=== PATIENT | female | born 2000 | race Caucasian/White ===

== ENCOUNTER → 2024-05-29 | Outpatient (CLI) | payer MEDICAID, SELFPAY ==
[2024-06-01 22:06] LABS: Chlamydia By Nucleic Acid AMP Negative (Negative); Gonococcus By Nucleic Acid AMP Negative (Negative)
== END | disposition home or self-care (01) ==
PROVIDERS: Referring Provider Registered Nurse; Visit Provider Registered Nurse
DX: Z34.00 Encounter for supervision of normal first pregnancy, unspecified trimester (principal)
CPT/HCPCS: 87077; 87086; 87088; 87186; 87491; 87591

== ENCOUNTER → 2024-06-19 | Outpatient (CLI) | payer MEDICAID, SELFPAY ==
[2024-06-19 15:12] LABS: Absolute Lymphocyte Count 3.09 X10^3/uL (0.83-4.51); Absolute Neutrophil Count 12.1 X10^3/uL (2.0-7.7); Basophil# 0.06 X10^3/uL; Basophil% 0.4 % (0-1); Eosinophil# 0.24 X10^3/uL; Eosinophils% 1.4 % (0-5); Hematocrit 39.3 % (37-47); Hemoglobin 12.9 g/dL (12.0-15.0); Lymphocyte # 3.09 X10^3/ul (0.83-4.51); Lymphocyte % 18.1 % (19-41); Mean Corp Hgb Conc 32.8 g/dL (32-36); Mean Corpuscular Hgb 29.7 pg (27.0-32.0); Mean Corpuscular Volume 90.6 fL (81-99); Mean Platelet Vol. 11.5 fl (6.2-12.0); Monocyte# 1.47 X10^3/uL; Monocyte% 8.6 % (0-10); NRBC Flagged by Analyzer 0 % (0-5); Neutrophil # 12.08 X10^3/uL (2.7-7.7); Platelet Count 424 K/mm3 (150-450); RBC Distribution Width CV 13.5 % (11.6-14.6); RBC Distribution Width SD 45.9 fl (35.1-43.9); Red Blood Count 4.34 M/mm3 (4.2-5.4)
[2024-06-19 16:06] LABS: HIV - WCH Non-Reactive (Nonreactive); Hepatitis B Surface Antigen Non-Reactive (Nonreactive); Hepatitis C Antibody Non-Reactive (Nonreactive); Rubella IgG Non-Reactive (Nonreactive); Syphilis Antibodies Non-reactive
== END | disposition home or self-care (01) ==
LOC: BWCLAB 13:31
PROVIDERS: Referring Provider Registered Nurse; Visit Provider Registered Nurse
DX: Z34.00 Encounter for supervision of normal first pregnancy, unspecified trimester (principal)
CPT/HCPCS: 36415; 85025; 86703; 86762; 86780; 86803; 86850; 86900; 86901; 87340

== ENCOUNTER 2024-09-22 16:45 | Observation (INO) | payer MEDICAID, SELFPAY ==
[2024-09-22 16:37] VITALS: BP 109/61; PULSE 82; RESP 14; TEMP 37.2; O2SAT 100
[2024-09-22 17:21] VITALS: BMI 22.8
--- NOTE | 2024-09-22 17:35 | HP.PCM.OB_ITS ---
HPI - General General Date of Admission: 09/22/24 HPI Narrative AIMEE REDDY, is a 24 y/o @ 24 weeks 5 days who presents to [facility] from [facility] with the diagnosis of acute pyelonephritis in . This was based on an elevated WBC count, 4+ bacteria in the urine, and fevers at home. She also has lower back pain and right upper back pain. She denies nausea, vomiting, diarrhea, shortness of breath, or chest pain. Maternal Data Information TERESITA Calculator Estimated Delivery Date Method Current WG Current Estimate 01/07/25 Ultrasound #1 24w 5d Other Estimates 12/29/24 LMP (Certain) 26w 0d PFSH PFSH Home Medications ?Medication ?Instructions ?Recorded ?Last Taken ?Type PNV 153-FA 400 mcg-om3 35 mg-dha tab PO 04/25 07/17 Unknown History 25 mg-epa 5 mg-fish oil chew tablet ondansetron 4 mg disintegrating 4 mg PO Q4H PRN nausea and 07/01/24 09/20/24 Rx tablet vomiting #60 tabs acetaminophen 325 mg tablet 650 mg PO Q4H PRN pain 07/1809/22/24 06:00 History (Tylenol) Allergy/AdvReac Type Severity Reaction Status Date / Time No Known Allergies Allergy Verified 09/22/24 16:43 Surgical History History of splenectomy Social History adopted: No household members: family current occupational status: employed current occupation: [employer] pets and animals: Yes pets and animals: dog(s) history of recent travel: No sexually active: Yes Smoking Status: Former smoker Electronic Cigarette Use: with nicotine alcohol intake: current alcohol intake frequency: a few times a month details: not while substance use type: does not use well-balanced diet: daily or most days caffeine: No eating out: 1-3 times/week during the past year weight has: remained stable what type of physical activity do you participate in: none ana m/moravian: Episcopal seatbelt use: always do you feel safe at home: Yes additional social history: [place]- [employer] History 1 Elective abortions Hx Para 0 Spontaneous abortions Hx # Term Pregnancies Ectopic pregnancies Hx # Pregnancies Multiple births # of living children Visit Details Expected Delivery Route/Plan Labor Preferences- CB/BF classes: enc labor support person: [] labor intervention preferences: [] pain management options preferred: [] cut cord/dad catch: [] : [] PP control planned: [] discussed possible routes of delivery and associated risks: [] special requests: [] Plans Covid status: [] Flu vaccine: [] Tdap vaccine: [] Rhogam: [] LARC form signed: [] Problem list reviewed and updated with the most current plan of care details and appropriate orders placed. Relevant counseling for the gestational age provided. Continue routine care and follow up unless otherwise noted in visit notes/problem list details OB Flowsheet Initial Weight: 125 lb Date -?-?-?-?-?-?-?-?-?-?-?-?- EGA Weight BP Urine Prot -?-?-?-?-?-?-?-?-?-?-?-?- Glucose FHR FuHt Pres Dilation -?-?-?-?-?-?-?-?-?-?-?-?- Effaced St Visit Note 05/29/24 -?-?-?-?-?-?-?-?-?-?-?-?- 8w 1d 125 lb 4 oz (+4 oz) 127/76 -?-?-?-?-?-?-?-?-?-?-?-?- 166 -?-?-?-?-?-?-?-?-?-?-?-?- LC CRL 1.62 not con with LMP. LMP changed to 01/07/2025. desires nipt/carrier screening. will return in 2 weeks. 07/01/24 -?-?-?-?--?-?-?-?-?-?-?-?- 12w 6d 124 lb 6 oz (-10 oz) 107/61 Negative -?-?-?-?-?-?-?-?-?-?-?-?- Negative 145 -?-?-?-?-?-?-?-?-?-?-?-?- MH-No VB. Nausea problematic. Gayle sent. 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 Br US confirm FHT 07/28/24 -?-?-?-?-?-?-?-?-?-?-?-?- 16w 5d 127 lb (+2 lb) 112/70 Negative -?-?-?-?-?-?-?-?-?-?-?-?- Negative 142 -?-?-?-?-?-?-?-?-?-?-?-?- JV- no complaint s today other than FOB needs labs for CF. 08/26/24 -?-?-?-?-?-?-?-?-?-?-?-?- 20w 6d 129 lb (+4 lb) 108/62 Negative -?-?-?-?-?-?-?-?-?-?-?-?- Negative 135 -?-?-?-?-?-?-?-?-?-?-?-?- SM- no vb lof go od fm no reuglar ctx 09/22/24 -?-?-?-?-?-?-?-?-?-?-?-?- 24w 5d 137 lb 4 oz (+12 lb 4 oz) 98/60 Negative -?-?-?-?-?-?-?-?-?-?-?-?- Negative 138 -?-?-?-?-?-?-?-?-?-?-?-?- MH-No VB, LOF. G ood FM. ROS Constitutional Constitutional: Denies change in weight, fatigue, fever(s), headache(s), poor appetite or weakness Eyes Eyes: Denies blurry vision, change in vision, seeing flashes or spots in vision ENT HEENT: Denies dizziness, headache(s), loss taste/smell or sore throat Cardiovascular Cardiovascular: Denies chest pain, dizziness, dyspnea, irregular heart rhythm, leg edema, palpitations, rapid heart rate or vomiting Respiratory/Chest Respiratory/Chest: Denies chest tightness, cough, dyspnea or breast pain Gastrointestinal Gastrointestinal: Denies abdominal pain, anorexia, constipation, cramping, diarrhea, hemorrhoids, vomiting or weight changes Genitourinary Genitourinary: Denies dysuria, flank pain, genital lesions, genital pain, urinary frequency or urinary urgency Musculoskeletal Musculoskeletal: Denies back pain, difficulty walking, joint pain, limited range of motion, muscle cramps or numbness Integumentary Integumentary: Denies lesions or unusual bruising Neurologic Neurologic: Denies abnormal movements, abnormal speech, dizziness, numbness, seizure-like activity or syncope Psychiatric Psychiatric: Denies anxiety, behavioral changes, change in appetite, change in libido, cognitive impairment, confusion, depression, difficulty concentrating, hallucinations or suicidal thoughts Endocrine Endocrinology: Denies excessive sweating, polydipsia or polyuria Hematologic/Lymphatic Hematologic/Lymphatic: Denies easy bleeding, easy bruising or lymphadenopathy Allergic/Immunologic Allergic/Immunologic: Denies itchy eyes, lip swelling, seasonal rhinorrhea, rhinitis, throat swelling, tongue swelling, eczemia, wheezing or asthma Vital Signs Vital Signs Vital Signs: 09/22/24 16:37 09/22/24 16:37 Pulse Rate 82 Blood Pressure 109/61 BP Systolic 109 BP Diastolic 61 Physical Exam Const alert, oriented x3, no apparent distress and healthy appearing General Appearance: cooperative; Negative for anxious HEENT normocephalic Face and Sinus: normal facial exam Eyes EOMs intact bilaterally and no scleral icterus General Eye: normal appearance of both eyes Neck full ROM and supple Lymph Lymphatic: no lymphadenopathy noted Resp normal respiratory effort Effort and Inspection: able to speak in complete sentences GI soft to palpation and non-tender Inspection: gravid Palpation: soft; Negative for tender Back/Spine General Back: CVA tenderness right and warmth Extremity normal to inspection, full ROM and no clubbing, cyanosis or edema General Extremity: Negative for calf tenderness or edema Skin Lesions: no lesions Rashes: no rashes Psych mental status grossly normal Labs Labs Labs: Blood Type O POSITIVE Antibody Screen NEGATIVE Hct 39.3 % (37-47) Hgb 12.9 g/dL (12.0-15.0) Syphilis Total Ab Non-reactive Rubella IgG Antibody Non-Reactive (Nonreactive) Hep Bs Antigen Non-Reactive (Nonreactive) Hepatitis C Antibody Non-Reactive (Nonreactive) Chlamydia DNA (CONOR) Negative (Negative) N.gonorrhoeae DNA (CONOR) Negative (Negative) HIV 1&2 Antibody Non-Reactive (Nonreactive) Assessment & Plan (1) Pyelonephritis affecting : PLAN: continue rochephin 1 gram q 24 hrs unsure if urine culture was sent at [facility] - will order repeat rpt cbc in am pyelo in increases risks for ARDS and labor - continuous monitoring ordered. tylenol for fever and headache flexeril for back pain goal is to remain afebrile for 24 hours and see a lowering in the WBC count in the am. If both happen and pain subsides will discharge to home tomorrow evening. q 4 hr vitals normal diet bathroom privileges scds (2) Cystic fibrosis carrier: COMMENT: FOB neg. 06/04 (3) Supervision of normal first : QUALIFIERS: Trimester: second trimester Qualified Code(s): Z34.02 - Encounter for supervision of normal first , second trimester COMMENT: [id number], TERESITA 12/29/24, girl Guerrero Gutierrez (4) : QUALIFIERS: Weeks of gestation: 20 weeks Qualified Code(s): Z3A.20 - 20 weeks gestation of COMMENT: LR NIPT Carrier Neg. Carrier for Cystic Fibrosis;FOB Karen Merino negative
[2024-09-22 18:00] VITALS: TEMP 37.9
[2024-09-22] MEDS: Acetaminophen 500 MG Tablet 1000 MG PO (18:00)
[2024-09-22] MEDS: Lactated Ringers 1,000 ML 150 ML IV (18:01)
[2024-09-22 19:58] VITALS: BP 109/59; PULSE 83
[2024-09-22 19:59] VITALS: PULSE 86; O2SAT 97
[2024-09-22 20:00] VITALS: TEMP 37.2
[2024-09-22] MEDS: cycloBENZAPRine HCl 5 MG TABLET PO (20:17)
[2024-09-23] VITALS (9 sets, daily range): BP systolic 77–109; BP diastolic 39–60; PULSE 67–80; RESP 12–16; TEMP 36.4–37.4; O2SAT 100
[2024-09-23] MEDS: Lactated Ringers 1,000 ML 150 ML IV ×2 (00:24→11:49)
[2024-09-23 06:21] LABS: Basophil# 0.06 X10^3/uL; Eosinophil# 0.28 X10^3/uL; Hemoglobin 9.4 g/dL (12.0-15.0); Lymphocyte # 2.88 X10^3/ul (0.83-4.51); Mean Corp Hgb Conc 33.6 g/dL (32-36); Mean Corpuscular Hgb 30.7 pg (27.0-32.0); Mean Corpuscular Volume 91.5 fL (81-99); Mean Platelet Vol. 11.9 fl (6.2-12.0); Monocyte# 1.98 X10^3/uL; NRBC Flagged by Analyzer 0 % (0-5); Neutrophil # 13.19 X10^3/uL (2.7-7.7); POSITIVE DIFFERENTIAL YES; POSITIVE MORPHOLOGY YES; Platelet Count 336 K/mm3 (150-450); RBC Distribution Width CV 13.8 % (11.6-14.6); RBC Distribution Width SD 46.9 fl (35.1-43.9); Red Blood Count 3.06 M/mm3 (4.2-5.4); White Blood Count 18.6 K/mm3 (4.4-11.0)
--- NOTE | 2024-09-23 06:59 | PN.OBGYN_ITS ---
Subjective Subjective feeling better no back pain no vb lof good fm some shoulder pain Objective Data Objective Data Vital Signs: Vital Signs Temp Pulse Resp BP Pulse Ox 98.5 F 71 16 101/58 L 97 09/23/24 05:05 09/23/24 05:04 09/23/24 05:05 09/23/24 05:04 09/22/24 19:59 Weight: 133 lb Body Mass Index (BMI) 22.8 Intake & Output: Intake and Output for Last 24 Hours 09/21/24 09/22/24 09/23/24 23:59 23:59 23:59 Intake Total 957.5 / 957.5 Balance 957.5 / 957.5 Lab / Micro Data 09/23/24 05:55 ROS Constitutional Constitutional: Reports systems reviewed and no addt'l complaints, except as documented Gastrointestinal Gastrointestinal: Reports as per HPI Physical Exam Const alert, oriented x3 and no apparent distress HEENT Head and Scalp: normocephalic and atraumatic Neck full ROM and no lymphadenopathy Chest inspection of chest normal Resp normal respiratory effort NST FHR Rate Baby A Baseline: 140 Uterine Activity:: no regular Assessment & Plan (1) Pyelonephritis affecting : COMMENT: ceftriaxone x 2 days then keflex x 10 days, then daily keflex prophylaxis. (2) Supervision of normal first : QUALIFIERS: Trimester: second trimester Qualified Code(s): Z34.02 - Encounter for supervision of normal first , second trimester COMMENT: [id number], TERESITA 12/29/24, girl Guerrero Gutierrez (3) : QUALIFIERS: Weeks of gestation: 20 weeks Qualified Code(s): Z 3A.20 - 20 weeks gestation of COMMENT: LR NIPT Carrier Neg. Carrier for Cystic Fibrosis;FOB Karen Wilber negative PLAN: Plan monitor for being afebrile fro 24 hours and c home on antibiotics Charges/Coding Visit Charges Inpatient E&M: 74994 Disch Hosp
[2024-09-23 07:48] LABS: Differential Indicated SCAN CRITERIA MET
[2024-09-23 08:00] LABS: Eosinophil 2 % (0-5); Monocyte 9 % (0-10); Neutrophil-Band 3 % (0-5); Neutrophil-Segmented 74 % (47-70)
[2024-09-23 08:02] LABS: Anisocytosis 1+; Platelet Estimate ADEQUATE (ADEQ); Polychromasia 1+
--- NOTE | 2024-09-23 08:02 | US_ITS ---
EXAM: US Pelvis Transabdominal, Complete CLINICAL INDICATION: GROWTH TECHNIQUE: Real-time complete transabdominal pelvic ultrasound with image documentation. COMPARISON: No relevant prior studies available. FINDINGS: UTERUS/CERVIX: Unremarkable. Normal endometrial stripe thickness. No myometrial mass. RIGHT OVARY: Unremarkable. No mass. Normal blood flow. LEFT OVARY: Unremarkable. No mass. Normal blood flow. FREE FLUID: No free fluid. BLADDER: Unremarkable as visualized. Wall is normal thickness for degree of distention. OTHER FINDINGS: Breech presentation. heart rate 157 beats per minute. WEN within normal limits. Maximum vertical pocket is 6.4 cm. Anterior placenta. Grade 0. BPD 6.0 cm. OFD 8.0 cm. HC 22.7 cm. AC 20.6 cm. FL 4.5 cm. FL/AC 22%. FL/BPD 75%. FL/HC 20 %. CI 75%. HC/AC 1.10. Estimated weight 761 g. Gestational age 24 weeks and 5 days. TERESITA 01/08/2025. US/OB Limited With Biometrics IMPRESSION: A single live intrauterine as above. [facility]
[2024-09-23 08:04] LABS: Lymphocyte 12 % (19-41)
[2024-09-23 08:09] LABS: Scan Smear per Review Criteria MANUAL DIFF
[2024-09-23 08:11] LABS: Absolute Lymphocyte Count 2.23 X10^3/uL (0.83-4.51)
[2024-09-23 08:13] LABS: Absolute Neutrophil Count 14.3 X10^3/uL (2.0-7.7)
[2024-09-23] MEDS: Acetaminophen 500 MG Tablet 1000 MG PO (11:49)
[2024-09-23] MEDS: Ceftriaxone 1 GM/50 ML BAG IV (13:43)
[2024-10-12 16:10] LABS: Pathologist Review Reviewed
== END 2024-09-23 14:35 | disposition home or self-care (01) | DRG 566 ==
LOC: WPOUT 09-23 09:03 → WP 09-23 09:09
PROVIDERS: Admitting Provider Obstetrics & Gynecology; Referring Provider Obstetrics & Gynecology; Visit Provider Obstetrics & Gynecology
DX: O23.02 Infections of kidney in pregnancy, second trimester (principal); Z14.1 Cystic fibrosis carrier; Z3A.24 24 weeks gestation of pregnancy; Z87.891 Personal history of nicotine dependence
CPT/HCPCS: 96365; 96361 ×2; 36415; 59025; 59050; 76816; 85025; 99221; G0378

== ENCOUNTER → 2024-10-13 | Outpatient (CLI) | payer MEDICAID, SELFPAY ==
[2024-10-13 14:08] LABS: Absolute Lymphocyte Count 3.25 X10^3/uL (0.83-4.51); Absolute Neutrophil Count 12.2 X10^3/uL (2.0-7.7); Basophil# 0.15 X10^3/uL; Basophil% 0.8 % (0-1); Eosinophil# 0.37 X10^3/uL; Hematocrit 30.7 % (37-47); Hemoglobin 10.3 g/dL (12.0-15.0); Lymphocyte # 3.25 X10^3/ul (0.83-4.51); Mean Corp Hgb Conc 33.6 g/dL (32-36); Mean Corpuscular Hgb 29.9 pg (27.0-32.0); Mean Corpuscular Volume 89.2 fL (81-99); Mean Platelet Vol. 12.3 fl (6.2-12.0); Monocyte# 1.58 X10^3/uL; Monocyte% 8.8 % (0-10); NRBC Flagged by Analyzer 0.1 % (0-5); Neutrophil # 12.15 X10^3/uL (2.7-7.7); Neutrophil % 67.4 % (47-70); POSITIVE DIFFERENTIAL YES; Platelet Count 351 K/mm3 (150-450); RBC Distribution Width CV 13.2 % (11.6-14.6); Red Blood Count 3.44 M/mm3 (4.2-5.4); White Blood Count 18.1 K/mm3 (4.4-11.0)
[2024-10-13 14:19] LABS: Differential Indicated SCAN CRITERIA MET
[2024-10-13 15:29] LABS: Glucose Challenge Gest 1H 50g 115 mg/dL (70-140); HIV Nonreactive (Nonreactive); Syphilis Antibodies Nonreactive (Nonreactive)
[2024-10-13 16:45] LABS: Acanthocytes RARE; Anisocytosis 1+; Atypical Lymphocyte 1+ %
== END | disposition home or self-care (01) ==
LOC: LAB 13:38
PROVIDERS: Referring Provider Nurse Practitioner Women's Health; Visit Provider Nurse Practitioner Women's Health
DX: Z34.02 Encounter for supervision of normal first pregnancy, second trimester (principal)
CPT/HCPCS: 36415; 82950; 85025; 86703; 86780

== ENCOUNTER → 2024-10-15 | Outpatient (CLI) | payer MEDICAID, SELFPAY | END | disposition home or self-care (01) | LOC: LABSPEC 11:16 | PROVIDERS: Referring Provider Nurse Practitioner Women's Health; Visit Provider Nurse Practitioner Women's Health | DX: O23.00 Infections of kidney in pregnancy, unspecified trimester (principal); Z3A.00 Weeks of gestation of pregnancy not specified | CPT/HCPCS: 87086 ==

== ENCOUNTER → 2024-11-25 | Outpatient (CLI) | payer MEDICAID, SELFPAY ==
[2024-11-25 12:32] LABS: Absolute Neutrophil Count 10.6 X10^3/uL (2.0-7.7); Basophil% 0.6 % (0-1); Eosinophil# 0.49 X10^3/uL; Eosinophils% 3.1 % (0-5); Hematocrit 31.9 % (37-47); Hemoglobin 10.6 g/dL (12.0-15.0); Lymphocyte % 19.4 % (19-41); Mean Corp Hgb Conc 33.2 g/dL (32-36); Mean Corpuscular Hgb 29.6 pg (27.0-32.0); Mean Corpuscular Volume 89.1 fL (81-99); Mean Platelet Vol. 12.6 fl (6.2-12.0); Monocyte# 1.49 X10^3/uL; Monocyte% 9.3 % (0-10); NRBC Flagged by Analyzer 0 % (0-5); Neutrophil # 10.56 X10^3/uL (2.7-7.7); Neutrophil % 65.9 % (47-70); Platelet Count 338 K/mm3 (150-450); RBC Distribution Width CV 13.6 % (11.6-14.6); Red Blood Count 3.58 M/mm3 (4.2-5.4)
== END | disposition home or self-care (01) ==
PROVIDERS: Referring Provider Nurse Practitioner Women's Health; Visit Provider Nurse Practitioner Women's Health
DX: O99.019 Anemia complicating pregnancy, unspecified trimester (principal); Z3A.00 Weeks of gestation of pregnancy not specified
CPT/HCPCS: 36415; 85025

== ENCOUNTER → 2024-12-11 | Outpatient (CLI) | payer MEDICAID, SELFPAY ==
--- NOTE | 2024-12-11 15:31 | US_ITS ---
PROCEDURE: OB LIMITED WITH BIOMETRICS 12/11/2024 REASON FOR EXAM: GROWTH TECHNIQUE: OB LIMITED WITH BIOMETRICS COMPARISON: Prior study dated September 23, 2024. FINDINGS Number: 1 Position: Vertex Placental Position: Anterior and not low-lying. Placental Abnormalities: No evidence of previa. DIMENSIONS: Biparietal Diameter: 8.6 cm: 34 weeks and 6 days: 22nd percentile./ Head Circumference: 32.1 cm: 36 weeks and 1 day: 21st percentile/ Abdominal Circumference: 32 cm: 35 weeks and 5 days: 49 percentile/ Femur Length: 6.9 cm: 35 weeks and 4 days: 30 percentile./ ESTIMATED WEIGHT: 2731 g plus/-410 g ESTIMATED WEIGHT PERCENTILE (24+ weeks): 38 ESTIMATED GESTATIONAL AGE: Baseline: 36 weeks and 1 day By Ultrasound: 36 weeks and 0 day ESTIMATED DATE OF DELIVERY: Baseline: January 07, 2025 By Ultrasound: January 08, 2025. BIOPHYSICAL ASSESSMENT: Amniotic Fluid Volume: 4.8 Amniotic Fluid Index: 11.8 (8-24 cm normal range) Cardiac Motion: 130 beats per minute (average) Trunk and Limb Motion: Present. MATERNAL ANATOMY: Adnexa: Neither maternal ovary is successfully identified. US/OB Limited With Biometrics IMPRESSION: Single live intrauterine gestation with a mean gestational age of 36 weeks and 1 day. The measurements obtained today fall with the normal expected range. Reading Location: [id number]
== END | disposition home or self-care (01) ==
LOC: US 15:29
PROVIDERS: Referring Provider Obstetrics & Gynecology; Visit Provider Obstetrics & Gynecology
DX: O26.849 Uterine size-date discrepancy, unspecified trimester (principal); Z3A.00 Weeks of gestation of pregnancy not specified
CPT/HCPCS: 76816

== ENCOUNTER → 2024-12-15 | Outpatient (CLI) | payer MEDICAID, SELFPAY | END | disposition home or self-care (01) | LOC: LABSPEC 13:41 | PROVIDERS: Referring Provider Obstetrics & Gynecology; Visit Provider Obstetrics & Gynecology | DX: Z34.03 Encounter for supervision of normal first pregnancy, third trimester (principal) | CPT/HCPCS: 87081 ==

== ENCOUNTER 2025-01-11 20:50 | Outpatient (CLI) | payer MEDICAID, SELFPAY ==
[2025-01-11 20:56] VITALS: BMI 26.1
[2025-01-11 21:04] VITALS: BP 122/77; PULSE 79
[2025-01-11 21:05] VITALS: RESP 16; TEMP 36.8
--- OUTSIDE RECORDS SUMMARY | 2025-01-11 21:32 | XMS RPT_ITS | CCD ---
Author Organization [facility] Care Team Providers Care City Maintenance Manager Name Role Phone Jennifer Haley Primary Care Provider Unavailable Primary Care Provider UnavailJennifer Gil Primary Care Provider RIC LANTIGUA Attending Unavailable Beth, Jennifer Singleton Unavailable Arianna Wyatt Unavailable Unavailable JENNIFER HALEY Attending Unavailable JENNIFER HALEY Primary Care Unavailable Britt Aguilar Primary Care Physician [phone] JULIETH WATTERS Admitting Unavailable JENNIFER HALEY Primary Care Unavailable No, Physician Primary Care Provider UnavailJia Andrew Unavailable [place], . Jennifer Singleton Primary Care Unavaila Jenn Walsh Attending Unavailab Kevin Alexander Attending Unavailable [place], . Jennifer M Primary Care Unavaila Kevin Kamara Attending Unavailable Spring, Ms. Jennifer Singleton Primary Care Unavaila adore Lindsay, Ms. Jia Mckeon Attending Unava ilable Spring, Ms. Jennifer Singleton Primary Care Unavaila Kevin Kamara Unavailable Unavailable DANIELLE VOSS Referring Unava ilable DANIELLE VOSS Attending Unava ilable NO, PHYSICIAN Primary Care Unavailable MICHAEL ADAMSON Attending Unavailable RAMYA VOSS Referring Unavailable [facility], [facility] [place] Unavailable [place] SPECIAL EFFECTS PERSON - Jennifer MADERA Primary Care Pro vider Kassi Ontiveros CNM Attending Provider Kassi Ontiveros CNM Referring Provider Bipin MARIONCRamya Attending Provider Joce Caldera DO, Dr. Le Attending Provider Jacqueline VERDE, Dr. Galvez Attending Provider [phone] Joce Caldera DO, Dr. Le Admit Provider [phone] Joce Caldera DO, Dr. Le Referring Provider Joce Caldera DO, Dr. Le Other Provider [phone] JAMARI DELGADILLO Attending Unavailable SPRING, JENNIFER MKajal Primary Care Unavailable JAMARI DELGADILLO Attending Unavailable SPRINGJENNIFER MKajal Primary Care Unavailable SANDRA CHURCH Attending Unavailabl e NO, PHYSICIAN Primary Care Unavailable JUAN RG Attending Unavailab le NO, PHYSICIAN Primary Care Unavailable NO, PHYSICIAN Primary Care Unavailable DANIELLE VOSS Attending Unava ilable Care Physician, No Primary Primary Care Provider Unavailable Bipin MARIONCRamya Referring Provider Care Physician, No Primary Referring Provider Un available Bipin MILES-CRamya Attending Provider Yvrose Mcmillan CNM Attending Provider [phone] Joce Caldera DO, Dr. Le Attending Provider Dr. Leonor Phillips MD Referring Provider Jacqueline VERDE, Dr. Galvez Attending Provider [phone] Ramya Voss NP Attending Unavailable Care Physician, No Primary Referring Unava ilable Mimi Thomas Attending Unavailabl e Care Physician, No Primary Primary Care Unava ilable Joce Caldera, Mimi Attending Unavailabl e Vande Velde, Mimi Consulting Unavailabl e Vande Velde, Mimi Admitting Unavailabl e Vande Velde, Mimi Referring Unavailabl e Vande Velde, Mimi Consulting Unavailabl e Vande Velde, Mimi Admitting Unavailabl e Vande Velde, Mimi Referring Unavailabl e Leonor Phillips Attending Unavailable Kassi Ontiveros Referring Unavailable Kassi Ontiveros Attending Unavailable Vande VeldeMimi Attending Unavailabl e Vande Velearnest, Mimi Admitting Unavailabl e Vande Velearnest, Mimi Referring Unavailabl e Care Physician, No Primary Primary Care Unava ilable [place] AUXILIARY ENGINEER, Ramya Attending Unavailable Bipin AUXILIARY ENGINEER, Ramya Referring Unavailable Bipin AUXILIARY ENGINEER, Ramya Referring Unavailable [place] AUXILIARY ENGINEER, Ramya Attending Unavailable Care Physician, No Primary Primary Care Unava ilable Kassi Ontiveros Attending Unavailable Mercedez Justin Attending Unavailable Care Physician, No Primary Referring Unava ilable Bipin AUXILIARY ENGINEER, Ramya Attending Unavailable Care Physician, No Primary Primary Care Unava ilable Care Physician, No Primary Referring Unava ilable Care Physician, No Primary Primary Care Unava ilable Bipin AUXILIARY ENGINEER, Ramya Attending Unavailable Care Physician, No Primary Referring Unava ilable Care Physician, No Primary Primary Care Unava ilable Yvrose Mcmillan Attending Unavailable Care Physician, No Primary Referring Unava ilable Leonor Phillips Attending Unavailable Care Physician, No Primary Primary Care Unava ilable Care Physician, No Primary Referring Unava ilable Leonor Phillips Attending Unavailable Care Physician, No Primary Primary Care Unava ilable Care Physician, No Primary Referring Unava ilable Care Physician, No Primary Primary Care Unava ilable Leonor Phillips Attending Unavailable Care Physician, No Primary Primary Care Unava ilable Care Physician, No Primary Referring Unava ilable Mimi Thomas Attending Unavailabl e Care Physician, No Primary Primary Care Unava ilable [place] AUXILIARY ENGINEER, Ramya Attending Unavailable [place] AUXILIARY ENGINEER, Ramya Referring Unavailable Care Physician, No Primary Primary Care Unava ilable Leonor Phillips Attending Unavailable MarcLeonor oden Referring Unavailable Care Physician, No Primary Primary Care Unava ilable Marcanthony, Leonor Referring Unavailable Leonor Phillips Attending Unavailable Care Physician, No Primary Primary Care Unava ilable Care Physician, No Primary Referring Unava ilable Mimi Thomas Attending Unavailabl e Kassi Ontiveros Referring Unavailable Kassi Ontiveros Attending Unavailable Care Physician, No Primary Primary Care Unava ilable Care Physician, No Primary Referring Unava ilable Mimi Thomas Attending Unavailabl e [place] AUXILIARY ENGINEER, Ramya Attending Unavailable Traceee Velearnest, Mimi Attending Unavailabl e MarcanthLeonor reed Attending Unavailable Medications Current Medications Medication Drug Class(es) Dates Sig (Normalized) Sig (Original) acetaminophen 325 mg oral tablet (16 sources) Start: 09-22-2024 take 2 tablets by mouth every four hours as needed for pain Acetaminophen (Tylenol) 325 mg tablet Active 650 mg PO Q4H as needed for pain September 22, 2024 12:00am Start: 11-05-2018 End: 11-09-2018 take 1 tablet by mouth every six hours as needed acetaminophen (TYLENOL) tablet 650 mg Start: 11-05-2018 End: 11-05-2018 acetaminophen (TYLENOL) tabl et 975 mg take 1 tablet by naomi th every six hours as needed for pain acetaminophen (TYLENOL) 500 MG tablet Take 1 tablet by mouth every 6 hours as needed for Pain Active acetaminophen 325 mg / oxyCODONE hydrochloride 5 mg oral tablet (4 sources) Opioid Agonist Start: 11-09-2018 End: 11-16-2018 take 1 tablet by mouth three times daily as needed for pain, then take 7 tablets by mouth as needed for pain oxyCODONE-acetaminophen (PERCOCET) 5-325 mg per tablet Indications: Acute UTI Take 1 (one) tablet by mouth 3 (three) times a day as needed for pain (Days supply per fill: 7) . 20 tablet 0 11/09/2018 11/16/2018 Active Start: 11-07-2018 End: 11-09-2018 take 1 tablet by mouth every six hours as needed oxyCODONE-acetaminophen (PERCOCET) 5-325 mg per tablet 1 tablet amoxicillin 875 mg / clavulanate 125 mg oral tablet (2 sources) Penicillin-class Antibacterial Start: 11-20-2022 End: 11-26-2022 take 1 tablet by mouth twice daily at mealtime amoxicillin-clavulanate 875 mg-125 mg oral tablet ; 1 tab(s) orally 2 times a day Quantity: 14 Refills: 0 Ordered: 20-Nov-2022 Kevin Almeida Start: 20-Nov-2022 End: 26-Nov-2022 Generic Substitution Allowed Comments: Finish all this medication unless otherwise directed by prescriber.Take with food or milk. Start: 03-21-2020 End: 03-30-2020 take 1 tablet by mouth twice daily at mealtime amoxicillin-clavulanate 875 mg-125 mg oral tablet ; 875 milligram(s) orally 2 times a day Quantity: 20 Refills: 0 Ordered: 21-Mar-2020 Ronald Whitt Start: 21-Mar-2020 End: 30-Mar-2020 Generic Substitution Allowed Comments: Finish all this medication unless otherwise directed by prescriber.Take with food or milk. Comment on above: Finish all this medi cation unless otherwise directed by prescriber.Take with food or milk. cetirizine hydrochloride 10 mg oral tablet (16 sources) Histamine-1 Receptor Antagonist Start: 04-08-20 17 take 1 tablet by mouth once daily cetirizine (ZYRTEC) 10 MG tablet Take 1 (one) tablet (10 mg total) by mouth daily . 04/08/2017 Active cetirizine Quant ity: 0 Refills: 0 Ordered: 07-Mar-2023 Erika Rutherford Generic Substitution Allowed ciprofloxacin 3 mg/ml ophthalmic solution (4 sources) Quinolone Antimicrobial Start: 11-20-2022 take 2 drop(s) into the eye(s) twice daily ciprofloxacin 0.3% ophthalmic solution ; 2 drop(s) in each affected eye 2 times a day x 3 days Quantity: 5 Refills: 0 Ordered: 20-Nov-2022 Kevin Almeida Start: 20-Nov-2022 Generic Substitution Allowed Comments: For the eye. Start: 11-09-2018 End: 11-19-2018 take 1 tablet by mouth twice daily ciprofloxacin HCl (CIPRO) 500 MG tablet Take 1 (one) tablet (500 mg total) by mouth 2 (two) times a day for 10 days . 20 tablet 0 11/09/2018 11/19/2018 Active Comment on above: For the eye. ferrous sulfate 325 mg oral tablet (7 sources) Start: 025 take 1 tablet by mouth once daily Ferrous Sulfate 325 mg (65 mg iron) tablet Active 325 mg PO daily December 09, 2024 12:00am metroNIDAZOLE 500 mg oral tablet (1 source) Nitroimidazole Antimicrobial Start: 023 End: 023 take 1 tablet by mouth twice daily at mealtime metroNIDAZOLE (FLAGYL) 500 MG tablet Indications: Acute vaginitis Take 1 (one) tablet (500 mg total) by mouth 2 (two) times a day with meals for 7 days . 14 tablet 0 10/18/2022 10/25/2022 Active nitrofurantoin, macrocrystals 25 mg / nitrofurantoin, monohydrate 75 mg oral capsule (1 source) Nitrofuran Antibacterial Start: End: take 1 capsule by mouth twice daily Macrobid 100 mg Cap 100 mg = 1 cap(s), Oral, BID, X 5 day(s), # 10 cap(s), Refills(s) 0 Start Date: 01/27/22 Stop Date: 02/01/22 Status: Ordered Pnv No.[id number]-Dha-Epa -Fish 400 mcg-35 mg- 25 mg-5 mg tablet,chewable (13 sources) Start: Pnv No.529-Hp-[id number]-Dha-Ep a-Fish 400 mcg-35 mg- 25 mg-5 mg tablet,chewable Active {tbl} PO May 14, 2024 1:00am Start: 05-14-2024 Pnv No.153-Fa- Rb3-Gev-Ake-Fish 400 mcg-35 mg- 25 mg-5 mg tablet,chewable Active {tbl} PO May 14, 2024 1:00am predniSONE 20 mg oral tablet (2 sources) Start: 11-20-2022 End: 11-24-2022 take 1 tablet by mouth once daily at mealtime predniSONE 20 mg oral tablet ; 1 tab(s) orally once a day Quantity: 5 Refills: 0 Ordered: 20-Nov-2022 Kevin Almeida Start: 20-Nov-2022 End: 24-Nov-2022 Generic Substitution Allowed Comments: It is very important that you take or use this exactly as directed. Do not skip doses or discontinue unless directed by your doctor.Obtain medical advice before taking any non-prescription drugs as some may affect the action of this medication.Take with food or milk. Start: 03-21-2020 End: 03-23-2020 take 1 tablet by mouth twice daily at mealtime predniSONE 10 mg oral tablet ; 1 tab(s) orally 2 times a day Quantity: 6 Refills: 0 Ordered: 21-Mar-2020 Ronald Whitt Start: 21-Mar-2020 End: 23-Mar-2020 Generic Substitution Allowed Comments: It is very important that you take or use this exactly as directed. Do not skip doses or discontinue unless directed by your doctor.Obtain medical advice before taking any non-prescription drugs as some may affect the action of this medication.Take with food or milk. Comment on above: It is very important that you take or use this exactly as directed. Do not skip doses or discontinue unless directed by your doctor.Obtain medical advice before taking any non-prescription drugs as some may affect the action of this medication.Take with food or milk. MV-Min-Fe Fum-FA-DHA ( 1 PO) (2 sources) MV-Min-Fe Fum-FA-DHA ( 1 PO) Take 1 tablet by mouth daily Active sodium chloride flush 0.9 % injection 3 mL (1 source) Start: 12-16-19 sodium chloride flush 0.9 % injection 3 mL sulfamethoxazole 800 mg / trimethoprim 160 mg oral tablet (2 sources) Dihydrofolate Reductase Inhibitor Antibacterial, Sulfonamide Antimicrobial Start: 01-29-20 End: 02-05-20 take 1 tablet by mouth twice daily sulfamethoxazole -trimethoprim (BACTRIM DS,SEPTRA DS) 800-160 mg per tablet Take 1 (one) tablet by mouth 2 (two) times a day for 7 days . 14 tablet 0 01/28/2019 02/04/2019 Active Completed/Discontinued Medications Medication Drug Class(es) Dates Sig (Normalized) Sig (Original) calcium chloride 0.0014 meq/ml / potassium chloride 0.004 meq/ml / sodium chloride 0.103 meq/ml / sodium lactate 0.028 meq/ml injectable solution (3 sources) Start: 02-24-2019 End: 02-24-2019 lactated Ringers infusion Start: 02-24-2019 End: 02-24-2019 take 100 mL intravenous route every hour 100 mL/hr, Intravenous, Continuous, Starting Sat02/24/19 at 0900, PACU (only) Start: 01-27-2019 End: 01-28-2019 lactated Ringers infusion cefTRIAXone 1000 mg injection (2 sources) Cephalosporin Antibacterial Start: 01-28-2019 End: 01-28-2019 cefTRIAXone (ROCEPHIN) IVPB 1 g (premix) Start: 11-06-2018 End: 11-09-2018 cefTRIAXone (ROCEPHIN) IVPB 1 g (premix) cefTRIAXone (ROCEPHIN) 1,000 mg in sterile water 10 mL IV syringe (1 source) Start: 09-22-2024 End: 09-22-2024 take 100 mg intravenously once 1,000 mg, IntraVENous, ONCE, On Sat09/22/24 at 1415, For 1 dose, Administer as slow IV Push over 5 mins Reconstitute 1 g vials with 9.6 mL of designated diluent to produce a 100 mg/mL solution. cephalexin 500 mg oral capsule (20 sources) Cephalosporin Antibacterial Start: 09-23-2024 End: 10-14-2024 take 1 capsule by mouth twice daily Cephalexin 500 mg capsule Discontinued 500 mg PO TWICE A DAY 60 4 October 14, 2024 10:43am October 14, 2024 10:44am take twice daily for remainder of after completing initial course of antibiotics Start: 09-23-2024 End: 10-14-2024 take 1 capsule by mouth every six hours Cephalexin 500 mg capsule Discontinued 500 mg PO EVERY 6 HOURS 40 10 0 September 23, 2024 12:00am October 14, 2024 10:42am 20 ml fentaNYL 0.05 mg/ml injection (1 source) Opioid Agonist Start: 01-27-2019 End: 01-28-2019 fentaNYL (SUBLIMAZE) injection 25 mcg fluconazole 150 mg oral tablet (2 sources) Azole Antifungal Start: 01-28-2019 End: 02-04-2019 fluconazole (DIFLUCAN) 150 MG tablet TAKE 1 TABLET BY MOUTH A SINGLE DOSE 0 01/28/2019 02/04/2019 Discontinued (Therapy completed) Start: 01-28-2019 End: 01-28-2019 take 1 tablet by mouth once fluconazole (DIFLUCAN) 150 MG tablet Take 1 (one) tablet (150 mg total) by mouth once for 1 dose . 1 tablet 0 01/28/2019 01/28/2019 Active fluticasone propionate 0.05 mg/actuat metered dose nasal spray (1 source) Corticosteroid Start: 11-16-2021 End: 08-08-2024 fluticasone (FLONASE) 50 MCG/ACT nasal spray Indications: Acute non-recurrent pansinusitis 1 spray by Nasal route daily 1 each 1 11/16/2021 08/08/2024 Discontinued (LIST CLEANUP) 1 ml heparin sodium, porcine 5000 unt/ml injection (1 source) Unfractionated Heparin, Anti-coagulant Start: 11-05-2018 End: 11-09-2018 inject 5000 [IU] by subcutaneous injection every eight hours 5,000 Units, Subcutaneous, Every 8 hours scheduled, First dose on Sat11/05/18 at 2200 Notify physician if patient refuses. 1 ml HYDROmorphone hydrochloride 1 mg/ml cartridge (1 source) Opioid Agonist Start: 12-16-2019 End: 12-16-2019 HYDROmorphone (DILAUDID) injection 0.5 mg ibuprofen 400 mg oral tablet (7 sources) Nonsteroidal Anti-inflammatory Drug Start: 11-06-2018 End: 11-09-2018 take 1 tablet by mouth every six hours as needed ibuprofen (ADVIL,MOTRIN) tablet 400 mg Start: 09-10-2012 End: 02-24-2019 ibuprofen (ADVIL,MOTRIN) 200 MG tablet Take by mouth . 0 09/10/2012 02/24/2019 Discontinued (Stop Taking at Discharge) End: 11-09-2018 ibuprofen (ADVIL,MOTRIN) 200 MG tablet Take 400 mg by mouth as needed for pain . 0 11/09/2018 Discontinued (Stop Taking at Discharge) iopamidol (ISOVUE-370) 76 % injection 75 mL (1 source) Start: 01-28-2019 End: 01-28-2019 iopamidol (ISOVUE-370) 76 % injection 75 mL ketorolac tromethamine 10 mg oral tablet (6 sources) Nonsteroidal Anti-inflammatory Drug, Cyclooxygenase Inhibitor Start: 03-15-2024 End: 10-12-2024 take 1 tablet by mouth every six hours as needed ketorolac (TORADOL) 10 mg tablet Take 1 (one) tablet (10 mg total) by mouth every 6 (six) hours as needed . 12 tablet 03/15/2024 10/12/2024 Discontinued Start: 11-09-2018 End: 12-09-2018 take 1 tablet by mouth every six hours as needed ketorolac (TORADOL) 10 mg tablet Take 1 (one) tablet (10 mg total) by mouth every 6 (six) hours as needed for pain . 20 tablet 0 11/09/2018 12/09/2018 Active Start: 11-08-2018 End: 11-09-2018 take 15 mg intravenous route every six hours as needed ketorolac (TORADOL) injection 15 mg Start: 11-06-2018 End: 11-08-2018 take 30 mg intravenous route every six hours as needed ketorolac (TORADOL) injection 30 mg Medrol Dosepak 4 mg oral tablet (1 source) Start: 03-07-2023 Medrol Dosepak 4 mg oral tablet ; Take as directed. Quantity: 1 Refills: 0 Ordered: 07-Mar-2023 Kevin Almeida Start: 07-Mar-2023 Generic Substitution Allowed Comments: It is very important that you take or use this exactly as directed. Do not skip doses or discontinue unless directed by your doctor.Obtain medical advice before taking any non-prescription drugs as some may affect the action of this medication.Take with food or milk. Comment on above: It is very important that you take or use this exactly as directed. Do not skip doses or discontinue unless directed by your doctor.Obtain medical advice before taking any non-prescription drugs as some may affect the action of this medication.Take with food or milk. medroxyPROGESTERone (11 sources) Progestin End: 12-29-2019 medroxyprogesterone acetate (DEPO-PROVERA IM) Inject into the shoulder, thigh, or buttocks Every 3 months . 0 12/29/2019 Discontinued (Patient's Request) medroxyprogester one acetate (DEPO-PROVERA IM) Inject into the shoulder, thigh, or buttocks Every 3 months . 0 Active montelukast 10 mg oral tablet (9 sources) Leukotriene Receptor Antagonist Start: 04-08-2017 End: 12-29-2019 take 1 tablet by mouth once daily at bedtime montelukast (SINGULAIR) 10 mg tablet Take 10 mg by mouth every night at bedtime . 0 04/08/2017 12/29/2019 Discontinued (Patient's Request) naloxone (NARCAN) injection 0.1 mg (1 source) Start: 11-07-2018 End: 11-09-2018 naloxone (NARCAN) injection 0.1 mg ondansetron 4 mg disintegrating oral tablet (20 sources) Serotonin-3 Receptor Antagonist Start: 07-01-2024 End: 10-27-2024 take 1 tablet by mouth every four hours as needed for nausea and vomiting Ondansetron 4 mg tablet,disintegrat ing Discontinued 4 mg PO Q4H as needed for nausea and vomiting 60 2 July 01, 2024 1:00am October 27, 2024 9:27am Start: 07-22-2023 End: 10-12-2024 take 1 tablet by mouth every eight hours as needed for nausea ondansetron (ZOFRAN-ODT) 4 MG disintegrating tablet Dissolve 1 (one) tablet (4 mg total) on top of tongue every 8 (eight) hours as needed for nausea . 20 tablet 07/22/2023 10/12/2024 Discontinued Start: 12-16-2019 End: 12-16-2019 ondansetron (ZOFRAN) injecti on 4 mg Start: 02-24-2019 End: 02-24-2019 take 4 mg intravenous route every twenty-four hours as needed 4 mg, Intravenous, Once as needed, nausea, vomiting, Starting Sat02/24/19 at 0805, For 1 dose, PACU (only) Administer first as needed for nausea/vomiting, or as directed by anesthesia Start: 01-28-2019 End: 12-29-2019 take 1 tablet by mouth every eight hours as needed ondansetron (ZOFRAN ODT) 4 MG disintegrating tablet Dissolve 1 (one) tablet (4 mg total) on top of tongue every 8 (eight) hours as needed for nausea . 20 tablet 0 01/28/2019 12/29/2019 Discontinued (Patient's Request) Start: 01-27-2019 End: 01-28-2019 ondansetron (ZOFRAN) injecti on 4 mg Start: 11-05-2018 End: 11-09-2018 take 4 mg intravenous route every six hours as needed 4 mg, Intravenous, Every 6 hours PRN, nausea, vomiting, Starting Sat11/05/18 at 1737 take 1 tablet by naomi th every eight hours as needed for nausea ondansetron (ZOFRAN) 4 MG tablet Take 1 tablet by mouth every 8 hours as needed for Nausea or Vomiting Active pantoprazole 20 mg delayed release oral tablet (4 sources) Proton Pump Inhibitor Start: 03-02-2019 End: 03-01-2020 take 1 tablet by mouth twice daily pantoprazole (PROTONIX) 20 MG tablet Indications: Chronic gastritis without bleeding, unspecified gastritis type , GERD without esophagitis Take 1 (one) tablet (20 mg total) by mouth 2 (two) times a day . 60 tablet 11 03/02/2019 12/29/2019 Discontinued (Patient's Request) piperacillin 3000 mg / tazobactam 375 mg injection (2 sources) Penicillin-clas s Antibacterial, beta Lactamase Inhibitor Start: 11-05-2018 End: 11-06-2018 take 3.375 g intravenous route every eight hours piperacillin-tazob actam (ZOSYN) IVPB 3.375 g (premix) Start: 11-05-2018 End: 11-05-2018 piperacillin-tazobactam (ZOS YN) IVPB 4.5 g (premix) 2 ml prochlorperazine 5 mg/ml injection (1 source) Phenothiazine Start: 02-24-2019 End: 02-24-2019 take 5 mg intravenous route every twenty-four hours as needed 5 mg, Intravenous, Once as needed, nausea, Starting Sat02/24/19 at 0805, For 1 dose, PACU (only) Administer if ondansetron (Zofran), promethazine (Phenergan), and Metocolopramide (Reglan) ineffective or not ordered, or as directed by anesthesia, as needed for nausea/vomiting 50 ml sodium chloride 9 mg/ml injection (7 sources) Start: 12-16-2019 End: 12-16-2019 0.9 % sodium chloride bolus Start: 01-27-2019 End: 01-28-2019 sodium chloride 0.9% (NS) eulalio zachary 1,000 mL Start: 01-27-2019 End: 01-28-2019 sodium chloride (PF) (NS) fl ush 5 mL Start: 11-05-2018 End: 11-09-2018 sodium chloride 0.9% (NS) eulalio zachary 1,000 mL Start: 11-05-2018 End: 11-09-2018 sodium chloride (PF) (NS) fl ush 5 mL sucralfate 1000 mg oral tablet (4 sources) Aluminum Complex Start: 03-02-2019 End: 03-01-2020 take 1 tablet by mouth four times daily before mealtime sucralfate (CARAFATE) 1 gram tablet Indications: Chronic gastritis without bleeding, unspecified gastritis type , GERD without esophagitis Take 1 (one) tablet (1 g total) by mouth 4 (four) times a day before meals . 120 tablet 11 03/02/2019 12/29/2019 Discontinued (Patient's Request) technetium (Tc-99m) mebrofenin (CHOLETEC) injection 6 millicurie (1 source) Start: 02-11-2019 End: 02-11-2019 technetium (Tc-99m) mebrofenin (CHOLETEC) injection 6 millicurie NEGATED: Highlighted row has not occurred!No Current Medications (1 source) No Current Medications Problems Active Problems Problem Classification Problem Date Documented Date Episodic/Chronic Allergic reactions (19 sources) Environmental allergy; Translations: [Other allergy status, other than to drugs and biological substances] Onset: 08-14-2019 11-19-2018 Episodic Esophageal disorders (14 sources) Gastroesophageal reflux disease without esophagitis; Translations: [Gastro-esophageal reflux disease without esophagitis] Onset: 03-02-2019 08-14-2019 Chronic Fever of unknown origin (1 source) Fever, unspecified; Translations: [Fever, unspecified] Onset: 11-01-2022 Episodic Gastritis and duodenitis (14 sources) Chronic gastritis; Translations: [Unspecified chronic gastritis without bleeding] Onset: 03-02-2019 08-14-2019 Chronic Headache; including migraine (1 source) Headache; Translations: [Headache, unspecified] Onset: 01-27-2022 Episodic Immunizations and screening for infectious disease (2 sources) Patient encounter status; Translations: [Encounter for screening for infections with a predominantly sexual mode of transmission] Onset: 10-27-2024 10-18-2022 Episodic Inflammation; infection of eye (except that caused by tuberculosis or sexually transmitteddisease) (2 sources) Unspecified acute conjunctivitis, bilateral; Translations: [Acute infectious conjunctivitis] Onset: 11-20-2022 11-20-2022 Episodic Inflammatory diseases of female pelvic organs (1 source) Acute vaginitis; Translations: [Acute vaginitis] 10-18-2022 Episodic Other complications of (20 sources) Anemia of ; Translations: [Anemia complicating , unspecified trimester] 10-13-2024 Chronic Comment on above: add Fe add Fe/stable Other complications of (1 source) Anemia complicating , third trimester; Translations: [Anemia complicating , third trimester] Onset: 12-15-2024 Chronic Other complications of (1 source) Anemia complicating , unspecified trimester; Translations: [Anemia complicating , unspecified trimester] Onset: 11-30-2024 Chronic Other complications of (20 sources) Pyelonephritis in ; Translations: [Infections of kidney in , unspecified trimester] 09-23-2024 Episodic Comment on above: ceftriaxone x 2 days then keflex x 10 days, then daily keflex prophylaxis. Other complications of (1 source) Infections of kidney in , second trimester; Translations: [Infections of kidney in , second trimester] Onset: 12-15-2024 Episodic Other complications of (1 source) Uterine size-date discrepancy, unspecified trimester; Translations: [Uterine size-date discrepancy, unspecified trimester] Onset: 12-16-2024 Episodic Other complications of (2 sources) Infections of kidney in , unspecified trimester; Translations: [Infections of kidney in , unspecified trimester] Onset: 10-14-2024 Episodic Other eye disorders (1 source) Other specified disorders of eye and adnexa; Translations: [Other specified disorders of eye and adnexa] Onset: 11-20-2022 Episodic Other eye disorders (1 source) Edema of left lower eyelid; Translations: [Edema of left lower eyelid] Onset: 11-20-2022 Episodic Other eye disorders (1 source) Edema of right lower eyelid; Translations: [Edema of right lower eyelid] Onset: 11-20-2022 Episodic Other female genital disorders (1 source) Vaginal discharge; Translations: [Other specified noninflammatory disorders of vagina] 10-18-2022 Episodic Other female genital disorders (1 source) Vaginal odor; Translations: [Other specified noninflammatory disorders of vagina] 10-18-2022 Episodic Other nervous system disorders (1 source) Impaired cognition; Translations: [Other symptoms and signs involving cognitive functions and awareness] Onset: 12-31-2021 Episodic Other and delivery including normal (20 sources) Normal ; Translations: [Encounter for supervision of normal first , unspecified trimester] Onset: 07-13-2024 08-26-2024 Episodic Comment on above: [id number], TERESITA 12/29/24, girl Colbie PARISH Gutierrez LR NIPT Carrier Neg. Carrier for Cystic Fibrosis;FOB Karen Merino negative LR NIPT Carrier Neg. Carrier for Cystic Fibrosis;FOB Karen Wilber negative, nl anatomy GBS Negative, LR NIP T Carrier Neg. Carrier for Cystic Fibrosis;FOB Karen Wilber negative, nl anatomy Other upper respiratory disease (3 sources) Allergic rhinitis due to house dust mite; Translations: [Other allergic rhinitis] Onset: 04-08-2017 08-14-2019 Chronic Other upper respiratory disease (3 sources) Allergic rhinitis due to pollen; Translations: [Allergic rhinitis due to pollen] Onset: 04-08-2017 08-14-2019 Chronic Other upper respiratory disease (3 sources) Chronic rhinitis; Translations: [Chronic rhinitis] Onset: 04-08-2017 08-14-2019 Chronic Other upper respiratory disease (3 sources) Allergic rhinitis caused by mold; Translations: [Other allergic rhinitis] Onset: 04-08-2017 08-14-2019 Chronic Other upper respiratory infections (17 sources) Acute upper respiratory infection; Translations: [Viral upper respiratory tract infection] Onset: 2000 08-14-2019 Episodic Residual codes; unclassified (2 sources) Body mass index (BMI) pediatric, 5th percentile to less than 85th percentile for age; Translations: [Body mass index (BMI) of 5th to less than 85th percentile for age in patient 18 years to less than 21 years of age] Onset: 11-19-2018 11-19-2018 Episodic Residual codes; unclassified (1 source) Electronic cigarette user; Translations: [Other specified health status] 10-18-2022 Episodic Residual codes; unclassified (20 sources) Carrier of cystic fibrosis gene mutation; Translations: [Cystic fibrosis carrier] 08-19-2024 Episodic Comment on above: FOB neg. 06/04 Residual codes; unclassified (2 sources) Cystic fibrosis carrier; Translations: [Cystic fibrosis carrier] Onset: 10-14-2024 Episodic Residual codes; unclassified (1 source) Acquired absence of spleen; Translations: [Acquired absence of spleen] Onset: 12-15-2024 Episodic Residual codes; unclassified (1 source) 36 weeks gestation of ; Translations: [36 weeks gestation of ] Onset: 12-15-2024 Episodic Residual codes; unclassified (2 sources) 20 weeks gestation of ; Translations: [20 weeks gestation of ] Onset: 09-22-2024 Episodic Superficial injury; contusion (1 source) Contusion of scalp; Translations: [Contusion of scalp, initial encounter] Episodic Unclassified (12 sources) Normal body mass index; Translations: [Body mass index (BMI) of 5th to less than 85th percentile for age in patient 18 years to less than 21 years of age] Onset: 11-19-2018 11-19-2018 Unclassified (2 sources) SORE THROAT FEVER BODY ACHES 11-01-2022 Comment on above: SORE THROAT FEVER EULALIO DY ACHES Unclassified (1 source) Viral URI with cough 11-01-2022 Unclassified (1 source) Contact with and (suspected) exposure to COVID-19; Translations: [Contact with and (suspected) exposure to COVID-19] Onset: 11-01-2022 Unclassified (1 source) Cough, unspecified; Translations: [Cough, unspecified] Onset: 11-01-2022 Unclassified (2 sources) EYE PAIN 11-20-2022 Comment on above: EYE PAIN Unclassified (1 source) Acute bacterial conjunctivitis 11-20-2022 Unclassified (2 sources) COUGH, FEVER 03-07-2023 Comment on above: COUGH, FEVER Urinary tract infections (7 sources) Acute urinary tract infection; Translations: [Urinary tract infectious disease] Onset: 01-27-2022 11-06-2020 Episodic Comment on above: UTI Past or Other Problems Problem Classification Problem Date Documented Da te Episodic/Chronic Abdominal pain (20 sources) Abdominal pain; Translations: [Unspecified abdominal pain] Onset: 9 02-04-2019 Episodic Comment on above: RUQ gallbladder Biliary tract disease (14 sources) Biliary dyskinesia; Translations: [Other specified diseases of gallbladder] Onset: 9 08-14-2019 Episodic Cardiac dysrhythmias (9 sources) Palpitations; Translations: [Palpitations] Onset: 0 12-29-2019 Episodic Gastrointestinal hemorrhage (19 sources) Gastrointestinal hemorrhage; Translations: [Acute gastrointestinal hemorrhage] Onset: 9 02-04-2019 Episodic Mood disorders (1 source) Mood disorders Onset: 9 11-07-2018 Nausea and vomiting (19 sources) Nausea; Translations: [Nausea] Onset: 9 02-04-2019 Episodic Other nutritional; endocrine; and metabolic disorders (17 sources) Weight loss; Translations: [Abnormal weight loss] Onset: 9 02-04-2019 Episodic Other nutritional; endocrine; and metabolic disorders (2 sources) Weight decreased; Translations: [Abnormal weight loss] Onset: 9 08-14-2019 Episodic Residual codes; unclassified (13 sources) H/O splenectomy; Translations: [H/O splenectomy] Onset: 6 11-19-2018 Episodic Residual codes; unclassified (5 sources) Normal body mass index; Translations: [Body mass index (BMI) of 5th to less than 85th percentile for age in patient 18 years to less than 21 years of age] Onset: 9 11-19-2018 Episodic Residual codes; unclassified (1 source) 16 weeks gestation of ; Translations: [16 weeks gestation of ] Onset: 5 Episodic Residual codes; unclassified (1 source) 12 weeks gestation of ; Translations: [12 weeks gestation of ] Onset: 5 Episodic Residual codes; unclassified (1 source) 9 weeks gestation of ; Translations: [9 weeks gestation of ] Onset: 4 Episodic Septicemia (except in labor) (20 sources) Sepsis; Translations: [Sepsis, unspecified organism] Onset: 9 11-05-2018 Episodic Syncope (15 sources) Syncope and collapse; Translations: [Syncope] Onset: 0 12-29-2019 Episodic Results Test Name Value Interpretation Reference Range Facility Certified Endoscopy Technician Office Visit Reporton 01-07-2025 Certified Endoscopy Technician Office Visit Report [facility]'s [address], [address] [place] [address] OFFICE VISIT Date of Service: 01/07/25 MR#: [id number] Acct: [id number] Name: AIMEE REDDY Rep #: [id number] : 2000 Provider: Dr. Mimi Garcia DO Age/Sex: 24/F Location: [facility] – [place] Status: Signed Intake Vital Signs 11/11/24 09:33 12/30/24 14:13 01/07/25 11:24 Height 5 ft 4 in 5 ft 4 in 5 ft 4 in Weight: 150 lb 2 oz BMI 25.7 BP 134/88 H Intake Visit Reasons: 40 wk ob *Happy due date* Chief Complaint: 40wk OB 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 Is patient in pain?: No Allergies No Known Allergies Allergy (Verified 01/07/25 11:21) Medications ???Medication ???Instructions ???Recorded ???Confirmed ???Type PNV 153-FA 400 mcg-om3 35 mg-dha tab PO 05/14/24 01/07/25 History 25 mg-epa 5 mg-fish oil chew tablet acetaminophen 325 mg tablet 650 mg PO Q4H PRN pain 09/22/24 History (Tylenol) cephalexin 500 mg capsule 500 mg PO BID #60 caps 10/14/24 Rx ferrous sulfate 325 mg (65 mg 325 mg PO QDAY 12/09/24 01/07/25 H istory iron) tablet Last Menstrual Period: 03/24/24 : No PFSH PFSH Surgical History History of splenectomy Social History adopted: No household members: family current occupational status: employed current occupation: [employer] pets and animals: Yes pets and animals: dog(s) history of recent travel: No sexually active: Yes Smoking Status: Former smoker Electronic Cigarette Use: with nicotine alcohol intake: current alcohol intake frequency: a few times a month details: not while substance use type: does not use well-balanced diet: daily or most days caffeine: No eating out: 1-3 times/week during the past year weight has: remained stable what type of physical activity do you participate in: none ana m/alevism: Anabaptism seatbelt use: always do you feel safe at home: Yes additional social history: BF- Bernda- Cayden Coley History 1 Elective abortions Hx Para 0 Spontaneous abortions Hx # Term Pregnancies Ectopic pregnancies Hx # Pregnancies Multiple births # of living children HPI 40 wk ob *Happy due date* Details: AIMEE REDDY is a 24 year old who presents for routine OB visit. OB Visit TERESITA Calculator Estimated Delivery Date Method Current WG Current Estimate 01/07/25 Ultrasound #1 40w 0d Other Estimates 12/29/24 LMP (Certain) 41w 2d Expected Delivery Route/Plan Labor Preferences- CB/BF classes: enc labor support person: Karen labor intervention preferences: [] pain management options preferred: [] cut cord/dad catch: cord : yes PP control planned: discused discussed possible routes of delivery and associated risks: [] special requests: [] Specific Issue/Plans Covid status: [] Flu vaccine: [] Tdap vaccine: given Rhogam: NA LARC form signed: yes Problem list reviewed and updated with the most current plan of care details and appropriate orders placed. Relevant counseling for the gestational age provided. Continue routine care and follow up unless otherwise noted in visit notes/problem list details Initial Weight: 125 lb Date -???-???-???-???-???-??? -???-???-???-???-???-??? - EGA Weight BP Urine Prot -???-???-???-???-???-??? -???-???-???-???-???-??? - Glucose FHR FuHt Pres Dilation -???-???-???-???-???-??? -???-???-???-???-???-??? - Effaced St Visit Note 05/29/24 -???-???-???-???-???-??? -???-???-???-???-???-??? - 8w 1d 125 lb 4 oz (+4 oz) 127/76 -???-???-???-???-???-??? -???-???-???-???-???-??? - 166 -???-???-???-???-???-??? -???-???-???-???-???-??? - LC CRL 1.62 not con with LMP. LMP changed to 01/07/2025. desires nipt/carrier screening. will return in 2 weeks. 07/01/24 -???-???-???-???-???-??? -???-???-???-???-???-??? - 12w 6d 124 lb 6 oz (-10 oz) 107/61 Negative -???-???-???-???-???-??? -???-???-???-???-???-??? - Negative 145 -???-???-???-???-???-??? -???-???-???-???-???-??? - MH-No VB. Na usea problematic. Zofran sent. 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 Br US confirm FHT 07/28/24 -???-???-???-???-???-??? -???-???-???-???-???-??? - 16w 5d 127 lb (+2 lb) 112/70 Negative -???-???-???-???-???-??? -???-???-???-???-???-??? - Negative 142 -???-???-???-???-???-??? -???-???-???-???-???-??? - JV- no compl aints today other than FOB needs labs for CF. 08/26/24 -???-???-???-???-???-??? -???-???-???-???-???-??? - 20w 6d 129 lb (+4 lb) 108/62 Negative -???-???-???-???-???-??? -???-???-???-???-???-??? - Negative 135 -???-???-???-???-???-??? -???-???-???-???-???-??? - SM- no vb lo f (more content not included)... Normal [facility] - Chemistry and C hemistry - challengeOrdered By: Mimi Caldera on 12-30-2024 Glucose Ql (U) Negative [facility] - UrinalysisOrder ed By: Mimi Caldera on 12-30-2024 Protein Ql (U) Negative [facility] Certified Endoscopy Technician Office Visit Reporton 12-30-2024 Certified Endoscopy Technician Office Visit Report [facility]'s [address], [address] [place] [address] OFFICE VISIT Date of Service: 12/30/24 MR#: [id number] Acct: [id number] Name: AIMEE REDDY Rep #: [id number] : 2000 Provider: Dr. Mimi Garcia DO Age/Sex: 24/F Location: [facility] – [place] Status: Signed Intake Vital Signs 11/11/24 09:33 12/23/24 15:26 12/30/24 14:13 Height 5 ft 4 in 5 ft 4 in 5 ft 4 in Weight: 150 lb BMI 25.7 BP 128/86 H Intake Visit Reasons: 39 wk ob 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 Is patient in pain?: No Allergies No Known Allergies Allergy (Verified 12/30/24 14:15) Medications ???Medication ???Instructions ???Recorded ???Confirmed ???Type PNV 153-FA 400 mcg-om3 35 mg-dha tab PO 05/14/24 12/30/24 History 25 mg-epa 5 mg-fish oil chew tablet acetaminophen 325 mg tablet 650 mg PO Q4H PRN pain 09/22/24 History (Tylenol) cephalexin 500 mg capsule 500 mg PO BID #60 caps 04/23/25 07 /09/25 Rx ferrous sulfate 325 mg (65 mg 325 mg PO QDAY 12/09/24 12/30/24 H istory iron) tablet Last Menstrual Period: 03/24/24 Zika: Zika virus screening: Negative : No PFSH PFSH Surgical History History of splenectomy Social History adopted: No household members: family current occupational status: employed current occupation: [employer] pets and animals: Yes pets and animals: dog(s) history of recent travel: No sexually active: Yes Smoking Status: Former smoker Electronic Cigarette Use: with nicotine alcohol intake: current alcohol intake frequency: a few times a month details: not while substance use type: does not use well-balanced diet: daily or most days caffeine: No eating out: 1-3 times/week during the past year weight has: remained stable what type of physical activity do you participate in: none ana m/alevism: Anabaptism seatbelt use: always do you feel safe at home: Yes additional social history: BF- Bhaskar Coley History 1 Elective abortions Hx Para 0 Spontaneous abortions Hx # Term Pregnancies Ectopic pregnancies Hx # Pregnancies Multiple births # of living children HPI 39 wk ob Details: AIMEE REDDY is a 24 year old who presents for routine OB visit. OB Visit TERESITA Calculator Estimated Delivery Date Method Current WG Current Estimate 01/07/25 Ultrasound #1 38w 6d Other Estimates 12/29/24 LMP (Certain) 40w 1d Expected Delivery Route/Plan Labor Preferences- CB/BF classes: enc labor support person: Karen labor intervention preferences: [] pain management options preferred: [] cut cord/dad catch: cord : yes PP control planned: discused discussed possible routes of delivery and associated risks: [] special requests: [] Specific Issue/Plans Covid status: [] Flu vaccine: [] Tdap vaccine: given Rhogam: NA LARC form signed: yes Problem list reviewed and updated with the most current plan of care details and appropriate orders placed. Relevant counseling for the gestational age provided. Continue routine care and follow up unless otherwise noted in visit notes/problem list details Initial Weight: 125 lb Date -???-???-???-???-???-??? -???-???-???-???-???-??? - EGA Weight BP Urine Prot -???-???-???-???-???-??? -???-???-???-???-???-??? - Glucose FHR FuHt Pres Dilation -???-???-???-???-???-??? -???-???-???-???-???-??? - Effaced St Visit Note 05/29/24 -???-???-???-???-???-??? -???-???-???-???-???-??? - 8w 1d 125 lb 4 oz (+4 oz) 127/76 -???-???-???-???-???-??? -???-???-???-???-???-??? - 166 -???-???-???-???-???-??? -???-???-???-???-???-??? - LC CRL 1.62 not con with LMP. LMP changed to 01/07/2025. desires nipt/carrier screening. will return in 2 weeks. 07/01/24 -???-???-???-???-???-??? -???-???-???-???-???-??? - 12w 6d 124 lb 6 oz (-10 oz) 107/61 Negative -???-???-???-???-???-??? -???-???-???-???-???-??? - Negative 145 -???-???-???-???-???-??? -???-???-???-???-???-??? - MH-No VB. Na usea problematic. Gayle sent. 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 Br US confirm FHT 07/28/24 -???-???-???-???-???-??? -???-???-???-???-???-??? - 16w 5d 127 lb (+2 lb) 112/70 Negative -???-???-???-???-???-??? -???-???-???-???-???-??? - Negative 142 -???-???-???-???-???-??? -???-???-???-???-???-??? - JV- no compl aints today other than FOB needs labs for CF. 08/26/24 -???-???-???-???-???-??? -???-???-???-???-???-??? - 20w 6d 129 lb (+4 lb) 108/62 Negative -???-???-???-???-???-??? -???-???-???-???-???-??? - Negative 135 -???-???-???-???-???-??? -???-???-???-???-???-??? - SM- no vb lo f good fm no reuglar ct (more content not included)... Normal [facility] - Chemistry and C hemistry - challengeOrdered By: Mimi Caldera on 12-23-2024 Glucose Ql (U) Negative [facility] - UrinalysisOrder ed By: Mimi Caldera on 12-23-2024 Protein Ql (U) Negative [facility] Certified Endoscopy Technician Office Visit Reporton 12-23-2024 Certified Endoscopy Technician Office Visit Report [facility] [address], [address] [place] [address] OFFICE VISIT Date of Service: 12/23/24 MR#: [id number] Acct: [id number] Name: AIMEE REDDY Rep #: [id number] : 2000 Provider: Dr. Mimi Garcia DO Age/Sex: 24/F Location: [facility] – [place] Status: Signed Intake Vital Signs 11/11/24 09:33 12/15/24 09:36 12/23/24 15:26 Height 5 ft 4 in 5 ft 4 in 5 ft 4 in Weight: 149 lb 6 oz BMI 25.6 BP 118/82 H Intake Visit Reasons: 38 wk ob 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 Is patient in pain?: No Allergies No Known Allergies Allergy (Verified 12/23/24 15:29) Medications ???Medication ???Instructions ???Recorded ???Confirmed ???Type PNV 153-FA 400 mcg-om3 35 mg-dha tab PO 05/14/24 12/23/24 History 25 mg-epa 5 mg-fish oil chew tablet acetaminophen 325 mg tablet 650 mg PO Q4H PRN pain 09/22/24 History (Tylenol) cephalexin 500 mg capsule 500 mg PO BID #60 caps 10/14/24 Rx ferrous sulfate 325 mg (65 mg 325 mg PO QDAY 12/09/24 12/23/24 H istory iron) tablet Last Menstrual Period: 03/24/24 Zika: Zika virus screening: Negative : No PFSH PFSH Surgical History History of splenectomy Social History adopted: No household members: family current occupational status: employed current occupation: [employer] pets and animals: Yes pets and animals: dog(s) history of recent travel: No sexually active: Yes Smoking Status: Former smoker Electronic Cigarette Use: with nicotine alcohol intake: current alcohol intake frequency: a few times a month details: not while substance use type: does not use well-balanced diet: daily or most days caffeine: No eating out: 1-3 times/week during the past year weight has: remained stable what type of physical activity do you participate in: none ana m/alevism: Anabaptism seatbelt use: always do you feel safe at home: Yes additional social history: PARISH- Bhaskar Coley [place] History 1 Elective abortions Hx Para 0 Spontaneous abortions Hx # Term Pregnancies Ectopic pregnancies Hx # Pregnancies Multiple births # of living children HPI 38 wk ob Details: AIMEE REDDY is a 24 year old who presents for routine OB visit. OB Visit TERESITA Calculator Estimated Delivery Date Method Current WG Current Estimate 01/07/25 Ultrasound #1 37w 6d Other Estimates 12/29/24 LMP (Certain) 39w 1d Expected Delivery Route/Plan Labor Preferences- CB/BF classes: enc labor support person: Karen labor intervention preferences: [] pain management options preferred: [] cut cord/dad catch: cord : yes PP control planned: discused discussed possible routes of delivery and associated risks: [] special requests: [] Specific Issue/Plans Covid status: [] Flu vaccine: [] Tdap vaccine: given Rhogam: NA LARC form signed: yes Problem list reviewed and updated with the most current plan of care details and appropriate orders placed. Relevant counseling for the gestational age provided. Continue routine care and follow up unless otherwise noted in visit notes/problem list details Initial Weight: 125 lb Date -???-???-???-???-???-??? -???-???-???-???-???-??? - EGA Weight BP Urine Prot -???-???-???-???-???-??? -???-???-???-???-???-??? - Glucose FHR FuHt Pres Dilation -???-???-???-???-???-??? -???-???-???-???-???-??? - Effaced St Visit Note 05/29/24 -???-???-???-???-???-??? -???-???-???-???-???-??? - 8w 1d 125 lb 4 oz (+4 oz) 127/76 -???-???-???-???-???-??? -???-???-???-???-???-??? - 166 -???-???-???-???-???-??? -???-???-???-???-???-??? - LC CRL 1.62 not con with LMP. LMP changed to 01/07/2025. desires nipt/carrier screening. will return in 2 weeks. 07/01/24 -???-???-???-???-???-??? -???-???-???-???-???-??? - 12w 6d 124 lb 6 oz (-10 oz) 107/61 Negative -???-???-???-???-???-??? -???-???-???-???-???-??? - Negative 145 -???-???-???-???-???-??? -???-???-???-???-???-??? - -No VB. Na usea problematic. Gayle sent. 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 Br US confirm FHT 07/28/24 -???-???-???-???-???-??? -???-???-???-???-???-??? - 16w 5d 127 lb (+2 lb) 112/70 Negative -???-???-???-???-???-??? -???-???-???-???-???-??? - Negative 142 -???-???-???-???-???-??? -???-???-???-???-???-??? - JV- no compl aints today other than FOB needs labs for CF. 08/26/24 -???-???-???-???-???-??? -???-???-???-???-???-??? - 20w 6d 129 lb (+4 lb) 108/62 Negative -???-???-???-???-???-??? -???-???-???-???-???-??? - Negative 135 -???-???-???-???-???-??? -???-???-???-???-???-??? - SM- no vb lo f good fm no r (more content not included)... Normal [facility] Rule out Beta Strep (Grp. B) on 12-18-2024 TREVON Group B Beta Streptococcus is not isolated. Normal [facility] Comment on above: Performed By: #### M [phone] ####[facility] [id number] [place], [address] Certified Endoscopy Technician Office Visit Reporton 12-15-2024 Certified Endoscopy Technician Office Visit Report [facility]'s [address], [address] [place] [address] OFFICE VISIT Date of Service: 12/15/24 MR#: [id number] Acct: [id number] Name: AIMEE REDDY Rep #: [id number] : 2000 Provider: Dr. Leonor ha MD Age/Sex: 24/F Location: [facility] – [place], [place] Status: Signed Intake Vital Signs 07/01/24 09:26 12/09/24 09:30 12/15/24 09:36 Height 5 ft 4 in 5 ft 4 in 5 ft 4 in Weight: 152 lb BMI 26.1 BP 125/82 H Intake Visit Reasons: 37wk ob 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 Is patient in pain?: No Allergies No Known Allergies Allergy (Verified 12/15/24 09:38) Medications ???Medication ???Instructions ???Recorded ???Confirmed ???Type PNV 153-FA 400 mcg-om3 35 mg-dha tab PO 05/14/24 12/15/24 History 25 mg-epa 5 mg-fish oil chew tablet acetaminophen 325 mg tablet 650 mg PO Q4H PRN pain 09/22/24 History (Tylenol) cephalexin 500 mg capsule 500 mg PO BID #60 caps 10/14/24 Rx ferrous sulfate 325 mg (65 mg 325 mg PO QDAY 12/09/24 12/15/24 H istory iron) tablet Last Menstrual Period: 03/24/24 Zika: Zika virus screening: Negative : No PFSH PFSH Surgical History History of splenectomy Social History adopted: No household members: family current occupational status: employed current occupation: [employer] pets and animals: Yes pets and animals: dog(s) history of recent travel: No sexually active: Yes Smoking Status: Former smoker Electronic Cigarette Use: with nicotine alcohol intake: current alcohol intake frequency: a few times a month details: not while substance use type: does not use well-balanced diet: daily or most days caffeine: No eating out: 1-3 times/week during the past year weight has: remained stable what type of physical activity do you participate in: none ana m/alevism: Anabaptism seatbelt use: always do you feel safe at home: Yes additional social history: BF- Brenda- Cayden R [place] History 1 Elective abortions Hx Para 0 Spontaneous abortions Hx # Term Pregnancies Ectopic pregnancies Hx # Pregnancies Multiple births # of living children HPI 37wk ob Details: AIMEE REDDY is a 24 year old who presents for routine OB visit. OB Visit TERESITA Calculator Estimated Delivery Date Method Current WG Current Estimate 01/07/25 Ultrasound #1 36w 5d Other Estimates 12/29/24 LMP (Certain) 38w 0d Expected Delivery Route/Plan Labor Preferences- CB/BF classes: enc labor support person: Karen labor intervention preferences: [] pain management options preferred: [] cut cord/dad catch: cord : yes PP control planned: discused discussed possible routes of delivery and associated risks: [] special requests: [] Specific Issue/Plans Covid status: [] Flu vaccine: [] Tdap vaccine: given Rhogam: NA LARC form signed: yes Problem list reviewed and updated with the most current plan of care details and appropriate orders placed. Relevant counseling for the gestational age provided. Continue routine care and follow up unless otherwise noted in visit notes/problem list details Initial Weight: 125 lb Date -???-???-???-???-???-??? -???-???-???-???-???-??? - EGA Weight BP Urine Prot -???-???-???-???-???-??? -???-???-???-???-???-??? - Glucose FHR FuHt Pres Dilation -???-???-???-???-???-??? -???-???-???-???-???-??? - Effaced St Visit Note 05/29/24 -???-???-???-???-???-??? -???-???-???-???-???-??? - 8w 1d 125 lb 4 oz (+4 oz) 127/76 -???-???-???-???-???-??? -???-???-???-???-???-??? - 166 -???-???-???-???-???-??? -???-???-???-???-???-??? - LC CRL 1.62 not con with LMP. LMP changed to 01/07/2025. desires nipt/carrier screening. will return in 2 weeks. 07/01/24 -???-???-???-???-???-??? -???-???-???-???-???-??? - 12w 6d 124 lb 6 oz (-10 oz) 107/61 Negative -???-???-???-???-???-??? -???-???-???-???-???-??? - Negative 145 -???-???-???-???-???-??? -???-???-???-???-???-??? - MH-No VB. Na usea problematic. Zofran sent. 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 Br US confirm FHT 07/28/24 -???-???-???-???-???-??? -???-???-???-???-???-??? - 16w 5d 127 lb (+2 lb) 112/70 Negative -???-???-???-???-???-??? -???-???-???-???-???-??? - Negative 142 -???-???-???-???-???-??? -???-???-???-???-???-??? - JV- no compl aints today other than FOB needs labs for CF. 08/26/24 -???-???-???-???-???-??? -???-???-???-???-???-??? - 20w 6d 129 lb (+4 lb) 108/62 Negative -???-???-???-???-???-??? -???-???-???-???-???-??? - Negative 135 -???-???-???-???-???-??? -???-???-???-???-???-??? - SM- no vb lo f good fm no reuglar ctx (more content not included)... Normal [facility] Screening beta-hemolytic Str eptococcus cultureOrdered By: Leonor Phillips on 12-15-2024 Beta-hemolytic Streptococcus culture Group B Beta Streptococcus is not isolated. [facility] OB Limited With Biometricson 12-11-2024 OB Limited With Biometrics [facility] Imaging Services [address] [place], [place] [id number] OB Limited With Biometrics MR#: [id number] Acct: [id number] Name: AIMEE REDDY Rep #: [id number] : 2000 F 24 From: Lobo tilley MD PCP: Care Physician,No Primary Status: REG CLI Study: OB Limited With Biometrics Date of Exam: 12/11 Exam# [id number] Ordering Dr: Leonor Phillips PROCEDURE: OB LIMITED WITH BIOMETRICS 12/11/2024 REASON FOR EXAM: GROWTH TECHNIQUE: OB LIMITED WITH BIOMETRICS COMPARISON: Prior study dated September 23, 2024. FINDINGS Number: 1 Position: Vertex Placental Position: Anterior and not low-lying. Placental Abnormalities: No evidence of previa. DIMENSIONS: Biparietal Diameter: 8.6 cm: 34 weeks and 6 days: 22nd percentile./ Head Circumference: 32.1 cm: 36 weeks and 1 day: 21st percentile/ Abdominal Circumference: 32 cm: 35 weeks and 5 days: 49 percentile/ Femur Length: 6.9 cm: 35 weeks and 4 days: 30 percentile./ ESTIMATED WEIGHT: 2731 g plus/-410 g ESTIMATED WEIGHT PERCENTILE (24+ weeks): 38 ESTIMATED GESTATIONAL AGE: Baseline: 36 weeks and 1 day By Ultrasound: 36 weeks and 0 day ESTIMATED DATE OF DELIVERY: Baseline: January 07, 2025 By Ultrasound: January 08, 2025. BIOPHYSICAL ASSESSMENT: Amniotic Fluid Volume: 4.8 Amniotic Fluid Index: 11.8 (8-24 cm normal range) Cardiac Motion: 130 beats per minute (average) Trunk and Limb Motion: Present. MATERNAL ANATOMY: Adnexa: Neither maternal ovary is successfully identified. US/OB Limited With Biometrics IMPRESSION: Single live intrauterine gestation with a mean gestational age of 36 weeks and 1 day. The measurements obtained today fall with the normal expected range. Reading Location: [id number] CC: Dr. Leonor Phillips MD; No Primary Care Physician Stem Roller Or Crusher Operator: Signed Normal [facility] Laboratory - Chemistry and C hemistry - challengeOrdered By: Leonor Phillips on 12-09-2024 Glucose Ql (U) Negative [facility] Laboratory - UrinalysisOrder ed By: Leonor Phillips on 12-09-2024 Protein Ql (U) Negative [facility] Certified Endoscopy Technician Office Visit Reporton 12-09-2024 Certified Endoscopy Technician Office Visit Report [facility] [address], [address] [place] [address] OFFICE VISIT Date of Service: 12/09/24 MR#: [id number] Acct: [id number] Name: AIMEE REDDY Rep #: [id number] : 2000 Provider: Dr. Leonor ha MD Age/Sex: 24/F Location: [facility] – [place] Status: Signed Intake Vital Signs 07/01/24 09:26 11/25/24 09:57 12/09/24 09:26 12/09/24 09:30 Height 5 ft 4 in 5 ft 4 in 5 ft 4 in 5 ft 4 in Weight: 148 lb 2 oz BMI 25.4 BP 127/76 H Intake Visit Reasons: 36wk ob 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 Is patient in pain?: No Allergies No Known Allergies Allergy (Verified 12/09/24 09:27) Medications ???Medication ???Instructions ???Recorded ???Confirmed ???Type PNV 153-FA 400 mcg-om3 35 mg-dha tab PO 05/14/24 12/09/24 History 25 mg-epa 5 mg-fish oil chew tablet acetaminophen 325 mg tablet 650 mg PO Q4H PRN pain 09/22/24 History (Tylenol) cephalexin 500 mg capsule 500 mg PO BID #60 caps 10/14/24 Rx ferrous sulfate 325 mg (65 mg 325 mg PO QDAY 12/09/24 12/09/24 H istory iron) tablet Last Menstrual Period: 03/24/24 Zika: Zika virus screening: Negative : No PFSH PFSH Surgical History History of splenectomy Social History adopted: No household members: family current occupational status: employed current occupation: [employer] pets and animals: Yes pets and animals: dog(s) history of recent travel: No sexually active: Yes Smoking Status: Former smoker Electronic Cigarette Use: with nicotine alcohol intake: current alcohol intake frequency: a few times a month details: not while substance use type: does not use well-balanced diet: daily or most days caffeine: No eating out: 1-3 times/week during the past year weight has: remained stable what type of physical activity do you participate in: none ana m/alevism: Anabaptism seatbelt use: always do you feel safe at home: Yes additional social history: BF- Brenda- [employer] R History 1 Elective abortions Hx Para 0 Spontaneous abortions Hx # Term Pregnancies Ectopic pregnancies Hx # Pregnancies Multiple births # of living children HPI 36wk ob Details: AIMEE REDDY is a 24 year old who presents for routine OB visit. OB Visit TERESITA Calculator Estimated Delivery Date Method Current WG Current Estimate 01/07/25 Ultrasound #1 35w 6d Other Estimates 12/29/24 LMP (Certain) 37w 1d Expected Delivery Route/Plan Labor Preferences- CB/BF classes: enc labor support person: Karen labor intervention preferences: [] pain management options preferred: [] cut cord/dad catch: cord : yes PP control planned: discused discussed possible routes of delivery and associated risks: [] special requests: [] Specific Issue/Plans Covid status: [] Flu vaccine: [] Tdap vaccine: given Rhogam: NA LARC form signed: yes Problem list reviewed and updated with the most current plan of care details and appropriate orders placed. Relevant counseling for the gestational age provided. Continue routine care and follow up unless otherwise noted in visit notes/problem list details Initial Weight: 125 lb Date -???-???-???-???-???-??? -???-???-???-???-???-??? - EGA Weight BP Urine Prot -???-???-???-???-???-??? -???-???-???-???-???-??? - Glucose FHR FuHt Pres Dilation -???-???-???-???-???-??? -???-???-???-???-???-??? - Effaced St Visit Note 05/29/24 -???-???-???-???-???-??? -???-???-???-???-???-??? - 8w 1d 125 lb 4 oz (+4 oz) 127/76 -???-???-???-???-???-??? -???-???-???-???-???-??? - 166 -???-???-???-???-???-??? -???-???-???-???-???-??? - LC CRL 1.62 not con with LMP. LMP changed to 01/07/2025. desires nipt/carrier screening. will return in 2 weeks. 07/01/24 -???-???-???-???-???-??? -???-???-???-???-???-??? - 12w 6d 124 lb 6 oz (-10 oz) 107/61 Negative -???-???-???-???-???-??? -???-???-???-???-???-??? - Negative 145 -???-???-???-???-???-??? -???-???-???-???-???-??? - MH-No VB. Na usea problematic. Gayle sent. 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 Br US confirm FHT 07/28/24 -???-???-???-???-???-??? -???-???-???-???-???-??? - 16w 5d 127 lb (+2 lb) 112/70 Negative -???-???-???-???-???-??? -???-???-???-???-???-??? - Negative 142 -???-???-???-???-???-??? -???-???-???-???-???-??? - JV- no compl aints today other than FOB needs labs for CF. 08/26/24 -???-???-???-???-???-??? -???-???-???-???-???-??? - 20w 6d 129 lb (+4 lb) 108/62 Negative -???-???-???-???-???-??? -???-???-???-???-???-??? - Negative 135 -???-???-???-???-???-??? -???-???-???-???-???-??? - SM- no vb (more content not included)... Normal [facility] Absolute lymphocyte countOrd ered By: Ramya Voss on 11-25-2024 Lymphocytes Auto (Unsp spec) [#/Vol] 3.10 10*3/uL 0.83-4.[address] [facility] Absolute neutrophil countOrd ered By: Ramya Voss on 11-25-2024 Neutrophils (Bld) [#/Vol] 10.6 10*3/uL High 2.0-7.[address] [facility] Automated lymphocyte count a s percentage of total leukocytesOrdered By: Ramya Voss on 11-25-2024 Lymphocytes/100 WBC Auto (Unsp spec) 19.4 % 19-[address] [facility] Basophil percentageOrdered B y: Ramya Voss on 11-25-2024 Basophils/100 WBC (Bld) 0.6 % 0-[address] [facility] CBC W/Diff, Automatedon Absolute Lymph 3.10 X10 3/uL Normal 0.83-4.[address] [facility] Comment on above: Performed By: #### L 100.0100 ####[facility] [address] [place], [address] Absolute Neut 10.6 X10 3/uL High 2.0-7.[address] [facility] Comment on above: Performed By: #### L 100.0100 ####[facility] [address] [place], [address] Basophils/100 WBC (Bld) 0.6 % Normal 0-[address] [facility] Comment on above: Performed By: #### L 100.0100 ####[facility] [address] [place], [address] Eosinophils/100 WBC (Bld) 3.1 % Normal 0-[address] [facility] Comment on above: Performed By: #### L 100.0100 ####[facility] [address] [place], [address] Erythrocyte distribution width (RBC) [Ratio] 13.6 % Normal 11.6-14.[address] [facility] Comment on above: Performed By: #### L 100.0100 ####[facility] [address] [place], [address] Hematocrit (Bld) [Volume fraction] 31.9 % Low 37-[address] [facility] Comment on above: Performed By: #### L 100.0100 ####[facility] [address] [place], [address] Hemoglobin (Bld) [Mass/Vol] 10.6 g/dL Low 12.0-15.[address] [facility] Comment on above: Performed By: #### L 100.0100 ####[facility] [address] [place], [address] IG% 1.700 High 0.0-0.[address] [facility] Comment on above: Result Comment: IG% - Immature Granulocytes (promyelocytes, myelocytes and metamyelocytes) > 1% indicates that a LEFT SHIFT is Present. Performed By: #### L 100.0100 ####[facility] [address] [place], [address] Lymphocytes/100 WBC (Bld) 19.4 % Normal 19-[address] [facility] Comment on above: Performed By: #### L 100.0100 ####[facility] [address] [place], [address] MCH (RBC) [Entitic mass] 29.6 pg Normal 27.0-32.[address] [facility] Comment on above: Performed By: #### L 100.0100 ####[facility] [address] [place], [address] MCHC (RBC) [Mass/Vol] 33.2 g/dL Normal 32-36 [facility] Comment on above: Performed By: #### L 100.0100 ####[facility] [address] [place], [address] MCV (RBC) [Entitic vol] 89.1 fL Normal 81-[address] [facility] Comment on above: Performed By: #### L 100.0100 ####[facility] [address] [place], [address] Monocytes/100 WBC (Bld) 9.3 % Normal 0-[address] [facility] Comment on above: Performed By: #### L 100.0100 ####[facility] [address] [place], [address] Neutrophils/100 WBC (Bld) 65.9 % Normal 47-[address] [facility] Comment on above: Performed By: #### L 100.0100 ####[facility] [address] [place], [address] Nucleated RBC (Bld) [#/Vol] 0 10*3/uL Normal 0-[address] [facility] Comment on above: Performed By: #### L 100.0100 ####[facility] [address] [place], [address] Platelet mean volume (Bld) [Entitic vol] 12.6 fL High 6.2-12.[address] [facility] Comment on above: Performed By: #### L 100.0100 ####[facility] [address] [place], [address] Platelets (Bld) [#/Vol] 338 10*3/uL Normal 150-[address] [facility] Comment on above: Performed By: #### L 100.0100 ####[facility] [address] [place], [address] RBC (Bld) [#/Vol] 3.58 10*6/uL Low 4.2-5.[address] [facility] Comment on above: Performed By: #### L 100.0100 ####[facility] [address] [place], [address] RDW SD 44.0 fl High 35.1-43.[address] [facility] Comment on above: Performed By: #### L 100.0100 ####[facility] [address] [place], [place], [address] WBC (Bld) [#/Vol] 16.0 10*3/uL High 4.4-11.[address] [facility] Comment on above: Performed By: #### L 100.0100 ####[facility] [address] [place], [address] Eosinophil percentageOrdered By: Ramya Voss on 11-25-2024 Eosinophils/100 WBC (Bld) 3.1 % 0-[address] [facility] Erythrocyte distribution wid th ratioOrdered By: Ramyashannan Voss on 11-25-2024 Erythrocyte distribution width (RBC) [Ratio] 13.6 % 11.6-14.[address] [facility] Erythrocyte distribution wid th standard deviationOrdered By: Ramya Voss on 11-25-2024 Erythrocyte distribution width (RBC) [Ratio] 44.0 fl High 35.1-43.[address] [facility] Hematocrit Auto (Bld) [Volum e fraction]Ordered By: Ramya Voss on 11-25-2024 Hematocrit (Bld) [Volume fraction] 31.9 % Low 37-[address] [facility] Hemoglobin measurementOrdere d By: Ramya Voss on 11-25-2024 Hemoglobin (Bld) [Mass/Vol] 10.6 g/dL Low 12.0-15.[address] [facility] Immature granulocytes/100 WB C Auto (Bld)Ordered By: Ramya Voss on 11-25-2024 Immature granulocytes/100 WBC (Bld) 1.700 % High 0.0-0.[address] [facility] Comment on above: IG% - Immature Granu locytes (promyelocytes, myelocytes and metamyelocytes) > 1% indicates that a LEFT SHIFT is Present. Laboratory - Chemistry and C hemistry - challengeOrdered By: Ramya Voss on 11-25-2024 Glucose Ql (U) Negative [facility] Laboratory - UrinalysisOrder ed By: Ramya Voss on 06-04-2025 Protein Ql (U) Negative [facility] MCV (mean corpuscular volume ) determinationOrdered By: Ramya Voss on 11-25-2024 MCV (RBC) [Entitic vol] 89.1 fL 81-[address] [facility] Mean corpuscular hemoglobin (MCH) determinationOrdered By: Ramya Voss on 11-25-2024 MCH (RBC) [Entitic mass] 29.6 pg 27.0-32.[address] [facility] Mean corpuscular hemoglobin concentration (MCHC) determinationOrdered By: Ramya Voss on 11-25-2024 MCHC (RBC) [Mass/Vol] 33.2 g/dL 32-36 [facility] Mean platelet volume determi nationOrdered By: Ramya Voss on 11-25-2024 Platelet mean volume (Bld) [Entitic vol] 12.6 fL High 6.2-12.[address] [facility] Monocyte percentageOrdered B y: Ramya Voss on 11-25-2024 Monocytes/100 WBC (Bld) 9.3 % 0-[address] [facility] Neutrophil percentageOrdered By: Ramya Voss on 11-25-2024 Neutrophils/100 WBC (Bld) 65.9 % 47-[address] [facility] Nucleated red blood cell per centageOrdered By: Ramya Voss on 11-25-2024 Nucleated RBC/100 WBC (Bld) [Ratio] 0 % 0-[address] [facility] Certified Endoscopy Technician Office Visit Reporton 11-25-2024 Certified Endoscopy Technician Office Visit Report [facility] [address], [address] [place] [address] OFFICE VISIT Date of Service: 11/25/24 MR#: [id number] Acct: [id number] Name: AIMEE REDDY Rep #: [id number] : 2000 Provider: ANDREW early Age/Sex: 24/F Location: [facility] – [place] Status: Signed Intake Vital Signs 07/01/24 09:26 11/11/24 09:33 11/25/24 09:57 Height 5 ft 4 in 5 ft 4 in 5 ft 4 in Weight: 144 lb 146 lb 2 oz BMI 24.7 25.0 BP 117/76 112/82 H Intake Visit Reasons: 34wk ob Chief Complaint: 34 Week OB 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 Is patient in pain?: No Allergies No Known Allergies Allergy (Verified 11/25/24 09:58) Medications ???Medication ???Instructions ???Recorded ???Confirmed ???Type PNV 153-FA 400 mcg-om3 35 mg-dha tab PO 05/14/24 11/25/24 History 25 mg-epa 5 mg-fish oil chew tablet acetaminophen 325 mg tablet 650 mg PO Q4H PRN pain 09/22/24 History (Tylenol) cephalexin 500 mg capsule 500 mg PO BID #60 caps 10/14/24 Rx Last Menstrual Period: 03/24/24 Zika: Zika virus screening: Negative : No PFSH PFSH Surgical History History of splenectomy Social History adopted: No household members: family current occupational status: employed current occupation: [employer] pets and animals: Yes pets and animals: dog(s) history of recent travel: No sexually active: Yes Smoking Status: Former smoker Electronic Cigarette Use: with nicotine alcohol intake: current alcohol intake frequency: a few times a month details: not while substance use type: does not use well-balanced diet: daily or most days caffeine: No eating out: 1-3 times/week during the past year weight has: remained stable what type of physical activity do you participate in: none ana m/alevism: Anabaptism seatbelt use: always do you feel safe at home: Yes additional social history: BF- Brenda- [employer] R History 1 Elective abortions Hx Para 0 Spontaneous abortions Hx # Term Pregnancies Ectopic pregnancies Hx # Pregnancies Multiple births # of living children HPI 34wk ob Details: AIMEE REDDY is a 24 year old who presents for routine OB visit. OB Visit TERESITA Calculator Estimated Delivery Date Method Current WG Current Estimate 01/07/25 Ultrasound #1 33w 6d Other Estimates 12/29/24 LMP (Certain) 35w 1d Expected Delivery Route/Plan Labor Preferences- CB/BF classes: enc labor support person: Karen labor intervention preferences: [] pain management options preferred: [] cut cord/dad catch: cord : yes PP control planned: discused discussed possible routes of delivery and associated risks: [] special requests: [] Specific Issue/Plans Covid status: [] Flu vaccine: [] Tdap vaccine: given Rhogam: NA LARC form signed: yes Problem list reviewed and updated with the most current plan of care details and appropriate orders placed. Relevant counseling for the gestational age provided. Continue routine care and follow up unless otherwise noted in visit notes/problem list details Initial Weight: 125 lb Date -???-???-???-???-???-??? -???-???-???-???-???-??? - EGA Weight BP Urine Prot -???-???-???-???-???-??? -???-???-???-???-???-??? - Glucose FHR FuHt Pres Dilation -???-???-???-???-???-??? -???-???-???-???-???-??? - Effaced St Visit Note 05/29/24 -???-???-???-???-???-??? -???-???-???-???-???-??? - 8w 1d 125 lb 4 oz (+4 oz) 127/76 -???-???-???-???-???-??? -???-???-???-???-???-??? - 166 -???-???-???-???-???-??? -???-???-???-???-???-??? - LC CRL 1.62 not con with LMP. LMP changed to 01/07/2025. desires nipt/carrier screening. will return in 2 weeks. 07/01/24 -???-???-???-???-???-??? -???-???-???-???-???-??? - 12w 6d 124 lb 6 oz (-10 oz) 107/61 Negative -???-???-???-???-???-??? -???-???-???-???-???-??? - Negative 145 -???-???-???-???-???-??? -???-???-???-???-???-??? - MH-No VB. Na usea problematic. Gayle sent. 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 Br US confirm FHT 07/28/24 -???-???-???-???-???-??? -???-???-???-???-???-??? - 16w 5d 127 lb (+2 lb) 112/70 Negative -???-???-???-???-???-??? -???-???-???-???-???-??? - Negative 142 -???-???-???-???-???-??? -???-???-???-???-???-??? - JV- no compl aints today other than FOB needs labs for CF. 08/26/24 -???-???-???-???-???-??? -???-???-???-???-???-??? - 20w 6d 129 lb (+4 lb) 108/62 Negative -???-???-???-???-???-??? -???-???-???-???-???-??? - Negative 135 -???-???-???-???-???-??? -???-???-???-???-???-??? - SM- no vb lo f good fm no reuglar ctx 09/22/24 -???-???-???-???-???-??? -???- (more content not included)... Normal [facility] Platelet countOrdered By: Dave Voss on 11-25-2024 Platelets (Bld) [#/Vol] 338 10*3/uL 150-[address] [facility] RBC Auto (Bld) [#/Vol]Ordere d By: Ramya Voss on 11-25-2024 RBC (Bld) [#/Vol] 3.58 10*6/uL Low 4.2-5.[address] [facility] White blood cell (WBC) count Ordered By: Ramya Voss on 11-25-2024 WBC (Bld) [#/Vol] 16.0 10*3/uL High 4.4-11.[address] [facility] Laboratory - Chemistry and C hemistry - challengeOrdered By: Mimi Caldera on 11-11-2024 Glucose Ql (U) Negative [facility] Laboratory - UrinalysisOrder ed By: Mimi Caldera on 11-11-2024 Protein Ql (U) Negative [facility] Certified Endoscopy Technician Office Visit Reporton 11-11-2024 Certified Endoscopy Technician Office Visit Report [facility] [address], [address] [place] [address] OFFICE VISIT Date of Service: 11/11/24 MR#: [id number] Acct: [id number] Name: AIMEE REDDY Rep #: [id number] : 2000 Provider: Dr. Mimi Garcia DO Age/Sex: 24/F Location: [facility] – [place] Status: Signed Intake Vital Signs 07/01/24 09:26 10/27/24 09:21 11/11/24 09:33 Height 5 ft 4 in 5 ft 4 in 5 ft 4 in Weight: 144 lb BMI 24.7 BP 117/76 Intake Visit Reasons: 32wk ob Chief Complaint: 32 Week OB 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 Is patient in pain?: No Allergies No Known Allergies Allergy (Verified 11/11/24 09:33) Medications ???Medication ???Instructions ???Recorded ???Confirmed ???Type PNV 153-FA 400 mcg-om3 35 mg-dha tab PO 05/14/24 11/11/24 History 25 mg-epa 5 mg-fish oil chew tablet acetaminophen 325 mg tablet 650 mg PO Q4H PRN pain 09/22/24 History (Tylenol) cephalexin 500 mg capsule 500 mg PO BID #60 caps 10/14/24 Rx Last Menstrual Period: 03/24/24 Zika: Zika virus screening: Negative : No PFSH PFSH Surgical History History of splenectomy Social History adopted: No household members: family current occupational status: employed current occupation: [employer] pets and animals: Yes pets and animals: dog(s) history of recent travel: No sexually active: Yes Smoking Status: Former smoker Electronic Cigarette Use: with nicotine alcohol intake: current alcohol intake frequency: a few times a month details: not while substance use type: does not use well-balanced diet: daily or most days caffeine: No eating out: 1-3 times/week during the past year weight has: remained stable what type of physical activity do you participate in: none ana m/alevism: Anabaptism seatbelt use: always do you feel safe at home: Yes additional social history: BF- [employer]- [employer] [facility] R History 1 Elective abortions Hx Para 0 Spontaneous abortions Hx # Term Pregnancies Ectopic pregnancies Hx # Pregnancies Multiple births # of living children HPI 32wk ob Details: AIMEE REDDY is a 24 year old who presents for routine OB visit. OB Visit TERESITA Calculator Estimated Delivery Date Method Current WG Current Estimate 01/07/25 Ultrasound #1 31w 6d Other Estimates 12/29/24 LMP (Certain) 33w 1d Expected Delivery Route/Plan Labor Preferences- CB/BF classes: enc labor support person: [] labor intervention preferences: [] pain management options preferred: [] cut cord/dad catch: [] : [] PP control planned: [] discussed possible routes of delivery and associated risks: [] special requests: [] Specific Issue/Plans Covid status: [] Flu vaccine: [] Tdap vaccine: [] Rhogam: [] LARC form signed: [] Problem list reviewed and updated with the most current plan of care details and appropriate orders placed. Relevant counseling for the gestational age provided. Continue routine care and follow up unless otherwise noted in visit notes/problem list details Initial Weight: 125 lb Date -???-???-???-???-???-??? -???-???-???-???-???-??? - EGA Weight BP Urine Prot -???-???-???-???-???-??? -???-???-???-???-???-??? - Glucose FHR FuHt Pres Dilation -???-???-???-???-???-??? -???-???-???-???-???-??? - Effaced St Visit Note 05/29/24 -???-???-???-???-???-??? -???-???-???-???-???-??? - 8w 1d 125 lb 4 oz (+4 oz) 127/76 -???-???-???-???-???-??? -???-???-???-???-???-??? - 166 -???-???-???-???-???-??? -???-???-???-???-???-??? - LC CRL 1.62 not con with LMP. LMP changed to 01/07/2025. desires nipt/carrier screening. will return in 2 weeks. 07/01/24 -???-???-???-???-???-??? -???-???-???-???-???-??? - 12w 6d 124 lb 6 oz (-10 oz) 107/61 Negative -???-???-???-???-???-??? -???-???-???-???-???-??? - Negative 145 -???-???-???-???-???-??? -???-???-???-???-???-??? - MH-No VB. Na usea problematic. Gayle sent. 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 Br US confirm FHT 07/28/24 -???-???-???-???-???-??? -???-???-???-???-???-??? - 16w 5d 127 lb (+2 lb) 112/70 Negative -???-???-???-???-???-??? -???-???-???-???-???-??? - Negative 142 -???-???-???-???-???-??? -???-???-???-???-???-??? - JV- no compl aints today other than FOB needs labs for CF. 08/26/24 -???-???-???-???-???-??? -???-???-???-???-???-??? - 20w 6d 129 lb (+4 lb) 108/62 Negative -???-???-???-???-???-??? -???-???-???-???-???-??? - Negative 135 -???-???-???-???-???-??? -???-???-???-???-???-??? - SM- no vb lo f good fm no reuglar ctx 09/22/24 -???-???-???-???-???-??? -???-???-???-???-???-??? - 24w 5d 137 l (more content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 documented in ED Course. Details: Strep was negative Clinical Impression: 1. Acute viral pharyngitis ED Disposition ED Disposition Discharge Condition Stable Comment Aimee Reddy discharged to home/self care in stable condition. Follow-up Information Follow-up information has not been specified. Contact information for after-discharge care Follow-up information has not been specified. [1] Social History Socioeconomic History Marital status: Single Tobacco Use Smoking status: Never Smokeless tobacco: Never Vaping Use Vaping status: Every Day Substances: Nicotine Substance and Sexual Activity Alcohol use: Yes Comment: weekends Drug use: Never Sexual activity: Not Currently Social Drivers of Health Financial Resource Strain: Unknown (11/16/2021) Received from [facility] Overall Financial Resource Strain (CARDIA) Difficulty of Paying Living Expenses: Patient declined Food Insecurity: Unknown (11/16/2021) Received from [facility] Hunger Vital Sign Worried About Running Out of Food in the Last Year: Patient declined Ran Out of Food in the Last Year: Patient declined Transportation Needs: Unknown (11/16/2021) Received from [facility] PRAPARE - Transportation Lack of Transportation (Medical): Patient declined Lack of Transportation (Non-Medical): Patient declined Physical Activity: Unknown (11/16/2021) Received from [facility] Exercise Vital Sign Days of Exercise per Week: Patient declined Minutes of Exercise per Session: Patient declined Stress: Unknown (11/16/2021) Received fro (more content not included)... Normal [facility] POC STREP A - MOLECULAR RALS on 10-08-2024 POC STREP A SCREEN Negative Normal Negative [facility] Cult, Bloodon 09-28-2024 Cult, Blood Specimen Description .BLOOD Special Requests RIGHT HAND Culture POSITIVE Blood Culture DIRECT GRAM STAIN FROM BOTTLE: GRAM POSITIVE RODS DIPHTHEROIDS A single positive blood culture of coagulase negative Staphylocci, diphtheroids,micrococci, Cutibacterium, viridans Streptocci, Bacillus, or Lactobacillus species should be interpreted with caution and viewed as a likely skin contaminant. (NOTE) Direct Gram Stain from bottle result called to and read back by:ACE ONTIVEROS [id number] PER DY/NM Report Status FINAL 09/28/2024 [facility] Comment on above: Performed By: #### B CUL2 #### [facility] [address] [place] [address] [id number] Diagnostic Imaging Manager: Victor Manuel Washington MD [facility] [address] [place] [address] Diagnostic Imaging Manager: Ric Eldridge MD Cult,Bloodon 09-28-2024 Cult,Blood Specimen Description .BLOOD Special Requests RIGHT AC Culture NO GROWTH 6 DAYS Report Status FINAL 09/28/2024 [facility] Comment on above: Performed By: #### B C #### [facility] [address] [place] [address] Diagnostic Imaging Manager: Ric Eldridge MD Cult,Urineon 09-24-2024 Cult,Urine Specimen Description .URINE, MIDSTREAM Culture ESCHERICHIA COLI >100,000 CFU/ML Report Status FINAL 09/24/2024 SUSCEPTIBILITY Organism ESCHERICHIA COLI Method HUMERA Ampicillin 16 INTERMEDIATE Cefazolin <=4 SUSCEPTIBLE Cefazolin sensitivity results can be used to predict the effectiveness of oral cephalosporins (eg. Cephalexin) in uncomplicated Urinary Tract Infections due to E. coli, K. pneumoniae, and P. mirabilis Ceftriaxone <=0.25 SUSCEPTIBLE ESBL NEGATIVE Gentamicin <=1 SUSCEPTIBLE Levofloxacin <=0.12 SUSCEPTIBLE Nitrofurantoin <=16 SUSCEPTIBLE Piperacillin/Tazobactam <=4 SUSCEPTIBLE Tobramycin <=1 SUSCEPTIBLE Trimethoprim/Sulfa <=20 SUSCEPTIBLE Susceptible [facility] Comment on above: Performed By: #### U RC #### [facility] [address] [place] [address] Diagnostic Imaging Manager: Victor Manuel Washington MD [facility] [address] [place] [address] Diagnostic Imaging Manager: Ric Eldridge MD Absolute lymphocyte countOrd ered By: Mimi Caldera on 09-23-2024 Lymphocytes Auto (Unsp spec) [#/Vol] 2.23 10*3/uL 0.83-4.[address] [facility] Comment on above: Previous reported re sult: 2.88 X10^3/uLEdited by: JOSEPH on 09/23/24:0811 AMENDED REPORT 09/23/24 0811 Absolute Lymph previously reported as: 2.88 X10^3/uL Absolute neutrophil countOrd ered By: Mimi Caldear on 09-23-2024 Neutrophils (Bld) [#/Vol] 14.3 10*3/uL High 2.0-7.[address] [facility] Comment on above: Previous reported re sult: 13.2 X10^3/uLEdited by: JOSEPH on 09/23/24:0813 AMENDED REPORT 09/23/24 0813 Absolute Neut previously reported as: 13.2 H X10^3/uL Automated lymphocyte count a s percentage of total leukocytesOrdered By: Mimi Caldera on 09-23-2024 Lymphocytes/100 WBC Auto (Unsp spec) AUXILIARY ENGINEER [facility] Comment on above: Previous reported re sult: 15.5 %Edited by: JOSEPH on 09/23/24:0809 Basophil percentageOrdered B y: Mimi Caldera on 09-23-2024 Basophils (%) (Auto) AUXILIARY ENGINEER [facility] Comment on above: Previous reported re sult: 0.3 %Edited by: JOSEPH on 09/23/24:0809 Blood band neutrophil count as percentage of total leukocytesOrdered By: Mimi Caldera on 09-23-2024 Band form neutrophils/100 WBC (Bld) 3 % 0-[address] [facility] Blood eosinophils/100 leukoc ytesOrdered By: Mimi Caldera on 09-23-2024 Eosinophils/100 WBC (Bld) 2 % 0-[address] [facility] Blood lymphocytes/100 leukoc ytesOrdered By: Mimi Caldera on 09-23-2024 Lymphocytes/100 WBC (Bld) 12 % Low 19-[address] [facility] Blood metamyelocytes/100 steph kocytesOrdered By: iMmi Caldera on 09-23-2024 Metamyelocytes/100 WBC (Bld) Not Reportable [facility] Blood monocytes/100 leukocyt esOrdered By: Mimi Caldera on 09-23-2024 Monocytes/100 WBC (Bld) 9 % 0-[address] [facility] Blood polychromasia detectio n by light microscopyOrdered By: Mimi Caldera on 09-23-2024 Polychromasia LM Ql (Bld) 1+ [facility] Blood promyelocytes/100 leuk ocytesOrdered By: Mimi Caldera on 09-23-2024 Promyelocytes/100 WBC (Bld) Not Reportable [facility] Blood segmented neutrophils/ 100 leukocytesOrdered By: Mimi Caldera on 09-23-2024 Segmented neutrophils/100 WBC (Bld) 74 % High 47-[address] [facility] Eosinophil percentageOrdered By: Mimi Caldera on 09-23-2024 Eosinophils (%) (Auto) AUXILIARY ENGINEER [facility] Comment on above: Previous reported re sult: 1.5 %Edited by: JOSEPH on 09/23/24:0809 Erythrocyte distribution wid th (RBC) [Ratio]Ordered By: Mimi Caldera on 09-23-2024 Erythrocyte distribution width (RBC) [Entitic vol] 46.9 fL High 35.1-43.[address] [facility] Erythrocyte distribution wid th ratioOrdered By: Mimi Caldera on 09-23-2024 Erythrocyte distribution width (RBC) [Ratio] 13.8 % 11.6-14.[address] [facility] Erythrocyte distribution wid th standard deviationOrdered By: Mimi Caldera on 09-23-2024 Erythrocyte distribution width (RBC) [Ratio] 46.9 fl High 35.1-43.[address] [facility] Hematocrit Auto (Bld) [Volum e fraction]Ordered By: Mimi Caldera on 09-23-2024 Hematocrit (Bld) [Volume fraction] 28.0 % Low 37-[address] [facility] Hemoglobin measurementOrdere d By: Mimi Caldera on 09-23-2024 Hemoglobin (Bld) [Mass/Vol] 9.4 g/dL Low 12.0-15.[address] [facility] Immature granulocytes/100 WB C Auto (Bld)Ordered By: Mimi Caldera on 09-23-2024 Immature Granulocyte % (Auto) AUXILIARY ENGINEER [facility] Comment on above: Previous reported re sult: 1.000 %Edited by: JOSEPH on 09/23/24:0809IG% - Immature Granulocytes (promyelocytes, myelocytes and metamyelocytes) > 1% indicates that a LEFT SHIFT is Present. Immature granulocytes/100 WBC (Bld) AUXILIARY ENGINEER [facility] Comment on above: Previous reported re sult: 1.000 %Edited by: JOSEPH on 09/23/24:0809IG% - Immature Granulocytes (promyelocytes, myelocytes and metamyelocytes) > 1% indicates that a LEFT SHIFT is Present. Laboratory - Hematology and Cell countsOrdered By: Mimi Caldera on 09-23-2024 Anisocytosis Ql (Bld) 1+ [facility] Lymphocytes Auto (Unsp spec) [#/Vol]Ordered By: Mimi Caldera on 09-23-2024 Lymphocytes (Bld) [#/Vol] 2.23 10*3/uL 0.83-4.[address] [facility] Comment on above: Previous reported re sult: 2.88 X10^3/uLEdited by: JOSEPH on 09/23/24:0811 AMENDED REPORT 09/23/24 0811 Absolute Lymph previously reported as: 2.88 X10^3/uL Lymphocytes/100 WBC Auto (Un sp spec)Ordered By: Mimi Caldera on 09-23-2024 Lymphocytes (%) (Auto) AUXILIARY ENGINEER [facility] Comment on above: Previous reported re sult: 15.5 %Edited by: JOSEPH on 09/23/24:0809 MCV (mean corpuscular volume ) determinationOrdered By: Mimi Caldera on 09-23-2024 MCV (RBC) [Entitic vol] 91.5 fL 81-[address] [facility] Mean corpuscular hemoglobin (MCH) determinationOrdered By: Mimi Caldera on 09-23-2024 MCH (RBC) [Entitic mass] 30.7 pg 27.0-32.[address] [facility] Mean corpuscular hemoglobin concentration (MCHC) determinationOrdered By: Mimi Caldera on 09-23-2024 MCHC (RBC) [Mass/Vol] 33.6 g/dL 32-36 [facility] Mean platelet volume determi nationOrdered By: Mimi Caldera on 09-23-2024 Platelet mean volume (Bld) [Entitic vol] 11.9 fL 6.2-12.[address] [facility] Metamyelocytes/100 WBC (Bld) Ordered By: Mimi Caldera on 09-23-2024 Metamyelocytes % Not Reportable [facility] Monocyte percentageOrdered B y: Mimi Caldera on 09-23-2024 Monocytes (%) (Auto) AUXILIARY ENGINEER [facility] Comment on above: Previous reported re sult: 10.7 %Edited by: JOSEPH on 09/23/24:0809 Neutrophil percentageOrdered By: Mimi aCldera on 09-23-2024 Neutrophils (%) (Auto) AUXILIARY ENGINEER [facility] Comment on above: Previous reported re sult: 71.0 %Edited by: JOSEPH on 09/23/24:0809 Nucleated red blood cell per centageOrdered By: Mimi Caldera on 09-23-2024 Nucleated RBC/100 WBC (Bld) [Ratio] 0 % 0-[address] [facility] OB Limited With Biometricson 09-23-2024 OB Limited With Biometrics [facility] Imaging Services [address] [place] [address] OB Limited With Biometrics MR#: [id number] Acct: [id number] Name: AIMEE REDDY Rep #: [id number] : 2000 F 24 From: Yogesh Cabrales MD PCP: Status: ADM IN Study: OB Limited With Biometrics Date of Exam: 09/23 Exam# [id number] Ordering Dr: Leonor Phillips EXAM: US Pelvis Transabdominal, Complete CLINICAL INDICATION: GROWTH TECHNIQUE: Real-time complete transabdominal pelvic ultrasound with image documentation. COMPARISON: No relevant prior studies available. FINDINGS: UTERUS/CERVIX: Unremarkable. Normal endometrial stripe thickness. No myometrial mass. RIGHT OVARY: Unremarkable. No mass. Normal blood flow. LEFT OVARY: Unremarkable. No mass. Normal blood flow. FREE FLUID: No free fluid. BLADDER: Unremarkable as visualized. Wall is normal thickness for degree of distention. OTHER FINDINGS: Breech presentation. heart rate 157 beats per minute. WEN within normal limits. Maximum vertical pocket is 6.4 cm. Anterior placenta. Grade 0. BPD 6.0 cm. OFD 8.0 cm. HC 22.7 cm. AC 20.6 cm. FL 4.5 cm. FL/AC 22%. FL/BPD 75%. FL/HC 20 %. CI 75%. HC/AC 1.10. Estimated weight 761 g. Gestational age 24 weeks and 5 days. TERESITA 01/08/2025. US/OB Limited With Biometrics IMPRESSION: A single live intrauterine as above. Reading Location: [facility] CC: Dr. Leonor Phillips MD Stem Roller Or Crusher Operator: Signed Normal [facility] Pathologist review Zhang (Unsp spec) [Interp]Ordered By: Mimi Caldera on 09-23-2024 Differential Pathologist's Review Fanny [facility] Differential Pathologist's Review Reviewed [facility] Comment on above: Previous reported re sult: Fanny delaney Edited by: DON on 09/27/24:1436 AMENDED REPORT 09/27/24 1436 PATH REV previously reported as: Fanny delaney Previous reported result: N/A Edited by: DON on 09/27/24:1504 AMENDED REPORT 09/27/24 1504 PATH REV previously reported as: N/A Previous reported result: Fanny delaney Edited by: ИРИНА on 10/12/24:1609SEE REPORT IN PATIENT'S EMR AMENDED REPORT 10/12/24 1609 PATH REV previously reported as: Fanny delaney Platelet countOrdered By: Olman Caldera on 09-23-2024 Platelets (Bld) [#/Vol] 336 10*3/uL 150-[address] [facility] Platelet estimateOrdered By: Mimi Caldera on 09-23-2024 Platelets LM Ql (Bld) ADEQUATE ADEQ [facility] Platelets LM Ql (Bld)Ordered By: Mimi Caldera on 09-23-2024 Platelet Estimate ADEQUATE ADEQ [facility] Polychromasia LM Ql (Bld)Ord ered By: Mimi Caldera on 09-23-2024 Polychromasia 1+ [facility] Promyelocytes/100 WBC (Bld)O rdered By: Mimi Caldera on 09-23-2024 Promyelocytes % Not Reportable [facility] RBC Auto (Bld) [#/Vol]Ordere d By: Mimi Caldera on 09-23-2024 RBC (Bld) [#/Vol] 3.06 10*6/uL Low 4.2-5.[address] [facility] Review by pathologistOrdered By: Mimi Caldera on 09-23-2024 Pathologist review Zhang (Unsp spec) [Interp] Reviewed [facility] Comment on above: Previous reported re sult: Fanny delaney Edited by: DON on 09/27/24:1436 AMENDED REPORT 09/27/24 1436 PATH REV previously reported as: Fanny delaney Previous reported result: N/A Edited by: DON on 09/27/24:1504 AMENDED REPORT 09/27/24 1504 PATH REV previously reported as: N/A Previous reported result: Fanny delaney Edited by: ИРИНА on 10/12/24:1609SEE REPORT IN PATIENT'S EMR AMENDED REPORT 10/12/24 1609 PATH REV previously reported as: Fanny delaney Segmented neutrophils/100 WB C (Bld)Ordered By: Mimi Caldera on 09-23-2024 Neutrophils/100 WBC (Bld) 74 % High 47-[address] [facility] White blood cell (WBC) count Ordered By: Mimi Caldera on 09-23-2024 WBC (Bld) [#/Vol] 18.6 10*3/uL High 4.4-11.[address] [facility] BMPon 09-22-2024 Anion gap [Moles/Vol] 10 mmol/L 9 - 17 mmol/L [facility] Calcium [Mass/Vol] 6.8 mg/dL Low 8.6 - 10. 4 mg/dL [facility] Chloride [Moles/Vol] 104 mmol/L 98 - 10 7 mmol/L [facility] CO2 [Moles/Vol] 23 mmol/L 20 - 31 mmol/L [facility] Creatinine [Mass/Vol] 0.4 mg/dL Low 0.5 - 0.9 mg/dL [facility] Est, Jamia Reedjosefa Rate - PINF [facility] Comment on above: These results are not intended for use in patients <18 years of age. eGFR results are calculated without a race factor using the 2020 CKD-EPI equation. Careful clinical correlation is recommended, particularly when comparing to results calculated using previous equations. The CKD-EPI equation is less accurate in patients with extremes of muscle mass, extra-renal metabolism of creatine, excessive creatine ingestion, or following therapy that affects renal tubular secretion. Glucose [Mass/Vol] 73 mg/dL 70 - 99 mg/dL [facility] Potassium [Moles/Vol] 3.8 mmol/L 3.7 - 5.3 mmol/L [facility] Sodium [Moles/Vol] 137 mmol/L 135 - 144 mmol/L [facility] Urea nitrogen [Mass/Vol] 8 mg/dL 6 - 20 mg/dL [facility] Basic Metabolic Profon 09-22 Anion gap [Moles/Vol] 10 mmol/L Normal 9-17 [facility] Comment on above: Performed By: #### B MP, CDP, LIVP, LIP #### [facility] [address] [place] [address] Diagnostic Imaging Manager: Ric Eldridge MD Calcium [Mass/Vol] 6.8 mg/dL Low 8.6-10.4 [facility] Comment on above: Performed By: #### B MP, CDP, LIVP, LIP #### [facility] [address] [place], [place] [id number] Diagnostic Imaging Manager: Ric Eldridge MD Chloride [Moles/Vol] 104 mmol/L Normal 98-107 [facility] Comment on above: Performed By: #### B MP, CDP, LIVP, LIP #### [facility] [address] [place] [id number] Diagnostic Imaging Manager: Ric Eldridge MD CO2 [Moles/Vol] 23 mmol/L Normal 20-[address] [facility] Comment on above: Performed By: #### B MP, CDP, LIVP, LIP #### [facility] [address] [place] [address] Diagnostic Imaging Manager: Ric Eldridge MD Creatinine [Mass/Vol] 0.4 mg/dL Low 0.5-0.9 [facility] Comment on above: Performed By: #### B MP, CDP, LIVP, LIP #### [facility] [address] [place] [id number] Diagnostic Imaging Manager: Ric Eldridge MD GFR/1.73 sq M.predicted among non-blacks MDRD (S/P/Bld) [Vol rate/Area] mL/min/{1.73_m2} Normal >60 [facility] Comment on above: Result Comment: These results are not intended for use in patients <18 years of age. eGFR results are calculated without a race factor using the 2020 CKD-EPI equation. Careful clinical correlation is recommended, particularly when comparing to results calculated using previous equations. The CKD-EPI equation is less accurate in patients with extremes of muscle mass, extra-renal metabolism of creatine, excessive creatine ingestion, or following therapy that affects renal tubular secretion. Performed By: #### B MP, CDP, LIVP, LIP #### [facility] [address] [place] [id number] Diagnostic Imaging Manager: Ric Eldridge MD Glucose [Mass/Vol] 73 mg/dL Normal 70-99 [facility] Comment on above: Performed By: #### B MP, CDP, LIVP, LIP #### [facility] [address] [place], [place] [phone] Diagnostic Imaging Manager: Ric Eldridge MD Potassium [Moles/Vol] 3.8 mmol/L Normal 3.7-5.3 [facility] Comment on above: Performed By: #### B MP, CDP, LIVP, LIP #### [facility] [address] [place], [place] [phone] Diagnostic Imaging Manager: Ric Eldridge MD Sodium [Moles/Vol] 137 mmol/L Normal 135-144 [facility] Comment on above: Performed By: #### B MP, CDP, LIVP, LIP #### [facility] [address] [place] [phone] Diagnostic Imaging Manager: Ric Eldridge MD Urea nitrogen [Mass/Vol] 8 mg/dL Normal 6-20 [facility] Comment on above: Performed By: #### B MP, CDP, LIVP, LIP #### [facility] [address] [place], [place] [phone] Diagnostic Imaging Manager: Ric Eldridge MD CBC with Auto Differentialon 09-22-2024 Absolute Bands 1.04 High [facility] Bands 5 % 0 - 10 % [facility] Basophils (Bld) [#/Vol] [facility] Basophils/100 WBC (Bld) 0 - 2 % [facility] Eosinophils % 0 - 5 % [facility] Eosinophils (Bld) [#/Vol] [facility] Erythrocyte distribution width (RBC) [Ratio] 13.9 % 12.1 - 15.2 % [facility] Hematocrit (Bld) [Volume fraction] 33.5 % Low 36.0 - 46.0 % [facility] Hemoglobin (Bld) [Mass/Vol] 11.3 g/dL Low 12.0 - 16.0 g/dL [facility] Immature granulocytes (Bld) [#/Vol] [facility] Immature granulocytes/100 WBC (Bld) 0 % [facility] Interpretation and review of laboratory results Abnormal [facility] Lymphocytes/100 WBC (Bld) 18 % 15 - 40 % [facility] Lymphocytes/100 WBC (Bld) 3.74 % [facility] MCH (RBC) [Entitic mass] 31 pg 26.0 - 34.0 pg [facility] MCHC (RBC) [Mass/Vol] 33.7 g/dL 31.0 - 37.0 g/dL [facility] MCV (RBC) [Entitic vol] 91.8 fL 80.0 - 100.0 fL [facility] Monocytes/100 WBC (Bld) 7 % 4 - 8 % [facility] Monocytes/100 WBC (Bld) 1.46 % High [facility] Morphology Zhang (Bld) [Interp] Manual Differential Performed [facility] Neutrophils/100 WBC (Bld) 70 % 47 - 75 % [facility] Platelet mean volume (Bld) [Entitic vol] 11 fL 6.0 - 12.0 fL [facility] Platelets (Bld) [#/Vol] 335 10*3/uL [facility] RBC (Bld) [#/Vol] 3.65 10*6/uL Low 4.00 - 5.2 0 m/uL [facility] Segmented neutrophils/100 WBC (Bld) 14.56 % High [facility] WBC other (Bld) [#/Vol] 20.8 Critically [address] [facility] CBC with Diffon 09-22-2024 Abs. Bands 1.04 k/uL High 0.0-1.0 [facility] Comment on above: Performed By: #### B MP, CDP, LIVP, LIP #### [facility] [address] [place] [address] Diagnostic Imaging Manager: Ric Eldridge MD Abs. Basophil Normal 0.0-0.2 [facility] Comment on above: Performed By: #### B MP, CDP, LIVP, LIP #### [facility] [address] [place], [place] [id number] Diagnostic Imaging Manager: Ric Eldridge MD Abs. Eosinophil Normal 0.0-0.[address] [facility] Comment on above: Performed By: #### B MP, CDP, LIVP, LIP #### [facility] [address] [place], [place] [id number] Diagnostic Imaging Manager: Ric Eldridge MD Abs.Imm.Granulocyte Normal 0.00-0.30 [facility] Comment on above: Performed By: #### B MP, CDP, LIVP, LIP #### [facility] [address] [place] [address] Diagnostic Imaging Manager: Ric Eldridge MD Abs.Neutrophil (Seg) 14.56 k/uL High 2.5-7.0 [facility] Comment on above: Performed By: #### B MP, CDP, LIVP, LIP #### [facility] [address] [place], [place] [id number] Diagnostic Imaging Manager: Ric Eldridge MD Bands 5 % Normal 0-10 [facility] Comment on above: Performed By: #### B MP, CDP, LIVP, LIP #### [facility] [address] [place] [address] Diagnostic Imaging Manager: Ric Eldridge MD Basophil Normal 0-2 [facility] Comment on above: Performed By: #### B MP, CDP, LIVP, LIP #### [facility] [address] [place], [place] [id number] Diagnostic Imaging Manager: Ric Eldridge MD Eosinophil Normal 0-5 [facility] Comment on above: Performed By: #### B MP, CDP, LIVP, LIP #### [facility] [address] [place] [address] Diagnostic Imaging Manager: Ric Eldridge MD Immature Granulocyte Normal 0 [facility] Comment on above: Performed By: #### B MP, CDP, LIVP, LIP #### [facility] [address] [place] [address] Diagnostic Imaging Manager: Ric Eldridge MD Lymphocytes (Bld) [#/Vol] 3.74 10*3/uL Normal 1.0-4.8 [facility] Comment on above: Performed By: #### B MP, CDP, LIVP, LIP #### [facility] [address] [place] [address] Diagnostic Imaging Manager: Ric Eldridge MD Lymphocytes/100 WBC (Bld) 18 % Normal 15-40 [facility] Comment on above: Performed By: #### B MP, CDP, LIVP, LIP #### [facility] [address] [place] [address] Diagnostic Imaging Manager: Ric Eldridge MD Monocytes (Bld) [#/Vol] 1.46 10*3/uL High 0.0-1.0 [facility] Comment on above: Performed By: #### B MP, CDP, LIVP, LIP #### [facility] [address] [place] [address] Diagnostic Imaging Manager: Ric Eldridge MD Monocytes/100 WBC (Bld) 7 % Normal 4-8 [facility] Comment on above: Performed By: #### B MP, CDP, LIVP, LIP #### [facility] [address] [place] [address] Diagnostic Imaging Manager: Ric Eldridge MD Morphology Zhang (Bld) [Interp] Manual Differential Performed Normal [facility] Comment on above: Performed By: #### B MP, CDP, LIVP, LIP #### [facility] [address] [place] [address] Diagnostic Imaging Manager: Ric Eldridge MD Neutrophil (Seg) 70 % Normal 47-75 [facility] Comment on above: Performed By: #### B MP, CDP, LIVP, LIP #### [facility] [address] [place] [address] Diagnostic Imaging Manager: Ric Eldridge MD Erythrocyte distribution width (RBC) [Ratio] 13.9 % Normal 12.1-15.2 [facility] Comment on above: Performed By: #### B MP, CDP, LIVP, LIP #### [facility] [address] [place] [address] Diagnostic Imaging Manager: Ric Eldridge MD Hematocrit (Bld) [Volume fraction] 33.5 % Low 36.0-46.0 [facility] Comment on above: Performed By: #### B MP, CDP, LIVP, LIP #### [facility] [address] [place] [address] Diagnostic Imaging Manager: Ric Eldridge MD Hemoglobin (Bld) [Mass/Vol] 11.3 g/dL Low 12.0-16.0 [facility] Comment on above: Performed By: #### B MP, CDP, LIVP, LIP #### [facility] [address] [place] [address] Diagnostic Imaging Manager: Ric Eldridge MD MCH (RBC) [Entitic mass] 31.0 pg Normal 26.0-34.0 [facility] Comment on above: Performed By: #### B MP, CDP, LIVP, LIP #### [facility] [address] [place] [address] Diagnostic Imaging Manager: Ric Eldridge MD MCHC (RBC) [Mass/Vol] 33.7 g/dL Normal 31.0-37.0 [facility] Comment on above: Performed By: #### B MP, CDP, LIVP, LIP #### [facility] [address] [place] [address] Diagnostic Imaging Manager: Ric Eldridge MD MCV (RBC) [Entitic vol] 91.8 fL Normal 80.0-100.0 [facility] Comment on above: Performed By: #### B MP, CDP, LIVP, LIP #### [facility] [address] [place] [address] [phone] Diagnostic Imaging Manager: Ric Eldridge MD Platelet mean volume (Bld) [Entitic vol] 11.0 fL Normal 6.0-12.0 [facility] Comment on above: Performed By: #### B MP, CDP, LIVP, LIP #### [facility] [address] [place], [place] [phone] Diagnostic Imaging Manager: Ric Eldridge MD Platelets (Bld) [#/Vol] 335 10*3/uL Normal 140-450 [facility] Comment on above: Performed By: #### B MP, CDP, LIVP, LIP #### [facility] [address] [place] [address] [phone]) Diagnostic Imaging Manager: Ric Eldridge MD RBC (Bld) [#/Vol] 3.65 10*6/uL Low 4.00-5.20 [facility] Comment on above: Performed By: #### B MP, CDP, LIVP, LIP #### [facility] [address] [place] [address] [phone]) Diagnostic Imaging Manager: Ric Eldridge MD WBC (Bld) [#/Vol] 20.8 10*3/uL Critically high 3.5-11.0 [facility] Comment on above: Performed By: #### B MP, CDP, LIVP, LIP #### [facility] [address] [place] [address] [phone] Diagnostic Imaging Manager: Ric Eldridge MD H AND P Exam - OB/GYNon H&P Exam - HONING JOB SETTER [facility] Medical Records Department [address] [place] [address] H P Exam - HONING JOB SETTER 09/22/24 1735 MR#: [id number] Acct: [id number] Name: AIMEE REDDY Rep #: [id number] : 2000 24 From: Mimi Thomas DO PCP: Status:ADM ASMITA Location: [place] [id number] HPI - General General Date of Admission: 09/22/24 HPI Narrative AIMEE REDDY, is a 24 y/o @ 24 weeks 5 days who presents to [facility] from [facility] with the diagnosis of acute pyelonephritis in . This was based on an elevated WBC count, 4+ bacteria in the urine, and fevers at home. She also has lower back pain and right upper back pain. She denies nausea, vomiting, diarrhea, shortness of breath, or chest pain. Maternal Data Information TERESITA Calculator Estimated Delivery Date Method Current WG Current Estimate 01/07/25 Ultrasound #1 24w 5d Other Estimates 12/29/24 LMP (Certain) 26w 0d PFSH PFSH Home Medications ???Medication ???Instructions ???Recorded ???Last Taken ???Type PNV 153-FA 400 mcg-om3 35 mg-dha tab PO 05/14/24 Unknown History 25 mg-epa 5 mg-fish oil chew tablet ondansetron 4 mg disintegrating 4 mg PO Q4H PRN nausea and 5 09/20/24 Rx tablet vomiting #60 tabs acetaminophen 325 mg tablet 650 mg PO Q4H PRN pain 09/22/24 06:00 History (Tylenol) Allergy/AdvReac Type Severity Reaction Status Date / Time No Known Allergies Allergy Verified 09/22/24 16:43 Surgical History History of splenectomy Social History adopted: No household members: family current occupational status: employed current occupation: [employer] pets and animals: Yes pets and animals: dog(s) history of recent travel: No sexually active: Yes Smoking Status: Former smoker Electronic Cigarette Use: with nicotine alcohol intake: current alcohol intake frequency: a few times a month details: not while substance use type: does not use well-balanced diet: daily or most days caffeine: No eating out: 1-3 times/week during the past year weight has: remained stable what type of physical activity do you participate in: none ana m/alevism: Anabaptism seatbelt use: always do you feel safe at home: Yes additional social history: BF- Bhaskar Coley History 1 Elective abortions Hx Para 0 Spontaneous abortions Hx # Term Pregnancies Ectopic pregnancies Hx # Pregnancies Multiple births # of living children Visit Details Expected Delivery Route/Plan Labor Preferences- CB/BF classes: enc labor support person: [] labor intervention preferences: [] pain management options preferred: [] cut cord/dad catch: [] : [] PP control planned: [] discussed possible routes of delivery and associated risks: [] special requests: [] Plans Covid status: [] Flu vaccine: [] Tdap vaccine: [] Rhogam: [] LARC form signed: [] Problem list reviewed and updated with the most current plan of care details and appropriate orders placed. Relevant counseling for the gestational age provided. Continue routine care and follow up unless otherwise noted in visit notes/problem list details OB Flowsheet Initial Weight: 125 lb Date -???-???-???-???-???-??? -???-???-???-???-???-??? - EGA Weight BP Urine Prot -???-???-???-???-???-??? -???-???-???-???-???-??? - Glucose FHR FuHt Pres Dilation -???-???-???-???-???-??? -???-???-???-???-???-??? - Effaced St Visit Note 05/29/24 -???-???-???-???-???-??? -???-???-???-???-???-??? - 8w 1d 125 lb 4 oz (+4 oz) 127/76 -???-???-???-???-???-??? -???-???-???-???-???-??? - 166 -???-???-???-???-???-??? -???-???-???-???-???-??? - LC CRL 1.62 not con with LMP. LMP changed to 01/07/2025. desires nipt/carrier screening. will return in 2 weeks. 07/01/24 -???-???-???-???-???-??? -???-???-???-???-???-??? - 12w 6d 124 lb 6 oz (-10 oz) 107/61 Negative -???-???-???-???-???-??? -???-???-???-???-???-??? - Negative 145 -???-???-???-???-???-??? -???-???-???-???-???-??? - MH-No VB. Na usea problematic. Gayle sent. 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 Br US confirm FHT 07/28/24 -???-???-???-???-???-??? -???-???-???-???-???-??? - 16w 5d 127 lb (+2 lb) 112/70 Negative -???-???-???-???-???-??? -???-???-???-???-???-??? - Negative 142 -???-???-???-???-???-??? -???-???-???-???-???-??? - JV- no compl aints today other than FOB needs labs for CF. 08/26/24 -???-???-???-???-???-??? -???-???-???-???-???-??? - 20w 6d 129 lb (+4 lb) 108/62 Negative -???-???-???-???-???-??? -???-???-???-???-???-??? - Negative 135 -???-???-???-???-???-??? -???-???-???-???-???-??? - SM- no vb lo f good fm no reuglar ctx 09/22/24 -??? (more content not included)... Normal [facility] Hepatic Function Panelon Albumin [Mass/Vol] 3.7 g/dL 3.5 - 5.2 g/dL [facility] Albumin/Globulin [Mass ratio] 1 {ratio} 1.0 - 2.5 [facility] ALP [Catalytic activity/Vol] 86 U/L 35 - 104 U/L [facility] ALT [Catalytic activity/Vol] 18 U/L 5 - 33 U/L [facility] AST [Catalytic activity/Vol] 19 U/L NINF - 32 U/L [facility] Bilirubin [Mass/Vol] mg/dL Low 0.3 - 1 .2 mg/dL [facility] Bilirubin.direct [Mass/Vol] mg/dL NINF - 0.3 mg/dL [facility] Bilirubin.indirect [Mass/Vol] Can not be calculated 0.0 - 1.0 mg/dL [facility] Globulin (S) [Mass/Vol] 3.6 g/dL 1.5 - 3.8 g/dL [facility] Interpretation and review of laboratory results Abnormal [facility] [employer] Protein [Mass/Vol] 7.3 g/dL 6.4 - 8.3 g/dL [facility] Laboratory - Chemistry and C hemistry - challengeOrdered By: Ramya Voss on 09-22-2024 Glucose Ql (U) Negative [facility] Laboratory - UrinalysisOrder ed By: Ramya Voss on 09-22-2024 Protein Ql (U) Negative [facility] Lipaseon 09-22-2024 Lipase [Catalytic activity/Vol] 10 U/L Low 13 - 60 U/L [facility] Lipase [Catalytic activity/Vol] 10 U/L Low 13-60 [facility] Comment on above: Performed By: #### B MP, CDP, LIVP, LIP #### [facility] [address] [place] [address] Diagnostic Imaging Manager: Ric Eldridge MD Liver Profileon 09-22-2024 ALT [Catalytic activity/Vol] 18 U/L Normal 5-33 [facility] Comment on above: Performed By: #### B MP, CDP, LIVP, LIP #### [facility] [address] [place] [address] Diagnostic Imaging Manager: Ric Eldridge MD Albumin [Mass/Vol] 3.7 g/dL Normal 3.5-5.2 [facility] Comment on above: Performed By: #### B MP, CDP, LIVP, LIP #### [facility] [address] [place] [address] Diagnostic Imaging Manager: Ric Eldridge MD Albumin/Glob Ratio 1.0 Normal 1.0-2.5 [facility] Comment on above: Performed By: #### B MP, CDP, LIVP, LIP #### [facility] [address] [place] [address] Diagnostic Imaging Manager: Ric Eldridge MD Alkaline Phos 86 U/L Normal 35-104 [facility] Comment on above: Performed By: #### B MP, CDP, LIVP, LIP #### [facility] [address] [place], [place] [phone] Diagnostic Imaging Manager: Ric Eldridge MD AST [Catalytic activity/Vol] 19 U/L Normal <32 [facility] Comment on above: Performed By: #### B MP, CDP, LIVP, LIP #### [facility] [address] [place], [place] [phone] Diagnostic Imaging Manager: Ric Eldridge MD Bilirubin [Mass/Vol] mg/dL Low 0.3-1.2 [facility] Comment on above: Performed By: #### B MP, CDP, LIVP, LIP #### [facility] [address] [place] [address] Diagnostic Imaging Manager: Ric Eldridge MD Bilirubin, Indirect Can not be calculated Normal 0.0-1 .0 [facility] Comment on above: Performed By: #### B MP, CDP, LIVP, LIP #### [facility] [address] [place], [place] [phone] Diagnostic Imaging Manager: Ric Eldridge MD Bilirubin.indirect [Mass/Vol] mg/dL Normal <0.3 [facility] Comment on above: Performed By: #### B MP, CDP, LIVP, LIP #### [facility] [address] [place], [place] [phone] Diagnostic Imaging Manager: Ric Eldridge MD Globulin (S) [Mass/Vol] 3.6 g/dL Normal 1.5-3.8 [facility] Comment on above: Performed By: #### B MP, CDP, LIVP, LIP #### [facility] [address] [place], [place] [phone] Diagnostic Imaging Manager: Ric Eldridge MD Protein [Mass/Vol] 7.3 g/dL Normal 6.4-8.3 [facility] Comment on above: Performed By: #### B MP, CDP, LIVP, LIP #### [facility] [address] [place], [place] [phone] Diagnostic Imaging Manager: Ric Eldridge MD Microscopic Urinalysison - [facility] Bacteria LM Ql (Urine sed) 4+ Abnormal None [facility] Epithelial cells LM.HPF (Urine sed) [#/Area] 2 TO 5 /HPF [facility] Interpretation and review of laboratory results Abnormal [facility] RBC LM.HPF (Urine sed) [#/Area] 0 TO 2 [facility] WBC LM.HPF (Urine sed) [#/Area] 2 TO 5 0 /HPF [facility] No Panel Informationon 09-22 Interpretation and review of laboratory results Abnormal [facility] Certified Endoscopy Technician Office Visit Reporton 09-22-2024 Certified Endoscopy Technician Office Visit Report [facility] [address], [address] [place] [address] OFFICE VISIT Date of Service: 09/22/24 MR#: [id number] Acct: [id number] Name: AIMEE REDDY Rep #: [id number] : 2000 Provider: ANDREW early Age/Sex: 24/F Location: [facility] – [place] Status: Signed Intake Vital Signs 07/01/24 09:26 08/26/24 09:30 09/22/24 08:36 Height 5 ft 4 in 5 ft 4 in 5 ft 4 in Weight: 137 lb 4 oz BMI 23.6 BP 98/60 Intake Visit Reasons: 25wk ob Chief Complaint: 25 Week OB 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 Is patient in pain?: No Allergies No Known Allergies Allergy (Verified 09/22/24 08:36) Medications ???Medication ???Instructions ???Recorded ???Confirmed ???Type PNV 153-FA 400 mcg-om3 35 mg-dha tab PO 05/14/24 09/22/24 History 25 mg-epa 5 mg-fish oil chew tablet ondansetron 4 mg disintegrating 4 mg PO Q4H PRN nausea and 5 09/22/24 Rx tablet vomiting #60 tabs Last Menstrual Period: 03/24/24 Zika: Zika virus screening: Negative : No PFSH PFSH Surgical History History of splenectomy Social History adopted: No household members: family current occupational status: employed current occupation: [employer] pets and animals: Yes pets and animals: dog(s) history of recent travel: No sexually active: Yes Smoking Status: Former smoker Electronic Cigarette Use: with nicotine alcohol intake: current alcohol intake frequency: a few times a month details: not while substance use type: does not use well-balanced diet: daily or most days caffeine: No eating out: 1-3 times/week during the past year weight has: remained stable what type of physical activity do you participate in: none ana m/alevism: Anabaptism seatbelt use: always do you feel safe at home: Yes additional social history: BF- Bhaskar Coley History 1 Elective abortions Hx Para 0 Spontaneous abortions Hx # Term Pregnancies Ectopic pregnancies Hx # Pregnancies Multiple births # of living children HPI 25wk ob Details: AIMEE REDDY is a 24 year old who presents for routine OB visit. OB Visit TERESITA Calculator Estimated Delivery Date Method Current WG Current Estimate 01/07/25 Ultrasound #1 24w 5d Other Estimates 12/29/24 LMP (Certain) 26w 0d Expected Delivery Route/Plan Labor Preferences- CB/BF classes: enc labor support person: [] labor intervention preferences: [] pain management options preferred: [] cut cord/dad catch: [] : [] PP control planned: [] discussed possible routes of delivery and associated risks: [] special requests: [] Specific Issue/Plans Covid status: [] Flu vaccine: [] Tdap vaccine: [] Rhogam: [] LARC form signed: [] Problem list reviewed and updated with the most current plan of care details and appropriate orders placed. Relevant counseling for the gestational age provided. Continue routine care and follow up unless otherwise noted in visit notes/problem list details Initial Weight: 125 lb Date -???-???-???-???-???-??? -???-???-???-???-???-??? - EGA Weight BP Urine Prot -???-???-???-???-???-??? -???-???-???-???-???-??? - Glucose FHR FuHt Pres Dilation -???-???-???-???-???-??? -???-???-???-???-???-??? - Effaced St Visit Note 05/29/24 -???-???-???-???-???-??? -???-???-???-???-???-??? - 8w 1d 125 lb 4 oz (+4 oz) 127/76 -???-???-???-???-???-??? -???-???-???-???-???-??? - 166 -???-???-???-???-???-??? -???-???-???-???-???-??? - LC CRL 1.62 not con with LMP. LMP changed to 01/07/2025. desires nipt/carrier screening. will return in 2 weeks. 07/01/24 -???-???-???-???-???-??? -???-???-???-???-???-??? - 12w 6d 124 lb 6 oz (-10 oz) 107/61 Negative -???-???-???-???-???-??? -???-???-???-???-???-??? - Negative 145 -???-???-???-???-???-??? -???-???-???-???-???-??? - MH-No VB. Na usea problematic. Zofran sent. 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 Br US confirm FHT 07/28/24 -???-???-???-???-???-??? -???-???-???-???-???-??? - 16w 5d 127 lb (+2 lb) 112/70 Negative -???-???-???-???-???-??? -???-???-???-???-???-??? - Negative 142 -???-???-???-???-???-??? -???-???-???-???-???-??? - JV- no compl aints today other than FOB needs labs for CF. 08/26/24 -???-???-???-???-???-??? -???-???-???-???-???-??? - 20w 6d 129 lb (+4 lb) 108/62 Negative -???-???-???-???-???-??? -???-???-???-???-???-??? - Negative 135 -???-???-???-???-???-??? -???-???-???-???-???-??? - SM- no vb lo f good fm no reuglar ctx 09/22/24 -???-???-???-???-???-??? -???-???-???-???-???-??? - 24w 5d 137 lb 4 oz (+12 lb 4 oz) 98/60 Negative -???-???-???-???-???-??? -???-???-??? (more content not included)... Normal [facility] US GALLBLADDER RUQon 09-22-2 025 US GALLBLADDER RUQ EXAM: US GALLBLADDER RUQ. HISTORY: RUQ abd pain, 6 months . COMPARISON: None. FINDINGS: The right renal pelvis is upper normal to slightly dilated for this stage of at 2.6 cm in AP dimension with no calyceal dilatation of significance. No perinephric fluid. Renal echogenicity normal. No gallstones. Common bile duct normal. Liver slightly enlarged at 6.2 cm in length but otherwise normal. Visualized portions of the pancreas are normal. Aorta nonaneurysmal. IVC normal. IMPRESSION: Prominence of the right renal collecting system. In order to see if this is more related to than it is obstruction, I would recommend a dedicated bilateral renal and bladder ultrasound, including resistive indices and evaluation of the ureteral jets. The findings were discussed with Dr. Delgadillo in the ED. Interpreted by: Richard Trejo Jr., MD Signed by: Richard Trejo Jr., MD 09/22/24 Final result Normal [facility] US Gallbladderon 09-22-2024 Prominence of the right renal collecting system. In order to see if this is more related to than it is obstruction, I would recommend a dedicated bilateral renal and bladder ultrasound, including resistive indices and evaluation of the ureteral jets. The findings were discussed with Dr. Delgadillo in the ED. [facility] RIS CONSOLIDATED EXAM: US GALLBLADDER RUQ. HISTORY: RUQ abd pain, 6 months . COMPARISON: None. FINDINGS: The right renal pelvis is upper normal to slightly dilated for this stage of at 2.6 cm in AP dimension with no calyceal dilatation of significance. No perinephric fluid. Renal echogenicity normal. No gallstones. Common bile duct normal. Liver slightly enlarged at 6.2 cm in length but otherwise normal. Visualized portions of the pancreas are normal. Aorta nonaneurysmal. IVC normal. [facility] RIS CONSOLID[facility] Richard Trejo Jr., MD - 09/22/2024 EXAM: US GALLBLADDER RUQ. HISTORY: RUQ abd pain, 6 months . COMPARISON: None. FINDINGS: The right renal pelvis is upper normal to slightly dilated for this stage of at 2.6 cm in AP dimension with no calyceal dilatation of significance. No perinephric fluid. Renal echogenicity normal. No gallstones. Common bile duct normal. Liver slightly enlarged at 6.2 cm in length but otherwise normal. Visualized portions of the pancreas are normal. Aorta nonaneurysmal. IVC normal. IMPRESSION: Prominence of the right renal collecting system. In order to see if this is more related to than it is obstruction, I would recommend a dedicated bilateral renal and bladder ultrasound, including resistive indices and evaluation of the ureteral jets. The findings were discussed with Dr. Delgadillo in the ED. [facility] Radiology Study observation (narrative) [facility] US GallbladderOrdered By: Vinay Trjeo on 09-22-2024 [facility] Work Phone: US RENAL COMPLETEon 09-23-19 US RENAL COMPLETE US RENAL COMPLETE, 09/22/2024 2:16 PM EDT, [facility] JAMAR[facility] DELGADILLO INDICATION: Abnormal finding on US RUQ with dilated right renal collecting system COMPARISON: None. Technique: Multiple images are obtained in the transverse and longitudinal dimensions. Color Doppler and grayscale imaging has been performed. Findings: Right kidney: Measures 12.4 x 5.1 x 6.8 cm. Normal corticomedullary differentiation pattern. Mild hydronephrosis. No renal calculi. Normal parenchymal arterial waveforms. Left renal resistive index, 0.8. Left kidney: Measures 12.4 x 6.2 x 4.7 cm. Normal corticomedullary differentiation pattern. Mild hydronephrosis. No renal calculi. Normal parenchymal arterial waveforms. Left renal resistive index, 0.72. Bladder: Normal; bilateral ureteral jets are identified Gravid uterus noted. IMPRESSION: Mild bilateral hydronephrosis, right greater than left. Interpreted by: Carmelo Kwan MD Signed by: Carmelo Kwan MD 09/22/24 Final result Normal [facility] Urinalysison 09-22-2024 Bilirubin Ql (U) Negative NEGATIVE [facility] Clarity (U) Hazy Abnormal Clear [facility] Color (U) Yellow Yellow [facility] Comment [facility] Glucose Test strip (U) [Mass/Vol] Negative NEGATIVE mg/dL [facility] Hemoglobin Auto test strip Ql (U) TRACE Abnormal NEGATIVE [facility] Interpretation and review of laboratory results Abnormal [facility] Ketones (U) [Mass/Vol] Negative NEGATIVE mg/dL [facility] Leukocyte esterase Test strip Ql (U) Negative NEGATIVE [facility] Nitrite Ql (U) Positive Abnormal NEGATIVE [facility] pH (U) 7 [pH] 5.0 - 8.0 [facility] Protein (U) [Mass/Vol] TRACE Abnormal NEGATIVE mg/dL [facility] Specific gravity (U) [Rel density] 1.01 1.005 - 1.030 [facility] Urobilinogen Qn (U) Normal 0.0 - 1. 0 EU/dL [facility] Urinalysis, Routineon 2024 Bilirubin, SemiQt,Ur Negative Normal NEG [facility] Comment on above: Performed By: #### U MICAO, UA #### [facility] [address] [place] [address] Diagnostic Imaging Manager: Ric Eldridge MD Blood, Urine TRACE Abnormal NEG [facility] Comment on above: Performed By: #### U MICAO, UA #### [facility] [address] [place] [address] Diagnostic Imaging Manager: Ric Eldridge MD Clarity (U) Hazy Abnormal CLEAR [facility] Comment on above: Performed By: #### U MICAO, UA #### [facility] [address] [place] [address] Diagnostic Imaging Manager: Ric Eldridge MD Color (U) Yellow Normal YEL [facility] Comment on above: Performed By: #### U MICAO, UA #### [facility] [address] [facility] [place] [address] Diagnostic Imaging Manager: Ric Eldridge MD Comment Normal [facility] Comment on above: Performed By: #### U MICAO, UA #### [facility] [address] [facility] [place] [address] Diagnostic Imaging Manager: Ric Eldridge MD Glucose Ql (U) Negative Normal NEG [facility] Comment on above: Performed By: #### U MICAO, UA #### [facility] [address] [place], [place] [id number] Diagnostic Imaging Manager: Ric lEdridge MD Ketones Ql (U) Negative Normal NEG [facility] Comment on above: Performed By: #### U MICAO, UA #### [facility] [address] [place], [place] [id number] Diagnostic Imaging Manager: Ric Eldridge MD Leukocyte esterase Test strip Ql (U) Negative Normal NEG [facility] Comment on above: Performed By: #### U MICAO, UA #### [facility] [address] [place], [place] [id number] Diagnostic Imaging Manager: Ric Eldridge MD Nitrite,Ur Positive Abnormal NEG [facility] Comment on above: Performed By: #### U MICAO, UA #### [facility] [address] [place], [place] [id number] Diagnostic Imaging Manager: Ric Eldridge MD PH,Ur 7.0 Normal 5.0-8.0 [facility] Comment on above: Performed By: #### U MICAO, UA #### [facility] [address] [place], [place] [phone] Diagnostic Imaging Manager: Ric Eldridge MD Protein Ql (U) TRACE Abnormal NEG [facility] Comment on above: Performed By: #### U MICAO, UA #### [facility] [address] [place] [address] Diagnostic Imaging Manager: Ric Eldridge MD Spec. [place],Ur 1.010 Normal 1.005-1.[address] [facility] Comment on above: Performed By: #### U MICAO, UA #### [facility] [address] [place], [place] [id number] Diagnostic Imaging Manager: Ric Eldridge MD Urobilinogen,Ur Normal Normal 0.0-1.[address] [facility] Comment on above: Performed By: #### U MICAO, UA #### [facility] [address] [place], [place] [id number] Diagnostic Imaging Manager: Ric Eldridge MD Urinalysis,Microon 5 ----- Normal [facility] Comment on above: Performed By: #### U MICAO, UA #### [facility] [address] [place], [place] [id number] Diagnostic Imaging Manager: Ric Eldridge MD Bacteria 4+ Abnormal NONE [facility] Comment on above: Performed By: #### U HUMERAO, UA #### [facility] [address] [place], [place] [id number] Diagnostic Imaging Manager: Ric Eldridge MD Epithelial cells LM Ql (Urine sed) 2 TO 5 Normal [facility] Comment on above: Performed By: #### U MICAO, UA #### [facility] [address] [place], [place] [id number] Diagnostic Imaging Manager: Ric Eldridge MD Urine RBC's 0 TO 2 Normal 0-2 [facility] Comment on above: Performed By: #### U MICAO, UA #### [facility] [address] [place], [place] [id number] Diagnostic Imaging Manager: Ric Eldridge MD Urine WBC's 2 TO 5 Normal 0 [facility] Comment on above: Performed By: #### U MICAO, UA #### [facility] [address] [place], [place] [phone] Diagnostic Imaging Manager: Ric Eldridge MD Laboratory - Chemistry and C hemistry - challengeOrdered By: Leonor Phillips on 08-26-2024 Glucose Ql (U) Negative [facility] Laboratory - UrinalysisOrder ed By: Leonor Phillips on 08-26-2024 Protein Ql (U) Negative [facility] Certified Endoscopy Technician Office Visit Reporton 08-26-2024 Certified Endoscopy Technician Office Visit Report [facility] Women[facility] [address], [address] [place] [address] OFFICE VISIT Date of Service: 08/26/24 MR#: [id number] Acct: [id number] Name: AIMEE REDDY Rep #: [id number] : 2000 Provider: Dr. Leonor ha MD Age/Sex: 24/F Location: [facility] [place] Status: Signed Intake Vital Signs 07/01/24 09:26 07/28/24 08:58 08/26/24 09:26 08/26/24 09:30 Height 5 ft 4 in 5 ft 4 in 5 ft 4 in 5 ft 4 in Weight: 129 lb BMI 22.1 BP 108/62 Intake Visit Reasons: 21wk ob 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 Is patient in pain?: No Feel stressed/tense/nervous/a nxious/difficulty sleeping: not at all Allergies No Known Allergies Allergy (Verified 08/26/24 09:27) Medications ???Medication ???Instructions ???Recorded ???Confirmed ???Type PNV 153-FA 400 mcg-om3 35 mg-dha tab PO 05/14/24 08/26/24 History 25 mg-epa 5 mg-fish oil chew tablet ondansetron 4 mg disintegrating 4 mg PO Q4H PRN nausea and 5 08/26/24 Rx tablet vomiting #60 tabs Last Menstrual Period: 03/24/24 Zika: Zika virus screening: Negative : No PFSH PFSH Surgical History History of splenectomy Social History adopted: No household members: family current occupational status: employed current occupation: [employer] pets and animals: Yes pets and animals: dog(s) history of recent travel: No sexually active: Yes Smoking Status: Former smoker Electronic Cigarette Use: with nicotine alcohol intake: current alcohol intake frequency: a few times a month details: not while substance use type: does not use well-balanced diet: daily or most days caffeine: No eating out: 1-3 times/week during the past year weight has: remained stable what type of physical activity do you participate in: none ana m/alevism: Anabaptism seatbelt use: always do you feel safe at home: Yes additional social history: BF- Bhaskar [employer] History 1 Elective abortions Hx Para 0 Spontaneous abortions Hx # Term Pregnancies Ectopic pregnancies Hx # Pregnancies Multiple births # of living children HPI 21wk ob Details: AIMEE REDDY is a 24 year old who presents for routine OB visit. OB Visit TERESITA Calculator Estimated Delivery Date Method Current WG Current Estimate 01/07/25 Ultrasound #1 20w 6d Other Estimates 12/29/24 LMP (Certain) 22w 1d Expected Delivery Route/Plan Labor Preferences- CB/BF classes: [] labor support person: [] labor intervention preferences: [] pain management options preferred: [] cut cord/dad catch: [] : [] PP control planned: [] discussed possible routes of delivery and associated risks: [] special requests: [] Specific Issue/Plans Covid status: [] Flu vaccine: [] Tdap vaccine: [] Rhogam: [] LARC form signed: [] Problem list reviewed and updated with the most current plan of care details and appropriate orders placed. Relevant counseling for the gestational age provided. Continue routine care and follow up unless otherwise noted in visit notes/problem list details Initial Weight: 125 lb Date -???-???-???-???-???-??? -???-???-???-???-???-??? - EGA Weight BP Urine Prot -???-???-???-???-???-??? -???-???-???-???-???-??? - Glucose FHR FuHt Pres Dilation -???-???-???-???-???-??? -???-???-???-???-???-??? - Effaced St Visit Note 05/29/24 -???-???-???-???-???-??? -???-???-???-???-???-??? - 8w 1d 125 lb 4 oz (+4 oz) 127/76 -???-???-???-???-???-??? -???-???-???-???-???-??? - 166 -???-???-???-???-???-??? -???-???-???-???-???-??? - LC CRL 1.62 not con with LMP. LMP changed to 01/07/2025. desires nipt/carrier screening. will return in 2 weeks. 07/01/24 -???-???-???-???-???-??? -???-???-???-???-???-??? - 12w 6d 124 lb 6 oz (-10 oz) 107/61 Negative -???-???-???-???-???-??? -???-???-???-???-???-??? - Negative 145 -???-???-???-???-???-??? -???-???-???-???-???-??? - MH-No VB. Na usea problematic. Gayle sent. 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 Br US confirm FHT 07/28/24 -???-???-???-???-???-??? -???-???-???-???-???-??? - 16w 5d 127 lb (+2 lb) 112/70 Negative -???-???-???-???-???-??? -???-???-???-???-???-??? - Negative 142 -???-???-???-???-???-??? -???-???-???-???-???-??? - JV- no compl aints today other than FOB needs labs for CF. 08/26/24 -???-???-???-???-???-??? -???-???-???-???-???-??? - 20w 6d 129 lb (+4 lb) 108/62 Negative -???-???-???-???-???-??? -???-???-???-???-???-??? - Negative 135 -???-???-???-???-???-??? -???-???-???-???-???-??? - SM- no vb lo f good fm no reuglar ctx ACOG First Trimester First Trimester: Discussed Second Trimester (more content not included)... Normal [facility] CBC with Auto Differentialon 08-08-2024 Basophils (Bld) [#/Vol] 0.05 10*3/uL [facility] Basophils/100 WBC (Bld) 0 % 0 - 2 % [facility] Eosinophils (Bld) [#/Vol] 0.33 10*3/uL [facility] Eosinophils/100 WBC (Bld) 2 % 0 - 5 % [facility] Erythrocyte distribution width (RBC) [Ratio] 13.5 % 12.1 - 15.2 % [facility] Hematocrit (Bld) [Volume fraction] 34.2 % Low 36.0 - 46.0 % [facility] Hemoglobin (Bld) [Mass/Vol] 12.0 g/dL 12.0 - 16.0 g/dL [facility] Immature granulocytes (Bld) [#/Vol] 0.06 10*3/uL [facility] Immature granulocytes/100 WBC (Bld) 0 % 0 - 5 % [facility] Interpretation and review of laboratory results Abnormal [facility] Lymphocytes/100 WBC (Bld) 28 % 15 - 40 % [facility] Lymphocytes/100 WBC (Bld) 4.04 % [facility] MCH (RBC) [Entitic mass] 31.1 pg 26.0 - 34.0 pg [facility] MCHC (RBC) [Mass/Vol] 35.1 g/dL 31.0 - 37.0 g/dL [facility] MCV (RBC) [Entitic vol] 88.6 fL 80.0 - 100.0 fL [facility] Monocytes/100 WBC (Bld) 9 % High 4 - 8 % [facility] Monocytes/100 WBC (Bld) 1.31 % High [facility] Neutrophils/100 WBC (Bld) 61 % 47 - 75 % [facility] Platelet mean volume (Bld) [Entitic vol] 10.9 fL 6.0 - 12.0 fL [facility] Platelets (Bld) [#/Vol] 354 10*3/uL [facility] RBC (Bld) [#/Vol] 3.86 10*6/uL Low 4.00 - 5.2 0 m/uL [facility] Segmented neutrophils/100 WBC (Bld) 8.65 % High [facility] WBC other (Bld) [#/Vol] 14.[address] [facility] CBC with Diffon 08-08-2024 Abs. Basophil 0.05 k/uL Normal 0.00-0.20 [facility] Comment on above: Performed By: #### U SYDNEY UA #### [facility] [address] [place] [address] Diagnostic Imaging Manager: Ric Eldridge MD Abs.Imm.Granulocyte 0.06 k/uL Normal 0.00-0.30 [facility] Comment on above: Performed By: #### Arcenio GRIMES, UA #### [facility] [address] [place] [address] Diagnostic Imaging Manager: Ric Eldridge MD Abs.Neutrophil (Seg) 8.65 k/uL High 2.5-7.0 [facility] Comment on above: Performed By: #### Arcenio GRIMES UA #### [facility] [address] [place] [phone] Diagnostic Imaging Manager: Ric Eldridge MD Basophils/100 WBC (Bld) 0 % Normal 0-2 [facility] Comment on above: Performed By: #### Arcenio GRIMES UA #### [facility] [address] [place] [phone] Diagnostic Imaging Manager: Ric Eldridge MD Eosinophils (Bld) [#/Vol] 0.33 10*3/uL Normal 0.00-0.40 [facility] Comment on above: Performed By: #### Arcenio GRIMES UA #### [facility] [address] [place] [phone] Diagnostic Imaging Manager: Ric Eldridge MD Eosinophils/100 WBC (Bld) 2 % Normal 0-5 [facility] Comment on above: Performed By: #### Arcenio GRIMES UA #### [facility] [address] [place] [phone] Diagnostic Imaging Manager: Ric Eldridge MD Erythrocyte distribution width (RBC) [Ratio] 13.5 % Normal 12.1-15.2 [facility] Comment on above: Performed By: #### Arcenio GRIMES UA #### [facility] [address] [place] [phone] Diagnostic Imaging Manager: Ric Eldridge MD Hematocrit (Bld) [Volume fraction] 34.2 % Low 36.0-46.0 [facility] Comment on above: Performed By: #### U SYDNEY UA #### [facility] [address] [place] [phone] Diagnostic Imaging Manager: Ric Eldridge MD Hemoglobin (Bld) [Mass/Vol] 12.0 g/dL Normal 12.0-16.0 [facility] Comment on above: Performed By: #### U SYDNEY UA #### [facility] [address] [place], [place] [phone] Diagnostic Imaging Manager: Ric Eldridge MD Immature granulocytes/100 WBC (Bld) 0 % Normal 0-5 [facility] Comment on above: Performed By: #### U SYDNEY UA #### [facility] [address] [place], [place] [phone] Diagnostic Imaging Manager: Ric Eldridge MD Lymphocytes (Bld) [#/Vol] 4.04 10*3/uL Normal 1.00-4.80 [facility] Comment on above: Performed By: #### U SYDNEY UA #### [facility] [address] [place] [address] Diagnostic Imaging Manager: Ric Eldridge MD Lymphocytes/100 WBC (Bld) 28 % Normal 15-40 [facility] Comment on above: Performed By: #### U SYDNEY UA #### [facility] [address] [place] [address] Diagnostic Imaging Manager: Ric Eldridge MD MCH (RBC) [Entitic mass] 31.1 pg Normal 26.0-34.0 [facility] Comment on above: Performed By: #### Arcenio GRIMES UA #### [facility] [address] [place] [address] Diagnostic Imaging Manager: Ric Eldridge MD MCHC (RBC) [Mass/Vol] 35.1 g/dL Normal 31.0-37.0 [facility] Comment on above: Performed By: #### U SYDNEY UA #### [facility] [address] [place] [address] Diagnostic Imaging Manager: Ric Eldridge MD MCV (RBC) [Entitic vol] 88.6 fL Normal 80.0-100.0 [facility] Comment on above: Performed By: #### U SYDNEY UA #### [facility] [address] [place], [place] [phone] Diagnostic Imaging Manager: Ric Eldridge MD Monocytes (Bld) [#/Vol] 1.31 10*3/uL High 0.00-1.00 [facility] Comment on above: Performed By: #### U SYDNEY UA #### [facility] [address] [place], [place] [phone] Diagnostic Imaging Manager: Ric Eldridge MD Monocytes/100 WBC (Bld) 9 % High 4-8 [facility] Comment on above: Performed By: #### U SYDNEY UA #### [facility] [address] [place], [place] [phone] Diagnostic Imaging Manager: Ric Eldridge MD Neutrophil (Seg) 61 % Normal 47-75 [facility] Comment on above: Performed By: #### Arcenio GRIMES UA #### [facility] [address] [place], [place] [phone] Diagnostic Imaging Manager: Ric Eldridge MD Platelet mean volume (Bld) [Entitic vol] 10.9 fL Normal 6.0-12.0 [facility] Comment on above: Performed By: #### U SYDNEY UA #### [facility] [address] [place], [place] [phone] Diagnostic Imaging Manager: Ric Eldridge MD Platelets (Bld) [#/Vol] 354 10*3/uL Normal 140-450 [facility] Comment on above: Performed By: #### U SYDNEY UA #### [facility] [address] [place], [place] [phone] Diagnostic Imaging Manager: Ric Eldridge MD RBC (Bld) [#/Vol] 3.86 10*6/uL Low 4.00-5.20 [facility] Comment on above: Performed By: #### U SYDNEY, UA #### [facility] [address] [place] [address] Diagnostic Imaging Manager: Ric Eldridge MD WBC (Bld) [#/Vol] 14.4 10*3/uL High 3.5-11.0 [facility] Comment on above: Performed By: #### U SYDNEY UA #### [facility] [address] [place] [address] Diagnostic Imaging Manager: Ric Eldridge [facility] Albumin [Mass/Vol] 4.1 g/dL 3.5 - 5.2 g/dL [facility] Albumin/Globulin [Mass ratio] 1.3 {ratio} 1.0 - 2.5 [facility] ALP [Catalytic activity/Vol] 67 U/L 35 - 104 U/L [facility] ALT [Catalytic activity/Vol] 11 U/L 5 - 33 U/L [facility] Anion gap [Moles/Vol] 11 mmol/L 9 - 17 mmol/L [facility] AST [Catalytic activity/Vol] 19 U/L NINF - 32 U/L [facility] Bilirubin [Mass/Vol] mg/dL Low 0.3 - 1 .2 mg/dL [facility] Calcium [Mass/Vol] 9.8 mg/dL 8.6 - 10. 4 mg/dL [facility] Chloride [Moles/Vol] 104 mmol/L 98 - 10 7 mmol/L [facility] CO2 [Moles/Vol] 22 mmol/L 20 - 31 mmol/L [facility] Creatinine [Mass/Vol] 0.4 mg/dL Low 0.5 - 0.9 mg/dL [facility] Est, Glom Filt Rate - PINF [facility] Comment on above: These results are not intended for use in patients <18 years of age. eGFR results are calculated without a race factor using the 2020 CKD-EPI equation. Careful clinical correlation is recommended, particularly when comparing to results calculated using previous equations. The CKD-EPI equation is less accurate in patients with extremes of muscle mass, extra-renal metabolism of creatine, excessive creatine ingestion, or following therapy that affects renal tubular secretion. Glucose [Mass/Vol] 81 mg/dL 70 - 99 mg/dL [facility] Interpretation and review of laboratory results Abnormal [facility] Potassium [Moles/Vol] 3.9 mmol/L 3.7 - 5.3 mmol/L [facility] Protein [Mass/Vol] 7.2 g/dL 6.4 - 8.3 g/dL [facility] Sodium [Moles/Vol] 137 mmol/L 135 - 144 mmol/L [facility] Urea nitrogen [Mass/Vol] 11 mg/dL 6 - 20 mg/dL [facility] Comp Metabolic Profon 2024 Albumin [Mass/Vol] 4.1 g/dL Normal 3.5-5.2 [facility] Comment on above: Performed By: #### U HUMERAO, UA #### [facility] [address] [place], [place] [phone] Diagnostic Imaging Manager: Ric Eldridge MD Albumin/Glob Ratio 1.3 Normal 1.0-2.5 [facility] Comment on above: Performed By: #### U MICAO, UA #### [facility] [address] [place], [place] [id number] Diagnostic Imaging Manager: Ric Eldridge MD Alkaline Phos 67 U/L Normal 35-104 [facility] Comment on above: Performed By: #### U HUMERAO, UA #### [facility] [address] [place], [place] [phone] Diagnostic Imaging Manager: Rci Eldridge MD ALT [Catalytic activity/Vol] 11 U/L Normal 5-33 [facility] Comment on above: Performed By: #### U MICAO, UA #### [facility] [address] [place], [place] [phone] Diagnostic Imaging Manager: Ric Eldridge MD Anion gap [Moles/Vol] 11 mmol/L Normal 9-17 [facility] Comment on above: Performed By: #### U MICAO, UA #### [facility] [address] [place] [address] Diagnostic Imaging Manager: Ric Eldridge MD AST [Catalytic activity/Vol] 19 U/L Normal <32 [facility] Comment on above: Performed By: #### U SYDNEY UA #### [facility] [address] [place], [place] [phone] Diagnostic Imaging Manager: Ric Eldridge MD Bilirubin [Mass/Vol] mg/dL Low 0.3-1.2 [facility] Comment on above: Performed By: #### U SYDNEY, UA #### [facility] [address] [place], [place] [phone] Diagnostic Imaging Manager: Ric Eldridge MD Calcium [Mass/Vol] 9.8 mg/dL Normal 8.6-10.4 [facility] Comment on above: Performed By: #### Arcenio GRIMES UA #### [facility] [address] [place], [place] [phone] Diagnostic Imaging Manager: Ric Eldridge MD Chloride [Moles/Vol] 104 mmol/L Normal 98-107 [facility] Comment on above: Performed By: #### U SYDNEY UA #### [facility] [address] [place], [place] [id number] Diagnostic Imaging Manager: Ric Eldridge MD CO2 [Moles/Vol] 22 mmol/L Normal 20-[address] [facility] Comment on above: Performed By: #### U SYDNEY, UA #### [facility] [address] [place], [place] [phone] Diagnostic Imaging Manager: Ric Eldridge MD Creatinine [Mass/Vol] 0.4 mg/dL Low 0.5-0.9 [facility] Comment on above: Performed By: #### U SYDNEY UA #### [facility] [address] [place] [address] Diagnostic Imaging Manager: Ric Eldridge MD GFR/1.73 sq M.predicted among non-blacks MDRD (S/P/Bld) [Vol rate/Area] mL/min/{1.73_m2} Normal >60 [facility] Comment on above: Result Comment: These results are not intended for use in patients <18 years of age. eGFR results are calculated without a race factor using the 2020 CKD-EPI equation. Careful clinical correlation is recommended, particularly when comparing to results calculated using previous equations. The CKD-EPI equation is less accurate in patients with extremes of muscle mass, extra-renal metabolism of creatine, excessive creatine ingestion, or following therapy that affects renal tubular secretion. Performed By: #### U SYDNEY UA #### [facility] [address] [place] [address] Diagnostic Imaging Manager: Ric Eldridge MD Glucose [Mass/Vol] 81 mg/dL Normal 70-99 [facility] Comment on above: Performed By: #### Arcenio GRIMES UA #### [facility] [address] [place] [address] Diagnostic Imaging Manager: Ric Eldridge MD Potassium [Moles/Vol] 3.9 mmol/L Normal 3.7-5.3 [facility] Comment on above: Performed By: #### Arcenio GRIMES UA #### [facility] [address] [place] [address] Diagnostic Imaging Manager: Ric Eldridge MD Protein [Mass/Vol] 7.2 g/dL Normal 6.4-8.3 [facility] Comment on above: Performed By: #### U SYDNEY UA #### [facility] [address] [place] [address] Diagnostic Imaging Manager: Ric Eldridge MD Sodium [Moles/Vol] 137 mmol/L Normal 135-144 [facility] Comment on above: Performed By: #### U SYDNEY UA #### [facility] [address] [place] [address] Diagnostic Imaging Manager: Ric Eldridge MD Urea nitrogen [Mass/Vol] 11 mg/dL Normal 6-20 [facility] Comment on above: Performed By: #### U SYDNEY UA #### [facility] [address] [place] [address] Diagnostic Imaging Manager: Ric Eldridge MD Lipaseon 08-08-2024 Lipase [Catalytic activity/Vol] 29 U/L 13 - 60 U/L [facility] Lipase [Catalytic activity/Vol] 29 U/L Normal 13-60 [facility] Comment on above: Performed By: #### U SYDNEY UA #### [facility] [address] [place] [address] Diagnostic Imaging Manager: Ric Eldridge MD Microscopic Urinalysison - [facility] Epithelial cells LM.HPF (Urine sed) [#/Area] 2 TO 5 /HPF [facility] RBC LM.HPF (Urine sed) [#/Area] 0 TO 2 [facility] WBC LM.HPF (Urine sed) [#/Area] None Seen 0 /HPF [facility] No Panel Informationon 08-08 [facility] Urinalysison 08-08-2024 Bilirubin Ql (U) Negative NEGATIVE [facility] Clarity (U) Clear Clear [facility] Color (U) Yellow Yellow [facility] Comment [facility] Glucose Test strip (U) [Mass/Vol] 250 mg/dL Abnormal NEGATIVE mg/dL [facility] Hemoglobin Auto test strip Ql (U) TRACE Abnormal NEGATIVE [facility] Interpretation and review of laboratory results Abnormal [facility] Ketones (U) [Mass/Vol] Negative NEGATIVE mg/dL [facility] Leukocyte esterase Test strip Ql (U) Negative NEGATIVE [facility] Nitrite Ql (U) Negative NEGATIVE [facility] pH (U) 6.0 [pH] 5.0 - 8.0 [facility] Protein (U) [Mass/Vol] TRACE Abnormal NEGATIVE mg/dL [facility] Specific gravity (U) [Rel density] 1.025 1.005 - 1.030 [facility] Urobilinogen Qn (U) Normal 0.0 - 1. 0 EU/dL [facility] Urinalysis, Routineon 2024 Bilirubin, SemiQt,Ur Negative Normal NEG [facility] Comment on above: Performed By: #### U MICAO, UA #### [facility] [address] [place], [place] [id number] Diagnostic Imaging Manager: Ric Eldridge MD Blood, Urine TRACE Abnormal NEG [facility] Comment on above: Performed By: #### U MICAO, UA #### [facility] [address] [place], [place] [id number] Diagnostic Imaging Manager: Ric Eldridge MD Clarity (U) Clear Normal CLEAR [facility] Comment on above: Performed By: #### U MICAO, UA #### [facility] [address] [place], [place] [id number] Diagnostic Imaging Manager: Ric Eldridge MD Color (U) Yellow Normal YEL [facility] Comment on above: Performed By: #### U MICAO, UA #### [facility] [address] [place], [place] [id number] Diagnostic Imaging Manager: Ric Eldridge MD Comment Normal [facility] Comment on above: Performed By: #### U MICAO, UA #### [facility] [address] [place], [place] [phone] Diagnostic Imaging Manager: Ric Eldridge MD Glucose Ql (U) 250 mg/dL Abnormal NEG [facility] Comment on above: Performed By: #### U MICAO, UA #### [facility] [address] [place], [place] [phone] Diagnostic Imaging Manager: Ric Eldridge MD Ketones Ql (U) Negative Normal NEG [facility] Comment on above: Performed By: #### U MICAO, UA #### [facility] [address] [place] [address] Diagnostic Imaging Manager: Ric Eldridge MD Leukocyte esterase Test strip Ql (U) Negative Normal NEG [facility] Comment on above: Performed By: #### U HUMERAO, UA #### [facility] [address] [place], [place] [phone] Diagnostic Imaging Manager: Ric Eldridge MD Nitrite,Ur Negative Normal NEG [facility] Comment on above: Performed By: #### U HUMERAO, UA #### [facility] [address] [place] [address] Diagnostic Imaging Manager: Ric Eldridge MD PH,Ur 6.0 Normal 5.0-8.0 [facility] Comment on above: Performed By: #### U HUMERAO, UA #### [facility] [address] [place] [address] Diagnostic Imaging Manager: Ric Eldridge MD Protein Ql (U) TRACE Abnormal NEG [facility] Comment on above: Performed By: #### U HUMERAO, UA #### [facility] [address] [place] [address] Diagnostic Imaging Manager: Ric Eldridge MD Spec. [place],Ur 1.025 Normal 1.005-1.[address] [facility] Comment on above: Performed By: #### U HUMERAO, UA #### [facility] [address] [place], [place] [phone] Diagnostic Imaging Manager: Ric Eldridge MD Urobilinogen,Ur Normal Normal 0.0-1.[address] [facility] Comment on above: Performed By: #### U HUMERAO, UA #### [facility] [address] [place] [address] Diagnostic Imaging Manager: Ric Eldridge MD Urinalysis,Microon 5 ----- Normal [facility] Comment on above: Performed By: #### U MICAO, UA #### [facility] [address] [place] [address] Diagnostic Imaging Manager: Ric Eldridge MD Epithelial cells LM Ql (Urine sed) 2 TO 5 Normal [facility] Comment on above: Performed By: #### U MICAO, UA #### [facility] [address] [place], [place] [address] Diagnostic Imaging Manager: Ric Eldridge MD Urine RBC's 0 TO 2 Normal 0-2 [facility] Comment on above: Performed By: #### U MICAO, UA #### [facility] [address] [place] [address] Diagnostic Imaging Manager: Ric Eldridge MD Urine WBC's None Seen Normal 0 [facility] Comment on above: Performed By: #### U MICAO, UA #### [facility] [address] [place] [address] Diagnostic Imaging Manager: Ric Eldridge MD Laboratory - Chemistry and C hemistry - challengeOrdered By: Mimi Caldera on 07-28-2024 Glucose Ql (U) Negative [facility] Laboratory - UrinalysisOrder ed By: Mimi Caldera on 07-28-2024 Protein Ql (U) Negative [facility] Certified Endoscopy Technician Office Visit Reporton 07-28-2024 Certified Endoscopy Technician Office Visit Report [facility] [address], [address] [place] [address] OFFICE VISIT Date of Service: 07/28/24 MR#: [id number] Acct: [id number] Name: AIMEE REDDY Rep #: [id number] : 2000 Provider: Dr. 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 Is patient in pain?: No Allergies No Known Allergies Allergy (Verified 07/28/24 08:56) Medications ???Medication ???Instructions ???Recorded ???Confirmed ???Type PNV 153-FA 400 mcg-om3 35 mg-dha tab PO 05/14/24 07/28/24 History 25 mg-epa 5 mg-fish oil chew tablet ondansetron 4 mg disintegrating 4 mg PO Q4H PRN nausea and 5 07/28/24 Rx tablet vomiting #60 tabs Last Menstrual Period: 03/24/24 Zika: Zika virus screening: Negative : No PFSH PFSH Surgical History History of splenectomy Social History adopted: No household members: family current occupational status: employed current occupation: [employer] pets and animals: Yes pets and animals: dog(s) history of recent travel: No sexually active: Yes Smoking Status: Former smoker Electronic Cigarette Use: with nicotine alcohol intake: current alcohol intake frequency: a few times a month details: not while substance use type: does not use well-balanced diet: daily or most days caffeine: No eating out: 1-3 times/week during the past year weight has: remained stable what type of physical activity do you participate in: none ana m/alevism: Anabaptism seatbelt use: always do you feel safe at home: Yes additional social history: BF- Brenda- Cayden R History 1 Elective abortions Hx Para 0 Spontaneous abortions Hx # Term Pregnancies Ectopic pregnancies Hx # Pregnancies Multiple births # of living children HPI 17wk OB Details: AIMEE REDDY is a 24 year old who presents for routine OB visit. OB Visit TERESITA Calculator Estimated Delivery Date Method Current WG Current Estimate 01/07/25 Ultrasound #1 16w 5d Other Estimates 12/29/24 LMP (Certain) 18w 0d Initial Weight: 125 lb Date -???-???-???-???-???-??? -???-???-???-???-???-??? - EGA Weight BP Urine Prot -???-???-???-???-???-??? -???-???-???-???-???-??? - Glucose FHR FuHt Pres Dilation -???-???-???-???-???-??? -???-???-???-???-???-??? - Effaced St Visit Note 05/29/24 -???-???-???-???-???-??? -???-???-???-???-???-??? - 8w 1d 125 lb 4 oz (+4 oz) 127/76 -???-???-???-???-???-??? -???-???-???-???-???-??? - 166 -???-???-???-???-???-??? -???-???-???-???-???-??? - LC CRL 1.62 not con with LMP. LMP changed to 01/07/2025. desires nipt/carrier screening. will return in 2 weeks. 07/01/24 -???-???-???-???-???-??? -???-???-???-???-???-??? - 12w 6d 124 lb 6 oz (-10 oz) 107/61 Negative -???-???-???-???-???-??? -???-???-???-???-???-??? - Negative 145 -???-???-???-???-???-??? -???-???-???-???-???-??? - -No VB. Na usea problematic. Zofran sent. 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 Br US confirm FHT 07/28/24 -???-???-???-???-???-??? -???-???-???-???-???-??? - 16w 5d 127 lb (+2 lb) 112/70 -???-???-???-???-???-??? -???-???-???-???-???-??? - 142 -???-???-???-???-???-??? -???-???-???-???-???-??? - JV- no compl aints today other than FOB needs labs for CF. ACOG First Trimester First Trimester: Discussed Second Trimester Second Trimester: Signs and Symptoms of Labor, Selecting a care provider, Reproductive Life Planning Contreception, Care Planning, Depression/Anxiety and Intimate Partner Violence; Discussed Tobacco Cessation Third Trimester Third Trimester: Pain Management Plans, Labor support person(s), Immediate Larc, Movement Monitoring, Signs and Symptoms of Preeclampsia and [place] Education ROS Const Denies fever(s) GI Reports as per HPI and Denies abdominal pain Reports as per HPI, Denies abnormal vaginal bleeding, Denies dysuria and Denies vaginal discharge Exam Const General: healthy appearing, comfortable and no acute distress GI Inspection: normal to inspection Palpation: soft and nontender Coding Level of Care Code Off vis,est,level 3 Diagnoses Cystic fibrosis carrier Z14.1 Encounter for supervision of normal first in second trimester Z34.02 Trimester: second trimester 16 weeks gestation of Z3A.16 Weeks of gestation: 16 weeks Assessment and Plan Assessment and Plan (1) Cystic (more content not included)... Normal [facility] Laboratory - Chemistry and C hemistry - challengeon 07-01-2024 Glucose Ql (U) Negative [facility] Laboratory - Urinalysison Protein Ql (U) Negative [facility] Certified Endoscopy Technician Office Visit Reporton 07-01-2024 Certified Endoscopy Technician Office Visit Report [facility] [address], [address] [place] [phone] OFFICE VISIT Date of Service: 07/01/24 MR#: [id number] Acct: [id number] Name: AIMEE REDDY Rep #: [id number] : 2000 Provider: ANDREW early Age/Sex: 24/F Location: [facility] [place] Status: Signed Intake Vital Signs 05/29/24 11:19 07/01/24 09:26 Height 5 ft 4 in 5 ft 4 in Weight: 124 lb 6 oz BMI 21.3 BP 107/61 Intake Visit Reasons: 14wk OB Chief Complaint: 14 Week OB 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 Is patient in pain?: No Allergies No Known Allergies Allergy (Unverified 07/01/24 09:26) Medications ???Medication ???Instructions ???Recorded ???Confirmed ???Type PNV 153-FA 400 mcg-om3 35 mg-dha tab PO 05/14/24 07/01/24 History 25 mg-epa 5 mg-fish oil chew tablet ondansetron 4 mg disintegrating 4 mg PO Q4H PRN nausea and 07/01/24 07/01/24 Rx tablet vomiting #60 tabs Last Menstrual Period: 03/24/24 Zika: Zika virus screening: Negative : No PFSH PFSH Surgical History History of splenectomy Social History adopted: No household members: family current occupational status: employed current occupation: [employer] pets and animals: Yes pets and animals: dog(s) history of recent travel: No sexually active: Yes Smoking Status: Former smoker Electronic Cigarette Use: with nicotine alcohol intake: current alcohol intake frequency: a few times a month details: not while substance use type: does not use well-balanced diet: daily or most days caffeine: No eating out: 1-3 times/week during the past year weight has: remained stable what type of physical activity do you participate in: none ana m/alevism: Anabaptism seatbelt use: always do you feel safe at home: Yes additional social history: PARISH- Bhaskar Coley History 1 Elective abortions Hx Para 0 Spontaneous abortions Hx # Term Pregnancies Ectopic pregnancies Hx # Pregnancies Multiple births # of living children HPI 14wk OB Details: AIMEE REDDY is a 24 year old who presents for routine OB visit. OB Visit TERESITA Calculator Estimated Delivery Date Method Current WG Current Estimate 01/07/25 Ultrasound #1 12w 6d Other Estimates 12/29/24 LMP (Certain) 14w 1d Initial Weight: 125 lb Date -???-???-???-???-???-??? -???-???-???-???-???-??? - EGA Weight BP Urine Prot -???-???-???-???-???-??? -???-???-???-???-???-??? - Glucose FHR FuHt Pres Dilation -???-???-???-???-???-??? -???-???-???-???-???-??? - Effaced St Visit Note 05/29/24 -???-???-???-???-???-??? -???-???-???-???-???-??? - 8w 1d 125 lb 4 oz (+4 oz) 127/76 -???-???-???-???-???-??? -???-???-???-???-???-??? - 166 -???-???-???-???-???-??? -???-???-???-???-???-??? - LC CRL 1.62 not con with LMP. LMP changed to 01/07/2025. desires nipt/carrier screening. will return in 2 weeks. 07/01/24 -???-???-???-???-???-??? -???-???-???-???-???-??? - 12w 6d 124 lb 6 oz (-10 oz) 107/61 Negative -???-???-???-???-???-??? -???-???-???-???-???-??? - Negative 145 -???-???-???-???-???-??? -???-???-???-???-???-??? - MH-No VB. Na usea problematic. Zofran sent. 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 Br US confirm FHT ACOG First Trimester First Trimester: Discussed ROS Const Reports system reviewed and no additional complaints, except as documented GI Denies abdominal pain, Denies nausea and Denies vomiting Exam Const General: cooperative Nutritional Appearance: well nourished GI Palpation: soft, nontender and other (gravid) Results POC Urinalysis 2 Dip (Clinic) Office Urine Glucose Negative Last Edit by Brigitte Bunn on 07/01/24 09:28 Office Urine Protein Negative Last Edit by Brigitte Bunn on 07/01/24 09:28 Coding Level of Care Code Off vis,est,level 3 Diagnoses Encounter for supervision of normal first in second trimester Z34.02 Trimester: second trimester 12 weeks gestation of Z3A.12 Weeks of gestation: 12 weeks Cystic fibrosis carrier Z14.1 Assessment and Plan Assessment and Plan (1) Supervision of normal first : Status: Acute Qualifiers: Trimester: second trimester Qualified Code(s): Z34.02 - Encounter for supervision of normal first , second trimester Comment: [id number], TERESITA 12/29/24, BF Brenda (2) : Status: Acute Qualifiers: Weeks of gestation: 12 weeks Qualified Code(s): Z3A.12 - 12 weeks gestation of Comment: Elects NIPT with Gender, Carrier Neg. 13/14 Carrier for Cystic Fibrosis;FOB Karen Merino to be tested (3) Cystic fibrosis carrier: Status: Acute Comment: FOB to be tested (more content not included)... Normal [facility] Absolute neutrophil countOrd ered By: Kassi Ontiveros on 06-19-2024 Neutrophils (Bld) [#/Vol] 12.1 10*3/uL High 2.0-7.[address] [facility] Basophil percentageOrdered B y: Kassi Ontiveros on 06-19-2024 Basophils/100 WBC (Bld) 0.4 % 0-[address] [facility] CBC W/Diff, Automatedon 05-25 Absolute Lymph 3.09 X10 3/uL Normal 0.83-4.[address] [facility] Comment on above: Performed By: #### L 509.4005, L3890.6005, L900.0098, L3890.6100, L100.0100, BTS, L3890.6300, L509.8000 ####[facility] [address] [place], [address] Absolute Neut 12.1 X10 3/uL High 2.0-7.[address] [facility] Comment on above: Performed By: #### L 509.4005, L3890.6005, L900.0098, L3890.6100, L100.0100, BTS, L3890.6300, L509.8000 ####[facility] [address] [place], [address] Basophils/100 WBC (Bld) 0.4 % Normal 0-[address] [facility] Comment on above: Performed By: #### L 509.4005, L3890.6005, L900.0098, L3890.6100, L100.0100, BTS, L3890.6300, L509.8000 ####[facility] [address] [place], [address] Eosinophils/100 WBC (Bld) 1.4 % Normal 0-[address] [facility] Comment on above: Performed By: #### L 509.4005, L3890.6005, L900.0098, L3890.6100, L100.0100, BTS, L3890.6300, L509.8000 ####[facility] [address] [place], [address] Erythrocyte distribution width (RBC) [Ratio] 13.5 % Normal 11.6-14.[address] [facility] Comment on above: Performed By: #### L 509.4005, L3890.6005, L900.0098, L3890.6100, L100.0100, BTS, L3890.6300, L509.8000 ####[facility] [address] [place], [address] Hematocrit (Bld) [Volume fraction] 39.3 % Normal 37-[address] [facility] Comment on above: Performed By: #### L 509.4005, L3890.6005, L900.0098, L3890.6100, L100.0100, BTS, L3890.6300, L509.8000 ####[facility] [address] [place], [address] Hemoglobin (Bld) [Mass/Vol] 12.9 g/dL Normal 12.0-15.[address] [facility] Comment on above: Performed By: #### L 509.4005, L3890.6005, L900.0098, L3890.6100, L100.0100, BTS, L3890.6300, L509.8000 ####[facility] [address] [place], [address] IG% 0.500 Normal 0.0-0.[address] [facility] Comment on above: Result Comment: IG% - Immature Granulocytes (promyelocytes, myelocytes and metamyelocytes) > 1% indicates that a LEFT SHIFT is Present. Performed By: #### L 509.4005, L3890.6005, L900.0098, L3890.6100, L100.0100, BTS, L3890.6300, L509.8000 ####[facility] [address] [place], [address] Lymphocytes/100 WBC (Bld) 18.1 % Low 19-[address] [facility] Comment on above: Performed By: #### L 509.4005, L3890.6005, L900.0098, L3890.6100, L100.0100, BTS, L3890.6300, L509.8000 ####[facility] [address] [place], [address] MCH (RBC) [Entitic mass] 29.7 pg Normal 27.0-32.[address] [facility] Comment on above: Performed By: #### L 509.4005, L3890.6005, L900.0098, L3890.6100, L100.0100, BTS, L3890.6300, L509.8000 ####[facility] [address] [place], [address] MCHC (RBC) [Mass/Vol] 32.8 g/dL Normal 32-36 [facility] Comment on above: Performed By: #### L 509.4005, L3890.6005, L900.0098, L3890.6100, L100.0100, BTS, L3890.6300, L509.8000 ####[facility] [address] [place], [address] MCV (RBC) [Entitic vol] 90.6 fL Normal 81-[address] [facility] Comment on above: Performed By: #### L 509.4005, L3890.6005, L900.0098, L3890.6100, L100.0100, BTS, L3890.6300, L509.8000 ####[facility] [address] [place], [address] Monocytes/100 WBC (Bld) 8.6 % Normal 0-[address] [facility] Comment on above: Performed By: #### L 509.4005, L3890.6005, L900.0098, L3890.6100, L100.0100, BTS, L3890.6300, L509.8000 ####[facility] [address] [place], [address] Neutrophils/100 WBC (Bld) 71.0 % High 47-[address] [facility] Comment on above: Performed By: #### L 509.4005, L3890.6005, L900.0098, L3890.6100, L100.0100, BTS, L3890.6300, L509.8000 ####[facility] [address] [place], [address] Nucleated RBC (Bld) [#/Vol] 0 10*3/uL Normal 0-[address] [facility] Comment on above: Performed By: #### L 509.4005, L3890.6005, L900.0098, L3890.6100, L100.0100, BTS, L3890.6300, L509.8000 ####[facility] [address] [place], [address] Platelet mean volume (Bld) [Entitic vol] 11.5 fL Normal 6.2-12.[address] [facility] Comment on above: Performed By: #### L 509.4005, L3890.6005, L900.0098, L3890.6100, L100.0100, BTS, L3890.6300, L509.8000 ####[facility] [address] [place], [address] Platelets (Bld) [#/Vol] 424 10*3/uL Normal 150-[address] [facility] Comment on above: Performed By: #### L 509.4005, L3890.6005, L900.0098, L3890.6100, L100.0100, BTS, L3890.6300, L509.8000 ####[facility] [address] [place], [address] RBC (Bld) [#/Vol] 4.34 10*6/uL Normal 4.2-5.[address] [facility] Comment on above: Performed By: #### L 509.4005, L3890.6005, L900.0098, L3890.6100, L100.0100, BTS, L3890.6300, L509.8000 ####[facility] [address] [place], [place], [phone]) RDW SD 45.9 fl High 35.1-43.[address] [facility] Comment on above: Performed By: #### L 509.4005, L3890.6005, L900.0098, L3890.6100, L100.0100, BTS, L3890.6300, L509.8000 ####[facility] [address] [place], [place], [phone]) WBC (Bld) [#/Vol] 17.0 10*3/uL High 4.4-11.[address] [facility] Comment on above: Performed By: #### L 509.4005, L3890.6005, L900.0098, L3890.6100, L100.0100, BTS, L3890.6300, L509.8000 ####[facility] [address] [place], [place], [phone] Eosinophil percentageOrdered By: Kassi Ontiveros on 06-19-2024 Eosinophils/100 WBC (Bld) 1.4 % 0-[address] [facility] Erythrocyte distribution wid th (RBC) [Ratio]Ordered By: Kassi Ontiveros on 06-19-2024 Erythrocyte distribution width (RBC) [Entitic vol] 45.9 fL High 35.1-43.[address] [facility] Erythrocyte distribution wid th ratioOrdered By: Kassi Ontiveros on 06-19-2024 Erythrocyte distribution width (RBC) [Ratio] 13.5 % 11.6-14.[address] [facility] HIV - WCHon 06-19-2024 HIV Non-Reactive Normal Nonreactive [facility] Comment on above: Order Comment: Reaso n for Exam: Performed By: #### L 509.4005, L3890.6005, L900.0098, L3890.6100, L100.0100, BTS, L3890.6300, L509.8000 ####[facility] [address] [place], [place], [id number] HIV 1+2 Ab+HIV1 p24 Ag IA Ql Ordered By: Kassi Ontiveros on 06-19-2024 HIV (1&2) Antibody Non-Reactive Nonreactive [facility] Hematocrit Auto (Bld) [Volum e fraction]Ordered By: Kassi Ontiveros on 06-19-2024 Hematocrit (Bld) [Volume fraction] 39.3 % 37-[address] [facility] Hemoglobin measurementOrdere d By: Kassi Ontiveros on 06-19-2024 Hemoglobin (Bld) [Mass/Vol] 12.9 g/dL 12.0-15.[address] [facility] Hepatitis B Surface Antigeno n 06-19-2024 HEP B Surf Ag Non-Reactive [facility] Comment on above: Order Comment: Reaso n for Exam: Performed By: #### L 509.4005, L3890.6005, L900.0098, L3890.6100, L100.0100, BTS, L3890.6300, L509.8000 ####[facility] [address] [facility] [place], [place], [phone] Hepatitis B surface antigen detectionOrdered By: Kassi Ontiveros on 06-19-2024 Hepatitis B Surface Antigen Non-Reactive Nonreactive [facility] Hepatitis C Antibodyon 06-19 Hepatitis C AB Non-Reactive [facility] Comment on above: Order Comment: Reaso n for Exam: Result Comment: Non Reactive: < 0.8 Equivocal: >/= 0.8 to < 1.0 Reactive: >/= 1.0 The CDC requires that a reactive/equivocal HCV antibody result be sent out for confirmation. HCV Quant by PCR testing. Performed By: #### L 509.4005, L3890.6005, L900.0098, L3890.6100, L100.0100, BTS, L3890.6300, L509.8000 ####[facility] [facility] [id number] [place], [place], [phone] Hepatitis C virus antibody a ssayOrdered By: Kassi Ontiveros on 06-19-2024 Hepatitis C Antibody Non-Reactive Nonreactive [facility] Comment on above: Non Reactive: < 0.8 Equivocal: >/= 0.8 to < 1.0 Reactive: >/= 1.0The CDC requires that a reactive/equivocal HCV antibody result be sent out for confirmation. HCV Quant by PCR testing. Immature granulocytes/100 WB C Auto (Bld)Ordered By: Kassi Ontiveros on 06-19-2024 Immature granulocytes/100 WBC (Bld) 0.500 % 0.0-0.[address] [facility] Comment on above: IG% - Immature Granu locytes (promyelocytes, myelocytes and metamyelocytes) > 1% indicates that a LEFT SHIFT is Present. L509.8000on 06-19-2024 Syphilis Abs Non-Reactive Normal [facility] Comment on above: Order Comment: Reaso n for Exam: Performed By: #### L 509.4005, L3890.6005, L900.0098, L3890.6100, L100.0100, BTS, L3890.6300, L509.8000 ####[facility] [id number] [place], [place], [phone] Lymphocytes Auto (Unsp spec) [#/Vol]Ordered By: Kassi Ontiveros on 06-19-2024 Lymphocytes (Bld) [#/Vol] 3.09 10*3/uL 0.83-4.[address] [facility] Lymphocytes/100 WBC Auto (Un sp spec)Ordered By: Kassi Ontiveros on 06-19-2024 Lymphocytes/100 WBC (Bld) 18.1 % Low 19-[address] [facility] MCV (mean corpuscular volume ) determinationOrdered By: Kassi Ontiveros on 06-19-2024 MCV (RBC) [Entitic vol] 90.6 fL 81-[address] [facility] Mean corpuscular hemoglobin (MCH) determinationOrdered By: Kassi Ontiveros on 06-19-2024 MCH (RBC) [Entitic mass] 29.7 pg 27.0-32.[address] [facility] Mean corpuscular hemoglobin concentration (MCHC) determinationOrdered By: Kassi Ontiveros on 06-19-2024 MCHC (RBC) [Mass/Vol] 32.8 g/dL 32-36 [facility] Mean platelet volume determi nationOrdered By: Kassi Ontiveros on 06-19-2024 Platelet mean volume (Bld) [Entitic vol] 11.5 fL 6.2-12.[address] [facility] Miscellaneous procedureOrder ed By: Kassi Ontiveros on 06-19-2024 Miscellaneous Test Comment SEE SCANNED REPORT [facility] Monocyte percentageOrdered B y: Kassi Ontiveros on 06-19-2024 Monocytes/100 WBC (Bld) 8.6 % 0-[address] [facility] NATERAon 06-19-2024 NATURA SEE SCANNED REPORT Normal [facility] Comment on above: Order Comment: Comme nts: NIPT with gender carrier testing Performed By: #### L 509.4005, L3890.6005, L900.0098, L3890.6100, L100.0100, BTS, L3890.6300, L509.8000 ####[facility] [id number] [place], [address] Neutrophil percentageOrdered By: Kassi Ontiveros on 06-19-2024 Neutrophils/100 WBC (Bld) 71.0 % High 47-[address] [facility] Nucleated red blood cell per centageOrdered By: Kassi Ontiveros on 06-19-2024 Nucleated RBC/100 WBC (Bld) [Ratio] 0 % 0-[address] [facility] Platelet countOrdered By: Evangelina Ontiveros on 06-19-2024 Platelets (Bld) [#/Vol] 424 10*3/uL 150-[address] [facility] RBC Auto (Bld) [#/Vol]Ordere d By: Kassi Ontiveros on 06-19-2024 RBC (Bld) [#/Vol] 4.34 10*6/uL 4.2-5.[address] [facility] Rubella IgGon 06-19-2024 Rubella IgG Non-Reactive Normal Nonreactive [facility] Comment on above: Order Comment: Reaso n for Exam: Result Comment: Anti body Results Interpretation of Immune Status Non Reactive Presumed Non-Immune Equivocal Equivocal Reactive Presumed Immune Performed By: #### L 509.4005, L3890.6005, L900.0098, L3890.6100, L100.0100, BTS, L3890.6300, L509.8000 ####[facility] [id number] [place], [place], [phone] Rubella immune status IgGOrd ered By: Kassi Ontiveros on 06-19-2024 Rubella IgG Antibody Non-Reactive Nonreactive [facility] Comment on above: Antibody Results Int erpretation of Immune Status Non Reactive Presumed Non-Immune Equivocal Equivocal Reactive Presumed Immune Treponema sp Ab Ql (S)Ordere d By: Kassi Ontiveros on 06-19-2024 Syphilis Total Antibody Non-Reactive [facility] Type AND Screenon 06-19-2024 Ab SCREEN GEL Negative Normal [facility] Comment on above: Order Comment: PN Performed By: #### L 509.4005, L3890.6005, L900.0098, L3890.6100, L100.0100, BTS, L3890.6300, L509.8000 ####[facility] [id number] [place], [place], [phone] ABO and Rh group Nom (Bld) Blood group O Rh(D) positive Normal [facility] Comment on above: Order Comment: PN Performed By: #### L 509.4005, L3890.6005, L900.0098, L3890.6100, L100.0100, BTS, L3890.6300, L509.8000 ####[facility] [id number] [place], [address] White blood cell (WBC) count Ordered By: Kassi Ontiveros on 06-19-2024 WBC (Bld) [#/Vol] 17.0 10*3/uL High 4.4-11.[address] [facility] Chlamydia/GC CONOR aptimaon CHLAMY,NUC ACID Negative Normal Negative [facility] Comment on above: Performed By: #### M 100.2200, L7000.1800 ####[facility] [address] [place], [place], [id number] GC BY NUC ACID Negative Normal Negative [facility] Comment on above: Result Comment: Perf ormed at: =G - [facility] [address] [id number] Diagnostic Imaging Manager: Agueda Cuadra MD, Phone: [phone] Performed By: #### M 100.2200, L7000.1800 ####[facility] [address] [place], [place], [address] Urine Cultureon 05-31-2024 [facility] Escherichia coli [place] Count 11,000-25,000 Escherichia coli: REACTION Ampicillin Islt HUMERA 4 Ampicillin+Sulbac Islt HUMERA <=2 S Cefepime Islt HUMERA <=0.12 S cefTRIAXone Islt HUMERA <=0.25 S Ciprofloxacin Islt HUMERA <=0.06 S B-Lactamase Extended Susc Islt NEG Gentamicin Islt HUMERA <=1 S levoFLOXacin Islt HUMERA <=0.12 S Meropenem Islt HUMERA <=0.25 S Nitrofurantoin Islt HUMERA <=16 S Pip+Tazo Islt HUMERA <=4 S TMP SMX Islt HUMERA <=[address] [facility] Comment on above: Performed By: #### M 100.2200, L7000.1800 ####[facility] [address] [place], [place], [id number] C. trachomatis rRNA CONOR+prob e Ql (Unsp spec)Ordered By: Kassi Ontiveros on 05-29-2024 Chlamydia DNA (CONOR) Negative Negative [facility] Neisseria gonorrhoeae nuclei c acid detection by amplified probe techniqueOrdered By: Kassi Ontiveros on 05-29-2024 N. gonorrhoeae DNA CONOR+probe Ql (Unsp spec) Negative Negative [facility] Comment on above: Performed at: =G - [facility] [address] [place] [id number] Director: Agueda Cuadra MD, Phone: [phone] Certified Endoscopy Technician Office Visit Reporton 05-29-2024 Certified Endoscopy Technician Office Visit Report [facility] [address], [address] [place] [address] OFFICE VISIT Date of Service: 05/29/24 MR#: [id number] Acct: [id number] Name: AIMEE REDDY Rep #: [id number] : 2000 Provider: JOEL kenyon Age/Sex: 24/F Location: [facility] [place] Status: Signed Intake Vital Signs 05/29/24 11:19 Height 5 ft 4 in Weight: 125 lb 4 oz BMI 21.4 BP 127/76 H Intake Visit Reasons: New OB, LMP 03/24/25, TERESITA 12/29/24 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 Is patient in pain?: No Allergies No Known Allergies Allergy (Unverified 05/29/24 11:18) Medications ???Medication ???Instructions ???Recorded ???Confirmed ???Type PNV 153-FA 400 mcg-om3 35 mg-dha tab PO 05/14/24 History 25 mg-epa 5 mg-fish oil chew tablet Last Menstrual Period: 03/24/24 Zika: Zika virus screening: Negative : No Have you fallen in the past year?: No PFSH PFSH Surgical History History of splenectomy Social History adopted: No household members: family service: No current occupational status: employed current occupation: [employer] pets and animals: Yes pets and animals: dog(s) history of recent travel: No sexually active: Yes Smoking Status: Former smoker Electronic Cigarette Use: with nicotine smoking status stop date: 03/24/24 alcohol intake: current alcohol intake frequency: a few times a month details: not while substance use type: does not use well-balanced diet: daily or most days caffeine: No eating out: 1-3 times/week during the past year weight has: remained stable what type of physical activity do you participate in: none ana m/alevism: Anabaptism seatbelt use: always do you feel safe at home: Yes additional social history: BF- Bhaskar Rodarte R [place] History 1 Elective abortions Hx Para 0 Spontaneous abortions Hx # Term Pregnancies Ectopic pregnancies Hx # Pregnancies Multiple births # of living children HPI New OB, LMP 03/24/25, TERESITA 12/29/24 Details: AIMEE ERDDY is a 24 year old who presents for New OB visit. OB Visit TERESITA Calculator Estimated Delivery Date Method Current WG Current Estimate 01/07/25 Ultrasound #1 8w 1d Other Estimates 12/29/24 LMP (Certain) 9w 3d Comments: HIV: Urine Culture: Sequential Screen: NIPT Screen: Estimated Due Date: 12/29/24 Initial Weight: 125 lb Date -???-???-???-???-???-??? -???-???-???-???-???-??? - EGA Weight BP Urine Prot -???-???-???-???-???-??? -???-???-???-???-???-??? - Glucose FHR FuHt Pres Dilation -???-???-???-???-???-??? -???-???-???-???-???-??? - Effaced St Visit Note 05/29/24 -???-???-???-???-???-??? -???-???-???-???-???-??? - 8w 1d 125 lb 4 oz (+4 oz) 127/76 -???-???-???-???-???-??? -???-???-???-???-???-??? - 166 -???-???-???-???-???-??? -???-???-???-???-???-??? - LC CRL 1.62 not con with LMP. LMP changed to 01/07/2025. desires nipt/carrier screening. will return in 2 weeks. Menstrual History Last Menstrual Period: 03/24/24 Reported LMP: definite Normal amount/duration: Yes Frequency in days: 28 On hormonal BC at conception: No hCG+: 04/28/24 Antepartum Record Genetic Screening: Congenital Heart Defect: Other, Neural Tube Defect: Other, Hemoglobinopathy Or Carrier: Other, Cystic Fibrosis: Other, Chromosome Abnormality: Other, Elfego-Sachs: Other, Hemophilia: Other, Intellectual Disability/Autism: Other, Recurrent Loss/Stillbirth: Other, Other Structural Defect: Other, Other Genetic Disease: Other and Maternal Metabolic Disorder: Other Infection History: Live with someone with TB or Exposed to TB: No, Patient or Partner has history of Genital Herpes: No, Rash or Viral illness since last mentrual period: No, Prior GBS-Infected child: No, History of STD: No, HIV Infection: No, History of Hepatitis: No, Recent travel outside of [place]: No, Concern for hepatitis exposure: No, Varicella immune: Yes (immune-vaccinated) and Covid Vaccinated: No Medical History Medical History: Positive: Operations/hospitalizati ons (Splenectomy 2011) and Negative: Diabetes, Hypertension, Heart disease, Auto-immune disorder, Kidney disease/UTI, Neurologic/epilepsy, Psychiatric, Depression/ depression, Hepatitis/liver disease, Varicosities/phlebitis, Thyroid dysfunction, Trauma/domestic violence, History of blood transfusions, D (Rh) Sensitized, Pulmonary (e.g.,TB,Asthma), Seasonal allergies, Drug/latex allergies/reactions, Breast, Body Line Finisher surgery, Anesthetic complications, History of abnormal pap (Has not had one yet), Uterine anomaly/edwina, Infertility, Anti-retroviral treatment, Relevant family history and Other ACOG First Trimester First Trimester: Discusse (more content not included)... Normal [facility] Urine cultureOrdered By: Dior Ontiveros on 05-29-2024 Bacteria identified Cx Nom (U) Escherichia coli Abnormal [facility] US PELVIC TRANSVAGINAL WITH COLOR FLOWon 03-18-2024 US PELVIC TRANSVAGINAL WITH COLOR FLOW EXAMINATION: US PELVIC TRANSVAGINAL WITH COLOR FLOW HISTORY: ORDERING SYSTEM PROVIDED HISTORY: Lower pelvic pain, TECHNOLOGIST PROVIDED HISTORY: Illness/Other Reason for exam: pelvic pain Cancer History: no Surgery, RadiationHistory: no Encounter Type: Subsequent/Follow-up Additional signs and symptoms: no ORDERING SYSTEM PROVIDED DIAGNOSIS CODES: R10.2 Pelvic pain in female COMPARISON: CT from 03/15/2024. TECHNIQUE: Transvaginal pelvic ultrasound and transabdominal pelvic ultrasound, with Doppler interrogation and duplex waveform analysis. FINDINGS: UTERUS: Measures 6.9 x 4.1 x 3.4 cm. Anteverted uterus. ENDOMETRIUM: Measures 1.4 cm. Heterogenous endometrial stripe. This is nonspecific. OVARIES: Bilateral ovaries are normal in size and echogenicity. Right ovary measures 3.2 x 1.5 x 1.8 cm. Left ovary measures 4.1 x 4.1 x 2.0 cm. Ovaries demonstrate color Doppler flow and appropriate spectral waveforms. Dominant left ovarian follicle measures 1.9 cm. MISCELLANEOUS: Free fluid in the pelvis. IMPRESSION: 1. Heterogeneity of the endometrial stripe, nonspecific. 2. Dominant left ovarian follicle. Otherwise normal ovaries. Workstation ID: [id number] Dictated by: RIC HART on SatMar 20, 2024 11:19:58 AM EDT Transcribed by: RIC HART on SatMar 20, 2024 11:19:58 AM EDT Finalized by: RIC HART on SatMar 20, 2024 11:19:[address] [facility] Comment on above: Order Comment: Injur y/Trauma or Illness?:Illness/Other How long have you had these symptoms (acute/chronic)?:Acute Reason for exam?:pelvic pain History of cancer?:no Surgeries, chemotherapy, or radiation?:no Type of Exam?:Subsequent/Follow-up Additional signs and symptoms?:no CT ABDOMEN PELVIS WITH IV CO NTRAST ONLYon 03-15-2024 CT ABDOMEN PELVIS WITH IV CONTRAST ONLY EXAM: CT ABDOMEN PELVIS WITH IV CONTRAST ONLY DATE: 03/15/2024 3:22 am TECHNIQUE: Axial CT images were obtained through the abdomen and pelvis following intravenous contrast administration. Multiplanar reformatted images also created. IOPAMIDOL 370 MG IODINE/ML (76 %) INTRAVENOUS SOLUTION - 75 mL, Dose reduction techniques were achieved by using automated exposure control and/or adjustment of mA and/or kV according to patient size and/or use of iterative reconstruction technique. HISTORY: ORDERING SYSTEM PROVIDED HISTORY: Lower abdominal pain, TECHNOLOGIST PROVIDED HISTORY: Illness/Other Reason for exam: lower abd pain Encounter Type: Initial Additional signs and symptoms: pain x hours ORDERING SYSTEM PROVIDED DIAGNOSIS CODES: R10.9 Abdominal pain, unspecified abdominal location COMPARISON: CT abdomen and pelvis: 01/28/2019, 11/08/2018 FINDINGS: Lower chest: The lower lungs are clear. Liver: The liver is homogeneous with normal contours and normal size. Gallbladder: The gallbladder is unremarkable. There is no intra or extrahepatic biliary dilatation. Pancreas: The pancreas is homogeneous without evidence for mass lesion or inflammation. Spleen: The spleen is absent. Adrenals: The adrenal glands are unremarkable Kidneys and bladder: The kidneys are unremarkable with no evidence for mass lesion, hydronephrosis or inflammation.The ureters demonstrate normal caliber.The urinary bladder is unremarkable. GI tract: There is a small amount of air and fluid in the stomach.Visualized small bowel is unremarkable without evidence for obstruction or active inflammation. The appendix is unremarkable. The visualized portion of the large bowel is unremarkable. Reproductive: The uterus is midline. There are multiple small ovarian cysts measuring up to 20 mm. There is dxyp-te-dofmvbhs free fluid in the pelvis. There is no suspicious adnexal mass. Lymph nodes: No retroperitoneal or abdominal lymphadenopathy. Vascular: The aorta demonstrates normal caliber without aneurysm or dissection.The branch vessels of the aorta are widely patent. Peritoneum: Mild to moderate ascites in the pelvis. Abdominal wall and Skeletal: Unremarkable without acute abnormality. _ IMPRESSION: 1. There is a tvvu-gk-ayogwnkm amount of free fluid in the pelvis which is nonspecific but likely relates to physiologic rupture of ovarian cyst. 2. There are small bilateral ovarian cysts measuring up to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 Past Medical History Description:NONE PER PT Past Surgical History Description:SPLENECTOMY CRITICAL CARE VITAL SIGNS: T PRBP SpO2O2(LPM) %FiO2 Method 01-Nov-2022 09:09:[id number]/75 97 MDM MDM/ED COURSE: Limitations to History: n/a HPI: Patient presents with several days of upper respiratory symptoms, cough congestion runny nose, and sore throat, symptoms seem to be getting worse, has tried zybr-rro-quffzus medications, here for further evaluation + fever. Additional History Obtained from: n/a -------- Physical Exam: Constitutional: Well-appearing, well-hydrated, no acute distress or respiratory distress, nontoxic Psychiatric: Alert and oriented x3, person place and time, no abnormalities to mood or affect, memory intact for/age and development HEENT: Pupils equal round reactive to light, conjunctive and lids normal in appearance, moist mucous membranes, narrow with some clear rhinorrhea and mild injection, external canals are normal, TMs mildly injected,, posterior pharynx with mild injection, uvula midline Neck:, No significant lymphadenopathy, no thyroid megaly, trachea midline, carotid pulses intact, no bruit or thrill Cardiovascular: Regular rate and rhythm, no murmurs gallops or rubs, no significant edema, normal perfusion, pulses intact distally Respiratory: No respiratory distress noted, normal respiratory rate and rhythm, no audible wheezing, rales, crackles, equal breath sounds bilaterally Neurological: Normal speech for patient's age; cranial nerves II through XII grossly intact, normal sensation and motor function, no meningeal signs Musculoskeletal: Normal gait and station for patient, normal skeletal frame and musculature, normal range of motion Skin: No abnormal rashes, skin warm and dry, normal color and intact GCS: 15 VS: As documented in the triage note and EMR flowsheet from this visit were reviewed. -------- Medical Decision Making: EKG Interpretation: N/A Differential Diagnoses Considered: URI, COVID, flu, pneumonia, acute otitis media, conjunctivitis, strep, sinusitis, foreign body, mono, wewp-umns-qrg-mouth/coxs ackie herpangina, bronchitis/bronchiolitis , croup, allergic rhinitis, asthma, pertussis Chronic Medical Conditions Significantly Affecting Care: External Records Reviewed:n/a Independent Interpretation of Studies: n/a Escalation of Care: Appropriate for outpatient management, and discharge recommended Consults: Social Determinants of Health Significantly Affecting Care: n/a Prescription Drug Consideration: patient has a month old rx for 10 mg prednisone, may take if needed. will only call rx if needed for + strep Diagnostic testing considered: CXR, ECG, sinus CT , cbc, cmp, sed rate, CRP DX: URI and pharyngitis Recommendations for treatment of the pain associated with your sore throat including drinking hot tea with honey and doing warm salt water gargles, place a teaspoon of salt 4 ounces warm water, gargle and, a few times per day. Patient educated that are also helpful and available sjos-tbs-hfqbnsi. I discussed the results and discharge plan with the patient and/or family/friend if present. I emphasized the importance of follow up with the physician I referred them to in the timeframe recommended. I explained reasons for the patient to return to the Emergency Department. Questions were addressed. The patient and/or family/friend expressed understanding. DISPOSITION Diagnosis/Annotation: ED Dx Name:Viral URI with cough Code:J06.9 Name:Pharyngitis Code:J02.9 Disposition: discharged Type: home CONSULT CRITICAL CARE TIME Is this a critically ill patient: no Electronic Signatures for Addendum Section: Alethea Najera (ELIA II) (Signed Addendum 01-Nov-2022 14:01) Attempted to contact pt with covid results, left message on machine Electronic Signatures: Jia Lindsay (SPECIAL EFFECTS PERSON-TEXTILE DYER) (Signed 01-Nov-2022 09:39) Authored: HPI, PMH, Results/Vital Signs, MDM/ED Course, Clinical Impression, Attestation, Chart Review, Scores Alethea Najera (ELIA II) (Signature Pending) Authored: Attestation Last Updated: 01-Nov-2022 14:01 (more content not included)... Normal [facility] GC + CHLAMYDIA BY AMPLIFIED DETECTIONon 09-26-2022 CHLAMYDIA TRACH.,AMPLIFIED Negative Normal Negative [facility] Comment on above: Result Comment: The APTIMA Combo 2 assay is FDA-approved for Chlamydia trachomatis and Neisseria gonorrhoeae testing on female endocervical and vaginal swabs, ThinPrep liquid pap samples, male urine samples and urethral swabs. Performance characteristics for Chlamydia trachomatis and Neisseria gonorrhoeae testing on specific rut-FWB-fkejgdua sample types (female urine samples) have been validated by [facility]. This laboratory is certified by CLIA to perform high complexity testing. Samples from all other sites are not validated for this method. Performed By: #### [facility] #### [facility] [address] [place], [place] [address] N.GONORRHEA,AMPLIFIED Negative Normal Negative [facility] Comment on above: Result Comment: The APTIMA Combo 2 assay is FDA-approved for Chlamydia trachomatis and Neisseria gonorrhoeae testing on female endocervical and vaginal swabs, ThinPrep liquid pap samples, male urine samples and urethral swabs. Performance characteristics for Chlamydia trachomatis and Neisseria gonorrhoeae testing on specific vlg-MKV-okldbkhr sample types (female urine samples) have been validated by [facility]. This laboratory is certified by CLIA to perform high complexity testing. Samples from all other sites are not validated for this method. Performed By: #### [facility] #### [facility] [address] [place] [address] GC + CHLAMYDIA BY AMPLIFIED DETECTIONon 09-25-2022 Lab Specimen Source Urine Normal [facility] Comment on above: Performed By: #### [facility] #### [facility] [address] [place] [address] GROUP A STREP,PCRon 09-26-19 23 GROUP A STREP,PCR Not detected Normal Not Detected [facility] Comment on above: Result Comment: This test was performed utilizing an FDA- cleared rapid nucleic acid amplification by PCR to qualitatively detect Group A Streptococci from throat swab specimens without the need for culture confirmation of negative results. Performed By: #### G APC1 #### [facility] [address] [place] [address] Lab Specimen Source Throat Normal [facility] Comment on above: Performed By: #### G APC1 #### [address] [place] [address] Provider Note - ED v3on 040 Provider Note - ED v3 Provider Note: Chart Review ED NOTES ED NOTES: Presents for evaluation of throat swelling and pain. Pain began 2-3 days ago. Pain is exacerbated by oral intake. Pt did not attempt any OTC meds or conservative measures. No fever, chills, vomiting, URI symptoms, vaginal discharge, abdominal pains n/v/d, or other constitutional S/S. Pt is concerned for STDs as she has a new partner. No other complaints. HISTORY OF PRESENTING ILLNESS AIMEE is a 22 year old Female and was seen by me at 25-Sep-2022 11:06. Triage Information: Most recent Vital Sign Value Date PAST MEDICAL HISTORY ALLERGIES/INTOLERANCES: No Known Allergies HEALTH HISTORY: No documented data. 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 HENMT: Airway patent, ears with clear tympanic membranes bilaterally. Nasal mucosa clear. Mouth with normal mucosa. Throat has 2+ tonsillar edema, erythema, no oropharyngeal exudates and uvula is midline. Face with anterior cervical lymphadenopathy. EYES: Clear bilaterally, pupils equal, round and reactive to light. CARDIOVASCULAR: Normal rate, regular rhythm. Heart sounds S1, S2. No murmurs, rubs or gallops. PMI non-displaced. RESPIRATORY: Breath sounds clear and equal bilaterally. GENITOURINARY: No discharge, no lesions per pt report. No CVA tenderness on exam. NEUROLOGICAL: Alert and oriented, no focal deficits, no motor or sensory deficits. SKIN: Skin normal color for race, warm, dry and intact. No evidence of trauma. PSYCHIATRIC: Alert and oriented to person, place, time/situation. normal mood and affect. No apparent risk to self or others. CRITICAL CARE VITAL SIGNS: T PRBP SpO2O2(LPM) %FiO2 Method 25-Sep-2022 11:00:[id number] MDM MDM/ED COURSE: Discussed Findings with: patient Data Reviewed: vital signs Awaiting: lab results Treatment Plan: Swab of throat obtained for gonorrhea/chlamydia/stre pA, urine obtained for gonorrhea/chlamydia. Will guide treatment with test results. Patient's clinical presentation is otherwise unremarkable at this time. Patient is discharged with instructions to follow-up with primary care or seek emergency medical attention for worsening symptoms or any new concerns. DISPOSITION Diagnosis/Annotation: ED Dx Name:Acute pharyngitis Code:J02.9 Disposition: discharged Type: home CONSULT CRITICAL CARE TIME Is this a critically ill patient: no Electronic Signatures for Addendum Section: Kevin Almeida (SPECIAL EFFECTS PERSON-TEXTILE DYER) (Signed Addendum 26-Sep-2022 15:16) Pt notified of urine STD test results. Prefers not to repeat oral swab as testing was not completed per lab. Rx Zpak and prednisone. Electronic Signatures: Kevin Almeida (SPECIAL EFFECTS PERSON-TEXTILE DYER) (Signed 26-Sep-2022 15:15) Authored: ED Notes, HPI, PMH, ROS, PE, Results/Vital Signs, MDM/ED Course, Clinical Impression, Attestation, Chart Review, Scores Last Updated: 26-Sep-2022 15:16 by Kevin Almeida (SPECIAL EFFECTS PERSON-TEXTILE DYER) [facility] Culture, Throaton 07-23-2022 Culture, Throat ORDER#: [id number] ORDERED BY: JAG GARCIA SOURCE: Throat Throat COLLECTED: 07/23/22 18:57 ANTIBIOTICS AT [facility].: RECEIVED : 07/23/22 19:12 Culture, Throat FINAL 07/26/22 10:34 Cult,Throat: Oral thuy, negative for Group A Strep and other beta Cult,Throat: hemolytic streptococci Performed at [facility] [address] [place] [address] ([phone] [facility] Comment on above: Performed By: #### C XTHR #### [facility] [address] [place] [id number] Culture, Throaton 04-11-2022 Culture, Throat ORDER#: [id number] ORDERED BY: JAG GARCIA SOURCE: Throat Throat COLLECTED: 04/11/22 19:02 ANTIBIOTICS AT [facility].: RECEIVED : 04/11/22 19:26 Culture, Throat FINAL 04/14/22 08:32 Cult,Throat: Oral thuy, negative for Group A Strep and other beta Cult,Throat: hemolytic streptococci Performed at [address] [address] ([phone] Normal [facility] Comment on above: Performed By: #### C XTHR #### [facility] [address] [place] [address] Coding Summary.on 01-30-2022 Coding Summary. [id number] Gh0b Ww+PGhlYWQ+HI5VNKYwS41va AQslA2GI2rWKR5BYHEYIQSJD G7WOR2mmKI8QGwzL6YnbaSk AvhmoJIbBY79MKr1COS9uUuu MHpokP9ssURfG7n8ZmLpET51 nL12JFxkWABqUbM4CtJsfmme bWFy D9teBfLvmQNzMuq+PHRhYmxl IHdpZHRoPScxMDAlJyBzdHls VX3uCj6eGUFeNZFkpQbeoSFy OiBj j3zfSOUsVFrvGS0kgZkmR7Fo hAR0AQHiw1b1Ro79iVM+PHRk ZFB3zAhlRHiof306DmNsa5pz IDM3 uURwLLctERM3B49qe2G6VZVe EQSxXTP4sAW7nL2stXhloefz S4BlrMYeVlH7DLL3kVZbtS6e bGln zitqeJ7mAqq+B39QLX3SLBRJ HA7PEar3R4MeUuussFR+PC90 NQSsTZ06gHZpuWFmh3wssAg7 JzEw IZPtXHN1tIhoURmmq5UbSKAh D74peHZbj5P4YRTqhZhrtSBw VsWcjWE2lC2nTBcctchjt8ku dzsn Uwskv3psur11bP47N92fVYlv FYDxZFY8YIHeIYFgoKewzu9r eV2rZt4+QAlsj2aem5xqxLa5 IjIw ECOsjaZtnUmjXYD5a2TtIo98 C5YzeHhub5CeKxu2ta36fKZs n5H6vHO7VLdiAQXssD0yJCax ZnQ6 SCLgEiJmxS11nJBbTZwiVp0j sImdsMduPS8mSBVgjzwcCIXk dC3vSDMixIXjvKgaVP3wTHKr bjtm s477NoTjQPG5CYGocSXgM2Ey rT6vGbEtLGNaLTPsZ9EpfGQn CJiaP046HRjfQcP9NWMlbiZb Y2Fs EXYxtLrmQiT9r4J3Jq2La1Nm vqyhFYL9VIryAHI6TuD3OlZx BjR4C5UaWyu5YXLccFfeJG8d J3Bh INZoxkptzvwkxTT2IPRfLUIz uV92zXIlXCwdWw0st1K1f636 JJQaKWKjvP03Io0xyHzqRUKu dCBU mK7nvyyqa8fbbcbqPhNyBAUj ZGl7GGj8OFQubNvkLyAlRWP5 AuK0JKV6hVGioY4isNhydwdd dG9w Oyc+Y08npL9qHUA1LDY7tkpr XTCcvxChHR46MM17W8LjCile dGFibGU+NAMptiOumIenGD0p YmFj s7czh4HwNJsfK7UdHQQqCYkz Kvm9UZCzHEP7vEG3sL0sCMAr FFbki5A4nLN7J0WbbpIgns3h b2xs XKRsYPleW46giKVmp3M3WFRc tMJ6YBZjdFvhNhSpjR89Dgt+ BPNaiGyvm6RkBuekt9hnz0vi dGg9 JkYnFVCicrFdnYgzPEN0k2Yt Dx05K13dHPwpWNRdHIChZEEp JOCcvYrkwg5xpJ3sCn0+PGNv bCB3 sYG6gT9qYXJzCjR9PSeoH268 DyZpkRBiArguu3joa8ptxIx2 ImWfYRDplnUdhJykKTA1f8Ua Lz48 J97gDRchRBTwNHGxPIIfOORf yRnbzc8snH1nIg0+YH0up4us zt67qJ29eXI+DITiFLA2sMul PSdw BIZcfZ1rOCzsByF4NQMaJuDa yD69nOVwOReeHg6ozKqxjKgs AK4nPJTjlcfyx910IyNzp8yd IDEw dIBlYIzuXLG1R88jn0O9PVOi HYXpUPU7hZS2hK3biPdqucti bGVmdDsgdmVydGljYWwtYWxp Z246 IHRvcDsnPlBhdGllbnQgTmFt KHh8K5JgZxb1GOJcaEoqYV1d eULbWSkgZa1eoQvcaXrkIJ6k NTBp hyfwj736BbCcl6oqLSBoeWRa QEnkLGD2V58ru0W8MSClUSKn LJG1bAD9pG4ubUbzsfylqOKu dDsg tuKhcRuoAIleBAdaH552NNPv aHehXjApgzWcSUWhxCR3EP81 SU52rVVmg3C1qKR2N2PlRIJl bmct yewhkYZ0WQAcHYWrbN69Mg1r bGibZh8yVRRsLOR0UJZykGPk K4RqvG5wYfJdUAFnRDUlL4Ml eHQt SBriX847WJvzSaN1LOHarkKq I5PrHXDycNhoSjQ0g8C7Zu1X Y7V5KU62KU47vPMtf2N3yIU1 J3Bh PHJkqsiquafalDX4DVNuPMXm cF40Fe7phWwtPh4zKVRcQJD0 MLGsgEAcR5ShwG7aAxLkHGCs MDAw B6CbfOGdABipV386AXteJeG2 PANsljEcA7CoBQYgcKlkLiI0 g9H7Vc8PKVc5EN26TH99qBHr c3R5 hGC6Z9WyLYSoyoembmpofYE3 XUJqCPKuhF52Zy2hoVvvHq5x IYNzRYP8TVIddVUuJ6TqyA2z OiAj BQBpQVAyI5PwpNHdKIpgV681 SUzqWcW4IDIcqeMpK7DdZUCw rFhoZcG5k1G9Fa4SFFYsUY50 IFR5 lHN0DD06BS41P0ClSlgslJXd bGU+PHRhYmxlIHdpZHRoPScx OJMvVfAzjYekAG0vQt5xSNDs LWNv sPmarCTqEhUfv2mjSSAeFSvd NT6fgCdwP9VojJL0KFIkt9s3 Gh09U98fS4NwxFC+PGNvbCB3 aWR0 sD7iCyOdLzO7GOipP451MnCu jKEiGvrld0cdt8uqnNu6YqJ5 MYZnsxNrtRavHUD4i6HvKv29 Y29s IHdpZHRoPSIxNSUiIHZhbGln le1nhW4fFb1+BQBzjOP8jKX5 xY8mTkOcGjJ1BEuhO784LmLw cCIv Nmsxm9hun0ikmLf9ZpOqRAYl jzUdyLayYZI8r2JlMn22D6Qq yDnwk3PhFmn7ps93zMUvr5J5 bGU9 N2YlTQMosphuiJYtmOcjLF7b DZXyhekkHWRqlD5vWDVtZ8g4 VvAlJgP7WSmkE2ArvxI4FSTc cHQg WXcxTVE1P98pe1W0WIYvENBd RXL5cTO3hW6yqPvfkjskyBYv cEfqodHfmBmbQQjsPYpaW573 IHRv bAnpJIOstZ2xTSXhxHJifGxq XH2aORBjxvpkHfySU64QCUGb BXKMDPSNMB23RX73oTPyy2I0 bGU9 D7DqLOBrosdxpjmnpZD0QPPa YNAexK71vIMzRHwrYo2hb8M2 f325PBAvGCUrfM27Hu8eiBln MTBw cAFRlJ9pwwhfk7pqymnnBoPq SWVvDDi8SQm6WTPeuZpoVwRb AFX7GcA7OXF4cZQehA6msDug bjog wF6nAfy+MDgvMjkvMjAwMDwv dGQ+HVWmZPL4aMvaSDixRWQm vI2rJHBaH7s2OjUkLrR5CGtn O3Bh SFCmsyseYy86dA6sRfWyHlV6 LXihA4ImshM4ZHJbxNSaCGiy SGQ7L29xf4A6UOSsRSBkECY3 dGV4 vE0kuXgtcvdjdERrvNdytvPp mZzhOMkdUOwaW950TUYqtSln TqXuFLgwIAPsLW79FW43gRLk c3R5 pHT8R7KbYFDjsjyrxgmtdOD7 GCPrFZFicE69hQWaVAamWk5n j2G2i718RRXwHMSnaW43Lu7h dDog SVPjuKJIgO0lfnobe9ipyoap GrHuMULrJJw7RWy6FNWruQxt DwLsRBS2QmO7TMW5mZNmzV7e bGln ipmjgU9oXue+PhPaJMmgKO50 VS52lBWgx8G5nXC8U3KzDREk ckitnmvikGT1WRDzUYMfzY42 cGFk WOzqMo4fh3D5g224SHWoDINi fG97Sj1ftJogBABqzMVXeM8x tzuxn1kjfrplLcCcGDDbBYu6 ZXh0 CBQhxIkkHiDaHSF2WhX3THW8 zGIbdB2yaEgrbuqksX1tUew+ WN9ssomcmbK6DS07MU34D1Ri Pjwv dGFibGU+PHRhYmxlIHdpZHRo GJolIRRvBzPgsLeeGZ8vGd6a WJReCORsqWinnZOeXrFjd9na YXBz DJhsJX8cbEquU4IzoYP1RUYq w6p0Oj84W09fV9IvdDL+PGNv bNJ6gZK1aP7tLdCdYuG7NPuy Z249 HaNfkJJbHxhlv6zjl5kjyHj2 MyIjJMPdtwRhnJxgXHU1n5Tg Yy40H84rJHycDEQwKCJkEHCt IHZh rPvuas8liZ3jTq4+PGNvbCB3 fJX0jG7zIdXvNyT0ALnfZ833 GsFdrYJlAoqtD92wA3AvgML+ PHRy Jmp6EKUiwBkxQH4zqTIoHBck Rg2iWEG4RiFoLkEdQLphX0Og VRWpgrxgeljwcWJ2RPGgOXTg aW47 Fs4qrNwkRt8aAMAiABE8HBTu fVDuM6KkmU4lYaSsNJBqUWIc F6LpbPMqEScnG590BYciOrR5 IHZl iuCeL0GiFGGiuOceFgN1q2K5 Wd8GsThrfZDpFW3hHpUfFNu3 C7UdZqu2HWGanDdqEM7rgDJr ZGlu Jm8ofRizfSjzUA0tYILulhhf m218KcGqm7doORCptNVwLYcx JSK8O20wm8A1SGQxAWPuLAQ3 dGV4 eM5itWlpcyfhbJEqbWrbcoZl mGdnSJgfWEucW880SAOhvYix UzGLZwk8G9BtJdf9WZIveKhu ZT0n wNKpUGgtGy4apAzppSfxGF9h CYFpfruud376KmNbn2geUSPi oZMzKDwdGIY3S78ms5N2TKVx MDAw WZK2fDD7uP4bcEjtabzqpLEu hOoeegTciZrxWFhpHIrnR444 VCGtaDqnLu8BGde0N3XpEkl8 ZCBz oEhbZZ7emEYxNWgsTy3pzCjg yVycQS7iQQNszuogl762CwPu y6jwZLKneOEeBJapBIR8K41a b3I6 ATCySBAuWLC5xMH3aU7cfDsp bjogbGVmdDsgdmVydGljYWwt TEbwZ649VKXjbCkgScVyzBUr Ojwv dGQ+IR06oe57N4MsAiuoHho3 TLDhNLK8pFD4pA9pPONjKLkp y4L1hFM5H5QaqiMfvw5mo2il YXBz ZTog (more content not included)... Normal [facility] C Urineon 01-29-2022 Bacteria identified Cx Nom (U) Microbiology PROCEDURE: Urine Culture [R1] SOURCE: U Random BODY SITE: COLLECTED DATE/TIME: 01/27/2022 17:52 EDT RECEIVED DATE/TIME: 01/27/2022 19:53 EDT START DATE/TIME: 01/27/2022 19:53 EDT FREE TEXT SOURCE: Jes Montesinos PA-C, PA-C, Kathryn E. FINAL REPORTS Final Report [] Verified Date/Time: 01/29/2022 08:22 EDT >100,000 cfu/ml Escherichia coli SUSCEPTIBILITY RESULTS LEGEND: S=Susceptible, N/R=Not Reported, Blank=Data not available, or drug not advisable or tested, I=Intermediate, ESBL=Extended spectrum beta-lactamase, R=Resistant, TFG=Thymidine-dependent strain, JOSE=Beta-lactamase positive, HUMERA=mcg/m;(mg/L), S*=Predicted susceptible interp, R*=Predicted resistant interp EC Antibiotic HUMERA Dilutn HUMERA Interp Amikacin <=16 S Ampicillin <=8 S Ampicillin/ <=8/4 S Sulbactam Aztreonam <=4 S Cefazolin <=2 S Cefepime <=2 S Cefoxitin <=8 S Ceftazidime <=1 S Ceftazidime/ <=8 S Avibactam Ceftriaxone <=1 S Ciprofloxacin <=1 S Ertapenem <=0.5 S Gentamicin <=4 S Levofloxacin <=2 S Meropenem <=1 S Nitrofurantoin <=32 S Piperacillin/ <=16 S Tazobactam Tetracycline <=4 S Tigecycline <=2 S Tobramycin <=4 S Trimethoprim/ <=2/38 S Sulfa Performing Locations R1: This test was performed at: [facility], [address] [place] [address], [address] , , [facility] Comment on above: Performed By: #### 2 [id number], [id number], [id number] ####[address] [place] [address] ED Note-Physicianon 01-29-20 ED Note-Physician Basic Information Time Seen: Jes Montesinos PA-C 01/27/2022 16:15 Chief Complaint patient states that she was seen here three weeks ago for seizures. followed up with neurology, 30 min EEG normal, suggested 2 hour and three day at home EEG. patient states that over past couple days frequency of seizures has increased. patients states History of Present Illness Ms. Aimee Reddy is a 21 yo female who presented to the ED with seizures and associated nausea. She states she had 10 seizures in 2.5 hrs this morning and has had these same episodes since 4th grade. The duration, severity, and frequency of the seizures have been increasing in the last few months. The patient was referred to both cardiology and neurology and no abnormalities have been found. She states these seizures are associated with an aura and that her entire body begins to tingle, she has SOB and tachycardia, and then the world goes black. They last about 15 seconds each and have been increasing in duration the past few months. After each seizure the patient states she has a period of confusion and stuttering before becoming fully aware. Patient is worried about day to day activities and would like to have MRI done to rule out any abnormalities. She admits to BARKER, fatigue, and nausea. She denies vomiting, fever, chills, trauma, dizziness, numbness, chest pain, palpitations, SOB, and bowel changes, neck pain, vomiting. Last normal menstrual cycle was a week ago. She denies chance of . Denies alcohol tobacco and drug use. Little elevated BMI Review of Systems Constitutional: no fever, no chills, no sweats, no weakness Skin: no Jaundice, no rash, no lesions, nopetechiae Respiratory: no shortness of breath, no cough, no orthopnea, no wheezing Cardiovascular: no chest pain, no palpitations, no edema Gastrointestinal: mild nausea, no vomiting, no diarrhea, no GI bleeding Genitourinary: no dysuria, no hematuria, no discharge, no pain Musculoskeletal: no back pain, no trauma Neurologic: mild headache, no dizziness, no numbness, no weakness Psychiatric: mild sleeping problems, no irritability, no mood swings/depression. Allergy/Immunologic: no seasonal allergies, no food allergies, no recurrent infections, no impaired immunity Additional ROS info: Except as noted in the above Review of Systems and in the History of Present Illness all other systems have been reviewed and are negative or noncontributory. Physical Exam Vitals & Measurements T: 36.8 ?C(Oral) HR: 73(Peripheral) RR: 18 BP: 111/55 SpO2: 99% HT: 162.0 cm HT: 162 cm WT: 48.0 kg WT: 48 kg BMI: 18.29 General: alert, no acute distress Skin: warm, dry Head: no trauma, normocephalic Neck: Trachea midline, no adenopathy, no tenderness Eye: normal conjunctiva, sclera clear ENMT: TM's clear, oral mucosa moist, no pharyngeal erythema or exudate Cardiovascular: regular rate and rhythm, normal peripheral perfusion Respiratory: Lungs CTA, respirations non labored Chest wall: no deformity. Gastrointestinal: soft, non distended, no tenderness, no guarding. Back: No tenderness, Normal ROM, Normal alignment. Extremities: no deformity, no trauma Neurological: oriented x 3, LOC appropriate for age, motor strength equal & normal bilaterally, sensation equal & normal bilaterally, speech normal Psychiatric: cooperative, affect appropriate for age, normal judgement, normal psychiatric thoughts. Medical Decision Making Patient is a 21-year-old female presents to the ED today for evaluation of increased seizure episodes. She is established with Dr. Arora and it has been recommended that she undergo further EEG testing. She is requesting an MRI. Explained patient that we do not do MRIs in the ED 4 headaches or seizures such as she has been experiencing chronically. We will obtain basic labs and UA. Patient to be medicated for her headache. On reassessment, pain is improved. Labs show nitrite positive UTI, are otherwise unremarkable. Patient will be placed on 5-day course of Macrobid. Encouraged patient to keep a headache/seizure diary for her follow-up with neuro. Patient is agreeable. Assessment/Plan 1. UTI (urinary tract infection) (N39.0: Urinary tract infection, site not specified) Ordered: nitrofurantoin, 100 mg = 1 cap(s), Oral, BID, X 5 day(s), # 10 cap(s), Refills(s) 0 2. Headache (R51.9: Headache, unspecified) Orders: diphenhydrAMINE, 25 mg = 0.5 mL, Injection, IV Push, Once, Stop date 01/27/22 17:19:00 EDT, STAT, Start date 01/27/22 17:19:00 EDT, 01/27/22 17:19:00 EDT ketorolac, 30 mg = 1 mL, Injection, IV Push, Once, Stop date 01/27/22 17:19:00 EDT, STAT, Start date 01/27/22 17:19:00 EDT, 01/27/22 17:19:00 EDT ondansetron, 4 mg = 2 mL, Injection, IV Push, Once, Stop date 01/27/22 16:25:00 EDT, STAT, Start date 01/27/22 16:25:00 EDT, 01/27/22 16:25:00 EDT Sodium Chloride 0.9% intravenous solution 1,000 mL, 1,000 mL, IV, bolus, STAT, Start date 01/27/22 16:21:00 EDT, Total volume (mL): 1,000, (more content not included)... Normal [facility] Comment on above: Result Comment: Elec tronically Signed By: Brittni Carreon M.D.\.br\Date and Time Signed: 01/28/22 07:16 EDT\.br\Electronically Co-Signed By: Jes Montesinos PA-C\.br\Date and Time Co-Signed: 01/28/22 00:21 EDT Auto Diffon 01-27-2022 Basophils/100 WBC (Bld) 1.1 % Normal 0.0-2.0 [facility] Comment on above: Order Comment: Order Added by Discern Expert. Performed By: #### 2 [id number], [id number], [id number], [id number] ####[facility] [id number] [place] [address] Basophils/Leukocytes Auto (Bld) [Pure # fraction] 0.1 E9/L Normal 0.0-0.2 [facility] Comment on above: Order Comment: Order Added by Discern Expert. Performed By: #### 2 [id number], [id number], [id number], [id number] ####[facility] [id number] [place] [address] Eosinophils/100 WBC (Bld) 2.7 % Normal 0.0-8.0 [facility] Comment on above: Order Comment: Order Added by Discern Expert. Performed By: #### 2 [id number], [id number], [id number], [id number] ####[facility] [id number] [place] [address] Eosinophils/Leukocyte s Auto (Bld) [Pure # fraction] 0.3 E9/L Normal 0.0-0.5 [facility] Comment on above: Order Comment: Order Added by Discern Expert. Performed By: #### 2 [id number], [id number], [id number], [id number] ####[facility] [id number] [place] [address] Lymphocytes/100 WBC (Bld) 35.8 % Normal 14.0-50.0 [facility] Comment on above: Order Comment: Order Added by Mckay Expert. Performed By: #### 2 [id number], [id number], [id number], [id number] ####[address] [address] Lymphocytes/Leukocyte s Auto (Bld) [Pure # fraction] 4.5 E9/L High 1.0-4.0 [facility] Comment on above: Order Comment: Order Added by Mckay Expert. Performed By: #### 2 [id number], [id number], [id number], [id number] ####[address] [address] Monocytes/100 WBC (Bld) 9.4 % Normal 4.0-14.0 [facility] Comment on above: Order Comment: Order Added by Mckay Expert. Performed By: #### 2 054192, [id number], [id number], [id number] ####[facility] [id number] [place] [address] Monocytes/Leukocytes Auto (Bld) [Pure # fraction] 1.2 E9/L High 0.2-1.0 [facility] Comment on above: Order Comment: Order Added by Mckay Expert. Performed By: #### 2 527231, [id number], [id number], [id number] ####[address] [place] [address] Neutrophils/100 WBC (Bld) 51.0 % Normal 36.0-75.0 [facility] Comment on above: Order Comment: Order Added by Discern Expert. Performed By: #### 2 [id number], [id number], [id number], [id number] ####[address] [place] [address] Neutrophils/Leukocyte s Auto (Bld) [Pure # fraction] 6.4 E9/L Normal 2.0-7.5 [facility] Comment on above: Order Comment: Order Added by Discern Expert. Performed By: #### 2 [id number], [id number], [id number], [id number] ####[address] [address] CBC w/ Auto Diffon Erythrocyte distribution width (RBC) [Ratio] 13.7 % Normal 10.9-14.2 [facility] Comment on above: Performed By: #### 2 599626, [id number], [id number], [id number] ####[address] [address] Hematocrit (Bld) [Volume fraction] 36.2 % Normal 34.0-46.0 [facility] Comment on above: Performed By: #### 2 [id number], [id number], [id number], 9597912 ####[address] [place] [address] Hemoglobin (Bld) [Mass/Vol] 11.5 g/dL Low 12.0-16.0 [facility] Comment on above: Performed By: #### 2 927204, [id number], 3745840, 8342226 ####[address] [place] [address] MCH (RBC) [Entitic mass] 28.6 pg Normal 27.0-34.0 [facility] Comment on above: Performed By: #### 2 249867, [id number], 1848974, 1854705 ####[address] [place] [id number] MCHC (RBC) [Mass/Vol] 31.9 g/dL Normal 31.4-36.0 [facility] Comment on above: Performed By: #### 2 146675, [id number], 9583288, 8496469 ####[facility] [address] [place] [address] MCV (RBC) [Entitic vol] 89.7 fL Normal 80.0-100.0 [facility] Comment on above: Performed By: #### 2 421012, [id number], 2877283, 2577597 ####[facility] [address] [place] [id number] Platelet mean volume (Bld) [Entitic vol] 9.4 fL Normal 6.4-10.8 [facility] Comment on above: Performed By: #### 2 561749, [id number], 2968566, [id number] ####[facility] [address] [place], [place] [id number] Platelets (Bld) [#/Vol] 296.0 E9/L Normal 150.0-500.0 [facility] Comment on above: Performed By: #### 2 946999, [id number], 5568592, 7549402 ####[facility] [address] [place] [address] RBC (Bld) [#/Vol] 4.0 E12/L Low 4.3-5.9 [facility] Comment on above: Performed By: #### 2 065646, 93899991, 9131264, 4640498 ####[facility] [address] [place] [address] WBC corrected for nucl RBC Auto (Bld) [#/Vol] 12.5 E9/L High 4.0-11.0 [facility] Comment on above: Performed By: #### 2 915435, [id number], 2261608, 2996546 ####[facility] [address] [place] [id number] CHEMISTRYOrdered By: SYSTEM SYSTEM on 01-27-2022 Albumin [Mass/Vol] 4.0 g/dL Normal 3.3 - 5.0 gm/dL [facility] Albumin/Globulin [Mass ratio] 1.2 {ratio} Normal 1.1 - 2.2 [facility] ALP [Catalytic activity/Vol] 55 [iU]/d Normal 21 - 98 Int._Unit/L [facility] ALT No additional P-5'-P [Catalytic activity/Vol] 13 [iU]/d Normal 6 - 46 Int._Unit/L [facility] Anion gap [Moles/Vol] 11 mmol/L Normal 6 - 16 mEq/L [facility] AST [Catalytic activity/Vol] 17 [iU]/d Normal 5 - 43 Int._Unit/L [facility] Bilirubin [Mass/Vol] 0.6 mg/dL Normal 0.0 - 1 .1 mg/dL [facility] Calcium [Mass/Vol] 9.2 mg/dL Normal 8.9 - 11. 1 mg/dL [facility] Chloride [Moles/Vol] 106 mmol/L Normal 101 - 1 11 mmol/L [facility] CO2 [Moles/Vol] 23 mmol/L Normal 21 - 31 mmol/L [facility] Creatinine [Mass/Vol] 0.7 mg/dL Normal 0.5 - 1.3 mg/dL [facility] GFR/1.73 sq M.predicted among blacks MDRD (S/P/Bld) [Vol rate/Area] mL/min/1.73 m2 Normal >=59mL/min/1 .73 m2 FT Chem S GFR/1.73 sq M.predicted among non-blacks MDRD (S/P/Bld) [Vol rate/Area] mL/min/1.73 m2 Normal >=59mL/min/1 .73 m2 FT Chem S Globulin (S) [Mass/Vol] 3.4 g/dL Normal 1.4 - 4.0 gm/dL [facility] Glucose [Mass/Vol] 91 mg/dL Normal 55 - 199 mg/dL [facility] Potassium [Moles/Vol] 3.7 mmol/L Normal 3.5 - 5.3 mmol/L [facility] Protein [Mass/Vol] 7.4 g/dL Normal 6.0 - 7.8 gm/dL [facility] Remisol Sodium [Moles/Vol] 136 mmol/L Normal 135 - 145 mmol/L [facility] Remisol Urea nitrogen [Mass/Vol] 15 mg/dL Normal 5 - 21 mg/dL [facility] Remisol Urea nitrogen/Creatinine [Mass ratio] 21 mg/mg High 10 - 20 [facility] Remisol CMPon 01-27-2022 Albumin [Mass/Vol] 4.0 g/dL Normal 3.3-5.0 [facility] Comment on above: Performed By: #### 2 687831, 24071769, 6869533, 8415258 ####[facility] [address] [place] [address] Albumin/Globulin (S) [Mass conc ratio] 1.2 Normal 1.1-2.2 [facility] Comment on above: Performed By: #### 2 983874, 58353496, 4819815, 2671074 ####[facility] [address] [place] [address] ALP [Catalytic activity/Vol] 55 Int._Unit/L Normal 21-98 [facility] Comment on above: Performed By: #### 2 306526, 24966329, 7251299, 0464688 ####[facility] [address] [place] [address] ALT No additional P-5'-P [Catalytic activity/Vol] 13 Int._Unit/L Normal 6-46 [facility] Comment on above: Performed By: #### 2 819084, 52680349, 5343817, 8287798 ####[facility] [address] [place] [address] AST [Catalytic activity/Vol] 17 Int._Unit/L Normal 5-43 [facility] Comment on above: Performed By: #### 2 854067, 59082393, 7058125, 6081248 ####[facility] [address] [place] [address] Bilirubin [Mass/Vol] 0.6 mg/dL Normal 0.0-1.1 [facility] Comment on above: Performed By: #### 2 720773, 53776903, 6005044, 5830871 ####[facility] [address] [place] [address] Creatinine [Mass/Vol] 0.7 mg/dL Normal 0.5-1.3 [facility] Comment on above: Performed By: #### 2 508095, 61063642, 9998655, 0350262 ####[facility] [address] [place] [address] Globulin (S) [Mass/Vol] 3.4 g/dL Normal 1.4-4.0 [facility] Comment on above: Performed By: #### 2 517723, 19571080, 1580394, 3353199 ####[facility] [address] [place] [address] Protein [Mass/Vol] 7.4 g/dL Normal 6.0-7.8 [facility] Comment on above: Performed By: #### 2 754495, 25559327, 2660055, 9260691 ####[facility] [address] [place] [address] Urea nitrogen [Mass/Vol] 15 mg/dL Normal 5-21 [facility] Comment on above: Performed By: #### 2 482051, 43765527, 6382780, 1085718 ####[facility] [address] [place] [address] Urea nitrogen/Creatinine [Mass ratio] 21 No Units High 10-20 [facility] Comment on above: Performed By: #### 2 619136, 19294064, 3905392, 5187572 ####[facility] [address] [place] [address] Anion gap [Moles/Vol] 11 mmol/L Normal 6-16 [facility] Comment on above: Performed By: #### 2 128165, 64600164, 2100140, 9735112 ####[facility] [address] [place] [address] Calcium [Mass/Vol] 9.2 mg/dL Normal 8.9-11.1 [facility] Comment on above: Performed By: #### 2 325274, 59204467, 0681265, 8308240 ####[facility] [address] [place] [address] Chloride [Moles/Vol] 106 mmol/L Normal 101-111 [facility] Comment on above: Performed By: #### 2 435121, 20652879, 5945268, 4632282 ####[facility] [address] [place] [address] CO2 [Moles/Vol] 23 mmol/L Normal 21-31 [facility] Comment on above: Performed By: #### 2 205487, 43634897, 3068400, 2687624 ####[facility] [address] [place] [address] Glucose [Mass/Vol] 91 mg/dL Normal 55-199 [facility] Comment on above: Result Comment: If t his glucose result represents a fasting glucose, interpretation should refer to the following reference range: 55-99 mg/dL Performed By: #### 2 217321, 18530176, 5993829, 9635648 ####[facility] [address] [place] [address] Potassium [Moles/Vol] 3.7 mmol/L Normal 3.5-5.3 [facility] Comment on above: Performed By: #### 2 791469, 19842359, 5886970, 8238783 ####[facility] [address] [place] [address] Sodium [Moles/Vol] 136 mmol/L Normal 135-145 [facility] Comment on above: Performed By: #### 2 109243, 54786695, 1000104, 2741989 ####[facility] [address] [place] [address] Consent for Treatmenton 0 Consent for Treatment [id number]: 127 Normal [facility] Discharge Instructionson Discharge Instructions [id number]:1 27 Normal [facility] ED Clinical Summaryon 2021 ED Clinical Summary (Inserted Image. Kristine ble to display) [place] [id number] ED Clinical Summary Person Information Name: AIMEE REDDY/Fernandez Age: 21 Years : 2000 Sex: Female Language: [place] PCP: Britt Aguilar MD Marital Status: Single Visit Id: Visit Reason: Nausea; Headache; Seizure; SEIZURES Speciality: Acuity: 3 Enc Type: Emergency Med Service: Emergency Arrival: 01/27/2022 16:00:57 Discharge: 01/27/2022 19:10:17 LOS: 000 03:10 Checkin: 01/27/2022 16:00:57 Checkout: 01/27/2022 19:10:17 Dispo Type: Home (Routine DC) EVENTS: Event Name Event Status Request Date/Time Start Date/Time Complete Date/Time Arrive Complete 01/27/2022 16:00:57 01/27/2022 16:00:57 01/27/2022 16:00:57 Document Home Meds Request 01/27/2022 16:00:57 Triage Complete 01/27/2022 16:00:57 01/27/2022 16:08:23 01/27/2022 16:08:23 Bed Assign Complete 01/27/2022 16:03:33 01/27/2022 16:03:33 01/27/2022 16:03:33 Dr Exam Complete 01/27/2022 16:03:34 01/27/2022 16:04:20 01/27/2022 16:04:20 RN Exam Complete 01/27/2022 16:03:34 01/27/2022 17:07:11 01/27/2022 17:07:11 Registration Complete 01/27/2022 16:04:20 01/27/2022 16:05:55 01/27/2022 16:05:55 Reg Complete Request 01/27/2022 16:05:55 Reg Bed Request Complete 01/27/2022 16:05:55 01/27/2022 16:05:55 01/27/2022 16:05:55 Dr Exam Complete 01/27/2022 16:15:20 01/27/2022 16:15:20 01/27/2022 16:15:20 Registration Complete 01/27/2022 16:15:20 01/27/2022 18:00:32 01/27/2022 18:00:32 EKG Complete 01/27/2022 16:17:21 01/27/2022 16:30:31 Patient Care Complete 01/27/2022 16:17:21 01/27/2022 17:07:25 Pending Labs Complete 01/27/2022 16:17:21 01/27/2022 18:33:52 Lab Complete 01/27/2022 16:17:21 01/27/2022 18:33:52 Urine Collect Complete 01/27/2022 16:17:21 01/27/2022 18:33:52 Meds Admin Request 01/27/2022 16:21:59 Dr Exam Complete 01/27/2022 16:25:33 01/27/2022 16:25:33 01/27/2022 16:25:33 Meds Admin Complete 01/27/2022 16:26:52 01/27/2022 16:41:26 Pending Labs Complete 01/27/2022 16:55:30 01/27/2022 16:55:30 01/27/2022 17:18:56 Lab Complete 01/27/2022 16:55:30 01/27/2022 16:55:30 01/27/2022 17:18:56 Meds Admin Complete 01/27/2022 17:20:10 01/27/2022 17:27:37 Pending Labs Complete 01/27/2022 17:34:42 01/27/2022 17:34:42 01/27/2022 17:34:48 Lab Complete 01/27/2022 17:34:42 01/27/2022 17:34:42 01/27/2022 17:34:48 Pending Labs Collected 01/27/2022 18:17:36 01/27/2022 18:17:36 Lab Collected 01/27/2022 18:17:36 01/27/2022 18:17:36 Pending Labs Complete 01/27/2022 18:30:53 01/27/2022 18:30:53 01/27/2022 18:30:54 Discharge Complete 01/27/2022 19:04:13 01/27/2022 19:10:22 01/27/2022 19:10:22 Transfer Complete 01/27/2022 19:10:22 01/27/2022 19:10:22 01/27/2022 19:10:22 ADDRESS: [address] [place] [id number] PHYS DOC NOTES: MEDICAL INFORMATION: Prescriptions Given: New Medications Printed Prescriptions nitrofurantoin (Macrobid 100 mg Cap) 1 Capsules By Mouth 2 times a day for 5 Days. Refills: 0. PATIENT EDUCATION INFORMATION: Instructions: Urinary Tract Infection, Adult, Bovl-bc-Kbcj Follow up: With: Address: When: Ulysses VERDE, STEPHNE Gamble [address] [place] [address] In 3 days 01/30/2022 With: Address: When: Lauren VERDE, Britt [facility] [place] [address] In 3 days 01/30/2022 DIAGNOSIS: 1:UTI (urinary tract infection); 2:Headache Normal [facility] ED Note-Nursingon 01-27-2022 ED Note-Nursing seizure pads applied Normal [facility] ED Patient Education Noteon 01-27-2022 ED Patient Education Note Obstetrics and Gynecology Urinary Tract Infection, Adult A urinary tract infection (UTI) is an infection of any part of the urinary tract. The urinary tract includes: ? The kidneys. ? The ureters. ? The bladder. ? The urethra. These organs make, store, and get rid of pee (urine) in the body. What are the causes? This is caused by germs (bacteria) in your genital area. These germs grow and cause swelling (inflammation) of your urinary tract. What increases the risk? You are more likely to develop this condition if: ? You have a small, thin tube (catheter) to drain pee. ? You cannot control when you pee or poop (incontinence). ? You are female, and: ? You use these methods to prevent : ? A medicine that kills sperm (spermicide). ? A device that blocks sperm (diaphragm). ? You have low levels of a female hormone (estrogen). ? You are . ? You have genes that add to your risk. ? You are sexually active. ? You take antibiotic medicines. ? You have trouble peeing because of: ? A prostate that is bigger than normal, if you are male. ? A blockage in the part of your body that drains pee from the bladder (urethra). ? A kidney stone. ? A nerve condition that affects your bladder (neurogenic bladder). ? Not getting enough to drink. ? Not peeing often enough. ? You have other conditions, such as: ? Diabetes. ? A weak disease-fighting system (immune system). ? Sickle cell disease. ? Gout. ? Injury of the spine. What are the signs or symptoms? Symptoms of this condition include: ? Needing to pee right away (urgently). ? Peeing often. ? Peeing small amounts often. ? Pain or burning when peeing. ? Blood in the pee. ? Pee that smells bad or not like normal. ? Trouble peeing. ? Pee that is cloudy. ? Fluid coming from the vagina, if you are female. ? Pain in the belly or lower back. Other symptoms include: ? Throwing up (vomiting). ? No urge to eat. ? Feeling mixed up (confused). ? Being tired and grouchy (irritable). ? A fever. ? Watery poop (diarrhea). How is this treated? This condition may be treated with: ? Antibiotic medicine. ? Other medicines. ? Drinking enough water. Follow these instructions at home: Medicines ? Take kbqp-jmi-mxbsilz and prescription medicines only as told by your doctor. ? If you were prescribed an antibiotic medicine, take it as told by your doctor. Do not stop taking it even if you start to feel better. General instructions ? Make sure you: ? Pee until your bladder is empty. ? Do not hold pee for a long time. ? Empty your bladder after sex. ? Wipe from front to back after pooping if you are a female. Use each tissue one time when you wipe. ? Drink enough fluid to keep your pee pale yellow. ? Keep all follow-up visits as told by your doctor. This is important. Contact a doctor if: ? You do not get better after 1?2 days. ? Your symptoms go away and then come back. Get help right away if: ? You have very bad back pain. ? You have very bad pain in your lower belly. ? You have a fever. ? You are sick to your stomach (nauseous). ? You are throwing up. Summary ? A urinary tract infection (UTI) is an infection of any part of the urinary tract. ? This condition is caused by germs in your genital area. ? There are many risk factors for a UTI. These include having a small, thin tube to drain pee and not being able to control when you pee or poop. ? Treatment includes antibiotic medicines for germs. ? Drink enough fluid to keep your pee pale yellow. This information is not intended to replace advice given to you by your health care provider. Make sure you discuss any questions you have with your health care provider. Document Released: 11/26/2008 Document Revised: 05/28/2019 Document Reviewed: 12/18/2018 [employer] Patient Education ? 2019 NoteSick. Normal [facility] ED Patient Summaryon 022 ED Patient Summary (Inserted Image. Kristine ble to display) [place] [id number] Patient Discharge Instructions Person Information Name: AIMEE REDDY Age: 21 Years Arrival Date: 01/27/2022 16:00:57 Discharge Diagnosis: 1:UTI (urinary tract infection); 2:Headache Primary Care Physician: Britt Aguilar MD Provider Information Primary Provider: Brittni Carreon M.D. [employer]:Jes Montesinos PA-C The exam and treatment you received in the Emergency Department were for an urgent problem and are not intended as complete care. It is important that you follow up with a doctor, nurse practitioner, or physician?s financial legal assistant for ongoing care. If your symptoms become worse or you do not improve as expected and you are unable to reach your usual health care provider, you should return to the Emergency Department. We are available 24 hours a day. ANJELSAMAIMEE HICKS has been given the following list of patient education materials, prescriptions and follow-up instructions: Follow-up Instructions: With: Address: When: Ulysses VERDE, Tye, STEPHEN [address] [place] [address] In 3 days 01/30/2022 With: Address: When: Lauren VERDE, Britt [facility] [place] [address] In 3 days 01/30/2022 In the event that this physician does not participate in your insurance network, please consult with your insurance company to find a nearby participating provider. Patient Education Materials: Urinary Tract Infection, Adult, Kzfo-rl-Ejqj A MESSAGE TO ALL PATIENTS REGARDING OPIOIDS PRESCRIPTION OPIOIDS: WHAT YOU NEED TO KNOW Prescription opioids can be used to help relieve cvbputpi-wj-lpcpkt pain and are often prescribed following a surgery or injury, or for certain health conditions. These medications can be an important part of the treatment but also come with serious risks. It is important to work with your healthcare provider to make sure you are getting the safest, most effective care. WHAT ARE THE RISKS AND SIDE EFFECTS OF OPIOID USE? Prescription opioids carry serious risks of addiction and overdose, especially with prolonged use. An opioid overdose, often marked by slowed breathing, can cause sudden . The use of prescription opioids can have a number of side effects as well, even when taken as directed: ? Tolerance?meaning you might need to take more of the medication for the same pain relief ? Physical dependence?meaning you have symptoms of withdrawal when a medication is stopped ? Increased sensitivity to pain ? Constipation ? Nausea, vomiting, and dry mouth ? Sleepiness and dizziness ? Confusion ? Depression ? Low levels of testosterone that can result in lower sex drive, energy, and strength ? Itching and sweating RISKS ARE GREATER WITH: ? History of drug misuse, substance use disorder, or overdose ? Mental health conditions (such as depression or anxiety) ? Sleep apnea ? Older age (65 years and older) ? Avoid alcohol while taking prescription opioids. Also, unless specifically advised by your health care provider, medications to avoid include: ? Benzodiazepines (such as Xanax or Valium) ? Muscle relaxants (such as Soma or Flexeril) ? Hypnotics (such as Ambien or Lunesta) ? Other prescription opioids KNOW YOUR OPTIONS Talk to your health care provider about ways to manage your pain that don?t involve prescription opioids. Some of these options may actually work better and have fewer risks and side effects. Options may include: ? Pain relievers such as acetaminophen, ibuprofen, and naproxen ? Some medication that are also used for depression or seizures ? Physical therapy and exercise ? Cognitive behavioral therapy, a psychological, goal-directed approach, in which patients learn how to modify physical, behavioral, and emotional triggers of pain and stress. IF YOU ARE PRESCRIBED OPIOIDS FOR PAIN: ? Never take opioids in greater amounts or more often than prescribed. ? Follow up with your primary health care provider. o Work together to create a plan on how to manage your pain. o Talk about ways to help manage your pain that don?t involve prescription opioids. o Talk about any and all concerns and side effects. ? Help prevent misuse and abuse o Never sell or share prescription opioids. o Never use another person?s prescription opioids. ? Store prescription opioids in a secure place and out of reach of others (this may include visitors, children, friends, and family). ? Safely dispose of unused prescription opioids: Find your community drug take-back program or your pharmacy mail-back program, or flush them down the toilet, following guidance from the Food and Drug Administration (www.fda.gov/Drugs/Resou rcesForYou). ? Visit www.cdc.gov/drugoverdose to learn about the risks of opioids abuse and overdose. ? If you believe you may be struggling with (more content not included)... Normal [facility] HEMATOLOGYOrdered By: SYSTEM SYSTEM on 01-27-2022 Basophils/100 WBC (Bld) 1.1 % Normal 0.0 - 2.0 % [facility] HemeAutoSS Basophils/Leukocytes Auto (Bld) [Pure # fraction] 0.1 E9/L Normal 0.0 - 0.2 E9/L [facility] HemeAutoSS Eosinophils/100 WBC (Bld) 2.7 % Normal 0.0 - 8.0 % [facility] HemeAutoSS Eosinophils/Leukocyte s Auto (Bld) [Pure # fraction] 0.3 E9/L Normal 0.0 - 0.5 E9/L [facility] HemeAutoSS Lymphocytes/100 WBC (Bld) 35.8 % Normal 14.0 - 50.0 % [facility] HemeAutoSS Lymphocytes/Leukocyte s Auto (Bld) [Pure # fraction] 4.5 E9/L High 1.0 - 4.0 E9/L [facility] HemeAutoSS Monocytes/100 WBC (Bld) 9.4 % Normal 4.0 - 14.0 % [facility] HemeAutoSS Monocytes/Leukocytes Auto (Bld) [Pure # fraction] 1.2 E9/L High 0.2 - 1.0 E9/L [facility] HemeAutoSS Neutrophils/100 WBC (Bld) 51.0 % Normal 36.0 - 75.0 % [facility] HemeAutoSS Neutrophils/Leukocyte s Auto (Bld) [Pure # fraction] 6.4 E9/L Normal 2.0 - 7.5 E9/L [facility] HemeAutoSS HEMATOLOGYOrdered By: Cheryl Hills on 01-27-2022 Erythrocyte distribution width (RBC) [Ratio] 13.7 % Normal 10.9 - 14.2 % [facility]eAutoSS Hematocrit (Bld) [Volume fraction] 36.2 % Normal 34.0 - 46.0 % [facility]eAutoSS Hemoglobin (Bld) [Mass/Vol] 11.5 g/dL Low 12.0 - 16.0 gm/dL [facility]eAuto[facility] MCH (RBC) [Entitic mass] 28.6 pg Normal 27.0 - 34.0 pg [facility]eAutoSS MCHC (RBC) [Mass/Vol] 31.9 g/dL Normal 31.4 - 36.0 gm/dL [facility]eAutoSS MCV (RBC) [Entitic vol] 89.7 fL Normal 80.0 - 100.0 fL [facility]eAutoSS Platelet mean volume (Bld) [Entitic vol] 9.4 fL Normal 6.4 - 10.8 fL [facility] HemeAutoSS Platelets (Bld) [#/Vol] 296.0 E9/L Normal 150.0 - 500.0 E9/L [facility]eAutoSS RBC (Bld) [#/Vol] 4.0 E12/L Low 4.3 - 5.9 E12/L [facility] WBC corrected for nucl RBC Auto (Bld) [#/Vol] 12.5 E9/L High 4.0 - 11.0 E9/L [facility] HemeAutoSS Monitor Recordon 01-27-2022 Monitor Record [id number] :127 Normal [facility] SEROLOGYOrdered By: Cheryl brown on 01-27-2022 HCG.beta subunit (U) [Moles/Vol] Negative Normal [facility] Man Sero U BetaHcg Qualon 01-27-2022 HCG.beta subunit (U) [Moles/Vol] Negative Normal [facility] Comment on above: Performed By: #### 2 5281298, 69603003, 1858395 ####[facility] [address] [place] [address] UA With Cult Reflexon 2021 Bacteria LM Ql (Urine sed) 3+ /HPF Abnormal Trace [facility] Comment on above: Performed By: #### 2 2049528, 05639977, 6533397 ####[facility] [address] [place] [address] Epithelial cells.squamous LM.HPF (Urine sed) [#/Area] 5-8 Normal 0-2 [facility] Comment on above: Performed By: #### 2 4810067, 11263421, 1668638 ####[facility] [address] [place] [address] [place].plasma/Lithiu m.RBC (Bld) [Mass ratio] 0-3 Normal 0-3 [facility] Comment on above: Performed By: #### 2 9699060, 26241191, 0379937 ####[facility] [address] [place] [address] WBC LM.HPF (Urine sed) [#/Area] 16-25 Abnormal 0-5 [facility] Comment on above: Performed By: #### 2 2055318, 72515950, 4992055 ####[facility] [address] [place] [address] Bilirubin Ql (U) Negative Normal Negative [facility] Comment on above: Performed By: #### 2 9629109, 54771452, 9564145 ####[facility] [address] [place] [address] Clarity (U) CLEAR Normal Clear [facility] Comment on above: Performed By: #### 2 5596334, 98740704, 5207282 ####[facility] [address] [place] [address] Color (U) YELLOW Normal Yellow [facility] Comment on above: Performed By: #### 2 1218984, 04178814, 0536557 ####[facility] [address] [place] [address] Glucose Test strip (U) [Mass/Vol] Negative Normal Negative [facility] Comment on above: Performed By: #### 2 0035872, 13287226, 7391579 ####[facility] [address] [place] [address] Hemoglobin Ql (U) Negative Normal Negative [facility] Comment on above: Performed By: #### 2 2727224, 10354597, 3422559 ####[facility] [address] [place] [address] Ketones (U) [Mass/Vol] Negative Normal Negative [facility] Comment on above: Performed By: #### 2 8568331, 65723819, 3477674 ####[facility] [address] [place] [address] Nitrite Ql (U) Positive Abnormal Negative [facility] Comment on above: Performed By: #### 2 0007133, 55744193, 7035591 ####[facility] [address] [place] [address] pH (U) 8.0 [pH] Invalid Interpretation Code 5.0-9.0 [facility] Comment on above: Performed By: #### 2 1107782, 93161822, 3332063 ####[facility] [address] [place] [address] Protein (U) [Mass/Vol] Negative Normal Negative [facility] Comment on above: Performed By: #### 2 3932547, 27635639, 2207254 ####[facility] [address] [place] [address] Specific gravity (U) [Rel density] 1.015 Invalid Interpretation Code 1.005-1.030 [facility] Comment on above: Performed By: #### 2 5091274, 84146981, 4304568 ####[facility] [address] [place] [id number] Type of Urine collection method Random Urine Normal [facility] Comment on above: Performed By: #### 2 0735607, 73469406, 0989299 ####[place] [address] [place] [address]57 Urobilinogen Qn (U) 1.0 {Polina'U}/dL Normal 0.0-1.0 [facility] Comment on above: Performed By: #### 2 3580728, 49136015, 8529343 ####[facility] [address] [place], [place] [address] WBC Auto Ql (U) Negative Normal Negative [facility] Comment on above: Performed By: #### 2 3089977, 84059880, 6124770 ####[facility] [address] [place], [place] [address] URINALYSISOrdered By: Cheryl Hills on 01-27-2022 Bacteria LM Ql (Urine sed) 3+ /HPF Invalid Interpretation Code Trace/HPF [facility] UA Auto SS Bilirubin Ql (U) Negative (01/27/22 5:52 PM) Normal Negative [facility] UA Auto SS Clarity (U) Clear (01/27/22 5:52 PM) Normal Clear [facility] UA Auto SS Color (U) Yellow (01/27/22 5:52 PM) Normal Yellow [facility] UA Auto SS Epithelial cells.squamous LM.HPF (Urine sed) [#/Area] 5-8 /HPF Normal 0-2/HPF [facility] UA Aut o SS Glucose Test strip (U) [Mass/Vol] Negative (01/27/22 5:52 PM) Normal Negative [facility] UA Auto SS Hemoglobin Ql (U) Negative (01/27/22 5:52 PM) Normal Negative [facility] UA Auto SS Ketones (U) [Mass/Vol] Negative (01/27/22 5:52 PM) Normal Negative [facility] UA Auto SS [place].plasma/Lithiu m.RBC (Bld) [Mass ratio] 0-3 /HPF Normal 0-3/HPF [facility] UA Auto SS Nitrite Ql (U) Positive *ABN* (01/27/22 5:52 PM) Invalid Interpretation Code Negative [facility] UA Auto SS pH (U) 8.0 *NA* (01/27/22 5:52 PM) Invalid Interpretation Code 5.0 - 9.0 [facility] UA Auto SS Protein (U) [Mass/Vol] Negative (01/27/22 5:52 PM) Normal Negative [facility] UA Auto SS Specific gravity (U) [Rel density] 1.015 *NA* (01/27/22 5:52 PM) Invalid Interpretation Code 1.005 - 1.030 [facility] UA Auto SS UA Spec Desc Random Urine (01/27/22 5:52 PM) Normal [facility] UA Auto SS Urobilinogen Qn (U) 1.9557606 {Polina'U}/dL Normal 0.0 - 1.0 EU/dL [facility] UA Auto SS WBC Auto Ql (U) Negative (01/27/22 5:52 PM) Normal Negative [facility] UA Auto SS WBC LM.HPF (Urine sed) [#/Area] 16-25 /HPF Invalid Interpretation Code 0-5/HPF [facility] UA Auto SS eGFRon 01-27-2022 GFR/1.73 sq M.predicted among blacks MDRD (S/P/Bld) [Vol rate/Area] mL/min/{1.73_m2} Normal >=59 [facility] Comment on above: Order Comment: Order added by Discern Expert. Result Comment: eGFR is race adjusted. AA=. Performed By: #### 2 [id number], [id number], 5165683, 5472238 ####[facility] [address] [place] [address] GFR/1.73 sq M.predicted among non-blacks MDRD (S/P/Bld) [Vol rate/Area] mL/min/{1.73_m2} Normal >=59 [facility] Comment on above: Order Comment: Order added by Discern Expert. Result Comment: [employer] ammon kidney disease could be indicated at eGFR's of less than 60 mL/min/1.73m2. Kidney failure is indicated at less than 15 mL/min/1.73m2. Performed By: #### 2 842865, [id number], 6842943, 6809885 ####[facility] [address] [place] [address] Coding Summary.on 01-04-2022 Coding Summary. [id number] Gh0b Ww+PGhlYWQ+BE1BUKOqV88pq AMiwO5BF2iPQC3MNFGQFPGGD W1QJU2wzHP1UFpvD1AavgYr EmykkKOfXK20IDn3UBV1oEff CMprgM4erVAqW3e6MxLrWW54 xQ15IVorBZSdCtS0VoUvimnu bWFy X0eaPuBkhWRsFaa+PHRhYmxl IHdpZHRoPScxMDAlJyBzdHls DD2zIp0eGKXdGXOenVatzXQn OiBj s1ikRBKrRRfyPP5egCvnN0Fw sWS0MXSxf3w4Yl01nSP+PHRk NKE7yFzqWMlde581PuNao8lx IDM3 oDEeGGedVJC7Y77lw4T5VIIe JXIeHLT5zEN6mN2yaDixbqvj G7MqdWFaJtF0IOA3zWUuxV1t bGln cylhiN1hKxy+F53ZMH0PNBUC UL4ROtl6E9OdLfoniZS+PC90 RUGsHZ81iTRmyDHks2dfeGp6 JzEw YVJfSQG8hUvsLXhvj7SbKIEo S26zwKTtx0R4AEPwgWtytCEd FhCdeRE9yU0sUBgjyocvd7yb dzsn Mhylh6vdzj88dU59Q21rMLyc ICDbIQU9HXDfWPVvoOzubm3e pD6vZo7+JMssv8uiq4wmxGt0 IjIw PQTpojElvBgmFBY5l6FnSk93 G9WcsZwas4LtQsj7vc85iHZp w2T0rXE2KRukKADabQ9kAPnp ZnQ6 IGOqHaLakC81zVBvGOwlAz0j kXtujBrwPE9hISRhbschPCVe dM6cAITysNOlwOggTE8oMCAj bjtm o362ClWwYEY1UTWvwECmI0Yg sF3wHnXvDQNyASLjB3MbuGSf SQftU855OYgiTjD9XYGutwUm Y2Fs HCRsnFjlEjQ4k7W0Oa7Rx1Lc aozvEWZ1JIjcDKJ4EnCkQeJx MrQ8N7SzJqk8BFKdfLxbYW9e J3Bh TRAtegledntyqWQ8OEMqXKZd rH42iOOdYFqbOy6xe1X7u410 GWGjWWKegA08Yu5yjGrdLDAt dCBU vQ1joqujx9ooqlmxBoRxUZTl JIy6GOe2XOKtnNwsZzMaHZW8 YfT4DOW8kFKvmZ7erEyaemml dG9w Oyc+R66mjM4sVBU0EKQ4uetr TMIrosPoYO76UT47U5UmZcrl dGFibGU+RLHbbgOyoVdaTZ9u YmFj i0czx5JjNBdtH2WrCFLmBQjd Eno1UYRiTJX8lUA3qS5sWOXv SThnz5X5mMY3N4DfosWgwn6j b2xs ZABgNInfH02ovRIco6G7OFJa sOQ3INYrfDkwDhYxxM04Wxu+ NPGzkSqla5ExEtzdt0hwo5ne dGg9 JnPqKAOtazKqyClxPEN7m5Nz Pc38T05vINvpUQLoNQEwIILl WEStbYayct0qbE9eMl1+PGNv bCB3 nKL3dL4yHHWoOuH0YKjhT187 FhFoqUCeHtjlq1ooi7wqbFa8 WeEgDQGtscBneMkqMFC5x4Sb Lz48 D62cHOckJXKdHXUxAWTzQSZs mOdhue7qlA3tKn5+HG5lb0kf yf15kU84jZK+FXWuZMF4zJuv PSdw RJLcqC7fXMlkPlC8DVFzKjRu tS93iYFuMAvoZu3onBfvjDjk MP1iJWDeyfqpv579VqVfw2du IDEw aMKmPZfoAMC5M72vz2G0UQLa ETXnGGP9mER8xG7ivNmvbsfr bGVmdDsgdmVydGljYWwtYWxp Z246 IHRvcDsnPlBhdGllbnQgTmFt NOv3L0WkAsv9ZVXzaEahCT3e uRRsPOmxVz6avWpbwUuqUD2r NTBp yclhi261KbMmm2wcGWFfpCHz WSehLFE3W52ok3E2RCHvSIDz JJP5pTI5zM9uqRmtlvxpmJJm dDsg ufJuaSqqLRwkHYgrC386NWLq cPqfZmTqjzNiFSEykJF5UN42 EL08dARwq3J7bRZ3B1VhYCVo bmct rykagNI4IXKqBSVhtR15Kr9n xTtbPw7qIBHeAVH3IGGfiPEi B7VcwK1sKtSzUUUoGWNdM3Zt eHQt HYuvY208MMtxOgL4EFUtwbSv C3NfBINxxHsyYiM1o5W8Wo2X M9B6QE95RQ33iGVnm9U8tSC5 J3Bh ACKdljelubwneUY9NIZhPYJo aJ24Dk1grJosXp1lDPJaMYJ2 TTDhyGAmG9NndT1iYdAeXRKg MDAw D1YsdWGtANmpF285NRonBrV0 IJJejkSeC8KdVRFzlDqcJhC0 j5Y5Ch3EWMm8WW74NW36rHZh c3R5 tFI4E3QvWFMwqkwedcmtbWB9 JXBtZSCawQ23Xh6dgVngVx9c UTNbWUW7PSIzyWYaL4MzwS1o OiAj CDNyLYDqF0KklHXzABinJ429 BZdsIeE3GJJjweGrU9TaVBOz aXdpOdB7a3A8Ll2ZWYKaQQ60 IFR5 rHB4XX05PL51F3EjFtmcjIEq bGU+PHRhYmxlIHdpZHRoPScx JEEkPjZkbWkoZQ5aGt2jFWMt LWNv dQkytCJpMsKfo5lnGDXbFOxb GC0mpHrlG7TyqHX8MHQgc6e2 Bc73G24dE1KtkAN+PGNvbCB3 aWR0 xD4tHxSlEmH1POkqK020EyEw wVSiAhiri0bst5bbxJj0WuC5 ZHSxieVwgQljWSG1t6ArJg84 Y29s IHdpZHRoPSIxNSUiIHZhbGln qz6ubK5eRh8+MAHfqRG6zCJ8 dX3rXxHeJnB0ASjlD422AdGj cCIv Dgoke5vcq5hshQm6VdSjXKQy cfQukPqhZSO0r4TiBq41K2Lk lTqsj2DtWsh7we37cSXzr0Z9 bGU9 N0ZzOEDjeomtnPDwqZvdMP8z YBSmthgcKJFozG6xQPPlY4g4 YyLsHlT2MAarZ1YfdtN0EMRh cHQg QJmaSIP5J16ss0W5MRIgZKHe ADV7gNN5lV7toRtrriieeQSa uWfoquVloOinHPgoBGwjA319 IHRv lVveSCRamP6oCGQmtGJohOpj XU1dEVAbmyntWixEY00SIMYn JKWMFQWBDB11IT11cDScw2A0 bGU9 C4NzOTVfiknhmsjsyOZ0VTLc RMTodE35wFTkDMwxIv0jc8M3 d510ZGAgWIQcpT48Mf4ghRfd MTBw kZWEuA4zmlpgx1jkivoiTfSt OABkOGq0KHk8QCDqiTlhXaRy PGJ8OpH8KRX1nEYyjY0ypCxi bjog kR8eAlz+MDgvMjkvMjAwMDwv dGQ+CREmQHQ0oOzjMVthMIWe bT2qCJJbT1i5XiZlKfP9HJdr O3Bh XNFtflvxYw00yU2yHfHbOzE4 NJskS4TsooN1JEXvoIGqATke RZT5J98ag9K2YWPcZIVgSRU9 dGV4 eY3uoZsgcycnhICsmGqdvtPp kOnyAZwxMCxaP230GBJirXmv MnSuJCbdMKVgFK07CB16kZEo c3R5 xUI6S0JpXQKeagtkkmuavUA7 QWPfXAUfdI36eCHwVZvbMm5t u9P3c635DZBiLMAhbG57Hg1r dDog YFTcdUONwX7symjtb6nlgjxn RwDcDUWuICv2YCm0EFWujYot BdJxKPD5NfU7PDV7vOSskP9z bGln gggrvD1rCaf+UhOjLTfzOU35 MU75hRYpn8Y8pTT7R6AoIUKv sgnvueovmDC6DGZbYSQchC47 cGFk UUdzYq6ov0N1e733LIWaBWXa vH49Np1kmDwaOQNbuSVVnB9h clggh3zmvmqkMiCkJLIzLRg7 ZXh0 BLRhbMrwWzDnRWD2DoO6OKG2 yEOusR5uhKrcbbzqhN3yMlf+ VG3gherawgQ0NI78HA68N8Pr Pjwv dGFibGU+PHRhYmxlIHdpZHRo IMshMYKqGwBqbVinZU2zIe0i FKIyQQOiiJqsxYGnCvDft6hq YXBz BCmzZJ3xyYgcF7TknIK9DQZc g3c8Aj70N03jJ8TljXC+PGNv qYF0fLD4vR2yRsNgHcD7PNrf Z249 OkJdlVWkMfogx8fcn8axfBo5 PwQeKMJbszArsEfsLIY9h1Pp Tc07Y81nLVynCENoXXQbURVm IHZh bHxyfk1jhF3lNc0+PGNvbCB3 wKG1fI3oJaRhIzC9FTxlP534 BfOjgDVcJwknN59fL2JgtQI+ PHRy Iaj3FNXhaKafFX4twIIpFZgo Gh0zPIM9UlDyCcXfWGpkT9Pk HMRorxzfddbvwAG9CPTpWTSt aW47 Ny4heLufYo8tFMLzPTB1JYKf tQFxY7QfbU1gShIdNMXeOFCx M7RnpQAnIGoeX269BRybAxS3 IHZl odZjO8WxJDCkwIunYtY1x6U9 Sy6HdZqieZRsBV4bRgYaQVm3 V2CbRes8LMLdtErdMJ7vmQVq ZGlu Vo1umIfmfRwoIY8wJSJeogqa y547ToOdf8xaQCHtyZUpPLii BMZ0O31cd6E5PTUsBCOmMQI8 dGV4 yN2tmNbubzlbeFJfwBrkanGb kNxbELazCRrxV881KDIlxWfe LgLZWqx0M5AhFxi3KXBykMve ZT0n oAMxVDjjVm2mqIhdpLjbGW6i SYZlwpwgf595GwAfk7hkOQIn vZNhRKrkCTI6K68my2U7HLHi MDAw VBG0xCZ8nM6nlBrqrpkfsEWd kNdrnaYzpKhvMZfkXZimM439 VRGtlFafXa5EAnz6M5VrEte0 ZCBz tRbrZJ1dwFGkWCcgXq1zrRue sUwcEC5tFQIopmeak073NyIc z5hpHKFkdNKsCGorWDC9H44c b3I6 FBRwGMQrHFB1wEL5hW5igRdd bjogbGVmdDsgdmVydGljYWwt CYuqZ509CBGuiUdfKlSshNKs Ojwv dGQ+JR64rp18H1XpFjrwSps8 OTTeMKM6qTV4eW6iOFOnSMux a3I7uXD4U1MaliYyoq1mn8cb YXBz ZTog (more content not included)... Normal [facility] Discharge Instructionson Discharge Instructions [id number] :127 Normal [facility] Auto Diffon 12-31-2021 Basophils/100 WBC (Bld) 1.0 % Normal 0.0-2.0 [facility] Comment on above: Order Comment: Order Added by Discern Expert. Performed By: #### 2 932023, 6349375, 1389308, 30820532, 9651492, 36841305, 89114672 ####[facility] [address] [place] [address] Basophils/Leukocytes Auto (Bld) [Pure # fraction] 0.1 E9/L Normal 0.0-0.2 [facility] Comment on above: Order Comment: Order Added by Discern Expert. Performed By: #### 2 768127, 1396632, 8086803, 66132698, 5474128, 74714090, 30936307 ####[facility] [address] [place] [address] Eosinophils/100 WBC (Bld) 4.0 % Normal 0.0-8.0 [facility] Comment on above: Order Comment: Order Added by Discern Expert. Performed By: #### 2 920228, 9439039, 5832346, 89621238, 4918199, 87472871, 78605406 ####[address] [place] [address] Eosinophils/Leukocyte s Auto (Bld) [Pure # fraction] 0.4 E9/L Normal 0.0-0.5 [facility] Comment on above: Order Comment: Order Added by Discern Expert. Performed By: #### 2 190865, 3947272, 0969954, 56867032, 3906553, 10789608, 96494359 ####[address] [place] [address] Lymphocytes/100 WBC (Bld) 35.3 % Normal 14.0-50.0 [facility] Comment on above: Order Comment: Order Added by Mckay Expert. Performed By: #### 2 578459, 4125048, 1111538, 70556076, 2385707, 46919729, 98713142 ####[address] [place] [address] Lymphocytes/Leukocyte s Auto (Bld) [Pure # fraction] 3.8 E9/L Normal 1.0-4.0 [facility] Comment on above: Order Comment: Order Added by Discern Expert. Performed By: #### 2 305757, 3228025, 1223996, 66373735, 4232637, 09160276, 47855746 ####[address] [place] [address] Monocytes/100 WBC (Bld) 9.3 % Normal 4.0-14.0 [facility] Comment on above: Order Comment: Order Added by Mckay Expert. Performed By: #### 2 550013, 7569245, 3256068, 06635497, 5870498, 59145703, 22785896 ####[address] [place] [address] Monocytes/Leukocytes Auto (Bld) [Pure # fraction] 1.0 E9/L Normal 0.2-1.0 [facility] Comment on above: Order Comment: Order Added by Discern Expert. Performed By: #### 2 235324, 5451437, 0107026, 78969705, 3586102, 37063320, 16142714 ####[facility] [address] [place] [address] Neutrophils/100 WBC (Bld) 50.4 % Normal 36.0-75.0 [facility] Comment on above: Order Comment: Order Added by Discern Expert. Performed By: #### 2 828068, 8991838, 7862911, 94278983, 3384022, 32049789, 67144315 ####[facility] [address] [place] [address] Neutrophils/Leukocyte s Auto (Bld) [Pure # fraction] 5.4 E9/L Normal 2.0-7.5 [facility] Comment on above: Order Comment: Order Added by Discern Expert. Performed By: #### 2 197417, 1551226, 2468914, 74441047, 0478149, 77391341, 66683563 ####[facility] [address] [place] [address] B hCG Qualon 12-31-2021 Beta hCG Ql Negative Normal [facility] Comment on above: Performed By: #### 2 913117, 2965170, 2257316, 68377511, 8601900, 39954326, 92763809 ####[facility] [address] [place] [address] BMPon 12-31-2021 Creatinine [Mass/Vol] 0.8 mg/dL Normal 0.5-1.3 [facility] Comment on above: Performed By: #### 2 009753, 5938160, 2358706, 33642957, 7756291, 30441744, 14844565 ####[facility] [address] [place] [address] Urea nitrogen [Mass/Vol] 14 mg/dL Normal 5-21 [facility] Comment on above: Performed By: #### 2 753159, 6404103, 2645116, 08135021, 3019425, 08801455, 79126994 ####[facility] [address] [place] [address] Urea nitrogen/Creatinine [Mass ratio] 18 No Units Normal 10-20 [facility] Comment on above: Performed By: #### 2 773998, 7304471, 3092229, 26710224, 7249203, 25962097, 72873228 ####[facility] [address] [place] [address] Anion gap [Moles/Vol] 11 mmol/L Normal 6-16 [facility] Comment on above: Performed By: #### 2 808667, 6722925, 3520940, 81253267, 1150480, 88984724, 97281994 ####[facility] [address] [place] [address] Calcium [Mass/Vol] 9.5 mg/dL Normal 8.9-11.1 [facility] Comment on above: Performed By: #### 2 450585, 8580773, 9780856, 50478032, 9593200, 31155650, 84496283 ####[facility] [address] [place] [address] Chloride [Moles/Vol] 105 mmol/L Normal 101-111 [facility] Comment on above: Performed By: #### 2 331736, 4204406, 9919648, 23067438, 7055271, 96768637, 99420731 ####[facility] [address] [place] [address] CO2 [Moles/Vol] 26 mmol/L Normal 21-31 [facility] Comment on above: Performed By: #### 2 713011, 9580618, 2613634, 29195810, 8298049, 41936125, 90663991 ####[facility] [address] [place] [address] Glucose [Mass/Vol] 81 mg/dL Normal 55-199 [facility] Comment on above: Result Comment: If t his glucose result represents a fasting glucose, interpretation should refer to the following reference range: 55-99 mg/dL Performed By: #### 2 059160, 6316457, 1490753, 93801213, 2467201, 54058883, 07197147 ####[facility] [address] [place] [address] Potassium [Moles/Vol] 3.7 mmol/L Normal 3.5-5.3 [facility] Comment on above: Performed By: #### 2 650972, 8046304, 8623439, 91738483, 8290360, 12645770, 88862806 ####[facility] [address] [place] [address] Sodium [Moles/Vol] 138 mmol/L Normal 135-145 [facility] Comment on above: Performed By: #### 2 290164, 0866666, 1875814, 36527624, 3346544, 16785687, 98465102 ####[facility] [address] [place] [address] CBC w/ Auto Diffon Erythrocyte distribution width (RBC) [Ratio] 13.7 % Normal 10.9-14.2 [facility] Comment on above: Performed By: #### 2 351971, 9311971, 5784226, 35314005, 1633220, 26148390, 85962736 ####[facility] [address] [place] [address] Hematocrit (Bld) [Volume fraction] 37.2 % Normal 34.0-46.0 [facility] Comment on above: Performed By: #### 2 550706, 0752808, 0822526, 25058309, 0272563, 93482390, 77922554 ####[facility] [address] [place] [address] Hemoglobin (Bld) [Mass/Vol] 12.4 g/dL Normal 12.0-16.0 [facility] Comment on above: Performed By: #### 2 061332, 5160385, 3337353, 53084895, 8092563, 38688311, 61505501 ####[facility] [address] [place] [address] MCH (RBC) [Entitic mass] 29.3 pg Normal 27.0-34.0 [facility] Comment on above: Performed By: #### 2 295202, 6000977, 4015653, 26079124, 1585040, 34474301, 71497240 ####[facility] [address] [place] [address] MCHC (RBC) [Mass/Vol] 33.4 g/dL Normal 31.4-36.0 [facility] Comment on above: Performed By: #### 2 379477, 6583242, 7321443, 07359353, 4464354, 76475725, 10552715 ####[address] [address] MCV (RBC) [Entitic vol] 87.8 fL Normal 80.0-100.0 [facility] Comment on above: Performed By: #### 2 941872, 7511188, 1492825, 60775336, 6499424, 70460273, 90490871 ####[address] [address] Platelet mean volume (Bld) [Entitic vol] 9.3 fL Normal 6.4-10.8 [facility] Comment on above: Performed By: #### 2 827803, 7159548, 5988622, 41934158, 2616596, 26615162, 40476825 ####[address] [place] [address] Platelets (Bld) [#/Vol] 339.0 E9/L Normal 150.0-500.0 [facility] Comment on above: Performed By: #### 2 856450, 4128901, 9134037, 19623602, 6020998, 70931050, 29970912 ####[address] [address] RBC (Bld) [#/Vol] 4.2 E12/L Low 4.3-5.9 [facility] Comment on above: Performed By: #### 2 361010, 4211177, 7734396, 01738048, 0136114, 72719933, 93307707 ####[facility] [address] [place] [address] WBC corrected for nucl RBC Auto (Bld) [#/Vol] 10.8 E9/L Normal 4.0-11.0 [facility] Comment on above: Performed By: #### 2 043045, 3763327, 6539582, 22953979, 0949109, 20993577, 86038835 ####[facility] [address] [place] [address] CHEMISTRYOrdered By: SYSTEM SYSTEM on 12-31-2021 Albumin [Mass/Vol] 4.2 g/dL Normal 3.3 - 5.0 gm/dL [facility] Albumin/Globulin [Mass ratio] 1.3 {ratio} Normal 1.1 - 2.2 [facility] ALP [Catalytic activity/Vol] 59 [iU]/d Normal 21 - 98 Int._Unit/L [facility] ALT No additional P-5'-P [Catalytic activity/Vol] 12 [iU]/d Normal 6 - 46 Int._Unit/L [facility] Anion gap [Moles/Vol] 11 mmol/L Normal 6 - 16 mEq/L [facility] AST [Catalytic activity/Vol] 16 [iU]/d Normal 5 - 43 Int._Unit/L [facility] Bilirubin [Mass/Vol] 0.5 mg/dL Normal 0.0 - 1 .1 mg/dL [facility] Bilirubin.direct [Mass/Vol] mg/dL Normal 0.1 - 0.4 mg/dL [facility] Bilirubin.indirect [Mass or moles/Vol] Unable to Calculate mg/dL Invalid Interpretation Code 0.1 - 0.9 mg/dL [facility] Calcium [Mass/Vol] 9.5 mg/dL Normal 8.9 - 11. 1 mg/dL [facility] Chloride [Moles/Vol] 105 mmol/L Normal 101 - 1 11 mmol/L [facility] CO2 [Moles/Vol] 26 mmol/L Normal 21 - 31 mmol/L [facility] Creatinine [Mass/Vol] 0.8 mg/dL Normal 0.5 - 1.3 mg/dL [facility] GFR/1.73 sq M.predicted among blacks MDRD (S/P/Bld) [Vol rate/Area] mL/min/1.73 m2 Normal >=59mL/min/1 .73 m2 [facility] Chem S GFR/1.73 sq M.predicted among non-blacks MDRD (S/P/Bld) [Vol rate/Area] mL/min/1.73 m2 Normal >=59mL/min/1 .73 m2 [facility] Chem S Globulin (S) [Mass/Vol] 3.2 g/dL Normal 1.4 - 4.0 gm/dL [facility] Glucose [Mass/Vol] 81 mg/dL Normal 55 - 199 mg/dL [facility] Potassium [Moles/Vol] 3.7 mmol/L Normal 3.5 - 5.3 mmol/L [facility] Protein [Mass/Vol] 7.4 g/dL Normal 6.0 - 7.8 gm/dL [facility] Sodium [Moles/Vol] 138 mmol/L Normal 135 - 145 mmol/L [facility] Troponin I.cardiac [Mass/Vol] pg/mL Low 10.10 - 27.10 pg/mL [facility] Urea nitrogen [Mass/Vol] 14 mg/dL Normal 5 - 21 mg/dL [facility] Urea nitrogen/Creatinine [Mass ratio] 18 mg/mg Normal 10 - 20 [facility] Consent for Treatmenton 12-22 Consent for Treatment [id number]#[id number]: 127 Normal [facility] ED Clinical Summaryon 2021 ED Clinical Summary (Inserted Image. Kristine ble to display) [address] [address] ED Clinical Summary Person Information Name: AIMEE REDDY[place] Age: 21 Years : 2000 Sex: Female Language: [place] PCP: Britt Aguilar MD Marital Status: Single Visit Id: Visit Reason: Headache; Medical screening exam; HAVING BLACKOUTS, NUMBNESS, VISION LOSS Speciality: Acuity: 3 Enc Type: Emergency Med Service: Emergency Arrival: 12/31/2021 18:32:31 Discharge: 12/31/2021 19:45:45 LOS: 000 01:13 Checkin: 12/31/2021 18:32:31 Checkout: 12/31/2021 19:45:45 Dispo Type: Home (Routine DC) EVENTS: Event Name Event Status Request Date/Time Start Date/Time Complete Date/Time Arrive Complete 12/31/2021 18:32:31 12/31/2021 18:32:31 12/31/2021 18:32:31 Document Home Meds Request 12/31/2021 18:32:31 Triage Complete 12/31/2021 18:32:31 12/31/2021 18:41:16 12/31/2021 18:41:16 Bed Assign Complete 12/31/2021 18:37:43 12/31/2021 18:37:43 12/31/2021 18:37:43 Dr Exam Complete 12/31/2021 18:37:43 12/31/2021 18:55:13 12/31/2021 18:55:13 RN Exam Complete 12/31/2021 18:37:43 12/31/2021 18:47:58 12/31/2021 18:47:58 EKG Complete 12/31/2021 18:45:56 12/31/2021 18:54:37 Pending Labs Complete 12/31/2021 18:45:56 12/31/2021 19:14:08 12/31/2021 19:23:13 Lab Complete 12/31/2021 18:45:56 12/31/2021 19:14:08 12/31/2021 19:23:13 Urine Collect Complete 12/31/2021 18:45:56 12/31/2021 19:23:13 Registration Complete 12/31/2021 18:47:19 12/31/2021 18:47:19 12/31/2021 18:47:19 Reg Complete Request 12/31/2021 18:47:19 Reg Bed Request Complete 12/31/2021 18:47:19 12/31/2021 18:47:19 12/31/2021 18:47:19 Pending Labs Complete 12/31/2021 18:54:41 12/31/2021 18:54:41 12/31/2021 19:15:31 Lab Complete 12/31/2021 18:54:41 12/31/2021 18:54:41 12/31/2021 19:15:31 Registration Complete 12/31/2021 18:55:13 12/31/2021 19:02:19 12/31/2021 19:02:19 Pending Labs Complete 12/31/2021 18:58:06 12/31/2021 18:58:06 12/31/2021 18:58:15 Lab Complete 12/31/2021 18:58:06 12/31/2021 18:58:06 12/31/2021 18:58:15 Discharge Complete 12/31/2021 19:27:19 12/31/2021 19:45:50 12/31/2021 19:45:50 Transfer Complete 12/31/2021 19:45:50 12/31/2021 19:45:50 12/31/2021 19:45:50 ADDRESS: [address] [place] [id number] [facility] NOTES: MEDICAL INFORMATION: Prescriptions Given: PATIENT EDUCATION INFORMATION: Instructions: Seizure, Adult, [id number] Follow up: With: Address: When: Tye Arora [address] [place] [address] Business (1) In 3 days 01/03/2022 With: Address: When: Britt Aguilar [address] [place] [address] Business (1) In 3 days DIAGNOSIS: Recurrent episodes of unresponsiveness Normal [facility] ED Note-Physicianon 01-01-20 ED Note-Physician Basic Information Time Seen: Ji Grimes DO 12/31/2021 18:55 Chief Complaint pt states for the past two days she believes she has had seizures. states her body goes numb snd tingles when this happens. has been seen by doctor for this, and cleared. pt states she feels fine now but has a headache.. states her seizures are her History of Present Illness HPI: Patient is a 21-year-old female was previously healthy presents the ED for concern of recurrent episodes of decreased awareness. Patient states that for her whole life she has been having intermittent episodes where she will have sudden onset of vision going dark and full body tingling and numbness and being unable to move. She states that this lasts 10 to 15 seconds before spontaneously resolving and she is immediately back to her baseline. She states that these have no warnings beforehand and have had no noticeable triggers. Sometimes she goes weeks and between episodes and sometimes it happens multiple times in 1 day. She states that she saw her primary care physician about this who was worried it was cardiac in nature and sent her to a copy chaser where she had a monitor and other testing done and was told it is not her heart. ROS: A 10 point review of systems is negative except as noted above. Physical exam: General: nontoxic appearing and in no distress HEENT: Mucous membranes moist Neuro: awake and alert. Renal nerves II through XII are intact. Gross motor and station all 4 extremities are intact. Neck: supple, trachea midline Card: Heart regular rate and rhythm no murmur Resp: Lungs clear to auscultation no wheeze or rhonchi Abd: Soft and nondistended. No tenderness with no rebound or guarding. Ext: No gross deformity or edema Physical Exam Vitals & Measurements T: 36.6 ?C(Oral) HR: 79(Peripheral) RR: 18 BP: 110/64 SpO2: 99% HT: 162.0 cm HT: 162 cm WT: 48.0 kg WT: 48 kg BMI: 18.29 Medical Decision Making She is well-appearing and in no distress. She is neurologically intact in the ED. Basic blood work and urinalysis were obtained and are unremarkable. At this time I feel she is safe for discharge as this has been a chronic issue for her entire life but I do believe she needs follow-up with neurology for further evaluation. I discussed that she should not drive or operate any heavy machinery until she is cleared by neurology. We will give her Dr. Arora's information to call tomorrow to schedule the soonest available appointment. Assessment/Plan Recurrent episodes of unresponsiveness (R41.89: Other symptoms and signs involving cognitive functions and awareness) Disposition Plan Discharge Prescription List Prescriptions No active prescription medications Follow-up With When Contact Information Tye Arora In 3 days 01/03/2022 EDT [address] [place] [address]- Business (1) Additional Instructions: Britt Aguilar In [address] [place] [address]- Business (1) Additional Instructions: Patient Education Seizure, Adult, [id number] Problem List/Past Medical History Ongoing No qualifying data Historical No qualifying data Medications Inpatient No active inpatient medications Home No active home medications Allergies No Known Allergies Social History Alcohol Substance Abuse Tobacco Lab Results WBC: 10.8 E9/L (12/31/21 18:51:00) RBC: 4.2 E12/L Low (12/31/21 18:51:00) HGB: 12.4 gm/dL (12/31/21 18:51:00) Hct: 37.2 % (12/31/21 18:51:00) MCV: 87.8 fL (12/31/21 18:51:00) MCH: 29.3 pg (12/31/21 18:51:00) MCHC: 33.4 gm/dL (12/31/21 18:51:00) RDW: 13.7 % (12/31/21 18:51:00) Platelet: 339 E9/L (12/31/21 18:51:00) MPV: 9.3 fL (12/31/21 18:51:00) Neutro Auto: 50.4 % (12/31/21 18:51:00) Lymph Auto: 35.3 % (12/31/21 18:51:00) [place] Auto: 9.3 % (12/31/21 18:51:00) Eos Auto: 4 % (12/31/21 18:51:00) Basophil Auto: 1 % (12/31/21 18:51:00) Neutro Absolute: 5.4 E9/L (12/31/21 18:51:00) Lymph Absolute: 3.8 E9/L (12/31/21 18:51:00) [place] Absolute: 1 E9/L (12/31/21 18:51:00) Eos Absolute: 0.4 E9/L (12/31/21 18:51:00) Basophil Absolute: 0.1 E9/L (12/31/21 18:51:00) Glucose Lvl: 81 mg/dL (12/31/21 18:51:00) BUN: 14 mg/dL (12/31/21 18:51:00) Creatinine: 0.8 mg/dL (12/31/21 18:51:00) eGFR: >60 (12/31/21 18:51:00) eGFR AA: >60 (12/31/21 18:51:00) BUN/Creat Ratio: 18 (12/31/21 18:51:00) Sodium Lvl: 138 mmol/L (12/31/21 18:51:00) Potassium Lvl: 3.7 mmol/L (12/31/21 18:51:00) Chloride: 105 mmol/L (12/31/21 18:51:00) CO2: 26 mmol/L (12/31/21 18:51:00) AGAP: 11 mEq/L (12/31/21 18:51:00) Calcium Lvl: 9.5 mg/dL (12/31/21 18:51:00) Alk Phos: 59 Int._Unit/L (12/31/21 18:51:00) ALT: 12 Int._Unit/L (12/31/21 18:51:00) AST: 16 Int._Unit/L (12/31/21 18:51:00) Total Protein: 7.4 gm/dL (12/31/21 18:51:00) Albumin Lvl: 4.2 gm/dL (12/31/21 18:51:00) Globulin: 3.2 gm/dL (12/31/21 18:51:00) A/G Ratio: 1.3 (12/31/21 18:51:00) Bili Total: 0.5 mg/dL (12/31/21 18 (more content not included)... Normal [facility] Comment on above: Result Comment: Elec tronically Signed By: Ji Grimes DO\.br\Date and Time Signed: 12/31/21 19:33 EDT ED Patient Education Noteon 12-31-2021 ED Patient Education Note Neurology Seizure, Adult A seizure is a sudden burst of abnormal electrical activity in the brain. Seizures usually last from 30 seconds to 2 minutes. They can cause many different symptoms. Usually, seizures are not harmful unless they last a long time. What are the causes? Common causes of this condition include: ? Fever or infection. ? Conditions that affect the brain, such as: ? A brain abnormality that you were born with. ? A brain or head injury. ? Bleeding in the brain. ? A tumor. ? Stroke. ? Brain disorders such as autism or cerebral palsy. ? Low blood sugar. ? Conditions that are passed from parent to child (are inherited). ? Problems with substances, such as: ? Having a reaction to a drug or a medicine. ? Suddenly stopping the use of a substance (withdrawal). In some cases, the cause may not be known. A person who has repeated seizures over time without a clear cause has a condition called epilepsy. What increases the risk? You are more likely to get this condition if you have: ? A family history of epilepsy. ? Had a seizure in the past. ? A brain disorder. ? A history of head injury, lack of oxygen at , or strokes. What are the signs or symptoms? There are many types of seizures. The symptoms vary depending on the type of seizure you have. Examples of symptoms during a seizure include: ? Shaking (convulsions). ? Stiffness in the body. ? Passing out (losing consciousness). ? Head nodding. ? Staring. ? Not responding to sound or touch. ? Loss of bladder control and bowel control. Some people have symptoms right before and right after a seizure happens. Symptoms before a seizure may include: ? Fear. ? Worry (anxiety). ? Feeling like you may vomit (nauseous). ? Feeling like the room is spinning (vertigo). ? Feeling like you saw or heard something before (d?j? vu). ? Odd tastes or smells. ? Changes in how you see. You may see flashing lights or spots. Symptoms after a seizure happens can include: ? Confusion. ? Sleepiness. ? Headache. ? Weakness on one side of the body. How is this treated? Most seizures will stop on their own in under 5 minutes. In these cases, no treatment is needed. Seizures that last longer than 5 minutes will usually need treatment. Treatment can include: ? Medicines given through an IV tube. ? Avoiding things that are known to cause your seizures. These can include medicines that you take for another condition. ? Medicines to treat epilepsy. ? Surgery to stop the seizures. This may be needed if medicines do not help. Follow these instructions at home: Medicines ? Take uqmt-tki-cnrrlrp and prescription medicines only as told by your doctor. ? Do not eat or drink anything that may keep your medicine from working, such as alcohol. Activity ? Do not do any activities that would be dangerous if you had another seizure, like driving or swimming. Wait until your doctor says it is safe for you to do them. ? If you live in the [place] ask your local DMV (department of Drive[employer]) when you can drive. ? Get plenty of rest. Teaching others Teach friends and family what to do when you have a seizure. They should: ? Lay you on the ground. ? Protect your head and body. ? Loosen any tight clothing around your neck. ? Turn you on your side. ? Not hold you down. ? Not put anything into your mouth. ? Know whether or not you need emergency care. ? Stay with you until you are better. General instructions ? Contact your doctor each time you have a seizure. ? Avoid anything that gives you seizures. ? Keep a seizure diary. Write down: ? What you think caused each seizure. ? What you remember about each seizure. ? Keep all follow-up visits as told by your doctor. This is important. Contact a doctor if: ? You have another seizure. ? You have seizures more often. ? There is any change in what happens during your seizures. ? You keep having seizures with treatment. ? You have symptoms of being sick or having an infection. Get help right away if: ? You have a seizure that: ? Lasts longer than 5 minutes. ? Is different than seizures you had before. ? Makes it harder to breathe. ? Happens after you hurt your head. ? You have any of these symptoms after a seizure: ? Not being able to speak. ? Not being able to use a part of your body. ? Confusion. ? A bad headache. ? You have two or more seizures in a row. ? You do not wake up right after a seizure. ? You get hurt during a seizure. These symptoms may be an emergency. Do not wait to see if the symptoms will go away. Get medical help right away. Call your local emergency services (911 in the [place] Do not drive yourself to the hospital. Summary ? Seizures usually last from 30 seconds to 2 minutes. Usually, they are not harmful unless they last a long time. ? Do not eat or drink anything that may keep your medicine f (more content not included)... Normal [facility] ED Patient Summaryon 022 ED Patient Summary (Inserted Image. Kristine ble to display) [address] [address] Patient Discharge Instructions Person Information Name: AIMEE REDDY Age: 21 Years Arrival Date: 12/31/2021 18:32:31 Discharge Diagnosis: Recurrent episodes of unresponsiveness Primary Care Physician: Britt Aguilar MD Provider Information Primary Provider: Ji Grmies DO [employer] Production:None The exam and treatment you received in the Emergency Department were for an urgent problem and are not intended as complete care. It is important that you follow up with a doctor, nurse practitioner, or physician?s financial legal assistant for ongoing care. If your symptoms become worse or you do not improve as expected and you are unable to reach your usual health care provider, you should return to the Emergency Department. We are available 24 hours a day. AIMEE REDDY has been given the following list of patient education materials, prescriptions and follow-up instructions: Follow-up Instructions: With: Address: When: Tye Arora [address] [place] [address] Business (1) In 3 days 01/03/2022 With: Address: When: [place] [address] YPlan (1) In 3 days In the event that this physician does not participate in your insurance network, please consult with your insurance company to find a nearby participating provider. Patient Education Materials: Seizure, Adult, Uwkl-kc-Jtpt A MESSAGE TO ALL PATIENTS REGARDING OPIOIDS PRESCRIPTION OPIOIDS: WHAT YOU NEED TO KNOW Prescription opioids can be used to help relieve jiozgudw-nb-kiykmm pain and are often prescribed following a surgery or injury, or for certain health conditions. These medications can be an important part of the treatment but also come with serious risks. It is important to work with your healthcare provider to make sure you are getting the safest, most effective care. WHAT ARE THE RISKS AND SIDE EFFECTS OF OPIOID USE? Prescription opioids carry serious risks of addiction and overdose, especially with prolonged use. An opioid overdose, often marked by slowed breathing, can cause sudden . The use of prescription opioids can have a number of side effects as well, even when taken as directed: ? Tolerance?meaning you might need to take more of the medication for the same pain relief ? Physical dependence?meaning you have symptoms of withdrawal when a medication is stopped ? Increased sensitivity to pain ? Constipation ? Nausea, vomiting, and dry mouth ? Sleepiness and dizziness ? Confusion ? Depression ? Low levels of testosterone that can result in lower sex drive, energy, and strength ? Itching and sweating RISKS ARE GREATER WITH: ? History of drug misuse, substance use disorder, or overdose ? Mental health conditions (such as depression or anxiety) ? Sleep apnea ? Older age (65 years and older) ? Avoid alcohol while taking prescription opioids. Also, unless specifically advised by your health care provider, medications to avoid include: ? Benzodiazepines (such as Xanax or Valium) ? Muscle relaxants (such as Soma or Flexeril) ? Hypnotics (such as Ambien or Lunesta) ? Other prescription opioids KNOW YOUR OPTIONS Talk to your health care provider about ways to manage your pain that don?t involve prescription opioids. Some of these options may actually work better and have fewer risks and side effects. Options may include: ? Pain relievers such as acetaminophen, ibuprofen, and naproxen ? Some medication that are also used for depression or seizures ? Physical therapy and exercise ? Cognitive behavioral therapy, a psychological, goal-directed approach, in which patients learn how to modify physical, behavioral, and emotional triggers of pain and stress. IF YOU ARE PRESCRIBED OPIOIDS FOR PAIN: ? Never take opioids in greater amounts or more often than prescribed. ? Follow up with your primary health care provider. o Work together to create a plan on how to manage your pain. o Talk about ways to help manage your pain that don?t involve prescription opioids. o Talk about any and all concerns and side effects. ? Help prevent misuse and abuse o Never sell or share prescription opioids. o Never use another person?s prescription opioids. ? Store prescription opioids in a secure place and out of reach of others (this may include visitors, children, friends, and family). ? Safely dispose of unused prescription opioids: Find your community drug take-back program or your pharmacy mail-back program, or flush them down the toilet, following guidance from the Food and Drug Administration (www.fda.gov/Drugs/Resou rcesForYou). ? Visit www.cdc.gov/drugoverdose to learn about the risks of opioids abuse and overdose. ? If you believe you may be struggling with addiction, tell your (more content not included)... Normal [facility] HEMATOLOGYOrdered By: SYSTEM SYSTEM on 12-31-2021 Basophils/100 WBC (Bld) 1.0 % Normal 0.0 - 2.0 % [facility] HemeAutoSS Basophils/Leukocytes Auto (Bld) [Pure # fraction] 0.1 E9/L Normal 0.0 - 0.2 E9/L [facility] HemeAutoSS Eosinophils/100 WBC (Bld) 4.0 % Normal 0.0 - 8.0 % [facility] HemeAutoSS Eosinophils/Leukocyte s Auto (Bld) [Pure # fraction] 0.4 E9/L Normal 0.0 - 0.5 E9/L [facility] HemeAutoSS Lymphocytes/100 WBC (Bld) 35.3 % Normal 14.0 - 50.0 % [facility] HemeAutoSS Lymphocytes/Leukocyte s Auto (Bld) [Pure # fraction] 3.8 E9/L Normal 1.0 - 4.0 E9/L [facility] HemeAutoSS Monocytes/100 WBC (Bld) 9.3 % Normal 4.0 - 14.0 % [facility] HemeAutoSS Monocytes/Leukocytes Auto (Bld) [Pure # fraction] 1.0 E9/L Normal 0.2 - 1.0 E9/L [facility] HemeAutoSS Neutrophils/100 WBC (Bld) 50.4 % Normal 36.0 - 75.0 % [facility] HemeAutoSS Neutrophils/Leukocyte s Auto (Bld) [Pure # fraction] 5.4 E9/L Normal 2.0 - 7.5 E9/L [facility] HemeAutoSS HEMATOLOGYOrdered By: Donnie Lim on 12-31-2021 Erythrocyte distribution width (RBC) [Ratio] 13.7 % Normal 10.9 - 14.2 % [facility] HemeAutoSS Hematocrit (Bld) [Volume fraction] 37.2 % Normal 34.0 - 46.0 % [facility] HemeAutoSS Hemoglobin (Bld) [Mass/Vol] 12.4 g/dL Normal 12.0 - 16.0 gm/dL [facility] HemeAutoSS MCH (RBC) [Entitic mass] 29.3 pg Normal 27.0 - 34.0 pg [facility] HemeAutoSS MCHC (RBC) [Mass/Vol] 33.4 g/dL Normal 31.4 - 36.0 gm/dL [facility] HemeAutoSS MCV (RBC) [Entitic vol] 87.8 fL Normal 80.0 - 100.0 fL [facility] HemeAutoSS Platelet mean volume (Bld) [Entitic vol] 9.3 fL Normal 6.4 - 10.8 fL [facility] HemeAutoSS Platelets (Bld) [#/Vol] 339.0 E9/L Normal 150.0 - 500.0 E9/L [facility] HemeAutoSS RBC (Bld) [#/Vol] 4.2 E12/L Low 4.3 - 5.9 E12/L [facility] HemeAutoSS WBC corrected for nucl RBC Auto (Bld) [#/Vol] 10.8 E9/L Normal 4.0 - 11.0 E9/L [facility] HemeAutoSS Hep Func Panelon 12-31-2021 Bilirubin.indirect [Mass or moles/Vol] UTC Abnormal 0.1-0.9 [facility] Comment on above: Result Comment: Resu lt verified by Discern Rule. Performed result UTC (Unable to Calculate) was sent as an Alpha code due the inability to calculate a valid numeric value. Performed By: #### 2 417014, 2335769, 9354276, 09507758, 8109700, 65164497, 78461748 ####[facility] [address] [place] [address] Albumin [Mass/Vol] 4.2 g/dL Normal 3.3-5.0 [facility] Comment on above: Performed By: #### 2 149479, 4121994, 2547714, 38975740, 7470162, 15668956, 98349742 ####[facility] [address] [place] [address] Albumin/Globulin (S) [Mass conc ratio] 1.3 Normal 1.1-2.2 [facility] Comment on above: Performed By: #### 2 364484, 3624555, 6360717, 49314646, 9977274, 90409620, 09437042 ####[facility] [address] [place] [address] ALP [Catalytic activity/Vol] 59 Int._Unit/L Normal 21-98 [facility] Comment on above: Performed By: #### 2 005871, 1114669, 1363353, 97914254, 8974724, 87450425, 34052462 ####[facility] [address] [place] [address] ALT No additional P-5'-P [Catalytic activity/Vol] 12 Int._Unit/L Normal 6-46 [facility] Comment on above: Performed By: #### 2 611923, 4500928, 6702439, 93923057, 6708693, 23654003, 37444223 ####[facility] [address] [place] [address] AST [Catalytic activity/Vol] 16 Int._Unit/L Normal 5-43 [facility] Comment on above: Performed By: #### 2 001046, 1293765, 6258915, 51346665, 4857268, 51586135, 68209503 ####[facility] [address] [place] [address] Bilirubin [Mass/Vol] 0.5 mg/dL Normal 0.0-1.1 [facility] Comment on above: Performed By: #### 2 075473, 4854896, 5298338, 54887782, 8818058, 40938673, 26857291 ####[facility] [address] [place] [address] Bilirubin.direct [Mass/Vol] mg/dL Normal 0.1-0.4 [facility] Comment on above: Performed By: #### 2 986176, 5403173, 9529978, 82340453, 9502341, 84903244, 35422077 ####[facility] [address] [place] [address] Globulin (S) [Mass/Vol] 3.2 g/dL Normal 1.4-4.0 [facility] Comment on above: Performed By: #### 2 928375, 0128958, 8980010, 16767047, 2844711, 34880795, 05919399 ####[facility] [address] [place] [address] Protein [Mass/Vol] 7.4 g/dL Normal 6.0-7.8 [facility] Comment on above: Performed By: #### 2 330791, 1100977, 3802110, 60225078, 1304727, 81701016, 44510186 ####[facility] [address] [place] [address] SEROLOGYOrdered By: Lisbeth Corrigan lps on 12-31-2021 Beta hCG Ql Negative (12/31/21 6:51 PM) Normal [facility] Man Sero Troponin 0 Hr.on 12-31-2021 Troponin I.cardiac [Mass/Vol] ng/mL Low 10.10-27.10 [facility] Comment on above: Result Comment: The 95% CI (Confidence Interval) PPV (Positive Predictive Value) for myocardial infarction in females is 38 pg/mL, in males 51 pg/mL. The results should be used in conjunction with clinical conditions of myocardial infarction. (Access High Sensitivity Troponin I Instructions For Use, Rohini Dorado, January 2018) Performed By: #### 2 498079, 7948718, 0830625, 62184865, 5893539, 51380557, 90190443 ####[facility] [address] [place] [address] UA With Cult Reflexon 2021 Bilirubin Ql (U) Negative Normal Negative [facility] Comment on above: Performed By: #### 1 5893481 ####[place] [address] [address] Clarity (U) CLEAR Normal Clear [facility] Comment on above: Performed By: #### 1 6909933 ####[address] [address] Color (U) YELLOW Normal Yellow [facility] Comment on above: Performed By: #### 1 8656470 ####[address] [address] Epithelial cells.squamous LM.HPF (Urine sed) [#/Area] 0-2 Normal 0-2 [facility] Comment on above: Performed By: #### 1 3729537 ####[address] [address] Glucose Test strip (U) [Mass/Vol] Negative Normal Negative [facility] Comment on above: Performed By: #### 1 8439116 ####[address] [address] Hemoglobin Ql (U) Negative Normal Negative [facility] Comment on above: Performed By: #### 1 7998911 ####[address] [address] Ketones (U) [Mass/Vol] Negative Normal Negative [facility] Comment on above: Performed By: #### 1 4867352 ####[address] [address] [place].plasma/Lithiu m.RBC (Bld) [Mass ratio] 0-3 Normal 0-3 [facility] Comment on above: Performed By: #### 1 3547372 ####[address] [address] Nitrite Ql (U) Negative Normal Negative [facility] Comment on above: Performed By: #### 1 6027346 ####[address] [address] pH (U) 6.0 [pH] Invalid Interpretation Code 5.0-9.0 [facility] Comment on above: Performed By: #### 1 9868068 ####[facility] [address] [place] [address] Protein (U) [Mass/Vol] Negative Normal Negative [facility] Comment on above: Performed By: #### 1 2994034 ####[address] [address] Specific gravity (U) [Rel density] 1.015 Invalid Interpretation Code 1.005-1.030 [facility] Comment on above: Performed By: #### 1 5617891 ####[address] [address] Type of Urine collection method Clean Catch Normal [facility] Comment on above: Performed By: #### 1 9107382 ####[address] [address] Urobilinogen Qn (U) 0.2 {Polina'U}/dL Normal 0.0-1.0 [facility] Comment on above: Performed By: #### 1 4439610 ####[facility] [address] [place] [address] WBC Auto Ql (U) Negative Normal Negative [facility] Comment on above: Performed By: #### 1 8526999 ####[address] [address] WBC LM.HPF (Urine sed) [#/Area] 0-5 Normal 0-5 [facility] Comment on above: Performed By: #### 1 6791431 ####[facility] [address] [place] [address] URINALYSISOrdered By: Lisbeth quan on 12-31-2021 Bilirubin Ql (U) Negative (12/31/21 7:14 PM) Normal Negative [facility] UA Auto SS Clarity (U) Clear (12/31/21 7:14 PM) Normal Clear [facility] UA Auto SS Color (U) Yellow (12/31/21 7:14 PM) Normal Yellow [facility] UA Auto SS Epithelial cells.squamous LM.HPF (Urine sed) [#/Area] 0-2 /HPF Normal 0-2/HPF [facility] UA Aut o SS Glucose Test strip (U) [Mass/Vol] Negative (12/31/21 7:14 PM) Normal Negative [facility] UA Auto SS Hemoglobin Ql (U) Negative (12/31/21 7:14 PM) Normal Negative [facility] UA Auto SS Ketones (U) [Mass/Vol] Negative (12/31/21 7:14 PM) Normal Negative [facility] UA Auto SS [place].plasma/Lithiu m.RBC (Bld) [Mass ratio] 0-3 /HPF Normal 0-3/HPF [facility] UA Auto SS Nitrite Ql (U) Negative (12/31/21 7:14 PM) Normal Negative [facility] UA Auto SS pH (U) 6.0 *NA* (12/31/21 7:14 PM) Invalid Interpretation Code 5.0 - 9.0 [facility] UA Auto SS Protein (U) [Mass/Vol] Negative (12/31/21 7:14 PM) Normal Negative [facility] UA Auto SS Specific gravity (U) [Rel density] 1.015 *NA* (12/31/21 7:14 PM) Invalid Interpretation Code 1.005 - 1.030 [facility] UA Auto SS UA Spec Desc Clean Catch (12/31/21 7:14 PM) Normal [facility] UA Auto SS Urobilinogen Qn (U) 0.3722962 {Polina'U}/dL Normal 0.0 - 1.0 EU/dL [facility] UA Auto SS WBC Auto Ql (U) Negative (12/31/21 7:14 PM) Normal Negative [facility] UA Auto SS WBC LM.HPF (Urine sed) [#/Area] 0-5 /HPF Normal 0-5/HPF [facility] UA Auto SS eGFRon 12-31-2021 GFR/1.73 sq M.predicted among blacks MDRD (S/P/Bld) [Vol rate/Area] mL/min/{1.73_m2} Normal >=59 [facility] Comment on above: Order Comment: Order added by Discern Expert. Result Comment: eGFR is race adjusted. AA=. Performed By: #### 2 544044, 6086354, 7944095, 02619248, 4529080, 15167926, 97853120 ####[facility] [address] [place] [address] GFR/1.73 sq M.predicted among non-blacks MDRD (S/P/Bld) [Vol rate/Area] mL/min/{1.73_m2} Normal >=59 [facility] Comment on above: Order Comment: Order added by Discern Expert. Result Comment: [employer] Worker ammon kidney disease could be indicated at eGFR's of less than 60 mL/min/1.73m2. Kidney failure is indicated at less than 15 mL/min/1.73m2. Performed By: #### 2 257638, 4132522, 0035160, 52219882, 7187967, 64575068, 53003100 ####[facility] [address] [place] [address] CBCon 11-06-2020 Erythrocyte distribution width (RBC) [Ratio] 13.1 % Normal 11.5 - 14.5 [facility] Comment on above: Performed By: #### C BC #### [address] [id number] Hematocrit (Bld) [Volume fraction] 36.6 % Normal 36.0 - 46.0 [facility] Comment on above: Performed By: #### C BC #### [address] [id number] Hemoglobin (Bld) [Mass/Vol] 11.9 g/dL Low 12.0 - 16.0 [facility] Comment on above: Performed By: #### C BC #### [address] [id number] MCHC (RBC) [Mass/Vol] 32.5 g/dL Normal 32.0 - 36.0 [facility] Comment on above: Performed By: #### C BC #### [address] [id number] MCV (RBC) [Entitic vol] 92 fL Normal 80 - 100 [facility] Comment on above: Performed By: #### C BC #### [address] [id number] RBC 4.00 x10E12/L Normal 4.00 - 5.20 [facility] Comment on above: Performed By: #### C BC #### [address] [id number] WBC (Bld) [#/Vol] 14.4 10*3/uL High 4.4 - 11.3 [facility] Comment on above: Performed By: #### C BC #### [address] [id number] Platelets (Bld) [#/Vol] 368 10*3/uL Normal 150 - 450 [facility] Comment on above: Performed By: #### C BC #### [address] [id number] COMPREHENSIVE PANELon 2020 Albumin [Mass/Vol] 4.4 g/dL Normal 3.4 - 5.0 [facility] Comment on above: Performed By: #### C MP #### [address] [id number] ALP [Catalytic activity/Vol] 69 U/L Normal 33 - 110 [facility] Comment on above: Performed By: #### C MP #### [address] [id number] ALT [Catalytic activity/Vol] 10 U/L Normal 7 - 45 [facility] Comment on above: Result Comment: Radha ents treated with Sulfasalazine may generate falsely decreased results for ALT. Performed By: #### C MP #### [address] [id number] Anion gap [Moles/Vol] 12 mmol/L Normal 10 - 20 [facility] Comment on above: Performed By: #### C MP #### [address] [id number] AST [Catalytic activity/Vol] 13 U/L Normal 9 - 39 [facility] Comment on above: Performed By: #### C MP #### [address] [id number] Bilirubin [Mass/Vol] 0.4 mg/dL Normal 0.0 - 1.2 [facility] Comment on above: Performed By: #### C MP #### [address] [id number] Calcium [Mass/Vol] 9.5 mg/dL Normal 8.6 - 10.3 [facility] Comment on above: Performed By: #### C MP #### [address] [id number] Chloride [Moles/Vol] 104 mmol/L Normal 98 - 107 [facility] Comment on above: Performed By: #### C MP #### [address] [id number] Creatinine [Mass/Vol] 0.54 mg/dL Normal 0.50 - 1.05 [facility] Comment on above: Performed By: #### C MP #### [address] [id number] GFR- AM. >60 Normal >60 [facility] Comment on above: Result Comment: CALC ULATIONS OF ESTIMATED GFR ARE PERFORMED USING THE MDRD STUDY EQUATION FOR THE IDMS-TRACEABLE CREATININE METHODS. CLIN CHEM 2007;53:766-72 Performed By: #### C MP #### [address] [id number] GFR-NON AM. >60 Normal >60 [facility] Comment on above: Performed By: #### C MP #### [address] [id number] Glucose [Mass/Vol] 89 mg/dL Normal 74 - 99 [facility] Comment on above: Performed By: #### C MP #### [address] 716929295 HCO3 (Bld) [Moles/Vol] 25 mmol/L Normal 21 - 32 [facility] Comment on above: Performed By: #### C MP #### [address] [id number] Potassium [Moles/Vol] 3.3 mmol/L Low 3.5 - 5.3 [facility] Comment on above: Performed By: #### C MP #### [address] [id number] Protein [Mass/Vol] 7.2 g/dL Normal 6.4 - 8.2 [facility] Comment on above: Performed By: #### C MP #### [address] [id number] Sodium [Moles/Vol] 138 mmol/L Normal 136 - 145 [facility] Comment on above: Performed By: #### C MP #### [address] [id number] Urea nitrogen [Mass/Vol] 13 mg/dL Normal 6 - 23 [facility] Comment on above: Performed By: #### C MP #### [address] [id number] HCG,URINEon 11-06-2020 Beta HCG ( test) Ql (U) Negative Normal Negative [facility] Comment on above: Performed By: #### H CGU #### [address] [id number] LIPASEon 11-06-2020 Lipase [Catalytic activity/Vol] 19 U/L Normal 9 - 82 [facility] Comment on above: Result Comment: Adriana puncture immediately after or during the administration of Metamizole may lead to falsely low results. Testing should be performed immediately prior to Metamizole dosing. O-wyphiy-g-benzoquinone imine (metabolite of Acetaminophen) will generate erroneously low results in samples for patients that have taken toxic doses of acetaminophen. Performed By: #### L IPAS #### [address] [id number] Provider Note - ED v2on 05- Provider Note - ED v2 Provider Note - ED v2: Chart Review: ED NOTES ED NOTES: Patient is a 20-year-old female presenting to the ER with complaint of abdominal pain and urinary frequency. Patient states that for the past 3 days she has had epigastric abdominal pain radiates into the bilateral flanks. Patient states it feels similar to previous episodes where she had cystitis and pyelonephritis. Patient states last episode occurred in 2019. Patient admits urinary frequency, urgency and dysuria. Denies hematuria. Patient states that she is also had epigastric abdominal pain. Patient describes the pain as crampy in nature. Patient admits nausea but denies any episodes of emesis. Last bowel movement was earlier today which patient states was normal. Patient is passing gas. Patient is tolerating p.o. solids and liquids without difficulty. Patient denies any concern for STDs. No new sexual partners. Denies any vaginal bleeding or vaginal discharge. Denies any pain with intercourse.. Patient's last menstrual period occurred first week of September. Denies any drug or alcohol use. Denies any recent traveling or sick contacts. Denies any fever, chills, chest pain, shortness of breath, cough, black or bloody stools, constipation, diarrhea, dizziness, weakness, numbness, tingling, paresthesias, lightheadedness, syncope, back pain, night sweats, weight loss. PMHx: denies PSHx: denies ALL: NKDA SocHx: denies smoking, IDU, etoh FamHx: reviewed, non-contributory HISTORY OF PRESENTING ILLNESS AIMEE is a 20 year old Female and was seen by me at 05-Nov-2020 23:10 for a chief complaint of urinary symptoms ( for the last three days kidney pain , dizziness, hurts to pee and I pee a lot )(1). Triage Information: Most recent Vital Sign Value Date Temp (F): 97.3 11-05-2020 22:42 Temp (C): 36.3 11-05-2020 22:42 Heart Rate (beats/min): 75 11-05-2020 22:42 Respirations (breaths/min): 16 11-05-2020 22:42 SpO2 (%): 100 11-05-2020 22:42 BP Systolic (mm Hg): 114 11-05-2020 22:42 BP Diastolic (mm Hg): 70 11-05-2020 22:42 PAST MEDICAL HISTORY ATTESTATION: I have reviewed and confirmed nurse's/medic's notes for patient's medications, allergies, and medical, surgical, family and social history ALLERGIES/INTOLERANCES: No Known Allergies HEALTH HISTORY: No documented data. 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) Is : no(1) REVIEW OF SYSTEMS GASTROINTESTINAL: POSITIVE for: abdominal pain and nausea; GENITOURINARY: POSITIVE for: dysuria, frequency and urgency; All other systems reviewed and are negative RESULTS/VITAL SIGNS RESULTS: Recent Lab Results: I have reviewed these laboratory results: Complete Blood Count 05-Nov-2020 23:55:00 ResultValue White Blood Cell Count 14.4 H Red Blood Cell Count 4.00 HGB 11.9 L HCT 36.6 MCV 92 MCHC 32.5 PLT 368 RDW-CV 13.1 Comprehensive Metabolic Panel 05-Nov-2020 23:55:00 ResultValue Glucose, Serum 89 NA 138 K 3.3 L CL 104 Bicarbonate, Serum 25 Anion Gap, Serum 12 BUN 13 CREAT 0.54 GFR-Non >60 GFR- >60 Calcium, Serum 9.5 ALB 4.4 ALKP 69 T Pro 7.2 T Bili 0.4 Alanine Aminotransferase, Serum 10 Aspartate Transaminase, Serum 13 Lipase, Serum 05-Nov-2020 23:55:00 ResultValue Lipase, Serum 19 Urine Test 05-Nov-2020 23:35:00 ResultValue HCG, Urine NEGATIVE Urinalysis with Culture if Indicated 05-Nov-2020 23:01:00 ResultValue Color, Urine COLORLESS Reference Range: STRAW,YELLOW Appearance, Urine CLEAR Specific [place], Urine 1.005 pH, Urine 6.0 Protein, Urine NEGATIVE Glucose, Urine NEGATIVE Blood, Urine NEGATIVE Ketones, Urine 5 (TRACE) A Bilirubin, Urine NEGATIVE Urobilinogen, Urine <2.0 Nitrite, Urine NEGATIVE Leukocyte Esterase, Urine NEGATIVE VITAL SIGNS: T PRBP SpO2O2(LPM) %FiO2 Method 06-Nov-2020 00:56:[id number] 98 05-Nov-2020 22:42:[id number] 100 room air, no respiratory support PHYSICAL EXAM CONSTITUTIONAL: Well appearing, well nourished, awake, alert, oriented to person, place, time/situation and in no apparent distress. HENMT: Airway patent, ears with clear tympanic membranes bilaterally. Nasal mucosa clear. Mouth with normal mucosa. Throat has no vesicles, no oropharyngeal exudates and uvula is midline. EYES: Clear bilaterally, pupils equal, round and reactive to light. Sclera clear. CARDIOVASCULAR: (more content not included)... Normal [facility] Triage - EDon 11-06-2020 Triage - ED Quick Triage: Are You no Have You Given In The Last 6 Weeksno Are You Currently Breastfeedingno Chart Review: PRIMARY ASSESSMENT ABCD Normal Findings: airway open and patent, breathing normal, circulation normal and alert and oriented ARRIVAL INFORMATION Means of Arrival: Ambulatory Mode of Arrival: private vehicle Arrival From: home Accompanied By: self Language: Spoken Language Preferred: [place] Reading Language Preferred: [place] Resource Specialist Teacher Requested: no material distributor was requested CHIEF COMPLAINT AIMEE REDDY is a Female patient with a chief complaint of urinary symptoms ( for the last three days kidney pain , dizziness, hurts to pee and I pee a lot ). Onset of the Complaint: 05-Nov-2020 22:43 Triage Date/Time: 05-Nov-2020 22:42 RUDI: 3V Pain location: low back pain Vital Signs: Temperature: 97.3F ( 36.3C) Blood Pressure: 114/70 Mean: Heart Rate: 75 Respiratory Rate: 16 Pulse Oximetry: 100% on room air, no respiratory support. Height: 5 feet 4 inches. 162.5 CM Weight: 110.2 pounds. Calculated 50.0 kg. (stated) Calculated BMI (kg/m2): 18.934 Calculated BSA (m2) 1.50 [place] Coma Scale: Best Eye Response: (E4) spontaneous Best Motor Response: (M6) obeys commands Best Verbal Response: (V5) oriented [place] Score: 15 Cough lasting greater than 3 weeks: no Patient immunocompromised related to: N/A Allergies: no Last menstrual period: 03-Oct-2020 Patient has homicidal thoughts: no Risk Screens Suicide Risk Screen In the Past Month: Have you wished you were or wished you could go to sleep and not wake up no In the Past Month: Have you had any actual thoughts of killing yourself no In Your Lifetime: Have you ever done anything, started to do anything, or prepared to do anything to end your life no Haque Fall Scale Screening Has the patient fallen before (or is the patient in the ED as a result of a fall) has not had a fall Does the patient have an impaired gait does not have impaired gait Is the patient cognitively impaired not cognitively impaired Interventions: Haque Fall Interventions: LOW INTERVENTIONS: *patient oriented to surroundings and call system, * patient/family falls education completed and documented, *patients fall status communicated during bedside handoff, *whiteboard updated, *mode of toileting discussed with patient, *bed in low position with brakes locked, *call light in reach, * non-skid footwear PAST MEDICAL HISTORY Immunization History: Last Known Tetanus Immunization: Unknown TRAVEL HISTORY Travel History Coronavirus Screening: no exposure or symptoms Travel Exposure History: NO travel to International locations in the past 30 days PAIN Pain Scale Used: RIKI Past Medical History: Past Medical History Reviewedyes SPLENECTOMY: Past Surgical History, Active Electronic Signatures: Joel Singer (CLIN COOR) (Signed 05-Nov-2020 22:49) Authored: Quick Triage Kathrin Perera (STAFF N) (Signed 05-Nov-2020 22:45) Entered: Risk Screens, Pain, Arrival, ABCD, Immunizations, Travel History, Chart Review, Past Medical History Authored: Quick Triage, Risk Screens, Pain, Arrival, ABCD, Immunizations, Travel History, Chart Review, Past Medical History Last Updated: 05-Nov-2020 22:49 by Joel Singer (CLIN COOR) Normal [facility] URINALYSIS WITH CULTURE IF I NDICATEDon 11-06-2020 Appearance (U) CLEAR Normal CLEAR [facility] Comment on above: Performed By: #### U ARFX #### [address] [id number] Bilirubin Ql (U) Negative Normal NEGATIVE [facility] Comment on above: Performed By: #### U ARFX #### [address] [phone] Color (U) COLORLESS Normal STRAW,YELLOW [facility] Comment on above: Performed By: #### U ARFX #### [address] [id number] Glucose Ql (U) Negative Normal NEGATIVE [facility] Comment on above: Performed By: #### U ARFX #### [address] [phone] Hemoglobin Ql (U) Negative Normal NEGATIVE [facility] Comment on above: Performed By: #### U ARFX #### [address] [id number] Ketones Ql (U) 5 (TRACE) Abnormal NEGATIVE [facility] Comment on above: Performed By: #### U ARFX #### [address] [id number] Leukocyte esterase Test strip Ql (U) Negative Normal NEGATIVE [facility] Comment on above: Performed By: #### U ARFX #### [address] [id number] Nitrite Ql (U) Negative Normal NEGATIVE [facility] Comment on above: Performed By: #### U ARFX #### [address] [phone] pH (U) 6.0 [pH] Normal 5.0 - 8.0 [facility] Comment on above: Performed By: #### U ARFX #### [address] [id number] Protein Ql (U) Negative Normal NEGATIVE [facility] Comment on above: Performed By: #### U ARFX #### [address] [phone] Specific gravity (U) [Rel density] 1.005 Normal 1.005 - 1.035 [facility] Comment on above: Performed By: #### U ARFX #### [address] [phone] Urobilinogen (U) [Mass/Vol] mg/dL Normal 0.0 - 1.9 [facility] Comment on above: Performed By: #### U ARFX #### [facility] [address] [place], [place] [phone] BUNon 02-05-2020 Urea nitrogen [Mass/Vol] 11 mg/dL 8 - 25 mg/dL [facility] Creatinine, serumon 02-05-20 20 Creatinine [Mass/Vol] 0.54 mg/dL 0.40 - 1.10 [facility] GFR/1.73 sq M predicted among non-blacks MDRD (S/P/Bld) [Vol rate/Area] The eGFR should be used for monitoring renal function only and not for medication dosing. [facility] GFR/1.73 sq M.predicted CKD-EPI (S/P/Bld) [Vol rate/Area] 137 >=60 mL/min/1.73 m2 [facility] Otheron 02-05-2020 Interpretation and review of laboratory results Normal [facility] TSH with Reflex Free T4on Interpretation and review of laboratory results Normal [facility] TSH Qn 1.16 m[IU]/L [facility] CBC WITH AUTO DIFFERENTIALon 12-23-2019 Basophils (Bld) [#/Vol] 0.10 10*3/uL [facility] Basophils/100 WBC (Bld) 0.9 % [facility] Eosinophils (Bld) [#/Vol] 0.91 10*3/uL High [facility] Eosinophils/100 WBC (Bld) 8.6 % [facility] Erythrocyte distribution width (RBC) [Entitic vol] 13.9 % 11.6 - 14.8 % [facility] Hematocrit (Bld) [Volume fraction] 43.3 % 36 - 46 % [facility] Hemoglobin (Bld) [Mass/Vol] 13.7 g/dL 12 - 16 g/dL [facility] Immature granulocytes (Bld) [#/Vol] 0.03 10*3/uL [facility] Immature granulocytes/100 WBC (Bld) 0.30 % [facility] Comment on above: The IG parameter is the percentage of metamyelocytes, myelocytes and promyelocytes. An immature granulocyte count (IG) of 1% or more suggests the possibility of infection, an IG count of 3% is very likely related to an infection. Lymphocytes (Bld) [#/Vol] 4.19 10*3/uL High [facility] Lymphocytes/100 WBC (Bld) 39.8 % [facility] MCH (RBC) [Entitic mass] 29.4 pg 26 - 34 pg [facility] MCHC (RBC) [Mass/Vol] 31.6 g/dL 31 - 37 g/dL [facility] MCV (RBC) [Entitic vol] 92.9 fL 80 - 100 fL [facility] Monocytes (Bld) [#/Vol] 1.22 10*3/uL High [facility] Monocytes/100 WBC (Bld) 11.6 % [facility] Neutrophils (Bld) [#/Vol] 4.08 10*3/uL [facility] Neutrophils/100 WBC (Bld) 38.8 % [facility] Nucleated RBC (Bld) [#/Vol] 0.00 10*3/uL [facility] Nucleated RBC/100 WBC (Bld) [Ratio] 0.0 % [facility] Platelet mean volume (Bld) [Entitic vol] 10.9 fL 9.4 - 12.4 fL [facility] Platelets (Bld) [#/Vol] 411 10*3/uL High [facility] RBC (Bld) [#/Vol] 4.66 10*6/uL [facility] ealth WBC (Bld) [#/Vol] 10.53 10*3/uL [facility] Calcium Levelon 12-23-2019 Calcium [Mass/Vol] 9.4 mg/dL 8.4 - 10. 2 mg/dL [facility] Chem 7on 12-23-2019 Anion gap [Moles/Vol] 10 mmol/L 10 - 2 0 mmol/L [facility] Chloride [Moles/Vol] 110 mmol/L High 98 - 10 8 mmol/L [facility] Creatinine [Mass/Vol] 0.66 mg/dL 0.40 - 1.10 [facility] GFR/1.73 sq M predicted among non-blacks MDRD (S/P/Bld) [Vol rate/Area] The eGFR should be used for monitoring renal function only and not for medication dosing. [facility] GFR/1.73 sq M.predicted CKD-EPI (S/P/Bld) [Vol rate/Area] 128 >=60 mL/min/1.73 m2 [facility] Glucose [Mass/Vol] 75 mg/dL 65 - 99 mg/dL [facility] HCO3 [Moles/Vol] 23 mmol/L 21 - 32 mmol/L [facility] Potassium [Moles/Vol] 4.2 mmol/L 3.5 - 5.1 mmol/L [facility] Comment on above: moderate hemolysis, result may be falsely increased. Sodium [Moles/Vol] 139 mmol/L 135 - 145 mmol/L [facility] Urea nitrogen [Mass/Vol] 14 mg/dL 8 - 25 mg/dL [facility] Urea nitrogen/Creatinine [Mass ratio] 21.2 mg/mg High [facility] Magnesium Levelon 12-23-2019 Magnesium [Mass/Vol] 2.4 mg/dL 1.6 - 2 .4 mg/dL [facility] Comment on above: moderate hemolysis, result may be falsely increased. Otheron 12-23-2019 Interpretation and review of laboratory results Normal [facility] Interpretation and review of laboratory results Abnormal [facility] URINALYSISon 12-23-2019 Bacteria Auto Ql (U) None Seen None Se en /hpf [facility] Bilirubin Ql (U) Negative Negative [facility] th Clarity Refractometry automated (U) Clear Clear [facility] Color (U) Yellow Colorless, Yellow [facility] Epithelial cells.squamous Auto (Urine sed) [#/Area] <1 [facility] Glucose Auto test strip (U) [Mass/Vol] Negative Negative mg/dL [facility] Hemoglobin Auto test strip Ql (U) Negative Negative [facility] Interpretation and review of laboratory results Abnormal [facility] Ketones (U) [Mass/Vol] Negative Negative mg/dL [facility] Leukocyte esterase Auto test strip Ql (U) Negative Negative [facility] Mucus Auto (Urine sed) [#/Area] Many Abnormal None Seen, Rare /lpf [facility] Nitrite Auto test strip Ql (U) Negative Negative [facility] pH (U) 6.0 [pH] [facility] Protein (U) [Mass/Vol] 30 Abnormal Negative mg/dL [facility] Comment on above: False positive resul ts may occur in urines with large amounts of hemoglobin, pH greater than 8.0, contrast medium, or disinfectants including ammonium compounds. RBC Auto (Urine sed) [#/Area] 2 [facility] Specific gravity (U) [Rel density] 1.028 High [facility] Urobilinogen (U) [Mass/Vol] <2.0 <2.0 mg/dL [facility] WBC Auto (Urine sed) [#/Area] <1 [facility] Microscopic examinat ion is performed on all urinalysis samples and only positive findings are reported. The test for blood on the chemical analytic portion of urinalysis may also be positive due to hemoglobinuria and myoglobinuria and if red blood cells are present they are quantified by microscopic examination. [facility] Urine Pregnancyon 12-23-2019 HCG ( test) Ql (U) Negative Negative [facility] Interpretation and review of laboratory results Normal [facility] CBCon 12-16-2019 Erythrocyte distribution width (RBC) [Ratio] 13.6 % 11.5 - 14.5 % [place] Hematocrit (Bld) [Volume fraction] 39.8 % 37 - 47 % [place] Hemoglobin (Bld) [Mass/Vol] 12.9 g/dL 12 - 16 g/dL [place] MCH (RBC) [Entitic mass] 30.3 pg 27 - 31.3 pg [place] MCHC (RBC) [Mass/Vol] 32.3 % Low 33 - 37 % [place], [place] MCV (RBC) [Entitic vol] 93.9 fL 82 - 100 fL [place] Platelets (Bld) [#/Vol] 355 10*3/uL 130 - 400 K/uL [place] RBC (Bld) [#/Vol] 4.24 10*6/uL [place] WBC (Bld) [#/Vol] 15.9 10*3/uL High 4.5 - 11 K/uL [place] CBC With Platelet No Differe ntialon 12-16-2019 Erythrocyte distribution width (RBC) [Ratio] 13.6 % Normal 11.5-14.5 [facility] Comment on above: Performed By: #### C BCND #### [facility] [address] [facility] [address] Hematocrit (Bld) [Volume fraction] 39.8 % Normal 37.0-47.0 [facility] Comment on above: Performed By: #### C BCND #### [facility] [address] [facility] [address] Hemoglobin (Bld) [Mass/Vol] 12.9 g/dL Normal 12.0-16.0 [facility] Comment on above: Performed By: #### C BCND #### [facility] [address] [place] [address] MCH (RBC) [Entitic mass] 30.3 pg Normal 27.0-31.3 [facility] Comment on above: Performed By: #### C BCND #### [facility] [address] [place] [address] MCHC (RBC) [Mass/Vol] 32.3 % Low 33.0-37.0 [facility] Comment on above: Performed By: #### C BCND #### [facility] [address] [place] [address] MCV (RBC) [Entitic vol] 93.9 fL Normal 82.0-100.0 [facility] Comment on above: Performed By: #### C BCND #### [facility] [address] [place] [address] Platelets (Bld) [#/Vol] 355 10*3/uL Normal 130-400 [facility] Comment on above: Performed By: #### C BCND #### [facility] [address] [place] [address] RBC (Bld) [#/Vol] 4.24 10*6/uL Normal 4.20-5.40 [facility] Comment on above: Performed By: #### C BCND #### [facility] [address] [place] [address] WBC (Bld) [#/Vol] 15.9 10*3/uL Critically high 4.5-11.0 [facility] Comment on above: Performed By: #### C BCND #### [facility] [address] [place] [address] CT HEAD WO CONTRASTon 2019 CT HEAD WO CONTRAST EXAMINATION: CT HEAD WO CONTRAST HISTORY: trauma HEAD PRESSURE syncopal episode. Hit right skull in the parietal region on concrete. Headache. TECHNIQUE: Serial axial images without IV contrast were obtained from the vertex to the foramen magnum. Sagittal and coronal reconstructions. All CT scans at this facility use dose modulation, iterative reconstruction, and/or weight based dosing when appropriate to reduce radiation dose to as low as reasonably achievable. COMPARISON: None. RESULT: Acute change: No evidence of an acute infarct or other acute parenchymal process. Hemorrhage: No evidence of acute intracranial hemorrhage. Mass Lesion / Mass Effect: There is no evidence of an intracranial mass or extraaxial fluid collection. No significant mass effect. Chronic change: None apparent. Parenchyma: There is no significant volume loss for age. The brain parenchyma is otherwise within normal limits for age. Ventricles: The ventricles are within normal limits of size and configuration for age. Paranasal sinuses and skull base: The visualized paranasal sinuses are grossly clear. Mastoid air cells are clear. The skull base is unremarkable. Soft tissues unremarkable. IMPRESSION: No acute intracranial process. Interpreted by: Aidan Rosario MD Signed by: Aidan Rosario MD 12/17/19 Final result Normal [facility] Comprehensive Metabolic Pane elyse 12-16-2019 Albumin [Mass/Vol] 5.0 g/dL Critically high 3.5-4.6 M [facility] Comment on above: Performed By: #### C MP #### [facility] [address] [place] [address] ALP [Catalytic activity/Vol] 89 U/L Normal 40-130 [place] Comment on above: Performed By: #### C MP #### [facility] [address] [place] [address] ALT [Catalytic activity/Vol] 9 U/L Normal 0-33 [place] Comment on above: Performed By: #### C MP #### [facility] [address] [place] [address] Anion gap [Moles/Vol] 12 mmol/L Normal 9-15 [place] Comment on above: Performed By: #### C MP #### [facility] [address] [place] [address] AST [Catalytic activity/Vol] 22 U/L Normal 0-35 [place] Comment on above: Performed By: #### C MP #### [facility] [address] [place] [address] Bilirubin [Mass/Vol] 0.6 mg/dL Normal 0.2-0.7 [facility] Comment on above: Performed By: #### C MP #### [facility] [address] [place] [address] Calcium [Mass/Vol] 9.7 mg/dL Normal 8.5-9.9 [place] Comment on above: Performed By: #### C MP #### [facility] [address] [place] [address] Chloride [Moles/Vol] 104 mmol/L Normal 95-107 [place], [place] Comment on above: Performed By: #### C MP #### [facility] [address] [place] [address] CO2 [Moles/Vol] 23 mmol/L Normal 20-31 [place], [place] Comment on above: Performed By: #### C MP #### [facility] [address] [place] [address] Creatinine [Mass/Vol] 0.48 mg/dL Low 0.50-0.90 [place] Comment on above: Performed By: #### C MP #### [facility] [address] [place] [address] GFR/1.73 sq M predicted among blacks MDRD (S/P/Bld) [Vol rate/Area] mL/min/{1.73_m2} Normal >60 [facility] Comment on above: Result Comment: >60 mL/min/1.73m2 EGFR, calc. for ages 18 and older using the MDRD formula (not corrected for weight), is valid for stable renal function. Performed By: #### C MP #### [facility] [address] [place] [address] GFR/1.73 sq M.predicted MDRD (S/P/Bld) [Vol rate/Area] mL/min/{1.73_m2} Normal >60 [facility] Comment on above: Result Comment: >60 mL/min/1.73m2 EGFR, calc. for ages 18 and older using the MDRD formula (not corrected for weight), is valid for stable renal function. Performed By: #### C MP #### [facility] [address] [place] [address] Globulin (S) [Mass/Vol] 3.4 g/dL Normal 2.3-3.5 [place] Comment on above: Performed By: #### C MP #### [facility] [address] [place] [address] Glucose [Mass/Vol] 104 mg/dL Critically high 70-99 [place] Comment on above: Performed By: #### C MP #### [facility] [address] [place] [address] Potassium [Moles/Vol] 3.8 mmol/L Normal 3.4-4.9 [place] Comment on above: Performed By: #### C MP #### [facility] [address] [place] [address] Protein [Mass/Vol] 8.4 g/dL Critically high 6.3-8.0 [place] Comment on above: Performed By: #### C MP #### [facility] [address] [place] [address] Sodium [Moles/Vol] 139 mmol/L Normal 135-144 [place] Comment on above: Performed By: #### C MP #### [facility] [address] [place] [address] Urea nitrogen [Mass/Vol] 15 mg/dL Normal 6-20 [place] Comment on above: Performed By: #### C MP #### [facility] [address] [place] [address] Albumin [Mass/Vol] 5 g/dL High 3.5 - 4.6 g/dL [place], [place] Bilirubin Ql (U) 0.6 mg/dL 0.2 - 0.7 mg/dL [place], [place] GFR >60.0 >60 [place], [place] Comment on above: >60 mL/min/1.73m2 EG FR, calc. for ages 18 and older using the MDRD formula (not corrected for weight), is valid for stable renal function. GFR Non- >60.0 >60 [place], [place] Comment on above: >60 mL/min/1.73m2 EG FR, calc. for ages 18 and older using the MDRD formula (not corrected for weight), is valid for stable renal function. Otheron 12-16-2019 Interpretation and review of laboratory results Abnormal [place], [place] , Urineon 0 Beta HCG ( test) Ql (U) Negative Detects HCG level >20 MIU/mL [place], [place] UR HCG Qualitativeon 020 Beta HCG ( test) Ql (U) Negative Normal Detects HC [facility] Comment on above: Performed By: #### U HCG #### [facility] [address] [place] [address] Urinalysis, reflex to cultur reta 12-16-2019 Bilirubin Ql (U) Negative Normal Negative [facility] Comment on above: Performed By: #### U AR #### [facility] [address] [place] [address] Clarity (U) Clear Normal Clear [facility] Comment on above: Performed By: #### U AR #### [facility] [address] [place] [address] Color (U) Yellow Normal Straw/[place] [facility] Comment on above: Performed By: #### U AR #### [facility] [address] [place] [address] Glucose Ql (U) Negative Normal Negative [facility] Comment on above: Performed By: #### U AR #### [facility] [address] [place] [address] Hemoglobin Ql (U) Negative Normal Negative [facility] Comment on above: Performed By: #### U AR #### [facility] [address] [place] [address] Ketones Ql (U) 40 mg/dL Abnormal Negative [facility] Comment on above: Performed By: #### U AR #### [facility] [address] [place] [address] Leukocyte esterase Test strip Ql (U) Negative Normal Negative [facility] Comment on above: Performed By: #### U AR #### [facility] [address] [place] [address] Nitrite Ql (U) Negative Normal Negative [facility] Comment on above: Performed By: #### U AR #### [facility] [address] [place] [address] pH (U) 7.0 [pH] Normal 5.0-9.0 [facility] Comment on above: Performed By: #### U AR #### [facility] [address] [place] [address] Protein Ql (U) Negative Normal Negative [facility] Comment on above: Performed By: #### U AR #### [facility] [address] [place] [address] Specific gravity (U) [Rel density] 1.025 Normal 1.005-1.03 [facility] Comment on above: Performed By: #### U AR #### [facility] [address] [place] [address] Urine Reflexed to Culture Not Indicated Normal [facility] Comment on above: Performed By: #### U AR #### [facility] [address] [place] [address] Urobilinogen Qn (U) 0.2 {Polina'U}/dL Normal < 2.0 [facility] Comment on above: Performed By: #### U AR #### [facility] [address] [place] [address] Urine Reflex to Cultureon Bilirubin Urine Negative Negative [place], [place] Blood, Urine Negative Negative [place] Clarity, UA Clear Clear [place], [place] Color, UA Yellow Straw/Yellow [place] Glucose, Ur Negative Negative mg/dL [place] Ketones Ql (U) 40 mg/dL Abnormal Negative [place], [place] Leukocyte esterase Test strip Ql (U) Negative Negative [place] Nitrite, Urine Negative Negative [place] pH, UA 7.0 [place] Protein (U) [Mass/Vol] Negative Negative mg/dL [place] Specific [place], UA 1.025 [place], [place] Urine Reflex to Culture Not Indicated [place] Urobilinogen, Urine 0.2 <2.0 E.U./dL [place], [place] POC H. Pylori Teston 019 [address] [facility] Lot Number [id number] [facility] POC H. Pylori Negative Negative [facility] POC , Urineon 02-24 HCG ( test) Ql (U) Negative Negative [facility] Internal Control Pass [facility] Interpretation and review of laboratory results Normal [facility] Specific gravity (U) [Rel density] [facility] Hepatobiliary With Ejecti on Fractionon 02-11-2019 Cholesterol [Mass/Vol] 1. No evidence of acute cholecystitis. 2. Gallbladder ejection fraction is decreased, suggesting chronic cholecystitis or biliary dyskinesia. 3. Mild enterogastric reflux. [facility]/trn Workstation ID: [id number] [facility] EXAMINATION: HEPATOBILIARY SCAN WITH GALLBLADDER EJECTION FRACTION HISTORY: ORDERING SYSTEM PROVIDED HISTORY: Abdominal pain, abnormal CT, TECHNOLOGIST PROVIDED HISTORY: Illness/Other Reason for exam: nausea, abn ct, weight loss Encounter Type: Ongoing Additional signs and symptoms: Left side abd pain, cramping, back pain, shoulder pain ORDERING SYSTEM PROVIDED DIAGNOSIS CODES: R10.9 Abdominal pain, unspecified abdominal location R63.4 Weight loss R11.0 Nausea COMPARISON: CT abdomen and pelvis 01/28/2019. TECHNIQUE: TECHNIQUE: The patient was injected with 4.2 mCi technetium Choletec and multiple images were performed. The patient then drank 8 ounces of Boost supplement and dynamic images were performed over approximately 60 minutes. A region of interest was placed around the gallbladder and a time activity curve was generated. The gallbladder ejection fraction was calculated. FINDINGS: There is normal uptake and excretion of tracer by the liver. The gallbladder contracted with an ejection fraction of 25%. The normal range is 33% or greater, by this technique. There is mild enterogastric reflux. [facility] Interface, Rad In Fu ji Speechq - 02/11/2019 9:34 PM EDT EXAMINATION: HEPATOBILIARY SCAN WITH GALLBLADDER EJECTION FRACTION HISTORY: ORDERING SYSTEM PROVIDED HISTORY: Abdominal pain, abnormal CT, TECHNOLOGIST PROVIDED HISTORY: Illness/Other Reason for exam: nausea, abn ct, weight loss Encounter Type: Ongoing Additional signs and symptoms: Left side abd pain, cramping, back pain, shoulder pain ORDERING SYSTEM PROVIDED DIAGNOSIS CODES: R10.9 Abdominal pain, unspecified abdominal location R63.4 Weight loss R11.0 Nausea COMPARISON: CT abdomen and pelvis 01/28/2019. TECHNIQUE: TECHNIQUE: The patient was injected with 4.2 mCi technetium Choletec and multiple images were performed. The patient then drank 8 ounces of Boost supplement and dynamic images were performed over approximately 60 minutes. A region of interest was placed around the gallbladder and a time activity curve was generated. The gallbladder ejection fraction was calculated. FINDINGS: There is normal uptake and excretion of tracer by the liver. The gallbladder contracted with an ejection fraction of 25%. The normal range is 33% or greater, by this technique. There is mild enterogastric reflux. IMPRESSION: 1. No evidence of acute cholecystitis. 2. Gallbladder ejection fraction is decreased, suggesting chronic cholecystitis or biliary dyskinesia. 3. Mild enterogastric reflux. [facility]/trn Workstation ID: [id number] [facility] Bilirubin, Directon 01-29-20 19 Bilirubin.conjugated [Mass/Vol] mg/dL 0 - 0.4 mg/dL [facility] Interpretation and review of laboratory results Normal [facility] CBC WITH AUTO DIFFERENTIALon 01-28-2019 Basophils (Bld) [#/Vol] 0.08 10*3/uL [facility] Basophils/100 WBC (Bld) 0.6 % [facility] Eosinophils (Bld) [#/Vol] 0.43 10*3/uL [facility] Eosinophils/100 WBC (Bld) 3.5 % [facility] Erythrocyte distribution width (RBC) [Entitic vol] 13.3 % 11.6 - 14.8 % [facility] Hematocrit (Bld) [Volume fraction] 38.0 % 36 - 46 % [facility] Hemoglobin (Bld) [Mass/Vol] 12.5 g/dL 12 - 16 g/dL [facility] Immature granulocytes (Bld) [#/Vol] 0.06 10*3/uL [facility] Immature granulocytes/100 WBC (Bld) 0.50 % [facility] Comment on above: The IG parameter is the percentage of metamyelocytes, myelocytes, and promyelocytes. Interpretation and review of laboratory results Abnormal [facility] Lymphocytes (Bld) [#/Vol] 5.24 10*3/uL [facility] Lymphocytes/100 WBC (Bld) 42.3 % [facility] MCH (RBC) [Entitic mass] 29.3 pg 25 - 35 pg [facility] MCHC (RBC) [Mass/Vol] 32.9 g/dL 31 - 37 g/dL [facility] MCV (RBC) [Entitic vol] 89.0 fL 78 - 102 fL [facility] Monocytes (Bld) [#/Vol] 1.22 10*3/uL [facility] Monocytes/100 WBC (Bld) 9.8 % [facility] Neutrophils (Bld) [#/Vol] 5.36 10*3/uL [facility] Neutrophils/100 WBC (Bld) 43.3 % [facility] Nucleated RBC (Bld) [#/Vol] 0.00 10*3/uL [facility] Nucleated RBC/100 WBC (Bld) [Ratio] 0.0 % [facility] Platelet mean volume (Bld) [Entitic vol] 11.0 fL 9 - 15.5 fL [facility] Platelets (Bld) [#/Vol] 397 10*3/uL [facility] RBC (Bld) [#/Vol] 4.27 10*6/uL [facility] ealth WBC (Bld) [#/Vol] 12.39 10*3/uL [facility] CT Abdomen Pelvis With IV Co ntrast Onlyon 01-28-2019 EXAMINATION: CT ABDO MEN PELVIS WITH IV CONTRAST ONLY HISTORY: ORDERING SYSTEM PROVIDED HISTORY: ABD PAIN FOR SIX MONTHS NOW BLOODY DIARRHEA X 2 WEEKS, TECHNOLOGIST PROVIDED HISTORY: Illness/Other Reason for exam: MID ABD PAIN X 6 MONTHS NOW HAS BLOODY DIARRHEA X 2 WEEKS Encounter Type: Unknown Additional signs and symptoms: UNKNOWN ORDERING SYSTEM PROVIDED DIAGNOSIS CODES: COMPARISON: CT 11/08/2018. TECHNIQUE: CT examination of the abdomen and pelvis following administration of 75 mL Isovue-370 intravenous contrast. Coronal and sagittal reformations are performed. Dose reduction techniques were achieved by using automated exposure control and/or adjustment of mA and/or kV according to patient size and/or use of iterative reconstruction technique. FINDINGS: Lung bases are clear. ABDOMEN: Liver is homogeneous in attenuation without evidence for focal lesion. Periportal edema. Gallbladder wall edema is present. No pericholecystic inflammatory changes by CT. No abnormal biliary dilatation. The portal vein is patent. Prior splenectomy. The adrenal glands and pancreas are normal in appearance. No abdominal lymphadenopathy. Symmetric enhancement of the kidneys without evidence for hydronephrosis or stone. PELVIS: No ureteral or bladder stone. Uterus and adnexa are unremarkable for age. Small amount of pelvic free fluid, likely physiologic. No pelvic lymphadenopathy. Normal appendix. No free air. No suspicious osteolytic or osteoblastic lesion. [facility], Rad In Fu ji Speechq - 01/28/2019 6:25 AM EDT EXAMINATION: CT ABDOMEN PELVIS WITH IV CONTRAST ONLY HISTORY: ORDERING SYSTEM PROVIDED HISTORY: ABD PAIN FOR SIX MONTHS NOW BLOODY DIARRHEA X 2 WEEKS, TECHNOLOGIST PROVIDED HISTORY: Illness/Other Reason for exam: MID ABD PAIN X 6 MONTHS NOW HAS BLOODY DIARRHEA X 2 WEEKS Encounter Type: Unknown Additional signs and symptoms: UNKNOWN ORDERING SYSTEM PROVIDED DIAGNOSIS CODES: COMPARISON: CT 11/08/2018. TECHNIQUE: CT examination of the abdomen and pelvis following administration of 75 mL Isovue-370 intravenous contrast. Coronal and sagittal reformations are performed. Dose reduction techniques were achieved by using automated exposure control and/or adjustment of mA and/or kV according to patient size and/or use of iterative reconstruction technique. FINDINGS: Lung bases are clear. ABDOMEN: Liver is homogeneous in attenuation without evidence for focal lesion. Periportal edema. Gallbladder wall edema is present. No pericholecystic inflammatory changes by CT. No abnormal biliary dilatation. The portal vein is patent. Prior splenectomy. The adrenal glands and pancreas are normal in appearance. No abdominal lymphadenopathy. Symmetric enhancement of the kidneys without evidence for hydronephrosis or stone. PELVIS: No ureteral or bladder stone. Uterus and adnexa are unremarkable for age. Small amount of pelvic free fluid, likely physiologic. No pelvic lymphadenopathy. Normal appendix. No free air. No suspicious osteolytic or osteoblastic lesion. IMPRESSION: 1. Periportal edema and gallbladder wall edema. Findings remain nonspecific. This finding can be seen in the setting of aggressive volume resuscitation, hypotony anemic state tend underlying hepatitis. No focal hepatic lesion. 2. No renal, ureteral or bladder stone. 3. Normal appendix. 4. Small amount of pelvic free fluid, likely physiologic. [facility] Workstation ID: [id number] [facility] 1. Periportal edema and gallbladder wall edema. Findings remain nonspecific. This finding can be seen in the setting of aggressive volume resuscitation, hypotony anemic state tend underlying hepatitis. No focal hepatic lesion. 2. No renal, ureteral or bladder stone. 3. Normal appendix. 4. Small amount of pelvic free fluid, likely physiologic. [facility] Workstation ID: [id number] [facility] Comprehensive Metabolic Pane elyse 01-28-2019 Albumin [Mass/Vol] 4.2 g/dL 3.2 - 4.5 g/dL [facility] ALP [Catalytic activity/Vol] 84 U/L 40 - 140 U/L [facility] ALT [Catalytic activity/Vol] 20 U/L 14 - 65 U/L [facility] Anion gap [Moles/Vol] 12 mmol/L 10 - 2 0 mmol/L [facility] AST [Catalytic activity/Vol] 11 U/L 0 - 45 U/L [facility] Bilirubin [Mass/Vol] 0.3 mg/dL 0 - 1.3 mg/dL [facility] Calcium [Mass/Vol] 9.3 mg/dL 8.4 - 10. 2 mg/dL [facility] Chloride [Moles/Vol] 111 mmol/L High 98 - 10 8 mmol/L [facility] Creatinine [Mass/Vol] 0.58 mg/dL 0.5 - 1 mg/dL [facility] GFR/1.73 sq M predicted among non-blacks MDRD (S/P/Bld) [Vol rate/Area] The eGFR should be used for monitoring renal function only and not for medication dosing. [facility] GFR/1.73 sq M.predicted CKD-EPI (S/P/Bld) [Vol rate/Area] 135 >=60 mL/min/1.73 m2 [facility] Glucose [Mass/Vol] 88 mg/dL 65 - 99 mg/dL [facility] HCO3 [Moles/Vol] 22 mmol/L 21 - 32 mmol/L [facility] Interpretation and review of laboratory results Abnormal [facility] Potassium [Moles/Vol] 3.7 mmol/L 3.5 - 5.1 mmol/L [facility] Protein [Mass/Vol] 7.6 g/dL 6 - 8 g/dL [facility] alth Sodium [Moles/Vol] 141 mmol/L 135 - 145 mmol/L [facility] Urea nitrogen [Mass/Vol] 16 mg/dL 8 - 25 mg/dL [facility] Urea nitrogen/Creatinine [Mass ratio] 27.6 mg/mg High [facility] Lipaseon 01-28-2019 Interpretation and review of laboratory results Normal [facility] Lipase [Catalytic activity/Vol] 105 U/L 73 - 393 U/L [facility] PT/INRon 01-28-2019 INR Coag (PPP) [Relative time] 1.1 {INR} [facility] Interpretation and review of laboratory results Normal [facility] PT Coag (PPP) [Time] 13.8 s [facility] During the induction phase of oral anticoagulation, the INR may not reflect the anticoagulation status of the patient. Therapeutic ranges for INR's are: Most clinical situations: INR 2.0-3.0 Mechanical Prosthetic Valve: INR 2.5-3.5 Critical: INR >5.0 [facility] TROPONINon 01-28-2019 Troponin I.cardiac [Mass/Vol] ng/mL <=45 ng/L [facility] Troponin I.cardiac [Mass/Vol] Normal [facility] XR Chest 1 Viewon 01-28-2019 No acute cardiopulmo nary abnormality. [facility] Workstation ID: [id number] [facility] Interface, Rad In Balbir redman Speechq - 01/28/2019 5:53 AM EDT EXAMINATION: XR CHEST PA/AP HISTORY: ORDERING SYSTEM PROVIDED HISTORY: ABD PAIN, TECHNOLOGIST PROVIDED HISTORY: Illness/Other Reason for exam: abdomen pain Cancer History: [facility] Surgery, RadiationHistory: [facility] Encounter Type: Initial Additional signs and symptoms: . ORDERING SYSTEM PROVIDED DIAGNOSIS CODES: COMPARISON: Chest radiograph dated 11/05/2018. FINDINGS: One view of the chest was obtained. The cardiac silhouette is normal in size. The lungs are clear. There is no significant pneumothorax or pleural effusion. No acute osseous abnormality is seen. IMPRESSION: No acute cardiopulmonary abnormality. [facility] Workstation ID: [id number] [facility] EXAMINATION: XR CHES T PA/AP HISTORY: ORDERING SYSTEM PROVIDED HISTORY: ABD PAIN, TECHNOLOGIST PROVIDED HISTORY: Illness/Other Reason for exam: abdomen pain Cancer History: [facility] Surgery, RadiationHistory: [facility] Encounter Type: Initial Additional signs and symptoms: . ORDERING SYSTEM PROVIDED DIAGNOSIS CODES: COMPARISON: Chest radiograph dated 11/05/2018. FINDINGS: One view of the chest was obtained. The cardiac silhouette is normal in size. The lungs are clear. There is no significant pneumothorax or pleural effusion. No acute osseous abnormality is seen. [facility] URINALYSISon 01-27-2019 Bacteria Auto Ql (U) Few Abnormal None Se en /hpf [facility] Bilirubin Ql (U) Negative Negative [facility] Refract[facility] automated (U) Cloudy Abnormal Clear [facility] Color (U) Yellow Colorless, Yellow [facility] Epithelial cells.squamous Auto (Urine sed) [#/Area] 4 [facility] Glucose Auto test strip (U) [Mass/Vol] Negative Negative mg/dL [facility] Hemoglobin Auto test strip Ql (U) Small Abnormal Negative [facility] Interpretation and review of laboratory results Abnormal [facility] Ketones (U) [Mass/Vol] Negative Negative mg/dL [facility] Leukocyte esterase Auto test strip Ql (U) Negative Negative [facility] Mucus Auto (Urine sed) [#/Area] Many Abnormal None Seen, Rare /lpf [facility] Nitrite Auto test strip Ql (U) Positive Abnormal Negative [facility] pH (U) 5.0 [pH] [facility] Protein (U) [Mass/Vol] Negative Negative mg/dL [facility] RBC Auto (Urine sed) [#/Area] 9 High [facility] Specific gravity (U) [Rel density] 1.024 [facility] Urobilinogen (U) [Mass/Vol] <2.0 <2.0 mg/dL [facility] WBC Auto (Urine sed) [#/Area] 7 High [facility] Microscopic examinat ion is performed on all urinalysis samples and only positive findings are reported. The test for blood on the chemical analytic portion of urinalysis may also be positive due to hemoglobinuria and myoglobinuria and if red blood cells are present they are quantified by microscopic examination. [facility] Urine Pregnancyon 01-27-2019 HCG ( test) Ql (U) Negative Negative [facility] Interpretation and review of laboratory results Normal [facility] Basic Metabolic Panelon 10-22 Anion gap [Moles/Vol] 10 mmol/L 10 - 2 0 mmol/L [facility] Calcium [Mass/Vol] 8.6 mg/dL 8.4 - 10. 2 mg/dL [facility] Chloride [Moles/Vol] 112 mmol/L High 98 - 10 8 mmol/L [facility] Creatinine [Mass/Vol] 0.44 mg/dL Low 0.5 - 1 mg/dL [facility] GFR/1.73 sq M predicted among non-blacks MDRD (S/P/Bld) [Vol rate/Area] The eGFR should be used for monitoring renal function only and not for medication dosing. [facility] GFR/1.73 sq M.predicted CKD-EPI (S/P/Bld) [Vol rate/Area] 148 >=60 mL/min/1.73 m2 [facility] Glucose [Mass/Vol] 99 mg/dL 65 - 99 mg/dL [facility] HCO3 [Moles/Vol] 23 mmol/L 21 - 32 mmol/L [facility] Interpretation and review of laboratory results Abnormal [facility] Potassium [Moles/Vol] 3.9 mmol/L 3.5 - 5.1 mmol/L [facility] Sodium [Moles/Vol] 141 mmol/L 135 - 145 mmol/L [facility] Urea nitrogen [Mass/Vol] 7 mg/dL Low 8 - 25 mg/dL [facility] Urea nitrogen/Creatinine [Mass ratio] 15.9 mg/mg [facility] CBC WITH AUTO DIFFERENTIALon 11-09-2018 Basophils (Bld) [#/Vol] 0.07 10*3/uL [facility] Basophils/100 WBC (Bld) 0.6 % [facility] Eosinophils (Bld) [#/Vol] 0.50 10*3/uL [facility] Eosinophils/100 WBC (Bld) 4.3 % [facility] Erythrocyte distribution width (RBC) [Entitic vol] 15.7 % High 11.6 - 14.8 % [facility] Hematocrit (Bld) [Volume fraction] 34.2 % Low 36 - 46 % [facility] Hemoglobin (Bld) [Mass/Vol] 11.2 g/dL Low 12 - 16 g/dL [facility] Immature granulocytes (Bld) [#/Vol] 0.05 10*3/uL [facility] Immature granulocytes/100 WBC (Bld) 0.40 % [facility] Comment on above: The IG parameter is the percentage of metamyelocytes, myelocytes, and promyelocytes. Interpretation and review of laboratory results Abnormal [facility] Lymphocytes (Bld) [#/Vol] 4.75 10*3/uL High [facility] Lymphocytes/100 WBC (Bld) 41.3 % [facility] MCH (RBC) [Entitic mass] 30.0 pg 25 - 35 pg [facility] MCHC (RBC) [Mass/Vol] 32.7 g/dL 31 - 37 g/dL [facility] MCV (RBC) [Entitic vol] 91.7 fL 78 - 102 fL [facility] Monocytes (Bld) [#/Vol] 1.22 10*3/uL High [facility] Monocytes/100 WBC (Bld) 10.6 % [facility] Neutrophils (Bld) [#/Vol] 4.92 10*3/uL [facility] Neutrophils/100 WBC (Bld) 42.8 % [facility] Nucleated RBC (Bld) [#/Vol] 0.00 10*3/uL [facility] Nucleated RBC/100 WBC (Bld) [Ratio] 0.0 % [facility] Platelet mean volume (Bld) [Entitic vol] 11.1 fL 9 - 15.5 fL [facility] Platelets (Bld) [#/Vol] 453 10*3/uL High [facility] RBC (Bld) [#/Vol] 3.73 10*6/uL Low [facility]alth WBC (Bld) [#/Vol] 11.51 10*3/uL [facility] CBC WITH AUTO DIFFERENTIALon 11-08-2018 Basophils (Bld) [#/Vol] 0.06 10*3/uL [facility] Basophils/100 WBC (Bld) 0.4 % [facility] Eosinophils (Bld) [#/Vol] 0.24 10*3/uL [facility] Eosinophils/100 WBC (Bld) 1.8 % [facility] Erythrocyte distribution width (RBC) [Entitic vol] 15.8 % High 11.6 - 14.8 % [facility] Hematocrit (Bld) [Volume fraction] 35.7 % Low 36 - 46 % [facility] Hemoglobin (Bld) [Mass/Vol] 11.8 g/dL Low 12 - 16 g/dL [facility] Immature granulocytes (Bld) [#/Vol] 0.05 10*3/uL [facility] Immature granulocytes/100 WBC (Bld) 0.40 % [facility] Comment on above: The IG parameter is the percentage of metamyelocytes, myelocytes, and promyelocytes. Interpretation and review of laboratory results Abnormal [facility] Lymphocytes (Bld) [#/Vol] 4.45 10*3/uL High [facility] Lymphocytes/100 WBC (Bld) 33.1 % [facility] MCH (RBC) [Entitic mass] 29.9 pg 25 - 35 pg [facility] [facility] MCHC (RBC) [Mass/Vol] 33.1 g/dL 31 - 37 g/dL [facility] MCV (RBC) [Entitic vol] 90.6 fL 78 - 102 fL [facility] Monocytes (Bld) [#/Vol] 1.51 10*3/uL High [facility] Monocytes/100 WBC (Bld) 11.2 % [facility] Neutrophils (Bld) [#/Vol] 7.15 10*3/uL High [facility] Neutrophils/100 WBC (Bld) 53.1 % [facility] Nucleated RBC (Bld) [#/Vol] 0.00 10*3/uL [facility] Nucleated RBC/100 WBC (Bld) [Ratio] 0.0 % [facility] Platelet mean volume (Bld) [Entitic vol] 12.2 fL 9 - 15.5 fL [facility] Platelets (Bld) [#/Vol] 441 10*3/uL High [facility] RBC (Bld) [#/Vol] 3.94 10*6/uL Low [facility] ealth WBC (Bld) [#/Vol] 13.46 10*3/uL [facility] CT Abdomen Pelvis With IV Co ntrast Onlyon 11-08-2018 1. Djcv-vy-vwfxdgyf edematous changes reflective of pyelonephritis of the mid and inferior aspect of the right kidney. 2. No evidence of hydronephrosis or urinary tract stone. Urinary bladder incidentally is somewhat overdistended at the time of the study. 3. New byvt-rd-gwebdjag ascites in the pelvis which has developed fairly rapidly since the prior study. 4. Wrkw-iz-klrracxk constipation. 5. Patient is status post splenectomy. Workstation ID: [id number] [facility] Boundary, Rad In Fu ji Speechq - 11/08/2018 4:46 PM EDT EXAMINATION: CT ABDOMEN PELVIS WITH IV CONTRAST ONLY HISTORY: ORDERING SYSTEM PROVIDED HISTORY: flank pain pyelonephritis wbc not improving r/o kidney abscess, TECHNOLOGIST PROVIDED HISTORY: Reason for exam: rt flank pain Illness/Other Encounter Type: Initial Additional signs and symptoms: no ORDERING SYSTEM PROVIDED DIAGNOSIS CODES: N39.0 Acute UTI A41.9 Sepsis, due to unspecified organism (HCC) COMPARISON: CT abdomen pelvis from 11/06/2018. TECHNIQUE: CT examination of the abdomen and pelvis following the administration of intravenous contrast. Coronal and sagittal reformations were performed. Dose reduction techniques were achieved by using automated exposure control and/or adjustment of mA and/or kV according to patient size and/or use of iterative reconstruction technique. CONTRAST: IOPAMIDOL 76 % INTRAVENOUS SOLUTION - 75 mL, FINDINGS: The lung bases are clear and well aerated. The inferior region of the heart shows no gross enlargement or pericardial effusion. The gastroesophageal junction is unremarkable. The abdominal and pelvic vasculature appears to be unremarkable. The liver shows no abnormal enhancement or ductal dilatation. The spleen has been removed. There appears to be a series of small splenules in the anterior aspect of the left upper quadrant. Stomach, spleen, duodenum and pancreas are unremarkable. The gallbladder shows no stones or inflammation. Both kidneys appear to show no delay in filtration. There are some patchy areas of decreased attenuation in the middle and lower aspect on the right suggestive of pyelonephritis. No obvious hydronephrosis or stones are noted bilaterally. There appears to be a mildly prominent extrarenal pelvis on the left without hydronephrosis. The ureters are unremarkable. Urinary bladder is somewhat overly distended but otherwise normal. The inguinal and ischiorectal regions are unremarkable. The uterus and adnexal areas are unremarkable except now there is moderate fluid in the pelvis positioned mostly towards the right without loculation. This is fairly rapid development from the study of 11/06/2018. The anus and rectum are unremarkable. There is mild air and stool noted throughout the colon suggestive of mild constipation. Small bowel, mesentery and ileocecal junction are unremarkable. There is no free air or mass or lymphadenopathy. No bony defects are noted. Subcutaneous tissues are unremarkable. No anterior abdominal wall hernia is noted. IMPRESSION: 1. Nhzp-mg-ijuucagg edematous changes reflective of pyelonephritis of the mid and inferior aspect of the right kidney. 2. No evidence of hydronephrosis or urinary tract stone. Urinary bladder incidentally is somewhat overdistended at the time of the study. 3. New jzoq-zr-iwyotkmd ascites in the pelvis which has developed fairly rapidly since the prior study. 4. Jezi-uq-slcftfav constipation. 5. Patient is status post splenectomy. Workstation ID: [id number] [facility] EXAMINATION: CT ABDO MEN PELVIS WITH IV CONTRAST ONLY HISTORY: ORDERING SYSTEM PROVIDED HISTORY: flank pain pyelonephritis wbc not improving r/o kidney abscess, TECHNOLOGIST PROVIDED HISTORY: Reason for exam: rt flank pain Illness/Other Encounter Type: Initial Additional signs and symptoms: no ORDERING SYSTEM PROVIDED DIAGNOSIS CODES: N39.0 Acute UTI A41.9 Sepsis, due to unspecified organism (HCC) COMPARISON: CT abdomen pelvis from 11/06/2018. TECHNIQUE: CT examination of the abdomen and pelvis following the administration of intravenous contrast. Coronal and sagittal reformations were performed. Dose reduction techniques were achieved by using automated exposure control and/or adjustment of mA and/or kV according to patient size and/or use of iterative reconstruction technique. CONTRAST: IOPAMIDOL 76 % INTRAVENOUS SOLUTION - 75 mL, FINDINGS: The lung bases are clear and well aerated. The inferior region of the heart shows no gross enlargement or pericardial effusion. The gastroesophageal junction is unremarkable. The abdominal and pelvic vasculature appears to be unremarkable. The liver shows no abnormal enhancement or ductal dilatation. The spleen has been removed. There appears to be a series of small splenules in the anterior aspect of the left upper quadrant. Stomach, spleen, duodenum and pancreas are unremarkable. The gallbladder shows no stones or inflammation. Both kidneys appear to show no delay in filtration. There are some patchy areas of decreased attenuation in the middle and lower aspect on the right suggestive of pyelonephritis. No obvious hydronephrosis or stones are noted bilaterally. There appears to be a mildly prominent extrarenal pelvis on the left without hydronephrosis. The ureters are unremarkable. Urinary bladder is somewhat overly distended but otherwise normal. The inguinal and ischiorectal regions are unremarkable. The uterus and adnexal areas are unremarkable except now there is moderate fluid in the pelvis positioned mostly towards the right without loculation. This is fairly rapid development from the study of 11/06/2018. The anus and rectum are unremarkable. There is mild air and stool noted throughout the colon suggestive of mild constipation. Small bowel, mesentery and ileocecal junction are unremarkable. There is no free air or mass or lymphadenopathy. No bony defects are noted. Subcutaneous tissues are unremarkable. No anterior abdominal wall hernia is noted. [facility] Urine Aerobic Cultureon 10-22 Bacteria identified Aer cx Nom (Unsp spec) No Growth (<1,000 CFU/mL) [facility] CBC WITH AUTO DIFFERENTIALon 11-07-2018 Basophils (Bld) [#/Vol] 0.06 10*3/uL [facility] Basophils/100 WBC (Bld) 0.3 % [facility] Eosinophils (Bld) [#/Vol] 0.21 10*3/uL [facility] Eosinophils/100 WBC (Bld) 1.0 % [facility] Erythrocyte distribution width (RBC) [Entitic vol] 15.9 % High 11.6 - 14.8 % [facility] Hematocrit (Bld) [Volume fraction] 37.5 % 36 - 46 % [facility] Hemoglobin (Bld) [Mass/Vol] 12.1 g/dL 12 - 16 g/dL [facility] Immature granulocytes (Bld) [#/Vol] 0.08 10*3/uL [facility] Immature granulocytes/100 WBC (Bld) 0.40 % [facility] Comment on above: The IG parameter is the percentage of metamyelocytes, myelocytes, and promyelocytes. Interpretation and review of laboratory results Abnormal [facility] Lymphocytes (Bld) [#/Vol] 5.29 10*3/uL High [facility] Lymphocytes/100 WBC (Bld) 25.2 % [facility] MCH (RBC) [Entitic mass] 29.7 pg 25 - 35 pg [facility] MCHC (RBC) [Mass/Vol] 32.3 g/dL 31 - 37 g/dL [facility] MCV (RBC) [Entitic vol] 92.1 fL 78 - 102 fL [facility] Monocytes (Bld) [#/Vol] 2.12 10*3/uL High [facility] Monocytes/100 WBC (Bld) 10.1 % [facility] Neutrophils (Bld) [#/Vol] 13.26 10*3/uL High [facility] Neutrophils/100 WBC (Bld) 63.0 % [facility] Comment on above: Peripheral smear rev iewed manually Nucleated RBC (Bld) [#/Vol] 0.00 10*3/uL [facility] Nucleated RBC/100 WBC (Bld) [Ratio] 0.0 % [facility] Platelet mean volume (Bld) [Entitic vol] 11.3 fL 9 - 15.5 fL [facility] Platelets (Bld) [#/Vol] 316 10*3/uL [facility] RBC (Bld) [#/Vol] 4.07 10*6/uL Low [facility] ealth WBC (Bld) [#/Vol] 21.02 10*3/uL High [facility] MORPHOLOGYon 11-07-2018 [place] cells LM Ql (Bld) Few [facility] Basic Metabolic Panelon 10-22 Anion gap [Moles/Vol] 11 mmol/L 10 - 2 0 mmol/L [facility] Calcium [Mass/Vol] 8.2 mg/dL Low 8.4 - 10. 2 mg/dL [facility] Chloride [Moles/Vol] 114 mmol/L High 98 - 10 8 mmol/L [facility] Creatinine [Mass/Vol] 0.51 mg/dL 0.5 - 1 mg/dL [facility] GFR/1.73 sq M predicted among non-blacks MDRD (S/P/Bld) [Vol rate/Area] The eGFR should be used for monitoring renal function only and not for medication dosing. [facility] GFR/1.73 sq M.predicted CKD-EPI (S/P/Bld) [Vol rate/Area] 141 >=60 mL/min/1.73 m2 [facility] Glucose [Mass/Vol] 96 mg/dL 65 - 99 mg/dL [facility] HCO3 [Moles/Vol] 20 mmol/L Low 21 - 32 mmol/L [facility] Interpretation and review of laboratory results Abnormal [facility] Potassium [Moles/Vol] 3.6 mmol/L 3.5 - 5.1 mmol/L [facility] Sodium [Moles/Vol] 141 mmol/L 135 - 145 mmol/L [facility] Urea nitrogen [Mass/Vol] 5 mg/dL Low 8 - 25 mg/dL [facility] Urea nitrogen/Creatinine [Mass ratio] 9.8 mg/mg Low [facility] CBC WITH AUTO DIFFERENTIALon 11-06-2018 Erythrocyte distribution width (RBC) [Entitic vol] 15.6 % High 11.6 - 14.8 % [facility] Hematocrit (Bld) [Volume fraction] 34.7 % Low 36 - 46 % [facility] Hemoglobin (Bld) [Mass/Vol] 11.2 g/dL Low 12 - 16 g/dL [facility] MCH (RBC) [Entitic mass] 29.7 pg 25 - 35 pg [facility] MCHC (RBC) [Mass/Vol] 32.3 g/dL 31 - 37 g/dL [facility] MCV (RBC) [Entitic vol] 92.0 fL 78 - 102 fL [facility] Nucleated RBC (Bld) [#/Vol] 0.00 10*3/uL [facility] Nucleated RBC/100 WBC (Bld) [Ratio] 0.0 % [facility] Platelet mean volume (Bld) [Entitic vol] 10.8 fL 9 - 15.5 fL [facility] Platelets (Bld) [#/Vol] 347 10*3/uL [facility] RBC (Bld) [#/Vol] 3.77 10*6/uL Low [facility] ealth WBC (Bld) [#/Vol] 21.19 10*3/uL High [facility] Basophils (Bld) [#/Vol] 0.09 10*3/uL [facility] Basophils/100 WBC (Bld) 0.4 % [facility] Eosinophils (Bld) [#/Vol] 0.13 10*3/uL [facility] Eosinophils/100 WBC (Bld) 0.6 % [facility] Erythrocyte distribution width (RBC) [Entitic vol] 15.4 % High 11.6 - 14.8 % [facility] Hematocrit (Bld) [Volume fraction] 34.6 % Low 36 - 46 % [facility] Hemoglobin (Bld) [Mass/Vol] 11.2 g/dL Low 12 - 16 g/dL [facility] Immature granulocytes (Bld) [#/Vol] 0.13 10*3/uL [facility] Immature granulocytes/100 WBC (Bld) 0.60 % [facility] Comment on above: The IG parameter is the percentage of metamyelocytes, myelocytes, and promyelocytes. Interpretation and review of laboratory results Abnormal [facility] Lymphocytes (Bld) [#/Vol] 5.91 10*3/uL High [facility] Lymphocytes/100 WBC (Bld) 25.8 % [facility] MCH (RBC) [Entitic mass] 29.9 pg 25 - 35 pg [facility] MCHC (RBC) [Mass/Vol] 32.4 g/dL 31 - 37 g/dL [facility] MCV (RBC) [Entitic vol] 92.5 fL 78 - 102 fL [facility] Monocytes (Bld) [#/Vol] 2.60 10*3/uL High [facility] Monocytes/100 WBC (Bld) 11.4 % [facility] Neutrophils (Bld) [#/Vol] 14.04 10*3/uL High [facility] Neutrophils/100 WBC (Bld) 61.2 % [facility] Comment on above: Peripheral smear rev iewed manually Nucleated RBC (Bld) [#/Vol] 0.00 10*3/uL [facility] Nucleated RBC/100 WBC (Bld) [Ratio] 0.0 % [facility] Platelet mean volume (Bld) [Entitic vol] 11.5 fL 9 - 15.5 fL [facility] Platelets (Bld) [#/Vol] 330 10*3/uL [facility] RBC (Bld) [#/Vol] 3.74 10*6/uL [facility] ealth WBC (Bld) [#/Vol] 22.90 10*3/uL [facility] CT Abdomen Pelvis Without Co ntraston 11-06-2018 Interface, Rad In Fu ji Speechq - 11/06/2018 2:37 AM EDT CLINICAL HISTORY: Right CVA tenderness, urinary tract infection. EXAMINATION: UNENHANCED CT SCAN OF THE ABDOMEN AND PELVIS 11/06/2018 COMPARISON: None. TECHNIQUE: 3 mm axial images from lung bases through ischial tuberosities without intravenous or oral contrast were obtained. Sagittal, coronal reconstructions were performed. Dose reduction techniques were achieved by using automated exposure control and/or adjustment of mA and/or kV according to patient size and/or use of iterative reconstruction technique. FINDINGS: The visualized lung bases are normal. The visualized cardiac, posterior mediastinal structures appear normal. CT ABDOMEN: For a noncontrast study the liver, gallbladder, pancreas, adrenal glands, kidneys appear normal. 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 Abdominal aorta has normal caliber. There is mild haziness surrounding the right kidney. The small- and large-bowel loops are of normal caliber. There is a normal-appearing appendix. CT PELVIS: There is no ureterolithiasis. There is no pelvic, retroperitoneal adenopathy. There are no focal fluid collections. Visualized osseous structures demonstrate no gross abnormalities. IMPRESSION: 1. There is some perinephric fat stranding involving the right kidney which could be a nonspecific finding, however underlying pyelonephritis would be a consideration. 2. No nephro- or ureterolithiasis. 3. Normal-appearing appendix. [employer] Workstation ID: [id number] [facility] CLINICAL HISTORY: Ri ght CVA tenderness, urinary tract infection. EXAMINATION: UNENHANCED CT SCAN OF THE ABDOMEN AND PELVIS 11/06/2018 COMPARISON: None. TECHNIQUE: 3 mm axial images from lung bases through ischial tuberosities without intravenous or oral contrast were obtained. Sagittal, coronal reconstructions were performed. Dose reduction techniques were achieved by using automated exposure control and/or adjustment of mA and/or kV according to patient size and/or use of iterative reconstruction technique. FINDINGS: The visualized lung bases are normal. The visualized cardiac, posterior mediastinal structures appear normal. CT ABDOMEN: For a noncontrast study the liver, gallbladder, pancreas, adrenal glands, kidneys appear normal. 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 Abdominal aorta has normal caliber. There is mild haziness surrounding the right kidney. The small- and large-bowel loops are of normal caliber. There is a normal-appearing appendix. CT PELVIS: There is no ureterolithiasis. There is no pelvic, retroperitoneal adenopathy. There are no focal fluid collections. Visualized osseous structures demonstrate no gross abnormalities. [facility] 1. There is some perinephric fat stranding involving the right kidney which could be a nonspecific finding, however underlying pyelonephritis would be a consideration. 2. No nephro- or ureterolithiasis. 3. Normal-appearing appendix. [employer] Workstation ID: [id number] [facility] Hemoglobin A1con 11-06-2018 Average glucose Estimated from glycated hemoglobin mass conc (Bld) 94 mg/dL 68 - 114 mg/dL [facility] HbA1c (Bld) [Mass fraction] 4.9 % 4 - 5.6 % [facility] Comment on above: Normal: 4.0% - 5.6% Increased risk for diabetes: 5.7% - 6.4% Diabetes: >= 6.5% Pediatrics: No established reference range Estimated average glucose: 68-114 mg/dL Please note: Reference intervals were changed as of 07/31/2018 to align with current [place] [employer] guidelines Interpretation and review of laboratory results Normal [facility] MORPHOLOGYon 11-06-2018 Anisocytosis Ql (Bld) 1+ [facility] [place] cells LM Ql (Bld) Rare [facility] Anisocytosis Ql (Bld) 1+ [facility] [place] cells LM Ql (Bld) Rare [facility] [place] bodies LM Ql (Bld) Rare [facility] Magnesium Levelon 11-06-2018 Interpretation and review of laboratory results Normal [facility] Magnesium [Mass/Vol] 2.1 mg/dL 1.6 - 2 .4 mg/dL [facility] Manual Differentialon 2018 Band form neutrophils/100 WBC (Bld) 0.0 % [facility] Basophils (Bld) [#/Vol] 0.00 10*3/uL [facility] Basophils/100 WBC (Bld) 0.0 % [facility] Blasts Manual cnt (Bld) [#/Vol] 0.00 [facility] Blasts/100 WBC (Bld) 0.0 % [facility] Eosinophils (Bld) [#/Vol] 0.38 10*3/uL [facility] Eosinophils/100 WBC (Bld) 1.8 % [facility] Lymphocytes (Bld) [#/Vol] 7.25 10*3/uL High [facility] Lymphocytes/100 WBC (Bld) 34.2 % [facility] Metamyelocytes/100 WBC (Bld) 0.0 % [facility] Monocytes (Bld) [#/Vol] 4.20 10*3/uL High [facility] Monocytes/100 WBC (Bld) 19.8 % [facility] Myelocytes/100 WBC (Bld) 0.0 % [facility] Neutrophils (Bld) [#/Vol] 9.34 10*3/uL High [facility] Neutrophils/100 WBC (Bld) 44.1 % [facility] Other cells Manual cnt (Bld) [#/Vol] 0.00 [facility] Other cells/100 WBC Manual cnt (Bld) 0.0 % [facility] Plasma cells (Bld) [#/Vol] 0.00 10*3/uL [facility] Plasma cells/100 WBC (Bld) 0.0 % [facility] Promyelocytes/100 WBC (Bld) 0.0 % [facility] Variant lymphocytes/100 WBC (Bld) 0.0 % [facility] Otheron 11-06-2018 Interpretation and review of laboratory results Abnormal [facility] hCG Urine, Qualitativeon HCG ( test) Ql (U) Negative Negative [facility] Interpretation and review of laboratory results Normal [facility] C Urineon 11-05-2018 C Urine Final Report: >100,0 00 cfu/ml Escherichia coli ORGANISM: EC SUSCEPTIBILITY RESULTS Antibiotic HUMERA Dilutn HUMERA Interp ORGANISM: EC Amox/Cla : <=8/4 S Amp : >16 R Amp/Sul : 16/8 I Cefaz : <=8 S Cefo : <=2 S Cipro : <=1 S Gent : <=4 S Levo : <=2 S Jennifer : <=1 S Nitro : <=32 S Pip/Raj : <=16 S Tetra : <=4 S Tobra : <=4 S SXT : >2/[address] [facility] Comment on above: Performed By: #### [id number] #### DAYANNA Microbiology Subsection [address] [place] [address] CBC WITH AUTO DIFFERENTIALon 11-05-2018 Basophils (Bld) [#/Vol] 0.09 10*3/uL [facility] Basophils/100 WBC (Bld) 0.3 % [facility] Eosinophils (Bld) [#/Vol] 0.01 10*3/uL [facility] Eosinophils/100 WBC (Bld) 0.0 % [facility] Erythrocyte distribution width (RBC) [Entitic vol] 15.1 % High 11.6 - 14.8 % [facility] Hematocrit (Bld) [Volume fraction] 41.8 % 36 - 46 % [facility] Hemoglobin (Bld) [Mass/Vol] 13.7 g/dL 12 - 16 g/dL [facility] Immature granulocytes (Bld) [#/Vol] 0.15 10*3/uL [facility] Immature granulocytes/100 WBC (Bld) 0.50 % [facility] Comment on above: The IG parameter is the percentage of metamyelocytes, myelocytes, and promyelocytes. Interpretation and review of laboratory results Abnormal [facility] Lymphocytes (Bld) [#/Vol] 3.13 10*3/uL [facility] Lymphocytes/100 WBC (Bld) 11.1 % [facility] MCH (RBC) [Entitic mass] 29.8 pg 25 - 35 pg [facility] MCHC (RBC) [Mass/Vol] 32.8 g/dL 31 - 37 g/dL [facility] MCV (RBC) [Entitic vol] 90.9 fL 78 - 102 fL [facility] Monocytes (Bld) [#/Vol] 2.97 10*3/uL High [facility] Monocytes/100 WBC (Bld) 10.6 % [facility] Neutrophils (Bld) [#/Vol] 21.75 10*3/uL High [facility] Neutrophils/100 WBC (Bld) 77.5 % [facility] Comment on above: Peripheral smear rev iewed manually Nucleated RBC (Bld) [#/Vol] 0.00 10*3/uL [facility] Nucleated RBC/100 WBC (Bld) [Ratio] 0.0 % [facility] Platelet mean volume (Bld) [Entitic vol] 11.4 fL 9 - 15.5 fL [facility] Platelets (Bld) [#/Vol] 373 10*3/uL [facility] RBC (Bld) [#/Vol] 4.60 10*6/uL [facility] ealth WBC (Bld) [#/Vol] 28.10 10*3/uL High [facility] Comprehensive Metabolic Pane elyse 11-05-2018 Albumin [Mass/Vol] 3.7 g/dL 3.2 - 4.5 g/dL [facility] ALP [Catalytic activity/Vol] 89 U/L 40 - 140 U/L [facility] ALT [Catalytic activity/Vol] 19 U/L 14 - 65 U/L [facility] Anion gap [Moles/Vol] 13 mmol/L 10 - 2 0 mmol/L [facility] AST [Catalytic activity/Vol] 8 U/L 0 - 45 U/L [facility] Bilirubin [Mass/Vol] 0.5 mg/dL 0 - 1.3 mg/dL [facility] Calcium [Mass/Vol] 9.1 mg/dL 8.4 - 10. 2 mg/dL [facility] Chloride [Moles/Vol] 106 mmol/L 98 - 10 8 mmol/L [facility] Creatinine [Mass/Vol] 0.79 mg/dL 0.5 - 1 mg/dL [facility] GFR/1.73 sq M predicted among non-blacks MDRD (S/P/Bld) [Vol rate/Area] The eGFR should be used for monitoring renal function only and not for medication dosing. [facility] GFR/1.73 sq M.predicted CKD-EPI (S/P/Bld) [Vol rate/Area] 110 >=60 mL/min/1.73 m2 [facility] Glucose [Mass/Vol] 113 mg/dL High 65 - 99 mg/dL [facility] HCO3 [Moles/Vol] 20 mmol/L Low 21 - 32 mmol/L [facility] Interpretation and review of laboratory results Abnormal [facility] Potassium [Moles/Vol] 3.4 mmol/L Low 3.5 - 5.1 mmol/L [facility] Protein [Mass/Vol] 8.1 g/dL High 6 - 8 g/dL [facility] alth Sodium [Moles/Vol] 136 mmol/L 135 - 145 mmol/L [facility] Urea nitrogen [Mass/Vol] 7 mg/dL Low 8 - 25 mg/dL [facility] Urea nitrogen/Creatinine [Mass ratio] 8.9 mg/mg Low [facility] Lactic Acid, Plasmaon 2018 Interpretation and review of laboratory results Normal [facility] Lactate [Moles/Vol] 1.9 mmol/L 0.6 - 2 mmol/L [facility] MORPHOLOGYon 11-05-2018 RBC morphology finding Nom (Bld) Normal [facility] POC Venous Blood Gas Panel-P ulmon 11-05-2018 Base excess Calc (BldV) [Moles/Vol] -1.7 mmol/L [facility] Breath rate setting Ventilator synchronized intermittent mandatory 0 [facility] Calcium.ionized [Mass/Vol] 4.8 mg/dL 4.5 - 5.3 mg/dL [facility] Carboxyhemoglobin (BldA) [Mass fraction] 1.9 High [facility] Comment on above: Reference Ranges: [facility] Non-smokers: <1.5% Smokers: 1.5-5.0% Heavy Smokers: 5.0-9.0% Chloride [Moles/Vol] 105 mmol/L 98 - 10 8 mmol/L [facility] CO2 (BldV) [Partial pressure] 35.7 mm[Hg] Low [facility] Glucose [Mass/Vol] 117 mg/dL High 65 - 99 mg/dL [facility] HCO3 (Bld) [Moles/Vol] 22.5 mmol/L Low 24 - 28 mmol/L [facility] Hematocrit (BldA) [Volume fraction] 44.5 % 36 - 46 % [facility] Hemoglobin (Bld) [Mass/Vol] 14.5 g/dL 12 - 16 g/dL [facility] Inhaled oxygen concentration 21 % [facility] Interpretation and review of laboratory results Abnormal [facility] Lactate [Moles/Vol] 1.7 mmol/L 0.6 - 2 mmol/L [facility] Methemoglobin (BldA) [Mass fraction] 1.2 % 0 - 2 % [facility] Oxygen (BldV) [Partial pressure] 33 mm[Hg] [facility] Oxygen saturation in Venous blood 65.8 % [facility] Oxyhemoglobin (BldA) [Mass fraction] 63.8 % Low 94 - 98 % [facility] pH (BldV) 7.41 [pH] [facility] Potassium [Moles/Vol] 3.4 mmol/L Low 3.5 - 5.1 mmol/L [facility] Sodium [Moles/Vol] 137 mmol/L 135 - 145 mmol/L [facility] Specimen source Nom (Unsp spec) Not specified [facility] Tidal volume setting Ventilator 0 [facility] URINALYSISon 11-05-2018 Bacteria Auto Ql (U) Rare Abnormal None Se en /hpf [facility] Bilirubin Ql (U) Negative Negative [facility] Cl[facility] Refractometry automated (U) Hazy Abnormal Clear [facility] Color (U) Yellow Colorless, Yellow [facility] Epithelial cells.squamous Auto (Urine sed) [#/Area] 7 High [facility] Glucose Auto test strip (U) [Mass/Vol] Negative Negative mg/dL [facility] Hemoglobin Auto test strip Ql (U) Negative Negative [facility] Interpretation and review of laboratory results Abnormal [facility] Ketones (U) [Mass/Vol] 20 Abnormal Negative mg/dL [facility] Leukocyte esterase Auto test strip Ql (U) Trace Abnormal Negative [facility] Mucus Auto (Urine sed) [#/Area] Rare None Seen, Rare /lpf [facility] Nitrite Auto test strip Ql (U) Negative Negative [facility] pH (U) 5.0 [pH] [facility] Protein (U) [Mass/Vol] 30 Abnormal Negative mg/dL [facility] Comment on above: False positive resul ts may occur in urines with large amounts of hemoglobin, pH greater than 8.0, contrast medium, or disinfectants including ammonium compounds. RBC Auto (Urine sed) [#/Area] 6 High [facility] Specific gravity (U) [Rel density] 1.018 [facility] Transitional cells Computer assisted (U) [#/Area] <1 [facility] Urobilinogen (U) [Mass/Vol] >=4.0 Abnormal <2.0 mg/dL [facility] WBC Auto (Urine sed) [#/Area] 25 High [facility] Microscopic examinat ion is performed on all urinalysis samples and only positive findings are reported. The test for blood on the chemical analytic portion of urinalysis may also be positive due to hemoglobinuria and myoglobinuria and if red blood cells are present they are quantified by microscopic examination. [facility] XR Chest 1 Viewon 11-05-2018 EXAMINATION: XR CHES T PA/AP HISTORY: ORDERING SYSTEM PROVIDED HISTORY: FEVER, TECHNOLOGIST PROVIDED HISTORY: Reason for exam: FEVER Illness/Other Cancer History: UNKN Surgery, RadiationHistory: UNKN Encounter Type: Initial Additional signs and symptoms: FLANK PAIN ORDERING SYSTEM PROVIDED DIAGNOSIS CODES: COMPARISON: None. FINDINGS: One view chest x-ray. No pneumothorax, pleural effusion or focal airspace consolidation. Heart is normal in size. Bony thorax is unremarkable. [facility] No acute cardiopulmo nary process. [employer] Workstation ID: [id number] [facility] Interface, Rad In Balbir Cruzq - 11/05/2018 6:24 PM EDT EXAMINATION: XR CHEST PA/AP HISTORY: ORDERING SYSTEM PROVIDED HISTORY: FEVER, TECHNOLOGIST PROVIDED HISTORY: Reason for exam: FEVER Illness/Other Cancer History: UNKN Surgery, RadiationHistory: UNKN Encounter Type: Initial Additional signs and symptoms: FLANK PAIN ORDERING SYSTEM PROVIDED DIAGNOSIS CODES: COMPARISON: None. FINDINGS: One view chest x-ray. No pneumothorax, pleural effusion or focal airspace consolidation. Heart is normal in size. Bony thorax is unremarkable. IMPRESSION: No acute cardiopulmonary process. [employer] Workstation ID: [id number] [facility] Vital Signs Date Time Vital Sign Value Performing Clinician Facility 01-07-2025 11:24-0400 Body height 162.[address] Mimi Thomas DO Work Phone: [facility] 01-07-2025 11:24-0400 Body mass index (BMI) [Ratio] 25.7 kg/m2 Dr. Mimi Thomas DO Work Phone: [facility] 01-07-2025 11:24-0400 Body weight 68.[address] Mimi Thomas DO Work Phone: [facility] 01-07-2025 11:24-0400 Diastolic blood pressure 88 mm[Hg] Dr. Mimi Thomas DO Work Phone: [facility] 01-07-2025 11:24-0400 Systolic blood pressure 134 mm[Hg] Dr. Mimi Thomas DO Work Phone: [facility] 12-30-2024 14:13-0400 Body height 162.[address] Mimi Thomas DO Work Phone: [facility] 12-30-2024 14:13-0400 Body mass index (BMI) [Ratio] 25.7 kg/m2 Dr. Mimi Thomas DO Work Phone: [facility] 12-30-2024 14:13-0400 Body weight 68.[address] Mimi Thomas DO Work Phone: [facility] 12-30-2024 14:13-0400 Diastolic blood pressure 86 mm[Hg] Dr. Mimi Thomas DO Work Phone: [facility] 12-30-2024 14:13-0400 Systolic blood pressure 128 mm[Hg] Dr. Mimi Thomas DO Work Phone: [facility] 12-23-2024 15:26-0400 Body height 162.[address] Mimi Thomas DO Work Phone: [facility] 12-23-2024 15:26-0400 Body mass index (BMI) [Ratio] 25.6 kg/m2 Dr. Mimi Thomas DO Work Phone: [facility] 12-23-2024 15:26-0400 Body weight 67.[address] Mimi Thomas DO Work Phone: [facility] 12-23-2024 15:26-0400 Diastolic blood pressure 82 mm[Hg] Dr. Mimi Thomas DO Work Phone: [facility] 12-23-2024 15:26-0400 Systolic blood pressure 118 mm[Hg] Dr. Mimi Thomas DO Work Phone: [facility] 12-15-2024 09:36-0400 Body height 162.[address] Mimi Thomas DO Work Phone: [facility] 12-15-2024 09:36-0400 Body mass index (BMI) [Ratio] 26.1 kg/m2 Dr. Mimi Thomas DO Work Phone: [facility] 12-15-2024 09:36-0400 Body weight 68.[address] Mimi Thomas DO Work Phone: [facility] 12-15-2024 09:36-0400 Diastolic blood pressure 82 mm[Hg] Dr. iMmi Thomas DO Work Phone: [facility] 12-15-2024 09:36-0400 Systolic blood pressure 125 mm[Hg] Dr. Mimi Thomas DO Work Phone: [facility] 12-09-2024 09:30-0400 Body height 162.[address] Mimi Thomas DO Work Phone: [facility] 12-09-2024 09:26-0400 Body mass index (BMI) [Ratio] 25.4 kg/m2 Dr. Mimi Thomas DO Work Phone: [facility] 12-09-2024 09:26-0400 Body weight 67.[address] Mimi Thomas DO Work Phone: [facility] 12-09-2024 09:26-0400 Diastolic blood pressure 76 mm[Hg] Dr. Mimi Thomas DO Work Phone: [facility] 12-09-2024 09:26-0400 Systolic blood pressure 127 mm[Hg] Dr. Mimi Thomas DO Work Phone: [facility] 11-25-2024 09:57-0400 Body height 162.[address] Mimi Thomas DO Work Phone: [facility] 11-25-2024 09:57-0400 Body mass index (BMI) [Ratio] 25 kg/m2 Dr. Mimi Thomas DO Work Phone: [facility] 11-25-2024 09:57-0400 Body weight 66.[address] Mimi Thomas DO Work Phone: [facility] 11-25-2024 09:57-0400 Diastolic blood pressure 82 mm[Hg] Dr. Mimi Thomas DO Work Phone: [facility] 11-25-2024 09:57-0400 Systolic blood pressure 112 mm[Hg] Dr. Mimi Thomas DO Work Phone: [facility] 11-11-2024 09:33-0400 Body height 162.[address] Mimi Thomas DO Work Phone: [facility] 11-11-2024 09:33-0400 Body mass index (BMI) [Ratio] 24.7 kg/m2 Dr. Mimi Thomas DO Work Phone: [facility] 11-11-2024 09:33-0400 Body weight 65.[address] Mimi Thomas DO Work Phone: [facility] 11-11-2024 09:33-0400 Diastolic blood pressure 76 mm[Hg] Dr. Mimi Thomas DO Work Phone: [facility] 11-11-2024 09:33-0400 Systolic blood pressure 117 mm[Hg] Dr. Mimi Thomas DO Work Phone: [facility] 10-27-2024 09:21-0400 Body mass index (BMI) [Ratio] 24.3 kg/m2 Dr. Mimi Thomas DO Work Phone: [facility] 10-27-2024 09:21-0400 Body weight 64.[address] Mimi Thomas DO Work Phone: [facility] 10-27-2024 09:21-0400 Diastolic blood pressure 73 mm[Hg] Dr. Mimi Thomas DO Work Phone: [facility] 10-27-2024 09:21-0400 Systolic blood pressure 119 mm[Hg] Dr. Mimi Thomas DO Work Phone: [facility] 10-15-2024 09:57-0400 Body height 162.[address] Mimi Thomas DO Work Phone: [facility] 10-15-2024 09:55-0400 Body mass index (BMI) [Ratio] 23.7 kg/m2 Dr. Mimi Thomas DO Work Phone: [facility] 10-15-2024 09:55-0400 Body weight 62.[address] Mimi Thomas DO Work Phone: [facility] 10-13-2024 13:58-0400 Body mass index (BMI) [Ratio] 23.6 kg/m2 Dr. Mimi Thomas DO Work Phone: [facility] 10-13-2024 13:58-0400 Body weight 62.[address] Mimi Thomas DO Work Phone: [facility] 10-13-2024 13:58-0400 Diastolic blood pressure 71 mm[Hg] Dr. Mimi Thomas DO Work Phone: [facility] 10-13-2024 13:58-0400 Systolic blood pressure 108 mm[Hg] Dr. Mimi Thomas DO Work Phone: [facility] 10-12-2024 10:19-0400 Body height 162.6 cm Sandra Church CNP Work Phone: [facility] 10-12-2024 10:19-0400 Body mass index (BMI) [Ratio] 22.31 kg/m2 Sandra Church CNP Work Phone: [facility] 10-12-2024 10:19-0400 Body temperature 98.71 [degF] Sandra Chucrh CNP Work Phone: [facility] 10-12-2024 10:19-0400 Body weight 58.97 kg Sandra Church CNP Work Phone: [facility] 10-12-2024 10:19-0400 Diastolic blood pressure 70 mm[Hg] Sandra Church CNP Work Phone: [facility] 10-12-2024 10:19-0400 Heart rate 98 /min Sandra Church [employer] Work Phone: [facility] 10-12-2024 10:19-0400 Respiratory rate 15 /min Sandra Church [employer] Work Phone: [facility] 10-12-2024 10:19-0400 SaO2% (BldA) [Mass fraction] 96 % Sandra Church [employer] Work Phone: [facility] 10-12-2024 10:19-0400 Systolic blood pressure 107 mm[Hg] Sandra Church [employer] Work Phone: [facility] 09-23-2024 07:54-0400 Body temperature 99.3 [degF] Kassi Ontiveros CNM Work Phone: [facility] 09-23-2024 07:54-0400 Respiratory rate 12 /min Kassi Ontiveros CNM Work Phone: [facility] 09-23-2024 07:54-0400 SaO2% (BldA) [Mass fraction] 100 % Kassi Ontiveros CNM Work Phone: [facility] 09-23-2024 07:48-0400 Diastolic blood pressure 60 mm[Hg] Kassi Ontiveros CNM Work Phone: [facility] 09-23-2024 07:48-0400 Heart rate 80 /min Kassi Ontiveros CNM Work Phone: [facility] 09-23-2024 07:48-0400 Systolic blood pressure 109 mm[Hg] Kassi Ontiveros CNM Work Phone: [facility] 09-22-2024 17:21-0400 Body height 162.56 cm Kassi Ontiveros CNM Work Phone: [facility] 09-22-2024 17:21-0400 Body mass index (BMI) [Ratio] 22.8 kg/m2 Kassi Ontiveros CNM Work Phone: [facility] 09-22-2024 17:21-0400 Body weight 60.32 kg Kassi Ontiveros CN Work Phone: [facility] 09-22-2024 12:10-0400 Body height 162.6 cm Jamari Delgadillo MD Work Phone: [facility] 09-22-2024 12:10-0400 Body mass index (BMI) [Ratio] 23.34 kg/m2 Jamari Delgadillo MD Work Phone: [facility] 09-22-2024 12:10-0400 Body temperature 98.91 [degF] Jamari Delgadillo MD Work Phone: [facility] 09-22-2024 12:10-0400 Body weight 61.69 kg Jamari Delgadillo MD Work Phone: [facility] 09-22-2024 12:10-0400 Diastolic blood pressure 64 mm[Hg] Jamari Delgadillo MD Work Phone: [facility] 09-22-2024 12:10-0400 Heart rate 82 /min Jamari Delgadillo MD Work Phone: [facility] 09-22-2024 12:10-0400 Respiratory rate 16 /min Jamari Delgadillo MD Work Phone: [facility] 09-22-2024 12:10-0400 SaO2% (BldA) [Mass fraction] 99 % Jamari Delgadillo MD Work Phone: [facility] 09-22-2024 12:10-0400 Systolic blood pressure 107 mm[Hg] Jamari Delgadillo MD Work Phone: [facility] 09-22-2024 08:36-0400 Body mass index (BMI) [Ratio] 23.6 kg/m2 Kassi MESSER Work Phone: [facility] 09-22-2024 08:36-0400 Body weight 62.25 kg Kassishannan MESSER Work Phone: [facility] 09-22-2024 08:36-0400 Diastolic blood pressure 60 mm[Hg] Kassi Ontiveros CNM Work Phone: [facility] 09-22-2024 08:36-0400 Systolic blood pressure 98 mm[Hg] Kassi Ontiveros CNM Work Phone: [facility] 08-26-2024 09:26-0500 Body mass index (BMI) [Ratio] 22.1 kg/m2 Kassi Ontiveros CNM Work Phone: [facility] 08-26-2024 09:26-0500 Body weight 58.51 kg Kassi Otniveros CNM Work Phone: [facility] 08-26-2024 09:26-0500 Diastolic blood pressure 62 mm[Hg] Kassi Ontiveros CNM Work Phone: [facility] 08-26-2024 09:26-0500 Systolic blood pressure 108 mm[Hg] Kassi Ontiveros CNM Work Phone: [facility] 08-08-2024 22:31-0500 Body height 162.6 cm [facility]illo [facility] 08-08-2024 22:31-0500 Body mass index (BMI) [Ratio] 21.63 kg/m2 Jamari Del[facility]adillo MD [facility] 08-08-2024 22:31-0500 Body temperature 98.2 [degF] Jam[facility]illo MD [facility] 08-08-2024 22:31-0500 Body weight 57.15 kg Jamari Del[facility]adillo MD [facility] 08-08-2024 22:31-0500 Diastolic blood pressure 76 mm[Hg] Jam[facility]adillo MD [facility] 08-08-2024 22:31-0500 Heart rate 76 /min Jamari Delgadillo MD Work Phone: [facility] 08-08-2024 22:31-0500 Respiratory rate 18 /min Jamari Delgadillo MD Work Phone: [facility] 08-08-2024 22:31-0500 SaO2% (BldA) [Mass fraction] 100 % Jamari Delgadillo MD Work Phone: [facility] 08-08-2024 22:31-0500 Systolic blood pressure 118 mm[Hg] Jamari Delgadillo MD Work Phone: [facility] 07-28-2024 08:56-0500 Body mass index (BMI) [Ratio] 21.8 kg/m2 Kassi Ontiveros CNM Work Phone: [facility] 07-28-2024 08:56-0500 Body weight 57.6 kg Kassi Ontiveros CNM Work Phone: [facility] 07-28-2024 08:56-0500 Diastolic blood pressure 70 mm[Hg] Kassi Ontiveros CNM Work Phone: [facility] 07-28-2024 08:56-0500 Systolic blood pressure 112 mm[Hg] Kassi Ontiveros CNM Work Phone: [facility] 07-01-2024 09:26-0500 Body mass index (BMI) [Ratio] 21.3 kg/m2 Kassi Ontiveros CNM Work Phone: [facility] 07-01-2024 09:26-0500 Body weight 56.41 kg Kassi Ontiveros CNM Work Phone: [facility] 07-01-2024 09:26-0500 Diastolic blood pressure 61 mm[Hg] Kassi Ontiveros CNM Work Phone: [facility] 07-01-2024 09:26-0500 Systolic blood pressure 107 mm[Hg] Kassi Ontiveros CNM Work Phone: [facility] 05-29-2024 11:19-0500 Body mass index (BMI) [Ratio] 21.4 kg/m2 Kassi Ontiveros CNM Work Phone: [facility] 05-29-2024 11:19-0500 Body weight 56.81 kg Kassi Ontiveros CNM Work Phone: [facility] 05-29-2024 11:19-0500 Diastolic blood pressure 76 mm[Hg] Kassi Ontiveros CNM Work Phone: [facility] 05-29-2024 11:19-0500 Systolic blood pressure 127 mm[Hg] Kassi Ontiveros CNM Work Phone: [facility] 03-07-2023 17:56-0400 Body height 162 cm [employer] Other Phone: [facility] 03-07-2023 17:56-0400 Body temperature 97.88 [degF] [employer] Other Phone: [facility] 03-07-2023 17:56-0400 Diastolic blood pressure 73 mm[Hg] [facility] Other Phone: [facility] 03-07-2023 17:56-0400 Heart rate 84 /min [employer] Other Phone: [facility] 03-07-2023 17:56-0400 Respiratory rate 16 /min [employer] Other Phone: [facility] 03-07-2023 17:56-0400 SaO2% (BldA) [Mass fraction] 97 % [employer] Other Phone: [facility] 03-07-2023 17:56-0400 Systolic blood pressure 110 mm[Hg] [facility] Other Phone: [facility] 11-20-2022 13:19-0400 Body height 162.5 cm [facility] Other Phone: [facility] 11-20-2022 13:19-0400 Body temperature 98.24 [degF] [employer] Other Phone: [facility] 11-20-2022 13:19-0400 Diastolic blood pressure 73 mm[Hg] Jennifer Spring Other Phone: [facility] 11-20-2022 13:19-0400 Heart rate 99 /min Jennifer Spring Other Phone: [facility] 11-20-2022 13:19-0400 Respiratory rate 14 /min Jennifer Spring Other Phone: [facility] 11-20-2022 13:19-0400 SaO2% (BldA) [Mass fraction] 97 % Jennifer Spring Other Phone: [facility] 11-20-2022 13:19-0400 Systolic blood pressure 115 mm[Hg] Jennifer Spring Other Phone: [facility] 11-01-2022 11:09-0400 Body height 162 cm Jennifer Spring Other Phone: [facility] 11-01-2022 11:09-0400 Body temperature 97.88 [degF] Jennifer Spring Other Phone: [facility] 11-01-2022 11:09-0400 Diastolic blood pressure 75 mm[Hg] Jennifer Spring Other Phone: [facility] 11-01-2022 11:09-0400 Heart rate 74 /min Jennifer Spring Other Phone: [facility] 11-01-2022 11:09-0400 SaO2% (BldA) [Mass fraction] 97 % Jennifer Spring Other Phone: [facility] 11-01-2022 11:09-0400 Systolic blood pressure 113 mm[Hg] Jennifer Spring Other Phone: [facility] 10-18-2022 16:14-0400 Body height 162.6 cm Mary Romero [employer] Work Phone: [facility] 10-18-2022 16:14-0400 Body mass index (BMI) [Ratio] 18.88 kg/m2 Mary Romero [employer] Work Phone: [facility] 10-18-2022 16:14-0400 Body temperature 98.49 [degF] Mary Romero [employer] Work Phone: [facility] 10-18-2022 16:14-0400 Body weight 49.9 kg Mary Romero [employer] Work Phone: [facility] 10-18-2022 16:14-0400 Diastolic blood pressure 71 mm[Hg] Mary Romero [employer] Work Phone: [facility] 10-18-2022 16:14-0400 Heart rate 80 /min Mary Romero [employer] Work Phone: [facility] 10-18-2022 16:14-0400 Respiratory rate 14 /min Mary Romero [employer] Work Phone: [facility] 10-18-2022 16:14-0400 SaO2% (BldA) [Mass fraction] 97 % Mary Romero [employer] Work Phone: [facility] 10-18-2022 16:14-0400 Systolic blood pressure 107 mm[Hg] Mary Romero [employer] Work Phone: [facility] 10-18-2022 14:41-0400 Body height 162.6 cm Verenice Bharath PA-C Work Phone: [facility] Comment on above: pt reported 10-18-2022 14:41-0400 Body mass index (BMI) [Ratio] 18.88 kg/m2 Verenice Bharath PA-C Work Phone: [facility] 10-18-2022 14:41-0400 Body weight 49.9 kg Verenice Bharath PA-C Work Phone: [facility] Comment on above: pt reported 01-27-2022 19:09-0400 Diastolic blood pressure 44 mm[Hg] [facility] 01-27-2022 19:09-0400 Heart rate 63 /min [facility] 01-27-2022 19:09-0400 Mean blood pressure 62 mm[Hg] [facility] 01-27-2022 19:09-0400 Respiratory rate 13 /min [facility] 01-27-2022 19:09-0400 SaO2% (BldA) [Mass fraction] 100 % [facility] 01-27-2022 19:09-0400 Systolic blood pressure 98 mm[Hg] [facility] 01-27-2022 18:00-0400 Diastolic blood pressure 61 mm[Hg] [facility] 01-27-2022 18:00-0400 Heart rate 71 /min [facility] 01-27-2022 18:00-0400 Mean blood pressure 76 mm[Hg] [facility] 01-27-2022 18:00-0400 Respiratory rate 11 /min [facility] 01-27-2022 18:00-0400 Systolic blood pressure 107 mm[Hg] [facility] 01-27-2022 17:00-0400 Diastolic blood pressure 59 mm[Hg] [facility] 01-27-2022 17:00-0400 Heart rate 78 /min [facility] 01-27-2022 17:00-0400 Mean blood pressure 72 mm[Hg] [facility] 01-27-2022 17:00-0400 SaO2% (BldA) [Mass fraction] 99 % [facility] 01-27-2022 17:00-0400 Systolic blood pressure 99 mm[Hg] [facility] 01-27-2022 16:04-0400 Body temperature 98.24 [degF] [facility] 01-27-2022 16:04-0400 Heart rate 73 /min [facility] 01-27-2022 16:04-0400 Respiratory rate 18 /min [facility] 12-31-2021 18:37-0400 Body temperature 97.88 [degF] Ji Sydney [facility] 12-31-2021 18:37-0400 Diastolic blood pressure 64 mm[Hg] Ji Sydney [facility] 12-31-2021 18:37-0400 Heart rate 79 /min Ji Sydney [facility] 12-31-2021 18:37-0400 Respiratory rate 18 /min Ji Sydney [facility] 12-31-2021 18:37-0400 SaO2% (BldA) [Mass fraction] 99 % Ji Sydney [facility] 12-31-2021 18:37-0400 Systolic blood pressure 110 mm[Hg] Ji Sydney [facility] 11-06-2020 02:56-0400 Diastolic blood pressure 71 mm[Hg] Jennifer Spring Other Phone: [facility] 11-06-2020 02:56-0400 Heart rate 72 /min Jennifer Spring Other Phone: [facility] 11-06-2020 02:56-0400 Respiratory rate 16 /min Jennifer Spring Other Phone: [facility] 11-06-2020 02:56-0400 SaO2% (BldA) [Mass fraction] 98 % Jennifer Spring Other Phone: [facility] 11-06-2020 02:56-0400 Systolic blood pressure 110 mm[Hg] Jennifer Spring Other Phone: [facility] 02-05-2020 09:13-0400 BP Diastolic 77 mm[Hg] [facility] 02-05-2020 09:13-0400 BP Systolic 115 mm[Hg] [facility] 02-05-2020 09:13-0400 Pulse (Heart Rate) 84 /min [facility] 02-05-2020 09:11-0400 BMI (Body Mass Index) 18.02 kg/m2 [facility] 02-05-2020 09:11-0400 Body weight 47.63 kg [facility] 02-05-2020 09:11-0400 Height 162.[address] [facility] 02-05-2020 09:11-0400 Pulse Oximetry 98 % [facility] 02-05-2020 09:11-0400 Respiratory Rate 16 /min [facility] 12-31-2019 11:07-0400 BMI (Body Mass Index) 18.28 kg/m2 [facility] 12-31-2019 11:07-0400 Body Temperature 98.2 [degF] [facility] 12-31-2019 11:07-0400 Body weight 48.31 kg [facility] 12-31-2019 11:07-0400 BP Diastolic 65 mm[Hg] [facility] 12-31-2019 11:07-0400 BP Systolic 100 mm[Hg] [facility] 12-31-2019 11:07-0400 Height 162.6 cm [facility] 12-31-2019 11:07-0400 Pulse (Heart Rate) 66 /min [facility] 12-31-2019 11:07-0400 Pulse Oximetry 96 % [facility] 12-31-2019 11:07-0400 Respiratory Rate 16 /min [facility] 12-29-2019 08:50-0400 BP Diastolic 76 mm[Hg] Chintan Ling [facility] 12-29-2019 08:50-0400 BP Systolic 100 mm[Hg] Chintan Ling [facility] 12-29-2019 08:49-0400 Pulse (Heart Rate) 96 /min Chintan Ling [facility] 12-29-2019 08:38-0400 BMI (Body Mass Index) 18.4 kg/m2 Chintan Ling [facility] 12-29-2019 08:38-0400 Body weight 48.63 kg Chintan Ling [facility] 12-29-2019 08:38-0400 Height 162.6 cm Chintan Ling [facility] 12-29-2019 08:38-0400 Pulse Oximetry 99 % Chintan Ling [facility] 12-23-2019 17:24-0400 BP Diastolic 58 mm[Hg] [facility] 12-23-2019 17:24-0400 BP Systolic 104 mm[Hg] [facility] 12-23-2019 17:24-0400 Pulse (Heart Rate) 60 /min [facility] 12-23-2019 17:24-0400 Respiratory Rate 18 /min [facility] 12-23-2019 16:45-0400 Pulse Oximetry 100 % [facility] 12-23-2019 14:25-0400 BMI (Body Mass Index) 18.37 kg/m2 [facility] 12-23-2019 14:25-0400 Body Temperature 98.2 [degF] [facility] 12-23-2019 14:25-0400 Body weight 48.53 kg [facility] 12-23-2019 14:25-0400 Height 162.6 cm [facility] 12-16-2019 19:15-0400 BMI (Body Mass Index) 18.37 kg/m2 [facility] [place] 12-16-2019 19:15-0400 Body Temperature 98.01 [degF] [facility] 12-16-2019 19:15-0400 Body weight 48.53 kg [facility] [place] 12-16-2019 19:15-0400 BP Diastolic 90 mm[Hg] [facility] [place] 12-16-2019 19:15-0400 BP Systolic 145 mm[Hg] [facility] [place] 12-16-2019 19:15-0400 Height 162.6 cm [facility] [place] 12-16-2019 19:15-0400 Pulse (Heart Rate) 70 /min [facility] [place] 12-16-2019 19:15-0400 Pulse Oximetry 100 % [facility] [place] 12-16-2019 19:15-0400 Respiratory Rate 16 /min [facility] [place] 03-02-2019 08:44-0400 BMI (Body Mass Index) 19.66 kg/m2 [facility] 03-02-2019 08:44-0400 Body Temperature 98.2 [degF] [facility] 03-02-2019 08:44-0400 Body weight 50.35 kg [facility] 03-02-2019 08:44-0400 BP Diastolic 61 mm[Hg] [facility] 03-02-2019 08:44-0400 BP Systolic 101 mm[Hg] [facility] 03-02-2019 08:44-0400 Pulse (Heart Rate) 66 /min [facility] 02-24-2019 09:16-0400 BP Diastolic 64 mm[Hg] [facility] 02-24-2019 09:16-0400 BP Systolic 106 mm[Hg] [facility] 02-24-2019 09:16-0400 Pulse (Heart Rate) 79 /min [facility] 02-24-2019 09:16-0400 Pulse Oximetry 100 % [facility] 02-24-2019 09:16-0400 Respiratory Rate 15 /min [facility] 02-24-2019 08:55-0400 Body Temperature 97.9 [degF] [facility] 02-24-2019 07:45-0400 BMI (Body Mass Index) 19.04 kg/m2 [facility] 02-24-2019 07:45-0400 Body weight 48.76 kg [facility] 02-24-2019 07:45-0400 Height 160 cm [facility] 02-04-2019 13:03-0400 BMI (Body Mass Index) 18.3 kg/m2 [facility] 02-04-2019 13:03-0400 Body Temperature 98.6 [degF] [facility] 02-04-2019 13:03-0400 Body weight 48.17 [facility] 02-04-2019 13:03-0400 BP Diastolic 70 mm[Hg] [facility] 02-04-2019 13:03-0400 BP Systolic 115 mm[Hg] [facility] 02-04-2019 13:03-0400 Height 162.3 cm [facility] 02-04-2019 13:03-0400 Pulse (Heart Rate) 90 /min [facility] 02-04-2019 13:03-0400 Pulse Oximetry 97 % [facility] 01-28-2019 03:54-0400 BP Diastolic 53 mm[Hg] Jeffrey Colon [facility] 01-28-2019 03:54-0400 BP Systolic 101 mm[Hg] Jeffrey Colon [facility] 01-28-2019 03:54-0400 Pulse (Heart Rate) 56 /min Jeffrey Colon [facility] 01-28-2019 03:54-0400 Pulse Oximetry 99 % Jeffrey Colon [facility] 01-28-2019 03:54-0400 Respiratory Rate 16 /min Jeffrey Colon [facility] 01-27-2019 23:04-0400 BMI (Body Mass Index) 18.37 kg/m2 Jeffrey Colon [facility] 01-27-2019 23:04-0400 Body weight 48.53 kg Jeffrey Colon [facility] 01-27-2019 23:04-0400 Height 162.6 cm Jeffrey Colon [facility] 01-27-2019 22:58-0400 Body Temperature 98.29 [degF] Jeffrey Colon [facility] 11-19-2018 11:27-0400 BMI (Body Mass Index) 18.71 kg/m2 [facility] 11-19-2018 11:27-0400 Body Temperature 98.4 [degF] [facility] 11-19-2018 11:27-0400 BP Diastolic 72 mm[Hg] [facility] 11-19-2018 11:27-0400 BP Systolic 109 mm[Hg] [facility] 11-19-2018 11:27-0400 Height 162.6 cm [facility] 11-19-2018 11:27-0400 Pulse (Heart Rate) 82 /min [facility] 11-19-2018 11:27-0400 Pulse Oximetry 98 % [facility] 11-19-2018 11:27-0400 Respiratory Rate 18 /min [facility] 11-19-2018 11:27-0400 Weight 49.44 kg [facility] 11-09-2018 08:45-0400 Respiratory Rate 12 /min [facility] 11-09-2018 08:39-0400 Body Temperature 98.2 [degF] [facility] 11-09-2018 08:39-0400 BP Diastolic 58 mm[Hg] [facility] 11-09-2018 08:39-0400 BP Systolic 96 mm[Hg] [facility] 11-09-2018 08:39-0400 Pulse (Heart Rate) 60 /min [facility] 11-09-2018 08:39-0400 Pulse Oximetry 98 % [facility] 11-05-2018 17:40-0400 BMI (Body Mass Index) 20.4 kg/m2 [facility] 11-05-2018 17:40-0400 Body weight 53.9 kg [facility] 11-05-2018 17:40-0400 Height 162.6 cm [facility] 11-05-2018 14:39-0400 Respiratory rate 0 /min [facility] Encounters Encounter Date Encounter Type Care Provider Facility Start: 01-07-2025 End: 01-07-[address] Mimi Thomas DO -[facility] Work Phone: Start: 01-07-2025 End: 01-07-[address] Mimi Thomas DO Work Phone: -[facility] Start: 12-30-2024 End: 12-30-[address] Mimi Thomas DO -[facility] Work Phone: Start: 12-30-2024 End: 12-30-[address] Mimi Thomas DO Work Phone: -[facility] Start: 12-23-2024 End: 12-23-[address] Mimi Thomas DO -[facility] Work Phone: Start: 12-23-2024 End: 12-23-[address] Mimi Thomas DO Work Phone: -[facility] Start: 12-15-2024 End: 12-15-[address] Mimi Thomas DO Work Phone: -Laboratory Specimen Start: 12-15-2024 End: 12-15-[address] Leonor Phillips MD -Laboratory Specimen Work Phone: Start: 12-15-2024 End: 12-15-[address] Leonor Phillips MD -[facility] Work Phone: Start: 12-15-2024 End: 12-15-[address] Mimi Thomas DO Work Phone: [facility] Work Phone: Start: 12-15-2024 End: 12-15-2024 ambulatory No Primary Care Physician Facility:[facility] Start: 12-11-2024 End: 12-11-[address] Mimi Thomas DO Work Phone: [facility] Work Phone: Start: 12-11-2024 End: 12-11-[address] Leonor Phillips MD -Ultrasound [facility] Work Phone: Start: 12-11-2024 End: 12-11-2024 ambulatory No Primary Care Physician Facility:[facility] Start: 12-09-2024 End: 12-09-[address] Leonor Phillips MD -[facility] Work Phone: Start: 12-09-2024 End: 12-09-[address] Mimi Thomas DO Work Phone: [facility] Work Phone: Start: 11-25-2024 End: 11-25-2024 Patient encounter procedure Ramya Voss NP-C -[facility] Work Phone: Start: 11-25-2024 End: 11-25-[address] Mimi Thomas DO Work Phone: [facility] Work Phone: Start: 11-25-2024 End: 11-25-2024 ambulatory Ramya Voss AUXILIARY ENGINEER Facility:[facility] Start: 11-11-2024 End: 11-11-[address] Mimi Thomas DO -[facility] Work Phone: Start: 11-11-2024 End: 11-11-[address] Mimi Thomas DO Work Phone: [facility] Work Phone: Start: 10-27-2024 End: 10-27-2024 Patient encounter procedure Yvrose Mcmillan CNM -[facility] Work Phone: Start: 10-27-2024 End: 10-27-2024 ambulatory No Primary Care Physician [place] Start: 10-15-2024 End: 10-15-[address] Mimi Thomas DO Work Phone: [facility] Work Phone: Start: 10-15-2024 End: 10-15-2024 Patient encounter procedure Ramya Voss NP-C -Laboratory, Specimen Work Phone: Start: 10-15-2024 End: 10-15-2024 Patient encounter procedure Ramya Voss AUXILIARY ENGINEER-C -[facility] Work Phone: Start: 10-15-2024 End: 10-15-2024 ambulatory No Primary Care Physician [place] Start: 10-15-2024 End: 10-15-2024 ambulatory No Primary Care Physician Facility:[facility] Start: 10-13-2024 End: 10-13-[address] Mimi Thomas DO Work Phone: [facility] Work Phone: Start: 10-13-2024 End: 10-13-[address] Leonor Phillips MD -[facility] Work Phone: Start: 10-12-2024 End: 10-12-2024 Office outpatient visit 15 minutes Sandra Ramiresrajni Church [facility] Work Phone: [facility] Comment on above: Sore throat (Primary Dx); Viral pharyngitis Start: 10-12-2024 End: 10-13-2024 ambulatory SANDRA AYALA [facility] Start: 10-08-2024 End: 10-08-2024 Emergency department patient visit JUAN LONGO [facility] Start: 09-23-2024 Non-patient / Non-visit Dr. Maylin Phillips MD -[facility] Start: 09-22-2024 Non-patient / Non-visit Dr. Olman Thomas DO -[facility] Start: 09-22-2024 ambulatory Mimi Cummings cility:[facility] Start: 09-22-2024 End: 09-23-2024 Evaluation and management of inpatient Dr. Mimi Thomas DO [place] Work Phone: Start: 09-22-2024 End: 09-22-2024 Emergency department patient visit Jamari Delgadillo MD Work Phone: [facility] Comment on above: Acute pyelonephritis (Primary Dx) Start: 09-22-2024 End: 09-22-2024 Patient encounter procedure Ramya Voss NP-C -[facility] Work Phone: Start: 09-22-2024 End: 09-22-2024 ambulatory Ramya Voss NP Facility:[facility] Start: 08-26-2024 End: 08-26-[address] Leonor Phillips MD -[facility] Work Phone: Start: 08-26-2024 End: 08-26-2024 ambulatory Leonor Phillips Facility:[facility] Start: 08-08-2024 End: 08-09-2024 Emergency department patient visit Jamari Delgadillo MD Work Phone: [facility] Comment on above: Abdominal pain, left upper quadrant (Primary Dx) Start: 08-06-2024 End: 08-06-2024 ambulatory MICHAEL ADAMSON [facility] Start: 07-28-2024 End: 07-28-2024 ambulatory Mimi Thomas Facility:[facility] Start: 07-28-2024 End: 07-28-[address] Mimi Thomas DO -[facility] Work Phone: Start: 07-01-2024 End: 07-01-2024 Patient encounter procedure Ramya Voss AUXILIARY ENGINEER-C -[facility] Work Phone: Start: 07-01-2024 End: 07-01-2024 ambulatory Ramya Voss AUXILIARY ENGINEER [place] Start: 06-19-2024 End: 06-19-2024 Patient encounter procedure Kassi Ontiveros CNM -Lab, [facility] Start: 06-19-2024 End: 06-19-2024 ambulatory Kassi Ontiveros Facility:[facility] Start: 05-29-2024 End: 05-29-2024 Patient encounter procedure Kassi Weston CNM -Laboratory, Specimen Work Phone: Start: 05-29-2024 End: 05-29-2024 Patient encounter procedure Kassi Ontiveros CNM -[facility] Work Phone: Start: 05-29-2024 End: 05-29-2024 ambulatory Kassi Ontiveros [place] Start: 05-29-2024 End: 05-29-2024 ambulatory Kassi Ontiveros Facility:[facility] Start: 04-14-2024 ambulatory Mercedez Harris y:[facility] Start: 03-18-2024 End: 03-18-2024 ambulatory DANIELLE ROSE BIPIN [facility] Start: 03-15-2024 End: 03-15-2024 Emergency department patient visit PHYSICIAN JOSÉ Ward [facility] Start: 03-07-2023 End: 03-07-2023 Emergency department patient visit Kevin Almeida [facility] Start: 11-20-2022 End: 11-20-2022 Emergency department patient visit Kevin Almeida Facility:[id number] Start: 11-01-2022 End: 11-01-2022 Emergency department patient visit Jia Lindsay [facility] Start: 10-18-2022 End: 10-18-2022 Office outpatient visit 25 minutes Mary Romero CNP Work Phone: [facility] Comment on above: Acute vaginitis (Melvina maddison Dx); Vaginal odor; Screening examination for STD (sexually transmitted disease); Electronic cigarette use Start: 10-18-2022 End: 10-18-2022 Telemedicine consultation with patient Verenice Bush Bharath HURTADO Work Phone: [facility] Comment on above: Vaginal Odor (Primar y Dx) Start: 09-25-2022 End: 09-25-2022 Emergency department patient visit Kevin Almeida Facility:[id number] Start: 02-28-2022 ambulatory Kajal Jennifer Haley Facility:[id number] Start: 01-27-2022 End: 01-27-2022 Emergency department patient visit Urielleigh Ro Lauri [facility] Start: 12-31-2021 End: 12-31-2021 Emergency department patient visit Ji Grimes [facility] Start: 02-10-2021 ambulatory JENNIFER MKajal HALEY [facility] Start: 11-06-2020 End: 11-06-2020 Emergency department patient visit Arianna Traylor ED 03 Start: 02-05-2020 End: 02-09-2020 ambulatory JULIETH TUCKER [facility] Start: 02-05-2020 End: 02-05-2020 Office outpatient new 45 minutes Julieth Watters Work Phone: [facility] Comment on above: Syncope, unspecified syncope type Start: 01-01-2020 End: 01-01-2020 Subsequent hospital visit by physician Chintan Ling Work Phone: [facility] Comment on above: Syncope, unspecified syncope type; Palpitations Start: 12-31-2019 End: 12-31-2019 Office outpatient visit 15 minutes Jennifer Haley Work Phone: [facility] Comment on above: Syncope, unspecified syncope type (Primary Dx) Start: 12-29-2019 End: 12-29-2019 Office outpatient new 45 minutes Kenn Valdez Work Phone: [facility] Comment on above: Syncope, unspecified syncope type (Primary Dx); Palpitations Start: 12-24-2019 End: 12-24-2019 Documentation procedure Brooke Caruso [facility] Comment on above: ED Follow-up Start: 12-23-2019 End: 12-23-2019 Emergency department patient visit Kenn Valdez Work Phone: Emergency Department Comment on above: Syncope, unspecified syncope type (Primary Dx) Start: 12-16-2019 End: 12-16-2019 Emergency department patient visit RIC LANTIGUA [facility] Start: 12-16-2019 End: 12-16-2019 Emergency department patient visit Ric Lantigua Work Phone: [facility] ED Comment on above: Syncope and collapse (Primary Dx); Contusion of scalp, initial encounter Start: 03-02-2019 End: 03-02-2019 Office outpatient visit 25 minutes Sergio Gray Work Phone: [facility] Comment on above: Chronic gastritis wi thout bleeding, unspecified gastritis type (Primary Dx); GERD without esophagitis; Biliary dyskinesia Start: 02-24-2019 End: 02-24-2019 Subsequent hospital visit by physician Sergio Gray Work Phone: [facility] Comment on above: Abdominal pain; BRBPR (bright red blood per rectum); Weight loss; Nausea; Abdominal pain, unspecified abdominal location; BRBPR (bright red blood per rectum); Weight loss; Nausea Start: 02-11-2019 End: 02-11-2019 Subsequent hospital visit by physician Sergio Gray Work Phone: [facility] Comment on above: Abdominal pain, unsp ecified abdominal location; Weight loss; Nausea Start: 02-04-2019 End: 02-04-2019 Office outpatient new 45 minutes Sergio Gray Work Phone: [facility] Comment on above: Abdominal pain, unsp ecified abdominal location (Primary Dx); BRBPR (bright red blood per rectum); Weight loss; Nausea Start: 01-27-2019 End: 01-28-2019 Emergency department patient visit Jeffrey Sanchez Isaiah Work Phone: Emergency Department Comment on above: Acute UTI (Primary D x); Acute GI bleeding Start: 11-19-2018 End: 11-19-2018 Office outpatient new 20 minutes Jennifer Haley Work Phone: [facility] Comment on above: Sepsis, due to unspe cified organism (HCC) (Primary Dx); Environmental allergies; Body mass index (BMI) of 5th to less than 85th percentile for age in patient 18 years to less than 21 years of age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 walking, joint pain, limited range of motion, muscle cramps or numbness Integumentary Integumentary: Denies lesions or unusual bruising Neurologic Neurologic: Denies abnormal movements, abnormal speech, dizziness, numbness, seizure-like activity or syncope Psychiatric Psychiatric: Denies anxiety, behavioral changes, change in appetite, change in libido, cognitive impairment, confusion, depression, difficulty concentrating, hallucinations or suicidal thoughts Endocrine Endocrinology: Denies excessive sweating, polydipsia or polyuria Hematologic/Lymphatic Hematologic/Lymphatic: Denies easy bleeding, easy bruising or lymphadenopathy Allergic/Immunologic Allergic/Immunologic: Denies itchy eyes, lip swelling, seasonal rhinorrhea, rhinitis, throat swelling, tongue swelling, eczemia, wheezing or asthma Vital Signs Vital Signs Vital Signs: 09/22/24 16:37 09/22/24 16:37 Pulse Rate 82 Blood Pressure 109/61 BP Systolic 109 BP Diastolic 61 Physical Exam Const alert, oriented x3, no apparent distress and healthy appearing General Appearance: cooperative; Negative for anxious HEENT normocephalic Face and Sinus: normal facial exam Eyes EOMs intact bilaterally and no scleral icterus General Eye: normal appearance of both eyes Neck full ROM and supple Lymph Lymphatic: no lymphadenopathy noted Resp normal respiratory effort Effort and Inspection: able to speak in complete sentences GI soft to palpation and non-tender Inspection: gravid Palpation: soft; Negative for tender Back/Spine General Back: CVA tenderness right and warmth Extremity normal to inspection, full ROM and no clubbing, cyanosis or edema General Extremity: Negative for calf tenderness or edema Skin Lesions: no lesions Rashes: no rashes Psych mental status grossly normal Labs Labs Labs: Blood Type O POSITIVE Antibody Screen NEGATIVE Hct 39.3 % (37-47) Hgb 12.9 g/dL (12.0-15.0) Syphilis Total Ab Non-reactive Rubella IgG Antibody Non-Reactive (Nonreactive) Hep Bs Antigen Non-Reactive (Nonreactive) Hepatitis C Antibody Non-Reactive (Nonreactive) Chlamydia DNA (CONOR) Negative (Negative) N.gonorrhoeae DNA (CONOR) Negative (Negative) HIV 1&2 Antibody Non-Reactive (Nonreactive) Assessment & Plan (1) Pyelonephritis affecting : PLAN: continue rochephin 1 gram q 24 hrs unsure if urine culture was sent at [facility] - will order repeat rpt cbc in am pyelo in increases risks for ARDS and labor - continuous monitoring ordered. tylenol for fever and headache flexeril for back pain goal is to remain afebrile for 24 hours and see a lowering in the WBC count in the am. If both happen and pain subsides will discharge to home tomorrow evening. q 4 hr vitals normal diet bathroom privileges scds (2) Cystic fibrosis carrier: COMMENT: FOB neg. 06/04 (3) Supervision of normal first : QUALIFIERS: Trimester: second trimester Qualified Code(s): Z34.02 - Encounter for supervision of normal first , second trimester COMMENT: [id number], TERESITA 12/29/24, girl Guerrero Gutierrez (4) : QUALIFIERS: Weeks of gestation: 20 weeks Qualified Code(s): Z3A.20 - 20 weeks gestation of COMMENT: LR NIPT Carrier Neg. Carrier for Cystic Fibrosis;FOB Karen Nassareck negative 09/22/24 2328 <Electronically signed by Mimi Thomas DO> Cosigner Signature (if applicable): CC: Dr. Mimi Thomas DO~ Signed 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 This was based on an elevated WBC count, 4+ bacteria in the urine, and fevers at home. She also has lower back pain and right upper back pain. She denies nausea, vomiting, diarrhea, shortness of breath, or chest pain. Maternal Data Information TERESITA Calculator Estimated Delivery Date Method Current WG Current Estimate 01/07/25 Ultrasound #1 24w 5d Other Estimates 12/29/24 LMP (Certain) 26w 0d PFSH PFSH Home Medications ?Medication ?Instructions ?Recorded ?Last Taken ?Type PNV 153-FA 400 mcg-om3 35 mg-dha tab PO 04/25 07/17 Unknown History 25 mg-epa 5 mg-fish oil chew tablet ondansetron 4 mg disintegrating 4 mg PO Q4H PRN nausea and 07/01/24 09/20/24 Rx tablet vomiting #60 tabs acetaminophen 325 mg tablet 650 mg PO Q4H PRN pain 07/1809/22/24 06:00 History (Tylenol) Allergy/AdvReac Type Severity Reaction Status Date / Time No Known Allergies Allergy Verified 09/22/24 16:43 Surgical History History of splenectomy Social History adopted: No household members: family current occupational status: employed current occupation: [employer] pets and animals: Yes pets and animals: dog(s) history of recent travel: No sexually active: Yes Smoking Status: Former smoker Electronic Cigarette Use: with nicotine alcohol intake: current alcohol intake frequency: a few times a month details: not while substance use type: does not use well-balanced diet: daily or most days caffeine: No eating out: 1-3 times/week during the past year weight has: remained stable what type of physical activity do you participate in: none ana m/alevism: Anabaptism seatbelt use: always do you feel safe at home: Yes additional social history: BF- Brenda- [place] History 1 Elective abortions Hx Para 0 Spontaneous abortions Hx # Term Pregnancies Ectopic pregnancies Hx # Pregnancies Multiple births # of living children Visit Details Expected Delivery Route/Plan Labor Preferences- CB/BF classes: enc labor support person: [] labor intervention preferences: [] pain management options preferred: [] cut cord/dad catch: [] : [] PP control planned: [] discussed possible routes of delivery and associated risks: [] special requests: [] Plans Covid status: [] Flu vaccine: [] Tdap vaccine: [] Rhogam: [] LARC form signed: [] Problem list reviewed and updated with the most current plan of care details and appropriate ordersplaced. Relevant counseling for the gestational age provided. Continue routine care and follow up unless otherwise noted in visit notes/problem list details OB Flowsheet Initial Weight: 125 lb Date -?-?-?-?-?-?-?-?-?-?-?-?- EGA Weight BP Urine Prot -?-?-?-?-?-?-?-?-?-?-?-?- Glucose FHR FuHt Pres Dilation -?-?-?-?-?-?-?-?-?-?-?-?- Effaced St Visit Note 05/29/24 -?-?-?-?-?-?-?-?-?-?-?-?- 8w 1d 125 lb 4 oz (+4 oz) 127/76 -?-?-?-?-?-?-?-?-?-?-?-?- 166 -?-?-?-?-?-?-?-?-?-?-?-?- LC CRL 1.62 not con with LMP. LMP changed to 01/07/2025. desires nipt/carrier screening. will return in 2 weeks. 07/01/24 -?-?-?-?-?-?-?-?-?-?-?-?- 12w 6d 124 lb 6 oz (-10 oz) 107/61 Negative -?-?-?-?-?-?-?-?-?-?-?-?- Negative 145 -?-?-?-?-?-?-?-?-?-?-?-?- MH-No VB. Nausea problematic. Gayle sent. 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 Br US confirm FHT 07/28/24 -?-?-?-?-?-?-?-?-?-?-?-?- 16w 5d 127 lb (+2 lb) 112/70 Negative -?-?-?-?-?-?-?-?-?-?-?-?- Negative 142 -?-?-?-?-?-?-?-?-?-?-?-?- JV- no complaint s today other than FOB needs labs for CF. 08/26/24 -?-?-?-?-?-?-?-?-?-?-?-?- 20w 6d 129 lb (+4 lb) 108/62 Negative -?-?-?-?-?-?-?-?-?-?-?-?- Negative 135 -?-?-?-?-?-?-?-?-?-?-?--?- SM- no vb lof go od fm no reuglar ctx 09/22/24 -?-?-?-?-?-?-?-?-?-?-?-?- 24w 5d 137 lb 4 oz (+12 lb 4 oz) 98/60 Negative -?-?-?-?-?-?-?-?-?-?-?-?- Negative 138 -?-?-?-?-?-?-?-?-?-?-?-?- MH-No VB, LOF. G ood FM. ROS Constitutional Constitutional: Denies change in weight, fatigue, fever(s), headache(s), poor appetite or weakness Eyes Eyes: Denies blurry vision, change in vision, seeing flashes or spots in vision ENT HEENT: Denies dizziness, headache(s), loss taste/smell or sore throat Cardiovascular Cardiovascular: Denies chest pain, dizziness, dyspnea, irregular heart rhythm, leg edema, palpitations, rapid heart rate or vomiting Respiratory/Chest Respiratory/Chest: Denies chest tightness, cough, dyspnea or breast pain Gastrointestinal Gastrointestinal: Denies abdominal pain, anorexia, constipation, cramping, diarrhea, hemorrhoids, vomiting or weight changes Genitourinary Genitourinary: Denies dysuria, flank pain, genital lesions, genital pain, urinary frequency or urinary urgency Musculoskeletal Musculoskeletal: Denies back pain, difficulty walking, joint pain, limited range of motion, muscle cramps or numbness Integumentary Integumentary: Denies lesions or unusual bruising Neurologic Neurologic: Denies abnormal movements, abnormal speech, dizziness, numbness, seizure-like activity or syncope Psychiatric Psychiatric: Denies anxiety, behavioral changes, change in appetite, change in libido, cognitive impairment, confusion, depression, difficulty concentrating, hallucinations or suicidal thoughts Endocrine Endocrinology: Denies excessive sweating, polydipsia or polyuria Hematologic/Lymphatic Hematologic/Lymphatic: Denies easy bleeding, easy bruising or lymphadenopathy Allergic/Immunologic Allergic/Immunologic: Denies itchy eyes, lip swelling, seasonal rhinorrhea, rhinitis, throat swelling, tongue swelling, eczemia, wheezing or asthma Vital Signs Vital Signs Vital Signs: 09/22/24 16:37 09/22/24 16:37 Pulse Rate 82 Blood Pressure 109/61 BP Systolic 109 BP Diastolic 61 Physical Exam Const alert, oriented x3, no apparent distress and healthy appearing General Appearance: cooperative; Negative for anxious HEENT normocephalic Face and Sinus: normal facial exam Eyes EOMs intact bilaterally and no scleral icterus General Eye: normal appearance of both eyes Neck full ROM and supple Lymph Lymphatic: no lymphadenopathy noted Resp normal respiratory effort Effort and Inspection: able to speak in complete sentences GI soft to palpation and non-tender Inspection: gravid Palpation: soft; Negative for tender Back/Spine General Back: CVA tenderness right and warmth Extremity normal to inspection, full ROM and no clubbing, cyanosis or edema General Extremity: Negative for calf tenderness or edema Skin Lesions: no lesions Rashes: no rashes Psych mental status grossly normal Labs Labs Labs: Blood Type O POSITIVE Antibody Screen NEGATIVE Hct 39.3 % (37-47) Hgb 12.9 g/dL (12.0-15.0) Syphilis Total Ab Non-reactive Rubella IgG Antibody Non-Reactive (Nonreactive) Hep Bs Antigen Non-Reactive (Nonreactive) Hepatitis C Antibody Non-Reactive (Nonreactive) Chlamydia DNA (CONOR) Negative (Negative) N.gonorrhoeae DNA (CONOR) Negative (Negative) HIV 1&2 Antibody Non-Reactive (Nonreactive) Assessment & Plan (1) Pyelonephritis affecting : PLAN: continue rochephin 1 gram q 24 hrs unsure if urine culture was sent at [facility] - will order repeat rpt cbc in am pyelo in increases risks for ARDS and labor - continuous monitoring ordered. tylenol for fever and headache flexeril for back pain goal is to remain afebrile for 24 hours and see a lowering in the WBC count in the am. If both happen and pain subsides will discharge to home tomorrow evening. q 4 hr vitals normal diet bathroom privileges scds (2) Cystic fibrosis carrier: COMMENT: FOB neg. 06/04 (3) Supervision of normal first : QUALIFIERS: Trimester: second trimester Qualified Code(s): Z34.02 - Encounter for supervision of normal first , second trimester COMMENT: [id number], TERESITA 12/29/24, girl Guerrero Gutierrez (4) : QUALIFIERS: Weeks of gestation: 20 weeks Qualified Code(s): Z3A.20 - 20 weeks gestation of COMMENT: LR NIPT Carrier Neg. Carrier for Cystic Fibrosis;FOB Karen Wilber negative 09/22/24 4541 Cosigner Signature (if applicable): CC: Dr. Mimi Thomas, DO~ Signed [facility]04-01-2025 Evaluation note* Diagnosis Onset Date Resolution Status Admit Date Cystic fibrosis carrier acute A 2024 8:24am acute September 22 8:24am Supervision of normal first acute September 22, 2024 8:24am Cystic fibrosis carrier acute A 2024 4:45pm acute September 22 4:45pm Pyelonephritis affecting acute September 22, 2024 4:45pm Supervision of normal first acute September 22, 2024 4:45pm Cystic fibrosis carrier acute A pri2024 1:48pm acute October 13 1:48pm Pyelonephritis affecting acute October 13, 2024 1:48pm Supervision of normal first acute October 13, 2024 1:48pm Abdominal pain resolved September 1:48pm acute October 15 9:51am Pyelonephritis affecting acute October 15, 2024 9:51am Supervision of normal first acute October 15, 2024 9:51am Anemia in acute October 272024 9:18am Cystic fibrosis carrier acute M 2024 9:18am acute October 27, 2024 9:18am Pyelonephritis affecting acute October 27, 2024 9: 18am Supervision of normal first acute October 27, 2024 9: 18am Abdominal pain resolved October 27, 2 9:18am Anemia in acute October 232024 9:26am Cystic fibrosis carrier acute M ay 2024 9:26am History of total splenectomy acute November 11, 2024 9:26am acute November 11, 2024 9:26am Pyelonephritis affecting acute November 11, 2024 9 :26am Supervision of normal first acute November 11, 2024 9 :26am Abdominal pain resolved November 11, 2024 9:26am Anemia in acute November 25, 2024 9:51am Cystic fibrosis carrier acute J une 2024 9:51am History of total splenectomy acute November 25, 2024 9:51am acute November 25, 2024 9:51am Pyelonephritis affecting acute November 25, 2024 9 :51am Supervision of normal first acute November 25, 2024 9 :51am Anemia in acute December 09, 2024 9:24am Cystic fibrosis carrier acute J une 2024 9:24am History of total splenectomy acute December 09, 2024 9:24am acute December 09 9:24am Pyelonephritis affecting acute December 09, 2024 9:24am Supervision of normal first acute December 09, 2024 9:24am Anemia in acute December 15, 2024 9:16am Cystic fibrosis carrier acute J une 2024 9:16am History of total splenectomy acute December 15, 2024 9:16am acute December 15 9:16am Pyelonephritis affecting acute December 15, 2024 9:16am Supervision of normal first acute December 15, 2024 9:16am Anemia in acute December 23, 2024 3:19pm Cystic fibrosis carrier acute J livia 2024 3:19pm History of total splenectomy acute December 23, 2024 3:19pm acute December 23, 2024 3:19pm Pyelonephritis affecting acute December 23, 2024 3 :19pm Supervision of normal first acute December 23, 2024 3 :19pm Anemia in acute December 30, 2024 2:11pm Cystic fibrosis carrier acute J livia 2024 2:11pm History of total splenectomy acute December 30, 2024 2:11pm acute December 30, 2024 2:11pm Pyelonephritis affecting acute December 30, 2024 2 :11pm Supervision of normal first acute December 30, 2024 2 :11pm [facility] Work Phone: 1(242) 279-854504-01-2025 Evaluation note* Diagnosis Onset Date Resolution Status Admit Date Cystic fibrosis carrier acute A pril 2024 8:24am acute September 22 8:24am Supervision of normal first acute September 22, 2024 8:24am Cystic fibrosis carrier acute A pril 2024 4:45pm acute September 22 4:45pm Pyelonephritis affecting acute September 22, 2024 4:45pm Supervision of normal first acute September 22, 2024 4:45pm Cystic fibrosis carrier acute A pril 2024 1:48pm acute October 13 1:48pm Pyelonephritis affecting acute October 13, 2024 1:48pm Supervision of normal first acute October 13, 2024 1:48pm Abdominal pain resolved September 1:48pm acute October 15 9:51am Pyelonephritis affecting acute October 15, 2024 9:51am Supervision of normal first acute October 15, 2024 9:51am Anemia in acute October 272024 9:18am Cystic fibrosis carrier acute M ay 2024 9:18am acute October 27, 2024 9:18am Pyelonephritis affecting acute October 27, 2024 9: 18am Supervision of normal first acute October 27, 2024 9: 18am Abdominal pain resolved October 27 9:18am Anemia in acute October 232024 9:26am Cystic fibrosis carrier acute M ay 2024 9:26am History of total splenectomy acute November 11, 2024 9:26am acute November 11, 2024 9:26am Pyelonephritis affecting acute November 11, 2024 9 :26am Supervision of normal first acute November 11, 2024 9 :26am Abdominal pain resolved November 11, 2024 9:26am Anemia in acute November 25, 2024 9:51am Cystic fibrosis carrier acute J une 2024 9:51am History of total splenectomy acute November 25, 2024 9:51am acute November 25, 2024 9:51am Pyelonephritis affecting acute November 25, 2024 9 :51am Supervision of normal first acute November 25, 2024 9 :51am Anemia in acute December 09, 2024 9:24am Cystic fibrosis carrier acute J une 2024 9:24am History of total splenectomy acute December 09, 2024 9:24am acute December 09 9:24am Pyelonephritis affecting acute December 09, 2024 9:24am Supervision of normal first acute December 09, 2024 9:24am Anemia in acute December 15, 2024 9:16am Cystic fibrosis carrier acute J une 2024 9:16am History of total splenectomy acute December 15, 2024 9:16am acute December 15 9:16am Pyelonephritis affecting acute December 15, 2024 9:16am Supervision of normal first acute December 15, 2024 9:16am Anemia in acute December 23, 2024 3:19pm Cystic fibrosis carrier acute J livia 2024 3:19pm History of total splenectomy acute December 23, 2024 3:19pm acute December 23, 2024 3:19pm Pyelonephritis affecting acute December 23, 2024 3 :19pm Supervision of normal first acute December 23, 2024 3 :19pm Anemia in acute December 30, 2024 2:11pm Cystic fibrosis carrier acute J livia 2024 2:11pm History of total splenectomy acute December 30, 2024 2:11pm acute December 30, 2024 2:11pm Pyelonephritis affecting acute December 30, 2024 2 :11pm Supervision of normal first acute December 30, 2024 2 :11pm Anemia in acute January 07, 2025 11:20am Cystic fibrosis carrier acute J livia 2024 11:20am History of total splenectomy acute January 07, 2025 11:20am acute January 07 11:20am Pyelonephritis affecting acute January 07, 2025 11:20am Supervision of normal first acute January 07, 2025 11:20am [place] [facility] Work Phone: 1(115) 614-285903-05-2025 Evaluation note* Diagnosis Onset Date Resolution Status Admit Date Cystic fibrosis carrier acute M arch 2024 9:19am acute August 26 9:19am Supervision of normal first acute August 26, 2024 9:19am Cystic fibrosis carrier acute A pril 2024 8:24am acute September 22 8:24am Supervision of normal first acute September 22, 2024 8:24am Cystic fibrosis carrier acute A pril 2024 4:45pm acute September 22 4:45pm Pyelonephritis affecting acute September 22, 2024 4:45pm Supervision of normal first acute September 22, 2024 4:45pm Cystic fibrosis carrier acute A pril 2024 1:48pm acute October 13 1:48pm Pyelonephritis affecting acute October 13, 2024 1:48pm Supervision of normal first acute October 13, 2024 1:48pm Abdominal pain resolved September 1:48pm acute October 15 9:51am Pyelonephritis affecting acute October 15, 2024 9:51am Supervision of normal first acute October 15, 2024 9:51am Anemia in acute October 272024 9:18am Cystic fibrosis carrier acute M ay 2024 9:18am acute October 27, 2024 9:18am Pyelonephritis affecting acute October 27, 2024 9: 18am Supervision of normal first acute October 27, 2024 9: 18am Abdominal pain resolved October 27, 9:18am Anemia in acute October 232024 9:26am Cystic fibrosis carrier acute M ay 2024 9:26am History of total splenectomy acute November 11, 2024 9:26am acute November 11, 2024 9:26am Pyelonephritis affecting acute November 11, 2024 9 :26am Supervision of normal first acute November 11, 2024 9 :26am Abdominal pain resolved November 11, 2024 9:26am Anemia in acute November 25, 2024 9:51am Cystic fibrosis carrier acute J une 2024 9:51am History of total splenectomy acute November 25, 2024 9:51am acute November 25, 2024 9:51am Pyelonephritis affecting acute November 25, 2024 9 :51am Supervision of normal first acute November 25, 2024 9 :51am [facility] Work Phone: 1(934) 789-910703-05-2025 Evaluation note* Diagnosis Onset Date Resolution Status Admit Date Cystic fibrosis carrier acute M arch 2024 9:19am acute August 26 9:19am Supervision of normal first acute August 26, 2024 9:19am Cystic fibrosis carrier acute A pril 2024 8:24am acute September 22 8:24am Supervision of normal first acute September 22, 2024 8:24am Cystic fibrosis carrier acute A pril 2024 4:45pm acute September 22 4:45pm Pyelonephritis affecting acute September 22, 2024 4:45pm Supervision of normal first acute September 22, 2024 4:45pm Cystic fibrosis carrier acute A pril 2024 1:48pm acute October 13 1:48pm Pyelonephritis affecting acute October 13, 2024 1:48pm Supervision of normal first acute October 13, 2024 1:48pm Abdominal pain resolved September 1:48pm acute October 15 9:51am Pyelonephritis affecting acute October 15, 2024 9:51am Supervision of normal first acute October 15, 2024 9:51am Anemia in acute October 272024 9:18am Cystic fibrosis carrier acute M ay 2024 9:18am acute October 27, 2024 9:18am Pyelonephritis affecting acute October 27, 2024 9: 18am Supervision of normal first acute October 27, 2024 9: 18am Abdominal pain resolved October 27, 9:18am Anemia in acute October 232024 9:26am Cystic fibrosis carrier acute M ay 2024 9:26am History of total splenectomy acute November 11, 2024 9:26am acute November 11, 2024 9:26am Pyelonephritis affecting acute November 11, 2024 9 :26am Supervision of normal first acute November 11, 2024 9 :26am Abdominal pain resolved November 11, 2024 9:26am Anemia in acute November 25, 2024 9:51am Cystic fibrosis carrier acute J une 2024 9:51am History of total splenectomy acute November 25, 2024 9:51am acute November 25, 2024 9:51am Pyelonephritis affecting acute November 25, 2024 9 :51am Supervision of normal first acute November 25, 2024 9 :51am Anemia in acute December 09, 2024 9:24am Cystic fibrosis carrier acute J une 2024 9:24am History of total splenectomy acute December 09, 2024 9:24am acute December 09 9:24am Pyelonephritis affecting acute December 09, 2024 9:24am Supervision of normal first acute December 09, 2024 9:24am [facility] Work Phone: 1(741) 139-947403-05-2025 Evaluation note* Diagnosis Onset Date Resolution Status Admit Date Cystic fibrosis carrier acute M 2024 9:19am acute August 26 9:19am Supervision of normal first acute August 26, 2024 9:19am Cystic fibrosis carrier acute A pri2024 8:24am acute September 22 8:24am Supervision of normal first acute September 22, 2024 8:24am Cystic fibrosis carrier acute A pril 2024 4:45pm acute September 22 4:45pm Pyelonephritis affecting acute September 22, 2024 4:45pm Supervision of normal first acute September 22, 2024 4:45pm Cystic fibrosis carrier acute A pril 2024 1:48pm acute October 13 1:48pm Pyelonephritis affecting acute October 13, 2024 1:48pm Supervision of normal first acute October 13, 2024 1:48pm Abdominal pain resolved September 1:48pm acute October 15 9:51am Pyelonephritis affecting acute October 15, 2024 9:51am Supervision of normal first acute October 15, 2024 9:51am Anemia in acute October 272024 9:18am Cystic fibrosis carrier acute M ay 2024 9:18am acute October 27, 2024 9:18am Pyelonephritis affecting acute October 27, 2024 9: 18am Supervision of normal first acute October 27, 2024 9: 18am Abdominal pain resolved October 27, 2 025 9:18am Anemia in acute October 232024 9:26am Cystic fibrosis carrier acute M ay 2024 9:26am History of total splenectomy acute November 11, 2024 9:26am acute November 11, 2024 9:26am Pyelonephritis affecting acute November 11, 2024 9 :26am Supervision of normal first acute November 11, 2024 9 :26am Abdominal pain resolved November 11, 2024 9:26am Anemia in acute November 25, 2024 9:51am Cystic fibrosis carrier acute J une 2024 9:51am History of total splenectomy acute November 25, 2024 9:51am acute November 25, 2024 9:51am Pyelonephritis affecting acute November 25, 2024 9 :51am Supervision of normal first acute November 25, 2024 9 :51am Anemia in acute December 09, 2024 9:24am Cystic fibrosis carrier acute J une 2024 9:24am History of total splenectomy acute December 09, 2024 9:24am acute December 09 9:24am Pyelonephritis affecting acute December 09, 2024 9:24am Supervision of normal first acute December 09, 2024 9:24am Anemia in acute December 15, 2024 9:16am Cystic fibrosis carrier acute J une 2024 9:16am History of total splenectomy acute December 15, 2024 9:16am acute December 15 9:16am Pyelonephritis affecting acute December 15, 2024 9:16am Supervision of normal first acute December 15, 2024 9:16am [facility] Work Phone: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 When:01/30/2022 With:Britt Aguilar MD Address: [address] [place] [address]- When:01/30/2022 [facility]08-06-2022 Evaluation + Plan note Diagnostic Tests Pending * Urine Culture 01/27/22 [facility]07-10-2022 Hospital Discharge instructions Patient Education 12/31/2021 19:45:50 Seizure, Adult, [id number] Seizure, Adult A seizure is a sudden burst of abnormal electrical activity in the brain. Seizures usually last from 30 seconds to 2 minutes. They can cause many different symptoms. Usually, seizures are not harmful unless they last a long time. What are the causes? Common causes of this condition include: Fever or infection. Conditions that affect the brain, such as: ?A brain abnormality that you were born with. ?A brain or head injury. ?Bleeding in the brain. ?A tumor. ?Stroke. ?Brain disorders such as autism or cerebral palsy. Low blood sugar. Conditions that are passed from parent to child (are inherited). Problems with substances, such as: ?Having a reaction to a drug or a medicine. ?Suddenly stopping the use of a substance (withdrawal). In some cases, the cause may not be known. A person who has repeated seizures over time without a clear cause has a condition called epilepsy. What increases the risk? You are more likely to get this condition if you have: A family history of epilepsy. Had a seizure in the past. A brain disorder. A history of head injury, lack of oxygen at , or strokes. What are the signs or symptoms? There are many types of seizures. The symptoms vary depending on the type of seizure you have. Examples of symptoms during a seizure include: Shaking (convulsions). Stiffness in the body. Passing out (losing consciousness). Head nodding. Staring. Not responding to sound or touch. Loss of bladder control and bowel control. Some people have symptoms right before and right after a seizure happens. Symptoms before a seizure may include: Fear. Worry (anxiety). Feeling like you may vomit (nauseous). Feeling like the room is spinning (vertigo). Feeling like you saw or heard something before (d félix vu). Odd tastes or smells. Changes in how you see. You may see flashing lights or spots. Symptoms after a seizure happens can include: Confusion. Sleepiness. Headache. Weakness on one side of the body. How is this treated? Most seizures will stop on their own in under 5 minutes. In these cases, no treatment is needed. Seizures that last longer than 5 minutes will usually need treatment. Treatment can include: Medicines given through an IV tube. Avoiding things that are known to cause your seizures. These can include medicines that you take for another condition. Medicines to treat epilepsy. Surgery to stop the seizures. This may be needed if medicines do not help. Follow these instructions at home: Medicines Take wqpv-rac-tqlkqwf and prescription medicines only as told by your doctor. Do not eat or drink anything that may keep your medicine from working, such as alcohol. Activity Do not do any activities that would be dangerous if you had another seizure, like driving or swimming. Wait until your doctor says it is safe for you to do them. If you live in the [place] ask your local DMV (department of DriveHQ) when you can drive. Get plenty of rest. Teaching others Teach friends and family what to do when you have a seizure. They should: Lay you on the ground. Protect your head and body. Loosen any tight clothing around your neck. Turn you on your side. Not hold you down. Not put anything into your mouth. Know whether or not you need emergency care. Stay with you until you are better. General instructions Contact your doctor each time you have a seizure. Avoid anything that gives you seizures. Keep a seizure diary. Write down: ?What you think caused each seizure. ?What you remember about each seizure. Keep all follow-up visits as told by your doctor. This is important. Contact a doctor if: You have another seizure. You have seizures more often. There is any change in what happens during your seizures. You keep having seizures with treatment. You have symptoms of being sick or having an infection. Get help right away if: You have a seizure that: ?Lasts longer than 5 minutes. ?Is different than seizures you had before. ?Makes it harder to breathe. ?Happens after you hurt your head. You have any of these symptoms after a seizure: ?Not being able to speak. ?Not being able to use a part of your body. ?Confusion. ?A bad headache. You have two or more seizures in a row. You do not wake up right after a seizure. You get hurt during a seizure. These symptoms may be an emergency. Do not wait to see if the symptoms will go away. Get medical help right away. Call your local emergency services (911 in the [place] Do not drive yourself to the hospital. Summary Seizures usually last from 30 seconds to 2 minutes. Usually, they are not harmful unless they last a long time. Do not eat or drink anything that may keep your medicine from working, such as alcohol. Teach friends and family what to do when you have a seizure. Contact your doctor each time you have a seizure. This information is not intended to replace advice given to you by your health care provider. Make sure you discuss any questions you have with your health care provider. Document Released: 11/26/2008 Document Revised: 08/28/2019 Document Reviewed: 08/28/2019 [employer] Patient Education 2020 NoteSick. Follow Up Care 12/31/2021 18:36:34 With:Tye Arora Address: [address] [place] [address] [place] [address]- Business (1) When:01/03/2022 19:26:51 With:Britt Aguilar Address: [address] [place] [address] [place] [address]- Business (1) When:Within 3 Day(s) [facility]07-10-2022 Evaluation + Plan noteExtracted from: Title:ED Note Author:Ji Grimes DO Date :12/31/21 Recurrent episodes of unresp onsiveness (R41.89: Other symptoms and signs involving cognitive functions and awareness) [facility] Diagnosis Vaginal Odor- Primary Leukorrhea, not specified as infective [facility] Diagnosis Acute vaginitis- Primary Unspecified vaginitis and vulvovaginitis Vaginal odor Unspecified symptom associated with female genital organs Screening examination for STD (sexually transmitted disease) Electronic cigarette use [facility]* Diagnosis Abdominal pain, left upper quadrant- Primary documented in this encounter [facility] note* Diagnosis Acute pyelonephritis- Primary Acute pyelonephritis without lesion of renal medullary necrosis documented in this encounter [facility] note* Diagnosis Sepsis, due to unspecified organism- Primary Environmental allergies Other allergy, other than to medicinal agents Body mass index (BMI) of 5th to less than 85th percentile for age in patient 18 years to less than 21 years of age Syncope, unspecified syncope type- Primary Palpitations Sore throat- Primary Acute pharyngitis Viral pharyngitis Acute pharyngitis [facility] Narrative No data available for this section [facility] Discharge instructions* Attachments The following attachments cannot be sent through Care Everywhere. * : Abdominal Pain ([place]) * Abdominal Pain ([place]) [facility] Attachments The following attachments cannot be sent through Care Everywhere. * Pyelonephritis ([place]) * : UTI (Urinary Tract Infection) ([place]) [facility]* Attachments The following attachments cannot be sent through Care Everywhere. * Sore Throat ([place]) [facility] No data available for this section [facility] Author Ramya Voss [facility] Note Date/Time November 25, 2024 10:17 am [facility] [address], [address] [place] [address] OFFICE VISIT Date of Service: 11/25/24 MR#: [id number] Acct: [id number] Name: AIMEE REDDY Rep #: [id number] : 2000 Provider: ANDREW Voss Age/Sex: 24/F Location: [facility] – [place] Status: Signed Intake Vital Signs 07/01/24 09:26 11/11/24 09:33 11/25/24 09:57 Height 5 ft 4 in 5 ft 4 in 5 ft 4 in Weight: 144 lb 146 lb 2 oz BMI 24.7 25.0 BP 117/76 112/82 H Intake Visit Reasons: 34wk ob Chief Complaint: 34 Week OB 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 Is patient in pain?: No Allergies No Known Allergies Allergy (Verified 11/25/24 09:58) Medications ?Medication ?Instructions ?Recorded ?Confirmed ?Type PNV 153-FA 400 mcg-om3 35 mg-dha tab PO 04/2511/25/24 History 25 mg-epa 5 mg-fish oil chew tablet acetaminophen 325 mg tablet 650 mg PO Q4H PRN pain 07/1811/25/24 History (Tylenol) cephalexin 500 mg capsule 500 mg PO BID #60 caps 10/1411/25/24 Rx Last Menstrual Period: 03/24/24 Zika: Zika virus screening: Negative : No PFSH PFSH Surgical History History of splenectomy Social History adopted: No household members: family current occupational status: employed current occupation: [employer] pets and animals: Yes pets and animals: dog(s) history of recent travel: No sexually active: Yes Smoking Status: Former smoker Electronic Cigarette Use: with nicotine alcohol intake: current alcohol intake frequency: a few times a month details: not while substance use type: does not use well-balanced diet: daily or most days caffeine: No eating out: 1-3 times/week during the past year weight has: remained stable what type of physical activity do you participate in: none ana m/alevism: Anabaptism seatbelt use: always do you feel safe at home: Yes additional social history: BF- Brenda- [place] History 1 Elective abortions Hx Para 0 Spontaneous abortions Hx # Term Pregnancies Ectopic pregnancies Hx # Pregnancies Multiple births # of living children HPI 34wk ob Details: AIMEE REDDY is a 24 year old who presents for routine OB visit. OB Visit TERESITA Calculator Estimated Delivery Date Method Current WG Current Estimate 01/07/25 Ultrasound #1 33w 6d Other Estimates 12/29/24 LMP (Certain) 35w 1d Expected Delivery Route/Plan Labor Preferences- CB/BF classes: enc labor support person: Karen labor intervention preferences: [] pain management options preferred: [] cut cord/dad catch: cord : yes PP control planned: discused discussed possible routes of delivery and associated risks: [] special requests: [] Specific Issue/Plans Covid status: [] Flu vaccine: [] Tdap vaccine: given Rhogam: NA LARC form signed: yes Problem list reviewed and updated with the most current plan of care details and appropriate orders placed. Relevant counseling for the gestational age provided. Continue routine care and follow up unless otherwise noted in visit notes/problem list details Initial Weight: 125 lb Date -?-?-?-?-?-?-?-?-?-?-?-?- EGA Weight BP Urine Prot -?-?-?-?-?-?-?-?-?-?-?-?- Glucose FHR FuHt Pres Dilation -?-?-?-?-?-?-?-?-?-?-?-?- Effaced St Visit Note 05/29/24 -?-?-?-?-?-?-?-?-?-?-?-?- 8w 1d 125 lb 4 oz (+4 oz) 127/76 -?-?-?-?-?-?-?-?-?-?-?-?- 166 -?-?-?-?-?-?-?-?-?-?-?-?- LC CRL 1.62 not con with LMP. LMP changed to 01/07/2025. desires nipt/carrier screening. will return in 2 weeks. 07/01/24 -?-?-?-?-?-?-?-?-?-?-?-?- 12w 6d 124 lb 6 oz (-10 oz) 107/61 Negative -?-?-?-?-?-?-?-?-?-?-?-?- Negative 145 -?-?-?-?-?-?-?-?-?-?-?-?- MH-No VB. Nausea problematic. Galye sent. 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 Br US confirm FHT 07/28/24 -?-?-?-?-?-?-?-?-?-?-?-?- 16w 5d 127 lb (+2 lb) 112/70 Negative -?-?-?-?-?-?-?-?-?-?-?-?- Negative 142 -?-?-?-?-?-?-?-?-?-?-?-?- JV- no complaint s today other than FOB needs labs for CF. 08/26/24 -?-?-?-?-?-?-?-?-?-?-?-?- 20w 6d 129 lb (+4 lb) 108/62 Negative -?-?-?-?-?-?-?-?-?-?-?-?- Negative 135 -?-?-?-?-?-?-?-?-?-?-?-?- SM- no vb lof go od fm no reuglar ctx 09/22/24 -?-?-?-?-?-?-?-?-?-?-?-?- 24w 5d 137 lb 4 oz (+12 lb 4 oz) 98/60 Negative -?-?-?-?-?-?-?-?-?-?-?-?- Negative 138 -?--?-?-?-?-?-?-?-?-?-?-?- MH-No VB, LOF. G ood FM. 10/13/24 -?-?-?-?-?-?-?-?-?-?-?-?- 27w 5d 137 lb 8 oz (+12 lb 8 oz) 108/71 Negative -?-?-?-?-?-?-?-?-?-?-?-?- Negative 140 28 -?-?-?-?-?-?-?-?-?-?-?-?- SM- no vb lof go od fm no reuglar ctx labs today 10/27/24 -?-?-?-?-?-?-?-?-?-?-?-?- 29w 5d 141 lb 8 oz (+16 lb 8 oz) 119/73 Negative -?-?-?-?-?-?-?-?-?-?-?-?- Negative 130 30 -?-?-?-?-?-?-?-?-?-?-?-?- KW- no vb/lof/ct x. good fm. tdap and larc today. discussed anatomy US and many questions answered. 11/11/24 -?-?-?-?-?-?-?-?-?-?-?-?- 31w 6d 144 lb (+19 lb) 117/76 Negative -?-?-?-?-?-?-?-?-?-?-?-?- Negative 135 31 -?-?-?-?-?-?-?-?-?-?-?-?- JV- no lof, vagi nal bleeding, or dec fm today. she was having somewhat of a hard time feeling movement last night. has an anterior placenta. she is mildly anemic but was not taking pnv. she wants to go back on those before starting sloFE 11/25/24 -?-?-?-?-?-?-?-?-?-?-?-?- 33w 6d 146 lb 2 oz (+21 lb 2 oz) 112/82 Negative -?-?-?-?-?-?-?-?-?-?-?-?- Negative 147 32 -?-?-?-?-?-?-?-?-?-?-?-?- MH-No FB, LOF. G ood Fm. Some irreg cramping. S&S labor reviewed. Rpt CBC today ACOG First Trimester First Trimester: Discussed Second Trimester Second Trimester: Signs and Symptoms of Labor, Selecting a care provider, Reproductive Life Planning & Contreception, Care Planning, Depression/Anxiety and Intimate Partner Violence; Discussed Tobacco Cessation Third Trimester Third Trimester: Pain Management Plans, Labor support person(s), Immediate Larc, Movement Monitoring, Signs and Symptoms of Preeclampsia and Education ROS Const Reports system reviewed and no additional complaints, except as documented GI Denies abdominal pain, Denies nausea and Denies vomiting Exam Const General: cooperative Nutritional Appearance: well nourished GI Palpation: soft, nontender and other (gravid) Results POC Urinalysis 2 Dip (Clinic) Office Urine Glucose Negative Last Edit by Brigitte Bunn on 11/25/24 10 :00 Office Urine Protein Negative Last Edit by Brigitte Bunn on 11/25/24 10 :00 Coding Level of Care Code Off vis,est,level 3 Diagnoses Encounter for supervision of normal first in third trimester Z34.03 Trimester: third trimester 33 weeks gestation of Z3A.33 Weeks of gestation: 33 weeks Cystic fibrosis carrier Z14.1 Pyelonephritis affecting in second trimester O23.02 Trimester: second trimester Anemia during in third trimester O99.013 Trimester: third trimester 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 Carrier for Cystic Fibrosis;FOB Karen Wilber negative, nl anatomy (3) Cystic fibrosis carrier: Status: Acute Comment: FOB neg. 06/04 (4) Pyelonephritis affecting : Status: Acute Qualifiers: Trimester: second trimester Qualified Code(s): O23.02 - Infections of kidney in , second trimester Comment: ceftriaxone x 2 days then keflex x 10 days, then daily keflex prophylaxis. (5) Anemia in : Status: Acute Qualifiers: Trimester: third trimester Qualified Code(s): O99.013 - Anemia complicating , third trimester Comment: add Fe (6) History of total splenectomy: Status: Acute Orders: Orders POC Urinalysis 2 Dip (Clinic) Today CBC W/Diff, Automated Today O99.019 - Anemia complicating , unspecified trimester Plan problem list reviewed and updated for most current plan of care and appropriate orders placed. Relevant counseling for the gestational age appropriate provided and ACOG education checklist updated. Continue routine care and follow up. 11/25/24 1017 <Electronically signed by Ramya gallegos NP AUXILIARY ENGINEER-C> Date _ Ramya Voss NP AUXILIARY ENGINEER-C Cosigner Signature: Date (if applicable) CC: ~ [facility] Work Phone: Progress note Author Leonor Phillips [facility] Note Date/Time December 09, 2024 9:55 am [facility] [address], [address] [place] [address] OFFICE VISIT Date of Service: 12/09/24 MR#: [id number] Acct: [id number] Name: AIMEE REDDY Rep #: [id number] : 2000 Provider: Dr. Cecil Phillips MD Age/Sex: 24/F Location: [facility] – [place] Status: Signed Intake Vital Signs 07/01/24 09:26 11/25/24 09:57 12/09/24 09:26 12/09/24 09:30 Height 5 ft 4 in 5 ft 4 in 5 ft 4 in 5 ft 4 in Weight: 148 lb 2 oz BMI 25.4 BP 127/76 H Intake Visit Reasons: 36wk ob 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 Is patient in pain?: No Allergies No Known Allergies Allergy (Verified 12/09/24 09:27) Medications ?Medication ?Instructions ?Recorded ?Confirmed ?Type PNV 153-FA 400 mcg-om3 35 mg-dha tab PO 04/2512/09/24 History 25 mg-epa 5 mg-fish oil chew tablet acetaminophen 325 mg tablet 650 mg PO Q4H PRN pain 07/1812/09/24 History (Tylenol) cephalexin 500 mg capsule 500 mg PO BID #60 caps 10/1412/09/24 Rx ferrous sulfate 325 mg (65 mg 325 mg PO QDAY 12/09/24 12/09/24 History iron) tablet Last Menstrual Period: 03/24/24 Zika: Zika virus screening: Negative : No PFSH PFSH Surgical History History of splenectomy Social History adopted: No household members: family current occupational status: employed current occupation: [employer] pets and animals: Yes pets and animals: dog(s) history of recent travel: No sexually active: Yes Smoking Status: Former smoker Electronic Cigarette Use: with nicotine alcohol intake: current alcohol intake frequency: a few times a month details: not while substance use type: does not use well-balanced diet: daily or most days caffeine: No eating out: 1-3 times/week during the past year weight has: remained stable what type of physical activity do you participate in: none ana m/alevism: Anabaptism seatbelt use: always do you feel safe at home: Yes additional social history: BF- Brenda- [place] History 1 Elective abortions Hx Para 0 Spontaneous abortions Hx # Term Pregnancies Ectopic pregnancies Hx # Pregnancies Multiple births # of living children HPI 36wk ob Details: AIMEE REDDY is a 24 year old who presents for routine OB visit. OB Visit TERESITA Calculator Estimated Delivery Date Method Current WG Current Estimate 01/07/25 Ultrasound #1 35w 6d Other Estimates 12/29/24 LMP (Certain) 37w 1d Expected Delivery Route/Plan Labor Preferences- CB/BF classes: enc labor support person: Karen labor intervention preferences: [] pain management options preferred: [] cut cord/dad catch: cord : yes PP control planned: discused discussed possible routes of delivery and associated risks: [] special requests: [] Specific Issue/Plans Covid status: [] Flu vaccine: [] Tdap vaccine: given Rhogam: NA LARC form signed: yes Problem list reviewed and updated with the most current plan of care details and appropriate orders placed. Relevant counseling for the gestational age provided. Continue routine care and follow up unless otherwise noted in visit notes/problem list details Initial Weight: 125 lb Date -?-?-?-?-?-?-?-?-?-?-?-?- EGA Weight BP Urine Prot -?-?-?-?-?-?-?-?-?-?-?-?- Glucose FHR FuHt Pres Dilation -?-?-?-?-?-?-?-?-?-?-?-?- Effaced St Visit Note 05/29/24 -?-?-?-?-?-?-?-?-?-?-?-?- 8w 1d 125 lb 4 oz (+4 oz) 127/76 -?-?-?-?-?-?-?-?-?-?-?-?- 166 -?-?-?-?--?-?-?-?-?-?-?-?- LC CRL 1.62 not con with LMP. LMP changed to 01/07/2025. desires nipt/carrier screening. will return in 2 weeks. 07/01/24 -?-?-?-?-?-?-?-?-?-?-?-?- 12w 6d 124 lb 6 oz (-10 oz) 107/61 Negative -?-?-?-?-?-?-?-?-?-?-?-?- Negative 145 -?-?-?-?-?-?-?-?-?-?-?-?- MH-No VB. Nausea problematic. Gayle sent. 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 Br US confirm FHT 07/28/24 -?-?-?-?-?-?-?-?-?-?-?-?- 16w 5d 127 lb (+2 lb) 112/70 Negative -?-?-?-?-?-?-?-?-?-?-?-?- Negative 142 -?-?-?-?-?-?-?-?-?-?-?-?- JV- no complaint s today other than FOB needs labs for CF. 08/26/24 -?-?-?-?-?-?-?-?-?-?-?-?- 20w 6d 129 lb (+4 lb) 108/62 Negative -?-?-?-?-?-?-?-?-?-?-?-?- Negative 135 -?-?-?-?-?-?-?-?-?-?-?-?- SM- no vb lof go od fm no reuglar ctx 09/22/24 -?-?-?-?-?-?-?-?-?-?-?-?- 24w 5d 137 lb 4 oz (+12 lb 4 oz) 98/60 Negative -?-?-?-?-?-?-?-?-?-?-?-?- Negative 138 -?-?-?-?-?-?-?-?-?-?-?-?- MH-No VB, LOF. G ood FM. 10/13/24 -?-?-?-?-?-?-?-?-?-?-?-?- 27w 5d 137 lb 8 oz (+12 lb 8 oz) 108/71 Negative -?-?-?-?-?-?-?-?-?-?-?-?- Negative 140 28 -?-?-?-?-?-?-?-?-?-?-?-?- SM- no vb lof go od fm no reuglar ctx labs today 10/27/24 -?-?-?-?-?-?-?-?-?-?-?-?- 29w 5d 141 lb 8 oz (+16 lb 8 oz) 119/73 Negative -?-?-?-?-?-?-?-?-?-?-?-?- Negative 130 30 -?-?-?-?-?-?-?-?-?-?-?-?- KW- no vb/lof/ct x. good fm. tdap and larc today. discussed anatomy US and many questions answered. 11/11/24 -?-?-?-?-?-?-?-?-?-?-?-?- 31w 6d 144 lb (+19 lb) 117/76 Negative -?-?-?-?-?-?-?-?-?-?-?-?- Negative 135 31 -?-?-?-?-?-?-?-?-?-?-?-?- JV- no lof, vagi nal bleeding, or dec fm today. she was having somewhat of a hard time feeling movement last night. has an anterior placenta. she is mildly anemic but was not taking pnv. she wants to go back on those before starting sloFE 11/25/24 -?-?-?-?-?-?-?-?-?-?-?-?- 33w 6d 146 lb 2 oz (+21 lb 2 oz) 112/82 Negative -?-?-?-?-?-?-?-?-?-?-?-?- Negative 147 32 -?-?-?-?-?-?-?-?-?-?-?-?- MH-No FB, LOF. G ood Fm. Some irreg cramping. S&S labor reviewed. Rpt CBC today 12/09/24 -?-?-?-?-?-?-?-?-?-?-?-?- 35w 6d 148 lb 2 oz (+23 lb 2 oz) 127/76 Negative -?-?-?-?-?-?-?-?-?-?-?-?- Negative 125 34 -?-?-?-?-?-?-?-?-?-?-?-?- SM- no vb lof go od fm no regular ctx measuring small growth US ordered ACOG First Trimester First Trimester: Discussed Second Trimester Second Trimester: Signs and Symptoms of Labor, Selecting a care provider, Reproductive Life Planning & Contreception, Care Planning, Depression/Anxiety and Intimate Partner Violence; Discussed Tobacco Cessation Third Trimester Third Trimester: Pain Management Plans, Labor support person(s), Immediate Larc, Movement Monitoring, Signs and Symptoms of Preeclampsia and [place] Education ROS Const Denies fever(s) GI Reports as per HPI and Denies abdominal pain Reports as per HPI, Denies abnormal vaginal bleeding, Denies dysuria and Denies vaginal discharge Exam Const General: healthy appearing, comfortable and no acute distress GI Inspection: normal to inspection Palpation: soft and nontender Results POC Urinalysis 2 Dip (Clinic) Office Urine Glucose Negative Last Edit by Ramya Ridley on 12/09/24 09:31 Office Urine Protein Negative Last Edit by Ramya Ridley on 12/09/24 09:31 Coding Level of Care Code OB Routine Diagnoses 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 Anemia during in third trimester O99.013 Trimester: third trimester Pyelonephritis affecting in second trimester O23.02 Trimester: second trimester Encounter for supervision of normal first in third trimester Z34.03 Trimester: third trimester Cystic fibrosis carrier Z14.1 35 weeks gestation of Z3A.35 Weeks of gestation: 35 weeks Assessment and Plan Assessment and Plan (1) History of total splenectomy: Status: Acute (2) Anemia in : Status: Acute Qualifiers: Trimester: third trimester Qualified Code(s): O99.013 - Anemia complicating , third trimester Comment: add Fe/stable (3) Pyelonephritis affecting : Status: Acute Qualifiers: Trimester: second trimester Qualified Code(s): O23.02 - Infections of kidney in , second trimester Comment: ceftriaxone x 2 days then keflex x 10 days, then daily keflex prophylaxis. (4) Supervision of normal first : Status: Acute Qualifiers: Trimester: third trimester Qualified Code(s): Z34.03 - Encounter for supervision of normal first , third trimester Comment: [id number], TERESITA [birth year], girl Colyousuf Gutierrez (5) Cystic fibrosis carrier: Status: Acute Comment: FOB neg. 06/04 (6) : Status: Acute Qualifiers: Weeks of gestation: 35 weeks Qualified Code(s): Z3A.35 - 35 weeks gestation of Comment: LR NIPT Carrier Neg. Carrier for Cystic Fibrosis;FOB Karen Wilber negative, nl anatomy Orders: Orders POC Urinalysis 2 Dip (Clinic) Today 12/09/24 0264 <Electronically signed by Leonor desir MD> Date _ Leonor Phillips MD Cosigner Signature: Date (if applicable) CC: ~ [facility] Work Phone: Progress note Author Leonor Phillips [facility] Note Date/Time December 15, 2024 10:1 6am [facility] [address] [place] [address], [address] [place] [address] OFFICE VISIT Date of Service: 12/15/24 MR#: [id number] Acct: [id number] Name: AIMEE REDDY Rep #: [id number] : 2000 Provider: Dr. Cecil Phillips MD Age/Sex: 24/F Location: [facility] – [place] Status: Signed Intake Vital Signs 07/01/24 09:26 12/09/24 09:30 12/15/24 09:36 Height 5 ft 4 in 5 ft 4 in 5 ft 4 in Weight: 152 lb BMI 26.1 BP 125/82 H Intake Visit Reasons: 37wk ob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 Relationship Specialty Start Date End Date Spring, Jennifer Vasquez APRN - SANTY MILESI: [phone] PCP - General 11/16/21 Team Status: Inactive Member Role Status Dates Kassi Ontiveros CNM Attending Provider Active Start: May 29, 2024 End: May 29, 2024 Team Status: Inactive Member Role Status Dates Kassi Ontiveros CNM Attending Provider Active Start: May 29, 2024 End: May 29, 2024 Kassi Ontiveros CNM Referring Provider Active Start: May 29, 2024 End: May 29, 2024 Team Status: Inactive Member Role Status Dates Kassi Ontiveros CNM Attending Provider Active Start: June 19, 2024 End: June 19, 2024 Kassi Ontiveros CNM Referring Provider Active Start: June 19, 2024 End: June 19, 2024 Team Status: Inactive Member Role Status Dates Ramya Voss NP, AUXILIARY ENGINEER-C Attending Provider Active Start: July 01, 2024 End: July 01, 2024 Team Status: Inactive Member Role Status Dates Dr. Mimi Thomas DO Attending Provider Activ e Start: July 28, 2024 End: July 28, 2024 Team Status: Inactive Member Role Status Dates Dr. Leonor Phillips MD Attending Provider Active Start: August 26, 2024 End: August 26, 2024 Team Status: Inactive Member Role Status Dates Ramya Voss NP, AUXILIARY ENGINEER-C Attending Provider Active Start: September 22, 2024 End: September 22, 2024 Team Status: Inactive Member Role Status Dates Dr. Mimi Thomas DO Admit Provider Active Start: September 22, 2024 End: September 23, 2024 Dr. Mimi Thomas DO Attending Provider Activ e Start: September 22, 2024 End: September 23, 2024 Dr. Mimi Thomas DO Referring Provider Activ e Start: September 22, 2024 End: September 23, 2024 Team Status: Active Member Role Status Dates Dr. Mimi Thomas DO Admit Provider Active Start: September 22, 2024 Dr. Mimi Thomas DO Attending Provider Activ e Start: September 22, 2024 Dr. Mimi Thomas DO Referring Provider Activ e Start: September 22, 2024 Dr. Mimi Thomas DO Other Provider Active Start: September 22, 2024 Team Status: Active Member Role Status Dates Dr. Mimi Thomas DO Admit Provider Active Start: September 23, 2024 Dr. Mimi Thomas DO Referring Provider Activ e Start: September 23, 2024 Dr. Mimi Thomas DO Other Provider Active Start: September 23, 2024 Dr. 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 Relationship Specialty Start Date End Date No, Physician [facility] PCP - General 04/22/22 Team Status: Active Member Role Status Dates No Primary Care Physician Primary Care Provider Active Team Status: Inactive Member Role Status Dates No Primary Care Physician Primary Care Provider Active Start: October 13, 2024 End: October 13, 2024 Ramya Voss AUXILIARY ENGINEER, AUXILIARY ENGINEER-C Attending Provider Active Start: October 13, 2024 End: October 13, 2024 Ramya Voss AUXILIARY ENGINEER, AUXILIARY ENGINEER-C Referring Provider Active Start: October 13, 2024 End: October 13, 2024 Team Status: Inactive Member Role Status Dates Dr. Leonor Phillips MD Attending Provider Active Start: October 13, 2024 End: October 13, 2024 No Primary Care Physician Primary Care Provider Active Start: October 13, 2024 End: October 13, 2024 No Primary Care Physician Referring Provider Active Start: October 13, 2024 End: October 13, 2024 Team Status: Inactive Member Role Status Dates No Primary Care Physician Primary Care Provider Active Start: October 15, 2024 End: October 15, 2024 No Primary Care Physician Referring Provider Active Start: October 15, 2024 End: October 15, 2024 Ramya Voss AUXILIARY ENGINEER, AUXILIARY ENGINEER-C Attending Provider Active Start: October 15, 2024 End: October 15, 2024 Team Status: Active Member Role Status Dates No Primary Care Physician Primary Care Provider Active Start: October 15, 2024 Ramya Voss AUXILIARY ENGINEER, AUXILIARY ENGINEER-C Attending Provider Active Start: October 15, 2024 Ramya Voss AUXILIARY ENGINEER, AUXILIARY ENGINEER-C Referring Provider Active Start: October 15, 2024 Team Status: Inactive Member Role Status Dates No Primary Care Physician Primary Care Provider Active Start: October 15, 2024 End: October 15, 2024 Ramya Voss AUXILIARY ENGINEER, AUXILIARY ENGINEER-C Attending Provider Active Start: October 15, 2024 End: October 15, 2024 Ramya Voss AUXILIARY ENGINEER, AUXILIARY ENGINEER-C Referring Provider Active Start: October 15, 2024 End: October 15, 2024 Team Status: Inactive Member Role Status Dates Yvrose Mcmillan CNM Attending Provider Active S tart: October 27, 2024 End: October 27, 2024 No Primary Care Physician Primary Care Provider Active Start: October 27, 2024 End: October 27, 2024 No Primary Care Physician Referring Provider Active Start: October 27, 2024 End: October 27, 2024 Team Status: Inactive Member Role Status Dates Dr. Mimi Thomas DO Attending Provider Activ e Start: November 11, 2024 End: November 11, 2024 No Primary Care Physician Primary Care Provider Active Start: November 11, 2024 End: November 11, 2024 No Primary Care Physician Referring Provider Active Start: November 11, 2024 End: November 11, 2024 Team Status: Inactive Member Role Status Dates Ramya Voss AUXILIARY ENGINEER, AUXILIARY ENGINEER-C Attending Provider Active Start: November 25, 2024 End: November 25, 2024 No Primary Care Physician Primary Care Provider Active Start: November 25, 2024 End: November 25, 2024 No Primary Care Physician Referring Provider Active Start: November 25, 2024 End: November 25, 2024 Team Status: Inactive Member Role Status Dates No Primary Care Physician Primary Care Provider Active Start: November 25, 2024 End: November 25, 2024 Ramya Voss AUXILIARY ENGINEER, AUXILIARY ENGINEER-C Attending Provider Active Start: November 25, 2024 End: November 25, 2024 Ramya Voss AUXILIARY ENGINEER, AUXILIARY ENGINEER-C Referring Provider Active Start: November 25, 2024 End: November 25, 2024 Team Status: Active Member Role Status Dates No Primary Care Physician Primary Care Provider Active Start: November 25, 2024 Ramya Voss AUXILIARY ENGINEER, AUXILIARY ENGINEER-C Attending Provider Active Start: November 25, 2024 Ramya Voss AUXILIARY ENGINEER, AUXILIARY ENGINEER-C Referring Provider Active Start: November 25, 2024 Team Status: Inactive Member Role Status Dates Dr. Leonor Phillips MD Attending Provider Active Start: December 09, 2024 End: December 09, 2024 No Primary Care Physician Primary Care Provider Active Start: December 09, 2024 End: December 09, 2024 No Primary Care Physician Referring Provider Active Start: December 09, 2024 End: December 09, 2024 Team Status: Active Member Role Status Dates No Primary Care Physician Primary Care Provider Active Start: December 11, 2024 Dr. Leonor Phillips MD Attending Provider Active Start: December 11, 2024 Dr. Leonor Phillips MD Referring Provider Active Start: December 11, 2024 Team Status: Inactive Member Role Status Dates Dr. Leonor Phillips MD Attending Provider Active Start: December 15, 2024 End: December 15, 2024 No Primary Care Physician Primary Care Provider Active Start: December 15, 2024 End: December 15, 2024 No Primary Care Physician Referring Provider Active Start: December 15, 2024 End: December 15, 2024 Team Status: Inactive Member Role Status Dates No Primary Care Physician Primary Care Provider Active Start: December 11, 2024 End: December 11, 2024 Dr. Leonor Phillips MD Attending Provider Active Start: December 11, 2024 End: December 11, 2024 Dr. Leonor Phillips MD Referring Provider Active Start: December 11, 2024 End: December 11, 2024 Team Status: Active Member Role Status Dates No Primary Care Physician Primary Care Provider Active Start: December 15, 2024 Dr. Leonor Phillips MD Attending Provider Active Start: December 15, 2024 Dr. Leonor Phillips MD Referring Provider Active Start: December 15, 2024 Team Status: Active Member Role/Relationship Status Dates No Primary Care Physician Primary Care Provider Active Team Status: Inactive Member Role/Relationship Status Dates Dr. Leonor Phillips MD Attending Provider Active Start: August 26, 2024 End: August 26, 2024 Team Status: Inactive Member Role/Relationship Status Dates Ramya Voss AUXILIARY ENGINEER, AUXILIARY ENGINEER-C Attending Provider Active Start: September 22, 2024 End: September 22, 2024 Team Status: Inactive Member Role/Relationship Status Dates Dr. Mimi Thomas DO Admit Provider Active Start: September 22, 2024 End: September 23, 2024 Dr. Mimi Thomas DO Attending Provider Activ e Start: September 22, 2024 End: September 23, 2024 Dr. Mimi Thomas DO Referring Provider Activ e Start: September 22, 2024 End: September 23, 2024 Team Status: Active Member Role/Relationship Status Dates Dr. Mimi Thomas DO Admit Provider Active Start: September 22, 2024 Dr. Mimi Thomas DO Attending Provider Activ e Start: September 22, 2024 Dr. Mimi Thomas DO Referring Provider Activ e Start: September 22, 2024 Dr. Mimi Thomas DO Other Provider Active Start: September 22, 2024 Team Status: Active Member Role/Relationship Status Dates Dr. Mimi Thomas DO Admit Provider Active Start: September 23, 2024 Dr. Mimi Thomas DO Referring Provider Activ e Start: September 23, 2024 Dr. Mimi Thomas DO Other Provider Active Start: September 23, 2024 Dr. Leonor Phillips MD Attending Provider Active Start: September 23, 2024 Team Status: Inactive Member Role/Relationship Status Dates No Primary Care Physician Primary Care Provider Active Start: October 13, 2024 End: October 13, 2024 Ramya Voss AUXILIARY ENGINEER, AUXILIARY ENGINEER-C Attending Provider Active Start: October 13, 2024 End: October 13, 2024 Ramya Voss AUXILIARY ENGINEER, AUXILIARY ENGINEER-C Referring Provider Active Start: October 13, 2024 End: October 13, 2024 Team Status: Inactive Member Role/Relationship Status Dates Dr. Leonor Phillips MD Attending Provider Active Start: October 13, 2024 End: October 13, 2024 No Primary Care Physician Primary Care Provider Active Start: October 13, 2024 End: October 13, 2024 No Primary Care Physician Referring Provider Active Start: October 13, 2024 End: October 13, 2024 Team Status: Inactive Member Role/Relationship Status Dates No Primary Care Physician Primary Care Provider Active Start: October 15, 2024 End: October 15, 2024 No Primary Care Physician Referring Provider Active Start: October 15, 2024 End: October 15, 2024 Ramya Voss NP, AUXILIARY ENGINEER-C Attending Provider Active Start: October 15, 2024 End: October 15, 2024 Team Status: Inactive Member Role/Relationship Status Dates No Primary Care Physician Primary Care Provider Active Start: October 15, 2024 End: October 15, 2024 Ramya Voss AUXILIARY ENGINEER, AUXILIARY ENGINEER-C Attending Provider Active Start: October 15, 2024 End: October 15, 2024 Ramya Voss AUXILIARY ENGINEER, AUXILIARY ENGINEER-C Referring Provider Active Start: October 15, 2024 End: October 15, 2024 Team Status: Inactive Member Role/Relationship Status Dates Yvrose Mcmillan CNM Attending Provider Active S tart: October 27, 2024 End: October 27, 2024 No Primary Care Physician Primary Care Provider Active Start: October 27, 2024 End: October 27, 2024 No Primary Care Physician Referring Provider Active Start: October 27, 2024 End: October 27, 2024 Team Status: Inactive Member Role/Relationship Status Dates Dr. Mimi Thomas DO Attending Provider Activ e Start: November 11, 2024 End: November 11, 2024 No Primary Care Physician Primary Care Provider Active Start: November 11, 2024 End: November 11, 2024 No Primary Care Physician Referring Provider Active Start: November 11, 2024 End: November 11, 2024 Team Status: Inactive Member Role/Relationship Status Dates Ramya Voss AUXILIARY ENGINEER, AUXILIARY ENGINEER-C Attending Provider Active Start: November 25, 2024 End: November 25, 2024 No Primary Care Physician Primary Care Provider Active Start: November 25, 2024 End: November 25, 2024 No Primary Care Physician Referring Provider Active Start: November 25, 2024 End: November 25, 2024 Team Status: Inactive Member Role/Relationship Status Dates No Primary Care Physician Primary Care Provider Active Start: November 25, 2024 End: November 25, 2024 Ramya Voss AUXILIARY ENGINEER, AUXILIARY ENGINEER-C Attending Provider Active Start: November 25, 2024 End: November 25, 2024 Ramya Voss AUXILIARY ENGINEER, AUXILIARY ENGINEER-C Referring Provider Active Start: November 25, 2024 End: November 25, 2024 Team Status: Inactive Member Role/Relationship Status Dates Dr. Leonor Phillips MD Attending Provider Active Start: December 09, 2024 End: December 09, 2024 No Primary Care Physician Primary Care Provider Active Start: December 09, 2024 End: December 09, 2024 No Primary Care Physician Referring Provider Active Start: December 09, 2024 End: December 09, 2024 Team Status: Inactive Member Role/Relationship Status Dates No Primary Care Physician Primary Care Provider Active Start: December 11, 2024 End: December 11, 2024 Dr. Leonor Phillips MD Attending Provider Active Start: December 11, 2024 End: December 11, 2024 Dr. Leonor Phillips MD Referring Provider Active Start: December 11, 2024 End: December 11, 2024 Team Status: Inactive Member Role/Relationship Status Dates Dr. Leonor Phillips MD Attending Provider Active Start: December 15, 2024 End: December 15, 2024 No Primary Care Physician Primary Care Provider Active Start: December 15, 2024 End: December 15, 2024 No Primary Care Physician Referring Provider Active Start: December 15, 2024 End: December 15, 2024 Team Status: Inactive Member Role/Relationship Status Dates No Primary Care Physician Primary Care Provider Active Start: December 15, 2024 End: December 15, 2024 Dr. Leonor Phillips MD Attending Provider Active Start: December 15, 2024 End: December 15, 2024 Dr. Leonor Phillips MD Referring Provider Active Start: December 15, 2024 End: December 15, 2024 Team Status: Inactive Member Role/Relationship Status Dates No Primary Care Physician Primary Care Provider Active Start: December 23, 2024 End: December 23, 2024 No Primary Care Physician Referring Provider Active Start: December 23, 2024 End: December 23, 2024 Dr. Mimi Thomas DO Attending Provider Activ e Start: December 23, 2024 End: December 23, 2024 Team Status: Inactive Member Role/Relationship Status Dates Ramya Voss NP, AUXILIARY ENGINEER-C Attending Provider Active Start: September 22, 2024 End: September 22, 2024 Team Status: Inactive Member Role/Relationship Status Dates Dr. Mimi Thomas DO Admit Provider Active Start: September 22, 2024 End: September 23, 2024 Dr. Mimi Thomas DO Attending Provider Activ e Start: September 22, 2024 End: September 23, 2024 Dr. Mimi Thomas DO Referring Provider Activ e Start: September 22, 2024 End: September 23, 2024 Team Status: Active Member Role/Relationship Status Dates Dr. Mimi Thomas DO Admit Provider Active Start: September 22, 2024 Dr. Mimi Thomas DO Attending Provider Activ e Start: September 22, 2024 Dr. Mimi Thomas DO Referring Provider Activ e Start: September 22, 2024 Dr. Mmii Thomas DO Other Provider Active Start: September 22, 2024 Team Status: Active Member Role/Relationship Status Dates Dr. Mimi Thomas DO Admit Provider Active Start: September 23, 2024 Dr. Mimi Thomas DO Referring Provider Activ e Start: September 23, 2024 Dr. Mimi Thomas DO Other Provider Active Start: September 23, 2024 Dr. Leonor Phillips MD Attending Provider Active Start: September 23, 2024 Team Status: Inactive Member Role/Relationship Status Dates No Primary Care Physician Primary Care Provider Active Start: October 13, 2024 End: October 13, 2024 Ramya Voss AUXILIARY ENGINEER, AUXILIARY ENGINEER-C Attending Provider Active Start: October 13, 2024 End: October 13, 2024 Ramya Voss AUXILIARY ENGINEER, AUXILIARY ENGINEER-C Referring Provider Active Start: October 13, 2024 End: October 13, 2024 Team Status: Inactive Member Role/Relationship Status Dates Dr. Leonor Phillips MD Attending Provider Active Start: October 13, 2024 End: October 13, 2024 No Primary Care Physician Primary Care Provider Active Start: October 13, 2024 End: October 13, 2024 No Primary Care Physician Referring Provider Active Start: October 13, 2024 End: October 13, 2024 Team Status: Inactive Member Role/Relationship Status Dates No Primary Care Physician Primary Care Provider Active Start: October 15, 2024 End: October 15, 2024 No Primary Care Physician Referring Provider Active Start: October 15, 2024 End: October 15, 2024 Ramya Voss AUXILIARY ENGINEER, AUXILIARY ENGINEER-C Attending Provider Active Start: October 15, 2024 End: October 15, 2024 Team Status: Inactive Member Role/Relationship Status Dates No Primary Care Physician Primary Care Provider Active Start: October 15, 2024 End: October 15, 2024 Ramya Voss AUXILIARY ENGINEER, AUXILIARY ENGINEER-C Attending Provider Active Start: October 15, 2024 End: October 15, 2024 Ramya Voss AUXILIARY ENGINEER, AUXILIARY ENGINEER-C Referring Provider Active Start: October 15, 2024 End: October 15, 2024 Team Status: Inactive Member Role/Relationship Status Dates Yvrose Mcmillan CNM Attending Provider Active S tart: October 27, 2024 End: October 27, 2024 No Primary Care Physician Primary Care Provider Active Start: October 27, 2024 End: October 27, 2024 No Primary Care Physician Referring Provider Active Start: October 27, 2024 End: October 27, 2024 Team Status: Inactive Member Role/Relationship Status Dates Dr. Mimi Thomas DO Attending Provider Activ e Start: November 11, 2024 End: November 11, 2024 No Primary Care Physician Primary Care Provider Active Start: November 11, 2024 End: November 11, 2024 No Primary Care Physician Referring Provider Active Start: November 11, 2024 End: November 11, 2024 Team Status: Inactive Member Role/Relationship Status Dates Ramya Voss AUXILIARY ENGINEER, AUXILIARY ENGINEER-C Attending Provider Active Start: November 25, 2024 End: November 25, 2024 No Primary Care Physician Primary Care Provider Active Start: November 25, 2024 End: November 25, 2024 No Primary Care Physician Referring Provider Active Start: November 25, 2024 End: November 25, 2024 Team Status: Inactive Member Role/Relationship Status Dates No Primary Care Physician Primary Care Provider Active Start: November 25, 2024 End: November 25, 2024 Ramya Voss AUXILIARY ENGINEER, AUXILIARY ENGINEER-C Attending Provider Active Start: November 25, 2024 End: November 25, 2024 Ramya Voss AUXILIARY ENGINEER, AUXILIARY ENGINEER-C Referring Provider Active Start: November 25, 2024 End: November 25, 2024 Team Status: Inactive Member Role/Relationship Status Dates Dr. Leonor Phillips MD Attending Provider Active Start: December 09, 2024 End: December 09, 2024 No Primary Care Physician Primary Care Provider Active Start: December 09, 2024 End: December 09, 2024 No Primary Care Physician Referring Provider Active Start: December 09, 2024 End: December 09, 2024 Team Status: Inactive Member Role/Relationship Status Dates No Primary Care Physician Primary Care Provider Active Start: December 11, 2024 End: December 11, 2024 Dr. Leonor Phillips MD Attending Provider Active Start: December 11, 2024 End: December 11, 2024 Dr. Leonor Phillips MD Referring Provider Active Start: December 11, 2024 End: December 11, 2024 Team Status: Inactive Member Role/Relationship Status Dates Dr. Leonor Phillips MD Attending Provider Active Start: December 15, 2024 End: December 15, 2024 No Primary Care Physician Primary Care Provider Active Start: December 15, 2024 End: December 15, 2024 No Primary Care Physician Referring Provider Active Start: December 15, 2024 End: December 15, 2024 Team Status: Inactive Member Role/Relationship Status Dates No Primary Care Physician Primary Care Provider Active Start: December 15, 2024 End: December 15, 2024 Dr. Leonor Phillips MD Attending Provider Active Start: December 15, 2024 End: December 15, 2024 Dr. Leonor Phillips MD Referring Provider Active Start: December 15, 2024 End: December 15, 2024 Team Status: Inactive Member Role/Relationship Status Dates No Primary Care Physician Primary Care Provider Active Start: December 23, 2024 End: December 23, 2024 No Primary Care Physician Referring Provider Active Start: December 23, 2024 End: December 23, 2024 Dr. Mimi Thomas DO Attending Provider Activ e Start: December 23, 2024 End: December 23, 2024 Team Status: Inactive Member Role/Relationship Status Dates No Primary Care Physician Primary Care Provider Active Start: December 30, 2024 End: December 30, 2024 No Primary Care Physician Referring Provider Active Start: December 30, 2024 End: December 30, 2024 Dr. Mimi Thomas DO Attending Provider Activ e Start: December 30, 2024 End: December 30, 2024 Team Status: Inactive Member Role/Relationship Status Dates No Primary Care Physician Primary Care Provider Active Start: January 07, 2025 End: January 07, 2025 No Primary Care Physician Referring Provider Active Start: January 07, 2025 End: January 07, 2025 Dr. Mimi Thomas DO Attending Provider Activ e Start: January 07, 2025 End: January 07, 2025 Scheduled Active and Recently Administ ered Medications (unrecognized section and content) Medication Order 09/20/2024 09/21/2024 09/22/2024 cefTRIAXone (ROCEPHIN) 1,000 mg in sterile water 10 mL IV syringe (COMPLETED) 1,000 mg, IntraVENous, ONCE, On Sat09/22/24 at 1415, For 1 dose, Administer as slow IV Push over 5 mins Reconstitute 1 g vials with 9.6 mL of designated diluent to produce a 100 mg/mL solution. 1420 (Given - Provid er: Vernell Novak RN) FOR RECORDS PERTAINING TO PATIENTS WHO ARE OR HAVE BEEN ENROLLED IN A CHEMICAL DEPENDENCY/SUBSTANCEABUSE PROGRAM, SOME INFORMATION MAY BE OMITTED. This clinical summary was aggregated from multiple sources. Caution should be exercised in using it in the provision of clinical care. This summary normalizes information from multiple sources, and as a consequence, information in this document may materially change the coding, format and clinical context of patient data. In addition, data may be omitted in some cases. CLINICAL DECISIONS SHOULD BE BASED ON THE PRIMARY CLINICAL RECORDS. [employer] [facility]. provides no warranty or guarantee of the accuracy or completeness of information in this document.
--- NOTE | 2025-01-11 23:32 | OB.TRI.PN_ITS ---
Progress Notes Date of Service: 01/11/25 Progress Note: Patient presents for triage evaluation secondary to uterine cramping at 40 weeks FHT: 140 Moderate variability reactive no decelerations category I tracing [place]: mild cramping q 2-5 minutes Contractions Assessment and plan: no cervical change after 2 hours, Reactive NST, reassuring maternal and status patient discharged to home to follow-up in office or for IOL on . See problem list details for additional plan information. Charges/Coding Multi Select Codes Urinary/Genital Urinary/Genital CPT Codes: 24166-71 non-stress test Interp Assessment & Plan (1) Uterine contractions during : COMMENT: no cervical change. D/C home (2) History of total splenectomy: (3) Anemia in : QUALIFIERS: Trimester: third trimester Qualified Code(s): O99.013 - Anemia complicating , third trimester COMMENT: add Fe/stable (4) Pyelonephritis affecting : QUALIFIERS: Trimester: second trimester Qualified Code(s): O23.02 - Infections of kidney in , second trimester COMMENT: ceftriaxone x 2 days then keflex x 10 days, then daily keflex prophylaxis. (5) Cystic fibrosis carrier: COMMENT: FOB neg. 06/04 (6) Supervision of normal first : QUALIFIERS: Trimester: third trimester Qualified Code(s): Z34.03 - Encounter for supervision of normal first , third trimester COMMENT: [id number], TERESITA 12/29/24, girl Guerrero Gutierrez (7) : QUALIFIERS: Weeks of gestation: 40 weeks Qualified Code(s): Z3A.40 - 40 weeks gestation of COMMENT: GBS Negative, LR NIPT Carrier Neg. Carrier for Cystic Fibrosis;FOB Karen Merino negative, nl anatomy
[2025-01-12 05:12] VITALS: PULSE 116; RESP 14; TEMP 36.3; O2SAT 98
[2025-01-12 05:13] VITALS: BP 128/72; PULSE 112
== END 2025-01-11 23:16 | disposition home or self-care (01) ==
LOC: WPOUT 20:55 → WP 20:56
PROVIDERS: Visit Provider Advanced Practice Midwife
DX: O47.1 False labor at or after 37 completed weeks of gestation (principal); O99.013 Anemia complicating pregnancy, third trimester; O23.03 Infections of kidney in pregnancy, third trimester; Z3A.40 40 weeks gestation of pregnancy; Z14.1 Cystic fibrosis carrier
CPT/HCPCS: 59025; 59050 ×2; G0378 ×2; 99221

== ENCOUNTER 2025-01-12 23:29 | Inpatient (IN) | payer MEDICAID, SELFPAY ==
[2025-01-12 23:15] VITALS: BMI 25.9
--- OUTSIDE RECORDS SUMMARY | 2025-01-12 23:18 | XMS RPT_ITS | CCD ---
Author Organization [facility] Care Team Providers Care Guest House Manager Name Role Phone Jennifer Haley Primary Care Provider Unavailable Primary Care Provider Unavailzena e Jennifer Haley Primary Care Provider [phone] RIC LANTIGUA Attending Unavailable Jennifer Haley Unavailable Arianna Wyatt Unavailable Unavailable JENNIFER HALEY Attending Unavailable JNENIFER HALEY Primary Care Unavailable Britt Aguilar Primary Care Physician [phone] JULIETH WATTERS Admitting Unavailable SPRINGJENNIFER Primary Care Unavailable No, Physician Primary Care Provider Unavailabl Jia Sutton Unavailable Spring, . Jennifer M Primary Care Unavaila Jenn Walsh Attending Unavailab Kevin Alexander Attending Unavailable Spring, . Jennifer M Primary Care Unavaila Kevin Kamara Attending Unavailable Spring, . Jennifer M Primary Care Unavaila adore Lindsay, Ms. Jia Mckeon Attending Unava ilable Spring, Ms. Rodriguez M Primary Care UnavailKevin Mcgregor Unavailable Unavailable DANIELLE VOSS Referring Unava ilable DANIELLE VOSS Attending Unava ilable JOSÉ, PHYSICIAN Primary Care Unavailable MICHAEL ADAMSON Attending Unavailable RAMYA VOSS Referring Unavailable [place], [facility] [place] Unavailable Spring T RAIL TURNER - Jennifer MADERA Primary Care Pro vider Kassi Ontiveros CNM Attending Provider [phone] Kassi Ontiveros CNM Referring Provider Ramya Bryant Attending Provider Joce Caldera DO, Dr. Le Attending Provider Jacqueline VERDE, Dr. Galvez Attending Provider Joce Caldera DO, Dr. Le Admit Provider [phone] Joce Caldera DO, Dr. Le Referring Provider Joce Caldera DO, Dr. Le Other Provider [phone] JAMARI DELGADILLO Attending Unavailable JENNIFER HALEY. Primary Care Unavailable JAMARI DELGADILLO Attending Unavailable JENNIFER HALEY Primary Care Unavailable SANDRA CHURCH Attending Unavailabl e NO, PHYSICIAN Primary Care Unavailable JUAN RG Attending Unavailab le NO, PHYSICIAN Primary Care Unavailable NO, PHYSICIAN Primary Care Unavailable DANIELLE VOSS Attending Unava ilable Care Physician, No Primary Primary Care Provider Unavailable Bipin MILES-Ramya Manning Referring Provider [phone] Care Physician, No Primary Referring Provider Un available Ramya Bryant Attending Provider [phone] Yvrose Mcmillan CNM Attending Provider [phone] Joce Caldera DO, Dr. Le Attending Provider Jacqueline VERDE, Dr. Galvez Referring Provider [phone] Jacqueline VERDE, Dr. Galvez Attending Provider [phone] Ramya Voss NP Attending Unavailable Care Physician, No Primary Referring Unava ilable Mimi Thomas Attending Unavailabl e Care Physician, No Primary Primary Care Unava ilable Joce Caldera, Mimi Attending Unavailabl e Vande Velde, Mimi Consulting Unavailabl e Vande Velde, Mimi Admitting Unavailabl e Vande Velde, Mimi Referring Unavailabl e Vande Velde, Mimi Consulting Unavailabl e Vande Velearnest, Mimi Admitting Unavailabl e Vande Velearnest, Mimi Referring Unavailabl e Leonor Phillips Attending Unavailable Kassi Ontiveros Referring Unavailable Kassi Ontiveros Attending Unavailable Vande Mimi Caldera Attending Unavailabl e Vande Velde, Mimi Admitting Unavailabl e Vande Velde, Mimi Referring Unavailabl e Care Physician, No Primary Primary Care Unava ilable Bipin BILLET HEATER, Ramya Attending Unavailable Bipin BILLET HEATER, Ramya Referring Unavailable [place]ipin BILLET HEATER, Ramya Referring Unavailable Bipin BILLET HEATER, Ramya Attending Unavailable Care Physician, No Primary Primary Care Unava ilable Kassi Ontiveros Attending Unavailable Mercedez Justin Attending Unavailable Care Physician, No Primary Referring Unava ilable Bipin BILLET HEATER, Ramya Attending Unavailable Care Physician, No Primary Primary Care Unava ilable Care Physician, No Primary Referring Unava ilable Care Physician, No Primary Primary Care Unava ilable [place] BILLET HEATER, Ramya Attending Unavailable Care Physician, No Primary Referring Unava ilable Care Physician, No Primary Primary Care Unava ilable Yvrose Mcmillan Attending Unavailable Care Physician, No Primary Referring Unava ilable Leonor Phillips Attending Unavailable Care Physician, No Primary Primary Care Unava ilable Care Physician, No Primary Referring Unava ilable Marcanthony, Leonor Attending Unavailable Care Physician, No Primary Primary Care Unava ilable Care Physician, No Primary Referring Unava ilable Care Physician, No Primary Primary Care Unava ilable FrankanthLeonor reed Attending Unavailable Care Physician, No Primary Primary Care Unava ilable Care Physician, No Primary Referring Unava ilable Mimi Thomas Attending Unavailabl e Care Physician, No Primary Primary Care Unava ilable [place] BILLET HEATER, Ramya Attending Unavailable [place] BILLET HEATER, Ramya Referring Unavailable Care Physician, No Primary Primary Care Unava ilable Marcanthony, Leonor Attending Unavailable Marcanthony, Leonor Referring Unavailable Care Physician, No Primary Primary Care Unava ilable Marcanthony, Leonor Referring Unavailable MarcanthLeonor reed Attending Unavailable Care Physician, No Primary Primary Care Unava ilable Care Physician, No Primary Referring Unava ilable Mimi Thomas Attending Unavailabl e Kassi Ontiveros Referring Unavailable Kassi Ontiveros Attending Unavailable Care Physician, No Primary Primary Care Unava ilable Care Physician, No Primary Referring Unava ilable Mimi Thomas Attending Unavailabl e [place] BILLET HEATER, Ramya Attending Unavailable Traceee VelMimi tinoco Attending Unavailabl e Marcanthony, Leonor Attending Unavailable Medications Current Medications Medication Drug Class(es) Dates Sig (Normalized) Sig (Original) acetaminophen 325 mg oral tablet (17 sources) Start: 09-22-2024 take 2 tablets by [...] eye. ferrous sulfate 325 mg oral tablet (8 sources) Start: 025 take 1 tablet by [...] 01/27/22 Stop Date: 02/01/22 Status: Ordered Pnv No.600-Bz-Nz1-Dha-Epa -Fish 400 mcg-35 mg- 25 mg-5 mg tablet,chewable (14 sources) Start: Pnv No.142-Ta-Zn9-Dha-Ep a-Fish 400 mcg-35 mg- 25 mg-5 mg tablet,chewable Active {tbl} PO May 14, 2024 1:00am Start: 05-14-2024 Pnv No.153-Fa- Iv7-Mje-Rwy-Fish 400 mcg-35 mg- 25 mg-5 mg tablet,chewable [...] Intravenous, Once as needed, nausea, vomiting, Starting Tu02/24/19 at 0805, For 1 dose, PACU (only) [...] Every 6 hours PRN, nausea, vomiting, Starting 11/05/18 at 1737 take 1 tablet by naomi [...] Problem Classification Problem Date Documented Date Episodic/Chronic Abdominal pain (20 sources) Abdominal pain; Translations: [Unspecified abdominal pain] Onset: 02-04-2019 02-04-2019 Episodic Comment on above: RUQ US gallbladder Allergic reactions (19 sources) Environmental allergy; Translations: [...] Onset: 07-13-2024 08-26-2024 Episodic Comment on above: [id number], TERESITA 12/29/24, girl Colbie BF Brenda LR NIPT Carrier Neg. Carrier for Cystic Fibrosis;FOB Karen Wilber negative LR NIPT Carrier Neg. Carrier for [...] Classification Problem Date Documented Da te Episodic/Chronic Biliary tract disease (14 sources) Biliary dyskinesia; [...] Test Name Value Interpretation Reference Range Facility Laboratory - Chemistry and C hemistry - challengeOrdered By: Mimi Caldera on 01-07-2025 Glucose Ql (U) Negative [facility] - UrinalysisOrder ed By: Mimi Caldera on 01-07-2025 Protein Ql (U) Negative [facility] Office Visit Reporton 01-07-2025 [place] [facility] Office Visit Report [facility] [address], [address] [place] [address] OFFICE VISIT Date of Service: 01/07/25 MR#: [id number] Acct: [id number] Name: AIMEE REDDY Rep #: [id number] : 2000 Provider: Dr. Mimi Garcia, Age/Sex: 24/F Location: [facility] [place] Status: Signed Intake Vital Signs 11/11/24 09:33 12/30/24 14:13 01/07/25 11:24 Height 5 ft 4 in 5 ft 4 in 5 ft 4 in Weight: 150 lb 2 oz BMI 25.7 BP 134/88 H Intake Visit Reasons: 40 wk ob *Happy due date* Chief Complaint: 40wk OB Academic Interventionist Required: No Is patient in pain?: No [...] family current occupational status: employed current occupation: [employer] pets and animals: Yes pets and animals: [...] activity do you participate in: none ana m/congregation: Anabaptist seatbelt use: always do you feel safe at home: Yes additional social history: CARLO Coley History 1 Elective abortions Hx Para [...] lo f (more content not included)... Normal [facility] - Chemistry and C hemistry - challengeOrdered By: Mimi Caldera on 12-30-2024 Glucose Ql (U) Negative [facility] - UrinalysisOrder ed By: Mimi Caldera on 12-30-2024 Protein Ql (U) Negative [facility] Office Visit Reporton 12-30-2024 [place] [facility] Office Visit Report [facility] [address], [address] [place] [address] OFFICE VISIT Date of Service: 12/30/24 MR#: [id number] Acct: [id number] Name: AIMEE REDDY Rep #: [id number] : 2000 Provider: Dr. Mimi Garcia, Age/Sex: 24/F Location: [facility] [place] Status: Signed Intake Vital Signs 11/11/24 09:33 12/23/24 15:26 12/30/24 14:13 Height 5 ft 4 in 5 ft 4 in 5 ft 4 in Weight: 150 lb BMI 25.7 BP 128/86 H Intake Visit Reasons: 39 wk ob Academic Interventionist Required: No Is patient in pain?: No [...] family current occupational status: employed current occupation: [employer] pets and animals: Yes pets and animals: [...] activity do you participate in: none ana m/congregation: Anabaptist seatbelt use: always do you feel safe [...] -???-???-???-???-???-??? - MH-No VB. Na usea problematic. Madalynfran sent. +CF carrier/FOB will be [...] reuglar ct (more content not included)... Normal [facility] - Chemistry and C hemistry - challengeOrdered By: Mimi Caldera on 12-23-2024 Glucose Ql (U) Negative [facility] - UrinalysisOrder ed By: Mimi Caldera on 12-23-2024 Protein Ql (U) Negative [facility] Office Visit Reporton 12-23-2024 [place] [facility] Office Visit Report [facility] [address], [address] [place] [address] OFFICE VISIT Date of Service: 12/23/24 MR#: [id number] Acct: [id number] Name: AIMEE REDDY Rep #: [id number] : 2000 Provider: Dr. Mimi Garcia DO Age/Sex: 24/F Location: [facility] [place] Status: Signed Intake Vital Signs 11/11/24 09:33 12/15/24 09:36 12/23/24 15:26 Height 5 ft 4 in 5 ft 4 in 5 ft 4 in Weight: 149 lb 6 oz BMI 25.6 BP 118/82 H Intake Visit Reasons: 38 wk ob Academic Interventionist Required: No Is patient in pain?: No [...] current occupational status: employed current occupation: [employer] pets and animals: Yes pets and animals: [...] activity do you participate in: none ana m/congregation: Anabaptist seatbelt use: always do you feel safe [...] no r (more content not included)... Normal [facility] Rule out Beta Strep (Grp. B) on 12-18-2024 TREVON Group B Beta Streptococcus is not isolated. Normal [facility] Comment on above: Performed By: #### M 095.1960 ####[facility] [address] [place], [address] [facility] Office Visit Reporton 12-15-2024 [place] [facility] Office Visit Report [facility] [address], [address] [place] [address] OFFICE VISIT Date of Service: 12/15/24 MR#: [id number] Acct: [id number] Name: AIMEE REDDY Rep #: [id number] : 2000 Provider: Dr. Leonor ha MD Age/Sex: 24/F Location: [facility] [place] Status: Signed Intake Vital Signs 07/01/24 09:26 12/09/24 09:30 12/15/24 09:36 Height 5 ft 4 in 5 ft 4 in 5 ft 4 in Weight: 152 lb BMI 26.1 BP 125/82 H Intake Visit Reasons: 37wk ob Academic Interventionist Required: No Is patient in pain?: No [...] current occupational status: employed current occupation: [employer] pets and animals: Yes pets and animals: [...] activity do you participate in: none ana m/congregation: Anabaptist seatbelt use: always do you feel safe [...] reuglar ctx (more content not included)... Normal [facility] Screening beta-hemolytic Str eptococcus cultureOrdered By: Leonor Phillips on 12-15-2024 Beta-hemolytic Streptococcus culture Group B Beta Streptococcus is not isolated. [facility] OB Limited With Biometricson 12-11-2024 OB Limited With Biometrics [facility] Services [address] [place], [place] [id number] OB Limited With Biometrics MR#: [id number] Acct: [id number] Name: AIMEE REDDY Rep #: [id number] : 2000 F 24 From: Lobo tilley MD PCP: Care Physician,No Primary Status: REG CLI Study: OB Limited With Biometrics Date of Exam: 12/11 Exam# [id number] Ordering Dr: Leonor Phillips PROCEDURE: OB LIMITED [...] with the normal expected range. Reading Location: [id number] CC: Dr. Leonor Phillips MD; No Primary Care Physician Sales Ledger Administrator: Signed Normal [facility] - Chemistry and C hemistry - challengeOrdered By: Leonor Phillips on 12-09-2024 Glucose Ql (U) Negative [facility] - UrinalysisOrder ed By: Leonor Phillips on 12-09-2024 Protein Ql (U) Negative [facility] [place] [facility] Office Visit Reporton 12-09-2024 [place] [facility] Office Visit Report [facility] [address], [address] [place] [address] OFFICE VISIT Date of Service: 12/09/24 MR#: [id number] Acct: [id number] Name: AIMEE REDDY Rep #: [id number] : 2000 Provider: Dr. Leonor ha MD Age/Sex: 24/F Location: [facility] [place] Status: Signed Intake Vital Signs 07/01/24 09:26 11/25/24 09:57 12/09/24 09:26 12/09/24 09:30 Height 5 ft 4 in 5 ft 4 in 5 ft 4 in 5 ft 4 in Weight: 148 lb 2 oz BMI 25.4 BP 127/76 H Intake Visit Reasons: 36wk ob Academic Interventionist Required: No Is patient in pain?: No [...] family current occupational status: employed current occupation: [employer] pets and animals: Yes pets and animals: [...] activity do you participate in: none ana m/congregation: Anabaptist seatbelt use: always do you feel safe [...] no vb (more content not included)... Normal [facility] Absolute lymphocyte countOrd ered By: Ramya Voss on 11-25-2024 Lymphocytes Auto (Unsp spec) [#/Vol] 3.10 10*3/uL 0.83-4.51 [facility] Absolute neutrophil countOrd ered By: Ramya Voss on 11-25-2024 Neutrophils (Bld) [#/Vol] 10.6 10*3/uL High 2.0-7.7 [facility] Automated lymphocyte count a s percentage of total leukocytesOrdered By: Ramya Voss on 11-25-2024 Lymphocytes/100 WBC Auto (Unsp spec) 19.4 % 19-41 [facility] Basophil percentageOrdered B y: Ramya Voss on 11-25-2024 Basophils/100 WBC (Bld) 0.6 % 0-1 [facility] CBC W/Diff, Automatedon Absolute Lymph 3.10 X10 3/uL Normal 0.83-4.51 [facility] Comment on above: Performed By: #### L 100.0100 ####[facility] [address] [place], [address] Absolute Neut 10.6 X10 3/uL High 2.0-7.7 [facility] Comment on above: Performed By: #### L 100.0100 ####[facility] [address] [place], [address] Basophils/100 WBC (Bld) 0.6 % Normal 0-1 [facility] Comment on above: Performed By: #### L 100.0100 ####[facility] [address] [place], [address] Eosinophils/100 WBC (Bld) 3.1 % Normal 0-5 [facility] Comment on above: Performed By: #### L 100.0100 ####[facility] [address] [place], [address] Erythrocyte distribution width (RBC) [Ratio] 13.6 % Normal 11.6-14.6 [facility] Comment on above: Performed By: #### L 100.0100 ####[facility] [address] [place], [address] Hematocrit (Bld) [Volume fraction] 31.9 % Low 37-47 [facility] Comment on above: Performed By: #### L 100.0100 ####[facility] [address] [place], [address] Hemoglobin (Bld) [Mass/Vol] 10.6 g/dL Low 12.0-15.0 [facility] Comment on above: Performed By: #### L 100.0100 ####[facility] [address] [place], [address] IG% 1.700 High 0.0-0.9 [facility] Comment on above: Result Comment: IG% - Immature Granulocytes (promyelocytes, myelocytes and metamyelocytes) > 1% indicates that a LEFT SHIFT is Present. Performed By: #### L 100.0100 ####[facility] [address] [place], [address] Lymphocytes/100 WBC (Bld) 19.4 % Normal 19-41 [facility] Comment on above: Performed By: #### L 100.0100 ####[facility] [address] [place], [address] MCH (RBC) [Entitic mass] 29.6 pg Normal 27.0-32.0 [facility] Comment on above: Performed By: #### L 100.0100 ####[facility] [address] [place], [address] MCHC (RBC) [Mass/Vol] 33.2 g/dL Normal 32-36 [facility] Comment on above: Performed By: #### L 100.0100 ####[facility] [address] [place], [address] MCV (RBC) [Entitic vol] 89.1 fL Normal 81-99 [facility] Comment on above: Performed By: #### L 100.0100 ####[facility] [address] [place], [address] Monocytes/100 WBC (Bld) 9.3 % Normal 0-10 [facility] Comment on above: Performed By: #### L 100.0100 ####[facility] [address] [place], [address] Neutrophils/100 WBC (Bld) 65.9 % Normal 47-70 [facility] Comment on above: Performed By: #### L 100.0100 ####[facility] [address] [place], [address] Nucleated RBC (Bld) [#/Vol] 0 10*3/uL Normal 0-5 [facility] Comment on above: Performed By: #### L 100.0100 ####[facility] [address] [place], [address] Platelet mean volume (Bld) [Entitic vol] 12.6 fL High 6.2-12.0 [facility] Comment on above: Performed By: #### L 100.0100 ####[facility] [address] [place], [address] Platelets (Bld) [#/Vol] 338 10*3/uL Normal 150-450 [facility] Comment on above: Performed By: #### L 100.0100 ####[facility] [address] [place], [address] RBC (Bld) [#/Vol] 3.58 10*6/uL Low 4.2-5.4 [facility] Comment on above: Performed By: #### L 100.0100 ####[facility] [address] [place], [address] RDW SD 44.0 fl High 35.1-43.9 [facility] Comment on above: Performed By: #### L 100.0100 ####[facility] [address] [place], [address] WBC (Bld) [#/Vol] 16.0 10*3/uL High 4.4-11.0 [facility] Comment on above: Performed By: #### L 100.0100 ####[facility] [address] [place], [address] Eosinophil percentageOrdered By: Ramya Voss on 11-25-2024 Eosinophils/100 WBC (Bld) 3.1 % 0-5 [facility] Erythrocyte distribution wid th ratioOrdered By: Ramya Voss on 11-25-2024 Erythrocyte distribution width (RBC) [Ratio] 13.6 % 11.6-14.6 [facility] Erythrocyte distribution wid th standard deviationOrdered By: Ramya Voss on 11-25-2024 Erythrocyte distribution width (RBC) [Ratio] 44.0 fl High 35.1-43.9 [facility] Hematocrit Auto (Bld) [Volum e fraction]Ordered By: Ramya Voss on 11-25-2024 Hematocrit (Bld) [Volume fraction] 31.9 % Low 37-47 [facility] Hemoglobin measurementOrdere d By: Ramya Voss on 11-25-2024 Hemoglobin (Bld) [Mass/Vol] 10.6 g/dL Low 12.0-15.0 [facility] Immature granulocytes/100 WB C Auto (Bld)Ordered By: Ramya Voss on 11-25-2024 Immature granulocytes/100 WBC (Bld) 1.700 % High 0.0-0.9 [facility] Comment on above: IG% - Immature Granu locytes (promyelocytes, myelocytes and metamyelocytes) > 1% indicates that a LEFT SHIFT is Present. Laboratory - Chemistry and C hemistry - challengeOrdered By: Ramya Voss on 11-25-2024 Glucose Ql (U) Negative [facility] - UrinalysisOrder ed By: Ramya Voss on 11-25-2024 Protein Ql (U) Negative [facility] MCV (mean corpuscular volume ) determinationOrdered By: Ramya Voss on 11-25-2024 MCV (RBC) [Entitic vol] 89.1 fL 81-99 [facility] Mean corpuscular hemoglobin (MCH) determinationOrdered By: Ramya Voss on 11-25-2024 MCH (RBC) [Entitic mass] 29.6 pg 27.0-32.0 [facility] Mean corpuscular hemoglobin concentration (MCHC) determinationOrdered By: Ramya Voss on 11-25-2024 MCHC (RBC) [Mass/Vol] 33.2 g/dL 32-36 [facility] Mean platelet volume determi nationOrdered By: Ramya Voss on 11-25-2024 Platelet mean volume (Bld) [Entitic vol] 12.6 fL High 6.2-12.0 [facility] Monocyte percentageOrdered B y: Ramya Voss on 11-25-2024 Monocytes/100 WBC (Bld) 9.3 % 0-10 [facility] Neutrophil percentageOrdered By: Ramya Voss on 11-25-2024 Neutrophils/100 WBC (Bld) 65.9 % 47-70 [facility] Nucleated red blood cell per centageOrdered By: Ramya Voss on 11-25-2024 Nucleated RBC/100 WBC (Bld) [Ratio] 0 % 0-5 [facility] Office Visit Reporton 11-25-2024 [facility] Office Visit Report [facility] [address], [address] [place] [address] OFFICE VISIT Date of Service: 11/25/24 MR#: [id number] Acct: [id number] Name: AIMEE REDDY Rep #: [id number] : 2000 Provider: ANDREW early Age/Sex: 24/F Location: [facility] [place] Status: Signed Intake Vital Signs 07/01/24 09:26 11/11/24 09:33 11/25/24 09:57 Height 5 ft 4 in 5 ft 4 in 5 ft 4 in Weight: 144 lb 146 lb 2 oz BMI 24.7 25.0 BP 117/76 112/82 H Intake Visit Reasons: 34wk ob Chief Complaint: 34 Week OB Academic Interventionist Required: No Is patient in pain?: No [...] current occupational status: employed current occupation: [employer] pets and animals: Yes pets and animals: [...] activity do you participate in: none ana m/congregation: Anabaptist seatbelt use: always do you feel safe [...] Delivery Date Method Current WG Current Estimate 07/17/25 Ultrasound #1 33w 6d Other Estimates 12/29/24 [...] -???-???-???-???-???-??? -???- (more content not included)... Normal [facility] Platelet countOrdered By: Dave Voss on 11-25-2024 Platelets (Bld) [#/Vol] 338 10*3/uL 150-450 [facility] RBC Auto (Bld) [#/Vol]Ordere d By: Ramya Voss on 11-25-2024 RBC (Bld) [#/Vol] 3.58 10*6/uL Low 4.2-5.4 [facility] White blood cell (WBC) count Ordered By: Ramya Voss on 11-25-2024 WBC (Bld) [#/Vol] 16.0 10*3/uL High 4.4-11.0 [facility] Laboratory - Chemistry and C hemistry - challengeOrdered By: Mimi Caldera on 11-11-2024 Glucose Ql (U) Negative [facility] - UrinalysisOrder ed By: Mimi Caldera on 11-11-2024 Protein Ql (U) Negative [facility] Office Visit Reporton 11-11-2024 [facility] [place] [facility] Office Visit Report [facility], [address] [place] [address] OFFICE VISIT Date of Service: 11/11/24 MR#: [id number] Acct: [id number] Name: AIMEE REDDY Rep #: [id number] : 2000 Provider: Dr. Mimi Garcia, Age/Sex: 24/F Location: [facility] [place] Status: Signed Intake Vital Signs 07/01/24 09:26 10/27/24 09:21 11/11/24 09:33 Height 5 ft 4 in 5 ft 4 in 5 ft 4 in Weight: 144 lb BMI 24.7 BP 117/76 Intake Visit Reasons: 32wk ob Chief Complaint: 32 Week OB Academic Interventionist Required: No Is patient in pain?: No [...] current occupational status: employed current occupation: [employer] pets and animals: Yes pets and animals: [...] activity do you participate in: none ana m/congregation: Anabaptist seatbelt use: always do you feel safe at home: Yes additional social history: [place]- Brenda- Cayden Coley [place] History 1 Elective [...] 137 l (more content not included)... Normal [facility] - Chemistry and C hemistry - challengeOrdered By: Yvrose Mcmillan on 10-27-2024 Glucose Ql (U) Negative [facility] - UrinalysisOrder ed By: Yvrose Mcmillan on 10-27-2024 Protein Ql (U) Negative [facility] Office Visit Reporton 10-27-2024 [facility] Office Visit Report [facility] [address], [address] [place] [address] OFFICE VISIT Date of Service: 10/27/24 MR#: [id number] Acct: [id number] Name: AIMEE REDDY Rep #: [id number] : 2000 Provider: JOEL Jacobs ams Age/Sex: 24/F Location: [facility] [place] Status: Signed Intake Vital Signs 07/01/24 09:26 10/15/24 09:57 10/27/24 09:21 Height 5 ft 4 in 5 ft 4 in 5 ft 4 in Weight: 141 lb 8 oz BMI 24.3 BP 119/73 Intake Visit Reasons: 30wk ob Chief Complaint: 30wk OB Academic Interventionist Required: No Is patient in pain?: No [...] family current occupational status: employed current occupation: [employer] pets and animals: Yes pets and animals: [...] activity do you participate in: none ana m/congregation: Anabaptist seatbelt use: always do you feel safe [...] Negative -???-???-???-???-?? (more content not included)... Normal [facility] Urine Cultureon 10-16-2024 URC Culture exhibits no growth. Normal [facility] Comment on above: Performed By: #### M 100.2200 ####[facility] [address] [place], [address] [employer] Office Visit Reporton 10-15-2024 [employer] Office Visit Report [facility] [address], [address] [place] [address] OFFICE VISIT Date of Service: 10/15/24 MR#: [id number] Acct: [id number] Name: AIMEE REDDY Rep #: [id number] : 2000 Provider: ANDREW early Age/Sex: 24/F Location: [facility] [place] Status: Signed Intake Vital Signs 10/13/24 13:59 10/15/24 09:55 10/15/24 09:57 Height 5 ft 4 in 5 ft 4 in 5 ft 4 in Weight: 138 lb 2 oz BMI 23.7 Intake Visit Reasons: Repeat urine culture Academic Interventionist Required: No Is patient in pain?: No [...] family current occupational status: employed current occupation: [employer] pets and animals: Yes pets and animals: [...] activity do you participate in: none ana m/congregation: Anabaptist seatbelt use: always do you feel safe [...] fm no (more content not included)... Normal [facility] Urine cultureOrdered By: Aneesh Voss on 10-15-2024 Bacteria identified Cx Nom (U) Culture exhibits no growth. [facility] Absolute lymphocyte countOrd ered By: Ramya Voss on 10-13-2024 Lymphocytes Auto (Unsp spec) [#/Vol] 3.25 10*3/uL 0.83-4.51 [facility] Absolute neutrophil countOrd ered By: Ramya Voss on 10-13-2024 Neutrophils (Bld) [#/Vol] 12.2 10*3/uL High 2.0-7.7 [facility] Acanthocyte detectionOrdered By: Ramya Voss on 10-13-2024 Acanthocytes RARE [facility] Atypical lymphocyte percenta geOrdered By: Ramya Voss on 10-13-2024 Atypical Lymphocytes 1+ % [facility] Automated lymphocyte count a s percentage of total leukocytesOrdered By: Ramya Voss on 10-13-2024 Lymphocytes/100 WBC Auto (Unsp spec) 18.0 % Low 19-41 [facility] Basophil percentageOrdered B y: Ramya Voss on 10-13-2024 Basophils/100 WBC (Bld) 0.8 % 0-1 [facility] CBC W/Diff, Automatedon - ACANTHOCYTE RARE Normal [facility] Comment on above: Performed By: #### L 501.0250, L509.8002, L3890.6006, L100.0100 ####[facility] [address] [place], [address] Anisocytosis Ql (Bld) 1+ Normal [facility] Comment on above: Performed By: #### L 501.0250, L509.8002, L3890.6006, L100.0100 ####[facility] [address] [place], [address] ATYPICAL LYMPH 1+ Normal [facility] Comment on above: Performed By: #### L 501.0250, L509.8002, L3890.6006, L100.0100 ####[facility] [address] [place], [address] Eosinophil percentageOrdered By: Ramya Voss on 10-13-2024 Eosinophils/100 WBC (Bld) 2.0 % 0-5 [facility] Erythrocyte distribution wid th (RBC) [Ratio]Ordered By: Ramya Voss on 10-13-2024 Erythrocyte distribution width (RBC) [Entitic vol] 43.0 fL 35.1-43.9 [facility] Erythrocyte distribution wid th ratioOrdered By: Ramya Voss on 10-13-2024 Erythrocyte distribution width (RBC) [Ratio] 13.2 % 11.6-14.6 [facility] Erythrocyte distribution wid th standard deviationOrdered By: Ramya Voss on 10-13-2024 Erythrocyte distribution width (RBC) [Ratio] 43.0 fl 35.1-43.9 [facility] Glucose Challenge Gest 1H 50 yemi 10-13-2024 GLU GEST 50g 1H 115 mg/dL Normal 70-140 [facility] Comment on above: Performed By: #### L 501.0250, L509.8002, L3890.6006, L100.0100 ####[facility] [address] [facility] [place], [address] Glucose measurement at 2 carson rs post-dose gestational glucose tolerance testOrdered By: Ramya Voss on 10-13-2024 Glucose [Mass/Vol] 115 mg/dL 70-140 [facility] HIVon 10-13-2024 HIV Non-Reactive Normal Nonreactive [facility] Comment on above: Result Comment: Non- Reactive Reactive Repeatedly reactive samples must be confirmed according to CDC recommended confirmatory algorithms. The subresults for either HIVAG or AHIV can be used as an aid in the selection of the confirmation algorithm for reactive samples. Send out specimens with Reactive results to [facility] for confirmation. Order the HIV antibody detection and differentiation: #[id number] Performed By: #### L 501.0250, L509.8002, L3890.6006, L100.0100 ####[facility] [address] [facility] [place], [address] Hematocrit Auto (Bld) [Volum e fraction]Ordered By: Ramya Voss on 10-13-2024 Hematocrit (Bld) [Volume fraction] 30.7 % Low 37-47 [facility] Hemoglobin measurementOrdere d By: Ramya Voss on 10-13-2024 Hemoglobin (Bld) [Mass/Vol] 10.3 g/dL Low 12.0-15.0 [facility] Immature granulocytes/100 WB C Auto (Bld)Ordered By: Ramya Voss on 10-13-2024 Immature granulocytes/100 WBC (Bld) 3.000 % High 0.0-0.9 [facility] Comment on above: IG% - Immature Granu locytes (promyelocytes, myelocytes and metamyelocytes) > 1% indicates that a LEFT SHIFT is Present. Laboratory - Chemistry and C hemistry - challengeOrdered By: Leonor Phillips on 10-13-2024 Glucose Ql (U) Negative [facility] Laboratory - Hematology and Cell countsOrdered By: Ramya Voss on 10-13-2024 Anisocytosis Ql (Bld) 1+ [facility] - UrinalysisOrder ed By: Leonor Phillips on 10-13-2024 Protein Ql (U) Negative [facility] Lymphocytes Auto (Unsp spec) [#/Vol]Ordered By: Ramya Voss on 10-13-2024 Lymphocytes (Bld) [#/Vol] 3.25 10*3/uL 0.83-4.51 [facility] Lymphocytes/100 WBC Auto (Un sp spec)Ordered By: Ramya Voss on 10-13-2024 Lymphocytes/100 WBC (Bld) 18.0 % Low 19-41 [facility] MCV (mean corpuscular volume ) determinationOrdered By: Ramya Voss on 10-13-2024 MCV (RBC) [Entitic vol] 89.2 fL 81-99 [facility] Mean corpuscular hemoglobin (MCH) determinationOrdered By: Ramya Voss on 10-13-2024 MCH (RBC) [Entitic mass] 29.9 pg 27.0-32.0 [facility] Mean corpuscular hemoglobin concentration (MCHC) determinationOrdered By: Ramya Voss on 10-13-2024 MCHC (RBC) [Mass/Vol] 33.6 g/dL 32-36 [facility] Mean platelet volume determi nationOrdered By: Ramya Voss on 10-13-2024 Platelet mean volume (Bld) [Entitic vol] 12.3 fL High 6.2-12.0 [facility] Monocyte percentageOrdered B y: Ramya Voss on 10-13-2024 Monocytes/100 WBC (Bld) 8.8 % 0-10 [facility] Neutrophil percentageOrdered By: Ramya Voss on 10-13-2024 Neutrophils/100 WBC (Bld) 67.4 % 47-70 [facility] No Panel InformationOrdered By: Ramya Voss on 10-13-2024 HIV (1&2) Antibody Non-Reactive Nonreactive [facility] Comment on above: Non-ReactiveReactive Repeatedly reactive samples must be confirmed according to CDC recommended confirmatory algorithms. The subresults for either HIVAG or AHIV can be used as an aid in the selection of the confirmation algorithm for reactive samples.Send out specimens with Reactive results to [facility] for confirmation.Order the HIV antibody detection and differentiation: #[id number] Nucleated red blood cell per centageOrdered By: Ramya Voss on 10-13-2024 Nucleated RBC/100 WBC (Bld) [Ratio] 0.1 % 0-5 [facility] [employer] Office Visit Reporton 10-13-2024 [employer] Gatherer Office Visit Report [facility] [address], [address] [place] [address] OFFICE VISIT Date of Service: 10/13/24 MR#: [id number] Acct: [id number] Name: AIMEE REDDY Rep #: [id number] : 2000 Provider: Dr. Leonor ha MD Age/Sex: 24/F Location: [facility] [place] Status: Signed Intake Vital Signs 07/01/24 09:26 09/22/24 17:21 10/13/24 13:58 10/13/24 13:59 Height 5 ft 4 in 5 ft 4 in 5 ft 4 in 5 ft 4 in Weight: 137 lb 8 oz BMI 23.6 BP 108/71 Intake Visit Reasons: 28wk ob/glucose Academic Interventionist Required: No Is patient in pain?: No [...] current occupational status: employed current occupation: [employer] pets and animals: Yes pets and animals: [...] activity do you participate in: none ana m/congregation: Anabaptist seatbelt use: always do you feel safe [...] -???-???-???-???-???-??? - Negative 135 -???-???-???-???-???-??? -???-???-???-???-???-??? - SM (more content not included)... Normal [facility] Platelet countOrdered By: Dave Voss on 10-13-2024 Platelets (Bld) [#/Vol] 351 10*3/uL 150-450 [facility] RBC Auto (Bld) [#/Vol]Ordere d By: Ramya Voss on 10-13-2024 RBC (Bld) [#/Vol] 3.44 10*6/uL Low 4.2-5.4 [facility] Syphilis Antibodieson 2024 Syphilis Abs Non-Reactive Normal Nonreactive [facility] Comment on above: Performed By: #### L 501.0250, L509.8002, L3890.6006, L100.0100 ####[facility] [address] [place], [place], [address] T. pallidum abOrdered By: Dave Voss on 10-13-2024 Syphilis Total Antibody Non-Reactive Nonreactive [facility] White blood cell (WBC) count Ordered By: Ramya Bipin on 10-13-2024 WBC (Bld) [#/Vol] 18.1 10*3/uL High 4.4-11.0 [facility] CBC W/Diff, Automatedon - PATH REV Reviewed Normal [facility] Comment on above: Result Comment: SEE REPORT IN PATIENT'S EMR AMENDED REPORT 10/12/24 1609 PATH REV previously reported as: October Performed By: #### L 100.0100 ####[facility] [address] [place], [place], [address] POC Infectious Mononucleosis AntibodyOrdered By: Elizabeth Burgess on 10-12-2024 Infectious [place] Negative Negative [facility] h [facility] POC STREP A- MOLECULARon POC STREP A SCREEN Negative Normal Negative [facility] POC Strep A - Molecularon Interpretation and review of laboratory results Normal [facility] S. pyogenes Ag Ql (Throat) Negative Negative [facility] ED Prov Noteon 10-08-2024 ED Prov Note ED PROVIDER NOTE [facility] EMERGENCY [facility] NAME: Aimee Reddy AGE: 24 y.o. : 2000 VISIT DATE: 10/08/2024 CSN: [id number] PCP: No, Physician Chief Complaint Patient presents [...] with biopsy; Surgeon: Sergio Gray MD; Location: [facility] [place] OR; Service: General Surgery EGD N/A 02/24/2019 Procedure: ESOPHAGOGASTRODUODENOSCO PY with biopsy; Surgeon: Sergio Gray MD; Location: [facility] [place]; Service: General Surgery SPLENECTOMY, TOTAL 2011 [...] Financial Resource Strain: Unknown (11/16/2021) Received from [facility] Overall Financial Resource Strain (CARDIA) Difficulty of Paying Living Expenses: Patient declined Food Insecurity: Unknown (11/16/2021) Received from [facility] Hunger Vital Sign Worried About Running Out of Food in the Last Year: Patient declined Ran Out of Food in the Last Year: Patient declined Transportation Needs: Unknown (11/16/2021) Received from [facility] PRAPARE - Transportation Lack of Transportation (Medical): Patient declined Lack of Transportation (Non-Medical): Patient declined Physical Activity: Unknown (11/16/2021) Received from [facility] Exercise Vital Sign Days of Exercise per Week: Patient declined Minutes of Exercise per Session: Patient declined Stress: Unknown (11/16/2021) Received fro (more content not included)... Normal [facility] POC STREP A - MOLECULAR RALS on 10-08-2024 POC STREP A SCREEN Negative Normal [facility] Cult, Bloodon 09-28-2024 Cult, Blood Specimen Description [...] called to and read back by:ACE ONTIVEROS [id number] PER DY/NM Report Status FINAL 09/28/2024 [facility] Comment on above: Performed By: #### B CUL2 #### [facility] [address] [id number] Block Placer: Victor Manuel Washington MD [facility] [address] [place] [address] Block Placer: MD Linden Stanton,Bloodon 09-28-2024 Cult,Blood Specimen Description .BLOOD Special Requests RIGHT AC Culture NO GROWTH 6 DAYS Report Status FINAL 09/28/2024 [facility] Comment on above: Performed By: #### B C #### [facility] [address] [place] [address] Block Placer: Ric Eldridge MD Cult,Urineon 09-24-2024 Cult,Urine Specimen [...] Tobramycin <=1 SUSCEPTIBLE Trimethoprim/Sulfa <=20 SUSCEPTIBLE Susceptible [facility] Comment on above: Performed By: #### U #### [facility] [address] [place], [place] [id number] Block Placer: Victor Manuel Washington MD [facility] [address] [place] [address] Block Placer: Ric Eldridge MD Absolute lymphocyte countOrd ered By: Mimi Caldera on 09-23-2024 Lymphocytes Auto (Unsp spec) [#/Vol] 2.23 10*3/uL 0.83-4.51 [facility] Comment on above: Previous reported re sult: 2.88 X10^3/uLEdited by: JOSEPH on 09/23/24:0811 AMENDED REPORT 09/23/24 0811 Absolute Lymph previously reported as: 2.88 X10^3/uL Absolute neutrophil countOrd ered By: Mimi Caldera on 09-23-2024 Neutrophils (Bld) [#/Vol] 14.3 10*3/uL High 2.0-7.7 [facility] Comment on above: Previous reported re sult: 13.2 X10^3/uLEdited by: JOSEPH on 09/23/24:0813 AMENDED REPORT 09/23/24 0813 Absolute Neut previously reported as: 13.2 H X10^3/uL Automated lymphocyte count a s percentage of total leukocytesOrdered By: Mimi Caldera on 09-23-2024 Lymphocytes/100 WBC Auto (Unsp spec) [facility] Comment on above: Previous reported re sult: 15.5 %Edited by: JOSEPH on 09/23/24:0809 Basophil percentageOrdered B y: Mimi Caldera on 09-23-2024 Basophils (%) (Auto) BILLET HEATER [facility] Comment on above: Previous reported re sult: 0.3 %Edited by: JOSEPH on 09/23/24:0809 Blood band neutrophil count as percentage of total leukocytesOrdered By: Mimi Caldera on 09-23-2024 Band form neutrophils/100 WBC (Bld) 3 % 0-5 [facility] Blood eosinophils/100 leukoc ytesOrdered By: Mimi Caldera on 09-23-2024 Eosinophils/100 WBC (Bld) 2 % 0-5 [facility] Blood lymphocytes/100 leukoc ytesOrdered By: Mimi Caldera on 09-23-2024 Lymphocytes/100 WBC (Bld) 12 % Low 19-41 [facility] Blood metamyelocytes/100 steph kocytesOrdered By: Mimi Caldera on 09-23-2024 Metamyelocytes/100 WBC (Bld) Not Reportable [facility] Blood monocytes/100 leukocyt esOrdered By: Mimi Caldera on 09-23-2024 Monocytes/100 WBC (Bld) 9 % 0-10 [facility] Blood polychromasia detectio n by light microscopyOrdered By: Mimi Caldera on 09-23-2024 Polychromasia LM Ql (Bld) 1+ [facility] Blood promyelocytes/100 leuk ocytesOrdered By: Mimi Caldera on 09-23-2024 Promyelocytes/100 WBC (Bld) Not Reportable [facility] Blood segmented neutrophils/ 100 leukocytesOrdered By: Mimi Caldera on 09-23-2024 Segmented neutrophils/100 WBC (Bld) 74 % High 47-70 [facility] Eosinophil percentageOrdered By: Mimi Caldera on 09-23-2024 Eosinophils (%) (Auto) BILLET HEATER [facility] Comment on above: Previous reported re sult: 1.5 %Edited by: JOSEPH on 09/23/24:0809 Erythrocyte distribution wid th (RBC) [Ratio]Ordered By: Mimi Caldera on 09-23-2024 Erythrocyte distribution width (RBC) [Entitic vol] 46.9 fL High 35.1-43.9 [facility] Erythrocyte distribution wid th ratioOrdered By: Mimi Caledra on 09-23-2024 Erythrocyte distribution width (RBC) [Ratio] 13.8 % 11.6-14.6 [facility] Erythrocyte distribution wid th standard deviationOrdered By: Mimi Caldera on 09-23-2024 Erythrocyte distribution width (RBC) [Ratio] 46.9 fl High 35.1-43.9 [facility] Hematocrit Auto (Bld) [Volum e fraction]Ordered By: Mimi Caldera on 09-23-2024 Hematocrit (Bld) [Volume fraction] 28.0 % Low 37-47 [facility] Hemoglobin measurementOrdere d By: Mimi Caldera on 09-23-2024 Hemoglobin (Bld) [Mass/Vol] 9.4 g/dL Low 12.0-15.0 [facility] Immature granulocytes/100 WB C Auto (Bld)Ordered By: Mimi Caldera on 09-23-2024 Immature Granulocyte % (Auto) BILLET HEATER [facility] Comment on above: Previous reported re sult: 1.000 %Edited by: JOSEPH on 09/23/24:0809IG% - Immature Granulocytes (promyelocytes, myelocytes and metamyelocytes) > 1% indicates that a LEFT SHIFT is Present. Immature granulocytes/100 WBC (Bld) BILLET HEATER [facility] Comment on above: Previous reported re sult: 1.000 %Edited by: JOSEPH on 09/23/24:0809IG% - Immature Granulocytes (promyelocytes, myelocytes and metamyelocytes) > 1% indicates that a LEFT SHIFT is Present. Laboratory - Hematology and Cell countsOrdered By: Mimi Caldera on 09-23-2024 Anisocytosis Ql (Bld) 1+ [facility] Lymphocytes Auto (Unsp spec) [#/Vol]Ordered By: Mimi Caldera on 09-23-2024 Lymphocytes (Bld) [#/Vol] 2.23 10*3/uL 0.83-4.51 [facility] Comment on above: Previous reported re sult: 2.88 X10^3/uLEdited by: JOSEPH on 09/23/24:0811 AMENDED REPORT 09/23/24 0811 Absolute Lymph previously reported as: 2.88 X10^3/uL Lymphocytes/100 WBC Auto (Un sp spec)Ordered By: Mimi Caldera on 09-23-2024 Lymphocytes (%) (Auto) BILLET HEATER [facility] Comment on above: Previous reported re sult: 15.5 %Edited by: JOSEPH on 09/23/24:0809 MCV (mean corpuscular volume ) determinationOrdered By: Mimi Caldera on 09-23-2024 MCV (RBC) [Entitic vol] 91.5 fL 81-99 [facility] Mean corpuscular hemoglobin (MCH) determinationOrdered By: Mimi Caldera on 09-23-2024 MCH (RBC) [Entitic mass] 30.7 pg 27.0-32.0 [facility] Mean corpuscular hemoglobin concentration (MCHC) determinationOrdered By: Mimi Caldera on 09-23-2024 MCHC (RBC) [Mass/Vol] 33.6 g/dL 32-36 [facility] Mean platelet volume determi nationOrdered By: Mimi Caldera on 09-23-2024 Platelet mean volume (Bld) [Entitic vol] 11.9 fL 6.2-12.0 [facility] Metamyelocytes/100 WBC (Bld) Ordered By: Mimi Caldera on 09-23-2024 Metamyelocytes % Not Reportable [facility] Monocyte percentageOrdered B y: Mimi Caldera on 09-23-2024 Monocytes (%) (Auto) BILLET HEATER [facility] Comment on above: Previous reported re sult: 10.7 %Edited by: JOSEPH on 09/23/24:0809 Neutrophil percentageOrdered By: Mimi Caldera on 09-23-2024 Neutrophils (%) (Auto) BILLET HEATER [facility] Comment on above: Previous reported re sult: 71.0 %Edited by: JOSEPH on 09/23/24:0809 Nucleated red blood cell per centageOrdered By: Mimi Caldera on 09-23-2024 Nucleated RBC/100 WBC (Bld) [Ratio] 0 % 0-5 [facility] OB Limited With Biometricson 09-23-2024 OB Limited With Biometrics [facility] Imaging Services [address] [place], [place] [id number] OB Limited With Biometrics MR#: [id number] Acct: [id number] Name: AIMEE REDDY Rep #: [id number] : 2000 F 24 From: Yogesh Cabrales MD PCP: Status: ADM IN Study: OB Limited With Biometrics Date of Exam: 09/23 Exam# [id number] Ordering Dr: Leonor Phillips EXAM: US Pelvis [...] single live intrauterine as above. Reading Location: [facility] CC: Dr. Leonor Phillips MD Sales Ledger Administrator: Signed Normal [facility] Pathologist review Zhang (Unsp spec) [Interp]Ordered By: Mimi Caldera on 09-23-2024 Differential Pathologist's Review October [facility] Differential Pathologist's Review Reviewed [facility] Comment on above: Previous reported re sult: Fanny delaney Edited by: DON on 09/27/24:1436 AMENDED REPORT 09/27/24 1436 PATH REV previously reported as: Fanny delaney Previous reported result: N/A Edited by: DON on 09/27/24:1504 AMENDED REPORT 09/27/24 1504 PATH REV previously reported as: N/A Previous reported result: Fanny rhett Edited by: ИРИНА on 10/12/24:1609SEE REPORT IN PATIENT'S EMR AMENDED REPORT 10/12/24 1609 PATH REV previously reported as: Fanny delaney Platelet countOrdered By: Olman Caldera on 09-23-2024 Platelets (Bld) [#/Vol] 336 10*3/uL 150-450 [facility] Platelet estimateOrdered By: Mimi Caldera on 09-23-2024 Platelets LM Ql (Bld) ADEQUATE ADEQ [facility] Platelets LM Ql (Bld)Ordered By: Mimi Caldera on 09-23-2024 Platelet Estimate ADEQUATE ADEQ [facility] Polychromasia LM Ql (Bld)Ord ered By: Mimi Caldera on 09-23-2024 Polychromasia 1+ [facility] Promyelocytes/100 WBC (Bld)O rdered By: Mimi Caldera on 09-23-2024 Promyelocytes % Not Reportable [facility] RBC Auto (Bld) [#/Vol]Ordere d By: Mimi Caldera on 09-23-2024 RBC (Bld) [#/Vol] 3.06 10*6/uL Low 4.2-5.4 [facility] Review by pathologistOrdered By: Mimi Caldera on 09-23-2024 Pathologist review Zhang (Unsp spec) [Interp] Reviewed [facility] Comment on above: Previous reported re sult: [...] Segmented neutrophils/100 WB C (Bld)Ordered By: Mimi Verenice on 09-23-2024 Neutrophils/100 WBC (Bld) 74 % High 47-70 [facility] White blood cell (WBC) count Ordered By: Mimi Verenice on 09-23-2024 WBC (Bld) [#/Vol] 18.6 10*3/uL High 4.4-11.0 [facility] BMPon 09-22-2024 Anion gap [Moles/Vol] 10 mmol/L [...] Center Est, Glom Filt Rate - PINF [facility] Comment on above: These results are not [...] Anion gap [Moles/Vol] 10 mmol/L Normal 9-17 [facility] Comment on above: Performed By: #### B MP, CDP, LIVP, LIP #### [facility] [address] [place] [address] Block Placer: Ric Eldridge MD Calcium [Mass/Vol] 6.8 mg/dL Low 8.6-10.4 [facility] Comment on above: Performed By: #### B MP, CDP, LIVP, LIP #### [facility] [address] [place], [place] [id number] Block Placer: Ric Eldridge MD Chloride [Moles/Vol] 104 mmol/L Normal 98-107 [facility] Comment on above: Performed By: #### B MP, CDP, LIVP, LIP #### [facility] [address] [place] [address] Block Placer: Ric Eldridge MD CO2 [Moles/Vol] 23 mmol/L Normal 20-31 [facility] Comment on above: Performed By: #### B MP, CDP, LIVP, LIP #### [facility] [address] [id number] Block Placer: Ric Eldridge MD Creatinine [Mass/Vol] 0.4 mg/dL Low 0.5-0.9 [facility] Comment on above: Performed By: #### B MP, CDP, LIVP, LIP #### [facility] [address] [id number] Block Placer: Ric Eldridge MD GFR/1.73 sq M.predicted among non-blacks MDRD (S/P/Bld) [Vol rate/Area] mL/min/{1.73_m2} Normal >60 [facility] Comment on above: Result Comment: These results [...] #### B MP, CDP, LIVP, LIP #### [facility] [address] [place], [place] [id number] Block Placer: Ric Eldridge MD Glucose [Mass/Vol] 73 mg/dL Normal 70-99 [facility] Comment on above: Performed By: #### B MP, CDP, LIVP, LIP #### [facility] [address] [place], [place] [id number] Block Placer: Ric Eldridge MD Potassium [Moles/Vol] 3.8 mmol/L Normal 3.7-5.3 [facility] Comment on above: Performed By: #### B MP, CDP, LIVP, LIP #### [facility] [address] [place], [place] [id number] Block Placer: Ric Eldridge MD Sodium [Moles/Vol] 137 mmol/L Normal 135-144 [facility] Comment on above: Performed By: #### B MP, CDP, LIVP, LIP #### [facility] [address] [place], [place] [id number] Block Placer: Ric Eldridge MD Urea nitrogen [Mass/Vol] 8 mg/dL Normal 6-20 [facility] Comment on above: Performed By: #### B MP, CDP, LIVP, LIP #### [facility] [address] [place], [place] [id number] Block Placer: Ric Eldridge MD CBC with Auto Differentialon 09-22-2024 Absolute Bands 1.04 [place] [facility] Bands 5 % 0 - 10 % [facility] Basophils (Bld) [#/Vol] [facility] Basophils/100 WBC (Bld) 0 - 2 % [facility] Eosinophils % 0 - 5 % [facility] Eosinophils (Bld) [#/Vol] [facility] Erythrocyte distribution width (RBC) [Ratio] 13.9 % 12.1 - 15.2 % [facility] Hematocrit (Bld) [Volume fraction] 33.5 % Low [...] WBC other (Bld) [#/Vol] 20.8 Critically high [facility] CBC with Diffon 09-22-2024 Abs. Bands 1.04 k/uL High 0.0-1.0 [facility] Comment on above: Performed By: #### B MP, CDP, LIVP, LIP #### [facility] [address] [place] [address] Block Placer: Ric Eldridge MD Abs. Basophil Normal 0.0-0.2 [facility] Comment on above: Performed By: #### B MP, CDP, LIVP, LIP #### [facility] [address] [place] [address] Block Placer: Ric Eldridge MD Abs. Eosinophil Normal 0.0-0.4 [facility] Comment on above: Performed By: #### B MP, CDP, LIVP, LIP #### [facility] [address] [place] [address] Block Placer: Ric Eldridge MD Abs.Imm.Granulocyte Normal 0.00-0.30 [facility] Comment on above: Performed By: #### B MP, CDP, LIVP, LIP #### [facility] [address] [place] [address] Block Placer: Ric Eldridge MD Abs.Neutrophil (Seg) 14.56 k/uL High 2.5-7.0 [facility] Comment on above: Performed By: #### B MP, CDP, LIVP, LIP #### [facility] [address] [place] [address] Block Placer: Ric Eldridge MD Bands 5 % Normal 0-10 [facility] Comment on above: Performed By: #### B MP, CDP, LIVP, LIP #### [facility] [address] [place] [address] Block Placer: Ric Eldridge MD Basophil Normal 0-2 [facility] Comment on above: Performed By: #### B MP, CDP, LIVP, LIP #### [facility] [address] [place] [address] Block Placer: Ric Eldridge MD Eosinophil Normal 0-5 [facility] Comment on above: Performed By: #### B MP, CDP, LIVP, LIP #### [facility] [address] [place] [address] Block Placer: Ric Eldridge MD Immature Granulocyte Normal 0 [facility] Comment on above: Performed By: #### B MP, CDP, LIVP, LIP #### [facility] [address] [place] [address] Block Placer: Ric Eldridge MD Lymphocytes (Bld) [#/Vol] 3.74 10*3/uL Normal 1.0-4.8 [facility] Comment on above: Performed By: #### B MP, CDP, LIVP, LIP #### [facility] [address] [place] [address] Block Placer: Ric Eldridge MD Lymphocytes/100 WBC (Bld) 18 % Normal 15-40 [facility] Comment on above: Performed By: #### B MP, CDP, LIVP, LIP #### [facility] [address] [place] [address] Block Placer: Ric Eldridge MD Monocytes (Bld) [#/Vol] 1.46 10*3/uL High 0.0-1.0 [facility] Comment on above: Performed By: #### B MP, CDP, LIVP, LIP #### [facility] [address] [place] [address] Block Placer: Ric Eldridge MD Monocytes/100 WBC (Bld) 7 % Normal 4-8 [facility] Comment on above: Performed By: #### B MP, CDP, LIVP, LIP #### [facility] [address] [place] [address] Block Placer: Ric Eldridge MD Morphology Zhang (Bld) [Interp] Manual Differential Performed Normal [facility] Comment on above: Performed By: #### B MP, CDP, LIVP, LIP #### [facility] [address] [place] [address] Block Placer: Ric Eldridge MD Neutrophil (Seg) 70 % Normal 47-75 [facility] Comment on above: Performed By: #### B MP, CDP, LIVP, LIP #### [facility] [address] [place], [place] [id number] Block Placer: Ric Eldridge MD Erythrocyte distribution width (RBC) [Ratio] 13.9 % Normal 12.1-15.2 [facility] Comment on above: Performed By: #### B MP, CDP, LIVP, LIP #### [facility] [address] [place] [address] Block Placer: Ric Eldridge MD Hematocrit (Bld) [Volume fraction] 33.5 % Low 36.0-46.0 [facility] Comment on above: Performed By: #### B MP, CDP, LIVP, LIP #### [facility] [address] [place] [address] Block Placer: Ric Eldridge MD Hemoglobin (Bld) [Mass/Vol] 11.3 g/dL Low 12.0-16.0 [facility] Comment on above: Performed By: #### B MP, CDP, LIVP, LIP #### [facility] [address] [place] [address] Block Placer: Ric Eldridge MD MCH (RBC) [Entitic mass] 31.0 pg Normal 26.0-34.0 [facility] Comment on above: Performed By: #### B MP, CDP, LIVP, LIP #### [facility] [address] [place] [address] Block Placer: Ric Eldridge MD MCHC (RBC) [Mass/Vol] 33.7 g/dL Normal 31.0-37.0 [facility] Comment on above: Performed By: #### B MP, CDP, LIVP, LIP #### [facility] [address] [place] [address] Block Placer: Ric Eldridge MD MCV (RBC) [Entitic vol] 91.8 fL Normal 80.0-100.0 [facility] Comment on above: Performed By: #### B MP, CDP, LIVP, LIP #### [facility] [address] [place] [address] (275) Block Placer: Ric Eldridge MD Platelet mean volume (Bld) [Entitic vol] 11.0 fL Normal 6.0-12.0 [facility] Comment on above: Performed By: #### B MP, CDP, LIVP, LIP #### [facility] [address] [place] [address] (336) Block Placer: Ric Eldridge MD Platelets (Bld) [#/Vol] 335 10*3/uL Normal 140-450 [facility] Comment on above: Performed By: #### B MP, CDP, LIVP, LIP #### [facility] [address] [place] [address] Block Placer: Ric Eldridge MD RBC (Bld) [#/Vol] 3.65 10*6/uL Low 4.00-5.20 [facility] Comment on above: Performed By: #### B MP, CDP, LIVP, LIP #### [facility] [address] [place], [place] [id number] Block Placer: Ric Eldridge MD WBC (Bld) [#/Vol] 20.8 10*3/uL Critically high 3.5-11.0 [facility] Comment on above: Performed By: #### B MP, CDP, LIVP, LIP #### [facility] [address] [place] [address] Block Placer: Ric Eldridge MD H AND P Exam - OB/GYNon 04-0 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 [facility] [address] [place] [address] 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 09/22/24 1735 MR#: [id number] Acct: [id number] Name: AIMEE REDDY Rep #: [id number] : 2000 24 From: Mimi Thomas DO PCP: Status:ADM ASMITA Location: [place] [address] HPI - General General Date of Admission: 09/22/24 HPI Narrative AIMEE REDDY, is a 24 y/o @ 24 weeks 5 days who presents to [facility] from [facility] with the diagnosis of acute pyelonephritis in [...] family current occupational status: employed current occupation: [employer] pets and animals: Yes pets and animals: [...] activity do you participate in: none ana m/congregation: Anabaptist seatbelt use: always do you feel safe [...] 09/22/24 -??? (more content not included)... Normal [facility] Hepatic Function Panelon Albumin [Mass/Vol] 3.7 g/dL 3.5 - 5.2 g/dL [employer] Albumin/Globulin [Mass ratio] 1 {ratio} 1.0 - 2.5 [facility] ALP [Catalytic activity/Vol] 86 U/L 35 - 104 U/L 4th aspect [facility] ALT [Catalytic activity/Vol] 18 U/L 5 - 33 U/L 4th aspect [facility] AST [Catalytic activity/Vol] 19 U/L NINF - 32 U/L 4th aspect [facility] Bilirubin [Mass/Vol] mg/dL Low 0.3 - 1 .2 mg/dL [employer] Bilirubin.direct [Mass/Vol] mg/dL NINF - 0.3 mg/dL 4th aspect [facility] Bilirubin.indirect [Mass/Vol] Can not be calculated 0.0 - 1.0 mg/dL [employer] Globulin (S) [Mass/Vol] 3.6 g/dL 1.5 - 3.8 g/dL 4th aspect [facility] Interpretation and review of laboratory results Abnormal [employer] Protein [Mass/Vol] 7.3 g/dL 6.4 - 8.3 g/dL [facility] - Chemistry and C hemistry - challengeOrdered By: Ramya Voss on 09-22-2024 Glucose Ql (U) Negative [facility] Laboratory - UrinalysisOrder ed By: Ramya Voss on 09-22-2024 Protein Ql (U) Negative [facility] Lipaseon 09-22-2024 Lipase [Catalytic activity/Vol] 10 U/L Low 13 - 60 U/L [facility] Lipase [Catalytic activity/Vol] 10 U/L Low 13-60 [facility] Comment on above: Performed By: #### B MP, CDP, LIVP, LIP #### [facility] [address] [place] [address] Block Placer: Ric Eldridge MD Liver Profileon 09-22-2024 ALT [Catalytic activity/Vol] 18 U/L Normal 5-33 [facility] Comment on above: Performed By: #### B MP, CDP, LIVP, LIP #### [facility] [address] [place] [address] Block Placer: Ric Eldridge MD Albumin [Mass/Vol] 3.7 g/dL Normal 3.5-5.2 [facility] Comment on above: Performed By: #### B MP, CDP, LIVP, LIP #### [facility] [address] [place] [address] Block Placer: Ric Eldridge MD Albumin/Glob Ratio 1.0 Normal 1.0-2.5 [facility] Comment on above: Performed By: #### B MP, CDP, LIVP, LIP #### [facility] [address] [place] [address] Block Placer: Ric Eldridge MD Alkaline Phos 86 U/L Normal 35-104 [facility] Comment on above: Performed By: #### B MP, CDP, LIVP, LIP #### [facility] [address] [place], [place] [id number] Block Placer: Ric Eldridge MD AST [Catalytic activity/Vol] 19 U/L Normal <32 [facility] Comment on above: Performed By: #### B MP, CDP, LIVP, LIP #### [facility] [address] [place], [place] [id number] Block Placer: Ric Eldridge MD Bilirubin [Mass/Vol] mg/dL Low 0.3-1.2 [facility] Comment on above: Performed By: #### B MP, CDP, LIVP, LIP #### [facility] [address] [place], [place] [id number] Block Placer: Ric Eldridge MD Bilirubin, Indirect Can not be calculated Normal 0.0-1 .0 [facility] Comment on above: Performed By: #### B MP, CDP, LIVP, LIP #### [facility] [address] [place], [place] [id number] Block Placer: Ric Eldridge MD Bilirubin.indirect [Mass/Vol] mg/dL Normal <0.3 [facility] Comment on above: Performed By: #### B MP, CDP, LIVP, LIP #### [facility] [address] [place], [place] [id number] Block Placer: Ric Eldridge MD Globulin (S) [Mass/Vol] 3.6 g/dL Normal 1.5-3.8 [facility] Comment on above: Performed By: #### B MP, CDP, LIVP, LIP #### [facility] [address] [place], [place] [id number] Block Placer: Ric Eldridge MD Protein [Mass/Vol] 7.3 g/dL Normal 6.4-8.3 [facility] Comment on above: Performed By: #### B MP, CDP, LIVP, LIP #### [facility] [address] [place] [address] Block Placer: Ric Eldridge MD Microscopic Urinalysison - [facility] Bacteria LM Ql (Urine sed) 4+ Abnormal None [facility] Epithelial cells LM.HPF (Urine sed) [#/Area] 2 TO 5 /HPF [facility] Interpretation and review of laboratory results Abnormal [facility] RBC LM.HPF (Urine sed) [#/Area] 0 TO 2 [facility] WBC LM.HPF (Urine sed) [#/Area] 2 TO 5 0 /HPF [facility] No Panel Informationon 09-22 Interpretation and review of laboratory results Abnormal [facility] [employer] [facility] Office Visit Reporton 09-22-2024 [employer] [facility] Office Visit Report [facility] [address], [address] [place] [address] OFFICE VISIT Date of Service: 09/22/24 MR#: [id number] Acct: [id number] Name: AIMEE REDDY Rep #: [id number] : 2000 Provider: ANDREW early Age/Sex: 24/F Location: [facility] Status: Signed Intake Vital Signs 07/01/24 09:26 08/26/24 09:30 09/22/24 08:36 Height 5 ft 4 in 5 ft 4 in 5 ft 4 in Weight: 137 lb 4 oz BMI 23.6 BP 98/60 Intake Visit Reasons: 25wk ob Chief Complaint: 25 Week OB Academic Interventionist Required: No Is patient in pain?: No [...] family current occupational status: employed current occupation: [employer] pets and animals: Yes pets and animals: [...] activity do you participate in: none ana m/congregation: Anabaptist seatbelt use: always do you feel safe at home: Yes additional social history: BF- Brenda- Cayden Coley History 1 Elective abortions Hx [...] -???-???-???-???-???-??? -???-???-??? (more content not included)... Normal [facility] US GALLBLADDER RUQon 025 US GALLBLADDER RUQ EXAM: US GALLBLADDER [...] Trejo Jr., MD 09/22/24 Final result Normal [facility] US Gallbladderon 09-22-2024 Prominence of the right renal collecting system. In order to see if this is more related to than it is obstruction, I would recommend a dedicated bilateral renal and bladder ultrasound, including resistive indices and evaluation of the ureteral jets. The findings were discussed with Dr. Delgadillo in the ED. [facility] EXAM: US GALLBLADDER RUQ. HISTORY: RUQ [...] pancreas are normal. Aorta nonaneurysmal. IVC normal. [facility] Richard Trejo Jr., MD - 09/22/2024 [...] [facility] US GallbladderOrdered By: Vinay Trejo on 09-22-2024 [facility] Work Phone: US RENAL COMPLETEon 09-23-19 US RENAL COMPLETE US RENAL COMPLETE, 09/22/2024 2:16 PM EDT, W JAMARI DELGADILLO INDICATION: Abnormal finding on US [...] hydronephrosis, right greater than left. Interpreted by: Caremlo Kwan MD Signed by: Carmelo Kwan MD 09/22/24 Final result Normal [facility] Urinalysison 09-22-2024 Bilirubin Ql (U) Negative NEGATIVE [facility] [employer] [facility] Clarity (U) Hazy Abnormal Clear [facility] Color (U) Yellow Yellow [facility] Comment [facility] Glucose Test strip (U) [Mass/Vol] Negative NEGATIVE mg/dL [facility] Hemoglobin [...] (U) Normal 0.0 - 1. 0 EU/dL [facility] Urinalysis, Routineon 2024 Bilirubin, SemiQt,Ur Negative Normal NEG [facility] Comment on above: Performed By: #### U HUMERAO, UA #### [facility] [address] [place] [address] Block Placer: Ric Eldridge MD Blood, Urine TRACE Abnormal NEG [facility] Comment on above: Performed By: #### U HUMERAO, UA #### [facility] [address] [place] [address] Block Placer: Ric Eldridge MD Clarity (U) Hazy Abnormal CLEAR [facility] Comment on above: Performed By: #### U MICAO, UA #### [facility] [address] [place], [place] [id number] Block Placer: Ric Eldridge MD Color (U) Yellow Normal YEL [facility] Comment on above: Performed By: #### U HUMERAO, UA #### [facility] [address] [place] [address] Block Placer: Ric Eldridge MD Comment Normal [facility] Comment on above: Performed By: #### U MICAO, UA #### [facility] [address] [place] [address] Block Placer: Ric Eldridge MD Glucose Ql (U) Negative Normal NEG [facility] Comment on above: Performed By: #### U MICAO, UA #### [facility] [address] [place] [address] Block Placer: Ric Eldridge MD Ketones Ql (U) Negative Normal NEG [facility] Comment on above: Performed By: #### U MICAO, UA #### [facility] [address] [place] [address] Block Placer: Ric Eldridge MD Leukocyte esterase Test strip Ql (U) Negative Normal NEG [facility] Comment on above: Performed By: #### U MICAO, UA #### [facility] [address] [place] [address] Block Placer: Ric Eldridge MD Nitrite,Ur Positive Abnormal NEG [facility] Comment on above: Performed By: #### U MICAO, UA #### [facility] [address] [place] [address] Block Placer: Ric Eldridge MD PH,Ur 7.0 Normal 5.0-8.0 [facility] Comment on above: Performed By: #### U MICAO, UA #### [facility] [address] [place] [address] Block Placer: Ric Eldridge MD Protein Ql (U) TRACE Abnormal NEG [facility] Comment on above: Performed By: #### U MICAO, UA #### [facility] [address] [place] [address] Block Placer: Ric Eldridge MD Spec. [place],Ur 1.010 Normal 1.005-1.030 [facility] Comment on above: Performed By: #### U MICAO, UA #### [facility] [address] [place], [place] [id number] Block Placer: Ric Eldridge MD Urobilinogen,Ur Normal Normal 0.0-1.0 [facility] Comment on above: Performed By: #### U MICAO, UA #### [facility] [address] [place], [place] [id number] Block Placer: Ric Eldridge MD Urinalysis,Microon 5 ----- Normal [facility] Comment on above: Performed By: #### U MICAO, UA #### [facility] [address] [place], [place] [id number] Block Placer: Ric Eldridge MD Bacteria 4+ Abnormal NONE [facility] Comment on above: Performed By: #### U MICAO, UA #### [facility] [address] [place], [place] [id number] Block Placer: Ric Eldridge MD Epithelial cells LM Ql (Urine sed) 2 TO 5 Normal [facility] Comment on above: Performed By: #### U MICAO, UA #### [facility] [address] [place], [place] [id number] Block Placer: Ric Eldridge MD Urine RBC's 0 TO 2 Normal 0-2 [facility] Comment on above: Performed By: #### U MICAO, UA #### [facility] [address] [place], [place] [id number] Block Placer: Ric Eldridge MD Urine WBC's 2 TO 5 Normal 0 [facility] Comment on above: Performed By: #### U MICAO, UA #### [facility] [address] [place], [place] [id number] Block Placer: Ric Eldridge MD Laboratory - Chemistry and C hemistry - challengeOrdered By: Leonor Phillips on 08-26-2024 Glucose Ql (U) Negative [facility] - UrinalysisOrder ed By: Leonor Phillips on 08-26-2024 Protein Ql (U) Negative [facility] [employer] [facility] Office Visit Reporton 08-26-2024 [employer] [facility] Office Visit Report [facility] [address], [address] [place] [address] OFFICE VISIT Date of Service: 08/26/24 MR#: [id number] Acct: [id number] Name: AIMEE REDDY Rep #: [id number] : 2000 Provider: Dr. Leonor ha MD Age/Sex: 24/F Location: [facility] Status: Signed Intake Vital Signs 07/01/24 09:26 07/28/24 08:58 08/26/24 09:26 08/26/24 09:30 Height 5 ft 4 in 5 ft 4 in 5 ft 4 in 5 ft 4 in Weight: 129 lb BMI 22.1 BP 108/62 Intake Visit Reasons: 21wk ob Academic Interventionist Required: No Is patient in pain?: No [...] current occupational status: employed current occupation: [employer] pets and animals: Yes pets and animals: [...] activity do you participate in: none ana m/congregation: Anabaptist seatbelt use: always do you feel safe [...] -???-???-???-???-???-??? -???-???-???-???-???-??? - Effaced St Visit Note 12/06/24 -???-???-???-???-???-??? -???-???-???-???-???-??? - 8w 1d 125 lb [...] -???-???-???-???-???-??? - MH-No VB. Na usea problematic. Madalynfran sent. +CF carrier/FOB will be [...] Second Trimester (more content not included)... Normal [facility] CBC with Auto Differentialon 08-08-2024 Basophils (Bld) [#/Vol] 0.05 10*3/uL [employer] Basophils/100 WBC (Bld) 0 % 0 - 2 % 4th aspect [facility] Eosinophils (Bld) [#/Vol] 0.33 10*3/uL 4th aspect [employer] Eosinophils/100 WBC (Bld) 2 % 0 - 5 % 4th aspect [facility] [employer] [facility] Erythrocyte distribution width (RBC) [Ratio] 13.5 % 12.1 - 15.2 % 4th aspect [employer] Hematocrit (Bld) [Volume fraction] 34.2 % Low 36.0 - 46.0 % 4th aspect [employer] Hemoglobin (Bld) [Mass/Vol] 12.0 g/dL 12.0 - 16.0 g/dL [employer] Immature granulocytes (Bld) [#/Vol] 0.06 10*3/uL [facility] Immature granulocytes/100 WBC (Bld) 0 % 0 - 5 % [facility] Interpretation and review of laboratory results Abnormal [facility] Lymphocytes/100 WBC (Bld) 28 % 15 - [...] Center WBC other (Bld) [#/Vol] 14.4 High [facility] CBC with Diffon 08-08-2024 Abs. Basophil 0.05 k/uL Normal 0.00-0.20 [facility] Comment on above: Performed By: #### DERRICK WILDER #### [facility] [address] [place] [address] Block Placer: Ric Eldridge MD Abs.Imm.Granulocyte 0.06 k/uL Normal 0.00-0.30 [facility] Comment on above: Performed By: #### DERRICK WILDER #### [facility] [address] [place], [place] [id number] Block Placer: Ric Eldridge MD Abs.Neutrophil (Seg) 8.65 k/uL High 2.5-7.0 [facility] Comment on above: Performed By: #### U HUMERAO, UA #### [facility] [address] [place], [place] [id number] Block Placer: Ric Eldridge MD Basophils/100 WBC (Bld) 0 % Normal 0-2 [facility] Comment on above: Performed By: #### U HUMERAO, UA #### [facility] [address] [place], [place] [id number] Block Placer: Ric Eldridge MD Eosinophils (Bld) [#/Vol] 0.33 10*3/uL Normal 0.00-0.40 [facility] Comment on above: Performed By: #### U HUMERAO, UA #### [facility] [address] [place], [place] [id number] Block Placer: Ric Eldridge MD Eosinophils/100 WBC (Bld) 2 % Normal 0-5 [facility] Comment on above: Performed By: #### U HUMERAO, UA #### [facility] [address] [place], [place] [id number] Block Placer: Ric Eldridge MD Erythrocyte distribution width (RBC) [Ratio] 13.5 % Normal 12.1-15.2 [facility] Comment on above: Performed By: #### U HUMERAO, UA #### [facility] [address] [place], [place] [id number] Block Placer: Ric Eldridge MD Hematocrit (Bld) [Volume fraction] 34.2 % Low 36.0-46.0 [facility] Comment on above: Performed By: #### U MICAO, UA #### [facility] [address] [place], [place] [id number] Block Placer: Ric Eldridge MD Hemoglobin (Bld) [Mass/Vol] 12.0 g/dL Normal 12.0-16.0 [facility] Comment on above: Performed By: #### U SYDNEY UA #### [facility] [address] [place], [place] [id number] Block Placer: Ric Eldridge MD Immature granulocytes/100 WBC (Bld) 0 % Normal 0-5 [facility] Comment on above: Performed By: #### U SYDNEY UA #### [facility] [address] [place], [place] [id number] Block Placer: Ric Eldridge MD Lymphocytes (Bld) [#/Vol] 4.04 10*3/uL Normal 1.00-4.80 [facility] Comment on above: Performed By: #### Arcenio GRIMES UA #### [facility] [address] [place], [place] [id number] Block Placer: Ric Eldridge MD Lymphocytes/100 WBC (Bld) 28 % Normal 15-40 [facility] Comment on above: Performed By: #### U SYDNEY UA #### [facility] [address] [place], [place] [id number] Block Placer: Ric Eldridge MD MCH (RBC) [Entitic mass] 31.1 pg Normal 26.0-34.0 [facility] Comment on above: Performed By: #### U SYDNEY UA #### [facility] [address] [place], [place] [id number] Block Placer: Ric Eldridge MD MCHC (RBC) [Mass/Vol] 35.1 g/dL Normal 31.0-37.0 [facility] Comment on above: Performed By: #### U SYDNEY UA #### [facility] [address] [place], [place] [id number] Block Placer: Ric Eldridge MD MCV (RBC) [Entitic vol] 88.6 fL Normal 80.0-100.0 [facility] Comment on above: Performed By: #### Arcenio GRIMES UA #### [facility] [address] [place] [address] Block Placer: Ric Eldridge MD Monocytes (Bld) [#/Vol] 1.31 10*3/uL High 0.00-1.00 [facility] Comment on above: Performed By: #### Arcenio GRIMES UA #### [facility] [address] [place] [address] Block Placer: Ric Eldridge MD Monocytes/100 WBC (Bld) 9 % High 4-8 [facility] Comment on above: Performed By: #### Arcenio GRIMES UA #### [facility] [address] [place] [address] Block Placer: Ric Eldridge MD Neutrophil (Seg) 61 % Normal 47-75 [facility] Comment on above: Performed By: #### Arcenio GRIMES UA #### [facility] [address] [place], [place] [id number] Block Placer: Ric Eldridge MD Platelet mean volume (Bld) [Entitic vol] 10.9 fL Normal 6.0-12.0 [facility] Comment on above: Performed By: #### Arcenio GRIMES UA #### [facility] [address] [place], [place] [id number] Block Placer: Ric Eldridge MD Platelets (Bld) [#/Vol] 354 10*3/uL Normal 140-450 [facility] Comment on above: Performed By: #### U SYDNEY, UA #### [facility] [address] [place] [address] Block Placer: Ric Eldridge MD RBC (Bld) [#/Vol] 3.86 10*6/uL Low 4.00-5.20 [facility] Comment on above: Performed By: #### U SYDNEY, UA #### [facility] [address] [place], [place] [id number] Block Placer: Ric Eldridge MD WBC (Bld) [#/Vol] 14.4 10*3/uL High 3.5-11.0 [facility] Comment on above: Performed By: #### U SYDNEY, UA #### [facility] [address] [place] [address] Block Placer: Ric Eldridge MD [facility] Albumin [Mass/Vol] 4.1 g/dL 3.5 [...] Center Est, Glom Filt Rate - PINF [facility] Comment on above: These results are not [...] 2024 Albumin [Mass/Vol] 4.1 g/dL Normal 3.5-5.2 [facility] Comment on above: Performed By: #### Arcenio GRIMES UA #### [facility] [address] [place], [place] [id number] Block Placer: Ric Eldridge MD Albumin/Glob Ratio 1.3 Normal 1.0-2.5 [facility] Comment on above: Performed By: #### U SYDNEY UA #### [facility] [address] [place], [place] [id number] Block Placer: Ric Eldridge MD Alkaline Phos 67 U/L Normal 35-104 [facility] Comment on above: Performed By: #### U SYDNEY UA #### [facility] [address] [place], [place] [id number] Block Placer: Ric Eldridge MD ALT [Catalytic activity/Vol] 11 U/L Normal 5-33 [facility] Comment on above: Performed By: #### U SYDNEY UA #### [facility] [address] [place], [place] [id number] Block Placer: Ric Eldridge MD Anion gap [Moles/Vol] 11 mmol/L Normal 9-17 [facility] Comment on above: Performed By: #### U MICAO, UA #### [facility] [address] [place], [place] [id number] Block Placer: Ric Eldridge MD AST [Catalytic activity/Vol] 19 U/L Normal <32 [facility] Comment on above: Performed By: #### U MICAO, UA #### [facility] [address] [place] [address] Block Placer: Ric Eldridge MD Bilirubin [Mass/Vol] mg/dL Low 0.3-1.2 [facility] Comment on above: Performed By: #### U MICAO, UA #### [facility] [address] [place] [address] Block Placer: Ric Eldridge MD Calcium [Mass/Vol] 9.8 mg/dL Normal 8.6-10.4 [facility] Comment on above: Performed By: #### U MICAO, UA #### [facility] [address] [place], [place] [address] Block Placer: Ric Eldridge MD Chloride [Moles/Vol] 104 mmol/L Normal 98-107 [facility] Comment on above: Performed By: #### U MICAO, UA #### [facility] [address] [place], [place] [id number] Block Placer: Ric Eldridge MD CO2 [Moles/Vol] 22 mmol/L Normal 20-31 [facility] Comment on above: Performed By: #### U MICAO, UA #### [facility] [address] [place], [place] [address] Block Placer: Ric Eldridge MD Creatinine [Mass/Vol] 0.4 mg/dL Low 0.5-0.9 [facility] Comment on above: Performed By: #### U MICAO, UA #### [facility] [address] [place] [address] Block Placer: Ric Eldridge MD GFR/1.73 sq M.predicted among non-blacks MDRD (S/P/Bld) [Vol rate/Area] mL/min/{1.73_m2} Normal >60 [facility] Comment on above: Result Comment: These results [...] renal tubular secretion. Performed By: #### U HUMERAO, UA #### [facility] [address] [place] [address] Block Placer: Ric Eldridge MD Glucose [Mass/Vol] 81 mg/dL Normal 70-99 [facility] Comment on above: Performed By: #### U HUMERAO, UA #### [facility] [address] [place], [place] [id number] Block Placer: Ric Eldridge MD Potassium [Moles/Vol] 3.9 mmol/L Normal 3.7-5.3 [facility] Comment on above: Performed By: #### U HUMERAO, UA #### [facility] [address] [place] [address] Block Placer: Ric Eldridge MD Protein [Mass/Vol] 7.2 g/dL Normal 6.4-8.3 [facility] Comment on above: Performed By: #### U HUMERAO, UA #### [facility] [address] [place] [address] Block Placer: Ric Eldridge MD Sodium [Moles/Vol] 137 mmol/L Normal 135-144 [facility] Comment on above: Performed By: #### U MICAO, UA #### [facility] [address] [place] [address] Block Placer: Ric Eldridge MD Urea nitrogen [Mass/Vol] 11 mg/dL Normal 6-20 [facility] Comment on above: Performed By: #### U DERRICK GRIMES #### [facility] [address] [place] [address] Block Placer: Ric Eldridge MD Lipaseon 08-08-2024 Lipase [Catalytic activity/Vol] 29 U/L 13 - 60 U/L [facility] Lipase [Catalytic activity/Vol] 29 U/L Normal 13-60 [facility] Comment on above: Performed By: #### U SYDNEY UA #### [facility] [address] [place] [address] Block Placer: Ric Eldridge MD Microscopic Urinalysison - [facility] Epithelial cells LM.HPF (Urine sed) [#/Area] 2 TO 5 /HPF [facility] RBC LM.HPF (Urine sed) [#/Area] 0 TO 2 [facility] WBC LM.HPF (Urine sed) [#/Area] None Seen 0 /HPF [facility] No Panel Informationon 08-08 [facility] Urinalysison 08-08-2024 Bilirubin Ql (U) Negative NEGATIVE [facility] Clarity (U) Clear Clear [facility] [...] (U) Normal 0.0 - 1. 0 EU/dL [facility] Urinalysis, Routineon 2024 Bilirubin, SemiQt,Ur Negative Normal NEG [facility] Comment on above: Performed By: #### U MICAO, UA #### [facility] [address] [place] [address] Block Placer: Ric Eldridge MD Blood, Urine TRACE Abnormal NEG [facility] Comment on above: Performed By: #### U MICAO, UA #### [facility] [address] [place], [place] [address] Block Placer: Ric Eldridge MD Clarity (U) Clear Normal CLEAR [facility] Comment on above: Performed By: #### U MICAO, UA #### [facility] [address] [facility] [place] [id number] Block Placer: Ric Eldridge MD Color (U) Yellow Normal L [facility] Comment on above: Performed By: #### U MICAO, UA #### [facility] [address] [facility] [place] [id number] Block Placer: Ric Eldridge MD Comment Normal [facility] Comment on above: Performed By: #### U MICAO, UA #### [facility] [address] [facility] [place] [address] Block Placer: Ric Eldridge MD Glucose Ql (U) 250 mg/dL Abnormal NEG [facility] Comment on above: Performed By: #### U MICAO, UA #### [facility] [address] [facility] [place] 110[address]90 Block Placer: Ric Eldridge MD Ketones Ql (U) Negative Normal NEG [facility] Comment on above: Performed By: #### U MICAO, UA #### [facility] [address] [place] [address] Block Placer: Ric Eldridge MD Leukocyte esterase Test strip Ql (U) Negative Normal NEG [facility] Comment on above: Performed By: #### U MICAO, UA #### [facility] [address] [place] [address] Block Placer: Ric Eldridge MD Nitrite,Ur Negative Normal NEG [facility] Comment on above: Performed By: #### U MICAO, UA #### [facility] [address] [place] [address] Block Placer: Ric Eldridge MD PH,Ur 6.0 Normal 5.0-8.0 [facility] Comment on above: Performed By: #### U MICAO, UA #### [facility] [address] [place] [address] Block Placer: Ric Eldridge MD Protein Ql (U) TRACE Abnormal NEG [facility] Comment on above: Performed By: #### U MICAO, UA #### [facility] [address] [place] [address] Block Placer: Ric Eldridge MD Spec. [place],Ur 1.025 Normal 1.005-1.030 [facility] Comment on above: Performed By: #### U MICAO, UA #### [facility] [address] [place] [address] Block Placer: Ric Eldridge MD Urobilinogen,Ur Normal Normal 0.0-1.0 [facility] Comment on above: Performed By: #### U MICAO, UA #### [facility] [address] [place], [place] [address] Block Placer: Ric Eldridge MD Urinalysis,Microon 5 ----- Normal [facility] Comment on above: Performed By: #### U SYDNEY UA #### [facility] [address] [place] [address] Block Placer: Ric Eldridge MD Epithelial cells LM Ql (Urine sed) 2 TO 5 Normal [facility] Comment on above: Performed By: #### U SYDNEY, UA #### [facility] [address] [place] [address] Block Placer: Ric Eldridge MD Urine RBC's 0 TO 2 Normal 0-2 [facility] Comment on above: Performed By: #### U SYDNEY UA #### [facility] [address] [place] [address] Block Placer: Ric Eldridge MD Urine WBC's None Seen Normal 0 [facility] Comment on above: Performed By: #### U SYDNEY UA #### [facility] [address] [place] [address] Block Placer: Ric Eldridge MD Laboratory - Chemistry and C hemistry - challengeOrdered By: Mimi Caldera on 07-28-2024 Glucose Ql (U) Negative [facility] - UrinalysisOrder ed By: Mimi Caldera on 07-28-2024 Protein Ql (U) Negative [facility] [employer] [facility] Office Visit Reporton 07-28-2024 [employer] [facility] Office Visit Report [facility] [address], [address] [place] [address] OFFICE VISIT Date of Service: 07/28/24 MR#: [id number] Acct: [id number] Name: AIMEE REDDY Rep #: [id number] : 2000 Provider: Dr. Mimi Garcia DO Age/Sex: 24/F Location: [facility] Status: Signed Intake Vital Signs 07/01/24 09:26 07/28/24 08:56 07/28/24 08:58 Height 5 ft 4 in 5 ft 4 in 5 ft 4 in Weight: 127 lb BMI 21.8 BP 112/70 Intake Visit Reasons: 17wk OB Academic Interventionist Required: No Is patient in pain?: No [...] family current occupational status: employed current occupation: [employer] pets and animals: Yes pets and animals: [...] activity do you participate in: none ana m/congregation: Anabaptist seatbelt use: always do you feel safe [...] -???-???-???-???-???-??? - MH-No VB. Na usea problematic. Madalynfran sent. +CF carrier/FOB will be [...] (1) Cystic (more content not included)... Normal [facility] - Chemistry and C hemistry - challengeon 07-01-2024 Glucose Ql (U) Negative [facility] - Urinalysison Protein Ql (U) Negative [facility] [employer] Office Visit Reporton 07-01-2024 [employer] Office Visit Report [facility] [address], [address] [place] [address] OFFICE VISIT Date of Service: 07/01/24 MR#: [id number] Acct: [id number] Name: AIMEE REDDY Rep #: [id number] : 2000 Provider: ANDREW early Age/Sex: 24/F Location: [facility] Status: Signed Intake Vital Signs 05/29/24 11:19 07/01/24 09:26 Height 5 ft 4 in 5 ft 4 in Weight: 124 lb 6 oz BMI 21.3 BP 107/61 Intake Visit Reasons: 14wk OB Chief Complaint: 14 Week OB Academic Interventionist Required: No Is patient in pain?: No [...] current occupational status: employed current occupation: [employer] pets and animals: Yes pets and animals: [...] activity do you participate in: none ana m/congregation: Anabaptist seatbelt use: always do you feel safe [...] of normal first , second trimester Comment: [id number], TERESITA 12/29/24, PARISH Gutierrez (2) : Status: Acute Qualifiers: Weeks of gestation: 12 weeks Qualified Code(s): Z3A.12 - 12 weeks gestation of Comment: Elects NIPT with Gender, Carrier Neg. 13/14 Carrier for Cystic Fibrosis;FOB Karen Merino to be tested (3) Cystic fibrosis carrier: Status: Acute Comment: FOB to be tested (more content not included)... Normal [facility] Absolute neutrophil countOrd ered By: Kassi Ontiveros on 06-19-2024 Neutrophils (Bld) [#/Vol] 12.1 10*3/uL High 2.0-7.7 [facility] Basophil percentageOrdered B y: Kassi Ontiveros on 06-19-2024 Basophils/100 WBC (Bld) 0.4 % 0-1 [facility] CBC W/Diff, Automatedon 05-25 Absolute Lymph 3.09 X10 3/uL Normal 0.83-4.51 [facility] Comment on above: Performed By: #### L 509.4005, L3890.6005, L900.0098, L3890.6100, L100.0100, BTS, L3890.6300, L509.8000 ####[facility] [address] [place], [address] Absolute Neut 12.1 X10 3/uL High 2.0-7.7 [facility] Comment on above: Performed By: #### L 509.4005, L3890.6005, L900.0098, L3890.6100, L100.0100, BTS, L3890.6300, L509.8000 ####[facility] [address] [place], [address] Basophils/100 WBC (Bld) 0.4 % Normal 0-1 [facility] Comment on above: Performed By: #### L 509.4005, L3890.6005, L900.0098, L3890.6100, L100.0100, BTS, L3890.6300, L509.8000 ####[facility] [address] [place], [address] Eosinophils/100 WBC (Bld) 1.4 % Normal 0-5 [facility] Comment on above: Performed By: #### L 509.4005, L3890.6005, L900.0098, L3890.6100, L100.0100, BTS, L3890.6300, L509.8000 ####[facility] [address] [place], [address] Erythrocyte distribution width (RBC) [Ratio] 13.5 % Normal 11.6-14.6 [facility] Comment on above: Performed By: #### L 509.4005, L3890.6005, L900.0098, L3890.6100, L100.0100, BTS, L3890.6300, L509.8000 ####[facility] [address] [place], [address] Hematocrit (Bld) [Volume fraction] 39.3 % Normal 37-47 [facility] Comment on above: Performed By: #### L 509.4005, L3890.6005, L900.0098, L3890.6100, L100.0100, BTS, L3890.6300, L509.8000 ####[facility] [address] [place], [address] Hemoglobin (Bld) [Mass/Vol] 12.9 g/dL Normal 12.0-15.0 [facility] Comment on above: Performed By: #### L 509.4005, L3890.6005, L900.0098, L3890.6100, L100.0100, BTS, L3890.6300, L509.8000 ####[facility] [address] [place], [address] IG% 0.500 Normal 0.0-0.9 [facility] Comment on above: Result Comment: IG% - Immature Granulocytes (promyelocytes, myelocytes and metamyelocytes) > 1% indicates that a LEFT SHIFT is Present. Performed By: #### L 509.4005, L3890.6005, L900.0098, L3890.6100, L100.0100, BTS, L3890.6300, L509.8000 ####[facility] [address] [place], [address] Lymphocytes/100 WBC (Bld) 18.1 % Low 19-41 [facility] Comment on above: Performed By: #### L 509.4005, L3890.6005, L900.0098, L3890.6100, L100.0100, BTS, L3890.6300, L509.8000 ####[facility] [address] [place], [address] MCH (RBC) [Entitic mass] 29.7 pg Normal 27.0-32.0 [facility] Comment on above: Performed By: #### L 509.4005, L3890.6005, L900.0098, L3890.6100, L100.0100, BTS, L3890.6300, L509.8000 ####[facility] [address] [place], [address] MCHC (RBC) [Mass/Vol] 32.8 g/dL Normal 32-36 [facility] Comment on above: Performed By: #### L 509.4005, L3890.6005, L900.0098, L3890.6100, L100.0100, BTS, L3890.6300, L509.8000 ####[facility] [address] [place], [address] MCV (RBC) [Entitic vol] 90.6 fL Normal 81-99 [facility] Comment on above: Performed By: #### L 509.4005, L3890.6005, L900.0098, L3890.6100, L100.0100, BTS, L3890.6300, L509.8000 ####[facility] [address] [place], [address] Monocytes/100 WBC (Bld) 8.6 % Normal 0-10 [facility] Comment on above: Performed By: #### L 509.4005, L3890.6005, L900.0098, L3890.6100, L100.0100, BTS, L3890.6300, L509.8000 ####[facility] [address] [place], [address] Neutrophils/100 WBC (Bld) 71.0 % High 47-70 [facility] Comment on above: Performed By: #### L 509.4005, L3890.6005, L900.0098, L3890.6100, L100.0100, BTS, L3890.6300, L509.8000 ####[facility] [address] [place], [address] Nucleated RBC (Bld) [#/Vol] 0 10*3/uL Normal 0-5 [facility] Comment on above: Performed By: #### L 509.4005, L3890.6005, L900.0098, L3890.6100, L100.0100, BTS, L3890.6300, L509.8000 ####[facility] [address] [place], [address] Platelet mean volume (Bld) [Entitic vol] 11.5 fL Normal 6.2-12.0 [facility] Comment on above: Performed By: #### L 509.4005, L3890.6005, L900.0098, L3890.6100, L100.0100, BTS, L3890.6300, L509.8000 ####[facility] [address] [place], [address] Platelets (Bld) [#/Vol] 424 10*3/uL Normal 150-450 [facility] Comment on above: Performed By: #### L 509.4005, L3890.6005, L900.0098, L3890.6100, L100.0100, BTS, L3890.6300, L509.8000 ####[facility] [address] [place], [address](225) RBC (Bld) [#/Vol] 4.34 10*6/uL Normal 4.2-5.4 [facility] Comment on above: Performed By: #### L 509.4005, L3890.6005, L900.0098, L3890.6100, L100.0100, BTS, L3890.6300, L509.8000 ####[facility] [address] [place], [place], [id number] RDW SD 45.9 fl High 35.1-43.9 [facility] Comment on above: Performed By: #### L 509.4005, L3890.6005, L900.0098, L3890.6100, L100.0100, BTS, L3890.6300, L509.8000 ####[facility] [address] [place], [place], [address]) WBC (Bld) [#/Vol] 17.0 10*3/uL High 4.4-11.0 [facility] Comment on above: Performed By: #### L 509.4005, L3890.6005, L900.0098, L3890.6100, L100.0100, BTS, L3890.6300, L509.8000 ####[facility] [address] [place], [place], [address] Eosinophil percentageOrdered By: Kassi Ontiveros on 06-19-2024 Eosinophils/100 WBC (Bld) 1.4 % 0-5 [facility] Erythrocyte distribution wid th (RBC) [Ratio]Ordered By: Kassi Ontiveros on 06-19-2024 Erythrocyte distribution width (RBC) [Entitic vol] 45.9 fL High 35.1-43.9 [facility] Erythrocyte distribution wid th ratioOrdered By: Kassi Ontiveros on 06-19-2024 Erythrocyte distribution width (RBC) [Ratio] 13.5 % 11.6-14.6 [facility] HIV - WCHon 06-19-2024 HIV Non-Reactive Normal Nonreactive [facility] Comment on above: Order Comment: Reaso n for Exam: Performed By: #### L 509.4005, L3890.6005, L900.0098, L3890.6100, L100.0100, BTS, L3890.6300, L509.8000 ####[facility] [address] [place], [address] HIV 1+2 Ab+HIV1 p24 Ag IA Ql Ordered By: Kassi Ontiveros on 06-19-2024 HIV (1&2) Antibody Non-Reactive Nonreactive [facility] Hematocrit Auto (Bld) [Volum e fraction]Ordered By: Kassi Ontiveros on 06-19-2024 Hematocrit (Bld) [Volume fraction] 39.3 % 37-47 [facility] Hemoglobin measurementOrdere d By: Kassi Ontiveros on 06-19-2024 Hemoglobin (Bld) [Mass/Vol] 12.9 g/dL 12.0-15.0 [facility] Hepatitis B Surface Antigeno n 06-19-2024 HEP B Surf Ag Non-Reactive [facility] Comment on above: Order Comment: Reaso n for Exam: Performed By: #### L 509.4005, L3890.6005, L900.0098, L3890.6100, L100.0100, BTS, L3890.6300, L509.8000 ####[facility] [address] [place], [address] Hepatitis B surface antigen detectionOrdered By: Kassi Ontiveros on 06-19-2024 Hepatitis B Surface Antigen Non-Reactive Nonreactive [facility] Hepatitis C Antibodyon 06-19 Hepatitis C AB Non-Reactive [facility] Comment on above: Order Comment: Reaso n for Exam: Result Comment: Non Reactive: < 0.8 Equivocal: >/= 0.8 to < 1.0 Reactive: >/= 1.0 The CDC requires that a reactive/equivocal HCV antibody result be sent out for confirmation. HCV Quant by PCR testing. Performed By: #### L 509.4005, L3890.6005, L900.0098, L3890.6100, L100.0100, BTS, L3890.6300, L509.8000 ####[facility] [address] [place], [place], [id number] Hepatitis C virus antibody a ssayOrdered By: Kassi Ontiveros on 06-19-2024 Hepatitis C Antibody Non-Reactive Nonreactive [facility] Comment on above: Non Reactive: < 0.8 Equivocal: >/= 0.8 to < 1.0 Reactive: >/= 1.0The CDC requires that a reactive/equivocal HCV antibody result be sent out for confirmation. HCV Quant by PCR testing. Immature granulocytes/100 WB C Auto (Bld)Ordered By: Kassi Ontiveros on 06-19-2024 Immature granulocytes/100 WBC (Bld) 0.500 % 0.0-0.9 [facility] Comment on above: IG% - Immature Granu locytes (promyelocytes, myelocytes and metamyelocytes) > 1% indicates that a LEFT SHIFT is Present. L509.8000on 06-19-2024 Syphilis Abs Non-Reactive Normal [facility] Comment on above: Order Comment: Reaso n for Exam: Performed By: #### L 509.4005, L3890.6005, L900.0098, L3890.6100, L100.0100, BTS, L3890.6300, L509.8000 ####[facility] [address] [place], [place], [id number] Lymphocytes Auto (Unsp spec) [#/Vol]Ordered By: Kassi Ontiveros on 06-19-2024 Lymphocytes (Bld) [#/Vol] 3.09 10*3/uL 0.83-4.51 [facility] Lymphocytes/100 WBC Auto (Un sp spec)Ordered By: Kassi Ontiveros on 06-19-2024 Lymphocytes/100 WBC (Bld) 18.1 % Low 19-41 [facility] MCV (mean corpuscular volume ) determinationOrdered By: Kassi Ontiveros on 06-19-2024 MCV (RBC) [Entitic vol] 90.6 fL 81-99 [facility] Mean corpuscular hemoglobin (MCH) determinationOrdered By: Kassi Ontiveros on 06-19-2024 MCH (RBC) [Entitic mass] 29.7 pg 27.0-32.0 [facility] Mean corpuscular hemoglobin concentration (MCHC) determinationOrdered By: Kassi Ontiveros on 06-19-2024 MCHC (RBC) [Mass/Vol] 32.8 g/dL 32-36 [facility] Mean platelet volume determi nationOrdered By: Kassi Ontiveros on 06-19-2024 Platelet mean volume (Bld) [Entitic vol] 11.5 fL 6.2-12.0 [facility] Miscellaneous procedureOrder ed By: Kassi Ontiveros on 06-19-2024 Miscellaneous Test Comment SEE SCANNED REPORT [facility] Monocyte percentageOrdered B y: Kassi Ontiveros on 06-19-2024 Monocytes/100 WBC (Bld) 8.6 % 0-10 [facility] NATERAon 06-19-2024 NATURA SEE SCANNED REPORT Normal [facility] Comment on above: Order Comment: Comme nts: NIPT with gender carrier testing Performed By: #### L 509.4005, L3890.6005, L900.0098, L3890.6100, L100.0100, BTS, L3890.6300, L509.8000 ####[facility] [address] [place], [address] Neutrophil percentageOrdered By: Kassi Ontiveros on 06-19-2024 Neutrophils/100 WBC (Bld) 71.0 % High 47-70 [facility] Nucleated red blood cell per centageOrdered By: Kassi Ontiveros on 06-19-2024 Nucleated RBC/100 WBC (Bld) [Ratio] 0 % 0-5 [facility] Platelet countOrdered By: Evangelina Ontiveros on 06-19-2024 Platelets (Bld) [#/Vol] 424 10*3/uL 150-450 [facility] RBC Auto (Bld) [#/Vol]Ordere d By: Kassi Ontiveros on 06-19-2024 RBC (Bld) [#/Vol] 4.34 10*6/uL 4.2-5.4 [facility] Rubella IgGon 06-19-2024 Rubella IgG Non-Reactive Normal Nonreactive [facility] Comment on above: Order Comment: Reaso n for Exam: Result Comment: Anti body Results Interpretation of Immune Status Non Reactive Presumed Non-Immune Equivocal Equivocal Reactive Presumed Immune Performed By: #### L 509.4005, L3890.6005, L900.0098, L3890.6100, L100.0100, BTS, L3890.6300, L509.8000 ####[facility] [address] [place], [place], [id number] Rubella immune status IgGOrd ered By: Kassi Ontiveros on 06-19-2024 Rubella IgG Antibody Non-Reactive Nonreactive [facility] Comment on above: Antibody Results Int erpretation of Immune Status Non Reactive Presumed Non-Immune Equivocal Equivocal Reactive Presumed Immune Treponema sp Ab Ql (S)Ordere d By: Kassi Ontiveros on 06-19-2024 Syphilis Total Antibody Non-Reactive [facility] Type AND Screenon 06-19-2024 Ab SCREEN GEL Negative Normal [facility] Comment on above: Order Comment: PN Performed By: #### L 509.4005, L3890.6005, L900.0098, L3890.6100, L100.0100, BTS, L3890.6300, L509.8000 ####[facility] [address] [place], [place], [id number] ABO and Rh group Nom (Bld) Blood group O Rh(D) positive Normal [facility] Comment on above: Order Comment: PN Performed By: #### L 509.4005, L3890.6005, L900.0098, L3890.6100, L100.0100, BTS, L3890.6300, L509.8000 ####[facility] [address] [place], [place], [id number] White blood cell (WBC) count Ordered By: Kassi Ontiveros on 06-19-2024 WBC (Bld) [#/Vol] 17.0 10*3/uL High 4.4-11.0 [facility] Chlamydia/GC CONOR aptimaon CHLAMY,NUC ACID Negative Normal Negative [facility] Comment on above: Performed By: #### M 100.2200, L7000.1800 ####[facility] [address] [place], [place], [id number] GC BY NUC ACID Negative Normal Negative [facility] Comment on above: Result Comment: Perf ormed at: =G - [facility] [address] [id number] Block Placer: Agueda Cuadra MD, Phone: [phone] Performed By: #### M 100.2200, L7000.1800 ####[facility] [address] [place], [place], [id number] Urine Cultureon 05-31-2024 [facility] Escherichia coli [place] Count 11,000-25,000 Escherichia coli: REACTION Ampicillin Islt [...] TMP SMX Islt HUMERA <=20 S Normal [facility] Comment on above: Performed By: #### M 100.2200, L7000.1800 ####[facility] [address] [place], [place], [id number] C. trachomatis rRNA CONOR+prob e Ql (Unsp spec)Ordered By: Kassi Ontiveros on 05-29-2024 Chlamydia DNA (CONOR) Negative Negative [facility] Neisseria gonorrhoeae nuclei c acid detection by amplified probe techniqueOrdered By: Kassi Ontiveros on 05-29-2024 N. gonorrhoeae DNA CONOR+probe Ql (Unsp spec) Negative Negative [facility] Comment on above: Performed at: =[facility] [place] [id number] Director: Agueda Cuadra MD, Phone: [phone] [employer] [facility] Visit Reporton 05-29-2024 [employer] [facility] [facility] [address], [address] [place] [address] OFFICE VISIT Date of Service: 05/29/24 MR#: [id number] Acct: [id number] Name: AIMEE REDDY Rep #: [id number] : 2000 Provider: JOEL kenyon Age/Sex: 24/F Location: [facility] [place] Status: Signed Intake Vital Signs 05/29/24 11:19 Height 5 ft 4 in Weight: 125 lb 4 oz BMI 21.4 BP 127/76 H Intake Visit Reasons: New OB, LMP 03/24/25, TERESITA 12/29/24 Academic Interventionist Required: No Is patient in pain?: No [...] current occupational status: employed current occupation: [employer] pets and animals: Yes pets and animals: [...] activity do you participate in: none ana m/congregation: Anabaptist seatbelt use: always do you feel safe at home: Yes additional social history: CARLO Coley History 1 Elective abortions Hx Para 0 Spontaneous abortions Hx # Term Pregnancies Ectopic pregnancies Hx # Pregnancies Multiple births # of living children HPI New OB, LMP 03/24/25, TERESITA 12/29/24 Details: AIMEE REDDY is a 24 year [...] Pulmonary (e.g.,TB,Asthma), Seasonal allergies, Drug/latex allergies/reactions, Breast, 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 Normal [facility] Urine cultureOrdered By: Easton Ontiveros on 05-29-2024 Bacteria identified Cx Nom (U) Escherichia coli Abnormal [facility] US PELVIC TRANSVAGINAL WITH COLOR FLOWon 03-18-2024 [...] on SatMar 20, 2024 11:19:58 AM EDT [facility] Comment on above: Order Comment: Injur [...] measuring up to 20 mm. There is xmda-fe-iujdzmqu free fluid in the pelvis. There is no suspicious adnexal mass. Lymph nodes: No retroperitoneal or abdominal lymphadenopathy. Vascular: The aorta demonstrates normal caliber without aneurysm or dissection.The branch vessels of the aorta are widely patent. Peritoneum: Mild to moderate ascites in the pelvis. Abdominal wall and Skeletal: Unremarkable without acute abnormality. _ IMPRESSION: 1. There is a ifap-ux-hvrvvwnb amount of free fluid in the pelvis [...] AM EDT Transcribed by: VARGHESE ALCANTAR on Sun Mar 15, 2024 9:07:50 AM EDT Finalized by: VARGHESE ALCANTAR on [place] Mar 15, 2024 9:07:50 AM EDT [facility] Comment on above: Order Comment: Injur y/Trauma or Illness?:Illness/Other How long have you had these symptoms (acute/chronic)?:Acute Reason for exam?:lower abd pain Type of Exam?:Initial Additional signs and symptoms?:pain x hours ED Prov Noteon 03-15-2024 ED Prov Note ED PROVIDER NOTE [facility] EMERGENCY DEPARTMENT NAME: Aimee Reddy AGE: 24 y.o. : 2000 VISIT DATE: 03/15/2024 CSN: [id number] PCP: No, Physician Chief Complaint Patient presents [...] with biopsy; Surgeon: Sergio Gray MD; Location: [facility] [place] OR; Service: General Surgery EGD N/A 02/24/2019 Procedure: ESOPHAGOGASTRODUODENOSCO PY with biopsy; Surgeon: Sergio Gray MD; Location: [facility] [place]; Service: General Surgery SPLENECTOMY, TOTAL 2011 [...] Financial Resource Strain: Unknown (11/16/2021) Received from [facility] Overall Financial Resource Strain (CARDIA) Difficulty of Paying Living Expenses: Patient declined Food Insecurity: Unknown (11/16/2021) Received from [facility] Health [facility] Hunger Vital Sign Worried About Running Out of Food in the Last Year: Patient declined Ran Out of Food in the Last Year: Patient declined Transportation Needs: Unknown (11/16/2021) Received from [facility]ARMA[facility]ET [facility] PRAPARE - Transportation Lack of Transportation (Medical): Patient declined Lack of Transportation (Non-Medical): Patient declined Physical Activity: Unknown (11/16/2021) Received from [facility] Exercise Vital Sign Days of Exercise per Week: Patient declined Minutes of Exercise per Session: Patient declined Stress: Unknown (11/16/2021) Received from [facility] [employer] [facility] [employer] [facility] [employer] - Occupational Stress Questionnaire Feeling of Stress : Patient declined Social Connections: Unknown (11/16/2021) [facility] Social Connection and Isolation Panel [NHANES] Frequency of Communication with Friends and Family: Patient declined Frequency of Social Gatherings with Friends and Family: Patient declined Attends Jew Services: Patient declined Active Member of Clubs or Organizations: Patient declined Attends Club or Organization Meetings: Patient declined Marital Status: Patient declined Housing Stability: Unknown (11/16/2021) [facility] Housing Stability Vital Sign Unable to [...] Normocephalic. Eyes: (more content not included)... Normal [facility] POC BASIC METABOLIC PANEL - [facility] 03-15-2024 Chloride [Moles/Vol] 111 mmol/L High 98-108 [facility] Comment on above: Order Comment: [facility] has implemented the eGFR calculation approach that does not have a coefficient for race that conforms to the NKF-ASN Task Force Recommendations. CO2 [Moles/Vol] 25 mmol/L Normal 21-32 [facility] Comment on above: Order Comment: [facility] has implemented the eGFR calculation approach that does not have a coefficient for race that conforms to the NKF-ASN Task Force Recommendations. Creatinine [Mass/Vol] 0.45 mg/dL Normal 0.40-1.10 [facility] Comment on above: Order Comment: [facility] has implemented the eGFR calculation approach that does not have a coefficient for race that conforms to the NKF-ASN Task Force Recommendations. Glucose [Mass/Vol] 108 mg/dL High 65-99 [facility] Comment on above: Order Comment: [facility] has implemented the eGFR calculation approach that does not have a coefficient for race that conforms to the NKF-ASN Task Force Recommendations. POC GFR 138 mL/min/1.73 m2 Normal >=60 [facility] Comment on above: Order Comment: [facility] has implemented the eGFR calculation approach that does not have a coefficient for race that conforms to the NKF-ASN Task Force Recommendations. Result Comment: Yoly mated GFR was calculated using the 2020 CKD-EPI creatinine equation. POC IONIZED CALCIUM 4.5 mg/dL Normal 4.5-5.3 [facility] Comment on above: Order Comment: [facility] has implemented the eGFR calculation approach that does not have a coefficient for race that conforms to the NKF-ASN Task Force Recommendations. Potassium [Moles/Vol] 4.5 mmol/L Normal 3.5-5.1 [facility] Comment on above: Order Comment: [facility] has implemented the eGFR calculation approach that does not have a coefficient for race that conforms to the NKF-ASN Task Force Recommendations. Sodium [Moles/Vol] 145 mmol/L Normal 135-145 [facility] Comment on above: Order Comment: [facility] has implemented the eGFR calculation approach that does not have a coefficient for race that conforms to the NKF-ASN Task Force Recommendations. Urea nitrogen [Mass/Vol] 6 mg/dL Low 8-25 [facility] Comment on above: Order Comment: [facility] has implemented the eGFR calculation approach that does not have a coefficient for race that conforms to the NKF-ASN Task Force Recommendations. Chloride [Moles/Vol] 112 mmol/L High 98-108 [facility] Comment on above: Order Comment: Criti courtney result acted upon time of test. Test performed at bedside. [facility] has implemented the eGFR calculation approach that does not have a coefficient for race that conforms to the NKF-ASN Task Force Recommendations. CO2 [Moles/Vol] 26 mmol/L Normal 21-32 [facility] Comment on above: Order Comment: Criti courtney result acted upon time of test. Test performed at bedside. [facility] has implemented the eGFR calculation approach that does not have a coefficient for race that conforms to the NKF-ASN Task Force Recommendations. Creatinine [Mass/Vol] 0.53 mg/dL Normal 0.40-1.10 [facility] Comment on above: Order Comment: Criti courtney result acted upon time of test. Test performed at bedside. [facility] has implemented the eGFR calculation approach that does not have a coefficient for race that conforms to the NKF-ASN Task Force Recommendations. Glucose [Mass/Vol] 101 mg/dL High 65-99 [facility] Comment on above: Order Comment: Criti courtney result acted upon time of test. Test performed at bedside. [facility] has implemented the eGFR calculation approach that does not have a coefficient for race that conforms to the NKF-ASN Task Force Recommendations. POC GFR 133 mL/min/1.73 m2 Normal >=60 [facility] Comment on above: Order Comment: Criti courtney result acted upon time of test. Test performed at bedside. [facility] has implemented the eGFR calculation approach that does not have a coefficient for race that conforms to the NKF-ASN Task Force Recommendations. Result Comment: Yoly mated GFR was calculated using the 2020 CKD-EPI creatinine equation. POC IONIZED CALCIUM 4.2 mg/dL Low 4.5-5.3 [facility] Comment on above: Order Comment: Criti courtney result acted upon time of test. Test performed at bedside. [facility] has implemented the eGFR calculation approach that does not have a coefficient for race that conforms to the NKF-ASN Task Force Recommendations. Potassium [Moles/Vol] 8.2 mmol/L Off scale high 3.5-5.1 [facility] Comment on above: Order Comment: Criti courtney result acted upon time of test. Test performed at bedside. [facility] has implemented the eGFR calculation approach that does not have a coefficient for race that conforms to the NKF-ASN Task Force Recommendations. Sodium [Moles/Vol] 142 mmol/L Normal 135-145 [facility] Comment on above: Order Comment: Criti courtney result acted upon time of test. Test performed at bedside. [facility] has implemented the eGFR calculation approach that does not have a coefficient for race that conforms to the NKF-ASN Task Force Recommendations. Urea nitrogen [Mass/Vol] 6 mg/dL Low 8-25 [facility] Comment on above: Order Comment: Criti courtney result acted upon time of test. Test performed at bedside. [facility] has implemented the eGFR calculation approach that does not have a coefficient for race that conforms to the NKF-ASN Task Force Recommendations. POC CBC AND DIFFERENTIALon 0 03-15-2024 BASOPHILS ABSOLUTE COUNT 0.02 K/mcL Normal 0.00-0.30 [facility] Basophils/100 WBC (Bld) 0.2 % Normal [facility] Eosinophils (Bld) [#/Vol] 0.21 10*3/uL Normal 0.00-0.50 [facility] Eosinophils/100 WBC (Bld) 1.6 % Normal [facility] Erythrocyte distribution width (RBC) [Ratio] 13.8 % Normal 11.6-14.8 [facility] Hematocrit (Bld) [Volume fraction] 46.2 % High 36.0-46.0 [facility] Hemoglobin (Bld) [Mass/Vol] 15.5 g/dL Normal 12.0-16.0 [facility] IG ABSOLUTE 0.05 K/mcL Normal 0.00-0.30 [facility] IG PERCENT 0.40 % Normal [facility] Comment on above: Result Comment: The IG parameter is the percentage of metamyelocytes, myelocytes and promyelocytes. An immature granulocyte count (IG) of 1% or more suggests the possibility of infection, an IG count of 3% is very likely related to an infection. Lymphocytes (Bld) [#/Vol] 5.09 10*3/uL High 0.90-4.00 [facility] Lymphocytes/100 WBC (Bld) 39.5 % Normal [facility] MCH (RBC) [Entitic mass] 29.8 pg Normal 26.0-34.0 [facility] MCV (RBC) [Entitic vol] 88.8 fL Normal 80.0-100.0 [facility] MEAN CORPUSCULAR HEMOGLOBIN CONC 33.5 g/dL Normal 31.0-37.0 [facility] Monocytes (Bld) [#/Vol] 1.15 10*3/uL High 0.30-0.90 [facility] Monocytes/100 WBC (Bld) 8.9 % Normal [facility] NEUTROPHILS ABSOLUTE COUNT 6.35 K/mcL Normal 1.70-7.00 [facility] Neutrophils/100 WBC (Bld) 49.4 % Normal [facility] Platelet mean volume (Bld) [Entitic vol] 12.2 fL Normal 9.4-12.4 [facility] Platelets (Bld) [#/Vol] 121 10*3/uL Low 150-400 [facility] RBC (Bld) [#/Vol] 5.20 10*6/uL Normal 4.00-5.20 [facility] WBC (Bld) [#/Vol] 12.87 10*3/uL High 4.50-11.00 [facility] POC LIVER PANEL PLUS [facility] 03-15-2024 Albumin [Mass/Vol] 4.2 g/dL Normal 3.2-5.2 [facility] ALP [Catalytic activity/Vol] 64 U/L Normal 40-140 [facility] ALT [Catalytic activity/Vol] 18 U/L Normal 0-40 [facility] Amylase [Catalytic activity/Vol] 22 U/L Low 25-115 [facility] Amylase [Catalytic activity/Vol] 17 U/L Normal 7-33 [facility] POC AST (SGOT) Normal [facility] Comment on above: Result Comment: Resu lt unable to be determined. POC BILIRUBIN, TOTAL Normal [facility] Comment on above: Result Comment: Resu lt unable to be determined. Protein [Mass/Vol] 8.9 g/dL High 6.0-8.0 [facility] POC , URINE - [facility] 03-15-2024 Beta HCG ( test) Ql (U) Negative Normal Negative [facility] Comment on above: Order Comment: Negat luis alberto: Dilute urine specimens, as indicated by a low specific gravity (<1.010) may not contain representitive levels of hCG. If is still suspected, a serum test or repeat urine test using a first morning urine specimen should be considered. POC URINALYSIS DIPSTICK,AUTO - [facility] 03-15-2024 POC BILIRUBIN, URINE Negative Normal Negative [facility] POC BLOOD, URINE Negative Normal Negative [facility] POC GLUCOSE, URINE Negative Normal Negative [facility] POC KETONES, URINE Negative Normal Negative [facility] POC LEUKOCYTE ESTERASE, URINE Negative Normal Negative [facility] POC NITRITE, URINE Negative Normal Negative [facility] POC PH, URINE 7.0 Normal 5.0-7.0 [facility] POC PROTEIN, URINE Negative Normal Negative [facility] POC SPECIFIC GRAVITY 1.020 Normal 1.005-1.025 [facility] POC UROBILINOGEN 0.2 mg/dL Normal < 2.0 [facility] Provider Note - ED v3on 05-3 Provider Note - ED v3 Provider Note: [...] Description:NONE PER PT 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 Is : no REVIEW [...] SIGNS: T PRBP SpO2O2(LPM) %FiO2 Method 20-Nov-2022 11:19:[id number]/73 97 MDM MDM/ED COURSE: Discussed Findings with: [...] ill patient: no Electronic Signatures: Kevin Almeida (T RAIL TURNER-PENSION MANAGER) (Signed 20-Nov-2022 11:40) Authored: ED Notes, HPI, PMH, ROS, PE, Results/Vital Signs, MDM/ED Course, Clinical Impression, Attestation, Chart Review, Scores Last Updated: 20-Nov-2022 11:40 by Kevin Almeida (T RAIL TURNER-PENSION MANAGER) [facility] A STREP,PCRon 11-03-19 23 GROUP A STREP,PCR Not detected Normal Not Detected [facility] Comment on above: Result Comment: This test and its performance have been Validated by [facility] using analyte specific reagents (ASR). It has not been cleared or approved by the U.S. Food and Drug Administration. The FDA has determined that such clearance or approval is not necessary. Performed By: #### G APC1 #### [facility] [address] [place] [address] CORONAVIRUS 2019 BY PCRon SARS-CoV-2 (COVID-19) RNA CONOR+probe Ql (Unsp spec) Not detected Normal Not Detected [facility] Comment on above: Result Comment: . This test has received FDA Emergency Use Authorization (EUA) and has been verified by [facility]. This test is only authorized for the duration of time that circumstances exist to justify the authorization of the emergency use of in vitro diagnostic tests for the detection of SARS-CoV-2 virus and/or diagnosis of COVID-19 infection under section 564(b)(1) of the Act, 21 U.S.C. 360bbb-3(b)(1), unless the authorization is terminated or revoked sooner. [facility] is certified under CLIA-88 as qualified to perform high complexity testing. Testing is performed in the [facility] laboratory located at [address] [place] [address]. SARS-CoV-2/Flu/RSV Multiplex Test: Fact sheet for providers: https://www.fda.gov/media/798426/download Fact sheet for patients: https://www.fda.gov/media/125349/download Performed By: #### C OV19 #### [place] [address] Lab Specimen Source Nasal, Nasopharyngeal Normal [facility] Comment on above: Performed By: #### C OV19 #### [place] [address] Covid 19 Resultson 3 SARS-CoV-2 (COVID-19) RNA [...] You may also be contacted by the [place] [facility] to see if any [...] or Naproxen (Aleve) can also be used. Wofs-ktv-frqklrr cough and cold medicines can be used according to the instructions on the package. Some liku-dhs-lgytcxo medicines also contain acetaminophen. Make sure you [...] water are not available, use alcohol-based hand banbury operator. Avoid touching your eyes, nose, and mouth [...] 24 carson (more content not included)... Normal [facility] GROUP A STREP,PCRon 11-02-19 23 Lab Specimen Source Throat Normal [facility] [place] Comment on above: Performed By: #### G APC1 #### [facility] [address] [place] [address] Provider Note - ED v3on 10-22 Provider Note - ED v3 Provider Note: [...] SIGNS: T PRBP SpO2O2(LPM) %FiO2 Method 01-Nov-2022 09:09:00-36.625577/75 97 MDM MDM/ED COURSE: Limitations to History: n/a HPI: Patient presents with several days of upper respiratory symptoms, cough congestion runny nose, and sore throat, symptoms seem to be getting worse, has tried bqvo-ekf-owehtkn medications, here for further evaluation + fever. [...] media, conjunctivitis, strep, sinusitis, foreign body, mono, udun-vqen-cdg-mouth/coxs ackie herpangina, bronchitis/bronchiolitis , croup, allergic rhinitis, [...] educated that are also helpful and available ahcm-uka-qzeagxz. I discussed the results and discharge plan [...] Electronic Signatures for Addendum Section: Alethea Najera (MA II) (Signed Addendum 01-Nov-2022 14:01) Attempted to contact pt with covid results, left message on machine Electronic Signatures: Jia Lindsay (T RAIL TURNER-PENSION MANAGER) (Signed 01-Nov-2022 09:39) Authored: HPI, PMH, Results/Vital Signs, MDM/ED Course, Clinical Impression, Attestation, Chart Review, Scores Alethea Najera (MA II) (Signature Pending) Authored: Attestation Last Updated: 01-Nov-2022 14:01 (more content not included)... Normal [facility] GC + CHLAMYDIA BY AMPLIFIED DETECTIONon 09-26-2022 CHLAMYDIA TRACH.,AMPLIFIED Negative Normal Negative [facility] Comment on above: Result Comment: The APTIMA Combo 2 assay is FDA-approved for Chlamydia trachomatis and Neisseria gonorrhoeae testing on female endocervical and vaginal swabs, ThinPrep liquid pap samples, male urine samples and urethral swabs. Performance characteristics for Chlamydia trachomatis and Neisseria gonorrhoeae testing on specific rxh-QEC-zibuveau sample types (female urine samples) have been validated by [facility]. This laboratory is certified by CLIA to perform high complexity testing. Samples from all other sites are not validated for this method. Performed By: #### [facility] #### [facility] [address] [place] [address] N.GONORRHEA,AMPLIFIED Negative Normal Negative [facility] Comment on above: Result Comment: The APTIMA Combo 2 assay is FDA-approved for Chlamydia trachomatis and Neisseria gonorrhoeae testing on female endocervical and vaginal swabs, ThinPrep liquid pap samples, male urine samples and urethral swabs. Performance characteristics for Chlamydia trachomatis and Neisseria gonorrhoeae testing on specific lrj-IPE-bhkqeuot sample types (female urine samples) have been validated by [facility]. This laboratory is certified by CLIA to perform high complexity testing. Samples from all other sites are not validated for this method. Performed By: #### [facility] #### [facility] [address] [place] [id number] GC + CHLAMYDIA BY AMPLIFIED DETECTIONon 09-25-2022 Lab Specimen Source Urine Normal [facility] [place] Comment on above: Performed By: #### G [facility] #### [facility] [address] [place] [address] GROUP A STREP,PCRon 09-26-19 23 GROUP A STREP,PCR Not detected Normal Not Detected [facility] Comment on above: Result Comment: This test was performed utilizing an FDA- cleared rapid nucleic acid amplification by PCR to qualitatively detect Group A Streptococci from throat swab specimens without the need for culture confirmation of negative results. 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 Prefers not to repeat oral swab as testing was not completed per lab. Rx Zpak and prednisone. Electronic Signatures: Kevin Alemida (T RAIL TURNER-[facility]) (Signed 26-Sep-2022 15:15) Authored: ED Notes, HPI, PMH, ROS, PE, Results/Vital Signs, MDM/ED Course, Clinical Impression, Attestation, Chart Review, Scores Last Updated: 26-Sep-2022 15:16 by Kevin Almeida (T RAIL TURNER-PENSION MANAGER) [facility] Culture, Throaton 07-23-2022 Culture, Throat ORDER#: [id number] ORDERED BY: JAG GARCIA SOURCE: Throat Throat COLLECTED: 07/23/22 18:57 ANTIBIOTICS AT [facility].: RECEIVED : 07/23/22 19:12 Culture, Throat FINAL 07/26/22 10:34 Cult,Throat: Oral thuy, negative for Group A Strep and other beta Cult,Throat: hemolytic streptococci Performed at [address] [address] ([phone] [facility] Comment on above: Performed By: #### C XTHR #### [facility] [address] [place] [id number] Culture, Throaton 04-11-2022 Culture, Throat ORDER#: [id number] ORDERED BY: JAG GARCIA SOURCE: Throat Throat COLLECTED: 04/11/22 19:02 ANTIBIOTICS AT [facility].: RECEIVED : 04/11/22 19:26 Culture, Throat FINAL 04/14/22 08:32 Cult,Throat: Oral thuy, negative for Group A Strep and other beta Cult,Throat: hemolytic streptococci Performed at [address] [address] ([phone] [facility] Comment on above: Performed By: #### C XTHR #### [facility] [address] [place] [id number] Coding Summary.on 01-30-2022 Coding Summary. CD:[id number] Gh0b Ww+PGhlYWQ+YU5FLTIsS20fd OLlaG4OU0tBFA9FNVSIQKNRI L7TVE1zjST9TBtgF0ErhsVz OirzuBJgPU00LCc1OXW9cJgs LJcxtU5cvEPpZ5g8WiSeGK46 yT58MKwqDOToKwQ7MnRajkcf bWFy R7leZkRaeTAnJgc+PHRhYmxl IHdpZHRoPScxMDAlJyBzdHls PJ1iQw3dBTUsWRLonBylmTBb OiBj c4afUUFnXMtcWY3efTyaV0Fk mNE0KLOzp2c2Ag35oVP+PHRk EKW1fAlyQEjza750GjUni1ye IDM3 uHNlRSsnBKG8U76er6N0EIVc VRBeNKI7oWY1uP9ncYuyurdw Y1BkwHVvRnH8YAC8fVIczM8i bGln yzkawL8rSzn+Y45HVH1BYXIR DK8JXnh2H8PeNkjqrET+PC90 UILuSH85gUQejDQhk2zutXk2 JzEw PDRmYBP2bYraEFayu3LhGDMx J40jgQAvn5V1TJKvdPtqqJHh RzActVY6kV6kCMkqbxaqr9lf dzsn Ghsqi4tkhu87cJ40J05vCScl ZTOcKUU5JZZiCNJdiVkieu2n yI1xJk2+RLuev0ikq7vsoZu1 IjIw VNVlpaDdlBwhVAH8x4MgDm94 S9BqbUctm1YpRps1cs67oAMd n6K6sEA5ONwmCNIfsA7uFHow ZnQ6 UVQbYqIpzH36uUTdFLnqAa9z iJvafUtaQD6xRUPejkorBTIc hC6eFYAzbASzcXkhMD0rATJd bjtm p023QwKvOIX2YCSgoMJlT0Sw pB6hDeHvAAGoJWIbV1WoyXJa WIogU709OPgwXfQ6AYHjrhYd Y2Fs RKZqyOtnYfB3h6W7Rp7Wo4Ur kafrEFY7DUgyXAB9HuT5WrJc PdS5E4QxMoy1DFLjdPtmED5r J3Bh RAHxrybniycgsXM5WBYnHTOp rC07xQQeWSlaJb6bl8L1j238 CRLvNQFdjN05Gi5rtPbiPYLx dCBU jA5qwgapb0dfvzijZsDuUIOw CPm3UJi6LARmxKssZmXoWTJ1 UgV4BJP3eIUjpM9soDosinjr dG9w Oyc+T60vbQ2iWGM7ASH1dmew OAUoryFlIF28VA30T3IvTfwe dGFibGU+UYEithCiuYeeVF6a YmFj y5btt6CmSIelL6XaMKWkCCwk Bgn3HQRjGPM4pDQ5eQ6uOWJp WXein3D8vBM8D5EqxxDmit2c b2xs NYKfXPzpK43xvDWiw7X7HLMs aWB6JHPybChvRxQeaX62Ifk+ WBZszScvy8PzNricf2vkh1tl dGg9 RvAzNQUaajGzwQdcXLX4l0Lx Bj78G10wOIloXPVjCWRfVZRr CKZhjNazfo7giX7dBp9+PGNv bCB3 wPN9jJ6rODKeQuO5SHeuT085 VuLgtCBoFjkfl1xhe7gskUd9 WyEtSWVslkWwsXorUCA7s0De Lz48 Q96pZCkuTEEbZBCtNEAnIJXg yPcwjy2uuB6hWt5+LN1ru3uf al13dT15vPM+FZNiBRW8iQdc PSdw PHQkiM3nNOzeXyI8UJWoYtYe xY52wOMgCEynJs5njSuerLsd WH9xYJObzlhiq180UbWeo9ic IDEw lJXhDXnxSOX1W38yo0H1SZXo DDXnJPU2gAI4gX0anHufdfmn bGVmdDsgdmVydGljYWwtYWxp Z246 IHRvcDsnPlBhdGllbnQgTmFt ONk0A7XgSlk3HLDtyQjeEJ0v oUSnXDlyEw8sqMbzhAjbWE4k NTBp enwsw051LbDmu5czGSIofQOz WJsbCKL1G59pa6Q3WBUpYAJg CLT8hCO7mQ5gaZalafmwqUOe dDsg reVduKxrYJmeHNyuF566PVUb cXidFaBjwkCrUWIvjKD1NJ74 RS59pIIbd9K7pLG5T0AvCEHq bmct barvgFP0LFLfLCTkgR14Ke9b uAajHy4eSEWyMUH5WJOvhGLe O4KjrS6tEyTkTVRlQJQwP3Yn eHQt HJyhY197HCpvZnM5VUCoixOs G5UgDWNxdGmcAvS9s5J6Hv0Z P1I6OM90BC64dUFvi8K2sGM0 J3Bh VVAabavdrkcleIB9AWDfPFRq iH97Ds8gqPklCg8xTLOxMHC5 EMOwbMIrV7MfbH2bOpTaHHAm MDAw N6BsvUHdWGehD036APysTkX6 RRUyxtIgK5AsJPHxzTgtYnZ2 p2U1Lj9IYIp2LW06JG83hCGa c3R5 iFM9G2ApIQSbicfnnimhlAL2 ZGHnUDWyaJ71Hc8otSxsXg4m SLNrNIQ6CWUipPNyU4QorB8h OiAj RAZqESMrJ2OhuRByCCazU923 VGiwMcJ4OTNnkpPwE5NlSPBw lFwpWmH5u2W6Rf9DLPCoUN75 IFR5 dOO9TI59IP58J0GuGvswnRSg bGU+PHRhYmxlIHdpZHRoPScx OVJwZlMghZzxRL2oMn5fKFCj LWNv lUrvtKOtXnYtn8viISUjJUda NS3ioNhcD8YprUN3KSHjc6d2 Ld23O72rF6OskRP+PGNvbCB3 aWR0 qZ5qMrWhErP7QSihO333UoAi eTWzLcijd8apo6fnnTi4OxP9 MTKqiiDsfKkgUVS9y6QtHh35 Y29s IHdpZHRoPSIxNSUiIHZhbGln ja3dmM6iRa2+ADBprOU5kTY6 tP9bGyVtOsC0MRsxT963NdJx cCIv Hzsub1dik7ajcWz7LjYoUJEb niYxdVptIDM0l5EqXi83Q2Us tJdko0MeItw8rp69wVDqi5J3 bGU9 X2IfDZCpnjxuqDLkeEmbSK6s JFZrhtsqGXMndT6qTRQaB4a1 JhLtXcT0ECnpW8SwdnL8UMUh cHQg MHacDSK3U07wp4M7TZHxWHWo MMS1jCA6zD1fcUfhurjjmLEy qNvhluTssHobUYceQRjtH265 IHRv dZjdWMPuoF7mYDQagNRjxChs CW4jUKCntpqeXekYB79JDDCi RCETKPGVID77GV55tMFcb2S3 bGU9 E2YbMLBhdybtccffqIG8KSOc IKOgdZ20wRQzMNvbBr0sg0P8 h080CXQaSMHdsL08Ce8yqSdd MTBw oSBDlZ2ppvxnh4xsavofZnUv LGPkWCh7EOo5YYVksYosStFc WDN5VwO9AEP8mHGcnW2ikUkd bjog rC3kJpj+MDgvMjkvMjAwMDwv dGQ+IHJgYMY2fTmfBPvmFXIr eA9tPMYeU8w8FdSsRmV7SMbv O3Bh FSPnqhfcFo31dB3uVwYxYvQ9 ZUoaV1UhdeA9MSHxlIMjBOty YIQ2V79xc7J1LEQoBSYaQJS5 dGV4 oD8imVcpzvxbgKEweRlvubPc sGwpBSipBSzvN637NFGbwAgz LnBxCGoaKNRaYK58RZ23vAIw c3R5 eGF5C6NaZPIeczbhgypcaUO8 PKMwQPKpbO61rLGtJDowOc5l q0Y1q636FMBhTHAcbV63Ld8k dDog NDBlgQNLkM7ssttkk0elyvlj PqPzFYUxXRu1DZn3OQLesGbr DuExIIE6BnD3VFQ9pQUgqG1m bGln kdeteB4rJip+QdAkMOhvDM31 LU85mUNvj0X1fYI5G4CsYUZb agzfunzbePA1URKuTHLovP52 cGFk AOqtBv6hn1E8j038NPAhWBAh pY98Ty5dsQxxXFEhiDBItF8h ovuqt0csjhdpAbPwDHWyERw7 ZXh0 DPCtzOckLgRlZUO8XvV3PCY8 pQEovY7ojYcxmwuquT1wVdt+ GR8pvibhmsC1EJ69XX49O9Hq Pjwv dGFibGU+PHRhYmxlIHdpZHRo JOsjNSTnAiLmeCceVJ2rOc4a GVEpHJFsgYxqbTBlClSkx7zh YXBz IZjaVA5nmLoeG1UfeTB1YGRf o8c1Ep95T62gH8FlcXG+PGNv dXS5zFZ1nP8nKgBaVzP9OBhm Z249 DqVhjUHcJxwlf4wvk6rccFm7 BnMqJEUbyiLtmNbaADX0r4Kc Xq98K29yZHpuGWXnNSOoQJQs IHZh dTizmt5jmQ4qLg9+PGNvbCB3 oBN1qZ7cBkXzFoE2MLvgB152 EwWaoOQkIhkwN69kU5XafUC+ PHRy Glx6QHWonJlbAO2vwRMkFBaw Na8vKEM9XxPiFpMwKRbmX5Bf LHPwhxzayvsjuPB8FNMqLSDw aW47 Pe8nfMbmYz6eAWBkFBC7TYDt hIZfC9SchD2vPkAuULDjFQPc Y2DvnIZvNLamZ797WIdjPaA1 IHZl xwVfG8KoZHGhqSkjDpE1v5V0 Bw8XgCcmbIHsJC7zJgFvNCc7 U3LkPlf7GSPyrPnwNR3tuFZx ZGlu Yf1ceWtsgPsaOK4qLPAvaysq u921RpNnr8uwXVWmjKWiQZwi YEO3E99qq9I7NDDvBVNaAIX9 dGV4 qB7noNztkjteqXTjmXvamgJq sKidCVfyWAekI225NOTplGnr BsPUVyz9A4MfTav2CAVtiEht ZT0n rJOgWNzdVs5vuExevTxjFT5p EENpyurgf036SyFoi0bfBKDe hHLtIAglSKF9H50ob3I1CROu MDAw KMI4sNG0aD1rgZhipnlxmKLd dOxndcDfpWqtXKjpSKemD602 YSWmpIphDd0FWbm4U1YfTez4 ZCBz gKcvMU2ptRZgKRixZs4nsSox fMzjHF8gTSMdjbouh930GgJe s5xbIAIgaSLtSIlfIVR4O74h b3I6 JOXiDBOsAKJ4fGK9eK0fsRoq bjogbGVmdDsgdmVydGljYWwt DOhkL533GFLwgBcxDhIwcRIr Ojwv dGQ+HE38gv88Q2HsTvbzRrf4 RKCxUTK8nMS4pK2cNZUvKUwt s5C8lBL4W5TmukPtoe2tk1rh YXBz ZTog (more content not included)... Normal [facility] C Urineon 01-29-2022 Bacteria identified Cx [...] Locations R1: This test was performed at: [facility], [address] [place] [address], [phone] , [facility] Comment on above: Performed By: #### 2 [id number], [id number], [id number] ####[address] [place] [address] ED Note-Physicianon 01-29-20 ED Note-Physician Basic Information [...] (mL): 1,000, (more content not included)... Normal [facility] Comment on above: Result Comment: Elec tronically Signed By: Brittni Carreon M.D.\.br\Date and Time Signed: 01/28/22 07:16 EDT\.br\Electronically Co-Signed By: Jes Montesinos PA-C\.br\Date and Time Co-Signed: 01/28/22 00:21 EDT Auto Diffon 01-27-2022 Basophils/100 WBC (Bld) 1.1 % Normal 0.0-2.0 [facility] Comment on above: Order Comment: Order Added by Discern Expert. Performed By: #### 2 397720, [id number], 1948216, 6333521 ####[facility] [address] [place] [address] Basophils/Leukocytes Auto (Bld) [Pure # fraction] 0.1 E9/L Normal 0.0-0.2 [facility] Comment on above: Order Comment: Order Added by Discern Expert. Performed By: #### 2 388344, 82813472, 1556527, 0129220 ####[place] [address] [place] [address] Eosinophils/100 WBC (Bld) 2.7 % Normal 0.0-8.0 [facility] Comment on above: Order Comment: Order Added by Discern Expert. Performed By: #### 2 458852, 73120052, 3939047, 8774974 ####[address] [address] Eosinophils/Leukocyte s Auto (Bld) [Pure # fraction] 0.3 E9/L Normal 0.0-0.5 [facility] Comment on above: Order Comment: Order Added by Discern Expert. Performed By: #### 2 274069, 34707182, 9187531, 3902676 ####[address] [address] Lymphocytes/100 WBC (Bld) 35.8 % Normal 14.0-50.0 [facility] Comment on above: Order Comment: Order Added by Discern Expert. Performed By: #### 2 083659, 33967771, 5524139, 2799140 ####[address] [address] Lymphocytes/Leukocyte s Auto (Bld) [Pure # fraction] 4.5 E9/L High 1.0-4.0 [facility] Comment on above: Order Comment: Order Added by Discern Expert. Performed By: #### 2 974484, 60329348, 8043865, 8881624 ####[address] [address] Monocytes/100 WBC (Bld) 9.4 % Normal 4.0-14.0 [facility] Comment on above: Order Comment: Order Added by Discern Expert. Performed By: #### 2 548685, 22635949, 4537121, 7049805 ####[address] [address] Monocytes/Leukocytes Auto (Bld) [Pure # fraction] 1.2 E9/L High 0.2-1.0 [facility] Comment on above: Order Comment: Order Added by Discern Expert. Performed By: #### 2 094908, 42263053, 6095653, 7297941 ####[address] [place] [address] Neutrophils/100 WBC (Bld) 51.0 % Normal 36.0-75.0 [facility] Comment on above: Order Comment: Order Added by Discern Expert. Performed By: #### 2 431493, 94093182, 0117567, 4446612 ####[address] [place] [address] Neutrophils/Leukocyte s Auto (Bld) [Pure # fraction] 6.4 E9/L Normal 2.0-7.5 [facility] Comment on above: Order Comment: Order Added by Discern Expert. Performed By: #### 2 198973, 38144048, 3564204, 0544613 ####[address] [address] CBC w/ Auto Diffon Erythrocyte distribution width (RBC) [Ratio] 13.7 % Normal 10.9-14.2 [facility] Comment on above: Performed By: #### 2 976824, 10659513, 0824960, 7752087 ####[address] [address] Hematocrit (Bld) [Volume fraction] 36.2 % Normal 34.0-46.0 [facility] Comment on above: Performed By: #### 2 877948, 97080116, 3160494, 3224473 ####[address] [address] Hemoglobin (Bld) [Mass/Vol] 11.5 g/dL Low 12.0-16.0 [facility] Comment on above: Performed By: #### 2 530959, 09277906, 5174309, 7623106 ####[address] [place] [address] MCH (RBC) [Entitic mass] 28.6 pg Normal 27.0-34.0 [facility] Comment on above: Performed By: #### 2 262138, 13320960, 8769747, 0755233 ####[place] MCHC (RBC) [Mass/Vol] 31.9 g/dL Normal 31.4-36.0 [facility] Comment on above: Performed By: #### 2 669838, 38275892, 6094654, 3760314 ####[place] [address] MCV (RBC) [Entitic vol] 89.7 fL Normal 80.0-100.0 [facility] Comment on above: Performed By: #### 2 000571, 95031937, 8636225, 6797517 ####[place] [address] Platelet mean volume (Bld) [Entitic vol] 9.4 fL Normal 6.4-10.8 [facility] Comment on above: Performed By: #### 2 750724, 04671091, 2236725, 7646802 ####[address] Platelets (Bld) [#/Vol] 296.0 E9/L Normal 150.0-500.0 [facility] Comment on above: Performed By: #### 2 454483, 84163229, 7385454, 2024207 ####[place] [place] [address] RBC (Bld) [#/Vol] 4.0 E12/L Low 4.3-5.9 [facility] Comment on above: Performed By: #### 2 175966, 67131690, 2922108, 5597972 ####[place] [place] [address] WBC corrected for nucl RBC Auto (Bld) [#/Vol] 12.5 E9/L High 4.0-11.0 [facility] Comment on above: Performed By: #### 2 558046, 19429316, 5532976, 6251964 ####[place] [facility] [address] [place] [address] CHEMISTRYOrdered By: SYSTEM SYSTEM on 01-27-2022 Albumin [...] 11. 1 mg/dL [facility] Chloride [Moles/Vol] 106 mmol/L Normal 101 - 1 11 mmol/L [facility] CO2 [Moles/Vol] 23 mmol/L Normal 21 - 31 mmol/L [facility] Creatinine [Mass/Vol] 0.7 mg/dL Normal 0.5 - 1.3 mg/dL [facility] GFR/1.73 sq M.predicted among blacks MDRD (S/P/Bld) [Vol rate/Area] mL/min/1.73 m2 Normal >=59mL/min/1 .73 m2 [facility] Chem S GFR/1.73 sq M.predicted among non-blacks MDRD (S/P/Bld) [Vol rate/Area] mL/min/1.73 m2 Normal >=59mL/min/1 .73 m2 [facility] Chem S Globulin (S) [Mass/Vol] 3.4 g/dL Normal 1.4 - 4.0 gm/dL [facility] Glucose [Mass/Vol] 91 mg/dL Normal 55 - 199 mg/dL [facility] Potassium [Moles/Vol] 3.7 mmol/L Normal 3.5 - 5.3 mmol/L [facility]isol Protein [Mass/Vol] 7.4 g/dL Normal 6.0 - 7.8 gm/dL [facility] Remisol Sodium [Moles/Vol] 136 mmol/L Normal 135 - 145 mmol/L [facility] Urea nitrogen [Mass/Vol] 15 mg/dL Normal 5 - 21 mg/dL [facility]isol Urea nitrogen/Creatinine [Mass ratio] 21 mg/mg High 10 - 20 [facility] Remisol CMPon 01-27-2022 Albumin [Mass/Vol] 4.0 g/dL Normal 3.3-5.0 [facility] Comment on above: Performed By: #### 2 114992, 63789818, 3157287, 2491494 ####[facility] [address] [place] [address] Albumin/Globulin (S) [Mass conc ratio] 1.2 Normal 1.1-2.2 [facility] Comment on above: Performed By: #### 2 468599, 93749048, 1495909, 8540508 ####[facility] [address] [place] [address] ALP [Catalytic activity/Vol] 55 Int._Unit/L Normal 21-98 [facility] Comment on above: Performed By: #### 2 566456, 91788440, 9172027, 7098478 ####[facility] [address] [place] [address] ALT No additional P-5'-P [Catalytic activity/Vol] 13 Int._Unit/L Normal 6-46 [facility] Comment on above: Performed By: #### 2 417262, 48660938, 1608009, 9852904 ####[facility] [address] [place] [address] AST [Catalytic activity/Vol] 17 Int._Unit/L Normal 5-43 [facility] Comment on above: Performed By: #### 2 285162, 34047423, 9780235, 7025505 ####[facility] [address] [place] [address] Bilirubin [Mass/Vol] 0.6 mg/dL Normal 0.0-1.1 [facility] Comment on above: Performed By: #### 2 062588, 71420308, 4637149, 1073534 ####[facility] [address] [place] [address] Creatinine [Mass/Vol] 0.7 mg/dL Normal 0.5-1.3 [facility] Comment on above: Performed By: #### 2 687830, 18397468, 0813667, 6816013 ####[facility] [address] [place] [address] Globulin (S) [Mass/Vol] 3.4 g/dL Normal 1.4-4.0 [facility] Comment on above: Performed By: #### 2 725105, 40970790, 9391552, 0789600 ####[facility] [address] [place] [address] Protein [Mass/Vol] 7.4 g/dL Normal 6.0-7.8 [facility] Comment on above: Performed By: #### 2 790242, 22774082, 2506883, 2171746 ####[facility] [address] [place] [address] Urea nitrogen [Mass/Vol] 15 mg/dL Normal 5-21 [facility] Comment on above: Performed By: #### 2 243791, 53162124, 9161661, 2068494 ####[facility] [address] [place] [address] Urea nitrogen/Creatinine [Mass ratio] 21 No Units High 10-20 [facility] Comment on above: Performed By: #### 2 384198, 66048580, 5538462, 5531244 ####[facility] [address] [place] [address] Anion gap [Moles/Vol] 11 mmol/L Normal 6-16 [facility] Comment on above: Performed By: #### 2 172959, 23134534, 4589554, 9153964 ####[facility] [address] [address] Calcium [Mass/Vol] 9.2 mg/dL Normal 8.9-11.1 [facility] Comment on above: Performed By: #### 2 078044, 49627623, 6643238, 7186472 ####[facility] [address] [address] Chloride [Moles/Vol] 106 mmol/L Normal 101-111 [facility] Comment on above: Performed By: #### 2 274991, 03354292, 7089609, 5023319 ####[facility] [address] [place] [address] CO2 [Moles/Vol] 23 mmol/L Normal 21-31 [facility] Comment on above: Performed By: #### 2 805170, 26040768, 6870753, 8768215 ####[facility] [address] [place] [address] Glucose [Mass/Vol] 91 mg/dL Normal 55-199 [facility] Comment on above: Result Comment: If t his glucose result represents a fasting glucose, interpretation should refer to the following reference range: 55-99 mg/dL Performed By: #### 2 680682, 89532263, 5712826, 6786496 ####[facility] [address] [address] Potassium [Moles/Vol] 3.7 mmol/L Normal 3.5-5.3 [facility] Comment on above: Performed By: #### 2 599526, 35221042, 2893152, 4416739 ####[facility] [address] [address] Sodium [Moles/Vol] 136 mmol/L Normal 135-145 [facility] Comment on above: Performed By: #### 2 222567, 28761022, 2124224, 6395361 ####[facility] [address] [place] [address] Consent for Treatmenton Consent for Treatment [id number]: 127 Normal [facility] Discharge Instructionson Discharge Instructions [id number]:1 27 Normal [facility] ED Clinical Summaryon 2021 ED Clinical Summary (Inserted Image. Kristine ble to display) [address] [address] ED Clinical Summary Person Information Name: AIMEE REDDY/New_Scott Age: 21 Years : 2000 Sex: Female Language: Japanese PCP: Britt Aguilar MD Marital Status: Single [...] 01/27/2022 19:10:22 01/27/2022 19:10:22 01/27/2022 19:10:22 ADDRESS: [address] [place] [id number] PHYS DOC NOTES: MEDICAL INFORMATION: Prescriptions Given: New Medications Printed Prescriptions nitrofurantoin (Macrobid 100 mg Cap) 1 Capsules By Mouth 2 times a day for 5 Days. Refills: 0. PATIENT EDUCATION INFORMATION: Instructions: Urinary Tract Infection, Adult, Wvjv-sn-Skoe Follow up: With: Address: When: Ulysses VERDE, STEPHEN [address] [place] [address] In 3 days 01/30/2022 With: Address: When: Lauren VERDE, Britt [facility] [place] [address] In 3 days 01/30/2022 DIAGNOSIS: 1:UTI (urinary tract infection); 2:Headache Normal [facility] ED Note-Nursingon 01-27-2022 ED Note-Nursing seizure pads applied Normal [facility] ED Patient Education Noteon 01-27-2022 ED [...] these instructions at home: Medicines ? Take mboc-ubw-usqtyvr and prescription medicines only as told by [...] 11/26/2008 Document Revised: 05/28/2019 Document Reviewed: 12/18/2018 [employer] Patient Education ? 2019 [employer]. Normal [facility] ED Patient Summaryon 022 ED Patient Summary (Inserted Image. Kristine ble to display) [place] [address] Patient Discharge Instructions Person Information Name: AIMEE REDDY Age: 21 Years Arrival Date: 01/27/2022 16:00:57 Discharge Diagnosis: 1:UTI (urinary tract infection); 2:Headache Primary Care Physician: Britt Aguilar MD Provider Information Primary Provider: Brittni Carreon M.D. Advanced Tax Examiner:Aurand PA-C, Jes E. The exam and treatment you received in the Emergency Department were for an urgent problem and are not intended as complete care. It is important that you follow up with a doctor, nurse practitioner, or physician?s assistant sales manager for ongoing care. If your symptoms become worse or you do not improve as expected and you are unable to reach your usual health care provider, you should return to the Emergency Department. We are available 24 hours a day. BARRY AIMEE has been given the following list of patient education materials, prescriptions and follow-up instructions: Follow-up Instructions: With: Address: When: Ulysses VERDE, STEPHEN Gamble [address] [place] [address] In 3 days 01/30/2022 With: Address: When: Lauren VERDE, Britt [facility] [place] [address] In 3 days 01/30/2022 In the event that this physician does not participate in your insurance network, please consult with your insurance company to find a nearby participating provider. Patient Education Materials: Urinary Tract Infection, Adult, Ltwz-mm-Tdir A MESSAGE TO ALL PATIENTS REGARDING OPIOIDS PRESCRIPTION OPIOIDS: WHAT YOU NEED TO KNOW Prescription opioids can be used to help relieve cjzfpfhy-mo-uvnrmo pain and are often prescribed following a [...] struggling with (more content not included)... Normal [facility] HEMATOLOGYOrdered By: SYSTEM SYSTEM on 01-27-2022 Basophils/100 WBC (Bld) 1.1 % Normal 0.0 - 2.0 % [facility] HemeAutoSS Basophils/Leukocytes Auto (Bld) [Pure # fraction] 0.1 E9/L Normal 0.0 - 0.2 E9/L [facility] HemeAutoSS Eosinophils/100 WBC (Bld) 2.7 % Normal 0.0 - 8.0 % [facility] [...] 4.0 E12/L Low 4.3 - 5.9 E12/L [facility] HemeAutoSS WBC corrected for nucl RBC Auto (Bld) [#/Vol] 12.5 E9/L High 4.0 - 11.0 E9/L [facility] HemeAutoSS Monitor Recordon 01-27-2022 Monitor Record [id number] :127 Normal [facility] SEROLOGYOrdered By: Cheryl brown on 01-27-2022 HCG.beta subunit (U) [Moles/Vol] Negative Normal [facility] Man Sero U BetaHcg Qualon 01-27-2022 HCG.beta subunit (U) [Moles/Vol] Negative Normal [facility] Comment on above: Performed By: #### 2 [id number], [id number], [id number] ####[facility] [address] [place] [address] UA With Cult Reflexon 2021 Bacteria LM Ql (Urine sed) 3+ /HPF Abnormal Trace [facility] Comment on above: Performed By: #### 2 [id number], [id number], [id number] ####[facility] [address] [place] [address] Epithelial cells.squamous LM.HPF (Urine sed) [#/Area] 5-8 Normal 0-2 [facility] Comment on above: Performed By: #### 2 [id number], [id number], [id number] ####[facility] [address] [place] [address] [place].plasma/Lithiu m.RBC (Bld) [Mass ratio] 0-3 Normal 0-3 [facility] Comment on above: Performed By: #### 2 [id number], [id number], [id number] ####[facility] [address] [place] [address] WBC LM.HPF (Urine sed) [#/Area] 16-25 Abnormal 0-5 [facility] Comment on above: Performed By: #### 2 [id number], [id number], [id number] ####[facility] [address] [place] [address] Bilirubin Ql (U) Negative Normal Negative [facility] Comment on above: Performed By: #### 2 [id number], [id number], [id number] ####[facility] [address] [place] [address] Clarity (U) CLEAR Normal Clear [facility] Comment on above: Performed By: #### 2 [id number], [id number], [id number] ####[address] [address] Color (U) YELLOW Normal Yellow [facility] Comment on above: Performed By: #### 2 [id number], [id number], [id number] ####[address] [address] Glucose Test strip (U) [Mass/Vol] Negative Normal Negative [facility] Comment on above: Performed By: #### 2 [id number], [id number], [id number] ####[address] [address] Hemoglobin Ql (U) Negative Normal Negative [facility] Comment on above: Performed By: #### 2 [id number], [id number], [id number] ####[address] [address] Ketones (U) [Mass/Vol] Negative Normal Negative [facility] Comment on above: Performed By: #### 2 [id number], [id number], [id number] ####[address] [address] Nitrite Ql (U) Positive Abnormal Negative [facility] Comment on above: Performed By: #### 2 [id number], [id number], [id number] ####[address] [address] pH (U) 8.0 [pH] Invalid Interpretation Code 5.0-9.0 [facility] Comment on above: Performed By: #### 2 [id number], [id number], [id number] ####[facility] [place] [address] Protein (U) [Mass/Vol] Negative Normal Negative [facility] Comment on above: Performed By: #### 2 [id number], [id number], [id number] ####[facility] [address] [place] [address] Specific gravity (U) [Rel density] 1.015 Invalid Interpretation Code 1.005-1.030 [facility] Comment on above: Performed By: #### 2 [id number], [id number], [id number] ####[place] [id number] Type of Urine collection method Random Urine Normal [facility] Comment on above: Performed By: #### 2 [id number], 84198764, 4247148 ####[place] [address] Urobilinogen Qn (U) 1.0 {Polina'U}/dL Normal 0.0-1.0 [facility] Comment on above: Performed By: #### 2 7356859, 50593512, 9221300 ####[place] [address] WBC Auto Ql (U) Negative Normal Negative [facility] Comment on above: Performed By: #### 2 3456878, [id number], 5088408 ####[place] [address] URINALYSISOrdered By: Cheryl Hills on 01-27-2022 Bacteria LM Ql (Urine sed) 3+ /HPF Invalid Interpretation Code Trace/HPF [facility] UA Auto SS Bilirubin Ql (U) Negative (01/27/22 5:52 PM) Normal Negative [facility] UA Auto SS Clarity (U) Clear (01/27/22 5:52 PM) Normal Clear [facility] UA Auto SS Color (U) Yellow (01/27/22 5:52 PM) Normal Yellow [facility] UA Auto SS Epithelial cells.squamous LM.HPF (Urine sed) [#/Area] 5-8 /HPF Normal 0-2/HPF [facility] UA Aut o SS Glucose Test strip (U) [Mass/Vol] Negative (01/27/22 5:52 PM) Normal Negative [facility] UA Auto SS Hemoglobin Ql (U) Negative (01/27/22 5:52 PM) Normal Negative [facility] UA Auto SS Ketones (U) [Mass/Vol] Negative (01/27/22 5:52 PM) Normal Negative [facility] UA Auto SS [place].plasma/Lithiu m.RBC (Bld) [Mass ratio] 0-3 /HPF Normal 0-3/HPF [facility] UA Auto SS Nitrite Ql (U) Positive *ABN* (01/27/22 5:52 PM) Invalid Interpretation Code Negative [facility]A Auto SS pH (U) 8.0 *NA* (01/27/22 5:52 PM) Invalid Interpretation Code 5.0 - 9.0 [facility] UA Auto SS Protein (U) [Mass/Vol] Negative (01/27/22 5:52 PM) Normal Negative [facility] UA Auto SS Specific gravity (U) [Rel density] 1.015 *NA* (01/27/22 5:52 PM) Invalid Interpretation Code 1.005 - 1.030 [facility] UA Auto SS UA Spec Desc Random Urine (01/27/22 5:52 PM) Normal [facility] UA Auto SS Urobilinogen Qn (U) 1.0938957 {Polina'U}/dL Normal 0.0 - 1.0 EU/dL [facility] UA Auto SS WBC Auto Ql (U) Negative (01/27/22 5:52 PM) Normal Negative [facility] UA Auto SS WBC LM.HPF (Urine sed) [#/Area] 16-25 /HPF Invalid Interpretation Code 0-5/HPF [facility] UA Auto SS eGFRon 01-27-2022 GFR/1.73 sq M.predicted among blacks MDRD (S/P/Bld) [Vol rate/Area] mL/min/{1.73_m2} Normal >=59 [facility] Comment on above: Order Comment: Order added by Discern Expert. Result Comment: eGFR is race adjusted. AA=. Performed By: #### 2 382390, [id number], 2112860, 2433098 ####[facility] [address] [place] [address] GFR/1.73 sq M.predicted among non-blacks MDRD (S/P/Bld) [Vol rate/Area] mL/min/{1.73_m2} Normal >=59 [facility] Comment on above: Order Comment: Order added by Discern Expert. Result Comment: Mushroom Cutter ammon kidney disease could be indicated at eGFR's of less than 60 mL/min/1.73m2. Kidney failure is indicated at less than 15 mL/min/1.73m2. Performed By: #### 2 634897, 25327734, 4773443, 4837797 ####[facility] [address] [place] [address] Coding Summary.on 01-04-2022 Coding Summary. CD:[id number] Gh0b Ww+PGhlYWQ+AF7OCLJfF51qj IEvuQ7IL4iFJZ4LCPCZXHKCL W0RRE1goJR9HZllQ4CzebMd AfignDTjRZ33OAl9FBY7xRfd LWqxwZ6snSHbE3l6UbMpYP38 pE12PXvmHNZkDmF7BiXptcyp bWFy A0ncGfQsaWOkQxh+PHRhYmxl IHdpZHRoPScxMDAlJyBzdHls YV4yQa7qOAOhELDlmEtsgAXx OiBj x4inNJQgCHxnNP5qdRsbD3Yt eUC2GAZfs7k5Ne88lST+PHRk WMJ2wLkfVTfon318JdXqk4es IDM3 kYJrALrqLOI5O87ai6P3ELRz KXQnFZQ2bJR9oI0nqPyajsau O6BhxXXlQnV2CHB3vAWarL0v bGln bdvpnF7kTdw+E19YOT2WHSDR PK1WEwb1F2XkEmlknUK+PC90 XFKpMA25wJGlcWThe2dnnWw6 JzEw OISzPNV3fDveLKmkb1NwILRn B98vgRHpq8W6YNDlvBoerFMd ZfNajFC6xZ4kMPhscbaat1ji dzsn Adard9vkvd04jF20Z86vWAqf LBFnWCE2KSFrFURqkWmeqx1d sJ8sJp2+XVgun7hky2anyRt0 IjIw VETyqrQegQemLDN4a4FkOm51 K7WntSkku4AtKji3yl29qIOw c2T9jNS9TSguMADgsU2nCJcb ZnQ6 VOXtPuNfcT21vKWaPNvcAe7d cQoaoDbxOW9vPIMfzuloOLNc gC2jSPAasRXmmIiwDE4wKLQs bjtm d776ErSdJUT1OZVwnUBeX4La tP9dAcNpQCYzMAHxZ6IucOZd LCdyW940RAdcLyR8ITQlnfHq Y2Fs IXSbgDvgDiW3v9H0Iq0Vz8Bw dnklYVA6WRdfMOB3ZwLqUcDy LxS8W0PtUub6KOOlnDxtYJ5e J3Bh WUYekjgsputggOG3QXSnJICy wL90aXYwSPskQx8er3M3b519 FKSrENZmtG70Hm9aoGpuODAv dCBU rW5yzafqh7tzivvaWgSaQHQe FCx5GLe8WMRenLiyLgVsLOY3 QkA5BQC8fHBvnL0enBwocadb dG9w Oyc+X62zyK9gATY6EWP6qmpv UMFbipWtKZ66ZC57P2TuNmji dGFibGU+MULbxdAsgWsoMU4m YmFj y4qrw5WnXOzkK6UaWVMaDYak Ehz5VOHoTDK3sZK9nX2wKMJq GSpoc5A9mWN6Y8DabjQrek1j b2xs RUMbZEilK32atVOdo0L3CKRf tRC9YALdgKoxXeQaxT68Brq+ BHIzyKgpp8XhSnrqr7smi4bm dGg9 NnHtJZUljgZpxEogVRU5s8Pj Bc32R84eUCbgKCEhVUJxXPRi RAPugPhksc8ekB1uXi2+PGNv bCB3 hVI1dN9fXKRkNtR6IJeqD380 RoInyETsAchtd4eab8eelQn7 BwFjJUFfnlQufNebLFZ3h5Ds Lz48 D29aQSggEHVqVBSlXUBjHKXt gCtcoy5scV6oDe9+WL3ly9py ga59dX59hXO+WGBxHWP9mVbq PSdw SFWwtW9mAIltHlX1UHZqDzFe tN59pJCtBKmqHs6axZwlmHet IW4wYEAbtkxzu092EdPpa0gc IDEw zLJwNSpkCCA7U77lx2B5IVYd BMKtTAT0iXT7fX3wzAytgxyp bGVmdDsgdmVydGljYWwtYWxp Z246 IHRvcDsnPlBhdGllbnQgTmFt WWa8Y9RbWsy6GUZoaKpoFA3s bCNiXKilUk2gvLqoqRmwZZ8c NTBp ygjjg925GrWgk6xgMVQigSCe DQfpCZT7Q60kz0Q4DNRrXOHi QIG8hPN1vA3qlBipdjraoKNz dDsg lnGifUdnBQgoQVhkQ242ROLj yEjlCpBvjkElGCNcwDC8ZY25 EN31sGMza9Y1nUG7X6SbDCGw bmct ejmvxID2LXRvSXUqbS46Df1d bGtzZj5fVINgXCZ0SCFwnNWa M3XzjC3sKeAeCIByFRGcG2Mx eHQt RIgwR207JFlnHoO7OEAxlgMk F6ZjPDNrwAklKnL8p8D4Ig4A V5R4RO76IF73vENil0D5dEJ0 J3Bh LNYlfzamfopbhFK9GBNdMJKx kQ22Ke5hzKzvMy3fKKJdZBK5 RGCdzOZgF5LxfS9aWjYwUAKr MDAw X7EawTWwPAimF049AYeaElV3 YKCgmcHeI4YhDYUnuJerOwG0 z1B0Ss0SGNi6HS88KO26zMSb c3R5 hJA0Y5LbGNNyygtvvpainCC7 QSNzEDFskB63Jg8biUlaCy0s PELmQUZ1HNNsbKMmB1JcwI6x OiAj ZKWpCJUlY1RaxXZqZRbvP519 NNidBiZ7EEKfxjPcI2SzTUAd zMtnZoY0j0L5Wt4WXZXhMK36 IFR5 kFB0DP64SY78U6RcOubgfIVf bGU+PHRhYmxlIHdpZHRoPScx VADzPpFeeCmcTJ3wYa7kERMy LWNv kKmgpFHtMtRmr2lpOSMpXWxc AT4bdCkdR8XbhVX2HRVri8s1 Sr15A82oK7JmnFC+PGNvbCB3 aWR0 lF1wZcWaWpP6TPahZ769KbKj cLHeZxure7iar5xzhTn3UyC9 YQXwzkWccIzmUEM5n1XwKd46 Y29s IHdpZHRoPSIxNSUiIHZhbGln wt3czN5qGs0+VTZjeUH7xUN8 rG5bSqIyHoU5TMvdX337KyUh cCIv Xusmp7mri2jkcAm4OsMcTNOi hgZjgOrqWTF0q7BmHx83Y4Aq dIdqs4YtVyf2gy04bHCdg0D3 bGU9 Z3IuBBMdaqdbxDRayXoqCJ5x ZJXusayqFHEuiG7gGGXhJ8t8 IbGeWcM8HVrtT3HxwfJ6ZLTu cHQg ZJzuHAG5T61fn4U9UQGwJYAn NTI7iCK2dD5fmEuvwgxvdEFt qLovqqGhpCbmIEvqLKlqU906 IHRv eCovPMRxrR6fATRrwVAzsVtw VZ6gBTEhfwtmAbnQC30LPSLk XAYSNGEZAW43EP76bJPto8N9 bGU9 T7IlQKFlixxceqtxaVS2LIIz NNNcrN36pYHbYAewNt7bq0M8 t191JQVmKXIorT28Vr9myAtu MTBw wADGzU6supyqi0zfjoevNzBi ZBAtANp6PHg5PJYegQluIyRw JDM3SpP4MPS8fMOljH6saQhm bjog gW4eTnq+MDgvMjkvMjAwMDwv dGQ+QSPxOTQ1pThlANfhVVEu oW8mPMMyF7h2JaGpQdI1THov O3Bh TNJcqmqqVl51wI6cXoGuOsD0 AWfmX8EovrC3NVHotKLeOMgc FFK0Y18zk7H7UABzKHIpSZH1 dGV4 wW4wqDnltqafbSSrmFgpntEc oIxaNHxbXDofT746GAWcqYnp ZnXkKElnSTExMX00QO32rGAn c3R5 pUZ1G2LySGMvvfngzkgsvBD3 JMKyBDQtoE79dXGoBTegSp9n i7D4n489JQEpMMYlnZ98Ok6k dDog KWOnbUKOaT4gghuyt5zmfkyj XnJdZVIeIKr0ANw5MTKlnAop UjNrARM2UkF8LNV9cKDdzS0e bGln hcryjD0vZqs+AmRpFCphZC01 AD46wMTel1W6aYL5U3ZxHTRo usavfvjxdBC6ADWqHIZqnA90 cGFk FDpaOu8ow8K3x327FQOhCNLv vZ80Tb9lkTotKKRxtHQVuL4k xgwnh0ppdegqNgAvTUDdPMm5 ZXh0 JLHglUphJyAjWPT0KfQ9TPG1 kRSroO0yzUqbtomrrC0sObi+ YP7skckrpaK8FE19WJ09Z8Gq Pjwv dGFibGU+PHRhYmxlIHdpZHRo RLygDOJzXqOnyWfoSE2iJg3f QKLiYJYlhVfyvQAyQdXbd6sb YXBz XWqmYP5enMycR4IgjMU2JEAy i1s5Sl97K09jB7SwiGT+PGNv wVH3dWP7pY5fYtCgFsE2KStc Z249 QeJzxBQePqttt6iay3rxzIu0 EpXwTRIjosDlkYhyTHR3u6Hm Uz49F47cJJatHEGoKPRbTSWh IHZh zRzzlj9bkG1mMt7+PGNvbCB3 qKI2vL5qIgOqSdB7MFfvP897 SaPccPIeFknmN95aP1OtcKH+ PHRy Own2MFWxyHueOY0hdOKsJCtn Zw0fLPE2TkTmNdTeCCzhD3Hm XGGqbcnyffzyyER0RNNjRQJi aW47 Bv2aaDcjUl1jIMEyIRA3YHUb cHNmR1CamE5yLaRkOIIdWZKd R8ObaTAfMGogU880LQjlQbJ6 IHZl hrDxJ9HqNIRytIlwEkK0z2U6 Hc2NqFyshVOaSP2oEmQxLDy6 L0UbMpr8JENcpKwaOZ6yaAQn ZGlu Od7igRkpiGpiUE2dSIZxzshk f071BhVso0mkPQLvbPBxJDwo ESX9M04ip4F2LQCtPGToLBH9 dGV4 hD8pcSejwogthBFvzDwdgmYj nBfeRPsaYZixL792VHTeeGjx HgVQRgr3B4UyTsc7HQHqmUvl ZT0n vOUlTYphUt7vjIgmtUjzKP4m JCGehyukm582AuFil4pvHWGo hYIvUJawCYA8P12kx4S5IYZx MDAw EMT8eKU9rE9xiCeacxikkENf nVxsmxUdvLpoJYpqZWjaY537 YXArbJayUv5THpb4Y8SjHid7 ZCBz kNaxSV3ikRLfNMyyPn3fzMqa mJvcCO7iVVQbxqgyd476UxBp r5vvLCBfrTDnHCprLHU7E24z b3I6 ZMZcRQXvLIW6iBV5yB3ooJat bjogbGVmdDsgdmVydGljYWwt SAmeK870DSQqnQdoWdDqaAAb Ojwv dGQ+UD21hr96X0CzRtjoVwl1 VCOvFHR9pHZ4lQ4aPGRnFRwv y8C5aGW3X2BfmnNczd3ty3uc YXBz ZTog (more content not included)... Normal [facility] Discharge Instructionson Discharge Instructions [id number] :127 Normal [facility] Auto Diffon 12-31-2021 Basophils/100 WBC (Bld) 1.0 % Normal 0.0-2.0 [facility] Comment on above: Order Comment: Order Added by Discern Expert. Performed By: #### 2 813146, 8997691, 7908620, 41397209, 5175194, 47383597, 23504470 ####[facility] [address] [place] [address] Basophils/Leukocytes Auto (Bld) [Pure # fraction] 0.1 E9/L Normal 0.0-0.2 [facility] Comment on above: Order Comment: Order Added by Discern Expert. Performed By: #### 2 878328, 0287119, 7150953, 06181217, 4372803, 42469877, 33878492 ####[facility] [address] [place] [address] Eosinophils/100 WBC (Bld) 4.0 % Normal 0.0-8.0 [facility] Comment on above: Order Comment: Order Added by Discern Expert. Performed By: #### 2 410199, 2688588, 5541890, 00965957, 4601263, 02059093, 70149455 ####[facility] [address] [place] [address] Eosinophils/Leukocyte s Auto (Bld) [Pure # fraction] 0.4 E9/L Normal 0.0-0.5 [facility] Comment on above: Order Comment: Order Added by Discern Expert. Performed By: #### 2 359048, 6575893, 6928545, 76323353, 2191284, 10707212, 60147552 ####[place] [address] [place] [address] Lymphocytes/100 WBC (Bld) 35.3 % Normal 14.0-50.0 [facility] Comment on above: Order Comment: Order Added by Discern Expert. Performed By: #### 2 850733, 0910010, 4938613, 38700861, 4267837, 38038273, 22407087 ####[place] [address] [place] [address] Lymphocytes/Leukocyte s Auto (Bld) [Pure # fraction] 3.8 E9/L Normal 1.0-4.0 [facility] Comment on above: Order Comment: Order Added by Discern Expert. Performed By: #### 2 000117, 8381609, 7166367, 12711737, 6890039, 99791710, 39377892 ####[place] [address] [place] [address] Monocytes/100 WBC (Bld) 9.3 % Normal 4.0-14.0 [facility] Comment on above: Order Comment: Order Added by Mckay Expert. Performed By: #### 2 324613, 8472231, 3680268, 49213881, 7557758, 42414367, 46699391 ####[place] [address] [place] [address] Monocytes/Leukocytes Auto (Bld) [Pure # fraction] 1.0 E9/L Normal 0.2-1.0 [facility] Comment on above: Order Comment: Order Added by Discern Expert. Performed By: #### 2 992054, 7184638, 3569486, 32571838, 5407031, 71180522, 97577751 ####[place] [address] [place] [address] Neutrophils/100 WBC (Bld) 50.4 % Normal 36.0-75.0 [facility] Comment on above: Order Comment: Order Added by Discern Expert. Performed By: #### 2 902031, 6623587, 5028745, 12397341, 6497879, 60762559, 79684536 ####[address] [address] Neutrophils/Leukocyte s Auto (Bld) [Pure # fraction] 5.4 E9/L Normal 2.0-7.5 [facility] Comment on above: Order Comment: Order Added by Discern Expert. Performed By: #### 2 860480, 8345043, 2990094, 29568652, 6778905, 72845401, 96340472 ####[place] [address] [place] [address] B hCG Qualon 12-31-2021 Beta hCG Ql Negative Normal [facility] Comment on above: Performed By: #### 2 510918, 4228733, 5567055, 88771279, 0479074, 59790471, 16522305 ####[facility] [address] [place] [address] BMPon 12-31-2021 Creatinine [Mass/Vol] 0.8 mg/dL Normal 0.5-1.3 [facility] Comment on above: Performed By: #### 2 030848, 5391498, 5902039, 31467878, 1064616, 54444644, 01588186 ####[address] [address] Urea nitrogen [Mass/Vol] 14 mg/dL Normal 5-21 [facility] Comment on above: Performed By: #### 2 261572, 6164959, 5516771, 48335429, 5906520, 05821579, 70400710 ####[facility] [address] [place] [address] Urea nitrogen/Creatinine [Mass ratio] 18 No Units Normal 10-20 [facility] Comment on above: Performed By: #### 2 500271, 2087619, 1478733, 35162776, 6832511, 72812731, 65705425 ####[facility] [address] [address] Anion gap [Moles/Vol] 11 mmol/L Normal 6-16 [facility] Comment on above: Performed By: #### 2 126619, 6996794, 3472864, 83629591, 9755929, 40422583, 73012228 ####[facility] [address] [place] [address] Calcium [Mass/Vol] 9.5 mg/dL Normal 8.9-11.1 [facility] Comment on above: Performed By: #### 2 509569, 1287427, 4890432, 19706183, 7469677, 81393917, 30569701 ####[facility] [address] [place] [address] Chloride [Moles/Vol] 105 mmol/L Normal 101-111 [facility] Comment on above: Performed By: #### 2 088573, 0911710, 2242234, 69752655, 0128610, 41276717, 37972769 ####[facility] [address] [place] [address] CO2 [Moles/Vol] 26 mmol/L Normal 21-31 [facility] Comment on above: Performed By: #### 2 213394, 3011706, 1204229, 14140263, 2396532, 73330603, 44756936 ####[facility] [address] [place] [address] Glucose [Mass/Vol] 81 mg/dL Normal 55-199 [facility] Comment on above: Result Comment: If t his glucose result represents a fasting glucose, interpretation should refer to the following reference range: 55-99 mg/dL Performed By: #### 2 808759, 2211520, 1030952, 39843223, 6762272, 04372925, 47854214 ####[facility] [address] [place] [address] Potassium [Moles/Vol] 3.7 mmol/L Normal 3.5-5.3 [facility] Comment on above: Performed By: #### 2 752597, 0391671, 9552139, 96939530, 3963004, 39701680, 69002192 ####[facility] [address] [place] [address] Sodium [Moles/Vol] 138 mmol/L Normal 135-145 [facility] Comment on above: Performed By: #### 2 504617, 9765035, 7009132, 54282116, 8359452, 02402896, 87706176 ####[facility] [address] [place] [address] CBC w/ Auto Diffon Erythrocyte distribution width (RBC) [Ratio] 13.7 % Normal 10.9-14.2 [facility] Comment on above: Performed By: #### 2 547161, 3642589, 8575199, 11993415, 5145585, 73677564, 64703130 ####[facility] [address] [place] [address] Hematocrit (Bld) [Volume fraction] 37.2 % Normal 34.0-46.0 [facility] Comment on above: Performed By: #### 2 517104, 9179348, 9427870, 38230207, 0920662, 80239612, 82239276 ####[facility] [address] [place] [address] Hemoglobin (Bld) [Mass/Vol] 12.4 g/dL Normal 12.0-16.0 [facility] Comment on above: Performed By: #### 2 826800, 8242773, 4143915, 67825818, 0411395, 19533833, 85038553 ####[facility] [address] [place] [address] MCH (RBC) [Entitic mass] 29.3 pg Normal 27.0-34.0 [facility] Comment on above: Performed By: #### 2 313398, 8399113, 9092734, 56307591, 0112576, 25401524, 33874937 ####[facility] [address] [place] [address] MCHC (RBC) [Mass/Vol] 33.4 g/dL Normal 31.4-36.0 [facility] Comment on above: Performed By: #### 2 696719, 8031000, 7208124, 05974908, 5711447, 80445401, 69555791 ####[address] [address] MCV (RBC) [Entitic vol] 87.8 fL Normal 80.0-100.0 [facility] Comment on above: Performed By: #### 2 523757, 3667431, 2746301, 47827606, 4630406, 68213441, 85073044 ####[address] [address] Platelet mean volume (Bld) [Entitic vol] 9.3 fL Normal 6.4-10.8 [facility] Comment on above: Performed By: #### 2 314163, 3171877, 6915413, 30026325, 6931769, 29274599, 26970917 ####[address] [address] Platelets (Bld) [#/Vol] 339.0 E9/L Normal 150.0-500.0 [facility] Comment on above: Performed By: #### 2 607230, 6331373, 0985225, 03761866, 0068247, 79645907, 87816640 ####[facility] [address] [place] [address] RBC (Bld) [#/Vol] 4.2 E12/L Low 4.3-5.9 [facility] Comment on above: Performed By: #### 2 467851, 6793021, 8348008, 74736304, 7641733, 13137596, 93232172 ####[facility] [address] [place] [address] WBC corrected for nucl RBC Auto (Bld) [#/Vol] 10.8 E9/L Normal 4.0-11.0 [facility] Comment on above: Performed By: #### 2 255463, 0420801, 3504956, 46556600, 2854715, 75669571, 31452472 ####[facility] [address] [place] [address] CHEMISTRYOrdered By: SYSTEM SYSTEM on 12-31-2021 Albumin [...] 0.8 mg/dL Normal 0.5 - 1.3 mg/dL [facility] Remisol GFR/1.73 sq M.predicted among blacks MDRD (S/P/Bld) [Vol rate/Area] mL/min/1.73 m2 Normal >=59mL/min/1 .73 m2 [facility] Chem S GFR/1.73 sq M.predicted among non-blacks MDRD (S/P/Bld) [Vol rate/Area] mL/min/1.73 m2 Normal >=59mL/min/1 .73 m2 [facility] S Globulin (S) [Mass/Vol] 3.2 g/dL Normal 1.4 - 4.0 gm/dL [facility]isol Glucose [Mass/Vol] 81 mg/dL Normal 55 - 199 mg/dL [facility] Potassium [Moles/Vol] 3.7 mmol/L Normal 3.5 - 5.3 mmol/L [facility] Protein [Mass/Vol] 7.4 g/dL Normal 6.0 - 7.8 gm/dL [facility] Sodium [Moles/Vol] 138 mmol/L Normal 135 - 145 mmol/L [facility] Troponin I.cardiac [Mass/Vol] pg/mL Low 10.10 - 27.10 pg/mL [facility] Urea nitrogen [Mass/Vol] 14 mg/dL Normal 5 - 21 mg/dL [facility] Urea nitrogen/Creatinine [Mass ratio] 18 mg/mg Normal 10 - 20 [facility] Consent for Treatmenton 12-22 Consent for Treatment [id number]: 127 Normal [facility] ED Clinical Summaryon 2021 ED Clinical Summary (Inserted Image. Kristine ble to display) [address] [place] [address] ED Clinical Summary Person Information Name: AIMEE REDDY/NewKrish Age: 21 Years : 2000 Sex: Female Language: Japanese PCP: Britt Aguilar MD Marital Status: Single [...] 12/31/2021 19:45:50 12/31/2021 19:45:50 12/31/2021 19:45:50 ADDRESS: [address] [place] [id number] [facility] DOC NOTES: MEDICAL INFORMATION: Prescriptions Given: PATIENT EDUCATION INFORMATION: Instructions: Seizure, Adult, Elwb-pi-Fggz Follow up: With: Address: When: Tye Arora [address] [place] [address] Business (1) In 3 days 01/03/2022 With: Address: When: Britt Aguilar [address] [place] [address] Business (1) In 3 days DIAGNOSIS: Recurrent episodes of unresponsiveness Normal [facility] ED Note-Physicianon 01-01-20 ED Note-Physician Basic [...] in nature and 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 where 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 had a monitor and other [...] Arora In 3 days 01/03/2022 EDT [address] [place] [address]- Business (1) Additional Instructions: Britt Aguilar In [address] [place] [address]- Business (1) Additional Instructions: Patient Education Seizure, Adult, Qgfv-vu-Mley Problem List/Past Medical History Ongoing No qualifying [...] 18:51:00) Lymph Auto: 35.3 % (12/31/21 18:51:00) [place] Auto: 9.3 % (12/31/21 18:51:00) Eos Auto: 4 % (12/31/21 18:51:00) Basophil Auto: 1 % (12/31/21 18:51:00) Neutro Absolute: 5.4 E9/L (12/31/21 18:51:00) Lymph Absolute: 3.8 E9/L (12/31/21 18:51:00) [place] Absolute: 1 E9/L (12/31/21 18:51:00) Eos Absolute: [...] (12/31/21 18 (more content not included)... Normal [facility] Comment on above: Result Comment: Elec tronically [...] these instructions at home: Medicines ? Take bokh-xou-vafgrfu and prescription medicines only as told by [...] [place] ask your local DMV (department of Share[employer]) when you can drive. ? Get plenty [...] medicine f (more content not included)... Normal [facility] ED Patient Summaryon 022 ED Patient Summary (Inserted Image. Kristine ble to display) [address] [address] Patient Discharge Instructions Person Information Name: AIMEE REDDY Age: 21 Years Arrival Date: 12/31/2021 18:32:31 Discharge Diagnosis: Recurrent episodes of unresponsiveness Primary Care Physician: Britt Aguilar MD Provider Information Primary Provider: Ji Grimes DO Advanced Tax Examiner:None The exam and treatment you received in the Emergency Department were for an urgent problem and are not intended as complete care. It is important that you follow up with a doctor, nurse practitioner, or physician?s assistant sales manager for ongoing care. If your symptoms become worse or you do not improve as expected and you are unable to reach your usual health care provider, you should return to the Emergency Department. We are available 24 hours a day. AIMEE REDDY has been given the following list of patient education materials, prescriptions and follow-up instructions: Follow-up Instructions: With: Address: When: Tye Arora [address] [place] [address] [place] [address] Business (1) In 3 days 01/03/2022 With: Address: When: Britt Agu[place] [address] [employer] (1) In 3 days In the event that this physician does not participate in your insurance network, please consult with your insurance company to find a nearby participating provider. Patient Education Materials: Seizure, Adult, Rgnt-ml-Xjmy A MESSAGE TO ALL PATIENTS REGARDING OPIOIDS PRESCRIPTION OPIOIDS: WHAT YOU NEED TO KNOW Prescription opioids can be used to help relieve bdmhctbn-jb-wsonva pain and are often prescribed following a [...] tell your (more content not included)... Normal [facility] HEMATOLOGYOrdered By: SYSTEM SYSTEM on 12-31-2021 [...] 5.4 E9/L Normal 2.0 - 7.5 E9/L FT [facility] HEMATOLOGYOrdered By: Donnie Lim on 12-31-2021 Erythrocyte distribution width (RBC) [Ratio] 13.7 % Normal 10.9 - 14.2 % FT [facility] Hematocrit (Bld) [Volume fraction] 37.2 % Normal 34.0 - 46.0 % FT [facility] Hemoglobin (Bld) [Mass/Vol] 12.4 g/dL Normal 12.0 - 16.0 gm/dL FT [facility] MCH (RBC) [Entitic mass] 29.3 pg Normal 27.0 - 34.0 pg FT [facility] MCHC (RBC) [Mass/Vol] 33.4 g/dL Normal 31.4 - 36.0 gm/dL FT [facility] MCV (RBC) [Entitic vol] 87.8 fL Normal 80.0 - 100.0 fL FT [facility] Platelet mean volume (Bld) [Entitic vol] 9.3 fL Normal 6.4 - 10.8 fL FT [facility] Platelets (Bld) [#/Vol] 339.0 E9/L Normal 150.0 - 500.0 E9/L FT [facility] RBC (Bld) [#/Vol] 4.2 E12/L Low 4.3 - 5.9 E12/L FT [facility] WBC corrected for nucl RBC Auto (Bld) [#/Vol] 10.8 E9/L Normal 4.0 - 11.0 E9/L FT [facility] Hep Func Panelon 12-31-2021 Bilirubin.indirect [Mass or moles/Vol] UTC Abnormal 0.1-0.9 [facility] Comment on above: Result Comment: Resu lt verified by [employer]. Performed result UTC (Unable to Calculate) was sent as an Alpha code due the inability to calculate a valid numeric value. Performed By: #### 2 [id number], [id number], [id number], [id number], [id number], [id number], [id number] ####[facility] [address] [place] [address] Albumin [Mass/Vol] 4.2 g/dL Normal 3.3-5.0 [facility] Comment on above: Performed By: #### 2 [id number], [id number], [id number], [id number], [id number], [id number], [id number] ####[facility] [address] [place] [address] Albumin/Globulin (S) [Mass conc ratio] 1.3 Normal 1.1-2.2 [facility] Comment on above: Performed By: #### 2 [id number], [id number], [id number], [id number], [id number], [id number], [id number] ####[facility] [address] [place] [address] ALP [Catalytic activity/Vol] 59 Int._Unit/L Normal 21-98 [facility] Comment on above: Performed By: #### 2 324689, [id number], [id number], [id number], [id number], [id number], [id number] ####[address] [address] ALT No additional P-5'-P [Catalytic activity/Vol] 12 Int._Unit/L Normal 6-46 [facility] Comment on above: Performed By: #### 2 [id number], [id number], [id number], [id number], [id number], [id number], [id number] ####[address] [address] AST [Catalytic activity/Vol] 16 Int._Unit/L Normal 5-43 [facility] Comment on above: Performed By: #### 2 [id number], 5251167, 0348147, 21331694, 4968163, [id number], [id number] ####[facility] [address] [place] [address] Bilirubin [Mass/Vol] 0.5 mg/dL Normal 0.0-1.1 [facility] Comment on above: Performed By: #### 2 850525, 7212466, 0731551, 79100616, 5892711, 91218999, [id number] ####[facility] [address] [place] [address] Bilirubin.direct [Mass/Vol] mg/dL Normal 0.1-0.4 [facility] Comment on above: Performed By: #### 2 520065, 9218614, 9833400, 49286730, 6293730, 91433881, 87745502 ####[facility] [address] [place] [address] Globulin (S) [Mass/Vol] 3.2 g/dL Normal 1.4-4.0 [facility] Comment on above: Performed By: #### 2 656027, 3721848, 6526626, 69867524, 9520701, 20115879, 29642671 ####[facility] [address] [place] [address] Protein [Mass/Vol] 7.4 g/dL Normal 6.0-7.8 [facility] Comment on above: Performed By: #### 2 218868, 2858632, 2048932, 35376030, 1894824, 09181052, 22629632 ####[facility] [address] [place] [address] SEROLOGYOrdered By: Lisbeth Corrigan lps on 12-31-2021 Beta hCG Ql Negative (12/31/21 6:51 PM) Normal [facility] Sero Troponin 0 Hr.on 12-31-2021 Troponin I.cardiac [Mass/Vol] ng/mL Low 10.10-27.10 [facility] Comment on above: Result Comment: The 95% CI (Confidence Interval) PPV (Positive Predictive Value) for myocardial infarction in females is 38 pg/mL, in males 51 pg/mL. The results should be used in conjunction with clinical conditions of myocardial infarction. (Access High Sensitivity Troponin I Instructions For Use, Rohini Gómez, January 2018) Performed By: #### 2 262432, 3320968, 2886891, 65211924, 3739182, 21972987, 84636926 ####[facility] [address] [place] [address] UA With Cult Reflexon 2021 Bilirubin Ql (U) Negative Normal Negative [facility] Comment on above: Performed By: #### 1 [id number] ####[facility] [address] [place] [address] Clarity (U) CLEAR Normal Clear [facility] Comment on above: Performed By: #### 1 [id number] ####[facility] [address] [facility] [place] [address] Color (U) YELLOW Normal Yellow [facility] Comment on above: Performed By: #### 1 [id number] ####[facility] [address] [place] [address] Epithelial cells.squamous LM.HPF (Urine sed) [#/Area] 0-2 Normal 0-2 [facility] Comment on above: Performed By: #### 1 [id number] ####[facility] [address] [place] [address] Glucose Test strip (U) [Mass/Vol] Negative Normal Negative [facility] Comment on above: Performed By: #### 1 [id number] ####[facility] [address] [facility] [place] [address] Hemoglobin Ql (U) Negative Normal Negative [facility] Comment on above: Performed By: #### 1 9212993 ####[facility] [address] [facility] [address] Ketones (U) [Mass/Vol] Negative Normal Negative [facility] Comment on above: Performed By: #### 1 8612811 ####[facility] [address] [place] [address] [place].plasma/Lithiu m.RBC (Bld) [Mass ratio] 0-3 Normal 0-3 [facility] Comment on above: Performed By: #### 1 [id number] ####[facility] [address] [place] [address] Nitrite Ql (U) Negative Normal Negative [facility] Comment on above: Performed By: #### 1 2258476 ####[facility] [address] [place] [address] pH (U) 6.0 [pH] Invalid Interpretation Code 5.0-9.0 [facility] Comment on above: Performed By: #### 1 [id number] ####[place] [address] Protein (U) [Mass/Vol] Negative Normal Negative [facility] Comment on above: Performed By: #### 1 [id number] ####[place] [address]16857 Specific gravity (U) [Rel density] 1.015 Invalid Interpretation Code 1.005-1.030 [facility] Comment on above: Performed By: #### 1 [id number] ####[place] [address] Type of Urine collection method Clean Catch Normal [facility] Comment on above: Performed By: #### 1 8034088 ####[place] 2716857 Urobilinogen Qn (U) 0.2 {Polina'U}/dL Normal 0.0-1.0 [facility] Comment on above: Performed By: #### 1 9824068 ####[place] 2716857 WBC Auto Ql (U) Negative Normal Negative [facility] Comment on above: Performed By: #### 1 2834440 ####[place] 2716857 WBC LM.HPF (Urine sed) [#/Area] 0-5 Normal 0-5 [facility] Comment on above: Performed By: #### 1 8973943 ####[place] 27[address]857 URINALYSISOrdered By: Lisbeth quan on 12-31-2021 Bilirubin Ql (U) Negative (12/31/21 7:14 PM) Normal Negative [facility] Auto SS Clarity (U) Clear (12/31/21 7:14 PM) Normal Clear [facility] UA Auto SS Color (U) Yellow (12/31/21 7:14 PM) Normal Yellow [facility] UA Auto SS Epithelial cells.squamous LM.HPF (Urine sed) [#/Area] 0-2 /HPF Normal 0-2/HPF [facility] UA Aut o SS Glucose Test strip (U) [Mass/Vol] Negative (12/31/21 7:14 PM) Normal Negative [facility] UA Auto SS Hemoglobin Ql (U) Negative (12/31/21 7:14 PM) Normal Negative [facility] UA Auto SS Ketones (U) [Mass/Vol] Negative (12/31/21 7:14 PM) Normal Negative [facility] UA Auto SS [place].plasma/Lithiu m.RBC (Bld) [Mass ratio] 0-3 /HPF Normal 0-3/HPF [facility] UA Auto SS Nitrite Ql (U) Negative (12/31/21 7:14 PM) Normal Negative [facility] UA Auto SS pH (U) 6.0 *NA* (12/31/21 7:14 PM) Invalid Interpretation Code 5.0 - 9.0 [facility] UA Auto SS Protein (U) [Mass/Vol] Negative (12/31/21 7:14 PM) Normal Negative [facility] UA Auto SS Specific gravity (U) [Rel density] 1.015 *NA* (12/31/21 7:14 PM) Invalid Interpretation Code 1.005 - 1.030 [facility] UA Auto SS UA Spec Desc Clean Catch (12/31/21 7:14 PM) Normal [facility] UA Auto SS Urobilinogen Qn (U) 0.8171641 {Polina'U}/dL Normal 0.0 - 1.0 EU/dL [facility] UA Auto SS WBC Auto Ql (U) Negative (12/31/21 7:14 PM) Normal Negative [facility] UA Auto SS WBC LM.HPF (Urine sed) [#/Area] 0-5 /HPF Normal 0-5/HPF [facility] UA Auto SS eGFRon 12-31-2021 GFR/1.73 sq M.predicted among blacks MDRD (S/P/Bld) [Vol rate/Area] mL/min/{1.73_m2} Normal >=59 [facility] Comment on above: Order Comment: Order added by Discern Expert. Result Comment: eGFR is race adjusted. AA=. Performed By: #### 2 229360, 6224333, 9372863, 97993608, 5050969, 21562149, 96154701 ####[facility] [address] [place] [address] GFR/1.73 sq M.predicted among non-blacks MDRD (S/P/Bld) [Vol rate/Area] mL/min/{1.73_m2} Normal >=59 [facility] Comment on above: Order Comment: Order added by Discern Expert. Result Comment: Mushroom Cutter ammon kidney disease could be indicated at eGFR's of less than 60 mL/min/1.73m2. Kidney failure is indicated at less than 15 mL/min/1.73m2. Performed By: #### 2 950064, 7550319, 4836317, 71186130, 6964715, 33091287, 78573093 ####[facility] [address] [place] [address] CBCon 11-06-2020 Erythrocyte distribution width (RBC) [Ratio] 13.1 % Normal 11.5 - 14.5 [facility] Comment on above: Performed By: #### C BC #### [address] [id number] Hematocrit (Bld) [Volume fraction] 36.6 % Normal 36.0 - 46.0 [facility] Comment on above: Performed By: #### C BC #### [address] [id number] Hemoglobin (Bld) [Mass/Vol] 11.9 g/dL Low 12.0 - 16.0 [facility] Comment on above: Performed By: #### C BC #### [address] [id number] MCHC (RBC) [Mass/Vol] 32.5 g/dL Normal 32.0 - 36.0 [facility] Comment on above: Performed By: #### C BC #### [address] [id number] MCV (RBC) [Entitic vol] 92 fL Normal 80 - 100 [facility] Comment on above: Performed By: #### C BC #### [address] [id number] RBC 4.00 x10E12/L Normal 4.00 - 5.20 [facility] Comment on above: Performed By: #### C BC #### [address] [id number] WBC (Bld) [#/Vol] 14.4 10*3/uL High 4.4 - 11.3 [facility] Comment on above: Performed By: #### C BC #### [address] [id number] Platelets (Bld) [#/Vol] 368 10*3/uL Normal 150 - 450 [facility] Comment on above: Performed By: #### C BC #### [address] [id number] COMPREHENSIVE PANELon 2020 Albumin [Mass/Vol] 4.4 g/dL Normal 3.4 - 5.0 [facility] Comment on above: Performed By: #### C MP #### [address] [id number] ALP [Catalytic activity/Vol] 69 U/L Normal 33 - 110 [facility] Comment on above: Performed By: #### C MP #### [address] [id number] ALT [Catalytic activity/Vol] 10 U/L Normal 7 - 45 [facility] Comment on above: Result Comment: Radha ents treated with Sulfasalazine may generate falsely decreased results for ALT. Performed By: #### C MP #### [address] [id number] Anion gap [Moles/Vol] 12 mmol/L Normal 10 - 20 [facility] Comment on above: Performed By: #### C MP #### [address] [id number] AST [Catalytic activity/Vol] 13 U/L Normal 9 - 39 [facility] Comment on above: Performed By: #### C MP #### [address] [id number] Bilirubin [Mass/Vol] 0.4 mg/dL Normal 0.0 - 1.2 [facility] Comment on above: Performed By: #### C MP #### [address] [id number] Calcium [Mass/Vol] 9.5 mg/dL Normal 8.6 - 10.3 [facility] Comment on above: Performed By: #### C MP #### [address] [id number] Chloride [Moles/Vol] 104 mmol/L Normal 98 - 107 [facility] Comment on above: Performed By: #### C MP #### [address] [id number] Creatinine [Mass/Vol] 0.54 mg/dL Normal 0.50 - 1.05 [facility] Comment on above: Performed By: #### C MP #### [address] [id number] GFR- AM. >60 Normal >60 [facility] Comment on above: Result Comment: CALC ULATIONS OF ESTIMATED GFR ARE PERFORMED USING THE MDRD STUDY EQUATION FOR THE IDMS-TRACEABLE CREATININE METHODS. CLIN CHEM 2007;53:766-72 Performed By: #### C MP #### [address] [id number] GFR-NON AM. >60 Normal >60 [facility] Comment on above: Performed By: #### C MP #### [address] [id number] Glucose [Mass/Vol] 89 mg/dL Normal 74 - 99 [facility] Comment on above: Performed By: #### C MP #### [address] [id number] HCO3 (Bld) [Moles/Vol] 25 mmol/L Normal 21 - 32 [facility] Comment on above: Performed By: #### C MP #### [address] [id number] Potassium [Moles/Vol] 3.3 mmol/L Low 3.5 - 5.3 [facility] Comment on above: Performed By: #### C MP #### [address] [id number] Protein [Mass/Vol] 7.2 g/dL Normal 6.4 - 8.2 [facility] Comment on above: Performed By: #### C MP #### [address] [id number] Sodium [Moles/Vol] 138 mmol/L Normal 136 - 145 [facility] Comment on above: Performed By: #### C MP #### [address] [id number] Urea nitrogen [Mass/Vol] 13 mg/dL Normal 6 - 23 [facility] Comment on above: Performed By: #### C MP #### [address] [id number] HCG,URINEon 11-06-2020 Beta HCG ( test) Ql (U) Negative Normal Negative [facility] Comment on above: Performed By: #### H CGU #### [address] [id number] LIPASEon 11-06-2020 Lipase [Catalytic activity/Vol] 19 U/L Normal 9 - 82 [facility] Comment on above: Result Comment: Adriana puncture immediately after or during the administration of Metamizole may lead to falsely low results. Testing should be performed immediately prior to Metamizole dosing. I-iooqmv-k-benzoquinone imine (metabolite of Acetaminophen) will generate erroneously low results in samples for patients that have taken toxic doses of acetaminophen. 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 CARDIOVASCULAR: (more content not included)... Normal [facility] Triage - EDon 11-06-2020 Triage - ED [...] Accompanied By: self Language: Spoken Language Preferred: Japanese Reading Language Preferred: Japanese Academic Interventionist Requested: no sign painter apprentice was requested CHIEF COMPLAINT AIMEE REDDY is [...] BMI (kg/m2): 18.934 Calculated BSA (m2) 1.50 [place] Coma Scale: Best Eye Response: (E4) spontaneous Best Motor Response: (M6) obeys commands Best Verbal Response: (V5) oriented Sunita Score: 15 Cough lasting greater than 3 [...] 22:49 by Joel Singer (CLIN COOR) Normal [facility] URINALYSIS WITH CULTURE IF I NDICATEDon 11-06-2020 Appearance (U) CLEAR Normal CLEAR [facility] Comment on above: Performed By: #### U ARFX #### [address] [id number] Bilirubin Ql (U) Negative Normal NEGATIVE [facility] Comment on above: Performed By: #### U ARFX #### [address] [id number] Color (U) COLORLESS Normal STRAW,YELLOW [facility] Comment on above: Performed By: #### U ARFX #### [address] [id number] Glucose Ql (U) Negative Normal NEGATIVE [facility] Comment on above: Performed By: #### U ARFX #### [address] [id number] Hemoglobin Ql (U) Negative Normal NEGATIVE [facility] Comment on above: Performed By: #### U ARFX #### [address] [id number] Ketones Ql (U) 5 (TRACE) Abnormal NEGATIVE [facility] Comment on above: Performed By: #### U ARFX #### [address] [id number] Leukocyte esterase Test strip Ql (U) Negative Normal NEGATIVE [facility] Comment on above: Performed By: #### U ARFX #### [address] [id number] Nitrite Ql (U) Negative Normal NEGATIVE [facility] Comment on above: Performed By: #### U ARFX #### [address] [id number] pH (U) 6.0 [pH] Normal 5.0 - 8.0 [facility] Comment on above: Performed By: #### U ARFX #### [address] [id number] Protein Ql (U) Negative Normal NEGATIVE [facility] Comment on above: Performed By: #### U ARFX #### [address] [id number] Specific gravity (U) [Rel density] 1.005 Normal 1.005 - 1.035 [facility] Comment on above: Performed By: #### U ARFX #### [facility] [address] [place], [place] [id number] Urobilinogen (U) [Mass/Vol] mg/dL Normal 0.0 - 1.9 [facility] Comment on above: Performed By: #### U ARFX #### [facility] [address] [place], [place] [id number] BUNon 02-05-2020 Urea nitrogen [Mass/Vol] 11 mg/dL 8 - 25 mg/dL [facility] Creatinine, serumon 02-05-20 20 Creatinine [Mass/Vol] 0.54 mg/dL 0.40 - 1.10 [facility] GFR/1.73 sq M predicted among non-blacks MDRD (S/P/Bld) [Vol rate/Area] The eGFR should be used for monitoring renal function only and not for medication dosing. [facility] GFR/1.73 sq M.predicted CKD-EPI (S/P/Bld) [Vol rate/Area] 137 >=60 mL/min/1.[address] [facility] Otheron 02-05-2020 Interpretation and review of laboratory results Normal [facility] TSH with Reflex Free T4on Interpretation and review of laboratory results Normal [facility] TSH Qn 1.16 m[IU]/L [facility] CBC WITH AUTO DIFFERENTIALon 12-23-2019 Basophils (Bld) [#/Vol] 0.10 10*3/uL [facility] Basophils/100 WBC (Bld) 0.9 % [facility] Eosinophils (Bld) [#/Vol] 0.91 10*3/uL High [facility] Eosinophils/100 WBC (Bld) 8.6 % [facility] Erythrocyte distribution width (RBC) [Entitic vol] 13.9 % 11.6 - 14.8 % [facility] Hematocrit (Bld) [Volume fraction] 43.3 % 36 - 46 % [facility] Hemoglobin (Bld) [Mass/Vol] 13.7 g/dL 12 - 16 g/dL [facility] Immature granulocytes (Bld) [#/Vol] 0.03 10*3/uL [facility] Immature granulocytes/100 WBC (Bld) 0.30 % [facility] Comment on above: The IG parameter is the percentage of metamyelocytes, myelocytes and promyelocytes. An immature granulocyte count (IG) of 1% or more suggests the possibility of infection, an IG count of 3% is very likely related to an infection. Lymphocytes (Bld) [#/Vol] 4.19 10*3/uL High [facility] Lymphocytes/100 WBC (Bld) 39.8 % [facility] MCH (RBC) [Entitic mass] 29.4 pg 26 - [address] [facility] MCHC (RBC) [Mass/Vol] 31.6 g/dL 31 - 37 g/dL [facility] MCV (RBC) [Entitic vol] 92.9 fL 80 - [address] [facility] Monocytes (Bld) [#/Vol] 1.22 10*3/uL High [facility] Monocytes/100 WBC (Bld) 11.6 % [facility] Neutrophils (Bld) [#/Vol] 4.08 10*3/uL [facility] Neutrophils/100 WBC (Bld) 38.8 % [facility] Nucleated RBC (Bld) [#/Vol] 0.00 10*3/uL [facility] Nucleated RBC/100 WBC (Bld) [Ratio] 0.0 % [facility] Platelet mean volume (Bld) [Entitic vol] 10.9 fL 9.4 - 12.[address] [facility] Platelets (Bld) [#/Vol] 411 10*3/uL High [facility] RBC (Bld) [#/Vol] 4.66 10*6/uL [facility] ealth WBC (Bld) [#/Vol] 10.53 10*3/uL [facility] Calcium Levelon 12-23-2019 Calcium [Mass/Vol] 9.4 mg/dL 8.4 - 10. 2 mg/dL [facility] Chem 7on 12-23-2019 Anion gap [Moles/Vol] 10 mmol/L 10 - 2 0 mmol/L [facility] Chloride [Moles/Vol] 110 mmol/L High 98 - 10 8 mmol/L [facility] Creatinine [Mass/Vol] 0.66 mg/dL 0.40 - 1.10 [facility] GFR/1.73 sq M predicted among non-blacks MDRD (S/P/Bld) [Vol rate/Area] The eGFR should be used for monitoring renal function only and not for medication dosing. [facility] GFR/1.73 sq M.predicted CKD-EPI (S/P/Bld) [Vol rate/Area] 128 >=60 mL/min/1.[address] [facility] Glucose [Mass/Vol] 75 mg/dL 65 - 99 mg/dL [facility] HCO3 [Moles/Vol] 23 mmol/L 21 - 32 mmol/L [facility] Potassium [Moles/Vol] 4.2 mmol/L 3.5 - 5.1 mmol/L [facility] Comment on above: moderate hemolysis, result may be falsely increased. Sodium [Moles/Vol] 139 mmol/L 135 - 145 mmol/L [facility] Urea nitrogen [Mass/Vol] 14 mg/dL 8 - 25 mg/dL [facility] Urea nitrogen/Creatinine [Mass ratio] 21.2 mg/mg High [facility] Magnesium Levelon 12-23-2019 Magnesium [Mass/Vol] 2.4 mg/dL 1.6 - 2 .4 mg/dL [facility] Comment on above: moderate hemolysis, result may be falsely increased. Otheron 12-23-2019 Interpretation and review of laboratory results Normal [facility] Interpretation and review of laboratory results Abnormal [facility] URINALYSISon 12-23-2019 Bacteria Auto Ql (U) None Seen None Se en /hpf [facility] Bilirubin Ql (U) Negative Negative [facility] Clarity Refractometry automated (U) Clear Clear [facility] Color (U) Yellow Colorless, Yellow [facility] Epithelial cells.squamous Auto (Urine sed) [#/Area] <[address] [facility] Glucose Auto test strip (U) [Mass/Vol] Negative Negative mg/dL [facility] Hemoglobin Auto test strip Ql (U) Negative Negative [facility] Interpretation and review of laboratory results Abnormal [facility] Ketones (U) [Mass/Vol] Negative Negative mg/dL [facility] Leukocyte esterase Auto test strip Ql (U) Negative Negative [facility] Mucus Auto (Urine sed) [#/Area] Many Abnormal None Seen, Rare /lpf [facility] Nitrite Auto test strip Ql (U) Negative Negative [facility] pH (U) 6.0 [pH] [facility] Protein (U) [Mass/Vol] 30 Abnormal Negative mg/dL [facility] Comment on above: False positive resul ts may occur in urines with large amounts of hemoglobin, pH greater than 8.0, contrast medium, or disinfectants including ammonium compounds. RBC Auto (Urine sed) [#/Area] 2 [facility] Specific gravity (U) [Rel density] 1.[address] [facility] Urobilinogen (U) [Mass/Vol] <2.0 <2.0 mg/dL [facility] WBC Auto (Urine sed) [#/Area] <[address] [facility] Microscopic examinat ion is performed on all urinalysis samples and only positive findings are reported. The test for blood on the chemical analytic portion of urinalysis may also be positive due to hemoglobinuria and myoglobinuria and if red blood cells are present they are quantified by microscopic examination. [facility] Urine Pregnancyon 12-23-2019 HCG ( test) Ql (U) Negative Negative [facility] Interpretation and review of laboratory results Normal [facility] CBCon 12-16-2019 Erythrocyte distribution width (RBC) [Ratio] 13.6 % 11.5 - 14.5 % [place] Hematocrit (Bld) [Volume fraction] 39.8 % 37 - 47 % [place] Hemoglobin (Bld) [Mass/Vol] 12.9 g/dL 12 - 16 g/dL [place] MCH (RBC) [Entitic mass] 30.3 pg 27 - 31.3 pg [place] MCHC (RBC) [Mass/Vol] 32.3 % Low 33 - 37 % [place] MCV (RBC) [Entitic vol] 93.9 fL 82 - 100 fL [place] Platelets (Bld) [#/Vol] 355 10*3/uL 130 - 400 K/uL [place] RBC (Bld) [#/Vol] 4.24 10*6/uL [place] WBC (Bld) [#/Vol] 15.9 10*3/uL High 4.5 - 11 K/uL [place] CBC With Platelet No Differe ntialon 12-16-2019 Erythrocyte distribution width (RBC) [Ratio] 13.6 % Normal 11.5-14.5 [facility] Comment on above: Performed By: #### C BCND #### [facility] [address] [place] [address] Hematocrit (Bld) [Volume fraction] 39.8 % Normal 37.0-47.0 [facility] Comment on above: Performed By: #### C BCND #### [facility] [address] [place] [address] Hemoglobin (Bld) [Mass/Vol] 12.9 g/dL Normal 12.0-16.0 [facility] Comment on above: Performed By: #### C BCND #### [facility] [address] [place] [address] MCH (RBC) [Entitic mass] 30.3 pg Normal 27.0-31.3 [facility] Comment on above: Performed By: #### C BCND #### [facility] [address] [place] [address] MCHC (RBC) [Mass/Vol] 32.3 % Low 33.0-37.0 [facility] Comment on above: Performed By: #### C BCND #### [facility] [address] [place] [address] MCV (RBC) [Entitic vol] 93.9 fL Normal 82.0-100.0 [facility] Comment on above: Performed By: #### C BCND #### [facility] [address] [place] [address] Platelets (Bld) [#/Vol] 355 10*3/uL Normal 130-400 [facility] Comment on above: Performed By: #### C BCND #### [facility] [address] [place] [address] RBC (Bld) [#/Vol] 4.24 10*6/uL Normal 4.20-5.40 [facility] Comment on above: Performed By: #### C BCND #### [facility] [address] [place] [address] WBC (Bld) [#/Vol] 15.9 10*3/uL Critically high 4.5-11.0 [facility] Comment on above: Performed By: #### C BCND #### [facility] [address] [place] [address] CT HEAD WO CONTRASTon 2019 CT HEAD [...] Aidan Rosario MD 12/17/19 Final result Normal [facility] Comprehensive Metabolic Pane elyse 12-16-2019 Albumin [Mass/Vol] 5.0 g/dL Critically high 3.5-4.6 [facility] Comment on above: Performed By: #### C MP #### [facility] [address] [place] [address] ALP [Catalytic activity/Vol] 89 U/L Normal 40-130 [place], [place] Comment on above: Performed By: #### C MP #### [facility] [address] [place] [address] ALT [Catalytic activity/Vol] 9 U/L Normal 0-33 [place], [place] Comment on above: Performed By: #### C MP #### [facility] [address] [place] [address] Anion gap [Moles/Vol] 12 mmol/L Normal 9-15 [place], [place] Comment on above: Performed By: #### C MP #### [facility] [address] [place] [address] AST [Catalytic activity/Vol] 22 U/L Normal 0-35 [place], [place] Comment on above: Performed By: #### C MP #### [facility] [address] [place] [address] Bilirubin [Mass/Vol] 0.6 mg/dL Normal 0.2-0.7 [facility] Comment on above: Performed By: #### C MP #### [facility] [address] [place] [address] Calcium [Mass/Vol] 9.7 mg/dL Normal 8.5-9.9 [place] Comment on above: Performed By: #### C MP #### [facility] [address] [place] [address] Chloride [Moles/Vol] 104 mmol/L Normal 95-107 [place], [place] Comment on above: Performed By: #### C MP #### [facility] [address] [place] [address] CO2 [Moles/Vol] 23 mmol/L Normal 20-31 [place], [place] Comment on above: Performed By: #### C MP #### [facility] [address] [place] [address] Creatinine [Mass/Vol] 0.48 mg/dL Low 0.50-0.90 [place] Comment on above: Performed By: #### C MP #### [facility] [address] [place] [address] GFR/1.73 sq M predicted among blacks MDRD (S/P/Bld) [Vol rate/Area] mL/min/{1.73_m2} Normal >60 [facility] Comment on above: Result Comment: >60 mL/min/1.73m2 EGFR, calc. for ages 18 and older using the MDRD formula (not corrected for weight), is valid for stable renal function. Performed By: #### C MP #### [facility] [address] [place] [address] GFR/1.73 sq M.predicted MDRD (S/P/Bld) [Vol rate/Area] mL/min/{1.73_m2} Normal >60 [facility] Comment on above: Result Comment: >60 mL/min/1.73m2 EGFR, calc. for ages 18 and older using the MDRD formula (not corrected for weight), is valid for stable renal function. Performed By: #### C MP #### [facility] [address] [place] [address] Globulin (S) [Mass/Vol] 3.4 g/dL Normal 2.3-3.5 [place] Comment on above: Performed By: #### C MP #### [facility] [address] [place] [address] Glucose [Mass/Vol] 104 mg/dL Critically high 70-99 [place] Comment on above: Performed By: #### C MP #### [facility] [address] [place] [address] Potassium [Moles/Vol] 3.8 mmol/L Normal 3.4-4.9 [place] Comment on above: Performed By: #### C MP #### [facility] [address] [place] [address] Protein [Mass/Vol] 8.4 g/dL Critically high 6.3-8.0 [place] Comment on above: Performed By: #### C MP #### [facility] [address] [place] [address] Sodium [Moles/Vol] 139 mmol/L Normal 135-144 [place], [place] Comment on above: Performed By: #### C MP #### [facility] [address] [place] [address] Urea nitrogen [Mass/Vol] 15 mg/dL Normal 6-20 [place] Comment on above: Performed By: #### C MP #### [facility] [address] [facility] [address] Albumin [Mass/Vol] 5 g/dL High 3.5 - 4.6 g/dL [place] Bilirubin Ql (U) 0.6 mg/dL 0.2 - 0.7 mg/dL [place] GFR >60.0 >60 [place] Comment on above: >60 mL/min/1.73m2 EG FR, calc. for ages 18 and older using the MDRD formula (not corrected for weight), is valid for stable renal function. GFR Non- >60.0 >60 [place] Comment on above: >60 mL/min/1.73m2 EG FR, calc. for ages 18 and older using the MDRD formula (not corrected for weight), is valid for stable renal function. Otheron 12-16-2019 Interpretation and review of laboratory results Abnormal [place], [place] , Urineon 0 Beta HCG ( test) Ql (U) Negative Detects HCG level >20 MIU/mL [place] UR HCG Qualitativeon 020 Beta HCG ( test) Ql (U) Negative Normal Detects [facility] Comment on above: Performed By: #### U HCG #### [facility] [address] [facility] [address] Urinalysis, reflex to cultur reta 12-16-2019 Bilirubin Ql (U) Negative Normal Negative [facility] Comment on above: Performed By: #### U AR #### [facility] [address] [facility] [address] Clarity (U) Clear Normal Clear [facility] Comment on above: Performed By: #### U AR #### [facility] [address] [facility] [address] Color (U) Yellow Normal [facility] Comment on above: Performed By: #### U AR #### [facility] [address] [facility] [address] Glucose Ql (U) Negative Normal Negative [facility] Comment on above: Performed By: #### U AR #### [facility] [address] [place] [address] Hemoglobin Ql (U) Negative Normal Negative [facility] Comment on above: Performed By: #### U AR #### [facility] [address] [place] [address] Ketones Ql (U) 40 mg/dL Abnormal Negative [facility] Comment on above: Performed By: #### U AR #### [facility] [address] [place] [address] Leukocyte esterase Test strip Ql (U) Negative Normal Negative [facility] Comment on above: Performed By: #### U AR #### [facility] [address] [place] [address] Nitrite Ql (U) Negative Normal Negative [facility] Comment on above: Performed By: #### U AR #### [facility] [address] [place] [address] pH (U) 7.0 [pH] Normal 5.0-9.0 [facility] Comment on above: Performed By: #### U AR #### [facility] [address] [place] [address] Protein Ql (U) Negative Normal Negative [facility] Comment on above: Performed By: #### U AR #### [facility] [address] [place] [address] Specific gravity (U) [Rel density] 1.025 Normal 1.005-1.03 [facility] Comment on above: Performed By: #### U AR #### [facility] [address] [place] [address] Urine Reflexed to Culture Not Indicated Normal [facility] Comment on above: Performed By: #### U AR #### [facility] [address] [place] [address] Urobilinogen Qn (U) 0.2 {Polina'U}/dL Normal < 2.0 [facility] Comment on above: Performed By: #### U AR #### [facility] [address] [facility] Urine Reflex to Cultureon Bilirubin Urine Negative Negative [facility] Blood, Urine Negative Negative [place], [place] Clarity, UA Clear Clear [place], [place] Color, UA Yellow Straw/Yellow [place], [place] Glucose, Ur Negative Negative mg/dL [place] Ketones Ql (U) 40 mg/dL Abnormal Negative [place], [place] Leukocyte esterase Test strip Ql (U) Negative Negative [place] Nitrite, Urine Negative Negative [place] pH, UA 7.0 [place] Protein (U) [Mass/Vol] Negative Negative mg/dL [place] Specific [place], UA 1.025 [place] Urine Reflex to Culture Not Indicated [place], [place] Urobilinogen, Urine 0.2 <2.0 E.U./dL [place] POC H. Pylori Teston 019 [address] [facility] Lot Number [id number] [facility] POC H. Pylori Negative Negative [facility] POC , Urineon 02-24 HCG ( test) Ql (U) Negative Negative [facility] Internal Control [facility] Interpretation and review of laboratory results Normal [facility] Specific gravity (U) [Rel density] [facility] NM Hepatobiliary With Ejecti on Fractionon 02-11-2019 Cholesterol [Mass/Vol] 1. No evidence of acute cholecystitis. 2. Gallbladder ejection fraction is decreased, suggesting chronic cholecystitis or biliary dyskinesia. 3. Mild enterogastric reflux. [facility]/trn Workstation ID: [id number] [facility] EXAMINATION: HEPATOBILIARY SCAN WITH GALLBLADDER EJECTION [...] There is mild enterogastric reflux. [facility] Interface, Rad In Fu ji Speechq [...] reflux. [facility]/trn Workstation ID: [id number] [facility] Bilirubin, Directon 01-29-20 19 Bilirubin.conjugated [Mass/Vol] mg/dL 0 - 0.4 mg/dL [facility] Interpretation and review of laboratory results Normal [facility] CBC WITH AUTO DIFFERENTIALon 01-28-2019 Basophils (Bld) [#/Vol] 0.08 10*3/uL [facility] Basophils/100 WBC (Bld) 0.6 % [facility] Eosinophils (Bld) [#/Vol] 0.43 10*3/uL [facility] Eosinophils/100 WBC (Bld) 3.5 % [facility] Erythrocyte distribution width (RBC) [Entitic vol] 13.3 % 11.6 - 14.8 % [facility] Hematocrit (Bld) [Volume fraction] 38.0 % 36 - 46 % [facility] Hemoglobin (Bld) [Mass/Vol] 12.5 g/dL 12 - 16 g/dL [facility] Immature granulocytes (Bld) [#/Vol] 0.06 10*3/uL [facility] Immature granulocytes/100 WBC (Bld) 0.50 % [facility] Comment on above: The IG parameter is the percentage of metamyelocytes, myelocytes, and promyelocytes. Interpretation and review of laboratory results Abnormal [facility] Lymphocytes (Bld) [#/Vol] 5.24 10*3/uL High [facility] Lymphocytes/100 WBC (Bld) 42.3 % [facility] MCH (RBC) [Entitic mass] 29.3 pg 25 - [address] [facility] MCHC (RBC) [Mass/Vol] 32.9 g/dL 31 - 37 g/dL [facility] MCV (RBC) [Entitic vol] 89.0 fL 78 - [address] [facility] Monocytes (Bld) [#/Vol] 1.22 10*3/uL [facility] Monocytes/100 WBC (Bld) 9.8 % [facility] Neutrophils (Bld) [#/Vol] 5.36 10*3/uL [facility] Neutrophils/100 WBC (Bld) 43.3 % [facility] Nucleated RBC (Bld) [#/Vol] 0.00 10*3/uL [facility] Nucleated RBC/100 WBC (Bld) [Ratio] 0.0 % [facility] Platelet mean volume (Bld) [Entitic vol] 11.0 fL 9 - 15.[address] [facility] Platelets (Bld) [#/Vol] 397 10*3/uL [facility] RBC (Bld) [#/Vol] 4.27 10*6/uL [facility] ealth WBC (Bld) [#/Vol] 12.39 10*3/uL [facility] CT Abdomen Pelvis With IV Co ntrast [...] air. No suspicious osteolytic or osteoblastic lesion. [facility], Rad In Fu ji Speechq - 01/28/2019 [...] amount of pelvic free fluid, likely physiologic. [facility] Workstation ID: [id number] [facility] 1. Periportal edema and gallbladder wall edema. Findings remain nonspecific. This finding can be seen in the setting of aggressive volume resuscitation, hypotony anemic state tend underlying hepatitis. No focal hepatic lesion. 2. No renal, ureteral or bladder stone. 3. Normal appendix. 4. Small amount of pelvic free fluid, likely physiologic. [facility] Workstation ID: [id number] [facility] Comprehensive Metabolic Pane elyse 01-28-2019 Albumin [Mass/Vol] 4.2 g/dL 3.2 - 4.5 g/dL [facility] ALP [Catalytic activity/Vol] 84 U/L 40 - 140 U/L [facility] ALT [Catalytic activity/Vol] 20 U/L 14 - 65 U/L [facility] Anion gap [Moles/Vol] 12 mmol/L 10 - 2 0 mmol/L [facility] AST [Catalytic activity/Vol] 11 U/L 0 - 45 U/L [facility] Bilirubin [Mass/Vol] 0.3 mg/dL 0 - 1.3 mg/dL [facility] Calcium [Mass/Vol] 9.3 mg/dL 8.4 - 10. 2 mg/dL [facility] Chloride [Moles/Vol] 111 mmol/L High 98 - 10 8 mmol/L [facility] Creatinine [Mass/Vol] 0.58 mg/dL 0.5 - 1 mg/dL [facility] GFR/1.73 sq M predicted among non-blacks MDRD (S/P/Bld) [Vol rate/Area] The eGFR should be used for monitoring renal function only and not for medication dosing. [facility] GFR/1.73 sq M.predicted CKD-EPI (S/P/Bld) [Vol rate/Area] 135 >=60 mL/min/1.[address] [facility] Glucose [Mass/Vol] 88 mg/dL 65 - 99 mg/dL [facility] HCO3 [Moles/Vol] 22 mmol/L 21 - 32 mmol/L [facility] Interpretation and review of laboratory results Abnormal [facility] Potassium [Moles/Vol] 3.7 mmol/L 3.5 - 5.1 mmol/L [facility] Protein [Mass/Vol] 7.6 g/dL 6 - 8 g/dL [facility] Sodium [Moles/Vol] 141 mmol/L 135 - 145 mmol/L [facility] Urea nitrogen [Mass/Vol] 16 mg/dL 8 - 25 mg/dL [facility] Urea nitrogen/Creatinine [Mass ratio] 27.6 mg/mg High [facility] Lipaseon 01-28-2019 Interpretation and review of laboratory results Normal [facility] Lipase [Catalytic activity/Vol] 105 U/L 73 - 393 U/L [facility] PT/INRon 01-28-2019 INR Coag (PPP) [Relative time] 1.1 {INR} [facility] Interpretation and review of laboratory results Normal [facility] PT Coag (PPP) [Time] 13.8 s [facility] During the induction phase of oral anticoagulation, the INR may not reflect the anticoagulation status of the patient. Therapeutic ranges for INR's are: Most clinical situations: INR 2.0-3.0 Mechanical Prosthetic Valve: INR 2.5-3.5 Critical: INR >5.[address] [facility] TROPONINon 01-28-2019 Troponin I.cardiac [Mass/Vol] ng/mL <=45 ng/L [facility] Troponin I.cardiac [Mass/Vol] Normal [facility] XR Chest 1 Viewon 01-28-2019 No acute cardiopulmo nary abnormality. [facility] Workstation ID: [id number] [facility] Interface, Rad In Fu ji Speechq - 01/28/2019 5:53 AM EDT EXAMINATION: [...] seen. IMPRESSION: No acute cardiopulmonary abnormality. [facility] Workstation ID: [id number] [facility] EXAMINATION: XR CHES T PA/AP HISTORY: [...] acute osseous abnormality is seen. [facility] URINALYSISon 01-27-2019 Bacteria Auto Ql (U) Few Abnormal None Se en /hpf [facility] Bilirubin Ql (U) Negative Negative [facility] th Clarity Refractometry automated (U) Cloudy Abnormal Clear [facility] Color (U) Yellow Colorless, Yellow [facility] Epithelial cells.squamous Auto (Urine sed) [#/Area] [address] [facility] Glucose Auto test strip (U) [Mass/Vol] Negative Negative mg/dL [facility] Hemoglobin Auto test strip Ql (U) Small Abnormal Negative [facility] Interpretation and review of laboratory results Abnormal [facility] Ketones (U) [Mass/Vol] Negative Negative mg/dL [facility] Leukocyte esterase Auto test strip Ql (U) Negative Negative [facility] Mucus Auto (Urine sed) [#/Area] Many Abnormal None Seen, Rare /lpf [facility] Nitrite Auto test strip Ql (U) Positive Abnormal Negative [facility] pH (U) 5.0 [pH] [facility] Protein (U) [Mass/Vol] Negative Negative mg/dL [facility] RBC Auto (Urine sed) [#/Area] [address] [facility] Specific gravity (U) [Rel density] 1.[address] [facility] Urobilinogen (U) [Mass/Vol] <2.0 <2.0 mg/dL [facility] WBC Auto (Urine sed) [#/Area] [address] [facility] Microscopic examinat ion is performed on all urinalysis samples and only positive findings are reported. The test for blood on the chemical analytic portion of urinalysis may also be positive due to hemoglobinuria and myoglobinuria and if red blood cells are present they are quantified by microscopic examination. [facility] Urine Pregnancyon 01-27-2019 HCG ( test) Ql (U) Negative Negative [facility] Interpretation and review of laboratory results Normal [facility] Basic Metabolic Panelon 10-22 Anion gap [Moles/Vol] 10 mmol/L 10 - 2 0 mmol/L [facility] Calcium [Mass/Vol] 8.6 mg/dL 8.4 - 10. 2 mg/dL [facility] Chloride [Moles/Vol] 112 mmol/L High 98 - 10 8 mmol/L [facility] Creatinine [Mass/Vol] 0.44 mg/dL Low 0.5 - 1 mg/dL [facility] GFR/1.73 sq M predicted among non-blacks MDRD (S/P/Bld) [Vol rate/Area] The eGFR should be used for monitoring renal function only and not for medication dosing. [facility] GFR/1.73 sq M.predicted CKD-EPI (S/P/Bld) [Vol rate/Area] 148 >=60 mL/min/1.[address] [facility] Glucose [Mass/Vol] 99 mg/dL 65 - 99 mg/dL [facility] HCO3 [Moles/Vol] 23 mmol/L 21 - 32 mmol/L [facility] Interpretation and review of laboratory results Abnormal [facility] Potassium [Moles/Vol] 3.9 mmol/L 3.5 - 5.1 mmol/L [facility] Sodium [Moles/Vol] 141 mmol/L 135 - 145 mmol/L [facility] Urea nitrogen [Mass/Vol] 7 mg/dL Low 8 - 25 mg/dL [facility] Urea nitrogen/Creatinine [Mass ratio] 15.9 mg/mg [facility] CBC WITH AUTO DIFFERENTIALon 11-09-2018 Basophils (Bld) [#/Vol] 0.07 10*3/uL [facility] Basophils/100 WBC (Bld) 0.6 % [facility] Eosinophils (Bld) [#/Vol] 0.50 10*3/uL [facility] Eosinophils/100 WBC (Bld) 4.3 % [facility] Erythrocyte distribution width (RBC) [Entitic vol] 15.7 % High 11.6 - 14.8 % [facility] Hematocrit (Bld) [Volume fraction] 34.2 % Low 36 - 46 % [facility] Hemoglobin (Bld) [Mass/Vol] 11.2 g/dL Low 12 - 16 g/dL [facility] Immature granulocytes (Bld) [#/Vol] 0.05 10*3/uL [facility] Immature granulocytes/100 WBC (Bld) 0.40 % [facility] Comment on above: The IG parameter is the percentage of metamyelocytes, myelocytes, and promyelocytes. Interpretation and review of laboratory results Abnormal [facility] Lymphocytes (Bld) [#/Vol] 4.75 10*3/uL High [facility] Lymphocytes/100 WBC (Bld) 41.3 % [facility] MCH (RBC) [Entitic mass] 30.0 pg 25 - [address] [facility] MCHC (RBC) [Mass/Vol] 32.7 g/dL 31 - 37 g/dL [facility] MCV (RBC) [Entitic vol] 91.7 fL 78 - [address] [facility] Monocytes (Bld) [#/Vol] 1.22 10*3/uL High [facility] Monocytes/100 WBC (Bld) 10.6 % [facility] Neutrophils (Bld) [#/Vol] 4.92 10*3/uL [facility] Neutrophils/100 WBC (Bld) 42.8 % [facility] Nucleated RBC (Bld) [#/Vol] 0.00 10*3/uL [facility] Nucleated RBC/100 WBC (Bld) [Ratio] 0.0 % [facility] Platelet mean volume (Bld) [Entitic vol] 11.1 fL 9 - 15.[address] [facility] Platelets (Bld) [#/Vol] 453 10*3/uL High [facility] RBC (Bld) [#/Vol] 3.73 10*6/uL Low [facility] eah WBC (Bld) [#/Vol] 11.51 10*3/uL [facility] CBC WITH AUTO DIFFERENTIALon 11-08-2018 Basophils (Bld) [#/Vol] 0.06 10*3/uL [facility] Basophils/100 WBC (Bld) 0.4 % [facility] Eosinophils (Bld) [#/Vol] 0.24 10*3/uL [facility] Eosinophils/100 WBC (Bld) 1.8 % [facility] Erythrocyte distribution width (RBC) [Entitic vol] 15.8 % High 11.6 - 14.8 % [facility] Hematocrit (Bld) [Volume fraction] 35.7 % Low 36 - 46 % [facility] Hemoglobin (Bld) [Mass/Vol] 11.8 g/dL Low 12 - 16 g/dL [facility] Immature granulocytes (Bld) [#/Vol] 0.05 10*3/uL [facility] Immature granulocytes/100 WBC (Bld) 0.40 % [facility] Comment on above: The IG parameter is the percentage of metamyelocytes, myelocytes, and promyelocytes. Interpretation and review of laboratory results Abnormal [facility] Lymphocytes (Bld) [#/Vol] 4.45 10*3/uL High [facility] Lymphocytes/100 WBC (Bld) 33.1 % [facility] MCH (RBC) [Entitic mass] 29.9 pg 25 - [address] [facility] MCHC (RBC) [Mass/Vol] 33.1 g/dL 31 - 37 g/dL [facility] MCV (RBC) [Entitic vol] 90.6 fL 78 - [address] [facility] Monocytes (Bld) [#/Vol] 1.51 10*3/uL High [facility] Monocytes/100 WBC (Bld) 11.2 % [facility] Neutrophils (Bld) [#/Vol] 7.15 10*3/uL High [facility] Neutrophils/100 WBC (Bld) 53.1 % [facility] Nucleated RBC (Bld) [#/Vol] 0.00 10*3/uL [facility] Nucleated RBC/100 WBC (Bld) [Ratio] 0.0 % [facility] Platelet mean volume (Bld) [Entitic vol] 12.2 fL 9 - 15.[address] [facility] Platelets (Bld) [#/Vol] 441 10*3/uL High [facility] RBC (Bld) [#/Vol] 3.94 10*6/uL Low [facility] WBC (Bld) [#/Vol] 13.46 10*3/uL [facility] CT Abdomen Pelvis With IV Co ntrast Onlyon 11-08-2018 1. [id number] edematous changes reflective of pyelonephritis of the mid and inferior aspect of the right kidney. 2. No evidence of hydronephrosis or urinary tract stone. Urinary bladder incidentally is somewhat overdistended at the time of the study. 3. New tjbh-hy-xxnturnl ascites in the pelvis which has developed fairly rapidly since the prior study. 4. Xsap-ol-muackbbf constipation. 5. Patient is status post splenectomy. Workstation ID: [id number] [facility], Rad In Fu ji Speechq - 11/08/2018 [...] abdominal wall hernia is noted. IMPRESSION: 1. Oago-xo-pdjvefmw edematous changes reflective of pyelonephritis of the mid and inferior aspect of the right kidney. 2. No evidence of hydronephrosis or urinary tract stone. Urinary bladder incidentally is somewhat overdistended at the time of the study. 3. New yufl-no-qfvhaexf ascites in the pelvis which has developed fairly rapidly since the prior study. 4. Xnmy-ir-pleoyunk constipation. 5. Patient is status post splenectomy. Workstation ID: [id number] [facility] EXAMINATION: CT ABDO MEN PELVIS WITH [...] abdominal wall hernia is noted. [facility] Urine Aerobic Cultureon 10-22 Bacteria identified Aer cx Nom (Unsp spec) No Growth (<1,000 CFU/mL) [facility] CBC WITH AUTO DIFFERENTIALon 11-07-2018 Basophils (Bld) [#/Vol] 0.06 10*3/uL [facility] Basophils/100 WBC (Bld) 0.3 % [facility] Eosinophils (Bld) [#/Vol] 0.21 10*3/uL [facility] Eosinophils/100 WBC (Bld) 1.0 % [facility] Erythrocyte distribution width (RBC) [Entitic vol] 15.9 % High 11.6 - 14.8 % [facility] Hematocrit (Bld) [Volume fraction] 37.5 % 36 - 46 % [facility] Hemoglobin (Bld) [Mass/Vol] 12.1 g/dL 12 - 16 g/dL [facility] Immature granulocytes (Bld) [#/Vol] 0.08 10*3/uL [facility] Immature granulocytes/100 WBC (Bld) 0.40 % [facility] Comment on above: The IG parameter is the percentage of metamyelocytes, myelocytes, and promyelocytes. Interpretation and review of laboratory results Abnormal [facility] Lymphocytes (Bld) [#/Vol] 5.29 10*3/uL High [facility] Lymphocytes/100 WBC (Bld) 25.2 % [facility] MCH (RBC) [Entitic mass] 29.7 pg 25 - [address] [facility] MCHC (RBC) [Mass/Vol] 32.3 g/dL 31 - 37 g/dL [facility] MCV (RBC) [Entitic vol] 92.1 fL 78 - [address] [facility] Monocytes (Bld) [#/Vol] 2.12 10*3/uL High [facility] Monocytes/100 WBC (Bld) 10.1 % [facility] Neutrophils (Bld) [#/Vol] 13.26 10*3/uL High [facility] Neutrophils/100 WBC (Bld) 63.0 % [facility] Comment on above: Peripheral smear rev iewed manually Nucleated RBC (Bld) [#/Vol] 0.00 10*3/uL [facility] Nucleated RBC/100 WBC (Bld) [Ratio] 0.0 % [facility] Platelet mean volume (Bld) [Entitic vol] 11.3 fL 9 - 15.[address] [facility] Platelets (Bld) [#/Vol] 316 10*3/uL [facility] RBC (Bld) [#/Vol] 4.07 10*6/uL Low [facility] ealth WBC (Bld) [#/Vol] 21.02 10*3/uL High [facility] MORPHOLOGYon 11-07-2018 Radha cells LM Ql (Bld) Few [facility] Basic Metabolic Panelon 10-22 Anion gap [Moles/Vol] 11 mmol/L 10 - 2 0 mmol/L [facility] Calcium [Mass/Vol] 8.2 mg/dL Low 8.4 - 10. 2 mg/dL [facility] Chloride [Moles/Vol] 114 mmol/L High 98 - 10 8 mmol/L [facility] Creatinine [Mass/Vol] 0.51 mg/dL 0.5 - 1 mg/dL [facility] GFR/1.73 sq M predicted among non-blacks MDRD (S/P/Bld) [Vol rate/Area] The eGFR should be used for monitoring renal function only and not for medication dosing. [facility] GFR/1.73 sq M.predicted CKD-EPI (S/P/Bld) [Vol rate/Area] 141 >=60 mL/min/1.[address] [facility] Glucose [Mass/Vol] 96 mg/dL 65 - 99 mg/dL [facility] HCO3 [Moles/Vol] 20 mmol/L Low 21 - 32 mmol/L [facility] Interpretation and review of laboratory results Abnormal [facility] Potassium [Moles/Vol] 3.6 mmol/L 3.5 - 5.1 mmol/L [facility] Sodium [Moles/Vol] 141 mmol/L 135 - 145 mmol/L [facility] Urea nitrogen [Mass/Vol] 5 mg/dL Low 8 - 25 mg/dL [facility] Urea nitrogen/Creatinine [Mass ratio] 9.8 mg/mg Low [facility] CBC WITH AUTO DIFFERENTIALon 11-06-2018 Erythrocyte distribution width (RBC) [Entitic vol] 15.6 % High 11.6 - 14.8 % [facility] Hematocrit (Bld) [Volume fraction] 34.7 % Low 36 - 46 % [facility] Hemoglobin (Bld) [Mass/Vol] 11.2 g/dL Low 12 - 16 g/dL [facility] MCH (RBC) [Entitic mass] 29.7 pg 25 - [address] [facility] MCHC (RBC) [Mass/Vol] 32.3 g/dL 31 - 37 g/dL [facility] MCV (RBC) [Entitic vol] 92.0 fL 78 - [address] [facility] Nucleated RBC (Bld) [#/Vol] 0.00 10*3/uL [facility] Nucleated RBC/100 WBC (Bld) [Ratio] 0.0 % [facility] Platelet mean volume (Bld) [Entitic vol] 10.8 fL 9 - 15.[address] [facility] Platelets (Bld) [#/Vol] 347 10*3/uL [facility] RBC (Bld) [#/Vol] 3.77 10*6/uL Low [facility] ealth WBC (Bld) [#/Vol] 21.19 10*3/uL High [facility] Basophils (Bld) [#/Vol] 0.09 10*3/uL [facility] Basophils/100 WBC (Bld) 0.4 % [facility] Eosinophils (Bld) [#/Vol] 0.13 10*3/uL [facility] Eosinophils/100 WBC (Bld) 0.6 % [facility] Erythrocyte distribution width (RBC) [Entitic vol] 15.4 % High 11.6 - 14.8 % [facility] Hematocrit (Bld) [Volume fraction] 34.6 % Low 36 - 46 % [facility] Hemoglobin (Bld) [Mass/Vol] 11.2 g/dL Low 12 - 16 g/dL [facility] Immature granulocytes (Bld) [#/Vol] 0.13 10*3/uL [facility] Immature granulocytes/100 WBC (Bld) 0.60 % [facility] Comment on above: The IG parameter is the percentage of metamyelocytes, myelocytes, and promyelocytes. Interpretation and review of laboratory results Abnormal [facility] Lymphocytes (Bld) [#/Vol] 5.91 10*3/uL High [facility] Lymphocytes/100 WBC (Bld) 25.8 % [facility] MCH (RBC) [Entitic mass] 29.9 pg 25 - [address] [facility] MCHC (RBC) [Mass/Vol] 32.4 g/dL 31 - 37 g/dL [facility] MCV (RBC) [Entitic vol] 92.5 fL 78 - [address] [facility] Monocytes (Bld) [#/Vol] 2.60 10*3/uL High [facility] Monocytes/100 WBC (Bld) 11.4 % [facility] Neutrophils (Bld) [#/Vol] 14.04 10*3/uL High [facility] Neutrophils/100 WBC (Bld) 61.2 % [facility] Comment on above: Peripheral smear rev iewed manually Nucleated RBC (Bld) [#/Vol] 0.00 10*3/uL [facility] Nucleated RBC/100 WBC (Bld) [Ratio] 0.0 % [facility] Platelet mean volume (Bld) [Entitic vol] 11.5 fL 9 - 15.[address] [facility] Platelets (Bld) [#/Vol] 330 10*3/uL [facility] RBC (Bld) [#/Vol] 3.74 10*6/uL Low [facility] ealth WBC (Bld) [#/Vol] 22.90 10*3/uL [facility] CT Abdomen Pelvis Without Co ntraston 11-06-2018 Interface, Rad [facility] - 11/06/2018 2:37 AM EDT CLINICAL HISTORY: [...] No nephro- or ureterolithiasis. 3. Normal-appearing appendix. KKV/vrs Workstation ID: [id number] [facility] CLINICAL HISTORY: Ri ght CVA tenderness, [...] structures demonstrate no gross abnormalities. [facility] 1. There is some perinephric fat stranding involving the right kidney which could be a nonspecific finding, however underlying pyelonephritis would be a consideration. 2. No nephro- or ureterolithiasis. 3. Normal-appearing appendix. [employer] Workstation ID: [id number] [facility] Hemoglobin A1con 11-06-2018 Average glucose Estimated from glycated hemoglobin mass conc (Bld) 94 mg/dL 68 - 114 mg/dL [facility] HbA1c (Bld) [Mass fraction] 4.9 % 4 - 5.6 % [facility] Comment on above: Normal: 4.0% - 5.6% Increased risk for diabetes: 5.7% - 6.4% Diabetes: >= 6.5% Pediatrics: No established reference range Estimated average glucose: 68-114 mg/dL Please note: Reference intervals were changed as of 07/31/2018 to align with current [place] [employer] guidelines Interpretation and review of laboratory results Normal [facility] MORPHOLOGYon 11-06-2018 Anisocytosis Ql (Bld) 1+ [facility] [place] cells LM Ql (Bld) Rare [facility] Anisocytosis Ql (Bld) 1+ [facility] [place] cells LM Ql (Bld) Rare [facility] [place] bodies LM Ql (Bld) Rare [facility] Magnesium Levelon 11-06-2018 Interpretation and review of laboratory results Normal [facility] Magnesium [Mass/Vol] 2.1 mg/dL 1.6 - 2 .4 mg/dL [facility] Manual Differentialon 2018 Band form neutrophils/100 WBC (Bld) 0.0 % [facility] Basophils (Bld) [#/Vol] 0.00 10*3/uL [facility] Basophils/100 WBC (Bld) 0.0 % [facility] Blasts Manual cnt (Bld) [#/Vol] 0.00 [facility] Blasts/100 WBC (Bld) 0.0 % [facility] Eosinophils (Bld) [#/Vol] 0.38 10*3/uL [facility] Eosinophils/100 WBC (Bld) 1.8 % [facility] Lymphocytes (Bld) [#/Vol] 7.25 10*3/uL High [facility] Lymphocytes/100 WBC (Bld) 34.2 % [facility] Metamyelocytes/100 WBC (Bld) 0.0 % [facility] Monocytes (Bld) [#/Vol] 4.20 10*3/uL High [facility] Monocytes/100 WBC (Bld) 19.8 % [facility] Myelocytes/100 WBC (Bld) 0.0 % [facility] Neutrophils (Bld) [#/Vol] 9.34 10*3/uL High [facility] Neutrophils/100 WBC (Bld) 44.1 % [facility] Other cells Manual cnt (Bld) [#/Vol] 0.[address] [facility] Other cells/100 WBC Manual cnt (Bld) 0.0 % [facility] Plasma cells (Bld) [#/Vol] 0.00 10*3/uL [facility] Plasma cells/100 WBC (Bld) 0.0 % [facility] Promyelocytes/100 WBC (Bld) 0.0 % [facility] Variant lymphocytes/100 WBC (Bld) 0.0 % [facility] Otheron 11-06-2018 Interpretation and review of laboratory results Abnormal [facility] hCG Urine, Qualitativeon HCG ( test) Ql (U) Negative Negative [facility] Interpretation and review of laboratory results Normal [facility] C Urineon 11-05-2018 C Urine Final [...] <=4 S SXT : >2/38 R Normal [facility] Comment on above: Performed By: #### [id number] #### DAYANNA Microbiology Subsection [address] [place] [address] CBC WITH AUTO DIFFERENTIALon 11-05-2018 Basophils (Bld) [#/Vol] 0.09 10*3/uL [facility] Basophils/100 WBC (Bld) 0.3 % [facility] Eosinophils (Bld) [#/Vol] 0.01 10*3/uL [facility] Eosinophils/100 WBC (Bld) 0.0 % [facility] Erythrocyte distribution width (RBC) [Entitic vol] 15.1 % High 11.6 - 14.8 % [facility] Hematocrit (Bld) [Volume fraction] 41.8 % 36 - 46 % [facility] Hemoglobin (Bld) [Mass/Vol] 13.7 g/dL 12 - 16 g/dL [facility] Immature granulocytes (Bld) [#/Vol] 0.15 10*3/uL [facility] Immature granulocytes/100 WBC (Bld) 0.50 % [facility] Comment on above: The IG parameter is the percentage of metamyelocytes, myelocytes, and promyelocytes. Interpretation and review of laboratory results Abnormal [facility] Lymphocytes (Bld) [#/Vol] 3.13 10*3/uL [facility] Lymphocytes/100 WBC (Bld) 11.1 % [facility] MCH (RBC) [Entitic mass] 29.8 pg 25 - [address] [facility] MCHC (RBC) [Mass/Vol] 32.8 g/dL 31 - 37 g/dL [facility] MCV (RBC) [Entitic vol] 90.9 fL 78 - [address] [facility] Monocytes (Bld) [#/Vol] 2.97 10*3/uL High [facility] Monocytes/100 WBC (Bld) 10.6 % [facility] Neutrophils (Bld) [#/Vol] 21.75 10*3/uL High [facility] Neutrophils/100 WBC (Bld) 77.5 % [facility] Comment on above: Peripheral smear rev iewed manually Nucleated RBC (Bld) [#/Vol] 0.00 10*3/uL [facility] Nucleated RBC/100 WBC (Bld) [Ratio] 0.0 % [facility] Platelet mean volume (Bld) [Entitic vol] 11.4 fL 9 - 15.[address] [facility] Platelets (Bld) [#/Vol] 373 10*3/uL [facility] RBC (Bld) [#/Vol] 4.60 10*6/uL [facility] ealth WBC (Bld) [#/Vol] 28.10 10*3/uL High [facility] Comprehensive Metabolic Pane elyse 11-05-2018 Albumin [Mass/Vol] 3.7 g/dL 3.2 - 4.5 g/dL [facility] ALP [Catalytic activity/Vol] 89 U/L 40 - 140 U/L [facility] ALT [Catalytic activity/Vol] 19 U/L 14 - 65 U/L [facility] Anion gap [Moles/Vol] 13 mmol/L 10 - 2 0 mmol/L [facility] AST [Catalytic activity/Vol] 8 U/L 0 - 45 U/L [facility] Bilirubin [Mass/Vol] 0.5 mg/dL 0 - 1.3 mg/dL [facility] Calcium [Mass/Vol] 9.1 mg/dL 8.4 - 10. 2 mg/dL [facility] Chloride [Moles/Vol] 106 mmol/L 98 - 10 8 mmol/L [facility] Creatinine [Mass/Vol] 0.79 mg/dL 0.5 - 1 mg/dL [facility] GFR/1.73 sq M predicted among non-blacks MDRD (S/P/Bld) [Vol rate/Area] The eGFR should be used for monitoring renal function only and not for medication dosing. [facility] GFR/1.73 sq M.predicted CKD-EPI (S/P/Bld) [Vol rate/Area] 110 >=60 mL/min/1.[address] [facility] Glucose [Mass/Vol] 113 mg/dL High 65 - 99 mg/dL [facility] HCO3 [Moles/Vol] 20 mmol/L Low 21 - 32 mmol/L [facility] Interpretation and review of laboratory results Abnormal [facility] Potassium [Moles/Vol] 3.4 mmol/L Low 3.5 - 5.1 mmol/L [facility] Protein [Mass/Vol] 8.1 g/dL High 6 - 8 g/dL [facility] Sodium [Moles/Vol] 136 mmol/L 135 - 145 mmol/L [facility] Urea nitrogen [Mass/Vol] 7 mg/dL Low 8 - 25 mg/dL [facility] Urea nitrogen/Creatinine [Mass ratio] 8.9 mg/mg Low [facility] Lactic Acid, Plasmaon 2018 Interpretation and review of laboratory results Normal [facility] Lactate [Moles/Vol] 1.9 mmol/L 0.6 - 2 mmol/L [facility] MORPHOLOGYon 11-05-2018 RBC morphology finding Nom (Bld) Normal [facility] POC Venous Blood Gas Panel-P ulmon 11-05-2018 Base excess Calc (BldV) [Moles/Vol] -1.7 mmol/L [facility] Breath rate setting Ventilator synchronized intermittent mandatory [address] [facility] Calcium.ionized [Mass/Vol] 4.8 mg/dL 4.5 - 5.3 mg/dL [facility] Carboxyhemoglobin (BldA) [Mass fraction] 1.[address] [facility] Comment on above: Reference Ranges: [facility] Non-smokers: <1.5% Smokers: 1.5-5.0% Heavy Smokers: 5.0-9.0% Chloride [Moles/Vol] 105 mmol/L 98 - 10 8 mmol/L [facility] CO2 (BldV) [Partial pressure] 35.7 mm[Hg] Low [facility] Glucose [Mass/Vol] 117 mg/dL High 65 - 99 mg/dL [facility] HCO3 (Bld) [Moles/Vol] 22.5 mmol/L Low 24 - 28 mmol/L [facility] Hematocrit (BldA) [Volume fraction] 44.5 % 36 - 46 % [facility] Hemoglobin (Bld) [Mass/Vol] 14.5 g/dL 12 - 16 g/dL [facility] Inhaled oxygen concentration 21 % [facility] Interpretation and review of laboratory results Abnormal [facility] Lactate [Moles/Vol] 1.7 mmol/L 0.6 - 2 mmol/L [facility] Methemoglobin (BldA) [Mass fraction] 1.2 % 0 - 2 % [facility] Oxygen (BldV) [Partial pressure] 33 mm[Hg] [facility] Oxygen saturation in Venous blood 65.8 % [facility] Oxyhemoglobin (BldA) [Mass fraction] 63.8 % Low 94 - 98 % [facility] pH (BldV) 7.41 [pH] [facility] Potassium [Moles/Vol] 3.4 mmol/L Low 3.5 - 5.1 mmol/L [facility] Sodium [Moles/Vol] 137 mmol/L 135 - 145 mmol/L [facility] Specimen source Nom (Unsp spec) Not specified [facility] Tidal volume setting Ventilator [address] [facility] URINALYSISon 11-05-2018 Bacteria Auto Ql (U) Rare Abnormal None Se en /hpf [facility] Bilirubin Ql (U) Negative Negative [facility] th Clarity Refractometry automated (U) Hazy Abnormal Clear [facility] Color (U) Yellow Colorless, Yellow [facility] Epithelial cells.squamous Auto (Urine sed) [#/Area] [address] [facility] Glucose Auto test strip (U) [Mass/Vol] Negative Negative mg/dL [facility] Hemoglobin Auto test strip Ql (U) Negative Negative [facility] Interpretation and review of laboratory results Abnormal [facility] Ketones (U) [Mass/Vol] 20 Abnormal Negative mg/dL [facility] Leukocyte esterase Auto test strip Ql (U) Trace Abnormal Negative [facility] Mucus Auto (Urine sed) [#/Area] Rare None Seen, Rare /lpf [facility] Nitrite Auto test strip Ql (U) Negative Negative [facility] pH (U) 5.0 [pH] [facility] Protein (U) [Mass/Vol] 30 Abnormal Negative mg/dL [facility] Comment on above: False positive resul ts may occur in urines with large amounts of hemoglobin, pH greater than 8.0, contrast medium, or disinfectants including ammonium compounds. RBC Auto (Urine sed) [#/Area] [address] [facility] Specific gravity (U) [Rel density] 1.[address] [facility] Transitional cells Computer assisted (U) [#/Area] <[address] [facility] Urobilinogen (U) [Mass/Vol] >=4.0 Abnormal <2.0 mg/dL [facility] WBC Auto (Urine sed) [#/Area] [address] [facility] Microscopic examinat ion is performed on all urinalysis samples and only positive findings are reported. The test for blood on the chemical analytic portion of urinalysis may also be positive due to hemoglobinuria and myoglobinuria and if red blood cells are present they are quantified by microscopic examination. [facility] XR Chest 1 Viewon 11-05-2018 EXAMINATION: [...] size. Bony thorax is unremarkable. [facility] No acute cardiopulmo nary process. [employer] Workstation ID: [id number] [facility] Interface, Rad In Fu ji Speechq - 11/05/2018 6:24 PM EDT EXAMINATION: XR [...] is unremarkable. IMPRESSION: No acute cardiopulmonary process. [employer] Workstation ID: [id number] [facility] Vital Signs Date Time Vital Sign Value Performing Clinician Facility 01-11-2025 21:05-0400 Body temperature 98.2 [degF] Dr. Mimi Thomas DO Work Phone: [facility] 01-11-2025 21:05-0400 Respiratory rate 16 /min Dr. Mimi Thomas DO Work Phone: [facility] 01-11-2025 21:04-0400 Diastolic blood pressure 77 mm[Hg] Dr. Mimi Thomas DO Work Phone: [facility] 01-11-2025 21:04-0400 Heart rate 79 /min Dr. Mimi Thomas DO Work Phone: [facility] 01-11-2025 21:04-0400 Systolic blood pressure 122 mm[Hg] Dr. Mimi Thomas DO Work Phone: [facility] 01-11-2025 20:56-0400 Body height 162.[address] Mimi Thomas DO Work Phone: [facility] 01-11-2025 20:56-0400 Body mass index (BMI) [Ratio] 26.1 kg/m2 Dr. Mimi Thomas DO Work Phone: [facility] 01-11-2025 20:56-0400 Body weight 68.[address] Mimi Thomas DO Work Phone: [facility] 01-07-2025 11:24-0400 Body height 162.[address] Mimi Thomas DO Work Phone: [facility] 01-07-2025 11:24-0400 Body mass index (BMI) [Ratio] 25.7 kg/m2 Dr. Mimi Thomas DO Work Phone: [facility] 01-07-2025 11:24-0400 Body weight 68.[address] Mimi Thomas DO Work Phone: [facility] 01-07-2025 11:24-0400 Diastolic blood pressure 88 mm[Hg] Dr. Mimi Thomas DO Work Phone: [facility] 01-07-2025 11:24-0400 Systolic blood pressure 134 mm[Hg] Dr. Mimi Thomas DO Work Phone: [facility] 12-30-2024 14:13-0400 Body height 162.[address] Mimi Thomas DO Work Phone: [facility] 12-30-2024 14:13-0400 Body mass index (BMI) [Ratio] 25.7 kg/m2 Dr. Mimi Thomas DO Work Phone: [facility] 12-30-2024 14:13-0400 Body weight 68.[address] Mimi Thomas DO Work Phone: [facility] 12-30-2024 14:13-0400 Diastolic blood pressure 86 mm[Hg] Dr. Mimi Thomas DO Work Phone: [facility] 12-30-2024 14:13-0400 Systolic blood pressure 128 mm[Hg] Dr. Mimi Thomas DO Work Phone: [facility] 12-23-2024 15:26-0400 Body height 162.[address] Mimi Thomas DO Work Phone: [facility] 12-23-2024 15:26-0400 Body mass index (BMI) [Ratio] 25.6 kg/m2 Dr. Mimi Thomas DO Work Phone: [facility] 12-23-2024 15:26-0400 Body weight 67.[address] Mimi Thomas DO Work Phone: [facility] 12-23-2024 15:26-0400 Diastolic blood pressure 82 mm[Hg] Dr. Mimi Thomas DO Work Phone: [facility] 12-23-2024 15:26-0400 Systolic blood pressure 118 mm[Hg] Dr. Mimi Thomas DO Work Phone: [facility] 12-15-2024 09:36-0400 Body height 162.[address] Mimi Thomas DO Work Phone: [facility] 12-15-2024 09:36-0400 Body mass index (BMI) [Ratio] 26.1 kg/m2 Dr. Mimi Thomas DO Work Phone: [facility] 12-15-2024 09:36-0400 Body weight 68.[address] Mimi Thomas DO Work Phone: [facility] 12-15-2024 09:36-0400 Diastolic blood pressure 82 mm[Hg] Dr. Mimi Thomas DO Work Phone: [facility] 12-15-2024 09:36-0400 Systolic blood pressure 125 mm[Hg] Dr. Mmii Thomas DO Work Phone: [facility] 12-09-2024 09:30-0400 Body height 162.[address] Mimi Thomas DO Work Phone: [facility] 12-09-2024 09:26-0400 Body mass index (BMI) [Ratio] 25.4 kg/m2 Dr. Mimi Thomas DO Work Phone: [facility] 12-09-2024 09:26-0400 Body weight 67.[address] Mimi Thomas DO Work Phone: [facility] 12-09-2024 09:26-0400 Diastolic blood pressure 76 mm[Hg] Dr. Mimi Thomas DO Work Phone: [facility] 12-09-2024 09:26-0400 Systolic blood pressure 127 mm[Hg] Dr. Mimi Thomas DO Work Phone: [facility] 11-25-2024 09:57-0400 Body height 162.[address] Mimi Thomas DO Work Phone: [facility] 11-25-2024 09:57-0400 Body mass index (BMI) [Ratio] 25 kg/m2 Dr. Mimi Thomas DO Work Phone: [facility] 11-25-2024 09:57-0400 Body weight 66.[address] Mimi Thomas DO Work Phone: [facility] 11-25-2024 09:57-0400 Diastolic blood pressure 82 mm[Hg] Dr. Mimi Thomas DO Work Phone: [facility] 11-25-2024 09:57-0400 Systolic blood pressure 112 mm[Hg] Dr. Mimi Thomas DO Work Phone: [facility] 11-11-2024 09:33-0400 Body height 162.[address] Mimi Thomas DO Work Phone: [facility] 11-11-2024 09:33-0400 Body mass index (BMI) [Ratio] 24.7 kg/m2 Dr. Mimi Thomas DO Work Phone: [facility] 11-11-2024 09:33-0400 Body weight 65.[address] Mimi Thomas DO Work Phone: [facility] 11-11-2024 09:33-0400 Diastolic blood pressure 76 mm[Hg] Dr. Mimi Thomas DO Work Phone: [facility] 11-11-2024 09:33-0400 Systolic blood pressure 117 mm[Hg] Dr. Mimi Thomas DO Work Phone: [facility] 10-27-2024 09:21-0400 Body mass index (BMI) [Ratio] 24.3 kg/m2 Dr. Mimi Thomas DO Work Phone: [facility] 10-27-2024 09:21-0400 Body weight 64.[address] Mimi Thomas DO Work Phone: [facility] 10-27-2024 09:21-0400 Diastolic blood pressure 73 mm[Hg] Dr. Mimi Thomas DO Work Phone: [facility] 10-27-2024 09:21-0400 Systolic blood pressure 119 mm[Hg] Dr. Mimi Thomas DO Work Phone: [facility] 10-15-2024 09:57-0400 Body height 162.[address] Mimi Thomas DO Work Phone: [facility] 10-15-2024 09:55-0400 Body mass index (BMI) [Ratio] 23.7 kg/m2 Dr. Mimi Thomas DO Work Phone: [facility] 10-15-2024 09:55-0400 Body weight 62.[address] Mimi Thomas DO Work Phone: [facility] 10-13-2024 13:58-0400 Body mass index (BMI) [Ratio] 23.6 kg/m2 Dr. Mimi Thomas DO Work Phone: [facility] 10-13-2024 13:58-0400 Body weight 62.[address] Mimi Thomas DO Work Phone: [facility] 10-13-2024 13:58-0400 Diastolic blood pressure 71 mm[Hg] Dr. Mimi Thomas DO Work Phone: [facility] 10-13-2024 13:58-0400 Systolic blood pressure 108 mm[Hg] Dr. Mimi Thomas DO Work Phone: [facility] 10-12-2024 10:19-0400 Body height 162.6 cm Sandra Church CNP Work Phone: [facility] 10-12-2024 10:19-0400 Body mass index (BMI) [Ratio] 22.31 kg/m2 Sandra Church CNP Work Phone: [facility] 10-12-2024 10:19-0400 Body temperature 98.71 [degF] Sandra Church CNP Work Phone: [facility] 10-12-2024 10:19-0400 Body weight 58.97 kg Sandra Church CNP Work Phone: [facility] 10-12-2024 10:19-0400 Diastolic blood pressure 70 mm[Hg] Sandra Church CNP Work Phone: [facility] 10-12-2024 10:19-0400 Heart rate 98 /min Sandra Church CNP Work Phone: [facility] 10-12-2024 10:19-0400 Respiratory rate 15 /min Sandra Church CNP Work Phone: [facility] 10-12-2024 10:19-0400 SaO2% (BldA) [Mass fraction] 96 % Sandra Church PENSION MANAGER Work Phone: [facility] 10-12-2024 10:19-0400 Systolic blood pressure 107 mm[Hg] Sandra Church PENSION MANAGER Work Phone: [facility] 09-23-2024 07:54-0400 Body temperature 99.3 [degF] Kassi Ontiveros CNM Work Phone: [facility] 09-23-2024 07:54-0400 Respiratory rate 12 /min Kassi Ontiveros CNM Work Phone: [facility] 09-23-2024 07:54-0400 SaO2% (BldA) [Mass fraction] 100 % Kassi Ontiveros CNM Work Phone: [facility] 09-23-2024 07:48-0400 Diastolic blood pressure 60 mm[Hg] Kassidilcia Ontiveros CNM Work Phone: [facility] 09-23-2024 07:48-0400 Heart rate 80 /min Kassi Ontiveros CNM Work Phone: [facility] 09-23-2024 07:48-0400 Systolic blood pressure 109 mm[Hg] Kassi Ontiveros CNM Work Phone: [facility] 09-22-2024 17:21-0400 Body height 162.56 cm Kassi Ontiveros CNM Work Phone: [facility] 09-22-2024 17:21-0400 Body mass index (BMI) [Ratio] 22.8 kg/m2 Kassi Ontiveros CNM Work Phone: [facility] 09-22-2024 17:21-0400 Body weight 60.32 kg Kassi Ontiveros CNM Work Phone: [facility] 09-22-2024 12:10-0400 Body height 162.6 cm Jamari [...] [Ratio] 23.6 kg/m2 Kassi MESSER Work Phone: [facility] 09-22-2024 08:36-0400 Body weight 62.25 kg Kassi MESSER Work Phone: [facility] 09-22-2024 08:36-0400 Diastolic blood pressure 60 mm[Hg] Kassi Ontiveros CNM Work Phone: [facility] 09-22-2024 08:36-0400 Systolic blood pressure 98 mm[Hg] Kassi MESSER Work Phone: [facility] 08-26-2024 09:26-0500 Body mass index (BMI) [Ratio] 22.1 kg/m2 Kassi Ontiveros CNM Work Phone: [facility] 08-26-2024 09:26-0500 Body weight 58.51 kg Kassi Ontiveros CNM Work Phone: [facility] 08-26-2024 09:26-0500 Diastolic blood pressure 62 mm[Hg] Kassi Ontiveros CNM Work Phone: [facility] 08-26-2024 09:26-0500 Systolic blood pressure 108 mm[Hg] Kassi Ontiveros CNM Work Phone: [facility] 08-08-2024 22:31-0500 Body height 162.6 cm Jamari Delgadillo MD [facility] 08-08-2024 22:31-0500 Body mass index (BMI) [Ratio] 21.63 kg/m2 Jamari Delgadillo MD Work Phone[facility] 08-08-2024 22:31-0500 Body temperature 98.2 [degF] Jamari Delgadillo MD Work [facility] 08-08-2024 22:31-0500 Body weight 57.15 kg Jamari Delgadillo MD Work Phone[facility] 08-08-2024 22:31-0500 Diastolic blood pressure 76 mm[Hg] Jamari Delgadillo MD [facility] 08-08-2024 22:31-0500 Heart rate 76 /min Jamari Delgadillo MD Work Phone[facility] 08-08-2024 22:31-0500 Respiratory rate 18 /min Jamari Delgadillo MD Work Phone[facility] 08-08-2024 22:31-0500 SaO2% (BldA) [Mass fraction] 100 % Jamari Delgadillo MD Work Phone[facility] 08-08-2024 22:31-0500 Systolic blood pressure 118 mm[Hg] Jamari Delgadillo MD Work Phone: [facility] 07-28-2024 08:56-0500 Body mass index (BMI) [Ratio] 21.8 kg/m2 Kassi Ontiveros CNM Work Phone: [facility] 07-28-2024 08:56-0500 Body weight 57.6 kg Kassi Ontiveros CNM Work Phone: [facility] 07-28-2024 08:56-0500 Diastolic blood pressure 70 mm[Hg] Kassi Ontiveros CNM Work Phone: [facility] 07-28-2024 08:56-0500 Systolic blood pressure 112 mm[Hg] Kassi Ontiveros CNM Work Phone: [facility] 07-01-2024 09:26-0500 Body mass index (BMI) [Ratio] 21.3 kg/m2 Kassi Ontiveros CNM Work Phone: [facility] 07-01-2024 09:26-0500 Body weight 56.41 kg Kassi Ontiveros CNM Work Phone: [facility] 07-01-2024 09:26-0500 Diastolic blood pressure 61 mm[Hg] Kassi Ontiveros CNM Work Phone: [facility] 07-01-2024 09:26-0500 Systolic blood pressure 107 mm[Hg] Kassi Ontiveros CNM Work Phone: [facility] 05-29-2024 11:19-0500 Body mass index (BMI) [Ratio] 21.4 kg/m2 Kassi Ontiveros CNM Work Phone: [facility] 05-29-2024 11:19-0500 Body weight 56.81 kg Kassi Ontiveros CNM Work Phone: [facility] 05-29-2024 11:19-0500 Diastolic blood pressure 76 mm[Hg] Kassi Ontiveros CNM Work Phone: [facility] 05-29-2024 11:19-0500 Systolic blood pressure 127 mm[Hg] Kassi MESSER Work Phone: [facility] 03-07-2023 17:56-0400 Body height 162 cm Jennifer Spring Other Phone: [facility] 03-07-2023 17:56-0400 Body temperature 97.88 [degF] Jennifer Spring Other Phone: [facility] 03-07-2023 17:56-0400 Diastolic blood pressure 73 mm[Hg] Jennifer Spring Other Phone: [facility] 03-07-2023 17:56-0400 Heart rate 84 /min Jennifer Spring Other Phone: [facility] 03-07-2023 17:56-0400 Respiratory rate 16 /min Jennifer Spring Other Phone: [facility] 03-07-2023 17:56-0400 SaO2% (BldA) [Mass fraction] 97 % Jennifer Spring Other Phone: [facility] 03-07-2023 17:56-0400 Systolic blood pressure 110 mm[Hg] Jennifer Spring Other Phone: [facility] 11-20-2022 13:19-0400 Body height 162.5 cm Jennifer Spring Other Phone: [facility] 11-20-2022 13:19-0400 Body temperature 98.24 [degF] Jennifer Spring Other Phone: [facility] 11-20-2022 13:19-0400 Diastolic blood pressure 73 mm[Hg] Jennifer Spring Other Phone: [facility] 11-20-2022 13:19-0400 Heart rate 99 /min Jennifer Spring Other Phone: [facility] 11-20-2022 13:19-0400 Respiratory rate 14 /min Jennifer Spring Other Phone: [facility] 11-20-2022 13:19-0400 SaO2% (BldA) [Mass fraction] 97 % Jennifer Spring Other Phone: [facility] 11-20-2022 13:19-0400 Systolic blood pressure 115 mm[Hg] [employer]Memeoirs Other Phone: [facility] 11-01-2022 11:09-0400 Body height 162 cm JenniferMemeoirs Other Phone: [facility] 11-01-2022 11:09-0400 Body temperature 97.88 [degF] JenniferMemeoirs Other Phone: [facility] 11-01-2022 11:09-0400 Diastolic blood pressure 75 mm[Hg] [employer]oir[employer] Other Phone: [facility] 11-01-2022 11:09-0400 Heart rate 74 /min JenniferMemeoirs Other Phone: [facility] 11-01-2022 11:09-0400 SaO2% (BldA) [Mass fraction] 97 % JenniferMemeoirs Other Phone: [facility] 11-01-2022 11:09-0400 Systolic blood pressure 113 mm[Hg] JenniferMemeoirs Other Phone: [facility] 10-18-2022 16:14-0400 Body height 162.6 cm Mary Romero PENSION MANAGER Work Phone: [facility] 10-18-2022 16:14-0400 Body mass index (BMI) [Ratio] 18.88 kg/m2 Mary Romero PENSION MANAGER Work Phone: [facility] 10-18-2022 16:14-0400 Body temperature 98.49 [degF] Mary Romero PENSION MANAGER Work Phone: [facility] 10-18-2022 16:14-0400 Body weight 49.9 kg Mary Romero PENSION MANAGER Work Phone: [facility] 10-18-2022 16:14-0400 Diastolic blood pressure 71 mm[Hg] Mary Romero PENSION MANAGER Work Phone: [facility] 10-18-2022 16:14-0400 Heart rate 80 /min Mary Romero PENSION MANAGER Work Phone: [facility] 10-18-2022 16:14-0400 Respiratory rate 14 /min Mary Romero PENSION MANAGER Work Phone: [facility] 10-18-2022 16:14-0400 SaO2% (BldA) [Mass fraction] 97 % Mary Romero PENSION MANAGER Work Phone: [facility] 10-18-2022 16:14-0400 Systolic blood pressure 107 mm[Hg] Mary Romero PENSION MANAGER Work Phone: [facility] 10-18-2022 14:41-0400 Body height 162.6 cm Verenice Pumpic PA-C Work Phone: [facility] Comment on above: pt reported 10-18-2022 14:41-0400 Body mass index (BMI) [Ratio] 18.88 kg/m2 Verenice Pumpic PA-C Work Phone: [facility] 10-18-2022 14:41-0400 Body weight 49.9 kg Verenice Pumpic PA-C Work Phone: [facility] Comment on above: pt reported 01-27-2022 19:09-0400 Diastolic blood pressure 44 mm[Hg] [facility] 01-27-2022 19:09-0400 Heart rate 63 /min [facility] 01-27-2022 19:09-0400 Mean blood pressure 62 mm[Hg] [facility] 01-27-2022 19:09-0400 Respiratory rate 13 /min [facility] 01-27-2022 19:09-0400 SaO2% (BldA) [Mass fraction] 100 % [facility] 01-27-2022 19:09-0400 Systolic blood pressure 98 mm[Hg] [facility] 01-27-2022 18:00-0400 Diastolic blood pressure 61 mm[Hg] [facility] 01-27-2022 18:00-0400 Heart rate 71 /min [facility] 01-27-2022 18:00-0400 Mean blood pressure 76 mm[Hg] [facility] 01-27-2022 18:00-0400 Respiratory rate 11 /min [facility] 01-27-2022 18:00-0400 Systolic blood pressure 107 mm[Hg] [facility] 01-27-2022 17:00-0400 Diastolic blood pressure 59 mm[Hg] [facility] 01-27-2022 17:00-0400 Heart rate 78 /min [facility] 01-27-2022 17:00-0400 Mean blood pressure 72 mm[Hg] [facility] 01-27-2022 17:00-0400 SaO2% (BldA) [Mass fraction] 99 % [facility] 01-27-2022 17:00-0400 Systolic blood pressure 99 mm[Hg] [facility] 01-27-2022 16:04-0400 Body temperature 98.24 [degF] [facility] 01-27-2022 16:04-0400 Heart rate 73 /min [facility] 01-27-2022 16:04-0400 Respiratory rate 18 /min [facility] 12-31-2021 18:37-0400 Body temperature 97.88 [degF] [facility] 12-31-2021 18:37-0400 Diastolic blood pressure 64 mm[Hg] [facility] 12-31-2021 18:37-0400 Heart rate 79 /min [facility] 12-31-2021 18:37-0400 Respiratory rate 18 /min [facility] 12-31-2021 18:37-0400 SaO2% (BldA) [Mass fraction] 99 % [facility] 12-31-2021 18:37-0400 Systolic blood pressure 110 mm[Hg] [facility] 11-06-2020 02:56-0400 Diastolic blood pressure 71 mm[Hg] [employer] Other Phone: [facility] 11-06-2020 02:56-0400 Heart rate 72 /min [employer] Other Phone: [facility] 11-06-2020 02:56-0400 Respiratory rate 16 /min [employer] Other Phone: [facility] 11-06-2020 02:56-0400 SaO2% (BldA) [Mass fraction] 98 % [employer] Other Phone: [facility] 11-06-2020 02:56-0400 Systolic blood pressure 110 mm[Hg] [employer] Other Phone: [facility] 02-05-2020 09:13-0400 BP Diastolic 77 mm[Hg] [facility] 02-05-2020 09:13-0400 BP Systolic 115 mm[Hg] [facility] 02-05-2020 09:13-0400 Pulse (Heart Rate) 84 /min [facility] 02-05-2020 09:11-0400 BMI (Body Mass Index) 18.02 kg/m2 [facility] 02-05-2020 09:11-0400 [facility] 47[facility]63 [facility] 02-05-2020 09:11-0400 Height 162.6 cm karen [facility] 02-05-2020 09:11-0400 Pulse Oximetry 98 % Julieth [facility] 02-05-2020 09:11-0400 Respiratory Rate 16 /min [facility] 12-31-2019 11:07-0400 BMI (Body Mass Index) 18.28 kg/m2 [facility] 12-31-2019 11:07-0400 Body Temperature 98.2 [degF] [facility] 12-31-2019 11:07-0400 Body weight 48.31 kg [facility] 12-31-2019 11:07-0400 BP Diastolic 65 mm[Hg] [facility] 12-31-2019 11:07-0400 BP Systolic 100 mm[Hg] [facility] 12-31-2019 11:07-0400 Height 162.6 cm [facility] 12-31-2019 11:07-0400 Pulse (Heart Rate) 66 /min [facility] 12-31-2019 11:07-0400 Pulse Oximetry 96 % [facility] 12-31-2019 11:07-0400 Respiratory Rate 16 /min [facility] 12-29-2019 08:50-0400 BP Diastolic 76 mm[Hg] [facility] 08:50-0400 BP Systolic 100 mm[Hg] [facility] 12-29-2019 08:49-0400 Pulse (Heart Rate) 96 /min Chintan Solhmy [facility] 12-29-2019 08:38-0400 BMI (Body Mass Index) 18.4 kg/m2 Chintan Solhmy [facility] 12-29-2019 08:38-0400 Body weight 48.63 kg Chintan Solhmy [facility] 12-29-2019 08:38-0400 Height 162.6 cm Chintan Solhmy [facility] 12-29-2019 08:38-0400 Pulse Oximetry 99 % Chintan Ling [facility] 12-23-2019 17:24-0400 BP Diastolic 58 mm[Hg] Kenn [facility] 12-23-2019 17:24-0400 BP Systolic 104 mm[Hg] [facility] [...] 19:15-0400 BMI (Body Mass Index) 18.37 kg/m2 [facility] [place], [place] 12-16-2019 19:15-0400 Body Temperature 98.01 [degF] [facility] 12-16-2019 19:15-0400 Body weight 48.53 kg [place], [place] 12-16-2019 19:15-0400 BP Diastolic 90 mm[Hg] [facility] [place] 12-16-2019 19:15-0400 BP Systolic 145 mm[Hg] [facility] [place] 12-16-2019 19:15-0400 Height 162.6 cm [place], [place] 12-16-2019 19:15-0400 Pulse (Heart Rate) 70 /min [facility] [place] 12-16-2019 19:15-0400 Pulse Oximetry 100 % Ric [place], [place] 12-16-2019 19:15-0400 Respiratory Rate 16 /min [facility] 03-02-2019 08:44-0400 BMI (Body Mass Index) 19.66 kg/m2 Sergio [facility] 03-02-2019 08:44-0400 Body Temperature 98.2 [degF] [facility] 03-02-2019 08:44-0400 Body weight 50.35 kg Sergio [facility] 03-02-2019 08:44-0400 BP Diastolic 61 mm[Hg] [facility] 03-02-2019 08:44-0400 BP Systolic 101 mm[Hg] [facility] 03-02-2019 08:44-0400 Pulse (Heart Rate) 66 /min [facility] 02-24-2019 09:16-0400 BP Diastolic 64 mm[Hg] [facility] 02-24-2019 09:16-0400 BP Systolic 106 mm[Hg] [facility] 02-24-2019 09:16-0400 Pulse (Heart Rate) 79 /min [facility] 02-24-2019 09:16-0400 Pulse Oximetry 100 % [facility] 02-24-2019 09:16-0400 Respiratory Rate 15 /min [facility] 02-24-2019 08:55-0400 Body Temperature 97.9 [degF] [facility] 02-24-2019 07:45-0400 BMI (Body Mass Index) 19.04 kg/m2 [facility] 02-24-2019 07:45-0400 Body weight 48.76 kg [facility] 02-24-2019 07:45-0400 Height 160 cm [facility] 02-04-2019 13:03-0400 BMI (Body Mass Index) 18.3 kg/m2 [facility] 02-04-2019 13:03-0400 Body Temperature 98.6 [degF] [facility] 02-04-2019 13:03-0400 Body weight 48.17 kg [facility] 02-04-2019 13:03-0400 BP Diastolic 70 mm[Hg] [facility] 02-04-2019 13:03-0400 BP Systolic 115 mm[Hg] [facility] 02-04-2019 13:03-0400 Height 162.3 cm [facility] 02-04-2019 13:03-0400 Pulse (Heart Rate) 90 /min [facility] 02-04-2019 13:03-0400 Pulse Oximetry 97 % Sergio Gray [facility] 01-28-2019 03:54-0400 BP Diastolic 53 mm[Hg] Jeffrey Colon [facility] 01-28-2019 03:54-0400 BP Systolic 101 mm[Hg] Jeffrey Colon [facility] 01-28-2019 03:54-0400 Pulse (Heart Rate) 56 /min Jeffrey Colon [facility] 01-28-2019 03:54-0400 Pulse Oximetry 99 % Jeffrey Colon [facility] 01-28-2019 03:54-0400 Respiratory Rate 16 /min Jeffrey Colon [facility] 01-27-2019 23:04-0400 BMI (Body Mass Index) 18.37 kg/m2 Jeffrey Colon [facility] 01-27-2019 23:04-0400 Body weight 48.53 kg Jeffrey Colon [facility] 01-27-2019 23:04-0400 Height 162.6 cm Jeffrey Colon [facility] 01-27-2019 22:58-0400 Body Temperature 98.29 [degF] Jeffrey Colon [facility] 11-19-2018 11:27-0400 BMI (Body Mass Index) 18.71 kg/m2 [facility] 11-19-2018 11:27-0400 Body Temperature 98.4 [degF] [facility] 11-19-2018 11:27-0400 BP Diastolic 72 mm[Hg] [facility] 11-19-2018 11:27-0400 BP Systolic 109 mm[Hg] [facility] 11-19-2018 11:27-0400 Height 162.6 cm [facility] 11-19-2018 11:27-0400 Pulse (Heart Rate) 82 /min [facility] 11-19-2018 11:27-0400 Pulse Oximetry 98 % [facility] 11-19-2018 11:27-0400 Respiratory Rate 18 /min [facility] 11-19-2018 11:27-0400 Weight 49.44 kg [facility] 11-09-2018 08:45-0400 Respiratory Rate 12 /min [facility] 11-09-2018 08:39-0400 Body Temperature 98.2 [degF] [facility] 11-09-2018 08:39-0400 BP Diastolic 58 mm[Hg] [facility] 11-09-2018 08:39-0400 BP Systolic 96 mm[Hg] [facility] 11-09-2018 08:39-0400 Pulse (Heart Rate) 60 /min [facility] 11-09-2018 08:39-0400 Pulse Oximetry 98 % [facility] 11-05-2018 17:40-0400 BMI (Body Mass Index) 20.4 kg/m2 [facility] 11-05-2018 17:40-0400 Body weight 53.9 kg [facility] 11-05-2018 17:40-0400 Height 162.6 cm [facility] 11-05-2018 14:39-0400 Respiratory rate 0 /min [facility] Encounters Encounter Date Encounter Type Care Provider Facility Start: 01-11-2025 End: 01-11-[address] [facility] Start: 01-11-2025 End: 01-11-2025 Patient encounter procedure Yvrose Mcmillan [facility] Work Phone: Start: 01-07-2025 End: 01-07-[address] Mimi Thomas DO -[facility] Work Phone: Start: 01-07-2025 End: 01-07-[address] Mimi Thomas DO Work Phone: -[facility] Start: 12-30-2024 End: 12-30-[address] Mimi Thomas DO -[facility] Work Phone: Start: 12-30-2024 End: 12-30-[address] Mimi Thomas DO Work Phone: -[facility] Start: 12-23-2024 End: 12-23-[address] Mimi Thomas DO -[facility] Work Phone: Start: 12-23-2024 End: 12-23-[address] Mimi Thomas DO Work Phone: -[facility] Start: 12-15-2024 End: 12-15-[address] Mimi Thomas DO Work Phone: -Laboratory Specimen Start: 12-15-2024 End: 12-15-[address] Leonor Phillips MD -Laboratory Specimen Work Phone: Start: 12-15-2024 End: 12-15-[address] Leonor Phillips MD -[facility] Work Phone: Start: 12-15-2024 End: 12-15-[address] Mimi Thomas DO Work Phone: [facility] Work Phone: Start: 12-15-2024 End: 12-15-2024 ambulatory No Primary Care Physician Facility:[facility] Start: 12-11-2024 End: 12-11-[address] Mimi Thomas DO Work Phone: [facility] Work Phone: Start: 12-11-2024 End: 12-11-[address] Leonor Phillips MD -[facility] Work Phone: Start: 12-11-2024 End: 12-11-2024 ambulatory No Primary Care Physician Facility:[facility] Start: 12-09-2024 End: 12-09-[address] Leonor Phillips MD -[facility] Work Phone: Start: 12-09-2024 End: 12-09-[address] Mimi Thomas DO Work Phone: [facility] Work Phone: Start: 11-25-2024 End: 11-25-2024 Patient encounter procedure Ramya Voss NP-C -[facility] Work Phone: Start: 11-25-2024 End: 11-25-[address] Mimi Thomas DO Work Phone: [facility] Work Phone: Start: 11-25-2024 End: 11-25-2024 ambulatory Ramya Voss [employer] Facility:[facility] Start: 11-11-2024 End: 11-11-[address] Mimi Thomas DO -[facility] Work Phone: Start: 11-11-2024 End: 11-11-2024 ambulatory Dr. Mimi Thomas DO Work Phone: [facility] Work Phone: Start: 10-27-2024 End: 10-27-2024 Patient encounter procedure Yvrose Mcmillan CNM -[facility] Work Phone: Start: 10-27-2024 End: 10-27-2024 ambulatory No Primary Care Physician Facility:[facility] Start: 10-15-2024 End: 10-15-[address] Mimi Thomas DO Work Phone: [facility] Work Phone: Start: 10-15-2024 End: 10-15-2024 Patient encounter procedure Ramya Voss NP-C -Laboratory, Specimen Work Phone: Start: 10-15-2024 End: 10-15-2024 Patient encounter procedure Ramya Voss BILLET HEATER-C -[facility] Work Phone: Start: 10-15-2024 End: 10-15-2024 ambulatory No Primary Care Physician Facility:[facility] Start: 10-15-2024 End: 10-15-2024 ambulatory No Primary Care Physician Facility:[facility] Start: 10-13-2024 End: 10-13-[address] Mimi Thomas DO Work Phone: [facility] Work Phone: Start: 10-13-2024 End: 10-13-[address] Leonor Phillips MD -[facility] Work Phone: Start: 10-12-2024 End: 10-12-2024 Office outpatient visit 15 minutes Sandra Church [facility] Work Phone: [facility] Comment on above: Sore throat (Primary Dx); Viral pharyngitis Start: 10-12-2024 End: 10-13-2024 ambulatory SANDRA AYALA [facility] Start: 10-08-2024 End: 10-08-2024 Emergency department patient visit ALBAARABELLA QING [facility] Start: 09-23-2024 Non-patient / Non-visit Dr. Maylin Phillips MD -[facility] Start: 09-22-2024 Non-patient / Non-visit Dr. Olman Thomas DO -[facility] Start: 09-22-2024 ambulatory Mimi Cummings cility:[facility] Start: 09-22-2024 End: 09-23-2024 Evaluation and management of inpatient Dr. Mimi Thomas DO [facility] Work Phone: Start: 09-22-2024 End: 09-22-2024 Emergency department patient visit Jamari Delgadillo MD Work Phone: [facility] Emergency Department Comment on above: Acute pyelonephritis (Primary Dx) Start: 09-22-2024 End: 09-22-2024 Patient encounter procedure Ramya Voss NP-C -[facility] Work Phone: Start: 09-22-2024 End: 09-22-2024 ambulatory Ramya Voss BILLET HEATER Facility:[facility] Start: 08-26-2024 End: 08-26-[address] Leonor Phillips MD -[facility] Work Phone: Start: 08-26-2024 End: 08-26-2024 ambulatory Leonor Phillips Facility:[facility] Start: 08-08-2024 End: 08-09-2024 Emergency department patient visit Jamari Delgadillo MD Work Phone: [facility] Emergency Department Comment on above: Abdominal pain, left upper quadrant (Primary Dx) Start: 08-06-2024 End: 08-06-2024 ambulatory MICHAELKAYLAH GUARDADOADAMSON [facility] Start: 07-28-2024 End: 07-28-2024 ambulatory Mimi Thomas Facility:[facility] Start: 07-28-2024 End: 07-28-[address] Mimi Thomas DO -[facility] Work Phone: Start: 07-01-2024 End: 07-01-2024 Patient encounter procedure Ramya Voss BILLET HEATER-C -[facility] Work Phone: Start: 07-01-2024 End: 07-01-2024 ambulatory Ramya Voss NP Facility:[facility] Start: 06-19-2024 End: 06-19-2024 Patient encounter procedure Kassi Weston CNM -Lab, [facility] Start: 06-19-2024 End: 06-19-2024 ambulatory Kassi Ontiveros Facility:[facility] Start: 05-29-2024 End: 05-29-2024 Patient encounter procedure Kassi Ontiveros CNM -Laboratory, Specimen Work Phone: Start: 05-29-2024 End: 05-29-2024 Patient encounter procedure Kassi Ontiveros CNM -[facility] Work Phone: Start: 05-29-2024 End: 05-29-2024 ambulatory Kassi Ontiveros Facility:[facility] Start: 05-29-2024 End: 05-29-2024 ambulatory Kassi Pitcairn Facility:[facility] Start: 04-14-2024 ambulatory Mercedez Harris y:[facility] Start: 03-18-2024 End: 03-18-2024 [facility] Start: 03-15-2024 End: 03-15-2024 Emergency department patient visit PHYSICIAN [facility] Start: 03-07-2023 End: 03-07-2023 Emergency department patient visit Kevin Almeida [facility] Start: 11-20-2022 End: 11-20-2022 Emergency department patient visit Kevin Almeida Facility:[id number] Start: 11-01-2022 End: 11-01-2022 Emergency department patient visit Jia Lindsay [facility] Start: 10-18-2022 End: 10-18-2022 Office outpatient visit 25 minutes Mary Romero CNP Work Phone: [facility] Comment on above: Acute vaginitis (Melvina maddison Dx); Vaginal odor; Screening examination for STD (sexually transmitted disease); Electronic cigarette use Start: 10-18-2022 End: 10-18-2022 Telemedicine consultation with patient Verenice Eleazar Sinha PA-C Work Phone: [facility] Urgent [facility] [place] [facility] Telemedicine Comment on above: Vaginal Odor (Primar y Dx) Start: 09-25-2022 End: 09-25-2022 Emergency department patient visit Kevin Almeida Facility:[id number] Start: 02-28-2022 ambulatory Ms. Jennifer Haley Facility:[id number] Start: 01-27-2022 End: 01-27-2022 Emergency department patient visit Urielarabella Ro Lauri [facility] Start: 12-31-2021 End: 12-31-2021 Emergency department patient visit Ji Grimes [facility] Start: 02-10-2021 ambulatory JENNIFER HALEY [facility] Ambulatory Start: 11-06-2020 End: 11-06-2020 Emergency department patient visit Arianna Traylor ED 03 Start: 02-05-2020 End: 02-09-2020 ambulatory JULIETH WATTERS [facility] Start: 02-05-2020 End: 02-05-2020 Office outpatient new 45 minutes Julieth Watters Work Phone: [facility] Neurological Physicians Comment on above: Syncope, unspecified syncope type Start: 01-01-2020 End: 01-01-2020 Subsequent hospital visit by physician Chintan Ling Work Phone: [facility] V[facility] Phys[facility] Comment on above: Syncope, unspecified syncope type; Palpitations Start: 12-31-2019 End: 12-31-2019 Office outpatient visit 15 minutes Jennifer SingletonKajal Haley Work Phone: [facility] Primary Care Physicians Comment on above: Syncope, unspecified syncope type (Primary Dx) Start: 12-29-2019 End: 12-29-2019 Office outpatient new 45 minutes Kenn Valdez Work Phone: [facility] Comment on above: Syncope, unspecified syncope type (Primary Dx); Palpitations Start: 12-24-2019 End: 12-24-2019 Documentation procedure Brooke Caruso [facility] Prima ry Care Physicians Comment on above: ED Follow-up Start: 12-23-2019 End: 12-23-2019 Emergency department patient visit Kenn Valdez Work Phone: [facility] Emergency Department Comment on above: Syncope, unspecified syncope type (Primary Dx) Start: 12-16-2019 End: 12-16-2019 Emergency department [facility] Start: 12-16-2019 End: 12-16-2019 Emergency department patient visit Ric Ellen Lantigua Work Phone: [facility] ED Comment on above: Syncope and collapse (Primary Dx); Contusion of scalp, initial encounter Start: 03-02-2019 End: 03-02-2019 Office outpatient visit 25 minutes Sergio Gray Work Phone: [facility] Surgical Specialists Comment on above: Chronic gastritis wi thout bleeding, unspecified gastritis type (Primary Dx); GERD without esophagitis; Biliary dyskinesia Start: 02-24-2019 End: 02-24-2019 Subsequent hospital visit by physician Sergio Gray Work Phone: [facility] Periop Comment on above: Abdominal pain; BRBPR (bright red blood per rectum); Weight loss; Nausea; Abdominal pain, unspecified abdominal location; BRBPR (bright red blood per rectum); Weight loss; Nausea Start: 02-11-2019 End: 02-11-2019 Subsequent hospital visit by physician Sergio Gray Work Phone: [facility] Nuclear Medicine Comment on above: Abdominal pain, unsp ecified abdominal location; Weight loss; Nausea Start: 02-04-2019 End: 02-04-2019 Office outpatient new 45 minutes Sergio Gray Work Phone: [facility] Comment on above: Abdominal pain, unsp ecified abdominal location (Primary Dx); BRBPR (bright red blood per rectum); Weight loss; Nausea Start: 01-27-2019 End: 01-28-2019 Emergency department patient visit Jeffrey Colon Work Phone: [facility] Emergency Department Comment on above: Acute UTI (Primary D x); Acute GI bleeding Start: 11-19-2018 End: 11-19-2018 Office outpatient new 20 minutes Jennifer Haley Work Phone: [facility] Primary Care Physicians Comment on above: Sepsis, due to unspe cified organism (HCC) (Primary Dx); Environmental allergies; Body mass index (BMI) of 5th to less than 85th percentile for age in patient 18 years to less than 21 years of age Start: 11-11-2018 End: 11-11-2018 Patient Outreach Kathrin Aguilar [facility] Primary Care Physicians Comment on above: Transition Of Care ( Chart review - initial) Start: 11-05-2018 End: 11-09-2018 Evaluation and management of inpatient Emily Nickerson Work Phone: [facility] Med Surg Comment on above: Acute UTI [...] 10-12-2024 Heterophile antibodi es screen Sandra Church PENSION MANAGER Work Phone: Start: 10-12-2024 Iadna streptococcus group a amplified probe tq Sandra Church PENSION MANAGER Work Phone: Start: 09-23-2024 Ultrasound scan for growth Kassi Ontiveros [facility] Work Phone: Start: 09-23-2024 Blood count complete auto&auto difrntl wbc Dr. Mimi Thomas DO Work Phone: Comment on above: Previous reported re sult: 1.5 %Edited by: JOSEPH on 09/23/24:0809 Start: 09-23-2024 Flow cytometry cell surf marker techl only 1st Dr. Mimi Thomas DO Work Phone: Comment on above: Previous reported re sult: 71.0 %Edited by: JOSEPH on 09/23/24:0809 Previous reported re sult: 10.7 %Edited by: [email or web address] on 09/23/24:0809 Previous reported re sult: 0.3 [...] Phone: Start: 05-29-2024 Urine culture Kassi Manning ritaeastonel [facility] Work Phone: Start: 12-23-2019 Choriogonadotropin ( [...] Ric Lantigua Work Phone: Start: 02-24-2019 Colonoscopy [employer] Work Phone: Start: 02-24-2019 Cul bact aerobic add l meths definitive ea isol [employer] Work Phone: Start: 02-24-2019 Choriogonadotropin ( test) [Presence] in Urine [employer] Work Phone: Start: 02-24-2019 Endoscopy of esophagus [employer] Work Phone: Start: 02-11-2019 Hepatobil syst imag inc gb w/pharma intervenj [employer] Work Phone: Start: 01-28-2019 Ct abdomen & [...] blood count with white cell differential, automated SSN [employer]issette [email or web address] Work Phone: Start: 11-09-2018 Complete blood count with white cell differential, manual Brissa [email or web address] Work Phone: Start: 11-08-2018 Ct abdomen & pelvis w/contrast material Brissa Dumont Work Phone: Start: 11-08-2018 Complete blood count with white cell differential, automated [employer] Carlos [email or web address] Work Phone: Start: 11-08-2018 Complete blood count with white cell differential, manual [email or web address] Work Phone: Start: 11-07-2018 Complete blood count with white cell differential, automated Alaa [employer] Work Phone: Start: 11-07-2018 Complete blood count [...] 11-06-2018 Manual Differential panel - Blood Alaa Alahmad Work Phone: Start: 11-06-2018 Red blood cell morphology Alaa Alahmad Work Phone: Start: 11-06-2018 Basic metabolic 2000 panel - Serum or Plasma Josey Ellis [employer] Work Phone: Start: 11-06-2018 Complete blood count with white cell differential, automated Josey Ellis [employer] Work Phone: Start: 11-06-2018 Complete blood count with white cell differential, manual Josey Ellis [employer] Work Phone: Start: 11-06-2018 Magnesium [Mass/volu me] in Serum or Plasma Magda Crisostomo Work Phone: Start: 11-06-2018 Red blood cell morphology [employer] Work Phone: Start: 11-06-2018 Ct abdomen & pelvis w/o contrast material Magda Hutsonley Kranthi Work Phone: Start: 11-06-2018 Bacteria identified in [...] H/O splenectomy History of splenectomy Kassi Ontiveros [facility] Work Phone: Comment on above: 12yo, [...] - Td) DTaP/Tdap/Td vaccine (7 - Td) [place], [place] Start: 04-01-2027 Tetanus vaccination [facility] Start: 02-22-2025 Influenza vaccination Influenza Vaccine (Season Ended) [facility] Start: 01-22-2025 Influenza vaccination Flu vaccine (Season Ended) [facility] Start: 01-11-2025 Nonstress test [facility] Start: 01-11-2025 Obstetric monitoring [facility] Start: 01-11-2025 Vital signs measurements [facility] Start: 01-11-2025 [facility] Start: 01-11-2025 Patient discharge [facility] Start: 12-15-2024 Streptococcus agalactiae [Presence] in Unspecified specimen by Organism specific culture [facility] Start: 12-15-2024 Group B Streptococcus Culture Group B Streptococcus Culture [facility] Start: 11-25-2024 CBC W Auto Differential panel - Blood [facility] Start: 10-08-2024 Tdap Vaccine during Tdap Vaccine during [facility] Start: 09-23-2024 Application of intermittent pneumatic compression device [facility] Start: 09-23-2024 Patient discharge [facility] Start: 09-23-2024 [facility] Start: 09-22-2024 Admission procedure [facility] Start: 09-22-2024 Nonstress test [facility] Start: 09-22-2024 Obstetric monitoring [facility] Start: 09-22-2024 Vital signs measurements [facility] Start: 09-22-2024 [facility] Start: 02-23-2024 COVID-19 Vaccine ( season) COVID-19 Vaccine ( season) [facility] Start: 01-23-2024 Influenza vaccination Flu vaccine (#1) [facility] Start: 10-19-2023 Screening for Chlamydia trachomatis Chlamydia Screening [facility] Start: 02-22-2023 Influenza vaccination Sequential Influenza Vaccine (Season Ended) [facility] Start: 02-19-2021 Screening for malignant neoplasm of cervix Pap smear [facility] Start: 07-04-2020 End: 07-04-2020 Office Visit 07/04/2020 Office Visit Primary Care Jennifer Haley CNP [address] [place] [address] [phone] [facility] Primary Care Physicians Start: 03-08-2020 End: 03-08-2020 Office Visit 03/08/2020 Office Visit Cardiology Chintan Ling MD [address] [place] [address] [phone] [facility] Start: 02-23-2020 Influenza vaccination Flu vaccine (Season Ended) [place] Start: 02-23-2020 Influenza vaccination given Sequential Influenza Vaccine (#1) [facility] Start: 02-05-2020 Screening for Chlamydia trachomatis Chlamydia Screening [facility] Start: 02-05-2020 End: 02-05-2020 Office Visit 02/05/2020 Office Visit Neurology Julieth Watters MD [address] [address] [phone] [facility] Start: 01-01-2020 End: 01-01-2020 Appointment 01/01/2020 Appointment Cardiology Chintan Ling MD [address] [place] [address] [phone] [facility] Start: 12-31-2019 End: 12-31-2019 Office Visit 12/31/2019 Office Visit Primary Care Jennifer Haley CNP [address] [place] [address] [phone] [facility] Start: 11-08-2019 Depression screening using PHQ-9 (Patient Health Questionnaire 9) score [facility] Start: 04-01-2019 End: 04-01-2019 Office Visit 04/01/2019 Office Visit General Surgery Sergio Gray MD [address] [address] [phone] [facility] Start: 02-24-2019 End: 02-24-2019 Hospital Encounter [facility] Per[facility] Comment on above: Abdominal pain; BRBPR (bright red blood per rectum); Weight loss; Nausea ESOPHAGOGASTRODUODEN OSCOPY Start: 02-22-2019 Influenza vaccination given [facility] Start: 02-19-2019 Pneumococcal 0-49 years Vaccine (1 of 2 - PCV) Pneumococcal 0-49 years Vaccine (1 of 2 - PCV) Armond Diego [facility] Start: 02-19-2019 Pneumococcal Vaccine: Ped or At-Risk (1 of 2 - PCV) Pneumococcal Vaccine: Ped or At-Risk (1 of 2 - PCV) [facility] Start: 12-22-2018 End: 12-22-2018 Office Visit 12/22/2018 Office Visit Primary Care Jennifer Haley CNP [address] [place] [address] [facility] Start: 11-19-2018 End: 11-19-2018 Office Visit 11/19/2018 Office Visit Primary Care Jennifer Haley CNP [address] [place] [address] [phone] [facility] Start: 04-01-2018 History and physical examination, annual for health maintenance Wellness Visit [facility] Start: 02-19-2018 Hepatitis C antibody, confirmatory test Hepatitis C Screening [facility] Start: 02-19-2018 Hepatitis C screening [facility] Start: 04-29-2017 Meningococcal B vaccine (2 of 2 - Increased Risk Bexsero 2-dose series) Meningococcal B vaccine (2 of 2 - Increased Risk Bexsero 2-dose series) [place] Start: 04-29-2017 Meningococcal B vaccine (2 of 4 - Increased Risk Bexsero 2-dose series) Meningococcal B vaccine (2 of 4 - Increased Risk Bexsero 2-dose series) [facility] Start: 04-29-2017 Meningococcal B vaccine (2 [...] Center Start: 02-19-2015 HIV screening [facility] Start: 2012 Depression Screen Depression Screen [facility] Start: 02-19-2011 HPV vaccine (1 - 2-dose series) HPV vaccine (1 - 2-dose series) [place] Start: 02-19-2006 Pneumococcal 0-64 years Vaccine (1 of 3 - PCV13) Pneumococcal 0-64 years Vaccine (1 of 3 - PCV13) [place] Start: 02-19-2006 Pneumococcal Vaccine: Ped or At-Risk (1 - PCV) Pneumococcal Vaccine: Ped or At-Risk (1 - PCV) [facility] Start: 2004 Varicella vaccine (2 of 2 - 2-dose childhood series) Varicella vaccine (2 of 2 - 2-dose childhood series) [facility] Start: 02-19-2003 History and physical examination, annual for health maintenance Wellness Visit [facility] Start: 2000 COVID-19 Vaccine (#1) COVID-19 Vaccine (#1) [facility] Start: 2000 Depression screening using PHQ-9 (Patient Health Questionnaire 9) score Depression Screening (PHQ9) [facility] Start: 2000 Screening for Chlamydia trachomatis Chlamydia Screening [facility] Start: 2000 Screening for malignant neoplasm of cervix Pap Smear [facility] 12 lead ECG ECG 12 Lead ECG Routine Syncope, unspecified syncope type Ordered: 12/29/[address] [facility] Comment on above: Ordered: 12/29/2019 Bacteria identified Cx Nom (Bld) [facility] Beta-hemolytic Strep tococcus culture [facility] End: 09-22-2024 Blood Culture 1 Bon Vertical Acuity Comment on above: One Time for 1 Occurrences starting 06/2024 until 09/22/2024 End: 12-29-2020 Cardiac event recording Cardiac event monitor Cardiac Services Routine Syncope, unspecified syncope type Palpitations 1 Occurrences starting 12/29/2019 until 12/29/[address] [facility] Comment on above: 1 Occurrences starting 12/29/2019 until 12/29/2020 End: 01-01-2020 Cardiac event recording Cardiac event monitor Cardiac Services Routine Syncope, unspecified syncope type Palpitations Once for 1 Occurrences starting 01/01/2020 until 01/01/[address] [facility] Comment on above: Once for 1 Occurrences starting 01/01/20 until 01/01/2020 Cast care: wet Wet Preparation Microbiology Routine Vaginal odor Screening examination for STD (sexually transmitted disease) 10/18/2022 4:33 PM EDT [facility] CBC W Auto Different ial panel - Blood [facility] End: 12-16-2019 CT Head WO Contrast CT Head WO Contrast Imaging STAT Once for 1 Occurrences starting 12/16/2019 until 12/16/2019 [facility] [place] Comment on above: Once for 1 Occurrences starting 12/16/19 until 12/16/2019 CT Head WO Contrast CT Head WO C ontrast Imaging STAT 12/16/2019 8:10 PM EDT [employer] [place], [place] End: 09-22-2024 Culture, Blood 2 Bon [facility] Comment on above: One Time for 1 Occurrences starting 06/2024 until 09/22/2024 End: 09-22-2024 Culture, Urine Bon [facility] Comment on above: Once for 1 Occurrences starting 09/23/19 25 until 09/22/2024 End: 02-05-2021 EEG (STANDARD) EEG (Standard) Neurology Routine Syncope, unspecified syncope type 1 Occurrences starting 02/05/2020 until 02/05/[address] [facility] Comment on above: 1 Occurrences starting 02/05/2020 until 02/05/2021 EKG 12 Lead EKG 12 Lead ECG Routine 12/16/2019 7:25 PM EDT [facility] Erythrocyte mean cor puscular volume determination [facility] End: 01-27-2019 Gastrointestinal pathogens DNA and RNA panel - Stool by [facility] with non-probe detection Stool/GI PCR Panel Microbiology Routine Once for 1 Occurrences starting 01/27/2019 until 01/27/[address] [facility] Comment on above: Once for 1 Occurrences starting 01/28/20 19 until 01/27/2019 Hematocrit [Volume F raction] of Blood [facility] Hemoglobin [Mass/volume] in Blood [facility] Leukocytes [#/volume] in Blood [facility] Mean corpuscular hem oglobin concentration determination [facility] Mean corpuscular hem oglobin determination [facility] Measurement of gluco se 2 hours after glucose challenge for glucose tolerance test [facility] End: 02-05-2021 MR Brain With And Without Contrast MR Brain With And Without Contrast Imaging Routine Syncope, unspecified syncope type 1 Occurrences starting 02/05/2020 until 02/05/[address] [facility] Comment on above: 1 Occurrences starting 02/05/2020 until 02/05/2021 End: 10-19-2023 Neisseria gonorrhoeae nucleic acid detection Chlamydia/Gonorrhoea e Amplified RNA Microbiology Routine Vaginal odor Screening examination for STD (sexually transmitted disease) 1 Occurrences starting 10/18/2022 until 10/19/[address] [facility] Work Phone: Comment on above: 1 Occurrences starting 10/18/2022 until 10/19/2023 Neisseria gonorrhoea e nucleic acid detection Chlamydia/Gonorrhoea e Amplified RNA Microbiology Routine Vaginal odor Screening examination for STD (sexually transmitted disease) 10/18/2022 4:33 PM EDT [facility] Neutrophil count [facility] Neutrophil percent d ifferential count [facility] End: 02-05-2020 NM Hepatobiliary With Ejection Fraction NM Hepatobiliary With Ejection Fraction Imaging Routine Abdominal pain, unspecified abdominal location Weight loss Nausea 1 Occurrences starting 02/04/2019 until 02/05/[address] [facility] Comment on above: 1 Occurrences starting 02/04/2019 until 02/05/2020 Patient Education Kick Counts ED False Labor OB Triage: Return to Hospital or Notify Physician if you Experience: [facility] Work Phone: Platelets [#/volume] in Blood [facility] End: 11-08-2018 Procalcitonin [Mass/Vol] Procalcitonin Microbiology Routine Once for 1 Occurrences starting 11/08/2018 until 11/08/[address] [facility] Comment on above: Once for 1 Occurrences starting 11/09/19 19 until 11/08/2018 Procalcitonin [Mass/Vol] Procalc itonin Microbiology Routine 11/08/2018 2:55 PM EDT [facility] Procedure on tissue specimen [facility] Comment on above: Once for 1 Occurrences starting 02/25/20 19, 1 completed Red blood cell count [facility] Red cell distributio n width determination [facility] Serologic test for syphilis [facility] Streptococcus agalac tiae [Presence] in Unspecified specimen by Organism specific culture [facility] Ultrasound scan for growth [facility] Gallbladder [facility] End: 09-22-2024 Kidney [facility] Comment on above: Once for 1 Occurrences starting 09/23/19 until 09/22/2024 [facility] Immunizations Immunization Date Immunization Notes Care Provider [facility] 10-27-2024 tetanus toxoid, redu olga diphtheria toxoid, and acellular pertussis vaccine, adsorbed Dr. Mimi Thomas DO Work Phone: [facility] 04-01-2017 hepatitis A vaccine, pediatric/adolescent dosage, 2 dose schedule [facility] 04-01-2017 influenza, injectabl e, quadrivalent, preservative free [facility] 04-01-2017 meningococcal B vacc ine, recombinant, OMV, adjuvanted [facility] 04-01-2017 tetanus toxoid, redu olga diphtheria toxoid, and acellular pertussis vaccine, adsorbed [facility] 04-01-2017 influenza virus vacc ine, unspecified formulation Sandra Church CNP Work Phone: [facility] 10-15-2016 Human Papillomavirus 9-valent vaccine [facility] 06-11-2016 Human Papillomavirus 9-valent vaccine [facility] 03-22-2016 hepatitis A vaccine, pediatric/adolescent dosage, 2 dose schedule [facility] 03-22-2016 Human Papillomavirus 9-valent vaccine [facility] 03-22-2016 influenza, injectabl e, quadrivalent, preservative free [facility] 03-22-2016 meningococcal polysaccharide (groups A, C, Y and W-135) diphtheria toxoid conjugate vaccine (MCV4P) [facility] 03-22-2016 meningococcal vaccin e of unknown formulation and unknown serogroups [facility] [place], [place] 07-14-2012 influenza, injectabl e, quadrivalent, preservative free [facility] 07-14-2012 influenza, seasonal, injectable [facility] 03-15-2005 diphtheria, tetanus toxoids and acellular pertussis vaccine [facility] 03-15-2005 diphtheria, tetanus toxoids and acellular pertussis vaccine, unspecified formulation [facility] 03-15-2005 measles, mumps and rubella virus vaccine [facility] 03-15-2005 poliovirus vaccine, inactivated [facility] 06-09-2001 diphtheria, tetanus toxoids and acellular pertussis vaccine [facility] 06-09-2001 diphtheria, tetanus toxoids and acellular pertussis vaccine, unspecified formulation [facility] 06-09-2001 varicella virus vaccine [facility] 04-19-2001 diphtheria, tetanus toxoids and acellular pertussis vaccine [facility] 03-12-2001 haemophilus influenz ae type b conjugate and Hepatitis B vaccine [facility] 03-12-2001 haemophilus influenz ae type b vaccine, PRP-T conjugate [facility] 03-12-2001 hepatitis B vaccine, pediatric or pediatric/adolescent dosage [facility] 03-12-2001 measles, mumps and rubella virus vaccine [facility] 03-12-2001 poliovirus vaccine, inactivated [facility] 2000 diphtheria, tetanus toxoids and acellular pertussis vaccine [facility] 2000 diphtheria, tetanus toxoids and acellular pertussis vaccine, unspecified formulation [facility] 2000 diphtheria, tetanus toxoids and acellular pertussis vaccine [facility] 2000 diphtheria, tetanus toxoids and acellular pertussis vaccine, unspecified formulation [facility] 2000 haemophilus influenz ae type b conjugate and Hepatitis B vaccine [facility] 2000 haemophilus influenz ae type b vaccine, PRP-T conjugate [facility] 2000 hepatitis B vaccine, pediatric or pediatric/adolescent dosage [facility] 2000 haemophilus influenz ae type b conjugate and Hepatitis B vaccine [facility] 2000 haemophilus influenz ae type b vaccine, PRP-T conjugate [facility] 2000 poliovirus vaccine, inactivated [facility] 2000 diphtheria, tetanus toxoids and acellular pertussis vaccine [facility] 2000 diphtheria, tetanus toxoids and acellular pertussis vaccine, unspecified formulation [facility] 2000 haemophilus influenz ae type b conjugate and Hepatitis B vaccine [facility] 2000 haemophilus influenz ae type b vaccine, PRP-T conjugate [facility] 2000 hepatitis B vaccine, pediatric or pediatric/adolescent dosage [facility] 2000 poliovirus vaccine, inactivated [facility] Payers Date Payer Category Payer Medicaid (Managed Care) [facility] MEDICAID .[id number] 2024 Self-pay 2023 Unknown [id number] 2022 Unknown [id number] 2019 Unknown 2017 Unknown [facility] HMO/MEGHNA/ MEGHNA PLUS/CHOICE PLUS xxxxxxxxx 2017-Present [id number] 2017 Unknown [id number] 2000 Unknown [id number] 2.16.840.1.336266.3.579.2. 185 2000 Unknown [id number] 2.16.840.1.477032.3.579.2. 903 2000 Unknown [id number] 2.16.840.1.383200.3.579.2. 356 2000 Unknown [id number] 2.16.840.1.024738.3.579.2. 1069 2000 Unknown [id number] 2.16.840.1.817554.3.579.2. 1069 2000 Unknown [id number] 2.16.840.1.584366.3.579.2. 1069 2000 Unknown [id number] 2.16840.1.019585.3.579.2. 902 2000 Unknown [id number] 2.840.1.122106.3.579.2. 479 2000 Unknown [id number] 2.16840.1.276631.3.579.2. 174 2000 Unknown [id number] 2.16840.1.607774.3.579.2. 174 2000 Unknown [id number] 2.16840.1.850119.3.579.2. 903 2000 Unknown [id number] 2.16840.1.072165.3.579.2. 902 2000 Unknown [id number] 2.16.840.1.820512.3.579.2. 902 Unknown [id number] 2.16.840.1.177862.3.579.2. 462 Unknown [id number] 2.16.840.1.139869.3.579.2. 462 Unknown [id number] 2.16.840.1.238719.3.579.2. 462 Unknown [id number] 2.16840.1.923597.3.579.2. 462 Unknown [id number] 2.16.840.1.728220.3.579.2. 462 Unknown [id number] 2.16.840.1.968927.3.579.2. 462 Unknown 2030 2.16.840.1.972743.3.579.2. 462 Unknown [id number] 2.16.840.1.053681.3.579.2. 462 Unknown [id number] 2.16.840.1.826415.3.579.2. 462 Unknown [id number] 2.16.840.1.059666.3.579.2. 462 Unknown [id number] 2.16.840.1.787522.3.579.2. 462 Unknown [id number] 2.16.840.1.978940.3.579.2. 462 Unknown [id number] 2.16.840.1.370794.3.579.2. 462 Unknown [id number] 2.16840.1.470533.3.579.2. 462 Unknown [id number] 2.16.840.1.903118.3.579.2. 462 Unknown [id number] 2.16.840.1.531736.3.579.2. 462 Unknown [id number] 2.16.840.1.760916.3.579.2. 462 Unknown [id number] 2.16.840.1.057060.3.579.2. 462 Unknown [id number] 2.16.840.1.080020.3.579.2. 462 Unknown [id number] 2.16.840.1.167822.3.579.2. 462 Unknown [id number] 2.16.840.1.100437.3.579.2. 462 Unknown [id number] 2.16.840.1.254951.3.579.2. 462 Unknown [id number] 2.16.840.1.897266.3.579.2. 462 Unknown [id number] 2.16.840.1.461804.3.579.2. 462 Unknown [id number] 2.16.840.1.052713.3.579.2. 462 Unknown [id number] 2.16.840.1.529745.3.579.2. 462 Social History Date Type Detail Facility Start: 11-19-2018 End: 10-18-2022 Tobacco smoking status NHIS Never smoker [facility] Start: 11-05-2018 End: 08-14-2019 History SDOH Alcohol Frequency [address] [facility] Start: 2000 Sex Assigned At Not on file [facility] Start: 02-11-2019 End: 09-22-2024 Alcohol intake Lifetime non-drinker (finding) [facility] Exposure to SARS-CoV -2 (event) Unable to assess [place] Start: 10-08-2022 End: 10-18-2022 Exposure to SARS-CoV-2 (event) Not sure [facility] Tobacco smoking consumption unknown [facility] Tobacco [facility] Comment on above: denies. Start: 11-10-2018 End: 02-05-2020 Sex Assigned At Female [facility] Start: 04-11-2022 End: 10-18-2022 Tobacco use and exposure Smokeless tobacco non-user [facility] Start: 10-18-2022 End: 10-12-2024 Alcohol intake Current drinker of alcohol (finding) [facility] Start: 11-10-2018 End: 02-05-2020 History of Social function [facility] How often to you hav e a drink containing alcohol? Never [facility] Average Number of Drinks Not on file [facility] [employer] Start: 10-18-2022 Alcohol Comment weekends [facility] Start: 11-05-2018 Gender identity Identifies as female gender (finding) [facility] Start: 11-19-2018 Sexual orientation Heterosexual (sobeida ibrahim) [facility] Start: 04-16-2024 [employer] Start: 2000 Sex assigned at Female B on [employer] Start: 08-04-2012 End: 10-20-2024 Sex Female (finding) [facility] Start: 05-14-2024 Tobacco smoking stat us NHIS Ex-smoker (finding) [facility] Goals Date Patient Goal Desired Activity /State [...] Assessment Result Facility 01-27-2022 Functional Status N/A [facility] 12-31-2021 Functional Status N/A [facility] Clinical Notes 12-31-2021 to 12-15-2024 Sandra Church PENSION MANAGER - 10/12/2024 10:29 AM EDT Note Date & Type Note Facility 12-15-2024 Progress note [facility] 12-14-2024 Radiology Diagnostic study note [facility] Imaging Services [address] [place] [address] OB Limited With Biometrics MR#: [id number] Acct: [id number] Name: AIMEE REDDY Rep #: [id number] : 2000 F 24 From: Speedy Lopez MD PCP: Care Physician,No Primary Status: REG CLI Study:OB Limited With Biometrics Date of Exam : 12/11/24 Exam# [id number] Ordering Dr: Leonor Phillips MD PROCEDURE: OB [...] with the normal expected range. Reading Location: [id number] CC: Dr. Leonor Phillips MD; No Primary Care Physician ~ Sales Ledger Administrator: Signed [facility] 12-09-2024 Progress note [facility] 11-25-2024 Progress note [facility] 10-12-2024 Note Patient Name: [facility] Location: [place]e [place] [address] [place] [phone] Date Of : Date Of Visit: 2000 10/12/2024 MRN# Provider: [id number] Sandra Church CNP Chief Complaint Patient presents with Sore Throat ST, Fatigue, Cough x 7 days exposed to mono Assessment & Plan 1. Sore throat POC Strep A - Molecular POC Infectious Mononucleosis Antibody 2. Viral pharyngitis No follow-ups on file. Medical Decision Making Strep was (-) and reviewed - [place] was (-) and reviewed. She is to [...] or SOB. Was seen last week in [place] ED for same thing and FLU and Strep was done and negative. She states that he has no fevers and no rashes. She is now concerned for [place] as she reports exposure. She denies any abdominal pain Review Of Systems Review of Systems HENT: Positive for sore throat. Respiratory: Positive for cough. Medical History Past Medical History: Diagnosis Date Environmental allergies Migraine Sepsis (HCC) 2018 due to UTI Syncope Past Surgical History: Procedure Laterality Date COLONOSCOPY N/A 02/24/2019 Procedure: COLONOSCOPY with biopsy; Surgeon: Sergio Gray MD; Location: [facility]; Service: General Surgery EGD N/A 02/24/2019 Procedure: ESOPHAGOGASTRODUODENOSCOPY with biopsy; Surgeon: Sergio Gray MD; Location: [facility]; Service: General Surgery SPLENECTOMY, TOTAL 2011 [...] ear normal. Nose: Nose normal. Mouth/Throat: Lips: [place]. Mouth: Mucous membranes are moist. Tongue: No [...] 10:47 AM Result Value Ref Range Infectious [place] Negative Negative Internal Control Pass No orders [...] medications for this visit. AUTHENTICATED BY SANDRA CHURCH ON 10/12/2024 10: (more content not included)... [facility] 10-12-2024 History of Present illness Narrative Images from the original note were not included. Patient Name: [facility] Urgent [facility] Location: Aimee Reddy [address] [place] [phone] Date Of : Date Of Visit: 2000 10/12/2024 MRN# Provider: [id number] Sandra Church CNP Chief Complaint Patient presents with Sore Throat ST, Fatigue, Cough x 7 days exposed to mono Assessment & Plan 1. Sore throat POC Strep A - Molecular POC Infectious Mononucleosis Antibody 2. Viral pharyngitis No follow-ups on file. Medical Decision Making Strep was (-) and reviewed - [place] was (-) and reviewed. She is to [...] or SOB. Was seen last week in [place] ED for same thing and FLU and Strep was done and negative. She states that he has no fevers and no rashes. She is now concerned for [place] as she reports exposure. She denies any abdominal pain Review Of Systems Review of Systems HENT: Positive for sore throat. Respiratory: Positive for cough. Medical History Past Medical History: Diagnosis Date Environmental allergies Migraine Sepsis (HCC) 2019 due to UTI Syncope Past Surgical History: Procedure Laterality Date COLONOSCOPY N/A 02/24/2019 Procedure: COLONOSCOPY with biopsy; Surgeon: Sergio Gray MD; Location: [facility]; Service: General Surgery EGD N/A 02/24/2019 Procedure: ESOPHAGOGASTRODUODENOSCOPY with biopsy; Surgeon: Sergio Gray MD; Location: [facility]; Service: General Surgery SPLENECTOMY, TOTAL 2011 [...] ear normal. Nose: Nose normal. Mouth/Throat: Lips: [place]. Mouth: Mucous membranes are moist. Tongue: No [...] 10:47 AM Result Value Ref Range Infectious [place] Negative Negative Internal Control Pass No orders [...] visit. documented in this encounter [facility] 09-23-2024 Progress note [facility] 09-23-2024 Radiology Diagnostic study note [facility] Imaging Services [address] [place], [place] [id number] OB Limited With Biometrics MR#: [id number] Acct: [id number] Name: AIMEE REDDY Rep #: [id number] : 2000 F 24 From: Symone Cabrales MD PCP: Status: ADM IN Study:OB Limited With Biometrics Date of Exam : 09/23/24 Exam# [id number] Ordering Dr: Leonor Phillips MD EXAM: US [...] single live intrauterine as above. Reading Location: [facility] CC: Dr. Leonor Phillips MD ~ Sales Ledger Administrator: Signed [facility] 09-23-2024 Progress note Note Date/Time September 23, 2024 12:57pm [facility] Medical Records Department [address] [facility] [place] [address] Progress Note - OBGYN 09/23/24 0659 MR#: [id number] Acct: [id number] Name: AIMEE REDDY Rep #:[id number] : 2000 24 From: Leonor reed MD PCP: Status:ADM IN Location: [id number] Subjective Subjective feeling better no back pain [...] of normal first , second trimester COMMENT: [id number], TERESITA 12/29/24, girl Guerrero Gutierrez (3) : QUALIFIERS: Weeks of gestation: 20 weeks Qualified Code(s): Z3A.20 - 20 weeks gestation of COMMENT: LR NIPT Carrier Neg. 13/14 Carrier for Cystic Fibrosis;FOB Karen Merino negative PLAN: Plan monitor for being afebrile fro 24 hours and c home on antibiotics Charges/Coding Visit Charges Inpatient E&M: 08198 Disch Hosp 09/23/24 1257 <Electronically signed by Leonor Phillips MD> Cosigner Signature (if applicable): CC: ~ Signed [facility] Work Phone: 1(357) 292-295604-01-2025 History and physical note Author Mimi Caldera [facility] Note Date/Time September 22, 2024 5:44 pm [facility] Medical Records Department [address] [place] [address] 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 09/22/24 1735 MR#: [id number] Acct: [id number] Name: AIMEE REDDY Rep #:[id number] : 2000 24 From: Mimi Thomas DO PCP: Status:ADM ASMITA Location: [place] [address] HPI - General General Date of Admission: 09/22/24 HPI Narrative AIMEE REDDY, is a 24 y/o @ 24 weeks 5 days who presents to [facility] from [facility] with the diagnosis of acute pyelonephritis in [...] current occupational status: employed current occupation: [employer] pets and animals: Yes pets and animals: [...] activity do you participate in: none ana m/congregation: Anabaptist seatbelt use: always do you feel safe [...] lb) 108/62 Negative -?-?-?-?-?-?-?-?-?-?-?-?- Negative 135 -?-?-?-?-?-?-?-?-?-?-?--?- - no vb lof go od fm no [...] unsure if urine culture was sent at [facility] - will order repeat rpt cbc in [...] of normal first , second trimester COMMENT: [id number], TERESITA 12/29/24, girl Guerrero Gutierrez (4) : QUALIFIERS: Weeks of gestation: 20 weeks Qualified Code(s): Z3A.20 - 20 weeks gestation of COMMENT: LR NIPT Carrier Neg. Carrier for Cystic Fibrosis;FOB Karen Wilber negative 09/22/24 1744 <Electronically signed by Mimi Thomas DO> Cosigner Signature (if applicable): CC: Dr. Mimi Thomas DO~ Signed [facility] Work Phone: 1(806) 270-538604-01-2025 History and physical note [facility] Medical Records Department [address] [place] [address] 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 09/22/24 1735 MR#: [id number] Acct: [id number] Name: AIMEE REDDY Rep #:[id number] : 2000 24 From: Mimi Thomas DO PCP: Status:ADM ASMITA [facility] HPI - General General Date of Admission: 09/22/24 HPI Narrative AIMEE REDDY, is a 24 y/o @ 24 weeks 5 days who presents to [facility] from [facility] with the diagnosis of acute pyelonephritis in [...] family current occupational status: employed current occupation: [employer] pets and animals: Yes pets and animals: [...] activity do you participate in: none ana m/congregation: Anabaptist seatbelt use: always do you feel safe at home: Yes additional social history: PARISH- Brenda- Cayden Coley History 1 Elective abortions Hx [...] Negative 145 -?-?-?-?-?-?-?-?-?-?-?-?- MH-No VB. Nausea problematic. Zofran sent. 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 Br US confirm FHT 07/28/24 -?-?-?-?-?-?-?-?-?-?-?-?- 16w 5d 127 lb (+2 lb) 112/70 Negative -?-?-?-?-?-?-?-?-?-?-?-?- Negative 142 -?-?-?-?-?-?-?-?-?-?-?-?- JV- no complaint s today other than FOB needs labs for CF. 08/26/24 -?-?-?-?-?-?-?-?-?-?-?-?- 20w 6d 129 lb (+4 lb) 108/62 Negative -?-?-?-?-?-?-?-?-?-?-?-?- Negative 135 -?-?-?-?-?-?-?-?-?-?-?--?- - no vb lof go od fm no [...] unsure if urine culture was sent at [facility] - will order repeat rpt cbc in [...] of normal first , second trimester COMMENT: [id number], TERESITA 12/29/24, girl Guerrero Gutierrez (4) : QUALIFIERS: Weeks of gestation: 20 weeks Qualified Code(s): Z3A.20 - 20 weeks gestation of COMMENT: LR NIPT Carrier Neg. Carrier for Cystic Fibrosis;FOB Karen Nassareck negative 09/22/24 5978 Cosigner Signature (if applicable): CC: Dr. Mimi Thomas, DO~ Signed [facility]04-01-2025 Evaluation note* Diagnosis Onset Date Resolution Status [...] first acute December 30, 2024 2 :11pm [facility] Work Phone: 1(885) 397-124904-01-2025 Evaluation note* Diagnosis Onset Date Resolution Status [...] normal first acute January 07, 2025 11:20am [facility] Work Phone: 1(439) 987-181203-05-2025 Evaluation note* Diagnosis Onset Date Resolution Status [...] first acute November 25, 2024 9 :51am [facility] Work Phone: 1(490) 524-528403-05-2025 Evaluation note* Diagnosis Onset Date Resolution Status [...] normal first acute December 09, 2024 9:24am [facility] Work Phone: 1(959) 342-171603-05-2025 Evaluation note* Diagnosis Onset Date Resolution Status [...] normal first acute December 15, 2024 9:16am [facility] Work Phone: 1(290) 541-695703-05-2025 Evaluation note* Diagnosis Onset Date Resolution Status [...] 2024 3:19pm Cystic fibrosis carrier acute J livia2024 3:19pm History of total splenectomy acute December 23, 2024 3:19pm acute December 23, 2024 3:19pm Pyelonephritis affecting acute December 23, 2024 3 :19pm Supervision of normal first acute December 23, 2024 3 :19pm [facility] Work Phone: 1(304) 384-583002-04-2025 Evaluation note* Diagnosis Onset Date Resolution Status Admit Date Cystic fibrosis carrier acute F ebruary 2024 8:53am acute July 28, 2024 8:53am Supervision of normal first acute July 28 8:53am Cystic fibrosis carrier acute M 2024 9:19am [...] 2024 9:51am Abdominal pain acute October 27, 9:18am Anemia in acute October 272024 9:18am [...] first acute November 11, 2024 9 :26am [facility] Work Phone: 1(733) 854-487502-04-2025 Evaluation note* Diagnosis Onset Date Resolution Status [...] first acute November 25, 2024 9 :51am [facility] Work Phone: 1(267) 994-564401-08-2025 Evaluation note* Diagnosis Onset Date Resolution Status Admit Date Cystic fibrosis carrier acute J anuary 2024 9:22am acute July 01, 2 025 9:22am Supervision of normal first acute July [...] normal first acute October 15, 2024 9:51am [facility] Work Phone: 1(118) 331-180012-06-2024 Evaluation note* Diagnosis Onset Date Resolution Status [...] normal first acute September 22, 2024 4:45pm [facility] Work Phone: 1(620) 854-744404-27-2023 Instructions* Patient Instructions* Mary Romero CNP - 10/18/2022 4:36 PM EDT Thank you for choosing [facility] for your healthcare needs today. Wet preparation results in 24 hours. STD results in 72 hours. No intercourse for 7 days. You will be contacted with the results and provided additional information/treatment if indicated. Please consider vaping cessation. * Attachments The following attachments cannot be sent through Care Everywhere. * Bacterial Vaginosis (Japanese) documented in this [id number] History of Present illness Narrative* Mary Romero CNP - 10/18/2022 4:16 PM EDT Images from the original note were not included. Patient Name: [facility] Urgent Care Location: Aimee Reddy [address] [place] [phone] Date Of : Date Of Visit: 2000 10/18/2022 MRN# Provider: [id number] Mary Romero CNP Chief Complaint Patient presents [...] STD. See H&P Informed of need for tripoler. Client agreeable. Wet Preparation Chlamydia, Gonorrhea Additional [...] with biopsy; Surgeon: Sergio Gray MD; Location: [facility]; Service: General Surgery EGD N/A 02/24/2019 Procedure: ESOPHAGOGASTRODUODENOSCOPY with biopsy; Surgeon: Sergio Gray MD; Location: [facility]; Service: General Surgery SPLENECTOMY, TOTAL 2011 [...] nursing note reviewed. Exam conducted with a tripoler present (Sherri TIJERINA). Constitutional: General: She is [...] Please consider vaping cessation. documented in this [id number] History of Present illness Narrative* Verenice Sinha PA-C - 10/18/2022 2:51 PM EDT Images from the original note were not included. Patient Name: [facility] Urgent Care Location: [place] [address] [facility]] [phone] Date Of : Date Of Visit: 2000 10/18/2022 MRN# Provider: [id number] Verenice Sinha PA-C Video Visit Video Visit [facility] [facility] [address] [facility] [address] Via Real-time Synchronous Audiovisual [facility] 09/08/2021 Verenice Sinha PA-C Provider Location: [place] Patient Location Water Vessel Captain: None Patient Location: Patient's Home Patient: Aimee [...] that there are some limitations compared to xnoa-la-jail evaluations. We elected to proceed. Chief Complaint Patient presents with Vaginal Discharge Odor, 2wks after menstrual cycle. Assessment & Plan 1. Vaginal Odor No follow-ups on file. Pt agrees to go to [facility] for in person visit with provider [...] with biopsy; Surgeon: Sergio Gray MD; Location: [facility]; Service: General Surgery EGD N/A 02/24/2019 Procedure: ESOPHAGOGASTRODUODENOSCOPY with biopsy; Surgeon: Sergio Gray MD; Location: [facility]; Service: General Surgery SPLENECTOMY, TOTAL 2011 [...] file for this visit. documented in this [id number] Hospital Discharge instructions Patient Education 01/27/2022 19:01:10 Urinary Tract Infection, Adult, Luhh-ku-Zfeg Urinary Tract Infection, Adult A urinary tract [...] Follow these instructions at home: Medicines Take ifia-yng-yoeannq and prescription medicines only as told by [...] 11/26/2008 Document Revised: 05/28/2019 Document Reviewed: 12/18/2018 Wangluotianxia Patient Education 2019 [employer]. Follow Up Care 01/27/2022 16:01:49 With:Tye Arora MD, NEU Address: [address] [place] [address] [place] [address]- When:01/30/2022 With:Britt Aguilar MD Address: [address] [place] [address]- When:01/30/2022 [facility]08-06-2022 Evaluation + Plan note Diagnostic Tests Pending * Urine Culture 01/27/22 [facility]07-10-2022 Hospital Discharge instructions Patient Education 12/31/2021 19:45:50 Seizure, Adult, Twmr-dv-Joxt Seizure, Adult A seizure is a sudden [...] like you saw or heard something before (pilo monge). Odd tastes or smells. Changes in how [...] Follow these instructions at home: Medicines Take kyve-icu-otgskjd and prescription medicines only as told by [...] [place] ask your local DMV (department of [employer]her[employer] vehicles) when you can drive. Get plenty of [...] 11/26/2008 Document Revised: 08/28/2019 Document Reviewed: 08/28/2019 Wangluotianxia Patient Education 2020 [place]. Follow Up Care 12/31/2021 18:36:34 With:Tye Arora Address: [address] [place] [address] [place] [address] Business (1) When:01/03/2022 19:26:51 With:Britt Aguilar Address: [address] [place] [address] [place] [address] Business (1) When:Within 3 Day(s) [facility]07-10-2022 Evaluation + Plan noteExtracted from: Title:ED Note Author:Ji Grimes DO Date :12/31/21 Recurrent episodes of unresp onsiveness (R41.89: Other symptoms and signs involving cognitive functions and awareness) [facility] Diagnosis Vaginal Odor- Primary Leukorrhea, not specified as infective [facility] Diagnosis Acute vaginitis- Primary Unspecified vaginitis and vulvovaginitis Vaginal odor Unspecified symptom associated with female genital organs Screening examination for STD (sexually transmitted disease) Electronic cigarette use documented [facility] Diagnosis Abdominal pain, left upper quadrant- Primary documented in this encounter [facility] note* Diagnosis Acute pyelonephritis- Primary Acute pyelonephritis without lesion of renal medullary necrosis documented in this encounter [facility] note* Diagnosis Sepsis, due to unspecified organism- Primary Environmental allergies Other allergy, other than to medicinal agents Body mass index (BMI) of 5th to less than 85th percentile for age in patient 18 years to less than 21 years of age Syncope, unspecified syncope type- Primary Palpitations Sore throat- Primary Acute pharyngitis Viral pharyngitis Acute pharyngitis [facility] Narrative No data available for this section [facility] Discharge instructions* Attachments The following attachments cannot be sent through Care Everywhere. * : Abdominal Pain (Japanese) * Abdominal Pain (Japanese) [facility]* Attachments The following attachments cannot be sent through Care Everywhere. * Pyelonephritis (Japanese) * : UTI (Urinary Tract Infection) (Japanese) [facility]* Attachments The following attachments cannot be sent through Care Everywhere. * Sore Throat (Japanese) documented in [facility] encounter[facility]HealthProgress note No data available for this section [facility] Author Ramya Voss [facility] Note Date/Time November 25, 2024 10:17 am [facility] [address] [place] [address], [address] [place] [address] OFFICE VISIT Date of Service: 11/25/24 MR#: [id number] Acct: [id number] Name: AIMEE REDDY Rep #: [id number] : 2000 Provider: ANDREW Voss Age/Sex: 24/F Location: [facility] [place] Status: Signed Intake Vital Signs 07/01/24 09:26 11/11/24 09:33 11/25/24 09:57 Height 5 ft 4 in 5 ft 4 in 5 ft 4 in Weight: 144 lb 146 lb 2 oz BMI 24.7 25.0 BP 117/76 112/82 H Intake Visit Reasons: 34wk ob Chief Complaint: 34 Week OB Academic Interventionist Required: No Is patient in pain?: No [...] family current occupational status: employed current occupation: [employer] pets and animals: Yes pets and animals: [...] activity do you participate in: none ana m/congregation: Anabaptist seatbelt use: always do you feel safe [...] Negative 145 -?-?-?-?-?-?-?-?-?-?-?-?- MH-No VB. Nausea problematic. Zofran sent. +CF carrier/FOB will be [...] Monitoring, Signs and Symptoms of Preeclampsia and [place] Education ROS Const Reports system reviewed and [...] of normal first , third trimester Comment: [id number], TERESITA 12/29/24, girl Guerrero Gutierrez (2) : [...] 11/25/24 1017 <Electronically signed by Ramya gallegos BILLET HEATER BILLET HEATER-C> Date _ Ramya [place] BILLET HEATER BILLET HEATER-C Cosigner Signature: Date (if applicable) CC: ~ [facility] Work Phone: Progress note Author Leonor Phillips [facility] Note Date/Time December 09, 2024 9:[address] [facility] [address] [place] [address], [address] [place] [address] OFFICE VISIT Date of Service: 12/09/24 MR#: [id number] Acct: [id number] Name: AIMEE REDDY Rep #: [id number] : 2000 Provider: Dr. Cecil Phillips MD Age/Sex: 24/F Location: [facility] [place] Status: Signed Intake Vital Signs 07/01/24 09:26 11/25/24 09:57 12/09/24 09:26 12/09/24 09:30 Height 5 ft 4 in 5 ft 4 in 5 ft 4 in 5 ft 4 in Weight: 148 lb 2 oz BMI 25.4 BP 127/76 H Intake Visit Reasons: 36wk ob Academic Interventionist Required: No Is patient in pain?: No [...] current occupational status: employed current occupation: [employer] pets and animals: Yes pets and animals: [...] activity do you participate in: none ana m/congregation: Anabaptist seatbelt use: always do you feel safe at home: Yes additional social history: PARISH- Bhaskar Coley History 1 Elective abortions Hx Para 0 Spontaneous abortions Hx # Term Pregnancies Ectopic pregnancies Hx # Pregnancies Multiple births # of living children HPI 36wk ob Details: AIMEE ERDDY is a 24 year [...] of normal first , third trimester Comment: [id number], TERESITA 12/29/24, girl Guerrero Gutierrez (5) Cystic fibrosis carrier: Status: Acute Comment: FOB neg. 06/04 (6) : Status: Acute Qualifiers: Weeks of gestation: 35 weeks Qualified Code(s): Z3A.35 - 35 weeks gestation of Comment: LR NIPT Carrier Neg. Carrier for Cystic Fibrosis;FOB Kraen Merino negative, nl anatomy Orders: Orders POC Urinalysis 2 Dip (Clinic) Today 12/09/24 0012 <Electronically signed by Leonor desir MD> Date _ Leonor Phillips MD Cosigner Signature: Date (if applicable) CC: ~ [facility] Work Phone: Progress note Author Leonor Phillips [facility] Note Date/Time December 15, 2024 10:1 6am [facility] [address], [address] [place] [address] OFFICE VISIT Date of Service: 12/15/24 MR#: [id number] Acct: [id number] Name: AIMEE REDDY Rep #: [id number] : 2000 Provider: Dr. Cecil Phillips MD Age/Sex: 24/F Location: [facility] [place] Status: Signed Intake Vital Signs 07/01/24 09:26 12/09/24 09:30 12/15/24 09:36 Height 5 ft 4 in 5 ft 4 in 5 ft 4 in Weight: 152 lb BMI 26.1 BP 125/82 H Intake Visit Reasons: 37wk ob Academic Interventionist Required: No Is patient in pain?: No [...] current occupational status: employed current occupation: [employer] pets and animals: Yes pets and animals: [...] activity do you participate in: none ana m/congregation: Anabaptist seatbelt use: always do you feel safe [...] Negative 145 -?-?-?-?-?-?-?-?-?-?-?-?- -No VB. Nausea problematic. Zofran sent. +CF carrier/FOB will be [...] Monitoring, Signs and Symptoms of Preeclampsia and [place] Education ROS Const Denies fever(s) GI Reports [...] of normal first , third trimester Comment: [id number], TERESITA 12/29/24, girl Guerrero Gutierrez (6) : [...] Cosigner Signature: Date (if applicable) CC: ~ [facility] Work Phone: Reason for referral (narrative)No reason for referral information availableWProMedica [facility] Work Phone: Instructions * Patient Instructions* Jennifer Haley CNP - 11/19/2018 12:03 PM EDT Problem List [...] your Care Team: Provider: Chintan Ling MD [facility] Nurse: Rosalind Cornejo RN In case of an emergency please call 911. REFILLS: When in need for refills please call your care team or the office at [phone]. Please include medication name, pharmacy name, and specify 30-day or 90-day supply. Please check with your pharmacy within 24 hours of request for your refill. You must follow up as directed to continue current refills. Thank you! documented in this encounter* Patient Instructions* SpringJennifer CNP - 12/31/2019 11:41 AM EDT Problem [...] look into their status. Customer Service/Billing Questions: [phone] [facility] Assistance: [phone] or [phone] Financial Assistance: [phone] or [phone] As of June 29, 2019 my schedule [...] worse. When should you call for help? [id number] anytime you think you may need emergency [...] Log into your personal health record on https://Ravti.Access Scientific and enter Q913 in the Education box to learn more about Learning About Postural Orthostatic Tachycardia Syndrome (POTS). Current as of: June 08, 2019 Content Version: 12.5 addwish. Care instructions adapted under license by your healthcare professional. If you have questions about a medical condition or this instruction, always ask your healthcare professional. addwish disclaims any warranty or liability for your [...] been followed closely by a PCP or grain scooper. She denies any complaints or needs today. [...] EXAMINATION Patient Name: Aimee Reddy MR #: [id number] : 2000 Physicians: Jennifer Haley CNP (Family); [...] file Gets together: Not on file Attends jew service: Not on file Active member of [...] AM EDT OFFICE CONSULTATION NOTE [facility] [address] [facility] [address] [facility] [id number] Physicians: Jennifer Haley CNP (Family); Kenn Valdez MD (Referring) Subjective: Aimee Reddy is a 19 y.o. female seen in the office today for Syncope (s/p d/c [facility] ED for syncopal event 12/22. Pt states she has hx of syncope since about the second grade. She didhave a cardiac work up and [facility] in 2017. Information is in Care [...] an echocardiogram several [facility] ago [facility] which was also normal with no structu ral abnormality of any kind. Aimee states that she has episodes of near syncope 3 times a week without total loss of consciousness. She has true syncopal episodes 1 or 2 times a year. She denies any anginal type chest discomfort. 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 She denies any orthopnea or paroxysmalnocturnal dyspnea. [...] History: Diagnosis Date Environmental allergies Sepsis (HCC) 2018 due to UTI Syncope Past Surgical History: Procedure Laterality Date COLONOSCOPY N/A 02/24/2019 Procedure: COLONOSCOPY with biopsy; Surgeon: Sergio Gray MD; Location: [facility] [place]; Service: General Surgery EGD N/A 02/24/2019 Procedure: ESOPHAGOGASTRODUODENOSCOPY with biopsy; Surgeon: Sergio Gray MD; Location: [facility]; Service: General Surgery SPLENECTOMY, TOTAL 2011 [...] Chintan Ling MD documented in this encounter* Spring, Jennifer Vasquez CNP - 12/31/2019 12:00 PM EDT Subjective [...] years and was worked up by her grain scooper in 2016. She had EKG, Holter monitor, [...] November 2019 while she finished working at [employer] going to the basement to the parking [...] She finished high school and works at [employer]. The following portions of the patient's history [...] or abnormal muscle tone. Coordination: Coordination normal. Niswgm-Zyys-Dogoio Test normal. Gait: Gait is intact. 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 Occasional wrong-word or sound-like [...] Salamanca - 11/09/2018 11:50 AM EDT 11/09/18 3987 Clinical Encounter Type Visit Type Non Crisis Non Crisis Visit Follow-up Visited With Patient and family together Visit Length (minutes) 1-15 Patient Spiritual Assessment Spiritual Assessed Yes Jew Affiliation Zoroastrianism Patient Spiritual Resilience Sense of Hope Family Spiritual Encounters Family Coping Accepting;Open/discussion Family Normalization 4 Family Participation in Care 5 Family Support During Treatment 5 Spiritual Health Services Progress Note Type of Visit: Follow Up Date of Visit: 11/09/2018 Clinical Encounter Type: Visited With: patient and family Continue Visiting: no Jew Encounters: Jew Needs: Other: None at this time; prn. Situation: Follow up on patient's medical condition and disposition; as well as mother's emotional status. Background: Patient and mother tearful and distressed over illness. Assessment: Patient is in good spirits; smiling; and pleased with healing progress. Mother is content and expressing gratitude for Shoe Associate's concern and visit. Recommendation: Offered words of encouragement, spiritual, and emotional support. Kajal Salamanca MDiv. Assoc. Shoe Associate Ext. [phone] * Kajal Salamanca - 11/09/2018 10:15 AM EDT 11/09/18 0838 Clinical Encounter Type Visit Type Non Crisis Non Crisis Visit Follow-up Visited With Patient not available Spiritual Health Services Progress Note Type of Visit: Follow Up Date of Visit: 11/09/2018 Clinical Encounter Type: Visited With: Patient asleep. Continue Visiting: yes Jew Encounters: Jew Needs: Other: Spiritual and emotional support. Situation: Follow up. Background: Patient tearful during initial encounter. Assessment: Patient resting. Recommendation: Will follow up. Kajal Salamanca MDiv. Assoc. Shoe Associate Ext. [phone] * Symone Salamancajowayne Coley - 11/08/2018 3:21 PM EDT 11/08/18 1505 Clinical Encounter Type Visit Type Non Crisis Non Crisis Visit Rounding Visited With Patient and family together Visit Length (minutes) 1-15 Patient Spiritual Assessment Spiritual Assessed Yes Jew Affiliation Zoroastrianism Patient Spiritual Distress Sense of [place] Spiritual needs Prayer Family Spiritual Encounters Family Coping Anxiety Family Participation in Care 4 Family Support During Treatment 5 Spiritual Health Services Progress Note Type of Visit: Initial Date of Visit: 11/08/2018 Clinical Encounter Type: Visited With: patient and family Continue Visiting: yes Jew Encounters: Jew Needs: Prayer and Supportive Listening Situation: Visited patient during afternoon rounds. Background: Cheondoism/Zoroastrianism ana m foundations. Assessment: Patient is tearful and afraid. This hospital admission and the diagnosis of sepsis has caused the patient to have a sense of brokenness; not expecting to deal with this illness and tests required. Patient's mother is present and very supportive. Mother demonstrates some anxiety and becomes tearful as well. Shoe Associate's words of encouragement seemed to give them both a sense of hope. Recommendation: Offered emotional and spiritual support. Will follow up. Kajal Salamanca MDiv. Assoc. Shoe Associate Ext. [phone] * Brissa Dumont MD - 11/08/2018 2:40 PM EDT [facility] Medicine Inpatient Follow-up 11/08/2018 Brissa Dumont MD [facility] Patient: Aimee Reddy Date of : 2000 [...] Jacobsen MD - 11/07/2018 12:04 PM EDT [facility] Medicine Inpatient Follow-up 11/07/2018 Anupam Jacobsen MD [facility] Patient: Aimee Reddy Date of : 2000 [...] Jacobsen MD - 11/06/2018 12:39 PM EDT [facility] Medicine Inpatient Follow-up 11/06/2018 Anupam Jacobsen MD [facility] Patient: Aimee Reddy Date of : 2000 [...] RN with Rapid Response and Magda Crisostomo BILLET HEATER notified and at the bedside. * Brigitte [...] EXAMINATION Patient Name: Aimee Reddy MR #: [id number] [facility] #: [id number] : 2000 Physicians: Jennifer Haley CNP (Family); [...] with biopsy; Surgeon: Sergio Gray MD; Location: [facility]; Service: General Surgery EGD N/A 02/24/2019 Procedure: ESOPHAGOGASTRODUODENOSCOPY with biopsy; Surgeon: Sergio Gray MD; Location: [facility]; Service: General Surgery SPLENECTOMY, TOTAL 2011 [...] file Gets together: Not on file Attends jew service: Not on file Active member of [...] found for: LIPASE Surgical Pathology Report Case: [id number] Authorizing Provider: Sergio Gray MD Collected: 02/24/2019 08:34 AM Ordering Location: [facility] Surgery Received: 02/24/2019 12:01 PM Center Periop [...] SRIKANTH office visit. Patient sent letter via AppSense. Future Appointments Date Time Provider Department Center 11/19/2018 11:30 AM Jennifer Haley CNP [facility] PCP [facility] documented in this encounter Assessments Diagnosis [...] Other specified disorder of gallbladder Advance Directives Documents on File Type Date Recorded Patient Admitting Manager Expl anation Advance Directives and Livin g Will 11/05/2018 2:57 PM Latest Code Status on File Code Status Date Activated Date Inactivated Comments Full Code 11/05/2018 3:35 PM Documents on File Type Date Recorded Patient Admitting Manager Expl anation Advance Directives and Livin g Will 01/28/2019 12:10 AM Latest Code Status on File Code Status Date Activated Date Inactivated Comments Full Code 11/05/2018 3:35 PM 01/27/2019 10:48 PM Documents on File Type Date Recorded Patient Admitting Manager Expl anation Advance Directives and Livin g Will 02/11/2019 7:09 AM Documents on File Type Date Recorded Patient Admitting Manager Expl anation Advance Directives and Living Will Power of Independent Marketing Consultant Documents on File Type Date Recorded Patient Admitting Manager Expl anation Advance Directives and Livin g Will 12/23/2019 12:00 AM Latest Code Status on File Code Status Date Activated Date Inactivated Comments Full Code 11/05/2018 3:35 PM 01/27/2019 10:48 PM Documents on File Type Date Recorded Patient Admitting Manager Expl anation Advance Directives and Livin g Will 12/23/2019 12:00 AM Documents on File Type Date Recorded Patient Admitting Manager Expl anation Advance Directives and Livin g Will 01/01/2020 6:03 AM Documents on File Type Date Recorded Patient Admitting Manager Expl anation Advance Directives and Livin g Will 02/24/2019 7:27 AM Documents on File Type Date Recorded Patient Admitting Manager Expl anation Advance Directives and Livin g Will 01/28/2019 12:10 AM Documents on File Type Date Recorded Patient Admitting Manager Expl anation Advance Directives and Livin g [...] Hepatobiliary With Ejection Fraction Sergio Gray MD [address] [place] [address] [place] [address] Status Reason Specialty Diagnoses / Procedures Referre d By Contact Referred To Contact Closed Radiology Diagnoses Abdominal pain, unspecified abdominal location Weight loss Nausea Procedures NM Hepatobiliary With Ejection Fraction Sergio Gray MD [address] [place] [address] [place] [address] Status Reason Specialty Diagnoses / Procedures Referred By Contact Referred To Contact Pending Review Cardiology Diagnoses Syncope, unspecified syncope type Palpitations Procedures Cardiac event monitor Chintan Ling MD [address] [place], [place] [id number] Status Reason Specialty Diagnoses / Procedures Referred By Contact Referred To Contact Authorized Neurology Diagnoses Syncope, unspecified syncope type Jennifer Haley, PENSION MANAGER [address] [place] [address] Ernesto Saxena MD [address] [place] [address] Status Reason Specialty Diagnoses / Procedures Referred By Contact Referred To Contact Pending Review Neurology Diagnoses Syncope, unspecified syncope type Procedures EEG (Standard) Julieth Watters MD [address] [place] [address] [address] Status Reason Specialty Diagnoses / Procedures Referred By Contact Referred To Contact Pending Review Radiology Diagnoses Syncope, unspecified syncope type Procedures MR Brain With And Without Contrast Julieth Watters MD [address] [place] [address] [address] Discharge Instructions * Instructions* Ric Lantigua MD - 12/16/2019 Drink plenty of fluids tomorrow, Tylenol for headaches * Attachments The following attachments cannot be sent through Care Everywhere. * Bruises (Japanese) * Fainting (Japanese) documented in this encounter* Instructions* Kenn Valdez MD - 12/23/2019 Please stay very hydrated drink 6 to 8 cups of water a day * Attachments The following attachments cannot be sent through Care Everywhere. * Fainting (Japanese) documented in this encounter* Discharge Instr - [...] Log into your personal health record on https://Ravti.Access Scientific and enter Y798 in the Education box to learn more about Learning About Sepsis. Current as of: March 16, 2018 Content Version: 12.0 [id number] addwish. Care instructions adapted under license by your healthcare professional. If you have questions about a medical condition or this instruction, always ask your healthcare professional. addwish disclaims any warranty or liability for your use of this information. documented in this encounter* Attachments The following attachments cannot be sent through Care Everywhere. * Colonoscopy: Pediatric: Pre-op (Japanese) * Abdominal Pain: Pediatric (Japanese) * GI Bleed: Pediatric (Japanese) documented in this encounter Hospital Course * Brissa Dumont MD - 11/09/2018 12:10 PM EDT DISCHARGE SUMMARY Patient: Aimee Reddy Date of : 2000 Site: [facility] Family Provider: Jennifer Haley CNP Admit Date: [...] Physician(s) Family Provider: Jennifer Haley CNP, Address: [address] [place] [address] / [facility] [address] Follow Up: No follow-up provider specified. Additional [...] 5:35 pm PYELONEPHRITIS IN September 23 6:59am Reason for Visit Admit Date May 29, 2024 1 1:14am Supervision of normal first De cember 2023 11:14am Cystic fibrosis carrier July 01 9:22am July 01, 2024 9: 22am Supervision of normal first [facility] 2024 9:22am Cystic fibrosis carrier July 28 8:53am July 28, 2024 8 :53am Supervision of normal first Fe bruary 2024 8:53am Cystic fibrosis carrier August 26, 2024 9:19am August 26, 2024 9:19 am Supervision of normal first [facility] 2024 9:19am Cystic fibrosis carrier September 22, [...] September 22, 2024 8:24 am PYELONEPHRITIS IN Marissa 1st, 2 025 4:45pm R/O LABOR September 22, [...] 9:19 am Supervision of normal first [facility] 2024 9:19am Cystic fibrosis carrier September 22, [...] 9:19 am Supervision of normal first [facility] 2024 9:19am Cystic fibrosis carrier September 22, [...] 9:19 am Supervision of normal first [facility] 2024 9:19am Cystic fibrosis carrier September 22, [...] :26am History of total splenectomy November 11 9:26am November 11, 2024 9:26a m Pyelonephritis [...] Supervision of normal first Ju 2024 9:51am Chief Complaint Admit Date 17wk [...] 9:19 am Supervision of normal [facility] 2024 9:19am Cystic fibrosis carrier September 22, [...] Supervision of normal first Ju 2024 9:51am Chief Complaint Admit Date 21wk ob August 26, 2024 9:19 am 25wk ob September 22, 2024 8:24 am PYELONEPHRITIS IN September 22, 2 025 4:45pm R/O LABOR September 22, 2024 5:35 pm PYELONEPHRITIS IN September 23 2 025 6:59am E ORDERS October 13, [...] 9:19 am Supervision of normal [facility] 2024 9:19am Cystic fibrosis carrier September 22, [...] :26am History of total splenectomy November 11 9:26am November 11, 2024 9:26a m Pyelonephritis [...] 9:19 am Supervision of normal [facility] 2024 9:19am Cystic fibrosis carrier September 22, [...] of normal first Ju ly 2024 3:19pm Chief Complaint Admit Date 25wk [...] :19pm History of total splenectomy December 23, 2 025 3:19pm December 23, 2024 3:19p m [...] :11pm History of total splenectomy December 30 2:11pm December 30, 2024 2:11p m Pyelonephritis affecting December 30, 2024 2:11pm Supervision of normal first Ju ly 2024 2:11pm Anemia in January 07, 2025 11:2 0am Cystic fibrosis carrier January 07, 2025 11:20am History of total splenectomy January 07, 2025 11:20am January 07, 2025 11:2 0am Pyelonephritis affecting January 07, 2025 11:20am Supervision of normal first Ju ly 2024 11:20am Chief Complaint Admit Date 25wk ob September [...] ob *Happy due date* January 07 11:20am RULE OUT LABOR January 11, 2025 8:50 pm Additional Source Comments Reason for Visit (unrecogniz ed section and content) Reason Comments Establish Care Reason Comments Consult discuss ct scan of a bdomen and pelvis from 01/28/19 Status Reason Specialty Diagnoses / Procedures Referre d By Contact Referred To Contact Closed Radiology Diagnoses Abdominal pain, unspecified abdominal location Weight loss Nausea Procedures NM Hepatobiliary With Ejection Fraction Sergio Gray MD [address] [facility] [address] [place] [address] RADIOLOGY [address] [place] [address] Reason Comments Head Injury Pt states she fainte d at work at approx 1620. Pt hit head, complaining of rt sided head pain. pos LOC pt does not remember incident Loss of Consciousness Reason Comments Seizures near syncopal episod es - states she is unsure if they are seizures or not Reason Comments Syncope s/p d/c [facility] ED for syncopal event 12/22. Pt states she has hx of syncope since about the second grade. She did have a cardiac work up and [facility] in 2017. Information is in Care Everywhere. Status Reason Specialty Diagnoses / Procedures Referred By Contact Referred To Contact Pending Review Cardiology Diagnoses Syncope, unspecified syncope type Kenn Valdez MD [address] [place] [address] Chintan Ling MD [address] [place] [id number] Reason Comments Loss of Consciousness F/U ER VISIT Status Reason Specialty Diagnoses / Procedures Referred By Contact Referred To Contact Pending Review Cardiology Diagnoses Syncope, unspecified syncope type Palpitations Procedures Cardiac event monitor Chintan Ling MD [address] [place] [address] Reason Comments Loss of Consciousness was in [...] Closed Neurology Diagnoses Syncope, unspecified syncope type SpringJennifer CNP [address] [place] [address] Ernesto Saxena MD [address] [place] [address] Status Reason Specialty Diagnoses / Procedures Referre d By Contact Referred To Contact Diagnoses Abdominal pain, unspecified abdominal location BRBPR (bright red blood per rectum) Weight loss Nausea Abdominal pain, unspecified abdominal location [R10.9] BRBPR (bright red blood per rectum) [K62.5] Weight loss [R63.4] Nausea [R11.0] Sergio Gray MD [address] [facility] [place] [address] Reason Comments SEPSIS Alert Urinary Tract Infection [...] pain. Pt crying stating abd pain of 03/03. Pt stated she didn't think Ibuprophen and [...] pcp list and chooses dr belle in [place] - per Darling - paperwork from the office is required prior to appointment being made - zac Hastings - paperwork will be given to pt later today and appointment made tomorrow - [facility] following Plan of care updated continue IV [...] section and content) DATE CREATED AUTHOR 12/14/2018 [facility] DATE CREATED AUTHOR AUTHOR'S ORGANIZ ATION 01/12/2020 [facility] DATE CREATED AUTHOR AUTHOR'S ORGANIZ ATION 11/21/2020 [facility] DATE CREATED AUTHOR AUTHOR'S ORGANIZ ATION 02/11/2021 [facility] DATE CREATED AUTHOR AUTHOR'S ORGANIZ ATION 02/17/[address] [facility] DATE CREATED AUTHOR AUTHOR'S ORGANIZ ATION 04/22/2022 [facility] DATE CREATED AUTHOR AUTHOR'S ORGANIZ ATION 07/27/2022 [facility] DATE CREATED AUTHOR AUTHOR'S ORGANIZ ATION 11/03/2022 [facility] DATE CREATED AUTHOR AUTHOR'S ORGANIZ ATION 11/30/2022 [facility] DATE CREATED AUTHOR AUTHOR'S ORGANIZ ATION 03/20/[address] [facility] DATE CREATED AUTHOR AUTHOR'S ORGANIZ ATION 08/08/2024 [facility] DATE CREATED AUTHOR AUTHOR'S ORGANIZ ATION 09/28/2024 [facility] DATE CREATED AUTHOR AUTHOR'S ORGANIZ ATION 10/12/2024 [facility] DATE CREATED AUTHOR AUTHOR'S ORGANIZ ATION 10/14/2024 [facility] DATE CREATED AUTHOR AUTHOR'S ORGANIZ ATION 01/11/2025 [facility] Mohit Eubanks LPN - 12/23/2019 5:26 PM Kenn Baron MD - 12/23/2019 2:42 PM Erika Joaquin RN - 12/23/2019 2:38 PM Erika Joaquin RN - 12/23/2019 2:31 PM EDT ED Notes (unrecognized secti on and content) IV DISCONTINUED CANNULA INTACT DRESSING PLACED, DISCHARGE INSTRUCTIONS REV'D DENIES QUESTIONS, WHEEL CHAIR TO EXIT WITH MOM [facility] ED Attending Note: NAME: Aimee Reddy 19 y.o. CSN: [id number] PCP: Jennifer Haley CNP History: Chief Complaint: [...] with biopsy; Surgeon: Sergio Gray MD; Location: [facility] OR; Service: General Surgery EGD N/A 02/24/2019 Procedure: ESOPHAGOGASTRODUODENOSCOPY with biopsy; Surgeon: Sergio Gray MD; Location: [facility] OR; Service: General Surgery SPLENECTOMY, TOTAL 2011 [...] file Gets together: Not on file Attends jew service: Not on file Active member of [...] Colorless, Yellow Clarity, Urine Clear Clear Specific [place] 1.028 (H) 1.005 - 1.025 pH, Urine [...] Syncope, unspecified syncope type Kenn Valdez MD [facility] Emergency Department (Please note that portions of this note have been completed with a voice recognition software. Efforts were made to correct any errors, but occasionally words are mis-transcribed.) Kenn Valdez MD 12/23/19 5544 Mother arrives to bedside Syncopal episode 1 [...] continued plan of care. ED PROVIDER NOTE [facility] NAME: Aimee Reddy AGE: 18 y.o. : 2000 VISIT DATE: 11/05/2018 CSN: [id number] PCP: Physician No Chief Complaint Patient presents [...] Yellow Clarity, Urine Hazy (A) Clear Specific [place] 1.018 1.005 - 1.025 pH, Urine 5.0 [...] OF 0.9% NS INFUSED. ED PROVIDER NOTE [facility] NAME: Aimee Reddy AGE: 18 y.o. 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 Jeffrey Colon DO 01/27/[address] MICHAEL MAY. PT. REPORT REC'D FROM CARL Lopez RN. PT. SITTING QUIETLY ON CART IN ROOM. [facility]. NO DISTRESS NOTED. Pt states cramping started 6 months ago, bloody diarrhea about 2 months ago, abd pain of 10/10. Pt also complains of nausea, no vomiting documented in this encounter Sergio Gray MD - 02/24/2019 8:25 AM EDSergio Contreras MD - 02/04/2019 1:23 PM Jt Rodriguez MD - 11/05/2018 3:36 PM EDT H&P Notes (unrecognized sect ion and content) INTERVAL HISTORY AND PHYSICAL Patient Name: Aimee Reddy Admit Date: [id number] MR #: [id number] : 2000 The H&P has been reviewed and the patient has been examined. I concur with the findings of the H&P. There are no significant changes. It is appropriate to proceed with the planned procedure. Sergio Gray MD 02/24/2019 8:25 AM HISTORY & PHYSICAL EXAMINATION Patient Name: Aimee Reddy MR #: [id number] : 2000 Physicians: Jennifer Haley CNP (Family); [...] file Gets together: Not on file Attends jew service: Not on file Active member of [...] Last colonoscopy none documented in this encounter [facility] Medicine Inpatient H&P 11/05/2018 Jt Lewis MD [facility] Patient: Aimee Reddy Date of : 2000 (18 y.o.) PCP: Physician No Assessment Aimee Reddy 18 y.o. female presented with Sepsis secondary to UTI Active Problems: Sepsis (HCC) SNOMED CT(R): SEPSIS Plan: Admit to [facility] clinical condition fair CODE STATUS full code [...] Carmen Moore RN - 02/24/2019 9:34 AM EDTHiNo durbin RN - 02/24/2019 9:13 AM EDTJoAmy knowles RN - 02/24/2019 7:45 AM EDT Nursing [...] Care Team (unrecognized sect ion and content) Guest House Manager Relationship Specialty Start Date End Date No, Physician [facility] PCP - General 04/22/22 Guest House Manager Relationship Specialty Start Date End Date , Physician [facility] PCP - General 04/22/22 Guest House Manager Relationship Specialty Start Date End Date [place], Jennifer Vasquez APRN PENSION MANAGER PCP - General 11/16/21 Guest House Manager Relationship Specialty Start Date End Date Spring, Jennifer Vasquez APRN - PENSION MANAGER PCP - General 11/16/21 Team Status: Inactive [...] Inactive Member Role Status Dates Ramya Voss BILLET HEATER, BILLET HEATER-C Attending Provider Active Start: July 01, 2024 [...] Inactive Member Role Status Dates Ramya Voss BILLET HEATER, BILLET HEATER-C Attending Provider Active Start: September 22, 2024 [...] Attending Provider Active Start: September 23, 2024 Guest House Manager Relationship Specialty Start Date End Date No, Physician [facility] PCP - General 04/22/22 Team Status: Active Member Role Status Dates No Primary Care Physician Primary Care Provider Active Team Status: Inactive Member Role Status Dates No Primary Care Physician Primary Care Provider Active Start: October 13, 2024 End: October 13, 2024 Ramya Voss BILLET HEATER, BILLET HEATER-C Attending Provider Active Start: October 13, 2024 End: October 13, 2024 Ramya [place] BILLET HEATER, BILLET HEATER-C Referring Provider Active Start: October 13, 2024 [...] 2024 End: October 15, 2024 Ramya Voss BILLET HEATER, BILLET HEATER-C Attending Provider Active Start: October 15, 2024 End: October 15, 2024 Team Status: Active Member Role Status Dates No Primary Care Physician Primary Care Provider Active Start: October 15, 2024 Ramya Voss BILLET HEATER, BILLET HEATER-C Attending Provider Active Start: October 15, 2024 Ramya Browns BILLET HEATER, BILLET HEATER-C Referring Provider Active Start: October 15, 2024 Team Status: Inactive Member Role Status Dates No Primary Care Physician Primary Care Provider Active Start: October 15, 2024 End: October 15, 2024 Ramya Browns BILLET HEATER, BILLET HEATER-C Attending Provider Active Start: October 15, 2024 End: October 15, 2024 Ramya [place] BILLET HEATER, BILLET HEATER-C Referring Provider Active Start: October 15, 2024 [...] Inactive Member Role Status Dates Ramya Voss BILLET HEATER, BILLET HEATER-C Attending Provider Active Start: November 25, 2024 [...] 2024 End: November 25, 2024 Ramya Voss BILLET HEATER, BILLET HEATER-C Attending Provider Active Start: November 25, 2024 End: November 25, 2024 Ramya Voss BILLET HEATER, BILLET HEATER-C Referring Provider Active Start: November 25, 2024 End: November 25, 2024 Team Status: Active Member Role Status Dates No Primary Care Physician Primary Care Provider Active Start: November 25, 2024 Ramya Voss BILLET HEATER, BILLET HEATER-C Attending Provider Active Start: November 25, 2024 Ramya Voss BILLET HEATER, BILLET HEATER-C Referring Provider Active Start: November 25, 2024 [...] Inactive Member Role/Relationship Status Dates Ramya Voss BILLET HEATER, BILLET HEATER-C Attending Provider Active Start: September 22, 2024 [...] 2024 End: October 13, 2024 Ramya Voss BILLET HEATER, BILLET HEATER-C Attending Provider Active Start: October 13, 2024 End: October 13, 2024 Ramya Voss BILLET HEATER, BILLET HEATER-C Referring Provider Active Start: October 13, 2024 [...] 2024 End: October 15, 2024 Ramya Voss BILLET HEATER, BILLET HEATER-C Attending Provider Active Start: October 15, 2024 End: October 15, 2024 Team Status: Inactive Member Role/Relationship Status Dates No Primary Care Physician Primary Care Provider Active Start: October 15, 2024 End: October 15, 2024 Ramya Voss BILLET HEATER, BILLET HEATER-C Attending Provider Active Start: October 15, 2024 End: October 15, 2024 Ramya Voss BILLET HEATER, BILLET HEATER-C Referring Provider Active Start: October 15, 2024 [...] Inactive Member Role/Relationship Status Dates Ramya Voss BILLET HEATER, BILLET HEATER-C Attending Provider Active Start: November 25, 2024 [...] 2024 End: November 25, 2024 Ramya Voss BILLET HEATER, BILLET HEATER-C Attending Provider Active Start: November 25, 2024 End: November 25, 2024 Ramya Voss BILLET HEATER, BILLET HEATER-C Referring Provider Active Start: November 25, 2024 [...] Inactive Member Role/Relationship Status Dates Ramya Voss BILLET HEATER, BILLET HEATER-C Attending Provider Active Start: September 22, 2024 [...] 2024 End: October 13, 2024 Ramya Voss BILLET HEATER, BILLET HEATER-C Attending Provider Active Start: October 13, 2024 End: October 13, 2024 Ramya Voss BILLET HEATER, BILLET HEATER-C Referring Provider Active Start: October 13, 2024 [...] 2024 End: October 15, 2024 Ramya Voss BILLET HEATER, BILLET HEATER-C Attending Provider Active Start: October 15, 2024 End: October 15, 2024 Team Status: Inactive Member Role/Relationship Status Dates No Primary Care Physician Primary Care Provider Active Start: October 15, 2024 End: October 15, 2024 Ramya Voss BILLET HEATER, BILLET HEATER-C Attending Provider Active Start: October 15, 2024 End: October 15, 2024 Ramya Voss BILLET HEATER, BILLET HEATER-C Referring Provider Active Start: October 15, 2024 [...] Inactive Member Role/Relationship Status Dates Ramya Voss BILLET HEATER, BILLET HEATER-C Attending Provider Active Start: November 25, 2024 [...] 2024 End: November 25, 2024 Ramya Voss BILLET HEATER, BILLET HEATER-C Attending Provider Active Start: November 25, 2024 End: November 25, 2024 Ramya Voss BILLET HEATER, BILLET HEATER-C Referring Provider Active Start: November 25, 2024 [...] January 07, 2025 End: January 07, 2025 Team Status: Inactive Member Role/Relationship Status Dates No Primary Care Physician Primary Care Provider Active Start: January 11, 2025 End: January 11, 2025 Yvrose Mcmillan CNM Attending Provider Active S tart: January 11, 2025 End: January 11, 2025 Scheduled Active and Recently Administ ered [...] BE BASED ON THE PRIMARY CLINICAL RECORDS. [facility] [employer] [facility]. provides no warranty or guarantee of the accuracy or completeness of information in this document.
[2025-01-12 23:21] VITALS: BP 133/82; PULSE 77; RESP 16; TEMP 36.6
--- NOTE | 2025-01-12 23:22 | HP.PCM.OB_ITS ---
HPI - General General Date of Admission: 01/12/25 HPI Narrative AIMEE REDDY, is a 24 F who presents IAL 5 cm dilated regular ctx no vb lof admits good fm Maternal Data Information TERESITA Calculator Estimated Delivery Date Method Current WG Current Estimate 01/07/25 Ultrasound #1 40w 6d Other Estimates 12/29/24 LMP (Certain) 42w 1d PFSH PFSH Allergy/AdvReac Type Severity Reaction Status Date / Time No Known Allergies Allergy Verified 01/07/25 11:21 Surgical History History of splenectomy Social History adopted: No household members: family current occupational status: employed current occupation: [employer] pets and animals: Yes pets and animals: dog(s) history of recent travel: No sexually active: Yes Smoking Status: Former smoker Electronic Cigarette Use: with nicotine alcohol intake: current alcohol intake frequency: a few times a month details: not while substance use type: does not use well-balanced diet: daily or most days caffeine: No eating out: 1-3 times/week during the past year weight has: remained stable what type of physical activity do you participate in: none ana m/yazidism: Pentecostalism seatbelt use: always do you feel safe at home: Yes additional social history: BF- Brenda- Cayden Coley History 1 Elective abortions Hx Para 0 Spontaneous abortions Hx # Term Pregnancies Ectopic pregnancies Hx # Pregnancies Multiple births # of living children Visit Details Expected Delivery Route/Plan Labor Preferences- CB/BF classes: enc labor support person: Karen labor intervention preferences: [] pain management options preferred: [] cut cord/dad catch: cord : yes PP control planned: discused discussed possible routes of delivery and associated risks: [] special requests: [] Plans Covid status: [] Flu vaccine: [] Tdap vaccine: given Rhogam: NA LARC form signed: yes Problem list reviewed and updated with the most current plan of care details and appropriate orders placed. Relevant counseling for the gestational age provided. Continue routine care and follow up unless otherwise noted in visit notes/problem list details OB Flowsheet Initial Weight: 125 lb Date -?-?-?-?-?-?-?-?-?-?-?-?- EGA Weight BP Urine Prot -?-?-?-?-?-?-?-?-?-?-?-?- Glucose FHR FuHt Pres Dilation -?-?--?-?-?-?-?-?-?-?-?-?- Effaced St Visit Note 05/29/24 -?-?-?-?-?-?-?-?-?-?-?-?- 8w 1d 125 lb 4 oz (+4 oz) 127/76 -?-?-?-?-?-?-?-?-?-?-?-?- 166 -?-?-?-?-?-?-?-?-?-?-?-?- LC CRL 1.62 not con with LMP. LMP changed to 01/07/2025. desires nipt/carrier screening. will return in 2 weeks. 07/01/24 -?-?-?-?-?-?-?-?-?-?-?-?- 12w 6d 124 lb 6 oz (-10 oz) 107/61 Negative -?-?-?-?-?-?-?-?-?-?-?-?- Negative 145 -?-?-?-?-?-?-?-?-?-?-?-?- MH-No VB. Nausea problematic. Gayle sent. 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 Br US confirm FHT 07/28/24 -?-?-?-?-?-?-?-?-?-?-?-?- 16w 5d 127 lb (+2 lb) 112/70 Negative -?-?-?-?-?-?-?-?-?-?-?-?- Negative 142 -?-?-?-?-?-?-?-?-?-?-?-?- JV- no complaint s today other than FOB needs labs for CF. 08/26/24 -?-?-?-?-?-?-?-?-?-?-?-?- 20w 6d 129 lb (+4 lb) 108/62 Negative -?-?-?-?-?-?-?-?-?-?-?-?- Negative 135 -?-?-?-?-?-?-?-?-?-?-?-?- SM- no vb lof go od fm no reuglar ctx 09/22/24 -?--?-?-?-?-?-?-?-?-?-?-?- 24w 5d 137 lb 4 oz (+12 lb 4 oz) 98/60 Negative -?-?-?-?-?-?-?-?-?-?-?-?- Negative 138 -?-?-?-?-?-?-?-?-?-?-?-?- MH-No VB, LOF. G ood FM. 10/13/24 -?-?-?-?-?-?-?-?-?-?-?-?- 27w 5d 137 lb 8 oz (+12 lb 8 oz) 108/71 Negative -?-?-?-?-?-?--?-?-?-?-?-?- Negative 140 28 -?-?-?-?-?-?-?-?-?-?-?-?- SM- no vb lof go od fm no reuglar ctx labs today 10/27/24 -?-?-?-?-?-?-?-?-?-?-?-?- 29w 5d 141 lb 8 oz (+16 lb 8 oz) 119/73 Negative -?-?-?-?-?-?-?-?-?-?-?-?- Negative 130 30 -?-?-?-?-?-?-?-?-?-?-?-?- KW- no vb/lof/ct x. good fm. tdap and larc today. discussed anatomy US and many questions answered. 11/11/24 -?-?-?-?-?-?-?-?-?-?-?-?- 31w 6d 144 lb (+19 lb) 117/76 Negative -?-?-?-?-?-?-?-?-?-?-?-?- Negative 135 31 -?-?-?-?-?-?-?-?-?-?-?-?- JV- no lof, vagi nal bleeding, or dec fm today. she was having somewhat of a hard time feeling movement last night. has an anterior placenta. she is mildly anemic but was not taking pnv. she wants to go back on those before starting sloFE 11/25/24 -?-?-?-?-?-?-?-?-?-?-?-?- 33w 6d 146 lb 2 oz (+21 lb 2 oz) 112/82 Negative -?-?-?-?-?-?-?-?-?-?-?-?- Negative 147 32 -?-?-?-?-?--?-?-?-?-?-?-?- MH-No FB, LOF. G ood Fm. Some irreg cramping. S&S labor reviewed. Rpt CBC today 12/09/24 -?-?-?-?-?-?-?-?-?-?-?-?- 35w 6d 148 lb 2 oz (+23 lb 2 oz) 127/76 Negative -?-?-?-?-?-?-?-?-?-?-?-?- Negative 125 34 -?-?-?-?-?-?-?-?-?-?-?-?- SM- no vb lof go od fm no regular ctx measuring small growth US ordered 12/15/24 -?-?-?-?-?-?-?-?-?-?-?-?- 36w 5d 152 lb (+27 lb) 125/82 -?-?-?-?-?-?-?-?-?-?-?-?- 135 33 Cephalic 0 -?-?-?-?-?-?-?-?-?-?-?-?- SM- no vb lof go od fm n oregular ctx SM- no vb lof good fm n oreg ular ctx normal growth anf WEN 12/23/24 -?-?-?-?-?-?-?-?-?--?-?-?- 37w 6d 149 lb 6 oz (+24 lb 6 oz) 118/82 Negative -?-?-?-?-?-?-?-?-?-?-?-?- Negative 140 34 Cephalic 1 -?-?-?-?-?-?-?--?-?-?-?-?- 80 -2 JV- no lof , vaginal bleeding, or dec fm. still measures small but growth was normal. 12/30/24 -?-?-?-?-?-?-?-?-?-?-?-?- 38w 6d 150 lb (+25 lb) 128/86 Negative -?-?-?-?-?-?-?-?-?-?-?-?- Negative 134 37 Cephalic 1 .5 -?-?-?-?-?-?-?-?-?-?-?-?- 80 -2 JV- no lof , vaginal bleeding, or dec fm. labor precautions discussed. 01/07/25 -?-?-?-?-?-?-?-?-?-?-?-?- 40w 0d 150 lb 2 oz (+25 lb 2 oz) 134/88 Negative -?--?-?-?-?-?-?-?-?-?-?-?- Negative 154 37.5 Cephalic 1 .5 -?-?-?-?-?-?-?-?-?-?-?-?- 50 -2 JV-no lof, vaginal bleeding, or dec fm. planning 41 week IOl. NST FHR Rate Baby A Baseline: 160 Variability:: Moderate Accelerations:: 15 x 15 Decelerations:: None NST Reactive:: Yes FHR Category:: Category I Uterine Activity:: q3-5 ROS Constitutional Constitutional: Reports systems reviewed and no addt'l complaints, except as documented ENT HEENT: Reports systems reviewed and no addt'l complaints, except as documented Cardiovascular Cardiovascular: Reports systems reviewed and no addt'l complaints, except as documented Respiratory/Chest Respiratory/Chest: Reports systems reviewed and no addt'l complaints, except as documented Gastrointestinal Gastrointestinal: Reports systems reviewed and no addt'l complaints, except as documented and nausea; Denies abdominal pain Genitourinary Genitourinary: Reports systems reviewed and no addt'l complaints, except as documented, contractions Details: present and frequency (regular ) and movement Details: present Musculoskeletal Musculoskeletal: Reports systems reviewed and no addt'l complaints, except as documented Integumentary Integumentary: Reports as per HPI Neurologic Neurologic: Reports systems reviewed and no addt'l complaints, except as documented Endocrine Endocrinology: Reports systems reviewed and no addt'l complaints, except as documented Vital Signs Vital Signs Vital Signs: Weight Weight: 151 lb Body Mass Index (BMI) 25.9 Physical Exam Const alert, oriented x3 and healthy appearing Constitutional Narrative: uncomfortable with contractions HEENT normocephalic and moist oral mucous membranes Head and Scalp: atraumatic Neck full ROM, no lymphadenopathy, supple and thyroid normal General: trachea midline Thyroid: thyroid normal Lymph Lymphatic: no lymphadenopathy noted Chest inspection of chest normal Resp normal respiratory effort Cardio regular rate GI soft to palpation and non-tender GI Narrative: gravid Inspection: gravid external exam normal Bimanual Exam - Vag & Uterus: uterus non-tender Manual OB Exam: estimated gestational size appropriate, presentation cephalic, dilated, effaced and station Extremity normal to inspection General Extremity: Negative for edema Skin no rashes or lesions noted Neuro deep tendon reflexes 2+ bilaterally Motor Exam: strength 5/5 throughout and clonus absent Psych mental status grossly normal Labs Labs Labs: Blood Type O POSITIVE Antibody Screen NEGATIVE Hct 30.1 % (37-47) L Hgb 9.8 g/dL (12.0-15.0) L Obstetrics Ultrasound Syphilis Total Ab Nonreactive (Nonreactive) Rubella IgG Antibody Non-Reactive (Nonreactive) Hep Bs Antigen Non-Reactive (Nonreactive) Hepatitis C Antibody Non-Reactive (Nonreactive) Chlamydia DNA (CONOR) Negative (Negative) N.gonorrhoeae DNA (CONOR) Negative (Negative) HIV 1&2 Antibody Nonreactive (Nonreactive) Glucose 1 Hr 50 gm 115 mg/dL (70-140) Assessment & Plan (1) History of total splenectomy: (2) Anemia in : QUALIFIERS: Trimester: third trimester Qualified Code(s): O99.013 - Anemia complicating , third trimester COMMENT: add Fe/stable (3) Pyelonephritis affecting : QUALIFIERS: Trimester: second trimester Qualified Code(s): O23.02 - Infections of kidney in , second trimester COMMENT: ceftriaxone x 2 days then keflex x 10 days, then daily keflex prophylaxis. (4) Cystic fibrosis carrier: COMMENT: FOB neg. 06/04 (5) Supervision of normal first : QUALIFIERS: Trimester: third trimester Qualified Code(s): Z34.03 - Encounter for supervision of normal first , third trimester COMMENT: [id number], TERESITA 12/29/24, girl Guerrero Gutierrez (6) : QUALIFIERS: Weeks of gestation: 40 weeks Qualified Code(s): Z3A.40 - 40 weeks gestation of COMMENT: GBS Negative, LR NIPT Carrier Neg. Carrier for Cystic Fibrosis;FOB Karen Merino negative, nl anatomy (7) Active labor at term: PLAN: Plan Patient presents IAL, plan expectant management for , pitocin/AROM PRN if needed. Pain management: plans epidural. GBS neg. Management of any complications: none I have reviewed the [facility] and made any clinically relevant updates.
--- OUTSIDE RECORDS SUMMARY | 2025-01-12 23:27 | XMS RPT_ITS | CCD ---
Author Organization [facility] Care Team Providers Care Vocational Nursing Instructor Name Role Phone Jennifer Haley Primary Care Provider [phone] Unavailable Primary Care Provider Unavailzena e Jennifer Haley Primary Care Provider RIC LANTIGUA Attending Unavailable Jennifer Haley Unavailable Arianna Wyatt Unavailable Unavailable JENNIFER HALEY Attending Unavailable JENNIFER HALEY Primary Care Unavailable Britt Aguilar Primary Care Physician [phone] JULIETH WATTERS Admitting Unavailable SPRINGJENNIFER Primary Care [...] Attending Unavailable RAMYA VOSS Referring [place]available [place] [facility] [place] Unavailable [place] SOLAR SALES REPRESENTATIVE AND ASSESSOR - Jennifer MADERA Primary Care Pro vider Kassi Ontiveros CNM Attending Provider Kasis Ontiveros CNM Referring Provider [phone] Ramya Bryant Attending Provider Joce Caldera DO, [...] Provider Jacqueline VERDE, Dr. Galvez Referring Provider Jacqueline VERDE, Dr. Galvez Attending Provider [phone] Ramya Voss NP Attending Unavailable Care Physician, [...] No Primary Primary Care Unava ilable Bipin CARPENTER MATE, Ramya Attending Unavailable Bipin CARPENTER MATE, Ramya Referring Unavailable Bipin CARPENTER MATE, Ramya Referring Unavailable Bipin CARPENTER MATE, Ramya Attending Unavailable Care Physician, No Primary Primary Care Unava ilable Kassi Ontiveros Attending Unavailable Mercedez Justin Attending Unavailable Care Physician, No Primary Referring Unava ilable Bipin CARPENTER MATE, Ramya Attending Unavailable Care Physician, No Primary Primary Care Unava ilable Care Physician, No Primary Referring Unava ilable Care Physician, No Primary Primary Care Unava ilable Macon CARPENTER MATE, Ramya Attending Unavailable Care Physician, No Primary [...] Physician, No Primary Primary Care Unava ilable Macon CARPENTER MATE, Ramya Attending Unavailable [place]on CARPENTER MATE, Ramya Referring Unavailable Care Physician, No Primary [...] ilable Mimi Thomas Attending Unavailabl e Bipin CARPENTER MATE, Ramya Attending Unavailable Traceee VelMimi tinoco Attending [...] 01/27/22 Stop Date: 02/01/22 Status: Ordered Pnv No.495-Iw-Ph7-Dha-Epa -Fish 400 mcg-35 mg- 25 mg-5 mg tablet,chewable (14 sources) Start: Pnv No.069-Km-Gl5-Dha-Ep a-Fish 400 mcg-35 mg- 25 mg-5 mg tablet,chewable Active {tbl} PO May 14, 2024 1:00am Start: 05-14-2024 Pnv No.153-Fa- Wb5-Sxq-Bjd-Fish 400 mcg-35 mg- 25 mg-5 mg tablet,chewable [...] Onset: 07-13-2024 08-26-2024 Episodic Comment on above: [id number], TERESITA 12/29/24, girl Colbie BF Brenda LR [...] Caldera on 01-07-2025 Glucose Ql (U) Negative [facility] Laboratory - UrinalysisOrder ed By: Mimi Caldera on 01-07-2025 Protein Ql (U) Negative [facility] Progressive Care Manager Office Visit Reporton 01-07-2025 Progressive Care Manager Office Visit Report [facility]'s [address], [address] [place] [address] OFFICE VISIT Date of Service: 01/07/25 MR#: [id number] Acct: [id number] Name: AIMEE REDDY Rep #: [id number] : 2000 Provider: Dr. 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 Normal [facility] Laboratory - Chemistry and C hemistry - challengeOrdered By: Mimi Caldera on 12-30-2024 Glucose Ql (U) Negative [facility] Laboratory - UrinalysisOrder ed By: Mimi Caldera on 12-30-2024 Protein Ql (U) Negative [facility] Progressive Care Manager Office Visit Reporton 12-30-2024 Progressive Care Manager Office Visit Report [facility] [address], [address] [place] [address] OFFICE VISIT Date of Service: 12/30/24 MR#: [id number] Acct: [id number] Name: AIMEE REDDY Rep #: [id number] : 2000 Provider: Dr. Mimi Garcia, Age/Sex: 24/F [place] [facility] [place]: Signed Intake Vital Signs 11/11/24 09:33 12/23/24 15:26 12/30/24 14:13 Height 5 ft 4 in 5 ft 4 in 5 ft 4 in Weight: 150 lb BMI 25.7 BP 128/86 H Intake Visit Reasons: 39 wk ob Machine Programmer Required: No Is patient in pain?: No [...] family current occupational status: employed current occupation: [employer] pets and animals: Yes pets and animals: [...] activity do you participate in: none ana m/yazidism: Mormon seatbelt use: always do you feel safe [...] reuglar ct (more content not included)... Normal [facility] Laboratory - Chemistry and C hemistry - challengeOrdered By: Mimi Caldera on 12-23-2024 Glucose Ql (U) Negative [facility] Laboratory - UrinalysisOrder ed By: Mimi Caldera on 12-23-2024 Protein Ql (U) Negative [facility] Progressive Care Manager Office Visit Reporton 12-23-2024 Progressive Care Manager Office Visit Report [facility] [address], [address] [place] [address] OFFICE VISIT Date of Service: 12/23/24 MR#: [id number] Acct: [id number] Name: AIMEE REDDY Rep #: [id number] : 2000 Provider: Dr. 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 Normal [facility] Rule out Beta Strep (Grp. B) on 12-18-2024 TREVON Group B Beta Streptococcus is not isolated. Normal [facility] Comment on above: Performed By: #### M 921.1200 ####[facility] [address] [place], [address] Progressive Care Manager Office Visit Reporton 12-15-2024 Progressive Care Manager Office Visit Report [facility] [address], [address] [place] [address] OFFICE VISIT Date of Service: 12/15/24 MR#: [id number] Acct: [id number] Name: AIMEE REDDY Rep #: [id number] : 2000 Provider: Dr. 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 Normal [facility] Screening beta-hemolytic Str eptococcus cultureOrdered By: Leonor Phillips on 12-15-2024 Beta-hemolytic Streptococcus culture Group B Beta Streptococcus is not isolated. [facility] OB Limited With Biometricson 12-11-2024 OB Limited With Biometrics [facility] Imaging Services [address] [place], [place] [id number] OB Limited With Biometrics MR#: [id number] Acct: [id number] Name: AIMEE REDDY Rep #: [id number] : 2000 F 24 From: Lobo tilley MD PCP: Care Physician,No Primary Status: REG CLI Study: OB Limited With Biometrics Date of Exam: 12/11 Exam# [id number] Ordering Dr: Leonor Phillips PROCEDURE: OB LIMITED [...] with the normal expected range. Reading Location: [facility] CC: Dr. Leonor Phillips MD; No Primary Care Physician Maintenance Inspector: Signed Normal [facility] Laboratory - Chemistry and C hemistry - challengeOrdered By: Leonor Phillips on 12-09-2024 Glucose Ql (U) Negative [facility] Laboratory - UrinalysisOrder ed By: Leonor Phillips on 12-09-2024 Protein Ql (U) Negative [facility] Progressive Care Manager Office Visit Reporton 12-09-2024 Progressive Care Manager Office Visit Report [facility] [address], [address] [place] [address] OFFICE VISIT Date of Service: 12/09/24 MR#: [id number] Acct: [id number] Name: AIMEE REDDY Rep #: [id number] : 2000 Provider: Dr. Leonor ha MD Age/Sex: 24/F [place] [facility] [place]: Signed Intake Vital Signs 07/01/24 09:26 11/25/24 09:57 12/09/24 09:26 12/09/24 09:30 Height 5 ft 4 in 5 ft 4 in 5 ft 4 in 5 ft 4 in Weight: 148 lb 2 oz BMI 25.4 BP 127/76 H Intake Visit Reasons: 36wk ob Machine Programmer Required: No Is patient in pain?: No [...] family current occupational status: employed current occupation: [employer] pets and animals: Yes pets and animals: [...] activity do you participate in: none ana m/yazidism: Mormon seatbelt use: always do you feel safe [...] no vb (more content not included)... Normal [facility] Absolute lymphocyte countOrd ered By: Ramya Voss on 11-25-2024 Lymphocytes Auto (Unsp spec) [#/Vol] 3.10 10*3/uL 0.83-4.51 [facility] Absolute neutrophil countOrd ered By: Ramya Voss on 11-25-2024 Neutrophils (Bld) [#/Vol] 10.6 10*3/uL High 2.0-7.7 [facility] Automated lymphocyte count a s percentage of total leukocytesOrdered By: Ramya Voss on 11-25-2024 Lymphocytes/100 WBC Auto (Unsp spec) 19.4 % 19-41 [facility] Basophil percentageOrdered B y: Ramya Voss on 11-25-2024 Basophils/100 WBC (Bld) 0.6 % 0-1 [facility] CBC W/Diff, Automatedon Absolute Lymph 3.10 X10 3/uL Normal 0.83-4.51 [facility] Comment on above: Performed By: #### L 100.0100 ####[facility] [address] [place], [address] Absolute Neut 10.6 X10 3/uL High 2.0-7.7 [facility] Comment on above: Performed By: #### L 100.0100 ####[facility] [address] [place], [address] Basophils/100 WBC (Bld) 0.6 % Normal 0-1 [facility] Comment on above: Performed By: #### L 100.0100 ####[facility] [address] [place], [address] Eosinophils/100 WBC (Bld) 3.1 % Normal 0-5 [facility] Comment on above: Performed By: #### L 100.0100 ####[facility] [address] [place], [address] Erythrocyte distribution width (RBC) [Ratio] 13.6 % Normal 11.6-14.6 [facility] Comment on above: Performed By: #### L 100.0100 ####[facility] [address] [place], [address] Hematocrit (Bld) [Volume fraction] 31.9 % Low 37-47 [facility] Comment on above: Performed By: #### L 100.0100 ####[facility] [address] [place], [address] Hemoglobin (Bld) [Mass/Vol] 10.6 g/dL Low 12.0-15.0 [facility] Comment on above: Performed By: #### L 100.0100 ####[facility] [address] [place], [address] IG% 1.700 High 0.0-0.9 [facility] Comment on above: Result Comment: IG% - Immature Granulocytes (promyelocytes, myelocytes and metamyelocytes) > 1% indicates that a LEFT SHIFT is Present. Performed By: #### L 100.0100 ####[facility] [address] [place], [address] Lymphocytes/100 WBC (Bld) 19.4 % Normal 19-41 [facility] Comment on above: Performed By: #### L 100.0100 ####[facility] [address] [place], [address] MCH (RBC) [Entitic mass] 29.6 pg Normal 27.0-32.0 [facility] Comment on above: Performed By: #### L 100.0100 ####[facility] [address] [place], [address] MCHC (RBC) [Mass/Vol] 33.2 g/dL Normal 32-36 [facility] Comment on above: Performed By: #### L 100.0100 ####[facility] [address] [place], [address] MCV (RBC) [Entitic vol] 89.1 fL Normal 81-99 [facility] Comment on above: Performed By: #### L 100.0100 ####[facility] [address] [place], [address] Monocytes/100 WBC (Bld) 9.3 % Normal 0-10 [facility] Comment on above: Performed By: #### L 100.0100 ####[facility] [address] [place], [address] Neutrophils/100 WBC (Bld) 65.9 % Normal 47-70 [facility] Comment on above: Performed By: #### L 100.0100 ####[facility] [address] [place], [address] Nucleated RBC (Bld) [#/Vol] 0 10*3/uL Normal 0-5 [facility] Comment on above: Performed By: #### L 100.0100 ####[facility] [address] [place], [address] Platelet mean volume (Bld) [Entitic vol] 12.6 fL High 6.2-12.0 [facility] Comment on above: Performed By: #### L 100.0100 ####[facility] [address] [place], [address] Platelets (Bld) [#/Vol] 338 10*3/uL Normal 150-450 [facility] Comment on above: Performed By: #### L 100.0100 ####[facility] [address] [place], [address] RBC (Bld) [#/Vol] 3.58 10*6/uL Low 4.2-5.4 [facility] Comment on above: Performed By: #### L 100.0100 ####[facility] [address] [place], [address] RDW SD 44.0 fl High 35.1-43.9 [facility] Comment on above: Performed By: #### L 100.0100 ####[facility] [address] [place], [address] WBC (Bld) [#/Vol] 16.0 10*3/uL High 4.4-11.0 [facility] Comment on above: Performed By: #### L 100.0100 ####[facility] [address] [place], [address] Eosinophil percentageOrdered By: Ramya Voss on 11-25-2024 Eosinophils/100 WBC (Bld) 3.1 % 0-5 [facility] Erythrocyte distribution wid th ratioOrdered By: Ramya Voss on 11-25-2024 Erythrocyte distribution width (RBC) [Ratio] 13.6 % 11.6-14.6 [facility] Erythrocyte distribution wid th standard deviationOrdered By: Ramya Voss on 11-25-2024 Erythrocyte distribution width (RBC) [Ratio] 44.0 fl High 35.1-43.9 [facility] Hematocrit Auto (Bld) [Volum e fraction]Ordered By: Ramya Voss on 11-25-2024 Hematocrit (Bld) [Volume fraction] 31.9 % Low 37-47 [facility] Hemoglobin measurementOrdere d By: Ramya Voss on 11-25-2024 Hemoglobin (Bld) [Mass/Vol] 10.6 g/dL Low 12.0-15.0 [facility] Immature granulocytes/100 WB C Auto (Bld)Ordered By: Ramya Voss on 11-25-2024 Immature granulocytes/100 WBC (Bld) 1.700 % High 0.0-0.9 [facility] Comment on above: IG% - Immature Granu locytes (promyelocytes, myelocytes and metamyelocytes) > 1% indicates that a LEFT SHIFT is Present. Laboratory - Chemistry and C hemistry - challengeOrdered By: Ramya Voss on 11-25-2024 Glucose Ql (U) Negative [facility] Laboratory - UrinalysisOrder ed By: Ramya Voss on 11-25-2024 Protein Ql (U) Negative [facility] MCV (mean corpuscular volume ) determinationOrdered By: Ramya Voss on 11-25-2024 MCV (RBC) [Entitic vol] 89.1 fL 81-99 [facility] Mean corpuscular hemoglobin (MCH) determinationOrdered By: Ramya Voss on 11-25-2024 MCH (RBC) [Entitic mass] 29.6 pg 27.0-32.0 [facility] Mean corpuscular hemoglobin concentration (MCHC) determinationOrdered By: Ramya Voss on 11-25-2024 MCHC (RBC) [Mass/Vol] 33.2 g/dL 32-36 [facility] Mean platelet volume determi nationOrdered By: Ramya Voss on 11-25-2024 Platelet mean volume (Bld) [Entitic vol] 12.6 fL High 6.2-12.0 [facility] Monocyte percentageOrdered B y: Ramya Voss on 11-25-2024 Monocytes/100 WBC (Bld) 9.3 % 0-10 [facility] Neutrophil percentageOrdered By: Ramya Voss on 11-25-2024 Neutrophils/100 WBC (Bld) 65.9 % 47-70 [facility] Nucleated red blood cell per centageOrdered By: Ramya Voss on 11-25-2024 Nucleated RBC/100 WBC (Bld) [Ratio] 0 % 0-5 [facility] Progressive Care Manager Office Visit Reporton 11-25-2024 Progressive Care Manager Office Visit Report [facility] [address], [address] [place] [address] OFFICE VISIT Date of Service: 11/25/24 MR#: [id number] Acct: [id number] Name: AIMEE REDDY Rep #: [id number] : 2000 Provider: ANDREW early Age/Sex: 24/F [place] [facility] [place]: Signed Intake Vital Signs 07/01/24 09:26 11/11/24 09:33 11/25/24 09:57 Height 5 ft 4 in 5 ft 4 in 5 ft 4 in Weight: 144 lb 146 lb 2 oz BMI 24.7 25.0 BP 117/76 112/82 H Intake Visit Reasons: 34wk ob Chief Complaint: 34 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 -???- (more content not included)... Normal [facility] Platelet countOrdered By: Dave Voss on 11-25-2024 Platelets (Bld) [#/Vol] 338 10*3/uL 150-450 [facility] RBC Auto (Bld) [#/Vol]Ordere d By: Ramya Voss on 11-25-2024 RBC (Bld) [#/Vol] 3.58 10*6/uL Low 4.2-5.4 [facility] White blood cell (WBC) count Ordered By: Ramya Voss on 11-25-2024 WBC (Bld) [#/Vol] 16.0 10*3/uL High 4.4-11.0 [facility] Laboratory - Chemistry and C hemistry - challengeOrdered By: Mimi Caldera on 11-11-2024 Glucose Ql (U) Negative [facility] Laboratory - UrinalysisOrder ed By: Mimi Caldera on 11-11-2024 Protein Ql (U) Negative [facility] Progressive Care Manager Office Visit Reporton 11-11-2024 Progressive Care Manager Office Visit Report [facility], [address] [place] [address] OFFICE VISIT Date of Service: 11/11/24 MR#: [id number] Acct: [id number] Name: AIMEE REDDY Rep #: [id number] : 2000 Provider: Dr. 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 Normal [facility] Laboratory - Chemistry and C hemistry - challengeOrdered By: Yvrose Mcmillan on 10-27-2024 Glucose Ql (U) Negative [facility] Laboratory - UrinalysisOrder ed By: Yvrose Mcmillan on 10-27-2024 Protein Ql (U) Negative [facility] Progressive Care Manager Office Visit Reporton 10-27-2024 Progressive Care Manager Office Visit Report [facility] [address], [address] [place] [address] OFFICE VISIT Date of Service: 10/27/24 MR#: [id number] Acct: [id number] Name: AIMEE REDDY Rep #: [id number] : 2000 Provider: JOEL Jacobs ams Age/Sex: 24/F [place] [facility] [place] Status: Signed Intake Vital Signs 07/01/24 09:26 10/15/24 09:57 10/27/24 09:21 Height 5 ft 4 in 5 ft 4 in 5 ft 4 in Weight: 141 lb 8 oz BMI 24.3 BP 119/73 Intake Visit Reasons: 30wk ob Chief Complaint: 30wk OB Machine Programmer Required: No Is patient in pain?: No [...] family current occupational status: employed current occupation: [employer] pets and animals: Yes pets and animals: [...] activity do you participate in: none ana m/yazidism: Mormon seatbelt use: always do you feel safe at home: Yes additional social history: BF- Brenda- [place] History 1 Elective abortions Hx Para 0 Spontaneous abortions Hx # Term Pregnancies Ectopic pregnancies Hx # Pregnancies Multiple births # of living children HPI 30wk ob Details: AIEME REDDY is a 24 year old who [...] Negative -???-???-???-???-?? (more content not included)... Normal [facility] Urine Cultureon 10-16-2024 URC Culture exhibits no growth. Normal [facility] Comment on above: Performed By: #### M 100.2200 ####[facility] [address] [place], [address] Progressive Care Manager Office Visit Reporton 10-15-2024 Progressive Care Manager Office Visit Report [facility] [address], [address] [place] [address] OFFICE VISIT Date of Service: 10/15/24 MR#: [id number] Acct: [id number] Name: AIMEE REDDY Rep #: [id number] : 2000 Provider: ANDREW early Age/Sex: 24/F [place]: [facility] [place] Status: Signed Intake Vital Signs 10/13/24 13:59 10/15/24 09:55 10/15/24 09:57 Height 5 ft 4 in 5 ft 4 in 5 ft 4 in Weight: 138 lb 2 oz BMI 23.7 Intake Visit Reasons: Repeat urine culture Machine Programmer Required: No Is patient in pain?: No [...] activity do you participate in: none ana m/yazidism: Mormon seatbelt use: always do you feel safe [...] fm no (more content not included)... Normal [facility] Urine cultureOrdered By: Aneesh Voss on 10-15-2024 Bacteria identified Cx Nom (U) Culture exhibits no growth. [facility] Absolute lymphocyte countOrd ered By: Ramya Voss on 10-13-2024 Lymphocytes Auto (Unsp spec) [#/Vol] 3.25 10*3/uL 0.83-4.51 [facility] Absolute neutrophil countOrd ered By: Ramya Voss on 10-13-2024 Neutrophils (Bld) [#/Vol] 12.2 10*3/uL High 2.0-7.7 [facility] Acanthocyte detectionOrdered By: Ramya Voss on 10-13-2024 Acanthocytes RARE [facility] Atypical lymphocyte percenta geOrdered By: Ramya Voss on 10-13-2024 Atypical Lymphocytes 1+ % [facility] Automated lymphocyte count a s percentage of total leukocytesOrdered By: Ramya Voss on 10-13-2024 Lymphocytes/100 WBC Auto (Unsp spec) 18.0 % Low 19-41 [facility] Basophil percentageOrdered B y: Ramya Voss on 10-13-2024 Basophils/100 WBC (Bld) 0.8 % 0-1 [facility] CBC W/Diff, Automatedon - ACANTHOCYTE RARE Normal [facility] Comment on above: Performed By: #### L 501.0250, L509.8002, L3890.6006, L100.0100 ####[facility] [address] [place], [address] Anisocytosis Ql (Bld) 1+ Normal [facility] Comment on above: Performed By: #### L 501.0250, L509.8002, L3890.6006, L100.0100 ####[facility] [address] [place], [address] ATYPICAL LYMPH 1+ Normal [facility] Comment on above: Performed By: #### L 501.0250, L509.8002, L3890.6006, L100.0100 ####[facility] [address] [place], [address] Eosinophil percentageOrdered By: Ramya Voss on 10-13-2024 Eosinophils/100 WBC (Bld) 2.0 % 0-5 [facility] Erythrocyte distribution wid th (RBC) [Ratio]Ordered By: Ramya Voss on 10-13-2024 Erythrocyte distribution width (RBC) [Entitic vol] 43.0 fL 35.1-43.9 [facility] Erythrocyte distribution wid th ratioOrdered By: Ramya Voss on 10-13-2024 Erythrocyte distribution width (RBC) [Ratio] 13.2 % 11.6-14.6 [facility] Erythrocyte distribution wid th standard deviationOrdered By: Ramya Voss on 10-13-2024 Erythrocyte distribution width (RBC) [Ratio] 43.0 fl 35.1-43.9 [facility] Glucose Challenge Gest 1H 50 yemi 10-13-2024 GLU GEST 50g 1H 115 mg/dL Normal 70-140 [facility] Comment on above: Performed By: #### L 501.0250, L509.8002, L3890.6006, L100.0100 ####[facility] [address] [place], [address] Glucose measurement at 2 carson rs post-dose gestational glucose tolerance testOrdered By: Ramya Voss on 10-13-2024 Glucose [Mass/Vol] 115 mg/dL 70-140 [facility] HIVon 10-13-2024 HIV Non-Reactive Normal Nonreactive [facility] Comment on above: Result Comment: Non- Reactive Reactive Repeatedly reactive samples must be confirmed according to CDC recommended confirmatory algorithms. The subresults for either HIVAG or AHIV can be used as an aid in the selection of the confirmation algorithm for reactive samples. Send out specimens with Reactive results to [facility] for confirmation. Order the HIV antibody detection and differentiation: #[id number] Performed By: #### L 501.0250, L509.8002, L3890.6006, L100.0100 ####[facility] [address] [place], [address] Hematocrit Auto (Bld) [Volum e fraction]Ordered By: Ramya Voss on 10-13-2024 Hematocrit (Bld) [Volume fraction] 30.7 % Low 37-47 [facility] Hemoglobin measurementOrdere d By: Ramya Voss on 10-13-2024 Hemoglobin (Bld) [Mass/Vol] 10.3 g/dL Low 12.0-15.0 [facility] Immature granulocytes/100 WB C Auto (Bld)Ordered By: Ramya Voss on 10-13-2024 Immature granulocytes/100 WBC (Bld) 3.000 % High 0.0-0.9 [facility] Comment on above: IG% - Immature Granu locytes (promyelocytes, myelocytes and metamyelocytes) > 1% indicates that a LEFT SHIFT is Present. Laboratory - Chemistry and C hemistry - challengeOrdered By: Leonor Phillips on 10-13-2024 Glucose Ql (U) Negative [facility] Laboratory - Hematology and Cell countsOrdered By: Ramya Voss on 10-13-2024 Anisocytosis Ql (Bld) 1+ [facility] Laboratory - UrinalysisOrder ed By: Leonor Phillips on 10-13-2024 Protein Ql (U) Negative [facility] Lymphocytes Auto (Unsp spec) [#/Vol]Ordered By: Ramya Voss on 10-13-2024 Lymphocytes (Bld) [#/Vol] 3.25 10*3/uL 0.83-4.51 [facility] Lymphocytes/100 WBC Auto (Un sp spec)Ordered By: Ramya Voss on 10-13-2024 Lymphocytes/100 WBC (Bld) 18.0 % Low 19-41 [facility] MCV (mean corpuscular volume ) determinationOrdered By: Ramya Voss on 10-13-2024 MCV (RBC) [Entitic vol] 89.2 fL 81-99 [facility] Mean corpuscular hemoglobin (MCH) determinationOrdered By: Ramya Voss on 10-13-2024 MCH (RBC) [Entitic mass] 29.9 pg 27.0-32.0 [facility] Mean corpuscular hemoglobin concentration (MCHC) determinationOrdered By: Ramya Voss on 10-13-2024 MCHC (RBC) [Mass/Vol] 33.6 g/dL 32-36 [facility] Mean platelet volume determi nationOrdered By: Ramya Voss on 10-13-2024 Platelet mean volume (Bld) [Entitic vol] 12.3 fL High 6.2-12.0 [facility] Monocyte percentageOrdered B y: Ramya Voss on 10-13-2024 Monocytes/100 WBC (Bld) 8.8 % 0-10 [facility] Neutrophil percentageOrdered By: Ramya Voss on 10-13-2024 Neutrophils/100 WBC (Bld) 67.4 % 47-70 [facility] No Panel InformationOrdered By: Ramya Voss on 10-13-2024 HIV (1&2) Antibody Non-Reactive Nonreactive [facility] Comment on above: Non-ReactiveReactive Repeatedly reactive samples must be confirmed according to CDC recommended confirmatory algorithms. The subresults for either HIVAG or AHIV can be used as an aid in the selection of the confirmation algorithm for reactive samples.Send out specimens with Reactive results to [facility] for confirmation.Order the HIV antibody detection and differentiation: #[id number] Nucleated red blood cell per centageOrdered By: Ramya Voss on 10-13-2024 Nucleated RBC/100 WBC (Bld) [Ratio] 0.1 % 0-5 [facility] Progressive Care Manager Office Visit Reporton 10-13-2024 Progressive Care Manager Office Visit Report [facility] Women's [address], [address] [place] [address] OFFICE VISIT Date of Service: 10/13/24 MR#: [id number] Acct: [id number] Name: AIMEE REDDY Rep #: [id number] : 2000 Provider: Dr. 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 Normal [facility] Platelet countOrdered By: Dave Voss on 10-13-2024 Platelets (Bld) [#/Vol] 351 10*3/uL 150-450 [facility] RBC Auto (Bld) [#/Vol]Ordere d By: Ramya Voss on 10-13-2024 RBC (Bld) [#/Vol] 3.44 10*6/uL Low 4.2-5.4 [facility] Syphilis Antibodieson 2024 Syphilis Abs Non-Reactive Normal Nonreactive [facility] Comment on above: Performed By: #### L 501.0250, L509.8002, L3890.6006, L100.0100 ####[facility] [address] [place], [place], [address] T. pallidum abOrdered By: Dave Voss on 10-13-2024 Syphilis Total Antibody Non-Reactive Nonreactive [facility] White blood cell (WBC) count Ordered By: Ramya Bipin on 10-13-2024 WBC (Bld) [#/Vol] 18.1 10*3/uL High 4.4-11.0 [facility] CBC W/Diff, Automatedon - PATH REV Reviewed Normal [facility] Comment on above: Result Comment: SEE REPORT IN PATIENT'S EMR AMENDED REPORT 10/12/24 1609 PATH REV previously reported as: October Performed By: #### L 100.0100 ####[facility] [address] [place], [place], [address] POC Infectious Mononucleosis AntibodyOrdered By: Elizabeth Burgess on 10-12-2024 Infectious [place] Negative Negative [facility] POC STREP A- MOLECULARon POC STREP A SCREEN Negative Normal Negative [facility] POC Strep A - Molecularon Interpretation and review of laboratory results Normal [facility] S. pyogenes Ag Ql (Throat) Negative Negative [facility] ED Prov Noteon 10-08-2024 ED Prov Note ED PROVIDER NOTE [facility] NAME: Aimee Reddy AGE: 24 y.o. : 2000 VISIT DATE: 10/08/2024 CSN: [id number] PCP: No, Physician Chief Complaint Patient presents [...] with biopsy; Surgeon: Sergio Gray MD; Location: [facility] OR; Service: General Surgery EGD N/A 02/24/2019 Procedure: ESOPHAGOGASTRODUODENOSCO PY with biopsy; Surgeon: Sergio Gray MD; Location: [facility]; Service: General Surgery SPLENECTOMY, TOTAL 2011 [...] Financial Resource Strain: Unknown (11/16/2021) Received from [facility] Overall Financial Resource Strain (CARDIA) Difficulty of Paying Living Expenses: Patient declined Food Insecurity: Unknown (11/16/2021) Received from [facility] Hunger Vital Sign Worried About Running Out of Food in the Last Year: Patient declined Ran Out of Food in the Last Year: Patient declined Transportation Needs: Unknown (11/16/2021) Received from [facility] PRAPARE - Transportation Lack of Transportation (Medical): Patient declined Lack of Transportation (Non-Medical): Patient declined Physical Activity: Unknown (11/16/2021) Received from [facility] Exercise Vital Sign Days of Exercise per Week: Patient declined Minutes of Exercise per Session: Patient declined Stress: Unknown (11/16/2021) Received fro (more content not included)... Normal [facility] POC STREP A - MOLECULAR RALS on 10-08-2024 POC STREP A SCREEN Negative Normal [facility] Cult, Bloodon 09-28-2024 Cult, Blood [...] called to and read back by:ACE ONTIVEROS [id number] PER DY/NM Report Status FINAL 09/28/2024 [facility] Comment on above: Performed By: #### B CUL2 #### [facility] [address] [id number] Clinic Office Assistant: Victor Manuel Washington MD [facility] [address] [place] [address] Clinic Office Assistant: MD Linden Stanton,Bloodon 09-28-2024 Cult,Blood Specimen Description .BLOOD Special Requests RIGHT AC Culture NO GROWTH 6 DAYS Report Status FINAL 09/28/2024 [facility] Comment on above: Performed By: #### B C #### [facility] [address] [place] [address] Clinic Office Assistant: Ric Eldridge MD Cult,Urineon 09-24-2024 Cult,Urine Specimen [...] Tobramycin <=1 SUSCEPTIBLE Trimethoprim/Sulfa <=20 SUSCEPTIBLE Susceptible [facility] Comment on above: Performed By: #### U #### [facility] [address] [place], [place] [address] Clinic Office Assistant: Victor Manuel Washington MD [facility] [address] [place] [address] Clinic Office Assistant: Ric Eldridge MD Absolute lymphocyte countOrd ered By: Mimi Caldera on 09-23-2024 Lymphocytes Auto (Unsp spec) [#/Vol] 2.23 10*3/uL 0.83-4.51 [facility] Comment on above: Previous reported re sult: 2.88 X10^3/uLEdited by: JOSEPH on 09/23/24:0811 AMENDED REPORT 09/23/24 0811 Absolute Lymph previously reported as: 2.88 X10^3/uL Absolute neutrophil countOrd ered By: Mimi Caldera on 09-23-2024 Neutrophils (Bld) [#/Vol] 14.3 10*3/uL High 2.0-7.7 [facility] Comment on above: Previous reported re sult: 13.2 X10^3/uLEdited by: JOSEPH on 09/23/24:0813 AMENDED REPORT 09/23/24 0813 Absolute Neut previously reported as: 13.2 H X10^3/uL Automated lymphocyte count a s percentage of total leukocytesOrdered By: Mimi Caldera on 09-23-2024 Lymphocytes/100 WBC Auto (Unsp spec) [facility] Comment on above: Previous reported re sult: 15.5 %Edited by: JOSEPH on 09/23/24:0809 Basophil percentageOrdered B y: Mimi Caldera on 09-23-2024 Basophils (%) (Auto) [facility] Comment on above: Previous reported re sult: 0.3 %Edited by: JOSEPH on 09/23/24:0809 Blood band neutrophil count as percentage of total leukocytesOrdered By: Mimi Caldera on 09-23-2024 Band form neutrophils/100 WBC (Bld) 3 % 0-5 [facility] Blood eosinophils/100 leukoc ytesOrdered By: Mimi Caldera on 09-23-2024 Eosinophils/100 WBC (Bld) 2 % 0-5 [facility] Blood lymphocytes/100 leukoc ytesOrdered By: Mimi Caldera on 09-23-2024 Lymphocytes/100 WBC (Bld) 12 % Low 19-41 [facility] Blood metamyelocytes/100 steph kocytesOrdered By: Mimi Caldera on 09-23-2024 Metamyelocytes/100 WBC (Bld) Not Reportable [facility] Blood monocytes/100 leukocyt esOrdered By: Mimi Caldera on 09-23-2024 Monocytes/100 WBC (Bld) 9 % 0-10 [facility] Blood polychromasia detectio n by light microscopyOrdered By: Mimi Caldera on 09-23-2024 Polychromasia LM Ql (Bld) 1+ [facility] Blood promyelocytes/100 leuk ocytesOrdered By: Mimi Caldera on 09-23-2024 Promyelocytes/100 WBC (Bld) Not Reportable [facility] Blood segmented neutrophils/ 100 leukocytesOrdered By: Mimi Caldera on 09-23-2024 Segmented neutrophils/100 WBC (Bld) 74 % High 47-70 [facility] Eosinophil percentageOrdered By: Mimi Caldera on 09-23-2024 Eosinophils (%) (Auto) CARPENTER MATE [facility] Comment on above: Previous reported re sult: 1.5 %Edited by: JOSEPH on 09/23/24:0809 Erythrocyte distribution wid th (RBC) [Ratio]Ordered By: Mimi Caldera on 09-23-2024 Erythrocyte distribution width (RBC) [Entitic vol] 46.9 fL High 35.1-43.9 [facility] Erythrocyte distribution wid th ratioOrdered By: Mimi Caldera on 09-23-2024 Erythrocyte distribution width (RBC) [Ratio] 13.8 % 11.6-14.6 [facility] Erythrocyte distribution wid th standard deviationOrdered By: Mimi Caldera on 09-23-2024 Erythrocyte distribution width (RBC) [Ratio] 46.9 fl High 35.1-43.9 [facility] Hematocrit Auto (Bld) [Volum e fraction]Ordered By: Mimi Caldera on 09-23-2024 Hematocrit (Bld) [Volume fraction] 28.0 % Low 37-47 [facility] Hemoglobin measurementOrdere d By: Mimi Caldera on 09-23-2024 Hemoglobin (Bld) [Mass/Vol] 9.4 g/dL Low 12.0-15.0 [facility] Immature granulocytes/100 WB C Auto (Bld)Ordered By: Mimi Caldera on 09-23-2024 Immature Granulocyte % (Auto) [employer]PENTER MATE [facility] Comment on above: Previous reported re sult: 1.000 %Edited by: JOSEPH on 09/23/24:0809IG% - Immature Granulocytes (promyelocytes, myelocytes and metamyelocytes) > 1% indicates that a LEFT SHIFT is Present. Immature granulocytes/100 WBC (Bld) CARPENTER MATE [facility] Comment on above: Previous reported re sult: 1.000 %Edited by: JOSEPH on 09/23/24:0809IG% - Immature Granulocytes (promyelocytes, myelocytes and metamyelocytes) > 1% indicates that a LEFT SHIFT is Present. Laboratory - Hematology and Cell countsOrdered By: Mimi Caldera on 09-23-2024 Anisocytosis Ql (Bld) 1+ [facility] Lymphocytes Auto (Unsp spec) [#/Vol]Ordered By: Mimi Caldera on 09-23-2024 Lymphocytes (Bld) [#/Vol] 2.23 10*3/uL 0.83-4.51 [facility] Comment on above: Previous reported re sult: 2.88 X10^3/uLEdited by: JOSEPH on 09/23/24:0811 AMENDED REPORT 09/23/24 0811 Absolute Lymph previously reported as: 2.88 X10^3/uL Lymphocytes/100 WBC Auto (Un sp spec)Ordered By: Mimi Caldera on 09-23-2024 Lymphocytes (%) (Auto) [employer]PENTER [employer]ATE [facility] Comment on above: Previous reported re sult: 15.5 %Edited by: JOSEPH on 09/23/24:0809 MCV (mean corpuscular volume ) determinationOrdered By: Mimi Caldera on 09-23-2024 MCV (RBC) [Entitic vol] 91.5 fL 81-99 [facility] Mean corpuscular hemoglobin (MCH) determinationOrdered By: Mimi Caldera on 09-23-2024 MCH (RBC) [Entitic mass] 30.7 pg 27.0-32.0 [facility] Mean corpuscular hemoglobin concentration (MCHC) determinationOrdered By: Mimi Caldera on 09-23-2024 MCHC (RBC) [Mass/Vol] 33.6 g/dL 32-36 [facility] Mean platelet volume determi nationOrdered By: Mimi Caldera on 09-23-2024 Platelet mean volume (Bld) [Entitic vol] 11.9 fL 6.2-12.0 [facility] Metamyelocytes/100 WBC (Bld) Ordered By: Mimi Caldera on 09-23-2024 Metamyelocytes % Not Reportable [facility] Monocyte percentageOrdered B y: Mimi Caldera on 09-23-2024 Monocytes (%) (Auto) [employer] [employer] [facility] Comment on above: Previous reported re sult: 10.7 %Edited by: JOSEPH on 09/23/24:0809 Neutrophil percentageOrdered By: Mimi Caldera on 09-23-2024 Neutrophils (%) (Auto) [employer]ENTER [employer]ATE [facility] Comment on above: Previous reported re sult: 71.0 %Edited by: JOSEPH on 09/23/24:0809 Nucleated red blood cell per centageOrdered By: Mimi Caldera on 09-23-2024 Nucleated RBC/100 WBC (Bld) [Ratio] 0 % 0-5 [facility] OB Limited With Biometricson 09-23-2024 OB Limited With Biometrics [facility] Imaging Services [address] [place], [place] [id number] OB Limited With Biometrics MR#: [id number] Acct: [id number] Name: AIMEE REDDY Rep #: [id number] : 2000 F 24 From: Yogesh Cabrales MD PCP: Status: ADM IN Study: OB Limited With Biometrics Date of Exam: 09/23 Exam# [id number] Ordering Dr: Leonor Phillips EXAM: US Pelvis [...] single live intrauterine as above. Reading Location: [facility] CC: Dr. Leonor Phillips MD Maintenance Inspector: Signed Normal [facility] Pathologist review Zhang (Unsp spec) [Interp]Ordered By: Mimi Caldera on 09-23-2024 Differential Pathologist's Review October [facility] Differential Pathologist's Review Reviewed [facility] Comment on above: Previous reported [...] 09-23-2024 Platelets (Bld) [#/Vol] 336 10*3/uL 150-450 [facility] Platelet estimateOrdered By: Mimi Caldera on 09-23-2024 Platelets LM Ql (Bld) ADEQUATE ADEQ [facility] Platelets LM Ql (Bld)Ordered By: Mimi Caldera on 09-23-2024 Platelet Estimate ADEQUATE ADEQ [facility] Polychromasia LM Ql (Bld)Ord ered By: Mimi Caldera on 09-23-2024 Polychromasia 1+ [facility] Promyelocytes/100 WBC (Bld)O rdered By: Mimi Caldera on 09-23-2024 Promyelocytes % Not Reportable [facility] RBC Auto (Bld) [#/Vol]Ordere d By: Mimi Caldera on 09-23-2024 RBC (Bld) [#/Vol] 3.06 10*6/uL Low 4.2-5.4 [facility] Review by pathologistOrdered By: Mimi Cladera on 09-23-2024 Pathologist review Zhang (Unsp spec) [Interp] Reviewed [facility] Comment on above: Previous reported [...] Neutrophils/100 WBC (Bld) 74 % High 47-70 [facility] White blood cell (WBC) count Ordered By: Mimi Verenice on 09-23-2024 WBC (Bld) [#/Vol] 18.6 10*3/uL High 4.4-11.0 [facility] BMPon 09-22-2024 Anion gap [Moles/Vol] 10 mmol/L 9 - 17 mmol/L [facility] Calcium [Mass/Vol] 6.8 mg/dL Low 8.6 - 10. 4 mg/dL [facility] Chloride [Moles/Vol] 104 mmol/L 98 - 10 7 mmol/L [facility] CO2 [Moles/Vol] 23 mmol/L 20 - 31 mmol/L [facility] Creatinine [Mass/Vol] 0.4 mg/dL Low 0.5 - 0.9 mg/dL [facility] Est, Glom Filt Rate - PINF [facility] Comment on above: These results are [...] [Mass/Vol] 73 mg/dL 70 - 99 mg/dL [facility] Potassium [Moles/Vol] 3.8 mmol/L 3.7 - 5.3 mmol/L [facility] Sodium [Moles/Vol] 137 mmol/L 135 - 144 mmol/L [facility] Urea nitrogen [Mass/Vol] 8 mg/dL 6 - 20 mg/dL [facility] Basic Metabolic Profon 09-22 Anion gap [Moles/Vol] 10 mmol/L Normal 9-17 [facility] Comment on above: Performed By: #### B MP, CDP, LIVP, LIP #### [facility] [address] [place] [address] Clinic Office Assistant: Ric Eldridge MD Calcium [Mass/Vol] 6.8 mg/dL Low 8.6-10.4 [facility] Comment on above: Performed By: #### B MP, CDP, LIVP, LIP #### [facility] [address] [place], [place] [id number] Clinic Office Assistant: Ric Eldridge MD Chloride [Moles/Vol] 104 mmol/L Normal 98-107 [facility] Comment on above: Performed By: #### B MP, CDP, LIVP, LIP #### [facility] [address] [place] [address] Clinic Office Assistant: Ric Eldridge MD CO2 [Moles/Vol] 23 mmol/L Normal 20-31 [facility] Comment on above: Performed By: #### B MP, CDP, LIVP, LIP #### [facility] [address] [id number] Clinic Office Assistant: Ric Eldridge MD Creatinine [Mass/Vol] 0.4 mg/dL Low 0.5-0.9 [facility] Comment on above: Performed By: #### B MP, CDP, LIVP, LIP #### [facility] [address] [id number] Clinic Office Assistant: Ric Eldridge MD GFR/1.73 sq M.predicted among non-blacks MDRD (S/P/Bld) [Vol rate/Area] mL/min/{1.73_m2} Normal >60 [facility] Comment on above: Result Comment: These [...] #### B MP, CDP, LIVP, LIP #### [facility] [address] [place], [place] [id number] Clinic Office Assistant: Ric Eldridge MD Glucose [Mass/Vol] 73 mg/dL Normal 70-99 [facility] Comment on above: Performed By: #### B MP, CDP, LIVP, LIP #### [facility] [address] [place], [place] [address] Clinic Office Assistant: Ric Eldridge MD Potassium [Moles/Vol] 3.8 mmol/L Normal 3.7-5.3 [facility] Comment on above: Performed By: #### B MP, CDP, LIVP, LIP #### [facility] [address] [place], [place] [id number] Clinic Office Assistant: Ric Eldridge MD Sodium [Moles/Vol] 137 mmol/L Normal 135-144 [facility] Comment on above: Performed By: #### B MP, CDP, LIVP, LIP #### [facility] [address] [place], [place] [address] Clinic Office Assistant: Ric Eldridge MD Urea nitrogen [Mass/Vol] 8 mg/dL Normal 6-20 [facility] Comment on above: Performed By: #### B MP, CDP, LIVP, LIP #### [facility] [address] [place], [place] [id number] Clinic Office Assistant: Ric Eldridge MD CBC with Auto Differentialon 09-22-2024 Absolute Bands 1.04 High [facility] Bands 5 % 0 - 10 % [facility] Basophils (Bld) [#/Vol] [facility] Basophils/100 WBC (Bld) 0 - 2 % [facility] Eosinophils % 0 - 5 % [facility] Eosinophils (Bld) [#/Vol] [facility] Erythrocyte distribution width (RBC) [Ratio] 13.9 % 12.1 - 15.2 % [facility] Hematocrit (Bld) [Volume fraction] 33.5 % Low 36.0 - 46.0 % [facility] Hemoglobin (Bld) [Mass/Vol] 11.3 g/dL Low 12.0 - 16.0 g/dL [facility] Immature granulocytes (Bld) [#/Vol] [facility] Immature granulocytes/100 WBC (Bld) 0 % [facility] Interpretation and review of laboratory results Abnormal [facility] Lymphocytes/100 WBC (Bld) 18 % 15 - 40 % [facility] Lymphocytes/100 WBC (Bld) 3.74 % [facility] MCH (RBC) [Entitic mass] 31 pg 26.0 - 34.[address] [facility] MCHC (RBC) [Mass/Vol] 33.7 g/dL 31.0 - 37.0 g/dL [facility] MCV (RBC) [Entitic vol] 91.8 fL 80.0 - 100.[address] [facility] Monocytes/100 WBC (Bld) 7 % 4 - 8 % [facility] Monocytes/100 WBC (Bld) 1.46 % High [facility] Morphology Zhang (Bld) [Interp] Manual Differential Performed [facility] Neutrophils/100 WBC (Bld) 70 % 47 - 75 % [facility] Platelet mean volume (Bld) [Entitic vol] 11 fL 6.0 - 12.[address] [facility] Platelets (Bld) [#/Vol] 335 10*3/uL [facility] RBC (Bld) [#/Vol] 3.65 10*6/uL Low 4.00 - 5.2 0 m/uL [facility] Segmented neutrophils/100 WBC (Bld) 14.56 % High [facility] WBC other (Bld) [#/Vol] 20.8 Critically high [facility] CBC with Diffon 09-22-2024 Abs. Bands 1.04 k/uL High 0.0-1.0 [facility] Comment on above: Performed By: #### B MP, CDP, LIVP, LIP #### [facility] [address] [place] [address] Clinic Office Assistant: Ric Eldridge MD Abs. Basophil Normal 0.0-0.2 [facility] Comment on above: Performed By: #### B MP, CDP, LIVP, LIP #### [facility] [address] [place] [address] Clinic Office Assistant: Ric Eldridge MD Abs. Eosinophil Normal 0.0-0.4 [facility] Comment on above: Performed By: #### B MP, CDP, LIVP, LIP #### [facility] [address] [place] [address] Clinic Office Assistant: Ric Eldridge MD Abs.Imm.Granulocyte Normal 0.00-0.30 [facility] Comment on above: Performed By: #### B MP, CDP, LIVP, LIP #### [facility] [address] [place] [address] Clinic Office Assistant: Ric Eldridge MD Abs.Neutrophil (Seg) 14.56 k/uL High 2.5-7.0 [facility] Comment on above: Performed By: #### B MP, CDP, LIVP, LIP #### [facility] [address] [place] [address] Clinic Office Assistant: Ric Eldridge MD Bands 5 % Normal 0-10 [facility] Comment on above: Performed By: #### B MP, CDP, LIVP, LIP #### [facility] [address] [place] [address] Clinic Office Assistant: Ric Eldridge MD Basophil Normal 0-2 [facility] Comment on above: Performed By: #### B MP, CDP, LIVP, LIP #### [facility] [address] [place] [address] Clinic Office Assistant: Ric Eldridge MD Eosinophil Normal 0-5 [facility] Comment on above: Performed By: #### B MP, CDP, LIVP, LIP #### [facility] [address] [place] [address] Clinic Office Assistant: Ric Eldridge MD Immature Granulocyte Normal 0 [facility] Comment on above: Performed By: #### B MP, CDP, LIVP, LIP #### [facility] [address] [place] [address] Clinic Office Assistant: Ric Eldridge MD Lymphocytes (Bld) [#/Vol] 3.74 10*3/uL Normal 1.0-4.8 [facility] Comment on above: Performed By: #### B MP, CDP, LIVP, LIP #### [facility] [address] [place] [address] Clinic Office Assistant: Ric Eldridge MD Lymphocytes/100 WBC (Bld) 18 % Normal 15-40 [facility] Comment on above: Performed By: #### B MP, CDP, LIVP, LIP #### [facility] [address] [place] [address] Clinic Office Assistant: Ric Eldridge MD Monocytes (Bld) [#/Vol] 1.46 10*3/uL High 0.0-1.0 [facility] Comment on above: Performed By: #### B MP, CDP, LIVP, LIP #### [facility] [address] [place] [address] Clinic Office Assistant: Ric Eldridge MD Monocytes/100 WBC (Bld) 7 % Normal 4-8 [facility] Comment on above: Performed By: #### B MP, CDP, LIVP, LIP #### [facility] [address] [place] [address] Clinic Office Assistant: Ric Eldridge MD Morphology Zhang (Bld) [Interp] Manual Differential Performed Normal [facility] Comment on above: Performed By: #### B MP, CDP, LIVP, LIP #### [facility] [address] [place] [address] Clinic Office Assistant: Ric Eldridge MD Neutrophil (Seg) 70 % Normal 47-75 [facility] Comment on above: Performed By: #### B MP, CDP, LIVP, LIP #### [facility] [address] [place], [place] [id number] Clinic Office Assistant: Ric Eldridge MD Erythrocyte distribution width (RBC) [Ratio] 13.9 % Normal 12.1-15.2 [facility] Comment on above: Performed By: #### B MP, CDP, LIVP, LIP #### [facility] [address] [place] [address] Clinic Office Assistant: Ric Eldridge MD Hematocrit (Bld) [Volume fraction] 33.5 % Low 36.0-46.0 [facility] Comment on above: Performed By: #### B MP, CDP, LIVP, LIP #### [facility] [address] [place] [address] Clinic Office Assistant: Ric Eldridge MD Hemoglobin (Bld) [Mass/Vol] 11.3 g/dL Low 12.0-16.0 [facility] Comment on above: Performed By: #### B MP, CDP, LIVP, LIP #### [facility] [address] [place] [address] Clinic Office Assistant: Ric Eldridge MD MCH (RBC) [Entitic mass] 31.0 pg Normal 26.0-34.0 [facility] Comment on above: Performed By: #### B MP, CDP, LIVP, LIP #### [facility] [address] [place] [address] Clinic Office Assistant: Ric Eldridge MD MCHC (RBC) [Mass/Vol] 33.7 g/dL Normal 31.0-37.0 [facility] Comment on above: Performed By: #### B MP, CDP, LIVP, LIP #### [facility] [address] [place] [address] Clinic Office Assistant: Ric Eldridge MD MCV (RBC) [Entitic vol] 91.8 fL Normal 80.0-100.0 [facility] Comment on above: Performed By: #### B MP, CDP, LIVP, LIP #### [facility] [address] [place] [address] (760) Clinic Office Assistant: Ric Eldridge MD Platelet mean volume (Bld) [Entitic vol] 11.0 fL Normal 6.0-12.0 [facility] Comment on above: Performed By: #### B MP, CDP, LIVP, LIP #### [facility] [address] [place] [address] (918) Clinic Office Assistant: Ric Eldridge MD Platelets (Bld) [#/Vol] 335 10*3/uL Normal 140-450 [facility] Comment on above: Performed By: #### B MP, CDP, LIVP, LIP #### [facility] [address] [place] [address] Clinic Office Assistant: Ric Eldridge MD RBC (Bld) [#/Vol] 3.65 10*6/uL Low 4.00-5.20 [facility] Comment on above: Performed By: #### B MP, CDP, LIVP, LIP #### [facility] [address] [place], [place] [id number] Clinic Office Assistant: Ric Eldridge MD WBC (Bld) [#/Vol] 20.8 10*3/uL Critically high 3.5-11.0 [facility] Comment on above: Performed By: #### B MP, CDP, LIVP, LIP #### [facility] [address] [place] [address] Clinic Office Assistant: Ric Eldridge MD H AND P Exam - OB/GYNon 04-0 H&P Exam - 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 [facility] Medical Records Department [address] [place] [address] H P Exam - 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 09/22/24 1735 MR#: [id number] Acct: [id number] Name: AIMEE REDDY Rep #: [id number] : 2000 24 From: Mimi Thomas DO PCP: Status:ADM ASMITA Location: [place] [address] HPI - General General Date of Admission: 09/22/24 HPI Narrative AIMEE REDDY, is a 24 y/o @ 24 weeks [address] [facility] from [facility] with the diagnosis of acute pyelonephritis in [...] family current occupational status: employed current occupation: [employer] pets and animals: Yes pets and animals: [...] activity do you participate in: none ana m/yazidism: Mormon seatbelt use: always do you feel safe [...] 09/22/24 -??? (more content not included)... Normal [facility] Hepatic Function Panelon Albumin [Mass/Vol] 3.7 g/dL 3.5 - 5.2 g/dL [facility] Albumin/Globulin [Mass ratio] 1 {ratio} 1.0 - 2.5 [facility] ALP [Catalytic activity/Vol] 86 U/L 35 - 104 U/L [facility] ALT [Catalytic activity/Vol] 18 U/L 5 - 33 U/L [facility] AST [Catalytic activity/Vol] 19 U/L NINF - 32 U/L [facility] Bilirubin [Mass/Vol] mg/dL Low 0.3 - 1 .2 mg/dL [facility] Bilirubin.direct [Mass/Vol] mg/dL NINF - 0.3 mg/dL [facility] Bilirubin.indirect [Mass/Vol] Can not be calculated 0.0 - 1.0 mg/dL [facility] Globulin (S) [Mass/Vol] 3.6 g/dL 1.5 - 3.8 g/dL [facility] Interpretation and review of laboratory results Abnormal [facility] Protein [Mass/Vol] 7.3 g/dL 6.4 - 8.3 g/dL [facility] Laboratory - Chemistry and C hemistry - challengeOrdered By: Ramya Voss on 09-22-2024 Glucose Ql (U) Negative [facility] Laboratory - UrinalysisOrder ed By: Ramya Voss on 09-22-2024 Protein Ql (U) Negative [facility] Lipaseon 09-22-2024 Lipase [Catalytic activity/Vol] 10 U/L Low 13 - 60 U/L [facility] Lipase [Catalytic activity/Vol] 10 U/L Low 13-60 [facility] Comment on above: Performed By: #### B MP, CDP, LIVP, LIP #### [facility] [address] [place] [address] Clinic Office Assistant: iRc Eldridge MD Liver Profileon 09-22-2024 ALT [Catalytic activity/Vol] 18 U/L Normal 5-33 [facility] Comment on above: Performed By: #### B MP, CDP, LIVP, LIP #### [facility] [address] [place] [address] Clinic Office Assistant: Ric Eldridge MD Albumin [Mass/Vol] 3.7 g/dL Normal 3.5-5.2 [facility] Comment on above: Performed By: #### B MP, CDP, LIVP, LIP #### [facility] [address] [place] [address] Clinic Office Assistant: Ric Eldridge MD Albumin/Glob Ratio 1.0 Normal 1.0-2.5 [facility] Comment on above: Performed By: #### B MP, CDP, LIVP, LIP #### [facility] [address] [place] [address] Clinic Office Assistant: Ric Eldridge MD Alkaline Phos 86 U/L Normal 35-104 [facility] Comment on above: Performed By: #### B MP, CDP, LIVP, LIP #### [facility] [address] [place], [place] [address] Clinic Office Assistant: Ric Eldridge MD AST [Catalytic activity/Vol] 19 U/L Normal <32 [facility] Comment on above: Performed By: #### B MP, CDP, LIVP, LIP #### [facility] [address] [place], [place] [phone] Clinic Office Assistant: Ric Eldridge MD Bilirubin [Mass/Vol] mg/dL Low 0.3-1.2 [facility] Comment on above: Performed By: #### B MP, CDP, LIVP, LIP #### [facility] [address] [place], [place] [id number] Clinic Office Assistant: Ric Eldridge MD Bilirubin, Indirect Can not be calculated Normal 0.0-1 .0 [facility] Comment on above: Performed By: #### B MP, CDP, LIVP, LIP #### [facility] [address] [place], [place] [phone] Clinic Office Assistant: Ric Eldridge MD Bilirubin.indirect [Mass/Vol] mg/dL Normal <0.3 [facility] Comment on above: Performed By: #### B MP, CDP, LIVP, LIP #### [facility] [address] [place], [place] [id number] Clinic Office Assistant: Ric Eldridge MD Globulin (S) [Mass/Vol] 3.6 g/dL Normal 1.5-3.8 [facility] Comment on above: Performed By: #### B MP, CDP, LIVP, LIP #### [facility] [address] [place], [place] [phone] Clinic Office Assistant: Ric Eldridge MD Protein [Mass/Vol] 7.3 g/dL Normal 6.4-8.3 [facility] Comment on above: Performed By: #### B MP, CDP, LIVP, LIP #### [facility] [address] [place] [address] Clinic Office Assistant: Ric Eldridge MD Microscopic Urinalysison - [facility] Bacteria LM Ql (Urine sed) 4+ Abnormal None [facility] Epithelial cells LM.HPF (Urine sed) [#/Area] 2 TO 5 /HPF [facility] Interpretation and review of laboratory results Abnormal [facility] RBC LM.HPF (Urine sed) [#/Area] 0 TO [address] [facility] WBC LM.HPF (Urine sed) [#/Area] 2 TO 5 0 /HPF [facility] No Panel Informationon 09-22 Interpretation and review of laboratory results Abnormal [facility] Hospital[facility] Progressive Care Manager Office Visit Reporton 09-22-2024 Progressive Care Manager Office Visit Report [facility] [address], [address] [place] [address] OFFICE VISIT Date of Service: 09/22/24 MR#: [id number] Acct: [id number] Name: AIMEE REDDY Rep #: [id number] : 2000 Provider: ANDREW early Age/Sex: 24/F [place] [facility] Status: Signed Intake Vital Signs 07/01/24 09:26 08/26/24 09:30 09/22/24 08:36 Height 5 ft 4 in 5 ft 4 in 5 ft 4 in Weight: 137 lb 4 oz BMI 23.6 BP 98/60 Intake Visit Reasons: 25wk 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 -???-???-??? (more content not included)... Normal [facility] US GALLBLADDER RUQon 025 US GALLBLADDER RUQ [...] Trejo Jr., MD 09/22/24 Final result Normal [facility] US Gallbladderon 09-22-2024 Prominence of the right renal collecting system. In order to see if this is more related to than it is obstruction, I would recommend a dedicated bilateral renal and bladder ultrasound, including resistive indices and evaluation of the ureteral jets. The findings were discussed with Dr. Delgadillo in the ED. [facility] EXAM: US GALLBLADDER RUQ. HISTORY: RUQ [...] pancreas are normal. Aorta nonaneurysmal. IVC normal. [facility] Richard Trejo Jr., MD - 09/22/2024 [...] discussed with Dr. Delgadillo in the ED. [facility] Radiology Study observation (narrative) [facility] US GallbladderOrdered By: Vinay Trejo on 09-22-[address] [facility] Work Phone: US RENAL COMPLETEon 09-23-19 US [...] Carmelo Kwan MD 09/22/24 Final result Normal [facility] Urinalysison 09-22-2024 Bilirubin Ql (U) Negative NEGATIVE [facility] [facility] [employer] [facility] Clarity (U) Hazy Abnormal Clear [facility] [employer] [facility] Color (U) Yellow Yellow [facility] Comment [facility] [employer] [facility] Glucose Test strip (U) [Mass/Vol] Negative NEGATIVE mg/dL [facility] Hemoglobin Auto test strip Ql (U) TRACE Abnormal NEGATIVE [facility] Interpretation and review of laboratory results Abnormal [facility] Ketones (U) [Mass/Vol] Negative NEGATIVE mg/dL [facility] Leukocyte esterase Test strip Ql (U) Negative NEGATIVE [facility] Nitrite Ql (U) Positive Abnormal NEGATIVE [facility] pH (U) 7 [pH] 5.0 - 8.[address] [facility] Protein (U) [Mass/Vol] TRACE Abnormal NEGATIVE mg/dL [facility] Specific gravity (U) [Rel density] 1.01 1.005 - 1.[address] [facility] Urobilinogen Qn (U) Normal 0.0 - 1. 0 EU/dL [facility] Urinalysis, Routineon 2024 Bilirubin, SemiQt,Ur Negative Normal NEG [facility] Comment on above: Performed By: #### U HUMERAO, UA #### [facility] [address] [place] [address] Clinic Office Assistant: Ric Eldridge MD Blood, Urine TRACE Abnormal NEG [facility] Comment on above: Performed By: #### U HUMERAO, UA #### [facility] [address] [place] [address] Clinic Office Assistant: Ric Eldridge MD Clarity (U) Hazy Abnormal CLEAR [facility] Comment on above: Performed By: #### U MICAO, UA #### [facility] [address] [place], [place] [phone] Clinic Office Assistant: Ric Eldridge MD Color (U) Yellow Normal YEL [facility] Comment on above: Performed By: #### U HUMERAO, UA #### [facility] [address] [facility] [place] [address] Clinic Office Assistant: Ric Eldridge MD Comment Normal [facility] Comment on above: Performed By: #### U MICAO, UA #### [facility] [address] [place] [address] Clinic Office Assistant: Ric Eldridge MD Glucose Ql (U) Negative Normal NEG [facility] Comment on above: Performed By: #### U MICAO, UA #### [facility] [address] [place] [address] Clinic Office Assistant: Ric Eldridge MD Ketones Ql (U) Negative Normal NEG [facility] Comment on above: Performed By: #### U MICAO, UA #### [facility] [address] [place] [address] Clinic Office Assistant: Ric Eldridge MD Leukocyte esterase Test strip Ql (U) Negative Normal NEG [facility] Comment on above: Performed By: #### U MICAO, UA #### [facility] [address] [place] [address] Clinic Office Assistant: Ric Eldridge MD Nitrite,Ur Positive Abnormal NEG [facility] Comment on above: Performed By: #### U MICAO, UA #### [facility] [address] [place] [address] Clinic Office Assistant: Ric Eldridge MD PH,Ur 7.0 Normal 5.0-8.0 [facility] Comment on above: Performed By: #### U MICAO, UA #### [facility] [address] [place] [address] Clinic Office Assistant: Ric Eldridge MD Protein Ql (U) TRACE Abnormal NEG [facility] Comment on above: Performed By: #### U MICAO, UA #### [facility] [address] [place] [address] Clinic Office Assistant: Ric Eldridge MD Spec. Carmine,Ur 1.010 Normal 1.005-1.030 [facility] Comment on above: Performed By: #### U MICAO, UA #### [facility] [address] [place], [place] [phone] Clinic Office Assistant: Ric Eldridge MD Urobilinogen,Ur Normal Normal 0.0-1.0 [facility] Comment on above: Performed By: #### U MICAO, UA #### [facility] [address] [place], [place] [phone] Clinic Office Assistant: Ric Eldridge MD Urinalysis,Microon 5 ----- Normal [facility] Comment on above: Performed By: #### U MICAO, UA #### [facility] [address] [place], [place] [phone] Clinic Office Assistant: Ric Eldridge MD Bacteria 4+ Abnormal NONE [facility] Comment on above: Performed By: #### U MICAO, UA #### [facility] [address] [place], [place] [phone] Clinic Office Assistant: Ric Eldridge MD Epithelial cells LM Ql (Urine sed) 2 TO 5 Normal [facility] Comment on above: Performed By: #### U MICAO, UA #### [facility] [address] [place], [place] [phone] Clinic Office Assistant: Ric Eldridge MD Urine RBC's 0 TO 2 Normal 0-2 [facility] Comment on above: Performed By: #### U MICAO, UA #### [facility] [address] [place], [place] [id number] Clinic Office Assistant: Ric Eldridge MD Urine WBC's 2 TO 5 Normal 0 [facility] Comment on above: Performed By: #### U MICAO, UA #### [facility] [address] [place], [place] [phone] Clinic Office Assistant: Ric Eldridge MD Laboratory - Chemistry and C hemistry - challengeOrdered By: Leonor Phillips on 08-26-2024 Glucose Ql (U) Negative [facility] Laboratory - UrinalysisOrder ed By: Leonor Phillips on 08-26-2024 Protein Ql (U) Negative [facility] Progressive Care Manager Office Visit Reporton 08-26-2024 Progressive Care Manager Office Visit Report [facility] [address], [address] [place] [address] OFFICE VISIT Date of Service: 08/26/24 MR#: [id number] Acct: [id number] Name: AIMEE REDDY Rep #: [id number] : 2000 Provider: Dr. 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 Normal [facility] CBC with Auto Differentialon 08-08-2024 Basophils (Bld) [#/Vol] 0.05 10*3/uL [facility] Basophils/100 WBC (Bld) 0 % 0 - 2 % [employer] [employer] Eosinophils (Bld) [#/Vol] 0.33 10*3/uL [employer] [employer] [facility] Eosinophils/100 WBC (Bld) 2 % 0 - 5 % [employer] [facility] Erythrocyte distribution width (RBC) [Ratio] 13.5 % 12.1 - 15.2 % [employer] [employer] Hematocrit (Bld) [Volume fraction] 34.2 % Low 36.0 - 46.0 % [employer] [employer] Hemoglobin (Bld) [Mass/Vol] 12.0 g/dL 12.0 - 16.0 g/dL [facility] Immature granulocytes (Bld) [#/Vol] 0.06 10*3/uL [facility] Immature granulocytes/100 WBC (Bld) 0 % 0 - 5 % [facility] Interpretation and review of laboratory results Abnormal [facility] Lymphocytes/100 WBC (Bld) 28 % 15 - 40 % [facility] Lymphocytes/100 WBC (Bld) 4.04 % [facility] MCH (RBC) [Entitic mass] 31.1 pg 26.0 - 34.[address] [facility] MCHC (RBC) [Mass/Vol] 35.1 g/dL 31.0 - 37.0 g/dL [facility] MCV (RBC) [Entitic vol] 88.6 fL 80.0 - 100.[address] [facility] Monocytes/100 WBC (Bld) 9 % High 4 - 8 % [facility] Monocytes/100 WBC (Bld) 1.31 % High [facility] Neutrophils/100 WBC (Bld) 61 % 47 - 75 % [facility] Platelet mean volume (Bld) [Entitic vol] 10.9 fL 6.0 - 12.[address] [facility] Platelets (Bld) [#/Vol] 354 10*3/uL [facility] RBC (Bld) [#/Vol] 3.86 10*6/uL Low 4.00 - 5.2 0 m/uL [facility] Segmented neutrophils/100 WBC (Bld) 8.65 % High [facility] WBC other (Bld) [#/Vol] 14.4 High [facility] CBC with Diffon 08-08-2024 Abs. Basophil 0.05 k/uL Normal 0.00-0.20 [facility] Comment on above: Performed By: #### DERRICK WILDER #### [facility] [address] [place] [address] Clinic Office Assistant: Ric Eldridge MD Abs.Imm.Granulocyte 0.06 k/uL Normal 0.00-0.30 [facility] Comment on above: Performed By: #### DERRICK WILDER #### [facility] [address] [place], [place] [phone] Clinic Office Assistant: Ric Eldridge MD Abs.Neutrophil (Seg) 8.65 k/uL High 2.5-7.0 [facility] Comment on above: Performed By: #### U HUMERAO, UA #### [facility] [address] [place], [place] [phone] Clinic Office Assistant: Ric Eldridge MD Basophils/100 WBC (Bld) 0 % Normal 0-2 [facility] Comment on above: Performed By: #### U HUMERAO, UA #### [facility] [facility] [address] [place], [place] [id number] Clinic Office Assistant: Ric Eldridge MD Eosinophils (Bld) [#/Vol] 0.33 10*3/uL Normal 0.00-0.40 [facility] Comment on above: Performed By: #### U HUMERAO, UA #### [facility] [address] [place] [address], [place] [id number] Clinic Office Assistant: Ric Eldridge MD Eosinophils/100 WBC (Bld) 2 % Normal 0-5 [facility] Comment on above: Performed By: #### U HUMERAO, UA #### [facility] [address] [place] [address], [place] [id number] Clinic Office Assistant: Ric Eldridge MD Erythrocyte distribution width (RBC) [Ratio] 13.5 % Normal 12.1-15.2 [facility] Comment on above: Performed By: #### U HUMERAO, UA #### [facility] [address] [place] [address], [place] [id number] Clinic Office Assistant: Ric Eldridge MD Hematocrit (Bld) [Volume fraction] 34.2 % Low 36.0-46.0 [facility] Comment on above: Performed By: #### U MICAO, UA #### [facility] [address] [place] [address], [place] [id number] Clinic Office Assistant: Ric Eldridge MD Hemoglobin (Bld) [Mass/Vol] 12.0 g/dL Normal 12.0-16.0 [facility] Comment on above: Performed By: #### U SYDNEY UA #### [facility] [address] [place] [address], [place] [id number] Clinic Office Assistant: Ric Eldridge MD Immature granulocytes/100 WBC (Bld) 0 % Normal 0-5 [facility] Comment on above: Performed By: #### U SYDNEY UA #### [facility] [address] [place] [address], [place] [id number] Clinic Office Assistant: Ric Eldridge MD Lymphocytes (Bld) [#/Vol] 4.04 10*3/uL Normal 1.00-4.80 [facility] Comment on above: Performed By: #### Arcenio GRIMES UA #### [facility] [address] [place] [address], [place] [id number] Clinic Office Assistant: Ric Eldridge MD Lymphocytes/100 WBC (Bld) 28 % Normal 15-40 [facility] Comment on above: Performed By: #### U SYDNEY UA #### [facility] [address] [place] [address], [place] [phone] Clinic Office Assistant: Ric Eldridge MD MCH (RBC) [Entitic mass] 31.1 pg Normal 26.0-34.0 [facility] Comment on above: Performed By: #### U SYDNEY UA #### [facility] [address] [place] [address], [place] [id number] Clinic Office Assistant: Ric Eldridge MD MCHC (RBC) [Mass/Vol] 35.1 g/dL Normal 31.0-37.0 [facility] Comment on above: Performed By: #### U SYDNEY UA #### [facility] [address] [place] [address], [place] [id number] Clinic Office Assistant: Ric Eldridge MD MCV (RBC) [Entitic vol] 88.6 fL Normal 80.0-100.0 [facility] Comment on above: Performed By: #### Arcenio GRIMES UA #### [facility] [address] [place] [address] Clinic Office Assistant: Ric Eldridge MD Monocytes (Bld) [#/Vol] 1.31 10*3/uL High 0.00-1.00 [facility] Comment on above: Performed By: #### Arcenio GRIMES UA #### [facility] [address] [place] [address] Clinic Office Assistant: Ric Eldridge MD Monocytes/100 WBC (Bld) 9 % High 4-8 [facility] Comment on above: Performed By: #### Arcenio GRIMES UA #### [facility] [address] [place] [address] Clinic Office Assistant: Ric Eldridge MD Neutrophil (Seg) 61 % Normal 47-75 [facility] Comment on above: Performed By: #### Arcenio GRIMES UA #### [facility] [address] [place] [address], [place] [id number] Clinic Office Assistant: Ric Edlridge MD Platelet mean volume (Bld) [Entitic vol] 10.9 fL Normal 6.0-12.0 [facility] Comment on above: Performed By: #### Arcenio GRIMES UA #### [facility] [address] [place] [address], [place] [id number] Clinic Office Assistant: Ric Eldridge MD Platelets (Bld) [#/Vol] 354 10*3/uL Normal 140-450 [facility] Comment on above: Performed By: #### U SYDNEY, UA #### [facility] [address] [place] [address] Clinic Office Assistant: Ric Eldridge MD RBC (Bld) [#/Vol] 3.86 10*6/uL Low 4.00-5.20 [facility] Comment on above: Performed By: #### U SYDNEY, UA #### [facility] [address] [place], [place] [phone] Clinic Office Assistant: Ric Eldridge MD WBC (Bld) [#/Vol] 14.4 10*3/uL High 3.5-11.0 [facility] Comment on above: Performed By: #### U SYDNEY, UA #### [facility] [address] [place] [address] Clinic Office Assistant: Ric Eldridge MD [facility] Albumin [Mass/Vol] 4.1 g/dL 3.5 - 5.2 g/dL [facility] Albumin/Globulin [Mass ratio] 1.3 {ratio} 1.0 - 2.[address] [facility] ALP [Catalytic activity/Vol] 67 U/L 35 - 104 U/L [facility] ALT [Catalytic activity/Vol] 11 U/L 5 - 33 U/L [facility] Anion gap [Moles/Vol] 11 mmol/L 9 - 17 mmol/L [facility] AST [Catalytic activity/Vol] 19 U/L NINF - 32 U/L [facility] Bilirubin [Mass/Vol] mg/dL Low 0.3 - 1 .2 mg/dL [facility] Calcium [Mass/Vol] 9.8 mg/dL 8.6 - 10. 4 mg/dL [facility] Chloride [Moles/Vol] 104 mmol/L 98 - 10 7 mmol/L [facility] CO2 [Moles/Vol] 22 mmol/L 20 - 31 mmol/L [facility] Creatinine [Mass/Vol] 0.4 mg/dL Low 0.5 - 0.9 mg/dL [facility] Est, Glom Filt Rate - PINF [facility] Comment on above: These results are [...] [Mass/Vol] 81 mg/dL 70 - 99 mg/dL [facility] Interpretation and review of laboratory results Abnormal [facility] Potassium [Moles/Vol] 3.9 mmol/L 3.7 - 5.3 mmol/L [facility] Protein [Mass/Vol] 7.2 g/dL 6.4 - 8.3 g/dL [facility] Sodium [Moles/Vol] 137 mmol/L 135 - 144 mmol/L [facility] Urea nitrogen [Mass/Vol] 11 mg/dL 6 - 20 mg/dL [facility] Comp Metabolic Profon 2024 Albumin [Mass/Vol] 4.1 g/dL Normal 3.5-5.2 [facility] Comment on above: Performed By: #### Arcenio GRIMES UA #### [facility] [address] [place] [address], [place] [id number] Clinic Office Assistant: Ric Eldridge MD Albumin/Glob Ratio 1.3 Normal 1.0-2.5 [facility] Comment on above: Performed By: #### U SYDNEY UA #### [facility] [address] [place] [address], [place] [phone] Clinic Office Assistant: Ric Eldridge MD Alkaline Phos 67 U/L Normal 35-104 [facility] Comment on above: Performed By: #### U SYDNEY UA #### [facility] [address] [place] [address], [place] [id number] Clinic Office Assistant: Ric Eldridge MD ALT [Catalytic activity/Vol] 11 U/L Normal 5-33 [facility] Comment on above: Performed By: #### U SYDNEY UA #### [facility] [address], [place] 9101[address] Clinic Office Assistant: Ric Eldridge MD Anion gap [Moles/Vol] 11 mmol/L Normal 9-17 [facility] Comment on above: Performed By: #### U MICAO, UA #### [facility] [address] [place] [address], [place] [phone] Clinic Office Assistant: Ric Eldridge MD AST [Catalytic activity/Vol] 19 U/L Normal <32 [facility] Comment on above: Performed By: #### U MICAO, UA #### [facility] [address] [place] [address] Clinic Office Assistant: Ric Eldridge MD Bilirubin [Mass/Vol] mg/dL Low 0.3-1.2 [facility] Comment on above: Performed By: #### U MICAO, UA #### [facility] [address] [place] [address] Clinic Office Assistant: Ric Eldridge MD Calcium [Mass/Vol] 9.8 mg/dL Normal 8.6-10.4 [facility] Comment on above: Performed By: #### U MICAO, UA #### [facility] [address] [place] [address], [place] [id number] Clinic Office Assistant: Ric Eldridge MD Chloride [Moles/Vol] 104 mmol/L Normal 98-107 [facility] Comment on above: Performed By: #### U MICAO, UA #### [facility] [address] [place] [address], [place] [id number] Clinic Office Assistant: Ric Eldridge MD CO2 [Moles/Vol] 22 mmol/L Normal 20-31 [facility] Comment on above: Performed By: #### U MICAO, UA #### [facility] [address] [place] [address], [place] [phone] Clinic Office Assistant: Ric Eldridge MD Creatinine [Mass/Vol] 0.4 mg/dL Low 0.5-0.9 [facility] Comment on above: Performed By: #### U MICAO, UA #### [facility] [address] [place] [address] Clinic Office Assistant: Ric Eldridge MD GFR/1.73 sq M.predicted among non-blacks MDRD (S/P/Bld) [Vol rate/Area] mL/min/{1.73_m2} Normal >60 [facility] Comment on above: Result Comment: These [...] Performed By: #### U HUMERAO, UA #### [facility] [address] [place] [address] Clinic Office Assistant: Ric Eldridge MD Glucose [Mass/Vol] 81 mg/dL Normal 70-99 [facility] Comment on above: Performed By: #### U HUMERAO, UA #### [facility] [address] [place] [address], [place] [phone] Clinic Office Assistant: Ric Eldridge MD Potassium [Moles/Vol] 3.9 mmol/L Normal 3.7-5.3 [facility] Comment on above: Performed By: #### U HUMERAO, UA #### [facility] [address] [place] [address] Clinic Office Assistant: Ric Eldridge MD Protein [Mass/Vol] 7.2 g/dL Normal 6.4-8.3 [facility] Comment on above: Performed By: #### U HUMERAO, UA #### [facility] [address] [place] [address] Clinic Office Assistant: Ric Eldridge MD Sodium [Moles/Vol] 137 mmol/L Normal 135-144 [facility] Comment on above: Performed By: #### U MICAO, UA #### [facility] [address] [place] [address] Clinic Office Assistant: Ric Eldridge MD Urea nitrogen [Mass/Vol] 11 mg/dL Normal 6-20 [facility] Comment on above: Performed By: #### U DERRICK GRIMES #### [facility] [address] [place] [address] Clinic Office Assistant: Ric Eldridge MD Lipaseon 08-08-2024 Lipase [Catalytic activity/Vol] 29 U/L 13 - 60 U/L [facility] Lipase [Catalytic activity/Vol] 29 U/L Normal 13-60 [facility] Comment on above: Performed By: #### U SYDNEY UA #### [facility] [address] [place] [address] Clinic Office Assistant: Ric Eldridge MD Microscopic Urinalysison - [facility] Epithelial cells LM.HPF (Urine sed) [#/Area] 2 TO 5 /HPF [facility] RBC LM.HPF (Urine sed) [#/Area] 0 TO [address] [facility] WBC LM.HPF (Urine sed) [#/Area] None Seen 0 /HPF [facility] No Panel Informationon 08-[address] [facility] Urinalysison 08-08-2024 Bilirubin Ql (U) Negative NEGATIVE [facility] Clarity (U) Clear Clear [facility] Color (U) Yellow Yellow [facility] Comment [facility] Glucose Test strip (U) [Mass/Vol] 250 mg/dL Abnormal NEGATIVE mg/dL [facility] Hemoglobin Auto test strip Ql (U) TRACE Abnormal NEGATIVE [facility] Interpretation and review of laboratory results Abnormal [facility] Ketones (U) [Mass/Vol] Negative NEGATIVE mg/dL [facility] Leukocyte esterase Test strip Ql (U) Negative NEGATIVE [facility] Nitrite Ql (U) Negative NEGATIVE [facility] pH (U) 6.0 [pH] 5.0 - 8.[address] [facility] Protein (U) [Mass/Vol] TRACE Abnormal NEGATIVE mg/dL [facility] Specific gravity (U) [Rel density] 1.025 1.005 - 1.[address] [facility] Urobilinogen Qn (U) Normal 0.0 - 1. 0 EU/dL [facility] Urinalysis, Routineon 2024 Bilirubin, SemiQt,Ur Negative Normal NEG [facility] Comment on above: Performed By: #### U MICAO, UA #### [facility] [address] [place] [address] Clinic Office Assistant: Ric Eldridge MD Blood, Urine TRACE Abnormal NEG [facility] Comment on above: Performed By: #### U MICAO, UA #### [facility] [address] [place] [address], [place] [id number] Clinic Office Assistant: Ric Eldridge MD Clarity (U) Clear Normal CLEAR [facility] Comment on above: Performed By: #### U MICAO, UA #### [facility] [address] [facility] [place] [id number] Clinic Office Assistant: Ric Eldridge MD Color (U) Yellow Normal L [facility] Comment on above: Performed By: #### U MICAO, UA #### [facility] [address] [facility] [place] 439[address] Clinic Office Assistant: Ric Eldridge MD Comment Normal [facility] Comment on above: Performed By: #### U MICAO, UA #### [facility] [address] [facility] [place] [phone] Clinic Office Assistant: Ric Eldridge MD Glucose Ql (U) 250 mg/dL Abnormal NEG [facility] Comment on above: Performed By: #### U MICAO, UA #### [facility] [address] [facility] [place] [id number] Clinic Office Assistant: Ric Eldridge MD Ketones Ql (U) Negative Normal NEG [facility] Comment on above: Performed By: #### U MICAO, UA #### [facility] [address] [place] [address] Clinic Office Assistant: Ric Eldridge MD Leukocyte esterase Test strip Ql (U) Negative Normal NEG [facility] Comment on above: Performed By: #### U MICAO, UA #### [facility] [address] [place] [address] Clinic Office Assistant: Ric Eldridge MD Nitrite,Ur Negative Normal NEG [facility] Comment on above: Performed By: #### U MICAO, UA #### [facility] [address] [place] [address] Clinic Office Assistant: Ric Eldridge MD PH,Ur 6.0 Normal 5.0-8.0 [facility] Comment on above: Performed By: #### U MICAO, UA #### [facility] [address] [place] [address] Clinic Office Assistant: Ric Eldridge MD Protein Ql (U) TRACE Abnormal NEG [facility] Comment on above: Performed By: #### U MICAO, UA #### [facility] [address] [place] [address] Clinic Office Assistant: Ric Eldridge MD Spec. Carmine,Ur 1.025 Normal 1.005-1.030 [facility] Comment on above: Performed By: #### U MICAO, UA #### [facility] [address] [place] [address] Clinic Office Assistant: Ric Eldridge MD Urobilinogen,Ur Normal Normal 0.0-1.0 [facility] Comment on above: Performed By: #### U MICAO, UA #### [facility] [address] [place], [place] [address] Clinic Office Assistant: Ric Eldridge MD Urinalysis,Microon 5 ----- Normal [facility] Comment on above: Performed By: #### U SYDNEY UA #### [facility] [address] [place] [address] Clinic Office Assistant: Ric Eldridge MD Epithelial cells LM Ql (Urine sed) 2 TO 5 Normal [facility] Comment on above: Performed By: #### U SYDNEY, UA #### [facility] [address] [place] [address] Clinic Office Assistant: Ric Eldridge MD Urine RBC's 0 TO 2 Normal 0-2 [facility] Comment on above: Performed By: #### U SYDNEY UA #### [facility] [address] [place] [address] Clinic Office Assistant: Ric Eldridge MD Urine WBC's None Seen Normal 0 [facility] Comment on above: Performed By: #### U SYDNEY UA #### [facility] [address] [place] [address] Clinic Office Assistant: Ric Eldridge MD Laboratory - Chemistry and C hemistry - challengeOrdered By: Mimi Caldera on 07-28-2024 Glucose Ql (U) Negative [facility] Laboratory - UrinalysisOrder ed By: Mimi Caldera on 07-28-2024 Protein Ql (U) Negative [facility] Progressive Care Manager Office Visit Reporton 07-28-2024 Progressive Care Manager Office Visit Report [facility] [address], [address] [place] [address] OFFICE VISIT Date of Service: 07/28/24 MR#: [id number] Acct: [id number] Name: AIMEE REDDY Rep #: [id number] : 2000 Provider: Dr. 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 Normal [facility] Laboratory - Chemistry and C hemistry - challengeon 07-01-2024 Glucose Ql (U) Negative [facility] Laboratory - Urinalysison Protein Ql (U) Negative [facility] Progressive Care Manager Office Visit Reporton 07-01-2024 Progressive Care Manager Office Visit Report [facility] [address], [address] [place] [address] OFFICE VISIT Date of Service: 07/01/24 MR#: [id number] Acct: [id number] Name: AIMEE REDDY Rep #: [id number] : 2000 Provider: ANDREW early Age/Sex: 24/F Location[place] [facility] Status: Signed Intake Vital Signs 05/29/24 11:19 07/01/24 09:26 Height 5 ft 4 in 5 ft 4 in Weight: 124 lb 6 oz BMI 21.3 BP 107/61 Intake Visit Reasons: 14wk OB Chief Complaint: 14 Week OB Machine 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 13/14 Carrier for Cystic Fibrosis;FOB Karen Merino to be tested (3) Cystic fibrosis carrier: Status: Acute Comment: FOB to be tested (more content not included)... Normal [facility] Absolute neutrophil countOrd ered By: Kassi Ontiveros on 06-19-2024 Neutrophils (Bld) [#/Vol] 12.1 10*3/uL High 2.0-7.7 [facility] Basophil percentageOrdered B y: Kassi Ontiveros on 06-19-2024 Basophils/100 WBC (Bld) 0.4 % 0-1 [facility] CBC W/Diff, Automatedon 05-25 Absolute Lymph 3.09 X10 3/uL Normal 0.83-4.51 [facility] Comment on above: Performed By: #### L 509.4005, L3890.6005, L900.0098, L3890.6100, L100.0100, BTS, L3890.6300, L509.8000 ####[facility] [address] [place], [address] Absolute Neut 12.1 X10 3/uL High 2.0-7.7 [facility] Comment on above: Performed By: #### L 509.4005, L3890.6005, L900.0098, L3890.6100, L100.0100, BTS, L3890.6300, L509.8000 ####[facility] [address] [place], [address] Basophils/100 WBC (Bld) 0.4 % Normal 0-1 [facility] Comment on above: Performed By: #### L 509.4005, L3890.6005, L900.0098, L3890.6100, L100.0100, BTS, L3890.6300, L509.8000 ####[facility] [address] [place], [address] Eosinophils/100 WBC (Bld) 1.4 % Normal 0-5 [facility] Comment on above: Performed By: #### L 509.4005, L3890.6005, L900.0098, L3890.6100, L100.0100, BTS, L3890.6300, L509.8000 ####[facility] [address] [place], [address] Erythrocyte distribution width (RBC) [Ratio] 13.5 % Normal 11.6-14.6 [facility] Comment on above: Performed By: #### L 509.4005, L3890.6005, L900.0098, L3890.6100, L100.0100, BTS, L3890.6300, L509.8000 ####[facility] [address] [place], [address] Hematocrit (Bld) [Volume fraction] 39.3 % Normal 37-47 [facility] Comment on above: Performed By: #### L 509.4005, L3890.6005, L900.0098, L3890.6100, L100.0100, BTS, L3890.6300, L509.8000 ####[facility] [address] [place], [address] Hemoglobin (Bld) [Mass/Vol] 12.9 g/dL Normal 12.0-15.0 [facility] Comment on above: Performed By: #### L 509.4005, L3890.6005, L900.0098, L3890.6100, L100.0100, BTS, L3890.6300, L509.8000 ####[facility] [address] [place], [address] IG% 0.500 Normal 0.0-0.9 [facility] Comment on above: Result Comment: IG% - Immature Granulocytes (promyelocytes, myelocytes and metamyelocytes) > 1% indicates that a LEFT SHIFT is Present. Performed By: #### L 509.4005, L3890.6005, L900.0098, L3890.6100, L100.0100, BTS, L3890.6300, L509.8000 ####[facility] [address] [place], [address] Lymphocytes/100 WBC (Bld) 18.1 % Low 19-41 [facility] Comment on above: Performed By: #### L 509.4005, L3890.6005, L900.0098, L3890.6100, L100.0100, BTS, L3890.6300, L509.8000 ####[facility] [address] [place], [address] MCH (RBC) [Entitic mass] 29.7 pg Normal 27.0-32.0 [facility] Comment on above: Performed By: #### L 509.4005, L3890.6005, L900.0098, L3890.6100, L100.0100, BTS, L3890.6300, L509.8000 ####[facility] [address] [place], [address] MCHC (RBC) [Mass/Vol] 32.8 g/dL Normal 32-36 [facility] Comment on above: Performed By: #### L 509.4005, L3890.6005, L900.0098, L3890.6100, L100.0100, BTS, L3890.6300, L509.8000 ####[facility] [address] [place], [address] MCV (RBC) [Entitic vol] 90.6 fL Normal 81-99 [facility] Comment on above: Performed By: #### L 509.4005, L3890.6005, L900.0098, L3890.6100, L100.0100, BTS, L3890.6300, L509.8000 ####[facility] [address] [place], [address] Monocytes/100 WBC (Bld) 8.6 % Normal 0-10 [facility] Comment on above: Performed By: #### L 509.4005, L3890.6005, L900.0098, L3890.6100, L100.0100, BTS, L3890.6300, L509.8000 ####[facility] [address] [place], [address] Neutrophils/100 WBC (Bld) 71.0 % High 47-70 [facility] Comment on above: Performed By: #### L 509.4005, L3890.6005, L900.0098, L3890.6100, L100.0100, BTS, L3890.6300, L509.8000 ####[facility] [address] [place], [address] Nucleated RBC (Bld) [#/Vol] 0 10*3/uL Normal 0-5 [facility] Comment on above: Performed By: #### L 509.4005, L3890.6005, L900.0098, L3890.6100, L100.0100, BTS, L3890.6300, L509.8000 ####[facility] [address] [place], [address] Platelet mean volume (Bld) [Entitic vol] 11.5 fL Normal 6.2-12.0 [facility] Comment on above: Performed By: #### L 509.4005, L3890.6005, L900.0098, L3890.6100, L100.0100, BTS, L3890.6300, L509.8000 ####[facility] [address] [place], [address] Platelets (Bld) [#/Vol] 424 10*3/uL Normal 150-450 [facility] Comment on above: Performed By: #### L 509.4005, L3890.6005, L900.0098, L3890.6100, L100.0100, BTS, L3890.6300, L509.8000 ####[facility] [address] [place], [address](635) RBC (Bld) [#/Vol] 4.34 10*6/uL Normal 4.2-5.4 [facility] Comment on above: Performed By: #### L 509.4005, L3890.6005, L900.0098, L3890.6100, L100.0100, BTS, L3890.6300, L509.8000 ####[facility] [address] [place], [place], [phone] RDW SD 45.9 fl High 35.1-43.9 [facility] Comment on above: Performed By: #### L 509.4005, L3890.6005, L900.0098, L3890.6100, L100.0100, BTS, L3890.6300, L509.8000 ####[facility] [address] [place], [place], [phone]) WBC (Bld) [#/Vol] 17.0 10*3/uL High 4.4-11.0 [facility] Comment on above: Performed By: #### L 509.4005, L3890.6005, L900.0098, L3890.6100, L100.0100, BTS, L3890.6300, L509.8000 ####[facility] [address] [place], [place], [phone] Eosinophil percentageOrdered By: Kassi Ontiveros on 06-19-2024 Eosinophils/100 WBC (Bld) 1.4 % 0-5 [facility] Erythrocyte distribution wid th (RBC) [Ratio]Ordered By: Kassi Ontiveros on 06-19-2024 Erythrocyte distribution width (RBC) [Entitic vol] 45.9 fL High 35.1-43.9 [facility] Erythrocyte distribution wid th ratioOrdered By: Kassi Ontiveros on 06-19-2024 Erythrocyte distribution width (RBC) [Ratio] 13.5 % 11.6-14.6 [facility] HIV - WCHon 06-19-2024 HIV Non-Reactive Normal Nonreactive [facility] Comment on above: Order Comment: Reaso n for Exam: Performed By: #### L 509.4005, L3890.6005, L900.0098, L3890.6100, L100.0100, BTS, L3890.6300, L509.8000 ####[facility] [address] [place], [address] HIV 1+2 Ab+HIV1 p24 Ag IA Ql Ordered By: Kassi Ontiveros on 06-19-2024 HIV (1&2) Antibody Non-Reactive Nonreactive [facility] Hematocrit Auto (Bld) [Volum e fraction]Ordered By: Kassi Ontiveros on 06-19-2024 Hematocrit (Bld) [Volume fraction] 39.3 % 37-47 [facility] Hemoglobin measurementOrdere d By: Kassi Ontiveros on 06-19-2024 Hemoglobin (Bld) [Mass/Vol] 12.9 g/dL 12.0-15.0 [facility] Hepatitis B Surface Antigeno n 06-19-2024 HEP B Surf Ag Non-Reactive [facility] Comment on above: Order Comment: Reaso n for Exam: Performed By: #### L 509.4005, L3890.6005, L900.0098, L3890.6100, L100.0100, BTS, L3890.6300, L509.8000 ####[facility] [address] [place], [address] Hepatitis B surface antigen detectionOrdered By: Kassi Ontiveros on 06-19-2024 Hepatitis B Surface Antigen Non-Reactive Nonreactive [facility] Hepatitis C Antibodyon 06-19 Hepatitis C AB Non-Reactive Normal [facility] Comment on above: Order Comment: Reaso n for Exam: Result Comment: Non Reactive: < 0.8 Equivocal: >/= 0.8 to < 1.0 Reactive: >/= 1.0 The CDC requires that a reactive/equivocal HCV antibody result be sent out for confirmation. HCV Quant by PCR testing. Performed By: #### L 509.4005, L3890.6005, L900.0098, L3890.6100, L100.0100, BTS, L3890.6300, L509.8000 ####[facility] [address] [place], [place], [phone] Hepatitis C virus antibody a ssayOrdered By: Kassi Ontiveros on 06-19-2024 Hepatitis C Antibody Non-Reactive Nonreactive [facility] Comment on above: Non Reactive: < 0.8 Equivocal: >/= 0.8 to < 1.0 Reactive: >/= 1.0The CDC requires that a reactive/equivocal HCV antibody result be sent out for confirmation. HCV Quant by PCR testing. Immature granulocytes/100 WB C Auto (Bld)Ordered By: Kassi Ontiveros on 06-19-2024 Immature granulocytes/100 WBC (Bld) 0.500 % 0.0-0.9 [facility] Comment on above: IG% - Immature Granu locytes (promyelocytes, myelocytes and metamyelocytes) > 1% indicates that a LEFT SHIFT is Present. L509.8000on 06-19-2024 Syphilis Abs Non-Reactive Normal [facility] Comment on above: Order Comment: Reaso n for Exam: Performed By: #### L 509.4005, L3890.6005, L900.0098, L3890.6100, L100.0100, BTS, L3890.6300, L509.8000 ####[facility] [address] [place], [place], [phone] Lymphocytes Auto (Unsp spec) [#/Vol]Ordered By: Kassi Ontiveros on 06-19-2024 Lymphocytes (Bld) [#/Vol] 3.09 10*3/uL 0.83-4.51 [facility] Lymphocytes/100 WBC Auto (Un sp spec)Ordered By: Kassi Ontiveros on 06-19-2024 Lymphocytes/100 WBC (Bld) 18.1 % Low 19-41 [facility] MCV (mean corpuscular volume ) determinationOrdered By: Kassi Ontiveros on 06-19-2024 MCV (RBC) [Entitic vol] 90.6 fL 81-99 [facility] Mean corpuscular hemoglobin (MCH) determinationOrdered By: Kassi Ontiveros on 06-19-2024 MCH (RBC) [Entitic mass] 29.7 pg 27.0-32.0 [facility] Mean corpuscular hemoglobin concentration (MCHC) determinationOrdered By: Kassi Ontiveros on 06-19-2024 MCHC (RBC) [Mass/Vol] 32.8 g/dL 32-36 [facility] Mean platelet volume determi nationOrdered By: Kassi Ontiveros on 06-19-2024 Platelet mean volume (Bld) [Entitic vol] 11.5 fL 6.2-12.0 [facility] Miscellaneous procedureOrder ed By: Kassi Ontiveros on 06-19-2024 Miscellaneous Test Comment SEE SCANNED REPORT [facility] Monocyte percentageOrdered B y: Kassi Ontiveros on 06-19-2024 Monocytes/100 WBC (Bld) 8.6 % 0-10 [facility] NATERAon 06-19-2024 NATURA SEE SCANNED REPORT Normal [facility] Comment on above: Order Comment: Comme nts: NIPT with gender carrier testing Performed By: #### L 509.4005, L3890.6005, L900.0098, L3890.6100, L100.0100, BTS, L3890.6300, L509.8000 ####[facility] [address] [place], [address] Neutrophil percentageOrdered By: Kassi Ontiveros on 06-19-2024 Neutrophils/100 WBC (Bld) 71.0 % High 47-70 [facility] Nucleated red blood cell per centageOrdered By: Kassi Ontiveros on 06-19-2024 Nucleated RBC/100 WBC (Bld) [Ratio] 0 % 0-5 [facility] Platelet countOrdered By: Evangelina Ontiveros on 06-19-2024 Platelets (Bld) [#/Vol] 424 10*3/uL 150-450 [facility] RBC Auto (Bld) [#/Vol]Ordere d By: Kassi Ontiveros on 06-19-2024 RBC (Bld) [#/Vol] 4.34 10*6/uL 4.2-5.4 [facility] Rubella IgGon 06-19-2024 Rubella IgG Non-Reactive Normal Nonreactive [facility] Comment on above: Order Comment: Reaso n for Exam: Result Comment: Anti body Results Interpretation of Immune Status Non Reactive Presumed Non-Immune Equivocal Equivocal Reactive Presumed Immune Performed By: #### L 509.4005, L3890.6005, L900.0098, L3890.6100, L100.0100, BTS, L3890.6300, L509.8000 ####[facility] [address] [place], [place], [phone] Rubella immune status IgGOrd ered By: Kassi Ontiveros on 06-19-2024 Rubella IgG Antibody Non-Reactive Nonreactive [facility] Comment on above: Antibody Results Int erpretation of Immune Status Non Reactive Presumed Non-Immune Equivocal Equivocal Reactive Presumed Immune Treponema sp Ab Ql (S)Ordere d By: Kassi Ontiveros on 06-19-2024 Syphilis Total Antibody Non-Reactive [facility] Type AND Screenon 06-19-2024 Ab SCREEN GEL Negative Normal [facility] Comment on above: Order Comment: PN Performed By: #### L 509.4005, L3890.6005, L900.0098, L3890.6100, L100.0100, BTS, L3890.6300, L509.8000 ####[facility] [address] [place], [place], [phone] ABO and Rh group Nom (Bld) Blood group O Rh(D) positive Normal [facility] Comment on above: Order Comment: PN Performed By: #### L 509.4005, L3890.6005, L900.0098, L3890.6100, L100.0100, BTS, L3890.6300, L509.8000 ####[facility] [address] [place], [place], [phone] White blood cell (WBC) count Ordered By: Kassi Ontiveros on 06-19-2024 WBC (Bld) [#/Vol] 17.0 10*3/uL High 4.4-11.0 [facility] Chlamydia/GC CONOR aptimaon CHLAMY,NUC ACID Negative Normal Negative [facility] Comment on above: Performed By: #### M 100.2200, L7000.1800 ####[facility] [address] [place], [place], [phone] GC BY NUC ACID Negative Normal Negative [facility] Comment on above: Result Comment: Perf ormed at: =G - [facility] [address] [id number] Clinic Office Assistant: Agueda Cuadra MD, Phone: [phone] Performed By: #### M 100.2200, L7000.1800 ####[facility] [address] [place], [place], [phone] Urine Cultureon 05-31-2024 [facility] Escherichia coli Sixes Count 11,000-25,000 Escherichia coli: REACTION Ampicillin Islt [...] TMP SMX Islt HUMERA <=20 S Normal [facility] Comment on above: Performed By: #### M 100.2200, L7000.1800 ####[facility] [address] [place], [place], [phone] C. trachomatis rRNA CONOR+prob e Ql (Unsp spec)Ordered By: Kassi Ontiveros on 05-29-2024 Chlamydia DNA (CONOR) Negative Negative [facility] Neisseria gonorrhoeae nuclei c acid detection by amplified probe techniqueOrdered By: Kassi Ontiveros on 05-29-2024 N. gonorrhoeae DNA CONOR+probe Ql (Unsp spec) Negative Negative [facility] Comment on above: Performed at: =[facility] [place] [id number] Director: Agueda Cuadra MD, Phone: [phone] Progressive Care Manager Office Visit Reporton 05-29-2024 Progressive Care Manager Office Visit Report [facility] [address], [address] [place] [address] OFFICE VISIT Date of Service: 05/29/24 MR#: [id number] Acct: [id number] Name: AIMEE REDDY Rep #: [id number] : 2000 Provider: JOEL kenyon Age/Sex: 24/F [place] [facility] [place]: Signed Intake Vital Signs 05/29/24 11:19 Height 5 ft 4 in Weight: 125 lb 4 oz BMI 21.4 BP 127/76 H Intake Visit Reasons: New OB, LMP 03/24/25, TERESITA 12/29/24 Machine Programmer Required: No Is patient in pain?: No [...] 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 occupational 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 Normal [facility] Urine cultureOrdered By: Easton Ontiveros on 05-29-2024 Bacteria identified Cx Nom (U) Escherichia coli Abnormal [facility] US PELVIC TRANSVAGINAL WITH COLOR FLOWon [...] SatMar 20, 2024 11:19:58 AM EDT [facility] Comment on above: Order Comment: Injur [...] measuring up to 20 mm. There is rgho-aq-qxyepfkt free fluid in the pelvis. There is no suspicious adnexal mass. Lymph nodes: No retroperitoneal or abdominal lymphadenopathy. Vascular: The aorta demonstrates normal caliber without aneurysm or dissection.The branch vessels of the aorta are widely patent. Peritoneum: Mild to moderate ascites in the pelvis. Abdominal wall and Skeletal: Unremarkable without acute abnormality. _ IMPRESSION: 1. There is a lvuk-ta-yrektndz amount of free fluid in the pelvis [...] AM EDT Finalized by: VARGHESE ALCANTAR on Drake Mar 15, 2024 9:07:50 AM EDT [facility] Comment on above: Order Comment: Injur y/Trauma or Illness?:Illness/Other How long have you had these symptoms (acute/chronic)?:Acute Reason for exam?:lower abd pain Type of Exam?:Initial Additional signs and symptoms?:pain x hours ED Prov Noteon 03-15-2024 ED Prov Note ED PROVIDER NOTE [facility] NAME: Aimee Reddy AGE: 24 y.o. : 2000 VISIT DATE: 03/15/2024 CSN: [id number] PCP: No, Physician Chief Complaint Patient presents [...] with biopsy; Surgeon: Sergio Gray MD; Location: [facility]; Service: General Surgery EGD N/A 02/24/2019 Procedure: ESOPHAGOGASTRODUODENOSCO PY with biopsy; Surgeon: Sergio Gray MD; Location: [facility]; Service: General Surgery SPLENECTOMY, TOTAL 2011 [...] Financial Resource Strain: Unknown (11/16/2021) Received from [facility] Overall Financial Resource Strain (CARDIA) Difficulty of Paying Living Expenses: Patient declined Food Insecurity: Unknown (11/16/2021) Received from [facility] Hunger Vital Sign Worried About Running Out of Food in the Last Year: Patient declined Ran Out of Food in the Last Year: Patient declined Transportation Needs: Unknown (11/16/2021) Received from [facility] PRAPARE - Transportation Lack of Transportation (Medical): Patient declined Lack of Transportation (Non-Medical): Patient declined Physical Activity: Unknown (11/16/2021) Received from [facility] Exercise Vital Sign Days of Exercise per Week: Patient declined Minutes of Exercise per Session: Patient declined Stress: Unknown (11/16/2021) Received from [facility] [employer] [place] [place] [facility] [employer] [facility] - Occupational Stress Questionnaire Feeling of Stress : Patient declined Social Connections: Unknown (11/16/2021) [facility] Social Connection and Isolation Panel [NHANES] Frequency of Communication with Friends and Family: Patient declined Frequency of Social Gatherings with Friends and Family: Patient declined Attends Pentecostal Services: Patient declined Active Member of Clubs or Organizations: Patient declined Attends Club or Organization Meetings: Patient declined Marital Status: Patient declined Housing Stability: Unknown (11/16/2021) [facility] Housing Stability Vital Sign Unable [...] Normocephalic. Eyes: (more content not included)... Normal [facility] POC BASIC METABOLIC PANEL - [facility] 03-15-2024 Chloride [Moles/Vol] 111 mmol/L High 98-108 [facility] Comment on above: Order Comment: [facility] has implemented the eGFR calculation approach that does not have a coefficient for race that conforms to the NKF-ASN Task Force Recommendations. CO2 [Moles/Vol] 25 mmol/L Normal 21-32 [facility] Comment on above: Order Comment: [facility] has implemented the eGFR calculation approach that does not have a coefficient for race that conforms to the NKF-ASN Task Force Recommendations. Creatinine [Mass/Vol] 0.45 mg/dL Normal 0.40-1.10 [facility] Comment on above: Order Comment: [facility] has implemented the eGFR calculation approach that does not have a coefficient for race that conforms to the NKF-ASN Task Force Recommendations. Glucose [Mass/Vol] 108 mg/dL High 65-99 [facility] Comment on above: Order Comment: [facility] has implemented the eGFR calculation approach that does not have a coefficient for race that conforms to the NKF-ASN Task Force Recommendations. POC GFR 138 mL/min/1.73 m2 Normal >=60 [facility] Comment on above: Order Comment: [facility] has implemented the eGFR calculation approach that does not have a coefficient for race that conforms to the NKF-ASN Task Force Recommendations. Result Comment: Yoly mated GFR was calculated using the 2020 CKD-EPI creatinine equation. POC IONIZED CALCIUM 4.5 mg/dL Normal 4.5-5.3 [facility] Comment on above: Order Comment: [facility] has implemented the eGFR calculation approach that does not have a coefficient for race that conforms to the NKF-ASN Task Force Recommendations. Potassium [Moles/Vol] 4.5 mmol/L Normal 3.5-5.1 [facility] Comment on above: Order Comment: [facility] has implemented the eGFR calculation approach that does not have a coefficient for race that conforms to the NKF-ASN Task Force Recommendations. Sodium [Moles/Vol] 145 mmol/L Normal 135-145 [facility] Comment on above: Order Comment: [facility] has implemented the eGFR calculation approach that does not have a coefficient for race that conforms to the NKF-ASN Task Force Recommendations. Urea nitrogen [Mass/Vol] 6 mg/dL Low 8-25 [facility] Comment on above: Order Comment: [facility] has implemented the eGFR calculation approach that does not have a coefficient for race that conforms to the NKF-ASN Task Force Recommendations. Chloride [Moles/Vol] 112 mmol/L High 98-108 [facility] Comment on above: Order Comment: Criti courtney result acted upon time of test. Test performed at bedside. [facility] has implemented the eGFR calculation approach that does not have a coefficient for race that conforms to the NKF-ASN Task Force Recommendations. CO2 [Moles/Vol] 26 mmol/L Normal 21-32 [facility] Comment on above: Order Comment: Criti courtney result acted upon time of test. Test performed at bedside. [facility] has implemented the eGFR calculation approach that does not have a coefficient for race that conforms to the NKF-ASN Task Force Recommendations. Creatinine [Mass/Vol] 0.53 mg/dL Normal 0.40-1.10 [facility] Comment on above: Order Comment: Criti courtney result acted upon time of test. Test performed at bedside. [facility] has implemented the eGFR calculation approach that does not have a coefficient for race that conforms to the NKF-ASN Task Force Recommendations. Glucose [Mass/Vol] 101 mg/dL High 65-99 [facility] Comment on above: Order Comment: Criti courtney result acted upon time of test. Test performed at bedside. [facility] has implemented the eGFR calculation approach that does not have a coefficient for race that conforms to the NKF-ASN Task Force Recommendations. POC GFR 133 mL/min/1.73 m2 Normal >=60 [facility] Comment on above: Order Comment: Criti courtney result acted upon time of test. Test performed at bedside. [facility] has implemented the eGFR calculation approach that does not have a coefficient for race that conforms to the NKF-ASN Task Force Recommendations. Result Comment: Yoly mated GFR was calculated using the 2020 CKD-EPI creatinine equation. POC IONIZED CALCIUM 4.2 mg/dL Low 4.5-5.3 [facility] Comment on above: Order Comment: Criti courtney result acted upon time of test. Test performed at bedside. [facility] has implemented the eGFR calculation approach that does not have a coefficient for race that conforms to the NKF-ASN Task Force Recommendations. Potassium [Moles/Vol] 8.2 mmol/L Off scale high 3.5-5.1 [facility] Comment on above: Order Comment: Criti courtney result acted upon time of test. Test performed at bedside. [facility] has implemented the eGFR calculation approach that does not have a coefficient for race that conforms to the NKF-ASN Task Force Recommendations. Sodium [Moles/Vol] 142 mmol/L Normal 135-145 [facility] Comment on above: Order Comment: Criti courtney result acted upon time of test. Test performed at bedside. [facility] has implemented the eGFR calculation approach that does not have a coefficient for race that conforms to the NKF-ASN Task Force Recommendations. Urea nitrogen [Mass/Vol] 6 mg/dL Low 8-25 [facility] Comment on above: Order Comment: Criti courtney result acted upon time of test. Test performed at bedside. [facility] has implemented the eGFR calculation approach that does not have a coefficient for race that conforms to the NKF-ASN Task Force Recommendations. POC CBC AND DIFFERENTIALon 0 03-15-2024 BASOPHILS ABSOLUTE COUNT 0.02 K/mcL Normal 0.00-0.30 [facility] Basophils/100 WBC (Bld) 0.2 % Normal [facility] Eosinophils (Bld) [#/Vol] 0.21 10*3/uL Normal 0.00-0.50 [facility] Eosinophils/100 WBC (Bld) 1.6 % Normal [facility] Erythrocyte distribution width (RBC) [Ratio] 13.8 % Normal 11.6-14.8 [facility] Hematocrit (Bld) [Volume fraction] 46.2 % High 36.0-46.0 [facility] Hemoglobin (Bld) [Mass/Vol] 15.5 g/dL Normal 12.0-16.0 [facility] IG ABSOLUTE 0.05 K/mcL Normal 0.00-0.30 [facility] IG PERCENT 0.40 % Normal [facility] Comment on above: Result Comment: The IG parameter is the percentage of metamyelocytes, myelocytes and promyelocytes. An immature granulocyte count (IG) of 1% or more suggests the possibility of infection, an IG count of 3% is very likely related to an infection. Lymphocytes (Bld) [#/Vol] 5.09 10*3/uL High 0.90-4.00 [facility] Lymphocytes/100 WBC (Bld) 39.5 % Normal [facility] MCH (RBC) [Entitic mass] 29.8 pg Normal 26.0-34.0 [facility] MCV (RBC) [Entitic vol] 88.8 fL Normal 80.0-100.0 [facility] MEAN CORPUSCULAR HEMOGLOBIN CONC 33.5 g/dL Normal 31.0-37.0 [facility] Monocytes (Bld) [#/Vol] 1.15 10*3/uL High 0.30-0.90 [facility] Monocytes/100 WBC (Bld) 8.9 % Normal [facility] NEUTROPHILS ABSOLUTE COUNT 6.35 K/mcL Normal 1.70-7.00 [facility] Neutrophils/100 WBC (Bld) 49.4 % Normal [facility] Platelet mean volume (Bld) [Entitic vol] 12.2 fL Normal 9.4-12.4 [facility] Platelets (Bld) [#/Vol] 121 10*3/uL Low 150-400 [facility] RBC (Bld) [#/Vol] 5.20 10*6/uL Normal 4.00-5.20 [facility] WBC (Bld) [#/Vol] 12.87 10*3/uL High 4.50-11.00 [facility] POC LIVER PANEL PLUS [facility] 03-15-2024 Albumin [Mass/Vol] 4.2 g/dL Normal 3.2-5.2 [facility] ALP [Catalytic activity/Vol] 64 U/L Normal 40-140 [facility] ALT [Catalytic activity/Vol] 18 U/L Normal 0-40 [facility] Amylase [Catalytic activity/Vol] 22 U/L Low 25-115 [facility] Amylase [Catalytic activity/Vol] 17 U/L Normal 7-33 [facility] POC AST (SGOT) Normal [facility] Comment on above: Result Comment: Resu lt unable to be determined. POC BILIRUBIN, TOTAL Normal [facility] Comment on above: Result Comment: Resu lt unable to be determined. Protein [Mass/Vol] 8.9 g/dL High 6.0-8.0 [facility] POC , URINE - [facility] 03-15-2024 Beta HCG ( test) Ql (U) Negative Normal Negative [facility] Comment on above: Order Comment: Negat luis alberto: Dilute urine specimens, as indicated by a low specific gravity (<1.010) may not contain representitive levels of hCG. If is still suspected, a serum test or repeat urine test using a first morning urine specimen should be considered. POC URINALYSIS DIPSTICK,AUTO - [facility] 03-15-2024 POC BILIRUBIN, URINE Negative Normal Negative [facility] POC BLOOD, URINE Negative Normal Negative [facility] POC GLUCOSE, URINE Negative Normal Negative [facility] POC KETONES, URINE Negative Normal Negative [facility] POC LEUKOCYTE ESTERASE, URINE Negative Normal Negative [facility] POC NITRITE, URINE Negative Normal Negative [facility] POC PH, URINE 7.0 Normal 5.0-7.0 [facility] POC PROTEIN, URINE Negative Normal Negative [facility] POC SPECIFIC GRAVITY 1.020 Normal 1.005-1.025 [facility] POC UROBILINOGEN 0.2 mg/dL Normal < 2.0 [facility] Provider Note - ED v3on 05-3 Provider [...] Description:NONE PER PT Past Surgical History Description:SPLENECTOMY 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: Is : no Is : no REVIEW [...] SIGNS: T PRBP SpO2O2(LPM) %FiO2 Method 20-Nov-2022 11:19:[id number]/73 97 MDM MDM/ED COURSE: Discussed Findings with: [...] ill patient: no Electronic Signatures: Kevin Almeida (SOLAR SALES REPRESENTATIVE AND ASSESSOR-[employer]) (Signed 20-Nov-2022 11:40) Authored: ED Notes, HPI, PMH, ROS, PE, Results/Vital Signs, MDM/ED Course, Clinical Impression, Attestation, Chart Review, Scores Last Updated: 20-Nov-2022 11:40 by Kevin Almeida (SOLAR SALES REPRESENTATIVE AND ASSESSOR-[employer]) [facility] A STREP,PCRon 11-03-19 23 GROUP A STREP,PCR Not detected Normal Not Detected [facility] Comment on above: Result Comment: This test and its performance have been Validated by [facility] Laboratory using analyte specific reagents (ASR). It has not been cleared or approved by the U.S. Food and Drug Administration. The FDA has determined that such clearance or approval is not necessary. Performed By: #### G APC1 #### [facility] [address] [place] [address] CORONAVIRUS 2019 BY PCRon SARS-CoV-2 (COVID-19) RNA CONOR+probe Ql (Unsp spec) Not detected Normal Not Detected [facility] Comment on above: Result Comment: . This test has received FDA Emergency Use Authorization (EUA) and has been verified by [facility]. This test is only authorized for the duration of time that circumstances exist to justify the authorization of the emergency use of in vitro diagnostic tests for the detection of SARS-CoV-2 virus and/or diagnosis of COVID-19 infection under section 564(b)(1) of the Act, 21 U.S.C. 360bbb-3(b)(1), unless the authorization is terminated or revoked sooner. [facility] is certified under CLIA-88 as qualified to perform high complexity testing. Testing is performed in the [facility] laboratory located at [address] [place] [address]. SARS-CoV-2/Flu/RSV Multiplex Test: Fact sheet for providers: https://www.fda.gov/media/975421/download Fact sheet for patients: https://www.fda.gov/media/751865/download Performed By: #### C OV19 #### [place] [address] Lab Specimen Source Nasal, Nasopharyngeal Normal [facility] Comment on above: Performed By: #### C OV19 #### [place] [address] Covid 19 Resultson 3 SARS-CoV-2 (COVID-19) RNA CNOOR+probe Ql (Unsp spec) NEGATIVE COVID-19 Test Coronaviruses [...] You may also be contacted by the [place] Department of Health to see if any [...] or Naproxen (Aleve) can also be used. Ouoj-dki-ofoopmx cough and cold medicines can be used according to the instructions on the package. Some nfqv-kcv-omjffxg medicines also contain acetaminophen. Make sure you [...] water are not available, use alcohol-based hand merchandise stocker. Avoid touching your eyes, nose, and mouth [...] 24 carson (more content not included)... Normal [facility] GROUP A STREP,PCRon 11-02-19 23 Lab Specimen Source Throat Normal [facility] Comment on above: Performed By: #### G APC1 #### [facility] [address] [place] [address] Provider Note - ED v3on 10-22 Provider [...] SIGNS: T PRBP SpO2O2(LPM) %FiO2 Method 01-Nov-2022 09:09:00-36.524744/75 97 MDM MDM/ED COURSE: Limitations to History: n/a HPI: Patient presents with several days of upper respiratory symptoms, cough congestion runny nose, and sore throat, symptoms seem to be getting worse, has tried hynr-vhg-ogctiwn medications, here for further evaluation + fever. [...] media, conjunctivitis, strep, sinusitis, foreign body, mono, htcy-nhfo-gpt-mouth/coxs ackie herpangina, bronchitis/bronchiolitis , croup, allergic rhinitis, [...] educated that are also helpful and available tegt-vte-vziakym. I discussed the results and discharge plan [...] message on machine Electronic Signatures: Jia Lindsay ([employer]AR SALES REPRESENTATIVE AND ASSESSOR-[employer]) (Signed 01-Nov-2022 09:39) Authored: HPI, PMH, Results/Vital Signs, MDM/ED Course, Clinical Impression, Attestation, Chart Review, Scores Alethea Najera (MA II) (Signature Pending) Authored: Attestation Last Updated: 01-Nov-2022 14:01 (more content not included)... Normal [facility] GC + CHLAMYDIA BY AMPLIFIED DETECTIONon 09-26-2022 CHLAMYDIA TRACH.,AMPLIFIED Negative Normal Negative [facility] Comment on above: Result Comment: The APTIMA Combo 2 assay is FDA-approved for Chlamydia trachomatis and Neisseria gonorrhoeae testing on female endocervical and vaginal swabs, ThinPrep liquid pap samples, male urine samples and urethral swabs. Performance characteristics for Chlamydia trachomatis and Neisseria gonorrhoeae testing on specific svl-CQY-tahlmnop sample types (female urine samples) have been validated by [facility]. This laboratory is certified by CLIA to perform high complexity testing. Samples from all other sites are not validated for this method. Performed By: #### [facility] #### [facility] [address] [place] [address] N.GONORRHEA,AMPLIFIED Negative Normal Negative [facility] Comment on above: Result Comment: The APTIMA Combo 2 assay is FDA-approved for Chlamydia trachomatis and Neisseria gonorrhoeae testing on female endocervical and vaginal swabs, ThinPrep liquid pap samples, male urine samples and urethral swabs. Performance characteristics for Chlamydia trachomatis and Neisseria gonorrhoeae testing on specific zbs-AGP-eiypwbti sample types (female urine samples) have been validated by [facility]. This laboratory is certified by CLIA to perform high complexity testing. Samples from all other sites are not validated for this method. Performed By: #### [facility] #### [facility] [address] [place] [id number] GC + CHLAMYDIA BY AMPLIFIED DETECTIONon 09-25-2022 Lab Specimen Source Urine Normal [facility] Comment on above: Performed By: #### [facility] #### [facility] [address] [place] [address] GROUP A STREP,PCRon 09-26-19 23 GROUP A STREP,PCR Not detected Normal Not Detected [facility] Comment on above: Result Comment: This test was performed utilizing an FDA- cleared rapid nucleic acid amplification by PCR to qualitatively detect Group A Streptococci from throat swab specimens without the need for culture confirmation of negative results. 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 Prefers not to repeat oral swab as testing was not completed per lab. Rx Zpak and prednisone. Electronic Signatures: Kevin Almeida (SOLAR SALES REPRESENTATIVE AND ASSESSOR-[facility]) (Signed 26-Sep-2022 15:15) Authored: ED Notes, HPI, PMH, ROS, PE, Results/Vital Signs, MDM/ED Course, Clinical Impression, Attestation, Chart Review, Scores Last Updated: 26-Sep-2022 15:16 by Kevin Almeida (SOLAR SALES REPRESENTATIVE AND ASSESSOR-[employer]) [facility] Culture, Throaton 07-23-2022 Culture, Throat ORDER#: [id number] ORDERED BY: JAG GARCIA SOURCE: Throat Throat COLLECTED: 07/23/22 18:57 ANTIBIOTICS AT [facility].: RECEIVED : 07/23/22 19:12 Culture, Throat FINAL 07/26/22 10:34 Cult,Throat: Oral thuy, negative for Group A Strep and other beta Cult,Throat: hemolytic streptococci Performed at [address] [address] ([phone] [facility] Comment on above: Performed By: #### C XTHR #### [facility] [address] [place] [id number] Culture, Throaton 04-11-2022 Culture, Throat ORDER#: [id number] ORDERED BY: JAG GARCIA SOURCE: Throat Throat COLLECTED: 04/11/22 19:02 ANTIBIOTICS AT [facility].: RECEIVED : 04/11/22 19:26 Culture, Throat FINAL 04/14/22 08:32 Cult,Throat: Oral thuy, negative for Group A Strep and other beta Cult,Throat: hemolytic streptococci Performed at [address] [address] ([phone] [facility] Comment on above: Performed By: #### C XTHR #### [facility] [address] [place] [id number] Coding Summary.on 01-30-2022 Coding Summary. CD:[id number] Gh0b Ww+PGhlYWQ+ZG0BZXRbY47yw ZFotT7FH9qGHJ8EJXYVBKTAK R8JUU3ioVM2OIhhK1HvlcCl VulufGRdPB31ZJz7XWD2nQdp CIcyoZ9xxRZqM2e9YeTsIH94 uG59ETjyMMQuVwH4JdShyfqo bWFy B4bmSkNteTBqOnm+PHRhYmxl IHdpZHRoPScxMDAlJyBzdHls DS1fZz9nNIRaAMRfjZeihAGd OiBj c6fjQVWfQUlnAO1tsLpxE6Xb qIA4WNNpu9p4Pq05wWR+PHRk YHC3fDjjODttu029JuSmr9mm IDM3 lFCaBDrbQZI7N78qa9S3TFAa QWFdPWS9gZM9oR3txEzdwbnf R3MsdQKdZgD3DWT9vIPabH0o bGln kperhV5dPvz+O25KRQ0WFIXF FI5REcr3Q0DvJxkcjQZ+PC90 YOXpRR76gVXiuWKip0werUy4 JzEw TUEgZVI3aFmkNFjuk6LdYUIj I05bdONgl9X6LXOhtUpztARj MrIecQT4pV5lNHbeziuly4ji dzsn Wkxpo9xkjl98eX23C59tRKjf GKEhKPO5TSWvISEdvUophd9k aB8lXd9+OVdoy8rkg3tqeIl1 IjIw NXZaydClcCyoORI8z8WuSc39 E0LuzMtxd1HxOyz3wv42vGLi c1I6tFY0CHfwZBJksN0kEAfs ZnQ6 NDNjJnTyqY57aLIxGBtzWl6s jFfmsPcyHX4dQFBnloicZNHm gA9aUNVtmVKsmFkyRV3rWZIw bjtm r883BuZiUBF3TEKvxCPrB1Nf kM3uTaWrTNLpAOMjZ3EfnJHd XSbyG983HQyxSiE3BBTgwkBm Y2Fs LWOlpEocQqT5i4R7Ng6Nq4Zh gxwdMRY0LVkhREL5MhQ7YpDc IgB5X8PzIki0WSNjdQcqPP8x J3Bh ERIabkldsulrdRZ2TSAzNTIl wE17sTKvEFogOq2lp0K9p607 RVGiQQFmwM00Ha0vgMefGUQx dCBU eE3oyjgtp0yiqxpjJiBsTMFy WOg2SKw8ZHBeyGgwUaVyXYR8 JkZ8DSI5cIOwiN3gpDnmbwnm dG9w Oyc+P03bzZ8qTZS2QXG2tmac EKLycbFzKE73AR25K4ZyKant dGFibGU+NDFrboXlxYyjYD0j YmFj u1cni2RgGTurE8PfWJIcFQbm Kek5JQCzNTC1gBB2fI9zCPYf NPjmv0R2nMY5R5LpasHqia8n b2xs QTIhFFshI29wfICpy9O0UAWf fUO0INIsqFwcQzHrwZ97Cyf+ NFJpvGnjf6VgUcfzt2xvd7xy dGg9 HhXuVUSyjsWrqJdsALV0c5Wb Hw43S19uDKesAXJxKTJiWVXn ENBhfNwpas7kyP3nOz7+PGNv bCB3 dEW8pY8xLYXwXiB2LKwpE719 ZiJwyJRxCxaic4rlg6zntKs6 ZfPiJPRlogCbdPrbUWI3v0Sl Lz48 N71bJNsdGYLiGYIzZSJrYUOx lOpzhk7heF9aLy5+BK4em9ho pw35kM60eFH+QELxCWR1qHnw PSdw HGTtzI1qADsdEtM0OZHmSyGo sN36rYEzVPruHe9tfWvisTlx TF0eSXWeioawj038DzYfj7uv IDEw lIZvYJshKPK7J85co0V3TSSt BPFcKTU4oHW8pC5qdZftjpkj bGVmdDsgdmVydGljYWwtYWxp Z246 IHRvcDsnPlBhdGllbnQgTmFt WHg7S5VxPma1VZNfiYtaWZ3i eJCnQVpwFu6uoHpqjPybQG2y NTBp knljw545YrCji0kcYADyzSCq BOztZSA5P19mp7W7YKReZDVw JPR9rNK9dX9yoPgooerqkLQx dDsg ukVveYiuKTawWDimE536GJSk rYayMyAgjlFxSCXriQA2KP75 WL77oZNkf3C3bNR2U8YvSAIp bmct tltfgGN7KEQuLOVbrZ92Vi9v pDcxXf7vWBMyLCN4IJPcaRMw P8LvnV5dZvDxUHFiWOKwQ0Yb eHQt PTqyA963EUzwSxJ1EEPyofPu M0FpEUAnyHlhIpD2v0H6Vl8S R0P8SH69IH04xGFvp6W2iNR0 J3Bh IILzibwcmlcgeYG8ZWYkKGDa sS51Zk3yrUpkTy8wVOCdOVV6 TSHabIKcB2PhsR5wRjTxKBUj MDAw N9GipUEcTKjyL514HEnbCtQ0 DDYcccUrQ7AfIZKqkRcyZfB5 o6J8Qw1OISr3DJ77ID85fUDq c3R5 wBQ6V9TiBZElrbcanxktwVF7 SJGqRKMysD16Mw9ucSzuYp2q NJEqSTO6DBDloMPkI1QpmA2z OiAj HMCsSVXuZ5XekKEmUYnpO569 IAjlRyZ3YVHzagZqX7LdQZMd fRdbNoA6n2Z9Xh8IKRVrFR42 IFR5 oUE1PS52PQ89L7AjAjmreOLi bGU+PHRhYmxlIHdpZHRoPScx JUFwGrSbqXivBJ2zIg8gQDAm LWNv pEgviENsGgJjf0orZEDmNRmp TZ4mrBuyQ5PncRS0NZXnd4o7 Yh49X70dS0OdlLA+PGNvbCB3 aWR0 fD4yKkPeRvK5OMfsE707ZgFp bKNoToars4ldm8qqgJr5ZtE8 XZBhahClxLwuDWF1m2ZdUg59 Y29s IHdpZHRoPSIxNSUiIHZhbGln dq4mrO2rQi6+QJShvMY1jJG9 jD7rKqQbDpF7LLnhY072LbSy cCIv Daqer8npv9fahBg3GfBxFRZn sjWumLelRMQ4h9WxFa92K5Pc hCbuu7HsRhe3dq82bXPqc5R2 bGU9 H0UgEZOqjtpbdHJkaNviMK9u PVYlwxexYJVhyK5oNPCzF5c8 BgUmDbR6JKccF7IdwhW4MGDd cHQg DUwrGHQ0X41un8U5EABuKJOw TUP9qPE0rI5bjHlajzxxsIEm nKbvhaVmeCegROsrJFiqS963 IHRv bAntACQrbE8gGJPltUVkaUxa JG0kKMQbkktzPfbEP99DDTYb IQGHVVGZXN72BP17pHPkq1L2 bGU9 H7JpCFTlbvxcbbaioQW3HSOe VMCfrW78lADbQWfaEz0ct9F4 p729KFEpFUVnhV51Il1jjTuh MTBw aAXVmE2dbwtnm4rnkoqjVjYm YCVyNLv2EXz6WTRllKadXrYb YVI8PxD0REG9sZYqmK3czRny bjog sD7gWtk+MDgvMjkvMjAwMDwv dGQ+HSOfLEA5mItcOAsoHGEc aZ3tUFJvX7p4XsLxSaY1ZQbl O3Bh CKCvefsjIt45vH5gBlHqHmN8 KRuaR2NaisB4BTAmlRTfFIvj GLH1J20ga8R0CUUjVZBfVIJ2 dGV4 dC2dbPsvnhhodCOspFewonEn tUjrEQzvRWywM567SAWuuJme ZzKxHRkeBSEhPJ59HT48yCGf c3R5 oZD7F2OoZUPgzzhiejvicOX2 SBQqUKQwpH56lBWgUNnfLb4i m5I3u568OVGiKYSgqE71Fc7g dDog UJUtgUUVmM2pmnzeu3edctme SfVbORSqRHy3EBi8ODOezYzw OfWjOJT3XqM7HIX6xRIzoL8s bGln tajfyS4kCgt+BmCpCTshSP69 HL53fUHpo2N3iSD4W8WyWKRj gsseynriiTM1WVQhNJSqgA14 cGFk XLuySd3zq1W7t757XXIdGNGp sE98Xg3khWgoYFEnnKTRyL7s bvwqn7vkkydcBbDqCOIbOYb2 ZXh0 QWNaqDnjReLyYSV9WaU4CKX7 xCAbdN8igMknsubniT0bPst+ UW7azuzpcuL9EE21BL27I1Yz Pjwv dGFibGU+PHRhYmxlIHdpZHRo IPohQPXjSnBihGivCD6uMk2g GWXpULGmzYbuiXWvRsLhh2kl YXBz FJisGJ9khJhyO8ZnoBY3DQYb y2h0Ag62V18mY0DwbJE+PGNv eXG5kCA3vJ9qHkAnMmW4QOeo Z249 OvEdfGLcAdgyz0mwn3cgnMk4 UtPtYCLsygZmlZurQGF1l9Pm Pk20W62sPXpcTHIjVSYdCJBb IHZh eIhmqd1ddH7lKf4+PGNvbCB3 mHJ7pD7lJmDlYeX1SLxzI401 UnQdjFTlLkyxY11cL3UwkGD+ PHRy Oxb4PGHyoXgeDL7zlPHdPKwh Bt5tGCT8EkBpVvGdYPdsC2Oo KXSqjcolldvhfOS9SRMxQSNh aW47 Pu9lqTriFp8nLSWpEZN3TFLk gPOuC1XxkW8kTkYkQPYmKMPb B0HuoVRlUMixE009VUikLlK1 IHZl vnBeS4RwEYCggZejSmC8f5R3 Ug8XnHczkUZpIJ2fLkVkUFc2 R6VrBdp0HBYtaDmlPU7bmEPd ZGlu Vv7nvKfqfKtxFE9gLCZwfeti f738ToGwp5epPCNthRJnGEgo OPB4P95bk4G2MUXuTSWsGVL3 dGV4 eH4kzHsrehiekXIhqSqzuwXl kNkuDSytICpxD418YKQqzKgf DiXFZkf4N7HlXuq0BQAyoLjw ZT0n jZQmODjwYu1itSlnhYsoAW5j GZBtihbrm888XtQfm4pnSSQj xAEeFJesXGW2A69mk9O9FIVl MDAw RSE5qKO9sN5zjMqvfistxBMo bHlxdgPdyRlmGQrdBLrtI145 SBBtzEynYr6GLtd2I0UlVap2 ZCBz kBffGF3jlIZoBNdpXj2wdMio jYegFW9tYLKxqqifd562UrZv w2vlJXYzjZBhRThvKPW4I97x b3I6 FXTlLSAqXXB4nEM8nZ0plLsz bjogbGVmdDsgdmVydGljYWwt DCqcF058PSFcrJbeZnHsvDXz Ojwv dGQ+KX80cl19O7MoTjulSlh0 CVSiVHN2kAD5fC8bIHYeKDlg u2N3zYV4B8VxixVkhj3jb9tf YXBz ZTog (more content not included)... Normal [facility] C Urineon 01-29-2022 Bacteria identified Cx [...] Locations R1: This test was performed at: [facility], [address] [place] [address], [address] , , [facility] Comment on above: Performed By: #### 2 [id number], [id number], [id number] ####[place] [address] [place] [address] ED Note-Physicianon 01-29-20 ED Note-Physician Basic Information [...] (mL): 1,000, (more content not included)... Normal [facility] Comment on above: Result Comment: Elec tronically Signed By: Brittni Carreon M.D.\.br\Date and Time Signed: 01/28/22 07:16 EDT\.br\Electronically Co-Signed By: Jes Montesinos PA-C\.br\Date and Time Co-Signed: 01/28/22 00:21 EDT Auto Diffon 01-27-2022 Basophils/100 WBC (Bld) 1.1 % Normal 0.0-2.0 [facility] Comment on above: Order Comment: Order Added by Discern Expert. Performed By: #### 2 342497, [id number], [id number], [id number] ####[facility] [address] [place] [address] Basophils/Leukocytes Auto (Bld) [Pure # fraction] 0.1 E9/L Normal 0.0-0.2 [facility] Comment on above: Order Comment: Order Added by Discern Expert. Performed By: #### 2 899181, [id number], 4200124, [id number] ####[place] [address] [place] [address] Eosinophils/100 WBC (Bld) 2.7 % Normal 0.0-8.0 [facility] Comment on above: Order Comment: Order Added by Discern Expert. Performed By: #### 2 340975, 62472189, 1115346, 1287421 ####[address] [address] Eosinophils/Leukocyte s Auto (Bld) [Pure # fraction] 0.3 E9/L Normal 0.0-0.5 [facility] Comment on above: Order Comment: Order Added by Discern Expert. Performed By: #### 2 707523, 01940092, 3424414, 8786073 ####[address] [address] Lymphocytes/100 WBC (Bld) 35.8 % Normal 14.0-50.0 [facility] Comment on above: Order Comment: Order Added by Discern Expert. Performed By: #### 2 211462, 68428209, 2871469, 0669950 ####[address] [address] Lymphocytes/Leukocyte s Auto (Bld) [Pure # fraction] 4.5 E9/L High 1.0-4.0 [facility] Comment on above: Order Comment: Order Added by Discern Expert. Performed By: #### 2 447251, 83868055, 7007655, 4712273 ####[address] [address] Monocytes/100 WBC (Bld) 9.4 % Normal 4.0-14.0 [facility] Comment on above: Order Comment: Order Added by Discern Expert. Performed By: #### 2 568159, 36076783, 1002586, 6543842 ####[address] [address] Monocytes/Leukocytes Auto (Bld) [Pure # fraction] 1.2 E9/L High 0.2-1.0 [facility] Comment on above: Order Comment: Order Added by Discern Expert. Performed By: #### 2 606106, 76731273, 6641822, 6659869 ####[place] [place] [place] [address] Neutrophils/100 WBC (Bld) 51.0 % Normal 36.0-75.0 [facility] Comment on above: Order Comment: Order Added by Discern Expert. Performed By: #### 2 234835, 75586988, 8109469, 4038929 ####[place] [place] [address] Neutrophils/Leukocyte s Auto (Bld) [Pure # fraction] 6.4 E9/L Normal 2.0-7.5 [facility] Comment on above: Order Comment: Order Added by Discern Expert. Performed By: #### 2 604658, [id number], 4377983, 7407063 ####[address] [address] CBC w/ Auto Diffon Erythrocyte distribution width (RBC) [Ratio] 13.7 % Normal 10.9-14.2 [facility] Comment on above: Performed By: #### 2 515569, 24585755, 2722622, 6552238 ####[address] [address] Hematocrit (Bld) [Volume fraction] 36.2 % Normal 34.0-46.0 [facility] Comment on above: Performed By: #### 2 464638, 12723317, 3036946, 7514635 ####[address] [address] Hemoglobin (Bld) [Mass/Vol] 11.5 g/dL Low 12.0-16.0 [facility] Comment on above: Performed By: #### 2 433209, 68747175, 3934095, 4827158 ####[address] [place] [place] [address] MCH (RBC) [Entitic mass] 28.6 pg Normal 27.0-34.0 [facility] Comment on above: Performed By: #### 2 962351, 06471601, 5199298, 0448453 ####[place] [address] MCHC (RBC) [Mass/Vol] 31.9 g/dL Normal 31.4-36.0 [facility] Comment on above: Performed By: #### 2 584047, 15240418, 0686609, 6168702 ####[place] [address] MCV (RBC) [Entitic vol] 89.7 fL Normal 80.0-100.0 [facility] Comment on above: Performed By: #### 2 316085, 50645526, 5533733, 0627382 ####[place] [address] Platelet mean volume (Bld) [Entitic vol] 9.4 fL Normal 6.4-10.8 [facility] Comment on above: Performed By: #### 2 690029, [id number], 4335285, [id number] ####[place] [id number] Platelets (Bld) [#/Vol] 296.0 E9/L Normal 150.0-500.0 [facility] Comment on above: Performed By: #### 2 175108, [id number], 2707739, 9687199 ####[place] [id number] RBC (Bld) [#/Vol] 4.0 E12/L Low 4.3-5.9 [facility] Comment on above: Performed By: #### 2 234941, [id number], 6855929, 5794924 ####[place] [id number] WBC corrected for nucl RBC Auto (Bld) [#/Vol] 12.5 E9/L High 4.0-11.0 [facility] Comment on above: Performed By: #### 2 881223, [id number], 1370227, 6096120 ####[facility] [address] [place] [address] CHEMISTRYOrdered By: SYSTEM SYSTEM on 01-27-2022 Albumin [...] 3.7 mmol/L Normal 3.5 - 5.3 mmol/L [facility] [place] Protein [Mass/Vol] 7.4 g/dL Normal 6.0 - 7.8 gm/dL [facility] [place]isol Sodium [Moles/Vol] 136 mmol/L Normal 135 - 145 mmol/L [facility] [place]isol Urea nitrogen [Mass/Vol] 15 mg/dL Normal 5 - 21 mg/dL [facility] [place]isol Urea nitrogen/Creatinine [Mass ratio] 21 mg/mg High 10 - 20 [facility] [place]isol CMPon 01-27-2022 Albumin [Mass/Vol] 4.0 g/dL Normal 3.3-5.0 [facility] Comment on above: Performed By: #### 2 [id number], [id number], [id number], [id number] ####[facility] [address] [place] [address] Albumin/Globulin (S) [Mass conc ratio] 1.2 Normal 1.1-2.2 [facility] Comment on above: Performed By: #### 2 859440, [id number], 2483706, [id number] ####[facility] [address] [place] [address] ALP [Catalytic activity/Vol] 55 Int._Unit/L Normal 21-98 [facility] Comment on above: Performed By: #### 2 162146, [id number], 2103221, [id number] ####[facility] [address] [place] [address] ALT No additional P-5'-P [Catalytic activity/Vol] 13 Int._Unit/L Normal 6-46 [facility] Comment on above: Performed By: #### 2 833945, [id number], 4002052, 8493760 ####[facility] [address] [place] [address] AST [Catalytic activity/Vol] 17 Int._Unit/L Normal 5-43 [facility] Comment on above: Performed By: #### 2 308764, [id number], 1789943, 9886541 ####[facility] [address] [place] [address] Bilirubin [Mass/Vol] 0.6 mg/dL Normal 0.0-1.1 [facility] Comment on above: Performed By: #### 2 382162, [id number], 2160353, 4919854 ####[facility] [address] [place] [address] Creatinine [Mass/Vol] 0.7 mg/dL Normal 0.5-1.3 [facility] Comment on above: Performed By: #### 2 839848, 81317549, 9322326, 2021500 ####[facility] [address] [place] [address] Globulin (S) [Mass/Vol] 3.4 g/dL Normal 1.4-4.0 [facility] Comment on above: Performed By: #### 2 721165, [id number], 2072123, 4519078 ####[facility] [address] [place] [address] Protein [Mass/Vol] 7.4 g/dL Normal 6.0-7.8 [facility] Comment on above: Performed By: #### 2 723291, 12154528, 2964381, 3851301 ####[facility] [address] [place] [address] Urea nitrogen [Mass/Vol] 15 mg/dL Normal 5-21 [facility] Comment on above: Performed By: #### 2 429352, 57127973, 4728821, 5992455 ####[facility] [address] [place] [address] Urea nitrogen/Creatinine [Mass ratio] 21 No Units High 10-20 [facility] Comment on above: Performed By: #### 2 370271, [id number], 3973575, 0674455 ####[facility] [address] [place] [address] Anion gap [Moles/Vol] 11 mmol/L Normal 6-16 [facility] Comment on above: Performed By: #### 2 094318, [id number], 4891928, [id number] ####[facility] [address] [place] [address] Calcium [Mass/Vol] 9.2 mg/dL Normal 8.9-11.1 [facility] Comment on above: Performed By: #### 2 864238, [id number], 5865846, 6360935 ####[facility] [address] [place] [address] Chloride [Moles/Vol] 106 mmol/L Normal 101-111 [facility] Comment on above: Performed By: #### 2 309549, 06966774, 9819582, 2940697 ####[facility] [address] [place] [place] [address] CO2 [Moles/Vol] 23 mmol/L Normal 21-31 [facility] Comment on above: Performed By: #### 2 005614, 11679981, 2534876, 4857765 ####[facility] [address] [place] [address] Glucose [Mass/Vol] 91 mg/dL Normal 55-199 [facility] Comment on above: Result Comment: If t his glucose result represents a fasting glucose, interpretation should refer to the following reference range: 55-99 mg/dL Performed By: #### 2 281042, 74500435, 9550698, 7151388 ####[facility] [address] [place] [address] Potassium [Moles/Vol] 3.7 mmol/L Normal 3.5-5.3 [facility] Comment on above: Performed By: #### 2 492583, 38221806, 8179796, 1181384 ####[facility] [address] [place] [address] Sodium [Moles/Vol] 136 mmol/L Normal 135-145 [facility] Comment on above: Performed By: #### 2 283368, 83490711, 0512421, 3054629 ####[facility] [address] [place] [address] Consent for Treatmenton Consent for Treatment [id number]#1.00CD: 127 Normal [facility] Discharge Instructionson Discharge Instructions [id number]#1.00CD:1 27 Normal [facility] ED Clinical Summaryon 2021 ED Clinical Summary (Inserted Image. Kristine ble to display) [address] [address] ED Clinical Summary Person Information Name: AIEME REDDY/New_Scott Age: 21 Years : 2000 Sex: Female Language: Honduran PCP: Britt Aguilar MD Marital Status: Single [...] 01/27/2022 19:10:22 01/27/2022 19:10:22 01/27/2022 19:10:22 ADDRESS: [address] [place] [phone] PHYS DOC NOTES: MEDICAL INFORMATION: Prescriptions Given: New Medications Printed Prescriptions nitrofurantoin (Macrobid 100 mg Cap) 1 Capsules By Mouth 2 times a day for 5 Days. Refills: 0. PATIENT EDUCATION INFORMATION: Instructions: Urinary Tract Infection, Adult, Whai-ng-Qwwb Follow up: With: Address: When: Ulysses VERDE, STEPHEN Gamble [address] [place] [address] In 3 days 01/30/2022 With: Address: When: Lauren VERDE, Britt [facility] [place] [address] In 3 days 01/30/2022 DIAGNOSIS: 1:UTI (urinary tract infection); 2:Headache Normal [facility] ED Note-Nursingon 01-27-2022 ED Note-Nursing seizure pads applied Normal [facility] ED Patient Education Noteon 01-27-2022 ED [...] these instructions at home: Medicines ? Take saea-moz-eywsmoe and prescription medicines only as told by [...] 11/26/2008 Document Revised: 05/28/2019 Document Reviewed: 12/18/2018 DEXMA Patient Education ? 2019 Contacts+. Normal [facility] ED Patient Summaryon 022 ED Patient Summary (Inserted Image. Kristine ble to display) [place] [address] Patient Discharge Instructions Person Information Name: AIMEE REDDY Age: 21 Years Arrival Date: 01/27/2022 16:00:57 Discharge Diagnosis: 1:UTI (urinary tract infection); 2:Headache Primary Care Physician: Britt Aguilar MD Provider Information Primary Provider: Brittni Carreon M.D. Advanced [employer] Turb[employer] Mechanical Engineer:Aurand PA-C, Jes E. The exam and treatment you received in the Emergency Department were for an urgent problem and are not intended as complete care. It is important that you follow up with a doctor, nurse practitioner, or physician?s commercial lending assistant for ongoing care. If your symptoms [...] With: Address: When: Ulysses VERDE, STEPHEN Gamble [address] [place] [address] In 3 days 01/30/2022 With: Address: When: Lauren VERDE, Britt [facility] [place] [address] In 3 days 01/30/2022 In the event that this physician does not participate in your insurance network, please consult with your insurance company to find a nearby participating provider. Patient Education Materials: Urinary Tract Infection, Adult, Lssw-yk-Parr A MESSAGE TO ALL PATIENTS REGARDING OPIOIDS PRESCRIPTION OPIOIDS: WHAT YOU NEED TO KNOW Prescription opioids can be used to help relieve gqgsdtcm-py-iwdieq pain and are often prescribed following a [...] struggling with (more content not included)... Normal [facility] HEMATOLOGYOrdered By: SYSTEM SYSTEM on 01-27-2022 Basophils/100 WBC (Bld) 1.1 % Normal 0.0 - 2.0 % [facility] [place] HemeAutoSS Basophils/Leukocytes Auto (Bld) [Pure # fraction] 0.1 E9/L Normal 0.0 - 0.2 E9/L [facility] [place] HemeAutoSS Eosinophils/100 WBC (Bld) 2.7 % Normal [...] 4.0 E12/L Low 4.3 - 5.9 E12/L [facility] [place] HemeAutoSS WBC corrected for nucl RBC Auto (Bld) [#/Vol] 12.5 E9/L High 4.0 - 11.0 E9/L [facility] [place] HemeAutoSS Monitor Recordon 01-27-2022 Monitor Record [id number]#[id number] :127 Normal [facility] SEROLOGYOrdered By: Cheryl brown on 01-27-2022 HCG.beta subunit (U) [Moles/Vol] Negative Normal [facility] [place] Man Sero U BetaHcg Qualon 01-27-2022 HCG.beta subunit (U) [Moles/Vol] Negative Normal [facility] Comment on above: Performed By: #### 2 0130697, 47999961, 0490472 ####[facility] [address] [place] [address] UA With Cult Reflexon 2021 Bacteria LM Ql (Urine sed) 3+ /HPF Abnormal Trace [facility] Comment on above: Performed By: #### 2 5321122, 00069581, 0502306 ####[facility] [address] [place] [address] Epithelial cells.squamous LM.HPF (Urine sed) [#/Area] 5-8 Normal 0-2 [facility] Comment on above: Performed By: #### 2 6722833, 18206680, 7262399 ####[facility] [address] [place] [address] [place].plasma/Lithiu m.RBC (Bld) [Mass ratio] 0-3 Normal 0-3 [facility] Comment on above: Performed By: #### 2 8620257, 38049410, 9770119 ####[facility] [address] [place] [address] WBC LM.HPF (Urine sed) [#/Area] 16-25 Abnormal 0-5 [facility] Comment on above: Performed By: #### 2 3446827, 45337595, 3682894 ####[facility] [address] [place] [address] Bilirubin Ql (U) Negative Normal Negative [facility] Comment on above: Performed By: #### 2 1039121, 31118940, 7294710 ####[facility] [address] [place] [address] Clarity (U) CLEAR Normal Clear [facility] Comment on above: Performed By: #### 2 5402032, 74993955, 5567545 ####[address] [address] Color (U) YELLOW Normal Yellow [facility] Comment on above: Performed By: #### 2 1174916, 71444184, 8876575 ####[address] [address] Glucose Test strip (U) [Mass/Vol] Negative Normal Negative [facility] Comment on above: Performed By: #### 2 3779847, 47946008, 9241034 ####[address] [address] Hemoglobin Ql (U) Negative Normal Negative [facility] Comment on above: Performed By: #### 2 9887969, 67711127, 9680013 ####[address] [address] Ketones (U) [Mass/Vol] Negative Normal Negative [facility] Comment on above: Performed By: #### 2 7927674, 70850696, 4080162 ####[address] [address] Nitrite Ql (U) Positive Abnormal Negative [facility] Comment on above: Performed By: #### 2 0029685, 72071138, 0046456 ####[address] [address] pH (U) 8.0 [pH] Invalid Interpretation Code 5.0-9.0 [facility] Comment on above: Performed By: #### 2 3997947, 31065226, 9446246 ####[facility] [place] [address] Protein (U) [Mass/Vol] Negative Normal Negative [facility] Comment on above: Performed By: #### 2 3444327, 79234024, 2456278 ####[facility] [address] [place] [address] Specific gravity (U) [Rel density] 1.015 Invalid Interpretation Code 1.005-1.030 [facility] Comment on above: Performed By: #### 2 7846454, 55269574, 8748122 ####[place] [address] Type of Urine collection method Random Urine Normal [facility] Comment on above: Performed By: #### 2 1518625, 61470008, 7554850 ####[place] [address] Urobilinogen Qn (U) 1.0 {Polina'U}/dL Normal 0.0-1.0 [facility] Comment on above: Performed By: #### 2 4859641, 64299610, 4366304 ####[place] [address] WBC Auto Ql (U) Negative Normal Negative [facility] Comment on above: Performed By: #### 2 8236755, 59446298, 5855858 ####[place] [address] URINALYSISOrdered By: Cheryl Hills on 01-27-2022 Bacteria [...] PM) Normal Negative [facility] UA Auto SS [place].plasma/Lithiu m.RBC (Bld) [Mass ratio] 0-3 /HPF Normal [...] Desc Random Urine (01/27/22 5:52 PM) Normal [facility] [place] [place] UA Auto SS Urobilinogen Qn (U) 1.4925494 {Polina'U}/dL Normal 0.0 - 1.0 EU/dL [facility] UA Auto SS WBC Auto Ql (U) Negative (01/27/22 5:52 PM) Normal Negative [facility] UA Auto SS WBC LM.HPF (Urine sed) [#/Area] 16-25 /HPF Invalid Interpretation Code 0-5/HPF [facility] UA Auto SS eGFRon 01-27-2022 GFR/1.73 sq M.predicted among blacks MDRD (S/P/Bld) [Vol rate/Area] mL/min/{1.73_m2} Normal >=59 [facility] Comment on above: Order Comment: Order added by Discern Expert. Result Comment: eGFR is race adjusted. AA=. Performed By: #### 2 301919, 09345781, 6201594, 9102531 ####[facility] [address] [place] [address] GFR/1.73 sq M.predicted among non-blacks MDRD (S/P/Bld) [Vol rate/Area] mL/min/{1.73_m2} Normal >=59 [facility] Comment on above: Order Comment: Order added by Discern Expert. Result Comment: [employer] [place] ammon kidney disease could be indicated at eGFR's of less than 60 mL/min/1.73m2. Kidney failure is indicated at less than 15 mL/min/1.73m2. Performed By: #### 2 557947, 87952619, 5810077, 9823284 ####[facility] [address] [place] [address] Coding Summary.on 01-04-2022 Coding Summary. CD:[id number] Gh0b Ww+PGhlYWQ+AM8IMZPgY07yy PEhxR0DF7oSCT1KGQNOHWZTJ P4HHV8bcBX4LNmiH9LtnhLz MesqqYUvZV50WMg4RKW8pHei INjdhP9htKEmO5r9VwRpVQ31 sF86LTwtQEHrGgG0XsKhvmca bWFy Z2qbVvIgdPNwVgu+PHRhYmxl IHdpZHRoPScxMDAlJyBzdHls TH9qOn3eJLJkAGXqqFhxzXUv OiBj z5bgPESdLYhuHU3skUnpW9Wt eVV8CLUep7y7Pf85xSN+PHRk KDP1tFvuFUzcs573PvTau4ke IDM3 eJNvKAamWDY9E14kl2I8GXCp MHGiCSR0wKV7gV5zvYuouzmx P0UiaTFsCaT4YGD3rWBexB1u bGln eplpdF2fEon+S66FTJ5JKBIX KN7BTvc8B5KdMheokGM+PC90 AUWkBK66hYRbqEFob6zraPd4 JzEw VYGiITR9wWmdSTnju7YqKLKm E90dvRCmy2C5IXCndUfymHWb IiVqmOV5oN1pURmvaqzxk3nb dzsn Irbtb0yjlr71uA68T76qAEjz ETLyWXI3VRSqLOHgdRqhce3y jP6iLg5+WAfbn0mrk8flwGf3 IjIw DYJpicBgsSxyDZM3u9GiAi59 O9RucFywf8EpOdg7ts51bGWl r4X8vKK5VFrxEYQagY5nDYki ZnQ6 YOKfLtTxpQ91gAPpIYrcQu8t vRwjsMopBB7bISGyiusiLSYa dJ2nMMZweKAzjWivCC5tYLRe bjtm u466LxNvLBR2IFVkcMXjY6Et fH7vAxWaQBHqSEDlG6GkpCWt QIpuZ828VKzxTjY5THPxioPn Y2Fs MGPxiXkfTnT3g8B0Iw4Ex9Fl ewnpTYG6KDojTWW8IyTzTuJu TmO7D8YiPsr5FUTnhLyzNG2c J3Bh BSZpxqwftqxefEW5UAXvQZVh hL08oQYrWQhtEb1zn2Z3b032 SMPiACYbeZ31Le1wjAiqXTVr dCBU yH2rprzfu3leosjbTuXeMWOm MDf8EGj4SNDetWgqVxEyTZD8 VgM8UIW2ePBdoS3rgToyuspj dG9w Oyc+X12djE8rAKL9JSZ3moar BWNiiuPmVC04HT48G4VuFioa dGFibGU+VFRanmCwoVfwVL2u YmFj t7uoy4IsXNxuP7ElYCWoVVis Psx0FXOsTMJ0rGQ1kX0dUXDc SKbmc8R4hRD3I5YzvlHhgp9k b2xs LVJxYAxrL09rlTAew3T3DHVt aPT8ZORelGfxRzYeqM73Zcr+ DUZzxTqmz7NvWuiqc1sds6rp dGg9 BpQwIKPbdoIhwLugNHM3r6Vb Ix79L68zZYoeFKYmKUTiKWBj CFXwnScyxc6qvK3gGg8+PGNv bCB3 fQM9zB0iQKSyWbQ4LNyzH261 BzRkwPUiIhqxc6fbe1iftZk6 SnPzVWJryiTenFyoSBU0f9Sx Lz48 W56uOEvfUSXvWNUgRFRxUPCi wMhszu6bvU1jGn6+JQ9hx8yv mn84fQ24bQR+DXWtVEQ4wEbm PSdw LQEcoR8kCZlvFqN8MZNwFxBp iG16hPTdVCjpHq6emLtrhBrt KJ3cDUFwwbsmu757AhYwu2kn IDEw eZSvKOboEXR7L14mf7Y0YFVn YRDdTAU1zOC0nE6llYefbhep bGVmdDsgdmVydGljYWwtYWxp Z246 IHRvcDsnPlBhdGllbnQgTmFt FEk2C0KzCdj5YDYveCfpXB7d rRHfBFdqOe2nuWzvqHqaZC0n NTBp awfnc245DoHwt7tyFIWbsGBb SUgoTFE0N38uy4X3PFZtAJTh FTE3iDS3gS5ywKvrmqcncJNy dDsg hhVqrSkaDWqtUUmqQ275FWJy rIemOmNqpoNrNRNvzMT8VB72 NR27rXOaa3E9tGS2O2WyIGFa bmct baxmzTL7ZPXtGZQhtB68Ab1e xIgnQs9yPKVqYVU6LWDzvCSo M7WmnC0bQuFaYCNgUUNcH2Oo eHQt YTmnQ311XSguYpP6DLAcqeFq P7TqLBSviHqkWgE1y5C8Zy0U P1Z6NI18SZ72gXJbn7Z5sFF8 J3Bh WARehmzgihhgsKV9NIIgCYAk aW97Iz7xmWfvNt0gFOLnGLC8 PVTspJMnY4EtdK0gLnFpCPQw MDAw O4XynFNyCAaeG868HIbeMdF6 FCKlbdGsB5HcMBUxiWapCqI8 e0E6Kq7BUEv6MI11UQ87vGBs c3R5 oJY2D6ZpOGWrxcjwayuozYV2 WYJvSAOwbS31Dm7hhRxfVr5j NFJrQZB6CNAmdUBwS7AsxT7s OiAj RCJkKAZpE2ZhmYByKVraS003 SQxnInN0IGLrsnIiA1JfSLYw rAyoHdT6r0C1Lw7RJNEcHV64 IFR5 xPV5IQ75BW16Y3YlWvuimSDx bGU+PHRhYmxlIHdpZHRoPScx YDAoFkAoaRkjLX2iHx7oRFAn LWNv pDlejAHgNbNla0cfCNVpPMol EB4ypVylM5NqrHK6SRAgg4x0 Qh56U48qI8KlrOM+PGNvbCB3 aWR0 iE4wZhMhYdC1VFicK288QuJh pUCzLmcgd8hsl1sqpGp7HjU5 OGFwacIiyEbeMNS1s0ZlAe79 Y29s IHdpZHRoPSIxNSUiIHZhbGln so9ycN2wAx6+RHUuaVC8gBO8 xQ0oVbHyEuO4YHcsQ046BeKt cCIv Orepj0meu8gcjLd9FpHmQTEr zoBreZdaKXA4g5QiEa82I2Zk pUsjt1YuRrx4aa05kMPen0P5 bGU9 C2NwMTWgtpcutTTlaHwaKF5a MQUtmomqUZYjvL4gXSGxP7r6 ZlHfQaV3IUliI2PicxJ8VHZm cHQg RKeoXOA1U42pp4I3KBGjSXFy EUK9aPY7vG3wkJqsaqqvmGDk oNvuroJgyUanRZnwJErvK709 IHRv fPvaBTYtzT2yKMZiuEZpaKoy SA4wIFWcenzpUbrCA64GMTEc DISJDXAMZU57KC14hNIzo9B8 bGU9 A7IvVGLybtgtloagvMN2CKCr CTBabQ77bHBhNLjcGn0zo4O1 i526MTZiVRDooV74Xo6cmQxq MTBw jESBoR8fckwlp0asllfmFfJb TRRvVGu9GNe6TAXehMqmGtBs UYO6BsI5IBX3mAIaiL7dsZtk bjog qM4dIpv+MDgvMjkvMjAwMDwv dGQ+DEWvYUF8zSpiOJnpNVIc kU8gYTRdJ3x3AdMaOhW0UCmc O3Bh TZGrbfsvXb92lB4pRoFzGkY9 HPmdT9EwsjH6GFOloQMiAWqz XUL1J99hg0C2RRMcYOJtMQC9 dGV4 jY3fuIzkkdkbnHUedYilxaNf wMpeISfxVZzcA510CZAfeXpp NgYkTCqrFGMmLU34NB92jWAx c3R5 wII7R7DwZKMatlllsqjzeUS9 NAJuRTUhsB08cFZcUZtgEt4h t1V3u729BFVgNVPhqH52Yw2q dDog GNHcnDEEfP6ndxirl8bdhvtn XtJtWGOdUCb4DJy7PDYsfNfb XxRpMVL1OhM3YDL1cCOvnP4j bGln elwnkY1fKwv+BsQoSJbrFP54 KP22nZZbz6J0aMI5L1VlHJYf epfnaxwsnUS9FBLhLVGvkB49 cGFk FKhaGc3vh9T9y979XZLsEWZm eM44Ep3poAmmNKRhzIDHyD4z aflme9tdlwdeSpHtUSWsEDl7 ZXh0 HKDqfLrvOiQhJID9GvV6OUX7 sVTzmO1ptOeyawypxH0dYgt+ SA2joowdvqT2PN33VR78G2Wh Pjwv dGFibGU+PHRhYmxlIHdpZHRo WKtaXYKoSyUezQseNI5nUo3k MCHaVUUwqQgbiJYrKeKot1oa YXBz FHyvSD4kxImzT4GgrHI8SQZn y1e5It46R91sR1DpuBD+PGNv hFQ4hML2mX8xKiXmZiE5YVfz Z249 DyWjxWZgIwbgf8mhl7daeUw8 SiAsZHFsmeCfbYphOZG3y6Bv Uk46H17qDUgzNDWuPHOaQTSn IHZh hLbwyn1vcH0aIn8+PGNvbCB3 eKA6eW3oEbBkEmV9JDtdX662 JgQvvJKiRjmuH96fG9JapCL+ PHRy Hmx5JRRpxGpdVG3apZCfFErn At3dPQB9ZuEfMvWxOCnxI8Ls IWRqsrnaixappGM9UCZzPPXx aW47 Do6mfEcjCm5zLYHfIDL8BGQb sWArU2XyeX3sFpAzNHVhOKWy Z8FgxMUtNFweE734PHtvEbT1 IHZl lxCoI1PdDPAkoDkkPoG0k5H5 Bp9VuCkeuHHfRU5nNpXqRFx7 P7RtXzg7FZHenAclEM7ghCYy ZGlu Oj9pbGmuuLeqQW2wRSLfodeh b003FkOqp4tnJXQliUFkHRzk TIN2C89kx0X7TLBpKBClRSU3 dGV4 oZ7pcJlyhpkeyYHvsTyzyfNm hBpmRStzKCotC082GLSbsUjb HhTQTnh4R2NgLtr9PHGfjUti ZT0n hRQbZNooVi7gzZttwXmnKV2b SDZkfwuzp950IsNhp2xeZAJx oSNvFCarSEJ1J03lq0D6JQKx MDAw BFL1qNI2oU8dxIncvsdkjQVb qWgnxaFueZsvLOgsMZzvW928 KWOslWbeSm4CXsg3S2RlQih8 ZCBz hTsqPG6vdCAgIPgjTp8xgGft dHpmPX6xWRFsuppuo521PlXm u5ubTMDejYGtHTfzBFR3E92p b3I6 GCDxVIYrLUX4zBY0hM8guFhq bjogbGVmdDsgdmVydGljYWwt FNzgT782CVSqvUqcOuYrpWLx Ojwv dGQ+XR31kt61N1LnLztvDfc2 AYBzWTC2wIQ0nR5uHAQuCTjq d5G0lOC3H7OhbvXxuk8gi7eh YXBz ZTog (more content not included)... Normal [facility] Discharge Instructionson Discharge Instructions [id number]#[id number] :127 Normal [facility] Auto Diffon 12-31-2021 Basophils/100 WBC (Bld) 1.0 % Normal 0.0-2.0 [facility] Comment on above: Order Comment: Order Added by Discern Expert. Performed By: #### 2 459700, 2556596, 9837832, 09145603, 0618276, 26424847, 92380341 ####[facility] [address] [place] [address] Basophils/Leukocytes Auto (Bld) [Pure # fraction] 0.1 E9/L Normal 0.0-0.2 [facility] Comment on above: Order Comment: Order Added by Discern Expert. Performed By: #### 2 256330, 6111782, 8431047, 90095744, 8881376, 82416990, 00177202 ####[facility] [address] [place] [address] Eosinophils/100 WBC (Bld) 4.0 % Normal 0.0-8.0 [facility] Comment on above: Order Comment: Order Added by Discern Expert. Performed By: #### 2 933712, 8784175, 8368588, 16093815, 3904081, 15507867, 77100788 ####[facility] [address] [place] [address] Eosinophils/Leukocyte s Auto (Bld) [Pure # fraction] 0.4 E9/L Normal 0.0-0.5 [facility] Comment on above: Order Comment: Order Added by Discern Expert. Performed By: #### 2 459165, 1436127, 6823084, 37553986, 5521896, 19553501, 10687036 ####[place] [address] [place] [address] Lymphocytes/100 WBC (Bld) 35.3 % Normal 14.0-50.0 [facility] Comment on above: Order Comment: Order Added by Discern Expert. Performed By: #### 2 779993, 4655623, 8634874, 83394132, 1385396, 66027697, 91387237 ####[place] [address] [place] [address] Lymphocytes/Leukocyte s Auto (Bld) [Pure # fraction] 3.8 E9/L Normal 1.0-4.0 [facility] Comment on above: Order Comment: Order Added by Discern Expert. Performed By: #### 2 454895, 0198281, 1814699, 40814738, 0104230, 86237034, 57466482 ####[place] [address] [place] [address] Monocytes/100 WBC (Bld) 9.3 % Normal 4.0-14.0 [facility] Comment on above: Order Comment: Order Added by Mckay Expert. Performed By: #### 2 378652, 0530104, 4145807, 53645853, 0973665, 19222186, 94530888 ####[place] [address] [place] [address] Monocytes/Leukocytes Auto (Bld) [Pure # fraction] 1.0 E9/L Normal 0.2-1.0 [facility] Comment on above: Order Comment: Order Added by Discern Expert. Performed By: #### 2 748496, 1779782, 3170982, 52253505, 2000660, 92593656, 38464119 ####[place] [address] [place] [address] Neutrophils/100 WBC (Bld) 50.4 % Normal 36.0-75.0 [facility] Comment on above: Order Comment: Order Added by Discern Expert. Performed By: #### 2 631450, 1350945, 1772778, 35196205, 8819263, 63463904, 58626301 ####[address] [address] Neutrophils/Leukocyte s Auto (Bld) [Pure # fraction] 5.4 E9/L Normal 2.0-7.5 [facility] Comment on above: Order Comment: Order Added by Discern Expert. Performed By: #### 2 225691, 4044391, 4359853, 63586751, 2813419, 90293339, 41310634 ####[place] [address] [place] [address] B hCG Qualon 12-31-2021 Beta hCG Ql Negative Normal [facility] Comment on above: Performed By: #### 2 294495, 2009651, 2674641, 39966708, 0848407, 06116929, 20678520 ####[facility] [address] [place] [address] BMPon 12-31-2021 Creatinine [Mass/Vol] 0.8 mg/dL Normal 0.5-1.3 [facility] Comment on above: Performed By: #### 2 130749, 8875663, 2954352, 13120037, 7156835, 06028319, 30598779 ####[address] [address] Urea nitrogen [Mass/Vol] 14 mg/dL Normal 5-21 [facility] Comment on above: Performed By: #### 2 961855, 4325867, 4858368, 88029192, 1076415, 75349537, 43047661 ####[facility] [address] [place] [address] Urea nitrogen/Creatinine [Mass ratio] 18 No Units Normal 10-20 [facility] Comment on above: Performed By: #### 2 162587, 3024802, 8009834, 75777103, 8509716, 09202181, 30192839 ####[facility] [address] [place] [address] Anion gap [Moles/Vol] 11 mmol/L Normal 6-16 [facility] Comment on above: Performed By: #### 2 646161, 4694650, 1686233, 39778141, 5501965, 12620472, 80844225 ####[facility] [address] [place] [address] Calcium [Mass/Vol] 9.5 mg/dL Normal 8.9-11.1 [facility] Comment on above: Performed By: #### 2 579001, 0154317, 3278221, 54040063, 9879589, 87458419, 00609973 ####[facility] [address] [place] [address] Chloride [Moles/Vol] 105 mmol/L Normal 101-111 [facility] Comment on above: Performed By: #### 2 267045, 7564076, 3139042, 21023772, 4512173, 22305855, 55177519 ####[facility] [address] [place] [place] [address] CO2 [Moles/Vol] 26 mmol/L Normal 21-31 [facility] Comment on above: Performed By: #### 2 276036, 8826666, 3304311, 73502462, 9994118, 27503585, 52709025 ####[facility] [address] [place] [address] Glucose [Mass/Vol] 81 mg/dL Normal 55-199 [facility] Comment on above: Result Comment: If t his glucose result represents a fasting glucose, interpretation should refer to the following reference range: 55-99 mg/dL Performed By: #### 2 075249, 9388619, 7998864, 02755602, 6559713, 54709747, 78426382 ####[facility] [address] [place] [address] Potassium [Moles/Vol] 3.7 mmol/L Normal 3.5-5.3 [facility] Comment on above: Performed By: #### 2 617256, 8953830, 8501814, 76909952, 7978165, 17884853, 39669193 ####[facility] [address] [place] [address] Sodium [Moles/Vol] 138 mmol/L Normal 135-145 [facility] Comment on above: Performed By: #### 2 085893, 4999856, 6707382, 20909691, 9651331, 72783959, 42301729 ####[facility] [address] [place] [address] CBC w/ Auto Diffon Erythrocyte distribution width (RBC) [Ratio] 13.7 % Normal 10.9-14.2 [facility] Comment on above: Performed By: #### 2 591376, 1377050, 9900614, 07614934, 8061154, 46321264, 11808284 ####[facility] [address] [place] [address] Hematocrit (Bld) [Volume fraction] 37.2 % Normal 34.0-46.0 [facility] Comment on above: Performed By: #### 2 010077, 5798989, 3236093, 69772790, 7491099, 84680232, 09930334 ####[facility] [address] [place] [address] Hemoglobin (Bld) [Mass/Vol] 12.4 g/dL Normal 12.0-16.0 [facility] Comment on above: Performed By: #### 2 397129, 9586229, 7983565, 12193146, 5297606, 85807951, 70300789 ####[facility] [address] [place] [address] MCH (RBC) [Entitic mass] 29.3 pg Normal 27.0-34.0 [facility] Comment on above: Performed By: #### 2 929915, 3057510, 1845154, 05012542, 9401259, 45810978, 71550029 ####[facility] [address] [place] [address] MCHC (RBC) [Mass/Vol] 33.4 g/dL Normal 31.4-36.0 [facility] Comment on above: Performed By: #### 2 928823, 0976086, 8551278, 11466118, 2860074, 81301740, 78331442 ####[address] [address] MCV (RBC) [Entitic vol] 87.8 fL Normal 80.0-100.0 [facility] Comment on above: Performed By: #### 2 860204, 6380428, 6553930, 32738594, 0541684, 86068002, 76418766 ####[address] [address] Platelet mean volume (Bld) [Entitic vol] 9.3 fL Normal 6.4-10.8 [facility] Comment on above: Performed By: #### 2 047858, 1144425, 1041550, 22258277, 4647236, 45417742, 34389742 ####[address] [address] Platelets (Bld) [#/Vol] 339.0 E9/L Normal 150.0-500.0 [facility] Comment on above: Performed By: #### 2 978402, 6916294, 0499322, 93929506, 5915966, 51551148, 69747909 ####[facility] [address] [place] [address] RBC (Bld) [#/Vol] 4.2 E12/L Low 4.3-5.9 [facility] Comment on above: Performed By: #### 2 445632, 7222812, 0518700, 38869268, 3888769, 32202491, 49675470 ####[facility] [address] [place] [address] WBC corrected for nucl RBC Auto (Bld) [#/Vol] 10.8 E9/L Normal 4.0-11.0 [facility] Comment on above: Performed By: #### 2 923945, 0058893, 2847586, 48374521, 0710421, 61193360, 37206072 ####[facility] [address] [place] [address] CHEMISTRYOrdered By: SYSTEM SYSTEM on 12-31-2021 Albumin [...] for Treatmenton 12-22 Consent for Treatment [id number]: 127 Normal [facility] ED Clinical Summaryon 2021 ED Clinical Summary (Inserted Image. Kristine ble to display) [address] [place] [address] ED Clinical Summary Person Information Name: AIMEE REDDY/NewKrish Age: 21 Years : 2000 Sex: Female Language: Honduran PCP: Britt Aguilar MD Marital Status: Single [...] 12/31/2021 19:45:50 12/31/2021 19:45:50 12/31/2021 19:45:50 ADDRESS: [address] [place] [id number] [facility] DOC NOTES: MEDICAL INFORMATION: Prescriptions Given: PATIENT EDUCATION INFORMATION: Instructions: Seizure, Adult, Rkhn-iz-Lwla Follow up: With: Address: When: Tye Arora [address] [place] [address] Business (1) In 3 days 01/03/2022 With: Address: When: Britt Aguilar [address] [place] [address] Business (1) In 3 days DIAGNOSIS: Recurrent episodes of unresponsiveness Normal [facility] ED Note-Physicianon 01-01-20 ED Note-Physician Basic [...] in nature and sent her to a funeral pre need consultant where she had a monitor and other [...] Arora In 3 days 01/03/2022 EDT [address] [place] [address]- Business (1) Additional Instructions: Britt Aguilar In [address] [place] [address]- Business (1) Additional Instructions: Patient Education Seizure, Adult, Xiqv-wk-Rmsk Problem List/Past Medical History Ongoing No qualifying [...] 18:51:00) Lymph Auto: 35.3 % (12/31/21 18:51:00) Charlotte Auto: 9.3 % (12/31/21 18:51:00) Eos Auto: 4 % (12/31/21 18:51:00) Basophil Auto: 1 % (12/31/21 18:51:00) Neutro Absolute: 5.4 E9/L (12/31/21 18:51:00) Lymph Absolute: 3.8 E9/L (12/31/21 18:51:00) Charlotte Absolute: 1 E9/L (12/31/21 18:51:00) Eos Absolute: [...] 18 (more content not included)... Normal [place] [facility] Comment on above: Result Comment: [...] these instructions at home: Medicines ? Take gcbi-rrx-cmhrila and prescription medicines only as told by [...] [place] ask your local DMV (department of [employer]) when you can drive. ? Get plenty [...] medicine f (more content not included)... Normal [facility] ED Patient Summaryon 022 ED Patient Summary (Inserted Image. Kristine ble to display) [address] [address] Patient Discharge Instructions Person Information Name: AIMEE REDDY Age: 21 Years Arrival Date: 12/31/2021 18:32:31 Discharge Diagnosis: Recurrent episodes of unresponsiveness Primary Care Physician: Britt Aguilar MD Provider Information Primary Provider: Ji Grimes DO Advanced Wind Turbine Mechanical Engineer:None The exam and treatment you received in the Emergency Department were for an urgent problem and are not intended as complete care. It is important that you follow up with a doctor, nurse practitioner, or physician?s commercial lending assistant for ongoing care. If your symptoms [...] Follow-up Instructions: With: Address: When: Tye Arora [address] [place] [address] [place] [address] Business (1) In 3 days 01/03/2022 With: Address: When: Britt Aguilar [place] [address] [email or web address] (1) In 3 days In the event that this physician does not participate in your insurance network, please consult with your insurance company to find a nearby participating provider. Patient Education Materials: Seizure, Adult, Imeh-zh-Hkuk A MESSAGE TO ALL PATIENTS REGARDING OPIOIDS PRESCRIPTION OPIOIDS: WHAT YOU NEED TO KNOW Prescription opioids can be used to help relieve lxwlsjnc-kn-uzzgbz pain and are often prescribed following a [...] tell your (more content not included)... Normal [facility] HEMATOLOGYOrdered By: SYSTEM SYSTEM on 12-31-2021 [...] Bilirubin.indirect [Mass or moles/Vol] UTC Abnormal 0.1-0.9 [facility] Comment on above: Result Comment: Resu lt verified by Discern Rule. Performed result UTC (Unable to Calculate) was sent as an Alpha code due the inability to calculate a valid numeric value. Performed By: #### 2 582951, 1046398, 2622373, 25716299, 2490498, 50838886, [id number] ####[facility] [address] [place] [address] Albumin [Mass/Vol] 4.2 g/dL Normal 3.3-5.0 [facility] Comment on above: Performed By: #### 2 940238, 4292751, 6763288, 47252776, 5796375, 44774657, 63889145 ####[facility] [address] [place] [address] Albumin/Globulin (S) [Mass conc ratio] 1.3 Normal 1.1-2.2 [facility] Comment on above: Performed By: #### 2 982718, 3562524, 5988245, 22783223, 6175359, 44524154, 48777904 ####[facility] [address] [place] [address] ALP [Catalytic activity/Vol] 59 Int._Unit/L Normal 21-98 [facility] Comment on above: Performed By: #### 2 272342, 2176337, 8683781, 00262699, 1023184, 18431205, 24249209 ####[address] [address] ALT No additional P-5'-P [Catalytic activity/Vol] 12 Int._Unit/L Normal 6-46 [facility] Comment on above: Performed By: #### 2 685878, 0733106, 9757962, 64781146, 9968849, 03972261, 24290311 ####[address] [address] AST [Catalytic activity/Vol] 16 Int._Unit/L Normal 5-43 [facility] Comment on above: Performed By: #### 2 480194, 0633512, 1096702, 85271422, 0688380, 74176175, 98755081 ####[facility] [address] [place] [address] Bilirubin [Mass/Vol] 0.5 mg/dL Normal 0.0-1.1 [facility] Comment on above: Performed By: #### 2 268902, 7887515, 0883969, 69421378, 5942468, 61892204, 01113777 ####[facility] [address] [place] [address] Bilirubin.direct [Mass/Vol] mg/dL Normal 0.1-0.4 [facility] Comment on above: Performed By: #### 2 543963, 6556355, 2611440, 95876810, 1295525, 01243505, 75884383 ####[facility] [address] [place] [address] Globulin (S) [Mass/Vol] 3.2 g/dL Normal 1.4-4.0 [facility] Comment on above: Performed By: #### 2 559715, 6650004, 0113355, 53498116, 6062599, 07632402, 13316405 ####[facility] [address] [place] [address] Protein [Mass/Vol] 7.4 g/dL Normal 6.0-7.8 [facility] Comment on above: Performed By: #### 2 775809, 0077538, 8186596, 84923388, 4768811, 71269284, 22929689 ####[facility] [address] [place] [address] SEROLOGYOrdered By: Lisbeth Corrigan lps on 12-31-2021 Beta hCG Ql Negative (12/31/21 6:51 PM) Normal [facility] [place] Sero Troponin 0 Hr.on 12-31-2021 Troponin I.cardiac [Mass/Vol] ng/mL Low 10.10-27.10 [facility] Comment on above: Result Comment: The 95% CI (Confidence Interval) PPV (Positive Predictive Value) for myocardial infarction in females is 38 pg/mL, in males 51 pg/mL. The results should be used in conjunction with clinical conditions of myocardial infarction. (Access High Sensitivity Troponin I Instructions For Use, Rohini Gómez, January 2018) Performed By: #### 2 545073, 0773968, 8919561, 72082875, 0115937, 63437130, 13998825 ####[facility] [address] [place] [address] UA With Cult Reflexon 2021 Bilirubin Ql (U) Negative Normal Negative [facility] Comment on above: Performed By: #### 1 1974558 ####[facility] [address] [place] [address] Clarity (U) CLEAR Normal Clear [facility] Comment on above: Performed By: #### 1 9520944 ####[facility] [address] [place] [address] Color (U) YELLOW Normal Yellow [facility] Comment on above: Performed By: #### 1 6210026 ####[facility] [address] [place] [address] Epithelial cells.squamous LM.HPF (Urine sed) [#/Area] 0-2 Normal 0-2 [facility] Comment on above: Performed By: #### 1 6144249 ####[facility] [address] [place] [address] Glucose Test strip (U) [Mass/Vol] Negative Normal Negative [facility] Comment on above: Performed By: #### 1 3919585 ####[facility] [address] [place] [address] Hemoglobin Ql (U) Negative Normal Negative [facility] Comment on above: Performed By: #### 1 1770046 ####[facility] [address] [place] [address] Ketones (U) [Mass/Vol] Negative Normal Negative [facility] Comment on above: Performed By: #### 1 5182293 ####[facility] [address] [place] [address] [place].plasma/Lithiu m.RBC (Bld) [Mass ratio] 0-3 Normal 0-3 [facility] Comment on above: Performed By: #### 1 0933594 ####[facility] [address] [place] [address] Nitrite Ql (U) Negative Normal Negative [facility] Comment on above: Performed By: #### 1 5163669 ####[facility] [address] [place] [address] pH (U) 6.0 [pH] Invalid Interpretation Code 5.0-9.0 [facility] Comment on above: Performed By: #### 1 1826759 ####[place] [address] Protein (U) [Mass/Vol] Negative Normal Negative [facility] Comment on above: Performed By: #### 1 6998560 ####[place] [address] Specific gravity (U) [Rel density] 1.015 Invalid Interpretation Code 1.005-1.030 [facility] Comment on above: Performed By: #### 1 5673567 ####[place] [address] Type of Urine collection method Clean Catch Normal [facility] Comment on above: Performed By: #### 1 5398822 ####[place] 87[address]157 Urobilinogen Qn (U) 0.2 {Polina'U}/dL Normal 0.0-1.0 [facility] Comment on above: Performed By: #### 1 9911248 ####[place] [address]157 WBC Auto Ql (U) Negative Normal Negative [facility] Comment on above: Performed By: #### 1 7369047 ####[place] [address] WBC LM.HPF (Urine sed) [#/Area] 0-5 Normal 0-5 [facility] Comment on above: Performed By: #### 1 2138320 ####[place] [address]157 URINALYSISOrdered By: Lisbeth quan on 12-31-2021 Bilirubin [...] PM) Normal Negative [facility] UA Auto SS [place].plasma/Lithiu m.RBC (Bld) [Mass ratio] 0-3 /HPF Normal [...] [facility] UA Auto SS Urobilinogen Qn (U) 0.1294441 {Polina'U}/dL Normal 0.0 - 1.0 EU/dL [facility] UA Auto SS WBC Auto Ql (U) Negative (12/31/21 7:14 PM) Normal Negative [facility] UA Auto SS WBC LM.HPF (Urine sed) [#/Area] 0-5 /HPF Normal 0-5/HPF [facility] UA Auto SS eGFRon 12-31-2021 GFR/1.73 sq M.predicted among blacks MDRD (S/P/Bld) [Vol rate/Area] mL/min/{1.73_m2} Normal >=59 [facility] Comment on above: Order Comment: Order added by Discern Expert. Result Comment: eGFR is race adjusted. AA=. Performed By: #### 2 083400, 4316191, 1367416, 56439849, 9054017, 02410428, 35871654 ####[facility] [address] [place] [address] GFR/1.73 sq M.predicted among non-blacks MDRD (S/P/Bld) [Vol rate/Area] mL/min/{1.73_m2} Normal >=59 [facility] Comment on above: Order Comment: Order added by Discern Expert. Result Comment: Gas [employer] [place] ammon kidney disease could be indicated at eGFR's of less than 60 mL/min/1.73m2. Kidney failure is indicated at less than 15 mL/min/1.73m2. Performed By: #### 2 245392, 7906528, 6247889, 71963845, 6412526, 82603877, 80124611 ####[facility] [address] [place] [address] CBCon 11-06-2020 Erythrocyte distribution width (RBC) [Ratio] 13.1 % Normal 11.5 - 14.5 [facility] Comment on above: Performed By: #### C BC #### [address] [id number] Hematocrit (Bld) [Volume fraction] 36.6 % Normal 36.0 - 46.0 [facility] Comment on above: Performed By: #### C BC #### [address] [id number] Hemoglobin (Bld) [Mass/Vol] 11.9 g/dL Low 12.0 - 16.0 [facility] Comment on above: Performed By: #### C BC #### [address] [id number] MCHC (RBC) [Mass/Vol] 32.5 g/dL Normal 32.0 - 36.0 [facility] Comment on above: Performed By: #### C BC #### [address] [id number] MCV (RBC) [Entitic vol] 92 fL Normal 80 - 100 [facility] Comment on above: Performed By: #### C BC #### [address] [id number] RBC 4.00 x10E12/L Normal 4.00 - 5.20 [facility] Comment on above: Performed By: #### C BC #### [address] [id number] WBC (Bld) [#/Vol] 14.4 10*3/uL High 4.4 - 11.3 [facility] Comment on above: Performed By: #### C BC #### [address] [id number] Platelets (Bld) [#/Vol] 368 10*3/uL Normal 150 - 450 [facility] Comment on above: Performed By: #### C BC #### [address] [id number] COMPREHENSIVE PANELon 2020 Albumin [Mass/Vol] 4.4 g/dL Normal 3.4 - 5.0 [facility] Comment on above: Performed By: #### C MP #### [address] [id number] ALP [Catalytic activity/Vol] 69 U/L Normal 33 - 110 [facility] Comment on above: Performed By: #### C MP #### [address] [id number] ALT [Catalytic activity/Vol] 10 U/L Normal 7 - 45 [facility] Comment on above: Result Comment: Radha ents treated with Sulfasalazine may generate falsely decreased results for ALT. Performed By: #### C MP #### [address] [id number] Anion gap [Moles/Vol] 12 mmol/L Normal 10 - 20 [facility] Comment on above: Performed By: #### C MP #### [address] [id number] AST [Catalytic activity/Vol] 13 U/L Normal 9 - 39 [facility] Comment on above: Performed By: #### C MP #### [address] [id number] Bilirubin [Mass/Vol] 0.4 mg/dL Normal 0.0 - 1.2 [facility] Comment on above: Performed By: #### C MP #### [address] [id number] Calcium [Mass/Vol] 9.5 mg/dL Normal 8.6 - 10.3 [facility] Comment on above: Performed By: #### C MP #### [address] [id number] Chloride [Moles/Vol] 104 mmol/L Normal 98 - 107 [facility] Comment on above: Performed By: #### C MP #### [address] [id number] Creatinine [Mass/Vol] 0.54 mg/dL Normal 0.50 - 1.05 [facility] Comment on above: Performed By: #### C MP #### [address] [id number] GFR- AM. >60 Normal >60 [facility] Comment on above: Result Comment: CALC ULATIONS OF ESTIMATED GFR ARE PERFORMED USING THE MDRD STUDY EQUATION FOR THE IDMS-TRACEABLE CREATININE METHODS. CLIN CHEM 2007;53:766-72 Performed By: #### C MP #### [address] [id number] GFR-NON AM. >60 Normal >60 [facility] Comment on above: Performed By: #### C MP #### [address] [id number] Glucose [Mass/Vol] 89 mg/dL Normal 74 - 99 [facility] Comment on above: Performed By: #### C MP #### [address] [id number] HCO3 (Bld) [Moles/Vol] 25 mmol/L Normal 21 - 32 [facility] Comment on above: Performed By: #### C MP #### [address] [id number] Potassium [Moles/Vol] 3.3 mmol/L Low 3.5 - 5.3 [facility] Comment on above: Performed By: #### C MP #### [address] [id number] Protein [Mass/Vol] 7.2 g/dL Normal 6.4 - 8.2 [facility] Comment on above: Performed By: #### C MP #### [address] [id number] Sodium [Moles/Vol] 138 mmol/L Normal 136 - 145 [facility] Comment on above: Performed By: #### C MP #### [address] [id number] Urea nitrogen [Mass/Vol] 13 mg/dL Normal 6 - 23 [facility] Comment on above: Performed By: #### C MP #### [address] [id number] HCG,URINEon 11-06-2020 Beta HCG ( test) Ql (U) Negative Normal Negative [facility] Comment on above: Performed By: #### H CGU #### [address] [id number] LIPASEon 11-06-2020 Lipase [Catalytic activity/Vol] 19 U/L Normal 9 - 82 [facility] Comment on above: Result Comment: Adriana puncture immediately after or during the administration of Metamizole may lead to falsely low results. Testing should be performed immediately prior to Metamizole dosing. H-fmqkgg-t-benzoquinone imine (metabolite of Acetaminophen) will generate erroneously low results in samples for patients that have taken toxic doses of acetaminophen. Performed By: #### L IPAS #### [address] [id number] Provider Note - ED v2on 05- Provider [...] Description:NONE PER PT Past Surgical History Description:SPLENECTOMY 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: Is : no(1) Is : no(1) REVIEW [...] Reference Range: STRAW,YELLOW Appearance, Urine CLEAR Specific Carmine, Urine 1.005 pH, Urine 6.0 Protein, Urine NEGATIVE Glucose, Urine NEGATIVE Blood, Urine NEGATIVE Ketones, Urine 5 (TRACE) A Bilirubin, Urine NEGATIVE Urobilinogen, Urine <2.0 Nitrite, Urine NEGATIVE Leukocyte Esterase, Urine NEGATIVE VITAL SIGNS: T PRBP SpO2O2(LPM) %FiO2 Method 06-Nov-2020 00:56:[id number] 98 05-Nov-2020 22:42:00-36.25368071/70 100 room air, no respiratory support PHYSICAL [...] clear. CARDIOVASCULAR: (more content not included)... Normal [facility] Triage - EDon 11-06-2020 Triage - ED [...] Accompanied By: self Language: Spoken Language Preferred: Honduran Reading Language Preferred: Honduran Machine Programmer Requested: no welder assistant was requested CHIEF COMPLAINT AIMEE REDDY is [...] BMI (kg/m2): 18.934 Calculated BSA (m2) 1.50 [place] Coma Scale: Best Eye Response: (E4) spontaneous [...] 22:49 by Joel Singer (CLIN COOR) Normal [facility] URINALYSIS WITH CULTURE IF I NDICATEDon 11-06-2020 Appearance (U) CLEAR Normal CLEAR [facility] Comment on above: Performed By: #### U ARFX #### [address] [id number] Bilirubin Ql (U) Negative Normal NEGATIVE [facility] Comment on above: Performed By: #### U ARFX #### [address] [id number] Color (U) COLORLESS Normal STRAW,YELLOW [facility] Comment on above: Performed By: #### U ARFX #### [address] [id number] Glucose Ql (U) Negative Normal NEGATIVE [facility] Comment on above: Performed By: #### U ARFX #### [address] [id number] Hemoglobin Ql (U) Negative Normal NEGATIVE [facility] Comment on above: Performed By: #### U ARFX #### [address] [id number] Ketones Ql (U) 5 (TRACE) Abnormal NEGATIVE [facility] Comment on above: Performed By: #### U ARFX #### [address] [id number] Leukocyte esterase Test strip Ql (U) Negative Normal NEGATIVE [facility] Comment on above: Performed By: #### U ARFX #### [address] [id number] Nitrite Ql (U) Negative Normal NEGATIVE [facility] Comment on above: Performed By: #### U ARFX #### [address] [id number] pH (U) 6.0 [pH] Normal 5.0 - 8.0 [facility] Comment on above: Performed By: #### U ARFX #### [address] [id number] Protein Ql (U) Negative Normal NEGATIVE [facility] Comment on above: Performed By: #### U ARFX #### [address] [id number] Specific gravity (U) [Rel density] 1.005 Normal 1.005 - 1.035 [facility] Comment on above: Performed By: #### U ARFX #### [facility] [address] [place], [place] [id number] Urobilinogen (U) [Mass/Vol] mg/dL Normal 0.0 - 1.9 [facility] Comment on above: Performed By: #### U ARFX #### [facility] [address] [place], [place] [id number] BUNon 02-05-2020 Urea nitrogen [Mass/Vol] 11 mg/dL 8 - 25 mg/dL [facility] Creatinine, serumon 02-05-20 20 Creatinine [Mass/Vol] 0.54 mg/dL 0.40 - 1.10 [facility] GFR/1.73 sq M predicted among non-blacks MDRD (S/P/Bld) [Vol rate/Area] The eGFR should be used for monitoring renal function only and not for medication dosing. [facility] GFR/1.73 sq M.predicted CKD-EPI (S/P/Bld) [Vol rate/Area] 137 >=60 mL/min/1.73 m2 [facility] Otheron 02-05-2020 Interpretation and review of laboratory results Normal [facility] TSH with Reflex Free T4on Interpretation and review of laboratory results Normal [facility] TSH Qn 1.16 m[IU]/L [facility] CBC WITH AUTO DIFFERENTIALon 12-23-2019 Basophils (Bld) [#/Vol] 0.10 10*3/uL [facility] Basophils/100 WBC (Bld) 0.9 % [facility] Eosinophils (Bld) [#/Vol] 0.91 10*3/uL High [facility] Eosinophils/100 WBC (Bld) 8.6 % [facility] Erythrocyte distribution width (RBC) [Entitic vol] 13.9 % 11.6 - 14.8 % [facility] Hematocrit (Bld) [Volume fraction] 43.3 % 36 - 46 % [facility] Hemoglobin (Bld) [Mass/Vol] 13.7 g/dL 12 - 16 g/dL [facility] Immature granulocytes (Bld) [#/Vol] 0.03 10*3/uL [facility] Immature granulocytes/100 WBC (Bld) 0.30 % [facility] Comment on above: The IG parameter is the percentage of metamyelocytes, myelocytes and promyelocytes. An immature granulocyte count (IG) of 1% or more suggests the possibility of infection, an IG count of 3% is very likely related to an infection. Lymphocytes (Bld) [#/Vol] 4.19 10*3/uL High [facility] Lymphocytes/100 WBC (Bld) 39.8 % [facility] MCH (RBC) [Entitic mass] 29.4 pg 26 - 34 pg [facility] MCHC (RBC) [Mass/Vol] 31.6 g/dL 31 - 37 g/dL [facility] MCV (RBC) [Entitic vol] 92.9 fL 80 - 100 fL [facility] Monocytes (Bld) [#/Vol] 1.22 10*3/uL High [facility] Monocytes/100 WBC (Bld) 11.6 % [facility] Neutrophils (Bld) [#/Vol] 4.08 10*3/uL [facility] Neutrophils/100 WBC (Bld) 38.8 % [facility] Nucleated RBC (Bld) [#/Vol] 0.00 10*3/uL [facility] Nucleated RBC/100 WBC (Bld) [Ratio] 0.0 % [facility] Platelet mean volume (Bld) [Entitic vol] 10.9 fL 9.4 - 12.4 fL [facility] Platelets (Bld) [#/Vol] 411 10*3/uL High [facility] RBC (Bld) [#/Vol] 4.66 10*6/uL [facility] ealth WBC (Bld) [#/Vol] 10.53 10*3/uL [facility] Calcium Levelon 12-23-2019 Calcium [Mass/Vol] 9.4 mg/dL 8.4 - 10. 2 mg/dL [facility] Chem 7on 12-23-2019 Anion gap [Moles/Vol] 10 mmol/L 10 - 2 0 mmol/L [facility] Chloride [Moles/Vol] 110 mmol/L High 98 - 10 8 mmol/L [facility] Creatinine [Mass/Vol] 0.66 mg/dL 0.40 - 1.10 [facility] GFR/1.73 sq M predicted among non-blacks MDRD (S/P/Bld) [Vol rate/Area] The eGFR should be used for monitoring renal function only and not for medication dosing. [facility] GFR/1.73 sq M.predicted CKD-EPI (S/P/Bld) [Vol rate/Area] 128 >=60 mL/min/1.73 m2 [facility] Glucose [Mass/Vol] 75 mg/dL 65 - 99 mg/dL [facility] HCO3 [Moles/Vol] 23 mmol/L 21 - 32 mmol/L [facility] Potassium [Moles/Vol] 4.2 mmol/L 3.5 - 5.1 mmol/L [facility] Comment on above: moderate hemolysis, result may be falsely increased. Sodium [Moles/Vol] 139 mmol/L 135 - 145 mmol/L [facility] Urea nitrogen [Mass/Vol] 14 mg/dL 8 - 25 mg/dL [facility] Urea nitrogen/Creatinine [Mass ratio] 21.2 mg/mg High [facility] Magnesium Levelon 12-23-2019 Magnesium [Mass/Vol] 2.4 mg/dL 1.6 - 2 .4 mg/dL [facility] Comment on above: moderate hemolysis, result may be falsely increased. Otheron 12-23-2019 Interpretation and review of laboratory results Normal [facility] Interpretation and review of laboratory results Abnormal [facility] URINALYSISon 12-23-2019 Bacteria Auto Ql (U) None Seen None Se en /hpf [facility] Bilirubin Ql (U) Negative Negative [facility] Clarity Refractometry automated (U) Clear Clear [facility] Color (U) Yellow Colorless, Yellow [facility] Epithelial cells.squamous Auto (Urine sed) [#/Area] <1 [facility] Glucose Auto test strip (U) [Mass/Vol] Negative Negative mg/dL [facility] Hemoglobin Auto test strip Ql (U) Negative Negative [facility] Interpretation and review of laboratory results Abnormal [facility] Ketones (U) [Mass/Vol] Negative Negative mg/dL [facility] Leukocyte esterase Auto test strip Ql (U) Negative Negative [facility] Mucus Auto (Urine sed) [#/Area] Many Abnormal None Seen, Rare /lpf [facility] Nitrite Auto test strip Ql (U) Negative Negative [facility] pH (U) 6.0 [pH] [facility] Protein (U) [Mass/Vol] 30 Abnormal Negative mg/dL [facility] Comment on above: False positive resul ts may occur in urines with large amounts of hemoglobin, pH greater than 8.0, contrast medium, or disinfectants including ammonium compounds. RBC Auto (Urine sed) [#/Area] 2 [facility] Specific gravity (U) [Rel density] 1.028 High [facility] Urobilinogen (U) [Mass/Vol] <2.0 <2.0 mg/dL [facility] WBC Auto (Urine sed) [#/Area] <1 [facility] Microscopic examinat ion is performed on all urinalysis samples and only positive findings are reported. The test for blood on the chemical analytic portion of urinalysis may also be positive due to hemoglobinuria and myoglobinuria and if red blood cells are present they are quantified by microscopic examination. [facility] Urine Pregnancyon 12-23-2019 HCG ( test) Ql (U) Negative Negative [facility] Interpretation and review of laboratory results Normal [facility] CBCon 12-16-2019 Erythrocyte distribution width (RBC) [Ratio] 13.6 % 11.5 - 14.5 % [place] Hematocrit (Bld) [Volume fraction] 39.8 % 37 - 47 % [place] Hemoglobin (Bld) [Mass/Vol] 12.9 g/dL 12 - 16 g/dL [place] MCH (RBC) [Entitic mass] 30.3 pg 27 - 31.3 pg [place] MCHC (RBC) [Mass/Vol] 32.3 % Low 33 - 37 % [place] MCV (RBC) [Entitic vol] 93.9 fL 82 - 100 fL [place] Platelets (Bld) [#/Vol] 355 10*3/uL 130 - 400 K/uL [place] RBC (Bld) [#/Vol] 4.24 10*6/uL [place] WBC (Bld) [#/Vol] 15.9 10*3/uL High 4.5 - 11 K/uL [place] CBC With Platelet No Differe ntialon 12-16-2019 Erythrocyte distribution width (RBC) [Ratio] 13.6 % Normal 11.5-14.5 [facility] Comment on above: Performed By: #### C BCND #### [facility] [address] [place] [address] Hematocrit (Bld) [Volume fraction] 39.8 % Normal 37.0-47.0 [facility] Comment on above: Performed By: #### C BCND #### [facility] [address] [place] [address] Hemoglobin (Bld) [Mass/Vol] 12.9 g/dL Normal 12.0-16.0 [facility] Comment on above: Performed By: #### C BCND #### [facility] [address] [place] [address] MCH (RBC) [Entitic mass] 30.3 pg Normal 27.0-31.3 [facility] Comment on above: Performed By: #### C BCND #### [facility] [address] [place] [address] MCHC (RBC) [Mass/Vol] 32.3 % Low 33.0-37.0 [facility] Comment on above: Performed By: #### C BCND #### [facility] [address] [place] [address] MCV (RBC) [Entitic vol] 93.9 fL Normal 82.0-100.0 [facility] Comment on above: Performed By: #### C BCND #### [facility] [address] [place] [address] Platelets (Bld) [#/Vol] 355 10*3/uL Normal 130-400 [facility] Comment on above: Performed By: #### C BCND #### [facility] [address] [place] [address] RBC (Bld) [#/Vol] 4.24 10*6/uL Normal 4.20-5.40 [facility] Comment on above: Performed By: #### C BCND #### [facility] [address] [place] [address] WBC (Bld) [#/Vol] 15.9 10*3/uL Critically high 4.5-11.0 [facility] Comment on above: Performed By: #### C BCND #### [facility] [address] [place] [address] CT HEAD WO CONTRASTon 2019 CT HEAD [...] Aidan Rosario MD 12/17/19 Final result Normal [facility] Comprehensive Metabolic Pane elyse 12-16-2019 Albumin [Mass/Vol] 5.0 g/dL Critically high 3.5-4.6 [facility] Comment on above: Performed By: #### C MP #### [facility] [address] [place] [address] ALP [Catalytic activity/Vol] 89 U/L Normal 40-130 [place] Comment on above: Performed By: #### C MP #### [facility] [address] [place] [address] ALT [Catalytic activity/Vol] 9 U/L Normal 0-33 [place] Comment on above: Performed By: #### C MP #### [facility] [address] [place] [address] Anion gap [Moles/Vol] 12 mmol/L Normal 9-15 [place] Comment on above: Performed By: #### C MP #### [facility] [address] [place] [address] AST [Catalytic activity/Vol] 22 U/L Normal 0-35 [place] Comment on above: Performed By: #### C MP #### [facility] [address] [place] [address] Bilirubin [Mass/Vol] 0.6 mg/dL Normal 0.2-0.7 [facility] Comment on above: Performed By: #### C MP #### [facility] [address] [place] [address] Calcium [Mass/Vol] 9.7 mg/dL Normal 8.5-9.9 [place] Comment on above: Performed By: #### C MP #### [facility] [address] [facility] [address] Chloride [Moles/Vol] 104 mmol/L Normal 95-107 [place] Comment on above: Performed By: #### C MP #### [facility] [address] [place] [address] CO2 [Moles/Vol] 23 mmol/L Normal 20-31 [place], [place] Comment on above: Performed By: #### C MP #### [facility] [address] [place] [address] Creatinine [Mass/Vol] 0.48 mg/dL Low 0.50-0.90 [place] Comment on above: Performed By: #### C MP #### [facility] [address] [place] [address] GFR/1.73 sq M predicted among blacks MDRD (S/P/Bld) [Vol rate/Area] mL/min/{1.73_m2} Normal >60 [facility] Comment on above: Result Comment: >60 mL/min/1.73m2 EGFR, calc. for ages 18 and older using the MDRD formula (not corrected for weight), is valid for stable renal function. Performed By: #### C MP #### [facility] [address] [place] [address] GFR/1.73 sq M.predicted MDRD (S/P/Bld) [Vol rate/Area] mL/min/{1.73_m2} Normal >60 [facility] Comment on above: Result Comment: >60 mL/min/1.73m2 EGFR, calc. for ages 18 and older using the MDRD formula (not corrected for weight), is valid for stable renal function. Performed By: #### C MP #### [facility] [address] [place] [address] Globulin (S) [Mass/Vol] 3.4 g/dL Normal 2.3-3.5 [place] Comment on above: Performed By: #### C MP #### [facility] [address] [place] [address] Glucose [Mass/Vol] 104 mg/dL Critically high 70-99 [place], [place] Comment on above: Performed By: #### C MP #### [facility] [address] [place] [address] Potassium [Moles/Vol] 3.8 mmol/L Normal 3.4-4.9 [place] Comment on above: Performed By: #### C MP #### [facility] [address] [place] [address] Protein [Mass/Vol] 8.4 g/dL Critically high 6.3-8.0 [place] Comment on above: Performed By: #### C MP #### [facility] [address] [place] [address] Sodium [Moles/Vol] 139 mmol/L Normal 135-144 [place] Comment on above: Performed By: #### C MP #### [facility] [address] [place] [address] Urea nitrogen [Mass/Vol] 15 mg/dL Normal 6-20 [place] Comment on above: Performed By: #### C MP #### [facility] [address] [facility] [address] Albumin [Mass/Vol] 5 g/dL High 3.5 - 4.6 g/dL [place] Bilirubin Ql (U) 0.6 mg/dL 0.2 - 0.7 mg/dL [place] GFR >60.0 >60 [place] Comment on above: >60 mL/min/1.73m2 EG FR, calc. for ages 18 and older using the MDRD formula (not corrected for weight), is valid for stable renal function. GFR Non- >60.0 >60 [place] Comment on above: >60 mL/min/1.73m2 EG FR, calc. for ages 18 and older using the MDRD formula (not corrected for weight), is valid for stable renal function. Otheron 12-16-2019 Interpretation and review of laboratory results Abnormal [place] , Urineon 0 Beta HCG ( test) Ql (U) Negative Detects HCG level >20 MIU/mL [place] UR HCG Qualitativeon 020 Beta HCG ( test) Ql (U) Negative Normal Detects HC [facility] Comment on above: Performed By: #### U HCG #### [facility] [address] [facility] [address] Urinalysis, reflex to cultur reta 12-16-2019 Bilirubin Ql (U) Negative Normal Negative [facility] Comment on above: Performed By: #### U AR #### [facility] [address] [facility] [address] Clarity (U) Clear Normal Clear [facility] Comment on above: Performed By: #### U AR #### [facility] [address] [facility] [address] Color (U) Yellow Normal Straw/[place] [facility] Comment on above: Performed By: #### U AR #### [facility] [address] [facility] [address] Glucose Ql (U) Negative Normal Negative [facility] Comment on above: Performed By: #### U AR #### [facility] [address] [place] [address] Hemoglobin Ql (U) Negative Normal Negative [facility] Comment on above: Performed By: #### U AR #### [facility] [address] [place] [address] Ketones Ql (U) 40 mg/dL Abnormal Negative [facility] Comment on above: Performed By: #### U AR #### [facility] [address] [place] [address] Leukocyte esterase Test strip Ql (U) Negative Normal Negative [facility] Comment on above: Performed By: #### U AR #### [facility] [address] [place] [address] Nitrite Ql (U) Negative Normal Negative [facility] Comment on above: Performed By: #### U AR #### [facility] [address] [place] [address] pH (U) 7.0 [pH] Normal 5.0-9.0 [facility] Comment on above: Performed By: #### U AR #### [facility] [address] [place] [address] Protein Ql (U) Negative Normal Negative [facility] Comment on above: Performed By: #### U AR #### [facility] [address] [place] [address] Specific gravity (U) [Rel density] 1.025 Normal 1.005-1.03 [facility] Comment on above: Performed By: #### U AR #### [facility] [address] [place] [address] Urine Reflexed to Culture Not Indicated Normal [facility] Comment on above: Performed By: #### U AR #### [facility] [address] [place] [address] Urobilinogen Qn (U) 0.2 {Polina'U}/dL Normal < 2.0 [facility] Comment on above: Performed By: #### U AR #### [facility] [address] [facility] Urine Reflex to Cultureon Bilirubin Urine Negative [facility] [place] [place] Blood, Urine Negative Negative [place] Clarity, UA Clear Clear [place] Color, UA Yellow Straw/Yellow [place] Glucose, Ur Negative Negative mg/dL [place] Ketones Ql (U) 40 mg/dL Abnormal Negative [place] Leukocyte esterase Test strip Ql (U) Negative Negative [place] Nitrite, Urine Negative Negative [place] pH, UA 7.0 [place] Protein (U) [Mass/Vol] Negative Negative mg/dL [place] Specific [place], UA 1.025 [place] Urine Reflex to Culture Not Indicated [place] Urobilinogen, Urine 0.2 <2.0 E.U./dL [place] POC H. Pylori Teston [address] [facility] Lot Number [id number] [facility] POC H. Pylori Negative Negative [facility] POC , Urineon 02-24 HCG ( test) Ql (U) Negative Negative [facility] [address] [facility] Interpretation and review of laboratory results Normal [facility] Specific gravity (U) [Rel density] [facility] NM Hepatobiliary With Ejecti on Fractionon 02-11-2019 Cholesterol [Mass/Vol] 1. No evidence of acute cholecystitis. 2. Gallbladder ejection fraction is decreased, suggesting chronic cholecystitis or biliary dyskinesia. 3. Mild enterogastric reflux. [facility]/trn Workstation ID: [id number] [facility] EXAMINATION: HEPATOBILIARY SCAN WITH GALLBLADDER EJECTION [...] this technique. There is mild enterogastric reflux. [facility] Interface, Rad In Fu ji Speechq [...] Mild enterogastric reflux. [facility]/trn Workstation ID: [id number] [facility] Bilirubin, Directon 01-29-20 19 Bilirubin.conjugated [Mass/Vol] mg/dL 0 - 0.4 mg/dL [facility] Interpretation and review of laboratory results Normal [facility] CBC WITH AUTO DIFFERENTIALon 01-28-2019 Basophils (Bld) [#/Vol] 0.08 10*3/uL [facility] Basophils/100 WBC (Bld) 0.6 % [facility] Eosinophils (Bld) [#/Vol] 0.43 10*3/uL [facility] Eosinophils/100 WBC (Bld) 3.5 % [facility] Erythrocyte distribution width (RBC) [Entitic vol] 13.3 % 11.6 - 14.8 % [facility] Hematocrit (Bld) [Volume fraction] 38.0 % 36 - 46 % [facility] Hemoglobin (Bld) [Mass/Vol] 12.5 g/dL 12 - 16 g/dL [facility] Immature granulocytes (Bld) [#/Vol] 0.06 10*3/uL [facility] Immature granulocytes/100 WBC (Bld) 0.50 % [facility] Comment on above: The IG parameter is the percentage of metamyelocytes, myelocytes, and promyelocytes. Interpretation and review of laboratory results Abnormal [facility] Lymphocytes (Bld) [#/Vol] 5.24 10*3/uL High [facility] Lymphocytes/100 WBC (Bld) 42.3 % [facility] MCH (RBC) [Entitic mass] 29.3 pg 25 - 35 pg [facility] MCHC (RBC) [Mass/Vol] 32.9 g/dL 31 - 37 g/dL [facility] MCV (RBC) [Entitic vol] 89.0 fL 78 - 102 fL [facility] Monocytes (Bld) [#/Vol] 1.22 10*3/uL [facility] Monocytes/100 WBC (Bld) 9.8 % [facility] Neutrophils (Bld) [#/Vol] 5.36 10*3/uL [facility] Neutrophils/100 WBC (Bld) 43.3 % [facility] Nucleated RBC (Bld) [#/Vol] 0.00 10*3/uL [facility] Nucleated RBC/100 WBC (Bld) [Ratio] 0.0 % [facility] Platelet mean volume (Bld) [Entitic vol] 11.0 fL 9 - 15.5 fL [facility] Platelets (Bld) [#/Vol] 397 10*3/uL [facility] RBC (Bld) [#/Vol] 4.27 10*6/uL [facility] ealth WBC (Bld) [#/Vol] 12.39 10*3/uL [facility] CT Abdomen Pelvis With IV Co [...] air. No suspicious osteolytic or osteoblastic lesion. [facility], Rad In Fu ji Speechq - [...] amount of pelvic free fluid, likely physiologic. [facility] Workstation ID: [id number] [facility] 1. Periportal edema and gallbladder wall edema. Findings remain nonspecific. This finding can be seen in the setting of aggressive volume resuscitation, hypotony anemic state tend underlying hepatitis. No focal hepatic lesion. 2. No renal, ureteral or bladder stone. 3. Normal appendix. 4. Small amount of pelvic free fluid, likely physiologic. [facility] Workstation ID: [id number] [facility] Comprehensive Metabolic Pane elyse 01-28-2019 Albumin [Mass/Vol] 4.2 g/dL 3.2 - 4.5 g/dL [facility] ALP [Catalytic activity/Vol] 84 U/L 40 - 140 U/L [facility] ALT [Catalytic activity/Vol] 20 U/L 14 - 65 U/L [facility] Anion gap [Moles/Vol] 12 mmol/L 10 - 2 0 mmol/L [facility] AST [Catalytic activity/Vol] 11 U/L 0 - 45 U/L [facility] Bilirubin [Mass/Vol] 0.3 mg/dL 0 - 1.3 mg/dL [facility] Calcium [Mass/Vol] 9.3 mg/dL 8.4 - 10. 2 mg/dL [facility] Chloride [Moles/Vol] 111 mmol/L High 98 - 10 8 mmol/L [facility] Creatinine [Mass/Vol] 0.58 mg/dL 0.5 - 1 mg/dL [facility] GFR/1.73 sq M predicted among non-blacks MDRD (S/P/Bld) [Vol rate/Area] The eGFR should be used for monitoring renal function only and not for medication dosing. [facility] GFR/1.73 sq M.predicted CKD-EPI (S/P/Bld) [Vol rate/Area] 135 >=60 mL/min/1.73 m2 [facility] Glucose [Mass/Vol] 88 mg/dL 65 - 99 mg/dL [facility] HCO3 [Moles/Vol] 22 mmol/L 21 - 32 mmol/L [facility] Interpretation and review of laboratory results Abnormal [facility] Potassium [Moles/Vol] 3.7 mmol/L 3.5 - 5.1 mmol/L [facility] Protein [Mass/Vol] 7.6 g/dL 6 - 8 g/dL [facility] alth Sodium [Moles/Vol] 141 mmol/L 135 - 145 mmol/L [facility] Urea nitrogen [Mass/Vol] 16 mg/dL 8 - 25 mg/dL [facility] Urea nitrogen/Creatinine [Mass ratio] 27.6 mg/mg High [facility] Lipaseon 01-28-2019 Interpretation and review of laboratory results Normal [facility] Lipase [Catalytic activity/Vol] 105 U/L 73 - 393 U/L [facility] PT/INRon 01-28-2019 INR Coag (PPP) [Relative time] 1.1 {INR} [facility] Interpretation and review of laboratory results Normal [facility] PT Coag (PPP) [Time] 13.8 s [facility] During the induction phase of oral anticoagulation, the INR may not reflect the anticoagulation status of the patient. Therapeutic ranges for INR's are: Most clinical situations: INR 2.0-3.0 Mechanical Prosthetic Valve: INR 2.5-3.5 Critical: INR >5.0 [facility] TROPONINon 01-28-2019 Troponin I.cardiac [Mass/Vol] ng/mL <=45 ng/L [facility] Troponin I.cardiac [Mass/Vol] Normal [facility] XR Chest 1 Viewon 01-28-2019 No acute cardiopulmo nary abnormality. [facility] Work[facility]: [id number] [facility] Interface, Rad In Fu ji Speechq [...] is seen. IMPRESSION: No acute cardiopulmonary abnormality. [facility] Workstation ID: [id number] [facility] EXAMINATION: XR CHES T PA/AP HISTORY: [...] effusion. No acute osseous abnormality is seen. [facility] URINALYSISon 01-27-2019 Bacteria Auto Ql (U) Few Abnormal None Se en /hpf [facility] Bilirubin Ql (U) Negative Negative [facility] Clarity Refractometry automated (U) Cloudy Abnormal Clear [facility] Color (U) Yellow Colorless, Yellow [facility] Epithelial cells.squamous Auto (Urine sed) [#/Area] 4 [facility] Glucose Auto test strip (U) [Mass/Vol] Negative Negative mg/dL [facility] Hemoglobin Auto test strip Ql (U) Small Abnormal Negative [facility] Interpretation and review of laboratory results Abnormal [facility] Ketones (U) [Mass/Vol] Negative Negative mg/dL [facility] Leukocyte esterase Auto test strip Ql (U) Negative Negative [facility] Mucus Auto (Urine sed) [#/Area] Many Abnormal None Seen, Rare /lpf [facility] Nitrite Auto test strip Ql (U) Positive Abnormal Negative [facility] pH (U) 5.0 [pH] [facility] Protein (U) [Mass/Vol] Negative Negative mg/dL [facility] RBC Auto (Urine sed) [#/Area] 9 High [facility] Specific gravity (U) [Rel density] 1.024 [facility] Urobilinogen (U) [Mass/Vol] <2.0 <2.0 mg/dL [facility] WBC Auto (Urine sed) [#/Area] 7 High [facility] Microscopic examinat ion is performed on all urinalysis samples and only positive findings are reported. The test for blood on the chemical analytic portion of urinalysis may also be positive due to hemoglobinuria and myoglobinuria and if red blood cells are present they are quantified by microscopic examination. [facility] Urine Pregnancyon 01-27-2019 HCG ( test) Ql (U) Negative Negative [facility] Interpretation and review of laboratory results Normal [facility] Basic Metabolic Panelon 10-22 Anion gap [Moles/Vol] 10 mmol/L 10 - 2 0 mmol/L [facility] Calcium [Mass/Vol] 8.6 mg/dL 8.4 - 10. 2 mg/dL [facility] Chloride [Moles/Vol] 112 mmol/L High 98 - 10 8 mmol/L [facility] Creatinine [Mass/Vol] 0.44 mg/dL Low 0.5 - 1 mg/dL [facility] GFR/1.73 sq M predicted among non-blacks MDRD (S/P/Bld) [Vol rate/Area] The eGFR should be used for monitoring renal function only and not for medication dosing. [facility] GFR/1.73 sq M.predicted CKD-EPI (S/P/Bld) [Vol rate/Area] 148 >=60 mL/min/1.73 m2 [facility] Glucose [Mass/Vol] 99 mg/dL 65 - 99 mg/dL [facility] HCO3 [Moles/Vol] 23 mmol/L 21 - 32 mmol/L [facility] Interpretation and review of laboratory results Abnormal [facility] Potassium [Moles/Vol] 3.9 mmol/L 3.5 - 5.1 mmol/L [facility] Sodium [Moles/Vol] 141 mmol/L 135 - 145 mmol/L [facility] Urea nitrogen [Mass/Vol] 7 mg/dL Low 8 - 25 mg/dL [facility] Urea nitrogen/Creatinine [Mass ratio] 15.9 mg/mg [facility] CBC WITH AUTO DIFFERENTIALon 11-09-2018 Basophils (Bld) [#/Vol] 0.07 10*3/uL [facility] Basophils/100 WBC (Bld) 0.6 % [facility] Eosinophils (Bld) [#/Vol] 0.50 10*3/uL [facility] Eosinophils/100 WBC (Bld) 4.3 % [facility] Erythrocyte distribution width (RBC) [Entitic vol] 15.7 % High 11.6 - 14.8 % [facility] Hematocrit (Bld) [Volume fraction] 34.2 % Low 36 - 46 % [facility] Hemoglobin (Bld) [Mass/Vol] 11.2 g/dL Low 12 - 16 g/dL [facility] Immature granulocytes (Bld) [#/Vol] 0.05 10*3/uL [facility] Immature granulocytes/100 WBC (Bld) 0.40 % [facility] Comment on above: The IG parameter is the percentage of metamyelocytes, myelocytes, and promyelocytes. Interpretation and review of laboratory results Abnormal [facility] Lymphocytes (Bld) [#/Vol] 4.75 10*3/uL High [facility] Lymphocytes/100 WBC (Bld) 41.3 % [facility] MCH (RBC) [Entitic mass] 30.0 pg 25 - 35 pg [facility] MCHC (RBC) [Mass/Vol] 32.7 g/dL 31 - 37 g/dL [facility] MCV (RBC) [Entitic vol] 91.7 fL 78 - 102 fL [facility] Monocytes (Bld) [#/Vol] 1.22 10*3/uL High [facility] Monocytes/100 WBC (Bld) 10.6 % [facility] Neutrophils (Bld) [#/Vol] 4.92 10*3/uL [facility] Neutrophils/100 WBC (Bld) 42.8 % [facility] Nucleated RBC (Bld) [#/Vol] 0.00 10*3/uL [facility] Nucleated RBC/100 WBC (Bld) [Ratio] 0.0 % [facility] Platelet mean volume (Bld) [Entitic vol] 11.1 fL 9 - 15.5 fL [facility] Platelets (Bld) [#/Vol] 453 10*3/uL High [facility] RBC (Bld) [#/Vol] 3.73 10*6/uL Low [facility] eah WBC (Bld) [#/Vol] 11.51 10*3/uL [facility] CBC WITH AUTO DIFFERENTIALon 11-08-2018 Basophils (Bld) [#/Vol] 0.06 10*3/uL [facility] Basophils/100 WBC (Bld) 0.4 % [facility] Eosinophils (Bld) [#/Vol] 0.24 10*3/uL [facility] Eosinophils/100 WBC (Bld) 1.8 % [facility] Erythrocyte distribution width (RBC) [Entitic vol] 15.8 % High 11.6 - 14.8 % [facility] Hematocrit (Bld) [Volume fraction] 35.7 % Low 36 - 46 % [facility] Hemoglobin (Bld) [Mass/Vol] 11.8 g/dL Low 12 - 16 g/dL [facility] Immature granulocytes (Bld) [#/Vol] 0.05 10*3/uL [facility] Immature granulocytes/100 WBC (Bld) 0.40 % [facility] Comment on above: The IG parameter is the percentage of metamyelocytes, myelocytes, and promyelocytes. Interpretation and review of laboratory results Abnormal [facility] Lymphocytes (Bld) [#/Vol] 4.45 10*3/uL High [facility] Lymphocytes/100 WBC (Bld) 33.1 % [facility] MCH (RBC) [Entitic mass] 29.9 pg 25 - 35 pg [facility] MCHC (RBC) [Mass/Vol] 33.1 g/dL 31 - 37 g/dL [facility] MCV (RBC) [Entitic vol] 90.6 fL 78 - 102 fL [facility] Monocytes (Bld) [#/Vol] 1.51 10*3/uL High [facility] Monocytes/100 WBC (Bld) 11.2 % [facility] Neutrophils (Bld) [#/Vol] 7.15 10*3/uL High [facility] Neutrophils/100 WBC (Bld) 53.1 % [facility] Nucleated RBC (Bld) [#/Vol] 0.00 10*3/uL [facility] Nucleated RBC/100 WBC (Bld) [Ratio] 0.0 % [facility] Platelet mean volume (Bld) [Entitic vol] 12.2 fL 9 - 15.5 fL [facility] Platelets (Bld) [#/Vol] 441 10*3/uL High [facility] RBC (Bld) [#/Vol] 3.94 10*6/uL Low [facility] ealth WBC (Bld) [#/Vol] 13.46 10*3/uL [facility] CT Abdomen Pelvis With IV Co ntrast Onlyon 11-08-2018 1. Rfkn-ej-okzgilhe edematous changes reflective of pyelonephritis of the mid and inferior aspect of the right kidney. 2. No evidence of hydronephrosis or urinary tract stone. Urinary bladder incidentally is somewhat overdistended at the time of the study. 3. New dxhd-eu-qtxttupw ascites in the pelvis which has developed fairly rapidly since the prior study. 4. Qtrp-ug-nbcbffuo constipation. 5. Patient is status post splenectomy. Workstation ID: [id number] [facility], Rad In Fu ji Speechq - 11/08/2018 [...] abdominal wall hernia is noted. IMPRESSION: 1. Eumd-rb-nukuahej edematous changes reflective of pyelonephritis of the mid and inferior aspect of the right kidney. 2. No evidence of hydronephrosis or urinary tract stone. Urinary bladder incidentally is somewhat overdistended at the time of the study. 3. New ctiw-zc-teptttbo ascites in the pelvis which has developed fairly rapidly since the prior study. 4. Qxpa-yq-wjsdhiit constipation. 5. Patient is status post splenectomy. Workstation ID: [id number] [facility] EXAMINATION: CT ABDO MEN PELVIS WITH [...] No anterior abdominal wall hernia is noted. [facility] Urine Aerobic Cultureon 10-22 Bacteria identified Aer cx Nom (Unsp spec) No Growth (<1,000 CFU/mL) [facility] CBC WITH AUTO DIFFERENTIALon 11-07-2018 Basophils (Bld) [#/Vol] 0.06 10*3/uL [facility] Basophils/100 WBC (Bld) 0.3 % [facility] Eosinophils (Bld) [#/Vol] 0.21 10*3/uL [facility] Eosinophils/100 WBC (Bld) 1.0 % [facility] Erythrocyte distribution width (RBC) [Entitic vol] 15.9 % High 11.6 - 14.8 % [facility] Hematocrit (Bld) [Volume fraction] 37.5 % 36 - 46 % [facility] Hemoglobin (Bld) [Mass/Vol] 12.1 g/dL 12 - 16 g/dL [facility] Immature granulocytes (Bld) [#/Vol] 0.08 10*3/uL [facility] Immature granulocytes/100 WBC (Bld) 0.40 % [facility] Comment on above: The IG parameter is the percentage of metamyelocytes, myelocytes, and promyelocytes. Interpretation and review of laboratory results Abnormal [facility] Lymphocytes (Bld) [#/Vol] 5.29 10*3/uL High [facility] Lymphocytes/100 WBC (Bld) 25.2 % [facility] MCH (RBC) [Entitic mass] 29.7 pg 25 - 35 pg [facility] MCHC (RBC) [Mass/Vol] 32.3 g/dL 31 - 37 g/dL [facility] MCV (RBC) [Entitic vol] 92.1 fL 78 - 102 fL [facility] Monocytes (Bld) [#/Vol] 2.12 10*3/uL High [facility] Monocytes/100 WBC (Bld) 10.1 % [facility] Neutrophils (Bld) [#/Vol] 13.26 10*3/uL High [facility] Neutrophils/100 WBC (Bld) 63.0 % [facility] Comment on above: Peripheral smear rev iewed manually Nucleated RBC (Bld) [#/Vol] 0.00 10*3/uL [facility] Nucleated RBC/100 WBC (Bld) [Ratio] 0.0 % [facility] Platelet mean volume (Bld) [Entitic vol] 11.3 fL 9 - 15.5 fL [facility] Platelets (Bld) [#/Vol] 316 10*3/uL [facility] RBC (Bld) [#/Vol] 4.07 10*6/uL Low [facility] ealth WBC (Bld) [#/Vol] 21.02 10*3/uL High [facility] MORPHOLOGYon 11-07-2018 Radha cells LM Ql (Bld) Few [facility] Basic Metabolic Panelon 10-22 Anion gap [Moles/Vol] 11 mmol/L 10 - 2 0 mmol/L [facility] Calcium [Mass/Vol] 8.2 mg/dL Low 8.4 - 10. 2 mg/dL [facility] Chloride [Moles/Vol] 114 mmol/L High 98 - 10 8 mmol/L [facility] Creatinine [Mass/Vol] 0.51 mg/dL 0.5 - 1 mg/dL [facility] GFR/1.73 sq M predicted among non-blacks MDRD (S/P/Bld) [Vol rate/Area] The eGFR should be used for monitoring renal function only and not for medication dosing. [facility] GFR/1.73 sq M.predicted CKD-EPI (S/P/Bld) [Vol rate/Area] 141 >=60 mL/min/1.73 m2 [facility] Glucose [Mass/Vol] 96 mg/dL 65 - 99 mg/dL [facility] HCO3 [Moles/Vol] 20 mmol/L Low 21 - 32 mmol/L [facility] Interpretation and review of laboratory results Abnormal [facility] Potassium [Moles/Vol] 3.6 mmol/L 3.5 - 5.1 mmol/L [facility] Sodium [Moles/Vol] 141 mmol/L 135 - 145 mmol/L [facility] Urea nitrogen [Mass/Vol] 5 mg/dL Low 8 - 25 mg/dL [facility] Urea nitrogen/Creatinine [Mass ratio] 9.8 mg/mg Low [facility] CBC WITH AUTO DIFFERENTIALon 11-06-2018 Erythrocyte distribution width (RBC) [Entitic vol] 15.6 % High 11.6 - 14.8 % [facility] Hematocrit (Bld) [Volume fraction] 34.7 % Low 36 - 46 % [facility] Hemoglobin (Bld) [Mass/Vol] 11.2 g/dL Low 12 - 16 g/dL [facility] MCH (RBC) [Entitic mass] 29.7 pg 25 - 35 pg [facility] MCHC (RBC) [Mass/Vol] 32.3 g/dL 31 - 37 g/dL [facility] MCV (RBC) [Entitic vol] 92.0 fL 78 - 102 fL [facility] Nucleated RBC (Bld) [#/Vol] 0.00 10*3/uL [facility] Nucleated RBC/100 WBC (Bld) [Ratio] 0.0 % [facility] Platelet mean volume (Bld) [Entitic vol] 10.8 fL 9 - 15.5 fL [facility] Platelets (Bld) [#/Vol] 347 10*3/uL [facility] RBC (Bld) [#/Vol] 3.77 10*6/uL Low [facility] ealth WBC (Bld) [#/Vol] 21.19 10*3/uL High [facility] Basophils (Bld) [#/Vol] 0.09 10*3/uL [facility] Basophils/100 WBC (Bld) 0.4 % [facility] Eosinophils (Bld) [#/Vol] 0.13 10*3/uL [facility] Eosinophils/100 WBC (Bld) 0.6 % [facility] Erythrocyte distribution width (RBC) [Entitic vol] 15.4 % High 11.6 - 14.8 % [facility] Hematocrit (Bld) [Volume fraction] 34.6 % Low 36 - 46 % [facility] Hemoglobin (Bld) [Mass/Vol] 11.2 g/dL Low 12 - 16 g/dL [facility] Immature granulocytes (Bld) [#/Vol] 0.13 10*3/uL [facility] Immature granulocytes/100 WBC (Bld) 0.60 % [facility] Comment on above: The IG parameter is the percentage of metamyelocytes, myelocytes, and promyelocytes. Interpretation and review of laboratory results Abnormal [facility] Lymphocytes (Bld) [#/Vol] 5.91 10*3/uL High [facility] Lymphocytes/100 WBC (Bld) 25.8 % [facility] MCH (RBC) [Entitic mass] 29.9 pg 25 - 35 pg [facility] MCHC (RBC) [Mass/Vol] 32.4 g/dL 31 - 37 g/dL [facility] MCV (RBC) [Entitic vol] 92.5 fL 78 - 102 fL [facility] Monocytes (Bld) [#/Vol] 2.60 10*3/uL High [facility] Monocytes/100 WBC (Bld) 11.4 % [facility] Neutrophils (Bld) [#/Vol] 14.04 10*3/uL High [facility] Neutrophils/100 WBC (Bld) 61.2 % [facility] Comment on above: Peripheral smear rev iewed manually Nucleated RBC (Bld) [#/Vol] 0.00 10*3/uL [facility] Nucleated RBC/100 WBC (Bld) [Ratio] 0.0 % [facility] Platelet mean volume (Bld) [Entitic vol] 11.5 fL 9 - 15.5 fL [facility] Platelets (Bld) [#/Vol] 330 10*3/uL [facility] RBC (Bld) [#/Vol] 3.74 10*6/uL Low [facility] ealth WBC (Bld) [#/Vol] 22.90 10*3/uL [facility] CT Abdomen Pelvis Without Co ntraston 11-06-2018 Interface, [facility] - 11/06/2018 2:37 AM EDT CLINICAL [...] ureterolithiasis. 3. Normal-appearing appendix. KKV/vrs Workstation ID: [id number] [facility] CLINICAL HISTORY: Ri ght CVA tenderness, [...] Visualized osseous structures demonstrate no gross abnormalities. [facility] 1. There is some perinephric fat stranding involving the right kidney which could be a nonspecific finding, however underlying pyelonephritis would be a consideration. 2. No nephro- or ureterolithiasis. 3. Normal-appearing appendix. [employer] Workstation ID: [id number] [facility] Hemoglobin A1con 11-06-2018 Average glucose Estimated from glycated hemoglobin mass conc (Bld) 94 mg/dL 68 - 114 mg/dL [facility] HbA1c (Bld) [Mass fraction] 4.9 % 4 - 5.6 % [facility] Comment on above: Normal: 4.0% - 5.6% Increased risk for diabetes: 5.7% - 6.4% Diabetes: >= 6.5% Pediatrics: No established reference range Estimated average glucose: 68-114 mg/dL Please note: Reference intervals were changed as of 07/31/2018 to align with current [place] [employer] guidelines Interpretation and review of laboratory results Normal [facility] MORPHOLOGYon 11-06-2018 Anisocytosis Ql (Bld) 1+ [facility] Satin cells LM Ql (Bld) Rare [facility] Anisocytosis Ql (Bld) 1+ [facility] Radha cells LM Ql (Bld) Rare [facility] [place] bodies LM Ql (Bld) Rare [facility] Magnesium Levelon 11-06-2018 Interpretation and review of laboratory results Normal [facility] Magnesium [Mass/Vol] 2.1 mg/dL 1.6 - 2 .4 mg/dL [facility] Manual Differentialon 2018 Band form neutrophils/100 WBC (Bld) 0.0 % [facility] Basophils (Bld) [#/Vol] 0.00 10*3/uL [facility] Basophils/100 WBC (Bld) 0.0 % [facility] Blasts Manual cnt (Bld) [#/Vol] 0.00 [facility] Blasts/100 WBC (Bld) 0.0 % [facility] Eosinophils (Bld) [#/Vol] 0.38 10*3/uL [facility] Eosinophils/100 WBC (Bld) 1.8 % [facility] Lymphocytes (Bld) [#/Vol] 7.25 10*3/uL High [facility] Lymphocytes/100 WBC (Bld) 34.2 % [facility] Metamyelocytes/100 WBC (Bld) 0.0 % [facility] Monocytes (Bld) [#/Vol] 4.20 10*3/uL High [facility] Monocytes/100 WBC (Bld) 19.8 % [facility] Myelocytes/100 WBC (Bld) 0.0 % [facility] Neutrophils (Bld) [#/Vol] 9.34 10*3/uL High [facility] Neutrophils/100 WBC (Bld) 44.1 % [facility] Other cells Manual cnt (Bld) [#/Vol] 0.00 [facility] Other cells/100 WBC Manual cnt (Bld) 0.0 % [facility] Plasma cells (Bld) [#/Vol] 0.00 10*3/uL [facility] Plasma cells/100 WBC (Bld) 0.0 % [facility] Promyelocytes/100 WBC (Bld) 0.0 % [facility] Variant lymphocytes/100 WBC (Bld) 0.0 % [facility] Otheron 11-06-2018 Interpretation and review of laboratory results Abnormal [facility] hCG Urine, Qualitativeon HCG ( test) Ql (U) Negative Negative [facility] Interpretation and review of laboratory results Normal [facility] C Urineon 11-05-2018 C Urine Final [...] <=4 S SXT : >2/38 R Normal [facility] Comment on above: Performed By: #### [id number] #### DAYANNA Microbiology Subsection [address] [place] [address] CBC WITH AUTO DIFFERENTIALon 11-05-2018 Basophils (Bld) [#/Vol] 0.09 10*3/uL [facility] Basophils/100 WBC (Bld) 0.3 % [facility] Eosinophils (Bld) [#/Vol] 0.01 10*3/uL [facility] Eosinophils/100 WBC (Bld) 0.0 % [facility] Erythrocyte distribution width (RBC) [Entitic vol] 15.1 % High 11.6 - 14.8 % [facility] Hematocrit (Bld) [Volume fraction] 41.8 % 36 - 46 % [facility] Hemoglobin (Bld) [Mass/Vol] 13.7 g/dL 12 - 16 g/dL [facility] Immature granulocytes (Bld) [#/Vol] 0.15 10*3/uL [facility] Immature granulocytes/100 WBC (Bld) 0.50 % [facility] Comment on above: The IG parameter is the percentage of metamyelocytes, myelocytes, and promyelocytes. Interpretation and review of laboratory results Abnormal [facility] Lymphocytes (Bld) [#/Vol] 3.13 10*3/uL [facility] Lymphocytes/100 WBC (Bld) 11.1 % [facility] MCH (RBC) [Entitic mass] 29.8 pg 25 - 35 pg [facility] MCHC (RBC) [Mass/Vol] 32.8 g/dL 31 - 37 g/dL [facility] MCV (RBC) [Entitic vol] 90.9 fL 78 - 102 fL [facility] Monocytes (Bld) [#/Vol] 2.97 10*3/uL High [facility] Monocytes/100 WBC (Bld) 10.6 % [facility] Neutrophils (Bld) [#/Vol] 21.75 10*3/uL High [facility] Neutrophils/100 WBC (Bld) 77.5 % [facility] Comment on above: Peripheral smear rev iewed manually Nucleated RBC (Bld) [#/Vol] 0.00 10*3/uL [facility] Nucleated RBC/100 WBC (Bld) [Ratio] 0.0 % [facility] Platelet mean volume (Bld) [Entitic vol] 11.4 fL 9 - 15.5 fL [facility] Platelets (Bld) [#/Vol] 373 10*3/uL [facility] RBC (Bld) [#/Vol] 4.60 10*6/uL [facility]alth WBC (Bld) [#/Vol] 28.10 10*3/uL High [facility] Comprehensive Metabolic Pane elyse 11-05-2018 Albumin [Mass/Vol] 3.7 g/dL 3.2 - 4.5 g/dL [facility] ALP [Catalytic activity/Vol] 89 U/L 40 - 140 U/L [facility] ALT [Catalytic activity/Vol] 19 U/L 14 - 65 U/L [facility] Anion gap [Moles/Vol] 13 mmol/L 10 - 2 0 mmol/L [facility] AST [Catalytic activity/Vol] 8 U/L 0 - 45 U/L [facility] Bilirubin [Mass/Vol] 0.5 mg/dL 0 - 1.3 mg/dL [facility] Calcium [Mass/Vol] 9.1 mg/dL 8.4 - 10. 2 mg/dL [facility] Chloride [Moles/Vol] 106 mmol/L 98 - 10 8 mmol/L [facility] Creatinine [Mass/Vol] 0.79 mg/dL 0.5 - 1 mg/dL [facility] GFR/1.73 sq M predicted among non-blacks MDRD (S/P/Bld) [Vol rate/Area] The eGFR should be used for monitoring renal function only and not for medication dosing. [facility] GFR/1.73 sq M.predicted CKD-EPI (S/P/Bld) [Vol rate/Area] 110 >=60 mL/min/1.73 m2 [facility] Glucose [Mass/Vol] 113 mg/dL High 65 - 99 mg/dL [facility] HCO3 [Moles/Vol] 20 mmol/L Low 21 - 32 mmol/L [facility] Interpretation and review of laboratory results Abnormal [facility] Potassium [Moles/Vol] 3.4 mmol/L Low 3.5 - 5.1 mmol/L [facility] Protein [Mass/Vol] 8.1 g/dL High 6 - 8 g/dL [facility]th Sodium [Moles/Vol] 136 mmol/L 135 - 145 mmol/L [facility] Urea nitrogen [Mass/Vol] 7 mg/dL Low 8 - 25 mg/dL [facility] Urea nitrogen/Creatinine [Mass ratio] 8.9 mg/mg Low [facility] Lactic Acid, Plasmaon 2018 Interpretation and review of laboratory results Normal [facility] Lactate [Moles/Vol] 1.9 mmol/L 0.6 - 2 mmol/L [facility] MORPHOLOGYon 11-05-2018 RBC morphology finding Nom (Bld) Normal [facility] POC Venous Blood Gas Panel-P ulmon 11-05-2018 Base excess Calc (BldV) [Moles/Vol] -1.7 mmol/L [facility] Breath rate setting Ventilator synchronized intermittent mandatory 0 [facility] Calcium.ionized [Mass/Vol] 4.8 mg/dL 4.5 - 5.3 mg/dL [facility] Carboxyhemoglobin (BldA) [Mass fraction] 1.9 High [facility] Comment on above: Reference Ranges: [facility] Non-smokers: <1.5% Smokers: 1.5-5.0% Heavy Smokers: 5.0-9.0% Chloride [Moles/Vol] 105 mmol/L 98 - 10 8 mmol/L [facility] CO2 (BldV) [Partial pressure] 35.7 mm[Hg] Low [facility] Glucose [Mass/Vol] 117 mg/dL High 65 - 99 mg/dL [facility] HCO3 (Bld) [Moles/Vol] 22.5 mmol/L Low 24 - 28 mmol/L [facility] Hematocrit (BldA) [Volume fraction] 44.5 % 36 - 46 % [facility] Hemoglobin (Bld) [Mass/Vol] 14.5 g/dL 12 - 16 g/dL [facility] Inhaled oxygen concentration 21 % [facility] Interpretation and review of laboratory results Abnormal [facility] Lactate [Moles/Vol] 1.7 mmol/L 0.6 - 2 mmol/L [facility] Methemoglobin (BldA) [Mass fraction] 1.2 % 0 - 2 % [facility] Oxygen (BldV) [Partial pressure] 33 mm[Hg] [facility] Oxygen saturation in Venous blood 65.8 % [facility] Oxyhemoglobin (BldA) [Mass fraction] 63.8 % Low 94 - 98 % [facility] pH (BldV) 7.41 [pH] [facility] Potassium [Moles/Vol] 3.4 mmol/L Low 3.5 - 5.1 mmol/L [facility] Sodium [Moles/Vol] 137 mmol/L 135 - 145 mmol/L [facility] Specimen source Nom (Unsp spec) Not specified [facility] Tidal volume setting Ventilator 0 [facility] URINALYSISon 11-05-2018 Bacteria Auto Ql (U) Rare Abnormal None Se en /hpf [facility] Bilirubin Ql (U) Negative Negative [facility] th Clarity Refractometry automated (U) Hazy Abnormal Clear [facility] Color (U) Yellow Colorless, Yellow [facility] Epithelial cells.squamous Auto (Urine sed) [#/Area] 7 High [facility] Glucose Auto test strip (U) [Mass/Vol] Negative Negative mg/dL [facility] Hemoglobin Auto test strip Ql (U) Negative Negative [facility] Interpretation and review of laboratory results Abnormal [facility] Ketones (U) [Mass/Vol] 20 Abnormal Negative mg/dL [facility] Leukocyte esterase Auto test strip Ql (U) Trace Abnormal Negative [facility] Mucus Auto (Urine sed) [#/Area] Rare None Seen, Rare /lpf [facility] Nitrite Auto test strip Ql (U) Negative Negative [facility] pH (U) 5.0 [pH] [facility] Protein (U) [Mass/Vol] 30 Abnormal Negative mg/dL [facility] Comment on above: False positive resul ts may occur in urines with large amounts of hemoglobin, pH greater than 8.0, contrast medium, or disinfectants including ammonium compounds. RBC Auto (Urine sed) [#/Area] 6 High [facility] Specific gravity (U) [Rel density] 1.018 [facility] Transitional cells Computer assisted (U) [#/Area] <1 [facility] Urobilinogen (U) [Mass/Vol] >=4.0 Abnormal <2.0 mg/dL [facility] WBC Auto (Urine sed) [#/Area] 25 High [facility] Microscopic examinat ion is performed on all urinalysis samples and only positive findings are reported. The test for blood on the chemical analytic portion of urinalysis may also be positive due to hemoglobinuria and myoglobinuria and if red blood cells are present they are quantified by microscopic examination. [facility] XR Chest 1 Viewon 11-05-2018 EXAMINATION: [...] normal in size. Bony thorax is unremarkable. [facility] No acute cardiopulmo nary process. [employer] Workstation ID: [id number] [facility] Interface, Rad In Fu ji Speechq [...] is unremarkable. IMPRESSION: No acute cardiopulmonary process. [employer] Workstation ID: [id number] [facility] Vital Signs Date Time Vital Sign Value Performing Clinician Facility 01-11-2025 21:05-0400 Body temperature 98.2 [degF] Dr. Mimi Thomas DO Work Phone: [facility] 01-11-2025 21:05-0400 Respiratory rate 16 /min Dr. Mimi Thomas DO Work Phone: [facility] 01-11-2025 21:04-0400 Diastolic blood pressure 77 mm[Hg] Dr. Mimi Thomas DO Work Phone: [facility] 01-11-2025 21:04-0400 Heart rate 79 /min Dr. Mimi Thomas DO Work Phone: [facility] 01-11-2025 21:04-0400 Systolic blood pressure 122 mm[Hg] Dr. Mimi Thomas DO Work Phone: [facility] 01-11-2025 20:56-0400 Body height 162.[address] Mimi Thomas DO Work Phone: [facility] 01-11-2025 20:56-0400 Body mass index (BMI) [Ratio] 26.1 kg/m2 Dr. Mimi Thomas DO Work Phone: [facility] 01-11-2025 20:56-0400 Body weight 68.[address] Mimi Thomas DO Work Phone: [facility] 01-07-2025 11:24-0400 Body height 162.[address] Mimi Thomas DO Work Phone: [facility] 01-07-2025 11:24-0400 Body mass index (BMI) [Ratio] 25.7 kg/m2 Dr. Mimi Thomas DO Work Phone: [facility] 01-07-2025 11:24-0400 Body weight 68.[address] Mimi Thomas DO Work Phone: [facility] 01-07-2025 11:24-0400 Diastolic blood pressure 88 mm[Hg] Dr. Mimi Thomas DO Work Phone: [facility] 01-07-2025 11:24-0400 Systolic blood pressure 134 mm[Hg] Dr. Mimi Thomas DO Work Phone: [facility] 12-30-2024 14:13-0400 Body height 162.[address] Mimi Thomas DO Work Phone: [facility] 12-30-2024 14:13-0400 Body mass index (BMI) [Ratio] 25.7 kg/m2 Dr. Mimi Thomas DO Work Phone: [facility] 12-30-2024 14:13-0400 Body weight 68.[address] Mimi Thomas DO Work Phone: [facility] 12-30-2024 14:13-0400 Diastolic blood pressure 86 mm[Hg] Dr. Mimi Thomas DO Work Phone: [facility] 12-30-2024 14:13-0400 Systolic blood pressure 128 mm[Hg] Dr. Mimi Thomas DO Work Phone: [facility] 12-23-2024 15:26-0400 Body height 162.[address] Mimi Thomas DO Work Phone: [facility] 12-23-2024 15:26-0400 Body mass index (BMI) [Ratio] 25.6 kg/m2 Dr. Mimi Thomas DO Work Phone: [facility] 12-23-2024 15:26-0400 Body weight 67.[address] Mimi Thomas DO Work Phone: [facility] 12-23-2024 15:26-0400 Diastolic blood pressure 82 mm[Hg] Dr. Mimi Thomas DO Work Phone: [facility] 12-23-2024 15:26-0400 Systolic blood pressure 118 mm[Hg] Dr. Mimi Thomas DO Work Phone: [facility] 12-15-2024 09:36-0400 Body height 162.[address] Mimi Thomas DO Work Phone: [facility] 12-15-2024 09:36-0400 Body mass index (BMI) [Ratio] 26.1 kg/m2 Dr. Mimi Thomas DO Work Phone: [facility] 12-15-2024 09:36-0400 Body weight 68.[address] Mimi Thomas DO Work Phone: [facility] 12-15-2024 09:36-0400 Diastolic blood pressure 82 mm[Hg] Dr. Mimi Thomas DO Work Phone: [facility] 12-15-2024 09:36-0400 Systolic blood pressure 125 mm[Hg] Dr. Mimi Thomas DO Work Phone: [facility] 12-09-2024 09:30-0400 Body height 162.[address] Mimi Thomas DO Work Phone: [facility] 12-09-2024 09:26-0400 Body mass index (BMI) [Ratio] 25.4 kg/m2 Dr. Mimi Thomas DO Work Phone: [facility] 12-09-2024 09:26-0400 Body weight 67.[address] Mimi Thomas DO Work Phone: [facility] 12-09-2024 09:26-0400 Diastolic blood pressure 76 mm[Hg] Dr. Mimi Thomas DO Work Phone: [facility] 12-09-2024 09:26-0400 Systolic blood pressure 127 mm[Hg] Dr. Mimi Thomas DO Work Phone: [facility] 11-25-2024 09:57-0400 Body height 162.[address] Mimi Thomas DO Work Phone: [facility] 11-25-2024 09:57-0400 Body mass index (BMI) [Ratio] 25 kg/m2 Dr. Mimi Thomas DO Work Phone: [facility] 11-25-2024 09:57-0400 Body weight 66.[address] [facility] DO [facility] [facility] 11-25-2024 09:57-0400 Diastolic blood pressure 82 mm[Hg] Dr. Mimi Thomas DO Work Phone: [facility] 11-25-2024 09:57-0400 Systolic blood pressure 112 mm[Hg] Dr. Mimi Thomas DO Work Phone: [facility] 11-11-2024 09:33-0400 Body height 162.[address] Mimi Thomas DO Work Phone: [facility] 11-11-2024 09:33-0400 Body mass index (BMI) [Ratio] 24.7 kg/m2 Dr. Mimi Thomas DO Work Phone: [facility] 11-11-2024 09:33-0400 Body weight 65.[address] Mimi Thomas DO Work Phone: [facility] 11-11-2024 09:33-0400 Diastolic blood pressure 76 mm[Hg] Dr. Mimi Thomas DO Work Phone: [facility] 11-11-2024 09:33-0400 Systolic blood pressure 117 mm[Hg] Dr. Mimi Thomas DO Work Phone: [facility] 10-27-2024 09:21-0400 Body mass index (BMI) [Ratio] 24.3 kg/m2 Dr. Mimi Thomas DO Work Phone: [facility] 10-27-2024 09:21-0400 Body weight 64.[address] Mimi Thomas DO Work Phone: [facility] 10-27-2024 09:21-0400 Diastolic blood pressure 73 mm[Hg] Dr. Mimi Thomas DO Work Phone: [facility] 10-27-2024 09:21-0400 Systolic blood pressure 119 mm[Hg] Dr. Mimi Thomas DO Work Phone: [facility] 10-15-2024 09:57-0400 Body height 162.[address] Mimi Thomas DO Work Phone: [facility] 10-15-2024 09:55-0400 Body mass index (BMI) [Ratio] 23.7 kg/m2 Dr. Mimi Thomas DO Work Phone: [facility] 10-15-2024 09:55-0400 Body weight 62.[address] Mimi Thomas DO Work Phone: [facility] 10-13-2024 13:58-0400 Body mass index (BMI) [Ratio] 23.6 kg/m2 Dr. Mimi Thomas DO Work Phone: [facility] 10-13-2024 13:58-0400 Body weight 62.[address] Mimi Thomas DO Work Phone: [facility] 10-13-2024 13:58-0400 Diastolic blood pressure 71 mm[Hg] Dr. Mimi Thomas DO Work Phone: [facility] 10-13-2024 13:58-0400 Systolic blood pressure 108 mm[Hg] Dr. Mimi Thomas DO Work Phone: [facility] 10-12-2024 10:19-0400 Body height 162.6 cm Sandra Church CNP Work Phone: [facility] 10-12-2024 10:19-0400 Body mass index (BMI) [Ratio] 22.31 kg/m2 Sandra Church CNP Work Phone: [facility] 10-12-2024 10:19-0400 Body temperature 98.71 [degF] Sandra Church CNP Work Phone: [facility] 10-12-2024 10:19-0400 Body weight 58.97 kg Sandra Church CNP Work Phone: [facility] 10-12-2024 10:19-0400 Diastolic blood pressure 70 mm[Hg] Sandra Church CNP Work Phone: [facility] 10-12-2024 10:19-0400 Heart rate 98 /min Sandra Church CNP Work Phone: [facility] 10-12-2024 10:19-0400 Respiratory rate 15 /min Sandra Church CNP Work Phone: [facility] 10-12-2024 10:19-0400 SaO2% (BldA) [Mass fraction] 96 % Sandra Church [employer] Work Phone: [facility] 10-12-2024 10:19-0400 Systolic blood pressure 107 mm[Hg] Sandra Church [employer] Work Phone: [facility] 09-23-2024 07:54-0400 Body temperature 99.3 [degF] Kassi Ontiveros CNM Work Phone: [facility] 09-23-2024 07:54-0400 Respiratory rate 12 /min Kassi Ontiveros CNM Work Phone: [facility] 09-23-2024 07:54-0400 SaO2% (BldA) [Mass fraction] 100 % Kassi Ontievros CNM Work Phone: [facility] 09-23-2024 07:48-0400 Diastolic blood pressure 60 mm[Hg] Kassidilcia Ontiveros CNM Work Phone: [facility] 09-23-2024 07:48-0400 Heart rate 80 /min Kassi Ontiveros CNM Work Phone: [facility] 09-23-2024 07:48-0400 Systolic blood pressure 109 mm[Hg] Kassi Ontiveros CNM Work Phone: [facility] 09-22-2024 17:21-0400 Body height 162.56 cm Kassi Ontiveros CNM Work Phone: [facility] 09-22-2024 17:21-0400 Body mass index (BMI) [Ratio] 22.8 kg/m2 Kassi Ontiveros CNM Work Phone: [facility] 09-22-2024 17:21-0400 Body weight 60.32 kg Kassi Ontiveros CNM Work Phone: [facility] 09-22-2024 12:10-0400 Body height 162.6 cm Jamari Delgadillo MD Work Phone: [facility] 09-22-2024 12:10-0400 Body mass index (BMI) [Ratio] 23.34 kg/m2 Jamari Delgadillo MD Work Phone: [facility] 09-22-2024 12:10-0400 Body temperature 98.91 [degF] Jamari Delgadillo MD Work Phone: [facility] 09-22-2024 12:10-0400 Body weight 61.69 kg Jamari Delgadillo MD Work Phone: [facility] 09-22-2024 12:10-0400 Diastolic blood pressure 64 mm[Hg] Jamari Delgadillo MD Work Phone: [facility] 09-22-2024 12:10-0400 Heart rate 82 /min Jamari Delgadillo MD Work Phone: [facility] 09-22-2024 12:10-0400 Respiratory rate 16 /min Jamari Delgadillo MD Work Phone: [facility] 09-22-2024 12:10-0400 SaO2% (BldA) [Mass fraction] 99 % Jamari Delgadillo MD Work Phone: [facility] 09-22-2024 12:10-0400 Systolic blood pressure 107 mm[Hg] Jamari Delgadillo MD Work Phone: [facility] 09-22-2024 08:36-0400 Body mass index (BMI) [Ratio] 23.6 kg/m2 Kassi MESSER Work Phone: [facility] 09-22-2024 08:36-0400 Body weight 62.25 kg Kassi MESSER Work Phone: [facility] 09-22-2024 08:36-0400 Diastolic blood pressure 60 mm[Hg] Kassi Ontiveros CNM Work Phone: [facility] 09-22-2024 08:36-0400 Systolic blood pressure 98 mm[Hg] Kassi MESSER Work Phone: [facility] 08-26-2024 09:26-0500 Body mass index (BMI) [Ratio] 22.1 kg/m2 Kassi Ontiveros CNM Work Phone: [facility] 08-26-2024 09:26-0500 Body weight 58.51 kg Kassi Ontiveros CNM Work Phone: [facility] 08-26-2024 09:26-0500 Diastolic blood pressure 62 mm[Hg] Kassi Ontiveros CNM Work Phone: [facility] 08-26-2024 09:26-0500 Systolic blood pressure 108 mm[Hg] Kassi Ontiveros CNM Work Phone: [facility] 08-08-2024 22:31-0500 Body height 162.6 cm Jamari Delgadillo MD [facility] 08-08-2024 22:31-0500 Body mass index (BMI) [Ratio] 21.63 kg/m2 Jamari Delgadillo MD Work Phone: [facility] [employer] 08-08-2024 22:31-0500 Body temperature 98.2 [degF] Jamari Delgadillo MD Work Phone: [facility] [employer] [facility] 08-08-2024 22:31-0500 Body weight 57.15 kg Jamari Delgadillo MD Work Phone: [facility] [employer] 08-08-2024 22:31-0500 Diastolic blood pressure 76 mm[Hg] Jamari Delgadillo MD Work Phone: [facility] [employer] [facility] 08-08-2024 22:31-0500 Heart rate 76 /min Jamari Delgadillo MD Work Phone: [facility] [employer] [facility] 08-08-2024 22:31-0500 Respiratory rate 18 /min Jamari Delgadillo MD Work [facility]: [facility] 08-08-2024 22:31-0500 SaO2% (BldA) [Mass fraction] 100 % Jamari Delgadillo MD Work Phone: [facility] 08-08-2024 22:31-0500 Systolic blood pressure 118 mm[Hg] Jamari Delgadillo MD Work Phone: [facility] 07-28-2024 08:56-0500 Body mass index (BMI) [Ratio] 21.8 kg/m2 Kassi Ontiveros CNM Work Phone: [facility] 07-28-2024 08:56-0500 Body weight 57.6 kg Kassi Ontiveros CNM Work Phone: [facility] 07-28-2024 08:56-0500 Diastolic blood pressure 70 mm[Hg] Kassi Ontiveros CNM Work Phone: [facility] 07-28-2024 08:56-0500 Systolic blood pressure 112 mm[Hg] Kassi Ontiveros CNM Work Phone: [facility] 07-01-2024 09:26-0500 Body mass index (BMI) [Ratio] 21.3 kg/m2 Kassi Ontiveros CNM Work Phone: [facility] 07-01-2024 09:26-0500 Body weight 56.41 kg Kassi Ontiveros CNM Work Phone: [facility] 07-01-2024 09:26-0500 Diastolic blood pressure 61 mm[Hg] Kassi Ontiveros CNM Work Phone: [facility] 07-01-2024 09:26-0500 Systolic blood pressure 107 mm[Hg] Kassi Ontiveros CNM Work Phone: [facility] 05-29-2024 11:19-0500 Body mass index (BMI) [Ratio] 21.4 kg/m2 Kassi Ontiveros CNM Work Phone: [facility] 05-29-2024 11:19-0500 Body weight 56.81 kg Kassi Ontiveros CNM Work Phone: [facility] 05-29-2024 11:19-0500 Diastolic blood pressure 76 mm[Hg] Kassi Ontiveros CNM Work Phone: [facility] 05-29-2024 11:19-0500 Systolic blood pressure 127 mm[Hg] Kassi MESSER Work Phone: [facility] 03-07-2023 17:56-0400 Body height 162 cm Jennifer Spring Other Phone: [facility] 03-07-2023 17:56-0400 Body temperature 97.88 [degF] Jennifer Spring Other Phone: [facility] 03-07-2023 17:56-0400 Diastolic blood pressure 73 mm[Hg] Jennifer Spring Other Phone: [facility] 03-07-2023 17:56-0400 Heart rate 84 /min Jennifer Spring Other Phone: [facility] 03-07-2023 17:56-0400 Respiratory rate 16 /min Jennifer Spring Other Phone: [facility] 03-07-2023 17:56-0400 SaO2% (BldA) [Mass fraction] 97 % Jennifer Spring Other Phone: [facility] 03-07-2023 17:56-0400 Systolic blood pressure 110 mm[Hg] Jennifer Spring Other Phone: [facility] 11-20-2022 13:19-0400 Body height 162.5 cm Jennifer Spring Other Phone: [facility] 11-20-2022 13:19-0400 Body temperature 98.24 [degF] Jennifer Spring Other Phone: [facility] 11-20-2022 13:19-0400 Diastolic blood pressure 73 mm[Hg] Jennifer Spring Other Phone: [facility] 11-20-2022 13:19-0400 Heart rate 99 /min Jennifer Spring Other Phone: [facility] 11-20-2022 13:19-0400 Respiratory rate 14 /min Jennifre Spring Other Phone: [facility] 11-20-2022 13:19-0400 SaO2% (BldA) [Mass fraction] 97 % Jennifer Spring Other Phone: [facility] 11-20-2022 13:19-0400 Systolic blood pressure 115 mm[Hg] JenniferFabulyzer Other Phone: [facility] 11-01-2022 11:09-0400 Body height 162 cm JenniferFabulyzer Other Phone: [facility] 11-01-2022 11:09-0400 Body temperature 97.88 [degF] JenniferFabulyzer Other Phone: [facility] 11-01-2022 11:09-0400 Diastolic blood pressure 75 mm[Hg] JenniferFabulyzer Other Phone: [facility] 11-01-2022 11:09-0400 Heart rate 74 /min JenniferFabulyzer Other Phone: [facility] 11-01-2022 11:09-0400 SaO2% (BldA) [Mass fraction] 97 % JenniferFabulyzer Other Phone: [facility] 11-01-2022 11:09-0400 Systolic blood pressure 113 mm[Hg] JenniferFabulyzer Other Phone: [facility] 10-18-2022 16:14-0400 Body height 162.6 cm Mary Romero [employer] Work Phone: [facility] 10-18-2022 16:14-0400 Body mass index (BMI) [Ratio] 18.88 kg/m2 Mary Romero [employer] Work Phone: [facility] 10-18-2022 16:14-0400 Body temperature 98.49 [degF] Mary Romero [employer] Work Phone: [facility] 10-18-2022 16:14-0400 Body weight 49.9 kg Mary Romero [employer] Work Phone: [facility] 10-18-2022 16:14-0400 Diastolic blood pressure 71 mm[Hg] Mary Romero [employer] Work Phone: [facility] 10-18-2022 16:14-0400 Heart rate 80 /min Mary Romero [employer] Work Phone: [facility] 10-18-2022 16:14-0400 Respiratory rate 14 /min Mary Romero [employer] Work Phone: [facility] 10-18-2022 16:14-0400 SaO2% (BldA) [Mass fraction] 97 % Mary Romero [employer] Work Phone: [facility] 10-18-2022 16:14-0400 Systolic blood pressure 107 mm[Hg] Mary Romero [employer] Work Phone: [facility] 10-18-2022 14:41-0400 Body height 162.6 cm Verenice You.i PA-C Work Phone: [facility] Comment on above: pt reported 10-18-2022 14:41-0400 Body mass index (BMI) [Ratio] 18.88 kg/m2 Verenice You.i PA-C Work Phone: [facility] 10-18-2022 14:41-0400 Body weight 49.9 kg Verenice You.i PA-C Work Phone: [facility] Comment on above: pt reported 01-27-2022 19:09-0400 Diastolic blood pressure 44 mm[Hg] [facility] 01-27-2022 19:09-0400 Heart rate 63 /min [facility] 01-27-2022 19:09-0400 Mean blood pressure 62 mm[Hg] [facility] 01-27-2022 19:09-0400 Respiratory rate 13 /min [facility] 01-27-2022 19:09-0400 SaO2% (BldA) [Mass fraction] 100 % [facility] 01-27-2022 19:09-0400 Systolic blood pressure 98 mm[Hg] [facility] 01-27-2022 18:00-0400 Diastolic blood pressure 61 mm[Hg] [facility] 01-27-2022 18:00-0400 Heart rate 71 /min [facility] 01-27-2022 18:00-0400 Mean blood pressure 76 mm[Hg] [facility] 01-27-2022 18:00-0400 Respiratory rate 11 /min [facility] 01-27-2022 18:00-0400 Systolic blood pressure 107 mm[Hg] [facility] 01-27-2022 17:00-0400 Diastolic blood pressure 59 mm[Hg] [facility] 01-27-2022 17:00-0400 Heart rate 78 /min [facility] 01-27-2022 17:00-0400 Mean blood pressure 72 mm[Hg] [facility] 01-27-2022 17:00-0400 SaO2% (BldA) [Mass fraction] 99 % [facility] 01-27-2022 17:00-0400 Systolic blood pressure 99 mm[Hg] [facility] 01-27-2022 16:04-0400 Body temperature 98.24 [degF] [facility] 01-27-2022 16:04-0400 Heart rate 73 /min [facility] 01-27-2022 16:04-0400 Respiratory rate 18 /min [facility] 12-31-2021 18:37-0400 Body temperature 97.88 [degF] Ji Sydney [facility] 12-31-2021 18:37-0400 Diastolic blood pressure 64 mm[Hg] Ji Sydney [facility] 12-31-2021 18:37-0400 Heart rate 79 /min Ji Sydney [facility] 12-31-2021 18:37-0400 Respiratory rate 18 /min Ji Sydney [facility] 12-31-2021 18:37-0400 SaO2% (BldA) [Mass fraction] 99 % Ji Sydney [facility] 12-31-2021 18:37-0400 Systolic blood pressure 110 mm[Hg] Ji Sydney [facility] 11-06-2020 02:56-0400 Diastolic blood pressure 71 mm[Hg] [employer] Other Phone: [facility] 11-06-2020 02:56-0400 Heart rate 72 /min [employer] Other Phone: [facility] 11-06-2020 02:56-0400 Respiratory rate 16 /min [employer] Other Phone: [facility] 11-06-2020 02:56-0400 SaO2% (BldA) [Mass fraction] 98 % [employer] Other Phone: [facility] 11-06-2020 02:56-0400 Systolic blood pressure 110 mm[Hg] [employer] Other Phone: [facility] 02-05-2020 09:13-0400 BP Diastolic 77 mm[Hg] [facility] 02-05-2020 09:13-0400 BP Systolic 115 mm[Hg] [facility] 02-05-2020 09:13-0400 Pulse (Heart Rate) 84 /min [facility] 02-05-2020 09:11-0400 BMI (Body Mass Index) 18.02 kg/m2 [facility] 02-05-2020 09:11-0400 [facility] 02-05-2020 09:11-0400 Height 162.6 cm karen [facility] 02-05-2020 09:11-0400 Pulse Oximetry 98 % Julieth [facility] 02-05-2020 09:11-0400 Respiratory Rate 16 /min [facility] 12-31-2019 11:07-0400 BMI (Body Mass Index) 18.28 kg/m2 [facility] 12-31-2019 11:07-0400 Body Temperature 98.2 [degF] [facility] 12-31-2019 11:07-0400 Body weight 48.31 kg [facility] 12-31-2019 11:07-0400 BP Diastolic 65 mm[Hg] [facility] 12-31-2019 11:07-0400 BP Systolic 100 mm[Hg] [facility] 12-31-2019 11:07-0400 Height 162.6 cm [facility] 12-31-2019 11:07-0400 Pulse (Heart Rate) 66 /min [facility] 12-31-2019 11:07-0400 Pulse Oximetry 96 % [facility] 12-31-2019 11:07-0400 Respiratory Rate 16 /min [facility] 12-29-2019 08:50-0400 BP Diastolic 76 mm[Hg] [facility] 12-29-2019 08:50-0400 BP Systolic 100 mm[Hg] [facility] 12-29-2019 08:49-0400 Pulse (Heart Rate) 96 /min Chintan Solhmy [facility] 12-29-2019 08:38-0400 BMI (Body Mass Index) 18.4 kg/m2 Chintan Solhmy [facility] 12-29-2019 08:38-0400 Body weight 48.63 kg Chintan Solhmy [facility] 12-29-2019 08:38-0400 Height 162.6 cm Chintan Solhmy [facility] 12-29-2019 08:38-0400 Pulse Oximetry 99 % Chintan Ling [facility] 12-23-2019 17:24-0400 BP Diastolic 58 mm[Hg] Kenn [facility] 12-23-2019 17:24-0400 BP Systolic 104 mm[Hg] [facility] 12-23-2019 17:24-0400 Pulse (Heart Rate) 60 /min [facility] 12-23-2019 17:24-0400 Respiratory Rate 18 /min [facility] 12-23-2019 16:45-0400 Pulse Oximetry 100 % [facility] 12-23-2019 14:25-0400 BMI (Body Mass Index) 18.37 kg/m2 [facility] 12-23-2019 14:25-0400 Body Temperature 98.2 [degF] [facility] 12-23-2019 14:25-0400 Body weight 48.53 kg [facility] 12-23-2019 14:25-0400 Height 162.6 cm [facility] 12-16-2019 19:15-0400 BMI (Body Mass Index) 18.37 kg/m2 [facility] [place] [place] 12-16-2019 19:15-0400 Body Temperature 98.01 [degF] [facility] [place] 12-16-2019 19:15-0400 Body weight 48.53 kg [place], [place] 12-16-2019 19:15-0400 BP Diastolic 90 mm[Hg] [facility] [place] 12-16-2019 19:15-0400 BP Systolic 145 mm[Hg] [facility] [place] 12-16-2019 19:15-0400 Height 162.6 cm [place], [place] 12-16-2019 19:15-0400 Pulse (Heart Rate) 70 /min [facility] [place] 12-16-2019 19:15-0400 Pulse Oximetry 100 % Ric [place] 12-16-2019 19:15-0400 Respiratory Rate 16 /min [facility] [place] 03-02-2019 08:44-0400 BMI (Body Mass Index) 19.66 kg/m2 S[facility] [place] 03-02-2019 08:44-0400 Body Temperature 98.2 [degF] [facility] 03-02-2019 08:44-0400 Body weight 50.35 kg Sergio [place] 03-02-2019 08:44-0400 BP Diastolic 61 mm[Hg] [facility] [place] 03-02-2019 08:44-0400 BP Systolic 101 mm[Hg] [facility] [place] 03-02-2019 08:44-0400 Pulse (Heart Rate) 66 /min [facility] [place] 02-24-2019 09:16-0400 BP Diastolic 64 mm[Hg] [facility] 02-24-2019 09:16-0400 BP Systolic 106 mm[Hg] [facility] 02-24-2019 09:16-0400 Pulse (Heart Rate) 79 /min [facility] [place] 02-24-2019 09:16-0400 Pulse Oximetry 100 % [facility] [place] 02-24-2019 09:16-0400 Respiratory Rate 15 /min [facility] [place] 02-24-2019 08:55-0400 Body Temperature 97.9 [degF] [facility] 02-24-2019 07:45-0400 BMI (Body Mass Index) 19.04 kg/m2 [facility] 02-24-2019 07:45-0400 Body weight 48.76 kg [facility] 02-24-2019 07:45-0400 Height 160 cm [facility] 02-04-2019 13:03-0400 BMI (Body Mass Index) 18.3 kg/m2 [facility] 02-04-2019 13:03-0400 Body Temperature 98.6 [degF] [facility] 02-04-2019 13:03-0400 Body weight 48.17 kg [facility] 02-04-2019 13:03-0400 BP Diastolic 70 mm[Hg] [facility] 02-04-2019 13:03-0400 BP Systolic 115 mm[Hg] [facility] 02-04-2019 13:03-0400 Height 162.3 cm [facility] 02-04-2019 13:03-0400 Pulse (Heart Rate) 90 /min [facility] [place] 02-04-2019 13:03-0400 Pulse Oximetry 97 % Sergio Gray [facility] 01-28-2019 03:54-0400 BP Diastolic 53 mm[Hg] Jeffrey Colon [facility] 01-28-2019 03:54-0400 BP Systolic 101 mm[Hg] Jeffrey Colon [facility] 01-28-2019 03:54-0400 Pulse (Heart Rate) 56 /min Jeffrey Colon [facility] 01-28-2019 03:54-0400 Pulse Oximetry 99 % Jeffrey Colon [facility] 01-28-2019 03:54-0400 Respiratory Rate 16 /min Jeffrey Colon [facility] 01-27-2019 23:04-0400 BMI (Body Mass Index) 18.37 kg/m2 Jeffrey Colon [facility] 01-27-2019 23:04-0400 Body weight 48.53 kg Jeffrey Colon [facility] 01-27-2019 23:04-0400 Height 162.6 cm Jeffrey Colon [facility] 01-27-2019 22:58-0400 Body Temperature 98.29 [degF] Jeffrey Colon [facility] 11-19-2018 11:27-0400 BMI (Body Mass Index) 18.71 kg/m2 [facility] 11-19-2018 11:27-0400 Body Temperature 98.4 [degF] [facility] 11-19-2018 11:27-0400 BP Diastolic 72 mm[Hg] [facility] 11-19-2018 11:27-0400 BP Systolic 109 mm[Hg] [facility] 11-19-2018 11:27-0400 Height 162.6 cm [facility] 11-19-2018 11:27-0400 Pulse (Heart Rate) 82 /min [facility] 11-19-2018 11:27-0400 Pulse Oximetry 98 % [facility] 11-19-2018 11:27-0400 Respiratory Rate 18 /min [facility] 11-19-2018 11:27-0400 Weight 49.44 kg [facility] 11-09-2018 08:45-0400 Respiratory Rate 12 /min [facility] 11-09-2018 08:39-0400 Body Temperature 98.2 [degF] Emily [facility] 11-09-2018 08:39-0400 BP Diastolic 58 mm[Hg] Emily [facility] 11-09-2018 08:39-0400 BP Systolic 96 mm[Hg] [facility] 11-09-2018 08:39-0400 Pulse (Heart Rate) 60 /min [facility] 11-09-2018 08:39-0400 Pulse Oximetry 98 % [facility] 11-05-2018 17:40-0400 BMI (Body Mass Index) 20.4 kg/m2 [facility] 11-05-2018 17:40-0400 Body weight 53.9 kg [facility] 11-05-2018 17:40-0400 Height 162.6 cm [facility] 11-05-2018 14:39-0400 Respiratory rate 0 /min [facility] Encounters Encounter Date Encounter Type Care Provider Facility Start: 01-11-2025 End: 01-11-[address] Mimi Thomas DO [facility] Start: 01-11-2025 End: 01-11-2025 Patient encounter procedure Yvrose Mcmillan [facility] Work Phone: Start: 01-07-2025 End: 01-07-[address] Mimi Thomas DO -[facility] Work Phone: Start: 01-07-2025 End: 01-07-[address] Mimi Thomas DO Work Phone: -[facility] Start: 12-30-2024 End: 12-30-2024 Patient encounter procedure Dr. Mimi Thomas DO -[facility] Work Phone: Start: 12-30-2024 End: 12-30-[address] Mimi Thomas DO Work Phone: -[facility] Start: 12-23-2024 End: 12-23-[address] Mimi Thomas DO -[facility] Work Phone: Start: 12-23-2024 End: 12-23-[address] Mimi Thomas DO Work Phone: -[facility] Start: 12-15-2024 End: 12-15-[address] Mimi Thomas DO Work Phone: -Laboratory Specimen Start: 12-15-2024 End: 12-15-[address] Leonor Phillips MD -Laboratory Specimen Work Phone: Start: 12-15-2024 End: 12-15-[address] Leonor Phillips MD -[facility] Work Phone: Start: 12-15-2024 End: 12-15-[address] Mimi Thomas DO Work Phone: [facility] Work Phone: Start: 12-15-2024 End: 12-15-2024 ambulatory No Primary Care Physician Facility:[facility] Start: 12-11-2024 End: 12-11-[address] Mimi Thomas DO Work Phone: [facility] Work Phone: Start: 12-11-2024 End: 12-11-[address] Leonor Phillips MD -[facility] Work Phone: Start: 12-11-2024 End: 12-11-2024 ambulatory No Primary Care Physician Facility:[facility] Start: 12-09-2024 End: 12-09-[address] Leonor Phillips MD -[facility] Work Phone: Start: 12-09-2024 End: 12-09-[address] Mimi Thomas DO Work Phone: [facility] Work Phone: Start: 11-25-2024 End: 11-25-2024 Patient encounter procedure Ramya Voss NP-C -[facility] Work Phone: Start: 11-25-2024 End: 11-25-[address] Mimi Thomas DO Work Phone: [facility] Work Phone: Start: 11-25-2024 End: 11-25-2024 ambulatory Ramya Voss [employer] Facility:[facility] Start: 11-11-2024 End: 11-11-[address] Mimi Thomas DO -[facility] Work Phone: Start: 11-11-2024 End: 11-11-[address] Mimi Thomas DO Work Phone: [facility] Work Phone: Start: 10-27-2024 End: 10-27-2024 Patient encounter procedure Yvrose Mcmillan CNM -[facility] Work Phone: Start: 10-27-2024 End: 10-27-2024 ambulatory No Primary Care Physician Facility:[facility] Start: 10-15-2024 End: 10-15-[address] Mimi Thomas DO Work Phone: [facility] Work Phone: Start: 10-15-2024 End: 10-15-2024 Patient encounter procedure Ramya Voss NP-C -Laboratory, Specimen Work Phone: Start: 10-15-2024 End: 10-15-2024 Patient encounter procedure Ramya Voss [employer]PENTER MATE-C -[facility] Work Phone: Start: 10-15-2024 End: 10-15-2024 ambulatory No Primary Care Physician Facility:[facility] Start: 10-15-2024 End: 10-15-2024 ambulatory No Primary Care Physician Facility:[facility] Start: 10-13-2024 End: 10-13-[address] Mimi Thomas DO Work Phone: [facility] Work Phone: Start: 10-13-2024 End: 10-13-[address] Leonor Phillips MD -[facility] Work Phone: Start: 10-12-2024 End: 10-12-2024 Office outpatient visit 15 minutes Sandra Church [facility] Work Phone: [facility] Comment on above: Sore throat (Primary Dx); Viral pharyngitis Start: 10-12-2024 End: 10-13-2024 ambulatory SANDRA AYALA [facility] Start: 10-08-2024 End: 10-08-2024 Emergency department patient visit ALBAARABELLA QING [facility] Start: 09-23-2024 Non-patient / Non-visit Dr. Maylin Phillips MD -[facility] Start: 09-22-2024 Non-patient / Non-visit Dr. Olman Thomas DO -[facility] Start: 09-22-2024 ambulatory Mimi Cummings cility:[facility] Start: 09-22-2024 End: 09-23-2024 Evaluation and management of inpatient Dr. Mimi Thomas DO [facility] Work Phone: Start: 09-22-2024 End: 09-22-2024 Emergency department patient visit Jamari Delgadillo MD Work Phone: [facility] Comment on above: Acute pyelonephritis (Primary Dx) Start: 09-22-2024 End: 09-22-2024 Patient encounter procedure Ramya Voss NP-C -[facility] Work Phone: Start: 09-22-2024 End: 09-22-2024 ambulatory Ramya Voss [employer] Facility:[facility] Start: 08-26-2024 End: 08-26-[address] Leonor Phillips MD -[facility] Work Phone: Start: 08-26-2024 End: 08-26-2024 ambulatory Leonor Phillips Facility:[facility] Start: 08-08-2024 End: 08-09-2024 Emergency department patient visit Jamari Delgadillo MD Work Phone: [facility] Comment on above: Abdominal pain, left upper quadrant (Primary Dx) Start: 08-06-2024 End: 08-06-2024 ambulatory MICHAELKAYLAH GUARDADOADAMSON [facility] Start: 07-28-2024 End: 07-28-2024 ambulatory Mimi Thomas Facility:[facility] Start: 07-28-2024 End: 07-28-[address] Mimi Thomas DO -[facility] Work Phone: Start: 07-01-2024 End: 07-01-2024 Patient encounter procedure Ramya Voss [employer]ATE-C -[facility] Work Phone: Start: 07-01-2024 End: 07-01-2024 ambulatory Ramya Voss NP Facility:[facility] Start: 06-19-2024 End: 06-19-2024 Patient encounter procedure Kassi Weston CNM -Lab, [facility] Start: 06-19-2024 End: 06-19-2024 ambulatory Kassi Ontiveros Facility:[facility] Start: 05-29-2024 End: 05-29-2024 Patient encounter procedure Kassi Ontiveros CNM -Laboratory, Specimen Work Phone: Start: 05-29-2024 End: 05-29-2024 Patient encounter procedure Kassi Ontiveros CNM -[facility] Work Phone: Start: 05-29-2024 End: 05-29-2024 ambulatory Kassi Ontiveros Facility:[facility] Start: 05-29-2024 End: 05-29-2024 ambulatory Kassi [place] Facility:[facility] Start: 04-14-2024 ambulatory Mercedez Harris y:[facility] Start: 03-18-2024 End: 03-18-2024 [facility] Start: 03-15-2024 End: 03-15-2024 Emergency department patient visit PHYSICIAN [facility] Start: 03-07-2023 End: 03-07-2023 Emergency department patient visit Kevin Almeida [facility] Start: 11-20-2022 End: 11-20-2022 Emergency department patient visit Kevin Almeida Facility:[id number] Start: 11-01-2022 End: 11-01-2022 Emergency department patient visit Jia Lindsay [facility] Start: 10-18-2022 End: 10-18-2022 Office outpatient visit 25 minutes Mary Romero CNP Work Phone: [facility] Comment on above: Acute vaginitis (Melvina maddison Dx); Vaginal odor; Screening examination for STD (sexually transmitted disease); Electronic cigarette use Start: 10-18-2022 End: 10-18-2022 Telemedicine consultation with patient Verenice Eleazar Sinha PA-C Work Phone: [facility] Comment on above: Vaginal Odor (Primar y Dx) Start: 09-25-2022 End: 09-25-2022 Emergency department patient visit Kevin Almeida Facility:[id number] Start: 02-28-2022 ambulatory Ms. Jennifer Haley Facility:[id number] Start: 01-27-2022 End: 01-27-2022 Emergency department patient visit Urielarabella Ro Lauri [facility] Start: 12-31-2021 End: 12-31-2021 Emergency department patient visit Ji Grimes [facility] Start: 02-10-2021 ambulatory JENNIFER HALEY [facility] Ambulatory Start: 11-06-2020 End: 11-06-2020 Emergency department patient visit Arianna Traylor ED 03 Start: 02-05-2020 End: 02-09-2020 ambulatory JULIETH WATTERS [facility] Start: 02-05-2020 End: 02-05-2020 Office outpatient new 45 minutes Julieth Watters Work Phone: [facility] Comment on above: Syncope, unspecified syncope type Start: 01-01-2020 End: 01-01-2020 Subsequent hospital visit by physician Chintan Ling Work Phone: [facility] Comment on above: Syncope, unspecified syncope type; Palpitations Start: 12-31-2019 End: 12-31-2019 Office outpatient visit 15 minutes Jennifer SingletonKajal Haley Work Phone: [facility] Comment on above: Syncope, unspecified syncope type (Primary Dx) Start: 12-29-2019 End: 12-29-2019 Office outpatient new 45 minutes Kenn Valdez Work Phone: [facility] Comment on above: Syncope, unspecified syncope type (Primary Dx); Palpitations Start: 12-24-2019 End: 12-24-2019 Documentation procedure Brooke Caruso [facility] Comment on above: ED Follow-up Start: 12-23-2019 End: 12-23-2019 Emergency department patient visit Kenn Valdez Work Phone: [facility] Comment on above: Syncope, unspecified syncope type (Primary Dx) Start: 12-16-2019 End: 12-16-2019 [facility] Start: 12-16-2019 End: 12-16-2019 Emergency department patient visit Ric Ellen Lantigua Work Phone: [facility] ED Comment on above: Syncope and collapse (Primary Dx); Contusion of scalp, initial encounter Start: 03-02-2019 End: 03-02-2019 Office outpatient visit 25 minutes Sergio Gray Work Phone: [facility] Comment on above: Chronic gastritis wi thout bleeding, unspecified gastritis type (Primary Dx); GERD without esophagitis; Biliary dyskinesia Start: 02-24-2019 End: 02-24-2019 Subsequent hospital visit by physician Sergio Gray Work Phone: [facility] Comment on above: Abdominal pain; BRBPR (bright red blood per rectum); Weight loss; Nausea; Abdominal pain, unspecified abdominal location; BRBPR (bright red blood per rectum); Weight loss; Nausea Start: 02-11-2019 End: 02-11-2019 Subsequent hospital visit by physician Sergio Gray Work Phone: [facility] Comment on above: Abdominal pain, unsp ecified abdominal location; Weight loss; Nausea Start: 02-04-2019 End: 02-04-2019 Office outpatient new 45 minutes Sergio Gray Work Phone: [facility] Comment on above: Abdominal pain, unsp ecified abdominal location (Primary Dx); BRBPR (bright red blood per rectum); Weight loss; Nausea Start: 01-27-2019 End: 01-28-2019 Emergency department patient visit Jeffrey Colon Work Phone: [facility] Comment on above: Acute UTI (Primary D x); Acute GI bleeding Start: 11-19-2018 End: 11-19-2018 Office outpatient new 20 minutes Jennifer Haley Work Phone: [facility] Comment on above: Sepsis, due to unspe cified organism (HCC) (Primary Dx); Environmental allergies; Body mass index (BMI) of 5th to less than 85th percentile for age in patient 18 years to less than 21 years of age Start: 11-11-2018 End: 11-11-2018 Patient Outreach Kathrin Aguilar [facility] Comment on above: Transition Of Care ( Chart review - initial) Start: 11-05-2018 End: 11-09-2018 Evaluation and management of inpatient Emily Nickerson Work Phone: [facility] Comment on above: Acute UTI (Primary D x); Sepsis, due to unspecified organism (HCC) Procedures Date Procedure Procedure Detail Performing Clinician Start: 12-15-2024 Beta-hemolytic Strep tococcus culture Dr. Mimi Thomas DO Work Phone: Start: 12-11-2024 Ultrasound scan for growth Dr. Mimi Thoams DO Work Phone: Start: 10-15-[address] Antonette Thomas DO Work Phone: Start: 10-13-2024 Lymphocyte percent differential count Dr. Mimi Thomas DO Work Phone: Start: 10-13-2024 Red blood cell morphology Dr. Mimi Thomas DO Work Phone: Start: 10-13-2024 Serologic test for syphilis Dr. Mimi Thomas DO Work Phone: Start: 10-12-2024 Heterophile antibodi es screen Sandra Church [employer] Work Phone: Start: 10-12-2024 Iadna streptococcus group a amplified probe tq Sandra Church [employer] Work Phone: Start: 09-23-2024 Ultrasound scan for growth Kassi Ontiveros [facility] Work Phone: Start: 09-23-2024 Blood count [...] Start: 05-29-2024 Urine culture Kassi Manning ritaeastonel [facility] Work Phone: Start: 12-23-2019 Choriogonadotropin ( [...] Ric Lantigua Work Phone: Start: 02-24-2019 Colonoscopy [employer] Work Phone: Start: 02-24-2019 Cul bact aerobic add l meths definitive ea isol [employer] Work Phone: Start: 02-24-2019 Choriogonadotropin ( test) [Presence] in Urine [employer] Work Phone: Start: 02-24-2019 Endoscopy of esophagus [employer] Work Phone: Start: 02-11-2019 Hepatobil syst imag inc gb w/pharma intervenj [employer] Work Phone: Start: 01-28-2019 Ct abdomen & [...] blood count with white cell differential, automated [employer] Work Phone: Start: 11-09-2018 Complete blood count with white cell differential, manual [employer] Work Phone: Start: 11-08-2018 Ct abdomen & pelvis w/contrast material Brissa Dumont Work Phone: Start: 11-08-2018 Complete blood count with white cell differential, automated [employer] Carlos [employer] Work Phone: Start: 11-08-2018 Complete blood count with white cell differential, manual [employer] Work Phone: Start: 11-07-2018 Complete blood count with white cell differential, automated [email or web address] Work Phone: Start: 11-07-2018 Complete blood count [...] metabolic 2000 panel - Serum or Plasma [employer] Work Phone: Start: 11-06-2018 Complete blood count with white cell differential, automated [employer] Work Phone: Start: 11-06-2018 Complete blood count with white cell differential, manual [employer] Work Phone: Start: 11-06-2018 Magnesium [Mass/volu me] in Serum or Plasma Magda Crisostomo Work Phone: Start: 11-06-2018 Red blood cell morphology [employer] Work Phone: Start: 11-06-2018 Ct abdomen & pelvis w/o contrast material Magda Hutsonley Kranthi Work Phone: Start: 11-06-2018 Bacteria identified in Unspecified specimen by [employer] culture Magda Crisostomo Work Phone: Start: 11-05-2018 End: 11-05-2018 Bacteria identified in Blood by Culture Emily Nickerson Work Phone: Start: 11-05-2018 Gases blood ph direc t ad xcpt pulse oximitry mEily Nickerson Work Phone: Start: 11-05-2018 Radiologic exam [...] H/O splenectomy History of splenectomy Kassi Ontiveros [facility] Work Phone: Comment on above: 12yo, [...] 60 yrs+ (1 - 1-dose 75+ series) [facility] Start: 02-19-2050 Shingles vaccine (1 of 2) Shingles vaccine (1 of 2) [facility] Start: 04-01-2027 DTaP/Tdap/Td vaccine (7 - Td or Tdap) DTaP/Tdap/Td vaccine (7 - Td or Tdap) [facility] Start: 04-01-2027 DTaP/Tdap/Td vaccine (7 - Td) DTaP/Tdap/Td vaccine (7 - Td) [place] Start: 04-01-2027 Tetanus vaccination [facility] Start: 02-22-2025 Influenza vaccination Influenza Vaccine (Season Ended) [facility] Start: 01-22-2025 Influenza vaccination Flu vaccine (Season Ended) [facility] Start: 01-11-2025 Nonstress test [facility] Start: 01-11-2025 Obstetric monitoring [facility] Start: 01-11-2025 Vital signs measurements [facility] Start: 01-11-2025 [facility] Start: 01-11-2025 Patient discharge [facility] Start: 12-15-2024 Streptococcus agalactiae [Presence] in Unspecified specimen by Organism specific culture [facility] Start: 12-15-2024 Group B Streptococcus Culture Group B Streptococcus Culture [facility] Start: 11-25-2024 CBC W Auto Differential panel - Blood [facility] Start: 10-08-2024 Tdap Vaccine during Tdap Vaccine during [facility] Start: 09-23-2024 Application of intermittent pneumatic compression device [facility] Start: 09-23-2024 Patient discharge [facility] Start: 09-23-2024 [facility] Start: 09-22-2024 Admission procedure [facility] Start: 09-22-2024 Nonstress test [facility] Start: 09-22-2024 Obstetric monitoring [facility] Start: 09-22-2024 Vital signs measurements [facility] Start: 09-22-2024 [facility] Start: 02-23-2024 COVID-19 Vaccine ( season) COVID-19 Vaccine ( season) [facility] Start: 01-23-2024 Influenza vaccination Flu vaccine (#1) [facility] Start: 10-19-2023 Screening for Chlamydia trachomatis Chlamydia Screening [facility] Start: 02-22-2023 Influenza vaccination Sequential Influenza Vaccine (Season Ended) [facility] Start: 02-19-2021 Screening for malignant neoplasm of cervix Pap smear [facility] Start: 07-04-2020 End: 07-04-2020 Office Visit 07/04/2020 Office Visit Primary Care Jennifer Haley CNP [address] [place] [address] [phone] [facility] Start: 03-08-2020 End: 03-08-2020 Office Visit 03/08/2020 Office Visit Cardiology Chintan Ling MD [address] [place] [address] [phone] [facility] Start: 02-23-2020 Influenza vaccination Flu vaccine (Season Ended) [place] Start: 02-23-2020 Influenza vaccination given Sequential Influenza Vaccine (#1) [facility] Start: 02-05-2020 Screening for Chlamydia trachomatis Chlamydia Screening [facility] Start: 02-05-2020 End: 02-05-2020 Office Visit 02/05/2020 Office Visit Neurology Julieth Watters MD [address] [address] [phone] [facility] Start: 01-01-2020 End: 01-01-2020 Appointment 01/01/2020 Appointment Cardiology Chintan Ling MD [address] [place] [address] [phone] [facility] Start: 12-31-2019 End: 12-31-2019 Office Visit 12/31/2019 Office Visit Primary Care Jennifer Haley CNP [address] [place] [address] [phone] [facility] Start: 11-08-2019 Depression screening using PHQ-9 (Patient Health Questionnaire 9) score [facility] Start: 04-01-2019 End: 04-01-2019 Office Visit 04/01/2019 Office Visit General Surgery Sergio Gray MD [address] [address] [phone] [facility] Start: 02-24-2019 End: 02-24-2019 Hospital Encounter [facility] Comment on above: Abdominal pain; BRBPR (bright red blood per rectum); Weight loss; Nausea ESOPHAGOGASTRODUODEN OSCOPY Start: 02-22-2019 Influenza vaccination given [facility] Start: 02-19-2019 Pneumococcal 0-49 years Vaccine (1 of 2 - PCV) Pneumococcal 0-49 years Vaccine (1 of 2 - PCV) [facility] Start: 02-19-2019 Pneumococcal Vaccine: Ped or At-Risk (1 of 2 - PCV) Pneumococcal Vaccine: Ped or At-Risk (1 of 2 - PCV) [facility] Start: 12-22-2018 End: 12-22-2018 Office Visit 12/22/2018 Office Visit Primary Care Jennifer Haley CNP [address] [place] [address] [facility] Start: 11-19-2018 End: 11-19-2018 Office Visit 11/19/2018 Office Visit Primary Care Jennifer Haley CNP [address] [place] [address] [phone] [facility] Start: 04-01-2018 History and physical examination, annual for health maintenance Wellness Visit [facility] Start: 02-19-2018 Hepatitis C antibody, confirmatory test Hepatitis C Screening [facility] Start: 02-19-2018 Hepatitis C screening [facility] Start: 04-29-2017 Meningococcal B vaccine (2 of 2 - Increased Risk Bexsero 2-dose series) Meningococcal B vaccine (2 of 2 - Increased Risk Bexsero 2-dose series) [place] Start: 04-29-2017 Meningococcal B vaccine (2 of 4 - Increased Risk Bexsero 2-dose series) Meningococcal B vaccine (2 of 4 - Increased Risk Bexsero 2-dose series) [facility] Start: 04-29-2017 Meningococcal B vaccine (2 of 5 - Increased Risk Bexsero 3-dose series) Meningococcal B vaccine (2 of 5 - Increased Risk Bexsero 3-dose series) [facility] Start: 05-17-2016 Meningococcal (ACWY) vaccine (2 - Risk 2-dose series) Meningococcal (ACWY) vaccine (2 - Risk 2-dose series) [facility] Start: 2016 Screening for Chlamydia trachomatis [facility] Start: 02-19-2015 HIV screening [facility] Start: 2012 Depression Screen Depression Screen [facility] Start: 02-19-2011 HPV vaccine (1 - 2-dose series) HPV vaccine (1 - 2-dose series) [place] Start: 02-19-2006 Pneumococcal 0-64 years Vaccine (1 of 3 - PCV13) Pneumococcal 0-64 years Vaccine (1 of 3 - PCV13) [place] Start: 02-19-2006 Pneumococcal Vaccine: Ped or At-Risk (1 - PCV) Pneumococcal Vaccine: Ped or At-Risk (1 - PCV) [facility] Start: 2004 Varicella vaccine (2 of 2 - 2-dose childhood series) Varicella vaccine (2 of 2 - 2-dose childhood series) [facility] Start: 02-19-2003 History and physical examination, annual for health maintenance Wellness Visit [facility] Start: 2000 COVID-19 Vaccine (#1) COVID-19 Vaccine (#1) [facility] Start: 2000 Depression screening using PHQ-9 (Patient Health Questionnaire 9) score Depression Screening (PHQ9) [facility] Start: 2000 Screening for Chlamydia trachomatis Chlamydia Screening [facility] Start: 2000 Screening for malignant neoplasm of cervix Pap Smear [facility] 12 lead ECG ECG 12 Lead ECG Routine Syncope, unspecified syncope type Ordered: 12/29/2019 [facility] Comment on above: Ordered: 12/29/2019 Bacteria identified Cx Nom (Bld) [facility] Beta-hemolytic Strep tococcus culture [facility] End: 09-22-2024 Blood Culture 1 [facility] Comment on above: One Time for 1 Occurrences starting 06/2024 until 09/22/2024 End: 12-29-2020 Cardiac event recording Cardiac event monitor Cardiac Services Routine Syncope, unspecified syncope type Palpitations 1 Occurrences starting 12/29/2019 until 12/29/2020 [facility] Comment on above: 1 Occurrences starting 12/29/2019 until 12/29/2020 End: 01-01-2020 Cardiac event recording Cardiac event monitor Cardiac Services Routine Syncope, unspecified syncope type Palpitations Once for 1 Occurrences starting 01/01/2020 until 01/01/2020 [facility] Comment on above: Once for 1 Occurrences starting 01/01/20 until 01/01/2020 Cast care: wet Wet Preparation Microbiology Routine Vaginal odor Screening examination for STD (sexually transmitted disease) 10/18/2022 4:33 PM EDT [facility] CBC W Auto Different ial panel - Blood [facility] End: 12-16-2019 CT Head WO Contrast CT Head WO Contrast Imaging STAT Once for 1 Occurrences starting 12/16/2019 until 12/16/2019 [facility] Comment on above: Once for 1 Occurrences starting 12/16/19 until 12/16/2019 CT Head WO Contrast CT Head WO C ontrast Imaging STAT 12/16/2019 8:10 PM EDT [facility] [place] [place] End: 09-22-2024 Culture, Blood 2 [facility] Comment on above: One Time for 1 Occurrences starting 06/2024 until 09/22/2024 End: 09-22-2024 Culture, Urine [facility] Comment on above: Once for 1 Occurrences starting 09/23/19 25 until 09/22/2024 End: 02-05-2021 EEG (STANDARD) EEG (Standard) Neurology Routine Syncope, unspecified syncope type 1 Occurrences starting 02/05/2020 until 02/05/2021 [facility] Comment on above: 1 Occurrences starting 02/05/2020 until 02/05/2021 EKG 12 Lead EKG 12 Lead ECG Routine 12/16/2019 7:25 PM [facility] [place] Erythrocyte mean cor puscular volume determination [facility] End: 01-27-2019 Gastrointestinal pathogens DNA and RNA panel - Stool by CONOR with non-probe detection Stool/GI PCR Panel Microbiology Routine Once for 1 Occurrences starting 01/27/2019 until 01/27/2019 [facility] Comment on above: Once for 1 Occurrences starting 01/28/20 19 until 01/27/2019 Hematocrit [Volume F raction] of Blood [facility] Hemoglobin [Mass/volume] in Blood [facility] Leukocytes [#/volume] in Blood [facility] Mean corpuscular hem oglobin concentration determination [facility] Mean corpuscular hem oglobin determination [facility] Measurement of gluco se 2 hours after glucose challenge for glucose tolerance test [facility] End: 02-05-2021 MR Brain With And Without Contrast MR Brain With And Without Contrast Imaging Routine Syncope, unspecified syncope type 1 Occurrences starting 02/05/2020 until 02/05/2021 [facility] Comment on above: 1 Occurrences starting 02/05/2020 until 02/05/2021 End: 10-19-2023 Neisseria gonorrhoeae nucleic acid detection Chlamydia/Gonorrhoea e Amplified RNA Microbiology Routine Vaginal odor Screening examination for STD (sexually transmitted disease) 1 Occurrences starting 10/18/2022 until 10/19/2023 [facility] Work Phone: Comment on above: 1 Occurrences starting 10/18/2022 until 10/19/2023 Neisseria gonorrhoea e nucleic acid detection Chlamydia/Gonorrhoea e Amplified RNA Microbiology Routine Vaginal odor Screening examination for STD (sexually transmitted disease) 10/18/2022 4:33 PM EDT [facility] Neutrophil count [facility] Neutrophil percent d ifferential count [facility] End: 02-05-2020 NM Hepatobiliary With Ejection Fraction NM Hepatobiliary With Ejection Fraction Imaging Routine Abdominal pain, unspecified abdominal location Weight loss Nausea 1 Occurrences starting 02/04/2019 until 02/05/2020 [facility] Comment on above: 1 Occurrences starting 02/04/2019 until 02/05/2020 Patient Education Kick Counts ED False Labor OB Triage: Return to Hospital or Notify Physician if you Experience: [facility] Work Phone: Platelets [#/volume] in Blood [facility] End: 11-08-2018 Procalcitonin [Mass/Vol] Procalcitonin Microbiology Routine Once for 1 Occurrences starting 11/08/2018 until 11/08/2018 [facility] Comment on above: Once for 1 Occurrences starting 11/09/19 19 until 11/08/2018 Procalcitonin [Mass/Vol] Procalc itonin Microbiology Routine 11/08/2018 2:55 PM EDT [facility] Procedure on tissue specimen [facility] Comment on above: Once for 1 Occurrences starting 02/25/20 19, 1 completed Red blood cell count [facility] Red cell distributio n width determination [facility] Serologic test for syphilis [facility] Streptococcus agalac tiae [Presence] in Unspecified specimen by Organism specific culture [facility] Ultrasound scan for growth [facility] Gallbladder [facility] End: 09-22-[address] [facility] Comment on above: Once for 1 Occurrences starting 09/23/19 until 09/22/2024 [facility] Immunizations Immunization Date Immunization Notes Care Provider Fa [facility] 10-27-2024 tetanus toxoid, redu olga diphtheria toxoid, and acellular pertussis vaccine, adsorbed Dr. Mimi Thomas DO Work Phone: [facility] 04-01-2017 hepatitis A vaccine, pediatric/adolescent dosage, 2 dose schedule [facility] 04-01-2017 influenza, injectabl e, quadrivalent, preservative free [facility] 04-01-2017 meningococcal B vacc ine, recombinant, OMV, adjuvanted [facility] 04-01-2017 tetanus toxoid, redu olga diphtheria toxoid, and acellular pertussis vaccine, adsorbed [facility] 04-01-2017 influenza virus vacc ine, unspecified formulation Sandra Church CNP Work Phone: [facility] 10-15-2016 Human Papillomavirus 9-valent vaccine [facility] 06-11-2016 Human Papillomavirus 9-valent vaccine [facility] 03-22-2016 hepatitis A vaccine, pediatric/adolescent dosage, 2 dose schedule [facility] 03-22-2016 Human Papillomavirus 9-valent vaccine [facility] 03-22-2016 influenza, injectabl e, quadrivalent, preservative free [facility] 03-22-2016 meningococcal polysaccharide (groups A, C, Y and W-135) diphtheria toxoid conjugate vaccine (MCV4P) [facility] 03-22-2016 meningococcal vaccin e of unknown formulation and unknown serogroups [facility] [place] 07-14-2012 influenza, injectabl e, quadrivalent, preservative free [facility] 07-14-2012 influenza, seasonal, injectable [facility] 03-15-2005 diphtheria, tetanus toxoids and acellular pertussis vaccine [facility] 03-15-2005 diphtheria, tetanus toxoids and acellular pertussis vaccine, unspecified formulation [facility] 03-15-2005 measles, mumps and rubella virus vaccine [facility] 03-15-2005 poliovirus vaccine, inactivated [facility] 06-09-2001 diphtheria, tetanus toxoids and acellular pertussis vaccine [facility] 06-09-2001 diphtheria, tetanus toxoids and acellular pertussis vaccine, unspecified formulation [facility] 06-09-2001 varicella virus vaccine [facility] 04-19-2001 diphtheria, tetanus toxoids and acellular pertussis vaccine [facility] 03-12-2001 haemophilus influenz ae type b conjugate and Hepatitis B vaccine [facility] 03-12-2001 haemophilus influenz ae type b vaccine, PRP-T conjugate [facility] 03-12-2001 hepatitis B vaccine, pediatric or pediatric/adolescent dosage [facility] 03-12-2001 measles, mumps and rubella virus vaccine [facility] 03-12-2001 poliovirus vaccine, inactivated [facility] 2000 diphtheria, tetanus toxoids and acellular pertussis vaccine [facility] 2000 diphtheria, tetanus toxoids and acellular pertussis vaccine, unspecified formulation [facility] 2000 diphtheria, tetanus toxoids and acellular pertussis vaccine [facility] 2000 diphtheria, tetanus toxoids and acellular pertussis vaccine, unspecified formulation [facility] 2000 haemophilus influenz ae type b conjugate and Hepatitis B vaccine [facility] 2000 haemophilus influenz ae type b vaccine, PRP-T conjugate [facility] 2000 hepatitis B vaccine, pediatric or pediatric/adolescent dosage [facility] 2000 haemophilus influenz ae type b conjugate and Hepatitis B vaccine [facility] 2000 haemophilus influenz ae type b vaccine, PRP-T conjugate [facility] 2000 poliovirus vaccine, inactivated [facility] 2000 diphtheria, tetanus toxoids and acellular pertussis vaccine [facility] 2000 diphtheria, tetanus toxoids and acellular pertussis vaccine, unspecified formulation [facility] 2000 haemophilus influenz ae type b conjugate and Hepatitis B vaccine [facility] 2000 haemophilus influenz ae type b vaccine, PRP-T conjugate [facility] 2000 hepatitis B vaccine, pediatric or pediatric/adolescent dosage [facility] 2000 poliovirus vaccine, inactivated [facility] Payers Date Payer Category Payer Medicaid (Managed Care) [facility] [id number] 2024 Self-pay 2023 Unknown [id number] 2022 Unknown [id number] 2019 Unknown 2017 Unknown [facility] HMO/MEGHNA/ MEGHNA PLUS/CHOICE PLUS xxxxxxxxx 2017-Present [id number] 2017 Unknown [id number] 2000 Unknown [id number] 2.16.840.1.411995.3.579.2. 185 2000 Unknown [id number] 2.16.840.1.592084.3.579.2. 903 2000 Unknown [id number] 2.16.840.1.963538.3.579.2. 356 2000 Unknown [id number] 2.16.840.1.998877.3.579.2. 1069 2000 Unknown [id number] 2.16.840.1.095479.3.579.2. 1069 2000 Unknown [id number] 2.16.840.1.781706.3.579.2. 1069 2000 Unknown [id number] 2.16840.1.218199.3.579.2. 902 2000 Unknown [id number] 2.840.1.157686.3.579.2. 479 2000 Unknown [id number] 2.16840.1.541382.3.579.2. 174 2000 Unknown [id number] 2.16840.1.429518.3.579.2. 174 2000 Unknown [id number] 2.16840.1.865101.3.579.2. 903 2000 Unknown [id number] 2.16840.1.566429.3.579.2. 902 2000 Unknown [id number] 2.16.840.1.977937.3.579.2. 902 Unknown [id number] 2.16.840.1.853927.3.579.2. 462 Unknown [id number] 2.16.840.1.168721.3.579.2. 462 Unknown [id number] 2.16.840.1.806971.3.579.2. 462 Unknown [id number] 2.16840.1.617921.3.579.2. 462 Unknown [id number] 2.16.840.1.603329.3.579.2. 462 Unknown [id number] 2.16.840.1.466120.3.579.2. 462 Unknown [id number] 2.16.840.1.841242.3.579.2. 462 Unknown [id number] 2.16.840.1.223999.3.579.2. 462 Unknown [id number] 2.16.840.1.652761.3.579.2. 462 Unknown [id number] 2.16.840.1.878312.3.579.2. 462 Unknown [id number] 2.16.840.1.253043.3.579.2. 462 Unknown [id number] 2.16.840.1.564882.3.579.2. 462 Unknown [id number] 2.16.840.1.039188.3.579.2. 462 Unknown [id number] 2.16840.1.628781.3.579.2. 462 Unknown [id number] 2.16.840.1.069517.3.579.2. 462 Unknown [id number] 2.16.840.1.222702.3.579.2. 462 Unknown [id number] 2.16.840.1.521342.3.579.2. 462 Unknown [id number] 2.16.840.1.420676.3.579.2. 462 Unknown [id number] 2.16.840.1.867963.3.579.2. 462 Unknown [id number] 2.16.840.1.453122.3.579.2. 462 Unknown [id number] 2.16.840.1.618774.3.579.2. 462 Unknown [id number] 2.16.840.1.565718.3.579.2. 462 Unknown [id number] 2.16.840.1.024729.3.579.2. 462 Unknown [id number] 2.16.840.1.839785.3.579.2. 462 Unknown [id number] 2.16.840.1.478795.3.579.2. 462 Unknown [id number] 2.16.840.1.083897.3.579.2. 462 Social History Date Type Detail Facility Start: 11-19-2018 End: 10-18-2022 Tobacco smoking status NHIS Never smoker [facility] Start: 11-05-2018 End: 08-14-2019 History SDOH Alcohol Frequency 1 [facility] Start: 2000 Sex Assigned At Not on file [facility] Start: 02-11-2019 End: 09-22-2024 Alcohol intake Lifetime non-drinker (finding) [facility] Exposure to SARS-CoV -2 (event) Unable to assess [facility] [place] Start: 10-08-2022 End: 10-18-2022 Exposure to SARS-CoV-2 (event) Not sure [facility] Tobacco smoking consumption unknown [facility] Tobacco [facility] Comment on above: denies. Start: 11-10-2018 End: 02-05-2020 Sex Assigned At Female [facility] Start: 04-11-2022 End: 10-18-2022 Tobacco use and exposure Smokeless tobacco non-user [facility] Start: 10-18-2022 End: 10-12-2024 Alcohol intake Current drinker of alcohol (finding) [facility] Start: 11-10-2018 End: 02-05-2020 History of Social function [facility] How often to you hav e a drink containing alcohol? Never [facility] Average Number of Drinks Not on file [facility] Start: 10-18-2022 Alcohol Comment weekends [facility] Start: 11-05-2018 Gender identity Identifies as female gender (finding) [facility] Start: 11-19-2018 Sexual orientation Heterosexual (sobeida ibrahim) [facility] Start: 04-16-2024 [facility] Start: 2000 Sex assigned at Female [facility] Start: 08-04-2012 End: 10-20-2024 Sex Female (finding) [facility] Start: 05-14-2024 Tobacco smoking stat us NHIS Ex-smoker (finding) [facility] Goals Date Patient Goal Desired Activity [...] Assessment Result Facility 01-27-2022 Functional Status N/A [facility] 12-31-2021 Functional Status N/A [facility] Clinical Notes 12-31-2021 to 12-15-2024 Sandra Church [employer] - 10/12/2024 10:29 AM EDT Note Date & Type Note Facility 12-15-[address] [facility] 12-14-2024 Radiology Diagnostic study note [facility] Imaging Services [address] [place] [address] OB Limited With Biometrics MR#: [id number] Acct: [id number] Name: AIMEE REDDY Rep #: [id number] : 2000 F 24 From: Speedy Lopez MD PCP: Care Physician,No Primary Status: REG CLI Study:OB Limited With Biometrics Date of Exam : 12/11/24 Exam# [id number] Ordering Dr: Leonor Phillips MD PROCEDURE: OB [...] with the normal expected range. Reading Location: [id number] CC: Dr. Leonor Phillips MD; No Primary Care Physician ~ Maintenance Inspector: Signed [facility] 12-09-2024 Progress note [facility] 11-25-2024 Progress note [facility] 10-12-2024 Note Patient Name: [facility] Location: Aimee [facility] [address] [place] [phone] Date Of : Date Of Visit: 2000 10/12/2024 MRN# Provider: [id number] Sandra Church CNP Chief Complaint Patient presents with Sore Throat ST, Fatigue, Cough x 7 days exposed to mono Assessment & Plan 1. Sore throat POC Strep A - Molecular POC Infectious Mononucleosis Antibody 2. Viral pharyngitis No follow-ups on file. Medical Decision Making Strep was (-) and reviewed - Charlotte was (-) and reviewed. She is to [...] or SOB. Was seen last week in [place] ED for same thing and FLU and Strep was done and negative. She states that he has no fevers and no rashes. She is now concerned for Charlotte as she reports exposure. She denies any abdominal pain Review Of Systems Review of Systems HENT: Positive for sore throat. Respiratory: Positive for cough. Medical History Past Medical History: Diagnosis Date Environmental allergies Migraine Sepsis (HCC) 2018 due to UTI Syncope Past Surgical History: Procedure Laterality Date COLONOSCOPY N/A 02/24/2019 Procedure: COLONOSCOPY with biopsy; Surgeon: Sergio Gray MD; Location: [facility]; Service: General Surgery EGD N/A 02/24/2019 Procedure: ESOPHAGOGASTRODUODENOSCOPY with biopsy; Surgeon: Sergio Gray MD; Location: [facility]; Service: General Surgery SPLENECTOMY, TOTAL 2011 [...] ear normal. Nose: Nose normal. Mouth/Throat: Lips: [place]. Mouth: Mucous membranes are moist. Tongue: No [...] 10:47 AM Result Value Ref Range Infectious Charlotte Negative Negative Internal Control Pass No orders [...] ON 10/12/2024 10: (more content not included)... [facility] 10-12-2024 History of Present illness Narrative Images from the original note were not included. Patient Name: [facility] Urgent [facility] Location: Aimee Reddy [address] [place] [phone] Date Of : Date Of Visit: 2000 10/12/2024 MRN# Provider: [id number] Sandra Church CNP Chief Complaint Patient presents with Sore Throat ST, Fatigue, Cough x 7 days exposed to mono Assessment & Plan 1. Sore throat POC Strep A - Molecular POC Infectious Mononucleosis Antibody 2. Viral pharyngitis No follow-ups on file. Medical Decision Making Strep was (-) and reviewed - Charlotte was (-) and reviewed. She is to [...] or SOB. Was seen last week in [place] ED for same thing and FLU and Strep was done and negative. She states that he has no fevers and no rashes. She is now concerned for Charlotte as she reports exposure. She denies any abdominal pain Review Of Systems Review of Systems HENT: Positive for sore throat. Respiratory: Positive for cough. Medical History Past Medical History: Diagnosis Date Environmental allergies Migraine Sepsis (HCC) 2019 due to UTI Syncope Past Surgical History: Procedure Laterality Date COLONOSCOPY N/A 02/24/2019 Procedure: COLONOSCOPY with biopsy; Surgeon: Sergio Gray MD; Location: [facility]; Service: General Surgery EGD N/A 02/24/2019 Procedure: ESOPHAGOGASTRODUODENOSCOPY with biopsy; Surgeon: Sergio Gray MD; Location: [facility]; Service: General Surgery SPLENECTOMY, TOTAL 2011 [...] ear normal. Nose: Nose normal. Mouth/Throat: Lips: [place]. Mouth: Mucous membranes are moist. Tongue: No [...] 10:47 AM Result Value Ref Range Infectious Charlotte Negative Negative Internal Control Pass No orders [...] for this visit. documented in this encounter [facility] 09-23-2024 Progress note [facility] 09-23-2024 Radiology Diagnostic study note [facility] Imaging Services [address], [place] [id number] OB Limited With Biometrics MR#: [id number] Acct: [id number] Name: AIMEE REDDY Rep #: [id number] : 2000 F 24 From: Symone Cabrales MD PCP: Status: ADM IN Study:OB Limited With Biometrics Date of Exam : 09/23/24 Exam# [id number] Ordering Dr: Leonor Phillips MD EXAM: US [...] single live intrauterine as above. Reading Location: [facility] CC: Dr. Leonor Phillips MD ~ Maintenance Inspector: Signed [facility] 09-23-2024 Progress note Note Date/Time September 23, 2024 12:57pm [facility] Medical Records Department [address] [facility] [place] [address] Progress Note - OBGYN 09/23/24 0659 MR#: [id number] Acct: [id number] Name: AIMEE REDDY Rep #:[id number] : 2000 24 From: Leonor reed MD PCP: Status:ADM IN Location: [id number] Subjective Subjective feeling better no back pain [...] of normal first , second trimester COMMENT: [id number], TERESITA 12/29/24, girl Guerrero Gutierrez (3) : QUALIFIERS: Weeks of gestation: 20 weeks Qualified Code(s): Z3A.20 - 20 weeks gestation of COMMENT: LR NIPT Carrier Neg. 13/14 Carrier for Cystic Fibrosis;FOB Karen Merino negative PLAN: Plan monitor for being afebrile fro 24 hours and c home on antibiotics Charges/Coding Visit Charges Inpatient E&M: 14741 Disch Hosp 09/23/24 1257 <Electronically signed by Leonor Phillips MD> Cosigner Signature (if applicable): CC: ~ Signed [facility] Work Phone: 1(436) 508-128204-01-2025 History and physical note Author Mimi Caldera [facility] Note Date/Time September 22, 2024 5:44 pm [facility] Medical Records Department [address] [place] [address] H&P Exam - 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 09/22/24 1735 MR#: [id number] Acct: [id number] Name: AIMEE REDDY Rep #:[id number] : 2000 24 From: Mimi Thomas DO PCP: Status:ADM ASMITA Location: [place] [address] HPI - General General Date of Admission: 09/22/24 HPI Narrative AIMEE REDDY, is a 24 y/o @ 24 weeks [address] 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 Carrier for Cystic Fibrosis;FOB Karen Wilbre negative 09/22/24 1744 <Electronically signed by Mimi Thomas DO> Cosigner Signature (if applicable): CC: Dr. Mimi Thomas DO~ Signed [facility] Work Phone: 1(692) 207-511304-01-2025 History and physical note [facility] Medical Records Department [address] [place] [address] H&P Exam - 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 09/22/24 1735 MR#: [id number] Acct: [id number] Name: AIMEE REDDY Rep #:[id number] : 2000 24 From: Mimi Thomas DO PCP: Status:ADM ASMITA [facility] - General General Date of Admission: 09/22/24 HPI Narrative AIMEE REDDY, is a 24 y/o @ 24 weeks [address] [facility] from [facility] with the diagnosis of acute pyelonephritis in [...] family current occupational status: employed current occupation: [employer] pets and animals: Yes pets and animals: [...] activity do you participate in: none ana m/yazidism: Mormon seatbelt use: always do you feel safe [...] unsure if urine culture was sent at [place] [facility] - will order repeat rpt cbc [...] of normal first , second trimester COMMENT: [id number], TERESITA 12/29/24, girl Guerrero Gutierrez (4) : QUALIFIERS: Weeks of gestation: 20 weeks Qualified Code(s): Z3A.20 - 20 weeks gestation of COMMENT: LR NIPT Carrier Neg. Carrier for Cystic Fibrosis;FOB Karen Nassareck negative 09/22/24 2773 Cosigner Signature (if applicable): CC: Dr. Mimi Thomas, DO~ Signed [facility]04-01-2025 Evaluation note* Diagnosis Onset Date Resolution [...] first acute December 30, 2024 2 :11pm [facility] Work Phone: 1(676) 535-875404-01-2025 Evaluation note* Diagnosis Onset Date Resolution Status [...] normal first acute January 07, 2025 11:20am [facility] Work Phone: 1(791) 856-440303-05-2025 Evaluation note* Diagnosis Onset Date Resolution Status [...] first acute November 25, 2024 9 :51am [facility] Work Phone: 1(101) 889-381003-05-2025 Evaluation note* Diagnosis Onset Date Resolution Status [...] normal first acute December 09, 2024 9:24am [facility] Work Phone: 1(170) 513-370803-05-2025 Evaluation note* Diagnosis Onset Date Resolution Status [...] normal first acute December 15, 2024 9:16am [facility] Work Phone: 1(335) 396-767603-05-2025 Evaluation note* Diagnosis Onset Date Resolution Status [...] first acute December 23, 2024 3 :19pm [facility] Work Phone: 1(310) 512-220302-04-2025 Evaluation note* Diagnosis Onset Date Resolution Status [...] first acute November 11, 2024 9 :26am [facility] Work Phone: 1(309) 933-517102-04-2025 Evaluation note* Diagnosis Onset Date Resolution Status [...] first acute November 25, 2024 9 :51am [facility] Work Phone: 1(300) 797-815001-08-2025 Evaluation note* Diagnosis Onset Date Resolution Status [...] normal first acute October 15, 2024 9:51am [facility] Work Phone: 1(425) 279-551312-06-2024 Evaluation note* Diagnosis Onset Date Resolution Status [...] normal first acute September 22, 2024 4:45pm [facility] Work Phone: 1(789) 188-168204-27-2023 Instructions* Patient Instructions* Mary Romero CNP - [...] sent through Care Everywhere. * Bacterial Vaginosis (Honduran) documented in this [id number] History of Present illness Narrative* Mary Romero CNP - 10/18/2022 4:16 PM EDT Images from the original note were not included. Patient Name: [facility] Location: Aimee Reddy [address] [place] [phone] Date Of : Date Of Visit: 2000 10/18/2022 MRN# Provider: [id number] Mary Romero CNP Chief Complaint Patient presents [...] STD. See H&P Informed of need for flooring installer. Client agreeable. Wet Preparation Chlamydia, Gonorrhea Additional [...] with biopsy; Surgeon: Sergio Gray MD; Location: [facility]; Service: General Surgery EGD N/A 02/24/2019 Procedure: ESOPHAGOGASTRODUODENOSCOPY with biopsy; Surgeon: Sergio Gray MD; Location: [facility]; Service: General Surgery SPLENECTOMY, TOTAL 2011 [...] nursing note reviewed. Exam conducted with a flooring installer present (Sherri TIJERINA). Constitutional: General: She is [...] Please consider vaping cessation. documented in this [id number] History of Present illness Narrative* Verenice Sinha PA-C - 10/18/2022 2:51 PM EDT Images from the original note were not included. Patient Name: [facility] Location: [address] [facility] [address] Date Of : Date Of Visit: 2000 10/18/2022 MRN# Provider: [id number] Verenice Sinha PA-C Video Visit Video Visit [facility] [address] [facility] [address] Via Real-time Synchronous Audiovisual [facility] 09/08/2021 Verenice Sinha PA-C Provider Location: [place] Patient Location [employer] Dealer: None Patient Location: Patient's Home Patient: Aimee [...] that there are some limitations compared to gheu-nk-sieq evaluations. We elected to proceed. Chief Complaint Patient presents with Vaginal Discharge Odor, 2wks after menstrual cycle. Assessment & Plan 1. Vaginal Odor No follow-ups on file. Pt agrees to go to [facility] for in person visit with provider [...] with biopsy; Surgeon: Sergio Gray MD; Location: [facility]; Service: General Surgery EGD N/A 02/24/2019 Procedure: ESOPHAGOGASTRODUODENOSCOPY with biopsy; Surgeon: Sergio Gray MD; Location: [facility]; Service: General Surgery SPLENECTOMY, TOTAL 2011 [...] file for this visit. documented in this [id number] Hospital Discharge instructions Patient Education 01/27/2022 19:01:10 Urinary Tract Infection, Adult, Jytl-se-Foje Urinary Tract Infection, Adult A urinary tract [...] Follow these instructions at home: Medicines Take yfxi-xve-gjxzlmk and prescription medicines only as told by [...] 11/26/2008 Document Revised: 05/28/2019 Document Reviewed: 12/18/2018 DEXMA Patient Education 2019 Contacts+. Follow Up Care 01/27/2022 16:01:49 With:Tye Arora MD, NEU Address: [address] [place] [address] [place] [address]- When:01/30/2022 With:Britt Aguilar MD Address: [address] [place] [address]- When:01/30/2022 [facility]08-06-2022 Evaluation + Plan note Diagnostic Tests Pending * Urine Culture 01/27/22 [facility]07-10-2022 Hospital Discharge instructions Patient Education 12/31/2021 19:45:50 Seizure, Adult, Mvnr-lv-Qzzx Seizure, Adult A seizure is a sudden [...] Follow these instructions at home: Medicines Take nuge-jjn-ltsnjma and prescription medicines only as told by [...] [place] ask your local DMV (department of [employer] vehicles) when you can drive. Get plenty [...] 11/26/2008 Document Revised: 08/28/2019 Document Reviewed: 08/28/2019 DEXMA Patient Education 2020 Contacts+. Follow Up Care 12/31/2021 18:36:34 With:Tye Arora Address: [address] [place] [address] [place] [address] Business (1) When:01/03/2022 19:26:51 With:Britt Aguilar Address: [address] [place] [address] [place] [address] Business (1) When:Within 3 Day(s) [facility]07-10-2022 Evaluation + Plan noteExtracted from: Title:ED Note Author:Ji Grimes DO Date :12/31/21 Recurrent episodes of unresp onsiveness (R41.89: Other symptoms and signs involving cognitive functions and awareness) [facility] Diagnosis Vaginal Odor- Primary Leukorrhea, not specified as infective [facility] Diagnosis Acute vaginitis- Primary Unspecified vaginitis and vulvovaginitis Vaginal odor Unspecified symptom associated with female genital organs Screening examination for STD (sexually transmitted disease) Electronic cigarette use [facility]* Diagnosis Abdominal pain, left upper quadrant- Primary documented in this encounter [facility] note* Diagnosis Acute pyelonephritis- Primary Acute pyelonephritis without lesion of renal medullary necrosis documented in this encounter [facility] note* Diagnosis Sepsis, due to unspecified organism- Primary Environmental allergies Other allergy, other than to medicinal agents Body mass index (BMI) of 5th to less than 85th percentile for age in patient 18 years to less than 21 years of age Syncope, unspecified syncope type- Primary Palpitations Sore throat- Primary Acute pharyngitis Viral pharyngitis Acute pharyngitis [facility] Narrative No data available for this section [facility] Discharge instructions* Attachments The following attachments cannot be sent through Care Everywhere. * : Abdominal Pain (Honduran) * Abdominal Pain (Honduran) [facility]* Attachments The following attachments cannot be sent through Care Everywhere. * Pyelonephritis (Honduran) * : UTI (Urinary Tract Infection) (Honduran) [facility] Attachments The following attachments cannot be sent through Care Everywhere. * Sore Throat (Honduran) documented in this encounterOhioHealthProgress note No data available for this section [facility] Author Ramya Voss [facility] Note Date/Time November 25, 2024 10:17 am [facility] [address] [place] [address], [address] [place] [address] OFFICE VISIT Date of Service: 11/25/24 MR#: [id number] Acct: [id number] Name: AIMEE REDDY Rep #: [id number] : 2000 Provider: ANDREW Voss Age/Sex: 24/F Location: [facility] Status: Signed Intake Vital Signs 07/01/24 09:26 11/11/24 09:33 11/25/24 09:57 Height 5 ft 4 in 5 ft 4 in 5 ft 4 in Weight: 144 lb 146 lb 2 oz BMI 24.7 25.0 BP 117/76 112/82 H Intake Visit Reasons: 34wk ob Chief Complaint: 34 Week OB Machine Programmer Required: No Is patient in pain?: No [...] family current occupational status: employed current occupation: [employer] pets and animals: Yes pets and animals: [...] activity do you participate in: none ana m/yazidism: Mormon seatbelt use: always do you feel safe [...] Monitoring, Signs and Symptoms of Preeclampsia and [place] Education ROS Const Reports system reviewed and [...] of normal first , third trimester Comment: [id number], TERESITA 12/29/24, girl Guerrero Gutierrez (2) : [...] 11/25/24 1017 <Electronically signed by Ramya gallegos CARPENTER MATE CARPENTER MATE-C> Date _ Ramya Macon CARPENTER MATE CARPENTER MATE-C Cosigner Signature: Date (if applicable) CC: ~ [facility] Work Phone: Progress note Author Leonor Phillips [facility] Note Date/Time December 09, 2024 9:55 am [facility] [address] [place] [address], [address] [place] [address] OFFICE VISIT Date of Service: 12/09/24 MR#: [id number] Acct: [id number] Name: AIMEE REDDY Rep #: [id number] : 2000 Provider: Dr. Cecil Phillips MD Age/Sex: 24/F Location: [facility] Status: Signed Intake Vital Signs 07/01/24 09:26 11/25/24 09:57 12/09/24 09:26 12/09/24 09:30 Height 5 ft 4 in 5 ft 4 in 5 ft 4 in 5 ft 4 in Weight: 148 lb 2 oz BMI 25.4 BP 127/76 H Intake Visit Reasons: 36wk ob Machine Programmer Required: No Is patient in pain?: No [...] activity do you participate in: none ana m/yazidism: Mormon seatbelt use: always do you feel safe [...] of normal first , third trimester Comment: [id number], TERESITA 12/29/24, girl Guerrero Gutierrez (5) Cystic fibrosis carrier: Status: Acute Comment: FOB neg. 06/04 (6) : Status: Acute Qualifiers: Weeks of gestation: 35 weeks Qualified Code(s): Z3A.35 - 35 weeks gestation of Comment: LR NIPT Carrier Neg. Carrier for Cystic Fibrosis;FOB Karen Merino negative, nl anatomy Orders: Orders POC Urinalysis 2 Dip (Clinic) Today 12/09/24 7724 <Electronically signed by Leonor desir MD> Date _ Leonor Phillips MD Cosigner Signature: Date (if applicable) CC: ~ [facility] Work Phone: Progress note Author Leonor Phillips [facility] Note Date/Time December 15, 2024 10:1 6am [facility] [address], [address] [place] [address] OFFICE VISIT Date of Service: 12/15/24 MR#: [id number] Acct: [id number] Name: AIMEE REDDY Rep #: [id number] : 2000 Provider: Dr. 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 pets and animals: Yes pets and animals: [...] activity do you participate in: none ana m/yazidism: Mormon seatbelt use: always do you feel safe [...] Monitoring, Signs and Symptoms of Preeclampsia and [place] Education ROS Const Denies fever(s) GI Reports [...] of normal first , third trimester Comment: [id number], TERESITA 12/29/24, girl Guerrero Gutierrez (6) : [...] Cosigner Signature: Date (if applicable) CC: ~ [facility] Work Phone: Reason for referral (narrative)No reason for referral information availableWSumma Health [facility] Work Phone: Instructions * Patient Instructions* Jennifer [...] your Care Team: Provider: Chintan Ling MD [facility] Nurse: Rosalind Cornejo RN In case of an emergency please call 911. REFILLS: When in need for refills please call your care team or the office at [phone]. Please include medication name, pharmacy name, and [...] look into their status. Customer Service/Billing Questions: [phone] [facility] Assistance: [phone] or [phone] Financial Assistance: [phone] or [phone] As of June 29, 2019 my schedule [...] worse. When should you call for help? [id number] anytime you think you may need emergency [...] Log into your personal health record on [email or web address] and enter Q913 in the Education box to learn more about Learning About Postural Orthostatic Tachycardia Syndrome (POTS). Current as of: June 08, 2019 Content Version: 12.5 [employer]. Care instructions adapted under license by your healthcare professional. If you have questions about a medical condition or this instruction, always ask your healthcare professional. [employer] disclaims any warranty or liability for your [...] been followed closely by a PCP or rate marker. She denies any complaints or needs today. [...] EXAMINATION Patient Name: Aimee Reddy MR #: [id number] : 2000 Physicians: Jennifer Haley CNP (Family); [...] file Gets together: Not on file Attends holiness service: Not on file Active member of [...] 12/29/2019 9:25 AM EDT OFFICE CONSULTATION NOTE [facility] [address] [facility] [address] [facility] [address] Physicians: Jennifer Haley CNP (Family); Kenn Valdez MD (Referring) Subjective: Aimee Reddy is a 19 y.o. female seen in the office today for Syncope (s/p d/c [facility] ED for syncopal event 12/22. Pt states she has hx of syncope since about the second grade. She didhave a cardiac work up and [facility] in 2017. 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 She denies any orthopnea or paroxysmalnocturnal dyspnea. [...] with biopsy; Surgeon: Sergio Gray MD; Location: [facility]; Service: General Surgery EGD N/A 02/24/2019 Procedure: ESOPHAGOGASTRODUODENOSCOPY with biopsy; Surgeon: Sergio Gray MD; Location: [facility]; Service: General Surgery SPLENECTOMY, TOTAL 2011 [...] years and was worked up by her rate marker in 2016. She had EKG, Holter monitor, [...] November 2019 while she finished working at [employer] going to the basement to the parking [...] She finished high school and works at [employer]. The following portions of the patient's history [...] or abnormal muscle tone. Coordination: Coordination normal. Tdtqmb-Fdkh-Nyxhaa Test normal. Gait: Gait is intact. Gait [...] prevent her from passing out like hand rn imcu and armtensing or leg crossing and tensing [...] Portions of this chart was created using [employer] voice recognition software. Occasional wrong-word or sound-like [...] Salamanca - 11/09/2018 11:50 AM EDT 11/09/18 9925 Clinical Encounter Type Visit Type Non Crisis Non Crisis Visit Follow-up Visited With Patient and family together Visit Length (minutes) 1-15 Patient Spiritual Assessment Spiritual Assessed Yes Pentecostal Affiliation Faith Patient Spiritual Resilience Sense of Hope Family Spiritual Encounters Family Coping Accepting;Open/discussion Family Normalization 4 Family Participation in Care 5 Family Support During Treatment 5 Spiritual Health Services Progress Note Type of Visit: Follow Up Date of Visit: 11/09/2018 Clinical Encounter Type: Visited With: patient and family Continue Visiting: no Pentecostal Encounters: Pentecostal Needs: Other: None at this time; prn. Situation: Follow up on patient's medical condition and disposition; as well as mother's emotional status. Background: Patient and mother tearful and distressed over illness. Assessment: Patient is in good spirits; smiling; and pleased with healing progress. Mother is content and expressing gratitude for Technology Development Intern's concern and visit. Recommendation: Offered words of encouragement, spiritual, and emotional support. Kajal Salamanca MDiv. Assoc. Technology Development Intern Ext. [phone] * Kajal Salamanca - 11/09/2018 10:15 AM EDT 11/09/18 0838 Clinical Encounter Type Visit Type Non Crisis Non Crisis Visit Follow-up Visited With Patient not available Spiritual Health Services Progress Note Type of Visit: Follow Up Date of Visit: 11/09/2018 Clinical Encounter Type: Visited With: Patient asleep. Continue Visiting: yes Pentecostal Encounters: Pentecostal Needs: Other: Spiritual and emotional support. Situation: Follow up. Background: Patient tearful during initial encounter. Assessment: Patient resting. Recommendation: Will follow up. Kajal Salamanca MDiv. Assoc. Technology Development Intern Ext. [phone] * Symone Salamancajowayne Coley - 11/08/2018 3:21 PM EDT 11/08/18 1505 Clinical Encounter Type Visit Type Non Crisis Non Crisis Visit Rounding Visited With Patient and family together Visit Length (minutes) 1-15 Patient Spiritual Assessment Spiritual Assessed Yes Pentecostal Affiliation Faith Patient Spiritual Distress Sense of [place] Spiritual needs Prayer Family Spiritual Encounters Family Coping Anxiety Family Participation in Care 4 Family Support During Treatment 5 Spiritual Health Services Progress Note Type of Visit: Initial Date of Visit: 11/08/2018 Clinical Encounter Type: Visited With: patient and family Continue Visiting: yes Pentecostal Encounters: Pentecostal Needs: Prayer and Supportive Listening Situation: Visited patient during afternoon rounds. Background: Mandaen/Faith ana m foundations. Assessment: Patient is tearful and afraid. This hospital admission and the diagnosis of sepsis has caused the patient to have a sense of brokenness; not expecting to deal with this illness and tests required. Patient's mother is present and very supportive. Mother demonstrates some anxiety and becomes tearful as well. Technology Development Intern's words of encouragement seemed to give them both a sense of hope. Recommendation: Offered emotional and spiritual support. Will follow up. Kajal Salamanca MDiv. Assoc. Technology Development Intern Ext. [phone] * Brissa Dumont MD - 11/08/2018 2:40 PM EDT [facility] Medicine Inpatient Follow-up 11/08/2018 Brissa Dumont MD [facility] Patient: Aimee Reddy Date of : [...] Jacobsen MD - 11/07/2018 12:04 PM EDT [facility] Medicine Inpatient Follow-up 11/07/2018 Anupam Jacobsen MD [facility] Patient: Aimee Reddy Date of : [...] Jacobsen MD - 11/06/2018 12:39 PM EDT [facility] Medicine Inpatient Follow-up 11/06/2018 Anupam Jacobsen MD [facility] Patient: Aimee Reddy Date of : [...] RN with Rapid Response and Magda Crisostomo CARPENTER MATE notified and at the bedside. * Brigitte [...] EXAMINATION Patient Name: Aimee Reddy MR #: [id number] [facility] #: [id number] : 2000 Physicians: Jennifer Haley CNP (Family); [...] with biopsy; Surgeon: Sergio Gray MD; Location: [facility]; Service: General Surgery EGD N/A 02/24/2019 Procedure: ESOPHAGOGASTRODUODENOSCOPY with biopsy; Surgeon: Sergio Gray MD; Location: [facility]; Service: General Surgery SPLENECTOMY, TOTAL 2011 [...] file Gets together: Not on file Attends holiness service: Not on file Active member of [...] found for: LIPASE Surgical Pathology Report Case: [id number] Authorizing Provider: Sergio Gray MD Collected: 02/24/2019 08:34 AM Ordering Location: [facility] Received: 02/24/2019 12:01 PM Center [...] SRIKANTH office visit. Patient sent letter via [employer]. Future Appointments Date Time Provider Department Center [...] Documents on File Type Date Recorded Patient Secretary Bookkeeper Expl anation Advance Directives and Livin g Will 11/05/2018 2:57 PM Latest Code Status on File Code Status Date Activated Date Inactivated Comments Full Code 11/05/2018 3:35 PM Documents on File Type Date Recorded Patient Secretary Bookkeeper Expl anation Advance Directives and Livin g Will 01/28/2019 12:10 AM Latest Code Status on File Code Status Date Activated Date Inactivated Comments Full Code 11/05/2018 3:35 PM 01/27/2019 10:48 PM Documents on File Type Date Recorded Patient Secretary Bookkeeper Expl anation Advance Directives and Livin g Will 02/11/2019 7:09 AM Documents on File Type Date Recorded Patient Secretary Bookkeeper Expl anation Advance Directives and Living Will Power of Youth Worker Documents on File Type Date Recorded Patient Secretary Bookkeeper Expl anation Advance Directives and Livin g Will 12/23/2019 12:00 AM Latest Code Status on File Code Status Date Activated Date Inactivated Comments Full Code 11/05/2018 3:35 PM 01/27/2019 10:48 PM Documents on File Type Date Recorded Patient Secretary Bookkeeper Expl anation Advance Directives and Livin g Will 12/23/2019 12:00 AM Documents on File Type Date Recorded Patient Secretary Bookkeeper Expl anation Advance Directives and Livin g Will 01/01/2020 6:03 AM Documents on File Type Date Recorded Patient Secretary Bookkeeper Expl anation Advance Directives and Livin g Will 02/24/2019 7:27 AM Documents on File Type Date Recorded Patient Secretary Bookkeeper Expl anation Advance Directives and Livin g Will 01/28/2019 12:10 AM Documents on File Type Date Recorded Patient Secretary Bookkeeper Expl anation Advance Directives and Livin g [...] Hepatobiliary With Ejection Fraction Sergio Gray MD [address] [place] [address] [place] [address] Status Reason Specialty Diagnoses / Procedures Referre d By Contact Referred To Contact Closed Radiology Diagnoses Abdominal pain, unspecified abdominal location Weight loss Nausea Procedures NM Hepatobiliary With Ejection Fraction Sergio Gray MD [address] [place] [address] [place] [address] Status Reason Specialty Diagnoses / Procedures Referred By Contact Referred To Contact Pending Review Cardiology Diagnoses Syncope, unspecified syncope type Palpitations Procedures Cardiac event monitor Chintan Ling MD [address] [place], [place] [id number] Status Reason Specialty Diagnoses / Procedures Referred By Contact Referred To Contact Authorized Neurology Diagnoses Syncope, unspecified syncope type Jennifer Haley, SUPERVISOR [employer]ACH[employer] WORK[employer] [address] [place] [address] Ernesto Saxena MD [address] [place] [address] Status Reason Specialty Diagnoses / Procedures Referred By Contact Referred To Contact Pending Review Neurology Diagnoses Syncope, unspecified syncope type Procedures EEG (Standard) Julieth Watters MD [address] [place] [address] [address] Status Reason Specialty Diagnoses / Procedures Referred By Contact Referred To Contact Pending Review Radiology Diagnoses Syncope, unspecified syncope type Procedures MR Brain With And Without Contrast Julieth Watters MD [address] [place] [address] [address] Discharge Instructions * Instructions* Ric Lantigua MD - 12/16/2019 Drink plenty of fluids tomorrow, Tylenol for headaches * Attachments The following attachments cannot be sent through Care Everywhere. * Bruises (Honduran) * Fainting (Honduran) documented in this encounter* Instructions* Kenn Valdez MD - 12/23/2019 Please stay very hydrated drink 6 to 8 cups of water a day * Attachments The following attachments cannot be sent through Care Everywhere. * Fainting (Honduran) documented in this encounter* Discharge Instr - [...] Log into your personal health record on [email or web address] and enter Y798 in the Education box to learn more about Learning About Sepsis. Current as of: March 16, 2018 Content Version: 12.0 [id number] [employer]. Care instructions adapted under license by your healthcare professional. If you have questions about a medical condition or this instruction, always ask your healthcare professional. [employer] disclaims any warranty or liability for your use of this information. documented in this encounter* Attachments The following attachments cannot be sent through Care Everywhere. * Colonoscopy: Pediatric: Pre-op (Honduran) * Abdominal Pain: Pediatric (Honduran) * GI Bleed: Pediatric (Honduran) documented in this encounter Hospital Course * Brissa Dumont MD - 11/09/2018 12:10 PM EDT DISCHARGE SUMMARY Patient: Aimee Reddy Date of : 2000 Site: [facility] Family Provider: Jennifer Haley CNP Admit [...] Physician(s) Family Provider: Jennifer Haley CNP, Address: [address] [place] [address] / [facility] [address] Follow Up: No follow-up provider specified. Additional [...] 9: 22am Supervision of normal first [facility] 2024 9:22am Cystic fibrosis carrier July 28 8:53am July 28, 2024 8 :53am Supervision of normal first Fe bruary 2024 8:53am Cystic fibrosis carrier August 26, 2024 9:19am August 26, 2024 9:19 am Supervision of normal first [facility] 2024 9:19am Cystic fibrosis carrier September [...] 9:19 am Supervision of normal first [facility] 2024 9:19am Cystic fibrosis carrier September [...] 9:19 am Supervision of normal first [facility] 2024 9:19am Cystic fibrosis carrier September [...] 9:19 am Supervision of normal first [facility] 2024 9:19am Cystic fibrosis carrier September [...] 9:19 am Supervision of normal first [facility] 2024 9:19am Cystic fibrosis carrier September [...] 9:19 am Supervision of normal first [facility] 2024 9:19am Cystic fibrosis carrier September [...] With Ejection Fraction Sergio Gray MD [address] [facility] [address] [place] [address] RADIOLOGY [address] [place] [address] Reason Comments Head Injury Pt states she fainte d at work at approx 1620. Pt hit head, complaining of rt sided head pain. pos LOC pt does not remember incident Loss of Consciousness Reason Comments Seizures near syncopal episod es - states she is unsure if they are seizures or not Reason Comments Syncope s/p d/c [facility] ED for syncopal event 12/22. Pt states she has hx of syncope since about the second grade. She did have a cardiac work up and [facility] in 2017. Information is in Care Everywhere. Status Reason Specialty Diagnoses / Procedures Referred By Contact Referred To Contact Pending Review Cardiology Diagnoses Syncope, unspecified syncope type Kenn Valdez MD [address] [place] [address] Chintan Ling MD [address] [phone] Reason Comments Loss of Consciousness F/U ER VISIT Status Reason Specialty Diagnoses / Procedures Referred By Contact Referred To Contact Pending Review Cardiology Diagnoses Syncope, unspecified syncope type Palpitations Procedures Cardiac event monitor Chintan Ling MD [address] [place] [address] Reason Comments Loss of Consciousness was in [...] Syncope, unspecified syncope type SpringJennifer CNP [address] [place] [address] Ernesto Saxena MD [address] [place] [address] Status Reason Specialty Diagnoses / Procedures Referre d By Contact Referred To Contact Diagnoses Abdominal pain, unspecified abdominal location BRBPR (bright red blood per rectum) Weight loss Nausea Abdominal pain, unspecified abdominal location [R10.9] BRBPR (bright red blood per rectum) [K62.5] Weight loss [R63.4] Nausea [R11.0] Sergio Gray MD [address] [facility] [place] [address] Reason Comments SEPSIS Alert Urinary Tract Infection [...] pcp list and chooses dr belle in [place] - per Darling - paperwork from the office is required prior to appointment being made - zac Hastings - paperwork will be given to pt later today and appointment made tomorrow - [facility] following Plan of care updated continue IV [...] section and content) DATE CREATED AUTHOR 12/14/2018 [facility] DATE CREATED AUTHOR AUTHOR'S ORGANIZ ATION 01/12/2020 [facility] DATE CREATED AUTHOR AUTHOR'S ORGANIZ ATION 11/21/2020 [facility] DATE CREATED AUTHOR AUTHOR'S ORGANIZ ATION 02/11/2021 [facility] DATE CREATED AUTHOR AUTHOR'S ORGANIZ ATION 02/17/2022 [facility] DATE CREATED AUTHOR AUTHOR'S ORGANIZ ATION 04/22/2022 [facility] DATE CREATED AUTHOR AUTHOR'S ORGANIZ ATION 07/27/2022 [facility] DATE CREATED AUTHOR AUTHOR'S ORGANIZ ATION 11/03/2022 [facility] DATE CREATED AUTHOR AUTHOR'S ORGANIZ ATION 11/30/2022 [facility] DATE CREATED AUTHOR AUTHOR'S ORGANIZ ATION 03/20/2024 [facility] DATE CREATED AUTHOR AUTHOR'S ORGANIZ ATION 08/08/2024 [facility] DATE CREATED AUTHOR AUTHOR'S ORGANIZ ATION 09/28/2024 [facility] DATE CREATED AUTHOR AUTHOR'S ORGANIZ ATION 10/12/2024 [facility] DATE CREATED AUTHOR AUTHOR'S ORGANIZ ATION 10/14/2024 [facility] DATE CREATED AUTHOR AUTHOR'S ORGANIZ ATION 01/11/2025 [facility] Mohit Eubanks LPN - 12/23/2019 5:26 PM Kenn Baron MD - 12/23/2019 2:42 PM Erika Joaquin RN - 12/23/2019 2:38 PM Erika Joaquin RN - 12/23/2019 2:31 PM EDT ED Notes (unrecognized secti on and content) IV DISCONTINUED CANNULA INTACT DRESSING PLACED, DISCHARGE INSTRUCTIONS REV'D DENIES QUESTIONS, WHEEL CHAIR TO EXIT WITH MOM [facility] ED Attending Note: NAME: Aimee Reddy 19 y.o. CSN: [id number] PCP: Jennifer Haley CNP History: Chief Complaint: [...] with biopsy; Surgeon: Sergio Gray MD; Location: [facility] OR; Service: General Surgery EGD N/A 02/24/2019 Procedure: ESOPHAGOGASTRODUODENOSCOPY with biopsy; Surgeon: Sergio Gray MD; Location: [facility] OR; Service: General Surgery SPLENECTOMY, TOTAL 2011 [...] file Gets together: Not on file Attends holiness service: Not on file Active member of [...] Colorless, Yellow Clarity, Urine Clear Clear Specific Carmine 1.028 (H) 1.005 - 1.025 pH, Urine [...] Syncope, unspecified syncope type Kenn Valdez MD [facility] Emergency Department (Please note that portions of this note have been completed with a voice recognition software. Efforts were made to correct any errors, but occasionally words are mis-transcribed.) Kenn Valdez MD 12/23/19 [id number] Mother arrives to bedside Syncopal episode 1 [...] continued plan of care. ED PROVIDER NOTE [facility] NAME: Aimee Reddy AGE: 18 y.o. : 2000 VISIT DATE: 11/05/2018 CSN: [id number] PCP: Physician No Chief Complaint Patient presents [...] Yellow Clarity, Urine Hazy (A) Clear Specific Carmine 1.018 1.005 - 1.025 pH, Urine 5.0 [...] OF 0.9% NS INFUSED. ED PROVIDER NOTE [facility] NAME: Aimee Reddy AGE: 18 y.o. 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 Jeffrey Colon DO 01/27/[address] MICHAEL MAY. PT. REPORT REC'D FROM CARL Lopez RN. PT. SITTING QUIETLY ON CART IN ROOM. [facility]. NO DISTRESS NOTED. Pt states cramping started [...] Aimee Reddy Admit Date: [id number] MR #: [id number] : 2000 The H&P has been reviewed and the patient has been examined. I concur with the findings of the H&P. There are no significant changes. It is appropriate to proceed with the planned procedure. Sergio Gray MD 02/24/2019 8:25 AM HISTORY & PHYSICAL EXAMINATION Patient Name: Aimee Reddy MR #: [id number] : 2000 Physicians: Jennifer Haley CNP (Family); [...] file Gets together: Not on file Attends holiness service: Not on file Active member of [...] Last colonoscopy none documented in this encounter [facility] Medicine Inpatient H&P 11/05/2018 Jt Lewis MD [facility] Patient: Aimee Reddy Date of : 2000 (18 y.o.) PCP: Physician No Assessment Aimee Reddy 18 y.o. 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 Specialty Start Date End Date No, Physician [facility] PCP - General 04/22/22 Vocational Nursing Instructor Relationship Specialty Start Date End Date , Physician [facility] PCP - General 04/22/22 Vocational Nursing Instructor Relationship Specialty Start Date End Date Spring, Jennifer Vasquez APRN [employer] PCP - General 11/16/21 Vocational Nursing Instructor Relationship Specialty Start Date End Date Spring, Jennifer Vasquez APRN - [employer] PCP - General 11/16/21 Team Status: Inactive [...] Inactive Member Role Status Dates Ramya Voss CARPENTER MATE, CARPENTER MATE-C Attending Provider Active Start: July 01, 2024 [...] Inactive Member Role Status Dates Ramya Voss CARPENTER MATE, CARPENTER MATE-C Attending Provider Active Start: September 22, 2024 [...] Active Start: September 23, 2024 Dr. Mimi Tohmas DO Referring Provider Activ e Start: September 23, 2024 Dr. Mimi Thomas DO Other Provider Active Start: September 23, 2024 Dr. Leonor Phillips MD Attending Provider Active Start: September 23, 2024 Vocational Nursing Instructor Relationship Specialty Start Date End Date No, Physician [facility] PCP - General 04/22/22 Team Status: Active Member Role Status Dates No Primary Care Physician Primary Care Provider Active Team Status: Inactive Member Role Status Dates No Primary Care Physician Primary Care Provider Active Start: October 13, 2024 End: October 13, 2024 Ramya Voss CARPENTER MATE, CARPENTER MATE-C Attending Provider Active Start: October 13, 2024 End: October 13, 2024 Ramya Macon CARPENTER MATE, CARPENTER MATE-C Referring Provider Active Start: October 13, 2024 [...] 2024 End: October 15, 2024 Ramya Voss CARPENTER MATE, CARPENTER MATE-C Attending Provider Active Start: October 15, 2024 End: October 15, 2024 Team Status: Active Member Role Status Dates No Primary Care Physician Primary Care Provider Active Start: October 15, 2024 Ramya Voss CARPENTER MATE, CARPENTER MATE-C Attending Provider Active Start: October 15, 2024 Ramya Browns CARPENTER MATE, CARPENTER MATE-C Referring Provider Active Start: October 15, 2024 Team Status: Inactive Member Role Status Dates No Primary Care Physician Primary Care Provider Active Start: October 15, 2024 End: October 15, 2024 Ramya Browns CARPENTER MATE, CARPENTER MATE-C Attending Provider Active Start: October 15, 2024 End: October 15, 2024 Ramya Macon CARPENTER MATE, CARPENTER MATE-C Referring Provider Active Start: October 15, 2024 [...] Inactive Member Role Status Dates Ramya Voss CARPENTER MATE, CARPENTER MATE-C Attending Provider Active Start: November 25, 2024 [...] 2024 End: November 25, 2024 Ramya Voss CARPENTER MATE, CARPENTER MATE-C Attending Provider Active Start: November 25, 2024 End: November 25, 2024 Ramya Voss CARPENTER MATE, CARPENTER MATE-C Referring Provider Active Start: November 25, 2024 End: November 25, 2024 Team Status: Active Member Role Status Dates No Primary Care Physician Primary Care Provider Active Start: November 25, 2024 Ramya Voss CARPENTER MATE, CARPENTER MATE-C Attending Provider Active Start: November 25, 2024 Ramya Voss CARPENTER MATE, CARPENTER MATE-C Referring Provider Active Start: November 25, 2024 [...] Provider Active Start: December 11, 2024 Dr. Leoonr Phillips MD Attending Provider Active Start: December [...] Inactive Member Role/Relationship Status Dates Ramya Voss CARPENTER MATE, CARPENTER MATE-C Attending Provider Active Start: September 22, 2024 [...] 2024 End: October 13, 2024 Ramya Voss CARPENTER MATE, CARPENTER MATE-C Attending Provider Active Start: October 13, 2024 End: October 13, 2024 Ramya Voss CARPENTER MATE, CARPENTER MATE-C Referring Provider Active Start: October 13, 2024 [...] 2024 End: October 15, 2024 Ramya Voss CARPENTER MATE, CARPENTER MATE-C Attending Provider Active Start: October 15, 2024 End: October 15, 2024 Team Status: Inactive Member Role/Relationship Status Dates No Primary Care Physician Primary Care Provider Active Start: October 15, 2024 End: October 15, 2024 Ramya Voss CARPENTER MATE, CARPENTER MATE-C Attending Provider Active Start: October 15, 2024 End: October 15, 2024 Ramya Voss CARPENTER MATE, CARPENTER MATE-C Referring Provider Active Start: October 15, 2024 [...] Inactive Member Role/Relationship Status Dates Ramya Voss CARPENTER MATE, CARPENTER MATE-C Attending Provider Active Start: November 25, 2024 [...] 2024 End: November 25, 2024 Ramya Voss CARPENTER MATE, CARPENTER MATE-C Attending Provider Active Start: November 25, 2024 End: November 25, 2024 Ramya Voss CARPENTER MATE, CARPENTER MATE-C Referring Provider Active Start: November 25, 2024 [...] Inactive Member Role/Relationship Status Dates Ramya Voss CARPENTER MATE, CARPENTER MATE-C Attending Provider Active Start: September 22, 2024 [...] 2024 End: October 13, 2024 Ramya Voss CARPENTER MATE, CARPENTER MATE-C Attending Provider Active Start: October 13, 2024 End: October 13, 2024 Ramya Voss CARPENTER MATE, CARPENTER MATE-C Referring Provider Active Start: October 13, 2024 [...] 2024 End: October 15, 2024 Ramya Voss CARPENTER MATE, CARPENTER MATE-C Attending Provider Active Start: October 15, 2024 End: October 15, 2024 Team Status: Inactive Member Role/Relationship Status Dates No Primary Care Physician Primary Care Provider Active Start: October 15, 2024 End: October 15, 2024 Ramya Voss CARPENTER MATE, CARPENTER MATE-C Attending Provider Active Start: October 15, 2024 End: October 15, 2024 Ramya Voss CARPENTER MATE, CARPENTER MATE-C Referring Provider Active Start: October 15, 2024 [...] Inactive Member Role/Relationship Status Dates Ramya Voss CARPENTER MATE, CARPENTER MATE-C Attending Provider Active Start: November 25, 2024 [...] 2024 End: November 25, 2024 Ramya Voss CARPENTER MATE, CARPENTER MATE-C Attending Provider Active Start: November 25, 2024 End: November 25, 2024 Ramya Voss CARPENTER MATE, CARPENTER MATE-C Referring Provider Active Start: November 25, 2024 [...] BE BASED ON THE PRIMARY CLINICAL RECORDS. [facility] Constant [facility]. provides no warranty or guarantee of the accuracy or completeness of information in this document.
[2025-01-12] MEDS: Lactated Ringers 1,000 ML 999 ML IV (23:35)
[2025-01-13] VITALS (43 sets, daily range): BP systolic 96–129; BP diastolic 54–92; PULSE 58–89; RESP 16–18; TEMP 36.6–37.7; O2SAT 93–99
[2025-01-13 00:10] LABS: Hematocrit 30.1 % (37-47); Hemoglobin 9.8 g/dL (12.0-15.0); Immature Granulocytes Count 0.190 X10^3/uL (0.0-0.0); Mean Corp Hgb Conc 32.6 g/dL (32-36); Mean Corpuscular Volume 83.1 fL (81-99); Mean Platelet Vol. 14.0 fl (6.2-12.0); NRBC Flagged by Analyzer 0.3 % (0-5); POSITIVE DIFFERENTIAL YES; POSITIVE MORPHOLOGY YES; Platelet Count 262 K/mm3 (150-450); RBC Distribution Width CV 14.4 % (11.6-14.6); RBC Distribution Width SD 43.5 fl (35.1-43.9); Red Blood Count 3.62 M/mm3 (4.2-5.4); White Blood Count 18.2 K/mm3 (4.4-11.0)
--- OUTSIDE RECORDS SUMMARY | 2025-01-13 00:19 | XMS RPT_ITS | CCD ---
Author Organization [facility] Care Team Providers Care Right Of Way Cutter Name Role Phone Jennifer Haley Primary Care Provider Unavailable Primary Care Provider Unavailzena e Jennifer Haley Primary Care Provider [phone] RIC LANTIGUA Attending Unavailable Jennifer Haley Unavailable Arianna Wyatt Unavailable Unavailable JENNIFER HALEY Attending Unavailable JENNIFER HALEY Primary Care Unavailable Britt Aguilar Primary Care Physician JULIETH WATTERS Admitting Unavailable SPRINGJENNIFER Primary Care [...] Attending Unavailable RAMYA VOSS Referring Unavailable [facility], [facility] [place] Primary Care Unavailable [facility] ADMINISTRATOR - Jennifer MADERA Primary Care Pro vider Kassi Ontiveros CNM Attending Provider Kassi Ontiveros CNM Referring Provider Ramya Bryant Attending Provider Joce Caldera DO, Dr. Le Attending Provider Jacqueline VERDE, Dr. Galvez Attending Provider [phone] Joce Caldera DO, Dr. Le Admit Provider [...] Jacqueline VERDE, Dr. Galvez Referring Provider [phone] Jacqueline VERDE, Dr. Galvez Attending Provider Ramya Voss NP Attending Unavailable Care Physician, No Primary Referring Unava ilable Mimi Thomas Attending Unavailabl e Care Physician, No Primary Primary Care Unava ilable oJce Caldera, Mimi Attending Unavailabl e Vande Velde, [...] No Primary Primary Care Unava ilable Bipin SITE RELIABILITY ENGINEER, Ramya Attending Unavailable Bipin SITE RELIABILITY ENGINEER, Ramya Referring Unavailable Bipin SITE RELIABILITY ENGINEER, Ramya Referring Unavailable Bipin SITE RELIABILITY ENGINEER, Ramya Attending Unavailable Care Physician, No Primary Primary Care Unava ilable Kassi Ontiveros Attending Unavailable Mercedez Justin Attending Unavailable Care Physician, No Primary Referring Unava ilable Bipin SITE RELIABILITY ENGINEER, Ramya Attending Unavailable Care Physician, No Primary Primary Care Unava ilable Care Physician, No Primary Referring Unava ilable Care Physician, No Primary Primary Care Unava ilable [place] SITE RELIABILITY ENGINEER, Ramya Attending Unavailable Care Physician, No [...] Physician, No Primary Primary Care Unava ilable [place] SITE RELIABILITY ENGINEER, Ramya Attending Unavailable [place] SITE RELIABILITY ENGINEER, Ramya Referring Unavailable Care Physician, No [...] ilable Mimi Thomas Attending Unavailabl e Bipin SITE RELIABILITY ENGINEER, Ramya Attending Unavailable Traceee VelMimi tinoco Attending [...] 01/27/22 Stop Date: 02/01/22 Status: Ordered Pnv No.798-Od-Ur0-Dha-Epa -Fish 400 mcg-35 mg- 25 mg-5 mg tablet,chewable (14 sources) Start: Pnv No.830-Eh-Yr3-Dha-Ep a-Fish 400 mcg-35 mg- 25 mg-5 mg tablet,chewable Active {tbl} PO May 14, 2024 1:00am Start: 05-14-2024 Pnv No.153-Fa- Er7-Peh-Wey-Fish 400 mcg-35 mg- 25 mg-5 mg tablet,chewable [...] Onset: 07-13-2024 08-26-2024 Episodic Comment on above: [id number], TERESITA 12/29/24, girl Colbie BF Brenda LR [...] Caldera on 01-07-2025 Glucose Ql (U) Negative [facility] - UrinalysisOrder ed By: Mimi Caldera on 01-07-2025 Protein Ql (U) Negative [facility] Office Visit Reporton 01-07-2025 Docking [facility] Office Visit Report [facility] [address], [address] [place] [address] OFFICE VISIT Date of Service: 01/07/25 MR#: [id number] Acct: [id number] Name: AIMEE REDDY Rep #: [id number] : 2000 Provider: Dr. Mimi Garcia, Age/Sex: 24/F [place] [facility]: Signed Intake Vital Signs 11/11/24 09:33 12/30/24 14:13 01/07/25 11:24 Height 5 ft 4 in 5 ft 4 in 5 ft 4 in Weight: 150 lb 2 oz BMI 25.7 BP 134/88 H Intake Visit Reasons: 40 wk ob *Happy due date* Chief Complaint: 40wk OB Braiding Machine Operator Required: No Is patient in pain?: No [...] family current occupational status: employed current occupation: [employer] pets and animals: Yes pets and animals: [...] activity do you participate in: none ana m/pentecostalism: Jain seatbelt use: always do you feel safe [...] lo f (more content not included)... Normal [facility] - Chemistry and C hemistry - challengeOrdered By: Mimi Caldera on 12-30-2024 Glucose Ql (U) Negative [facility] - UrinalysisOrder ed By: Mimi Caldera on 12-30-2024 Protein Ql (U) Negative [facility] Office Visit Reporton 12-30-2024 Docking [facility] Office Visit Report [facility] [address], [address] [place] [address] OFFICE VISIT Date of Service: 12/30/24 MR#: [id number] Acct: [id number] Name: AIMEE REDDY Rep #: [id number] : 2000 Provider: Dr. Mimi Garcia, Age/Sex: 24/F [place] [facility] [place]: Signed Intake Vital Signs 11/11/24 09:33 12/23/24 15:26 12/30/24 14:13 Height 5 ft 4 in 5 ft 4 in 5 ft 4 in Weight: 150 lb BMI 25.7 BP 128/86 H Intake Visit Reasons: 39 wk ob Braiding Machine Operator Required: No Is patient in pain?: No [...] family current occupational status: employed current occupation: [employer] pets and animals: Yes pets and animals: [...] activity do you participate in: none ana m/pentecostalism: Jain seatbelt use: always do you feel safe [...] reuglar ct (more content not included)... Normal [facility] - Chemistry and C hemistry - challengeOrdered By: Mimi Caldera on 12-23-2024 Glucose Ql (U) Negative [facility] - UrinalysisOrder ed By: Mimi Caldera on 12-23-2024 Protein Ql (U) Negative [facility] Docking [facility] Office Visit Reporton 12-23-2024 Docking Pilot Office Visit Report [facility] [address], [address] [place] [address] OFFICE VISIT Date of Service: 12/23/24 MR#: [id number] Acct: [id number] Name: AIMEE REDDY Rep #: [id number] : 2000 Provider: Dr. Mimi Garcia DO Age/Sex: 24/F [place] [facility] [place]: Signed Intake Vital Signs 11/11/24 09:33 12/15/24 09:36 12/23/24 15:26 Height 5 ft 4 in 5 ft 4 in 5 ft 4 in Weight: 149 lb 6 oz BMI 25.6 BP 118/82 H Intake Visit Reasons: 38 wk ob Braiding Machine Operator Required: No Is patient in pain?: No [...] current occupational status: employed current occupation: [employer] pets and animals: Yes pets and animals: [...] activity do you participate in: none ana m/pentecostalism: Jain seatbelt use: always do you feel safe [...] no r (more content not included)... [facility] Rule out Beta Strep (Grp. B) on 12-18-2024 TREVON Group B Beta Streptococcus is not isolated. Normal [facility] Comment on above: Performed By: #### M 880.6458 ####[facility] [address] [place], [address] Docking Pilot Office Visit Reporton 12-15-2024 Docking [facility] Office Visit Report [facility] [address], [address] [place] [address] OFFICE VISIT Date of Service: 12/15/24 MR#: [id number] Acct: [id number] Name: AIMEE REDDY Rep #: [id number] : 2000 Provider: Dr. Leonor ha MD Age/Sex: 24/F [place] [facility] [place]: Signed Intake Vital Signs 07/01/24 09:26 12/09/24 09:30 12/15/24 09:36 Height 5 ft 4 in 5 ft 4 in 5 ft 4 in Weight: 152 lb BMI 26.1 BP 125/82 H Intake Visit Reasons: 37wk ob Braiding Machine Operator Required: No Is patient in pain?: No [...] current occupational status: employed current occupation: [employer] pets and animals: Yes pets and animals: [...] activity do you participate in: none ana m/pentecostalism: Jain seatbelt use: always do you feel safe [...] reuglar ctx (more content not included)... Normal [facility] Screening beta-hemolytic Str eptococcus cultureOrdered By: Leonor Phillips on 12-15-2024 Beta-hemolytic Streptococcus culture Group B Beta Streptococcus is not isolated. [facility] OB Limited With Biometricson 12-11-2024 OB Limited With Biometrics [facility] [address] [place], [place] [id number] OB Limited With Biometrics MR#: [id number] Acct: [id number] Name: AIMEE REDDY Rep #: [id number] : 2000 F 24 From: Lobo tilley MD PCP: Care Physician,No Primary Status: REG CLI Study: OB Limited With Biometrics Date of Exam: 12/11 Exam# [id number] Ordering Dr: Leonor Phillips PROCEDURE: OB LIMITED [...] with the normal expected range. Reading Location: [id number] CC: Dr. Leonor Phillips MD; No Primary Care Physician Freight Agent: Signed Normal [facility] - Chemistry and C hemistry - challengeOrdered By: Leonor Phillips on 12-09-2024 Glucose Ql (U) Negative [facility] - UrinalysisOrder ed By: Leonor Phillips on 12-09-2024 Protein Ql (U) Negative [facility] Docking [facility] Office Visit Reporton 12-09-2024 Docking Pilot Office Visit Report [facility] [address], [address] [place] [address] OFFICE VISIT Date of Service: 12/09/24 MR#: [id number] Acct: [id number] Name: AIMEE REDDY Rep #: [id number] : 2000 Provider: Dr. Leonor ha MD Age/Sex: 24/F [place] [facility] [place]: Signed Intake Vital Signs 07/01/24 09:26 11/25/24 09:57 12/09/24 09:26 12/09/24 09:30 Height 5 ft 4 in 5 ft 4 in 5 ft 4 in 5 ft 4 in Weight: 148 lb 2 oz BMI 25.4 BP 127/76 H Intake Visit Reasons: 36wk ob Braiding Machine Operator Required: No Is patient in pain?: No [...] family current occupational status: employed current occupation: [employer] pets and animals: Yes pets and animals: [...] activity do you participate in: none ana m/pentecostalism: Jain seatbelt use: always do you feel safe [...] no vb (more content not included)... Normal [facility] Absolute lymphocyte countOrd ered By: Ramya Voss on 11-25-2024 Lymphocytes Auto (Unsp spec) [#/Vol] 3.10 10*3/uL 0.83-4.51 [facility] Absolute neutrophil countOrd ered By: Ramya Voss on 11-25-2024 Neutrophils (Bld) [#/Vol] 10.6 10*3/uL High 2.0-7.7 [facility] Automated lymphocyte count a s percentage of total leukocytesOrdered By: Ramya Voss on 11-25-2024 Lymphocytes/100 WBC Auto (Unsp spec) 19.4 % 19-41 [facility] Basophil percentageOrdered B y: Ramya Voss on 11-25-2024 Basophils/100 WBC (Bld) 0.6 % 0-1 [facility] CBC W/Diff, Automatedon Absolute Lymph 3.10 X10 3/uL Normal 0.83-4.51 [facility] Comment on above: Performed By: #### L 100.0100 ####[facility] [address] [place], [address] Absolute Neut 10.6 X10 3/uL High 2.0-7.7 [facility] Comment on above: Performed By: #### L 100.0100 ####[facility] [address] [place], [address] Basophils/100 WBC (Bld) 0.6 % Normal 0-1 [facility] Comment on above: Performed By: #### L 100.0100 ####[facility] [address] [place], [address] Eosinophils/100 WBC (Bld) 3.1 % Normal 0-5 [facility] Comment on above: Performed By: #### L 100.0100 ####[facility] [address] [place], [address] Erythrocyte distribution width (RBC) [Ratio] 13.6 % Normal 11.6-14.6 [facility] Comment on above: Performed By: #### L 100.0100 ####[facility] [address] [place], [address] Hematocrit (Bld) [Volume fraction] 31.9 % Low 37-47 [facility] Comment on above: Performed By: #### L 100.0100 ####[facility] [address] [place], [address] Hemoglobin (Bld) [Mass/Vol] 10.6 g/dL Low 12.0-15.0 [facility] Comment on above: Performed By: #### L 100.0100 ####[facility] [address] [place], [address] IG% 1.700 High 0.0-0.9 [facility] Comment on above: Result Comment: IG% - Immature Granulocytes (promyelocytes, myelocytes and metamyelocytes) > 1% indicates that a LEFT SHIFT is Present. Performed By: #### L 100.0100 ####[facility] [address] [place], [address] Lymphocytes/100 WBC (Bld) 19.4 % Normal 19-41 [facility] Comment on above: Performed By: #### L 100.0100 ####[facility] [address] [place], [address] MCH (RBC) [Entitic mass] 29.6 pg Normal 27.0-32.0 [facility] Comment on above: Performed By: #### L 100.0100 ####[facility] [address] [place], [address] MCHC (RBC) [Mass/Vol] 33.2 g/dL Normal 32-36 [facility] Comment on above: Performed By: #### L 100.0100 ####[facility] [address] [place], [address] MCV (RBC) [Entitic vol] 89.1 fL Normal 81-99 [facility] Comment on above: Performed By: #### L 100.0100 ####[facility] [address] [place], [address] Monocytes/100 WBC (Bld) 9.3 % Normal 0-10 [facility] Comment on above: Performed By: #### L 100.0100 ####[facility] [address] [place], [address] Neutrophils/100 WBC (Bld) 65.9 % Normal 47-70 [facility] Comment on above: Performed By: #### L 100.0100 ####[facility] [address] [place], [address] Nucleated RBC (Bld) [#/Vol] 0 10*3/uL Normal 0-5 [facility] Comment on above: Performed By: #### L 100.0100 ####[facility] [address] [place], [address] Platelet mean volume (Bld) [Entitic vol] 12.6 fL High 6.2-12.0 [facility] Comment on above: Performed By: #### L 100.0100 ####[facility] [address] [place], [address] Platelets (Bld) [#/Vol] 338 10*3/uL Normal 150-450 [facility] Comment on above: Performed By: #### L 100.0100 ####[facility] [address] [place], [address] RBC (Bld) [#/Vol] 3.58 10*6/uL Low 4.2-5.4 [facility] Comment on above: Performed By: #### L 100.0100 ####[facility] [address] [place], [address] RDW SD 44.0 fl High 35.1-43.9 [facility] Comment on above: Performed By: #### L 100.0100 ####[facility] [address] [place], [address] WBC (Bld) [#/Vol] 16.0 10*3/uL High 4.4-11.0 [facility] Comment on above: Performed By: #### L 100.0100 ####[facility] [address] [place], [address] Eosinophil percentageOrdered By: Ramya Voss on 11-25-2024 Eosinophils/100 WBC (Bld) 3.1 % 0-5 [facility] Erythrocyte distribution wid th ratioOrdered By: Ramya Voss on 11-25-2024 Erythrocyte distribution width (RBC) [Ratio] 13.6 % 11.6-14.6 [facility] Erythrocyte distribution wid th standard deviationOrdered By: Ramya Voss on 11-25-2024 Erythrocyte distribution width (RBC) [Ratio] 44.0 fl High 35.1-43.9 [facility] Hematocrit Auto (Bld) [Volum e fraction]Ordered By: Ramya Voss on 11-25-2024 Hematocrit (Bld) [Volume fraction] 31.9 % Low 37-47 [facility] Hemoglobin measurementOrdere d By: Ramya Voss on 11-25-2024 Hemoglobin (Bld) [Mass/Vol] 10.6 g/dL Low 12.0-15.0 [facility] Immature granulocytes/100 WB C Auto (Bld)Ordered By: Ramya Voss on 11-25-2024 Immature granulocytes/100 WBC (Bld) 1.700 % High 0.0-0.9 [facility] Comment on above: IG% - Immature Granu locytes (promyelocytes, myelocytes and metamyelocytes) > 1% indicates that a LEFT SHIFT is Present. Laboratory - Chemistry and C hemistry - challengeOrdered By: Ramya Voss on 11-25-2024 Glucose Ql (U) Negative [facility] - UrinalysisOrder ed By: Ramya Voss on 11-25-2024 Protein Ql (U) Negative [facility] MCV (mean corpuscular volume ) determinationOrdered By: Ramya Voss on 11-25-2024 MCV (RBC) [Entitic vol] 89.1 fL 81-99 [facility] Mean corpuscular hemoglobin (MCH) determinationOrdered By: Ramya Voss on 11-25-2024 MCH (RBC) [Entitic mass] 29.6 pg 27.0-32.0 [facility] Mean corpuscular hemoglobin concentration (MCHC) determinationOrdered By: Ramya Voss on 11-25-2024 MCHC (RBC) [Mass/Vol] 33.2 g/dL 32-36 [facility] Mean platelet volume determi nationOrdered By: Ramya Voss on 11-25-2024 Platelet mean volume (Bld) [Entitic vol] 12.6 fL High 6.2-12.0 [facility] Monocyte percentageOrdered B y: Ramya Voss on 11-25-2024 Monocytes/100 WBC (Bld) 9.3 % 0-10 [facility] Neutrophil percentageOrdered By: Ramya Voss on 11-25-2024 Neutrophils/100 WBC (Bld) 65.9 % 47-70 [facility] Nucleated red blood cell per centageOrdered By: Ramya Voss on 11-25-2024 Nucleated RBC/100 WBC (Bld) [Ratio] 0 % 0-5 [facility] Office Visit Reporton 11-25-2024 Docking Pilot Office Visit Report [facility] [address], [address] [place] [address] OFFICE VISIT Date of Service: 11/25/24 MR#: [id number] Acct: [id number] Name: AIMEE REDDY Rep #: [id number] : 2000 Provider: ANDREW early Age/Sex: 24/F [place] [facility] [place]: Signed Intake Vital Signs 07/01/24 09:26 11/11/24 09:33 11/25/24 09:57 Height 5 ft 4 in 5 ft 4 in 5 ft 4 in Weight: 144 lb 146 lb 2 oz BMI 24.7 25.0 BP 117/76 112/82 H Intake Visit Reasons: 34wk ob Chief Complaint: 34 Week OB Braiding Machine Operator Required: No Is patient in pain?: No [...] current occupational status: employed current occupation: [employer] pets and animals: Yes pets and animals: [...] activity do you participate in: none ana m/pentecostalism: Jain seatbelt use: always do you feel safe [...] -???-???-???-???-???-??? -???- (more content not included)... [facility] Platelet countOrdered By: Dave Voss on 11-25-2024 Platelets (Bld) [#/Vol] 338 10*3/uL 150-450 [facility] RBC Auto (Bld) [#/Vol]Ordere d By: Ramya Voss on 11-25-2024 RBC (Bld) [#/Vol] 3.58 10*6/uL Low 4.2-5.4 [facility] White blood cell (WBC) count Ordered By: Ramya Voss on 11-25-2024 WBC (Bld) [#/Vol] 16.0 10*3/uL High 4.4-11.0 [facility] Laboratory - Chemistry and C hemistry - challengeOrdered By: Mimi Caldera on 11-11-2024 Glucose Ql (U) Negative [facility] - UrinalysisOrder ed By: Mimi Caldera on 11-11-2024 Protein Ql (U) Negative [facility] Docking [facility] Office Visit Reporton 11-11-2024 Docking Pilot Office Visit Report [facility], [address] [place] [address] OFFICE VISIT Date of Service: 11/11/24 MR#: [id number] Acct: [id number] Name: AIMEE REDDY Rep #: [id number] : 2000 Provider: Dr. Mimi Garcia, Age/Sex: 24/F [place] [facility] [place]: Signed Intake Vital Signs 07/01/24 09:26 10/27/24 09:21 11/11/24 09:33 Height 5 ft 4 in 5 ft 4 in 5 ft 4 in Weight: 144 lb BMI 24.7 BP 117/76 Intake Visit Reasons: 32wk ob Chief Complaint: 32 Week OB Braiding Machine Operator Required: No Is patient in pain?: No [...] current occupational status: employed current occupation: [employer] pets and animals: Yes pets and animals: [...] activity do you participate in: none ana m/pentecostalism: Jain seatbelt use: always do you feel safe [...] 137 l (more content not included)... Normal [facility] - Chemistry and C hemistry - challengeOrdered By: Yvrose Mcmillan on 10-27-2024 Glucose Ql (U) Negative [facility] - UrinalysisOrder ed By: Yvrose Mcmillan on 10-27-2024 Protein Ql (U) Negative [facility] Office Visit Reporton 10-27-2024 Docking Pilot Office Visit Report [facility] [address], [address] [place] [address] OFFICE VISIT Date of Service: 10/27/24 MR#: [id number] Acct: [id number] Name: AIMEE REDDY Rep #: [id number] : 2000 Provider: JOEL Jacobs ams Age/Sex: 24/F [place] [facility] [place]: Signed Intake Vital Signs 07/01/24 09:26 10/15/24 09:57 10/27/24 09:21 Height 5 ft 4 in 5 ft 4 in 5 ft 4 in Weight: 141 lb 8 oz BMI 24.3 BP 119/73 Intake Visit Reasons: 30wk ob Chief Complaint: 30wk OB Braiding Machine Operator Required: No Is patient in pain?: No [...] family current occupational status: employed current occupation: [employer] pets and animals: Yes pets and animals: [...] activity do you participate in: none ana m/pentecostalism: Jain seatbelt use: always do you feel safe [...] Negative -???-???-???-???-?? (more content not included)... Normal [facility] Urine Cultureon 10-16-2024 URC Culture exhibits no growth. Normal [facility] Comment on above: Performed By: #### M 100.2200 ####[facility] [address] [place], [address] Docking Pilot Office Visit Reporton 10-15-2024 Docking Pilot Office Visit Report [facility] [address], [address] [place] [address] OFFICE VISIT Date of Service: 10/15/24 MR#: [id number] Acct: [id number] Name: AIMEE REDDY Rep #: [id number] : 2000 Provider: ANDREW early Age/Sex: 24/F [place] [facility] [place]: Signed Intake Vital Signs 10/13/24 13:59 10/15/24 09:55 10/15/24 09:57 Height 5 ft 4 in 5 ft 4 in 5 ft 4 in Weight: 138 lb 2 oz BMI 23.7 Intake Visit Reasons: Repeat urine culture Braiding Machine Operator Required: No Is patient in pain?: No [...] activity do you participate in: none ana m/pentecostalism: Jain seatbelt use: always do you feel safe [...] fm no (more content not included)... Normal [facility] Urine cultureOrdered By: Aneesh Voss on 10-15-2024 Bacteria identified Cx Nom (U) Culture exhibits no growth. [facility] Absolute lymphocyte countOrd ered By: Ramya Voss on 10-13-2024 Lymphocytes Auto (Unsp spec) [#/Vol] 3.25 10*3/uL 0.83-4.51 [facility] Absolute neutrophil countOrd ered By: Ramya Voss on 10-13-2024 Neutrophils (Bld) [#/Vol] 12.2 10*3/uL High 2.0-7.7 [facility] Acanthocyte detectionOrdered By: Ramya Voss on 10-13-2024 Acanthocytes RARE [facility] Atypical lymphocyte percenta geOrdered By: Ramya Voss on 10-13-2024 Atypical Lymphocytes 1+ % [facility] Automated lymphocyte count a s percentage of total leukocytesOrdered By: Ramya Voss on 10-13-2024 Lymphocytes/100 WBC Auto (Unsp spec) 18.0 % Low 19-41 [facility] Basophil percentageOrdered B y: Ramya Voss on 10-13-2024 Basophils/100 WBC (Bld) 0.8 % 0-1 [facility] CBC W/Diff, Automatedon - ACANTHOCYTE RARE Normal [facility] Comment on above: Performed By: #### L 501.0250, L509.8002, L3890.6006, L100.0100 ####[facility] [address] [place], [address] Anisocytosis Ql (Bld) 1+ Normal [facility] Comment on above: Performed By: #### L 501.0250, L509.8002, L3890.6006, L100.0100 ####[facility] [address] [place], [address] ATYPICAL LYMPH 1+ Normal [facility] Comment on above: Performed By: #### L 501.0250, L509.8002, L3890.6006, L100.0100 ####[facility] [address] [place], [address] Eosinophil percentageOrdered By: Ramya Voss on 10-13-2024 Eosinophils/100 WBC (Bld) 2.0 % 0-5 [facility] Erythrocyte distribution wid th (RBC) [Ratio]Ordered By: Ramya Voss on 10-13-2024 Erythrocyte distribution width (RBC) [Entitic vol] 43.0 fL 35.1-43.9 [facility] Erythrocyte distribution wid th ratioOrdered By: Ramya Voss on 10-13-2024 Erythrocyte distribution width (RBC) [Ratio] 13.2 % 11.6-14.6 [facility] Erythrocyte distribution wid th standard deviationOrdered By: Ramya Voss on 10-13-2024 Erythrocyte distribution width (RBC) [Ratio] 43.0 fl 35.1-43.9 [facility] Glucose Challenge Gest 1H 50 yemi 10-13-2024 GLU GEST 50g 1H 115 mg/dL Normal 70-140 [facility] Comment on above: Performed By: #### L 501.0250, L509.8002, L3890.6006, L100.0100 ####[facility] [address] [facility] [place], [address] Glucose measurement at 2 carson rs post-dose gestational glucose tolerance testOrdered By: Ramya Voss on 10-13-2024 Glucose [Mass/Vol] 115 mg/dL 70-140 [facility] HIVon 10-13-2024 HIV Non-Reactive Normal Nonreactive [facility] Comment on above: Result Comment: Non- Reactive Reactive Repeatedly reactive samples must be confirmed according to CDC recommended confirmatory algorithms. The subresults for either HIVAG or AHIV can be used as an aid in the selection of the confirmation algorithm for reactive samples. Send out specimens with Reactive results to [facility] for confirmation. Order the HIV antibody detection and differentiation: #[id number] Performed By: #### L 501.0250, L509.8002, L3890.6006, L100.0100 ####[facility] [address] [facility], [address] Hematocrit Auto (Bld) [Volum e fraction]Ordered By: Ramya Voss on 10-13-2024 Hematocrit (Bld) [Volume fraction] 30.7 % Low 37-47 [facility] Hemoglobin measurementOrdere d By: Ramya Voss on 10-13-2024 Hemoglobin (Bld) [Mass/Vol] 10.3 g/dL Low 12.0-15.0 [facility] Immature granulocytes/100 WB C Auto (Bld)Ordered By: Ramya Voss on 10-13-2024 Immature granulocytes/100 WBC (Bld) 3.000 % High 0.0-0.9 [facility] Comment on above: IG% - Immature Granu locytes (promyelocytes, myelocytes and metamyelocytes) > 1% indicates that a LEFT SHIFT is Present. Laboratory - Chemistry and C hemistry - challengeOrdered By: Leonor Phillips on 10-13-2024 Glucose Ql (U) Negative [facility] Laboratory - Hematology and Cell countsOrdered By: Ramya Voss on 10-13-2024 Anisocytosis Ql (Bld) 1+ [facility] Laboratory - UrinalysisOrder ed By: Leonor Phillips on 10-13-2024 Protein Ql (U) Negative [facility] Lymphocytes Auto (Unsp spec) [#/Vol]Ordered By: Ramya Voss on 10-13-2024 Lymphocytes (Bld) [#/Vol] 3.25 10*3/uL 0.83-4.51 [facility] Lymphocytes/100 WBC Auto (Un sp spec)Ordered By: Ramya Voss on 10-13-2024 Lymphocytes/100 WBC (Bld) 18.0 % Low 19-41 [facility] MCV (mean corpuscular volume ) determinationOrdered By: Ramya Voss on 10-13-2024 MCV (RBC) [Entitic vol] 89.2 fL 81-99 [facility] Mean corpuscular hemoglobin (MCH) determinationOrdered By: Ramya Voss on 10-13-2024 MCH (RBC) [Entitic mass] 29.9 pg 27.0-32.0 [facility] Mean corpuscular hemoglobin concentration (MCHC) determinationOrdered By: Ramya Voss on 10-13-2024 MCHC (RBC) [Mass/Vol] 33.6 g/dL 32-36 [facility] Mean platelet volume determi nationOrdered By: Ramya Voss on 10-13-2024 Platelet mean volume (Bld) [Entitic vol] 12.3 fL High 6.2-12.0 [facility] Monocyte percentageOrdered B y: Ramya Voss on 10-13-2024 Monocytes/100 WBC (Bld) 8.8 % 0-10 [facility] Neutrophil percentageOrdered By: Ramya Voss on 10-13-2024 Neutrophils/100 WBC (Bld) 67.4 % 47-70 [facility] No Panel InformationOrdered By: Ramya Voss on 10-13-2024 HIV (1&2) Antibody Non-Reactive Nonreactive [facility] Comment on above: Non-ReactiveReactive Repeatedly reactive samples must be confirmed according to CDC recommended confirmatory algorithms. The subresults for either HIVAG or AHIV can be used as an aid in the selection of the confirmation algorithm for reactive samples.Send out specimens with Reactive results to [facility] for confirmation.Order the HIV antibody detection and differentiation: #[id number] Nucleated red blood cell per centageOrdered By: Ramya Voss on 10-13-2024 Nucleated RBC/100 WBC (Bld) [Ratio] 0.1 % 0-5 [facility] Dock[employer] Office Visit Reporton 10-13-2024 Docking [employer] Office Visit Report [facility] [address], [address] [place] [address] OFFICE VISIT Date of Service: 10/13/24 MR#: [id number] Acct: [id number] Name: AIMEE REDDY Rep #: [id number] : 2000 Provider: Dr. 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 Normal [facility] Platelet countOrdered By: Dave Voss on 10-13-2024 Platelets (Bld) [#/Vol] 351 10*3/uL 150-450 [facility] RBC Auto (Bld) [#/Vol]Ordere d By: Ramya Voss on 10-13-2024 RBC (Bld) [#/Vol] 3.44 10*6/uL Low 4.2-5.4 [facility] Syphilis Antibodieson 2024 Syphilis Abs Non-Reactive Normal Nonreactive [facility] Comment on above: Performed By: #### L 501.0250, L509.8002, L3890.6006, L100.0100 ####[facility] [id number] [place], [place], [address] T. pallidum abOrdered By: Dave Voss on 10-13-2024 Syphilis Total Antibody Non-Reactive Nonreactive [facility] White blood cell (WBC) count Ordered By: Ramya Bipin on 10-13-2024 WBC (Bld) [#/Vol] 18.1 10*3/uL High 4.4-11.0 [facility] CBC W/Diff, Automatedon - PATH REV Reviewed Normal [facility] Comment on above: Result Comment: SEE REPORT IN PATIENT'S EMR AMENDED REPORT 10/12/24 1609 PATH REV previously reported as: October Performed By: #### L 100.0100 ####[facility] [id number] [place], [place], [address] POC Infectious Mononucleosis AntibodyOrdered By: Elizabeth Burgess on 10-12-2024 [place]ious [place] Negative Negative [facility] h Internal Control [facility] POC STREP A- MOLECULARon POC STREP A SCREEN Negative Normal [facility] P[facility] Strep A - Molecularon Interpretation and review of laboratory results Normal [facility] S. pyogenes Ag Ql (Throat) Negative Negative [place] ED Prov Noteon 10-08-2024 ED Prov Note ED PROVIDER NOTE [facility] NAME: Aimee Reddy AGE: 24 y.o. : 2000 VISIT DATE: 10/08/2024 CSN: [id number] PCP: No, Physician Chief Complaint Patient presents [...] with biopsy; Surgeon: Sergio Gray MD; [place] [facility] [place] Service: General Surgery EGD N/A 02/24/2019 Procedure: ESOPHAGOGASTRODUODENOSCO PY with biopsy; Surgeon: Sergio Gray MD; [place] [facility] [place]; Service: General Surgery SPLENECTOMY, TOTAL 2011 [...] Financial Resource Strain: Unknown (11/16/2021) Received from [facility] Overall Financial Resource Strain (CARDIA) Difficulty of Paying Living Expenses: Patient declined Food Insecurity: Unknown (11/16/2021) Received from [facility] Hunger Vital Sign Worried About Running Out of Food in the Last Year: Patient declined Ran Out of Food in the Last Year: Patient declined Transportation Needs: Unknown (11/16/2021) Received from [facility] PRAPARE - Transportation Lack of Transportation (Medical): Patient declined Lack of Transportation (Non-Medical): Patient declined Physical Activity: Unknown (11/16/2021) Received from [facility] Exercise Vital Sign Days of Exercise per Week: Patient declined Minutes of Exercise per Session: Patient declined Stress: Unknown (11/16/2021) Received fro (more content not included)... Normal [facility] POC STREP A - MOLECULAR RALS on 10-08-2024 POC STREP A SCREEN Negative Normal [facility] Cult, Bloodon 09-28-2024 Cult, Blood [...] called to and read back by:ACE ONTIVEROS [id number] PER DY/NM Report Status FINAL 09/28/2024 [facility] Comment on above: Performed By: #### B CUL2 #### [facility] [address] [id number] Laboratory Aide: Victor Manuel Washington MD [facility] [address] [place] [address] Laboratory Aide: MD Linden Stanton,Bloodon 09-28-2024 Cult,Blood Specimen Description .BLOOD Special Requests RIGHT AC Culture NO GROWTH 6 DAYS Report Status FINAL 09/28/2024 [facility] Comment on above: Performed By: #### B C #### [facility] [address] [place] [address] Laboratory Aide: Ric Eldridge MD Cult,Urineon 09-24-2024 Cult,Urine Specimen [...] Tobramycin <=1 SUSCEPTIBLE Trimethoprim/Sulfa <=20 SUSCEPTIBLE Susceptible [facility] Comment on above: Performed By: #### U #### [facility] [address] [place], [place] [id number] Laboratory Aide: Victor Manuel Washington MD [facility] [address] [place] [address] Laboratory Aide: Ric Eldridge MD Absolute lymphocyte countOrd ered By: Mimi Caldera on 09-23-2024 Lymphocytes Auto (Unsp spec) [#/Vol] 2.23 10*3/uL 0.83-4.51 [facility] Comment on above: Previous reported re sult: 2.88 X10^3/uLEdited by: JOSEPH on 09/23/24:0811 AMENDED REPORT 09/23/24 0811 Absolute Lymph previously reported as: 2.88 X10^3/uL Absolute neutrophil countOrd ered By: Mimi Caldera on 09-23-2024 Neutrophils (Bld) [#/Vol] 14.3 10*3/uL High 2.0-7.7 [facility] Comment on above: Previous reported re sult: 13.2 X10^3/uLEdited by: JOSEPH on 09/23/24:0813 AMENDED REPORT 09/23/24 0813 Absolute Neut previously reported as: 13.2 H X10^3/uL Automated lymphocyte count a s percentage of total leukocytesOrdered By: Mimi Caldera on 09-23-2024 Lymphocytes/100 WBC Auto (Unsp spec) [facility] Comment on above: Previous reported re sult: 15.5 %Edited by: JOSEPH on 09/23/24:0809 Basophil percentageOrdered B y: Mimi Caldera on 09-23-2024 Basophils (%) (Auto) SITE RELIABILITY ENGINEER [facility] Comment on above: Previous reported re sult: 0.3 %Edited by: JOSEPH on 09/23/24:0809 Blood band neutrophil count as percentage of total leukocytesOrdered By: Mimi Caldera on 09-23-2024 Band form neutrophils/100 WBC (Bld) 3 % 0-5 [facility] Blood eosinophils/100 leukoc ytesOrdered By: Mimi Caldera on 09-23-2024 Eosinophils/100 WBC (Bld) 2 % 0-5 [facility] Blood lymphocytes/100 leukoc ytesOrdered By: Mimi Caldera on 09-23-2024 Lymphocytes/100 WBC (Bld) 12 % Low 19-41 [facility] Blood metamyelocytes/100 steph kocytesOrdered By: Mimi Caldera on 09-23-2024 Metamyelocytes/100 WBC (Bld) Not Reportable [facility] Blood monocytes/100 leukocyt esOrdered By: Mimi Caldera on 09-23-2024 Monocytes/100 WBC (Bld) 9 % 0-10 [facility] Blood polychromasia detectio n by light microscopyOrdered By: Mimi Caledra on 09-23-2024 Polychromasia LM Ql (Bld) 1+ [facility] Blood promyelocytes/100 leuk ocytesOrdered By: Mimi Caldera on 09-23-2024 Promyelocytes/100 WBC (Bld) Not Reportable [facility] Blood segmented neutrophils/ 100 leukocytesOrdered By: Mimi Caldera on 09-23-2024 Segmented neutrophils/100 WBC (Bld) 74 % High 47-70 [facility] Eosinophil percentageOrdered By: Mimi Caldera on 09-23-2024 Eosinophils (%) (Auto) SITE RELIABILITY ENGINEER [facility] Comment on above: Previous reported re sult: 1.5 %Edited by: JOSEPH on 09/23/24:0809 Erythrocyte distribution wid th (RBC) [Ratio]Ordered By: Mimi Caldera on 09-23-2024 Erythrocyte distribution width (RBC) [Entitic vol] 46.9 fL High 35.1-43.9 [facility] Erythrocyte distribution wid th ratioOrdered By: Mimi Caldera on 09-23-2024 Erythrocyte distribution width (RBC) [Ratio] 13.8 % 11.6-14.6 [facility] Erythrocyte distribution wid th standard deviationOrdered By: Mimi Caldera on 09-23-2024 Erythrocyte distribution width (RBC) [Ratio] 46.9 fl High 35.1-43.9 [facility] Hematocrit Auto (Bld) [Volum e fraction]Ordered By: Mimi Caldera on 09-23-2024 Hematocrit (Bld) [Volume fraction] 28.0 % Low 37-47 [facility] Hemoglobin measurementOrdere d By: Mimi Caldera on 09-23-2024 Hemoglobin (Bld) [Mass/Vol] 9.4 g/dL Low 12.0-15.0 [facility] Immature granulocytes/100 WB C Auto (Bld)Ordered By: Mimi Caldera on 09-23-2024 Immature Granulocyte % (Auto) SITE RELIABILITY ENGINEER [facility] Comment on above: Previous reported re sult: 1.000 %Edited by: JOSEPH on 09/23/24:0809IG% - Immature Granulocytes (promyelocytes, myelocytes and metamyelocytes) > 1% indicates that a LEFT SHIFT is Present. Immature granulocytes/100 WBC (Bld) SITE RELIABILITY ENGINEER [facility] Comment on above: Previous reported re sult: 1.000 %Edited by: JOSEPH on 09/23/24:0809IG% - Immature Granulocytes (promyelocytes, myelocytes and metamyelocytes) > 1% indicates that a LEFT SHIFT is Present. Laboratory - Hematology and Cell countsOrdered By: Mimi Caldera on 09-23-2024 Anisocytosis Ql (Bld) 1+ [facility] Lymphocytes Auto (Unsp spec) [#/Vol]Ordered By: Mimi Caldera on 09-23-2024 Lymphocytes (Bld) [#/Vol] 2.23 10*3/uL 0.83-4.51 [facility] Comment on above: Previous reported re sult: 2.88 X10^3/uLEdited by: JOSEPH on 09/23/24:0811 AMENDED REPORT 09/23/24 0811 Absolute Lymph previously reported as: 2.88 X10^3/uL Lymphocytes/100 WBC Auto (Un sp spec)Ordered By: Mimi Caldera on 09-23-2024 Lymphocytes (%) (Auto) SITE RELIABILITY ENGINEER [facility] Comment on above: Previous reported re sult: 15.5 %Edited by: JOSEPH on 09/23/24:0809 MCV (mean corpuscular volume ) determinationOrdered By: Mimi Caldera on 09-23-2024 MCV (RBC) [Entitic vol] 91.5 fL 81-99 [facility] Mean corpuscular hemoglobin (MCH) determinationOrdered By: Mimi Caldera on 09-23-2024 MCH (RBC) [Entitic mass] 30.7 pg 27.0-32.0 [facility] Mean corpuscular hemoglobin concentration (MCHC) determinationOrdered By: Mimi Caldera on 09-23-2024 MCHC (RBC) [Mass/Vol] 33.6 g/dL 32-36 [facility] Mean platelet volume determi nationOrdered By: Mimi Caldera on 09-23-2024 Platelet mean volume (Bld) [Entitic vol] 11.9 fL 6.2-12.0 [facility] Metamyelocytes/100 WBC (Bld) Ordered By: Mimi Caldera on 09-23-2024 Metamyelocytes % Not Reportable [facility] Monocyte percentageOrdered B y: Mimi Caldera on 09-23-2024 Monocytes (%) (Auto) SITE RELIABILITY ENGINEER [facility] Comment on above: Previous reported re sult: 10.7 %Edited by: JOSEPH on 09/23/24:0809 Neutrophil percentageOrdered By: Mimi Caldera on 09-23-2024 Neutrophils (%) (Auto) SITE RELIABILITY ENGINEER [facility] Comment on above: Previous reported re sult: 71.0 %Edited by: JOSEPH on 09/23/24:0809 Nucleated red blood cell per centageOrdered By: Mimi Caldera on 09-23-2024 Nucleated RBC/100 WBC (Bld) [Ratio] 0 % 0-5 [facility] OB Limited With Biometricson 09-23-2024 OB Limited With Biometrics [facility] Services [address] [place], [place] [id number] OB Limited With Biometrics MR#: [id number] Acct: [id number] Name: AIMEE REDDY Rep #: [id number] : 2000 F 24 From: Yogesh Cabrales MD PCP: Status: ADM IN Study: OB Limited With Biometrics Date of Exam: 09/23 Exam# [id number] Ordering Dr: Leonor Phillips EXAM: US Pelvis [...] single live intrauterine as above. Reading Location: [facility] CC: Dr. Leonor Phillips MD Freight Agent: Signed Normal [facility] Pathologist review Zhang (Unsp spec) [Interp]Ordered By: Mimi Caldera on 09-23-2024 Differential Pathologist's Review October [facility] Differential Pathologist's Review Reviewed [facility] Comment on above: Previous reported re [...] 09-23-2024 Platelets (Bld) [#/Vol] 336 10*3/uL 150-450 [facility] Platelet estimateOrdered By: Mimi Caldera on 09-23-2024 Platelets LM Ql (Bld) ADEQUATE ADEQ [facility] Platelets LM Ql (Bld)Ordered By: Mimi Caldera on 09-23-2024 Platelet Estimate ADEQUATE ADEQ [facility] Polychromasia LM Ql (Bld)Ord ered By: Mimi Caldera on 09-23-2024 Polychromasia 1+ [facility] Promyelocytes/100 WBC (Bld)O rdered By: Mimi Caldera on 09-23-2024 Promyelocytes % Not Reportable [facility] RBC Auto (Bld) [#/Vol]Ordere d By: Mimi Caldera on 09-23-2024 RBC (Bld) [#/Vol] 3.06 10*6/uL Low 4.2-5.4 [facility] Review by pathologistOrdered By: Mimi Caldera on 09-23-2024 Pathologist review Zhang (Unsp spec) [Interp] Reviewed [facility] Comment on above: Previous reported re [...] Neutrophils/100 WBC (Bld) 74 % High 47-70 [facility] White blood cell (WBC) count Ordered By: Mimi Verenice on 09-23-2024 WBC (Bld) [#/Vol] 18.6 10*3/uL High 4.4-11.0 [facility] BMPon 09-22-2024 Anion gap [Moles/Vol] 10 mmol/L 9 - 17 mmol/L [facility] Calcium [Mass/Vol] 6.8 mg/dL Low 8.6 - 10. 4 mg/dL [facility] Chloride [Moles/Vol] 104 mmol/L 98 - 10 7 mmol/L [facility] CO2 [Moles/Vol] 23 mmol/L 20 - 31 mmol/L [facility] Creatinine [Mass/Vol] 0.4 mg/dL Low 0.5 - 0.9 mg/dL [facility] Est, Glom Filt Rate - PINF [facility] Comment on above: These results are [...] 73 mg/dL 70 - 99 mg/dL [facility] Potassium [Moles/Vol] 3.8 mmol/L 3.7 - 5.3 mmol/L [facility] Sodium [Moles/Vol] 137 mmol/L 135 - 144 mmol/L [facility] Urea nitrogen [Mass/Vol] 8 mg/dL 6 - 20 mg/dL [facility] Basic Metabolic Profon 09-22 Anion gap [Moles/Vol] 10 mmol/L Normal 9-17 [facility] Comment on above: Performed By: #### B MP, CDP, LIVP, LIP #### [facility] [address] [place] [address] Laboratory Aide: Ric Eldridge MD Calcium [Mass/Vol] 6.8 mg/dL Low 8.6-10.4 [facility] Comment on above: Performed By: #### B MP, CDP, LIVP, LIP #### [facility] [address] [place], [place] [id number] Laboratory Aide: Ric Eldridge MD Chloride [Moles/Vol] 104 mmol/L Normal 98-107 [facility] Comment on above: Performed By: #### B MP, CDP, LIVP, LIP #### [facility] [address] [place] [address] Laboratory Aide: Ric Eldridge MD CO2 [Moles/Vol] 23 mmol/L Normal 20-31 [facility] Comment on above: Performed By: #### B MP, CDP, LIVP, LIP #### [facility] [address] [id number] Laboratory Aide: Ric Eldridge MD Creatinine [Mass/Vol] 0.4 mg/dL Low 0.5-0.9 [facility] Comment on above: Performed By: #### B MP, CDP, LIVP, LIP #### [facility] [address] [id number] Laboratory Aide: Ric Eldridge MD GFR/1.73 sq M.predicted among non-blacks MDRD (S/P/Bld) [Vol rate/Area] mL/min/{1.73_m2} Normal >60 [facility] Comment on above: Result Comment: These results [...] MP, CDP, LIVP, LIP #### [facility] [address] [place], [place] [id number] Laboratory Aide: Ric Eldridge MD Glucose [Mass/Vol] 73 mg/dL Normal 70-99 [facility] Comment on above: Performed By: #### B MP, CDP, LIVP, LIP #### [facility] [address] [place], [place] [id number] Laboratory Aide: Ric Eldridge MD Potassium [Moles/Vol] 3.8 mmol/L Normal 3.7-5.3 [facility] Comment on above: Performed By: #### B MP, CDP, LIVP, LIP #### [facility] [address] [place], [place] [id number] Laboratory Aide: Ric Eldridge MD Sodium [Moles/Vol] 137 mmol/L Normal 135-144 [facility] Comment on above: Performed By: #### B MP, CDP, LIVP, LIP #### [facility] [address] [place], [place] [id number] Laboratory Aide: Ric Eldridge MD Urea nitrogen [Mass/Vol] 8 mg/dL Normal 6-20 [facility] Comment on above: Performed By: #### B MP, CDP, LIVP, LIP #### [facility] [address] [place], [place] [id number] Laboratory Aide: Ric Eldridge MD CBC with Auto Differentialon 09-22-2024 Absolute Bands 1.04 High [place] [facility] Bands 5 % 0 - 10 % [facility] Basophils (Bld) [#/Vol] [facility] Basophils/100 WBC (Bld) 0 - 2 % [facility] Eosinophils % 0 - 5 % [facility] Eosinophils (Bld) [#/Vol] [facility] Erythrocyte distribution width (RBC) [Ratio] 13.9 % 12.1 - 15.2 % [facility] Hematocrit (Bld) [Volume fraction] 33.5 % Low 36.0 - 46.0 % [facility] Hemoglobin (Bld) [Mass/Vol] 11.3 g/dL Low 12.0 - 16.0 g/dL [facility] Immature granulocytes (Bld) [#/Vol] [facility] Immature granulocytes/100 WBC (Bld) 0 % [facility] Interpretation and review of laboratory results Abnormal [facility] Lymphocytes/100 WBC (Bld) 18 % 15 - 40 % [facility] Lymphocytes/100 WBC (Bld) 3.74 % [facility] MCH (RBC) [Entitic mass] 31 pg 26.0 - 34.0 pg [facility] MCHC (RBC) [Mass/Vol] 33.7 g/dL 31.0 - 37.0 g/dL [facility] MCV (RBC) [Entitic vol] 91.8 fL 80.0 - 100.0 fL [facility] Monocytes/100 WBC (Bld) 7 % 4 - 8 % [facility] Monocytes/100 WBC (Bld) 1.46 % High [facility] Morphology Zhang (Bld) [Interp] Manual Differential Performed [facility] Neutrophils/100 WBC (Bld) 70 % 47 - 75 % [facility] Platelet mean volume (Bld) [Entitic vol] 11 fL 6.0 - 12.0 fL [facility] Platelets (Bld) [#/Vol] 335 10*3/uL [facility] RBC (Bld) [#/Vol] 3.65 10*6/uL Low 4.00 - 5.2 0 m/uL [facility] Segmented neutrophils/100 WBC (Bld) 14.56 % High [facility] WBC other (Bld) [#/Vol] 20.8 Critically high [facility] CBC with Diffon 09-22-2024 Abs. Bands 1.04 k/uL High 0.0-1.0 [facility] Comment on above: Performed By: #### B MP, CDP, LIVP, LIP #### [facility] [address] [place] [address] Laboratory Aide: Ric Eldridge MD Abs. Basophil Normal 0.0-0.2 [facility] Comment on above: Performed By: #### B MP, CDP, LIVP, LIP #### [facility] [address] [place] [address] Laboratory Aide: Ric Eldridge MD Abs. Eosinophil Normal 0.0-0.4 [facility] Comment on above: Performed By: #### B MP, CDP, LIVP, LIP #### [facility] [address] [place] [address] Laboratory Aide: Ric Eldridge MD Abs.Imm.Granulocyte Normal 0.00-0.30 [facility] Comment on above: Performed By: #### B MP, CDP, LIVP, LIP #### [facility] [address] [place] [address] Laboratory Aide: Ric Eldridge MD Abs.Neutrophil (Seg) 14.56 k/uL High 2.5-7.0 [facility] Comment on above: Performed By: #### B MP, CDP, LIVP, LIP #### [facility] [address] [place] [address] Laboratory Aide: Ric Eldridge MD Bands 5 % Normal 0-10 [facility] Comment on above: Performed By: #### B MP, CDP, LIVP, LIP #### [facility] [address] [place] [address] Laboratory Aide: Ric Eldridge MD Basophil Normal 0-2 [facility] Comment on above: Performed By: #### B MP, CDP, LIVP, LIP #### [facility] [address] [place] [address] Laboratory Aide: Ric Eldridge MD Eosinophil Normal 0-5 [facility] Comment on above: Performed By: #### B MP, CDP, LIVP, LIP #### [facility] [address] [place] [address] Laboratory Aide: Ric Eldridge MD Immature Granulocyte Normal 0 [facility] Comment on above: Performed By: #### B MP, CDP, LIVP, LIP #### [facility] [address] [place] [address] Laboratory Aide: Ric Eldridge MD Lymphocytes (Bld) [#/Vol] 3.74 10*3/uL Normal 1.0-4.8 [facility] Comment on above: Performed By: #### B MP, CDP, LIVP, LIP #### [facility] [address] [place] [address] Laboratory Aide: Ric Eldridge MD Lymphocytes/100 WBC (Bld) 18 % Normal 15-40 [facility] Comment on above: Performed By: #### B MP, CDP, LIVP, LIP #### [facility] [address] [place] [address] Laboratory Aide: Ric Eldridge MD Monocytes (Bld) [#/Vol] 1.46 10*3/uL High 0.0-1.0 [facility] Comment on above: Performed By: #### B MP, CDP, LIVP, LIP #### [facility] [address] [place] [address] Laboratory Aide: Ric Eldridge MD Monocytes/100 WBC (Bld) 7 % Normal 4-8 [facility] Comment on above: Performed By: #### B MP, CDP, LIVP, LIP #### [facility] [address] [place] [address] Laboratory Aide: Ric Eldridge MD Morphology Zhang (Bld) [Interp] Manual Differential Performed Normal [facility] Comment on above: Performed By: #### B MP, CDP, LIVP, LIP #### [facility] [address] [place] [address] Laboratory Aide: Ric Eldridge MD Neutrophil (Seg) 70 % Normal 47-75 [facility] Comment on above: Performed By: #### B MP, CDP, LIVP, LIP #### [facility] [address] [place], [place] [id number] Laboratory Aide: Ric Eldridge MD Erythrocyte distribution width (RBC) [Ratio] 13.9 % Normal 12.1-15.2 [facility] Comment on above: Performed By: #### B MP, CDP, LIVP, LIP #### [facility] [address] [place] [address] Laboratory Aide: Ric Eldridge MD Hematocrit (Bld) [Volume fraction] 33.5 % Low 36.0-46.0 [facility] Comment on above: Performed By: #### B MP, CDP, LIVP, LIP #### [facility] [address] [place] [address] Laboratory Aide: Rci Eldridge MD Hemoglobin (Bld) [Mass/Vol] 11.3 g/dL Low 12.0-16.0 [facility] Comment on above: Performed By: #### B MP, CDP, LIVP, LIP #### [facility] [address] [place] [address] Laboratory Aide: Ric Eldridge MD MCH (RBC) [Entitic mass] 31.0 pg Normal 26.0-34.0 [facility] Comment on above: Performed By: #### B MP, CDP, LIVP, LIP #### [facility] [address] [place] [address] Laboratory Aide: Ric Eldridge MD MCHC (RBC) [Mass/Vol] 33.7 g/dL Normal 31.0-37.0 [facility] Comment on above: Performed By: #### B MP, CDP, LIVP, LIP #### [facility] [address] [place] [address] Laboratory Aide: Ric Eldridge MD MCV (RBC) [Entitic vol] 91.8 fL Normal 80.0-100.0 [facility] Comment on above: Performed By: #### B MP, CDP, LIVP, LIP #### [facility] [address] [place] [address] ([phone] Laboratory Aide: Ric Eldridge MD Platelet mean volume (Bld) [Entitic vol] 11.0 fL Normal 6.0-12.0 [facility] Comment on above: Performed By: #### B MP, CDP, LIVP, LIP #### [facility] [address] [place] [address] [phone] Laboratory Aide: Ric Eldridge MD Platelets (Bld) [#/Vol] 335 10*3/uL Normal 140-450 [facility] Comment on above: Performed By: #### B MP, CDP, LIVP, LIP #### [facility] [address] [place] [address] Laboratory Aide: Ric Eldridge MD RBC (Bld) [#/Vol] 3.65 10*6/uL Low 4.00-5.20 [facility] Comment on above: Performed By: #### B MP, CDP, LIVP, LIP #### [facility] [address] [place], [place] [phone] Laboratory Aide: Ric Eldridge MD WBC (Bld) [#/Vol] 20.8 10*3/uL Critically high 3.5-11.0 [facility] Comment on above: Performed By: #### B MP, CDP, LIVP, LIP #### [facility] [address] [place] [address] Laboratory Aide: Ric Eldridge MD H AND P Exam - OB/GYNon 04-0 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 [facility] Medical Records Department [address] [place] [address] 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 09/22/24 1735 MR#: [id number] Acct: [id number] Name: AIMEE REDDY Rep #: [id number] : 2000 24 From: Mimi Thomas DO PCP: Status:ADM ASMITA Location: [place] [address] HPI - General General Date of Admission: 09/22/24 HPI Narrative AIMEE REDDY, is a 24 y/o @ 24 weeks 5 days who presents to [facility] from [facility] with the diagnosis of acute pyelonephritis [...] family current occupational status: employed current occupation: [employer] pets and animals: Yes pets and animals: [...] activity do you participate in: none ana m/pentecostalism: Jain seatbelt use: always do you feel safe [...] 09/22/24 -??? (more content not included)... Normal [facility] Hepatic Function Panelon Albumin [Mass/Vol] 3.7 g/dL 3.5 - 5.2 g/dL [employer] Albumin/Globulin [Mass ratio] 1 {ratio} 1.0 - 2.5 [facility] ALP [Catalytic activity/Vol] 86 U/L 35 - 104 U/L [facility] ALT [Catalytic activity/Vol] 18 U/L 5 - 33 U/L [facility] AST [Catalytic activity/Vol] 19 U/L NINF - 32 U/L [facility] Bilirubin [Mass/Vol] mg/dL Low 0.3 - 1 .2 mg/dL [employer] Bilirubin.direct [Mass/Vol] mg/dL NINF - 0.3 mg/dL [facility] Bilirubin.indirect [Mass/Vol] Can not be calculated 0.0 - 1.0 mg/dL [employer] Globulin (S) [Mass/Vol] 3.6 g/dL 1.5 - 3.8 g/dL [facility] Interpretation and review of laboratory results Abnormal [employer] Protein [Mass/Vol] 7.3 g/dL 6.4 - 8.3 g/dL [facility] - Chemistry and C hemistry - challengeOrdered By: Ramya Voss on 09-22-2024 Glucose Ql (U) Negative [facility] - UrinalysisOrder ed By: Ramya Voss on 09-22-2024 Protein Ql (U) Negative [facility] Lipaseon 09-22-2024 Lipase [Catalytic activity/Vol] 10 U/L Low 13 - 60 U/L [facility] Lipase [Catalytic activity/Vol] 10 U/L Low 13-60 [facility] Comment on above: Performed By: #### B MP, CDP, LIVP, LIP #### [facility] [address] [place] [address] Laboratory Aide: Ric Eldridge MD Liver Profileon 09-22-2024 ALT [Catalytic activity/Vol] 18 U/L Normal 5-33 [facility] Comment on above: Performed By: #### B MP, CDP, LIVP, LIP #### [facility] [address] [place] [address] Laboratory Aide: Ric Eldridge MD Albumin [Mass/Vol] 3.7 g/dL Normal 3.5-5.2 [facility] Comment on above: Performed By: #### B MP, CDP, LIVP, LIP #### [facility] [address] [place] [address] Laboratory Aide: Ric Eldridge MD Albumin/Glob Ratio 1.0 Normal 1.0-2.5 [facility] Comment on above: Performed By: #### B MP, CDP, LIVP, LIP #### [facility] [address] [place] [address] Laboratory Aide: Ric Eldridge MD Alkaline Phos 86 U/L Normal 35-104 [facility] Comment on above: Performed By: #### B MP, CDP, LIVP, LIP #### [facility] [address] [place], [place] [phone] Laboratory Aide: Ric Eldridge MD AST [Catalytic activity/Vol] 19 U/L Normal <32 [facility] Comment on above: Performed By: #### B MP, CDP, LIVP, LIP #### [facility] [address] [place], [place] [phone] Laboratory Aide: Ric Eldridge MD Bilirubin [Mass/Vol] mg/dL Low 0.3-1.2 [facility] Comment on above: Performed By: #### B MP, CDP, LIVP, LIP #### [facility] [address] [place], [place] [id number] Laboratory Aide: Ric Eldridge MD Bilirubin, Indirect Can not be calculated Normal 0.0-1 .0 [facility] Comment on above: Performed By: #### B MP, CDP, LIVP, LIP #### [facility] [address] [place], [place] [phone] Laboratory Aide: Ric Eldridge MD Bilirubin.indirect [Mass/Vol] mg/dL Normal <0.3 [facility] Comment on above: Performed By: #### B MP, CDP, LIVP, LIP #### [facility] [address] [place], [place] [phone] Laboratory Aide: Ric Eldridge MD Globulin (S) [Mass/Vol] 3.6 g/dL Normal 1.5-3.8 [facility] Comment on above: Performed By: #### B MP, CDP, LIVP, LIP #### [facility] [address] [place], [place] [phone] Laboratory Aide: Ric Eldridge MD Protein [Mass/Vol] 7.3 g/dL Normal 6.4-8.3 [facility] Comment on above: Performed By: #### B MP, CDP, LIVP, LIP #### [facility] [address] [facility] [address] Laboratory Aide: Ric Eldridge MD Microscopic Urinalysison - [facility] Bacteria LM Ql (Urine sed) 4+ Abnormal None [facility] Epithelial cells LM.HPF (Urine sed) [#/Area] 2 TO 5 /HPF [facility] Interpretation and review of laboratory results Abnormal [email or web address] RBC LM.HPF (Urine sed) [#/Area] 0 TO 2 [facility] WBC LM.HPF (Urine sed) [#/Area] 2 TO 5 0 /HPF [facility] No Panel Informationon 09-22 Interpretation and review of laboratory results Abnormal [email or web address] [employer] Office Visit Reporton 09-22-2024 Dock[employer] Office Visit Report [facility] [address], [address] [place] [address] OFFICE VISIT Date of Service: 09/22/24 MR#: [id number] Acct: [id number] Name: AIMEE REDDY Rep #: [id number] : 2000 Provider: ANDREW early Age/Sex: 24/F [place] [facility] [place]: Signed Intake Vital Signs 07/01/24 09:26 08/26/24 09:30 09/22/24 08:36 Height 5 ft 4 in 5 ft 4 in 5 ft 4 in Weight: 137 lb 4 oz BMI 23.6 BP 98/60 Intake Visit Reasons: 25wk ob 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 -???-???-??? (more content not included)... Normal [facility] US GALLBLADDER RUQon 025 US GALLBLADDER [...] Trejo Jr., MD 09/22/24 Final result Normal [facility] US Gallbladderon 09-22-2024 Prominence of the right renal collecting system. In order to see if this is more related to than it is obstruction, I would recommend a dedicated bilateral renal and bladder ultrasound, including resistive indices and evaluation of the ureteral jets. The findings were discussed with Dr. Delgadillo in the ED. [facility] EXAM: US GALLBLADDER RUQ. [...] are normal. Aorta nonaneurysmal. IVC normal. [facility] Richadr Trejo Jr., MD - 09/22/2024 EXAM: US [...] with Dr. Delgadillo in the ED. [facility] Radiology Study observation (narrative) [facility] US GallbladderOrdered By: Vinay Trejo on 09-22-2024 [facility] Work Phone: US RENAL COMPLETEon 09-23-19 [...] Carmelo Kwan MD 09/22/24 Final result Normal [facility] Urinalysison 09-22-2024 Bilirubin Ql (U) Negative NEGATIVE [facility] Clarity (U) Hazy Abnormal Clear [facility] Color (U) Yellow Yellow [facility] Comment [facility] Glucose Test strip (U) [Mass/Vol] Negative NEGATIVE mg/dL [facility] Hemoglobin Auto test strip Ql (U) TRACE Abnormal NEGATIVE [facility] Interpretation and review of laboratory results Abnormal [facility] Ketones (U) [Mass/Vol] Negative NEGATIVE mg/dL [facility] Leukocyte esterase Test strip Ql (U) Negative NEGATIVE [facility] Nitrite Ql (U) Positive Abnormal NEGATIVE [facility] pH (U) 7 [pH] 5.0 - 8.0 [facility] Protein (U) [Mass/Vol] TRACE Abnormal NEGATIVE mg/dL [facility] Specific gravity (U) [Rel density] 1.01 1.005 - 1.030 [facility] Urobilinogen Qn (U) Normal 0.0 - 1. 0 EU/dL [facility] Urinalysis, Routineon 2024 Bilirubin, SemiQt,Ur Negative Normal NEG [facility] Comment on above: Performed By: #### U HUMERAO, UA #### [facility] [address] [place] [address] Laboratory Aide: Ric Eldridge MD Blood, Urine TRACE Abnormal NEG [facility] Comment on above: Performed By: #### U HUMERAO, UA #### [facility] [address] [place] [address] Laboratory Aide: Ric Eldridge MD Clarity (U) Hazy Abnormal CLEAR [facility] Comment on above: Performed By: #### U MICAO, UA #### [facility] [address] [place], [place] [phone] Laboratory Aide: Ric Eldridge MD Color (U) Yellow Normal YEL [facility] Comment on above: Performed By: #### U HUMERAO, UA #### [facility] [address] [place] [address] Laboratory Aide: Ric Eldridge MD Comment Normal [facility] Comment on above: Performed By: #### U MICAO, UA #### [facility] [address] [place] [address] Laboratory Aide: Ric Eldridge MD Glucose Ql (U) Negative Normal NEG [facility] Comment on above: Performed By: #### U MICAO, UA #### [facility] [address] [place] [address] Laboratory Aide: Ric Eldridge MD Ketones Ql (U) Negative Normal NEG [facility] Comment on above: Performed By: #### U MICAO, UA #### [facility] [address] [place] [address] Laboratory Aide: Ric Eldridge MD Leukocyte esterase Test strip Ql (U) Negative Normal NEG [facility] Comment on above: Performed By: #### U MICAO, UA #### [facility] [address] [place] [address] Laboratory Aide: Ric Eldridge MD Nitrite,Ur Positive Abnormal NEG [facility] Comment on above: Performed By: #### U MICAO, UA #### [facility] [address] [place] [address] Laboratory Aide: Ric Eldridge MD PH,Ur 7.0 Normal 5.0-8.0 [facility] Comment on above: Performed By: #### U MICAO, UA #### [facility] [address] [place] [address] Laboratory Aide: Ric Eldridge MD Protein Ql (U) TRACE Abnormal NEG [facility] Comment on above: Performed By: #### U MICAO, UA #### [facility] [address] [place] [address] Laboratory Aide: Ric Eldridge MD Spec. [place],Ur 1.010 Normal 1.005-1.030 [facility] Comment on above: Performed By: #### U MICAO, UA #### [facility] [address] [place], [place] [phone] Laboratory Aide: Ric Eldridge MD Urobilinogen,Ur Normal Normal 0.0-1.0 [facility] Comment on above: Performed By: #### U MICAO, UA #### [facility] [address] [place], [place] [id number] Laboratory Aide: Ric Eldridge MD Urinalysis,Microon 5 ----- Normal [facility] Comment on above: Performed By: #### U MICAO, UA #### [facility] [address] [place], [place] [phone] Laboratory Aide: Ric Eldridge MD Bacteria 4+ Abnormal NONE [facility] Comment on above: Performed By: #### U MICAO, UA #### [facility] [address] [place], [place] [id number] Laboratory Aide: Ric Eldridge MD Epithelial cells LM Ql (Urine sed) 2 TO 5 Normal [facility] Comment on above: Performed By: #### U MICAO, UA #### [facility] [address] [place], [place] [phone] Laboratory Aide: Ric Eldridge MD Urine RBC's 0 TO 2 Normal 0-2 [facility] Comment on above: Performed By: #### U MICAO, UA #### [facility] [address] [place], [place] [phone] Laboratory Aide: Ric Eldridge MD Urine WBC's 2 TO 5 Normal 0 [facility] Comment on above: Performed By: #### U MICAO, UA #### [facility] [address] [place], [place] [phone] Laboratory Aide: Ric Eldridge MD Laboratory - Chemistry and C hemistry - challengeOrdered By: Leonor Phillips on 08-26-2024 Glucose Ql (U) Negative [facility] - UrinalysisOrder ed By: Leonor Phillips on 08-26-2024 Protein Ql (U) Negative [facility] Docking [employer] Office Visit Reporton 08-26-2024 Docking Pilot Office Visit Report [facility] [address], [address] [place] [address] OFFICE VISIT Date of Service: 08/26/24 MR#: [id number] Acct: [id number] Name: AIMEE REDDY Rep #: [id number] : 2000 Provider: Dr. 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 Normal [facility] CBC with Auto Differentialon 08-08-2024 Basophils (Bld) [#/Vol] 0.05 10*3/uL [employer] Basophils/100 WBC (Bld) 0 % 0 - 2 % [facility] Eosinophils (Bld) [#/Vol] 0.33 10*3/uL [facility] Eosinophils/100 WBC (Bld) 2 % 0 - 5 % [facility] Erythrocyte distribution width (RBC) [Ratio] 13.5 % 12.1 - 15.2 % [facility] Hematocrit (Bld) [Volume fraction] 34.2 % Low 36.0 - 46.0 % [facility] Hemoglobin (Bld) [Mass/Vol] 12.0 g/dL 12.0 - 16.0 g/dL [employer] Immature granulocytes (Bld) [#/Vol] 0.06 10*3/uL [facility] Immature granulocytes/100 WBC (Bld) 0 % 0 - 5 % [facility] Interpretation and review of laboratory results Abnormal [facility] Lymphocytes/100 WBC (Bld) 28 % 15 - 40 % [facility] Lymphocytes/100 WBC (Bld) 4.04 % [facility] MCH (RBC) [Entitic mass] 31.1 pg 26.0 - 34.0 pg [facility] MCHC (RBC) [Mass/Vol] 35.1 g/dL 31.0 - 37.0 g/dL [facility] MCV (RBC) [Entitic vol] 88.6 fL 80.0 - 100.0 fL [facility] Monocytes/100 WBC (Bld) 9 % High 4 - 8 % [facility] Monocytes/100 WBC (Bld) 1.31 % High [facility] Neutrophils/100 WBC (Bld) 61 % 47 - 75 % [facility] Platelet mean volume (Bld) [Entitic vol] 10.9 fL 6.0 - 12.0 fL [facility] Platelets (Bld) [#/Vol] 354 10*3/uL [facility] RBC (Bld) [#/Vol] 3.86 10*6/uL Low 4.00 - 5.2 0 m/uL [facility] Segmented neutrophils/100 WBC (Bld) 8.65 % High [facility] WBC other (Bld) [#/Vol] 14.4 High [facility] CBC with Diffon 08-08-2024 Abs. Basophil 0.05 k/uL Normal 0.00-0.20 [facility] Comment on above: Performed By: #### DERRICK WILDER #### [facility] [address] [place] [address] Laboratory Aide: Ric Eldridge MD Abs.Imm.Granulocyte 0.06 k/uL Normal 0.00-0.30 [facility] Comment on above: Performed By: #### DERRICK WILDER #### [facility] [address] [place], [place] [phone] Laboratory Aide: Ric Eldridge MD Abs.Neutrophil (Seg) 8.65 k/uL High 2.5-7.0 [facility] Comment on above: Performed By: #### U HUMERAO, UA #### [facility] [address] [place], [place] [id number] Laboratory Aide: iRc Eldridge MD Basophils/100 WBC (Bld) 0 % Normal 0-2 [facility] Comment on above: Performed By: #### U HUMERAO, UA #### [facility] [address] [place], [place] [phone] Laboratory Aide: Ric Eldridge MD Eosinophils (Bld) [#/Vol] 0.33 10*3/uL Normal 0.00-0.40 [facility] Comment on above: Performed By: #### U HUMERAO, UA #### [facility] [address] [place], [place] [phone] Laboratory Aide: Ric Eldridge MD Eosinophils/100 WBC (Bld) 2 % Normal 0-5 [facility] Comment on above: Performed By: #### U HUMERAO, UA #### [facility] [address] [place], [place] [id number] Laboratory Aide: Ric Eldridge MD Erythrocyte distribution width (RBC) [Ratio] 13.5 % Normal 12.1-15.2 [facility] Comment on above: Performed By: #### U HUMERAO, UA #### [facility] [address] [place], [place] [phone] Laboratory Aide: Ric Eldridge MD Hematocrit (Bld) [Volume fraction] 34.2 % Low 36.0-46.0 [facility] Comment on above: Performed By: #### U MICAO, UA #### [facility] [address] [place], [place] [id number] Laboratory Aide: Ric Eldridge MD Hemoglobin (Bld) [Mass/Vol] 12.0 g/dL Normal 12.0-16.0 [facility] Comment on above: Performed By: #### U SYDNEY UA #### [facility] [address] [place], [place] [phone] Laboratory Aide: Ric Eldridge MD Immature granulocytes/100 WBC (Bld) 0 % Normal 0-5 [facility] Comment on above: Performed By: #### U SYDNEY UA #### [facility] [address] [place], [place] [phone] Laboratory Aide: Ric Eldridge MD Lymphocytes (Bld) [#/Vol] 4.04 10*3/uL Normal 1.00-4.80 [facility] Comment on above: Performed By: #### Arcenio GRIMES UA #### [facility] [address] [place], [place] [phone] Laboratory Aide: Ric Eldridge MD Lymphocytes/100 WBC (Bld) 28 % Normal 15-40 [facility] Comment on above: Performed By: #### U SYDNEY UA #### [facility] [address] [place], [place] [phone] Laboratory Aide: Ric Eldridge MD MCH (RBC) [Entitic mass] 31.1 pg Normal 26.0-34.0 [facility] Comment on above: Performed By: #### U SYDNEY UA #### [facility] [address] [place], [place] [phone] Laboratory Aide: Ric Eldridge MD MCHC (RBC) [Mass/Vol] 35.1 g/dL Normal 31.0-37.0 [facility] Comment on above: Performed By: #### U SYDNEY UA #### [facility] [address] [place], [place] [phone] Laboratory Aide: Ric Eldridge MD MCV (RBC) [Entitic vol] 88.6 fL Normal 80.0-100.0 [facility] Comment on above: Performed By: #### Arcenio GRIMES UA #### [facility] [address] [place] [address] Laboratory Aide: Ric Eldridge MD Monocytes (Bld) [#/Vol] 1.31 10*3/uL High 0.00-1.00 [facility] Comment on above: Performed By: #### Arcenio GRIMES UA #### [facility] [address] [place] [address] Laboratory Aide: Ric Eldridge MD Monocytes/100 WBC (Bld) 9 % High 4-8 [facility] Comment on above: Performed By: #### Arcenio GRIMES UA #### [facility] [address] [place] [address] Laboratory Aide: Ric Eldridge MD Neutrophil (Seg) 61 % Normal 47-75 [facility] Comment on above: Performed By: #### Arcenio GRIMES UA #### [facility] [address] [place], [place] [phone] Laboratory Aide: Ric Eldridge MD Platelet mean volume (Bld) [Entitic vol] 10.9 fL Normal 6.0-12.0 [facility] Comment on above: Performed By: #### Arcenio GRIMES UA #### [facility] [address] [place], [place] [phone] Laboratory Aide: Ric Eldridge MD Platelets (Bld) [#/Vol] 354 10*3/uL Normal 140-450 [facility] Comment on above: Performed By: #### U SYDNEY, UA #### [facility] [address] [place] [address] Laboratory Aide: Ric Eldridge MD RBC (Bld) [#/Vol] 3.86 10*6/uL Low 4.00-5.20 [facility] Comment on above: Performed By: #### U SYDNEY, UA #### [facility] [address] [place], [place] [phone] Laboratory Aide: Ric Eldridge MD WBC (Bld) [#/Vol] 14.4 10*3/uL High 3.5-11.0 [facility] Comment on above: Performed By: #### U SYDNEY, UA #### [facility] [address] [place] [address] Laboratory Aide: [facility] Albumin [Mass/Vol] 4.1 g/dL 3.5 - 5.2 g/dL [facility] Albumin/Globulin [Mass ratio] 1.3 {ratio} 1.0 - 2.5 [facility] ALP [Catalytic activity/Vol] 67 U/L 35 - 104 U/L [facility] ALT [Catalytic activity/Vol] 11 U/L 5 - 33 U/L [facility] Anion gap [Moles/Vol] 11 mmol/L 9 - 17 mmol/L [facility] AST [Catalytic activity/Vol] 19 U/L NINF - 32 U/L [facility] Bilirubin [Mass/Vol] mg/dL Low 0.3 - 1 .2 mg/dL [facility] Calcium [Mass/Vol] 9.8 mg/dL 8.6 - 10. 4 mg/dL [facility] Chloride [Moles/Vol] 104 mmol/L 98 - 10 7 mmol/L [facility] [facility] CO2 [Moles/Vol] 22 mmol/L 20 - 31 mmol/L [facility] Creatinine [Mass/Vol] 0.4 mg/dL Low 0.5 - 0.9 mg/dL [facility] Est, Glom Filt Rate - PINF [facility] Comment on above: These results are [...] 81 mg/dL 70 - 99 mg/dL [facility] Interpretation and review of laboratory results Abnormal [facility] Potassium [Moles/Vol] 3.9 mmol/L 3.7 - 5.3 mmol/L [facility] Protein [Mass/Vol] 7.2 g/dL 6.4 - 8.3 g/dL [facility] Sodium [Moles/Vol] 137 mmol/L 135 - 144 mmol/L [facility] Urea nitrogen [Mass/Vol] 11 mg/dL 6 - 20 mg/dL [facility] Comp Metabolic Profon 2024 Albumin [Mass/Vol] 4.1 g/dL Normal 3.5-5.2 [facility] Comment on above: Performed By: #### Arcenio GRIMES UA #### [facility] [address] [place], [place] [id number] Laboratory Aide: Ric Eldridge MD Albumin/Glob Ratio 1.3 Normal 1.0-2.5 [facility] Comment on above: Performed By: #### U SYDNEY UA #### [facility] [address] [place], [place] [id number] Laboratory Aide: Ric Eldridge MD Alkaline Phos 67 U/L Normal 35-104 [facility] Comment on above: Performed By: #### U SYDNEY UA #### [facility] [address] [place], [place] [id number] Laboratory Aide: Ric Eldridge MD ALT [Catalytic activity/Vol] 11 U/L Normal 5-33 [facility] Comment on above: Performed By: #### U SYDNEY UA #### [facility] [address] [place], [place] [id number] Laboratory Aide: Ric Eldridge MD Anion gap [Moles/Vol] 11 mmol/L Normal 9-17 [facility] Comment on above: Performed By: #### U MICAO, UA #### [facility] [address] [place], [place] [id number] Laboratory Aide: Ric Eldridge MD AST [Catalytic activity/Vol] 19 U/L Normal <32 [facility] Comment on above: Performed By: #### U MICAO, UA #### [facility] [address] [place] [address] Laboratory Aide: Ric Eldridge MD Bilirubin [Mass/Vol] mg/dL Low 0.3-1.2 [facility] Comment on above: Performed By: #### U MICAO, UA #### [facility] [address] [place] [address] Laboratory Aide: Ric Eldridge MD Calcium [Mass/Vol] 9.8 mg/dL Normal 8.6-10.4 [facility] Comment on above: Performed By: #### U MICAO, UA #### [facility] [address] [place], [place] [id number] Laboratory Aide: Ric Eldridge MD Chloride [Moles/Vol] 104 mmol/L Normal 98-107 [facility] Comment on above: Performed By: #### U MICAO, UA #### [facility] [address] [place], [place] [id number] Laboratory Aide: Ric Eldridge MD CO2 [Moles/Vol] 22 mmol/L Normal 20-31 [facility] Comment on above: Performed By: #### U MICAO, UA #### [facility] [address] [place], [place] [address] Laboratory Aide: Ric Eldridge MD Creatinine [Mass/Vol] 0.4 mg/dL Low 0.5-0.9 [facility] Comment on above: Performed By: #### U MICAO, UA #### [facility] [address] [place] [address] Laboratory Aide: Ric Eldridge MD GFR/1.73 sq M.predicted among non-blacks MDRD (S/P/Bld) [Vol rate/Area] mL/min/{1.73_m2} Normal >60 [facility] Comment on above: Result Comment: These results [...] #### U HUMERAO, UA #### [facility] [address] [place] [address] Laboratory Aide: Ric Eldridge MD Glucose [Mass/Vol] 81 mg/dL Normal 70-99 [facility] Comment on above: Performed By: #### U HUMERAO, UA #### [facility] [address] [place], [place] [id number] Laboratory Aide: Ric Eldridge MD Potassium [Moles/Vol] 3.9 mmol/L Normal 3.7-5.3 [facility] Comment on above: Performed By: #### U HUMERAO, UA #### [facility] [address] [place] [address] Laboratory Aide: Ric Eldridge MD Protein [Mass/Vol] 7.2 g/dL Normal 6.4-8.3 [facility] Comment on above: Performed By: #### U HUMERAO, UA #### [facility] [address] [place] [address] Laboratory Aide: Ric Eldridge MD Sodium [Moles/Vol] 137 mmol/L Normal 135-144 [facility] Comment on above: Performed By: #### U MICAO, UA #### [facility] [address] [place] [address] Laboratory Aide: Ric Eldridge MD Urea nitrogen [Mass/Vol] 11 mg/dL Normal 6-20 [facility] Comment on above: Performed By: #### U DERRICK GRIMES #### [facility] [address] [place] [address] Laboratory Aide: Ric Eldridge MD Lipaseon 08-08-2024 Lipase [Catalytic activity/Vol] 29 U/L 13 - 60 U/L [facility] Lipase [Catalytic activity/Vol] 29 U/L Normal 13-60 [facility] Comment on above: Performed By: #### U SYDNEY UA #### [facility] [address] [place] [address] Laboratory Aide: Ric Eldridge MD Microscopic Urinalysison - [facility] Epithelial cells LM.HPF (Urine sed) [#/Area] 2 TO 5 /HPF [facility] RBC LM.HPF (Urine sed) [#/Area] 0 TO 2 [facility] WBC LM.HPF (Urine sed) [#/Area] None Seen 0 /HPF [facility] No Panel Informationon 08-08 [facility] Urinalysison 08-08-2024 Bilirubin Ql (U) Negative NEGATIVE [facility] Clarity (U) Clear Clear [facility] Color (U) Yellow Yellow [facility] Comment [facility] Glucose Test strip (U) [Mass/Vol] 250 mg/dL Abnormal NEGATIVE mg/dL [facility] Hemoglobin Auto test strip Ql (U) TRACE Abnormal NEGATIVE [facility] Interpretation and review of laboratory results Abnormal [facility] Ketones (U) [Mass/Vol] Negative NEGATIVE mg/dL [facility] Leukocyte esterase Test strip Ql (U) Negative NEGATIVE [facility] Nitrite Ql (U) Negative NEGATIVE [facility] pH (U) 6.0 [pH] 5.0 - 8.0 [facility] Protein (U) [Mass/Vol] TRACE Abnormal NEGATIVE mg/dL [facility] Specific gravity (U) [Rel density] 1.025 1.005 - 1.030 [facility] Urobilinogen Qn (U) Normal 0.0 - 1. 0 EU/dL [facility] Urinalysis, Routineon 2024 Bilirubin, SemiQt,Ur Negative Normal NEG [facility] Comment on above: Performed By: #### U MICAO, UA #### [facility] [address] [place] [address] Laboratory Aide: Ric Eldridge MD Blood, Urine TRACE Abnormal NEG [facility] Comment on above: Performed By: #### U MICAO, UA #### [facility] [address] [place], [place] [id number] Laboratory Aide: Ric Eldridge MD Clarity (U) Clear Normal CLEAR [facility] Comment on above: Performed By: #### U MICAO, UA #### [facility] [address] [facility] [place] [id number] Laboratory Aide: Ric Eldridge MD Color (U) Yellow Normal L [facility] Comment on above: Performed By: #### U MICAO, UA #### [facility] [address] [facility] [place] [id number] Laboratory Aide: Ric Eldridge MD Comment Normal [facility] Comment on above: Performed By: #### U MICAO, UA #### [facility] [address] [facility] [place] [id number] Laboratory Aide: Ric Eldridge MD Glucose Ql (U) 250 mg/dL Abnormal NEG [facility] Comment on above: Performed By: #### U MICAO, UA #### [facility] [address] [facility] [place] [id number] Laboratory Aide: Ric Eldridge MD Ketones Ql (U) Negative Normal NEG [facility] Comment on above: Performed By: #### U MICAO, UA #### [facility] [address] [place] [address] Laboratory Aide: Ric Eldridge MD Leukocyte esterase Test strip Ql (U) Negative Normal NEG [facility] Comment on above: Performed By: #### U MICAO, UA #### [facility] [address] [place] [address] Laboratory Aide: Ric Eldridge MD Nitrite,Ur Negative Normal NEG [facility] Comment on above: Performed By: #### U MICAO, UA #### [facility] [address] [place] [address] Laboratory Aide: Ric Eldridge MD PH,Ur 6.0 Normal 5.0-8.0 [facility] Comment on above: Performed By: #### U MICAO, UA #### [facility] [address] [place] [address] Laboratory Aide: Ric Eldridge MD Protein Ql (U) TRACE Abnormal NEG [facility] Comment on above: Performed By: #### U MICAO, UA #### [facility] [address] [place] [address] Laboratory Aide: Ric Eldridge MD Spec. [place],Ur 1.025 Normal 1.005-1.030 [facility] Comment on above: Performed By: #### U MICAO, UA #### [facility] [address] [place] [address] Laboratory Aide: Ric Eldridge MD Urobilinogen,Ur Normal Normal 0.0-1.0 [facility] Comment on above: Performed By: #### U MICAO, UA #### [facility] [address] [place], [place] [address] Laboratory Aide: Ric Eldridge MD Urinalysis,Microon 5 ----- Normal [facility] Comment on above: Performed By: #### U SYDNEY UA #### [facility] [address] [place] [address] Laboratory Aide: Ric Eldridge MD Epithelial cells LM Ql (Urine sed) 2 TO 5 Normal [facility] Comment on above: Performed By: #### U SYDNEY, UA #### [facility] [address] [place] [address] Laboratory Aide: Ric Eldridge MD Urine RBC's 0 TO 2 Normal 0-2 [facility] Comment on above: Performed By: #### U SYDNEY UA #### [facility] [address] [place] [address] Laboratory Aide: Ric Eldridge MD Urine WBC's None Seen Normal 0 [facility] Comment on above: Performed By: #### U SYDNEY UA #### [facility] [address] [place] [address] Laboratory Aide: Ric Eldridge MD Laboratory - Chemistry and C hemistry - challengeOrdered By: Mimi Caldera on 07-28-2024 Glucose Ql (U) Negative [facility] - UrinalysisOrder ed By: Mimi Caldera on 07-28-2024 Protein Ql (U) Negative [facility] [employer] Office Visit Reporton 07-28-2024 Docking [employer] Office Visit Report [facility] [address], [address] [place] [address] OFFICE VISIT Date of Service: 07/28/24 MR#: [id number] Acct: [id number] Name: AIMEE REDDY Rep #: [id number] : 2000 Provider: Dr. 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 Normal [facility] - Chemistry and C hemistry - challengeon 07-01-2024 Glucose Ql (U) Negative [facility] - Urinalysison Protein Ql (U) Negative [facility] [employer] Office Visit Reporton 07-01-2024 Docking Pilot Office Visit Report [facility] [address], [address] [place] [address] OFFICE VISIT Date of Service: 07/01/24 MR#: [id number] Acct: [id number] Name: AIMEE REDDY Rep #: [id number] : 2000 Provider: ANDREW early Age/Sex: 24/F [place] [facility] [place]: Signed Intake Vital Signs 05/29/24 11:19 07/01/24 09:26 Height 5 ft 4 in 5 ft 4 in Weight: 124 lb 6 oz BMI 21.3 BP 107/61 Intake Visit Reasons: 14wk OB Chief Complaint: 14 Week 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 13/14 Carrier for Cystic Fibrosis;FOB Karen Merino to be tested (3) Cystic fibrosis carrier: Status: Acute Comment: FOB to be tested (more content not included)... Normal [facility] Absolute neutrophil countOrd ered By: Kassi Ontiveros on 06-19-2024 Neutrophils (Bld) [#/Vol] 12.1 10*3/uL High 2.0-7.7 [facility] Basophil percentageOrdered B y: Kassi Ontiveros on 06-19-2024 Basophils/100 WBC (Bld) 0.4 % 0-1 [facility] CBC W/Diff, Automatedon 05-25 Absolute Lymph 3.09 X10 3/uL Normal 0.83-4.51 [facility] Comment on above: Performed By: #### L 509.4005, L3890.6005, L900.0098, L3890.6100, L100.0100, BTS, L3890.6300, L509.8000 ####[facility] [address] [place], [address] Absolute Neut 12.1 X10 3/uL High 2.0-7.7 [facility] Comment on above: Performed By: #### L 509.4005, L3890.6005, L900.0098, L3890.6100, L100.0100, BTS, L3890.6300, L509.8000 ####[facility] [address] [place], [address] Basophils/100 WBC (Bld) 0.4 % Normal 0-1 [facility] Comment on above: Performed By: #### L 509.4005, L3890.6005, L900.0098, L3890.6100, L100.0100, BTS, L3890.6300, L509.8000 ####[facility] [address] [place], [address] Eosinophils/100 WBC (Bld) 1.4 % Normal 0-5 [facility] Comment on above: Performed By: #### L 509.4005, L3890.6005, L900.0098, L3890.6100, L100.0100, BTS, L3890.6300, L509.8000 ####[facility] [address] [place], [address] Erythrocyte distribution width (RBC) [Ratio] 13.5 % Normal 11.6-14.6 [facility] Comment on above: Performed By: #### L 509.4005, L3890.6005, L900.0098, L3890.6100, L100.0100, BTS, L3890.6300, L509.8000 ####[facility] [address] [place], [address] Hematocrit (Bld) [Volume fraction] 39.3 % Normal 37-47 [facility] Comment on above: Performed By: #### L 509.4005, L3890.6005, L900.0098, L3890.6100, L100.0100, BTS, L3890.6300, L509.8000 ####[facility] [address] [place], [address] Hemoglobin (Bld) [Mass/Vol] 12.9 g/dL Normal 12.0-15.0 [facility] Comment on above: Performed By: #### L 509.4005, L3890.6005, L900.0098, L3890.6100, L100.0100, BTS, L3890.6300, L509.8000 ####[facility] [address] [place], [address] IG% 0.500 Normal 0.0-0.9 [facility] Comment on above: Result Comment: IG% - Immature Granulocytes (promyelocytes, myelocytes and metamyelocytes) > 1% indicates that a LEFT SHIFT is Present. Performed By: #### L 509.4005, L3890.6005, L900.0098, L3890.6100, L100.0100, BTS, L3890.6300, L509.8000 ####[facility] [address] [place], [address] Lymphocytes/100 WBC (Bld) 18.1 % Low 19-41 [facility] Comment on above: Performed By: #### L 509.4005, L3890.6005, L900.0098, L3890.6100, L100.0100, BTS, L3890.6300, L509.8000 ####[facility] [address] [place], [address] MCH (RBC) [Entitic mass] 29.7 pg Normal 27.0-32.0 [facility] Comment on above: Performed By: #### L 509.4005, L3890.6005, L900.0098, L3890.6100, L100.0100, BTS, L3890.6300, L509.8000 ####[facility] [address] [place], [address] MCHC (RBC) [Mass/Vol] 32.8 g/dL Normal 32-36 [facility] Comment on above: Performed By: #### L 509.4005, L3890.6005, L900.0098, L3890.6100, L100.0100, BTS, L3890.6300, L509.8000 ####[facility] [address] [place], [address] MCV (RBC) [Entitic vol] 90.6 fL Normal 81-99 [facility] Comment on above: Performed By: #### L 509.4005, L3890.6005, L900.0098, L3890.6100, L100.0100, BTS, L3890.6300, L509.8000 ####[facility] [address] [place], [address] Monocytes/100 WBC (Bld) 8.6 % Normal 0-10 [facility] Comment on above: Performed By: #### L 509.4005, L3890.6005, L900.0098, L3890.6100, L100.0100, BTS, L3890.6300, L509.8000 ####[facility] [address] [place], [address] Neutrophils/100 WBC (Bld) 71.0 % High 47-70 [facility] Comment on above: Performed By: #### L 509.4005, L3890.6005, L900.0098, L3890.6100, L100.0100, BTS, L3890.6300, L509.8000 ####[facility] [address] [place], [address] Nucleated RBC (Bld) [#/Vol] 0 10*3/uL Normal 0-5 [facility] Comment on above: Performed By: #### L 509.4005, L3890.6005, L900.0098, L3890.6100, L100.0100, BTS, L3890.6300, L509.8000 ####[facility] [address] [place], [address] Platelet mean volume (Bld) [Entitic vol] 11.5 fL Normal 6.2-12.0 [facility] Comment on above: Performed By: #### L 509.4005, L3890.6005, L900.0098, L3890.6100, L100.0100, BTS, L3890.6300, L509.8000 ####[facility] [address] [place], [address] Platelets (Bld) [#/Vol] 424 10*3/uL Normal 150-450 [facility] Comment on above: Performed By: #### L 509.4005, L3890.6005, L900.0098, L3890.6100, L100.0100, BTS, L3890.6300, L509.8000 ####[facility] [address] [place], [address](833) RBC (Bld) [#/Vol] 4.34 10*6/uL Normal 4.2-5.4 [facility] Comment on above: Performed By: #### L 509.4005, L3890.6005, L900.0098, L3890.6100, L100.0100, BTS, L3890.6300, L509.8000 ####[facility] [address] [place], [place], [id number] RDW SD 45.9 fl High 35.1-43.9 [facility] Comment on above: Performed By: #### L 509.4005, L3890.6005, L900.0098, L3890.6100, L100.0100, BTS, L3890.6300, L509.8000 ####[facility] [address] [place], [place], [address](251) WBC (Bld) [#/Vol] 17.0 10*3/uL High 4.4-11.0 [facility] Comment on above: Performed By: #### L 509.4005, L3890.6005, L900.0098, L3890.6100, L100.0100, BTS, L3890.6300, L509.8000 ####[facility] [address] [place], [place], [id number] Eosinophil percentageOrdered By: Kassi Ontiveros on 06-19-2024 Eosinophils/100 WBC (Bld) 1.4 % 0-5 [facility] Erythrocyte distribution wid th (RBC) [Ratio]Ordered By: Kassi Ontiveros on 06-19-2024 Erythrocyte distribution width (RBC) [Entitic vol] 45.9 fL High 35.1-43.9 [facility] Erythrocyte distribution wid th ratioOrdered By: Kassi Ontiveros on 06-19-2024 Erythrocyte distribution width (RBC) [Ratio] 13.5 % 11.6-14.6 [facility] HIV - WCHon 06-19-2024 HIV Non-Reactive Normal Nonreactive [facility] Comment on above: Order Comment: Reaso n for Exam: Performed By: #### L 509.4005, L3890.6005, L900.0098, L3890.6100, L100.0100, BTS, L3890.6300, L509.8000 ####[facility] [address] [place], [address] HIV 1+2 Ab+HIV1 p24 Ag IA Ql Ordered By: Kassi Ontiveros on 06-19-2024 HIV (1&2) Antibody Non-Reactive Nonreactive [facility] Hematocrit Auto (Bld) [Volum e fraction]Ordered By: Kassi Ontiveros on 06-19-2024 Hematocrit (Bld) [Volume fraction] 39.3 % 37-47 [facility] Hemoglobin measurementOrdere d By: Kassi Ontiveros on 06-19-2024 Hemoglobin (Bld) [Mass/Vol] 12.9 g/dL 12.0-15.0 [facility] Hepatitis B Surface Antigeno n 06-19-2024 HEP B Surf Ag [facility] Comment on above: Order Comment: Reaso n for Exam: Performed By: #### L 509.4005, L3890.6005, L900.0098, L3890.6100, L100.0100, BTS, L3890.6300, L509.8000 ####[facility] [address] [place], [address] Hepatitis B surface antigen detectionOrdered By: Kassi Ontiveros on 06-19-2024 Hepatitis B Surface Antigen Non-Reactive Nonreactive [facility] Hepatitis C Antibodyon 06-19 Hepatitis C AB Non-Reactive [facility] Comment on above: Order Comment: Reaso n for Exam: Result Comment: Non Reactive: < 0.8 Equivocal: >/= 0.8 to < 1.0 Reactive: >/= 1.0 The CDC requires that a reactive/equivocal HCV antibody result be sent out for confirmation. HCV Quant by PCR testing. Performed By: #### L 509.4005, L3890.6005, L900.0098, L3890.6100, L100.0100, BTS, L3890.6300, L509.8000 ####[facility] [address] [place], [place], [id number] Hepatitis C virus antibody a ssayOrdered By: Kassi Ontiveros on 06-19-2024 Hepatitis C Antibody Non-Reactive Nonreactive [facility] Comment on above: Non Reactive: < 0.8 Equivocal: >/= 0.8 to < 1.0 Reactive: >/= 1.0The CDC requires that a reactive/equivocal HCV antibody result be sent out for confirmation. HCV Quant by PCR testing. Immature granulocytes/100 WB C Auto (Bld)Ordered By: Kassi Ontiveros on 06-19-2024 Immature granulocytes/100 WBC (Bld) 0.500 % 0.0-0.9 [facility] Comment on above: IG% - Immature Granu locytes (promyelocytes, myelocytes and metamyelocytes) > 1% indicates that a LEFT SHIFT is Present. L509.8000on 06-19-2024 Syphilis Abs Non-Reactive Normal [facility] Comment on above: Order Comment: Reaso n for Exam: Performed By: #### L 509.4005, L3890.6005, L900.0098, L3890.6100, L100.0100, BTS, L3890.6300, L509.8000 ####[facility] [address] [place], [place], [id number] Lymphocytes Auto (Unsp spec) [#/Vol]Ordered By: Kassi Ontiveros on 06-19-2024 Lymphocytes (Bld) [#/Vol] 3.09 10*3/uL 0.83-4.51 [facility] Lymphocytes/100 WBC Auto (Un sp spec)Ordered By: Kassi Ontiveros on 06-19-2024 Lymphocytes/100 WBC (Bld) 18.1 % Low 19-41 [facility] MCV (mean corpuscular volume ) determinationOrdered By: Kassi Ontiveros on 06-19-2024 MCV (RBC) [Entitic vol] 90.6 fL 81-99 [facility] Mean corpuscular hemoglobin (MCH) determinationOrdered By: Kassi Ontiveros on 06-19-2024 MCH (RBC) [Entitic mass] 29.7 pg 27.0-32.0 [facility] Mean corpuscular hemoglobin concentration (MCHC) determinationOrdered By: Kassi Ontiveros on 06-19-2024 MCHC (RBC) [Mass/Vol] 32.8 g/dL 32-36 [facility] Mean platelet volume determi nationOrdered By: Kassi Ontiveros on 06-19-2024 Platelet mean volume (Bld) [Entitic vol] 11.5 fL 6.2-12.0 [facility] Miscellaneous procedureOrder ed By: Kassi Ontiveros on 06-19-2024 Miscellaneous Test Comment SEE SCANNED REPORT [facility] Monocyte percentageOrdered B y: Kassi Ontiveros on 06-19-2024 Monocytes/100 WBC (Bld) 8.6 % 0-10 [facility] NATERAon 06-19-2024 NATURA SEE SCANNED REPORT Normal [facility] Comment on above: Order Comment: Comme nts: NIPT with gender carrier testing Performed By: #### L 509.4005, L3890.6005, L900.0098, L3890.6100, L100.0100, BTS, L3890.6300, L509.8000 ####[facility] [address] [place], [address] Neutrophil percentageOrdered By: Kassi Ontiveros on 06-19-2024 Neutrophils/100 WBC (Bld) 71.0 % High 47-70 [facility] Nucleated red blood cell per centageOrdered By: Kassi Ontiveros on 06-19-2024 Nucleated RBC/100 WBC (Bld) [Ratio] 0 % 0-5 [facility] Platelet countOrdered By: Evangelina Ontiveros on 06-19-2024 Platelets (Bld) [#/Vol] 424 10*3/uL 150-450 [facility] RBC Auto (Bld) [#/Vol]Ordere d By: Kassi Ontiveros on 06-19-2024 RBC (Bld) [#/Vol] 4.34 10*6/uL 4.2-5.4 [facility] Rubella IgGon 06-19-2024 Rubella IgG Non-Reactive Normal Nonreactive [facility] Comment on above: Order Comment: Reaso n for Exam: Result Comment: Anti body Results Interpretation of Immune Status Non Reactive Presumed Non-Immune Equivocal Equivocal Reactive Presumed Immune Performed By: #### L 509.4005, L3890.6005, L900.0098, L3890.6100, L100.0100, BTS, L3890.6300, L509.8000 ####[facility] [address] [place], [place], [id number] Rubella immune status IgGOrd ered By: Kassi Ontiveros on 06-19-2024 Rubella IgG Antibody Non-Reactive Nonreactive [facility] Comment on above: Antibody Results Int erpretation of Immune Status Non Reactive Presumed Non-Immune Equivocal Equivocal Reactive Presumed Immune Treponema sp Ab Ql (S)Ordere d By: Kassi Ontiveros on 06-19-2024 Syphilis Total Antibody Non-Reactive [facility] Type AND Screenon 06-19-2024 Ab SCREEN GEL Negative Normal [facility] Comment on above: Order Comment: PN Performed By: #### L 509.4005, L3890.6005, L900.0098, L3890.6100, L100.0100, BTS, L3890.6300, L509.8000 ####[facility] [address] [place], [place], [id number] ABO and Rh group Nom (Bld) Blood group O Rh(D) positive Normal [facility] Comment on above: Order Comment: PN Performed By: #### L 509.4005, L3890.6005, L900.0098, L3890.6100, L100.0100, BTS, L3890.6300, L509.8000 ####[facility] [address] [place], [place], [id number] White blood cell (WBC) count Ordered By: Kassi Ontiveros on 06-19-2024 WBC (Bld) [#/Vol] 17.0 10*3/uL High 4.4-11.0 [facility] Chlamydia/GC CONOR aptimaon CHLAMY,NUC ACID Negative Normal Negative [facility] Comment on above: Performed By: #### M 100.2200, L7000.1800 ####[facility] [address] [place], [place], [id number] GC BY NUC ACID Negative Normal Negative [facility] Comment on above: Result Comment: Perf ormed at: =G - [facility] [address] [id number] Laboratory Aide: Agueda Cuadra MD, Phone: [phone] Performed By: #### M 100.2200, L7000.1800 ####[facility] [address] [place], [place], [id number] Urine Cultureon 05-31-2024 [facility] Escherichia coli [place] Count 11,000-25,000 Escherichia coli: REACTION Ampicillin Islt [...] TMP SMX Islt HUMERA <=20 S Normal [facility] Comment on above: Performed By: #### M 100.2200, L7000.1800 ####[facility] [address] [place], [place], [id number] C. trachomatis rRNA CONOR+prob e Ql (Unsp spec)Ordered By: Kassi Ontiveros on 05-29-2024 Chlamydia DNA (CONOR) Negative Negative [facility] Neisseria gonorrhoeae nuclei c acid detection by amplified probe techniqueOrdered By: Kassi Ontiveros on 05-29-2024 N. gonorrhoeae DNA CONOR+probe Ql (Unsp spec) Negative Negative [facility] Comment on above: Performed at: =[facility] [place] [id number] Director: Agueda Cuadra MD, Phone: [phone] Docking [employer] Office Visit Reporton 05-29-2024 Docking Pilot Office Visit Report [facility] [address], [address] [place] [address] OFFICE VISIT Date of Service: 05/29/24 MR#: [id number] Acct: [id number] Name: AIMEE REDDY Rep #: [id number] : 2000 Provider: JOEL kenyon Age/Sex: 24/F [place] [facility] [place] Signed Intake Vital Signs 05/29/24 11:19 Height 5 ft 4 in Weight: 125 lb 4 oz BMI 21.4 BP 127/76 H Intake Visit Reasons: New OB, LMP 03/24/25, TERESITA 12/29/24 Braiding Machine Operator Required: No Is patient in pain?: No [...] 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 occupational status: 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 Normal [facility] Urine cultureOrdered By: [place] Ontiveros on 05-29-2024 Bacteria identified Cx Nom (U) Escherichia coli Abnormal [facility] US PELVIC TRANSVAGINAL WITH COLOR FLOWon [...] on SatMar 20, 2024 11:19:58 AM EDT [facility] Comment on above: Order Comment: Injur [...] measuring up to 20 mm. There is khdm-if-qwojndau free fluid in the pelvis. There is no suspicious adnexal mass. Lymph nodes: No retroperitoneal or abdominal lymphadenopathy. Vascular: The aorta demonstrates normal caliber without aneurysm or dissection.The branch vessels of the aorta are widely patent. Peritoneum: Mild to moderate ascites in the pelvis. Abdominal wall and Skeletal: Unremarkable without acute abnormality. _ IMPRESSION: 1. There is a eajd-zc-hiaslxwi amount of free fluid in the pelvis [...] AM EDT Finalized by: VARGHESE ALCANTAR on [place] Mar 15, 2024 9:07:50 AM EDT [facility] Comment on above: Order Comment: Injur y/Trauma or Illness?:Illness/Other How long have you had these symptoms (acute/chronic)?:Acute Reason for exam?:lower abd pain Type of Exam?:Initial Additional signs and symptoms?:pain x hours ED Prov Noteon 03-15-2024 ED Prov Note ED PROVIDER NOTE [facility] NAME: Aimee Reddy AGE: 24 y.o. : 2000 VISIT DATE: 03/15/2024 CSN: [id number] PCP: No, Physician Chief Complaint Patient presents [...] with biopsy; Surgeon: Sergio Gray MD; [place] [facility] [place] Service: General Surgery EGD N/A 02/24/2019 Procedure: ESOPHAGOGASTRODUODENOSCO PY with biopsy; Surgeon: Sergio Gray MD; [place] [facility]; Service: General Surgery SPLENECTOMY, TOTAL 2011 [...] Financial Resource Strain: Unknown (11/16/2021) Received from [facility] Overall Financial Resource Strain (CARDIA) Difficulty of Paying Living Expenses: Patient declined Food Insecurity: Unknown (11/16/2021) Received from [facility] Hunger Vital Sign Worried About Running Out of Food in the Last Year: Patient declined Ran Out of Food in the Last Year: Patient declined Transportation Needs: Unknown (11/16/2021) Received from [facility] PRAPARE - Transportation Lack of Transportation (Medical): Patient declined Lack of Transportation (Non-Medical): Patient declined Physical Activity: Unknown (11/16/2021) Received from [facility] Exercise Vital Sign Days of Exercise per Week: Patient declined Minutes of Exercise per Session: Patient declined Stress: Unknown (11/16/2021) Received from [facility] [email or web address] [facility] [place] [employer] of Occupational Health - Occupational Stress Questionnaire Feeling of Stress : Patient declined Social Connections: Unknown (11/16/2021) [facility] Social Connection and Isolation Panel [NHANES] Frequency of Communication with Friends and Family: Patient declined Frequency of Social Gatherings with Friends and Family: Patient declined Attends Confucianism Services: Patient declined Active Member of Clubs or Organizations: Patient declined Attends Club or Organization Meetings: Patient declined Marital Status: Patient declined Housing Stability: Unknown (11/16/2021) [facility] Housing Stability Vital Sign Unable to [...] Normocephalic. Eyes: (more content not included)... Normal [facility] POC BASIC METABOLIC PANEL - [facility] 03-15-2024 Chloride [Moles/Vol] 111 mmol/L High 98-108 [facility] Comment on above: Order Comment: [facility] has implemented the eGFR calculation approach that does not have a coefficient for race that conforms to the NKF-ASN Task Force Recommendations. CO2 [Moles/Vol] 25 mmol/L Normal 21-32 [facility] Comment on above: Order Comment: [facility] has implemented the eGFR calculation approach that does not have a coefficient for race that conforms to the NKF-ASN Task Force Recommendations. Creatinine [Mass/Vol] 0.45 mg/dL Normal 0.40-1.10 [facility] Comment on above: Order Comment: [facility] has implemented the eGFR calculation approach that does not have a coefficient for race that conforms to the NKF-ASN Task Force Recommendations. Glucose [Mass/Vol] 108 mg/dL High 65-99 [facility] Comment on above: Order Comment: [facility] has implemented the eGFR calculation approach that does not have a coefficient for race that conforms to the NKF-ASN Task Force Recommendations. POC GFR 138 mL/min/1.73 m2 Normal >=60 [facility] Comment on above: Order Comment: [facility] has implemented the eGFR calculation approach that does not have a coefficient for race that conforms to the NKF-ASN Task Force Recommendations. Result Comment: Yoly mated GFR was calculated using the 2020 CKD-EPI creatinine equation. POC IONIZED CALCIUM 4.5 mg/dL Normal 4.5-5.3 [facility] Comment on above: Order Comment: [facility] has implemented the eGFR calculation approach that does not have a coefficient for race that conforms to the NKF-ASN Task Force Recommendations. Potassium [Moles/Vol] 4.5 mmol/L Normal 3.5-5.1 [facility] Comment on above: Order Comment: [facility] has implemented the eGFR calculation approach that does not have a coefficient for race that conforms to the NKF-ASN Task Force Recommendations. Sodium [Moles/Vol] 145 mmol/L Normal 135-145 [facility] Comment on above: Order Comment: [facility] has implemented the eGFR calculation approach that does not have a coefficient for race that conforms to the NKF-ASN Task Force Recommendations. Urea nitrogen [Mass/Vol] 6 mg/dL Low 8-25 [facility] Comment on above: Order Comment: [facility] has implemented the eGFR calculation approach that does not have a coefficient for race that conforms to the NKF-ASN Task Force Recommendations. Chloride [Moles/Vol] 112 mmol/L High 98-108 [facility] Comment on above: Order Comment: Criti courtney result acted upon time of test. Test performed at bedside. [facility] has implemented the eGFR calculation approach that does not have a coefficient for race that conforms to the NKF-ASN Task Force Recommendations. CO2 [Moles/Vol] 26 mmol/L Normal 21-32 [facility] Comment on above: Order Comment: Criti courtney result acted upon time of test. Test performed at bedside. [facility] has implemented the eGFR calculation approach that does not have a coefficient for race that conforms to the NKF-ASN Task Force Recommendations. Creatinine [Mass/Vol] 0.53 mg/dL Normal 0.40-1.10 [facility] Comment on above: Order Comment: Criti courtney result acted upon time of test. Test performed at bedside. [facility] has implemented the eGFR calculation approach that does not have a coefficient for race that conforms to the NKF-ASN Task Force Recommendations. Glucose [Mass/Vol] 101 mg/dL High 65-99 [facility] Comment on above: Order Comment: Criti courtney result acted upon time of test. Test performed at bedside. [facility] has implemented the eGFR calculation approach that does not have a coefficient for race that conforms to the NKF-ASN Task Force Recommendations. POC GFR 133 mL/min/1.73 m2 Normal >=60 [facility] Comment on above: Order Comment: Criti courtney result acted upon time of test. Test performed at bedside. [facility] has implemented the eGFR calculation approach that does not have a coefficient for race that conforms to the NKF-ASN Task Force Recommendations. Result Comment: Yoly mated GFR was calculated using the 2020 CKD-EPI creatinine equation. POC IONIZED CALCIUM 4.2 mg/dL Low 4.5-5.3 [facility] Comment on above: Order Comment: Criti courtney result acted upon time of test. Test performed at bedside. [facility] has implemented the eGFR calculation approach that does not have a coefficient for race that conforms to the NKF-ASN Task Force Recommendations. Potassium [Moles/Vol] 8.2 mmol/L Off scale high 3.5-5.1 [facility] Comment on above: Order Comment: Criti courtney result acted upon time of test. Test performed at bedside. [facility] has implemented the eGFR calculation approach that does not have a coefficient for race that conforms to the NKF-ASN Task Force Recommendations. Sodium [Moles/Vol] 142 mmol/L Normal 135-145 [facility] Comment on above: Order Comment: Criti courtney result acted upon time of test. Test performed at bedside. [facility] has implemented the eGFR calculation approach that does not have a coefficient for race that conforms to the NKF-ASN Task Force Recommendations. Urea nitrogen [Mass/Vol] 6 mg/dL Low 8-25 [facility] Comment on above: Order Comment: Criti courtney result acted upon time of test. Test performed at bedside. [facility] has implemented the eGFR calculation approach that does not have a coefficient for race that conforms to the NKF-ASN Task Force Recommendations. POC CBC AND DIFFERENTIALon 0 03-15-2024 BASOPHILS ABSOLUTE COUNT 0.02 K/mcL Normal 0.00-0.30 [facility] Basophils/100 WBC (Bld) 0.2 % Normal [facility] Eosinophils (Bld) [#/Vol] 0.21 10*3/uL Normal 0.00-0.50 [facility] Eosinophils/100 WBC (Bld) 1.6 % Normal [facility] Erythrocyte distribution width (RBC) [Ratio] 13.8 % Normal 11.6-14.8 [facility] Hematocrit (Bld) [Volume fraction] 46.2 % High 36.0-46.0 [facility] Hemoglobin (Bld) [Mass/Vol] 15.5 g/dL Normal 12.0-16.0 [facility] IG ABSOLUTE 0.05 K/mcL Normal 0.00-0.30 [facility] IG PERCENT 0.40 % Normal [facility] Comment on above: Result Comment: The IG parameter is the percentage of metamyelocytes, myelocytes and promyelocytes. An immature granulocyte count (IG) of 1% or more suggests the possibility of infection, an IG count of 3% is very likely related to an infection. Lymphocytes (Bld) [#/Vol] 5.09 10*3/uL High 0.90-4.00 [facility] Lymphocytes/100 WBC (Bld) 39.5 % Normal [facility] MCH (RBC) [Entitic mass] 29.8 pg Normal 26.0-34.0 [facility] MCV (RBC) [Entitic vol] 88.8 fL Normal 80.0-100.0 [facility] MEAN CORPUSCULAR HEMOGLOBIN CONC 33.5 g/dL Normal 31.0-37.0 [facility] Monocytes (Bld) [#/Vol] 1.15 10*3/uL High 0.30-0.90 [facility] Monocytes/100 WBC (Bld) 8.9 % Normal [facility] NEUTROPHILS ABSOLUTE COUNT 6.35 K/mcL Normal 1.70-7.00 [facility] Neutrophils/100 WBC (Bld) 49.4 % Normal [facility] Platelet mean volume (Bld) [Entitic vol] 12.2 fL Normal 9.4-12.4 [facility] Platelets (Bld) [#/Vol] 121 10*3/uL Low 150-400 [facility] RBC (Bld) [#/Vol] 5.20 10*6/uL Normal 4.00-5.20 [facility] WBC (Bld) [#/Vol] 12.87 10*3/uL High 4.50-11.00 [facility] POC LIVER PANEL PLUS [facility] 03-15-2024 Albumin [Mass/Vol] 4.2 g/dL Normal 3.2-5.2 [facility] ALP [Catalytic activity/Vol] 64 U/L Normal 40-140 [facility] ALT [Catalytic activity/Vol] 18 U/L Normal 0-40 [facility] Amylase [Catalytic activity/Vol] 22 U/L Low 25-115 [facility] Amylase [Catalytic activity/Vol] 17 U/L Normal 7-33 [facility] POC AST (SGOT) Normal [facility] Comment on above: Result Comment: Resu lt unable to be determined. POC BILIRUBIN, TOTAL Normal [facility] Comment on above: Result Comment: Resu lt unable to be determined. Protein [Mass/Vol] 8.9 g/dL High 6.0-8.0 [facility] POC , URINE - [facility] 03-15-2024 Beta HCG ( test) Ql (U) Negative Normal Negative [facility] Comment on above: Order Comment: Negat luis alberto: Dilute urine specimens, as indicated by a low specific gravity (<1.010) may not contain representitive levels of hCG. If is still suspected, a serum test or repeat urine test using a first morning urine specimen should be considered. POC URINALYSIS DIPSTICK,AUTO - [facility] 03-15-2024 POC BILIRUBIN, URINE Negative Normal Negative [facility] POC BLOOD, URINE Negative Normal Negative [facility] POC GLUCOSE, URINE Negative Normal Negative [facility] POC KETONES, URINE Negative Normal Negative [facility] POC LEUKOCYTE ESTERASE, URINE Negative Normal Negative [facility] POC NITRITE, URINE Negative Normal Negative [facility] POC PH, URINE 7.0 Normal 5.0-7.0 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 Is : no [...] SIGNS: T PRBP SpO2O2(LPM) %FiO2 Method 20-Nov-2022 11:19:[id number] 97 MDM MDM/ED COURSE: Discussed Findings with: [...] ill patient: no Electronic Signatures: Kevin Almeida (CHIEF HOSPITAL ADMINISTRATOR-VP DIGITAL MARKETING SOCIAL MEDIA AND CRM) (Signed 20-Nov-2022 11:40) Authored: ED Notes, HPI, PMH, ROS, PE, Results/Vital Signs, MDM/ED Course, Clinical Impression, Attestation, Chart Review, Scores Last Updated: 20-Nov-2022 11:40 by Kevin Almeida (CHIEF HOSPITAL ADMINISTRATOR-VP DIGITAL MARKETING SOCIAL MEDIA AND CRM) [facility] A STREP,PCRon 11-03-19 23 GROUP A STREP,PCR Not detected Normal Not Detected [facility] Comment on above: Result Comment: This test and its performance have been Validated by [facility] Laboratory using analyte specific reagents (ASR). It has not been cleared or approved by the U.S. Food and Drug Administration. The FDA has determined that such clearance or approval is not necessary. Performed By: #### G APC1 #### [facility] [id number] [place] [address] CORONAVIRUS 2019 BY PCRon SARS-CoV-2 (COVID-19) RNA CONOR+probe Ql (Unsp spec) Not detected Normal Not Detected [facility] Comment on above: Result Comment: . This test has received FDA Emergency Use Authorization (EUA) and has been verified by [facility]. This test is only authorized for the duration of time that circumstances exist to justify the authorization of the emergency use of in vitro diagnostic tests for the detection of SARS-CoV-2 virus and/or diagnosis of COVID-19 infection under section 564(b)(1) of the Act, 21 U.S.C. 360bbb-3(b)(1), unless the authorization is terminated or revoked sooner. [facility] is certified under CLIA-88 as qualified to perform high complexity testing. Testing is performed in the [facility] laboratory located at [address] [place] [address]. SARS-CoV-2/Flu/RSV Multiplex Test: Fact sheet for providers: https://www.fda.gov/media/602366/download Fact sheet for patients: https://www.fda.gov/media/484063/download Performed By: #### C OV19 #### [place] [address] Lab Specimen Source Nasal, Nasopharyngeal Normal [facility] Comment on above: Performed By: #### C OV19 #### [place] [address] Covid 19 Resultson 3 SARS-CoV-2 (COVID-19) RNA [...] You may also be contacted by the [place] [facility] to see if any [...] or Naproxen (Aleve) can also be used. Zgin-erf-bvrrxeb cough and cold medicines can be used according to the instructions on the package. Some tpob-rcx-ickmbfh medicines also contain acetaminophen. Make sure you [...] water are not available, use alcohol-based hand food inspector. Avoid touching your eyes, nose, and mouth [...] 24 carson (more content not included)... Normal [facility] GROUP A STREP,PCRon 11-02-19 23 Lab Specimen Source Throat Normal [facility] Comment on above: Performed By: #### G APC1 #### [facility] [id number] [place] [address] Provider Note - ED v3on 10-22 Provider [...] SIGNS: T PRBP SpO2O2(LPM) %FiO2 Method 01-Nov-2022 09:09:00-36.635377/75 97 MDM MDM/ED COURSE: Limitations to History: n/a HPI: Patient presents with several days of upper respiratory symptoms, cough congestion runny nose, and sore throat, symptoms seem to be getting worse, has tried onto-ett-xfvztye medications, here for further evaluation + fever. [...] media, conjunctivitis, strep, sinusitis, foreign body, mono, dkkf-hiba-zjf-mouth/coxs ackie herpangina, bronchitis/bronchiolitis , croup, allergic rhinitis, [...] educated that are also helpful and available syds-nch-geyrbve. I discussed the results and discharge plan [...] message on machine Electronic Signatures: Jia Lindsay (CHIEF HOSPITAL ADMINISTRATOR-VP DIGITAL MARKETING SOCIAL MEDIA AND CRM) (Signed 01-Nov-2022 09:39) Authored: HPI, PMH, Results/Vital Signs, MDM/ED Course, Clinical Impression, Attestation, Chart Review, Scores Aelthea Najera (MA II) (Signature Pending) Authored: Attestation Last Updated: 01-Nov-2022 14:01 (more content not included)... Normal [facility] GC + CHLAMYDIA BY AMPLIFIED DETECTIONon 09-26-2022 CHLAMYDIA TRACH.,AMPLIFIED Negative Normal Negative [facility] Comment on above: Result Comment: The APTIMA Combo 2 assay is FDA-approved for Chlamydia trachomatis and Neisseria gonorrhoeae testing on female endocervical and vaginal swabs, ThinPrep liquid pap samples, male urine samples and urethral swabs. Performance characteristics for Chlamydia trachomatis and Neisseria gonorrhoeae testing on specific zgr-PHL-jilgvxpd sample types (female urine samples) have been validated by [facility]. This laboratory is certified by CLIA to perform high complexity testing. Samples from all other sites are not validated for this method. Performed By: #### G [facility] #### [facility] [address] [place] [address] N.GONORRHEA,AMPLIFIED Negative Normal Negative [facility] Comment on above: Result Comment: The APTIMA Combo 2 assay is FDA-approved for Chlamydia trachomatis and Neisseria gonorrhoeae testing on female endocervical and vaginal swabs, ThinPrep liquid pap samples, male urine samples and urethral swabs. Performance characteristics for Chlamydia trachomatis and Neisseria gonorrhoeae testing on specific usj-RQF-yeqmftlw sample types (female urine samples) have been validated by [facility]. This laboratory is certified by CLIA to perform high complexity testing. Samples from all other sites are not validated for this method. Performed By: #### G [facility] #### [facility] [address] [place] [id number] GC + CHLAMYDIA BY AMPLIFIED DETECTIONon 09-25-2022 Lab Specimen Source Urine Normal [facility] Comment on above: Performed By: #### G [facility] #### [facility] [id number] [place] [address] GROUP A STREP,PCRon 09-26-19 23 GROUP A STREP,PCR Not detected Normal Not Detected [facility] Comment on above: Result Comment: This test was performed utilizing an FDA- cleared rapid nucleic acid amplification by PCR to qualitatively detect Group A Streptococci from throat swab specimens without the need for culture confirmation of negative results. 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 Prefers not to repeat oral swab as testing was not completed per lab. Rx Zpak and prednisone. Electronic Signatures: Kevin Almeida (CHIEF HOSPITAL ADMINISTRATOR-[facility]) (Signed 26-Sep-2022 15:15) Authored: ED Notes, HPI, PMH, ROS, PE, Results/Vital Signs, MDM/ED Course, Clinical Impression, Attestation, Chart Review, Scores Last Updated: 26-Sep-2022 15:16 by Kevin Almeida (CHIEF HOSPITAL ADMINISTRATOR-VP [employer]) [facility] Culture, Throaton 07-23-2022 Culture, Throat ORDER#: [id number] ORDERED BY: JAG GARCIA SOURCE: Throat Throat COLLECTED: 07/23/22 18:57 ANTIBIOTICS AT [facility].: RECEIVED : 07/23/22 19:12 Culture, Throat FINAL 07/26/22 10:34 Cult,Throat: Oral thuy, negative for Group A Strep and other beta Cult,Throat: hemolytic streptococci Performed at [address] [address] ([phone] [facility] Comment on above: Performed By: #### C XTHR #### [facility] [address] [place] [id number] Culture, Throaton 04-11-2022 Culture, Throat ORDER#: [id number] ORDERED BY: JAG GARCIA SOURCE: Throat Throat COLLECTED: 04/11/22 19:02 ANTIBIOTICS AT [facility].: RECEIVED : 04/11/22 19:26 Culture, Throat FINAL 04/14/22 08:32 Cult,Throat: Oral thuy, negative for Group A Strep and other beta Cult,Throat: hemolytic streptococci Performed at [address] [address] ([phone] [facility] Comment on above: Performed By: #### C XTHR #### [facility] [address] [place] [id number] Coding Summary.on 01-30-2022 Coding Summary. CD:[id number] Gh0b Ww+PGhlYWQ+LW6JRAYsC35gf SKauB3PN2lJLR7FEERIIQJCX E7ICU8utKW4HEstL2RpprRe LfkfcQSfTX99BCn6DXB9vMno ASmmaS1ugIAcP1e2TwRtXP22 nR03EOktJRHrPvP4FsTvmohc bWFy T0bwEdLneONoTql+PHRhYmxl IHdpZHRoPScxMDAlJyBzdHls LE6bKp5oIIFuULDkuZvhcREb OiBj r8rzNCZxDZblKW1ljDnrZ9Vn iJI0NSNrv1g1Kp46mZC+PHRk GWV5xQvyJAzjo344AzPoi1lr IDM3 xLMsYFukSLU4N21ef3T1YPEv KYRzHNI7aOC3iF2cgFlratbp S1TkbYAcKsL8TLT5fRSxlX7p bGln mwchkH5iSgk+V98ESH0OOIVM BL5MNbf0S1InEtyolQM+PC90 IUIpHU26kDRjfWQhc0ebyDx8 JzEw MNYlZUA1nHgmGUfno5IdTRAr B10kcRCbi6T3SZAodTskgNEe CqCqoZI4zG3sPGrerlpyz9hn dzsn Rduyp6sezg72kJ81A34pOPky LXQiSAG6WYJbFBMgsYqilv7r iP7sDr7+WPpgj8ggp0aonMl9 IjIw TXEvmtNmzDvxMNT3o1LuDc39 M1OqtYaga5NjWkj1iz45sUMg h9L5cBZ8NPwsKZDcqU7qNCvi ZnQ6 QLRtArAsvI43dDOnOUfuHv9f uDmouJxvNP2tCXUkyusqKTJx hY6qIRZxhCXuhLqnFT0rRFRx bjtm g230PcXdABX1TCLpkIIgG1Si cI5jXlLnUJHaNOWnC4OkzIRb BGtsC724GNyoNbX9ZXPapiWl Y2Fs RVNswYhkRbZ1v1N1Bc7Xo3Vh ezarPNN8DBfjLUN0AbK3IbBz UaD1W6TdJau8BFLclRdgNS7i J3Bh KWKvnigbiqjhxUE6PVCnIWQk eD60lUDzRSkjHv7yj7W5k761 IJGoEIDmjF49Dx2rfRvqQBTq dCBU jZ1becems0gskqvjIjRyBKKi SEq7MNr7GLChePtjEsViGCA0 UaZ5ZAP4rPDsiM6xfBpjwdtq dG9w Oyc+Q02swJ6vKWY1XGT8wgwo EWXxzhQoUL21JT33S3LaVewr dGFibGU+JPGyivNggQevAE2m YmFj c1swl2IsWVtxA8MjXIPvGJba Zzu2IXLsQEN8eKC0kT0uFUSb MXlls2B1gAB5W3BagkVgsf8f b2xs FQSnSAphZ60foXHra6C0TISx wZV9AMHubYfnTfYqdK05Aoh+ VEYscYnyr6HmOvcqb1fep0ks dGg9 JvFdJZQopzXyqPtxPZG3i3Iv Fp52D77qCVhnHRRhDTPhHWJx ENMdoNumgi8wgP4mOe0+PGNv bCB3 oEB0xJ3zXHTzGhN0ZUyqY912 RxVenPOpOifsh7ejc3cniEr2 OgQtGCJcxyEcbHoxSUN9k0Yg Lz48 R78wALcqDIAxSUZdYLHkUOCc tJlfer1bsF4kId7+WF4gx0lo xq68mI36pPR+CZMqTYA1qDyt PSdw LSGtfX2kDSskUlR4CITdOkAe hL01xJAvCVodWa9bfTjhmKtp PH5eZDWrtecwo912FhNqq5ln IDEw zTGpMWjjNOI1J28vb0Z6HAPb OBZwIFD1lKS0fV5yoLjmadsy bGVmdDsgdmVydGljYWwtYWxp Z246 IHRvcDsnPlBhdGllbnQgTmFt PHy5O0MpIje7TQNnqBobIN4j yZFpQHpmOa5slVnfzYdkMM3q NTBp rbgtk981VfKbg5zyQEZlwLUk TRszBTJ5P65uj5A8PSJqXRDs KFW5sXT7aZ6kkPfctxhyaPPv dDsg acGxqImaQMetNDddP071QOYd eWvqNxUoneZjHKGdyVP0XX28 LE33fKHvp3W7wMJ9D8MxBEHp bmct jwuldVA6ZJXbCPLtlT31Em7g nAnmFd8lWEWhPVB2FLClgFMm I1TnjM3lZkDzVMIqBHNwG2Uj eHQt JBxsL437PDloNlF9UKXacvKz Z2GhAUYfgEjiOaU6h1N5Xe9F E4R8BH95FF45jLEwp0V0wFB8 J3Bh BVSlnxbylelceAA4CVGgQFEe tL22Gw4hgTtiPu1qJZPkJOC0 LJAshFJwF9PodF7zCdUjLSLt MDAw Z5HgsAJeHGmuX751GQldXtW6 SOUuumFbB1KnUNHstUerOdT0 s4C2Dm7HGWn3ZH93QS47eZCy c3R5 mIL1B3RvINCdamjyyhiksIJ8 VBDzNPDhqE15Em0fxOziJg1z YBJxAPF1NXNtpVOiP2XhuV5m OiAj GHFrYFCdR3ScvMIjNBczZ585 RQktSuX4XKTuygZxM8AgDGAc mFlpDuU8g8U8Su8QTDTmNS21 IFR5 rMM3LC71CA46Z9FxApoyvMHw bGU+PHRhYmxlIHdpZHRoPScx SVNtYeRrrCdpWF2nXa9jDFKg LWNv rHhulUNnUuQro8qaYSPxLBgw KB2oyCkjS9YosHI7QPPsy1a0 Kh22A32xE5JouOP+PGNvbCB3 aWR0 hA4zNiCxTkV6AVcbX419IeMc cAUhZfjpp2lfq5tzxIq4VeN7 ACXzsfWjvDhbPOH5l6DsHg49 Y29s IHdpZHRoPSIxNSUiIHZhbGln os8skT0pRn7+WWWjpIU9yHV7 yY6aZmLiEvV6TJcfN279MmRt cCIv Hpzsv5xqq5sbmRl0FnBiODXv qlZrpDzpFLH6y5RdWr34R3Qz eIpci1PeIlr0eg53tIEkj7G1 bGU9 F6UpPIHcwxtylGEquNumER9x OMIhoiixVMEieN1sIMRcC5n8 PqKjRwI2HHxrP8SmunV7DKXo cHQg MXuwKSJ2S06ep2G6GRCmJWOi KEW3iCO9zY9ahUddkadvrERq oMtdicSdzPuiRPxwPArvC709 IHRv aRiySLSndB2aILIhtYTxiHcq HE3wYHOmwjviGflRP15MDGPh UZYVYERCHB35WO83oLNfa4S1 bGU9 K2GfJVGwpedmbjgdkOO0ESNi TYNflB67tZImQDrtJb5ng9P3 d702QBJtRWXisE86Ub9ofPcu MTBw eIUAiS3cffpqz2mmyplgGjUq WRCdPDu1WXh3MHBbqScuOgOj HQM6GdQ5IUR1jFIkiH0nmOir bjog kD7hAtu+MDgvMjkvMjAwMDwv dGQ+SHQuSDQ0gIjqTKysQMOw uQ4jCOXeP1k9ZbGgYyE4YMtd O3Bh WYHoovzmEy24jA0dEaHwUmQ9 HJxaX7ObxmW9OBLzxRVjXOms MCK7D39uf8U3WMQtBQChHAW5 dGV4 aN8duLekprvjtSWabTrjzmSc qAjeVQlgKOmgV972KNKxsUmh ExYnZBxpMXIkIL71PM43pIBn c3R5 tMC9D4CyMILebkwmsrvxaBA4 VKRwOJPpqD13kCEkYTuwPl5b y6Z9r865HBVlIEIrxD51Xl9m dDog PIUegKFYjQ2mwcaef3vkyozm JeSwATExZTm6DLq8CBKbkHhs KoYvMQU5IyN3ENW9oLAwqW8q bGln abrsiR8lZxn+VjYzIXeuRJ44 OX44mGYly1F1yRH1O6MoGPTo rrgcvzugcTH2UIFmDWYwtP65 cGFk XLdaCv5wi0L1i363NNDtZHBc gB48Xg5teUwcOTYigHVKkM6e dcepk1hpcplvQqDcIYBiKDk3 ZXh0 UDRinZxdGvZsCQB9TaR6OOW8 rNGziG3axGvxbtwvcD3hRju+ CU3mjqxafoC4SK65UA79J0Au Pjwv dGFibGU+PHRhYmxlIHdpZHRo PBdvMTKoMsZpoIsqDM1uPj5o EPPkEPJdtMnqnRVoPyAaq2gn YXBz YNxbUO0igQdgZ5CvaBN1FXPo q3r6Nk33M37dT9VnnKY+PGNv pUN4jDO1iT4rKgVyJqO5CZix Z249 NkSedQKlBtqhw0evh3aqbEj4 YjMuRBQyfyUkhJljRWH1o6Je Xl22N23mDNqfKXDrDCRpFQNz IHZh aLhunj3fdJ1yCl7+PGNvbCB3 hRE4wJ0iQvTbGyK9QJvrI664 SxJypEMyTqedL38kF7WoyGQ+ PHRy Czy9AHJxmFdbBM2nnQDtREnd Fk8hLLI8NxCpTnPfQUmbT1Cn BICahnomqmaljCL8GTXcBWPb aW47 Hy3pvNyzBo1aLCRmEZC6LQWi pWWxM5PnuD7xKuYsASCoXMHp D2VbtEUyRGwxH017XXdoXmQ8 IHZl riMuK4BqKUEzaZwnCcI0l3Y3 Hn1UjXjtoIHjYO9vPoSvAFz1 K7TxVft8BKVcdHueQK9wqWRm ZGlu Qd6jcVsxqImfNE7iMYJpjkjr z047VySax2ulMPNgjOGjMRth NGZ0M75gz3V4DLVuNQHlCAK6 dGV4 fI9lyVgtuecrhRUhdXccscUj cSgpHPhmEYlaW975QZUknKiu TnYNDwb7O5TwHcn8CHTpuKbp ZT0n jFWlRJioPv6wrGucxTgiNK9o GHFmanpav499JbHmh8wwMSHi jTHmLStqMXH4K96ys1C5ORBl MDAw SOH8cCR3tY3bcGcbiyevuDBb jZnohaFqlChqGPapVKyvO626 DRIhmBkrRp1LDcc1Q0NoEme9 ZCBz zKmmQA3rtVAiTTdmOt7abTke uLisCA6mGHXyoxwql735PsMr l9axYIWjdWZsYOdoUNT2N10y b3I6 PLDzBCDkNQN3xCR5cL0kaHkw bjogbGVmdDsgdmVydGljYWwt LGjeL875CPYoeCzuQkCjxKBb Ojwv dGQ+VU77bz07F4LwOtyeSbx8 FQLaCGU2jOP1hQ0cTTVjNCpy c7R5zKO2E7ZacmLnjc7qk6ad YXBz ZTog (more content not included)... Normal [facility] C Urineon 01-29-2022 Bacteria identified Cx Nom [...] Locations R1: This test was performed at: [facility], [address] [place] [address], [phone] , , [facility] Comment on above: Performed By: #### 2 [id number], [id number], [id number] ####[address] [place] [address] ED Note-Physicianon 01-29-20 ED Note-Physician Basic Information [...] (mL): 1,000, (more content not included)... Normal [facility] Comment on above: Result Comment: Elec tronically Signed By: Brittni Carreon M.D.\.br\Date and Time Signed: 01/28/22 07:16 EDT\.br\Electronically Co-Signed By: Jes Montesinos PA-C\.br\Date and Time Co-Signed: 01/28/22 00:21 EDT Auto Diffon 01-27-2022 Basophils/100 WBC (Bld) 1.1 % Normal 0.0-2.0 [facility] Comment on above: Order Comment: Order Added by Discern Expert. Performed By: #### 2 217064, 43558326, 1834507, 1592978 ####[facility] [address] [place] [address] Basophils/Leukocytes Auto (Bld) [Pure # fraction] 0.1 E9/L Normal 0.0-0.2 [facility] Comment on above: Order Comment: Order Added by Discern Expert. Performed By: #### 2 819281, 97527709, 7784560, 9348127 ####[place] [address] [place] [address] Eosinophils/100 WBC (Bld) 2.7 % Normal 0.0-8.0 [facility] Comment on above: Order Comment: Order Added by Discern Expert. Performed By: #### 2 562310, 43996243, 3985789, 2159208 ####[address] [address] Eosinophils/Leukocyte s Auto (Bld) [Pure # fraction] 0.3 E9/L Normal 0.0-0.5 [facility] Comment on above: Order Comment: Order Added by Discern Expert. Performed By: #### 2 069337, 39858117, 0194686, 4474584 ####[address] [address] Lymphocytes/100 WBC (Bld) 35.8 % Normal 14.0-50.0 [facility] Comment on above: Order Comment: Order Added by Discern Expert. Performed By: #### 2 258636, 65351806, 4094595, 2329357 ####[address] [address] Lymphocytes/Leukocyte s Auto (Bld) [Pure # fraction] 4.5 E9/L High 1.0-4.0 [facility] Comment on above: Order Comment: Order Added by Discern Expert. Performed By: #### 2 562442, 23271100, 8399811, 2080658 ####[address] [address] Monocytes/100 WBC (Bld) 9.4 % Normal 4.0-14.0 [facility] Comment on above: Order Comment: Order Added by Discern Expert. Performed By: #### 2 835964, 40848048, 9643442, 7793081 ####[address] [address] Monocytes/Leukocytes Auto (Bld) [Pure # fraction] 1.2 E9/L High 0.2-1.0 [facility] Comment on above: Order Comment: Order Added by Discern Expert. Performed By: #### 2 079142, 98180905, 3570278, 3430275 ####[address] [place] [address] Neutrophils/100 WBC (Bld) 51.0 % Normal 36.0-75.0 [facility] Comment on above: Order Comment: Order Added by Discern Expert. Performed By: #### 2 642617, 73353104, 2359306, 0065285 ####[address] [place] [address] Neutrophils/Leukocyte s Auto (Bld) [Pure # fraction] 6.4 E9/L Normal 2.0-7.5 [facility] Comment on above: Order Comment: Order Added by Discern Expert. Performed By: #### 2 550562, 16911416, 5897877, 1365542 ####[address] [address] CBC w/ Auto Diffon Erythrocyte distribution width (RBC) [Ratio] 13.7 % Normal 10.9-14.2 [facility] Comment on above: Performed By: #### 2 340171, 06526932, 0205756, 0563483 ####[address] [address] Hematocrit (Bld) [Volume fraction] 36.2 % Normal 34.0-46.0 [facility] Comment on above: Performed By: #### 2 673072, 80213571, 1355423, 4781219 ####[address] [address] Hemoglobin (Bld) [Mass/Vol] 11.5 g/dL Low 12.0-16.0 [facility] Comment on above: Performed By: #### 2 399192, 52460614, 1592365, 7083578 ####[address] [place] [address] MCH (RBC) [Entitic mass] 28.6 pg Normal 27.0-34.0 [facility] Comment on above: Performed By: #### 2 296000, 20978941, 6748494, 5525295 ####[place] [address] MCHC (RBC) [Mass/Vol] 31.9 g/dL Normal 31.4-36.0 [facility] Comment on above: Performed By: #### 2 748654, 00623678, 0508315, 6474572 ####[place] [address] MCV (RBC) [Entitic vol] 89.7 fL Normal 80.0-100.0 [facility] Comment on above: Performed By: #### 2 032872, 21199592, 7673080, 4014595 ####[place] [address] Platelet mean volume (Bld) [Entitic vol] 9.4 fL Normal 6.4-10.8 [facility] Comment on above: Performed By: #### 2 361008, 72397061, 8439103, 1867169 ####[place] [address] Platelets (Bld) [#/Vol] 296.0 E9/L Normal 150.0-500.0 [facility] Comment on above: Performed By: #### 2 833093, 65990640, 3002142, 8807612 ####[place] [address] RBC (Bld) [#/Vol] 4.0 E12/L Low 4.3-5.9 [facility] Comment on above: Performed By: #### 2 130681, 14995261, 8648168, 5349434 ####[place] [address] WBC corrected for nucl RBC Auto (Bld) [#/Vol] 12.5 E9/L High 4.0-11.0 [facility] Comment on above: Performed By: #### 2 334869, 55514672, 7847281, 7591102 ####[facility] [address] [place] [address] CHEMISTRYOrdered By: SYSTEM SYSTEM on 01-27-2022 Albumin [...] 3.7 mmol/L Normal 3.5 - 5.3 mmol/L [facility] Remisol Protein [Mass/Vol] 7.4 g/dL Normal 6.0 - 7.8 gm/dL [facility] Remisol Sodium [Moles/Vol] 136 mmol/L Normal 135 - 145 mmol/L [facility] Remisol Urea nitrogen [Mass/Vol] 15 mg/dL Normal 5 - 21 mg/dL [facility] Remisol Urea nitrogen/Creatinine [Mass ratio] 21 mg/mg High 10 - 20 [facility] Remisol CMPon 01-27-2022 Albumin [Mass/Vol] 4.0 g/dL Normal 3.3-5.0 [facility] Comment on above: Performed By: #### 2 816990, 71403003, 0443507, 7072605 ####[facility] [address] [place] [address] Albumin/Globulin (S) [Mass conc ratio] 1.2 Normal 1.1-2.2 [facility] Comment on above: Performed By: #### 2 343360, 40794995, 7645830, 9858209 ####[facility] [address] [place] [address] ALP [Catalytic activity/Vol] 55 Int._Unit/L Normal 21-98 [facility] Comment on above: Performed By: #### 2 335968, 46960186, 9765932, 3357079 ####[facility] [address] [place] [address] ALT No additional P-5'-P [Catalytic activity/Vol] 13 Int._Unit/L Normal 6-46 [facility] Comment on above: Performed By: #### 2 732889, 80449380, 2802294, 3875619 ####[facility] [address] [place] [address] AST [Catalytic activity/Vol] 17 Int._Unit/L Normal 5-43 [facility] Comment on above: Performed By: #### 2 383376, 03316494, 7353341, 0057450 ####[facility] [address] [address] Bilirubin [Mass/Vol] 0.6 mg/dL Normal 0.0-1.1 [facility] Comment on above: Performed By: #### 2 592116, 20410765, 5658299, 2503429 ####[facility] [address] [place] [address] Creatinine [Mass/Vol] 0.7 mg/dL Normal 0.5-1.3 [facility] Comment on above: Performed By: #### 2 393381, 35599785, 7445801, 3445008 ####[facility] [address] [place] [address] Globulin (S) [Mass/Vol] 3.4 g/dL Normal 1.4-4.0 [facility] Comment on above: Performed By: #### 2 836086, 05098123, 0713873, 5079587 ####[facility] [address] [place] [address] Protein [Mass/Vol] 7.4 g/dL Normal 6.0-7.8 [facility] Comment on above: Performed By: #### 2 990039, 41523011, 1189845, 7641112 ####[facility] [address] [place] [address] Urea nitrogen [Mass/Vol] 15 mg/dL Normal 5-21 [facility] Comment on above: Performed By: #### 2 466799, 23986768, 7153816, 7348417 ####[facility] [address] [place] [address] Urea nitrogen/Creatinine [Mass ratio] 21 No Units High 10-20 [facility] Comment on above: Performed By: #### 2 933384, 75965719, 3389070, 0715019 ####[facility] [address] [place] [address] Anion gap [Moles/Vol] 11 mmol/L Normal 6-16 [facility] Comment on above: Performed By: #### 2 163122, 44040754, 5203623, 5805649 ####[facility] [address] [place] [address] Calcium [Mass/Vol] 9.2 mg/dL Normal 8.9-11.1 [facility] Comment on above: Performed By: #### 2 972989, 73856238, 3787454, 3156798 ####[facility] [address] [place] [address] Chloride [Moles/Vol] 106 mmol/L Normal 101-111 [facility] Comment on above: Performed By: #### 2 224189, 21981639, 0002812, 0589526 ####[facility] [address] [place] [address] CO2 [Moles/Vol] 23 mmol/L Normal 21-31 [facility] Comment on above: Performed By: #### 2 618334, 91693908, 1929214, 1395228 ####[facility] [address] [place] [address] Glucose [Mass/Vol] 91 mg/dL Normal 55-199 [facility] Comment on above: Result Comment: If t his glucose result represents a fasting glucose, interpretation should refer to the following reference range: 55-99 mg/dL Performed By: #### 2 827884, 79500194, 2910732, 4797606 ####[facility] [address] [place] [address] Potassium [Moles/Vol] 3.7 mmol/L Normal 3.5-5.3 [facility] Comment on above: Performed By: #### 2 975773, 67932449, 2650477, 7177086 ####[facility] [address] [place] [address] Sodium [Moles/Vol] 136 mmol/L Normal 135-145 [facility] Comment on above: Performed By: #### 2 152669, 60126974, 7368431, 5139877 ####[facility] [address] [place] [address] Consent for Treatmenton Consent for Treatment [id number]: 127 Normal [facility] Discharge Instructionson Discharge Instructions [id number]:1 27 Normal [facility] ED Clinical Summaryon 2021 ED Clinical Summary (Inserted Image. Kristine ble to display) [address] [address] ED Clinical Summary Person Information Name: AIMEE REDDY/New_[place] Age: 21 Years : 2000 Sex: Female Language: Pakistani PCP: Britt Aguilar MD Marital Status: Single [...] 01/27/2022 19:10:22 01/27/2022 19:10:22 01/27/2022 19:10:22 ADDRESS: [address] [place] [id number] PHYS DOC NOTES: MEDICAL INFORMATION: Prescriptions Given: New Medications Printed Prescriptions nitrofurantoin (Macrobid 100 mg Cap) 1 Capsules By Mouth 2 times a day for 5 Days. Refills: 0. PATIENT EDUCATION INFORMATION: Instructions: Urinary Tract Infection, Adult, Dqrz-pj-Pjru Follow up: With: Address: When: Ulysses VERDE, STEPHEN [address] [place] [address] In 3 days 01/30/2022 With: Address: When: Lauren VERDE, Britt [facility] [place] [address] In 3 days 01/30/2022 DIAGNOSIS: 1:UTI (urinary tract infection); 2:Headache Normal [facility] ED Note-Nursingon 01-27-2022 ED Note-Nursing seizure pads applied Normal [facility] ED Patient Education Noteon 01-27-2022 ED Patient [...] these instructions at home: Medicines ? Take ewje-ijm-fpjegho and prescription medicines only as told by [...] 11/26/2008 Document Revised: 05/28/2019 Document Reviewed: 12/18/2018 [employer] Patient Education ? 2019 ALOSKO. Normal [facility] ED Patient Summaryon 022 ED Patient Summary (Inserted Image. Kristine ble to display) [place] [id number] Patient Discharge Instructions Person Information Name: AIMEE REDDY Age: 21 Years Arrival Date: 01/27/2022 16:00:57 Discharge Diagnosis: 1:UTI (urinary tract infection); 2:Headache Primary Care Physician: Britt Aguilar MD Provider Information Primary Provider: Brittni Carreon M.D. Advanced Java Developer Consultant:Aurand PA-C, Jes E. The exam and treatment you received in the Emergency Department were for an urgent problem and are not intended as complete care. It is important that you follow up with a doctor, nurse practitioner, or physician?s nutrition services assistant for ongoing care. If your symptoms [...] With: Address: When: Ulysses VERDE, STEPHEN Gamble [address] [place] [address] In 3 days 01/30/2022 With: Address: When: Lauren VERDE, Britt [facility] [place] [address] In 3 days 01/30/2022 In the event that this physician does not participate in your insurance network, please consult with your insurance company to find a nearby participating provider. Patient Education Materials: Urinary Tract Infection, Adult, Nrul-sj-Epfb A MESSAGE TO ALL PATIENTS REGARDING OPIOIDS PRESCRIPTION OPIOIDS: WHAT YOU NEED TO KNOW Prescription opioids can be used to help relieve wvoofnkq-yj-upzbcw pain and are often prescribed following a [...] struggling with (more content not included)... Normal [facility] HEMATOLOGYOrdered By: SYSTEM SYSTEM on 01-27-2022 Basophils/100 WBC (Bld) 1.1 % Normal 0.0 - 2.0 % [facility] [facility] Basophils/Leukocytes Auto (Bld) [Pure # fraction] 0.1 E9/L Normal 0.0 - 0.2 E9/L [facility] [place] [facility] Eosinophils/100 WBC (Bld) 2.7 % Normal [...] 4.0 E12/L Low 4.3 - 5.9 E12/L [facility] [place] [facility] WBC corrected for nucl RBC Auto (Bld) [#/Vol] 12.5 E9/L High 4.0 - 11.0 E9/L [facility] [place] [facility] Monitor Recordon 01-27-2022 Monitor Record [id number] :127 Normal [facility] SEROLOGYOrdered By: Cheryl brown on 01-27-2022 HCG.beta subunit (U) [Moles/Vol] Negative Normal [facility] [place] Man Sero U BetaHcg Qualon 01-27-2022 HCG.beta subunit (U) [Moles/Vol] Negative Normal [facility] Comment on above: Performed By: #### 2 [id number], [id number], [id number] ####[facility] [address] [place] [address] UA With Cult Reflexon 2021 Bacteria LM Ql (Urine sed) 3+ /HPF Abnormal Trace [facility] Comment on above: Performed By: #### 2 [id number], [id number], [id number] ####[facility] [address] [place] [address] Epithelial cells.squamous LM.HPF (Urine sed) [#/Area] 5-8 Normal 0-2 [facility] Comment on above: Performed By: #### 2 [id number], [id number], [id number] ####[facility] [address] [place] [address] Thaxton.plasma/Lithiu m.RBC (Bld) [Mass ratio] 0-3 Normal 0-3 [facility] Comment on above: Performed By: #### 2 [id number], [id number], [id number] ####[facility] [address] [place] [address] WBC LM.HPF (Urine sed) [#/Area] 16-25 Abnormal 0-5 [facility] Comment on above: Performed By: #### 2 [id number], [id number], [id number] ####[facility] [address] [place] [address] Bilirubin Ql (U) Negative Normal Negative [facility] Comment on above: Performed By: #### 2 [id number], [id number], [id number] ####[facility] [address] [place] [address] Clarity (U) CLEAR Normal Clear [facility] Comment on above: Performed By: #### 2 [id number], [id number], [id number] ####[address] [address] Color (U) YELLOW Normal Yellow [facility] Comment on above: Performed By: #### 2 [id number], [id number], [id number] ####[address] [address] Glucose Test strip (U) [Mass/Vol] Negative Normal Negative [facility] Comment on above: Performed By: #### 2 [id number], [id number], [id number] ####[address] [address] Hemoglobin Ql (U) Negative Normal Negative [facility] Comment on above: Performed By: #### 2 [id number], [id number], [id number] ####[address] [address] Ketones (U) [Mass/Vol] Negative Normal Negative [facility] Comment on above: Performed By: #### 2 [id number], 46587956, 6293678 ####[address] [address] Nitrite Ql (U) Positive Abnormal Negative [facility] Comment on above: Performed By: #### 2 [id number], 74575650, 1513785 ####[address] [address] pH (U) 8.0 [pH] Invalid Interpretation Code 5.0-9.0 [facility] Comment on above: Performed By: #### 2 3667880, 27529370, 9299026 ####[facility] [place] [address] Protein (U) [Mass/Vol] Negative Normal Negative [facility] Comment on above: Performed By: #### 2 2437398, 89082495, 3645489 ####[facility] [address] [place] [address] Specific gravity (U) [Rel density] 1.015 Invalid Interpretation Code 1.005-1.030 [facility] Comment on above: Performed By: #### 2 3623245, 72542679, 8471658 ####[place] [id number] Type of Urine collection method Random Urine Normal [facility] Comment on above: Performed By: #### 2 9701911, 83164865, 0328877 ####[place] [address] Urobilinogen Qn (U) 1.0 {Polina'U}/dL Normal 0.0-1.0 [facility] Comment on above: Performed By: #### 2 7910728, 60922027, 3220186 ####[place] [address] WBC Auto Ql (U) Negative Normal Negative [facility] Comment on above: Performed By: #### 2 1776908, 20287197, 8668170 ####[place] [address] URINALYSISOrdered By: Cheryl Hills on 01-27-2022 Bacteria [...] PM) Normal Negative [facility] UA Auto SS [place].plasma/Lithiu m.RBC (Bld) [Mass ratio] 0-3 /HPF Normal [...] Desc Random Urine (01/27/22 5:52 PM) Normal [facility] UA Auto SS Urobilinogen Qn (U) 1.1512907 {Polina'U}/dL Normal 0.0 - 1.0 EU/dL [facility] UA Auto SS WBC Auto Ql (U) Negative (01/27/22 5:52 PM) Normal Negative [facility] UA Auto SS WBC LM.HPF (Urine sed) [#/Area] 16-25 /HPF Invalid Interpretation Code 0-5/HPF [facility] UA Auto SS eGFRon 01-27-2022 GFR/1.73 sq M.predicted among blacks MDRD (S/P/Bld) [Vol rate/Area] mL/min/{1.73_m2} Normal >=59 [facility] Comment on above: Order Comment: Order added by Discern Expert. Result Comment: eGFR is race adjusted. AA=. Performed By: #### 2 107245, 57166198, 1139827, 3087351 ####[facility] [address] [place] [address] GFR/1.73 sq M.predicted among non-blacks MDRD (S/P/Bld) [Vol rate/Area] mL/min/{1.73_m2} Normal >=59 [facility] Comment on above: Order Comment: Order added by Discern Expert. Result Comment: Chief Pilot ammon kidney disease could be indicated at eGFR's of less than 60 mL/min/1.73m2. Kidney failure is indicated at less than 15 mL/min/1.73m2. Performed By: #### 2 774730, 51358128, 5606863, 6723134 ####[facility] [address] [place] [address] Coding Summary.on 01-04-2022 Coding Summary. CD:[id number] Gh0b Ww+PGhlYWQ+GG0PEIRpK77qm CUtpA3SQ3qEPO5YDYUXISQCA U3REP4uoLT8JBzgT0RnyoLs FooedZCvGG65DOe1TZC3xOfb DRmvhW6yhIBuS6s2YsJzWQ06 pY31MPuqYQKdAoB8JyTlgiot bWFy B8ruSxSuwYLsPka+PHRhYmxl IHdpZHRoPScxMDAlJyBzdHls NB3lBv3cARSaPTIxnZuhcKHk OiBj v4qkYEEfDLrkHF8dnRkoK0Mx oSU2NTOvd7p5Eb56jOW+PHRk ADS8lZlfNJkme356QzOfv3gr IDM3 eIOuJCiqZGW4X86wv5F6BIVs FKIxZKF0wRV4hM5vaHfgvdoy K3JmyELpRsW4HZI3sFJxtN7n bGln gzrhrC5iHqb+G65ELU7XHZEG SM2GLie4P5ZkTvammCB+PC90 DXDuHV17iJXfwULef4eccPc0 JzEw MZLpHRM7uLetGTxjy6UdEIWp H66xyOXxl9J4LCRqiDcqiIQf UpCgeWN4gS2aKMabxsyfd2bz dzsn Uialg9ootm40fI55J76tLQmd YOWxJCE0PTIhEMBcvOqxaf2j yY1tEz8+NPeoi6shq2imaSk3 IjIw OZOphdLzkDswCSU7k3MaLp63 M4KrmMjev5JmCwe3at10kDJp y4Z3aPN0HQlaHJRimH5uPXnu ZnQ6 BUOhEuZwyO70cVAwTUpwSq0x cFqtoPfpLT6zGNGrzmpnRWMf lD3fLWPyoZQytDznAE0vDUWj bjtm l958YpAgIHO8GWLlkVLqV4Wy bL3fEiRhWRKvQRWbK0UihNFm HOewC535VCrfViP7OROfnzYu Y2Fs RSHgqAumQkN7h5D9Vj6Jb4Gt gcopGWW1VMugXUM4GiSjEmNu XrB4M6RxVrg3BIZlhQxtVG2u J3Bh CRApnxhzeyempAC3LQAdGSWm aW24uUIcSJoeHs2kl3B6x499 YFXyILKnsW95Er4vjZcbBRBw dCBU kB8ccfvyo4wbdqciOnJhXJBu DKi6QHf9VOHysCmkDnWfMUK2 WtO7TJX5wRZuuH3mzJakzfqy dG9w Oyc+T52ilB2fQUL4NPS4esak CHPfmzXbUO83UZ48A2NbVwdh dGFibGU+XDSlpxKiuXvfQH3s YmFj n9rmd2TsDVhuB7SoWXFjSUhw Hzb5REAuEIJ7fGE0lQ2rAVSz HSaya5X2aQM2Y6UctvDfdo7m b2xs ITAkGQyzO79ldSXum0Z3QEDw uOA7FWQaaCuhGpOowS78Ggx+ NDZbfKmoq7KaRaonm2nux5nk dGg9 GmJzDJThjtTzuXewGRD8h8He Qk23H94bOOypENFdTFSwHVYu RQSfcSuoud0axT7aIh0+PGNv bCB3 rKZ9hK5tGCXoZeB9KKybB895 UzXkxPHvXiwvg9yba7pyiZb8 MpEwWLTbolHjmFfbXOS9m7Zt Lz48 B69lPYyvDVTqXYSgACOlYEEb qYyxjd3xlO3wRs4+TY6nm5cf ry95gR61gKA+XPJsBEO6qVtq PSdw NSEkbQ6pAVikXiR3NUFwVaTj iH64tSLqMXjmCr9fdZvslOmz VM8kNCYuxlegu464ZkNjq7ig IDEw iNOlWUgoNXJ7S66sx1D5DYJz KSNiCGJ4fQN5mT4rbCyoscgo bGVmdDsgdmVydGljYWwtYWxp Z246 IHRvcDsnPlBhdGllbnQgTmFt NAt6O4JrRec0SHAhmKobMX8d tFMsTAkxIb8ibSozbRalHZ2d NTBp wmpmj688SxOwm9kiKSKeeLSx QSniABB2M04gy3Z1BEZdXRNx WZE0dMI7fV7woFvsvkauwPAf dDsg jxYawFboIRvgRXaoY775QBJn bAcwWtNnsxUwMEXbqNE0ZF71 QW46kBGem1C6qSF3A9OpNBBz bmct pmubuXS4POErBEUjdC08Xl7p nSjuWf6eNGEuZUH9SSUvlHHy K9HddL9xMmYfSLRlULPjG9Ht eHQt WGxzK157XCnmArM2UTZmdqQd G2DgGFBkrSfaAvB1t1C1Ng3B U2T3AB20VW55eWUzw2E4eCW6 J3Bh REVotmrvnhyobJU2XPWjCCMs wB45Vp5qlQrfFk4gFQVcIGZ7 CPQrnPOpE6JseG2tEmBjVRLw MDAw Y1KjkBHaMOykH844ENvmKoE1 GKOaqkZcD6HxTPNzhBuqFiM2 w9V8Cs7FJKw8SM85IM03kGVu c3R5 hKV5J0VtFONwbxwgjetbqUO0 BIUxMAFsmC88Pv7tbGxxYy7y WVSdHYD0BNOjiTYgC1ZobS1g OiAj LFHjNCFiO3OqiFJiMZmsM756 WYugMsK8LTSgueGcU1SeVSJb qFldQvA9u7J1Yu0SOCKePP79 IFR5 yMI2RS75ZL35V3LhNmecaKJv bGU+PHRhYmxlIHdpZHRoPScx XNSxKnWszVyxAE5wNi6sKVSo LWNv vSclbEKyNjUaq6rkTUFwTAwc GG6reOwaJ8UzzNH1RIAsn7o1 Ca34B64nI0JwxBB+PGNvbCB3 aWR0 oX2fKhXpTjR2UCvvP167CdCx bYPqWcdeb5kht3hidDp2HyY0 HHCeqnAryChuZVG9u6SfIf63 Y29s IHdpZHRoPSIxNSUiIHZhbGln pl2fhA1uHb8+UGGajJR1kIQ8 eX2tLiZrSuO8TSrjW137TxQg cCIv Bwpfk7hwz1ouaGp1RhEeUCHu ybCljXswDYI7k0LfZi98J7Pw dQrzq3YlRrb2ln71ePZek4M2 bGU9 X9WiWMClovyxeBBonPcpZK4s MEZkqbowSDNhhL0mPCXqZ1q7 KqMnUwR2EDwgU1EsndY3HYSm cHQg VJmoRSZ1L82yi5X0XTSfIFLt VDG9sNZ5qN0ziOpfqnwmeMBn gQcobpUxpOizFIdzYUemM598 IHRv mXbcKUWlqP1vECKiqUCddYmj OW9dEGZkswyvCmiTI27XGRJr CCFAQLFSVG38TU96tQNcz1Z2 bGU9 S3OzYGBgjmxvivoinZB2QCUx RXInpG90cCQrSKhvSo1to4G7 t495OFGxLDYnqV98Ff5rtVvh MTBw aMFUkJ5uvcciy5dezeqmMaUy ARApVVy4DDu2VHGopUvmNiXg PTO7ZzU9CHG6yFBflF4yxKtd bjog qU3hPlc+MDgvMjkvMjAwMDwv dGQ+LHQmZXY6hTkjYXymAOFl uX7pCEGmV6g0KvYmIlH5XEnp O3Bh FVTsbpiyBv95sX8lZtKzQuX3 YFbzK2RyfuS3OOYhuZLcJWau RAW4A04jk7H6DMDvSZOrVXR3 dGV4 dS3ixSvztjgwlGPseFpgvcJh sVcnHCvhKYmoR513EVFloFoz XcHoKPwrFJQjTS29JM36wSQg c3R5 jFH9N7RrSPWryoikljjpzGX9 NFGdHJHowT32sJGkCKqxDp4v k8J0t510DAWbZGAemR76Dy1t dDog QWJxfIUYrJ7yfrhym4qmitoh TjQcQNTeEJo2CJy1DFCyyCqo ErLyWLI4BwX3WTG2iNOrpS0n bGln liwsxU2vWmz+ByRmHBzpRL26 LP32hIMvs4D0pHH5I4LuNYRc vkrbyuunuVK7QORrECMlrH52 cGFk SLwhSm1oz4B6d354GSGvOUTg hP70Qv9ceEzbYAWqsRUGoA6q iugkn4hvnasuLsDnYYTnNPm8 ZXh0 FNQodMpwYuQsMNH1LpG8CLM8 lRQtkB6qsNyptexzyT9sJnx+ IU3ualhbrbK3EG02IQ85W5Lp Pjwv dGFibGU+PHRhYmxlIHdpZHRo CJdkDCIgUjXoyTfpOD4sVf2f RWXyNTBukPvenSAsUpMny2zw YXBz PItuUL7jrVhvJ3OouOD9GYHi x3m5Rt27V85wP8YodSP+PGNv eZB5jRF0zB8cHqLsDyE9GJmp Z249 JiKwwQUiHskgu5twt1pbgZj7 RlRcJUXncwRzyLdkHZG2y6Qw Cx79A47yGYvvLOTeIXYqJKMk IHZh kSbczo2thX7gZv3+PGNvbCB3 iBK3oJ0iDzArQbK8RJfwU412 YmSukKGoMhpjF72tC3OirDI+ PHRy Shf1XNAigFrtLJ2fzPYlVJhd Zc7oCUN5NfHxOjMbNLstW0Yb KLBnfxsxhbycgSD4GQAjVZFf aW47 Bf3hyCtgZe2wMKDnMZT8AAAm cGKiW1RnjJ3yHyVtNQWnZMSh A7KbyOKoHBpyL940SPimJhR9 IHZl zaKsA4YlTJBtiZazVcB8q3X4 Ol1UnEehlSYpDE3dJmFjHFv7 S7YlJqj8GRZkaSwrNK1ezRLu ZGlu Pu5krEbthAarQJ9bYSIxqpyo z369ByVkd4mdTIDzeYRjZBqt GSY5I15ys1E2KTDdTVLuLRR6 dGV4 aK9dvFabmhcuoKHugEfzgrOe uNorJKqaWTsjE706PXIunCwu RpKCJmh6D6OzTay7KCDcvYwk ZT0n wXZxMNxvHt7xpNtxyVubVE6q HGGfauefv740GyKys7xnSGRf yWWkVZonFIL3D52zr9W5SWNi MDAw XKW0mCJ9aH2gvXtpuatynVZf dWqcynCntLzzPMrqNTuwY239 PWKhoUspZv4NEdo3M3YtGdf9 ZCBz eGqzQI7elVAhPHztNh2xiLxq eVpoEU1rLYBiquumm546KeKo w6egTVFlwJHpBIvbEIG0X90q b3I6 KPLyMFVmPXO1bHP8sI3ywBbb bjogbGVmdDsgdmVydGljYWwt JZnzK206MKDqbGayKfIgvKSd Ojwv dGQ+GR55yr45X4FkJamxPfe8 KYHlRGT9rGZ4pS9jYBTrWKzo c9F0jCA9W1WqojXvii3od2up YXBz ZTog (more content not included)... Normal [facility] Discharge Instructionson Discharge Instructions [id number] :127 Normal [facility] Auto Diffon 12-31-2021 Basophils/100 WBC (Bld) 1.0 % Normal 0.0-2.0 [facility] Comment on above: Order Comment: Order Added by Discern Expert. Performed By: #### 2 013510, 1671750, 5558957, 24249266, 0479767, 87095473, 87391958 ####[facility] [address] [place] [address] Basophils/Leukocytes Auto (Bld) [Pure # fraction] 0.1 E9/L Normal 0.0-0.2 [facility] Comment on above: Order Comment: Order Added by Discern Expert. Performed By: #### 2 976940, 6013474, 1944776, 33233457, 3251380, 69616565, 96763357 ####[facility] [address] [place] [address] Eosinophils/100 WBC (Bld) 4.0 % Normal 0.0-8.0 [facility] Comment on above: Order Comment: Order Added by Discern Expert. Performed By: #### 2 576554, 4664770, 1559662, 53940602, 2124665, 44315996, 31627016 ####[facility] [address] [place] [address] Eosinophils/Leukocyte s Auto (Bld) [Pure # fraction] 0.4 E9/L Normal 0.0-0.5 [facility] Comment on above: Order Comment: Order Added by Discern Expert. Performed By: #### 2 723279, 0212520, 1456497, 61465745, 2083056, 36520208, 54262708 ####[place] [address] [place] [address] Lymphocytes/100 WBC (Bld) 35.3 % Normal 14.0-50.0 [facility] Comment on above: Order Comment: Order Added by Discern Expert. Performed By: #### 2 094195, 2089843, 4167203, 81429109, 6243108, 96453283, 52743413 ####[place] [address] [place] [address] Lymphocytes/Leukocyte s Auto (Bld) [Pure # fraction] 3.8 E9/L Normal 1.0-4.0 [facility] Comment on above: Order Comment: Order Added by Discern Expert. Performed By: #### 2 560655, 5643809, 4920372, 00995280, 5974596, 47606881, 49329277 ####[place] [address] [place] [address] Monocytes/100 WBC (Bld) 9.3 % Normal 4.0-14.0 [facility] Comment on above: Order Comment: Order Added by Mckay Expert. Performed By: #### 2 988039, 1125485, 4498378, 93062223, 3085266, 18291045, 65757574 ####[place] [address] [place] [address] Monocytes/Leukocytes Auto (Bld) [Pure # fraction] 1.0 E9/L Normal 0.2-1.0 [facility] Comment on above: Order Comment: Order Added by Discern Expert. Performed By: #### 2 391647, 7723310, 4819430, 35397974, 4091071, 75052984, 28034640 ####[place] [address] [place] [address] Neutrophils/100 WBC (Bld) 50.4 % Normal 36.0-75.0 [facility] Comment on above: Order Comment: Order Added by Discern Expert. Performed By: #### 2 097247, 5332011, 1225693, 48255109, 8728517, 80954998, 61671732 ####[address] [address] Neutrophils/Leukocyte s Auto (Bld) [Pure # fraction] 5.4 E9/L Normal 2.0-7.5 [facility] Comment on above: Order Comment: Order Added by Discern Expert. Performed By: #### 2 338781, 1300082, 9972212, 99133333, 5122019, 04891596, 92875854 ####[place] [address] [place] [address] B hCG Qualon 12-31-2021 Beta hCG Ql Negative Normal [facility] Comment on above: Performed By: #### 2 981626, 6229826, 1748286, 02629135, 2467606, 43737786, 03410094 ####[facility] [address] [place] [address] BMPon 12-31-2021 Creatinine [Mass/Vol] 0.8 mg/dL Normal 0.5-1.3 [facility] Comment on above: Performed By: #### 2 127700, 3374678, 9515289, 38513503, 5814273, 01949170, 14307699 ####[address] [address] Urea nitrogen [Mass/Vol] 14 mg/dL Normal 5-21 [facility] Comment on above: Performed By: #### 2 371837, 7137084, 9802729, 52149802, 7151704, 87957009, 61257394 ####[facility] [address] [place] [address] Urea nitrogen/Creatinine [Mass ratio] 18 No Units Normal 10-20 [facility] Comment on above: Performed By: #### 2 035876, 4906997, 2172862, 41208477, 9545335, 66601943, 99134833 ####[facility] [address] [place] [address] Anion gap [Moles/Vol] 11 mmol/L Normal 6-16 [facility] Comment on above: Performed By: #### 2 316934, 3709590, 4943058, 22868208, 3583529, 69266650, 50632143 ####[facility] [address] [address] Calcium [Mass/Vol] 9.5 mg/dL Normal 8.9-11.1 [facility] Comment on above: Performed By: #### 2 275204, 9086738, 6174372, 19780837, 3759558, 59472245, 51796751 ####[facility] [address] AveNlaw[address] [address] Chloride [Moles/Vol] 105 mmol/L Normal 101-111 [facility] Comment on above: Performed By: #### 2 533681, 6948549, 6442233, 46095103, 0051234, 43382875, 12265703 ####[facility] [address] [place] [address] CO2 [Moles/Vol] 26 mmol/L Normal 21-31 [facility] Comment on above: Performed By: #### 2 158769, 0188996, 9122503, 62688043, 5652243, 47815975, 04332110 ####[facility] [address] [place] [address] Glucose [Mass/Vol] 81 mg/dL Normal 55-199 [facility] Comment on above: Result Comment: If t his glucose result represents a fasting glucose, interpretation should refer to the following reference range: 55-99 mg/dL Performed By: #### 2 259591, 6962043, 4812240, 36447765, 7146886, 73813688, 73297900 ####[facility] [address] [place] [address] Potassium [Moles/Vol] 3.7 mmol/L Normal 3.5-5.3 [facility] Comment on above: Performed By: #### 2 888147, 4401787, 5113319, 85777858, 8481601, 38581265, 18923387 ####[facility] [address] [place] [address] Sodium [Moles/Vol] 138 mmol/L Normal 135-145 [facility] Comment on above: Performed By: #### 2 021928, 6035893, 1204130, 91979204, 0309730, 04335040, 63970003 ####[facility] [address] [place] [address] CBC w/ Auto Diffon Erythrocyte distribution width (RBC) [Ratio] 13.7 % Normal 10.9-14.2 [facility] Comment on above: Performed By: #### 2 125814, 7065703, 9725137, 48093179, 7114363, 06375429, 07921988 ####[facility] [address] [place] [address] Hematocrit (Bld) [Volume fraction] 37.2 % Normal 34.0-46.0 [facility] Comment on above: Performed By: #### 2 388154, 8174504, 1015252, 83373956, 9808905, 20671191, 08608052 ####[facility] [address] [place] [address] Hemoglobin (Bld) [Mass/Vol] 12.4 g/dL Normal 12.0-16.0 [facility] Comment on above: Performed By: #### 2 406137, 5701203, 8515261, 98409955, 2773163, 52690516, 89182001 ####[facility] [address] [place] [address] MCH (RBC) [Entitic mass] 29.3 pg Normal 27.0-34.0 [facility] Comment on above: Performed By: #### 2 684542, 0254674, 8154767, 08674695, 5240809, 05700239, 15378834 ####[facility] [address] [place] [address] MCHC (RBC) [Mass/Vol] 33.4 g/dL Normal 31.4-36.0 [facility] Comment on above: Performed By: #### 2 430341, 9873933, 1974133, 90805604, 2864936, 03610220, 93264326 ####[address] [address] MCV (RBC) [Entitic vol] 87.8 fL Normal 80.0-100.0 [facility] Comment on above: Performed By: #### 2 283527, 9714824, 9419689, 22140796, 2778123, 38427330, 75253270 ####[address] [address] Platelet mean volume (Bld) [Entitic vol] 9.3 fL Normal 6.4-10.8 [facility] Comment on above: Performed By: #### 2 828462, 2187171, 8144255, 62808274, 5907326, 02001619, 11579766 ####[address] [address] Platelets (Bld) [#/Vol] 339.0 E9/L Normal 150.0-500.0 [facility] Comment on above: Performed By: #### 2 064450, 0617787, 0346975, 60645125, 7781684, 77163888, 69304310 ####[facility] [address] [place] [address] RBC (Bld) [#/Vol] 4.2 E12/L Low 4.3-5.9 [facility] Comment on above: Performed By: #### 2 291452, 0435165, 5281201, 84198532, 9691882, 16023389, 58696086 ####[facility] [address] [place] [address] WBC corrected for nucl RBC Auto (Bld) [#/Vol] 10.8 E9/L Normal 4.0-11.0 [facility] Comment on above: Performed By: #### 2 140205, 4893094, 3076305, 12919645, 3951083, 09751065, 16815913 ####[facility] [address] [place] [address] CHEMISTRYOrdered By: SYSTEM SYSTEM on 12-31-2021 Albumin [...] for Treatmenton 12-22 Consent for Treatment [id number]: 127 Normal [facility] ED Clinical Summaryon 2021 ED Clinical Summary (Inserted Image. Kristine ble to display) [address] [place] [address] ED Clinical Summary Person Information Name: AIMEE REDDY/NewKrish Age: 21 Years : 2000 Sex: Female Language: Pakistani PCP: Britt Aguilar MD Marital Status: Single [...] 12/31/2021 19:45:50 12/31/2021 19:45:50 12/31/2021 19:45:50 ADDRESS: [address] [place] [id number] [facility] DOC NOTES: MEDICAL INFORMATION: Prescriptions Given: PATIENT EDUCATION INFORMATION: Instructions: Seizure, Adult, Igsm-cg-Ierr Follow up: With: Address: When: Tye Arora [address] [place] [place] [address] Business (1) In 3 days 01/03/2022 With: Address: When: Britt Aguilar [address] [place] [address] Business (1) In 3 days DIAGNOSIS: Recurrent episodes of unresponsiveness Normal [facility] ED Note-Physicianon 01-01-20 ED Note-Physician Basic Information [...] in nature and sent her to a excellence leader where she had a monitor and other [...] Arora In 3 days 01/03/2022 EDT [address] [place] [address]- Business (1) Additional Instructions: Britt Aguilar In [address] [place] [address]- Business (1) Additional Instructions: Patient Education Seizure, Adult, Ieug-st-Uhby Problem List/Past Medical History Ongoing No qualifying [...] 18:51:00) Lymph Auto: 35.3 % (12/31/21 18:51:00) Valley Auto: 9.3 % (12/31/21 18:51:00) Eos Auto: 4 % (12/31/21 18:51:00) Basophil Auto: 1 % (12/31/21 18:51:00) Neutro Absolute: 5.4 E9/L (12/31/21 18:51:00) Lymph Absolute: 3.8 E9/L (12/31/21 18:51:00) Valley Absolute: 1 E9/L (12/31/21 18:51:00) Eos Absolute: [...] 18 (more content not included)... Normal [facility] Comment on above: Result Comment: Elec [...] these instructions at home: Medicines ? Take cegx-rai-ayafaqp and prescription medicines only as told by [...] [place] ask your local DMV (department of [employer]) when you can drive. ? Get plenty [...] medicine f (more content not included)... Normal [facility] ED Patient Summaryon 022 ED Patient Summary (Inserted Image. Kristine ble to display) [address] [address] Patient Discharge Instructions Person Information Name: AIMEE REDDY Age: 21 Years Arrival Date: 12/31/2021 18:32:31 Discharge Diagnosis: Recurrent episodes of unresponsiveness Primary Care Physician: Britt Aguilar MD Provider Information Primary Provider: Ji Grimes DO Advanced Java Developer Consultant:None The exam and treatment you received in the Emergency Department were for an urgent problem and are not intended as complete care. It is important that you follow up with a doctor, nurse practitioner, or physician?s nutrition services assistant for ongoing care. If your symptoms [...] Follow-up Instructions: With: Address: When: Tye Arora [address] [place] [address] [place] [address] Business (1) In 3 days 01/03/2022 With: Address: When: Britt Aguilar [place] [address] [employer] (1) In 3 days In the event that this physician does not participate in your insurance network, please consult with your insurance company to find a nearby participating provider. Patient Education Materials: Seizure, Adult, Gtmm-vt-Hsyh A MESSAGE TO ALL PATIENTS REGARDING OPIOIDS PRESCRIPTION OPIOIDS: WHAT YOU NEED TO KNOW Prescription opioids can be used to help relieve tikoiqhn-on-mycjkr pain and are often prescribed following a [...] tell your (more content not included)... Normal [facility] HEMATOLOGYOrdered By: SYSTEM SYSTEM on 12-31-2021 Basophils/100 [...] Bilirubin.indirect [Mass or moles/Vol] UTC Abnormal 0.1-0.9 [facility] Comment on above: Result Comment: Resu lt verified by Discern [employer]. Performed result UTC (Unable to Calculate) was sent as an Alpha code due the inability to calculate a valid numeric value. Performed By: #### 2 [id number], 0998358, 5557663, 11663188, 8003077, 64715317, [id number] ####[facility] [address] [place] [address] Albumin [Mass/Vol] 4.2 g/dL Normal 3.3-5.0 [facility] Comment on above: Performed By: #### 2 357859, 5108026, 7071009, 18143947, 9442543, 05193761, 02309181 ####[facility] [address] [place] [address] Albumin/Globulin (S) [Mass conc ratio] 1.3 Normal 1.1-2.2 [facility] Comment on above: Performed By: #### 2 825193, 4941012, 5140430, 17214069, 7944695, 97211602, 53286819 ####[facility] [address] [place] [address] ALP [Catalytic activity/Vol] 59 Int._Unit/L Normal 21-98 [facility] Comment on above: Performed By: #### 2 706042, 9596468, 5114149, 28364993, 7406630, 11516598, 55815499 ####[address] [address] ALT No additional P-5'-P [Catalytic activity/Vol] 12 Int._Unit/L Normal 6-46 [facility] Comment on above: Performed By: #### 2 427099, 6510597, 2681627, 94389409, 2397935, 94002224, 74474513 ####[address] [address] AST [Catalytic activity/Vol] 16 Int._Unit/L Normal 5-43 [facility] Comment on above: Performed By: #### 2 027786, 4973035, 9183477, 39946994, 7550303, 62320410, 66728532 ####[facility] [address] [place] [address] Bilirubin [Mass/Vol] 0.5 mg/dL Normal 0.0-1.1 [facility] Comment on above: Performed By: #### 2 543491, 3975327, 7462798, 00102271, 3818225, 17614002, 88456558 ####[facility] [address] [place] [address] Bilirubin.direct [Mass/Vol] mg/dL Normal 0.1-0.4 [facility] Comment on above: Performed By: #### 2 223938, 0658517, 8760078, 08386898, 9262850, 99091748, 02992314 ####[facility] [address] [place] [address] Globulin (S) [Mass/Vol] 3.2 g/dL Normal 1.4-4.0 [facility] Comment on above: Performed By: #### 2 782366, 7119612, 3806864, 75772046, 3913602, 46682800, 89590168 ####[facility] [address] [place] [address] Protein [Mass/Vol] 7.4 g/dL Normal 6.0-7.8 [facility] Comment on above: Performed By: #### 2 228849, 0441707, 4070516, 66863339, 4872421, 51166345, 87520475 ####[facility] [address] [place] [address] SEROLOGYOrdered By: Lisbeth Corrigan lps on 12-31-2021 Beta hCG Ql Negative (12/31/21 6:51 PM) Normal [facility] [place] [facility] Troponin 0 Hr.on 12-31-2021 Troponin I.cardiac [Mass/Vol] ng/mL Low 10.10-27.10 [facility] Comment on above: Result Comment: The 95% CI (Confidence Interval) PPV (Positive Predictive Value) for myocardial infarction in females is 38 pg/mL, in males 51 pg/mL. The results should be used in conjunction with clinical conditions of myocardial infarction. (Access High Sensitivity Troponin I Instructions For Use, Rohini Gómez, January 2018) Performed By: #### 2 525916, 5550248, 2851707, 48009011, 3851712, 62552745, 96446423 ####[facility] [address] [place] [address] UA With Cult Reflexon 2021 Bilirubin Ql (U) Negative Normal Negative [facility] Comment on above: Performed By: #### 1 [id number] ####[facility] [address] [place] [address] Clarity (U) CLEAR Normal Clear [facility] Comment on above: Performed By: #### 1 [id number] ####[facility] [address] [facility] [place] [address] Color (U) YELLOW Normal Yellow [facility] Comment on above: Performed By: #### 1 [id number] ####[facility] [address] [place] [address] Epithelial cells.squamous LM.HPF (Urine sed) [#/Area] 0-2 Normal 0-2 [facility] Comment on above: Performed By: #### 1 [id number] ####[facility] [address] [place] [address] Glucose Test strip (U) [Mass/Vol] Negative Normal Negative [facility] Comment on above: Performed By: #### 1 [id number] ####[facility] [address] [facility] [place] [address] Hemoglobin Ql (U) Negative Normal Negative [facility] Comment on above: Performed By: #### 1 [id number] ####[facility] [address] [facility] [place] [address] Ketones (U) [Mass/Vol] Negative Normal Negative [facility] Comment on above: Performed By: #### 1 [id number] ####[facility] [address] [place] [address] Thaxton.plasma/Lithiu m.RBC (Bld) [Mass ratio] 0-3 Normal 0-3 [facility] Comment on above: Performed By: #### 1 [id number] ####[facility] [address] [facility] [place] [address] Nitrite Ql (U) Negative Normal Negative [facility] Comment on above: Performed By: #### 1 [id number] ####[facility] [address] [place] [address] pH (U) 6.0 [pH] Invalid Interpretation Code 5.0-9.0 [facility] Comment on above: Performed By: #### 1 [id number] ####[place] [address] Protein (U) [Mass/Vol] Negative Normal Negative [facility] Comment on above: Performed By: #### 1 [id number] ####[place] [id number] Specific gravity (U) [Rel density] 1.015 Invalid Interpretation Code 1.005-1.030 [facility] Comment on above: Performed By: #### 1 [id number] ####[place] [address] Type of Urine collection method Clean Catch Normal [facility] Comment on above: Performed By: #### 1 [id number] ####[place] [id number] Urobilinogen Qn (U) 0.2 {Polina'U}/dL Normal 0.0-1.0 [facility] Comment on above: Performed By: #### 1 [id number] ####[place] [id number] WBC Auto Ql (U) Negative Normal Negative [facility] Comment on above: Performed By: #### 1 [id number] ####[place] [id number] WBC LM.HPF (Urine sed) [#/Area] 0-5 Normal 0-5 [facility] Comment on above: Performed By: #### 1 [id number] ####[place] [id number] URINALYSISOrdered By: Lisbeth quan on 12-31-2021 Bilirubin [...] PM) Normal Negative [facility] UA Auto SS [place].plasma/Lithiu m.RBC (Bld) [Mass ratio] 0-3 /HPF Normal [...] [facility] UA Auto SS Urobilinogen Qn (U) 0.9310652 {Polina'U}/dL Normal 0.0 - 1.0 EU/dL [facility] UA Auto SS WBC Auto Ql (U) Negative (12/31/21 7:14 PM) Normal Negative [facility] UA Auto SS WBC LM.HPF (Urine sed) [#/Area] 0-5 /HPF Normal 0-5/HPF [facility] UA Auto SS eGFRon 12-31-2021 GFR/1.73 sq M.predicted among blacks MDRD (S/P/Bld) [Vol rate/Area] mL/min/{1.73_m2} Normal >=59 [facility] Comment on above: Order Comment: Order added by Discern Expert. Result Comment: eGFR is race adjusted. AA=. Performed By: #### 2 [id number], [id number], [id number], [id number], [id number], [id number], [id number] ####[facility] [address] [place] [address] GFR/1.73 sq M.predicted among non-blacks MDRD (S/P/Bld) [Vol rate/Area] mL/min/{1.73_m2} Normal >=59 [facility] Comment on above: Order Comment: Order added by Discern Expert. Result Comment: Chief Pilot ammon kidney disease could be indicated at eGFR's of less than 60 mL/min/1.73m2. Kidney failure is indicated at less than 15 mL/min/1.73m2. Performed By: #### 2 [id number], [id number], [id number], [id number], [id number], [id number], [id number] ####[facility] [address] [place] [address] CBCon 11-06-2020 Erythrocyte distribution width (RBC) [Ratio] 13.1 % Normal 11.5 - 14.5 [facility] Comment on above: Performed By: #### C BC #### [address] [id number] Hematocrit (Bld) [Volume fraction] 36.6 % Normal 36.0 - 46.0 [facility] Comment on above: Performed By: #### C BC #### [address] [id number] Hemoglobin (Bld) [Mass/Vol] 11.9 g/dL Low 12.0 - 16.0 [facility] Comment on above: Performed By: #### C BC #### [address] [id number] MCHC (RBC) [Mass/Vol] 32.5 g/dL Normal 32.0 - 36.0 [facility] Comment on above: Performed By: #### C BC #### [address] [id number] MCV (RBC) [Entitic vol] 92 fL Normal 80 - 100 [facility] Comment on above: Performed By: #### C BC #### [address] [id number] RBC 4.00 x10E12/L Normal 4.00 - 5.20 [facility] Comment on above: Performed By: #### C BC #### [address] [id number] WBC (Bld) [#/Vol] 14.4 10*3/uL High 4.4 - 11.3 [facility] Comment on above: Performed By: #### C BC #### [address] [id number] Platelets (Bld) [#/Vol] 368 10*3/uL Normal 150 - 450 [facility] Comment on above: Performed By: #### C BC #### [address] [id number] COMPREHENSIVE PANELon 2020 Albumin [Mass/Vol] 4.4 g/dL Normal 3.4 - 5.0 [facility] Comment on above: Performed By: #### C MP #### [address] [id number] ALP [Catalytic activity/Vol] 69 U/L Normal 33 - 110 [facility] Comment on above: Performed By: #### C MP #### [address] [id number] ALT [Catalytic activity/Vol] 10 U/L Normal 7 - 45 [facility] Comment on above: Result Comment: Radha ents treated with Sulfasalazine may generate falsely decreased results for ALT. Performed By: #### C MP #### [address] [id number] Anion gap [Moles/Vol] 12 mmol/L Normal 10 - 20 [facility] Comment on above: Performed By: #### C MP #### [address] [id number] AST [Catalytic activity/Vol] 13 U/L Normal 9 - 39 [facility] Comment on above: Performed By: #### C MP #### [address] [id number] Bilirubin [Mass/Vol] 0.4 mg/dL Normal 0.0 - 1.2 [facility] Comment on above: Performed By: #### C MP #### [address] [id number] Calcium [Mass/Vol] 9.5 mg/dL Normal 8.6 - 10.3 [facility] Comment on above: Performed By: #### C MP #### [address] [id number] Chloride [Moles/Vol] 104 mmol/L Normal 98 - 107 [facility] Comment on above: Performed By: #### C MP #### [address] [id number] Creatinine [Mass/Vol] 0.54 mg/dL Normal 0.50 - 1.05 [facility] Comment on above: Performed By: #### C MP #### [address] [id number] GFR- AM. >60 Normal >60 [facility] Comment on above: Result Comment: CALC ULATIONS OF ESTIMATED GFR ARE PERFORMED USING THE MDRD STUDY EQUATION FOR THE IDMS-TRACEABLE CREATININE METHODS. CLIN CHEM 2007;53:766-72 Performed By: #### C MP #### [address] [id number] GFR-NON AM. >60 Normal >60 [facility] Comment on above: Performed By: #### C MP #### [address] [id number] Glucose [Mass/Vol] 89 mg/dL Normal 74 - 99 [facility] Comment on above: Performed By: #### C MP #### [address] [id number] HCO3 (Bld) [Moles/Vol] 25 mmol/L Normal 21 - 32 [facility] Comment on above: Performed By: #### C MP #### [address] [id number] Potassium [Moles/Vol] 3.3 mmol/L Low 3.5 - 5.3 [facility] Comment on above: Performed By: #### C MP #### [address] [id number] Protein [Mass/Vol] 7.2 g/dL Normal 6.4 - 8.2 [facility] Comment on above: Performed By: #### C MP #### [address] [id number] Sodium [Moles/Vol] 138 mmol/L Normal 136 - 145 [facility] Comment on above: Performed By: #### C MP #### [address] [id number] Urea nitrogen [Mass/Vol] 13 mg/dL Normal 6 - 23 [facility] Comment on above: Performed By: #### C MP #### [address] [id number] HCG,URINEon 11-06-2020 Beta HCG ( test) Ql (U) Negative Normal Negative [facility] Comment on above: Performed By: #### H CGU #### [address] [id number] LIPASEon 11-06-2020 Lipase [Catalytic activity/Vol] 19 U/L Normal 9 - 82 [facility] Comment on above: Result Comment: Adriana puncture immediately after or during the administration of Metamizole may lead to falsely low results. Testing should be performed immediately prior to Metamizole dosing. H-irozii-x-benzoquinone imine (metabolite of Acetaminophen) will generate erroneously low results in samples for patients that have taken toxic doses of acetaminophen. 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 CARDIOVASCULAR: (more content not included)... 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 CHIEF COMPLAINT AIMEE REDDY is [...] BMI (kg/m2): 18.934 Calculated BSA (m2) 1.50 [place] Coma Scale: Best Eye Response: (E4) spontaneous [...] 22:49 by Joel Singer (CLIN COOR) Normal [facility] URINALYSIS WITH CULTURE IF I NDICATEDon 11-06-2020 Appearance (U) CLEAR Normal CLEAR [facility] Comment on above: Performed By: #### U ARFX #### [address] [id number] Bilirubin Ql (U) Negative Normal NEGATIVE [facility] Comment on above: Performed By: #### U ARFX #### [address] [id number] Color (U) COLORLESS Normal STRAW,YELLOW [facility] Comment on above: Performed By: #### U ARFX #### [address] [id number] Glucose Ql (U) Negative Normal NEGATIVE [facility] Comment on above: Performed By: #### U ARFX #### [address] [id number] Hemoglobin Ql (U) Negative Normal NEGATIVE [facility] Comment on above: Performed By: #### U ARFX #### [address] [id number] Ketones Ql (U) 5 (TRACE) Abnormal NEGATIVE [facility] Comment on above: Performed By: #### U ARFX #### [address] [id number] Leukocyte esterase Test strip Ql (U) Negative Normal NEGATIVE [facility] Comment on above: Performed By: #### U ARFX #### [address] [id number] Nitrite Ql (U) Negative Normal NEGATIVE [facility] Comment on above: Performed By: #### U ARFX #### [address] [id number] pH (U) 6.0 [pH] Normal 5.0 - 8.0 [facility] Comment on above: Performed By: #### U ARFX #### [address] [id number] Protein Ql (U) Negative Normal NEGATIVE [facility] Comment on above: Performed By: #### U ARFX #### [address] [id number] Specific gravity (U) [Rel density] 1.005 Normal 1.005 - 1.035 [facility] Comment on above: Performed By: #### U ARFX #### [facility] [address] [place], [place] [id number] Urobilinogen (U) [Mass/Vol] mg/dL Normal 0.0 - 1.9 [facility] Comment on above: Performed By: #### U ARFX #### [facility] [address] [place], [place] [id number] BUNon 02-05-2020 Urea nitrogen [Mass/Vol] 11 mg/dL 8 - 25 mg/dL [facility] Creatinine, serumon 02-05-20 20 Creatinine [Mass/Vol] 0.54 mg/dL 0.40 - 1.10 [facility] GFR/1.73 sq M predicted among non-blacks MDRD (S/P/Bld) [Vol rate/Area] The eGFR should be used for monitoring renal function only and not for medication dosing. [facility] GFR/1.73 sq M.predicted CKD-EPI (S/P/Bld) [Vol rate/Area] 137 >=60 mL/min/1.73 m2 [facility] Otheron 02-05-2020 Interpretation and review of laboratory results Normal [facility] TSH with Reflex Free T4on Interpretation and review of laboratory results Normal [facility] TSH Qn 1.16 m[IU]/L [facility] CBC WITH AUTO DIFFERENTIALon 12-23-2019 Basophils (Bld) [#/Vol] 0.10 10*3/uL [facility] Basophils/100 WBC (Bld) 0.9 % [facility] Eosinophils (Bld) [#/Vol] 0.91 10*3/uL High [facility] Eosinophils/100 WBC (Bld) 8.6 % [facility] Erythrocyte distribution width (RBC) [Entitic vol] 13.9 % 11.6 - 14.8 % [facility] Hematocrit (Bld) [Volume fraction] 43.3 % 36 - 46 % [facility] Hemoglobin (Bld) [Mass/Vol] 13.7 g/dL 12 - 16 g/dL [facility] Immature granulocytes (Bld) [#/Vol] 0.03 10*3/uL [facility] Immature granulocytes/100 WBC (Bld) 0.30 % [facility] Comment on above: The IG parameter is the percentage of metamyelocytes, myelocytes and promyelocytes. An immature granulocyte count (IG) of 1% or more suggests the possibility of infection, an IG count of 3% is very likely related to an infection. Lymphocytes (Bld) [#/Vol] 4.19 10*3/uL High [facility] Lymphocytes/100 WBC (Bld) 39.8 % [facility] MCH (RBC) [Entitic mass] 29.4 pg 26 - 34 pg [facility] MCHC (RBC) [Mass/Vol] 31.6 g/dL 31 - 37 g/dL [facility] MCV (RBC) [Entitic vol] 92.9 fL 80 - 100 fL [facility] Monocytes (Bld) [#/Vol] 1.22 10*3/uL High [facility] Monocytes/100 WBC (Bld) 11.6 % [facility] Neutrophils (Bld) [#/Vol] 4.08 10*3/uL [facility] Neutrophils/100 WBC (Bld) 38.8 % [facility] Nucleated RBC (Bld) [#/Vol] 0.00 10*3/uL [facility] Nucleated RBC/100 WBC (Bld) [Ratio] 0.0 % [facility] Platelet mean volume (Bld) [Entitic vol] 10.9 fL 9.4 - 12.4 fL [facility] Platelets (Bld) [#/Vol] 411 10*3/uL High [facility] RBC (Bld) [#/Vol] 4.66 10*6/uL [facility] WBC (Bld) [#/Vol] 10.53 10*3/uL [facility] Calcium Levelon 12-23-2019 Calcium [Mass/Vol] 9.4 mg/dL 8.4 - 10. 2 mg/dL [facility] Chem 7on 12-23-2019 Anion gap [Moles/Vol] 10 mmol/L 10 - 2 0 mmol/L [facility] Chloride [Moles/Vol] 110 mmol/L High 98 - 10 8 mmol/L [facility] Creatinine [Mass/Vol] 0.66 mg/dL 0.40 - 1.10 [facility] GFR/1.73 sq M predicted among non-blacks MDRD (S/P/Bld) [Vol rate/Area] The eGFR should be used for monitoring renal function only and not for medication dosing. [facility] GFR/1.73 sq M.predicted CKD-EPI (S/P/Bld) [Vol rate/Area] 128 >=60 mL/min/1.73 m2 [facility] Glucose [Mass/Vol] 75 mg/dL 65 - 99 mg/dL [facility] HCO3 [Moles/Vol] 23 mmol/L 21 - 32 mmol/L [facility] Potassium [Moles/Vol] 4.2 mmol/L 3.5 - 5.1 mmol/L [facility] Comment on above: moderate hemolysis, result may be falsely increased. Sodium [Moles/Vol] 139 mmol/L 135 - 145 mmol/L [facility] Urea nitrogen [Mass/Vol] 14 mg/dL 8 - 25 mg/dL [facility] Urea nitrogen/Creatinine [Mass ratio] 21.2 mg/mg High [facility] Magnesium Levelon 12-23-2019 Magnesium [Mass/Vol] 2.4 mg/dL 1.6 - 2 .4 mg/dL [facility] Comment on above: moderate hemolysis, result may be falsely increased. Otheron 12-23-2019 Interpretation and review of laboratory results Normal [facility] Interpretation and review of laboratory results Abnormal [facility] URINALYSISon 12-23-2019 Bacteria Auto Ql (U) None Seen None Se en /hpf [facility] Bilirubin Ql (U) Negative Negative [facility] Clarity Refractometry automated (U) Clear Clear [facility] Color (U) Yellow Colorless, Yellow [facility] Epithelial cells.squamous Auto (Urine sed) [#/Area] <1 [facility] Glucose Auto test strip (U) [Mass/Vol] Negative Negative mg/dL [facility] Hemoglobin Auto test strip Ql (U) Negative Negative [facility] Interpretation and review of laboratory results Abnormal [facility] Ketones (U) [Mass/Vol] Negative Negative mg/dL [facility] Leukocyte esterase Auto test strip Ql (U) Negative Negative [facility] Mucus Auto (Urine sed) [#/Area] Many Abnormal None Seen, Rare /lpf [facility] Nitrite Auto test strip Ql (U) Negative Negative [facility] pH (U) 6.0 [pH] [facility] Protein (U) [Mass/Vol] 30 Abnormal Negative mg/dL [facility] Comment on above: False positive resul ts may occur in urines with large amounts of hemoglobin, pH greater than 8.0, contrast medium, or disinfectants including ammonium compounds. RBC Auto (Urine sed) [#/Area] [facility] Specific gravity (U) [Rel density] 1.028 High [facility] Urobilinogen (U) [Mass/Vol] <2.0 <2.0 mg/dL [facility] WBC Auto (Urine sed) [#/Area] <1 [facility] Microscopic examinat ion is performed on all urinalysis samples and only positive findings are reported. The test for blood on the chemical analytic portion of urinalysis may also be positive due to hemoglobinuria and myoglobinuria and if red blood cells are present they are quantified by microscopic examination. [facility] Urine Pregnancyon 12-23-2019 HCG ( test) Ql (U) Negative Negative [facility] Interpretation and review of laboratory results Normal [facility] CBCon 12-16-2019 Erythrocyte distribution width (RBC) [Ratio] 13.6 % 11.5 - 14.5 % [place], [place] Hematocrit (Bld) [Volume fraction] 39.8 % 37 - 47 % [place] Hemoglobin (Bld) [Mass/Vol] 12.9 g/dL 12 - 16 g/dL [place] MCH (RBC) [Entitic mass] 30.3 pg 27 - 31.3 pg [place] MCHC (RBC) [Mass/Vol] 32.3 % Low 33 - 37 % [place], [place] MCV (RBC) [Entitic vol] 93.9 fL 82 - 100 fL [place] Platelets (Bld) [#/Vol] 355 10*3/uL 130 - 400 K/uL [place] RBC (Bld) [#/Vol] 4.24 10*6/uL [place] WBC (Bld) [#/Vol] 15.9 10*3/uL High 4.5 - 11 K/uL [place] CBC With Platelet No Differe ntialon 12-16-2019 Erythrocyte distribution width (RBC) [Ratio] 13.6 % Normal 11.5-14.5 [facility] Comment on above: Performed By: #### C BCND #### [facility] [address] [place] [address] Hematocrit (Bld) [Volume fraction] 39.8 % Normal 37.0-47.0 [facility] Comment on above: Performed By: #### C BCND #### [facility] [address] [place] [address] Hemoglobin (Bld) [Mass/Vol] 12.9 g/dL Normal 12.0-16.0 [facility] Comment on above: Performed By: #### C BCND #### [facility] [address] [place] [address] MCH (RBC) [Entitic mass] 30.3 pg Normal 27.0-31.3 [facility] Comment on above: Performed By: #### C BCND #### [facility] [address] [place] [address] MCHC (RBC) [Mass/Vol] 32.3 % Low 33.0-37.0 [facility] Comment on above: Performed By: #### C BCND #### [facility] [address] [place] [address] MCV (RBC) [Entitic vol] 93.9 fL Normal 82.0-100.0 [facility] Comment on above: Performed By: #### C BCND #### [facility] [address] [place] [address] Platelets (Bld) [#/Vol] 355 10*3/uL Normal 130-400 [facility] Comment on above: Performed By: #### C BCND #### [facility] [address] [place] [address] RBC (Bld) [#/Vol] 4.24 10*6/uL Normal 4.20-5.40 [facility] Comment on above: Performed By: #### C BCND #### [facility] [address] [place] [address] WBC (Bld) [#/Vol] 15.9 10*3/uL Critically high 4.5-11.0 [facility] Comment on above: Performed By: #### C BCND #### [facility] [address] [place] [address] CT HEAD WO CONTRASTon 2019 CT HEAD [...] Aidan Rosario MD 12/17/19 Final result Normal [facility] Comprehensive Metabolic Pane elyse 12-16-2019 Albumin [Mass/Vol] 5.0 g/dL Critically high 3.5-4.6 M [facility] Comment on above: Performed By: #### C MP #### [facility] [address] [place] [address] ALP [Catalytic activity/Vol] 89 U/L Normal 40-130 [place] Comment on above: Performed By: #### C MP #### [facility] [address] [place] [address] ALT [Catalytic activity/Vol] 9 U/L Normal 0-33 [place] Comment on above: Performed By: #### C MP #### [facility] [address] [place] [address] Anion gap [Moles/Vol] 12 mmol/L Normal 9-15 [place] Comment on above: Performed By: #### C MP #### [facility] [address] [place] [address] AST [Catalytic activity/Vol] 22 U/L Normal 0-35 [place] Comment on above: Performed By: #### C MP #### [facility] [address] [place] [address] Bilirubin [Mass/Vol] 0.6 mg/dL Normal 0.2-0.7 [facility] Comment on above: Performed By: #### C MP #### [facility] [address] [place] [address] Calcium [Mass/Vol] 9.7 mg/dL Normal 8.5-9.9 [place] Comment on above: Performed By: #### C MP #### [facility] [address] [place] [address] Chloride [Moles/Vol] 104 mmol/L Normal 95-107 [place], [place] Comment on above: Performed By: #### C MP #### [facility] [address] [place] [address] CO2 [Moles/Vol] 23 mmol/L Normal 20-31 [place], [place] Comment on above: Performed By: #### C MP #### [facility] [address] [place] [address] Creatinine [Mass/Vol] 0.48 mg/dL Low 0.50-0.90 [place] Comment on above: Performed By: #### C MP #### [facility] [address] [place] [address] GFR/1.73 sq M predicted among blacks MDRD (S/P/Bld) [Vol rate/Area] mL/min/{1.73_m2} Normal >60 [facility] Comment on above: Result Comment: >60 mL/min/1.73m2 EGFR, calc. for ages 18 and older using the MDRD formula (not corrected for weight), is valid for stable renal function. Performed By: #### C MP #### [facility] [address] [place] [address] GFR/1.73 sq M.predicted MDRD (S/P/Bld) [Vol rate/Area] mL/min/{1.73_m2} Normal >60 [facility] Comment on above: Result Comment: >60 mL/min/1.73m2 EGFR, calc. for ages 18 and older using the MDRD formula (not corrected for weight), is valid for stable renal function. Performed By: #### C MP #### [facility] [address] [place] [address] Globulin (S) [Mass/Vol] 3.4 g/dL Normal 2.3-3.5 [place] Comment on above: Performed By: #### C MP #### [facility] [address] [place] [address] Glucose [Mass/Vol] 104 mg/dL Critically high 70-99 [place], [place] Comment on above: Performed By: #### C MP #### [facility] [address] [address] Potassium [Moles/Vol] 3.8 mmol/L Normal 3.4-4.9 [place] Comment on above: Performed By: #### C MP #### [facility] [address] [place] [address] Protein [Mass/Vol] 8.4 g/dL Critically high 6.3-8.0 [place], [place] Comment on above: Performed By: #### C MP #### [facility] [address] [place] [address] Sodium [Moles/Vol] 139 mmol/L Normal 135-144 [place], [place] Comment on above: Performed By: #### C MP #### [facility] [address] [place] [address] Urea nitrogen [Mass/Vol] 15 mg/dL Normal 6-20 [place], [place] Comment on above: Performed By: #### C MP #### [facility] [address] [facility] [address] Albumin [Mass/Vol] 5 g/dL High 3.5 - 4.6 g/dL [place], [place] Bilirubin Ql (U) 0.6 mg/dL 0.2 - 0.7 mg/dL [place] GFR >60.0 >60 [place], [place] Comment on above: >60 mL/min/1.73m2 EG FR, calc. for ages 18 and older using the MDRD formula (not corrected for weight), is valid for stable renal function. GFR Non- >60.0 >60 [place], [place] Comment on above: >60 mL/min/1.73m2 EG FR, calc. for ages 18 and older using the MDRD formula (not corrected for weight), is valid for stable renal function. Otheron 12-16-2019 Interpretation and review of laboratory results Abnormal [place], [place] , Urineon 0 Beta HCG ( test) Ql (U) Negative Detects HCG level >20 MIU/mL [place], [place] UR HCG Qualitativeon 020 Beta HCG ( test) Ql (U) Negative Normal Detects HC [facility] Comment on above: Performed By: #### U HCG #### [facility] [address] [facility] [address] Urinalysis, reflex to cultur reta 12-16-2019 Bilirubin Ql (U) Negative Normal Negative [facility] Comment on above: Performed By: #### U AR #### [facility] [address] [facility] [address] Clarity (U) Clear Normal Clear [facility] Comment on above: Performed By: #### U AR #### [facility] [address] [facility] [address] Color (U) Yellow Normal Straw/Person [facility] Comment on above: Performed By: #### U AR #### [facility] [address] [facility] [address] Glucose Ql (U) Negative Normal Negative [facility] Comment on above: Performed By: #### U AR #### [facility] [address] [place] [address] Hemoglobin Ql (U) Negative Normal Negative [facility] Comment on above: Performed By: #### U AR #### [facility] [address] [place] [address] Ketones Ql (U) 40 mg/dL Abnormal Negative [facility] Comment on above: Performed By: #### U AR #### [facility] [address] [place] [address] Leukocyte esterase Test strip Ql (U) Negative Normal Negative [facility] Comment on above: Performed By: #### U AR #### [facility] [address] [place] [address] Nitrite Ql (U) Negative Normal Negative [facility] Comment on above: Performed By: #### U AR #### [facility] [address] [place] [address] pH (U) 7.0 [pH] Normal 5.0-9.0 [facility] Comment on above: Performed By: #### U AR #### [facility] [address] [place] [address] Protein Ql (U) Negative Normal Negative [facility] Comment on above: Performed By: #### U AR #### [facility] [address] [place] [address] Specific gravity (U) [Rel density] 1.025 Normal 1.005-1.03 [facility] Comment on above: Performed By: #### U AR #### [facility] [address] [place] [address] Urine Reflexed to Culture Not Indicated Normal [facility] Comment on above: Performed By: #### U AR #### [facility] [address] [place] [address] Urobilinogen Qn (U) 0.2 {Polina'U}/dL Normal < 2.0 [facility] Comment on above: Performed By: #### U AR #### [facility] [address] [facility] Urine Reflex to Cultureon Bilirubin Urine Negative [facility] [place] Blood, Urine Negative Negative [place], [place] Clarity, UA Clear Clear [place], [place] Color, UA Yellow Straw/Yellow [place] Glucose, Ur Negative Negative mg/dL [place], [place] Ketones Ql (U) 40 mg/dL Abnormal Negative [place], [place] Leukocyte esterase Test strip Ql (U) Negative Negative [place] Nitrite, Urine Negative Negative [place] pH, UA 7.0 [place], [place] Protein (U) [Mass/Vol] Negative Negative mg/dL [place] Specific [place], UA 1.025 [place], [place] Urine Reflex to Culture Not Indicated [place] Urobilinogen, Urine 0.2 <2.0 E.U./dL [place], [place] POC H. Pylori Teston [address] [facility] [address] Number [id number] [facility] POC H. Pylori Negative Negative [facility] POC , Urineon 02-24 HCG ( test) Ql (U) Negative Negative [facility] [address] [facility] Interpretation and review of laboratory results Normal [facility] Specific gravity (U) [Rel density] [facility] NM Hepatobiliary With Ejecti on Fractionon 02-11-2019 Cholesterol [Mass/Vol] 1. No evidence of acute cholecystitis. 2. Gallbladder ejection fraction is decreased, suggesting chronic cholecystitis or biliary dyskinesia. 3. Mild enterogastric reflux. [facility]/trn Workstation ID: [id number] [facility] EXAMINATION: HEPATOBILIARY SCAN WITH GALLBLADDER EJECTION FRACTION [...] this technique. There is mild enterogastric reflux. [facility] Interface, Rad In Fu ji Speechq - [...] Mild enterogastric reflux. [facility]/trn Workstation ID: [id number] [facility] Bilirubin, Directon 01-29-20 19 Bilirubin.conjugated [Mass/Vol] mg/dL 0 - 0.4 mg/dL [facility] Interpretation and review of laboratory results Normal [facility] CBC WITH AUTO DIFFERENTIALon 01-28-2019 Basophils (Bld) [#/Vol] 0.08 10*3/uL [facility] Basophils/100 WBC (Bld) 0.6 % [facility] Eosinophils (Bld) [#/Vol] 0.43 10*3/uL [facility] Eosinophils/100 WBC (Bld) 3.5 % [facility] Erythrocyte distribution width (RBC) [Entitic vol] 13.3 % 11.6 - 14.8 % [facility] Hematocrit (Bld) [Volume fraction] 38.0 % 36 - 46 % [facility] Hemoglobin (Bld) [Mass/Vol] 12.5 g/dL 12 - 16 g/dL [facility] Immature granulocytes (Bld) [#/Vol] 0.06 10*3/uL [facility] Immature granulocytes/100 WBC (Bld) 0.50 % [facility] Comment on above: The IG parameter is the percentage of metamyelocytes, myelocytes, and promyelocytes. Interpretation and review of laboratory results Abnormal [facility] Lymphocytes (Bld) [#/Vol] 5.24 10*3/uL High [facility] Lymphocytes/100 WBC (Bld) 42.3 % [facility] MCH (RBC) [Entitic mass] 29.3 pg 25 - 35 pg [facility] MCHC (RBC) [Mass/Vol] 32.9 g/dL 31 - 37 g/dL [facility] MCV (RBC) [Entitic vol] 89.0 fL 78 - 102 fL [facility] Monocytes (Bld) [#/Vol] 1.22 10*3/uL [facility] Monocytes/100 WBC (Bld) 9.8 % [facility] Neutrophils (Bld) [#/Vol] 5.36 10*3/uL [facility] Neutrophils/100 WBC (Bld) 43.3 % [facility] Nucleated RBC (Bld) [#/Vol] 0.00 10*3/uL [facility] Nucleated RBC/100 WBC (Bld) [Ratio] 0.0 % [facility] Platelet mean volume (Bld) [Entitic vol] 11.0 fL 9 - 15.5 fL [facility] Platelets (Bld) [#/Vol] 397 10*3/uL [facility] RBC (Bld) [#/Vol] 4.27 10*6/uL [facility] WBC (Bld) [#/Vol] 12.39 10*3/uL [facility] CT Abdomen Pelvis With IV Co [...] air. No suspicious osteolytic or osteoblastic lesion. [facility], Rad In Fu ji Speechq - 01/28/2019 [...] amount of pelvic free fluid, likely physiologic. [facility] Workstation ID: [id number] [facility] 1. Periportal edema and gallbladder wall edema. Findings remain nonspecific. This finding can be seen in the setting of aggressive volume resuscitation, hypotony anemic state tend underlying hepatitis. No focal hepatic lesion. 2. No renal, ureteral or bladder stone. 3. Normal appendix. 4. Small amount of pelvic free fluid, likely physiologic. [facility] Workstation ID: [id number] [facility] Comprehensive Metabolic Pane elyse 01-28-2019 Albumin [Mass/Vol] 4.2 g/dL 3.2 - 4.5 g/dL [facility] ALP [Catalytic activity/Vol] 84 U/L 40 - 140 U/L [facility] ALT [Catalytic activity/Vol] 20 U/L 14 - 65 U/L [facility] Anion gap [Moles/Vol] 12 mmol/L 10 - 2 0 mmol/L [facility] AST [Catalytic activity/Vol] 11 U/L 0 - 45 U/L [facility] Bilirubin [Mass/Vol] 0.3 mg/dL 0 - 1.3 mg/dL [facility] Calcium [Mass/Vol] 9.3 mg/dL 8.4 - 10. 2 mg/dL [facility] Chloride [Moles/Vol] 111 mmol/L High 98 - 10 8 mmol/L [facility] Creatinine [Mass/Vol] 0.58 mg/dL 0.5 - 1 mg/dL [facility] GFR/1.73 sq M predicted among non-blacks MDRD (S/P/Bld) [Vol rate/Area] The eGFR should be used for monitoring renal function only and not for medication dosing. [facility] GFR/1.73 sq M.predicted CKD-EPI (S/P/Bld) [Vol rate/Area] 135 >=60 mL/min/1.73 m2 [facility] Glucose [Mass/Vol] 88 mg/dL 65 - 99 mg/dL [facility] HCO3 [Moles/Vol] 22 mmol/L 21 - 32 mmol/L [facility] Interpretation and review of laboratory results Abnormal [facility] Potassium [Moles/Vol] 3.7 mmol/L 3.5 - 5.1 mmol/L [facility] Protein [Mass/Vol] 7.6 g/dL 6 - 8 g/dL [facility] Sodium [Moles/Vol] 141 mmol/L 135 - 145 mmol/L [facility] Urea nitrogen [Mass/Vol] 16 mg/dL 8 - 25 mg/dL [facility] Urea nitrogen/Creatinine [Mass ratio] 27.6 mg/mg High [facility] Lipaseon 01-28-2019 Interpretation and review of laboratory results Normal [facility] Lipase [Catalytic activity/Vol] 105 U/L 73 - 393 U/L [facility] PT/INRon 01-28-2019 INR Coag (PPP) [Relative time] 1.1 {INR} [facility] Interpretation and review of laboratory results Normal [facility] PT Coag (PPP) [Time] 13.8 s [facility] During the induction phase of oral anticoagulation, the INR may not reflect the anticoagulation status of the patient. Therapeutic ranges for INR's are: Most clinical situations: INR 2.0-3.0 Mechanical Prosthetic Valve: INR 2.5-3.5 Critical: INR >5.0 [facility] TROPONINon 01-28-2019 Troponin I.cardiac [Mass/Vol] ng/mL <=45 ng/L [facility] Troponin I.cardiac [Mass/Vol] Normal [facility] XR Chest 1 Viewon 01-28-2019 No acute cardiopulmo nary abnormality. [facility] Work[facility] ID: [id number] [facility] Interface, Rad In Fu ji Speechq - [...] is seen. IMPRESSION: No acute cardiopulmonary abnormality. [facility] Workstation ID: [id number] [facility] EXAMINATION: XR CHES T PA/AP HISTORY: ORDERING [...] effusion. No acute osseous abnormality is seen. [facility] URINALYSISon 01-27-2019 Bacteria Auto Ql (U) Few Abnormal None Se en /hpf [facility] Bilirubin Ql (U) Negative Negative [facility] th Clarity Refractometry automated (U) Cloudy Abnormal Clear [facility] Color (U) Yellow Colorless, Yellow [facility] Epithelial cells.squamous Auto (Urine sed) [#/Area] 4 [facility] Glucose Auto test strip (U) [Mass/Vol] Negative Negative mg/dL [facility] Hemoglobin Auto test strip Ql (U) Small Abnormal Negative [facility] Interpretation and review of laboratory results Abnormal [facility] Ketones (U) [Mass/Vol] Negative Negative mg/dL [facility] Leukocyte esterase Auto test strip Ql (U) Negative Negative [facility] Mucus Auto (Urine sed) [#/Area] Many Abnormal None Seen, Rare /lpf [facility] Nitrite Auto test strip Ql (U) Positive Abnormal Negative [facility] pH (U) 5.0 [pH] [facility] Protein (U) [Mass/Vol] Negative Negative mg/dL [facility] RBC Auto (Urine sed) [#/Area] 9 High [facility] Specific gravity (U) [Rel density] 1.024 [facility] Urobilinogen (U) [Mass/Vol] <2.0 <2.0 mg/dL [facility] WBC Auto (Urine sed) [#/Area] 7 High [facility] Microscopic examinat ion is performed on all urinalysis samples and only positive findings are reported. The test for blood on the chemical analytic portion of urinalysis may also be positive due to hemoglobinuria and myoglobinuria and if red blood cells are present they are quantified by microscopic examination. [facility] Urine Pregnancyon 01-27-2019 HCG ( test) Ql (U) Negative Negative [facility] Interpretation and review of laboratory results Normal [facility] Basic Metabolic Panelon 10-22 Anion gap [Moles/Vol] 10 mmol/L 10 - 2 0 mmol/L [facility] Calcium [Mass/Vol] 8.6 mg/dL 8.4 - 10. 2 mg/dL [facility] Chloride [Moles/Vol] 112 mmol/L High 98 - 10 8 mmol/L [facility] Creatinine [Mass/Vol] 0.44 mg/dL Low 0.5 - 1 mg/dL [facility] GFR/1.73 sq M predicted among non-blacks MDRD (S/P/Bld) [Vol rate/Area] The eGFR should be used for monitoring renal function only and not for medication dosing. [facility] GFR/1.73 sq M.predicted CKD-EPI (S/P/Bld) [Vol rate/Area] 148 >=60 mL/min/1.73 m2 [facility] Glucose [Mass/Vol] 99 mg/dL 65 - 99 mg/dL [facility] HCO3 [Moles/Vol] 23 mmol/L 21 - 32 mmol/L [facility] Interpretation and review of laboratory results Abnormal [facility] Potassium [Moles/Vol] 3.9 mmol/L 3.5 - 5.1 mmol/L [facility] Sodium [Moles/Vol] 141 mmol/L 135 - 145 mmol/L [facility] Urea nitrogen [Mass/Vol] 7 mg/dL Low 8 - 25 mg/dL [facility] Urea nitrogen/Creatinine [Mass ratio] 15.9 mg/mg [facility] CBC WITH AUTO DIFFERENTIALon 11-09-2018 Basophils (Bld) [#/Vol] 0.07 10*3/uL [facility] Basophils/100 WBC (Bld) 0.6 % [facility] Eosinophils (Bld) [#/Vol] 0.50 10*3/uL [facility] Eosinophils/100 WBC (Bld) 4.3 % [facility] Erythrocyte distribution width (RBC) [Entitic vol] 15.7 % High 11.6 - 14.8 % [facility] Hematocrit (Bld) [Volume fraction] 34.2 % Low 36 - 46 % [facility] Hemoglobin (Bld) [Mass/Vol] 11.2 g/dL Low 12 - 16 g/dL [facility] Immature granulocytes (Bld) [#/Vol] 0.05 10*3/uL [facility] Immature granulocytes/100 WBC (Bld) 0.40 % [facility] Comment on above: The IG parameter is the percentage of metamyelocytes, myelocytes, and promyelocytes. Interpretation and review of laboratory results Abnormal [facility] Lymphocytes (Bld) [#/Vol] 4.75 10*3/uL High [facility] Lymphocytes/100 WBC (Bld) 41.3 % [facility] MCH (RBC) [Entitic mass] 30.0 pg 25 - 35 pg [facility] MCHC (RBC) [Mass/Vol] 32.7 g/dL 31 - 37 g/dL [facility] MCV (RBC) [Entitic vol] 91.7 fL 78 - 102 fL [facility] Monocytes (Bld) [#/Vol] 1.22 10*3/uL High [facility] Monocytes/100 WBC (Bld) 10.6 % [facility] Neutrophils (Bld) [#/Vol] 4.92 10*3/uL [facility] Neutrophils/100 WBC (Bld) 42.8 % [facility] Nucleated RBC (Bld) [#/Vol] 0.00 10*3/uL [facility] Nucleated RBC/100 WBC (Bld) [Ratio] 0.0 % [facility] Platelet mean volume (Bld) [Entitic vol] 11.1 fL 9 - 15.5 fL [facility] Platelets (Bld) [#/Vol] 453 10*3/uL High [facility] RBC (Bld) [#/Vol] 3.73 10*6/uL Low [facility] WBC (Bld) [#/Vol] 11.51 10*3/uL [facility] CBC WITH AUTO DIFFERENTIALon 11-08-2018 Basophils (Bld) [#/Vol] 0.06 10*3/uL [facility] Basophils/100 WBC (Bld) 0.4 % [facility] Eosinophils (Bld) [#/Vol] 0.24 10*3/uL [facility] Eosinophils/100 WBC (Bld) 1.8 % [facility] Erythrocyte distribution width (RBC) [Entitic vol] 15.8 % High 11.6 - 14.8 % [facility] Hematocrit (Bld) [Volume fraction] 35.7 % Low 36 - 46 % [facility] Hemoglobin (Bld) [Mass/Vol] 11.8 g/dL Low 12 - 16 g/dL [facility] Immature granulocytes (Bld) [#/Vol] 0.05 10*3/uL [facility] Immature granulocytes/100 WBC (Bld) 0.40 % [facility] Comment on above: The IG parameter is the percentage of metamyelocytes, myelocytes, and promyelocytes. Interpretation and review of laboratory results Abnormal [facility] Lymphocytes (Bld) [#/Vol] 4.45 10*3/uL High [facility] Lymphocytes/100 WBC (Bld) 33.1 % [facility] MCH (RBC) [Entitic mass] 29.9 pg 25 - 35 pg [facility] MCHC (RBC) [Mass/Vol] 33.1 g/dL 31 - 37 g/dL [facility] MCV (RBC) [Entitic vol] 90.6 fL 78 - 102 fL [facility] Monocytes (Bld) [#/Vol] 1.51 10*3/uL High [facility] Monocytes/100 WBC (Bld) 11.2 % [facility] Neutrophils (Bld) [#/Vol] 7.15 10*3/uL High [facility] Neutrophils/100 WBC (Bld) 53.1 % [facility] Nucleated RBC (Bld) [#/Vol] 0.00 10*3/uL [facility] Nucleated RBC/100 WBC (Bld) [Ratio] 0.0 % [facility] Platelet mean volume (Bld) [Entitic vol] 12.2 fL 9 - 15.5 fL [facility] Platelets (Bld) [#/Vol] 441 10*3/uL High [facility] RBC (Bld) [#/Vol] 3.94 10*6/uL Low [facility] WBC (Bld) [#/Vol] 13.46 10*3/uL [facility] CT Abdomen Pelvis With IV Co ntrast Onlyon 11-08-2018 1. Nczs-jq-mpkhjbny edematous changes reflective of pyelonephritis of the mid and inferior aspect of the right kidney. 2. No evidence of hydronephrosis or urinary tract stone. Urinary bladder incidentally is somewhat overdistended at the time of the study. 3. New qnnd-pu-ikezmjqw ascites in the pelvis which has developed fairly rapidly since the prior study. 4. Ydjo-jc-koqwckzr constipation. 5. Patient is status post splenectomy. Workstation ID: [id number] [facility], Rad In Fu ji Speechq - 11/08/2018 [...] abdominal wall hernia is noted. IMPRESSION: 1. Aogi-zq-utafgvwc edematous changes reflective of pyelonephritis of the mid and inferior aspect of the right kidney. 2. No evidence of hydronephrosis or urinary tract stone. Urinary bladder incidentally is somewhat overdistended at the time of the study. 3. New wetc-dc-twpeplnd ascites in the pelvis which has developed fairly rapidly since the prior study. 4. Xwxl-ta-zyblgglw constipation. 5. Patient is status post splenectomy. Workstation ID: [id number] [facility] EXAMINATION: CT ABDO MEN PELVIS WITH IV [...] No anterior abdominal wall hernia is noted. [facility] Urine Aerobic Cultureon 10-22 Bacteria identified Aer cx Nom (Unsp spec) No Growth (<1,000 CFU/mL) [facility] CBC WITH AUTO DIFFERENTIALon 11-07-2018 Basophils (Bld) [#/Vol] 0.06 10*3/uL [facility] Basophils/100 WBC (Bld) 0.3 % [facility] Eosinophils (Bld) [#/Vol] 0.21 10*3/uL [facility] Eosinophils/100 WBC (Bld) 1.0 % [facility] Erythrocyte distribution width (RBC) [Entitic vol] 15.9 % High 11.6 - 14.8 % [facility] Hematocrit (Bld) [Volume fraction] 37.5 % 36 - 46 % [facility] Hemoglobin (Bld) [Mass/Vol] 12.1 g/dL 12 - 16 g/dL [facility] Immature granulocytes (Bld) [#/Vol] 0.08 10*3/uL [facility] Immature granulocytes/100 WBC (Bld) 0.40 % [facility] Comment on above: The IG parameter is the percentage of metamyelocytes, myelocytes, and promyelocytes. Interpretation and review of laboratory results Abnormal [facility] Lymphocytes (Bld) [#/Vol] 5.29 10*3/uL High [facility] Lymphocytes/100 WBC (Bld) 25.2 % [facility] MCH (RBC) [Entitic mass] 29.7 pg 25 - 35 pg [facility] MCHC (RBC) [Mass/Vol] 32.3 g/dL 31 - 37 g/dL [facility] MCV (RBC) [Entitic vol] 92.1 fL 78 - 102 fL [facility] Monocytes (Bld) [#/Vol] 2.12 10*3/uL High [facility] Monocytes/100 WBC (Bld) 10.1 % [facility] Neutrophils (Bld) [#/Vol] 13.26 10*3/uL High [facility] Neutrophils/100 WBC (Bld) 63.0 % [facility] Comment on above: Peripheral smear rev iewed manually Nucleated RBC (Bld) [#/Vol] 0.00 10*3/uL [facility] Nucleated RBC/100 WBC (Bld) [Ratio] 0.0 % [facility] Platelet mean volume (Bld) [Entitic vol] 11.3 fL 9 - 15.5 fL [facility] Platelets (Bld) [#/Vol] 316 10*3/uL [facility] RBC (Bld) [#/Vol] 4.07 10*6/uL Low [facility] WBC (Bld) [#/Vol] 21.02 10*3/uL High [facility] MORPHOLOGYon 11-07-2018 Radha cells LM Ql (Bld) Few [facility] Basic Metabolic Panelon 10-22 Anion gap [Moles/Vol] 11 mmol/L 10 - 2 0 mmol/L [facility] Calcium [Mass/Vol] 8.2 mg/dL Low 8.4 - 10. 2 mg/dL [facility] Chloride [Moles/Vol] 114 mmol/L High 98 - 10 8 mmol/L [facility] Creatinine [Mass/Vol] 0.51 mg/dL 0.5 - 1 mg/dL [facility] GFR/1.73 sq M predicted among non-blacks MDRD (S/P/Bld) [Vol rate/Area] The eGFR should be used for monitoring renal function only and not for medication dosing. [facility] GFR/1.73 sq M.predicted CKD-EPI (S/P/Bld) [Vol rate/Area] 141 >=60 mL/min/1.73 m2 [facility] Glucose [Mass/Vol] 96 mg/dL 65 - 99 mg/dL [facility] HCO3 [Moles/Vol] 20 mmol/L Low 21 - 32 mmol/L [facility] Interpretation and review of laboratory results Abnormal [facility] Potassium [Moles/Vol] 3.6 mmol/L 3.5 - 5.1 mmol/L [facility] Sodium [Moles/Vol] 141 mmol/L 135 - 145 mmol/L [facility] Urea nitrogen [Mass/Vol] 5 mg/dL Low 8 - 25 mg/dL [facility] Urea nitrogen/Creatinine [Mass ratio] 9.8 mg/mg Low [facility] CBC WITH AUTO DIFFERENTIALon 11-06-2018 Erythrocyte distribution width (RBC) [Entitic vol] 15.6 % High 11.6 - 14.8 % [facility] Hematocrit (Bld) [Volume fraction] 34.7 % Low 36 - 46 % [facility] Hemoglobin (Bld) [Mass/Vol] 11.2 g/dL Low 12 - 16 g/dL [facility] MCH (RBC) [Entitic mass] 29.7 pg 25 - 35 pg [facility] MCHC (RBC) [Mass/Vol] 32.3 g/dL 31 - 37 g/dL [facility] MCV (RBC) [Entitic vol] 92.0 fL 78 - 102 fL [facility] Nucleated RBC (Bld) [#/Vol] 0.00 10*3/uL [facility] Nucleated RBC/100 WBC (Bld) [Ratio] 0.0 % [facility] Platelet mean volume (Bld) [Entitic vol] 10.8 fL 9 - 15.5 fL [facility] Platelets (Bld) [#/Vol] 347 10*3/uL [facility] RBC (Bld) [#/Vol] 3.77 10*6/uL Low [facility] WBC (Bld) [#/Vol] 21.19 10*3/uL High [facility] Basophils (Bld) [#/Vol] 0.09 10*3/uL [facility] Basophils/100 WBC (Bld) 0.4 % [facility] Eosinophils (Bld) [#/Vol] 0.13 10*3/uL [facility] Eosinophils/100 WBC (Bld) 0.6 % [facility] Erythrocyte distribution width (RBC) [Entitic vol] 15.4 % High 11.6 - 14.8 % [facility] Hematocrit (Bld) [Volume fraction] 34.6 % Low 36 - 46 % [facility] Hemoglobin (Bld) [Mass/Vol] 11.2 g/dL Low 12 - 16 g/dL [facility] Immature granulocytes (Bld) [#/Vol] 0.13 10*3/uL [facility] Immature granulocytes/100 WBC (Bld) 0.60 % [facility] Comment on above: The IG parameter is the percentage of metamyelocytes, myelocytes, and promyelocytes. Interpretation and review of laboratory results Abnormal [facility] Lymphocytes (Bld) [#/Vol] 5.91 10*3/uL High [facility] Lymphocytes/100 WBC (Bld) 25.8 % [facility] MCH (RBC) [Entitic mass] 29.9 pg 25 - 35 pg [facility] MCHC (RBC) [Mass/Vol] 32.4 g/dL 31 - 37 g/dL [facility] MCV (RBC) [Entitic vol] 92.5 fL 78 - 102 fL [facility] Monocytes (Bld) [#/Vol] 2.60 10*3/uL High [facility] Monocytes/100 WBC (Bld) 11.4 % [facility] Neutrophils (Bld) [#/Vol] 14.04 10*3/uL High [facility] Neutrophils/100 WBC (Bld) 61.2 % [facility] Comment on above: Peripheral smear rev iewed manually Nucleated RBC (Bld) [#/Vol] 0.00 10*3/uL [facility] Nucleated RBC/100 WBC (Bld) [Ratio] 0.0 % [facility] Platelet mean volume (Bld) [Entitic vol] 11.5 fL 9 - 15.5 fL [facility] Platelets (Bld) [#/Vol] 330 10*3/uL [facility] RBC (Bld) [#/Vol] 3.74 10*6/uL Low [facility] WBC (Bld) [#/Vol] 22.90 10*3/uL [facility] Abdomen Pelvis Without Co ntraston 11-06-2018 Interface, Rad In Fu ji [facility] - 11/06/2018 2:37 AM EDT CLINICAL HISTORY: [...] ureterolithiasis. 3. Normal-appearing appendix. KKV/vrs Workstation ID: [id number] [facility] CLINICAL HISTORY: Ri ght CVA tenderness, urinary [...] Visualized osseous structures demonstrate no gross abnormalities. [facility] 1. There is some perinephric fat stranding involving the right kidney which could be a nonspecific finding, however underlying pyelonephritis would be a consideration. 2. No nephro- or ureterolithiasis. 3. Normal-appearing appendix. [employer] Workstation ID: [id number] [facility] Hemoglobin A1con 11-06-2018 Average glucose Estimated from glycated hemoglobin mass conc (Bld) 94 mg/dL 68 - 114 mg/dL [facility] HbA1c (Bld) [Mass fraction] 4.9 % 4 - 5.6 % [facility] Comment on above: Normal: 4.0% - 5.6% Increased risk for diabetes: 5.7% - 6.4% Diabetes: >= 6.5% Pediatrics: No established reference range Estimated average glucose: 68-114 mg/dL Please note: Reference intervals were changed as of 07/31/2018 to align with current [employer] guidelines Interpretation and review of laboratory results Normal [facility] MORPHOLOGYon 11-06-2018 Anisocytosis Ql (Bld) 1+ [facility] Collins cells LM Ql (Bld) Rare [facility] Anisocytosis Ql (Bld) 1+ [facility] Radha cells LM Ql (Bld) Rare [facility] Singh-Steen bodies LM Ql (Bld) Rare [facility] Magnesium Levelon 11-06-2018 Interpretation and review of laboratory results Normal [facility] Magnesium [Mass/Vol] 2.1 mg/dL 1.6 - 2 .4 mg/dL [facility] Manual Differentialon 2018 Band form neutrophils/100 WBC (Bld) 0.0 % [facility] Basophils (Bld) [#/Vol] 0.00 10*3/uL [facility] Basophils/100 WBC (Bld) 0.0 % [facility] Blasts Manual cnt (Bld) [#/Vol] 0.00 [facility] Blasts/100 WBC (Bld) 0.0 % [facility] Eosinophils (Bld) [#/Vol] 0.38 10*3/uL [facility] Eosinophils/100 WBC (Bld) 1.8 % [facility] Lymphocytes (Bld) [#/Vol] 7.25 10*3/uL High [facility] Lymphocytes/100 WBC (Bld) 34.2 % [facility] Metamyelocytes/100 WBC (Bld) 0.0 % [facility] Monocytes (Bld) [#/Vol] 4.20 10*3/uL High [facility] Monocytes/100 WBC (Bld) 19.8 % [facility] Myelocytes/100 WBC (Bld) 0.0 % [facility] Neutrophils (Bld) [#/Vol] 9.34 10*3/uL High [facility] Neutrophils/100 WBC (Bld) 44.1 % [facility] Other cells Manual cnt (Bld) [#/Vol] 0.00 [facility] Other cells/100 WBC Manual cnt (Bld) 0.0 % [facility] Plasma cells (Bld) [#/Vol] 0.00 10*3/uL [facility] Plasma cells/100 WBC (Bld) 0.0 % [facility] Promyelocytes/100 WBC (Bld) 0.0 % [facility] Variant lymphocytes/100 WBC (Bld) 0.0 % [facility] Otheron 11-06-2018 Interpretation and review of laboratory results Abnormal [facility] hCG Urine, Qualitativeon HCG ( test) Ql (U) Negative Negative [facility] Interpretation and review of laboratory results Normal [facility] C Urineon 11-05-2018 C Urine Final Report: [...] Comment on above: Performed By: #### [id number] #### DAYANNA Microbiology Subsection [address] [place] [address] CBC WITH AUTO DIFFERENTIALon 11-05-2018 Basophils (Bld) [#/Vol] 0.09 10*3/uL [facility] Basophils/100 WBC (Bld) 0.3 % [facility] Eosinophils (Bld) [#/Vol] 0.01 10*3/uL [facility] Eosinophils/100 WBC (Bld) 0.0 % [facility] Erythrocyte distribution width (RBC) [Entitic vol] 15.1 % High 11.6 - 14.8 % [facility] Hematocrit (Bld) [Volume fraction] 41.8 % 36 - 46 % [facility] Hemoglobin (Bld) [Mass/Vol] 13.7 g/dL 12 - 16 g/dL [facility] Immature granulocytes (Bld) [#/Vol] 0.15 10*3/uL [facility] Immature granulocytes/100 WBC (Bld) 0.50 % [facility] Comment on above: The IG parameter is the percentage of metamyelocytes, myelocytes, and promyelocytes. Interpretation and review of laboratory results Abnormal [facility] Lymphocytes (Bld) [#/Vol] 3.13 10*3/uL [facility] Lymphocytes/100 WBC (Bld) 11.1 % [facility] MCH (RBC) [Entitic mass] 29.8 pg 25 - 35 pg [facility] MCHC (RBC) [Mass/Vol] 32.8 g/dL 31 - 37 g/dL [facility] MCV (RBC) [Entitic vol] 90.9 fL 78 - 102 fL [facility] Monocytes (Bld) [#/Vol] 2.97 10*3/uL High [facility] Monocytes/100 WBC (Bld) 10.6 % [facility] Neutrophils (Bld) [#/Vol] 21.75 10*3/uL High [facility] Neutrophils/100 WBC (Bld) 77.5 % [facility] Comment on above: Peripheral smear rev iewed manually Nucleated RBC (Bld) [#/Vol] 0.00 10*3/uL [facility] Nucleated RBC/100 WBC (Bld) [Ratio] 0.0 % [facility] Platelet mean volume (Bld) [Entitic vol] 11.4 fL 9 - 15.5 fL [facility] Platelets (Bld) [#/Vol] 373 10*3/uL [facility] RBC (Bld) [#/Vol] 4.60 10*6/uL [facility] WBC (Bld) [#/Vol] 28.10 10*3/uL High [facility] Comprehensive Metabolic Pane elyse 11-05-2018 Albumin [Mass/Vol] 3.7 g/dL 3.2 - 4.5 g/dL [facility] ALP [Catalytic activity/Vol] 89 U/L 40 - 140 U/L [facility] ALT [Catalytic activity/Vol] 19 U/L 14 - 65 U/L [facility] Anion gap [Moles/Vol] 13 mmol/L 10 - 2 0 mmol/L [facility] AST [Catalytic activity/Vol] 8 U/L 0 - 45 U/L [facility] Bilirubin [Mass/Vol] 0.5 mg/dL 0 - 1.3 mg/dL [facility] Calcium [Mass/Vol] 9.1 mg/dL 8.4 - 10. 2 mg/dL [facility] Chloride [Moles/Vol] 106 mmol/L 98 - 10 8 mmol/L [facility] Creatinine [Mass/Vol] 0.79 mg/dL 0.5 - 1 mg/dL [facility] GFR/1.73 sq M predicted among non-blacks MDRD (S/P/Bld) [Vol rate/Area] The eGFR should be used for monitoring renal function only and not for medication dosing. [facility] GFR/1.73 sq M.predicted CKD-EPI (S/P/Bld) [Vol rate/Area] 110 >=60 mL/min/1.73 m2 [facility] Glucose [Mass/Vol] 113 mg/dL High 65 - 99 mg/dL [facility] HCO3 [Moles/Vol] 20 mmol/L Low 21 - 32 mmol/L [facility] Interpretation and review of laboratory results Abnormal [facility] Potassium [Moles/Vol] 3.4 mmol/L Low 3.5 - 5.1 mmol/L [facility] Protein [Mass/Vol] 8.1 g/dL High 6 - 8 g/dL [facility] Sodium [Moles/Vol] 136 mmol/L 135 - 145 mmol/L [facility] Urea nitrogen [Mass/Vol] 7 mg/dL Low 8 - 25 mg/dL [facility] Urea nitrogen/Creatinine [Mass ratio] 8.9 mg/mg Low [facility] Lactic Acid, Plasmaon 2018 Interpretation and review of laboratory results Normal [facility] Lactate [Moles/Vol] 1.9 mmol/L 0.6 - 2 mmol/L [facility] MORPHOLOGYon 11-05-2018 RBC morphology finding Nom (Bld) Normal [facility] POC Venous Blood Gas Panel-P ulmon 11-05-2018 Base excess Calc (BldV) [Moles/Vol] -1.7 mmol/L [facility] Breath rate setting Ventilator synchronized intermittent mandatory 0 [facility] Calcium.ionized [Mass/Vol] 4.8 mg/dL 4.5 - 5.3 mg/dL [facility] Carboxyhemoglobin (BldA) [Mass fraction] 1.9 High [facility] Comment on above: Reference Ranges: [facility] Non-smokers: <1.5% Smokers: 1.5-5.0% Heavy Smokers: 5.0-9.0% Chloride [Moles/Vol] 105 mmol/L 98 - 10 8 mmol/L [facility] CO2 (BldV) [Partial pressure] 35.7 mm[Hg] Low [facility] Glucose [Mass/Vol] 117 mg/dL High 65 - 99 mg/dL [facility] HCO3 (Bld) [Moles/Vol] 22.5 mmol/L Low 24 - 28 mmol/L [facility] Hematocrit (BldA) [Volume fraction] 44.5 % 36 - 46 % [facility] Hemoglobin (Bld) [Mass/Vol] 14.5 g/dL 12 - 16 g/dL [facility] Inhaled oxygen concentration 21 % [facility] Interpretation and review of laboratory results Abnormal [facility] Lactate [Moles/Vol] 1.7 mmol/L 0.6 - 2 mmol/L [facility] Methemoglobin (BldA) [Mass fraction] 1.2 % 0 - 2 % [facility] Oxygen (BldV) [Partial pressure] 33 mm[Hg] [facility] Oxygen saturation in Venous blood 65.8 % [facility] Oxyhemoglobin (BldA) [Mass fraction] 63.8 % Low 94 - 98 % [facility] pH (BldV) 7.41 [pH] [facility] Potassium [Moles/Vol] 3.4 mmol/L Low 3.5 - 5.1 mmol/L [facility] Sodium [Moles/Vol] 137 mmol/L 135 - 145 mmol/L [facility] Specimen source Nom (Unsp spec) Not specified [facility] Tidal volume setting Ventilator 0 [facility] URINALYSISon 11-05-2018 Bacteria Auto Ql (U) Rare Abnormal None Se en /hpf [facility] Bilirubin Ql (U) Negative Negative [facility] th Clarity Refractometry automated (U) Hazy Abnormal Clear [facility] Color (U) Yellow Colorless, Yellow [facility] Epithelial cells.squamous Auto (Urine sed) [#/Area] 7 High [facility] Glucose Auto test strip (U) [Mass/Vol] Negative Negative mg/dL [facility] Hemoglobin Auto test strip Ql (U) Negative Negative [facility] Interpretation and review of laboratory results Abnormal [facility] Ketones (U) [Mass/Vol] 20 Abnormal Negative mg/dL [facility] Leukocyte esterase Auto test strip Ql (U) Trace Abnormal Negative [facility] Mucus Auto (Urine sed) [#/Area] Rare None Seen, Rare /lpf [facility] Nitrite Auto test strip Ql (U) Negative Negative [facility] pH (U) 5.0 [pH] [facility] Protein (U) [Mass/Vol] 30 Abnormal Negative mg/dL [facility] Comment on above: False positive resul ts may occur in urines with large amounts of hemoglobin, pH greater than 8.0, contrast medium, or disinfectants including ammonium compounds. RBC Auto (Urine sed) [#/Area] 6 High [facility] Specific gravity (U) [Rel density] 1.018 [facility] Transitional cells Computer assisted (U) [#/Area] <1 [facility] Urobilinogen (U) [Mass/Vol] >=4.0 Abnormal <2.0 mg/dL [facility] WBC Auto (Urine sed) [#/Area] 25 High [facility] Microscopic examinat ion is performed on all urinalysis samples and only positive findings are reported. The test for blood on the chemical analytic portion of urinalysis may also be positive due to hemoglobinuria and myoglobinuria and if red blood cells are present they are quantified by microscopic examination. [facility] XR Chest 1 Viewon 11-05-2018 EXAMINATION: XR [...] normal in size. Bony thorax is unremarkable. [facility] No acute cardiopulmo nary process. [employer] Workstation ID: [id number] [facility] Interface, Rad In Fu ji Speechq - [...] is unremarkable. IMPRESSION: No acute cardiopulmonary process. [employer] Workstation ID: [id number] [facility] Vital Signs Date Time Vital Sign Value Performing Clinician Facility 01-11-2025 21:05-0400 Body temperature 98.2 [degF] Dr. Mimi Thomas DO Work Phone: [facility] 01-11-2025 21:05-0400 Respiratory rate 16 /min Dr. Mimi Thomas DO Work Phone: [facility] 01-11-2025 21:04-0400 Diastolic blood pressure 77 mm[Hg] Dr. Mimi Thomas DO Work Phone: [facility] 01-11-2025 21:04-0400 Heart rate 79 /min Dr. Mimi Thomas DO Work Phone: [facility] 01-11-2025 21:04-0400 Systolic blood pressure 122 mm[Hg] Dr. Mimi Thomas DO Work Phone: [facility] 01-11-2025 20:56-0400 Body height 162.[address] Mimi Thomas DO Work Phone: [facility] 01-11-2025 20:56-0400 Body mass index (BMI) [Ratio] 26.1 kg/m2 Dr. Mimi Thomas DO Work Phone: [facility] 01-11-2025 20:56-0400 Body weight 68.[address] Mimi Thomas DO Work Phone: [facility] 01-07-2025 11:24-0400 Body height 162.[address] Mimi Thomas DO Work Phone: [facility] 01-07-2025 11:24-0400 Body mass index (BMI) [Ratio] 25.7 kg/m2 Dr. Mimi Thomas DO Work Phone: [facility] 01-07-2025 11:24-0400 Body weight 68.[address] Mimi Thomas DO Work Phone: [facility] 01-07-2025 11:24-0400 Diastolic blood pressure 88 mm[Hg] Dr. Mimi Thomas DO Work Phone: [facility] 01-07-2025 11:24-0400 Systolic blood pressure 134 mm[Hg] Dr. Mimi Thomas DO Work Phone: [facility] 12-30-2024 14:13-0400 Body height 162.[address] Mimi Thomas DO Work Phone: [facility] 12-30-2024 14:13-0400 Body mass index (BMI) [Ratio] 25.7 kg/m2 Dr. Mimi Thomas DO Work Phone: [facility] 12-30-2024 14:13-0400 Body weight 68.[address] Mimi Thomas DO Work Phone: [facility] 12-30-2024 14:13-0400 Diastolic blood pressure 86 mm[Hg] Dr. Mimi Thomas DO Work Phone: [facility] 12-30-2024 14:13-0400 Systolic blood pressure 128 mm[Hg] Dr. Mimi Thomas DO Work Phone: [facility] 12-23-2024 15:26-0400 Body height 162.[address] Mimi Thomas DO Work Phone: [facility] 12-23-2024 15:26-0400 Body mass index (BMI) [Ratio] 25.6 kg/m2 Dr. Mimi Thomas DO Work Phone: [facility] 12-23-2024 15:26-0400 Body weight 67.[address] Mimi Thomas DO Work Phone: [facility] 12-23-2024 15:26-0400 Diastolic blood pressure 82 mm[Hg] Dr. Mimi Thomas DO Work Phone: [facility] 12-23-2024 15:26-0400 Systolic blood pressure 118 mm[Hg] Dr. Mimi Thomas DO Work Phone: [facility] 12-15-2024 09:36-0400 Body height 162.[address] Mimi Thomas DO Work Phone: [facility] 12-15-2024 09:36-0400 Body mass index (BMI) [Ratio] 26.1 kg/m2 Dr. Mimi Thomas DO Work Phone: [facility] 12-15-2024 09:36-0400 Body weight 68.[address] Mimi Thomas DO Work Phone: [facility] 12-15-2024 09:36-0400 Diastolic blood pressure 82 mm[Hg] Dr. Mimi Thomas DO Work Phone: [facility] 12-15-2024 09:36-0400 Systolic blood pressure 125 mm[Hg] Dr. Mimi Thomas DO Work Phone: [facility] 12-09-2024 09:30-0400 Body height 162.[address] Mimi Thomas DO Work Phone: [facility] 12-09-2024 09:26-0400 Body mass index (BMI) [Ratio] 25.4 kg/m2 Dr. Mimi Thomas DO Work Phone: [facility] 12-09-2024 09:26-0400 Body weight 67.[address] Mimi Thomas DO Work Phone: [facility] 12-09-2024 09:26-0400 Diastolic blood pressure 76 mm[Hg] Dr. Mimi Thomas DO Work Phone: [facility] 12-09-2024 09:26-0400 Systolic blood pressure 127 mm[Hg] Dr. Mimi Thomas DO Work Phone: [facility] 11-25-2024 09:57-0400 Body height 162.[address] Mimi Thomas DO Work Phone: [facility] 11-25-2024 09:57-0400 Body mass index (BMI) [Ratio] 25 kg/m2 Dr. Mimi Thomas DO Work Phone: [facility] 11-25-2024 09:57-0400 Body weight 66.[address] Mimi Thomas DO Work Phone: [facility] 11-25-2024 09:57-0400 Diastolic blood pressure 82 mm[Hg] Dr. Mimi Thomas DO Work Phone: [facility] 11-25-2024 09:57-0400 Systolic blood pressure 112 mm[Hg] Dr. Mimi Thomas DO Work Phone: [facility] 11-11-2024 09:33-0400 Body height 162.[address] Mimi Thomas DO Work Phone: [facility] 11-11-2024 09:33-0400 Body mass index (BMI) [Ratio] 24.7 kg/m2 Dr. Mimi Thomas DO Work Phone: [facility] 11-11-2024 09:33-0400 Body weight 65.[address] Mimi Thomas DO Work Phone: [facility] 11-11-2024 09:33-0400 Diastolic blood pressure 76 mm[Hg] Dr. Mimi Thomas DO Work Phone: [facility] 11-11-2024 09:33-0400 Systolic blood pressure 117 mm[Hg] Dr. Mimi Thomas DO Work Phone: [facility] 10-27-2024 09:21-0400 Body mass index (BMI) [Ratio] 24.3 kg/m2 Dr. Mimi Thomas DO Work Phone: [facility] 10-27-2024 09:21-0400 Body weight 64.[address] Mimi Thomas DO Work Phone: [facility] 10-27-2024 09:21-0400 Diastolic blood pressure 73 mm[Hg] Dr. Mimi Thomas DO Work Phone: [facility] 10-27-2024 09:21-0400 Systolic blood pressure 119 mm[Hg] Dr. Mimi Thomas DO Work Phone: [facility] 10-15-2024 09:57-0400 Body height 162.[address] Mimi Thomas DO Work Phone: [facility] 10-15-2024 09:55-0400 Body mass index (BMI) [Ratio] 23.7 kg/m2 Dr. Mimi Thomas DO Work Phone: [facility] 10-15-2024 09:55-0400 Body weight 62.[address] Mimi Thomas DO Work Phone: [facility] 10-13-2024 13:58-0400 Body mass index (BMI) [Ratio] 23.6 kg/m2 Dr. Mimi Thomas DO Work Phone: [facility] 10-13-2024 13:58-0400 Body weight 62.[address] Mimi Thomas DO Work Phone: [facility] 10-13-2024 13:58-0400 Diastolic blood pressure 71 mm[Hg] Dr. Mimi Thomas DO Work Phone: [facility] 10-13-2024 13:58-0400 Systolic blood pressure 108 mm[Hg] Dr. Mimi Thomas DO Work Phone: [facility] 10-12-2024 10:19-0400 Body height 162.6 cm Sandra Church CNP Work Phone: [facility] 10-12-2024 10:19-0400 Body mass index (BMI) [Ratio] 22.31 kg/m2 Sandra Church CNP Work Phone: [facility] 10-12-2024 10:19-0400 Body temperature 98.71 [degF] Sandra Church CNP Work Phone: [facility] 10-12-2024 10:19-0400 Body weight 58.97 kg Sandra Church CNP Work Phone: [facility] 10-12-2024 10:19-0400 Diastolic blood pressure 70 mm[Hg] Sandra Church CNP Work Phone: [facility] 10-12-2024 10:19-0400 Heart rate 98 /min Sandra Church CNP Work Phone: [facility] 10-12-2024 10:19-0400 Respiratory rate 15 /min Sandra Church CNP Work Phone: [facility] 10-12-2024 10:19-0400 SaO2% (BldA) [Mass fraction] 96 % Sandra Church [employer] Work Phone: [facility] 10-12-2024 10:19-0400 Systolic blood pressure 107 mm[Hg] Sandra Church [employer] Work Phone: [facility] 09-23-2024 07:54-0400 Body temperature 99.3 [degF] Kassi Ontiveros CNM Work Phone: [facility] 09-23-2024 07:54-0400 Respiratory rate 12 /min Kassi Ontiveros CNM Work Phone: [facility] 09-23-2024 07:54-0400 SaO2% (BldA) [Mass fraction] 100 % Kassi Ontiveros CNM Work Phone: [facility] 09-23-2024 07:48-0400 Diastolic blood pressure 60 mm[Hg] Kassidilcia Ontiveros CNM Work Phone: [facility] 09-23-2024 07:48-0400 Heart rate 80 /min Kassi Ontiveros CNM Work Phone: [facility] 09-23-2024 07:48-0400 Systolic blood pressure 109 mm[Hg] Kassi Ontiveros CNM Work Phone: [facility] 09-22-2024 17:21-0400 Body height 162.56 cm Kassi Ontiveros CNM Work Phone: [facility] 09-22-2024 17:21-0400 Body mass index (BMI) [Ratio] 22.8 kg/m2 Kassi Ontiveros CNM Work Phone: [facility] 09-22-2024 17:21-0400 Body weight 60.32 kg Kassi Ontiveros CNM Work Phone: [facility] 09-22-2024 12:10-0400 Body height 162.6 cm Jamari Delgadillo MD Work Phone: [facility] 09-22-2024 12:10-0400 Body mass index (BMI) [Ratio] 23.34 kg/m2 Jamari Delgadillo MD Work Phone: [facility] 09-22-2024 12:10-0400 Body temperature 98.91 [degF] Jamari Delgadillo MD Work Phone: [facility] 09-22-2024 12:10-0400 Body weight 61.69 kg Jamari Delgadillo MD Work Phone: [facility] 09-22-2024 12:10-0400 Diastolic blood pressure 64 mm[Hg] Jamari Delgadillo MD Work Phone: [facility] 09-22-2024 12:10-0400 Heart rate 82 /min Jamari Delgadillo MD Work Phone: [facility] 09-22-2024 12:10-0400 Respiratory rate 16 /min Jamari Delgadillo MD Work Phone: [facility] 09-22-2024 12:10-0400 SaO2% (BldA) [Mass fraction] 99 % Jamari Delgadillo MD Work Phone: [facility] 09-22-2024 12:10-0400 Systolic blood pressure 107 mm[Hg] Jamari Delgadillo MD Work Phone: [facility] 09-22-2024 08:36-0400 Body mass index (BMI) [Ratio] 23.6 kg/m2 Kassi MESSER Work Phone: [facility] 09-22-2024 08:36-0400 Body weight 62.25 kg Kassi MESSER Work Phone: [facility] 09-22-2024 08:36-0400 Diastolic blood pressure 60 mm[Hg] Kassi Ontiveros CNM Work Phone: [facility] 09-22-2024 08:36-0400 Systolic blood pressure 98 mm[Hg] Kassi MESSER Work Phone: [facility] 08-26-2024 09:26-0500 Body mass index (BMI) [Ratio] 22.1 kg/m2 Kassi Ontiveros CNM Work Phone: [facility] 08-26-2024 09:26-0500 Body weight 58.51 kg Kassi Ontiveros CNM Work Phone: [facility] 08-26-2024 09:26-0500 Diastolic blood pressure 62 mm[Hg] Kassi Ontiveros CNM Work Phone: [facility] 08-26-2024 09:26-0500 Systolic blood pressure 108 mm[Hg] Kassi Ontiveros CNM Work Phone: [facility] 08-08-2024 22:31-0500 Body height 162.6 cm [facility]illo [facility] 08-08-2024 22:31-0500 Body mass index (BMI) [Ratio] 21.63 kg/m2 Jamari Delgadillo MD [facility] [employer] 08-08-2024 22:31-0500 Body temperature 98.2 [degF] Jam[facility]adillo [facility] 08-08-2024 22:31-0500 Body weight 57.15 kg Jamari Delgadillo MD [facility] [employer] 08-08-2024 22:31-0500 Diastolic blood pressure 76 mm[Hg] Jamari Delgadillo MD [facility] 08-08-2024 22:31-0500 Heart rate 76 /min Jamari Delgadillo MD [facility] 08-08-2024 22:31-0500 Respiratory rate 18 /min Jamari Delgadillo MD [facility] 08-08-2024 22:31-0500 SaO2% (BldA) [Mass fraction] 100 % Jamari Delgadillo MD [facility] 08-08-2024 22:31-0500 Systolic blood pressure 118 mm[Hg] Jamari Delgadillo MD Work Phone: [facility] 07-28-2024 08:56-0500 Body mass index (BMI) [Ratio] 21.8 kg/m2 Kassi Ontiveros CNM Work Phone: [facility] 07-28-2024 08:56-0500 Body weight 57.6 kg Kassi Ontiveros CNM Work Phone: [facility] 07-28-2024 08:56-0500 Diastolic blood pressure 70 mm[Hg] Kassi Ontiveros CNM Work Phone: [facility] 07-28-2024 08:56-0500 Systolic blood pressure 112 mm[Hg] Kassi Ontiveros CNM Work Phone: [facility] 07-01-2024 09:26-0500 Body mass index (BMI) [Ratio] 21.3 kg/m2 Kassi Ontiveros CNM Work Phone: [facility] 07-01-2024 09:26-0500 Body weight 56.41 kg Kassi Ontiveros CNM Work Phone: [facility] 07-01-2024 09:26-0500 Diastolic blood pressure 61 mm[Hg] Kassi Ontiveros CNM Work Phone: [facility] 07-01-2024 09:26-0500 Systolic blood pressure 107 mm[Hg] Kassi Ontiveros CNM Work Phone: [facility] 05-29-2024 11:19-0500 Body mass index (BMI) [Ratio] 21.4 kg/m2 Kassi Ontiveros CNM Work Phone: [facility] 05-29-2024 11:19-0500 Body weight 56.81 kg Kassi Ontiveros CNM Work Phone: [facility] 05-29-2024 11:19-0500 Diastolic blood pressure 76 mm[Hg] Kassi Ontiveros CNM Work Phone: [facility] 05-29-2024 11:19-0500 Systolic blood pressure 127 mm[Hg] Kassi MESSER Work Phone: [facility] 03-07-2023 17:56-0400 Body height 162 cm Jennifer Spring Other Phone: [facility] 03-07-2023 17:56-0400 Body temperature 97.88 [degF] Jennifer Spring Other Phone: [facility] 03-07-2023 17:56-0400 Diastolic blood pressure 73 mm[Hg] Jennifer Spring Other Phone: [facility] 03-07-2023 17:56-0400 Heart rate 84 /min Jennifer Spring Other Phone: [facility] 03-07-2023 17:56-0400 Respiratory rate 16 /min Jennifer Spring Other Phone: [facility] 03-07-2023 17:56-0400 SaO2% (BldA) [Mass fraction] 97 % Jennifer Spring Other Phone: [facility] 03-07-2023 17:56-0400 Systolic blood pressure 110 mm[Hg] Jennifer Spring Other Phone: [facility] 11-20-2022 13:19-0400 Body height 162.5 cm Jennifer Spring Other Phone: [facility] 11-20-2022 13:19-0400 Body temperature 98.24 [degF] Jennifer Spring Other Phone: [facility] 11-20-2022 13:19-0400 Diastolic blood pressure 73 mm[Hg] Jennifer Spring Other Phone: [facility] 11-20-2022 13:19-0400 Heart rate 99 /min Jennifer Spring Other Phone: [facility] 11-20-2022 13:19-0400 Respiratory rate 14 /min Jennifer Spring Other Phone: [facility] 11-20-2022 13:19-0400 SaO2% (BldA) [Mass fraction] 97 % Jennifer Spring Other Phone: [facility] 11-20-2022 13:19-0400 Systolic blood pressure 115 mm[Hg] JenniferSmule Other Phone: [facility] 11-01-2022 11:09-0400 Body height 162 cm JenniferSmule Other Phone: [facility] 11-01-2022 11:09-0400 Body temperature 97.88 [degF] JenniferSmule Other Phone: [facility] 11-01-2022 11:09-0400 Diastolic blood pressure 75 mm[Hg] JenniferSmule Other Phone: [facility] 11-01-2022 11:09-0400 Heart rate 74 /min JenniferSmule Other Phone: [facility] 11-01-2022 11:09-0400 SaO2% (BldA) [Mass fraction] 97 % JenniferSmule Other Phone: [facility] 11-01-2022 11:09-0400 Systolic blood pressure 113 mm[Hg] JenniferSmule Other Phone: [facility] 10-18-2022 16:14-0400 Body height 162.6 cm Mary Romero [employer] Work Phone: [facility] 10-18-2022 16:14-0400 Body mass index (BMI) [Ratio] 18.88 kg/m2 Mary Romero [employer] Work Phone: [facility] 10-18-2022 16:14-0400 Body temperature 98.49 [degF] Mary Romero [employer] Work Phone: [facility] 10-18-2022 16:14-0400 Body weight 49.9 kg Mary Romero [employer] Work Phone: [facility] 10-18-2022 16:14-0400 Diastolic blood pressure 71 mm[Hg] Mary Romero [employer] Work Phone: [facility] 10-18-2022 16:14-0400 Heart rate 80 /min Mary Romero [employer] Work Phone: [facility] 10-18-2022 16:14-0400 Respiratory rate 14 /min Mary Romero [employer] Work Phone: [facility] 10-18-2022 16:14-0400 SaO2% (BldA) [Mass fraction] 97 % Mary Romero [employer] Work Phone: [facility] 10-18-2022 16:14-0400 Systolic blood pressure 107 mm[Hg] Mary Romero [employer] Work Phone: [facility] 10-18-2022 14:41-0400 Body height 162.6 cm Verenice [employer] PA-C Work Phone: [facility] Comment on above: pt reported 10-18-2022 14:41-0400 Body mass index (BMI) [Ratio] 18.88 kg/m2 Verenice [employer] PA-C Work Phone: [facility] 10-18-2022 14:41-0400 Body weight 49.9 kg Verenice [employer] PA-C Work Phone: [facility] Comment on above: pt reported 01-27-2022 19:09-0400 Diastolic blood pressure 44 mm[Hg] [facility] 01-27-2022 19:09-0400 Heart rate 63 /min [facility] 01-27-2022 19:09-0400 Mean blood pressure 62 mm[Hg] [facility] 01-27-2022 19:09-0400 Respiratory rate 13 /min [facility] 01-27-2022 19:09-0400 SaO2% (BldA) [Mass fraction] 100 % [facility] 01-27-2022 19:09-0400 Systolic blood pressure 98 mm[Hg] [facility] 01-27-2022 18:00-0400 Diastolic blood pressure 61 mm[Hg] [facility] 01-27-2022 18:00-0400 Heart rate 71 /min [facility] 01-27-2022 18:00-0400 Mean blood pressure 76 mm[Hg] [facility] 01-27-2022 18:00-0400 Respiratory rate 11 /min [facility] 01-27-2022 18:00-0400 Systolic blood pressure 107 mm[Hg] [facility] 01-27-2022 17:00-0400 Diastolic blood pressure 59 mm[Hg] [facility] 01-27-2022 17:00-0400 Heart rate 78 /min [facility] 01-27-2022 17:00-0400 Mean blood pressure 72 mm[Hg] [facility] 01-27-2022 17:00-0400 SaO2% (BldA) [Mass fraction] 99 % [facility] 01-27-2022 17:00-0400 Systolic blood pressure 99 mm[Hg] [facility] 01-27-2022 16:04-0400 Body temperature 98.24 [degF] [facility] 01-27-2022 16:04-0400 Heart rate 73 /min [facility] 01-27-2022 16:04-0400 Respiratory rate 18 /min [facility] 12-31-2021 18:37-0400 Body temperature 97.88 [degF] [facility] 12-31-2021 18:37-0400 Diastolic blood pressure 64 mm[Hg] [facility] 12-31-2021 18:37-0400 Heart rate 79 /min [facility] 12-31-2021 18:37-0400 Respiratory rate 18 /min [facility] 12-31-2021 18:37-0400 SaO2% (BldA) [Mass fraction] 99 % [facility] 12-31-2021 18:37-0400 Systolic blood pressure 110 mm[Hg] [facility] 11-06-2020 02:56-0400 Diastolic blood pressure 71 mm[Hg] [employer] Other Phone: [facility] 11-06-2020 02:56-0400 Heart rate 72 /min [employer] Other Phone: [facility] 11-06-2020 02:56-0400 Respiratory rate 16 /min [employer] Other Phone: [facility] 11-06-2020 02:56-0400 SaO2% (BldA) [Mass fraction] 98 % [employer] Other Phone: [facility] 11-06-2020 02:56-0400 Systolic blood pressure 110 mm[Hg] [employer] Other Phone: [facility] 02-05-2020 09:13-0400 BP Diastolic 77 mm[Hg] [facility] 02-05-2020 09:13-0400 BP Systolic 115 mm[Hg] [facility] 02-05-2020 09:13-0400 Pulse (Heart Rate) 84 /min [facility] 02-05-2020 09:11-0400 BMI (Body Mass Index) 18.02 kg/m2 [facility] 02-05-2020 09:11-0400 Body weight 47.63 kg [facility] 02-05-2020 09:11-0400 Height 162.6 cm karen [facility] 02-05-2020 09:11-0400 Pulse Oximetry 98 % Julieth [facility] 02-05-2020 09:11-0400 Respiratory Rate 16 /min [facility] 12-31-2019 11:07-0400 BMI (Body Mass Index) 18.28 kg/m2 [facility] 12-31-2019 11:07-0400 Body Temperature 98.2 [degF] [facility] 12-31-2019 11:07-0400 Body weight 48.31 kg [facility] 12-31-2019 11:07-0400 BP Diastolic 65 mm[Hg] [facility] 12-31-2019 11:07-0400 BP Systolic 100 mm[Hg] [facility] 12-31-2019 11:07-0400 Height 162.6 cm [facility] 12-31-2019 11:07-0400 Pulse (Heart Rate) 66 /min [facility] 12-31-2019 11:07-0400 Pulse Oximetry 96 % [facility] 12-31-2019 11:07-0400 Respiratory Rate 16 /min [facility] 12-29-2019 08:50-0400 BP Diastolic 76 mm[Hg] [facility] 12-29-2019 08:50-0400 BP Systolic 100 mm[Hg] [facility] 12-29-2019 08:49-0400 Pulse (Heart Rate) 96 /min Chintan Solhmy [facility] 12-29-2019 08:38-0400 BMI (Body Mass Index) 18.4 kg/m2 Chintan Solhmy [facility] 12-29-2019 08:38-0400 Body weight 48.63 kg hCintan Solhmy [facility] 12-29-2019 08:38-0400 Height 162.6 cm Chintan Solhmy [facility] 12-29-2019 08:38-0400 Pulse Oximetry 99 % Chintan Ling [facility] 12-23-2019 17:24-0400 BP Diastolic 58 mm[Hg] [facility] 12-23-2019 17:24-0400 BP Systolic 104 mm[Hg] [facility] 12-23-2019 17:24-0400 Pulse (Heart Rate) 60 /min [facility] 12-23-2019 17:24-0400 Respiratory Rate 18 /min [facility] 12-23-2019 16:45-0400 Pulse Oximetry 100 % [facility] 12-23-2019 14:25-0400 BMI (Body Mass Index) 18.37 kg/m2 [facility] 12-23-2019 14:25-0400 Body Temperature 98.2 [degF] [facility] 12-23-2019 14:25-0400 Body weight 48.53 kg [facility] 12-23-2019 14:25-0400 Height 162.6 cm [facility] 12-16-2019 19:15-0400 BMI (Body Mass Index) 18.37 kg/m2 [facility] [place] 12-16-2019 19:15-0400 Body Temperature 98.01 [degF] [facility] [place] 12-16-2019 19:15-0400 Body weight 48.53 kg [place] 12-16-2019 19:15-0400 BP Diastolic 90 mm[Hg] [facility] [place] 12-16-2019 19:15-0400 BP Systolic 145 mm[Hg] [facility] [place] 12-16-2019 19:15-0400 Height 162.6 cm [place] 12-16-2019 19:15-0400 Pulse (Heart Rate) 70 /min [facility] [place] 12-16-2019 19:15-0400 Pulse Oximetry 100 % Ric [place] 12-16-2019 19:15-0400 Respiratory Rate 16 /min [facility] [place] 03-02-2019 08:44-0400 BMI (Body Mass Index) 19.66 kg/m2 [facility] 03-02-2019 08:44-0400 Body Temperature 98.2 [degF] [facility] 03-02-2019 08:44-0400 Body weight 50.35 kg [facility] 03-02-2019 08:44-0400 BP Diastolic 61 mm[Hg] [facility] 03-02-2019 08:44-0400 BP Systolic 101 mm[Hg] [facility] 03-02-2019 08:44-0400 Pulse (Heart Rate) 66 /min [facility] 02-24-2019 09:16-0400 BP Diastolic 64 mm[Hg] [facility] 02-24-2019 09:16-0400 BP Systolic 106 mm[Hg] [facility] 02-24-2019 09:16-0400 Pulse (Heart Rate) 79 /min [facility] 02-24-2019 09:16-0400 Pulse Oximetry 100 % [facility] 02-24-2019 09:16-0400 Respiratory Rate 15 /min [facility] 02-24-2019 08:55-0400 Body Temperature 97.9 [degF] [facility] 02-24-2019 07:45-0400 BMI (Body Mass Index) 19.04 kg/m2 [facility] 02-24-2019 07:45-0400 Body weight 48.76 kg [facility] 02-24-2019 07:45-0400 Height 160 cm [facility] 02-04-2019 13:03-0400 BMI (Body Mass Index) 18.3 kg/m2 [facility] 02-04-2019 13:03-0400 Body Temperature 98.6 [degF] [facility] 02-04-2019 13:03-0400 Body weight 48.17 kg [facility] 02-04-2019 13:03-0400 BP Diastolic 70 mm[Hg] [facility] 02-04-2019 13:03-0400 BP Systolic 115 mm[Hg] [facility] 02-04-2019 13:03-0400 Height 162.3 cm [facility] 02-04-2019 13:03-0400 Pulse (Heart Rate) 90 /min [facility] 02-04-2019 13:03-0400 Pulse Oximetry 97 % Sergio Gray [facility] 01-28-2019 03:54-0400 BP Diastolic 53 mm[Hg] Jeffrey Colon [facility] 01-28-2019 03:54-0400 BP Systolic 101 mm[Hg] Jeffrey Colon [facility] 01-28-2019 03:54-0400 Pulse (Heart Rate) 56 /min Jeffrey Colon [facility] 01-28-2019 03:54-0400 Pulse Oximetry 99 % Jeffrey Colon [facility] 01-28-2019 03:54-0400 Respiratory Rate 16 /min Jeffrey Colon [facility] 01-27-2019 23:04-0400 BMI (Body Mass Index) 18.37 kg/m2 Jeffrey Colon [facility] 01-27-2019 23:04-0400 Body weight 48.53 kg Jeffrey Colon [facility] 01-27-2019 23:04-0400 Height 162.6 cm Jeffrey Colon [facility] 01-27-2019 22:58-0400 Body Temperature 98.29 [degF] Jeffrey Colon [facility] 11-19-2018 11:27-0400 BMI (Body Mass Index) 18.71 kg/m2 [facility] 11-19-2018 11:27-0400 Body Temperature 98.4 [degF] [facility] 11-19-2018 11:27-0400 BP Diastolic 72 mm[Hg] [facility] 11-19-2018 11:27-0400 BP Systolic 109 mm[Hg] [facility] 11-19-2018 11:27-0400 Height 162.6 cm [facility] 11-19-2018 11:27-0400 Pulse (Heart Rate) 82 /min [facility] 11-19-2018 11:27-0400 Pulse Oximetry 98 % [facility] 11-19-2018 11:27-0400 Respiratory Rate 18 /min [facility] 11-19-2018 11:27-0400 Weight 49.44 kg [facility] 11-09-2018 08:45-0400 Respiratory Rate 12 /min Emily [facility] 11-09-2018 08:39-0400 Body Temperature 98.2 [degF] Emily [facility] 11-09-2018 08:39-0400 BP Diastolic 58 mm[Hg] Emily [facility] 11-09-2018 08:39-0400 BP Systolic 96 mm[Hg] [facility] 11-09-2018 08:39-0400 Pulse (Heart Rate) 60 /min Emily [facility] 11-09-2018 08:39-0400 Pulse Oximetry 98 % [facility] 11-05-2018 17:40-0400 BMI (Body Mass Index) 20.4 kg/m2 [facility] 11-05-2018 17:40-0400 Body weight 53.9 kg [facility] 11-05-2018 17:40-0400 Height 162.6 cm [facility] 11-05-2018 14:39-0400 Respiratory rate 0 /min [facility] Encounters Encounter Date Encounter Type Care Provider Facility Start: 01-11-2025 End: 01-11-[address] Mimi Thomas DO [facility] Start: 01-11-2025 End: 01-11-2025 Patient encounter procedure Yvrose Mcmillan [facility] Work Phone: Start: 01-07-2025 End: 01-07-[address] Mimi Thomas DO -[facility] Work Phone: Start: 01-07-2025 End: 01-07-[address] Mimi Thomas DO Work Phone: -[facility] Start: 12-30-2024 End: 12-30-[address] Mimi Thomas DO -[facility] Work Phone: Start: 12-30-2024 End: 12-30-[address] Mimi Thomas DO Work Phone: -[facility] Start: 12-23-2024 End: 12-23-[address] Mimi Thomas DO -[facility] Work Phone: Start: 12-23-2024 End: 12-23-[address] Mimi Thomas DO Work Phone: -[facility] Start: 12-15-2024 End: 12-15-[address] Mimi Thomas DO Work Phone: -Laboratory Specimen Start: 12-15-2024 End: 12-15-[address] Leonor Phillips MD -Laboratory Specimen Work Phone: Start: 12-15-2024 End: 12-15-[address] Leonor Phillips MD -[facility] Work Phone: Start: 12-15-2024 End: 12-15-[address] Mimi Thomas DO Work Phone: [facility] Work Phone: Start: 12-15-2024 End: 12-15-2024 ambulatory No Primary Care Physician Facility:[facility] Start: 12-11-2024 End: 12-11-[address] Mimi Thomas DO Work Phone: [facility] Work Phone: Start: 12-11-2024 End: 12-11-[address] Leonor Phillips MD -[facility] Work Phone: Start: 12-11-2024 End: 12-11-2024 ambulatory No Primary Care Physician Facility:[facility] Start: 12-09-2024 End: 12-09-[address] Leonor Phillips MD -[facility] Work Phone: Start: 12-09-2024 End: 12-09-[address] Mimi Thomas DO Work Phone: [facility] Work Phone: Start: 11-25-2024 End: 11-25-2024 Patient encounter procedure Ramya Voss NP-C -[facility] Work Phone: Start: 11-25-2024 End: 11-25-[address] Mimi Thomas DO Work Phone: [facility] Work Phone: Start: 11-25-2024 End: 11-25-2024 ambulatory Ramya Voss SITE RELIABILITY ENGINEER Facility:[facility] Start: 11-11-2024 End: 11-11-[address] Mimi Thoams DO -[facility] Work Phone: Start: 11-11-2024 End: 11-11-[address] Mimi Thomas DO Work Phone: [facility] Work Phone: Start: 10-27-2024 End: 10-27-2024 Patient encounter procedure Yvrose Mcmillan CNM -[facility] Work Phone: Start: 10-27-2024 End: 10-27-2024 ambulatory No Primary Care Physician Facility:[facility] Start: 10-15-2024 End: 10-15-[address] Mimi Thomas DO Work Phone: [facility] Work Phone: Start: 10-15-2024 End: 10-15-2024 Patient encounter procedure Ramya Voss NP-C -Laboratory, Specimen Work Phone: Start: 10-15-2024 End: 10-15-2024 Patient encounter procedure Ramya Voss SITE RELIABILITY ENGINEER-C -[facility] Work Phone: Start: 10-15-2024 End: 10-15-2024 ambulatory No Primary Care Physician Facility:[facility] Start: 10-15-2024 End: 10-15-2024 ambulatory No Primary Care Physician Facility:[facility] Start: 10-13-2024 End: 10-13-[address] Mimi Thomas DO Work Phone: [facility] Work Phone: Start: 10-13-2024 End: 10-13-[address] Leonor Phillips MD -[facility] Work Phone: Start: 10-12-2024 End: 10-12-2024 Office outpatient visit 15 minutes Sandra Church [facility] Work Phone: [facility] Comment on above: Sore throat (Primary Dx); Viral pharyngitis Start: 10-12-2024 End: 10-13-2024 ambulatory SANDRA AYALA [facility] Start: 10-08-2024 End: 10-08-2024 Emergency department patient visit ALBAARABELLA QING [facility] Start: 09-23-2024 Non-patient / Non-visit Dr. Maylin Phillips MD [facility] Start: 09-22-2024 Non-patient / Non-visit Dr. Olman Thomas DO -[facility] Start: 09-22-2024 ambulatory Mimi Cummings cility:[facility] Start: 09-22-2024 End: 09-23-2024 Evaluation and management of inpatient Dr. Mimi Thomas DO [facility] Work Phone: Start: 09-22-2024 End: 09-22-2024 Emergency department patient visit Jamari Delgadillo MD Work Phone: [facility] Comment on above: Acute pyelonephritis (Primary Dx) Start: 09-22-2024 End: 09-22-2024 Patient encounter procedure Ramya Voss NP-C -[facility] Work Phone: Start: 09-22-2024 End: 09-22-2024 ambulatory Ramya Voss SITE RELIABILITY ENGINEER Facility:[facility] Start: 08-26-2024 End: 08-26-[address] Leonor Phillips MD -[facility] Work Phone: Start: 08-26-2024 End: 08-26-2024 ambulatory Leonor Phillips Facility:[facility] Start: 08-08-2024 End: 08-09-2024 Emergency department patient visit Jamari Delgadillo MD Work Phone: [facility] Comment on above: Abdominal pain, left upper quadrant (Primary Dx) Start: 08-06-2024 End: 08-06-2024 ambulatory MICHAELKAYLAH GUARDADOADAMSON [facility] Start: 07-28-2024 End: 07-28-2024 ambulatory Mimi Thomas Facility:[facility] Start: 07-28-2024 End: 07-28-[address] Mimi Thomas DO -[facility] Work Phone: Start: 07-01-2024 End: 07-01-2024 Patient encounter procedure Ramya Voss SITE RELIABILITY ENGINEER-C -[facility] Work Phone: Start: 07-01-2024 End: 07-01-2024 ambulatory Ramya Voss NP Facility:[facility] Start: 06-19-2024 End: 06-19-2024 Patient encounter procedure Kassi Weston CNM -Lab, [facility] Start: 06-19-2024 End: 06-19-2024 ambulatory Kassi Ontiveros Facility:[facility] Start: 05-29-2024 End: 05-29-2024 Patient encounter procedure Kassi Ontiveros CNM -Laboratory, Specimen Work Phone: Start: 05-29-2024 End: 05-29-2024 Patient encounter procedure Kassi Ontiveros CNM -[facility] Work Phone: Start: 05-29-2024 End: 05-29-2024 ambulatory Kassi Ontiveros Facility:[facility] Start: 05-29-2024 End: 05-29-2024 ambulatory Kassi [place] Facility:[facility] Start: 04-14-2024 ambulatory Mercedez Harris y:[facility] Start: 03-18-2024 End: 03-18-2024 [facility] Start: 03-15-2024 End: 03-15-2024 Emergency department patient visit PHYSICIAN [facility] Start: 03-07-2023 End: 03-07-2023 Emergency department patient visit Kevin Almeida [facility] Start: 11-20-2022 End: 11-20-2022 Emergency department patient visit Kevin Almeida Facility:[id number] Start: 11-01-2022 End: 11-01-2022 Emergency department patient visit Jia Lindsay [facility] Start: 10-18-2022 End: 10-18-2022 Office outpatient visit 25 minutes Mary Romero CNP Work Phone: [facility] Comment on above: Acute vaginitis (Melvina maddison Dx); Vaginal odor; Screening examination for STD (sexually transmitted disease); Electronic cigarette use Start: 10-18-2022 End: 10-18-2022 Telemedicine consultation with patient Verenice Eleazar Sinha PA-C Work Phone: [facility] Urgent [facility] Comment on above: Vaginal Odor (Primar y Dx) Start: 09-25-2022 End: 09-25-2022 Emergency department patient visit Kevin Almeida Facility:[id number] Start: 02-28-2022 ambulatory Ms. Jennifer Haley Facility:[id number] Start: 01-27-2022 End: 01-27-2022 Emergency department patient visit Urielarabella Ro Lauri [facility] Start: 12-31-2021 End: 12-31-2021 Emergency department patient visit Ji Grimes [facility] Start: 02-10-2021 ambulatory JENNIFER HALEY [facility] Ambulatory Start: 11-06-2020 End: 11-06-2020 Emergency department patient visit Arianna Traylor ED 03 Start: 02-05-2020 End: 02-09-2020 ambulatory JULIETH WATTERS [facility] Start: 02-05-2020 End: 02-05-2020 Office outpatient new 45 minutes Julieth Watters Work Phone: [facility] Comment on above: Syncope, unspecified syncope type Start: 01-01-2020 End: 01-01-2020 Subsequent hospital visit by physician Chintan Ling Work Phone: [facility] Comment on above: Syncope, unspecified syncope type; Palpitations Start: 12-31-2019 End: 12-31-2019 Office outpatient visit 15 minutes Jnenifer SingletonKajal Haley Work Phone: [facility] Comment on above: Syncope, unspecified syncope type (Primary Dx) Start: 12-29-2019 End: 12-29-2019 Office outpatient new 45 minutes Kenn Valdez Work Phone: [facility] Comment on above: Syncope, unspecified syncope type (Primary Dx); Palpitations Start: 12-24-2019 End: 12-24-2019 Documentation procedure Brooke Caruso [facility] Prima [facility] Physicians Comment on above: ED Follow-up Start: 12-23-2019 End: 12-23-2019 Emergency department patient visit Kenn Valdez Work Phone: [facility] Emergency Department Comment on above: Syncope, unspecified syncope type (Primary Dx) Start: 12-16-2019 End: 12-16-2019 [facility] Start: 12-16-2019 End: 12-16-2019 Emergency department patient visit Ric Ellen Lantigua Work Phone: [facility] ED Comment on above: Syncope and collapse (Primary Dx); Contusion of scalp, initial encounter Start: 03-02-2019 End: 03-02-2019 Office outpatient visit 25 minutes Sergio Gray Work Phone: [facility] Comment on above: Chronic gastritis wi thout bleeding, unspecified gastritis type (Primary Dx); GERD without esophagitis; Biliary dyskinesia Start: 02-24-2019 End: 02-24-2019 Subsequent hospital visit by physician Sergio Gray Work Phone: [facility] Periop Comment on above: Abdominal pain; BRBPR (bright red blood per rectum); Weight loss; Nausea; Abdominal pain, unspecified abdominal location; BRBPR (bright red blood per rectum); Weight loss; Nausea Start: 02-11-2019 End: 02-11-2019 Subsequent hospital visit by physician Sergio Gray Work Phone: [facility] Nuclear Medicine Comment on above: Abdominal pain, unsp ecified abdominal location; Weight loss; Nausea Start: 02-04-2019 End: 02-04-2019 Office outpatient new 45 minutes Sergio Gray Work Phone: [facility] Comment on above: Abdominal pain, unsp ecified abdominal location (Primary Dx); BRBPR (bright red blood per rectum); Weight loss; Nausea Start: 01-27-2019 End: 01-28-2019 Emergency department patient visit Jeffrey Colon Work Phone: [facility] Emergency Department Comment on above: Acute UTI (Primary D x); Acute GI bleeding Start: 11-19-2018 End: 11-19-2018 Office outpatient new 20 minutes Jennifer Haley Work Phone: [facility] Comment on above: Sepsis, due to unspe cified organism (HCC) (Primary Dx); Environmental allergies; Body mass index (BMI) of 5th to less than 85th percentile for age in patient 18 years to less than 21 years of age Start: 11-11-2018 End: 11-11-2018 Patient Outreach Kathrin Aguilar [facility] Comment on above: Transition Of Care ( Chart review - initial) Start: 11-05-2018 End: 11-09-2018 Evaluation and management of inpatient Emily Nickerson Work Phone: [facility] Med Surg Comment on above: Acute UTI [...] 10-12-2024 Heterophile antibodi es screen Sandra Church [employer] Work Phone: Start: 10-12-2024 Iadna streptococcus group a amplified probe tq Sandra Church [employer] Work Phone: Start: 09-23-2024 Ultrasound scan for growth Kassi Ontiveros [facility] Work Phone: Start: 09-23-2024 Blood count [...] Start: 05-29-2024 Urine culture Kassi Manning ritaeastonel [facility] Work Phone: Start: 12-23-2019 Choriogonadotropin ( [...] Ric Lantigua Work Phone: Start: 02-24-2019 Colonoscopy [facility] Work Phone: Start: 02-24-2019 Cul bact aerobic add l meths definitive ea isol [facility] Work Phone: Start: 02-24-2019 Choriogonadotropin ( test) [Presence] in Urine [facility] Work Phone: Start: 02-24-2019 Endoscopy of esophagus [facility] Work Phone: Start: 02-11-2019 Hepatobil syst imag inc gb w/pharma intervenj [facility] Work Phone: Start: 01-28-2019 Ct abdomen & pelvis w/contrast material Jeffrey Cloon Work Phone: Start: 01-28-2019 Radiologic exam ches [...] blood count with white cell differential, automated [employer] Work Phone: Start: 11-09-2018 Complete blood count with white cell differential, manual Brissa ChoiTraiana Work Phone: Start: 11-08-2018 Ct abdomen & pelvis w/contrast material Brissa Dumont Work Phone: Start: 11-08-2018 Complete blood count with white cell differential, automated [employer] Carlos [employer] Work Phone: Start: 11-08-2018 Complete blood count with white cell differential, manual [employer]ilo [employer] Work Phone: Start: 11-07-2018 Complete blood count with white cell differential, automated Alaa [employer] Work Phone: Start: 11-07-2018 Complete blood count [...] metabolic 2000 panel - Serum or Plasma [employer] Work Phone: Start: 11-06-2018 Complete blood count with white cell differential, automated [employer] Work Phone: Start: 11-06-2018 Complete blood count with white cell differential, manual [employer] Work Phone: Start: 11-06-2018 Magnesium [Mass/volu me] in Serum or Plasma Magda Crisostomo Work Phone: Start: 11-06-2018 Red blood cell morphology [employer] Work Phone: Start: 11-06-2018 Ct abdomen & [...] H/O splenectomy History of splenectomy Kassi Ontiveros [facility] Work Phone: Comment on above: 12yo, [...] yrs+ (1 - 1-dose 75+ series) [facility] Start: 02-19-2050 Shingles vaccine (1 of 2) Shingles vaccine (1 of 2) [facility] Start: 04-01-2027 DTaP/Tdap/Td vaccine (7 - Td or Tdap) DTaP/Tdap/Td vaccine (7 - Td or Tdap) [facility] Start: 04-01-2027 DTaP/Tdap/Td vaccine (7 - Td) DTaP/Tdap/Td vaccine (7 - Td) [place] Start: 04-01-2027 Tetanus vaccination [facility] Start: 02-22-2025 Influenza vaccination Influenza Vaccine (Season Ended) [facility] Start: 01-22-2025 Influenza vaccination Flu vaccine (Season Ended) [facility] Start: 01-11-2025 Nonstress test [facility] Start: 01-11-2025 Obstetric monitoring [facility] Start: 01-11-2025 Vital signs measurements [facility] Start: 01-11-2025 [facility] Start: 01-11-2025 Patient discharge [facility] Start: 12-15-2024 Streptococcus agalactiae [Presence] in Unspecified specimen by Organism specific culture [facility] Start: 12-15-2024 Group B Streptococcus Culture Group B Streptococcus Culture [facility] Start: 11-25-2024 CBC W Auto Differential panel - Blood [facility] Start: 10-08-2024 Tdap Vaccine during Tdap Vaccine during [facility] Start: 09-23-2024 Application of intermittent pneumatic compression device [facility] Start: 09-23-2024 Patient discharge [facility] Start: 09-23-2024 [facility] Start: 09-22-2024 Admission procedure [facility] Start: 09-22-2024 Nonstress test [facility] Start: 09-22-2024 Obstetric monitoring [facility] Start: 09-22-2024 Vital signs measurements [facility] Start: 09-22-2024 [facility] Start: 02-23-2024 COVID-19 Vaccine ( season) COVID-19 Vaccine ( season) [facility] Start: 01-23-2024 Influenza vaccination Flu vaccine (#1) [facility] Start: 10-19-2023 Screening for Chlamydia trachomatis Chlamydia Screening [facility] Start: 02-22-2023 Influenza vaccination Sequential Influenza Vaccine (Season Ended) [facility] Start: 02-19-2021 Screening for malignant neoplasm of cervix Pap smear [facility] Start: 07-04-2020 End: 07-04-2020 Office Visit 07/04/2020 Office Visit Primary Care Jennifer Haley CNP [address] [place] [address] [phone] [facility] Start: 03-08-2020 End: 03-08-2020 Office Visit 03/08/2020 Office Visit Cardiology Chintan Ling MD [address] [place] [address] [phone] [facility] Start: 02-23-2020 Influenza vaccination Flu vaccine (Season Ended) [place], [place] Start: 02-23-2020 Influenza vaccination given Sequential Influenza Vaccine (#1) [facility] Start: 02-05-2020 Screening for Chlamydia trachomatis Chlamydia Screening [facility] Start: 02-05-2020 End: 02-05-2020 Office Visit 02/05/2020 Office Visit Neurology Julieth Watters MD [address] [address] [phone] [facility] Start: 01-01-2020 End: 01-01-2020 Appointment 01/01/2020 Appointment Cardiology Chintan Ling MD [address] [place] [address] [phone] [facility] Start: 12-31-2019 End: 12-31-2019 Office Visit 12/31/2019 Office Visit Primary Care Jennifer Haley CNP [address] [place] [address] [phone] [facility] Start: 11-08-2019 Depression screening using PHQ-9 (Patient Health Questionnaire 9) score [facility] Start: 04-01-2019 End: 04-01-2019 Office Visit 04/01/2019 Office Visit General Surgery Sergio Gray MD [address] [address] [phone] [facility] Start: 02-24-2019 End: 02-24-2019 Hospital Encounter [facility] Periop Comment on above: Abdominal pain; BRBPR (bright red blood per rectum); Weight loss; Nausea ESOPHAGOGASTRODUODEN OSCOPY Start: 02-22-2019 Influenza vaccination given [facility] Start: 02-19-2019 Pneumococcal 0-49 years Vaccine (1 of 2 - PCV) Pneumococcal 0-49 years Vaccine (1 of 2 - PCV) Armond Diego [facility] Start: 02-19-2019 Pneumococcal Vaccine: Ped or At-Risk (1 of 2 - PCV) Pneumococcal Vaccine: Ped or At-Risk (1 of 2 - PCV) [facility] Start: 12-22-2018 End: 12-22-2018 Office Visit 12/22/2018 Office Visit Primary Care Jennifer Haley CNP [address] [place] [address] [facility] Start: 11-19-2018 End: 11-19-2018 Office Visit 11/19/2018 Office Visit Primary Care Jennifer Haley CNP [address] [place] [address] [phone] [facility] Start: 04-01-2018 History and physical examination, annual for health maintenance Wellness Visit [facility] Start: 02-19-2018 Hepatitis C antibody, confirmatory test Hepatitis C Screening [facility] Start: 02-19-2018 Hepatitis C screening [facility] Start: 04-29-2017 Meningococcal B vaccine (2 of 2 - Increased Risk Bexsero 2-dose series) Meningococcal B vaccine (2 of 2 - Increased Risk Bexsero 2-dose series) [place] Start: 04-29-2017 Meningococcal B vaccine (2 of 4 - Increased Risk Bexsero 2-dose series) Meningococcal B vaccine (2 of 4 - Increased Risk Bexsero 2-dose series) [facility] Start: 04-29-2017 Meningococcal B vaccine (2 of 5 - Increased Risk Bexsero 3-dose series) Meningococcal B vaccine (2 of 5 - Increased Risk Bexsero 3-dose series) [facility] Start: 05-17-2016 Meningococcal (ACWY) vaccine (2 - Risk 2-dose series) Meningococcal (ACWY) vaccine (2 - Risk 2-dose series) [facility] Start: 2016 Screening for Chlamydia trachomatis [facility] Start: 02-19-2015 HIV screening [facility] Start: 2012 Depression Screen Depression Screen [facility] Start: 02-19-2011 HPV vaccine (1 - 2-dose series) HPV vaccine (1 - 2-dose series) [place] Start: 02-19-2006 Pneumococcal 0-64 years Vaccine (1 of 3 - PCV13) Pneumococcal 0-64 years Vaccine (1 of 3 - PCV13) [place] Start: 02-19-2006 Pneumococcal Vaccine: Ped or At-Risk (1 - PCV) Pneumococcal Vaccine: Ped or At-Risk (1 - PCV) [facility] Start: 2004 Varicella vaccine (2 of 2 - 2-dose childhood series) Varicella vaccine (2 of 2 - 2-dose childhood series) [facility] Start: 02-19-2003 History and physical examination, annual for health maintenance Wellness Visit [facility] Start: 2000 COVID-19 Vaccine (#1) COVID-19 Vaccine (#1) [facility] Start: 2000 Depression screening using PHQ-9 (Patient Health Questionnaire 9) score Depression Screening (PHQ9) [facility] Start: 2000 Screening for Chlamydia trachomatis Chlamydia Screening [facility] Start: 2000 Screening for malignant neoplasm of cervix Pap Smear [facility] 12 lead ECG ECG 12 Lead ECG Routine Syncope, unspecified syncope type Ordered: 12/29/2019 [facility] Comment on above: Ordered: 12/29/2019 Bacteria identified Cx Nom (Bld) [facility] Beta-hemolytic Strep tococcus culture [facility] End: 09-22-2024 Blood Culture 1 [facility] [employer] Comment on above: One Time for 1 Occurrences starting 06/2024 until 09/22/2024 End: 12-29-2020 Cardiac event recording Cardiac event monitor Cardiac Services Routine Syncope, unspecified syncope type Palpitations 1 Occurrences starting 12/29/2019 until 12/29/2020 [facility] Comment on above: 1 Occurrences starting 12/29/2019 until 12/29/2020 End: 01-01-2020 Cardiac event recording Cardiac event monitor Cardiac Services Routine Syncope, unspecified syncope type Palpitations Once for 1 Occurrences starting 01/01/2020 until 01/01/2020 [facility] Comment on above: Once for 1 Occurrences starting 01/01/20 until 01/01/2020 Cast care: wet Wet Preparation Microbiology Routine Vaginal odor Screening examination for STD (sexually transmitted disease) 10/18/2022 4:33 PM EDT [facility] CBC W Auto Different ial panel - Blood [facility] End: 12-16-2019 CT Head WO Contrast CT Head WO Contrast Imaging STAT Once for 1 Occurrences starting 12/16/2019 until 12/16/[facility] [place] Comment on above: Once for 1 Occurrences starting 12/16/19 until 12/16/2019 CT Head WO Contrast CT Head WO C ontrast Imaging STAT 12/16/2019 8:10 PM EDT [place], [place] End: 09-22-2024 Culture, Blood 2 [facility] [employer] Comment on above: One Time for 1 Occurrences starting 06/2024 until 09/22/2024 End: 09-22-2024 Culture, Urine [facility] [employer] Comment on above: Once for 1 Occurrences starting 09/23/19 25 until 09/22/2024 End: 02-05-2021 EEG (STANDARD) EEG (Standard) Neurology Routine Syncope, unspecified syncope type 1 Occurrences starting 02/05/2020 until 02/05/2021 [facility] Comment on above: 1 Occurrences starting 02/05/2020 until 02/05/2021 EKG 12 Lead EKG 12 Lead ECG Routine 12/16[facility]2019 7[facility]25 [facility] [place] Erythrocyte mean cor puscular volume determination [facility] End: 01-27-2019 Gastrointestinal pathogens DNA and RNA panel - Stool by [facility] with non-probe detection Stool/GI PCR Panel Microbiology Routine Once for 1 Occurrences starting 01/27/2019 until 01/27/2019 [facility] Comment on above: Once for 1 Occurrences starting 01/28/20 19 until 01/27/2019 Hematocrit [Volume F raction] of Blood [facility] Hemoglobin [Mass/volume] in Blood [facility] Leukocytes [#/volume] in Blood [facility] Mean corpuscular hem oglobin concentration determination [facility] Mean corpuscular hem oglobin determination [facility] Measurement of gluco se 2 hours after glucose challenge for glucose tolerance test [facility] End: 02-05-2021 MR Brain With And Without Contrast MR Brain With And Without Contrast Imaging Routine Syncope, unspecified syncope type 1 Occurrences starting 02/05/2020 until 02/05/2021 [facility] Comment on above: 1 Occurrences starting 02/05/2020 until 02/05/2021 End: 10-19-2023 Neisseria gonorrhoeae nucleic acid detection Chlamydia/Gonorrhoea e Amplified RNA Microbiology Routine Vaginal odor Screening examination for STD (sexually transmitted disease) 1 Occurrences starting 10/18/2022 until 10/19/2023 [facility] Work Phone: Comment on above: 1 Occurrences starting 10/18/2022 until 10/19/2023 Neisseria gonorrhoea e nucleic acid detection Chlamydia/Gonorrhoea e Amplified RNA Microbiology Routine Vaginal odor Screening examination for STD (sexually transmitted disease) 10/18/2022 4:33 PM EDT [facility] Neutrophil count [facility] Neutrophil percent d ifferential count [facility] End: 02-05-2020 NM Hepatobiliary With Ejection Fraction NM Hepatobiliary With Ejection Fraction Imaging Routine Abdominal pain, unspecified abdominal location Weight loss Nausea 1 Occurrences starting 02/04/2019 until 02/05/2020 [facility] Comment on above: 1 Occurrences starting 02/04/2019 until 02/05/2020 Patient Education Kick [facility] ED False Labor OB Triage: Return to Hospital or Notify Physician if you Experience: [facility] Work Phone: Platelets [#/volume] in Blood [facility] End: 11-08-2018 Procalcitonin [Mass/Vol] Procalcitonin Microbiology Routine Once for 1 Occurrences starting 11/08/2018 until 11/08/2018 [facility] Comment on above: Once for 1 Occurrences starting 11/09/19 19 until 11/08/2018 Procalcitonin [Mass/Vol] Procalc itonin Microbiology Routine 11/08/2018 2:55 PM EDT [facility] Procedure on tissue specimen [facility] Comment on above: Once for 1 Occurrences starting 02/25/20 19, 1 completed Red blood cell count [facility] Red cell distributio n width determination [facility] Serologic test for syphilis [facility] Streptococcus agalac tiae [Presence] in Unspecified specimen by Organism specific culture [facility] Ultrasound scan for growth [facility] Gallbladder [facility] End: 09-22-2024 Kidney [facility] Comment on above: Once for 1 Occurrences starting 09/23/19 until 09/22/2024 [facility] Immunizations Immunization Date Immunization [facility] tetanus toxoid, redu olga diphtheria toxoid, and acellular pertussis vaccine, adsorbed Dr. Mimi Thomas DO Work Phone: [facility] 04-01-2017 hepatitis A vaccine, pediatric/adolescent dosage, 2 dose schedule [facility] 04-01-2017 influenza, injectabl e, quadrivalent, preservative free [facility] 04-01-2017 meningococcal B vacc ine, recombinant, OMV, adjuvanted [facility] 04-01-2017 tetanus toxoid, redu olga diphtheria toxoid, and acellular pertussis vaccine, adsorbed [facility] 04-01-2017 influenza virus vacc ine, unspecified formulation Sandra Church CNP Work Phone: [facility] 10-15-2016 Human Papillomavirus 9-valent vaccine [facility] 06-11-2016 Human Papillomavirus 9-valent vaccine [facility] 03-22-2016 hepatitis A vaccine, pediatric/adolescent dosage, 2 dose schedule [facility] 03-22-2016 Human Papillomavirus 9-valent vaccine [facility] 03-22-2016 influenza, injectabl e, quadrivalent, preservative free [facility] 03-22-2016 meningococcal polysaccharide (groups A, C, Y and W-135) diphtheria toxoid conjugate vaccine (MCV4P) [facility] 03-22-2016 meningococcal vaccin e of unknown formulation and unknown serogroups Ric Lantigua [place], [place] 07-14-2012 influenza, injectabl e, quadrivalent, preservative free [facility] 07-14-2012 influenza, seasonal, injectable [facility] 03-15-2005 diphtheria, tetanus toxoids and acellular pertussis vaccine [facility] 03-15-2005 diphtheria, tetanus toxoids and acellular pertussis vaccine, unspecified formulation [facility] 03-15-2005 measles, mumps and rubella virus vaccine [facility] 03-15-2005 poliovirus vaccine, inactivated [facility] 06-09-2001 diphtheria, tetanus toxoids and acellular pertussis vaccine [facility] 06-09-2001 diphtheria, tetanus toxoids and acellular pertussis vaccine, unspecified formulation [facility] 06-09-2001 varicella virus vaccine [facility] [place] 04-19-2001 diphtheria, tetanus toxoids and acellular pertussis vaccine [facility] 03-12-2001 haemophilus influenz ae type b conjugate and Hepatitis B vaccine [facility] 03-12-2001 haemophilus influenz ae type b vaccine, PRP-T conjugate [facility] 03-12-2001 hepatitis B vaccine, pediatric or pediatric/adolescent dosage [facility] 03-12-2001 measles, mumps and rubella virus vaccine [facility] 03-12-2001 poliovirus vaccine, inactivated [facility] 2000 diphtheria, tetanus toxoids and acellular pertussis vaccine [facility] 2000 diphtheria, tetanus toxoids and acellular pertussis vaccine, unspecified formulation [facility] 2000 diphtheria, tetanus toxoids and acellular pertussis vaccine [facility] 2000 diphtheria, tetanus toxoids and acellular pertussis vaccine, unspecified formulation [facility] 2000 haemophilus influenz ae type b conjugate and Hepatitis B vaccine [facility] 2000 haemophilus influenz ae type b vaccine, PRP-T conjugate [facility] 2000 hepatitis B vaccine, pediatric or pediatric/adolescent dosage [facility] 2000 haemophilus influenz ae type b conjugate and Hepatitis B vaccine [facility] 2000 haemophilus influenz ae type b vaccine, PRP-T conjugate [facility] 2000 poliovirus vaccine, inactivated [facility] 2000 diphtheria, tetanus toxoids and acellular pertussis vaccine [facility] 2000 diphtheria, tetanus toxoids and acellular pertussis vaccine, unspecified formulation [facility] 2000 haemophilus influenz ae type b conjugate and Hepatitis B vaccine [facility] 2000 haemophilus influenz ae type b vaccine, PRP-T conjugate [facility] 2000 hepatitis B vaccine, pediatric or pediatric/adolescent dosage [facility] 2000 poliovirus vaccine, inactivated [facility] Payers Date Payer Category Payer Medicaid (Managed Care) [facility]ICA[facility] [id number] 2024 Self-pay 2023 Unknown [id number] 2022 Unknown [id number] 2019 Unknown [address] [facility] HMO/MEGHNA/ MEGHNA PLUS/CHOICE PLUS xxxxxxxxx 2017-Present [id number] 2017 Unknown [id number] 2000 Unknown [id number] 2.16.840.1.122736.3.579.2. 185 2000 Unknown [id number] 2.16.840.1.002823.3.579.2. 903 2000 Unknown [id number] 2.16.840.1.845382.3.579.2. 356 2000 Unknown [id number] 2.16.840.1.620881.3.579.2. 1069 2000 Unknown [id number] 2.16.840.1.186311.3.579.2. 1069 2000 Unknown [id number] 2.16.840.1.919964.3.579.2. 1069 2000 Unknown [id number] 2.16840.1.605859.3.579.2. 902 2000 Unknown [id number] 2.840.1.168686.3.579.2. 479 2000 Unknown [id number] 2.16840.1.194792.3.579.2. 174 2000 Unknown [id number] 2.16840.1.735575.3.579.2. 174 2000 Unknown [id number] 2.16840.1.412086.3.579.2. 903 2000 Unknown [id number] 2.16840.1.448497.3.579.2. 902 2000 Unknown [id number] 2.16.840.1.214158.3.579.2. 902 Unknown [id number] 2.16.840.1.118680.3.579.2. 462 Unknown [id number] 2.16.840.1.487157.3.579.2. 462 Unknown [id number] 2.16.840.1.220155.3.579.2. 462 Unknown [id number] 2.16840.1.993412.3.579.2. 462 Unknown [id number] 2.16.840.1.250195.3.579.2. 462 Unknown [id number] 2.16.840.1.473003.3.579.2. 462 Unknown [id number] 2.16.840.1.077841.3.579.2. 462 Unknown [id number] 2.16.840.1.428796.3.579.2. 462 Unknown [id number] 2.16.840.1.160636.3.579.2. 462 Unknown [id number] 2.16.840.1.209325.3.579.2. 462 Unknown [id number] 2.16.840.1.903283.3.579.2. 462 Unknown [id number] 2.16.840.1.583667.3.579.2. 462 Unknown [id number] 2.16.840.1.817432.3.579.2. 462 Unknown [id number] 2.16840.1.905460.3.579.2. 462 Unknown [id number] 2.16.840.1.603100.3.579.2. 462 Unknown [id number] 2.16.840.1.612330.3.579.2. 462 Unknown [id number] 2.16.840.1.494744.3.579.2. 462 Unknown [id number] 462 Unknown [id number] 462 Unknown [id number] [id number]. 462 Unknown [id number] [id number]. 462 Unknown [id number] [id number]. 462 Unknown [id number] 2.16.840.1.544853.3.579.2. 462 Unknown [id number] [id number]. 462 Unknown [id number] [id number]. 462 Unknown [id number] [id number]. 462 Social History Date Type Detail Facility Start: 11-19-2018 End: 10-18-2022 Tobacco smoking status NHIS Never smoker [facility] Start: 11-05-2018 End: 08-14-2019 History SDOH Alcohol Frequency 1 [facility] Start: 2000 Sex Assigned At Not on file [facility] Start: 02-11-2019 End: 09-22-2024 Alcohol intake Lifetime non-drinker (finding) [facility] Exposure to SARS-CoV -2 (event) Unable to assess [facility] [place] Start: 10-08-2022 End: 10-18-2022 Exposure to SARS-CoV-2 (event) Not sure [facility] Tobacco smoking consumption unknown [facility] Tobacco [facility] Comment on above: denies. Start: 11-10-2018 End: 02-05-2020 Sex Assigned At Female [facility] Start: 04-11-2022 End: 10-18-2022 Tobacco use and exposure Smokeless tobacco non-user [facility] Start: 10-18-2022 End: 10-12-2024 Alcohol intake Current drinker of alcohol (finding) [facility] Start: 11-10-2018 End: 02-05-2020 History of Social function [facility] How often to you hav e a drink containing alcohol? Never [facility] Average Number of Drinks Not on file [facility] Start: 10-18-2022 Alcohol Comment weekends [facility] Start: 11-05-2018 Gender identity Identifies as female gender (finding) [facility] Start: 11-19-2018 Sexual orientation Heterosexual (sobeida ibrahim) [facility] Start: 04-16-2024 [facility] Start: 2000 Sex assigned at Female [facility] Start: 08-04-2012 End: 10-20-2024 Sex Female (finding) [facility] Start: 05-14-2024 Tobacco smoking stat us NHIS Ex-smoker (finding) [facility] Goals Date Patient Goal Desired Activity [...] Assessment Result Facility 01-27-2022 Functional Status N/A [facility] 12-31-2021 Functional Status N/A [facility] Clinical Notes 12-31-2021 to 12-15-2024 Sandra Church VP [employer] - 10/12/2024 10:29 AM EDT Note Date & Type Note Facility 12-15-2024 Progress note [facility] 12-14-2024 Radiology Diagnostic study note [facility] Imaging Services [address] [place] [address] OB Limited With Biometrics MR#: [id number] Acct: [id number] Name: AIMEE REDDY Rep #: [id number] : 2000 F 24 From: Speedy Lopez MD PCP: Care Physician,No Primary Status: REG CLI Study:OB Limited With Biometrics Date of Exam : 12/11/24 Exam# [id number] Ordering Dr: Leonor Phillips MD PROCEDURE: OB [...] with the normal expected range. Reading Location: [id number] CC: Dr. Leonor Phillips MD; No Primary Care Physician ~ Freight Agent: Signed [facility] 12-09-2024 Progress note [facility] 11-25-2024 Progress note [facility] 10-12-2024 Note Patient Name: [facility] Location: Aimee [place] [address] [place] [id number] Date Of : Date Of Visit: 2000 10/12/2024 MRN# Provider: [id number] Sandra Church CNP Chief Complaint Patient presents with Sore Throat ST, Fatigue, Cough x 7 days exposed to mono Assessment & Plan 1. Sore throat POC Strep A - Molecular POC Infectious Mononucleosis Antibody 2. Viral pharyngitis No follow-ups on file. Medical Decision Making Strep was (-) and reviewed - Valley was (-) and reviewed. She is to [...] or SOB. Was seen last week in [place] ED for same thing and FLU and Strep was done and negative. She states that he has no fevers and no rashes. She is now concerned for Valley as she reports exposure. She denies any abdominal pain Review Of Systems Review of Systems HENT: Positive for sore throat. Respiratory: Positive for cough. Medical History Past Medical History: Diagnosis Date Environmental allergies Migraine Sepsis (HCC) 2018 due to UTI Syncope Past Surgical History: Procedure Laterality Date COLONOSCOPY N/A 02/24/2019 Procedure: COLONOSCOPY with biopsy; Surgeon: Sergio Gray MD; [place] [facility]; Service: General Surgery EGD N/A 02/24/2019 Procedure: ESOPHAGOGASTRODUODENOSCOPY with biopsy; Surgeon: Sergio Gray MD; [place] [facility]; Service: General Surgery SPLENECTOMY, TOTAL 2011 [...] ear normal. Nose: Nose normal. Mouth/Throat: Lips: Honalo. Mouth: Mucous membranes are moist. Tongue: No [...] 10:47 AM Result Value Ref Range Infectious Valley Negative Negative Internal Control Pass No orders [...] ON 10/12/2024 10: (more content not included)... [facility] 10-12-2024 History of Present illness Narrative Images from the original note were not included. Patient Name: [facility] [place] Location: Aimee Reddy [address] [place] [id number] Date Of : Date Of Visit: 2000 10/12/2024 MRN# Provider: [id number] Sandra Church CNP Chief Complaint Patient presents with Sore Throat ST, Fatigue, Cough x 7 days exposed to mono Assessment & Plan 1. Sore throat POC Strep A - Molecular POC Infectious Mononucleosis Antibody 2. Viral pharyngitis No follow-ups on file. Medical Decision Making Strep was (-) and reviewed - Valley was (-) and reviewed. She is to [...] or SOB. Was seen last week in [place] ED for same thing and FLU and Strep was done and negative. She states that he has no fevers and no rashes. She is now concerned for Valley as she reports exposure. She denies any abdominal pain Review Of Systems Review of Systems HENT: Positive for sore throat. Respiratory: Positive for cough. Medical History Past Medical History: Diagnosis Date Environmental allergies Migraine Sepsis (HCC) 2019 due to UTI Syncope Past Surgical History: Procedure Laterality Date COLONOSCOPY N/A 02/24/2019 Procedure: COLONOSCOPY with biopsy; Surgeon: Sergio Gray MD; [place] [facility]; Service: General Surgery EGD N/A 02/24/2019 Procedure: ESOPHAGOGASTRODUODENOSCOPY with biopsy; Surgeon: Sergio Gray MD; [place] [facility]; Service: General Surgery SPLENECTOMY, TOTAL 2011 [...] ear normal. Nose: Nose normal. Mouth/Throat: Lips: Honalo. Mouth: Mucous membranes are moist. Tongue: No [...] 10:47 AM Result Value Ref Range Infectious Valley Negative Negative Internal Control Pass No orders [...] for this visit. documented in this encounter [facility] 09-23-2024 Progress note [facility] 09-23-2024 Radiology Diagnostic study note [facility] Imaging Services [address] [place], [place] [id number] OB Limited With Biometrics MR#: [id number] Acct: [id number] Name: AIMEE REDDY Rep #: [id number] : 2000 F 24 From: Symone Cabrales MD PCP: Status: ADM IN Study:OB Limited With Biometrics Date of Exam : 09/23/24 Exam# [id number] Ordering Dr: Leonor Phillips MD EXAM: US [...] single live intrauterine as above. Reading Location: [facility] CC: Dr. Leonor Phillips MD ~ Freight Agent: Signed [facility] 09-23-2024 Progress note Note Date/Time September 23, 2024 12:57pm [facility] Medical Records Department [address] [facility] [place] [address] Progress Note - OBGYN 09/23/24 0659 MR#: [id number] Acct: [id number] Name: AIMEE REDDY Rep #:[id number] : 2000 24 From: Leonor reed MD PCP: Status:ADM IN Location: [id number] Subjective Subjective feeling better no back pain [...] of normal first , second trimester COMMENT: [id number], TERESITA 12/29/24, girl Guerrero Gutierrez (3) : QUALIFIERS: Weeks of gestation: 20 weeks Qualified Code(s): Z3A.20 - 20 weeks gestation of COMMENT: LR NIPT Carrier Neg. 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 09/22/24 1735 MR#: [id number] Acct: [id number] Name: AIMEE REDDY Rep #:[id number] : 2000 24 From: Mimi Thomas DO PCP: Status:ADM ASMITA Location: [place] [address] HPI - General General Date of Admission: 09/22/24 HPI Narrative AIMEE REDDY, is a 24 y/o @ 24 weeks 5 days who presents to [facility] from [facility] with the diagnosis of acute pyelonephritis [...] current occupational status: employed current occupation: [employer] pets and animals: Yes pets and animals: [...] activity do you participate in: none ana m/pentecostalism: Jain seatbelt use: always do you feel safe [...] if urine culture was sent at [facility] - will order repeat rpt cbc [...] of normal first , second trimester COMMENT: [id number], TERESITA 12/29/24, girl Guerrero Gutierrez (4) : QUALIFIERS: Weeks of gestation: 20 weeks Qualified Code(s): Z3A.20 - 20 weeks gestation of COMMENT: LR NIPT Carrier Neg. Carrier for Cystic Fibrosis;FOB Karen Wilber negative 09/22/24 1744 <Electronically signed by Mimi Thomas DO> Cosigner Signature (if applicable): CC: Dr. 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 09/22/24 1735 MR#: [id number] Acct: [id number] Name: AIMEE REDDY Rep #:[id number] : 2000 24 From: Mimi Thomas DO PCP: Status:ADM ASMITA [facility] - General General Date of Admission: 09/22/24 HPI Narrative AIMEE REDDY, is a 24 y/o @ 24 weeks 5 days who presents to [facility] from [facility] with the diagnosis of acute pyelonephritis [...] family current occupational status: employed current occupation: [employer] pets and animals: Yes pets and animals: [...] activity do you participate in: none ana m/pentecostalism: Jain seatbelt use: always do you feel safe [...] unsure if urine culture was sent at [facility] - will order repeat rpt cbc [...] of normal first , second trimester COMMENT: [id number], TERESITA 12/29/24, girl Guerrero Gutierrez (4) : QUALIFIERS: Weeks of gestation: 20 weeks Qualified Code(s): Z3A.20 - 20 weeks gestation of COMMENT: LR NIPT Carrier Neg. Carrier for Cystic Fibrosis;FOB Karen Nassareck negative 09/22/24 0356 Cosigner Signature (if applicable): CC: Dr. Mimi Thomas, DO~ Signed [facility]04-01-2025 Evaluation note* Diagnosis Onset Date Resolution [...] [facility] Work Phone: 1(379) 960-384804-01-2025 Evaluation note* Diagnosis Onset Date Resolution Status [...] normal first acute January 07, 2025 11:20am [facility] Work Phone: 1(390) 956-694803-05-2025 Evaluation note* Diagnosis Onset Date Resolution Status [...] first acute November 25, 2024 9 :51am [facility] Work Phone: 1(324) 806-735603-05-2025 Evaluation note* Diagnosis Onset Date Resolution Status [...] [facility] Work Phone: 1(672) 189-114103-05-2025 Evaluation note* Diagnosis Onset Date Resolution Status [...] [facility] Work Phone: 1(535) 300-737603-05-2025 Evaluation note* Diagnosis Onset Date Resolution Status [...] 2024 3:19pm Cystic fibrosis carrier acute J ilvia2024 3:19pm History of total splenectomy acute December 23, 2024 3:19pm acute December 23, 2024 3:19pm Pyelonephritis affecting acute December 23, 2024 3 :19pm Supervision of normal first acute December 23, 2024 3 :19pm [facility] Work Phone: 1(152) 980-639902-04-2025 Evaluation note* Diagnosis Onset Date Resolution Status [...] first acute November 11, 2024 9 :26am [facility] Work Phone: 1(570) 798-681202-04-2025 Evaluation note* Diagnosis Onset Date Resolution Status [...] [facility] Work Phone: 1(211) 840-902901-08-2025 Evaluation note* Diagnosis Onset Date Resolution Status [...] normal first acute October 15, 2024 9:51am [facility] Work Phone: 1([phone]) 745-792312-06-2024 Evaluation note* Diagnosis Onset Date Resolution Status [...] normal first acute September 22, 2024 4:45pm [facility] Work Phone: 1(123) 300-724504-27-2023 Instructions* Patient Instructions* Mary Romero CNP - [...] sent through Care Everywhere. * Bacterial Vaginosis (Pakistani) documented in this [id number] History of Present illness Narrative* Mary Romero CNP - 10/18/2022 4:16 PM EDT Images from the original note were not included. Patient Name: [facility] Location: [place]imee Reddy [address] [place] [phone] Date Of : Date Of Visit: 2000 10/18/2022 MRN# Provider: [id number] Mary Romero CNP Chief Complaint Patient presents [...] STD. See H&P Informed of need for river expedition guide. Client agreeable. Wet Preparation Chlamydia, Gonorrhea Additional [...] with biopsy; Surgeon: Sergio Gray MD; [place] [facility]; Service: General Surgery EGD N/A 02/24/2019 Procedure: ESOPHAGOGASTRODUODENOSCOPY with biopsy; Surgeon: Sergio Gray MD; [place] [facility]; Service: General Surgery SPLENECTOMY, TOTAL 2011 [...] nursing note reviewed. Exam conducted with a river expedition guide present (Sherri TIJERINA). Constitutional: General: She is [...] Please consider vaping cessation. documented in this [id number] History of Present illness Narrative* Verenice Sinha PA-C - 10/18/2022 2:51 PM EDT Images from the original note were not included. Patient Name: [facility] Location: [address] [facility] [phone] Date Of : Date Of Visit: 2000 10/18/2022 MRN# Provider: [id number] Verenice Sinha PA-C Video Visit Video Visit [facility] [address] [facility] [address] Via Real-time Synchronous Audiovisual [facility] 09/08/2021 Verenice Sinha PA-C Provider Location: [place] Patient Location Balloon Design Printer: None Patient Location: Patient's Home Patient: Aimee [...] that there are some limitations compared to ihio-qn-mzeu evaluations. We elected to proceed. Chief Complaint Patient presents with Vaginal Discharge Odor, 2wks after menstrual cycle. Assessment & Plan 1. Vaginal Odor No follow-ups on file. Pt agrees to go to [facility] for in person visit with provider [...] with biopsy; Surgeon: Sergio Gray MD; [place] [facility]; Service: General Surgery EGD N/A 02/24/2019 Procedure: ESOPHAGOGASTRODUODENOSCOPY with biopsy; Surgeon: Sergio Gray MD; [place] [facility]; Service: General Surgery SPLENECTOMY, TOTAL 2011 [...] file for this visit. documented in this [id number] Hospital Discharge instructions Patient Education 01/27/2022 19:01:10 Urinary Tract Infection, Adult, Nmtq-pn-Uewv Urinary Tract Infection, Adult A urinary tract [...] Follow these instructions at home: Medicines Take oekd-kjp-vdhhipw and prescription medicines only as told by [...] 11/26/2008 Document Revised: 05/28/2019 Document Reviewed: 12/18/2018 [employer] Patient Education 2019 ALOSKO. Follow Up Care 01/27/2022 16:01:49 With:Tye Arora MD, NEU Address: [address] [place] [address] [place] [address]- When:01/30/2022 With:Britt Aguilar MD Address: [address] [place] [address]- When:01/30/2022 [facility]08-06-2022 Evaluation + Plan note Diagnostic Tests Pending * Urine Culture 01/27/22 [facility]07-10-2022 Hospital Discharge instructions Patient Education 12/31/2021 19:45:50 Seizure, Adult, Qhcp-dx-Icmb Seizure, Adult A seizure is a sudden [...] Follow these instructions at home: Medicines Take vjtc-zak-vwndare and prescription medicines only as told by [...] [place] ask your local DMV (department of [place] vehicles) when you can drive. Get plenty [...] 11/26/2008 Document Revised: 08/28/2019 Document Reviewed: 08/28/2019 [employer] Patient Education 2020 ALOSKO. Follow Up Care 12/31/2021 18:36:34 With:Tye Arora Address: [address] [place] [address] [place] [address] Business (1) When:01/03/2022 19:26:51 With:Britt Aguilar Address: [address] [place] [address] [place] [address] Business (1) When:Within 3 Day(s) [facility]07-10-2022 Evaluation + Plan noteExtracted from: Title:ED Note Author:Ji Grimes DO Date :12/31/21 Recurrent episodes of unresp onsiveness (R41.89: Other symptoms and signs involving cognitive functions and awareness) [facility] Diagnosis Vaginal Odor- Primary Leukorrhea, not specified as infective [facility] Diagnosis Acute vaginitis- Primary Unspecified vaginitis and vulvovaginitis Vaginal odor Unspecified symptom associated with female genital organs Screening examination for STD (sexually transmitted disease) Electronic cigarette use [facility] Diagnosis Abdominal pain, left upper quadrant- Primary documented in this encounter [facility] note* Diagnosis Acute pyelonephritis- Primary Acute pyelonephritis without lesion of renal medullary necrosis documented in this encounter [facility] note* Diagnosis Sepsis, due to unspecified organism- Primary Environmental allergies Other allergy, other than to medicinal agents Body mass index (BMI) of 5th to less than 85th percentile for age in patient 18 years to less than 21 years of age Syncope, unspecified syncope type- Primary Palpitations Sore throat- Primary Acute pharyngitis Viral pharyngitis Acute pharyngitis [facility] Narrative No data available for this section [facility] Discharge instructions* Attachments The following attachments cannot be sent through Care Everywhere. * : Abdominal Pain (Pakistani) * Abdominal Pain (Pakistani) [facility]* Attachments The following attachments cannot be sent through Care Everywhere. * Pyelonephritis (Pakistani) * : UTI (Urinary Tract Infection) (Pakistani) [facility] Attachments The following attachments cannot be sent through Care Everywhere. * Sore Throat (Pakistani) documented in [facility]Health[facility] note No data available for this section [facility] Author Ramya Voss [facility] Note Date/Time November 25, 2024 10:17 am [facility] [address] [place] [address], [address] [place] [address] OFFICE VISIT Date of Service: 11/25/24 MR#: [id number] Acct: [id number] Name: AIMEE REDDY Rep #: [id number] : 2000 Provider: ANDREW Voss Age/Sex: 24/F [place] [facility] [place]: Signed Intake Vital Signs 07/01/24 09:26 11/11/24 09:33 11/25/24 09:57 Height 5 ft 4 in 5 ft 4 in 5 ft 4 in Weight: 144 lb 146 lb 2 oz BMI 24.7 25.0 BP 117/76 112/82 H Intake Visit Reasons: 34wk ob Chief Complaint: 34 Week OB Braiding Machine Operator Required: No Is patient in pain?: No [...] family current occupational status: employed current occupation: [employer] pets and animals: Yes pets and animals: [...] activity do you participate in: none ana m/pentecostalism: Jain seatbelt use: always do you feel safe [...] Monitoring, Signs and Symptoms of Preeclampsia and [place] Education ROS Const Reports system reviewed and [...] of normal first , third trimester Comment: [id number], TERESITA 12/29/24, girl Guerrero Gutierrez (2) : [...] 11/25/24 1017 <Electronically signed by Ramya gallegos SITE RELIABILITY ENGINEER SITE RELIABILITY ENGINEER-C> Date _ Ramya Altoona SITE RELIABILITY ENGINEER SITE RELIABILITY ENGINEER-C Cosigner Signature: Date (if applicable) CC: ~ [facility] Work Phone: Progress note Author Leonor Phillips [facility] Note Date/Time December 09, 2024 9:55 am [facility] [address] [place] [address], [address] [place] [address] OFFICE VISIT Date of Service: 12/09/24 MR#: [id number] Acct: [id number] Name: AIMEE REDDY Rep #: [id number] : 2000 Provider: Dr. Cecil Phillips MD Age/Sex: 24/F [place] [facility] Status: Signed Intake Vital Signs 07/01/24 09:26 11/25/24 09:57 12/09/24 09:26 12/09/24 09:30 Height 5 ft 4 in 5 ft 4 in 5 ft 4 in 5 ft 4 in Weight: 148 lb 2 oz BMI 25.4 BP 127/76 H Intake Visit Reasons: 36wk ob Braiding Machine Operator Required: No Is patient in pain?: No [...] activity do you participate in: none ana m/pentecostalism: Jain seatbelt use: always do you feel safe [...] of normal first , third trimester Comment: [id number], TERESITA 12/29/24, girl Guerrero Gutierrez (5) Cystic fibrosis carrier: Status: Acute Comment: FOB neg. 06/04 (6) : Status: Acute Qualifiers: Weeks of gestation: 35 weeks Qualified Code(s): Z3A.35 - 35 weeks gestation of Comment: LR NIPT Carrier Neg. Carrier for Cystic Fibrosis;FOB Karen Merino negative, nl anatomy Orders: Orders POC Urinalysis 2 Dip (Clinic) Today 12/09/24 1428 <Electronically signed by Leonor desir MD> Date _ Leonor Phillips MD Cosigner Signature: Date (if applicable) CC: ~ [facility] Work Phone: Progress note Author Leonor Phillips [facility] Note Date/Time December 15, 2024 10:1 6am [facility] [address], [address] [place] [address] OFFICE VISIT Date of Service: 12/15/24 MR#: [id number] Acct: [id number] Name: AIMEE REDDY Rep #: [id number] : 2000 Provider: Dr. Cecil Phillips MD Age/Sex: 24/F [place] [facility] Status: Signed Intake Vital Signs 07/01/24 09:26 12/09/24 09:30 12/15/24 09:36 Height 5 ft 4 in 5 ft 4 in 5 ft 4 in Weight: 152 lb BMI 26.1 BP 125/82 H Intake Visit Reasons: 37wk ob Braiding Machine Operator Required: No Is patient in pain?: No [...] current occupational status: employed current occupation: [employer] pets and animals: Yes pets and animals: [...] activity do you participate in: none ana m/pentecostalism: Jain seatbelt use: always do you feel safe [...] Monitoring, Signs and Symptoms of Preeclampsia and [place] Education ROS Const Denies fever(s) GI Reports [...] of normal first , third trimester Comment: [id number], TERESITA 12/29/24, girl Guerrero Gutierrez (6) : [...] Cosigner Signature: Date (if applicable) CC: ~ [facility] Work Phone: Reason for referral (narrative)No reason for referral information availableWMercy Health [facility] Work Phone: Instructions * Patient Instructions* [...] your Care Team: Provider: Chintan Ling MD LOCATED [facility]IN [facility] Nurse: Rosalind Cornejo RN In case of an emergency please call 911. REFILLS: When in need for refills please call your care team or the office at [phone]. Please include medication name, pharmacy name, and [...] look into their status. Customer Service/Billing Questions: [phone] [facility] Assistance: [phone] or [phone] Financial Assistance: [phone] or [phone] As of June 29, 2019 my schedule [...] worse. When should you call for help? [id number] anytime you think you may need emergency [...] Log into your personal health record on [email or web address] and enter Q913 in the Education box to learn more about Learning About Postural Orthostatic Tachycardia Syndrome (POTS). Current as of: June 08, 2019 Content Version: 12.5 [employer]. Care instructions adapted under license by your healthcare professional. If you have questions about a medical condition or this instruction, always ask your healthcare professional. [employer] disclaims any warranty or liability for your [...] been followed closely by a PCP or generator rebuilder. She denies any complaints or needs today. [...] EXAMINATION Patient Name: Aimee Reddy MR #: [id number] : 2000 Physicians: Jennifer Haley CNP (Family); [...] file Gets together: Not on file Attends cheondoism service: Not on file Active member of [...] 12/29/2019 9:25 AM EDT OFFICE CONSULTATION NOTE [facility] [address] [facility] [address] [facility] [id number] Physicians: Jennifer Haley CNP (Family); Kenn Valdez MD (Referring) Subjective: Aimee Reddy is a 19 y.o. female seen in the office today for Syncope (s/p d/c [facility] ED for syncopal event 12/22. Pt states she has hx of syncope since about the second grade. She didhave a cardiac work up and [facility] in 2017. 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 She denies any orthopnea or paroxysmalnocturnal dyspnea. [...] with biopsy; Surgeon: Sergio Gray MD; [place] [facility]; Service: General Surgery EGD N/A 02/24/2019 Procedure: ESOPHAGOGASTRODUODENOSCOPY with biopsy; Surgeon: Sergio Gray MD; Location[place] [facility]; Service: General Surgery SPLENECTOMY, TOTAL 2011 [...] years and was worked up by her generator rebuilder in 2016. She had EKG, Holter monitor, [...] November 2019 while she finished working at [employer] going to the basement to the parking [...] She finished high school and works at [employer]. The following portions of the patient's history [...] or abnormal muscle tone. Coordination: Coordination normal. Lzybvl-Zszo-Pietiv Test normal. Gait: Gait is intact. Gait [...] prevent her from passing out like hand black top roller and armtensing or leg crossing and tensing [...] Portions of this chart was created using [employer] voice recognition software. Occasional wrong-word or sound-like [...] Salamanca - 11/09/2018 11:50 AM EDT 11/09/18 0229 Clinical Encounter Type Visit Type Non Crisis Non Crisis Visit Follow-up Visited With Patient and family together Visit Length (minutes) 1-15 Patient Spiritual Assessment Spiritual Assessed Yes Confucianism Affiliation Mandaeism Patient Spiritual Resilience Sense of Hope Family Spiritual Encounters Family Coping Accepting;Open/discussion Family Normalization 4 Family Participation in Care 5 Family Support During Treatment 5 Spiritual Health Services Progress Note Type of Visit: Follow Up Date of Visit: 11/09/2018 Clinical Encounter Type: Visited With: patient and family Continue Visiting: no Confucianism Encounters: Confucianism Needs: Other: None at this time; prn. Situation: Follow up on patient's medical condition and disposition; as well as mother's emotional status. Background: Patient and mother tearful and distressed over illness. Assessment: Patient is in good spirits; smiling; and pleased with healing progress. Mother is content and expressing gratitude for Product Support Engineer's concern and visit. Recommendation: Offered words of encouragement, spiritual, and emotional support. Kajal Salamanca MDiv. Assoc. Product Support Engineer Ext. [phone] * Kajal Salamanca - 11/09/2018 10:15 AM EDT 11/09/18 0838 Clinical Encounter Type Visit Type Non Crisis Non Crisis Visit Follow-up Visited With Patient not available Spiritual Health Services Progress Note Type of Visit: Follow Up Date of Visit: 11/09/2018 Clinical Encounter Type: Visited With: Patient asleep. Continue Visiting: yes Confucianism Encounters: Confucianism Needs: Other: Spiritual and emotional support. Situation: Follow up. Background: Patient tearful during initial encounter. Assessment: Patient resting. Recommendation: Will follow up. Kajal Salamanca MDiv. Assoc. Product Support Engineer Ext. [phone] * Symone Salamancajowayne Coley - 11/08/2018 3:21 PM EDT 11/08/18 1505 Clinical Encounter Type Visit Type Non Crisis Non Crisis Visit Rounding Visited With Patient and family together Visit Length (minutes) 1-15 Patient Spiritual Assessment Spiritual Assessed Yes Confucianism Affiliation Mandaeism Patient Spiritual Distress Sense of [place] Spiritual needs Prayer Family Spiritual Encounters Family Coping Anxiety Family Participation in Care 4 Family Support During Treatment 5 Spiritual Health Services Progress Note Type of Visit: Initial Date of Visit: 11/08/2018 Clinical Encounter Type: Visited With: patient and family Continue Visiting: yes Confucianism Encounters: Confucianism Needs: Prayer and Supportive Listening Situation: Visited patient during afternoon rounds. Background: Anabaptist/Mandaeism ana m foundations. Assessment: Patient is tearful and afraid. This hospital admission and the diagnosis of sepsis has caused the patient to have a sense of brokenness; not expecting to deal with this illness and tests required. Patient's mother is present and very supportive. Mother demonstrates some anxiety and becomes tearful as well. Product Support Engineer's words of encouragement seemed to give them both a sense of hope. Recommendation: Offered emotional and spiritual support. Will follow up. Kajal Salamanca MDiv. Assoc. Product Support Engineer Ext. [phone] * Brissa Dumont MD - 11/08/2018 2:40 PM EDT [facility] Medicine Inpatient Follow-up 11/08/2018 Brissa Dumont MD [facility] Patient: Aimee Reddy Date of : 2000 [...] Jacobsen MD - 11/07/2018 12:04 PM EDT [facility] Medicine Inpatient Follow-up 11/07/2018 Anupam Jacobsen MD [facility] Patient: Aimee Reddy Date of : 2000 [...] Jacobsen MD - 11/06/2018 12:39 PM EDT [facility] Medicine Inpatient Follow-up 11/06/2018 Anupam Jacobsen MD [facility] Patient: Aimee Reddy Date of : 2000 [...] RN with Rapid Response and Magda Crisostomo SITE RELIABILITY ENGINEER notified and at the bedside. * [...] EXAMINATION Patient Name: Aimee Reddy MR #: [id number] [facility] #: [id number] : 2000 Physicians: Jennifer Haley CNP (Family); [...] with biopsy; Surgeon: Sergio Gray MD; [place] [facility]; Service: General Surgery EGD N/A 02/24/2019 Procedure: ESOPHAGOGASTRODUODENOSCOPY with biopsy; Surgeon: Sergio Gray MD; Location[place] [facility]; Service: General Surgery SPLENECTOMY, TOTAL 2011 [...] file Gets together: Not on file Attends cheondoism service: Not on file Active member of [...] found for: LIPASE Surgical Pathology Report Case: [id number] Authorizing Provider: Sergio Gray MD Collected: 02/24/2019 08:34 AM Ordering Location: [facility] Surgery Received: 02/24/2019 12:01 PM Center Periop [...] SRIKANTH office visit. Patient sent letter via Gratci. Future Appointments Date Time Provider Department Center [...] Documents on File Type Date Recorded Patient Infant Nanny Expl anation Advance Directives and Livin g Will 11/05/2018 2:57 PM Latest Code Status on File Code Status Date Activated Date Inactivated Comments Full Code 11/05/2018 3:35 PM Documents on File Type Date Recorded Patient Infant Nanny Expl anation Advance Directives and Livin g Will 01/28/2019 12:10 AM Latest Code Status on File Code Status Date Activated Date Inactivated Comments Full Code 11/05/2018 3:35 PM 01/27/2019 10:48 PM Documents on File Type Date Recorded Patient Infant Nanny Expl anation Advance Directives and Livin g Will 02/11/2019 7:09 AM Documents on File Type Date Recorded Patient Infant Nanny Expl anation Advance Directives and Living Will Power of Manager Of Engineering Documents on File Type Date Recorded Patient Infant Nanny Expl anation Advance Directives and Livin g Will 12/23/2019 12:00 AM Latest Code Status on File Code Status Date Activated Date Inactivated Comments Full Code 11/05/2018 3:35 PM 01/27/2019 10:48 PM Documents on File Type Date Recorded Patient Infant Nanny Expl anation Advance Directives and Livin g Will 12/23/2019 12:00 AM Documents on File Type Date Recorded Patient Infant Nanny Expl anation Advance Directives and Livin g Will 01/01/2020 6:03 AM Documents on File Type Date Recorded Patient Infant Nanny Expl anation Advance Directives and Livin g Will 02/24/2019 7:27 AM Documents on File Type Date Recorded Patient Infant Nanny Expl anation Advance Directives and Livin g Will 01/28/2019 12:10 AM Documents on File Type Date Recorded Patient Infant Nanny Expl anation Advance Directives and Livin g [...] Hepatobiliary With Ejection Fraction Sergio Gray MD [address] [place] [address] [place] [id number] Status Reason Specialty Diagnoses / Procedures Referre d By Contact Referred To Contact Closed Radiology Diagnoses Abdominal pain, unspecified abdominal location Weight loss Nausea Procedures NM Hepatobiliary With Ejection Fraction Sergio Gray MD [address] [place] [address] [place] [address] Status Reason Specialty Diagnoses / Procedures Referred By Contact Referred To Contact Pending Review Cardiology Diagnoses Syncope, unspecified syncope type Palpitations Procedures Cardiac event monitor Chintan Ling MD [address] [place], [place] [id number] Status Reason Specialty Diagnoses / Procedures Referred By Contact Referred To Contact Authorized Neurology Diagnoses Syncope, unspecified syncope type Jennifer Haley, VP [employer] [address] [place] [address] Ernesto Saxena MD [address] [place] [address] Status Reason Specialty Diagnoses / Procedures Referred By Contact Referred To Contact Pending Review Neurology Diagnoses Syncope, unspecified syncope type Procedures EEG (Standard) Julieth Watters MD [address] [place] [address] [address] Status Reason Specialty Diagnoses / Procedures Referred By Contact Referred To Contact Pending Review Radiology Diagnoses Syncope, unspecified syncope type Procedures MR Brain With And Without Contrast Julieth Watters MD [address] [place] [address] [phone] Discharge Instructions * Instructions* Ric Lantigua MD - 12/16/2019 Drink plenty of fluids tomorrow, Tylenol for headaches * Attachments The following attachments cannot be sent through Care Everywhere. * Bruises (Pakistani) * Fainting (Pakistani) documented in this encounter* Instructions* Kenn Valdez MD - 12/23/2019 Please stay very hydrated drink 6 to 8 cups of water a day * Attachments The following attachments cannot be sent through Care Everywhere. * Fainting (Pakistani) documented in this encounter* Discharge Instr - [...] Log into your personal health record on [email or web address] and enter Y798 in the Education box to learn more about Learning About Sepsis. Current as of: March 16, 2018 Content Version: 12.0 [id number] [employer]. Care instructions adapted under license by your healthcare professional. If you have questions about a medical condition or this instruction, always ask your healthcare professional. [employer] disclaims any warranty or liability for your use of this information. documented in this encounter* Attachments The following attachments cannot be sent through Care Everywhere. * Colonoscopy: Pediatric: Pre-op (Pakistani) * Abdominal Pain: Pediatric (Pakistani) * GI Bleed: Pediatric (Pakistani) documented in this encounter Hospital Course * Brissa Dumont MD - 11/09/2018 12:10 PM EDT DISCHARGE SUMMARY Patient: Aimee Reddy Date of : 2000 Site: [facility] Family Provider: Jennifer Haley CNP Admit Date: [...] Physician(s) Family Provider: Jennifer Haley CNP, Address: [address] [place] [address] / [facility] [address] Follow Up: No follow-up provider specified. Additional [...] 9: 22am Supervision of normal first [facility] 2024 9:22am Cystic fibrosis carrier July 28 8:53am July 28, 2024 8 :53am Supervision of normal first Fe bruary 2024 8:53am Cystic fibrosis carrier August 26, 2024 9:19am August 26, 2024 9:19 am Supervision of normal first [facility] 2024 9:19am Cystic fibrosis carrier September 22, [...] 9:19 am Supervision of normal first [facility] 2024 9:19am Cystic fibrosis carrier September 22, [...] 9:19 am Supervision of normal first [facility] 2024 9:19am Cystic fibrosis carrier September 22, [...] 9:19 am Supervision of normal first [facility] 2024 9:19am Cystic fibrosis carrier September 22, [...] 9:19 am Supervision of normal first [facility] 2024 9:19am Cystic fibrosis carrier September 22, [...] 9:19 am Supervision of normal first [facility] 2024 9:19am Cystic fibrosis carrier September 22, [...] With Ejection Fraction Sergio Gray MD [address] [facility] [address] [place] [address] RADIOLOGY [address] [place] [address] Reason Comments Head Injury Pt states she fainte d at work at approx 1620. Pt hit head, complaining of rt sided head pain. pos LOC pt does not remember incident Loss of Consciousness Reason Comments Seizures near syncopal episod es - states she is unsure if they are seizures or not Reason Comments Syncope s/p d/c [facility] ED for syncopal event 12/22. Pt states she has hx of syncope since about the second grade. She did have a cardiac work up and [facility] in 2017. Information is in Care Everywhere. Status Reason Specialty Diagnoses / Procedures Referred By Contact Referred To Contact Pending Review Cardiology Diagnoses Syncope, unspecified syncope type Kenn Valdez MD [address] [place] [address] Chintan Ling MD [address] [id number] Reason Comments Loss of Consciousness F/U ER VISIT Status Reason Specialty Diagnoses / Procedures Referred By Contact Referred To Contact Pending Review Cardiology Diagnoses Syncope, unspecified syncope type Palpitations Procedures Cardiac event monitor Chintan Ling MD [address] [place] [address] Reason Comments Loss of Consciousness was in [...] Syncope, unspecified syncope type SpringJennifer CNP [address] [place] [address] Ernesto Saxena MD [address] [place] [address] Status Reason Specialty Diagnoses / Procedures Referre d By Contact Referred To Contact Diagnoses Abdominal pain, unspecified abdominal location BRBPR (bright red blood per rectum) Weight loss Nausea Abdominal pain, unspecified abdominal location [R10.9] BRBPR (bright red blood per rectum) [K62.5] Weight loss [R63.4] Nausea [R11.0] Sergio Gray MD [address] [facility] [place] [address] Reason Comments SEPSIS Alert Urinary Tract Infection [...] Toradol was helping. GINGER Frances called and vYrose stated to give tylenol, ibuprophen, toradol more [...] pcp list and chooses dr belle in [place] - per Darling - paperwork from the office is required prior to appointment being made - zac Hastings - paperwork will be given to pt later today and appointment made tomorrow - [facility] following Plan of care updated continue IV [...] section and content) DATE CREATED AUTHOR 12/14/2018 [facility] DATE CREATED AUTHOR AUTHOR'S ORGANIZ ATION 01/12/2020 [facility] DATE CREATED AUTHOR AUTHOR'S ORGANIZ ATION 11/21/2020 [facility] DATE CREATED AUTHOR AUTHOR'S ORGANIZ ATION 02/11/2021 [facility] DATE CREATED AUTHOR AUTHOR'S ORGANIZ ATION 02/17/2022 [facility] DATE CREATED AUTHOR AUTHOR'S ORGANIZ ATION 04/22/2022 [facility] DATE CREATED AUTHOR AUTHOR'S ORGANIZ ATION 07/27/2022 [facility] DATE CREATED AUTHOR AUTHOR'S ORGANIZ ATION 11/03/2022 [facility] DATE CREATED AUTHOR AUTHOR'S ORGANIZ ATION 11/30/2022 [facility] DATE CREATED AUTHOR AUTHOR'S ORGANIZ ATION 03/20/2024 [facility] DATE CREATED AUTHOR AUTHOR'S ORGANIZ ATION 08/08/2024 [facility] DATE CREATED AUTHOR AUTHOR'S ORGANIZ ATION 09/28/2024 [facility] DATE CREATED AUTHOR AUTHOR'S ORGANIZ ATION 10/12/2024 [facility] DATE CREATED AUTHOR AUTHOR'S ORGANIZ ATION 10/14/2024 [facility] DATE CREATED AUTHOR AUTHOR'S ORGANIZ ATION 01/11/2025 [facility] Mohit Eubanks LPN - 12/23/2019 5:26 PM Kenn Baron MD - 12/23/2019 2:42 PM Erika Joaquin RN - 12/23/2019 2:38 PM Erika Joaquin RN - 12/23/2019 2:31 PM EDT ED Notes (unrecognized secti on and content) IV DISCONTINUED CANNULA INTACT DRESSING PLACED, DISCHARGE INSTRUCTIONS REV'D DENIES QUESTIONS, WHEEL CHAIR TO EXIT WITH MOM [facility] ED Attending Note: NAME: Aimee Reddy 19 y.o. CSN: [id number] PCP: Jennifer Haley CNP History: Chief Complaint: [...] with biopsy; Surgeon: Sergio Gray MD; [place] [facility]; Service: General Surgery EGD N/A 02/24/2019 Procedure: ESOPHAGOGASTRODUODENOSCOPY with biopsy; Surgeon: Sergio Gray MD; [place] [facility]; Service: General Surgery SPLENECTOMY, TOTAL 2011 [...] file Gets together: Not on file Attends cheondoism service: Not on file Active member of [...] Colorless, Yellow Clarity, Urine Clear Clear Specific [place] 1.028 (H) 1.005 - 1.025 pH, Urine [...] Syncope, unspecified syncope type Kenn Valdez MD [facility] Emergency Department (Please note that portions of this note have been completed with a voice recognition software. Efforts were made to correct any errors, but occasionally words are mis-transcribed.) Kenn Valdez MD 12/23/19 5643 Mother arrives to bedside Syncopal episode 1 [...] continued plan of care. ED PROVIDER NOTE [facility] EMERGENCY DEPARTMENT NAME: Aimee Reddy AGE: 18 y.o. : 2000 VISIT DATE: 11/05/2018 CSN: [id number] PCP: Physician No Chief Complaint Patient presents [...] Yellow Clarity, Urine Hazy (A) Clear Specific [place] 1.018 1.005 - 1.025 pH, Urine 5.0 [...] OF 0.9% NS INFUSED. ED PROVIDER NOTE [facility] EMERGENCY DEPARTMENT NAME: Aimee Reddy AGE: 18 y.o. 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 Jeffrey Colon DO 01/27/[address] MICHAEL MAY. PT. REPORT REC'D FROM CARL Lopez RN. PT. SITTING QUIETLY ON CART IN ROOM. [facility]. NO DISTRESS NOTED. Pt states cramping [...] Aimee Reddy Admit Date: [id number] MR #: [id number] : 2000 The H&P has been reviewed and the patient has been examined. I concur with the findings of the H&P. There are no significant changes. It is appropriate to proceed with the planned procedure. Sergio Gray MD 02/24/2019 8:25 AM HISTORY & PHYSICAL EXAMINATION Patient Name: Aimee Reddy MR #: [id number] : 2000 Physicians: Jennifer Haley CNP (Family); [...] file Gets together: Not on file Attends cheondoism service: Not on file Active member of [...] Last colonoscopy none documented in this encounter [facility] Medicine Inpatient H&P 11/05/2018 Jt Lewis MD [facility] Patient: Aimee Reddy Date of : 2000 (18 y.o.) PCP: Physician No Assessment Aimee Reddy 18 y.o. female presented with Sepsis secondary to UTI Active Problems: Sepsis (HCC) SNOMED CT(R): SEPSIS Plan: Admit to [facility] clinical condition fair CODE STATUS full [...] Care Team (unrecognized sect ion and content) Right Of Way Cutter Relationship Specialty Start Date End Date No, Physician [facility] PCP - General 04/22/[address] Relationship Specialty Start Date End Date , Physician [facility] PCP - General 04/22/[address] Relationship Specialty Start Date End Date Spring, Jennifer Vasquez APRN VP [employer] PCP - General 11/16/[address] Relationship Specialty Start Date End Date Spring, Jennifer Vasquez APRN - VP [employer] PCP - General 11/16/21 Team Status: Inactive [...] Inactive Member Role Status Dates Ramya Voss SITE RELIABILITY ENGINEER, SITE RELIABILITY ENGINEER-C Attending Provider Active Start: July 01, [...] Inactive Member Role Status Dates Ramya Voss SITE RELIABILITY ENGINEER, SITE RELIABILITY ENGINEER-C Attending Provider Active Start: September 22, [...] Attending Provider Active Start: September 23, [address] Relationship Specialty Start Date End Date No, Physician [facility] PCP - General 04/22/22 Team Status: Active Member Role Status Dates No Primary Care Physician Primary Care Provider Active Team Status: Inactive Member Role Status Dates No Primary Care Physician Primary Care Provider Active Start: October 13, 2024 End: October 13, 2024 Ramya Voss SITE RELIABILITY ENGINEER, SITE RELIABILITY ENGINEER-C Attending Provider Active Start: October 13, 2024 End: October 13, 2024 Ramya Altoona SITE RELIABILITY ENGINEER, SITE RELIABILITY ENGINEER-C Referring Provider Active Start: October 13, [...] 2024 End: October 15, 2024 Ramya Voss SITE RELIABILITY ENGINEER, SITE RELIABILITY ENGINEER-C Attending Provider Active Start: October 15, 2024 End: October 15, 2024 Team Status: Active Member Role Status Dates No Primary Care Physician Primary Care Provider Active Start: October 15, 2024 Ramya Voss SITE RELIABILITY ENGINEER, SITE RELIABILITY ENGINEER-C Attending Provider Active Start: October 15, 2024 Ramya Browns SITE RELIABILITY ENGINEER, SITE RELIABILITY ENGINEER-C Referring Provider Active Start: October 15, 2024 Team Status: Inactive Member Role Status Dates No Primary Care Physician Primary Care Provider Active Start: October 15, 2024 End: October 15, 2024 Ramya Browns SITE RELIABILITY ENGINEER, SITE RELIABILITY ENGINEER-C Attending Provider Active Start: October 15, 2024 End: October 15, 2024 Ramya Altoona SITE RELIABILITY ENGINEER, SITE RELIABILITY ENGINEER-C Referring Provider Active Start: October 15, [...] Inactive Member Role Status Dates Ramya Voss SITE RELIABILITY ENGINEER, SITE RELIABILITY ENGINEER-C Attending Provider Active Start: November 25, [...] 2024 End: November 25, 2024 Ramya Voss SITE RELIABILITY ENGINEER, SITE RELIABILITY ENGINEER-C Attending Provider Active Start: November 25, 2024 End: November 25, 2024 Ramya Voss SITE RELIABILITY ENGINEER, SITE RELIABILITY ENGINEER-C Referring Provider Active Start: November 25, 2024 End: November 25, 2024 Team Status: Active Member Role Status Dates No Primary Care Physician Primary Care Provider Active Start: November 25, 2024 Ramya Voss SITE RELIABILITY ENGINEER, SITE RELIABILITY ENGINEER-C Attending Provider Active Start: November 25, 2024 Ramya Voss SITE RELIABILITY ENGINEER, SITE RELIABILITY ENGINEER-C Referring Provider Active Start: November 25, [...] Inactive Member Role/Relationship Status Dates Ramya Voss SITE RELIABILITY ENGINEER, SITE RELIABILITY ENGINEER-C Attending Provider Active Start: September 22, [...] 2024 End: October 13, 2024 Ramya Voss SITE RELIABILITY ENGINEER, SITE RELIABILITY ENGINEER-C Attending Provider Active Start: October 13, 2024 End: October 13, 2024 Ramya Voss SITE RELIABILITY ENGINEER, SITE RELIABILITY ENGINEER-C Referring Provider Active Start: October 13, [...] 2024 End: October 15, 2024 Ramya Voss SITE RELIABILITY ENGINEER, SITE RELIABILITY ENGINEER-C Attending Provider Active Start: October 15, 2024 End: October 15, 2024 Team Status: Inactive Member Role/Relationship Status Dates No Primary Care Physician Primary Care Provider Active Start: October 15, 2024 End: October 15, 2024 Ramya Voss SITE RELIABILITY ENGINEER, SITE RELIABILITY ENGINEER-C Attending Provider Active Start: October 15, 2024 End: October 15, 2024 Ramya Voss SITE RELIABILITY ENGINEER, SITE RELIABILITY ENGINEER-C Referring Provider Active Start: October 15, [...] Inactive Member Role/Relationship Status Dates Ramya Voss SITE RELIABILITY ENGINEER, SITE RELIABILITY ENGINEER-C Attending Provider Active Start: November 25, [...] 2024 End: November 25, 2024 Ramya Voss SITE RELIABILITY ENGINEER, SITE RELIABILITY ENGINEER-C Attending Provider Active Start: November 25, 2024 End: November 25, 2024 Ramya Voss SITE RELIABILITY ENGINEER, SITE RELIABILITY ENGINEER-C Referring Provider Active Start: November 25, [...] Inactive Member Role/Relationship Status Dates Ramya Voss SITE RELIABILITY ENGINEER, SITE RELIABILITY ENGINEER-C Attending Provider Active Start: September 22, [...] Active Member Role/Relationship Status Dates Dr. Mimi Thomsa DO Admit Provider Active Start: September 23, [...] 2024 End: October 13, 2024 Ramya Voss SITE RELIABILITY ENGINEER, SITE RELIABILITY ENGINEER-C Attending Provider Active Start: October 13, 2024 End: October 13, 2024 Ramya Voss SITE RELIABILITY ENGINEER, SITE RELIABILITY ENGINEER-C Referring Provider Active Start: October 13, [...] 2024 End: October 15, 2024 Ramya Voss SITE RELIABILITY ENGINEER, SITE RELIABILITY ENGINEER-C Attending Provider Active Start: October 15, 2024 End: October 15, 2024 Team Status: Inactive Member Role/Relationship Status Dates No Primary Care Physician Primary Care Provider Active Start: October 15, 2024 End: October 15, 2024 Ramya Voss SITE RELIABILITY ENGINEER, SITE RELIABILITY ENGINEER-C Attending Provider Active Start: October 15, 2024 End: October 15, 2024 Ramya Voss SITE RELIABILITY ENGINEER, SITE RELIABILITY ENGINEER-C Referring Provider Active Start: October 15, [...] Inactive Member Role/Relationship Status Dates Ramya Voss SITE RELIABILITY ENGINEER, SITE RELIABILITY ENGINEER-C Attending Provider Active Start: November 25, [...] 2024 End: November 25, 2024 Ramya Voss SITE RELIABILITY ENGINEER, SITE RELIABILITY ENGINEER-C Attending Provider Active Start: November 25, 2024 End: November 25, 2024 Ramya Voss SITE RELIABILITY ENGINEER, SITE RELIABILITY ENGINEER-C Referring Provider Active Start: November 25, [...] BE BASED ON THE PRIMARY CLINICAL RECORDS. [facility] [employer] [facility]. provides no warranty or guarantee of the accuracy or completeness of information in this document.
[2025-01-13 00:36] LABS: Differential Comment SCANNED; Differential Indicated SCAN CRITERIA MET
[2025-01-13] MEDS: Lactated Ringers 1,000 ML 200 ML IV ×2 (00:36→05:36)
[2025-01-13 00:37] LABS: Syphilis Antibodies Nonreactive (Nonreactive)
[2025-01-13] MEDS: fentaNYL-bupivacaine (epidural) 100 ML BAG EPIDURAL (01:02)
--- NOTE | 2025-01-13 06:07 | OB.VAGDELI_ITS ---
Assessment & Plan (1) Active labor at term: (2) History of total splenectomy: (3) Anemia in : QUALIFIERS: Trimester: third trimester Qualified Code(s): O99.013 - Anemia complicating , third trimester COMMENT: add Fe/stable (4) Pyelonephritis affecting : QUALIFIERS: Trimester: second trimester Qualified Code(s): O23.02 - Infections of kidney in , second trimester COMMENT: ceftriaxone x 2 days then keflex x 10 days, then daily keflex prophylaxis. (5) Cystic fibrosis carrier: COMMENT: FOB neg. 06/04 (6) Supervision of normal first : QUALIFIERS: Trimester: third trimester Qualified Code(s): Z34.03 - Encounter for supervision of normal first , third trimester COMMENT: [id number], TERESITA 12/29/24, girl Colbie BF Brenda (7) : QUALIFIERS: Weeks of gestation: 40 weeks Qualified Code(s): Z3A.40 - 40 weeks gestation of COMMENT: GBS Negative, LR NIPT Carrier Neg. Carrier for Cystic Fibrosis;FOB Karen Wilber negative, nl anatomy (8) Vaginal delivery: COMMENT: SM IAL 39 girl colbie Maternal Data Information TERESITA Calculator Estimated Delivery Date Method Current WG Current Estimate 01/07/25 Ultrasound #1 41w 0d Other Estimates 12/29/24 LMP (Certain) 42w 2d Vaginal Delivery Maternal Presentation Maternal Presentation: see assessment and plan Vaginal Delivery Information Procedure Performed: Spontaneous Vaginal Delivery Surgeon/Practitioner: Leonor Phillips Pre-Procedure Diagnosis: see assessment and plan Post-Procedure Diagnosis: same Type of anesthesia: Epidural Findings Description of procedure: Patient began pushing and delivered the head in the TREASURE presentation. The head was delivered atraumatically . The anterior and posterior shoulders delivered without complication followed by the rest of the infant and the infant was placed on the maternal abdomen. Delayed cord clamping was employed for approximately 60 seconds. Cord was clamped and cut and gentle traction was applied to the cord and the placenta delivered spontaneously immediately following it was noted to be intact with three-vessel cord. The perineum and vagina were inspected and noted to have no laceration. EBL was 100 cc. Patient and infant tolerated delivery well. Presentation: Vertex Placental Delivery Description: Spontaneous Specimen collected: Yes Description of specimen(s) removed: placenta Chemical Production Machine Operator odd piece checker: No Post Vaginal Deli Medications given after delivery: Other (pitocin) Complication Complications: No Multi Select Codes Urinary/Genital Urinary/Genital CPT Codes: 56324 Vaginal Delivery [facility]
--- NOTE | 2025-01-13 06:09 | DCINST_ITS ---
Discharge Instructions DC O2, CPAP, BIPAP needs Home O2 Discharge instructions: No Dressing / Incision Discharge Activity: Return to Normal Activity, May Not Drive (while taking narcotic pain medications.) and May Shower May resume sexual activity in: 4-6 weeks Dressing / Incision Call your doctor if your incision/area has: Continuous Slow Oozing, Sudden Increased Bleeding, Increased Pain/ Swelling, Increased Redness and Foul Smelling Discharge Follow Up Care Please Follow Up With: Leonor Phillips MD When: Call [phone] to make an appointment with your doctor in 6 weeks. If you had elevated blood pressure or 4th degree laceration, you will need to be seen in 2 weeks. Test Results: Test results from this visit will be discussed in further detail at your follow- up appointment, if applicable. Discharge Plan Admission Admit Date/Time: 01/12/25 23:29 Attending Provider: Leonor Phillips Primary Care Provider: Care Physician,Evelyn Primary Discharge Orders/Prescriptions Referrals / Follow Up: Care Physician,No Primary [Primary Care Provider] -
[2025-01-13] MEDS: Oxytocin 15 Units/NS 250ml 15 UNITS/250 ML IV.SOLN 334 UNITS IV (06:37)
[2025-01-13] MEDS: Oxytocin 15 Units/NS 250ml 15 UNITS/250 ML IV.SOLN 83 UNITS IV (07:34)
[2025-01-13] MEDS: Cefazolin 2 GM in 0.9% Normal Saline (100mL Bag) 100 ML IV (07:50)
[2025-01-14 04:05] VITALS: BP 100/72; PULSE 63; RESP 16; TEMP 36.8; O2SAT 97
--- NOTE | 2025-01-14 07:26 | PCM.PN.OB ---
Subjective Subjective Patient doing well without complaints. Tolerating PO. Ambulating and voiding without difficulty. feeding well. Denies chest pain, shortness of breath, calf pain/swelling, fevers, chills, lightheadedness. Objective Data Objective Data Vital Signs: Vital Signs Temp Pulse Resp BP Pulse Ox O2 Del Method 98.3 F 63 16 100/72 97 Room Air 01/14/25 04:05 01/14/25 04:05 01/14/25 04:05 01/14/25 04:05 01/14/25 04:05 01/14/25 04:05 Oxygen Delivery Method Room Air Weight: 151 lb Body Mass Index (BMI) 25.9 Intake & Output: Intake and Output for Last 24 Hours 01/12/25 01/13/25 01/14/25 23:59 23:59 23:59 Intake Total 2813.33 / 2813.33 Output Total 450 / 450 Balance 2363.33 / 2363.33 Lab / Micro Data 01/12/25 23:35 ROS Constitutional Constitutional: Reports systems reviewed and no addt'l complaints, except as documented Cardiovascular Cardiovascular: Reports systems reviewed and no addt'l complaints, except as documented Respiratory/Chest Respiratory/Chest: Reports systems reviewed and no addt'l complaints, except as documented Gastrointestinal Gastrointestinal: Reports systems reviewed and no addt'l complaints, except as documented Physical Exam Const alert, oriented x3 and no apparent distress HEENT Head and Scalp: atraumatic Resp normal respiratory effort GI soft to palpation and non-tender Bimanual Exam - Vag & Uterus: uterus non-tender Uterus Palpation: uterus fundus firm (below Umbilicus) Assessment & Plan (1) Vaginal delivery: COMMENT: SM IAL 39 girl colbie PLAN: Plan s/p PPD # 1 1. routine post delivery care 2. breast feeding- support given 3. rh positive 4. rubella immune
[2025-01-14 08:31] VITALS: BP 103/62; PULSE 71; RESP 20; TEMP 36.7; O2SAT 97
== END 2025-01-14 10:55 | disposition home or self-care (01) | DRG 560 ==
LOC: WP 01-13 00:04
PROVIDERS: Admitting Provider Obstetrics & Gynecology; Referring Provider Obstetrics & Gynecology; Visit Provider Obstetrics & Gynecology
DX: O48.0 Post-term pregnancy (principal); Z37.0 Single live birth; D64.9 Anemia, unspecified; O99.284 Endocrine, nutritional and metabolic diseases complicating childbirth; O99.02 Anemia complicating childbirth; Z3A.40 40 weeks gestation of pregnancy; Z87.891 Personal history of nicotine dependence; Z90.81 Acquired absence of spleen; Z14.1 Cystic fibrosis carrier
CPT/HCPCS: 59025; 59050; 85025; 86780; 86850; 86900; 86901; 99221; G0378

== ENCOUNTER → 2025-02-25 | Outpatient (CLI) | payer MEDICAID, SELFPAY | END | disposition home or self-care (01) | LOC: LABSPEC 11:27 | PROVIDERS: Visit Provider Advanced Practice Midwife | DX: Z12.4 Encounter for screening for malignant neoplasm of cervix (principal) | CPT/HCPCS: 88175; G0145 ==